=== PATIENT | male | born 1990 | race Caucasian/White ===

== ENCOUNTER 2018-10-08 13:19 | Emergency (ER) | payer OTHER ==
[~2018-10-08] VITALS: Ht 182.9 cm; Wt 74.8 kg
[~2018-10-08 13:19] MED LIST: CYMBALTA60 MG PO; MACROBID 100 M100 MG PO; ONDANSETRON ODT4 MG SL; PROMETHAZINE HC25 M1 PO
[2018-10-08] MEDS ORDERED: BACLOFEN10 MG PO (15:25)
[2018-10-08] MEDS ORDERED: KETOROLAC TROME10 MG PO (15:25)
== END 2018-10-08 15:34 | disposition home or self-care (01) ==
LOC: ED 13:19
DX: M99.01 Segmental and somatic dysfunction of cervical region (principal); F32.9 Major depressive disorder, single episode, unspecified; F17.200 Nicotine dependence, unspecified, uncomplicated; Z79.899 Other long term (current) drug therapy; V89.2XXA Person injured in unspecified motor-vehicle accident, traffic, initial encounter
CPT/HCPCS: 99283

== ENCOUNTER 2020-02-21 11:03 | Observation (INO) | payer OTHER ==
[~2020-02-21] VITALS: Ht 180.3 cm; Wt 90.7 kg
[~2020-02-21 11:03] MED LIST changes: +BACLOFEN10 MG PO; +KETOROLAC TROME10 MG PO
--- NOTE | 2020-02-21 16:49 | NUR ---
1640: PT ARRIVED VIA STRECHER. HE STATES HIS BREATHING FEELS "ALRIGHT" AND BETTER THAN IT HAS IN TWO WEEKS. VSS. PT ORIENTED TO HIS ROOM AND THE USE OF HIS CALL RESTREPO.
--- NOTE | 2020-02-21 16:53 | NUR ---
ASSESSMENT COMPLETED, HISTORY OBTAINED. SIGNIFICANT OTHER AT BEDSIDE. PATIENT DENIES PAIN AND OTHER NEEDS AT THIS TIME. CALL LIGHT IN REACH, BED RAILS UP X2.
--- NOTE | 2020-02-21 17:35 | NUR ---
MED REC COMPLETE
--- NOTE | 2020-02-21 18:13 | NUR ---
SPEECH SCREENED PATIENT; PT REPORTS BEING AT BASELINE. BASIC NEEDS/WANTS ABLE TO BE COMMUNICATED. FULL EVALUATION TO BE COMPLETED IF PT DEMONSTRATES DECLINE OR CHANGE IN STATUS; PT REFUSES EVALUATION AT THIS TIME D/T FUNCTIONAL COMMUNICATION ABILITIES INTACT.
--- NOTE | 2020-02-21 18:14 | NUR ---
INSTRUCTED ON USE OF INCENTIVE SPIROMETER. GOAL ON INCENTIVE SPIROMETER SET TO 1500, ENCOURAGED TO GET HIGHER IF ABLE. PATIENT DEMONSTRATES PROPER USE OF INCENTIVE SPIROMETER UP TO 2500 MULTIPLE TIMES. INFORMED TO TRY TO COMPLETE TREATMENT EVERY 1-2 HOURS A MINIMUM OF 10 TIMES. VERBALIZES UNDERSTANDING. SIGNIFICANT OTHER AT BEDSIDE ALSO EDUCATED ON IMPORTANCE OF PATIENT DEEP BREATHING.
--- NOTE | 2020-02-21 19:26 | NUR ---
SHIFT REPORT RECEIVED FROM ODESSA MIRELES. PT RESTING IN BED, WATCHING TV. S.O. AT BEDSIDE. ICE WATER PROVIDED. NO OTHER NEEDS AT THIS TIME. CALL LIGHT IN REACH.
--- NOTE | 2020-02-21 20:00 | NUR ---
SCHEDULED MED PROVIDED. IV CDI, WNL, FLUSHED WELL. NO NEEDS AT THIS TIME. CALL LIGHT IN REACH.
--- NOTE | 2020-02-21 20:08 | NUR ---
PATIENT RESTING IN BED, CALL LIGHT IN REACH. BED ELEVATED, PATIENT STATES HE PREFERRED IT TO BE ELEVATED. BED LOWERED FOR SAFETY PURPOSES. RN AT BEDSIDE.
--- NOTE | 2020-02-21 20:21 | NUR ---
DIALYSIS CHIEF EQUIPMENT TECHNICIAN ROUNDING NOTE. PT RESTING IN BED AWAKE WITH FRIEND AT BEDSIDE. FRIEND STATES THAT SHE PLANS TO STAY THE NIGHT, DISCUSSED COUCH AND LINENS AVAILBLE. UNDERSTANDING STATED. PT DENIES QUESTIONS OR CONCERNS AT THIS TIME. AGREES TO USE CALL LIGHT FOR NEEDS. WHITE BOARD UPDATED.
--- NOTE | 2020-02-21 21:02 | NUR ---
ASSESSMENT COMPLETED. RONCHI IN ALL LOBES. NO EDEMA NOTED. OCCASSIONAL DRY COUGH. IV WNL, CDI, FLUSHED WELL. NO OTHER NEEDS AT THIS TIME. CALL LIGHT IN REACH.
--- NOTE | 2020-02-21 22:30 | NUR ---
PT RESTING IN BED, WATCHING TV. S.O. IN ROOM. NO NEEDS AT THIS TIME. CALL LIGHT IN REACH.
--- NOTE | 2020-02-22 00:24 | NUR ---
PT RESTING IN BED, EYES CLOSED. RR EVEN, UNLABORED. CALL LIGHT IN REACH. S.O. IN ROOM.
--- NOTE | 2020-02-22 00:49 | NUR ---
PT COUGHING IN ROOM, SPITTING UP SMALL AMOUNT OF MUCOUS WITHOUT BLOOD. SPO2 98%. PT STATES HE IS SOB. RT CALL ED FOR ASSESSMENT AND BREATHING MEDICATION. CALL LIGHT IN REACH.
--- NOTE | 2020-02-22 02:14 | NUR ---
PATIENT RESTING IN BED, SIGNIFICANT OTHER IN ROOM. RN AT BEDSIDE.
--- NOTE | 2020-02-22 02:19 | NUR ---
SCHEDULED MED PROVIDED. PT RESTING IN BED, NO COUGHING RIGHT NOW. PT DENIES PAIN. IV WNL, CDI, FLUSHED WELL. RONCHI IN ALL LOBES. S.O. IN ROOM. ASSESSMENT COMPLETED. NO OTHER NEEDS AT THIS TIME. CALL LIGHT IN REACH.
--- NOTE | 2020-02-22 04:20 | NUR ---
PT RESTING IN BED, WATCHING TV. NO NEEDS AT THIS TIME. CALL LIGHT IN REACH.
--- NOTE | 2020-02-22 05:41 | NUR ---
PATIENT RESTING IN BED, AWAKES BRIEFLY FOR VITALS AND GOES BACK TO SLEEP. RN NOTIFIED OF NO NEW URINE OUTPUT AT THIS TIME. CALL LIGHT IN REACH.
--- NOTE | 2020-02-22 05:46 | NUR ---
PT RESTING IN BED, EYES CLOSED RR EVEN, UNLABORED. CALL LIGHT IN REACH.
--- NOTE | 2020-02-22 06:03 | NUR ---
PT SLEPT OFF AND ON THIS SHIFT. PT HAD SEVERAL EPISODES OF COUGHING WITH SMALL AMOUNTS OF YELLOW SPUTUM PRODUCED. PT TOLERATED MEDICATIONS WELL. PT DENIES PAIN. IV WNL, FLUSHED WELL. RONCHI IN ALL LOBES. SOB DURING COUGHING EPISODES, 1 TREATMENT RECEIVED FROM RT.
--- NOTE | 2020-02-22 07:52 | NUR ---
ORDERED HIS BREAKFAST AND ALSO HIS GIRLFRIENDS. SET HIM FOR A SHOWER. ALSO EMPTIED HIS URINAL. PATIENT IS TRYING TO SLEEP.
--- NOTE | 2020-02-22 08:35 | NUR ---
In room to hang IV antibiotic. Patient states antibiotic has been making him nauseous and states he is already nauseous this morning. Requests medication prior to administration of antibiotic.
--- NOTE | 2020-02-22 09:01 | NUR ---
Dr. Ortiz notified of patient complaint of nausea.
--- NOTE | 2020-02-22 09:24 | NUR ---
ASSESSMENT COMPLETED. TAKES MEDICATIONS VERBALIZES FEELING TIRED AT THIS TIME. ZOFRAN ADMINISTERED PRIOR TO INITIATING IV UNASYN AND PATIENT TAKING MUCINEX. ICE WATER PROVIDED SIGNIFICANT OTHER AT BEDSIDE. BOTH DENY OTHER NEEDS AT THIS TIME. CALL LIGHT IN REACH, BED RAILS UP X2.
--- NOTE | 2020-02-22 10:00 | NUR ---
PATIENT TOOK A SHOWER. INDEPENDENT. PATIENT WOULD LIKE TO SLEEP. WILL COME BACK LATER TO CHANGE BED LINENS.
[2020-02-22] MEDS ORDERED: PROAIR HFA8.5 GM INH (10:42)
[2020-02-22] MEDS ORDERED: AUGMENTIN 875-1 EACH PO (14:31)
[2020-02-22] MEDS ORDERED: NICOTINE PATCH1 EACH TD (14:32)
--- NOTE | 2020-02-22 14:39 | NUR ---
ASSESSMENT COMPLETED AT THIS TIME. NO CHANGES FROM THIS AM. CONTINUES ON ROOM AIR. NO SHORTNESS OF BREATH.
== END 2020-02-22 15:24 | disposition home or self-care (01) ==
LOC: ED 11:03 → MS 11:04
PROVIDERS: ADMIT Internal Medicine
DX: J85.0 Gangrene and necrosis of lung (principal); F17.210 Nicotine dependence, cigarettes, uncomplicated; Z71.6 Tobacco abuse counseling
CPT/HCPCS: 36415; 71260; 80053; 85025; 85651; 86038; 86140; 86431; 86703; 87070; 87205; 87327; 94640; 96365; 96366; 96375; 96376; 99285-25; 99406; G0378; J0295; J2405; Q9967

== ENCOUNTER 2020-06-23 14:49 | Inpatient (IN) | payer OTHER ==
[~2020-06-23] VITALS: Ht 180.3 cm; Wt 102.1 kg
--- OUTSIDE RECORDS SUMMARY | ~2020-06-23 | XMS | Encounter Summary ---
Demographics + + + | Address | [address] | | | [place] [address] | + + + | Home Phone | | + + + | Preferred Language | Unknown | + + + | Marital Status | Single | + + + | Congregational Affiliation | Unknown | + + + | Race | White | + + + | Ethnic Group | Not or | + + + Author + + + | Author | [facility] | | | and [place] | + + + | Organization | [facility] | | | and [place] | + + + | Address | Unknown | + + + | Phone | Unavailable | + + + Support + + +---------+ + | Name | Relationship | Address | Phone | + + +---------+ + | Marcos Morgan | ECON | Unknown | | + + +---------+ + Care Team Providers + +------+ + | Care Rabbit Dresser Name | Role | Phone | + +------+ + | Myrna Mejia MD | PCP | | + +------+ + Reason for Visit + + + | Reason | Comments | + + + | Follow-up | Virtual Visit | + + + Encounter Details +--------+ + + + + | Date | Type | Department | Care Team | Description | +--------+ + + + + | 03/31/ | Virtual | [facility] | Elodia Guerra MD | High risk medication | | 2019 | Office | HEMATOLOGY AND | [address] | use (Primary Dx); | | | Visit | ONCOLOGY [address] [place] | Mediastinal large | | | | [address] | [address] | B-cell lymphoma of | | | | [place] | | lymph nodes of | | | | [address] | | multiple regions | | | | [phone] | | (HCC) | +--------+ + + + + Social History + + + +--------+ + | Tobacco Use | Types | Packs/Day | Years | Date | | | | | Used | | + + + +--------+ + | Former Smoker | Cigarettes | 1 | 7 | Started: 02/24/2020 | + + + +--------+ + + +------+---+---+ | Smokeless Tobacco: | Chew | | | | Current User | | | | + +------+---+---+ + + | Comments: quit 02/22/2020 / chews 1 can tobacco/week | + + + + +---------+ + | Alcohol Use | Drinks/Week | oz/Week | Comments | + + +---------+ + | Not Currently | | | | + + +---------+ + + + + | Sex Assigned at | Date Recorded | | | | + + + | Not on file | | + + + documented as of this encounter Progress Notes Elodia Guerra MD - 03/31/2020 4:30 PM PDTFormatting of this note might be different from t he original. [facility] Hematology & Oncology Oncology Progress Note Patient Name: ASAD LONGO Date of : 1990 Age: 29 y.o. 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 Asad Longo is a pleasant 29 y.o. male with no significant past medical history who began experiencing cough, pleuritic chest pain, dyspnea on exertion and URI symptoms be ginning October 2019. He was initially treated with antibiotics by his PCP with minimal im provement of symptoms. CT scan of the chest on February 21, 2020 revealed a large cavitary lesi on with mediastinal and axillary lymphadenopathy . The patient also experienced an unintent ional 30 pound weight loss since September 2019. He was a smoker from 2012 approximately 1/2 to 1 pack/day through February 2020. The patient was referred to Dr. Tali Joseph of pulmonary medicine. She recommended a PET scan that was completed on March 16, 2020 revealing an FDG avid right upper lobe pulmon christoph mass measuring 6.0 x 5.7 cm with an SUV of 30.1. The right middle lobe appeared atelect atic secondary to compression of the bronchus from the large central mass. There was extens willis conglomerate lymphadenopathy noted throughout the mediastinum, bilateral hilar areas and bilateral axillary areas. For example, there was a superior left hilar lymph node measurin g 3.2 x 2.5 cm with an SUV of 26.4, conglomerate anterior mediastinal lymphadenopathy measur ing 3.3 x 5.1 cm with an SUV of 27.9, 2 FDG avid pericardial lymph nodes, a lateral pericard ial node and a subdiaphragmatic lymph node partially necrotic measuring 2.3 x 2.4 cm with an SUV of 23.4. There was conglomerate right supraclavicular lymph nodes, centrally necrotic measuring 2.3 x 3.1 cm with an SUV of 20.2, and a conglomerate left supraclavicular lymph no de measuring 1.9 x 2.2 cm with an SUV of 26.5. There was no adenopathy or visceral lesions within the abdomen and pelvis. COVID-19 testing on March 19, 2020 was negative. On March 20, 2020 the patient underwent excisional biopsy of a right deep cervical lymph nod e. Pathology revealed large atypical B lymphocytes was consistent with diffuse large B-cell lymphoma, positive for CD20, CD23, BCL 6, CD79a, and PAX 5. Ki-67 was 60%. The morphologi c and immunohistochemical findings were in favor of a primary mediastinal large B-cell lymph geovanna. Pathology was read by board-certified hematopathologists, Dr. Franko Davis and Dr. Gloria Lundberg. 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 Service was provided [id number] with the patient via interactive videoconferencing Coding will be based on Medical Decision Making. You have chosen to receive care through the use of telemedicine. Telemedicine enables healt h care providers at different locations to provide safe, effective and convenient care throu gh the use of technology. As with any health care service, there are risks associated with t he use of telemedicine, including equipment failure, poor image resolution and information s ecurity issues. Do you understand the risks and benefits of telemedicine as I have explained them to you? " Yes" Have your questions regarding telemedicine been answered? "Yes" Participant is currently at home Do you consent to the use of telemedicine in your medical care today? Yes. Last question, I need to confirm where are you physically located right now? Answer: Patient confirms they are located in a state where IElodia MD am licensed. The patient presents today utilizing telemedicine given the current coronavirus pandemic. Asad presents today utilizing telemedicine to discuss the results of his recent biopsy. A t today's visit, he feels well. He reports no new or unusual symptoms. He continues to hav e occasional shortness of breath and cough but improved from prior. He continues to report some fatigue. He has not lost any additional weight since his last visit. The patient has no other complaints today other than that listed in the review of systems. Medical History No Known Allergies Past Medical History: Diagnosis Date Chronic cough 2019 Chronic headaches 2 x's per month History of pneumonia Lymphoma involving lung (HCC) 2019 right lung mass Past Surgical History: Procedure Laterality Date LYMPH NODE BIOPSY Right 03/20/2020 Procedure: BIOPSY DEEP CERVICAL NODE; Surgeon: She Huang DO; Location: [facility] OR Family History Problem Relation Age of Onset Bone Cancer Other Lung cancer Paternal Grandfather Cancer Paternal Grandmother Social History Socioeconomic History Marital status: Single Spouse name: Not on file Number of children: Not on file Years of education: Not on file Highest education level: Not on file Occupational History Not on file Social Needs Financial resource strain: Not on file Food insecurity Worry: Not on file Inability: Not on file Transportation needs Medical: Not on file Non-medical: Not on file Tobacco Use Smoking status: Former Smoker Packs/day: 1.00 Years: 7.00 Pack years: 7.00 Types: Cigarettes Start date: 02/24/2020 Smokeless tobacco: Current User Types: Chew Tobacco comment: quit 02/22/2020 / chews 1 can tobacco/week Substance and Sexual Activity Alcohol use: Not Currently Drug use: Yes Frequency: 7.0 times per week Types: Marijuana Comment: edibles and smoking Sexual activity: Not on file Lifestyle Physical activity Days per week: Not on file Minutes per session: Not on file Stress: Not on file Relationships Social connections Talks on phone: Not on file Gets together: Not on file Attends gnosticism service: Not on file Active member of club or organization: Not on file Attends meetings of clubs or organizations: Not on file Relationship status: Not on file Intimate partner violence Fear of current or ex partner: Not on file Emotionally abused: Not on file Physically abused: Not on file Forced sexual activity: Not on file Other Topics Concern Not on file Social History Narrative Not on file Patient's medical history above reviewed and updated on 03/31/2020 Medications Current Outpatient Medications Medication Sig Dispense Refill albuterol (VENTOLIN HFA) 90 mcg/puff inhaler Inhale 2 puffs into the lungs every 6 hour s as needed for Wheezing. albuterol 2.5 mg/3 mL nebulizer solution benzonatate (TESSALON) 100 mg capsule Take 100 mg by mouth 3 times daily as needed for Cough. famotidine (PEPCID) 20 mg tablet Daily. HYDROcodone-acetaminophen (NORCO) 5-325 mg per tablet Take 1 tablet by mouth every 6 ho urs as needed for Pain. 30 tablet 0 naproxen (NAPROSYN) 500 mg tablet Take 500 mg by mouth 2 times daily (with breakfast & dinner). NICOTINE TD Place onto the skin. ondansetron (ZOFRAN ODT) 4 mg disintegrating tablet Take 1 tablet by mouth every 6 hour s as needed for Nausea. 20 tablet 0 ondansetron (ZOFRAN) 4 mg tablet 3 times daily. No current facility-administered medications for this visit. Facility-Administered Medications Ordered in Other Visits Medication Dose Route Frequency Provider Last Rate Last Dose albuterol 2.5 mg/3 mL nebulizer solution Medications reviewed and updated on 03/31/2020 Review of Systems Review of Systems Constitutional: Positive for fatigue. Negative for fever. HENT: Negative. Eyes: Negative for visual disturbance. Respiratory: Positive for cough and shortness of breath. Cardiovascular: Negative. Gastrointestinal: Negative. Endocrine: Negative for polydipsia and polyphagia. Genitourinary: Negative. Musculoskeletal: Negative. Skin: Negative. Neurological: Negative. Hematological: Positive for adenopathy (Bilateral cervical and axillary). Does not bruise/b leed easily. Psychiatric/Behavioral: Negative. Physical Exam There were no vitals taken for this visit. ECOG Performance Status: 0 Physical Exam Labs and Imaging No results found for this or any previous visit (from the past 24 hour(s)). Assessment Mr. Asad Longo is a pleasant 29 y.o. 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 PET scan on March 16, 2020 revealed a right upper lobe pulmonary mass measuring 6.0 x 5.7 cm with an SUV of 30.1, bilateral cerv ical, extensive conglomerate mediastinal, bilateral hilar, and bilateral axillary lymph lymp hadenopathy. There was also a subdiaphragmatic lymph node measuring 2.3 x 2.4 cm with an GAMING V of 23.4. I had a long discussion with Asad regarding the results of his pathology and once again hi s imaging studies that have been completed today I explained to him that his pathology is mo st consistent with a diffuse large B-cell lymphoma rather than Hodgkin lymphoma. The patient will need to undergo a bone marrow biopsy which can be arranged for prior to be ginning treatment. As the treatment for primary mediastinal B-cell lymphoma comprises inpat ient chemotherapy (R EPOCH), bone marrow biopsy can be done during his admission prior to his first cycle of chemotherapy. We discussed the logistics of, rational for, and possible complications it might arise from bone marrow biopsy done under anxiolysis. He agrees to pr oceed. He did admit to some anxiety over the procedure and is wondering whether this can be done with conscious sedation. If necessary, this will be arranged for with interventional radiology. The patient is still undecided regarding whether or not he wishes to consider fertility pre servation. He already has 2 children. He will call me with his decision regarding this. I explained to him that time is of the essence and that chemotherapy should be started RAN g iven the extent of his disease. He is already scheduled for Mediport to be placed tomorrow by interventional radiology. I discussed the rationale for, logistics of and common side effect profile of the R-EPOCH r egimen which include, but are not limited to, infusion related symptoms, tumor lysis syndrom e, skin reactions including Catracho-Gary syndrome, arrhythmias, myelosuppression, neutrope holly fever, increased risk of infections, mucositis, stomatitis, nausea and vomiting, anorexi a, diarrhea, bladder toxicity, hemorrhagic cystitis, renal toxicity, hepatotoxicity, alopeci a, cardiotoxicity, pulmonary toxicity, increased risk of secondary malignancies including AM L and MDS and bladder cancer, infertility, azoospermia, immunosuppression, SIADH, vesication , hyperpigmentation of nails, red-orange discoloration of the urine, allergic reactions, samantha ropathy, constipation, delay of gastric emptying, increase in serum glucose from prednisone, weight gain and increased appetite, among others. We discussed the side effect profile of filgrastim, pegfilgrastim and biosimilars which inc lude, but are not limited to myalgias, arthralgias, pain at injection site, transaminitis, f ever, allergic reactions, increased LDH, alkaline phosphatase, neutrophilia and splenic enla rgement and splenic rupture. The patient agreed to proceed forth. Plan At the end of today's discussion, the patient expressed understanding and willingness to pr oceed with the plan as outlined below: 1. He will get a Mediport placed tomorrow. 2. We will endeavor to begin him on chemotherapy RAN. Admission will be required for this . 3. Prescriptions for allopurinol, antiemetics, EMLA cream, prednisone and Bactrim DS were s ent to his pharmacy. Additional teaching will be provided by our general oncology nurse lior tolbert. 4. He will call me tomorrow with his decision regarding fertility preservation. 5. The patient was counseled on the signs and symptoms of an ominous hematologic/oncologic process, and he knows to call if these were to occur. 6. The patient was counseled on the signs and symptoms that may indicate progression/recurr ence of his cancer, and he knows to call if this were to occur. All the patient's questions were answered to his satisfaction. The patient is to call with any questions or concerns. Elodia Guerra MD [facility] Hematology & Oncology 03/31/2020 Portions of this chart may have been created with voice recognition software. Occasional wr mak-word or "sound-alike" substitutions may have occurred, even after review, due to the inh erent limitations of voice recognition software. Please read the chart carefully and recogni ze, using context, where these substitutions have occurred. Personal communication is reques akbar for any clarifications. documented in this encou nter Miscellaneous Notes Addendum Note - Elodia Guerra MD - 03/31/2020 4:30 PM PDT Addended by: ELODIA GUERRA on: 03/31/2020 06:03 PM Modules accepted: Orders documented in this enc ounter Plan of Treatment +--------+ + + + + | Date | Type | Specialty | Care Team | Description | +--------+ + + + + | 06/29/ | Appointment | Infusion Therapy | Elodia Guerra MD | | | 2019 | | | [address] | | | | | | [place] | | | | | | [phone] | | | | | | | | +--------+ + + + + | 06/29/ | Office | Oncology | Elodia Guerra MD | | | 2019 | Visit | | [address] | | | | | | [place] | | | | | | [address] | | | | | | | | | | | | Marilou Mcmullen, | | | | | | PUMP AND BLOWER OPERATOR [address] | | | | [address] | | | | | | [place] [address] | | | | | | [phone] | | | | | | | | +--------+ + + + + | 06/29/ | Appointment | Infusion Therapy | Elodia Guerra MD | | | 2019 | | | [address] | | | | | | [place] | | | | | | [address] | | | | | | | | +--------+ + + + + | 07/14/ | Office | Otolaryngology | She Huang | | | 2019 | Visit | | DO Sophia Canela | | | | | | [address] | | | | | | [place] [address] | | | | | | [phone] | | | | | | | | +--------+ + + + + | 07/20/ | Appointment | Infusion Therapy | Elodia Guerra MD | | | 2019 | | | [address] | | | | | | [place] | | | | | | [address] | | | | | | | | +--------+ + + + + | 07/20/ | Office | Oncology | Elodia Guerra MD | | | 2019 | Visit | | [address] | | | | | | [place] | | | | | | [address] | | | | | | | | +--------+ + + + + | 07/20/ | Appointment | Infusion Therapy | Elodia Guerra MD | | | 2019 | | | [address] | | | | | | [place] | | | | | | [address] | | | | | | | | +--------+ + + + + | 08/17/ | Appointment | Infusion Therapy | Elodia Guerra MD | | | 2019 | | | [address] | | | | | | [place] | | | | | | [address] | | | | | | | | +--------+ + + + + | 08/17/ | Office | Oncology | Elodia Guerra MD | | | 2020 | Visit | | [address] | | | | | | [place] | | | | | | [address] | | | | | | | | +--------+ + + + + documented as of this encounter Visit Diagnoses + + | Diagnosis | + + | High risk medication use - Primary Encounter for long-term (current) use of other | | medications | + + | 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
--- OUTSIDE RECORDS SUMMARY | ~2020-06-23 | XMS | Encounter Summary ---
Demographics + + + | Address | [address] | | | [place] [address] | + + + | Home Phone | | + + + | Preferred Language | Unknown | + + + | Marital Status | Single | + + + | Lutheran Affiliation | Unknown | + + + | Race | White | + + + | Ethnic Group | Not or | + + + Author + + + | Author | [facility] | | | and [place] | + + + | Organization | [facility] | | [...] Team Providers + +------+ + | Care Auction Assistant Name | Role | Phone | + +------+ + | Myrna Mejia MD | PCP | | + +------+ + Encounter Details +--------+ + + + + | Date | Type | Department | Care Team | Description | +--------+ + + + + | 04/03/ | Orders Only | [facility] | Wilton Jeff MD | Mediastinal large | | 2019 | | HEMATOLOGY AND | [address] | B-cell lymphoma of | | | | ONCOLOGY [address] | [place], [place] | lymph nodes of | | | | [address] | [address] | multiple regions | | | | [place], [place] | | (HCC) (Primary Dx) | | | | [address] | | | | | | [phone] | | | +--------+ + + + + Social [...] + + documented as of this encounter Plan of Treatment +--------+ + + + + | Date | Type | Specialty | Care Team | Description | +--------+ + + + + | 06/29/ | Appointment | Infusion Therapy | Wilton Jeff MD | | | 2019 | | | [address] | | | | | | [place] | | | | | | [address] | | | | | | | | +--------+ + + + + | 06/29/ | Office | Oncology | Wilton Jeff MD | | | 2019 | Visit | | [address] | | | | | | [place] | | | | | | [address] | | | | | | | | | | | | Marilou Mcmullen, | | | | | | PRINTING SCREEN ASSEMBLER [address] | | | | | | [address] | | | | | | [place] [address] | | | | | | [phone] | | | | | | | | +--------+ + + + + | 06/29/ | Appointment | Infusion Therapy | Wilton Jeff MD | | | 2019 | | | [address] | | | | | | [place] | | | | | | [address] | | | | | | | | +--------+ + + + + | 07/14/ | Office | Otolaryngology | She Huang | | | 2019 | Visit | | DO Sophia Canela | | | | | | [place] [address] | | | | | | [place] [address] | | | | | | [phone] | | | | | | | | +--------+ + + + + | 07/20/ | Appointment | Infusion Therapy | Wilton Jeff MD | | | 2019 | | | [address] | | | | | | [place] | | | | | | [address] | | | | | | | | +--------+ + + + + | 07/20/ | Office | Oncology | Wilton Jeff MD | | | 2019 | Visit | | [address] | | | | | | [place] | | | | | | [address] | | | | | | | | +--------+ + + + + | 07/20/ | Appointment | Infusion Therapy | Wilton Jeff MD | | | 2019 | | | [address] | | | | | | [place] | | | | | | [address] | | | | | | | | +--------+ + + + + | 08/17/ | Appointment | Infusion Therapy | Wilton Jeff MD | | | 2019 | | | [address] | | | | | | [place] | | | | | | [address] | | | | | | | | +--------+ + + + + | 08/17/ | Office | Oncology | Wilton Jeff MD | | | 2020 | Visit | | [address] | | | | | | [place] | | | | | | [address] | | | | | | | | +--------+ + + + + documented as of this encounter Visit Diagnoses + + | Diagnosis | + + | 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
--- OUTSIDE RECORDS SUMMARY | ~2020-06-23 | XMS | Encounter Summary ---
Demographics + + + | Address | [address] | | | [place] [address] | + + + | Home Phone | | + + + | Preferred Language | Unknown | + + + | Marital Status | Single | + + + | Anabaptism Affiliation | Unknown | + + + | Race | White | + + + | Ethnic Group | Not or | + + + Author + + + | Author | [facility] | | | and [place] | + + + | Organization | [facility] | | | and [...] Team Providers + +------+ + | Care Recruiting Intern Name | Role | Phone | + +------+ + PCP | Unavailable | + +------+ + Encounter Details +--------+ + + + + | Date | Type | Department | Care Team | Description | +--------+ + + + + | 03/04/ | Imaging | [facility] | Provider, | | | 2019 | Exam | [facility] | MD [address] | | | | | IM[address] | [address] | | | | | [address] | [place] [address] | | | | | [place] [address] | | | | | | [phone] | | | +--------+ + + + + Social History + +-------+ +--------+------+ | Tobacco Use | Types | Packs/Day | Years | Date | | | | | Used | | + +-------+ +--------+------+ | Never Assessed | | | | | + +-------+ +--------+------+ + + + | Sex Assigned at [...] [place] | | | | | | [address] | | | | | | | | +--------+ + + + + | 06/29/ | Office | Oncology | Wilton Jeff MD | | | 2019 | Visit | | [address] | | | | | | [place] | | | | | | [address] | | | | | | | | | | | | Marilou Mcmullen, | | | | | | [employer] [address] | | | | | [address] | | | | | | [place] [address] | | | | | | [phone] | | | | | | | | +--------+ + + + + | 06/29/ | Appointment | Infusion Therapy | Wilton Jeff MD | | | 2019 | | | [address] | | | | | | [place] | | | | | | [address] | | | | | | | | +--------+ + + + + | 07/14/ | Office | Otolaryngology | She Huang | | | 2019 | Visit | | DO Sophia Canela | | | | | | [place] [address] | | | | | | [place] [address] | | | | | | [phone] | | | | | | | | +--------+ + + + + | 07/20/ | Appointment | Infusion Therapy | Wilton Jeff MD | | | 2019 | | | [address] | | | | | | [place] | | | | | | [address] | | | | | | | | +--------+ + + + + | 07/20/ | Office | Oncology | Wilton Jeff MD | | | 2019 | Visit | | [address] | | | | | | [place] | | | | | | [address] | | | | | | | | +--------+ + + + + | 07/20/ | Appointment | Infusion Therapy | Wilton Jeff MD | | | 2019 | | | [address] | | | | | | [place] | | | | | | [address] | | | | | | | | +--------+ + + + + | 08/17/ | Appointment | Infusion Therapy | Wilton Jeff MD | | | 2019 | | | [address] | | | | | | [place] | | | | | | [address] | | | | | | | | +--------+ + + + + | 08/17/ | Office | Oncology | Wilton Jeff MD | | | 2019 | Visit | | [address] | | | | | | [place], [place] | | | | | | [address] | | | | | | | | +--------+ + + + + documented as of this encounter Procedures + +--------+ + + + | Procedure Name | Priori | Date/Time | Associated Diagnosis | Comments | | | ty | | | | + +--------+ + + + | XR CHEST 2 VIEWS | Routin | 02/20/2020 | | Results for this | | | e | 12:00 AM | | procedure are in the | | | | PDT | | results section. | + +--------+ + + + documented in this encounter Results XR Chest 2 Vws (02/20/2020 12:00 AM PDT) + + | Specimen | + + | | + + + + + | Narrative | Performed At | + + + | External films for comparison only | [facility] | | | | | No results will be in the chart. | | + + + + +---------+ + + | Performing | Address | City/State/Zipcode | Phone Number | | Organization | | | | + +---------+ + + | [facility] | | | | + +---------+ + + documented in this encounter Visit Diagnoses Not on filedocumented in this encounter"
--- OUTSIDE RECORDS SUMMARY | ~2020-06-23 | XMS | Encounter Summary ---
Demographics + + + | Address | [address] | | | [place] [address] | + + + | Home Phone | | + + + | Preferred Language | Unknown | + + + | Marital Status | Single | + + + | Christian Affiliation | Unknown | + + + | Race | White | + + + | Ethnic Group | Not or | + + + Author + + + | Author | [facility] | | | and [place] | + + + | Organization | [facility] | | | [...] Team Providers + +------+ + | Care Secretary Of Police Name | Role | Phone | + +------+ + | Myrna Mejia MD | PCP | | + +------+ + Encounter Details +--------+ + + + + | Date | Type | Department | Care Team | Description | +--------+ + + + + | 06/08/ | Orders Only | [facility] | Wilton Jeff MD | | | 2020 | | HEMATOLOGY AND | [address] | | | | | ONCOLOGY [address] | [place] | | | | | [address] | [address] | | | | | [place] | | | | | | [address] | | | | | | [phone] | | | +--------+ + + + [...] Tobacco: | Chew | | | | Former User | | | | + +------+---+---+ [...] + + documented as of this encounter Functional Status + + + + | Functional Status | Response | Date of Assessment | + + + + | Are you deaf or do you have serious | No | 05/24/2020 | | difficulty hearing? | | | + + + + | Are you blind or do you have serious | No | 05/24/2020 | | difficulty seeing, even when wearing | | | | glasses? | | | + + + + | Do you have serious difficulty walking or | No | 05/24/2020 | | climbing stairs? (5 years old or older) | | | + + + + | Do you have difficulty dressing or bathing? | No | 05/24/2020 | | (5 years old or older) | | | + + + + | Because of a physical, mental, or emotional | No | 05/24/2020 | | condition, do you have difficulty doing | | | | errands alone such as visiting a doctor's | | | | office or shopping? [15 years old or | | | | older)] | | | + + + + + + + + | Cognitive Status | Response | Date of Assessment | + + + + | Because of a physical, mental, or emotional | No | 05/24/2020 | | condition, do you have serious difficulty | | | | concentrating, remembering, or making | | | | decisions? (5 years old or older) | | | + + + + documented as of [...] [place] | | | | | | [address] | | | | | | | | +--------+ + + + + | 06/29/ | Office | Oncology | Wilton Jeff MD | | | 2019 | Visit | | [address] | | | | | | [place] | | | | | | [address] | | | | | | | | | | | | Marilou Mcmullen, | | | | | | ONLINE MARKETER [address] | | | | | | [address] | | | | | | [place] [address] | | | | | | [phone] | | | | | | | | +--------+ + + + + | 06/29/ | Appointment | Infusion Therapy | Wilton Jeff MD | | | 2019 | | | [address] | | | | | | [place] | | | | | | [address] | | | | | | | | +--------+ + + + + | 07/14/ | Office | Otolaryngology | She Huang | | | 2019 | Visit | | DO Sophia Canela | | | | | | [place] [address] | | | | | | [place] [address] | | | | | | [phone] | | | | | | | | +--------+ + + + + | 07/20/ | Appointment | Infusion Therapy | Wilton Jeff MD | | | 2019 | | | [address] | | | | | | [place] | | | | | | [address] | | | | | | | | +--------+ + + + + | 07/20/ | Office | Oncology | Wilton Jeff MD | | | 2019 | Visit | | [address] | | | | | | [place] | | | | | | [address] | | | | | | | | +--------+ + + + + | 07/20/ | Appointment | Infusion Therapy | Wilton Jeff MD | | | 2019 | | | [address] | | | | | | [place] | | | | | | [address] | | | | | | | | +--------+ + + + + | 08/17/ | Appointment | Infusion Therapy | Wilton Jeff MD | | | 2019 | | | [address] | | | | | | [place] | | | | | | [address] | | | | | | | | +--------+ + + + + | 08/17/ | Office | Oncology | Wilton Jeff MD | | | 2020 | Visit | | [address] | | | | | | [place] | | | | | | [address] | | | | | | | | +--------+ + + + + documented as of this encounter Visit Diagnoses Not on filedocumented in this encounter"
--- OUTSIDE RECORDS SUMMARY | ~2020-06-23 | XMS | Encounter Summary ---
Demographics + + + | Address | [address] | | | [place] [address] | + + + | Home Phone | | + + + | Preferred Language | Unknown | + + + | Marital Status | Single | + + + | Restorationist Affiliation | Unknown | + + + | Race | White | + + + | Ethnic Group | Not or | + + + Author + + + | Author | [facility] | | | and [place] | + + + | Organization | [facility] | | | [...] Team Providers + +------+ + | Care Gaming Host Name | Role | Phone | + +------+ + | Myrna Mejia MD | PCP | | + +------+ + Reason for Visit + + + | Reason | Comments | + + + | Chemotherapy | | + + + Treatment/Therapy Plan (Routine) + +--------+ + + + + | Status | Reason | Specialty | Diagnoses / | Referred By | Referred To | | | | | Procedures | Contact | Contact | + +--------+ + + + + | Authorized | | Infusion | Diagnoses | Jeff, | Hong Ho | | | | Therapy | Diffuse | Wilton, MD | Infusion | | | | | large B-cell | [address] | | | | | lymphoma of | [address] | | | | | lymph nodes | AVE | [place], | | | | | of multiple | [place], | [place] [address] | | | | | regions | [place] [address] | Phone: | | | | | (HCC) | Phone: | [phone] | | | | | Procedures | [phone] | Fax: | | | | | NM | Fax: | [phone] | | | | | VINCRISTINE | [phone] | | | | | | SULFATE 1 MG | | | | | | | INJ NM | | | | | | | DOXORUBICIN | | | | | | | HCL | | | | | | | INJECTION, | | | | | | | 10 MG NM | | | | | | | CYCLOPHOSPHA | | | | | | | MIDE 100 MG | | | | | | | INJ NM | | | | | | | ETOPOSIDE | | | | | | | INJECTION, | | | | | | | 10 MG NM | | | | | | | PALONOSETRON | | | | | | | HCL, 25 MCG | | | | | | | NM | | | | | | | INJECTION, | | | | | | | UDENYCA 0.5 | | | | | | | MG NM INJ | | | | | | | TRUXIMA 10 | | | | | | | MG [id number] - | | | | | | | NM INJ | | | | | | | TRUXIMA 10 | | | | | | | MG- | | | | | | | RITUXIMAB-ab | | | | | | | bs [id number] - | | | | | | | NM | | | | | | | VINCRISTINE | | | | | | | SULFATE 1 MG | | | | | | | INJ [id number] | | | | | | | - NM | | | | | | | DOXORUBICIN | | | | | | | HCL | | | | | | | INJECTION, | | | | | | | 10 MG- DOXO | | | | | | | [id number] - NM | | | | | | | | | | | | | | CYCLOPHOSPHA | | | | | | | MIDE 100 MG | | | | | | | INJ- CYTOXAN | | | | | | | [id number] - | | | | | | | NM ETOPOSIDE | | | | | | | INJECTION, | | | | | | | 10 MG [id number] | | | | | | | - NM | | | | | | | INJECTION, | | | | | | | UDENYCA 0.5 | | | | | | | MG [id number] - | | | | | | | NM | | | | | | | PALONOSETRON | | | | | | | HCL, 25 | | | | | | | MCG- ALOXI | | | + +--------+ + + + + Encounter Details +--------+ + + + + | Date | Type | Department | Care Team | Description | +--------+ + + + + | 05/18/ | Hospital | [facility] | Wilton Jeff MD | Diffuse large B-cell | | 2019 | Encounter | HEMATOLOGY AND | [address] | lymphoma of lymph | | | | ONCOLOGY INFUSIONS | [place], [place] | nodes of multiple | | | | [address] | [address] | regions (HCC) | | | | [address]VE [place], [place] | | (Primary Dx) | | | | [address] | Felipa Frazier | | | | | [phone] | [facility] | | +--------+ + + + + [...] do you have serious | No | 2020 | | difficulty hearing? | | | + + + + | Are you blind or do you have serious | No | 2020 | | difficulty seeing, even when wearing | | | | glasses? | | | + + + + | Do you have serious difficulty walking or | No | 2020 | | climbing stairs? (5 years old or older) | | | + + + + | Do you have difficulty dressing or bathing? | No | 2020 | | (5 years old or older) | | | + + + + | Because of a physical, mental, or emotional | No | 2020 | | condition, do you have difficulty [...] physical, mental, or emotional | No | 2020 | | condition, do you have serious difficulty | | | | concentrating, remembering, or making | | | | decisions? (5 years old or older) | | | + + + + documented as of this encounter Discharge Instructions Patient Instructions Felipa Frazier, [facility] - 05/18/2020 10:05 AM PDT Rituximab injection Brand Names: Rituxan, RUXIENCE What is this medicine? RITUXIMAB (ri TUX i mab) is a monoclonal antibody. It is used to treat certain types of can cer like non-Hodgkin lymphoma and chronic lymphocytic leukemia. It is also used to treat rhe umatoid arthritis, granulomatosis with polyangiitis (or Mansoor's granulomatosis), microscop ic polyangiitis, and pemphigus vulgaris. How should I use this medicine? This medicine is for infusion into a vein. It is administered in a hospital or clinic by a specially trained health eye care professional. A special MedGuide will be given to you by the pharmacist with each prescription and refill . Be sure to read this information carefully each time. Talk to your memorial mason regarding the use of this medicine in children. This medicine is not approved for use in children. What side effects may I notice from receiving this medicine? Side effects that you should report to your doctor or health eye care professional as soon as p ossible: allergic reactions like skin rash, itching or hives; swelling of the face, lips, or tong ue breathing problems chest pain changes in vision diarrhea headache with fever, neck stiffness, sensitivity to light, nausea, or confusion fast, irregular heartbeat loss of memory low blood counts - this medicine may decrease the number of white blood cells, red blood cells and platelets. You may be at increased risk for infections and bleeding. mouth sores problems with balance, talking, or walking redness, blistering, peeling or loosening of the skin, including inside the mouth signs of infection - fever or chills, cough, sore throat, pain or difficulty passing uri ne signs and symptoms of kidney injury like trouble passing urine or change in the amount o f urine signs and symptoms of liver injury like dark yellow or brown urine; general ill feeling or flu-like symptoms; light-colored stools; loss of appetite; nausea; right upper belly pain ; unusually weak or tired; yellowing of the eyes or skin signs and symptoms of low blood pressure like dizziness; feeling faint or lightheaded, f alls; unusually weak or tired stomach pain swelling of the ankles, feet, hands unusual bleeding or bruising vomiting Side effects that usually do not require medical attention (report to your doctor or health eye care professional if they continue or are bothersome): headache joint pain muscle cramps or muscle pain nausea tiredness What may interact with this medicine? cisplatin live virus vaccines What if I miss a dose? It is important not to miss a dose. Call your doctor or health eye care professional if you are unable to keep an appointment. Where should I keep my medicine? This drug is given in a hospital or clinic and will not be stored at home. What should I tell my health care provider before I take this medicine? They need to know if you have any of these conditions: heart disease infection (especially a virus infection such as hepatitis B, chickenpox, cold sores, or herpes) immune system problems irregular heartbeat kidney disease low blood counts, like low white cell, platelet, or red cell counts lung or breathing disease, like asthma recently received or scheduled to receive a vaccine an unusual or allergic reaction to rituximab, other medicines, foods, dyes, or preservat yumi or trying to get breast-feeding What should I watch for while using this medicine? Your condition will be monitored carefully while you are receiving this medicine. You may n eed blood work done while you are taking this medicine. This medicine can cause serious allergic reactions. To reduce your risk you may need to marzena e medicine before treatment with this medicine. Take your medicine as directed. In some patients, this medicine may cause a serious brain infection that may cause . I f you have any problems seeing, thinking, speaking, walking, or standing, tell your healthca re professional right away. If you cannot reach your healthcare professional, urgently seek other source of medical care. Call your doctor or health eye care professional for advice if you get a fever, chills or sore throat, or other symptoms of a cold or flu. Do not treat yourself. This drug decreases your body's ability to fight infections. Try to avoid being around people who are sick. Do not become while taking this medicine or for at least 12 months after stopping it. Women should inform their doctor if they wish to become or think they might be . There is a potential for serious side effects to an unborn child. Talk to your [facility] eye care professional or pharmacist for more information. Do not breast-feed an infant while taking this medicine or for at least 6 months after stopping it. NOTE:This sheet is a summary. It may not cover all possible information. If you have questi ons about this medicine, talk to your doctor, pharmacist, or health care provider. Copyright 2020 [employer] documented in this encounter Medications at Time of Discharge + + + +---------+ + + | Medication | Sig | Dispensed | Refills | Start | End Date | | | | | | Date | | + + + +---------+ + + | acetaminophen | Take 1,000 mg by | | 0 | | | | (TYLENOL) 500 mg | mouth every 6 hours | | | | | | tablet | as needed for Pain. | | | | | + + + +---------+ + + | acyclovir | Take 4 capsules by | 240 | 5 | 04/13/20 | | | (ZOVIRAX) 200 mg | mouth 2 times daily. | capsule | | 20 | | | capsuleIndications: | Indications: Herpes | | | | | | HERPES ZOSTER | Zoster Prevention | | | | | | PREVENTION IN | in Immunocompromised | | | | | | IMMUNOCOMPROMISED | | | | | | + + + +---------+ + + | aluminum & | Swish and spit 15 | 600 mL | 2 | 04/13/20 | | | magnesium | mLs every 4 hours as | | | 20 | | | hydroxide-simethicon | needed for Sore | | | | | | [id number] | Throat. | | | | | | docaine | | | | | | + + + +---------+ + + | benzonatate | Take 100 mg by mouth | | 0 | | | | (TESSALON) 100 mg | 3 times daily as | | | | | | capsule | needed for Cough. | | | | | + + + +---------+ + + | | Swish and spit 10 | 240 mL | 1 | 04/13/20 | | | diphenhydramine-hydr | mLs 4 times daily. | | | 20 | | | ocortisone-nystatin | | | | | | | (DUKES MOUTHWASH) | | | | | | | suspensionIndication | | | | | | | s: Large B-cell | | | | | | | lymphoma (HCC) | | | | | | + + + +---------+ + + | | Apply generously to | 30 g | 11 | 04/02/20 | | | lidocaine-prilocaine | port site and cover | | | 20 | | | (EMLA) | with tegaderm or | | | | | | creamIndications: | saran wrap 1 hour | | | | | | Mediastinal large | prior to chemo.. | | | | | | B-cell lymphoma of | | | | | | | lymph nodes of | | | | | | | multiple regions | | | | | | | (HCC) | | | | | | + + + +---------+ + + | NICOTINE TD | Place onto the skin. | | 0 | | | + + + +---------+ + + | ondansetron | Take 1 tablet by | 20 | 0 | 03/20/20 | | | (ZOFRAN ODT) 4 mg | mouth every 6 hours | tablet | | 20 | | | disintegrating | as needed for | | | | | | tablet | Nausea. | | | | | + + + +---------+ + + | allopurinol | Take 1 tablet by | 10 | 0 | 04/14/20 | | | (ZYLOPRIM) 300 mg | mouth Daily. | tablet | | 20 | 0 | | tablet | | | | | | + + + +---------+ + + | | Take 1 tablet by | 14 | 0 | 05/18/20 | | | amoxicillin-clavulan | mouth 2 times daily. | tablet | | 20 | 0 | | ate (AUGMENTIN) | | | | | | | 875-125 mg per | | | | | | | tablet | | | | | | + + + +---------+ + + | prochlorperazine | Take 1 tablet by | 30 | 11 | 04/02/20 | | | 10 mg | mouth every 6 hours | tablet | | 20 | 0 | | tabletIndications: | as needed | | | | | | Mediastinal large | (Nausea/Vomiting). | | | | | | B-cell lymphoma of | | | | | | | lymph nodes of | | | | | | | multiple regions | | | | | | | (HCC) | | | | | | + + + +---------+ + + documented as of this encounter Progress Notes Felipa Frazier RN - 05/18/2020 9:45 AM PDTINFUSION: C3, D0 of truxima. Pt seen by ankita menchaca today and cleared for tx. Scheduled for in-pt epoch this week. Pt confirms he had ud enyca injection on 05/06 in [place]. Rituximab started at 100mg/hr and titrated up by 100mg q30min. Pt tolerated well. PATIENT EDUCATION: Pt instructed in possible side effects and when to call for concerns. C/ o some intermittent constipation and nausea that are currently well controlled. Was given ab o rx by provider today d/t tooth infection that started as a mouth sore. CHEMOTHERAPY CHECK: Pt's orders/protocol verified, along with Ht and Wt and BSA rechecked, doses reverified, al l with second RN ( Linda ) before releasing to Pharmacy. Labs within parameters for treatme nt. VSS Distress Survey completed. All chemo Drug (s) checked for accurate color and clarity and no precipitate was noted. Pt tolerated tx well. Reinforced calling for any concerns or questions. [facility] with copy of labs and calendar for next appointment. NEXT APPOINTMENT: Pt advised to contact hospital scheduling to confirm his appt time and date as he states he thought it was in two days and was told by provider it is tomorrow. Pt states understanding and agreement with plan. Faxed orders for pt injection to Dr. Mejia's office as per note on snapshot of pt chart. Ca lled office and confirmed fax was received and in provider's box for signing. Advised pt to call [facility] directly if he does not receive a call for scheduling. Messaged measuring clerk t o remove pt appt here. Jun 08 9:30 AM: IVT LAB DRAW with [facility] LAB DRAW in [facility] INFUSION SUPPORT SERVICES 10:15 AM: Office Visit Extended Appointment starts at 10:30 AM with Wilton Jeff MD in [facility] HEMATOLOGY AND ONCOLOGY 11:00 AM: Onc Infusion with FREDERIC CHAIR 19 in [facility] HEMATOLOGY AND ONCOLOGY INFUSIONS documented in th is encounter Miscellaneous Notes Addendum Note - Felipa Frazier RN - 05/18/2020 3:21 PM PDT Encounter addended by: Joseph Frazier RN on: 05/18/2020 3:21 PM Actions taken: Specialty comments modified documented in this encounter Plan of Treatment +--------+ + + + + | Date | Type | Specialty | Care Team | Description | +--------+ + + + + | 06/29/ | Appointment | Infusion Therapy | Wilton Jeff MD | | 2019 | | | [address] | | | | | | [place] | | | | | | [address] | | | | | | | | +--------+ + + + + | 06/29/ | Office | Oncology | Wilton Jeff MD | | | 2019 | Visit | | [address] | | | | | | [place] | | | | | | [address] | | | | | | | | | | | | Marilou Mcmullen, | | | | | | CEMENTING MACHINE OPERATOR [address] | | | | | | [address] | | | | | | [place] [address] | | | | | | [phone] | | | | | | | | +--------+ + + + + | 06/29/ | Appointment | Infusion Therapy | Wilton Jeff MD | | | 2019 | | | [address] | | | | | | [place] | | | | | | [address] | | | | | | | | +--------+ + + + + | 07/14/ | Office | Otolaryngology | She Huagn | | | 2019 | Visit | | DO Sophia Canela | | | | | | [address] | | | | | | [place] [address] | | | | | | [phone] | | | | | | | | +--------+ + + + + | 07/20/ | Appointment | Infusion Therapy | Wilton Jeff MD | | | 2019 | | | [address] | | | | | | [place] | | | | | | [address] | | | | | | | | +--------+ + + + + | 07/20/ | Office | Oncology | Wilton Jeff MD | | | 2019 | Visit | | [address] | | | | | | [place] | | | | | | [address] | | | | | | | | +--------+ + + + + | 07/20/ | Appointment | Infusion Therapy | Wilton Jeff MD | | | 2019 | | | [address] | | | | | | [place] | | | | | | [address] | | | | | | | | +--------+ + + + + | 08/17/ | Appointment | Infusion Therapy | Wilton Jeff MD | | | 2019 | | | [address] | | | | | | [place] | | | | | | [address] | | | | | | | | +--------+ + + + + | 08/17/ | Office | Oncology | Wilton Jeff MD | | | 2019 | Visit | | [address] | | | | | | [place] | | | | | | [address] | | | | | | | | +--------+ + + + + documented as of this encounter Visit Diagnoses + + | Diagnosis | + + | 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 Administered Medications + +--------+ +--------+------+------+ | Medication Order | MAR | Action | Dose | Rate | Site | | | Action | Date | | | | + +--------+ +--------+------+------+ | acetaminophen (TYLENOL) tablet | Given | 05/18/20 | 650 mg | | | | 650 mg 650 mg, Oral, ONCE, Mon | | 20 10:15 | | | | | 05/18/20 at 1025, For 1 dose, Give | | AM PDT | | | | | 30 minutes prior to riTUXimab., | | | | | | + +--------+ +--------+------+------+ +---+---+ | | | +---+---+ + +---------+ +-------+-------+---+ | diphenhydrAMINE (BENADRYL) 50 | New Bag | 05/18/20 | 50 mg | 204 | | | mg in sodium chloride 0.9% 50 mL | | 20 10:28 | | mL/hr | | | IVPB 50 mg, Intravenous, | | AM PDT | | | | | Administer over 15 Minutes, ONCE, | | | | | | | 05/18/20 at 1025, For 1 dose | | | | | | + +---------+ +-------+-------+---+ +---+---+ | | | +---+---+ + +---------+ +-------+---+---+ | famotidine (PEPCID) 20-0.9 | New Bag | 05/18/20 | 20 mg | | | | MG/50ML-% IVPB 20 mg 20 mg, | | 20 10:15 | | | | | Intravenous, Administer over 30 | | AM PDT | | | | | Minutes, ONCE, 05/18/20 at | | | | | | | 1025, For 1 dose | | | | | | + +---------+ +-------+---+---+ +---+---+ | | | +---+---+ + +-------+ +-------+---+---+ | heparin 100 units/mL flush | Given | 05/18/20 | 500 | | | | injection 500 Units 500 Units (5 | | 20 2:31 | Units | | | | mL), Intracatheter, PRN, Line | | PM PDT | | | | | Care, Starting 05/18/20 at | | | | | | | 0955 | | | | | | + +-------+ +-------+---+---+ +---+---+ | | | +---+---+ + +---------+ +---------+-------+---+ | palonosetron (ALOXI) 0.25 mg, | New Bag | 05/18/20 | 0.25 mg | 240 | | | dexamethasone (DECADRON) 20 mg in | | 20 10:50 | | mL/hr | | | sodium chloride 0.9% 50 mL IVPB | | AM PDT | | | | | 0.25 mg, Intravenous, Administer | | | | | | | over 15 Minutes, ONCE, Mon | | | | | | | 05/18/20 at 1025, For 1 dose, | | | | | | | Administer 30 minutes prior to | | | | | | | chemotherapy., | | | | | | + +---------+ +---------+-------+---+ +---+---+ | | | +---+---+ + +---------+ +--------+ +---+ | riTUXimab-abbs (TRUXIMA) 800 mg | New Bag | 05/18/20 | 800 mg | 72 mL/hr | | | in sodium chloride 0.9% 580 mL | | 20 11:15 | | | | | infusion 800 mg (rounded from | | AM PDT | | | | | 783.75 mg = 375 mg/m2 | | | | | | | 2.09 m2 Treatment plan recorded | | | | | | | BSA), Intravenous, ONCE, Mon | | | | | | | 05/18/20 at 1025, For 1 dose, | | | | | | | Initial infusion: Start at 50 | | | | | | | mg/hr. If no reaction, increase | | | | | | | by 50 mg/hr increments every 30 | | | | | | | min, to a maximum of 400 mg/hour. | | | | | | | Standard subsequent infusions | | | | | | | (if tolerated initial): Start at | | | | | | | 100 mg/hr. If no reaction, | | | | | | | increase by 100 mg/hr increments | | | | | | | every 30 min, to a maximum of 400 | | | | | | | mg/hour. If reaction occurs, | | | | | | | stop infusion. If reaction | | | | | | | abates, restart infusion at 50% | | | | | | | of previous rate. Accelerated 90 | | | | | | | minute infusion rate: Starting | | | | | | | with 2nd dose, If no prior | | | | | | | infusion reaction, rituximab | | | | | | | infusion rate should be 20% of | | | | | | | the total dose infused over 30 | | | | | | | minutes and then the remaining | | | | | | | 80% of the total dose infused | | | | | | | over 60 minutes. [id number] Bag | | | | | | | conc: 1.38 mg/mL @ 50mg/hr | | | | | | | rate= 36 mL/hr @ 100mg/hr rate= | | | | | | | 72 mL/hr @ 400mg/hr rate= 290 | | | | | | | ml/hr, | | | | | | + +---------+ +--------+ +---+ +---+---+ | | | +---+---+ + +---------+ +---------+ +---+ | sodium chloride 0.9% (NS) bolus | New Bag | 05/18/20 | 250 mLs | 55 mL/hr | | | 250 mL 250 mL, Intravenous, | | 20 10:12 | | | | | PRN, Flush before and after IV | | AM PDT | | | | | medication(s) and as needed with | | | | | | | NS, Starting 05/18/20 at 0955 | | | | | | + +---------+ +---------+ +---+ +---+---+ | | | +---+---+ + +-------+ +--------+---+---+ | sodium chloride 0.9% flush 10 | Given | 05/18/20 | 10 mLs | | | | mL 10 mL, Intracatheter, PRN, | | 20 2:31 | | | | | Line Care, Starting 05/18/20 | | PM PDT | | | | | at 0955 | | | | | | + +-------+ +--------+---+---+ +---+---+ | | | +---+---+ documented in this encounter"
--- OUTSIDE RECORDS SUMMARY | ~2020-06-23 | XMS | Encounter Summary ---
Demographics + + + | Address | [address] | | | [place] [address] | + + + | Home Phone | | + + + | Preferred Language | Unknown | + + + | Marital Status | Single | + + + | Rastafarian Affiliation | Unknown | + + + | Race | White | + + + | Ethnic Group | Not or | + + + Author + + + | Author | [facility] | | | and [place] | + + + | Organization | [facility] | | | [...] Team Providers + +------+ + | Care Landscape Designer Name | Role | Phone | + +------+ + | Myrna Mejia MD | PCP | | + +------+ + Encounter Details +--------+ + + + + | Date | Type | Department | Care Team | Description | +--------+ + + + + | 04/03/ | Orders Only | [facility] | Wilton Jeff MD | Mediastinal large | | 2019 | | HEMATOLOGY AND | [address] | B-cell lymphoma of | | | | ONCOLOGY [address] | [place], [place] | lymph nodes of | | | | [address] | [address] | multiple regions | | | | [place], [place] | | (HCC) (Primary Dx) | | | | [address] | | | | | | [phone] | | | +--------+ + + + [...] [place] | | | | | | [address] | | | | | | | | +--------+ + + + + | 06/29/ | Office | Oncology | Wilton Jeff MD | | | 2019 | Visit | | [address] | | | | | | [place] | | | | | | [address] | | | | | | | | | | | | Marilou Mcmullen, | | | | | | JOURNEYMAN PIPE WELDER [address] | | | | | | [address] | | | | | | [place] [address] | | | | | | [phone] | | | | | | | | +--------+ + + + + | 06/29/ | Appointment | Infusion Therapy | Wilton Jeff MD | | | 2019 | | | [address] | | | | | | [place] | | | | | | [address] | | | | | | | | +--------+ + + + + | 07/14/ | Office | Otolaryngology | She Huang | | | 2019 | Visit | | DO Sophia Canela | | | | | | [place] [address] | | | | | | [place] [address] | | | | | | [phone] | | | | | | | | +--------+ + + + + | 07/20/ | Appointment | Infusion Therapy | Wilton Jeff MD | | | 2019 | | | [address] | | | | | | [place] | | | | | | [address] | | | | | | | | +--------+ + + + + | 07/20/ | Office | Oncology | Wilton Jeff MD | | | 2019 | Visit | | [address] | | | | | | [place] | | | | | | [address] | | | | | | | | +--------+ + + + + | 07/20/ | Appointment | Infusion Therapy | Wilton Jeff MD | | | 2019 | | | [address] | | | | | | [place] | | | | | | [address] | | | | | | | | +--------+ + + + + | 08/17/ | Appointment | Infusion Therapy | Wilton Jeff MD | | | 2019 | | | [address] | | | | | | [place] | | | | | | [address] | | | | | | | | +--------+ + + + + | 08/17/ | Office | Oncology | Wilton Jeff MD | | | 2020 | Visit | | [address] | | | | | | [place] | | | | | | [address] | | | | | | | | +--------+ + + + + documented as of this encounter Visit Diagnoses + + | Diagnosis | + + | 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
--- OUTSIDE RECORDS SUMMARY | ~2020-06-23 | XMS | Encounter Summary ---
Demographics + + + | Address | [address] | | | [place] [address] | + + + | Home Phone | | + + + | Preferred Language | Unknown | + + + | Marital Status | Single | + + + | Gnosticist Affiliation | Unknown | + + + | Race | White | + + + | Ethnic Group | Not or | + + + Author + + + | Author | [facility] | | | and [place] | + + + | Organization | [facility] | | | and [...] Team Providers + +------+ + | Care Trestle Mainternance Laborer Name | Role | Phone | + +------+ + | Myrna Mejia MD | PCP | | + +------+ + Reason for Visit + +--------+ + | Reason | Onset | Comments | | | Date | | + +--------+ + | Paperwork | 03/30/ | | | | 2020 | | + +--------+ + Encounter Details +--------+ + + + + | Date | Type | Department | Care Team | Description | +--------+ + + + + | 03/30/ | Telephone | [facility] | Judit Liu, | Paperwork | | 2019 | | HEMATOLOGY AND | Paperhanger Assistant | | | | | ONCOLOGY [address] | | | | | [address] | | | | | | [place] | | | | | | [address] | | | | | | [phone] | | | +--------+ + + + [...] + + documented as of this encounter Miscellaneous Notes Telephone Encounter - Judit Liu, Paperhanger Assistant - 03/30/2020 11:51 AM PDTSpoke wi th patient's mother regarding FMLA request. Explained to patient's mother that there is no t reatment plan place as of right now. Once treatment plan is in place and/or updated, our dep artment will be able to better facilitate getting paperwork filled out correctly. Patient's mother stated understanding and thanked me for my call. documented in this encounter Plan of Treatment [...] [place] | | | | | | [address] | | | | | | | | +--------+ + + + + | 06/29/ | Office | Oncology | Wilton Jeff MD | | | 2019 | Visit | | [address] | | | | | | [place] | | | | | | [address] | | | | | | | | | | | | Marilou Mcmullen, | | | | | | MOLD BURNER [address] | | | | [address] | | | | | | [place] [address] | | | | | | [phone] | | | | | | | | +--------+ + + + + | 06/29/ | Appointment | Infusion Therapy | Wilton Jeff MD | | | 2019 | | | [address] | | | | | | [place] | | | | | | [address] | | | | | | | | +--------+ + + + + | 07/14/ | Office | Otolaryngology | She Huang | | | 2019 | Visit | | DO Sophia Canela | | | | | | [address] | | | | | | [place] [address] | | | | | | [phone] | | | | | | | | +--------+ + + + + | 07/20/ | Appointment | Infusion Therapy | Wilton Jeff MD | | | 2019 | | | [address] | | | | | | [place] | | | | | | [address] | | | | | | | | +--------+ + + + + | 07/20/ | Office | Oncology | Wilton Jeff MD | | | 2019 | Visit | | [address] | | | | | | [place] | | | | | | [address] | | | | | | | | +--------+ + + + + | 07/20/ | Appointment | Infusion Therapy | Wilton Jeff MD | | | 2019 | | | [address] | | | | | | [place] | | | | | | [address] | | | | | | | | +--------+ + + + + | 08/17/ | Appointment | Infusion Therapy | Wilton Jeff MD | | | 2019 | | | [address] | | | | | | [place] | | | | | | [address] | | | | | | | | +--------+ + + + + | 08/17/ | Office | Oncology | Wilton Jeff MD | | | 2019 | Visit | | [address] | | | | | | [place] | | | | | | [address] | | | | | | | | +--------+ + + + + documented as of this encounter Visit Diagnoses Not on filedocumented in this encounter"
--- OUTSIDE RECORDS SUMMARY | ~2020-06-23 | XMS | Encounter Summary ---
Demographics + + + | Address | [address] | | | [place] [address] | + + + | Home Phone | | + + + | Preferred Language | Unknown | + + + | Marital Status | Single | + + + | Hoahaoism Affiliation | Unknown | + + + | Race | White | + + + | Ethnic Group | Not or | + + + Author + + + | Author | [facility] | | | and [place] | + + + | Organization | [facility] | | | [...] Team Providers + +------+ + | Care Wheel Presser Name | Role | Phone | + +------+ + | Myrna Mejia MD | PCP | | + +------+ + Reason for Referral Evaluate & Treat (Urgent) + +--------+ + + + + | Status | Reason | Specialty | Diagnoses / | Referred By | Referred To | | | | | Procedures | Contact | Contact | + +--------+ + + + + | Authorized | | Hematology | Diagnoses | Jake, | Tomer, | | | | and Oncology | | Tali Núñez MD | | | | / Oncology | Lymphadenopa | MD Naheed | [address] | | | | | [address] of [address] | [address] | | | | | and neck | [place] | [place] | | | | | region | [place] | [place] [address] | | | | | Onc/New/Head | [place], [place] | Phone: | | | | | -Neck | [address] | [phone] | | | | | | Phone: | Fax: | | | | | | [phone] | [phone] | | | | | | Fax: | | | | | | | [phone] | | + +--------+ + + + + Evaluate & Treat (Urgent) +--------+--------+ + + + + | Status | Reason | Specialty | Diagnoses / | Referred By | Referred To | | | | | Procedures | Contact | Contact | +--------+--------+ + + + + | Closed | | Otolaryngolog | Diagnoses | Jake, | Sal, | | | | y | | Tali | She Canela DO | | | | | Lymphadenopa | MD Naheed | [address] | | | | | thy of head | [address] | | | | | and neck | [address] | [place], | | | | | region | [place] | [place] [address] | | | | | | [place], [place] | Phone: | | | | | | [address] | [phone] | | | | | | Phone: | Fax: | | | | | | [phone] | [phone] | | | | | | Fax: | | | | | | | [phone] | | +--------+--------+ + + + + Reason for Visit +---------+--------+ + | Reason | Onset | Comments | | | Date | | +---------+--------+ + | Results | 03/16/ | | | | 2019 | | +---------+--------+ + Encounter Details +--------+ + + + + | Date | Type | Department | Care Team | Description | +--------+ + + + + | 07/13/ | Telephone | [facility] | Jake, | Results | | 2019 | | PULMONOLOGY [address] | Tali [address], | | | | | [address] | [address] | | | | | [place], [place] | [place], | | | | | [address] | [place] [address] | | | | | [phone] | [phone] | | | | | | | | +--------+ + + + + Social History + +-------+ +--------+ + | Tobacco Use | Types | Packs/Day | Years | Date | | | | | Used | | + +-------+ +--------+ + | Former Smoker | | | | Started: 02/24/2020 | + +-------+ +--------+ + + +---+---+---+ | Smokeless Tobacco: | | | | | Never Used | | | | + +---+---+---+ + + + | Sex Assigned at | Date Recorded | | | | + + + | Not on file | | + + + documented as of this encounter Miscellaneous Notes Telephone Encounter - Wilton Jeff MD - 03/16/2020 2:09 PM PDTWill get him in RAN.Electr onically signed by Wilton Jeff MD at 03/16/2020 2:10 PM PDTTelephone Encounter - Tali Joseph MD - 03/16/2020 1:17 PM PDTI have reviewed his PET CT. This is concerni ng for a lymphoma given extensive H/N and chest adenopathy. Best approach for diagnosis will be surgical biopsy of a LN. In his case, he had palpable adenopathy on his neck on my exami nation, and PET CT confirmed avid nodes in supraclavicular areas. I have discussed this case with Dr Jeff, and have left a message with Dr Huang for po ssible biopsy of one of the LNs in the neck. I have spoken to Asad and explained urgency of what needs to get done next. He has agreed to get an ENT referral and biopsy of his neck. I will also refer him to Oncology. I will also contact his PCP to keep him in the loop. Tali Joseph MD Pulmonary and Critical Care Medicine [facility]/[place] [address] , [place] [address] documente d in this encounter Plan of Treatment +--------+ [...] [place] | | | | | | [address] | | | | | | | | +--------+ + + + + | 06/29/ | Office | Oncology | Wilton Jeff MD | | | 2019 | Visit | | [address] | | | | | | [place] | | | | | | [address] | | | | | | | | | | | | Marilou Mcmullen, | | | | | | CONTRACT AGENT [address] | | | | | | [address] | | | | | | [place] [address] | | | | | | [phone] | | | | | | | | +--------+ + + + + | 06/29/ | Appointment | Infusion Therapy | Wilton Jeff MD | | | 2019 | | | [address] | | | | | | [place] | | | | | | [address] | | | | | | | | +--------+ + + + + | 07/14/ | Office | Otolaryngology | She Huang | | | 2019 | Visit | | DO Sophia Canela | | | | | | [place] [address] | | | | | | [place] [address] | | | | | | [phone] | | | | | | | | +--------+ + + + + | 07/20/ | Appointment | Infusion Therapy | Wilton Jeff MD | | | 2019 | | | [address] | | | | | | [place] | | | | | | [address] | | | | | | | | +--------+ + + + + | 07/20/ | Office | Oncology | Wilton Jeff MD | | | 2019 | Visit | | [address] | | | | | | [place] | | | | | | [address] | | | | | | | | +--------+ + + + + | 07/20/ | Appointment | Infusion Therapy | Wilton eJff MD | | | 2019 | | | [address] | | | | | | [place] | | | | | | [address] | | | | | | | | +--------+ + + + + | 08/17/ | Appointment | Infusion Therapy | Wilton Jeff MD | | | 2019 | | | [address] | | | | | | [place] | | | | | | [address] | | | | | | | | +--------+ + + + + | 08/17/ | Office | Oncology | Wilton Jeff MD | | | 2020 | Visit | | [address] | | | | | | [place] | | | | | | [address] | | | | | | | | +--------+ + + + + + + +--------+ + + | Name | Type | Priori | Associated Diagnoses | Order Schedule | | | | ty | | | + + +--------+ + + | Ambulatory Referral | Outpatient | Routin | Lymphadenopathy of | Ordered: 03/16/2020 | | to [facility] | Referral | e | head and neck | | | | | | region | | + + +--------+ + + | Ambulatory referral | Outpatient | STAT | Lymphadenopathy of | Ordered: 03/16/2020 | | to Hematology / | Referral | | head and neck | | | Oncology | | | region | | + + +--------+ + + documented as of this encounter Visit Diagnoses + + | Diagnosis | + + | Lymphadenopathy of head and neck region - Primary | + + documented in this encounter"
--- OUTSIDE RECORDS SUMMARY | ~2020-06-23 | XMS | Encounter Summary ---
Demographics + + + | Address | [address] | | | [place] [address] | + + + | Home Phone | | + + + | Preferred Language | Unknown | + + + | Marital Status | Single | + + + | Yarsanism Affiliation | Unknown | + + + | Race | White | + + + | Ethnic Group | Not or | + + + Author + + + | Author | [facility] | | | and [place] | + + + | Organization | [facility] | | [...] Team Providers + +------+ + | Care Marketing Analytics Specialist Name | Role | Phone | + +------+ + | Myrna Mejia MD | PCP | | + +------+ + Reason for Visit + +--------+ + | Reason | Onset | Comments | | | Date | | + +--------+ + | Oncology Appointment | 05/12/ | | | | 2020 | | + +--------+ + Encounter Details +--------+ + + + + | Date | Type | Department | Care Team | Description | +--------+ + + + + | 05/12/ | Telephone | [facility] | Wilton Jeff MD | Oncology Appointment | | 2019 | | HEMATOLOGY AND | [address] | | | | | ONCOLOGY [address] | [place] | | | | | [address] | [address] | | | | | [place] | | | | | | [address] | | | | | | [phone] | | | +--------+ + + + [...] this encounter Miscellaneous Notes Telephone Encounter - Zoë Silva - 05/12/2020 10:01 AM PDTI spoke to patient on the phone. He is aware that his appt cancel on May 14 and will have a follow up on May 18 when he is already scheduled for his treatment on May 18. documented in this encounter Plan of Treatment [...] [place] | | | | | | [address] | | | | | | | | +--------+ + + + + | 06/29/ | Office | Oncology | Wilton Jeff MD | | | 2019 | Visit | | [address] | | | | | | [place] | | | | | | [address] | | | | | | | | | | | | Marilou Mcmullen, | | | | | | HOG GRADER [address] | | | | | | [address] | | | | | | [place] [address] | | | | | | [phone] | | | | | | | | +--------+ + + + + | 06/29/ | Appointment | Infusion Therapy | Wilton eJff MD | | | 2019 | | | [address] | | | | | | [place] | | | | | | [address] | | | | | | | | +--------+ + + + + | 07/14/ | Office | Otolaryngology | She Huang | | | 2019 | Visit | | DO Sophia Canela | | | | | | [address] | | | | | | [place] [address] | | | | | | [phone] | | | | | | | | +--------+ + + + + | 07/20/ | Appointment | Infusion Therapy | Wilton Jeff MD | | | 2019 | | | [address] | | | | | | [place] | | | | | | [address] | | | | | | | | +--------+ + + + + | 07/20/ | Office | Oncology | Wilton Jeff MD | | | 2019 | Visit | | [address] | | | | | | [place] | | | | | | [address] | | | | | | | | +--------+ + + + + | 07/20/ | Appointment | Infusion Therapy | Wilton Jeff MD | | | 2019 | | | [address] | | | | | | [place] | | | | | | [address] | | | | | | | | +--------+ + + + + | 08/17/ | Appointment | Infusion Therapy | Wilton Jeff MD | | | 2019 | | | [address] | | | | | | [place] | | | | | | [address] | | | | | | | | +--------+ + + + + | 08/17/ | Office | Oncology | Wilton Jeff MD | | | 2019 | Visit | | [address] | | | | | | [place] | | | | | | [address] | | | | | | | | +--------+ + + + + documented as of this encounter Visit Diagnoses Not on filedocumented in this encounter"
--- OUTSIDE RECORDS SUMMARY | ~2020-06-23 | XMS | Encounter Summary ---
Demographics + + + | Address | [address] | | | [place] [address] | + + + | Home Phone | | + + + | Preferred Language | Unknown | + + + | Marital Status | Single | + + + | Baptist Affiliation | Unknown | + + + | Race | White | + + + | Ethnic Group | Not or | + + + Author + + + | Author | [facility] | | | and [place] | + + + | Organization | [facility] | | [...] Team Providers + +------+ + | Care Metal Stud Framer Name | Role | Phone | + +------+ + | Myrna Mejia MD | PCP | | + +------+ + Reason for Visit + + + | Reason | Comments | + + + | Follow-up | Visit Virtual | + + + Encounter Details +--------+---------+ + + + | Date | Type | Department | Care Team | Description | +--------+---------+ + + + | 04/27/ | Office | [facility] | Wilton Jeff MD | Diffuse large B-cell | | 2019 | Visit | HEMATOLOGY AND | [address] | lymphoma of lymph | | | | ONCOLOGY [address] | [place] | nodes of multiple | | | | [address] | [address] | regions (HCC) | | | | [facility] | | (Primary Dx) | | | | [address] | | | | | | [phone] | | | +--------+---------+ + + + Social History + + [...] + + documented as of this encounter Last Filed Vital Signs + + + + + | Vital Sign | Reading | Time Taken | Comments | + + + + + | Blood Pressure | 96/66 | 04/27/2020 9:19 AM | | | | | PDT | | + + + + + | Pulse | 84 | 04/27/2020 9:19 AM | | | | | PDT | | + + + + + | Temperature | 36.3 C (97.4 F) | 04/27/2020 9:19 AM | | | | | PDT | | + + + + + | Respiratory Rate | 18 | 04/27/2020 9:19 AM | | | | | PDT | | + + + + + | Oxygen Saturation | 98% | 04/27/2020 9:19 AM | | | | | PDT | | + + + + + | Inhaled Oxygen | - | - | | | Concentration | | | | + + + + + | Weight | 96.2 kg (212 lb) | 04/27/2020 9:19 AM | | | | | PDT | | + + + + + | Height | 180.3 cm (5' 10.98") | 04/27/2020 9:19 AM | | | | | PDT | | + + + + + | Body Mass Index | 29.58 | 04/27/2020 9:19 AM | | | | | PDT | | + + + + + documented in this encounter Progress Notes Wilton Jeff MD - 04/27/2020 9:15 AM PDTFormatting of this note might be different from t he original. [facility] Oncology Progress Note Patient Name: ASAD LONGO Date of : 1990 Age: 29 y.o. PCP: Myrna Mejia MD Cancer Diagnosis and Stage Cancer Staging Diffuse large B-cell lymphoma of lymph nodes of multiple regions (HCC) Staging form: Hodgkin And Non-Hodgkin Lymphoma, AJCC 8th Edition - Clinical stage from 03/31/2020: Stage III (Diffuse large B-cell lymphoma) - Signed by Wilton Jeff MD on 03/31/2020 History of Present Illness [...] Dr. Franko Davis and Dr. Gloria Lundberg. Bone marrow biopsy performed on April 02, 2020 showed no involvement with lymphoma. The patient was recommended 6 cycles of chemotherapy comprising DA-R-EPOCH. The patient received "day 0" of rituximab on April 06, 2020 at [facility]. He then received days 1-5 of EPOCH from April 09-2019. 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 Reason for Office Visit/Interval History Asad today for cycle 2 of chemotherapy. At today's visit, he feels well. He reports no n ew or unusual symptoms. He denies any chest pain, shortness of breath, cough, sputum produc tion, or hemoptysis. He denies any fevers, night sweats, or unintentional weight loss. The patient has no other complaints today [...] CERVICAL NODE; Surgeon: She Huang DO; Location: [facility] [place] Family History Problem Relation Age of [...] Types: Cigarettes Start date: 02/24/2020 Smokeless tobacco: Former User Types: Chew Tobacco comment: quit 02/22/2020 / chews 1 can tobacco/week Substance and Sexual Activity Alcohol use: Not Currently Drug use: Yes Frequency: 7.0 times per week Types: Marijuana Comment: edibles Sexual activity: Not on file Lifestyle Physical activity Days per week: Not on file Minutes per session: Not on file Stress: Not on file Relationships Social connections Talks on phone: Not on file Gets together: Not on file Attends faith service: Not on file Active member of [...] medical history above reviewed and updated on 04/27/2020 Medications Current Outpatient Medications Medication Sig Dispense Refill acyclovir (ZOVIRAX) 200 mg capsule Take 4 capsules by mouth 2 times daily. Indications: Herpes Zoster Prevention in Immunocompromised 240 capsule 5 allopurinol (ZYLOPRIM) 300 mg tablet Take 1 tablet by mouth Daily. 10 tablet 0 aluminum & magnesium sqohofqcb-dzobsgttkqy-fhepnyxwasCBVIZ-lidocaine Swish and spit 15 mLs every 4 hours as needed for Sore Throat. 600 mL 2 benzonatate (TESSALON) 100 mg capsule Take 100 mg by mouth 3 times daily as needed for Cough. hocwitcctrpdbvw-snfczecydmktve-jvzswhwi (DUKES MOUTHWASH) suspension Swish and spit 10 mLs 4 times daily. 240 mL 1 lidocaine-prilocaine (EMLA) cream Apply generously to port site and cover with tegaderm or saran wrap 1 hour prior to chemo.. 30 g [address] onto the skin. ondansetron (ZOFRAN ODT) 4 mg disintegrating tablet Take 1 tablet by mouth every 6 hour s as needed for Nausea. (Patient not taking: Reported on 04/27/2020.) 20 tablet 0 predniSONE (DELTASONE) 50 mg tablet Take 2 tablets (total 100 mg) daily on days 1, 2, 3 , 4, and 5 of each cycle of chemotherapy. (Patient not taking: Reported on 04/17/2020.) 30 ta blet 2 prochlorperazine 10 mg tablet Take 1 tablet by mouth every 6 hours as needed (Nausea/Vo miting). (Patient not taking: Reported on 04/17/2020.) 30 tablet 11 No current facility-administered medications for this visit. Facility-Administered Medications Ordered in Other Visits Medication Dose Route Frequency Provider Last Rate Last Dose sodium chloride 0.9% flush 10 mL 10 mL Intracatheter PRN Wilton Jeff MD 10 mL at 0845 Medications reviewed and updated on 04/27/2020 Review of Systems Review of Systems Constitutional: Negative for fatigue and fever. HENT: Negative. Eyes: Negative for visual disturbance. Respiratory: Negative for cough and shortness of breath. Cardiovascular: Negative. Gastrointestinal: Negative. Endocrine: Negative for polydipsia and polyphagia. Genitourinary: Negative. Musculoskeletal: Negative. Skin: Negative. Neurological: Negative. Hematological: Negative for adenopathy. Does not bruise/bleed easily. Psychiatric/Behavioral: Negative. Physical Exam BP 96/66 | Pulse 84 | Temp 36.3 C (97.4 F) (Tympanic) | Resp 18 | Ht 1.803 m (5' 10 .98") | Wt 96.2 kg (212 lb) | SpO2 98% | BMI 29.58 kg/m ECOG Performance Status: 0 Physical Exam Constitutional: Appearance: Normal appearance. HENT: Head: Normocephalic and atraumatic. Mouth/Throat: Pharynx: Oropharynx is clear. No oropharyngeal exudate or posterior oropharyngeal erythe ma. Eyes: General: No scleral icterus. Conjunctiva/sclera: Conjunctivae normal. Cardiovascular: Rate and Rhythm: Normal rate and regular rhythm. Heart sounds: No murmur. No friction rub. No gallop. Pulmonary: Effort: Pulmonary effort is normal. No respiratory distress. Breath sounds: No wheezing, rhonchi or rales. Chest: Chest wall: No tenderness. Abdominal: General: Abdomen is flat. Bowel sounds are normal. There is no distension. Palpations: Abdomen is soft. There is no mass. Tenderness: There is no abdominal tenderness. There is no guarding. Musculoskeletal: Normal range of motion. General: No swelling or deformity. Right lower leg: No edema. Left lower leg: No edema. Lymphadenopathy: Cervical: No cervical adenopathy. Skin: General: Skin is warm. Coloration: Skin is not jaundiced or pale. Findings: No bruising, erythema, lesion or rash. Neurological: General: No focal deficit present. Mental Status: He is alert and oriented to person, place, and time. Labs and Imaging Recent Results (from the past 24 hour(s)) Comprehensive Metabolic Panel Result Value Ref Range Na 140 135 - 145 mmol/L K 4.5 3.5 - 4.9 mmol/L Cl 105 98 - 107 mmol/L CO2 27 22 - 29 mmol/L Anion Gap 13 5 - 20 mmol/L Glucose 90 74 - 99 mg/dL BUN 21 (H) 6 - 20 mg/dL Creatinine 0.98 0.7 - 1.2 mg/dL BUN/Creatinine Ratio 21 Calcium 9.5 8.6 - 10.2 mg/dL Protein, Total 6.8 6.5 - 8.5 g/dL Albumin 4.3 3.3 - 5 g/dL Globulin 2.5 1.3 - 4.9 g/dL A/G Ratio 1.7 1.0 - 2.4 BILIRUBIN, TOTAL 0.2 0.2 - 1 mg/dL ALK PHOS 95 40 - 125 U/L AST 23 5 - 40 U/L ALT 56 (H) 5 - 41 U/L Estimated GFR >60 >60 mL/min/1.73m2 CBC with Differential Result Value Ref Range WBC 13.97 (H) 3.80 - 11.00 K/uL Red Blood Cells 3.71 (L) 4.20 - 5.70 M/uL Hemoglobin 10.7 (L) 13.2 - 17.0 g/dL Hematocrit 32.1 (L) 39.0 - 50.0 % MCV 86.5 80.0 - 100.0 fl MCH 28.8 27.0 - 34.0 pg MCHC 33.3 32.0 - 35.5 g/dL RDW-SD 49.9 37 - 53 fl Platelet Count 216 150 - 400 K/uL MPV 7.1 fl Diff Type MANUAL % nRBC 1 (H) 0 /100WBC % Segmented Neutrophils 56 % % Bands 20 % % Metamyelocytes 6 % % Lymphocytes 8 % % Monocytes 7 % Eosinophils % 3 % Neutrophils, Absolute 7.82 (H) 1.90 - 7.40 K/uL Absolute Band Neutrophils 2.79 (H) 0.00 - 0.20 K/uL Absolute Metamyelocytes 0.84 (H) 0.00 K/uL Absolute Lymphocytes 1.12 1.00 - 3.90 K/uL Absolute Monocytes 0.98 (H) 0.00 - 0.80 K/uL Eosinophils, Absolute 0.42 0.00 - 0.50 K/uL RBC Morphology RBC AND PLT MORPHOLOGY APPEAR NORMAL Assessment Mr. Asad Longo is a pleasant 29 y.o. 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 PET scan on March 16, 2020 revealed a right u pper lobe pulmonary mass measuring 6.0 x 5.7 cm with an SUV of 30.1, bilateral cervical, ext ensive conglomerate mediastinal, bilateral hilar, and bilateral axillary lymph lymphadenopat hy. There was also a subdiaphragmatic lymph node measuring 2.3 x 2.4 cm with an SUV of 23.4 . The patient was recommended 6 cycles of chemotherapy comprising DA-R-EPOCH. The patient received "day 0" of rituximab on April 06, 2020 at [facility]. He then received days 1-5 of EPOCH from April 09-2019. Plan At the end of today's discussion, the patient expressed understanding and willingness to pr oceed with the plan as outlined below: 1. Proceed with C2 rituximab today. 2. He will be admitted April 29, 2020 to begin C2 DA-EPOCH beginning April 30. 3. Continue all supportive measures. 4. The patient was counseled on the signs and symptoms of an ominous hematologic/oncologic process, and he knows to call if these were to occur. 5. The patient was counseled on the signs and symptoms that may indicate progression/recurr ence of his cancer, and he knows to call if this were to occur. All the patient's questions were answered to his satisfaction. The patient is to call with any questions or concerns. Wilton Jeff MD [facility] 04/27/2020 Portions of this chart may have been created with voice recognition software. Occasional wr mak-word or "sound-alike" substitutions may have occurred, even after review, due to the inh erent limitations of voice recognition software. Please read the chart carefully and recogni ze, using context, where these substitutions have occurred. Personal communication is reques akbar for any clarifications. documented in this encou nter Plan of Treatment +--------+ + + + + | Date | Type | Specialty | Care Team | Description | +--------+ + + + + | 06/29/ | Appointment | Infusion Therapy | Wilton Jeff MD | | | 2019 | | | [address] | | | | | | [place] | | | | | | [address] | | | | | | | | +--------+ + + + + | 06/29/ | Office | Oncology | Wilton Jeff MD | | | 2019 | Visit | | [address] | | | | | | [place] | | | | | | [address] | | | | | | | | | | | | Marilou Mcmullen, | | | | | | DYNAMICS AX DEVELOPER [address] | | | | | | [address] | | | | | | [place] [address] | | | | | | [phone] | | | | | | | | +--------+ + + + + | 06/29/ | Appointment | Infusion Therapy | Wilton Jeff MD | | | 2019 | | | [address] | | | | | | [place] | | | | | | [address] | | | | | | | | +--------+ + + + + | 07/14/ | Office | Otolaryngology | She Huang | | | 2019 | Visit | | DO Sophia Canela | | | | | | [address] | | | | | | [place] [address] | | | | | | [phone] | | | | | | | | +--------+ + + + + | 07/20/ | Appointment | Infusion Therapy | Wilton Jeff MD | | | 2019 | | | [address] | | | | | | [place] | | | | | | [address] | | | | | | | | +--------+ + + + + | 07/20/ | Office | Oncology | Wilton Jeff MD | | | 2019 | Visit | | [address] | | | | | | [place] | | | | | | [address] | | | | | | | | +--------+ + + + + | 07/20/ | Appointment | Infusion Therapy | Wilton Jeff MD | | | 2019 | | | [address] | | | | | | [place] | | | | | | [address] | | | | | | | | +--------+ + + + + | 08/17/ | Appointment | Infusion Therapy | Wilton Jeff MD | | | 2019 | | | [address] | | | | | | [place] | | | | | | [address] | | | | | | | | +--------+ + + + + | 08/17/ | Office | Oncology | Wilton Jeff MD | | | 2019 | Visit | | [address] | | | | | | [place] | | | | | | [address] | | | | | | | | +--------+ + + + + documented as of this encounter Visit Diagnoses + + | Diagnosis | + + | 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
--- OUTSIDE RECORDS SUMMARY | ~2020-06-23 | XMS | Encounter Summary ---
Demographics + + + | Address | [address] | | | [place] [address] | + + + | Home Phone | | + + + | Preferred Language | Unknown | + + + | Marital Status | Single | + + + | Christianity Affiliation | Unknown | + + + | Race | White | + + + | Ethnic Group | Not or | + + + Author + + + | Author | [facility] | | | and [place] | + + + | Organization | [facility] | | | [...] Team Providers + +------+ + | Care Real Estate Administrative Assistant Name | Role | Phone | + +------+ + | Myrna Mejia MD | PCP | | + +------+ + Reason for Visit +--------+--------+ + | Reason | Onset | Comments | | | Date | | +--------+--------+ + | Triage | 06/23/ | | | | 2020 | | +--------+--------+ + Encounter Details +--------+ + + + + | Date | Type | Department | Care Team | Description | +--------+ + + + + | 06/23/ | Telephone | [facility] | Lizbet Rios | Triage | | 2019 | | HEMATOLOGY AND | [facility] | | | | | ONCOLOGY INFUSIONS | | | | | | [address] | | | | | | [place] | | | | | | [address] | | | | | | [phone] | | | +--------+ + + + [...] do you have serious | No | 06/15/2020 | | difficulty hearing? | | | + + + + | Are you blind or do you have serious | No | 06/15/2020 | | difficulty seeing, even when wearing | | | | glasses? | | | + + + + | Do you have serious difficulty walking or | No | 06/15/2020 | | climbing stairs? (5 years old or older) | | | + + + + | Do you have difficulty dressing or bathing? | No | 06/15/2020 | | (5 years old or older) | | | + + + + | Because of a physical, mental, or emotional | No | 06/15/2020 | | condition, do you have difficulty [...] physical, mental, or emotional | No | 06/15/2020 | | condition, do you have serious difficulty | | | | concentrating, remembering, or making | | | | decisions? (5 years old or older) | | | + + + + documented as of this encounter Miscellaneous Notes Telephone Encounter - Bruce Leonardo [place] - 06/23/2020 4:30 PM PDTPatient' s girfriend called back to report that patient was feeling too ill to make it to [facility] ER. They are currently at [facility] in [facility]. BRUCE LEONARDO [place] elephone Encounter - Wilton Jeff MD - 06/23/2020 3:20 PM P DTIf they call back, please recommend [facility].Electronically signed by Wilton Jeff MD at 3:20 PM PDTTelephone Encounter - Lizbet Rios RN - 06/23/2020 3:12 PM PDTP atient was suggested [facility] for ED today, patient wanted to go to [facility]. Called patient a nd mother back to advise them MD would prefer they go to [facility]. No answer, left message.Elec tronically signed by Lizbet Rios RN at 06/23/2020 3:16 PM PDTTelephone Encounter - Wilton Jeff MD - 06/23/2020 3:03 PM PDTSashangieka: I messaged Barbara to send Asad to [facility] ER instead. Can you please go to the Triage side and let Barbara that I would prefer he go to [facility] er than [place] ER. Patient should also be tested for COVID19. elephone Encounter - Wilton Kohler MD - 06/23/2020 3:01 PM PDTPlease send him to [facility] ER. elephone Encounter - Lizbet Rios RN - 06/23/2020 2:27 PM PDTTELEPHONE TRIAGE: SBAR Situation: Routing to Provider, Tomer, requesting review and advice: Fever (101F),body aches and vomiting x 2 days. 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 Reports temps of 101F x last 48 hours with body aches, chills and vomiting. Self Care: Tylenol, Ibuprofen, Ondansetron per recommendations. Patient has been lying on ice packs. Recommendation: Advised patient/caregiver to: Advised patient to proceed to nearest ED which is in [place], [place]. Patient has card wi th current tx and MD listed Patient/caregiver informed will send information to provider and will contact them with pro vider response. Patient verbalized understanding and is agreeable with plan. documented in thi s encounter Plan of Treatment +--------+ + + + + | Date | Type | Specialty | Care Team | Description | +--------+ + + + + | 06/29/ | Appointment | Infusion Therapy | Wilton Jeff MD | | 2019 | | | [address] | | | | | | [place] | | | | | | [address] | | | | | | | | +--------+ + + + + | 06/29/ | Office | Oncology | Wilton Jeff MD | | | 2019 | Visit | | [address] | | | | | | [place] | | | | | | [address] | | | | | | | | | | | | Marilou Mcmullen, | | | | | | PACKAGING MACHINE OPERATOR [address] | | | | | [address] | | | | | | [place] [address] | | | | | | [phone] | | | | | | | | +--------+ + + + + | 06/29/ | Appointment | Infusion Therapy | Wilton Jeff MD | | | 2019 | | | [address] | | | | | | [place] | | | | | | [address] | | | | | | | | +--------+ + + + + | 11/10/ | Office | Otolaryngology | She Huang | | | 2019 | Visit | | DO Sophia Canela | | | | | | [address] | | | | | | [place] [address] | | | | | | [phone] | | | | | | | | +--------+ + + + + | 07/20/ | Appointment | Infusion Therapy | Wilton Jeff MD | | | 2019 | | | [address] | | | | | | [place] | | | | | | [address] | | | | | | | | +--------+ + + + + | 07/20/ | Office | Oncology | Wilton Jeff MD | | | 2019 | Visit | | [address] | | | | | | [place] | | | | | | [address] | | | | | | | | +--------+ + + + + | 11/16/ | Appointment | Infusion Therapy | Wilton Jeff MD | | | 2019 | | | [address] | | | | | | [place] | | | | | | [address] | | | | | | | | +--------+ + + + + | 08/17/ | Appointment | Infusion Therapy | Wilton Jeff MD | | | 2019 | | | [address] | | | | | | [place] | | | | | | [address] | | | | | | | | +--------+ + + + + | 08/17/ | Office | Oncology | Wilton Jeff MD | | | 2019 | Visit | | [address] | | | | | | [place] | | | | | | [address] | | | | | | | | +--------+ + + + + documented as of this encounter Visit Diagnoses Not on filedocumented in this encounter"
--- OUTSIDE RECORDS SUMMARY | ~2020-06-23 | XMS | Encounter Summary ---
Demographics + + + | Address | [address] | | | [place] [address] | + + + | Home Phone | | + + + | Preferred Language | Unknown | + + + | Marital Status | Single | + + + | Anglican Affiliation | Unknown | + + + [...] Team Providers + +------+ + | Care Sagger Preparer Name | Role | Phone | + +------+ + | Myrna Mejia MD | PCP | | + +------+ + Encounter Details +--------+ + + + + | Date | Type | Department | Care Team | Description | +--------+ + + + + | 04/02/ | Documentati | [facility] | Bruce Leonardo, | | | 2019 | on | HEMATOLOGY AND | Independent Living Advisor | | | | | ONCOLOGY [address] | | | | [address] | | | | | | [place] | | | | | | [address] | | | | | | [phone] | | | +--------+ + + + [...] + + | Comments: quit 02/22/2020 / chewdali 1 can tobacco/week | + + + [...] + documented as of this encounter Progress Bruce Romero, Independent Living Advisor - 04/02/2020 1:08 PM PDTConsent for Rituximab, Etoposi de, Prednisone, Vincristine, Cyclophosphamide, Doxorubicin and Pegfilgrastim, was signed by Dr. Jeff and witnessed by myself. Copy of consent was given to the patient at the time of today's visit 04/02/2020. Copy of consent was sent to medical records for scan. SASHENKA LEONARDO, Independent Living Advisor documented in this encounter Plan of Treatment [...] [place] | | | | | | [id number] | | | | | | | | +--------+ + + + + | 06/29/ | Office | Oncology | Wilton Jeff MD | | 2019 | Visit | | [address] | | | | | | [place] | | | | | | [address] | | | | | | | | | | | | Marilou Mcmullen, | | | | | | PERIODONTAL ASSISTANT [address] | | | | | | [address] | | | | | | [place] [address] | | | | | | [phone] | | | | | | | | +--------+ + + + + | 06/29/ | Appointment | Infusion Therapy | Wilton Jeff MD | | | 2019 | | | [address] | | | | | | [place] | | | | | | [address] | | | | | | | | +--------+ + + + + | 07/14/ | Office | Otolaryngology | She Huang | | | 2019 | Visit | | DO Sophia Canela | | | | | | [facility] [address] | | | | | | [place] [address] | | | | | | [phone] | | | | | | | | +--------+ + + + + | 07/20/ | Appointment | Infusion Therapy | Wilton Jeff MD | | | 2019 | | | [address] | | | | | | [place] | | | | | | [address] | | | | | | | | +--------+ + + + + | 07/20/ | Office | Oncology | Wilton Jeff MD | | | 2019 | Visit | | [address] | | | | | | [place] | | | | | | [address] | | | | | | | | +--------+ + + + + | 07/20/ | Appointment | Infusion Therapy | Wilton Jeff MD | | | 2019 | | | [address] | | | | | | [place] | | | | | | [address] | | | | | | | | +--------+ + + + + | 08/17/ | Appointment | Infusion Therapy | Wilton Jeff MD | | | 2019 | | | [address] | | | | | | [place] | | | | | | [address] | | | | | | | | +--------+ + + + + | 08/17/ | Office | Oncology | Wilton Jeff MD | | | 2020 | Visit | | [address] | | | | | | [place] | | | | | | [address] | | | | | | | | +--------+ + + + + documented as of this encounter Visit Diagnoses Not on filedocumented in this encounter"
--- OUTSIDE RECORDS SUMMARY | ~2020-06-23 | XMS | Encounter Summary ---
Demographics + + + | Address | [address] | | | [place] [address] | + + + | Home Phone | | + + + | Preferred Language | Unknown | + + + | Marital Status | Single | + + + | Voodoo Affiliation | Unknown | + + + | Race | White | + + + | Ethnic Group | Not or | + + + Author + + + | Author | [facility] | | | and [place] | + + + | Organization | [facility] | | | [...] Team Providers + +------+ + | Care Set Painter Name | Role | Phone | + +------+ + | Myrna Mejia MD | PCP | | + +------+ + Reason for Visit + +--------+ + | Reason | Onset | Comments | | | Date | | + +--------+ + | Follow-up | 06/04/ | | | | 2020 | | + +--------+ + Encounter Details +--------+ + + + + | Date | Type | Department | Care Team | Description | +--------+ + + + + | 06/04/ | Telephone | [facility] | She Huang | Follow-up | | 2019 | | NOSE AND THROAT [address] | J, DO [address] | | | | [address] | [address] | | | | | [place], [place] | [place] [address] | | | | | [address] | [phone] | | | | | [phone] | | | +--------+ + + + [...] this encounter Miscellaneous Notes Telephone Encounter - Beba Jackson - 06/04/2020 2:40 PM PDTLVM to reschedule f/u wit h Dr. Huang. Sal out. 2:4 1 PM PDTdocumented in this encounter Plan of Treatment +--------+ + + + + | Date | Type | Specialty | Care Team | Description | +--------+ + + + + | 06/29/ | Appointment | Infusion Therapy | Wilton Jeff MD | | 2019 | | | [address] | | | | | | [place] | | | | | | [address] | | | | | | | | +--------+ + + + + | 06/29/ | Office | Oncology | Wilton Jeff MD | | | 2019 | Visit | | [address] | | | | | | [place] | | | | | | [address] | | | | | | | | | | | | Marilou Mcmullen, | | | | | | MANAGER NUCLEAR [address] | | | | [address] | | | | | | [place] [address] | | | | | | [phone] | | | | | | | | +--------+ + + + + | 06/29/ | Appointment | Infusion Therapy | Wilton Jeff MD | | | 2019 | | | [address] | | | | | | [place] | | | | | | [address] | | | | | | | | +--------+ + + + + | 07/14/ | Office | Otolaryngology | She Huang | | | 2019 | Visit | | DO Sophia Canela | | | | | | [address] | | | | | | [place] [address] | | | | | | [phone] | | | | | | | | +--------+ + + + + | 07/20/ | Appointment | Infusion Therapy | Wilton Jeff MD | | | 2019 | | | [address] | | | | | | [place] | | | | | | [address] | | | | | | | | +--------+ + + + + | 07/20/ | Office | Oncology | Wilton Jeff MD | | | 2019 | Visit | | [address] | | | | | | [place] | | | | | | [address] | | | | | | | | +--------+ + + + + | 07/20/ | Appointment | Infusion Therapy | Wilton Jeff MD | | | 2019 | | | [address] | | | | | | [place] | | | | | | [address] | | | | | | | | +--------+ + + + + | 08/17/ | Appointment | Infusion Therapy | Wilton Jeff MD | | | 2019 | | | [address] | | | | | | [place] | | | | | | [address] | | | | | | | | +--------+ + + + + | 08/17/ | Office | Oncology | Wilton Jeff MD | | | 2019 | Visit | | [address] | | | | | | [place] | | | | | | [phone] | | | | | | | | +--------+ + + + + documented as of this encounter Visit Diagnoses Not on filedocumented in this encounter"
--- OUTSIDE RECORDS SUMMARY | ~2020-06-23 | XMS | Encounter Summary ---
Demographics + + + | Address | [address] | | | [place] [address] | + + + | Home Phone | | + + + | Preferred Language | Unknown | + + + | Marital Status | Single | + + + | Pentecostal Affiliation | Unknown | + + + | Race | White | + + + | Ethnic Group | Not or | + + + Author + + + | Author | [facility] | | | and [place] | + + + | Organization | [facility] | | [...] Team Providers + +------+ + | Care Groundskeeper Porter Name | Role | Phone | + +------+ + | Myrna Mejia MD | PCP | | + +------+ + Encounter Details +--------+ + + + + | Date | Type | Department | Care Team | Description | +--------+ + + + + | 03/20/ | Orders Only | [facility] | Wilton Jeff MD | Other classical | | 2020 | | HEMATOLOGY AND | [address] | Hodgkin lymphoma of | | | | ONCOLOGY [address] | [place], [place] | lymph nodes of | | | | [address] | [phone] | multiple regions | | | | [place] | | (HCC) | | | | [address] | | | | | | [phone] | | | +--------+ + + + [...] [place] | | | | | | [address] | | | | | | | | +--------+ + + + + | 06/29/ | Office | Oncology | Wilton Jeff MD | | | 2019 | Visit | | [address] | | | | | | [place] | | | | | | [address] | | | | | | | | | | | | Marilou Mcmullen, | | | | | | POWER SYSTEM ELECTRICAL ENGINEER [address] | | | | | | [address] | | | | | | [place] [address] | | | | | | [phone] | | | | | | | | +--------+ + + + + | 06/29/ | Appointment | Infusion Therapy | Wilton Jeff MD | | | 2019 | | | [address] | | | | | | [place] | | | | | | [address] | | | | | | | | +--------+ + + + + | 07/14/ | Office | Otolaryngology | She Huang | | | 2019 | Visit | | DO Sophia Canela | | | | | | [address] [address] | | | | | | [place] [address] | | | | | | [phone] | | | | | | | | +--------+ + + + + | 07/20/ | Appointment | Infusion Therapy | Wilton Jeff MD | | | 2019 | | | [address] | | | | | | [place] | | | | | | [address] | | | | | | | | +--------+ + + + + | 07/20/ | Office | Oncology | Wilton Jeff MD | | | 2019 | Visit | | [address] | | | | | | [place] | | | | | | [address] | | | | | | | | +--------+ + + + + | 07/20/ | Appointment | Infusion Therapy | Wilton Jeff MD | | | 2019 | | | [address] | | | | | | [place] | | | | | | [address] | | | | | | | | +--------+ + + + + | 08/17/ | Appointment | Infusion Therapy | Wilton Jeff MD | | | 2019 | | | [address] | | | | | | [place] | | | | | | [address] | | | | | | | | +--------+ + + + + | 08/17/ | Office | Oncology | Wilton Jeff MD | | | 2019 | Visit | | [address] | | | | | | [place] | | | | | | [address] | | | | | | | | +--------+ + + + + documented as of this encounter Results Sedimentation Rate (03/27/2020 9:15 AM PDT) + + + + + + | Component | Value | Ref Range | Performed | Pathologist | | | | | At | Signature | + + + + + + | ESR | 50 (H)Comment: Testing | 0 - 15 mm/Hr | REFERENCE | | | | performed at [facility];[address] | | LAB | | | | [address] | | [facility] | | | | [address];[place] [address] | | LABORATORY | | + + + + + + + + | Specimen | + + | Blood | + + + + + + + | Performing | Address | City/State/Zipcode | Phone Number | | Organization | | | | + + + + + | REFERENCE LAB | [address] [facility] | [place] | [phone] | | [facility] | [address] | [address] | | | LABORATORY | | | | + + + + + | REFERENCE LAB | [address] [facility] | [place] | | | [facility] | [address] | [address] | | | LABORATORY | | | | + + + + + Lactate Dehydrogenase (03/27/2020 9:15 AM PDT) + + + + + + | Component | Value | Ref Range | Performed | Pathologist | | | | | At | Signature | + + + + + + | LDH TOTAL | 200Comment: Testing | 135 - 225 U/L | REFERENCE | | | | Performed at [facility], [address] | | LAB | | | | [address] | | [facility] | | | | [address], [place] | | LABORATORY | | | | [address] | | | | + + + + + + + + | Specimen | + + | Blood | + + + + + + + | Performing | Address | City/State/Zipcode | Phone Number | | Organization | | | | + + + + + | REFERENCE LAB | [address] [place] [address] | [place], [place] | [phone] | | [facility] | [address] | [address] | | | LABORATORY | | | | + + + + + | REFERENCE LAB | [address] [place] [address] | [place], [place] | | | [facility] | Bl[address] | [address] | | | LABORATORY | | | | + + + + + Slide Review, Peripheral Smear (03/27/2020 9:15 AM PDT) + + + + + + | Component | Value | Ref Range | Performed | Pathologist | | | | | At | Signature | + + + + + + | SLIDE | SLIDE TO | | REFERENCE | | | REVIEWED | GAMBOAComment: Testing | | LAB | | | | Performed at [facility], [address] | | [facility] | | | | [address] | | LABORATORY | | | | [address], [place] | | | | | | [address] | | | | + + + + + + + + | Specimen | + + | Blood | + + + + + + + | Performing | Address | City/State/Zipcode | Phone Number | | Organization | | | | + + + + + | REFERENCE LAB | [address] [facility] | [place] | [phone] | | [facility] | [address] | [address] | | | LABORATORY | | | | + + + + + | REFERENCE LAB | [address] [facility] | [place] | | | [facility] | [address] | [address] | | | LABORATORY | | | | + + + + + Comprehensive Metabolic Panel (03/27/2020 9:15 AM PDT) + + + + + + | Component | Value | Ref Range | Performed | Pathologist | | | | | At | Signature | + + + + + + | Na | 133 (L) | 135 - 145 | REFERENCE | | | | | mmol/L | LAB | | | | | | [facility] | | | | | | LABORATORY | | + + + + + + | K | 4.1 | 3.5 - 4.9 | REFERENCE | | | | | mmol/L | LAB | | | | | | [facility] | | | | | | LABORATORY | | + + + + + + | Cl | 96 (L) | 98 - 107 mmol/L | REFERENCE | | | | | | LAB | | | | | | [facility] | | | | | | LABORATORY | | + + + + + + | CO2 | 29 | 22 - 29 mmol/L | REFERENCE | | | | | | LAB | | | | | | [facility] | | | | | | LABORATORY | | + + + + + + | Anion Gap | 12 | 5 - 20 mmol/L | REFERENCE | | | | | | LAB | | | | | | [facility] | | | | | | LABORATORY | | + + + + + + | Glucose | 102 (H) | 74 - 99 mg/dL | REFERENCE | | | | | | LAB | | | | | | [facility] | | | | | | LABORATORY | | + + + + + + | BUN | 13 | 6 - 20 mg/dL | REFERENCE | | | | | | LAB | | | | | | [facility] | | | | | | LABORATORY | | + + + + + + | Creatinine | 0.85 | 0.7 - 1.2 mg/dL | REFERENCE | | | | | | LAB | | | | | | [facility] | | | | | | LABORATORY | | + + + + + + | BUN/Creatin | 15 | | REFERENCE | | | ine Ratio | | | LAB | | | | | | [facility] | | | | | | LABORATORY | | + + + + + + | Calcium | 9.3 | 8.6 - 10.2 | REFERENCE | | | | | mg/dL | LAB | | | | | | [facility] | | | | | | LABORATORY | | + + + + + + | Protein, | 7.2 | 6.5 - 8.5 g/dL | REFERENCE | | | Total | | | LAB | | | | | | [facility] | | | | | | LABORATORY | | + + + + + + | Albumin | 4.0 | 3.3 - 5 g/dL | REFERENCE | | | | | | LAB | | | | | | [facility] | | | | | | LABORATORY | | + + + + + + | Globulin | 3.2 | 1.3 - 4.9 g/dL | REFERENCE | | | | | | LAB | | | | | | [facility] | | | | | | LABORATORY | | + + + + + + | A/G Ratio | 1.3 | 1.0 - 2.4 | REFERENCE | | | | | | LAB | | | | | | [facility] | | | | | | LABORATORY | | + + + + + + | BILIRUBIN, | 0.3 | 0.2 - 1 mg/dL | REFERENCE | | | TOTAL | | | LAB | | | | | | [facility] | | | | | | LABORATORY | | + + + + + + | ALK PHOS | 60 | 40 - 125 U/L | REFERENCE | | | | | | LAB | | | | | | [facility] | | | | | | LABORATORY | | + + + + + + | AST | 13 | 5 - 40 U/L | REFERENCE | | | | | | LAB | | | | | | [facility] | | | | | | LABORATORY | | + + + + + + | ALT | 14 | 5 - 41 U/L | REFERENCE | | | | | | LAB | | | | | | [facility] | | | | | | LABORATORY | | + + + + + + | Estimated | >60Comment: GFR <60: | >60 | REFERENCE | | | GFR | CHRONIC KIDNEY DISEASE, | mL/min/1.73m2 | LAB | | | | IF FOUND OVER A 3 MONTH | | [facility] | | | | PERIOD.GFR <15: KIDNEY | | LABORATORY | | | | FAILURE.FOR | | | | | | AMERICANS, MULTIPLY THE | | | | | | CALCULATED GFR BY | | | | | | 1.210.This eGFR is | | | | | | calculated using the | | | | | | MDRD IDMS traceable | | | | | | equation.Testing | | | | | | Performed at [facility], [address] | | | | | | [address] | | | | | | [address], [place] | | | | | | [address] | | | | + + + + + + + + | Specimen | + + | Blood | + + + + + + + | Performing | Address | City/State/Zipcode | Phone Number | | Organization | | | | + + + + + | REFERENCE LAB | [address] | [place] | [phone] | | [facility] | Bl[address] | [address] | | | LABORATORY | | | | + + + + + | REFERENCE LAB | [address] | [place] | | | [facility] | Bl[address] | [address] | | | LABORATORY | | | | + + + + + CBC with Differential (03/27/2020 9:15 AM PDT) + + + + + + | Component | Value | Ref Range | Performed | Pathologist | | | | | At | Signature | + + + + + + | WBC | 10.40 | 3.80 - 11.00 | REFERENCE | | | | | K/uL | LAB | | | | | | [facility] | | | | | | LABORATORY | | + + + + + + | Red Blood | 4.19 (L) | 4.20 - 5.70 | REFERENCE | | | Cells | | M/uL | LAB | | | | | | [facility] | | | | | | LABORATORY | | + + + + + + | Hemoglobin | 11.9 (L) | 13.2 - 17.0 | REFERENCE | | | | | g/dL | LAB | | | | | | [facility] | | | | | | LABORATORY | | + + + + + + | Hematocrit | 36.0 (L) | 39.0 - 50.0 % | REFERENCE | | | | | | LAB | | | | | | [facility] | | | | | | LABORATORY | | + + + + + + | MCV | 85.9 | 80.0 - 100.0 fl | REFERENCE | | | | | | LAB | | | | | | [facility] | | | | | | LABORATORY | | + + + + + + | MCH | 28.5 | 27.0 - 34.0 pg | REFERENCE | | | | | | LAB | | | | | | [facility] | | | | | | LABORATORY | | + + + + + + | MCHC | 33.2 | 32.0 - 35.5 | REFERENCE | | | | | g/dL | LAB | | | | | | [facility] | | | | | | LABORATORY | | + + + + + + | RDW-SD | 43.3 | 37 - 53 fl | REFERENCE | | | | | | LAB | | | | | | [facility] | | | | | | LABORATORY | | + + + + + + | Platelet | 488 (H) | 150 - 400 K/uL | REFERENCE | | | Count | | | LAB | | | | | | [facility] | | | | | | LABORATORY | | + + + + + + | MPV | 7.1 | fl | REFERENCE | | | | | | LAB | | | | | | [facility] | | | | | | LABORATORY | | + + + + + + | Diff Type | AUTOMATED | | REFERENCE | | | | | | LAB | | | | | | [facility] | | | | | | LABORATORY | | + + + + + + | % | 73.01 | % | REFERENCE | | | Neutrophils | | | LAB | | | | | | [facility] | | | | | | LABORATORY | | + + + + + + | % | 10.11 | % | REFERENCE | | | Lymphocytes | | | LAB | | | | | | [facility] | | | | | | LABORATORY | | + + + + + + | Monocyte % | 12.07 | % | REFERENCE | | | | | | LAB | | | | | | [facility] | | | | | | LABORATORY | | + + + + + + | Eosinophils | 3.49 | % | REFERENCE | | | % | | | LAB | | | | | | [facility] | | | | | | LABORATORY | | + + + + + + | Basophils % | 1.32 | % | REFERENCE | | | | | | LAB | | | | | | [facility] | | | | | | LABORATORY | | + + + + + + | Neutrophils | 7.59 (H) | 1.90 - 7.40 | REFERENCE | | | , Absolute | | K/uL | LAB | | | | | | [facility] | | | | | | LABORATORY | | + + + + + + | Absolute | 1.05 | 1.00 - 3.90 | REFERENCE | | | Lymphocytes | | K/uL | LAB | | | | | | [facility] | | | | | | LABORATORY | | + + + + + + | Absolute | 1.26 (H) | 0.00 - 0.80 | REFERENCE | | | Monocytes | | K/uL | LAB | | | | | | [facility] | | | | | | LABORATORY | | + + + + + + | Eosinophils | 0.36 | 0.00 - 0.50 | REFERENCE | | | , Absolute | | K/uL | LAB | | | | | | [facility] | | | | | | LABORATORY | | + + + + + + | Basophils, | 0.14 (H)Comment: Testing | 0.00 - 0.10 | REFERENCE | | | Absolute | Performed at [facility], [address] | LAB | | | | [address] | | [facility] | | | | [address] | | LABORATORY | | | | [address] | | | | + + + + + + + + | Specimen | + + | Blood | + + + + + + + | Performing | Address | City/State/Zipcode | Phone Number | | Organization | | | | + + + + + | REFERENCE LAB | [address] | [place] | [phone] | | [facility] | [address] | [address] | | | LABORATORY | | | | + + + + + | REFERENCE LAB | [address] [facility] | [place] | | | [facility] | [address] 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
--- OUTSIDE RECORDS SUMMARY | ~2020-06-23 | XMS | Encounter Summary ---
Demographics + + + | Address | [address] | | | [place] [address] | + + + | Home Phone [...] Author + + + | Author | [facility] | | | and [place] | + + + | Organization | [facility] | | [...] Team Providers + +------+ + | Care Budget Controller Name | Role | Phone | + +------+ + PCP | Unavailable | + +------+ + Encounter Details +--------+ + + + + | Date | Type | Department | Care Team | Description | +--------+ + + + + | 03/04/ | Imaging | [facility] | Provider, | | | 2019 | Exam | [facility] | MD [address] | | | | | IMAGING [address] | [address] | | | | | [address] | [place] [address] | | | | | [place] [address] | | | | | | [phone] | | | +--------+ + + + [...] [place] | | | | | | [address] | | | | | | | | +--------+ + + + + | 06/29/ | Office | Oncology | Wilton Jeff MD | | | 2019 | Visit | | [address] | | | | | | [place] | | | | | | [address] | | | | | | | | | | | | Marilou Mcmullen, | | | | | | CHILD PSYCHOMETRIST [address] | | | | | | [address] | | | | | | [place] [address] | | | | | | [phone] | | | | | | | | +--------+ + + + + | 06/29/ | Appointment | Infusion Therapy | Wilton Jeff MD | | | 2019 | | | [address] | | | | | | [place] | | | | | | [address] | | | | | | | | +--------+ + + + + | 07/14/ | Office | Otolaryngology | She Huang | | | 2019 | Visit | | DO Sophia Canela | | | | | | [place] [address] | | | | | | [place] [address] | | | | | | [phone] | | | | | | | | +--------+ + + + + | 07/20/ | Appointment | Infusion Therapy | Wilton Jeff MD | | | 2019 | | | [address] | | | | | | [place] | | | | | | [address] | | | | | | | | +--------+ + + + + | 07/20/ | Office | Oncology | Wilton Jeff MD | | | 2019 | Visit | | [address] | | | | | | [place] | | | | | | [address] | | | | | | | | +--------+ + + + + | 07/20/ | Appointment | Infusion Therapy | Wilton Jeff MD | | | 2019 | | | [address] | | | | | | [place] | | | | | | [address] | | | | | | | | +--------+ + + + + | 08/17/ | Appointment | Infusion Therapy | Wilton Jeff MD | | | 2019 | | | [address] | | | | | | [place] | | | | | | [address] | | | | | | | | +--------+ + + + + | 08/17/ | Office | Oncology | Wilton Jeff MD | | | 2019 | Visit | | [address] | | | | | | [place], [place] | | | | | | [address] | | | | | | | | +--------+ + + + + documented as of this encounter Procedures + +--------+ + + + | Procedure Name | Priori | Date/Time | Associated Diagnosis | Comments | | | ty | | | | + +--------+ + + + | CT CHEST W CONTRAST | Routin | 02/21/2020 | | Results for this | | | e | 12:00 AM | | procedure are in the | | | | PDT | | results section. | + +--------+ + + + documented in this encounter Results CT Chest w Contrast (02/21/2020 12:00 AM PDT) + + | Specimen [...]
--- OUTSIDE RECORDS SUMMARY | ~2020-06-23 | XMS | Encounter Summary ---
Demographics + + + | Address | [address] | | | [place] [address] | + + + | Home Phone | | + + + | Preferred Language | Unknown | + + + | Marital Status | Single | + + + | Evangelical Affiliation | Unknown | + + + | Race | White | + + + | Ethnic Group | Not or | + + + Author + + + | Author | [facility] | | | and [place] | + + + | Organization | [facility] | | | and [...] Team Providers + +------+ + | Care Easement Man Name | Role | Phone | + +------+ + | Myrna Mejia MD | PCP | | + +------+ + Reason for Visit Treatment/Therapy Plan (Routine) +--------+--------+ + + + + | Status | Reason | Specialty | Diagnoses / | Referred By | Referred To | | | | | Procedures | Contact | Contact | +--------+--------+ + + + + | Closed | | | Diagnoses | Jeff, | Hong Ho | | | | | Diffuse | MD Wilton | Infusion | | | | | large B-cell | [address] | Support | | | | | lymphoma of | [address] | Services | | | | | lymph nodes | [address] | [address] | | | | | of multiple | [place], | [address] | | | | | regions | [place] [address] | [address] [address] | | | | | (HCC) | Phone: | [place] | | | | | Procedures | [phone] | [address] | | | | | [place] ALTEPLASE | Fax: | Phone: | | | | | | [phone] | [phone] | | | | | RECOMBINANT, | | Fax: | | | | | 1 MG PORT | | [phone] | | | | | FLUSH | | | +--------+--------+ + + + + Encounter Details +--------+ + + + + | Date | Type | Department | Care Team | Description | +--------+ + + + + | 06/08/ | Hospital | [facility] | Wilton Jeff MD | Mediastinal large | | 2020 | Encounter | INFUSION SUPPORT | [address] | B-cell lymphoma of | | | | SERVICES [address] | [place], [place] | lymph nodes of | | | | [address] [place] | [phone] | multiple regions | | | | [address] [place], [place] | | (HCC) (Primary Dx); | | | | [address] | Monica Pulido Y, | Diffuse large B-cell | | | | [phone] | RN | lymphoma of lymph | | | | | | nodes of multiple | | | | | | regions (HCC) | +--------+ + + + + [...] + + documented as of this encounter Medications at Time of Discharge [...] capsules by | 240 | 5 | // | | | (ZOVIRAX) 200 mg | [...] Sore | | | | | | c-[id number]-et | Throat. | | | | | [...] documented as of this encounter Progress Notes Monica Pulido RN - 06/08/2020 9:30 AM PDTPort accessed; labs drawn; flushed and left accessed for tx today documented in this encounter Plan of Treatment +--------+ + + + + | Date | Type | Specialty | Care Team | Description | +--------+ + + + + | 06/29/ | Appointment | Infusion Therapy | Wilton Jeff MD | | 2019 | | | [address] | | | | | | [place] | | | | | | [address] | | | | | | | | +--------+ + + + + | 06/29/ | Office | Oncology | Wilton Jeff MD | | 2019 | Visit | | [address] | | | | | | [place] | | | | | | [address] | | | | | | | | | | | | Marilou Mcmullen, | | | | | | [place] [address] | | | | [address] | | | | | | [place] [address] | | | | | | [phone] | | | | | | | | +--------+ + + + + | 06/29/ | Appointment | Infusion Therapy | Wilton Jeff MD | | | 2019 | | | [address] | | | | | | [place] | | | | | | [address] | | | | | | | | +--------+ + + + + | 07/14/ | Office | Otolaryngology | She Huang | | 2019 | Visit | | DO Sophia Canela | | | | | | [address] | | | | | | [place] [address] | | | | | | [phone] | | | | | | | | +--------+ + + + + | 07/20/ | Appointment | Infusion Therapy | Wilton Jeff MD | | | 2019 | | | [address] | | | | | | [place] | | | | | | [address] | | | | | | | | +--------+ + + + + | 07/20/ | Office | Oncology | Wilton Jeff MD | | | 2019 | Visit | | [address] | | | | | | [place] | | | | | | [address] | | | | | | | | +--------+ + + + + | 07/20/ | Appointment | Infusion Therapy | Wilton Jeff MD | | | 2019 | | | [address] | | | | | | [place] | | | | | | [address] | | | | | | | | +--------+ + + + + | 08/17/ | Appointment | Infusion Therapy | Wilton Jeff MD | | | 2020 | | | [address] | | | | | | [place] | | | | | | [address] | | | | | | | | +--------+ + + + + | 08/17/ | Office | Oncology | Wilton Jeff MD | | | 2019 | Visit | | [address] | | | | | | [place] | | | | | | [address] | | | | | | | | +--------+ + + + + documented as of this encounter Procedures + +--------+ + + + | Procedure Name | Priori | Date/Time | Associated Diagnosis | Comments | | | ty | | | | + +--------+ + + + | CBC WITH | STAT | 06/08/2020 | Mediastinal large | Results for this | | DIFFERENTIAL | | 7:55 AM | 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 | | | | | multiple regions | | | | | | (HCC) | | + +--------+ + + + | COMPREHENSIVE | STAT | 06/08/2020 | Mediastinal large | Results for this | | METABOLIC PANEL | | 7:55 AM | 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 | | | | | multiple regions | | | | | | (HCC) | | + +--------+ + + + documented in this encounter Results Comprehensive Metabolic Panel (06/08/2020 7:55 AM PDT) + + + + + + | Component | Value | Ref Range | Performed | Pathologist | | | | | At | Signature | + + + + + + | Na | 138 | 135 - 145 | REFERENCE | | | | | mmol/L | LAB | | | | | | [facility] | | | | | | LABORAT[facility] | | + + + + + + | K | 4.0 | 3.5 - 4.9 | REFERENCE | | | | | mmol/L | LAB | | | | | | [facility] | | | | | | LABORATORY | | + + + + + + | Cl | 103 | 98 - 107 mmol/L | REFERENCE | | | | | | LAB | | | | | | [facility] | | | | | | LABORAT[facility] | | + + + + + + | CO2 | 25 | 22 - 29 mmol/L | REFERENCE | | | | | | LAB | | | | | | [facility] | | | | | | LAB[facility] | | + + + + + + | Anion Gap | 14 | 5 - 20 mmol/L | REFERENCE | | | | | | LAB | | | | | | [facility] | | | | | | [facility] | | + + + + + + | Glucose | 97 | 74 - 99 mg/dL | REFERENCE | | | | | | LAB | | | | | | [facility] | | | | | | LAB[facility]AT[facility] | | + + + + + + | BUN | 16 | 6 - 20 mg/dL | REFERENCE | | | | | | LAB | | | | | | [facility] | | | | | | LABORAT[facility] | | + + + + + + | Creatinine | 0.82 | 0.7 - 1.2 mg/dL | REFERENCE | | | | | | LAB | | | | | | [facility] | | | | | | LABORAT[facility] | | + + + + + + | BUN/Creatin | 20 | | REFERENCE | | | ine Ratio | | | LAB | | | | | | [facility] | | | | | | LABORATORY | | + + + + + + | Calcium | 9.5 | 8.6 - 10.2 | REFERENCE | | | | | mg/dL | LAB | | | | | | [facility] | | | | | | LABORAT[facility] | | + + + + + + | Protein, | 7.0 | 6.5 - 8.5 g/dL | REFERENCE | | | Total | | | LAB | | | | | | [facility] | | | | | | LABOR[facility] | | + + + + + + | Albumin | 4.6 | 3.3 - 5 g/dL | REFERENCE | | | | | | LAB | | | | | | [facility] | | | | | | [facility]OR[facility] | | + + + + + + | Globulin | 2.4 | 1.3 - 4.9 g/dL | REFERENCE | | | | | | LAB | | | | | | [facility] | | | | | | LAB[facility] | | + + + + + + | A/G Ratio | 1.9 | 1.0 - 2.4 | REFERENCE | [...] + + + | ALK PHOS | 90 | 40 - 125 U/L | REFERENCE | | | | | | LAB | | | | | | [facility] | | | | | | LABORAT[facility] | | + + + + + + | AST | 17 | 5 - 40 U/L | REFERENCE | | | | | | LAB | | | | | | [facility] | | | | | | [facility] | | + + + + + + | ALT | 21 | 5 - 41 U/L | REFERENCE [...] | | | | | [address], [place] | | | | | | [address] | | | | + + + + + + + + | Specimen | + + | Blood | + + + + + + + | Performing | Address | City/State/Zipcode | Phone Number | | Organization | | | | + + + + + | REFERENCE LAB | [address] | [place] | [phone] | | [facility] | [address] | [address] | | | LABORATORY | | | | + + + + + | REFERENCE LAB | [address] | [place] | | | [facility] | Blvd[address] | [address] | | | LABORATORY | | | | + + + + + CBC with Differential (06/08/2020 7:55 AM PDT) + + + + + + | Component | Value | Ref Range | Performed | Pathologist | | | | | At | Signature | + + + + + + | WBC | 17.72 (H) | 3.80 - 11.00 | REFERENCE | | | | | K/uL | LAB | | | | | | [facility] | | | | | | LABORAT[facility] | | + + + + + + | Red Blood | 3.68 (L) | 4.20 - 5.70 | REFERENCE | | | Cells | | M/uL | LAB | | | | | | [facility] | | | | | | LABORAT[facility] | | + + + + + + | Hemoglobin | 11.0 (L) | 13.2 - 17.0 | REFERENCE | | | | | g/dL | LAB | | | | | | [facility] | | | | | | LABOR[facility] | | + + + + + + | Hematocrit | 33.0 (L) | 39.0 - 50.0 % | REFERENCE | | | | | | LAB | | | | | | [facility] | | | | | | LABOR[facility] | | + + + + + + | MCV | 89.6 | 80.0 - 100.0 fl | REFERENCE | | | | | | LAB | | | | | | [facility] | | | | | | LABOR[facility] | | + + + + + + | MCH | 29.9 | 27.0 - 34.0 pg | REFERENCE | | | | | | LAB | | | | | | [facility] | | | | | | LABORAT[facility] | | + + + + + + | MCHC | 33.3 | 32.0 - 35.5 | REFERENCE | | | | | g/dL | LAB | | | | | | [facility] | | | | | | LABORAT[facility] | | + + + + + + | RDW-SD | 69.1 (H) | 37 - 53 fl | REFERENCE | | | | | | LAB | | | | | | [facility] | | | | | | LABORAT[facility] | | + + + + + + | Platelet | 308 | 150 - 400 K/uL | REFERENCE | | | Count | | | LAB | | | | | | [facility] | | | | | | LABORAT[facility] | | + + + + + + | MPV | 7.3 | fl | REFERENCE | | | | | | LAB | | | | | | [facility] | | | | | | LABORAT[facility] | | + + + + + + | Diff Type | MANUAL | | REFERENCE | | | | | | LAB | | | | | | [facility] | | | | | | LAB[facility] | | + + + + + + | % Segmented | 60 | % | REFERENCE | | | | | | LAB | | | Neutrophils | | | [facility] | | | | | | LABORAT[facility] | | + + + + + + | % Bands | 20 | % | REFERENCE | | | | | | LAB | | | | | | [facility] | | | | | | LAB[facility] | | + + + + + + | % | 5 | % | REFERENCE | | | Metamyelocy | | | LAB | | | tracy | | | [facility] | | | | | | LABORATORY | | + + + + + + | % | 7 | % | REFERENCE | | | Lymphocytes | | | LAB | | | | | | [facility] | | | | | | LAB[facility] | | + + + + + + | % Monocytes | 8 | % | REFERENCE | | | | | | LAB | | | | | | [facility] | | | | | | [facility] | | + + + + + + | Neutrophils | 10.63 (H) | 1.90 - 7.40 | REFERENCE | | | , Absolute | | K/uL | LAB | | | | | | [facility] | | | | | | LABORAT[facility] | | + + + + + + | Absolute | 3.54 (H) | 0.00 - 0.20 | REFERENCE | | | Band | | K/uL | LAB | | | Neutrophils | | | [facility] | | | | | | LABORATORY | | + + + + + + | Absolute | 0.89 (H) | 0.00 K/uL | REFERENCE | | | Metamyelocy | | | LAB | | | tracy | | | [facility] | | | | | | LABORATORY | | + + + + + + | Absolute | 1.24 | 1.00 - 3.90 | REFERENCE | | | Lymphocytes | | K/uL | LAB | | | | | | [facility] | | | | | | LABORATORY | | + + + + + + | Absolute | 1.42 (H) | 0.00 - 0.80 | REFERENCE | | | Monocytes | | K/uL | LAB | | | | | | [facility] | | | | | | LABORATORY | | + + + + + + | RBC | 3+Comment: | | REFERENCE | | | Morphology | ANISO1+TEARDROPNORMAL | | LAB | | | | PLT MORPHTesting | | [facility] | | | | Performed at L, [address] | | LABORATORY | | | | [address] | | | | | | [address], [place] | | | | | | [address] | | | | | | | | | | + + + + + + + + | Specimen | + + | Blood | + + + + + + + | Performing | Address | City/State/Zipcode | Phone Number | | Organization | | | | + + + + + | REFERENCE LAB | [address] [place], [place] [address] | [place] | [phone] | | [facility] | Bl[address] | [address] | | | LABORATORY | | | | + + + + + | REFERENCE LAB | [address] [place] [address] | [place], [place] | | | [facility] | Blvd[address] 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
--- OUTSIDE RECORDS SUMMARY | ~2020-06-23 | XMS | Encounter Summary ---
Demographics + + + | Address | [address] | | | [place] [address] | + + + | Home Phone [...] Author + + + | Author | [facility] | | | and [place] | + + + | Organization | [facility] | | | and [place] | + + + | Address | Unknown | + + + | Phone | Unavailable | + + + Support + + +---------+ + | Name | Relationship | Address | Phone | + + +---------+ + | Marcos Mrogan | ECON | Unknown | | + + +---------+ + Care Team Providers + +------+ + | Care Renewable Energy Technician Name | Role | Phone | + +------+ + | Myrna Mejia MD | PCP | | + +------+ + Reason for Visit Diagnostic/Screening (Routine) +--------+--------+ + + + + | Status | Reason | Specialty | Diagnoses / | Referred By | Referred To | | | | | Procedures | Contact | Contact | +--------+--------+ + + + + | Closed | | | Diagnoses | Tomer, | [facility] | | | | | Other | MD Wilton | Pulmonary | | | | | classical | [address] | Function Lab | | | | | Hodgkin | [address] | [address] | | | | | lymphoma of | [address] | [address] | | | | | lymph nodes | [place], | [facility] [place] | | | | | of multiple | [place] [address] | [address] | | | | | regions | Phone: | Phone: | | | | | ([facility]) | [phone] | [phone] | | | | | Procedures | Fax: | Fax: | | | | | PULM FULL | [phone] | [phone] | | | | | PFT | | | +--------+--------+ + + + + Encounter Details +--------+ + + + + | Date | Type | Department | Care Team | Description | +--------+ + + + + | 03/31/ | Hospital | [facility] | Wilton Jeff MD | 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 FUNCTION | [address] | Hodgkin lymphoma of | | | | LAB [address] | [place] | lymph nodes of | | | | [place], [place] | [address] | multiple regions | | | | [address] | | ([facility]) | | | | [phone] | | | +--------+ + + + [...] + + | Comments: quit 02/22/2020 / chucho 1 can tobacco/week | + + + [...] + + + +---------+ + + | albuterol | Inhale 2 puffs into | | 0 | | | | (VENTOLIN HFA) 90 | the lungs every 6 | | | | 0 | | mcg/puff inhaler | hours as needed for | | | | | | | Wheezing. | | | | | + + + +---------+ + + | albuterol 2.5 mg/3 | | | 0 | 03/04/20 | | | mL nebulizer | | | | 20 | 0 | | solution | | | | | | + + + +---------+ + + | famotidine | Daily. | | 0 | 03/04/20 | | | (PEPCID) 20 mg | | | | 20 | 0 | | tablet | | | | | | + + + +---------+ + + | | Take 1 tablet by | 30 | 0 | 03/27/20 | | | HYDROcodone-acetamin | mouth every 6 hours | tablet | | 20 | 0 | | ophen (NORCO) 5-325 | as needed for Pain. | | | | | | mg per | | | | | | | tabletIndications: | | | | | | | Other classical | | | | | | | Hodgkin lymphoma of | | | | | | | lymph nodes of | | | | | | | multiple regions | | | | | | | (HCC) | | | | | | + + + +---------+ + + | naproxen | Take 500 mg by mouth | | 0 | | | | (NAPROSYN) 500 mg | 2 times daily (with | | | | 0 | | tablet | breakfast & | | | | | | | dinner). | | | | | + + + +---------+ + + | ondansetron | 3 times daily. | | 0 | 03/04/20 | | | (ZOFRAN) 4 mg tablet | | | | 20 | 0 | + + + +---------+ + + [...] [place] | | | | | | [address] | | | | | | | | +--------+ + + + + | 06/29/ | Office | Oncology | Wilton Jeff MD | | | 2019 | Visit | | [address] | | | | | | [place] | | | | | | [address] | | | | | | | | | | | | Marilou Mcmullen, | | | | | | COMPANY MANAGER [address] | | | | | [address] | | | | | | [place] [address] | | | | | | [phone] | | | | | | | | +--------+ + + + + | 06/29/ | Appointment | Infusion Therapy | Wilton Jeff MD | | | 2019 | | | [address] | | | | | | [place] | | | | | | [address] | | | | | | | | +--------+ + + + + | 07/14/ | Office | Otolaryngology | She Huang | | | 2019 | Visit | | DO Sophia Canela | | | | | | [place] [address] | | | | | | [place] [address] | | | | | | [phone] | | | | | | | | +--------+ + + + + | 07/20/ | Appointment | Infusion Therapy | Wilton Jeff MD | | | 2019 | | | [address] | | | | | | [place] | | | | | | [address] | | | | | | | | +--------+ + + + + | 07/20/ | Office | Oncology | Wilton Jeff MD | | | 2019 | Visit | | [address] | | | | | | [place] | | | | | | [address] | | | | | | | | +--------+ + + + + | 07/20/ | Appointment | Infusion Therapy | Wilton Jeff MD | | | 2019 | | | [address] | | | | | | [place] | | | | | | [address] | | | | | | | | +--------+ + + + + | 08/17/ | Appointment | Infusion Therapy | Wilton Jeff MD | | | 2019 | | | [address] | | | | | | [place] | | | | | | [address] | | | | | | | | +--------+ + + + + | 08/17/ | Office | Oncology | Wilton Jeff MD | | | 2020 | Visit | | [address] | | | | | | [place] | | | | | | [address] | | | | | | | | +--------+ + + + + documented as of this encounter Procedures + +--------+ + + + | Procedure Name | Priori | Date/Time | Associated Diagnosis | Comments | | | ty | | | | + +--------+ + + + | PFT PULMONARY | STAT | 03/31/2020 | Other classical | | | FUNCTION TESTING | | 1:49 PM | Hodgkin lymphoma of | | | ORDERS | | PDT | lymph nodes of | | | | | | multiple [...] | | | + +--------+ +--------+------+------+ | albuterol 2.5 mg/3 mL nebulizer | Given | 03/31/20 | 2.5 mg | | | | solution 2.5 mg 2.5 mg, | | 20 2:16 | | | | | Nebulization, RT Once, Tue | | PM PDT | | | | | 03/31/20 at 1445, For 1 dose, Dose | | | | | | | for outpatient testing., | | | | | | + +--------+ +--------+------+------+ +---+---+ | | | +---+---+ documented in this encounter"
--- OUTSIDE RECORDS SUMMARY | ~2020-06-23 | XMS | Encounter Summary ---
Demographics + + + | Address | [address] | | | [place] [address] | + + + | Home Phone [...] Author + + + | Author | [facility] | | | and [place] | + + + | Organization | [facility] | | | [...] Team Providers + +------+ + | Care Flight Operation Coordinator Name | Role | Phone | + [...] + + | 06/23/ | Telephone | [facility] | Lizbet Rios | Triage | | 2019 | | HEMATOLOGY AND | [facility] | | | | | ONCOLOGY INFUSIONS | | | | | | [address] | | | | | | [place] | | | | | | [address] | | | | | | [phone] | | | +--------+ + + + [...] this encounter Miscellaneous Notes Telephone Encounter - Lizbet Rios RN - 06/23/2020 2:27 PM PDTTELEPHONE TRIAGE: S BAR Situation: Routing to Provider, Tomer, requesting review [...] proceed to nearest ED which is in [place], [place]. Patient has card wi th current [...] [place] | | | | | | [address] | | | | | | | | +--------+ + + + + | 06/29/ | Office | Oncology | Wilton Jeff MD | | | 2019 | Visit | | [address] | | | | | | [place] | | | | | | [address] | | | | | | | | | | | | Marilou Mcmullen, | | | | | | INFORMATION SYSTEMS ADMINISTRATOR [address] | | | | | [address] | | | | | | [place] [address] | | | | | | [phone] | | | | | | | | +--------+ + + + + | 06/29/ | Appointment | Infusion Therapy | Wilton Jeff MD | | | 2019 | | | [address] | | | | | | [place] | | | | | | [address] | | | | | | | | +--------+ + + + + | 07/14/ | Office | Otolaryngology | She Huang | | | 2019 | Visit | | DO Sophia Canela | | | | | | [address] [facility] | | | | | | [place] [address] | | | | | | [phone] | | | | | | | | +--------+ + + + + | 07/20/ | Appointment | Infusion Therapy | Wilton Jeff MD | | | 2019 | | | [address] | | | | | | [place] | | | | | | [address] | | | | | | | | +--------+ + + + + | 07/20/ | Office | Oncology | Wilton Jeff MD | | | 2019 | Visit | | [address] | | | | | | [place] | | | | | | [address] | | | | | | | | +--------+ + + + + | 07/20/ | Appointment | Infusion Therapy | Wilton Jeff MD | | | 2019 | | | [address] | | | | | | [place] | | | | | | [address] | | | | | | | | +--------+ + + + + | 08/17/ | Appointment | Infusion Therapy | Wilton Jeff MD | | | 2019 | | | [address] | | | | | | [place] | | | | | | [address] | | | | | | | | +--------+ + + + + | 08/17/ | Office | Oncology | Wilton Jeff MD | | | 2019 | Visit | | [address] | | | | | | [place] | | | | | | [address] | | | | | | | | +--------+ + + + + documented as of this encounter Visit Diagnoses Not on filedocumented in this encounter"
--- OUTSIDE RECORDS SUMMARY | ~2020-06-23 | XMS | Encounter Summary ---
Demographics + + + | Address | [address] | | | [place] [address] | + + + | Home Phone | | + + + | Preferred Language | Unknown | + + + | Marital Status | Single | + + + | Samaritan Affiliation | Unknown | + + + [...] Team Providers + +------+ + | Care Clinical Trial Data Manager Name | Role | Phone | + +------+ + | Myrna Mejia MD | PCP | | + +------+ + Reason for Visit +--------+ + | Reason | Comments | +--------+ + | LABS | | +--------+ + Encounter Details +--------+ + + + + | Date | Type | Department | Care Team | Description | +--------+ + + + + | 05/18/ | Hospital | [facility] | Wilton Jeff MD | Diffuse large B-cell | | 2019 | Encounter | INFUSION SUPPORT | [address] | lymphoma of lymph | | | | SERVICES [address] | [place] | nodes of multiple | | | | [address] [place] | [address] | regions (HCC) | | | | [address] [place] | | (Primary Dx) | | | | [address] | Paz Walton RN | | | | | [phone] | | | +--------+ + + + [...] Sore | | | | | | [id number] | Throat. | | | | | [...] documented as of this encounter Progress Notes Paz Walton RN - 05/18/2020 8:15 AM PDTMedi-port accessed, blood drawn, saline locked. P ort left accessed for treatment today. documented in this encou nter Plan of Treatment +--------+ + + + + | Date | Type | Specialty | Care Team | Description | +--------+ + + + + | 06/29/ | Appointment | Infusion Therapy | Wilton Jeff MD | | 2019 | | | [address] | | | | | | [place] | | | | | | [address] | | | | | | | | +--------+ + + + + | 06/29/ | Office | Oncology | Wilton Jeff MD | | | 2019 | Visit | | [address] | | | | | | [place] | | | | | | [address] | | | | | | | | | | | | Marilou Mcmullen, | | | | | | [address] [address] | | | [address] | | | | | | [place] [address] | | | | | | [phone] | | | | | | | | +--------+ + + + + | 06/29/ | Appointment | Infusion Therapy | Wilton Jeff MD | | | 2019 | | | [address] | | | | | | [place] | | | | | | [address] | | | | | | | | +--------+ + + + + | 07/14/ | Office | Otolaryngology | Seh Huang | | | 2019 | Visit | | J, DO [address] | | | | | | [place] [address] | | | | | | [phone] | | | | | | | | +--------+ + + + + | 07/20/ | Appointment | Infusion Therapy | Wilton Jeff MD | | | 2019 | | | [address] | | | | | | [place] | | | | | | [address] | | | | | | | | +--------+ + + + + | 07/20/ | Office | Oncology | Wilton Jeff MD | | | 2019 | Visit | | [address] | | | | | | [place] | | | | | | [address] | | | | | | | | +--------+ + + + + | 07/20/ | Appointment | Infusion Therapy | Wilton Jeff MD | | | 2019 | | | [address] | | | | | | [place] | | | | | | [address] | | | | | | | | +--------+ + + + + | 08/17/ | Appointment | Infusion Therapy | Wilton Jeff MD | | | 2019 | | | [address] | | | | | | [place] | | | | | | [address] | | | | | | | | +--------+ + + + + | 08/17/ | Office | Oncology | Wilton Jeff MD | | | 2019 | Visit | | [address] | | | | | | [place] | | | | | | [address] | | | | | | | | +--------+ + + + + documented as of this encounter Visit Diagnoses + + | Diagnosis | + + | 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
--- OUTSIDE RECORDS SUMMARY | ~2020-06-23 | XMS | Encounter Summary ---
Demographics + + + | Address | [address] | | | [place] [address] | + + + | Home Phone [...] Author + + + | Author | [facility] | | | and [place] | + + + | Organization | [facility] | | | [...] Team Providers + +------+ + | Care [employer] Name | Role | Phone | + +------+ + | Myrna Mejia MD | PCP | | + +------+ + Reason for Visit +--------+--------+ + | Reason | Onset | Comments | | | Date | | +--------+--------+ + | Triage | 04/03/ | | | | 2020 | | +--------+--------+ + Encounter Details +--------+ + + + + | Date | Type | Department | Care Team | Description | +--------+ + + + + | 04/03/ | Telephone | [facility] | HelioTina RN | Triage | | 2019 | | INFUSION SUPPORT | | | | | | SERVICES [address] | | | | | [address] | | | | | | [address] [place] | | | | | | [address] | | | | | | [phone] | | | +--------+ + + + [...] Telephone Encounter - Wilton Jeff MD - 04/03/2020 5:17 PM PDTIf symptoms worsen I agree that he must go to the ER. I am working on modifying the chemo order. Pls tell him to start allopurinol tomorrow and drink plenty of water. elephone Encounter - Tina Cadet RN - 03/06 4:51 PM PDTDx: B-Cell Lymphoma Tx: R-EPOCH (has not started yet) Patient called triage reporting: Chest pressure with reclining "Feels like my throat is tight" "Eden fine when I sat up straight" "I was laying flat on my friends couch and was really uncomfortable. My friend has a cat and I have never been around cats before". During the entire course of the phone call, I heard no audible signs of respiratory distres s. He was not SOB, did not cough, and his voice sounded normal and not distressed at all. I asked him if his throat felt swollen, if his eyes were itching or swollen, or if his feel ing of chest pressure and throat tightness was still present. He then stated that "I put ice on my neck about 15 minutes ago and am sitting up and I feel much better". He did also mention that their air conditioning went out which was why he wa s at his friends house. The air conditioning is now fixed and he is on his way home. I encouraged him to continue the ice packs, to possibly try taking OTC benadryl, and that a s long as things continued to improve and resolve he was ok to just relax in the cool at [facility]. I encouraged him that if his symptoms worsened at all, if he had any further difficulty martin athing, he was to go directly to the nearest ER for evaluation. He stated full understandin g and compliance with these recommendations. I then discussed with him to start taking the allopurinol tomorrow. And, to take the allop urinol, the bactrim and the prednisone with him to the hospital Monday evening when will be admitted to start chemo on . He will start bactrim and prednisone on his EPOCH regimen. I also instructed him to come Monday at 0730 for his lab draw prior to starting his Rituxan infusion. documented in this encounter Plan of Treatment [...] [place] | | | | | | [id number] | | | | | | | | +--------+ + + + + | 06/29/ | Office | Oncology | Wilton Jeff MD | | 2019 | Visit | | [address] | | | | | | [place] | | | | | | [id number] | | | | | | | | | | | | Marilou Mcmullen, | | | | | | [address] [address] | | | | | [address] | | | | | | [place] [address] | | | | | | [phone] | | | | | | | | +--------+ + + + + | 06/29/ | Appointment | Infusion Therapy | Wilton Jeff MD | | | 2019 | | | [address] | | | | | | [place] | | | | | | [address] | | | | | | | | +--------+ + + + + | 07/14/ | Office | Otolaryngology | She Huang | | | 2019 | Visit | | DO Sophia Canela | | | | | | [facility] [address] | | | | | | [place] [address] | | | | | | [phone] | | | | | | | | +--------+ + + + + | 07/20/ | Appointment | Infusion Therapy | Wilton Jeff MD | | | 2019 | | | [address] | | | | | | [place] | | | | | | [address] | | | | | | | | +--------+ + + + + | 07/20/ | Office | Oncology | Wilton Jeff MD | | | 2019 | Visit | | [address] | | | | | | [place] | | | | | | [address] | | | | | | | | +--------+ + + + + | 07/20/ | Appointment | Infusion Therapy | Wilton Jeff MD | | | 2019 | | | [address] | | | | | | [place] | | | | | | [address] | | | | | | | | +--------+ + + + + | 08/17/ | Appointment | Infusion Therapy | Wilton Jeff MD | | | 2019 | | | [address] | | | | | | [place] | | | | | | [address] | | | | | | | | +--------+ + + + + | 08/17/ | Office | Oncology | Wilton Jeff MD | | | 2020 | Visit | | [address] | | | | | | [place] | | | | | | [id number] | | | | | | | | +--------+ + + + + documented as of this encounter Visit Diagnoses Not on filedocumented in this encounter
--- OUTSIDE RECORDS SUMMARY | ~2020-06-23 | XMS | Encounter Summary ---
Demographics + + + | Address | [address] | | | [place] [address] | + + + | Home Phone [...] Author + + + | Author | [facility] | | | and [place] | + + + | Organization | [facility] | | | [...] Team Providers + +------+ + | Care Engineer [employer] Name | Role | Phone | + +------+ + | Myrna Mejia MD | PCP | | + +------+ + Reason for Referral Diagnostic/Screening (Emergency) + +--------+ + + + + | Status | Reason | Specialty | Diagnoses / | Referred By | Referred To | | | | | Procedures | Contact | Contact | + +--------+ + + + + | Authorized | | Radiology | Diagnoses | Tomer, | Elieserc Echo | | | | | Other | MD Elodia | [address] | | | | | classical | [address] | | | | | Hodgkin | [address] | [place], [place] | | | | | lymphoma of | AVE | [address] | | | | | lymph nodes | [place], | Phone: | | | | | of multiple | [place] [address] | [phone] | | | | | regions | Phone: | Fax: | | | | | (HCC) High | [phone] | [phone] | | | | | risk | Fax: | | | | | | medication | [phone] | | | | | | use | | | | | | | Procedures | | | | | | | ECHO | | | | | | | Complete | | | + +--------+ + + + + Evaluate & Treat (Routine) +--------+ + + + + + | Status | Reason | Specialty | Diagnoses / | Referred By | Referred To | | | | | Procedures | Contact | Contact | +--------+ + + + + + | Closed | Specialty | Interventiona | Diagnoses | Tomer, | Hong | | | Services | l Radiology / | Other | MD Elodia | Interventiona | | | Required | Radiology | classical | [address] | l Radiology | | | | | Hodgkin | [address] | [address] | | | | | lymphoma of | [address]VE | [address] | | | | | lymph nodes | [place], | [place], [place] | | | | | of multiple | [place] [address] | [address] | | | | | regions | Phone: | Phone: | | | | | ([facility]) | [phone] | [phone] | | | | | | Fax: | Fax: | | | | | | [phone] | [phone] | +--------+ + + + + + Diagnostic/Screening (Emergency) + +--------+ + + + + | Status | Reason | Specialty | Diagnoses / | Referred By | Referred To | | | | | Procedures | Contact | Contact | + +--------+ + + + + | Pending | | Radiology | Diagnoses | Guerra, | c Nuclear | | Review | | | Other | MD Elodia | Medicine | | | | | classical | [address] | [address] | | | | | Hodgkin | [address] | | | | | lymphoma of | AVE | [place], [place] | | | | | lymph nodes | [place], | [address] | | | | | of ju[place] | [place] [address] | Phone: | | | | | regions | Phone: | [phone] | | | | | ([facility]) | [phone] | Fax: | | | | | Procedures | Fax: | [phone] | | | | | NM Cardiac | [phone] | | | | | | MUGA Scan | | | + +--------+ + + + + Reason for Visit + + + | Reason | Comments | + + + | Consultation | Initial Oncology Consult | + + + Evaluate & Treat (Urgent) + +--------+ + + + + | Status | Reason | Specialty | Diagnoses / | Referred By | Referred To | | | | | Procedures | Contact | Contact | + +--------+ + + + + | Authorized | | Hematology | Diagnoses | Jake, | Guerra, | | | | and Oncology | | Tali | MD Elodia | | | | / Oncology | Lymphadenopa | MD Naheed | [address] | | | | | thy of head | [address] | | | | | and neck | [place] | [place], | | | | | region | [place] | [place] [address] | | | | | Onc/New/Head | [place], [place] | Phone: | | | | | -Neck | [address] | [phone] | | | | | | Phone: | Fax: | | | | | | [phone] | [phone] | | | | | | Fax: | | | | | | | [phone] | | + +--------+ + + + + Encounter Details +--------+---------+ + + + | Date | Type | Department | Care Team | Description | +--------+---------+ + + + | 03/27/ | Office | [facility] | Elodia Guerra MD | Other classical | | 2019 | Visit | HEMATOLOGY AND | [address] | Hodgkin lymphoma of | | | | ONCOLOGY [address] | [place] | lymph nodes of | | | | [address] | [address] | multiple regions | | | | [place] | | (HCC) (Primary Dx); | | | | [address] | | High risk medication | | | | [phone] | | use | +--------+---------+ + + + Social History [...] + + + | Blood Pressure | 138/78 | 03/27/2020 10:03 AM | | | | | PDT | | + + + + + | Pulse | 102 | 03/27/2020 10:03 AM | | | | | PDT | | + + + + + | Temperature | 36.4 C (97.6 F) | 03/27/2020 10:03 AM | | | | | PDT | | + + + + + | Respiratory Rate | 16 | 03/27/2020 10:03 AM | | | | | PDT | | + + + + + | Oxygen Saturation | 100% | 03/27/2020 10:03 AM | | | | | PDT | | + + + + + | Inhaled Oxygen | - | - | | | Concentration | | | | + + + + + | Weight | 83.5 kg (184 lb) | 03/27/2020 10:03 AM | | | | | PDT | | + + + + + | Height | 181 cm (5' 11.25") | 03/27/2020 10:03 AM | | | | | PDT | | + + + + + | Body Mass Index | 25.48 | 03/27/2020 10:03 AM | | | | | PDT | | + + + + + documented in this encounter H&P Notes Elodia Guerra MD - 03/27/2020 10:30 AM PDTFormatting of this note might be different from t he original. [facility] Hematology & Oncology Initial Oncology Consultation Patient Name: ASAD LONGO Date of : 1990 Age: 29 y.o. Referring Provider: Dr. Joseph PCP: Myrna Mejia MD Dear Dr. Joseph, On March 27, 2020, I had the privilege of seeing your patient, Mr. Asad Longo, in c onsultation. I am certain that you are fully apprised of his medical history, but I would li ke to review it here for the sake of our mutual medical records. Reason for Consultation/Cancer Diagnosis and Stage Cancer Staging No matching staging information was found for the patient. History of Present Illness Mr. Asad Longo is a pleasant 29 y.o. male with no significant past medical history who began experiencing cough, pleuritic chest pain, dyspnea on exertion and URI symptoms be ing October 2019. He was initially treated with [...] right deep cervical lymph nod e. Pathology is pending, but per my discussion with Dr. Davis pathology, it is either classi bernie Hodgkin lymphoma versus primary mediastinal B cell non-Hodgkin lymphoma. Asad presents today with his mother for medical oncology consultation. At today's visit, he feels well. He continues to report pleuritic chest pain, shortness of breath and occasio nal coughing. He has not had any fevers. He denies any headaches, blurring of vision, or d izziness. He has no other complaints today other than that listed in the review of systems. Oncology History Oncology History No history exists. Medical History No Known Allergies Past Medical History: Diagnosis Date Chronic cough 2019 Chronic headaches 2 x's per month History of pneumonia Lymphoma involving lung (HCC) 2020 right lung mass Past Surgical History: Procedure [...] medical history above reviewed and updated on 03/27/2020 Medications Current Outpatient Medications Medication Sig Dispense [...] No current facility-administered medications for this visit. Medications reviewed and updated on 03/27/2020 Review of Systems Review of Systems Constitutional: Positive for fatigue and unexpected weight change (30 pound weight loss sin ce September 2019). Negative for fever. HENT: Negative for hearing loss, nosebleeds, sinus pain, sore throat and trouble swallowing . Eyes: Negative for visual disturbance. Respiratory: Positive for cough and shortness of breath. Negative for chest tightness and w heezing. Cardiovascular: Negative. Gastrointestinal: Negative. Genitourinary: Negative. Musculoskeletal: Negative. Skin: Negative. Neurological: Negative. Hematological: Positive for adenopathy (Bilateral cervical and axillary lymphadenopathy). D oes not bruise/bleed easily. Psychiatric/Behavioral: Negative. Physical Exam BP 138/78 | Pulse 102 | Temp 36.4 C (97.6 F) (Tympanic) | Resp 16 | Ht 1.81 m (5' 1 1.25") | Wt 83.5 kg (184 lb) | SpO2 100% | BMI 25.48 kg/m ECOG Performance Status: 0 Physical Exam Constitutional: Appearance: Normal appearance. HENT: Head: Normocephalic and atraumatic. Mouth/Throat: Pharynx: Oropharynx is clear. No oropharyngeal exudate or posterior oropharyngeal erythe ma. Eyes: General: No scleral icterus. Conjunctiva/sclera: Conjunctivae normal. Cardiovascular: Rate and Rhythm: Normal rate and regular rhythm. Pulses: Normal pulses. Heart sounds: No murmur. No friction rub. No gallop. Pulmonary: Effort: Pulmonary effort is normal. No respiratory distress. Breath sounds: No stridor. No wheezing, rhonchi or rales. Chest: Chest wall: No tenderness. Abdominal: General: Abdomen is flat. Bowel sounds are normal. There is no distension. Palpations: Abdomen is soft. There is no mass. Tenderness: There is no abdominal tenderness. There is no guarding. Hernia: No hernia is present. Musculoskeletal: Normal range of motion. General: No swelling, deformity or signs of injury. Right lower leg: No edema. Left lower leg: No edema. Lymphadenopathy: Cervical: Cervical adenopathy (Bilateral cervical lymphadenopathy) present. Skin: General: Skin is warm. Coloration: Skin is not jaundiced or pale. Findings: No bruising, erythema, lesion or rash. Neurological: General: No focal deficit present. Mental Status: He is alert and oriented to person, place, and time. Labs and Imaging Recent Results (from the past 24 hour(s)) Sedimentation Rate Result Value Ref Range ESR 50 (H) 0 - 15 mm/Hr Lactate Dehydrogenase Result Value Ref Range LDH TOTAL 200 135 - 225 U/L Slide Review, Peripheral Smear Result Value Ref Range SLIDE REVIEWED SLIDE TO DR GUERRA Comprehensive Metabolic Panel Result Value Ref Range Na 133 (L) 135 - 145 mmol/L K 4.1 3.5 - 4.9 mmol/L Cl 96 (L) 98 - 107 mmol/L CO2 29 22 - 29 mmol/L Anion Gap 12 5 - 20 mmol/L Glucose 102 (H) 74 - 99 mg/dL BUN 13 6 - 20 mg/dL Creatinine 0.85 0.7 - 1.2 mg/dL BUN/Creatinine Ratio 15 Calcium 9.3 8.6 - 10.2 mg/dL Protein, Total 7.2 6.5 - 8.5 g/dL Albumin 4.0 3.3 - 5 g/dL Globulin 3.2 1.3 - 4.9 g/dL A/G Ratio 1.3 1.0 - 2.4 BILIRUBIN, TOTAL 0.3 0.2 - 1 mg/dL ALK PHOS 60 40 - 125 U/L AST 13 5 - 40 U/L ALT 14 5 - 41 U/L Estimated GFR >60 >60 mL/min/1.73m2 CBC with Differential Result Value Ref Range WBC 10.40 3.80 - 11.00 K/uL Red Blood Cells 4.19 (L) 4.20 - 5.70 M/uL Hemoglobin 11.9 (L) 13.2 - 17.0 g/dL Hematocrit 36.0 (L) 39.0 - 50.0 % MCV 85.9 80.0 - 100.0 fl MCH 28.5 27.0 - 34.0 pg MCHC 33.2 32.0 - 35.5 g/dL RDW-SD 43.3 37 - 53 fl Platelet Count 488 (H) 150 - 400 K/uL MPV 7.1 fl Diff Type AUTOMATED % Neutrophils 73.01 % % Lymphocytes 10.11 % Monocyte % 12.07 % Eosinophils % 3.49 % Basophils % 1.32 % Neutrophils, Absolute 7.59 (H) 1.90 - 7.40 K/uL Absolute Lymphocytes 1.05 1.00 - 3.90 K/uL Absolute Monocytes 1.26 (H) 0.00 - 0.80 K/uL Eosinophils, Absolute 0.36 0.00 - 0.50 K/uL Basophils, Absolute 0.14 (H) 0.00 - 0.10 K/uL . Assessment Mr. Asad Longo is a pleasant 29 y.o. male with bilateral cervical, bilateral supra clavicular mediastinal, bilateral hilar and bilateral axillary lymphadenopathy. A biopsy of a right supraclavicular lymph node is consistent with a lymphoma, most likely a classical H odgkin lymphoma focal primary mediastinal B cell non-Hodgkin's lymphoma is a possibility. A ccording to Dr. Franko Davis pathology, results should be available by Monday next week (Mar). I had a long discussion with Asad and his mother regarding his medical history today. We discussed the results of his imaging studies and pathology. I am most suspicious for a Hodg kin lymphoma given pain seen on PET scan, his age, male gender, and results of preliminary p athology. However, we must wait for the results of final pathology as a treatment of Hodgki n lymphoma is very different from the treatment of primary mediastinal B cell non-Hodgkin ly mphoma. I did tell the patient that regardless of pathology, both Hodgkin lymphoma and primary medi astinal B cell non-Hodgkin lymphoma are curable conditions. Lymphomas in general also have a better prognosis than solid malignancies. While awaiting final pathology, we will work on getting a Mediport, MUGA scan, and pulmonar y function tests which are all required prior to the treatment of Hodgkin lymphoma. The patient has 2 children and is unsure whether he would like more children in the future. I explained to him that chemotherapy can cause infertility, and if he is interested, I marshal l initiate a referral to reproductive medicine for semen cryopreservation. As we have final pathology results, we will contact the patient to discuss the most appropr iate therapeutic options. Plan At the end of today's discussion, the patient expressed understanding and willingness to pr oceed with the plan as outlined below: 1. Await results of pathology. 2. Mediport placement. 3. MUGA scan. 4. Full PFT. 5. Virtual visit in 1 week to discuss pathology results and further therapeutic options. 6. Refill for Percocet was issued. 7. Smoking cessation. 8. The patient was counseled not to go back to smoking. 9. The patient was counseled on the signs and symptoms of an ominous hematologic/oncologic process, and he knows to call if these were to occur. 10. The patient was counseled on the signs and symptoms that may indicate progression/recur rence of his cancer, and he knows to call if this were to occur. All the patient's questions were answered to his satisfaction. The patient is to call with any questions or concerns. I would like to thank Dr. Joseph for the courtesy of this referral. Elodia Guerra MD [facility] Hematology & Oncology 03/27/2020 Portions of this chart may have been [...] Addendum Note - Elodia Guerra MD - 03/27/2020 10:30 AM PDT Addended by: ELODIA GUERRA O on: 03/30/2020 09:02 AM Modules accepted: Orders documented in this enc [...] [place] | | | | | | [address] | | | | | | | | +--------+ + + + + | 06/29/ | Office | Oncology | Elodia Guerra MD | | | 2019 | Visit | | [address] | | | | | | [place] | | | | | | [address] | | | | | | | | | | | | Marilou Mcmullen, | | | | | | [employer] [address] | | | | | | [address] | | | | | | [place] [address] | | | | | | [phone] | | | | | | | | +--------+ + + + + | 06/29/ | Appointment | Infusion Therapy | Elodia Guerra MD | | | 2019 | | | [address] | | | | | | [place] | | | | | | [address] | | | | | | | | +--------+ + + + + | 07/14/ | Office | Otolaryngology | She Huang | | | 2019 | Visit | | DO Sophia Canela | | | | | | [address] | | | | | | [place] [address] | | | | | | [phone] | | | | | | | | +--------+ + + + + | 07/20/ | Appointment | Infusion Therapy | Elodia Guerra MD | | | 2019 | | | [address] | | | | | | [place] | | | | | | [address] | | | | | | | | +--------+ + + + + | 07/20/ | Office | Oncology | Elodia Guerra MD | | | 2019 | Visit | | [address] | | | | | | [place] | | | | | | [address] | | | | | | | | +--------+ + + + + | 07/20/ | Appointment | Infusion Therapy | Elodia Guerra MD | | | 2019 | | | [address] | | | | | | [place] | | | | | | [address] | | | | | | | | +--------+ + + + + | 08/17/ | Appointment | Infusion Therapy | Elodia Guerra MD | | | 2019 | | | [address] | | | | | | [place] | | | | | | [address] | | | | | | | | +--------+ + + + + | 08/17/ | Office | Oncology | Elodia Guerra MD | | | 2019 | Visit | | [address] | | | | | | [place] | | | | | | [address] | | | | | | | | +--------+ + + + + + + +--------+ + + | Name | Type | Priori | Associated Diagnoses | Order Schedule | | | | ty | | | + + +--------+ + + | ECHO Complete | Echocardiog | STAT | Other classical | Expected: | | | magdi | | Hodgkin lymphoma of | 03/30/2020, Expires: | | | | | lymph nodes of | 03/30/2021 | | | | | multiple regions | | | | | | (HCC) High risk | | | | | | medication use | | + + +--------+ + + + + +--------+ + + | Name | Type | Priori | Associated Diagnoses | Order Schedule | | | | ty | | | + + +--------+ + + | Ambulatory referral | Outpatient | Routin | Other classical | Ordered: 03/27/2020 | | to Interventional | Referral | e | Hodgkin lymphoma of | | | Radiology | | | lymph nodes of | | | | | | multiple regions | | | | | | (HCC) | | + + +--------+ + + documented as of this encounter Results NM Cardiac MUGA Scan (03/30/2020 11:30 AM PDT) + + | Specimen | + + | | + + + + + | Impressions | Performed At | + + + | 1. Left ventricular ejection fraction of 57% which is normal. 2. | [facility] | | Normal ventricular size. No segmental wall motion abnormalities. 3. | | | No prior study for comparison. Final Report Signed by: | | | Ananth Bauman, Rocky Sign Date/Time: 03/30/2020 12:06 PM | | + + + + + + | Narrative | Performed At | + + + | GATED POOL BLOOD STUDY CLINICAL INFORMATION: Chemo; assess | [facility] | | EF; Hodgkin lymphoma COMPARISON: None PROCEDURE: The patient | | | was injected intravenously with 18.7 mCi of technetium PYP labeled | | | red cells and a gated blood pool study performed. FINDINGS: The | | | study shows no dilation of the left ventricle. The left ventricular | | | ejection fraction is 57%. Normally expected in a resting state is a | | | left ventricular ejection fraction of 50-75%. There is no segmental | | | wall motion abnormality. | | + + + + + | Procedure Note | + + | Stan, [id number] - 03/30/2020 12:10 PM PDT | | GATED POOL BLOOD STUDY | | | | CLINICAL INFORMATION: | | Chemo; assess EF; Hodgkin lymphoma | | | | COMPARISON: | | None | | | | PROCEDURE: | | The patient was injected intravenously with 18.7 mCi of technetium PYP | | labeled red cells and a gated blood pool study performed. | | | | FINDINGS: | | The study shows no dilation of the left ventricle. The left ventricular | | ejection fraction is 57%. Normally expected in a resting state is a | | left ventricular ejection fraction of 50-75%. There is no segmental | | wall motion abnormality. | | | | IMPRESSION: | | 1. Left ventricular ejection fraction of 57% which is normal. | | 2. Normal ventricular size. No segmental wall motion abnormalities. | | 3. No prior study for comparison. | | | | | | | | Final Report Signed by: Ananth Bauman Isaac | | Sign Date/Time: 03/30/2020 12:06 PM | + + + +---------+ + + [...] (HCC) - Primary | + + | High risk medication use Encounter for long-term (current) use of other medications | + + documented in this encounter
--- OUTSIDE RECORDS SUMMARY | ~2020-06-23 | XMS | Encounter Summary ---
Demographics + + + | Address | [address] | | [place] [address] | + + + | Home Phone | | + + + | Preferred Language | Unknown | + + + | Marital Status | Single | + + + | Uatsdin Affiliation | Unknown | + + + | Race | White | + + + | Ethnic Group | Not or | + + + Author + + + | Author | [facility] | | | and [place] | + + + | Organization | [facility] | | | [...] Team Providers + +------+ + | Care Agriscience Technology Instructor Name | Role | Phone | + [...] | | | | | classical | [address] | Function Lab | | | | | Hodgkin | [address] | [address] | | | | | lymphoma of | [address] | [address] | | | | | lymph nodes | [place], | [facility] [place] [place] | | | | | of multiple | [place] [address] | [address] | | | | | regions | Phone: | Phone: | | | | | (FORMERLY [facility]) | [phone] | [phone] | | | | | Procedures | Fax: | Fax: | | | | | PULM FULL | [phone] | [phone] | | | | | PFT | | | +--------+--------+ + + + + Encounter Details +--------+ + + + + | Date | Type | Department | Care Team | Description | +--------+ + + + + | 03/31/ | Hospital [facility] | Wilton Jeff MD | 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 FUNCTION | [address] | Hodgkin lymphoma of | | | | LAB [address] | [place] | lymph nodes of | | | | [place], [place] | [address] | multiple regions | | | | [address] | | ([facility]) | | | | [phone] | | | +--------+ + + + [...] [place] | | | | | | [address] | | | | | | | | +--------+ + + + + | 06/29/ | Office | Oncology | Wilton Jeff MD | | | 2019 | Visit | | [address] | | | | | | [place] | | | | | | [address] | | | | | | | | | | | | Marilou Mcmullen, | | | | | | PIPELINE ENGINEER [address] | | | | | | [address] | | | | | | [place] [address] | | | | | | [phone] | | | | | | | | +--------+ + + + + | 06/29/ | Appointment | Infusion Therapy | Wilton Jeff MD | | | 2019 | | | [address] | | | | | | [place] | | | | | | [address] | | | | | | | | +--------+ + + + + | 07/14/ | Office | Otolaryngology | [facility] | | | 2019 | Visit | | DO Sophia Canela | | | | | | [place] [address] | | | | | | [place] [address] | | | | | | [phone] | | | | | | | | +--------+ + + + + | 07/20/ | Appointment | Infusion Therapy | Wilton Jeff MD | | | 2019 | | | [address] | | | | | | [place] | | | | | | [address] | | | | | | | | +--------+ + + + + | 07/20/ | Office | Oncology | Wilton Jeff MD | | | 2019 | Visit | | [address] | | | | | | [place] | | | | | | [address] | | | | | | | | +--------+ + + + + | 07/20/ | Appointment | Infusion Therapy | Wilton Jeff MD | | | 2019 | | | [address] | | | | | | [place] | | | | | | [address] | | | | | | | | +--------+ + + + + | 08/17/ | Appointment | Infusion Therapy | Wilton Jeff MD | | | 2019 | | | [address] | | | | | | [place] | | | | | | [address] | | | | | | | | +--------+ + + + + | 08/17/ | Office | Oncology | Wilton Jeff MD | | | 2020 | Visit | | [address] | | | | | | [place] | | | | | | [address] | | | | | | | [...]
--- OUTSIDE RECORDS SUMMARY | ~2020-06-23 | XMS | Encounter Summary ---
Demographics + + + | Address | [address] | | [place] [address] | + + + | Home Phone [...] Author + + + | Author | [facility] | | | and [place] | + + + | Organization | [facility] | [...] Team Providers + +------+ + | Care Gravity Manager Name | Role | Phone | [...] | of multiple | [place], | [place] [address] | | | | | regions | [place] [address] | Phone: | | | | | (HCC) | Phone: | [phone] | | | | | Procedures | [phone] | Fax: | | | | | [place] | Fax: | [phone] | | | | | VINCRISTINE | [phone] | | | | | | SULFATE 1 MG | | | | | | | INJ NC | | | | | | | DOXORUBICIN | | | | | | | HCL | | | | | | | INJECTION, | | | | | | | 10 MG NC | | | | | | | CYCLOPHOSPHA | | | | | | | MIDE 100 MG | | | | | | | INJ NC | | | | | | | ETOPOSIDE | | | | | | | INJECTION, | | | | | | | 10 MG NC | | | | | | | PALONOSETRON | | | | | | | HCL, 25 MCG | | | | | | | NC | | | | | | | INJECTION, | | | | | | | UDENYCA 0.5 | | | | | | | MG NC INJ | | | | | | | TRUXIMA 10 | | | | | | | MG [id number] - | | | | | | | NC INJ | | | | | | | TRUXIMA 10 | | | | | | | MG- | | | | | | | RITUXIMAB-ab | | | | | | | bs [id number] - | | | | | | | NC | | | | | | | VINCRISTINE | | | | | | | SULFATE 1 MG | | | | | | | INJ [id number] | | | | | | | - NC | | | | | | | DOXORUBICIN | | | | | | | HCL | | | | | | | INJECTION, | | | | | | | 10 MG- DOXO | | | | | | | [id number] - NC | | | | | | | | | | | | | | CYCLOPHOSPHA | | | | | | | MIDE 100 MG | | | | | | | INJ- CYTOXAN | | | | | | | [id number] - | | | | | | | NC ETOPOSIDE | | | | | | | INJECTION, | | | | | | | 10 MG [id number] | | | | | | | - NC | | | | | | | INJECTION, | | | | | | | UDENYCA 0.5 | | | | | | | MG [id number] - | | | | | | | NC | | | | | | | PALONOSETRON | | | | | | | HCL, 25 | | | | | | | MCG- ALOXI | | | + +--------+ + + + + Encounter Details +--------+ + + + + | Date | Type | Department | Care Team | Description | +--------+ + + + + | 04/06/ | Hospital | [facility] | Wilton Jeff MD | 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 | | | | ONCOLOGY INFUSIONS | [place], [place] | lymph nodes of | | | | [address] | [address] | multiple regions | | | | [address] [place], [place] | | (HCC) (Primary Dx) | | | | [address] | Gertrudis Arriola RN | | | | | [phone] | | | +--------+ + + + [...] + + + | Blood Pressure | - | - | | + + + + + | Pulse | - | - | | + + + + + | Temperature | - | - | | + + + + + | Respiratory Rate | - | - | | + + + + + | Oxygen Saturation | - | - | | + + + + + | Inhaled Oxygen | - | - | | | Concentration | | | | + + + + + | Weight | 85.1 kg (187 lb 9.8 | 04/06/2020 8:00 AM | | | | oz) | PDT | | + + + + + | Height | 181 cm (5' 11.26") | 04/06/2020 8:00 AM | | | | | PDT | | + + + + + | Body Mass Index | 25.98 | 04/06/2020 8:00 AM | | | | | PDT | | + + + + + documented in this encounter Discharge Instructions Patient Instructions Gertrudis Arriola RN - 04/06/2020 9:22 AM PDTFormatting of this note tabitha ht be different from the original. CHEMOTHERAPY EDUCATION Chemotherapy Drugs: JACK SPOOLER TENDER-16, Vincristine, Doxorubicin, cytoxan, prednisone and neulasta Chemotherapy is the use of drugs to treat cancer. Depending on your type of cancer, your d octor has chosen chemotherapy drugs to destroy or slow the growth of the cancer cells. Chem otherapy targets cells that rapidly grow and divide. Cancer cells divide more rapidly and u ncontrollably than healthy cells in our bodies. Nausea Medications: Ondansetron (Zofran) 8mg every 8 hours as needed and Prochlorperazine ( Compazine) 10mg every 6 hours as needed The goals of my chemotherapy treatment are Curative Chemotherapy treatment will be every 21 days for 6 cycles. Physician: Dr. Jeff Chemotherapy Enterprise Services Manager: Kaylee Ash Triage Nurse Hours: Monday-Monday 8 am-5 pm; After hours and weekend You have started on Chemotherapy. If you experience any of the following problems, call the office immediately: ? Fever greater than 100.4 degrees or any sign of infection, such as a sore throat, burning on urination, or cough containing yellow/green sputum. ? Nausea or vomiting not relieved by the anti-nausea medicine which has been prescribed. ? Any unexplained bleeding. ? Diarrhea more than 5 times per day. ? Constipation more than 3 days. ? Sores in the mouth that interfere with eating. ? Headache, changes is balance. ? Any unusual physical symptom that began after chemotherapy started ? Sensation changes in feet or hands. During weekdays, call and ask to speak directly to the Triage nurse. After hours, weekends or holidays, call and ask to speak to one of the on-call physicians. For non- urgent issues, you may leave a message on the answering service. For emergencies call 911 Because Chemotherapy destroys the most rapidly growing and dividing cells in our bodies, th ere are side effects that you need to be aware of and watch for to maintain your physical an d emotional wellbeing during treatment. 1. Altered Blood Counts: Your blood is made up of three basic types of cells; red cells, white cells and platelets. Your doctor will monitor your CBC (Complete Blood Count) during chemotherapy because chemotherapy can reduce the number of blood cells in your body. This r eduction increases your risk of infection, fatigue and bleeding and can disrupt your chemoth erapy dose and schedule. To Prevent Infections: (White Blood Cells) ? Avoid Crowds or people that are sick with colds, the flu etc. ? Wash your hands frequently, especially at meal times, after using the bathroom, or when t ouching your face. ? Watch for signs of infections such as fever, cough, burning with urination, pain, swellin g or redness and call right away at the first sign ? Check your temperature if you feel chilled, hot or not feeling well. Call for fever of 1 00.4 or greater ? Practice good personal hygiene daily ? Your Oncologist may prescribe a subcutaneous injection to stimulate the production of whi te blood cells to help your immune system recover in between treatment. This is called a Gr anulocyte-colony stimulating factor or (G-CSF) and it goes by many different brand names. ? The short acting G-CSF is generally given on a daily basis ? The long acting G-CSF is given once as a subcutaneous injection or an on-body injector ? The most common side effect is bone pain. Talk to your Oncologist regarding the best way to relieve persistent bone pain related to G-CSF To Prevent Bleeding: (Platelets) ? Use an electric razor when shaving ? Avoid cuts, scratches and bruising ? Wear gloves when gardening or during heavy manual labor ? Call if you experience nose bleeds that will not stop or multiple bruises To Prevent Fatigue: (Red Blood Cells) ? Keep active within the limits of your strength and fatigue tolerance. ? Continue doing the activities which interest you prioritize! Rest when you need it. ? Eat foods that are high in iron to build up your red blood cells fresh spinach, raisi ns, and prunes. Ask nurse for list. 2. Nausea and Vomiting: Chemotherapy may cause nausea (a sick stomach) or vomiting. You w ill receive intravenous nausea medication before each chemotherapy treatment. Oral nausea m edications (pills) should be taken at home to prevent nausea you may experience later. Take those on a frequent schedule for a day or two after your treatment. Call if you have nause a or vomiting for more than 24 hours that is not controlled by your prescribed nausea pills. 3. Oral Hygiene: Good mouth hygiene during chemotherapy is very important. Several chemot herapies can cause mouth irritation or sores. ? Stella your teeth after every meal and at bedtime with a soft toothbrush ? Avoid mouthwash with alcohol in it ? After meals, gargle with 1quart warm water, 1tsp salt and 1tsp baking soda rinses ? Inspect your mouth, tongue and gums daily for changes ? Call for any signs of mouth sores or white patches ? Check with your doctor before having any dental work done. 4. Maintaining Bowel Function: Chemotherapy can change your bowel functioning. You may ex perience constipation and/or diarrhea. ? Call for diarrhea more than 5 times per day. ? Call for constipation longer than 3 days. ? Avoid straining during bowel movements to prevent bleeding or skin breaks My Bowel Plan: For Diarrhea You may use Immodium AD per package directions. Drink fluids with electrolytes. Fol low the BRAT diet (Bananas, Rice, Applesauce, and [place]). You may use a Sitzbath, or D esitin rash cream for tender skin. Avoid dairy. For Constipation- If no Bowel movement after 2 days, you may take Senekot-S two tablets at bedtime, Y akima Fruit paste as Directed, Milk of Magnesia, Miralax, Maintain soft regular stool. 5. Hair and Skin Changes: Chemotherapy can cause varying degrees of alopecia (hair loss) a nd skin or nail changes. ? Wigs and scarves are available at the [facility] free of charge ? Avoid excess exposure to the sun. Many chemotherapy drugs may increase the burning effec ts of the sun or cause an ichy rash. ? Report any rashes or skin changes 6. Diet and Nutrition: Eating a healthy, balanced diet is important to your recovery and m aintaining your health during chemotherapy. Chemotherapy can alter your sense of taste and appetite. ? Avoid spicy, acidic or greasy foods, especially on the days of chemotherapy ? Eat high fiber foods such as leafy vegetables or whole grain breads, especially if experi encing constipation ? Get protein into your diet to help rebuild your body. Start a daily multivitamin with iro n. ? Drinking fluids is very important to maintaining good kidney function and preventing dehy dration and constipation. ? Drink at least 8-10 glasses of water daily ? Avoid alcohol 7. Sexuality and Cancer Treatments: Chemotherapy can change your sexual health and ability . Each person may experience these differently a. It is important to be on control during chemotherapy because chemotherapy can have harmful effects to the development of a fetus and to know whether this may cause you to be infertile. b. Lubricant may be needed due to dryness caused by the chemotherapy drugs. c. If you are experiencing changes or problems, talk with your doctor and nurses so they ca n help you through them. d. Use protection such as a condom for 48 hours after treatment because chemotherapy can be present in all bodily fluids during this time 8. Fertility for women: Chemotherapy can stop your ovaries from working. This causes infer tility, which can be temporary or permanent. It can also bring on menopause for women. a. Infertility means you can t get . b. Some chemotherapy drugs are more likely than others to cause infertility. Whether your i nfertility is temporary or permanent depends partly on your drugs and doses. You can ask you r Oncologist if the drugs you re taking are likely to make you infertile. 9. Fertility for men: Some chemotherapy drugs can affect a man s fertility. The infertili ty may be temporary or permanent. This depends on the drugs you have, the doses and your age . Permanent infertility is more likely if you have higher doses. Being infertile means you cannot have children. Not all chemotherapy drugs affect your ability to father a child. But some drugs can: a. Reduce the number of sperm you produce b. Affect the sperm's ability to fertilize an egg c. Talk to your doctor about your risk of infertility. They can tell you more about the pos sibility of storing sperm. 10. Taking Other Medications during Chemotherapy: While you are going through Chemotherapy , make sure your Oncologist is aware of all your normal, daily medications. Some over-the-c ounter and alternative/herbal treatments can interfere with the effectiveness of your chemot herapy treatments. Avoid Aspirin and Ibuprofen as they thin the blood 11. Pain: Call for pain in a new place or changes in your pain levels. Call for headaches not relieved by Tylenol or if it causes blurred vision. 12. WEB Sites for Cancer Patients: a. [place] [employer] www.cancer.org b. National Cancer [place] www.cancer.gov (ebooks available on website) c. Chem[employer] www.chemocare.com 13. Home Care Precautions: Chemotherapy is in body fluids for 48 hour. Do the following for 48 hours after chemotherap y: Flush toilet twice with lid down. If exposed wash well with soap and water several times . If possible, patients should use a separate toilet from others in the home. Caregivers we ar gloves if handling patient s body fluids. If disposable undergarments worn, place in s ealed plastic bag to dispose. Missed appointments: To obtain the best treatment outcomes for all patients, it is vital th at each patient arrive on time for provider and infusion appointments, especially when you a re not feeling well. If you are unable to make your appointment, please notify us as soon as possible and we will do our best to accommodate you. Pegfilgrastim injection Brand Names: Fulphila, Neulasta, UDENYCA, Ziextenzo What is this medicine? PEGFILGRASTIM (PEG fern gra stim) is a long-acting granulocyte colony-stimulating factor patrick t stimulates the growth of neutrophils, a type of white blood cell important in the body's f ight against infection. It is used to reduce the incidence of fever and infection in patient s with certain types of cancer who are receiving chemotherapy that affects the bone marrow, and to increase survival after being exposed to high doses of radiation. How should I use this medicine? This medicine is for injection under the skin. If you get this medicine at home, you will b e taught how to prepare and give the pre-filled syringe or how to use the On-body Injector. Refer to the patient Instructions for Use for detailed instructions. Use exactly as directed . Tell your healthcare provider immediately if you suspect that the On-body Injector may not have performed as intended or if you suspect the use of the On-body Injector resulted in a missed or partial dose. It is important that you put your used needles and syringes in a special sharps container. Do not put them in a trash can. If you do not have a sharps container, call your pharmacist or healthcare provider to get one. Talk to your post closer regarding the use of this medicine in children. While this drug m ay be prescribed for selected conditions, precautions do apply. What side effects may I notice from receiving this medicine? Side effects that you should report to your doctor or health women's health care nurse practitioner as soon as p ossible: allergic reactions like skin rash, itching or hives, swelling of the face, lips, or tong ue back pain dizziness fever pain, redness, or irritation at site where injected pinpoint red spots on the skin red or dark-brown urine shortness of breath or breathing problems stomach or side pain, or pain at the shoulder swelling tiredness trouble passing urine or change in the amount of urine Side effects that usually do not require medical attention (report to your doctor or health women's health care nurse practitioner if they continue or are bothersome): bone pain muscle pain What may interact with this medicine? Interactions have not been studied. Give your health care provider a list of all the medicines, herbs, non-prescription drugs, or dietary supplements you use. Also tell them if you smoke, drink alcohol, or use illegal d rugs. Some items may interact with your medicine. What if I miss a dose? It is important not to miss your dose. Call your doctor or health women's health care nurse practitioner if you miss your dose. If you miss a dose due to an On-body Injector failure or leakage, a new dose should be administered as soon as possible using a single prefilled syringe for manual use. Where should I keep my medicine? Keep out of the reach of children. If you are using this medicine at home, you will be instructed on how to store it. Throw aw ay any unused medicine after the expiration date on the label. What should I tell my health care provider before I take this medicine? They need to know if you have any of these conditions: kidney disease latex allergy ongoing radiation therapy sickle cell disease skin reactions to acrylic adhesives (On-Body Injector only) an unusual or allergic reaction to pegfilgrastim, filgrastim, other medicines, foods, dy es, or preservatives or trying to get breast-feeding What should I watch for while using this medicine? You may need blood work done while you are taking this medicine. If you are going to need a MRI, CT scan, or other procedure, tell your doctor that you are using this medicine (On-Body Injector only). NOTE:This sheet is a summary. It may not cover all possible information. If you have questi ons about this medicine, talk to your doctor, pharmacist, or health care provider. Copyright 2020 [employer] Prednisone tablets Brand Names: Deltasone, Predone, Sterapred, Sterapred DS What is this medicine? PREDNISONE (PRED ni sone) is a corticosteroid. It is commonly used to treat inflammation of the skin, joints, lungs, and other organs. Common conditions treated include asthma, allerg ies, and arthritis. It is also used for other conditions, such as blood disorders and diseas es of the adrenal glands. How should I use this medicine? Take this medicine by mouth with a glass of water. Follow the directions on the prescriptio n label. Take this medicine with food. If you are taking this medicine once a day, take it i n the morning. Do not take more medicine than you are told to take. Do not suddenly stop marzena ing your medicine because you may develop a severe reaction. Your doctor will tell you how m uch medicine to take. If your doctor wants you to stop the medicine, the dose may be slowly lowered over time to avoid any side effects. Talk to your post closer regarding the use of this medicine in children. Special care may be needed. What side effects may I notice from receiving this medicine? Side effects that you should report to your doctor or health women's health care nurse practitioner as soon as p ossible: allergic reactions like skin rash, itching or hives, swelling of the face, lips, or tong ue changes in emotions or moods changes in vision depressed mood eye pain fever or chills, cough, sore throat, pain or difficulty passing urine signs and symptoms of high blood sugar such as being more thirsty or hungry or having to urinate more than normal. You may also feel very tired or have blurry vision. swelling of ankles, feet Side effects that usually do not require medical attention (report to your doctor or health women's health care nurse practitioner if they continue or are bothersome): confusion, excitement, restlessness headache nausea, vomiting skin problems, acne, thin and shiny skin trouble sleeping weight gain What may interact with this medicine? Do not take this medicine with any of the following medications: metyrapone mifepristone This medicine may also interact with the following medications: aminoglutethimide amphotericin B aspirin and aspirin-like medicines barbiturates certain medicines for diabetes, like glipizide or glyburide cholestyramine cholinesterase inhibitors cyclosporine digoxin diuretics ephedrine female hormones, like estrogens and control pills isoniazid ketoconazole NSAIDS, medicines for pain and inflammation, like ibuprofen or naproxen phenytoin rifampin toxoids vaccines warfarin What if I miss a dose? If you miss a dose, take it as soon as you can. If it is almost time for your next dose, ta lk to your doctor or health women's health care nurse practitioner. You may need to miss a dose or take an extra dose. Do not take double or extra doses without advice. Where should I keep my medicine? Keep out of the reach of children. Store at room temperature between 15 and 30 degrees C (59 and 86 degrees F). Protect from l ight. Keep container tightly closed. Throw away any unused medicine after the expiration debra e. What should I tell my health care provider before I take this medicine? They need to know if you have any of these conditions: Felt's syndrome diabetes glaucoma heart disease high blood pressure infection (especially a virus infection such as chickenpox, cold sores, or herpes) kidney disease liver disease mental illness myasthenia gravis osteoporosis seizures stomach or intestine problems thyroid disease an unusual or allergic reaction to lactose, prednisone, other medicines, foods, dyes, or preservatives or trying to get breast-feeding What should I watch for while using this medicine? Visit your doctor or health women's health care nurse practitioner for regular checks on your progress. If you a re taking this medicine over a prolonged period, carry an identification card with your name and address, the type and dose of your medicine, and your doctor's name and address. This medicine may increase your risk of getting an infection. Tell your doctor or health ca re professional if you are around anyone with measles or chickenpox, or if you develop sores or blisters that do not heal properly. If you are going to have surgery, tell your doctor or health women's health care nurse practitioner that you hav e taken this medicine within the last twelve months. Ask your doctor or health women's health care nurse practitioner about your diet. You may need to lower the amou nt of salt you eat. This medicine may increase blood sugar. Ask your healthcare provider if changes in diet or medicines are needed if you have diabetes. NOTE:This sheet is a summary. It may not cover all possible information. If you have questi ons about this medicine, talk to your doctor, pharmacist, or health care provider. Copyright 2020 [employer] Cyclophosphamide injection Brand Names: Cytoxan, Neosar What is this medicine? CYCLOPHOSPHAMIDE (sye kloe MYLENE fa mide) is a chemotherapy drug. It slows the growth of can cer cells. This medicine is used to treat many types of cancer like lymphoma, myeloma, [facility], breast cancer, and ovarian cancer, to name a few. How should I use this medicine? This drug is usually given as an injection into a vein or muscle or by infusion into a vein . It is administered in a hospital or clinic by a specially trained health women's health care nurse practitioner . Talk to your post closer regarding the use of this medicine in children. Special care may be needed. What side effects may I notice from receiving this medicine? Side effects that you should report to your doctor or health women's health care nurse practitioner as soon as p ossible: allergic reactions like skin rash, itching or hives, swelling of the face, lips, or tong ue low blood counts - this medicine may decrease the number of white blood cells, red blood cells and platelets. You may be at increased risk for infections and bleeding. signs of infection - fever or chills, cough, sore throat, pain or difficulty passing uri ne signs of decreased platelets or bleeding - bruising, pinpoint red spots on the skin, alexa ck, tarry stools, blood in the urine signs of decreased red blood cells - unusually weak or tired, fainting spells, lighthead edness breathing problems dark urine dizziness palpitations swelling of the ankles, feet, hands trouble passing urine or change in the amount of urine weight gain yellowing of the eyes or skin Side effects that usually do not require medical attention (report to your doctor or health women's health care nurse practitioner if they continue or are bothersome): changes in nail or skin color hair loss missed menstrual periods mouth sores nausea, vomiting What may interact with this medicine? This medicine may interact with the following medications: amiodarone amphotericin B azathioprine certain antiviral medicines for HIV or AIDS such as protease inhibitors (e.g., indinavir , ritonavir) and zidovudine certain blood pressure medications such as benazepril, captopril, enalapril, fosinopril, lisinopril, moexipril, monopril, perindopril, quinapril, ramipril, trandolapril certain cancer medications such as anthracyclines (e.g., daunorubicin, doxorubicin), bus ulfan, cytarabine, paclitaxel, pentostatin, tamoxifen, trastuzumab certain diuretics such as chlorothiazide, chlorthalidone, hydrochlorothiazide, indapamid e, metolazone certain medicines that treat or prevent blood clots like warfarin certain muscle relaxants such as succinylcholine cyclosporine etanercept indomethacin medicines to increase blood counts like filgrastim, pegfilgrastim, sargramostim medicines used as general anesthesia metronidazole natalizumab What if I miss a dose? It is important not to miss your dose. Call your doctor or health women's health care nurse practitioner if you are unable to keep an appointment. Where should I keep my medicine? This drug is given in a hospital or clinic and will not be stored at home. What should I tell my health care provider before I take this medicine? They need to know if you have any of these conditions: blood disorders history of other chemotherapy infection kidney disease liver disease recent or ongoing radiation therapy tumors in the bone marrow an unusual or allergic reaction to cyclophosphamide, other chemotherapy, other medicines , foods, dyes, or preservatives or trying to get breast-feeding What should I watch for while using this medicine? Visit your doctor for checks on your progress. This drug may make you feel generally unwell . This is not uncommon, as chemotherapy can affect healthy cells as well as cancer cells. Re port any side effects. Continue your course of treatment even though you feel ill unless you r doctor tells you to stop. Drink water or other fluids as directed. Urinate often, even at night. In some cases, you may be given additional medicines to help with side effects. Follow all directions for their use. Call your doctor or health women's health care nurse practitioner for advice if you get a fever, chills or sore throat, or other symptoms of a cold or flu. Do not treat yourself. This drug decreases your body's ability to fight infections. Try to avoid being around people who are sick. This medicine may increase your risk to bruise or bleed. Call your doctor or health care pr ofessional if you notice any unusual bleeding. Be careful brushing and flossing your teeth or using a toothpick because you may get an inf ection or bleed more easily. If you have any dental work done, tell your dentist you are rec eiving this medicine. You may get drowsy or dizzy. Do not drive, use machinery, or do anything that needs mental alertness until you know how this medicine affects you. Do not become while taking this medicine or for 1 year after stopping it. Women ould inform their doctor if they wish to become or think they might be . Me n should not father a child while taking this medicine and for 4 months after stopping it. T here is a potential for serious side effects to an unborn child. Talk to your health care pr ofessional or pharmacist for more information. Do not breast-feed an infant while taking thi s medicine. This medicine may interfere with the ability to have a child. This medicine has caused ovar tyler failure in some women. This medicine has caused reduced sperm counts in some men. You ould talk with your doctor or health women's health care nurse practitioner if you are concerned about your ferti lity. If you are going to have surgery, tell your doctor or health women's health care nurse practitioner that you hav e taken this medicine. NOTE:This sheet is a summary. It may not cover all possible information. If you have questi ons about this medicine, talk to your doctor, pharmacist, or health care provider. Copyright 2020 [employer] Doxorubicin injection Brand Names: Adriamycin, Adriamycin PFS What is this medicine? DOXORUBICIN (dox oh JACINTA bi sin) is a chemotherapy drug. It is used to treat many kinds of c ancer like leukemia, lymphoma, neuroblastoma, sarcoma, and Wilms' tumor. It is also used to treat bladder cancer, breast cancer, lung cancer, ovarian cancer, stomach cancer, and thyroi d cancer. How should I use this medicine? This drug is given as an infusion into a vein. It is administered in a hospital or clinic b y a specially trained health women's health care nurse practitioner. If you have pain, swelling, burning or any u nusual feeling around the site of your injection, tell your health women's health care nurse practitioner right a way. Talk to your post closer regarding the use of this medicine in children. Special care may be needed. What side effects may I notice from receiving this medicine? Side effects that you should report to your doctor or health women's health care nurse practitioner as soon as p ossible: allergic reactions like skin rash, itching or hives, swelling of the face, lips, or tong ue breathing problems chest pain fast or irregular heartbeat low blood counts - this medicine may decrease the number of white blood cells, red blood cells and platelets. You may be at increased risk for infections and bleeding. pain, redness, or irritation at site where injected signs of infection - fever or chills, cough, sore throat, pain or difficulty passing uri ne signs of decreased platelets or bleeding - bruising, pinpoint red spots on the skin, alexa ck, tarry stools, blood in the urine swelling of the ankles, feet, hands tiredness weakness Side effects that usually do not require medical attention (report to your doctor or health women's health care nurse practitioner if they continue or are bothersome): diarrhea hair loss mouth sores nail discoloration or damage nausea red colored urine vomiting What may interact with this medicine? This medicine may interact with the following medications: 6-mercaptopurine paclitaxel phenytoin [place]'s Wort trastuzumab verapamil What if I miss a dose? It is important not to miss your dose. Call your doctor or health women's health care nurse practitioner if you are unable to keep an appointment. Where should I keep my medicine? This drug is given in a hospital or clinic and will not be stored at home. What should I tell my health care provider before I take this medicine? They need to know if you have any of these conditions: heart disease history of low blood counts caused by a medicine liver disease recent or ongoing radiation therapy an unusual or allergic reaction to doxorubicin, other chemotherapy agents, other medicin es, foods, dyes, or preservatives or trying to get breast-feeding What should I watch for while using this medicine? This drug may make you feel generally unwell. This is not uncommon, as chemotherapy can aff ect healthy cells as well as cancer cells. Report any side effects. Continue your course of treatment even though you feel ill unless your doctor tells you to stop. There is a maximum amount of this medicine you should receive throughout your life. The leena unt depends on the medical condition being treated and your overall health. Your doctor will watch how much of this medicine you receive in your lifetime. Tell your doctor if you have taken this medicine before. You may need blood work done while you are taking this medicine. Your urine may turn red for a few days after your dose. This is not blood. If your urine is dark or brown, call your doctor. In some cases, you may be given additional medicines to help with side effects. Follow all directions for their use. Call your doctor or health women's health care nurse practitioner for advice if you get a fever, chills or sore throat, or other symptoms of a cold or flu. Do not treat yourself. This drug decreases your body's ability to fight infections. Try to avoid being around people who are sick. This medicine may increase your risk to bruise or bleed. Call your doctor or health care pr ofessional if you notice any unusual bleeding. Talk to your doctor about your risk of cancer. You may be more at risk for certain types of cancers if you take this medicine. Do not become while taking this medicine or for 6 months after stopping it. Women should inform their doctor if they wish to become or think they might be . Men should not father a child while taking this medicine and for 6 months after stopping it. There is a potential for serious side effects to an unborn child. Talk to your health women's health care nurse practitioner or pharmacist for more information. Do not breast-feed an infant while taking t his medicine. This medicine has caused ovarian failure in some women and reduced sperm counts in some men This medicine may interfere with the ability to have a child. Talk with your doctor or [facility] women's health care nurse practitioner if you are concerned about your fertility. NOTE:This sheet is a summary. It may not cover all possible information. If you have questi ons about this medicine, talk to your doctor, pharmacist, or health care provider. Copyright 2020 [employer] Vincristine injection Brand Names: Oncovin, Vincasar PFS What is this medicine? VINCRISTINE (dat KRISTIN teen) is a chemotherapy drug. It slows the growth of cancer cells. Th is medicine is used to treat many types of cancer like Hodgkin's disease, leukemia, non-Hodg kin's lymphoma, neuroblastoma (brain cancer), rhabdomyosarcoma, and Wilms' tumor. How should I use this medicine? This drug is given as an infusion into a vein. It is administered in a hospital or clinic b y a specially trained health women's health care nurse practitioner. If you have pain, swelling, burning, or any unusual feeling around the site of your injection, tell your health women's health care nurse practitioner right away. Talk to your post closer regarding the use of this medicine in children. While this drug m ay be prescribed for selected conditions, precautions do apply. What side effects may I notice from receiving this medicine? Side effects that you should report to your doctor or health women's health care nurse practitioner as soon as p ossible: allergic reactions like skin rash, itching or hives, swelling of the face, lips, or tong ue breathing problems confusion or changes in emotions or moods constipation cough mouth sores muscle weakness nausea and vomiting pain, swelling, redness or irritation at the injection site pain, tingling, numbness in the hands or feet problems with balance, talking, walking seizures stomach pain trouble passing urine or change in the amount of urine Side effects that usually do not require medical attention (report to your doctor or health women's health care nurse practitioner if they continue or are bothersome): diarrhea hair loss jaw pain loss of appetite What may interact with this medicine? Do not take this medicine with any of the following medications: itraconazole mibefradil voriconazole This medicine may also interact with the following medications: cyclosporine erythromycin fluconazole ketoconazole medicines for HIV like delavirdine, efavirenz, nevirapine medicines for seizures like ethotoin, fosphenotoin, phenytoin medicines to increase blood counts like filgrastim, pegfilgrastim, sargramostim other chemotherapy drugs like cisplatin, L-asparaginase, methotrexate, mitomycin, paclit belkis pegaspargase vaccines zalcitabine, ddC Talk to your doctor or health women's health care nurse practitioner before taking any of these medicines: acetaminophen aspirin ibuprofen ketoprofen naproxen What if I miss a dose? It is important not to miss your dose. Call your doctor or health women's health care nurse practitioner if you are unable to keep an appointment. Where should I keep my medicine? This drug is given in a hospital or clinic and will not be stored at home. What should I tell my health care provider before I take this medicine? They need to know if you have any of these conditions: blood disorders gout infection (especially chickenpox, cold sores, or herpes) kidney disease liver disease lung disease nervous system disease like Pdywomw-Aesuz-Djdyw (CMT) recent or ongoing radiation therapy an unusual or allergic reaction to vincristine, other chemotherapy agents, other medicin es, foods, dyes, or preservatives or trying to get breast-feeding What should I watch for while using this medicine? Your condition will be monitored carefully while you are receiving this medicine. You will need important blood work done while you are taking this medicine. This drug may make you feel generally unwell. This is not uncommon, as chemotherapy can aff ect healthy cells as well as cancer cells. Report any side effects. Continue your course of treatment even though you feel ill unless your doctor tells you to stop. In some cases, you may be given additional medicines to help with side effects. Follow all directions for their use. Call your doctor or health women's health care nurse practitioner for advice if you get a fever, chills or sore throat, or other symptoms of a cold or flu. Do not treat yourself. Avoid taking products that contain aspirin, acetaminophen, ibuprofen, naproxen, or ketoprof en unless instructed by your doctor. These medicines may hide a fever. Do not become while taking this medicine. Women should inform their doctor if they wish to become or think they might be . There is a potential for serious s bhavana effects to an unborn child. Talk to your health women's health care nurse practitioner or pharmacist for more information. Do not breast-feed an infant while taking this medicine. Men may have a lower sperm count while taking this medicine. Talk to your doctor if you rosalinda n to father a child. NOTE:This sheet is a summary. It may not cover all possible information. If you have questi ons about this medicine, talk to your doctor, pharmacist, or health care provider. Copyright 2020 [employer] Etoposide, JACK SPOOLER TENDER-16 injection Brand Names: Etopophos, Toposar, VePesid What is this medicine? ETOPOSIDE, JACK SPOOLER TENDER-16 (e toe SRINATH side) is a chemotherapy drug. It is used to treat testicular ca ncer, lung cancer, and other cancers. How should I use this medicine? This medicine is for infusion into a vein. It is administered in a hospital or clinic by a specially trained health women's health care nurse practitioner. Talk to your post closer regarding the use of this medicine in children. Special care may be needed. What side effects may I notice from receiving this medicine? Side effects that you should report to your doctor or health women's health care nurse practitioner as soon as p ossible: allergic reactions like skin rash, itching or hives, swelling of the face, lips, or tong ue low blood counts - this medicine may decrease the number of white blood cells, red blood cells and platelets. You may be at increased risk for infections and bleeding. signs of infection - fever or chills, cough, sore throat, pain or difficulty passing uri ne signs of decreased platelets or bleeding - bruising, pinpoint red spots on the skin, alexa ck, tarry stools, blood in the urine signs of decreased red blood cells - unusually weak or tired, fainting spells, lighthead edness breathing problems changes in vision mouth or throat sores or ulcers pain, redness, swelling or irritation at the injection site pain, tingling, numbness in the hands or feet redness, blistering, peeling or loosening of the skin, including inside the mouth seizures vomiting Side effects that usually do not require medical attention (report to your doctor or health women's health care nurse practitioner if they continue or are bothersome): diarrhea hair loss loss of appetite nausea stomach pain What may interact with this medicine? aspirin certain medications for seizures like carbamazepine, phenobarbital, phenytoin, valproic acid cyclosporine levamisole warfarin What if I miss a dose? It is important not to miss your dose. Call your doctor or health women's health care nurse practitioner if you are unable to keep an appointment. Where should I keep my medicine? This drug is given in a hospital or clinic and will not be stored at home. What should I tell my health care provider before I take this medicine? They need to know if you have any of these conditions: infection kidney disease liver disease low blood counts, like low white cell, platelet, or red cell counts an unusual or allergic reaction to etoposide, other medicines, foods, dyes, or preservat yumi or trying to get breast-feeding What should I watch for while using this medicine? Visit your doctor for checks on your progress. This drug may make you feel generally unwell . This is not uncommon, as chemotherapy can affect healthy cells as well as cancer cells. Re port any side effects. Continue your course of treatment even though you feel ill unless you r doctor tells you to stop. In some cases, you may be given additional medicines to help with side effects. Follow all directions for their use. Call your doctor or health women's health care nurse practitioner for advice if you get a fever, chills or sore throat, or other symptoms of a cold or flu. Do not treat yourself. This drug decreases your body's ability to fight infections. Try to avoid being around people who are sick. This medicine may increase your risk to bruise or bleed. Call your doctor or health care pr ofessional if you notice any unusual bleeding. Talk to your doctor about your risk of cancer. You may be more at risk for certain types of cancers if you take this medicine. Do not become while taking this medicine or for at least 6 months after stopping i t. Women should inform their doctor if they wish to become or think they might be p regnant. Women of child-bearing potential will need to have a negative test before starting this medicine. There is a potential for serious side effects to an unborn child. T alk to your health women's health care nurse practitioner or pharmacist for more information. Do not breast-feed an infant while taking this medicine. Men must use a latex condom during sexual contact with a woman while taking this medicine a nd for at least 4 months after stopping it. A latex condom is needed even if you have had a vasectomy. Contact your doctor right away if your partner becomes . Do not donate sp erm while taking this medicine and for at least 4 months after you stop taking this medicine . Men should inform their doctors if they wish to father a child. This medicine may lower sp erm counts. NOTE:This sheet is a summary. It may not cover all possible information. If you have questi ons about this medicine, talk to your doctor, pharmacist, or health care provider. Copyright 2020 [employer] documented in this encounter Medications at Time [...] allopurinol | Take 1 tablet by | 14 | 0 | 04/02/20 | | | (ZYLOPRIM) 300 mg | mouth daily for a | tablet | | 20 | 0 | | tabletIndications: | total of 14 days. 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 | | | | | | ([facility]) | | | | | | + [...] | | | | | | | ([facility]) | | | | | | + [...] ondansetron | Take 1 tablet by | 30 | 11 | 04/02/20 | | | (ZOFRAN) 8 MG | mouth every 8 hours | tablet | | 20 | 0 | | tabletIndications: | as needed | | | | | | Mediastinal large | (Nausea/Vomiting). | | | | | | B-cell lymphoma of | | | | | | | lymph nodes of | | | | | | | multiple regions | | | | | | | ([facility]) | | | | | | + + + +---------+ + + | predniSONE | Take 6 tablets by | 60 | 11 | 04/03/20 | | | (DELTASONE) 20 mg | mouth 2 times daily | tablet | | 20 | 0 | | tabletIndications: | for 5 days starting | | | | | | Mediastinal large | the first day of | | | | | | B-cell lymphoma of | chemotherapy in the | | | | | | lymph nodes of | hospital.. | | | | | | multiple regions | | | | | | | (HCC) | | | | | | + + + +---------+ + + | predniSONE | Take 2 tablets | 30 | 2 | 04/02/20 | | | (DELTASONE) 50 mg | (total 100 mg) daily | tablet | | 20 | 0 | | tabletIndications: | on days 1, 2, 3, 4, | | | | | | Mediastinal large | and 5 of each cycle | | | | | | B-cell lymphoma of | of chemotherapy. | | | | | | lymph [...] | | Take 1 tablet by | 12 | 11 | 04/03/20 | | | sulfamethoxazole-tri | mouth Three times a | tablet | | 20 | 0 | | methoprim (BACTRIM | week. 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 Pt seen by Provider last week and consented fo r tx. Will go to [facility] for Cycle#1 day1-5 EPOCH. Scheduled here for day 6 Neulasta. Started Rituxan and 50mg/hr rate and titirated as tolerated. PATIENT EDUCATION: PRE-CHEMOTHERAPY EDUCATION: Patient is here today for education on their chemotherapy regimen of Rituxan and EPOCH that is scheduled to begin on today . Pt provided with disease specific information on their [place] gnosis of Lymphoma. Pt received printed materials on the following drugs: Rituxan, JACK SPOOLER TENDER-16, Vincristine, Doxorubi josselyn, Cytoxan, Prednisone and Neulasta. Discussed Prednisone to be taken starting on with chemotherapy of 60mg/m2 twice daily for 5 days. This is a change so reviewed with evaristo rubalcava. "Chemotherapy and You" and "Eating Hints" books along with other resource material provided to and reviewed with patient. Possible side effects and how/when to call for concerns including but not limited to infect ion, nausea, diarrhea and constipation reviewed with patient. Hypersensativity reaction als o reviewed with patient. Tour of infusion suite and chair space provided to pt. Personal items that are allowed to b e brought by patient/family, food items, recommended comfortable clothing, and available ent ertainment options reviewed with patient. Phone numbers for the cleaning and maintenance worker, chemotherapy patient scheduler, and after hours number provided to patient. Consent signed, verified, and copy provided to patient. Copies of most recent labs provided to and reviewed with patient. Treatment parameters for specific lab values explained to kori arroyo. Updated calendar given to patient. Appointment times for lab draw, MD, and infusion times e xplained to patient as well as cycle length and treatment days for each cycle. Patients Height and Weight verified for accuracy.Verified mediport placement and function. Verified CBC CMP and Hep B panel completed before treatment date. . CHEMOTHERAPY CHECK: Pt's orders/protocol verified, along with Ht and Wt and BSA rechecked, doses reverified, al l with second RN ( Saranya ) before releasing to Pharmacy. Labs within parameters for treat ment. VSS Distress Survey completed. All chemo Drug (s) checked for accurate color and clarity and no precipitate was noted. Pt tolerated tx well. Reinforced calling for any concerns or questions. Discharged to [facility] with copy of labs and calendar for next appointment. NEXT APPOINTMENT: [facility] Monday for chemo admission. documented in this enco unter Plan of Treatment +--------+ + + + + | Date | Type | Specialty | Care Team | Description | +--------+ + + + + | 06/29/ | Appointment | Infusion Therapy | Wilton Jeff MD | | | 2019 | | | [address] | | | | | | [place] | | | | | | [id number] | | | | | | | | +--------+ + + + + | 06/29/ | Office | Oncology | Wilton Jeff MD | | | 2019 | Visit | | [address] | | | | | | [place] | | | | | | [id number] | | | | | | | | | | | | Marilou Mcmullen, | | | | | | DIRECTOR OF OCCUPATIONAL HEALTH [address] | | | | | [address] | | | | | | [place] [id number] | | | | | | [phone] | | | | | | | | +--------+ + + + + | 06/29/ | Appointment | Infusion Therapy | Wilton Jeff MD | | | 2019 | | | [address] | | | | | | [place] | | | | | | [address] | | | | | | | | +--------+ + + + + | 07/14/ | Office | Otolaryngology | She Huang | | | 2019 | Visit | | DO Sophia Canela | | | | | | [place] [address] | | | | | | [place] [address] | | | | | | [phone] | | | | | | | | +--------+ + + + + | 07/20/ | Appointment | Infusion Therapy | Wilton Jeff MD | | | 2019 | | | [address] | | | | | | [place] | | | | | | [address] | | | | | | | | +--------+ + + + + | 07/20/ | Office | Oncology | Wilton Jeff MD | | | 2019 | Visit | | [address] | | | | | | [place] | | | | | | [address] | | | | | | | | +--------+ + + + + | 07/20/ | Appointment | Infusion Therapy | Wilton Jeff MD | | | 2019 | | | [address] | | | | | | [place] | | | | | | [address] | | | | | | | | +--------+ + + + + | 08/17/ | Appointment | Infusion Therapy | Wilton Jeff MD | | | 2019 | | | [address] | | | | | | [place] | | | | | | [address] | | | | | | | | +--------+ + + + + | 08/17/ | Office | Oncology | Wilton Jeff MD | | | 2019 | Visit | | [address] | | | | | | [place] | | | | | | [address] | | | | | | | [...] | acetaminophen (TYLENOL) tablet | Given | 04/06/20 | 650 mg | | | | 650 mg 650 mg, Oral, ONCE, Mon | | 20 9:02 | | | | | 04/06/20 at 0905, For 1 dose, Give | | AM PDT | | | | | 30 minutes prior to riTUXimab., | | | | | | + +--------+ +--------+------+------+ +---+---+ | | | +---+---+ + +---------+ +-------+-------+---+ | diphenhydrAMINE (BENADRYL) 50 | New Bag | 04/06/20 | 50 mg | 204 | | | mg in sodium chloride 0.9% 50 mL | | 20 9:28 | | mL/hr | | | IVPB 50 mg, Intravenous, | | AM PDT | | | | | Administer over 15 Minutes, ONCE, | | | | | | | 04/06/20 at 0905, For 1 dose | | | | | | + +---------+ +-------+-------+---+ +---+---+ | | | +---+---+ + +---------+ +-------+---+---+ | famotidine (PEPCID) 20-0.9 | New Bag | 04/06/20 | 20 mg | | | | MG/50ML-% IVPB 20 mg 20 mg, | | 20 9:16 | | | | | Intravenous, Administer over 30 | | AM PDT | | | | | Minutes, ONCE, 04/06/20 at | | | | | | | 0905, For 1 dose | | | | | | + +---------+ +-------+---+---+ +---+---+ | | | +---+---+ + +-------+ +-------+---+---+ | heparin 100 units/mL flush | Given | 04/06/20 | 500 | | | | injection 500 Units 500 Units (5 | | 20 3:15 | Units | | | | mL), Intracatheter, PRN, Line | | PM PDT | | | | | Care, Starting 04/06/20 at 0847 | | | | | | + +-------+ +-------+---+---+ +---+---+ | | | +---+---+ + +-------+ +--------+---+---+ | LORazepam (ATIVAN) 2 mg/mL | Given | 04/06/20 | 0.5 mg | | | | injection 0.5 mg 0.5 mg, | | 20 10:10 | | | | | Intravenous, EVERY 4 HOURS PRN, | | AM PDT | | | | | prn anxiety, Starting Mon04/06/20 | | | | | | | at 1005 | | | | | | + +-------+ +--------+---+---+ +---+---+ | | | +---+---+ + +---------+ +-------+-------+---+ | ondansetron 16 mg, | New Bag | 04/06/20 | 16 mg | 252 | | | dexamethasone (DECADRON) 20 mg in | | 20 9:02 | | mL/hr | | | sodium chloride 0.9% 50 mL IVPB | | AM PDT | | | | | 16 mg, Intravenous, Administer | | | | | | | over 15 Minutes, ONCE, 04/06/20 | | | | | | | at 0905, For 1 dose, Administer | | | | | | | 30 minutes prior to | | | | | | | chemotherapy., | | | | | | + +---------+ +-------+-------+---+ +---+---+ | | | +---+---+ + +---------+ +--------+ +---+ | riTUXimab-abbs (TRUXIMA) 800 mg | New Bag | 04/06/20 | 800 mg | 36 mL/hr | | | in sodium chloride 0.9% 580 mL | | 20 10:12 | | | | | infusion 800 mg (rounded from | | AM PDT | | | | | 772.5 mg = 375 mg/m2 | | | | | | | 2.06 m2 Treatment plan recorded | | | | | | | BSA), Intravenous, ONCE, Mon | | | | | | | 04/06/20 at 0905, For 1 dose, | | | | [...] | | | | over 60 minutes. [id number] Bag | | | | | | [...] +---+---+ | | | +---+---+ + +---------+ +---+ +---+ | sodium chloride 0.9% (NS) bolus | New Bag | 04/06/20 | | 30 mL/hr | | | 250 mL 250 mL, Intravenous, | | 20 8:56 | | | | | PRN, Flush before and after IV | | AM PDT | | | | | medication(s) and as needed with | | | | | | | NS, Starting 04/06/20 at 0847 | | | | | | + +---------+ +---+ +---+ +---+---+ | | | +---+---+ documented in this encounter
--- OUTSIDE RECORDS SUMMARY | ~2020-06-23 | XMS | Encounter Summary ---
Demographics + + + | Address | [address] | | | [place] [address] | + + + | Home Phone | | + + + | Preferred Language | Unknown | + + + | Marital Status | Single | + + + | Church Affiliation | Unknown | + + + [...] Team Providers + +------+ + | Care Debt Management Counselor Name | Role | Phone | + +------+ + | Myrna Mejia MD | PCP | | + +------+ + Reason for Visit +--------+--------+ + | Reason | Onset | Comments | | | Date | | +--------+--------+ + | Other | 05/19/ | Oncology Nurse Navigation | | | 2020 | | +--------+--------+ + Encounter Details +--------+ + + + + | Date | Type | Department | Care Team | Description | +--------+ + + + + | 05/19/ | Telephone | [facility] | Briana Taylor | Other (Oncology | | 2019 | | HEMATOLOGY AND | C, RN | Nurse Navigation) | | | | ONCOLOGY [address] | | | [address] | | | | | | [place] | | | | | | [address] | | | | | | [phone] | | | +--------+ + + + [...] this encounter Miscellaneous Notes Telephone Encounter - Briana Taylor RN - 05/19/2020 12:06 PM ELIONN called the martinez t by the request of KOLE Do to discuss obtaining dental care for the patient. O NN spoke with patient, and an email was sent to the patient patient with a list of dentists in his area that accept his insurance. ONN encouraged patient to call around and see which dentist would be able to get him in to evaluate his sore tooth. Patient verbalized understa nding, and will call ONN if further assistance is required. KHALIF Sr, RN, OCN General Oncology Nurse Navigator [facility] Hematology & Oncology documented in this encounter Plan of Treatment +--------+ + + + + | Date | Type | Specialty | Care Team | Description | +--------+ + + + + | 06/29/ | Appointment | Infusion Therapy | Wilton Jeff MD | | | 2019 | | | [address] | | | | | | [place] | | | | | | [address] | | | | | | | | +--------+ + + + + | 06/29/ | Office | Oncology | Wilton Jeff MD | | | 2019 | Visit | | [address] | | | | | | [place] | | | | | | [address] | | | | | | | | | | | | Marilou Mcmullen, | | | | | | DATA ENTRY CLERK [address] | | | | | | [place] [address] | | | | | | [phone] | | | | | | | | +--------+ + + + + | 06/29/ | Appointment | Infusion Therapy | Wilton Jeff MD | | | 2019 | | | [address] | | | | | | [place] | | | | | | [address] | | | | | | | | +--------+ + + + + | 07/14/ | Office | Otolaryngology | Sal She | | | 2019 | Visit | | DO Sophia Canela | | | | | | [address] | | | | | | [place] [address] | | | | | | [phone] | | | | | | | | +--------+ + + + + | 07/20/ | Appointment | Infusion Therapy | Wilton Jeff MD | | | 2019 | | | [address] | | | | | | [place] | | | | | | [address] | | | | | | | | +--------+ + + + + | 07/20/ | Office | Oncology | Wilton Jeff MD | | | 2019 | Visit | | [address] | | | | | | [place] | | | | | | [address] | | | | | | | | +--------+ + + + + | 07/20/ | Appointment | Infusion Therapy | Wilton Jeff MD | | | 2019 | | | [address] | | | | | | [place] | | | | | | [address] | | | | | | | | +--------+ + + + + | 08/17/ | Appointment | Infusion Therapy | Wilton Jeff MD | | | 2019 | | | [address] | | | | | | [place] | | | | | | [address] | | | | | | | | +--------+ + + + + | 08/17/ | Office | Oncology | Wilton Jeff MD | | | 2019 | Visit | | [address] | | | | | | [place] | | | | | | [address] | | | | | | | | +--------+ + + + + documented as of this encounter Visit Diagnoses Not on filedocumented in this encounter"
--- OUTSIDE RECORDS SUMMARY | ~2020-06-23 | XMS | Encounter Summary ---
Demographics + + + | Address | [address] | | | [place] [address] | + + + | Home Phone [...] Author + + + | Author | [facility] | | | and [place] | + + + | Organization | [facility] | | [...] Team Providers + +------+ + | Care Helper Driver Name | Role | Phone | + +------+ + | Myrna Mejia MD | PCP | | + +------+ + Encounter Details +--------+ + + + + | Date | Type | Department | Care Team | Description | +--------+ + + + + | 03/19/ | Preadmit | [facility] | She Huang | | | 2020 | Visit | CENTER PREADMIT | J, DO [address] | | | | | CLINIC [address] | | | | | BLVD [place], [place] | [place] [address] | | | | | [address] | [phone] | | | | | [phone] | | | +--------+ + + + [...] + + + | Blood Pressure | 134/77 | 03/19/2020 12:24 PM | | | | | PDT | | + + + + + | Pulse | 101 | 03/19/2020 12:24 PM | | | | | PDT | | + + + + + | Temperature | - | - | | + + + + + | Respiratory Rate | 20 | 03/19/2020 12:24 PM | | | | | PDT | | + + + + + | Oxygen Saturation | 99% | 03/19/2020 12:24 PM | | | | | PDT | | + + + + + | Inhaled Oxygen | - | - | | | Concentration | | | | + + + + + | Weight | 87 kg (191 lb 12.8 | 03/19/2020 12:24 PM | | | | oz) | PDT | | + + + + + | Height | 180.3 cm (5' 11") | 03/19/2020 12:24 PM | | | | | PDT | | + + + + + | Body Mass Index | 26.75 | 03/19/2020 12:24 PM | | | | | PDT | | + + + + + documented in this encounter Patient Instructions Instructions Charlotte Viera RN - 03/19/2020 Outpatient Medications Marked as Taking for the 03/19/20 encounter (Preadmit Visit) with [facility] ROOM 2 Medication Sig Instructions albuterol (VENTOLIN HFA) 90 mcg/puff inhaler Inhale 2 puffs into the lungs every 6 hour s as needed for Wheezing. TAKE day of procedure, if needed albuterol 2.5 mg/3 mL nebulizer solution TAKE day of procedure, if needed benzonatate (TESSALON) 100 mg capsule Take 100 mg by mouth 3 times daily as needed for Cough. TAKE day of procedure famotidine (PEPCID) 20 mg tablet Daily. TAKE day of procedure naproxen (NAPROSYN) 500 mg tablet Take 500 mg by mouth 2 times daily (with breakfast & dinner). HOLD prior to procedure. Take last dose 03/19/2020 ondansetron (ZOFRAN) 4 mg tablet 3 times daily. TAKE day of procedure documented in this encounter Miscellaneous Notes Preadmit Clinic Note - Charlotte Viera RN - 03/19/2020 12:00 PM PDTDenies chest pain with us ual daily activities, does get shortness of breath with usual daily activities d/t right angel g mass Mets of 1-1.5 pt very sedentary these days per pt report. covid screening scheduled. documented in this enco unter Plan of Treatment +--------+ + + + + | Date | Type | Specialty | Care Team | Description | +--------+ + + + + | 06/29/ | Appointment | Infusion Therapy | Wilton Jeff MD | | | 2019 | | | [address] | | | | | | [place] | | | | | | [address] | | | | | | | | +--------+ + + + + | 06/29/ | Office | Oncology | Wilton Jeff MD | | | 2019 | Visit | | [address] | | | | | | [place] | | | | | | [address] | | | | | | | | | | | | Marilou Mcmullen, | | | | | | [employer] [address] | | | | [address] | | | | | | [place] [address] | | | | | | [phone] | | | | | | | | +--------+ + + + + | 06/29/ | Appointment | Infusion Therapy | Wilton Jeff MD | | | 2019 | | | [address] | | | | | | [place] | | | | | | [address] | | | | | | | | +--------+ + + + + | 07/14/ | Office | Otolaryngology | Sal, She | | | 2019 | Visit | | DO Sophia Canela | | | | | | [address] | | | | | | [place] [address] | | | | | | [phone] | | | | | | | | +--------+ + + + + | 07/20/ | Appointment | Infusion Therapy | Wilton Jeff MD | | | 2019 | | | [address] | | | | | | [place] | | | | | | [address] | | | | | | | | +--------+ + + + + | 07/20/ | Office | Oncology | Wilton Jeff MD | | | 2019 | Visit | | [address] | | | | | | [place] | | | | | | [address] | | | | | | | | +--------+ + + + + | 07/20/ | Appointment | Infusion Therapy | Wilton Jeff MD | | | 2019 | | | [address] | | | | | | [place] | | | | | | [address] | | | | | | | | +--------+ + + + + | 08/17/ | Appointment | Infusion Therapy | Wilton Jeff MD | | | 2019 | | | [address] | | | | | | [place] | | | | | | [address] | | | | | | | | +--------+ + + + + | 08/17/ | Office | Oncology | Wilton Jeff MD | | | 2019 | Visit | | [address] | | | | | | [place] | | | | | | [address] | | | | | | | | +--------+ + + + + documented as of this encounter Visit Diagnoses Not on filedocumented in this encounter
--- OUTSIDE RECORDS SUMMARY | ~2020-06-23 | XMS | Encounter Summary ---
Demographics + + + | Address | [address] | | | [place] [address] | + + + | Home Phone | | + + + | Preferred Language | Unknown | + + + | Marital Status | Single | + + + | Amish Affiliation | Unknown | + + + [...] Team Providers + +------+ + | Care Network Operations Manager Name | Role | Phone | [...] | | region | [address] | [place] [address] | | | | | Onc/New/Head | [place], [place] | Phone: | | | | | -Neck | [address] | [phone] | | | | | | Phone: | Fax: | | | | | | [phone] | [phone] | | | | | | Fax: | | | | | | | [phone] | | + +--------+ + + + [...] | and neck | [address] | [place], | | | | | region | [place] [address] | [place] [address] | | | | | | [place], [place] | Phone: | | | | | | [address] | [phone] | | | | | | Phone: | Fax: | | | | | | [phone] | [phone] | | | | | | Fax: | | | | | | | [phone] | | +--------+--------+ + + + + [...] + + | 07/13/ | Telephone | [facility] | Jake, | Results | | 2019 | | PULMONOLOGY [address] | [address], | | | | | [address] | [address] | | | | | [place], [place] | [place], | | | | | [address] | [place] [address] | | | | | [phone] | [phone] | | | | | | | [...] Joseph MD Pulmonary and Critical Care Medicine [facility] [address] , [place] [address] documente d in this encounter Plan of [...] [place] | | | | | | [address] | | | | | | | | +--------+ + + + + | 06/29/ | Office | Oncology | Wilton Jeff MD | | | 2019 | Visit | | [address] | | | | | | [place] | | | | | | [address] | | | | | | | | | | | | Marilou Mcmullen, | | | | | | [employer] HAND[employer]ER [address] | | | | | [address] | | | | | | [place] [address] | | | | | | [phone] | | | | | | | | +--------+ + + + + | 06/29/ | Appointment | Infusion Therapy | Wilton Jeff MD | | | 2019 | | | [address] | | | | | | [place] | | | | | | [address] | | | | | | | | +--------+ + + + + | 07/14/ | Office | Otolaryngology | She Huang | | | 2019 | Visit | | DO Sophia Canela | | | | | | [place] [address] | | | | | | [place] [address] | | | | | | [phone] | | | | | | | | +--------+ + + + + | 07/20/ | Appointment | Infusion Therapy | Wilton Jeff MD | | | 2019 | | | [address] | | | | | | [place] | | | | | | [address] | | | | | | | | +--------+ + + + + | 07/20/ | Office | Oncology | Wilton Jeff MD | | | 2019 | Visit | | [address] | | | | | | [place] | | | | | | [address] | | | | | | | | +--------+ + + + + | 07/20/ | Appointment | Infusion Therapy | Wilton Jeff MD | | | 2019 | | | [address] | | | | | | [place] | | | | | | [address] | | | | | | | | +--------+ + + + + | 08/17/ | Appointment | Infusion Therapy | Wilton Jeff MD | | | 2019 | | | [address] | | | | | | [place] | | | | | | [address] | | | | | | | | +--------+ + + + + | 08/17/ | Office | Oncology | Wilton Jeff MD | | | 2020 | Visit | | [address] | | | | | | [place] | | | | | | [address] | | | | | | | [...]
--- OUTSIDE RECORDS SUMMARY | ~2020-06-23 | XMS | Encounter Summary ---
Demographics + + + | Address | [address] | | [place] [address] | + + + | Home Phone | | + + + | Preferred Language | Unknown | + + + | Marital Status | Single | + + + | Sikhism Affiliation | Unknown | + + + | Race | White | + + + | Ethnic Group | Not or | + + + Author + + + | Author | [facility] | | | and [place] | + + + | Organization | [facility] | [...] Team Providers + +------+ + | Care Professor Of Family Medicine Name | Role | Phone | + +------+ + | Myrna Mejia MD | PCP | | + +------+ + Reason for Visit Evaluate & Treat (Urgent) +--------+--------+ + + + + | Status | Reason | Specialty | Diagnoses / | Referred By | Referred To | | | | | Procedures | Contact | Contact | +--------+--------+ + + + + | Closed | | Otolaryngolog | Diagnoses | Jake, | Sal, | | | | mak | | Tali | She Canela DO | | | | | Lymphadenopa | MD Naheed | [address] | | | | | thy of head | [address] | | | | | and neck | [address] | [place], | | | | | region | [place] | [place] [address] | | | | | | [place], [place] | Phone: | | | | | | [address] | [phone] | | | | | | Phone: | Fax: | | | | | | [phone] | [phone] | | | | | | Fax: | | | | | | | [phone] | | +--------+--------+ + + + + Encounter Details +--------+---------+ + + + | Date | Type | Department | Care Team | Description | +--------+---------+ + + + | 03/17/ | Office | [facility] | She Huang | Cervical | | 2020 | Visit | NOSE AND THROAT [address] | J, DO [address] | lymphadenopathy | | | | [address] | [address] | (Primary Dx); | | | | [place], [place] | [place] [address] | Supraclavicular | | | | [address] | [phone] | adenopathy; Night | | | | [phone] | | sweats | +--------+---------+ + + + Social History + +-------+ [...] + + + + | Pulse | 104 | 03/17/2020 10:02 AM | | | | | PDT | | + + + + + | Temperature | - | - | | + + + + + | Respiratory Rate | - | - | | + + + + + | Oxygen Saturation | 98% | 03/17/2020 10:02 AM | | | | | PDT | | + + + + + | Inhaled Oxygen | - | - | | | Concentration | | | | + + + + + | Weight | 85.3 kg (188 lb) | 03/17/2020 10:02 AM | | | | | PDT | | + + + + + | Height | 180.3 cm (5' 11") | 03/17/2020 10:02 AM | | | | | PDT | | + + + + + | Body Mass Index | 26.22 | 03/17/2020 10:02 AM | | | | | PDT | | + + + + + documented in this encounter Patient Instructions Patient Instructions Josefa Palumbo, [employer] - 03/17/2020 9:45 AM PDTSurgery D ate: 03/20/20 Location: [facility] ([address] [place] [address]) FYI: Please follow ALL pre-op instructions. Read ALL handouts that are given to ensure you ar e following the required steps prior to surgery. Not following instructions can result in i mmediate cancellation of your surgery. PLEASE BRING YOUR SURGERY FOLDER AND CONSENT FORM TO SURGERY. There is restricted access to the hospital, meaning you will not be allowed to have some one with you (in the waiting room) during surgery. They will only be able to drop you off an d pick you up after. DO NOT EAT OR DRINK ANYTHING AFTER MIDNIGHT. Doing so will result in a delay in surgery or cancellation. Check with your surgeon or your primary care physician to see if there are any anticoagu lants you should stop prior to surgery. Prior to your surgery, you will receive a call to do a telephone Pre-Admission (Registra tion) appointment. This appointment is required. If you do not hear from anyone in regards to this appointment please call [phone]. A time for surgery is not given until the day before. The hospital will be contacting y mal to give you a time for arrival. Unfortunately, our office does not know this information so if you are concerned with your surgery time please call the hospital directly at . If you need to cancel or reschedule your surgery, pre-op, or post-op dates please contact y our surgeon's office at [phone], Option 4. FMLA/SHORT-TERM DISABILITY PAPERWORK: PLEASE DROP IT OFF OR FAX IT TO OUR OFFICE ([phone]) SOON POSSIBLE. MAKE SURE TO INCLUDE TIME OFF NEEDED AND/OR WHEN YOU PLAN TO RETUR N TO WORK. PLEASE ALLOW 7-10 BUSINESS DAYS FOR COMPLETION. If you would like an estimate for your surgery, please contact the [facility] [employer] Police Officer ors/Authorization Department at [phone]. What is Coronavirus? The Novel Coronavirus 2019 (COVID-19) is a new virus strain that is spread mainly from pers [id number] through respiratory droplets when an infected person coughs or sneezes. Symptom s may appear 2-14 days after exposure. Reported illnesses have ranged from mild symptoms to severe illness and for confirmed cases. Some people testing positive for COVID-19 have no symptoms at all (asymptomatic). The most common symptoms include: ? Cough ? Shortness of breath or difficulty breathing ? Fever ? Chills ? Muscle pain ? Sore throat ? New loss of taste or smell COVID-19 is most commonly spread from an infected person to others through: ? Between people who are in close contact with one another (within about 6 feet). ? Respiratory droplets produced by coughing and sneezing. These droplets can land in the mo uths or nose of people who are nearby or possibly be inhaled into the lungs. ? Touching a surface with the virus on it and then touching your mouth, nose, or eyes befor e washing your hands. How to protect yourself ? Avoid touching your eyes, nose and mouth with unwashed hands. ? Wash your hands often with soap and water for at least 20 seconds. This is especially imp ortant after blowing your nose, coughing, or sneezing; going to the bathroom; and before eat ing or preparing food. ? If soap and water are not available, use an alcohol-based hand land inspector with at least 60 % alcohol covering all surfaces of your hands and rubbing them together until they feel dry. ? Cover your cough or sneeze with a tissue, then throw the tissue in the trash. (Putting a tissue on a table contaminates the surface of the table with germs.) ? Routinely disinfect frequently touched objects and surfaces, using a cleaning spray or wi pe. ? Avoid travel to high-risk countries. Non-essential travel to or through any of the countr ies for which the CDC has issued a level 2 or 3 travel health notice is discouraged. https://www.cdc.gov/coronavirus/2019-ncov/travelers/index.html ? Stay at least 6 feet away from others when in public places, do not gather in groups, sta y out of crowded places, and avoid mass gatherings to slow the spread of the virus. ? Use of a simple cloth face covering to slow the spread of the virus in public settings wh ere it's hard to stay away from others, such as in grocery stores, pharmacies, and other are as where the virus might easily spread. Cloth masks do not protect the wearer but instead h old in droplets from sneezing or coughing to prevent spreading to other people and surfaces. Cloth face coverings fashioned from household items or made at home from common materials a t low cost can be used. It is not recommended to use surgical masks or N-95 respirators. A few definitions that you should be familiar with regarding COVID-19: Quarantine is used to keep someone who might have been exposed to COVID-19 away from others . Isolation is used to separate people infected with the virus (those who are sick from COVID -19 and those with no symptoms) from people who are not infected. Both quarantine and isolation are similar that they: ? involve separation of people to protect the public ? help limit further spread of COVID-19 ? can be done voluntarily or be required by health authorities What to do if you are sick? ? If you have a fever and cough, you may have COVID-19. Notify your medical provider. ? Stay home except to get medical care (see for Home Isolation) ? Monitor your symptoms When you should seek medical evaluation and advice? ? Call 911 if you have a medical emergency such as trouble breathing, persistent pain or pr essure in the chest, and/or bluish lips or face. If you have a medical emergency and need to call 911, notify the roll up guider operator that you have or think you might have, COVID-19. If possible, put on a facemask before medical help arrives. ? If you are 65 and older, or have underlying conditions such as , heart disease, diabetes, lung disease and weakened immune system, work with your doctor to develop a plan t o determine your health risks to COVID-19 and how to manage symptoms. If you do have symptom s, contact your doctor immediately. ? For worsening symptoms or difficulty breathing, please contact your primary care provider or consider a virtual visit. ? If you do not have a high-risk condition and your symptoms are mild, you do not need to b e evaluated in person and do not need to be tested for COVID-19. (Please see Home Quarantin e and Isolation Instructions below) ? We ask that you please avoid coming to the emergency department, unless you have a health emergency and/or you have been advised by a provider to do so. This helps prevent the risk of spreading this disease and further exposure in our community and allows us to dedicate cr itical and limited emergency resources to those who are very sick. Who should be tested? A common question right now is, Why can't I get tested? The answer: Not everyone need s to be tested. Given the short supply of testing supplies and protective equipment for our health care workers, the CDC recommends that people who are hospitalized, healthcare worker who have COVID-19 symptoms, residents in nursing facilities or detention communities or home health, or those who are high risk (older adults, chronic diseases, immunosuppressed) s hould be prioritized for testing. These recommendations may evolve to include more people ov er time, as this situation is evolving rapidly. It is not recommended to test individuals wh o do not have COVID-19 symptoms. What to do if you think you have been exposed to COVID-19? If you feel healthy but recently had close contact with a person known to have COVID-19, yo u need to self-quarantine. Follow the self-quarantine instructions listed below: ? Check your temperature twice a day ? Stay home for 14 days from the time of exposure and self-monitor for fever, cough, and sh ortness of breath. ? Contact your medical provider if your temperature is greater than 100.4 and you develop c ough or shortness of breath. ? If possible, stay away from people who are high-risk for getting very sick from COVID-19. Does this mean my family or other people I live with need to self-quarantine? Other members of the household are not required to self-quarantine, unless they have been t old by a medical professional to do so. If you develop symptoms and are suspected to have CO VID-19, members of the household will be classified as close contacts and will then need to be in self-quarantine. Please speak to your health care provider and/or health department fo r further instructions. What are the guidelines for home quarantine and home isolation? ? Restrict activities outside your home, except for seeking medical care. ? Do not go to work, another person's home, school or public areas. ? Do not use public transportation. ? Cover coughs and sneezes. ? Avoid close contact with household members. When this is not possible, stay at least 6 fe et from other people and wear a cloth face covering. During the COVD-19 pandemic, medical-gr sera masks are reserved for healthcare workers. ? Use separate sleeping and bathroom/bathing facilities, if feasible. ? Wash your hands often with soap and water for at least 20 seconds. This is especially imp ortant after blowing your nose, coughing, or sneezing; going to the bathroom; and before eat ing or preparing your food. ? Use hand land inspector if soap and water are not available. Use an alcohol-based hand sanitiz er with at least 60% alcohol, covering all surfaces of your hands and rubbing them together until they feel dry ? Cover your mouth and nose with a tissue when you cough or sneeze. Throw away used tissues in a lined trash can. Wash your hands afterwards. ? Clean and disinfect high-touch surfaces in your sick room and bathroom with a house hold disinfectant. High-touch surfaces include phones, remote controls, counters, doorknobs, tabletops, bathroom fixtures, toilets, keyboards, and bedside tables. Let someone else samuel n and disinfect surfaces in common areas, but not your bedroom and bathroom. ? Avoid sharing personal household items (dishes, drinking glasses, cups, eating utensils, towels, or bedding) with other people or pets in your home. After using these items, they sh ould be washed thoroughly with soap and water or in the chief wheelage clerk/washer. ? Call ahead before visiting your doctor. This will help the healthcare provider's office t shilpa steps to keep other people from getting infected or exposed. ? If you have been tested for COVID-19, stay home until your healthcare provider contacts y ou about your test results. When should I discontinue self-quarantine? If you have tested positive for COVID-19, you can leave home after these three things have happened: ? At least 3 days (72 hours) have passed since resolution of fever (temperature less than 1 00.0F or 37.8C) without the use of fever-reducing medications (e.g. Tylenol, Ibuprofen) AND ? At least 3 days of improvement in respiratory symptoms (e.g. cough, shortness of breath) AND ? At least 10 days have passed since symptoms first appeared If you have tested positive for COVID-19 and are retested, you can leave home after these t hree things have happened: ? Resolution of fever (temperature less than 100.0F or 37.8C) without the use of fever-redu cing medications (e.g. Tylenol, Ibuprofen) AND ? Improvement in respiratory symptoms (e.g. cough, shortness of breath) AND ? Negative test results of COVID-19 from at least two consecutive samples collected 24 hrs or more apart If you are waiting for COVID-19 test results or you are symptomatic but did not require tracy ting, you can leave home after the following things have happened: ? At least 3 days (72 hours) have passed since resolution of fever (temperature less than 1 00.0F or 37.8C) without the use of fever-reducing medications (e.g. Tylenol, Ibuprofen) and at least 3 days of improvement in respiratory symptoms (e.g., cough, shortness of breath), a nd at least 10 days have passed since symptoms first appeared. OR ? Two negative test results received and at least 24 hours have passed since resolution of fever (temperature less than 100.0F or 37.8C) without the use of fever-reducing medications (e.g. Tylenol, Ibuprofen). How is COVID-19 treated? Most people with COVID-19 will recover on their own. There is no specific antiviral treatm ent recommended for COVID-19 at this time. People with COVID-19 should receive supportive ca re to help relieve symptoms. For severe cases, treatment should include care to support danny l organ functions. Additional Information For up-to-date information about coronavirus and the community public health response, shelleyi t your local public health website. CDC: COVID-19: https://www.cdc.gov/coronavirus/2019-ncov/index.html [place] Coronavirus Advisory: https://www.[place].org/nittorpi-ozb-lqajbuwr/coron avirus-advisory Virtual Visits Available https://[email or web address].org/ documented in this encounter Progress Notes She Huang, - 03/17/2020 9:45 AM PDT Subjective: Asad Longo is a 29 y.o. male who presents for evaluation regarding cervical lymph adenopathy. He notes that the lymph nodes have been present for at least 1 month. He states that he has swollen lymph nodes on both sides of neck after having pneumonia. He has had ni ght sweats and unintentional weight loss. He notes that he is lost at least 30 pounds withi n the past 6 months. He denies fever. No family history of lymphoma. He is currently on Aug mentin without improvement of his lymphadenopathy. He had a PET scan done 03/16/2020 which r eveals extensive lymphadenopathy. No dysphagia or hoarseness. No biopsy has been performed . He is a former smoker. He has also been referred to Dr. Wilton Jeff from hematology/onco logy. Duration: 1 month Progression since onset: stable Associated symptoms: enlarged lymph nodes. Patient's medications, allergies, past medical, surgical, social and family histories were obtained and reviewed as appropriate. History: History reviewed. No pertinent past medical history. History reviewed. No pertinent surgical history. History reviewed. No pertinent family history. Social History Socioeconomic History Marital status: Single Spouse name: Not on file Number of children: Not on file Years of education: Not on file Highest education level: Not on file Tobacco Use Smoking status: Former Smoker Start date: 02/24/2020 Smokeless tobacco: Never Used Substance and Sexual Activity Drug use: Yes Types: Marijuana Allergies: No Known Allergies Review of Systems Constitutional: positive for fatigue, sweats and weight loss Respiratory: positive for pneumonia and sputum Cardiovascular: positive for chest pain and fatigue Gastrointestinal: negative Hematologic/lymphatic: positive for lymphadenopathy Musculoskeletal:negative Neurological: positive for headaches Behavioral/Psych: positive for sleep disturbance and tobacco use Endocrine: negative Allergic/Immunologic: negative Objective: Pulse 104 | Ht 1.803 m (5' 11") | Wt 85.3 kg (188 lb) | SpO2 98% | BMI 26.22 kg/m General: healthy, alert, appears stated age, voice is clear Head and Face: facial movement was normal and symmetrical, nontender External Ears: normal pinnae shape and position Ext. Aud. Canal: Right:patent Left: patent Tympanic Mem: Right: normal landmarks and mobility Left: normal landmarks and mobility Nose: Nares normal. Septum deviated to the left Mucosa normal. No drainage or sinus tende rness. Oral Cavity: lips, dentition and gingiva within normal for age Tonsils: normal size, normal appearance Post. Pharynx: normal mucosa Neck: supple with significant bilateral cervical/supraclavicular adenopathy, trachea midl ine Thyroid: Normal Heart: regular rate and rhythm Lungs: Normal respiratory effort Psych/Neuro: normal mood, no focal deficits, CN II-XII intact EXAM DESCRIPTION PET/CT REGISTRY SKULL TO MID THIGH CLINICAL INFORMATION: Large cavitary lung mass in a young man, with mediastinal adenopathy, concerning for malignancy. Pls note SUV, and also signs of mets. Initial PET Scan COMPARISON: None PROCEDURE: The patient was evaluated with a dedicated PET/CT scanner. Upon arrival, the patient's fasting fingerstick blood glucose level was 90 mg/dL. 14.9 mCi of 18-FDG was injected IV at 0928 hours, and 74 minutes post-injection CT attenuation-correction images and then subsequent PET images (attenuation-corrected and emission-only images) were obtained from base of skull to thigh. PET, noncontrast-attenuation CT, and fused PET/CT images were then reformatted and reviewed in the axial, sagittal, coronal and 3-D maximum intensity projection planes. FINDINGS: HEAD: Brain: The distribution of FDG activity in the visualized brain is physiologic. Paranasal Sinuses: An 8 mm soft tissue density is noted in the left maxillary sinus may represent a small polyp no increased activity is noted in this region. NECK: Neck: FDG avid supraclavicular lymph nodes are noted bilaterally this is a conglomerate of lymph nodes the largest on the right is centrally necrotic measures 2.3 x 3.1 cm (image 66, SUV 20.2). The largest on the left also appears to be slightly centrally necrotic measures 1.9 x 2.2 cm (image 64, SUV 26.5). Thyroid: Physiologic distribution of FDG activity in the thyroid gland. No abnormal focal or diffuse increased activity. CHEST: Lungs, Pleura and Airways: In the medial right upper lobe there is a large FDG avid mass along the hilum with areas of central necrosis this measures 6.0 x 5.7 cm (image 92, SUV 30.1). The right middle lobe is atelectatic likely secondary to compression of the bronchus from this large central mass.. Mediastinum: A small pericardial effusion is noted. The heart is normal in size great vessels are normal in caliber. Lymph Nodes: Extensive conglomerate lymphadenopathy is noted throughout the mediastinum bilateral hilar region and both axilla. Index nodes are as below: 1. Superior left hilar lymph node measuring 2.2 x 2.5 cm (image 93, SUV 26.4). 2. Conglomerate anterior mediastinal lymphadenopathy measuring 3 point 3 x 5.1 cm (image 101, SUV 27.9). 3. Two FDG avid pericardial nodes measuring 1.5 x 1.8 cm (image 135, SUV 16.4). 4. A lateral pericardial node adjacent to the anterior left 6th rib measures 0.5 x 0.7 cm (image 149, SUV 15.4) 5. A subdiaphragmatic lymph node which is partially necrotic measuring 2.3 x 2.4 cm (image 160, SUV 23.4). ABDOMEN: Liver and Biliary: No biliary abnormality. No abnormal metabolic activity in the liver. Pancreas, Spleen and Adrenals: No abnormal metabolic activity in the pancreas, spleen,or adrenal glands. Kidneys: No hydronephrosis or calculus. ABDOMEN AND PELVIS: Bowel: No small bowel or colonic dilatation. Physiologic metabolic activity present in bowel loops. Vessels: No aneurysm. Lymph Nodes: The subdiaphragmatic lymph node described in the chest section is the only lymph node below the diaphragm this pathologically enlarged. Peritoneum and Retroperitoneum: No intraperitoneal free air, ascites or peritoneal mass. No significant retroperitoneal abnormality. PELVIS: Genitourinary: No hydroureter. No ureteral or bladder calculus. Body Wall: No masses, hernias, or hemorrhage. Bones: No acute fracture or vertebral end plate destruction. No lytic or blastic lesion. Impression Summary of Target Lesions: 1. Large centrally necrotic necrotic mass in the medial aspect of the right lung along the hilum measuring 6.0 x 5.7 cm (SUV 30.1). 2. Conglomerate of right supraclavicular lymph nodes which are centrally necrotic measure 2.3 x 3.1 cm (SUV 20.2). 3. Conglomerate of left supraclavicular lymph nodes measuring 1.9 x 2.2 cm these are also centrally necrotic (SUV 26.5). 4. Left hilar lymphadenopathy measuring 2.2 x 2.5 cm (SUV 26.4). 5. Conglomerate of anterior mediastinal lymphadenopathy measuring 3.3 x 5.1 cm (SUV 27.9). 6. Subdiaphragmatic lymph node which is partially necrotic measuring 2.3 x 2.4 cm (SUV 23.4). Other PET/CT Findings: 1. Atelectasis of the right middle lobe likely secondary to the large hilar mass in the right lung. 2. Small polyp in the right maxillary sinus. Comments: Extensive lymphadenopathy. The large right hilar mass may represent additional lymphadenopathy. The larger lymph nodes as well as the right central lung mass show areas of central necrosis. Given patient's age and findings this likely represents lymphoma. Final Report Signed by: Ananth Gilliam Richard Sign Date/Time: 03/16/2020 12:17 PM Assessment: 1. Cervical lymphadenopathy Case Request - OR/ENDO/ASC/OB: BIOPSY CERVICAL NODE 2. Supraclavicular adenopathy Case Request - OR/ENDO/ASC/OB: BIOPSY CERVICAL NODE 3. Night sweats Plan: 1. I have reviewed the physical examination findings including PET scan findings with the p atient. We have had an extensive discussion regarding the cervical lymphadenopathy. This l ikely represents an underlying lymphoma. I have discussed with the patient that it is of th e utmost importance to obtain a cervical lymph node for diagnosis. Thus, I have recommended excisional biopsy of right deep cervical lymph node/supraclavicular lymph node. We have di scussed the risk, benefits, alternatives, and complications associated with the procedure. He understands risks include, but not limited to, bleeding, infection, injury to the surroun ding neural or vascular structures, or unforeseen complications. He understands these risks and elected to proceed with the procedure. The expected postoperative course was discussed in detail. We discussed that we will be sending this lymph node for lymphoma protocol. He will follow-up postoperatively. 2. The risks and benefits of my recommendations, as well as other treatment options were di scussed with the patient today. 3. Return for follow-up post operatively . I, Josefa Dickey am personally taking down the note in the presence of Dr. Huang . I, Dr. She Huang D.O., personally performed the services described in this documenta tion, as scribed by Josefa Dickey CMA in my presence, and it is accurate and complete. Portions of this chart note have been created with a voice recognition system. The possibil ity of "sound alike" muff winder errors, additions or deletions may occur. If there is any question to the content of the document or with respect to clarity of the message being con veyed, please contact me directly for clarification. documented in thi s encounter Plan of [...] [place] | | | | | | [address] | | | | | | | | +--------+ + + + + | 06/29/ | Office | Oncology | Wilton Jeff MD | | | 2019 | Visit | | [address] | | | | | | [place] | | | | | | [address] | | | | | | | | | | | | Marilou Mcmullen, | | | | | | SHEET ROCK TAPER HELPER [address] | | | | | | [address] | | | | | | [place] [address] | | | | | | [phone] | | | | | | | | +--------+ + + + + | 06/29/ | Appointment | Infusion Therapy | Wilton Jeff MD | | | 2019 | | | [address] | | | | | | [place] | | | | | | [address] | | | | | | | | +--------+ + + + + | 07/14/ | Office | Otolaryngology | She Huang | | | 2019 | Visit | | DO Sophia Canela | | | | | | [address] | | | | | | [place] [address] | | | | | | [phone] | | | | | | | | +--------+ + + + + | 07/20/ | Appointment | Infusion Therapy | Wilton Jeff MD | | | 2019 | | | [address] | | | | | | [place] | | | | | | [address] | | | | | | | | +--------+ + + + + | 07/20/ | Office | Oncology | Wilton Jeff MD | | | 2019 | Visit | | [address] | | | | | | [place] | | | | | | [address] | | | | | | | | +--------+ + + + + | 07/20/ | Appointment | Infusion Therapy | Wilton Jeff MD | | | 2019 | | | [address] | | | | | | [place] | | | | | | [address] | | | | | | | | +--------+ + + + + | 08/17/ | Appointment | Infusion Therapy | Wilton Jeff MD | | | 2019 | | | [address] | | | | | | [place] | | | | | | [address] | | | | | | | | +--------+ + + + + | 08/17/ | Office | Oncology | Wilton Jeff MD | | | 2019 | Visit | | [address] | | | | | | [place] | | | | | | [address] | | | | | | | | +--------+ + + + + documented as of this encounter Visit Diagnoses + + | Diagnosis | + + | Cervical lymphadenopathy - Primary Enlargement of lymph nodes | + + | Supraclavicular adenopathy Enlargement of lymph nodes | + + | Night sweats Generalized hyperhidrosis | + + documented in this encounter
--- OUTSIDE RECORDS SUMMARY | ~2020-06-23 | XMS | Encounter Summary ---
Demographics + + + | Address | [address] | | | [place] [address] | + + + | Home Phone | | + + + | Preferred Language | Unknown | + + + | Marital Status | Single | + + + | Orthodoxy Affiliation | Unknown | + + + | Race | White | + + + | Ethnic Group | Not or | + + + Author + + + | Author | [facility] | | | and [place] | + + + | Organization | [facility] | | | and [...] Team Providers + +------+ + | Care Pull Worker Name | Role | Phone | + +------+ + | Myrna Mejia MD | PCP | | + +------+ + Reason for Referral Diagnostic/Screening (Routine) +--------+--------+ + + + + | Status | Reason | Specialty | Diagnoses / | Referred By | Referred To | | | | | Procedures | Contact | Contact | +--------+--------+ + + + + | Closed | | Radiology | Diagnoses | Farhad | Jeannie Ir | | | | | Other | ED Kay | [address] | | | | | classical | [address] | | | | | Hodgkin | [address] | [place], [place] | | | | | lymphoma of | [place] | [address] | | | | | lymph nodes | [place], [place] | Phone: | | | | | of multiple | [address] | [phone] | | | | | regions | Phone: | Fax: | | | | | (HCC) | [phone] | [phone] | | | | | Procedures | Fax: | | | | | | IR Placement | [phone] | | | | | | Port | | | +--------+--------+ + + + + Reason for Visit + +--------+ + | Reason | Onset | Comments | | | Date | | + +--------+ + | Referral | 03/30/ | | | | 2019 | | + +--------+ + Encounter Details +--------+ + + + + | Date | Type | Department | Care Team | Description | +--------+ + + + + | 03/30/ | Telephone | [facility] | Eliza Llamas, | Referral | | 2019 | | INTERVENTIONAL | [address] | | | | | RADIOLOGY [address] | [address] [address], | | | | | [address] | [place] [address] | | | | | [place], [place] | [phone] | | | | | [address] | | | | | | [phone] | | | +--------+ + + + [...] this encounter Miscellaneous Notes Telephone Encounter - Duane Clemons RN - 03/30/2020 3:47 PM PDTRN spoke to pt and pt scheduled for procedure on 04/01/2020 @ 1000. elephone Encounter - Duane Clemons RN - 03/30/2020 2:30 PM PD TRN spoke to pt and pt checking with ride and will call clinic back to schedule procedure. 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 Patient BMI: 25.48kg/m2 Blood thinners: none Diabetic medications: none Any Red Flags?: Electronically signed by Judy Reed Radiological Equipment Specialist at 0 10:09 AM PDTdocumented in this encounter Plan of Treatment [...] [place] | | | | | | [address] | | | | | | | | +--------+ + + + + | 06/29/ | Office | Oncology | Wilton Jeff MD | | | 2019 | Visit | | [address] | | | | | | [place] | | | | | | [address] | | | | | | | | | | | | Mairlou Mcmullen, | | | | | | LEPIDOPTERIST [address] | | | | | | [address] | | | | | | [place] [address] | | | | | | [phone] | | | | | | | | +--------+ + + + + | 06/29/ | Appointment | Infusion Therapy | Wilton Jeff MD | | | 2019 | | | [address] | | | | | | [place] | | | | | | [address] | | | | | | | | +--------+ + + + + | 07/14/ | Office | Otolaryngology | She Huang | | | 2019 | Visit | | DO [address] Canela | | | | | | [address] | | | | | | [place] [address] | | | | | | [phone] | | | | | | | | +--------+ + + + + | 07/20/ | Appointment | Infusion Therapy | Wilton Jeff MD | | | 2019 | | | [address] | | | | | | [place] | | | | | | [address] | | | | | | | | +--------+ + + + + | 07/20/ | Office | Oncology | Wilton Jeff MD | | | 2019 | Visit | | [address] | | | | | | [place] | | | | | | [address] | | | | | | | | +--------+ + + + + | 07/20/ | Appointment | Infusion Therapy | Wilton Jeff MD | | | 2019 | | | [address] | | | | | | [place] | | | | | | [address] | | | | | | | | +--------+ + + + + | 08/17/ | Appointment | Infusion Therapy | Wilton Jeff MD | | | 2019 | | | [address] | | | | | | [place] | | | | | | [address] | | | | | | | | +--------+ + + + + | 08/17/ | Office | Oncology | Wilton Jeff MD | | | 2019 | Visit | | [address] | | | | | | [place] | | | | | | [address] | | | | | | | | +--------+ + + + + documented as of this encounter Results IR Placement Port (04/01/2020 10:59 AM PDT) + + | Specimen | + + | | + + + + + | Impressions | Performed At | + + + | Uncomplicated ultrasound-guided right IJ chest port placement, tip | [facility] | | in SVC/RA junction ready for use. Final Report Signed by: | | | Ananth Gilliam, Wood Sign Date/Time: 04/01/2020 4:22 PM | | + + + + + + | Narrative | Performed At | + + + | | [facility] | | ULTRASOUND-GUIDED RIGHT IJ CHEST PORT PLACEMENT CLINICAL | | | INFORMATION:Patient with lymphoma who requires long-term IV access for | | | chemotherapy. COMPARISON:None. PROCEDURE:The risks, benefits and | | | alternatives were discussed with the patient;consent was obtained and | | | placed in the patient's chart. The risksincluded but were not limited | | | to bleeding, pneumothorax, infection,termite treater vein occlusion, | | | allergic reaction and . The patient was then brought to the | | | procedure room and placed in thesupine position where the right side | | | of the neck and chest weresterilely prepped and draped in the usual | | | fashion. Maximum sterilebarrier techniques taken. After local | | | anesthetic was administered, asmall incision was made with an 11 | | | blade. Using ultrasound guidance, amicropuncture needle was then | | | utilized to access the right internaljugular vein. Using standard | | | Seldinger technique, a 5 Frenchmicropuncture sheath was position over | | | the wire into the SVC/RAjunction under fluoroscopic guidance. A | | | tunneled tract was anesthetizedwith lidocaine, as was a port pocket. A | | | 15 blade was used to make ahorizontal incision and the pocket was | | | created with blunt dissection.The tunnel tract was then created with | | | blunt dissection and thecatheter was pulled through the tunnel. A | | | 0.035 wire was then advancedinto the IVC and a peel-away sheath was | | | positioned over the wire intothe SVC/RA junction under fluoroscopic | | | guidance. The wire and dilatorwere removed. The catheter was delivered | | | into the SVC/RA junction. Thepeel-away sheath was removed. The | | | catheter was cut to length andattached to the port. The port was then | | | placed into the pocket andflushed. The port pocket was then closed | | | using 3-0 deep interrupted and4-0 running subcuticular absorbable | | | suture. The port was accessed andflushed and per ordering physician | | | request. A single spot film wasobtained over the chest. Conscious | | | sedation was administered. The nurse administered 4 mgVersed and 100 | | | mcg fentanyl during the examination and monitored bloodpressure, | | | heart rate, and pulse oximeter. Physician intraservice timeof 30 | | | minutes. Fluoro Time: 0.8 minutes.Radiation dose: 6 mGy FINDINGS:The | | | ultrasound demonstrated a widely patent and compressible rightinternal | | | jugular vein. A permanent sonographic image was obtained andstored. | | | Intra procedural fluoroscopic imaging showed the tip of thecatheter | | | and the course of the catheter in good position. | | | | | |Conscious sedation was administered. The nurse administered 4 mg | | |Versed and 100 mcg fentanyl during the examination and monitored blood | | |pressure, heart rate, and pulse oximeter. Physician intraservice time | | |of 30 minutes. | | | | | |Fluoro Time: 0.8 minutes. | | |Radiation dose: 6 mGy | | | | | |FINDINGS: | | |The ultrasound demonstrated a widely patent and compressible right | | |internal jugular vein. A permanent sonographic image was obtained and | | |stored. Intra procedural fluoroscopic imaging showed the tip of the | | |catheter and the course of the catheter in good position. | | | | | + + + + + | Procedure Note | + + | Stan, [id number] - 04/01/2020 4:26 PM PDT | | ULTRASOUND-GUIDED RIGHT IJ CHEST PORT PLACEMENT | | | | CLINICAL INFORMATION: | | Patient with lymphoma who requires long-term IV access for chemotherapy. | | | | COMPARISON: | | None. | | | | PROCEDURE: | | The risks, benefits and alternatives were discussed with the patient; | | consent was obtained and placed in the patient's chart. The risks | | included but were not limited to bleeding, pneumothorax, infection, | | skilled nursing vein occlusion, allergic reaction and . | | | | The patient was then brought to the procedure room and placed in the | | supine position where the right side of the neck and chest were | | sterilely prepped and draped in the usual fashion. Maximum sterile | | barrier techniques taken. After local anesthetic was administered, a | | small incision was made with an 11 blade. Using ultrasound guidance, a | | micropuncture needle was then utilized to access the right internal | | jugular vein. Using standard Seldinger technique, a 5 Fijian | | micropuncture sheath was position over the wire into the SVC/RA | | junction under fluoroscopic guidance. A tunneled tract was anesthetized | | with lidocaine, as was a port pocket. A 15 blade was used to make a | | horizontal incision and the pocket was created with blunt dissection. | | The tunnel tract was then created with blunt dissection and the | | catheter was pulled through the tunnel. A 0.035 wire was then advanced | | into the IVC and a peel-away sheath was positioned over the wire into | | the SVC/RA junction under fluoroscopic guidance. The wire and dilator | | were removed. The catheter was delivered into the SVC/RA junction. The | | peel-away sheath was removed. The catheter was cut to length and | | attached to the port. The port was then placed into the pocket and | | flushed. The port pocket was then closed using 3-0 deep interrupted and | | 4-0 running subcuticular absorbable suture. The port was accessed and | | flushed and per ordering physician request. A single spot film was | | obtained over the chest. | | | | Conscious sedation was administered. The nurse administered 4 mg | | Versed and 100 mcg fentanyl during the examination and monitored blood | | pressure, heart rate, and pulse oximeter. Physician intraservice time | | of 30 minutes. | | | | Fluoro Time: 0.8 minutes. | | Radiation dose: 6 mGy | | | | FINDINGS: | | The ultrasound demonstrated a widely patent and compressible right | | internal jugular vein. A permanent sonographic image was obtained and | | stored. Intra procedural fluoroscopic imaging showed the tip of the | | catheter and the course of the catheter in good position. | | | | IMPRESSION: | | Uncomplicated ultrasound-guided right IJ chest port placement, tip in | | SVC/RA junction ready for use. | | | | | | | | Final Report Signed by: Ananth Gilliam Richard | | Sign Date/Time: 04/01/2020 4:22 PM | + + + +---------+ + + | Performing | Address | City/State/[place] | Phone Number | | Organization | [...]
--- OUTSIDE RECORDS SUMMARY | ~2020-06-23 | XMS | Encounter Summary ---
Demographics + + + | Address | [address] | | | [place] [address] | + + + | Home Phone | | + + + | Preferred Language | Unknown | + + + | Marital Status | Single | + + + | Mu-Ism Affiliation | Unknown | + + + | Race | White | + + + | Ethnic Group | Not or | + + + Author + + + | Author | [facility] | | | and [place] | + + + | Organization | [facility] | | [...] Team Providers + +------+ + | Care Hemodialysis Charge Nurse Name | Role | Phone | + +------+ + | Myrna Mejia MD | PCP | | + +------+ + Reason for Visit + + + | Reason | Comments | + + + | Follow-up | | + + + Encounter Details +--------+---------+ + + + | Date | Type | Department | Care Team | Description | +--------+---------+ + + + | 04/17/ | Office | [facility] | Wilton Jeff MD | Diffuse large B-cell | | 2019 | Visit | HEMATOLOGY AND | [address] | lymphoma of lymph | | | | ONCOLOGY [address] | [place] | nodes of multiple | | | | [address] | [address] | regions (HCC) | | | | [place] | | (Primary Dx) | | | | [address] | | | | | | [phone] | | | +--------+---------+ + + + [...] + + + | Blood Pressure | 122/76 | 04/17/2020 10:05 AM | | | | | PDT | | + + + + + | Pulse | 94 | 04/17/2020 10:05 AM | | | | | PDT | | + + + + + | Temperature | 36.4 C (97.5 F) | 04/17/2020 10:05 AM | | | | | PDT | | + + + + + | Respiratory Rate | 18 | 04/17/2020 10:05 AM | | | | | PDT | | + + + + + | Oxygen Saturation | 100% | 04/17/2020 10:05 AM | | | | | PDT | | + + + + + | Inhaled Oxygen | - | - | | | Concentration | | | | + + + + + | Weight | 87.1 kg (192 lb 1.3 | 04/17/2020 10:05 AM | | | | oz) | PDT | | + + + + + | Height | 180.3 cm (5' 10.98") | 04/17/2020 10:05 AM | | | | | PDT | | + + + + + | Body Mass Index | 26.8 | 04/17/2020 10:05 AM | | | | | PDT | | + + + + + documented in this encounter Progress Notes Wilton Jeff MD - 04/17/2020 10:00 AM PDTFormatting of this note might be different from t he original. [facility] Hematology & Oncology Oncology Progress Note Patient [...] dyspnea on exertion and URI symptoms be nning October 2019. He was initially treated with [...] of rituximab on April 06, 2020 at [facility]. He then received days 1-5 of EPOCH [...] DA-R-EPOCH. Reason for Office Visit/Interval History Asad tolerated his first cycle of chemotherapy well. He reports that been after receiving just the rituximab on day 0, he already felt an improvement in his breathing, cough, and ly mphadenopathy. His hospitalization in [facility] was uneventful. He feels well today and repor ts no new or unusual symptoms in fact reports feeling significantly better compared to prior to receiving chemotherapy. The patient has no other complaints today other than that liste d in the review of systems. 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 Indications: Herpes Zoster Prevention in Immunocompromised 240 capsule 5 allopurinol (ZYLOPRIM) 300 mg tablet Take 1 tablet by mouth Daily. 10 tablet 0 aluminum & magnesium lermpwtie-fvnaxytdayb-kldbvaottzXTSQW-lidocaine Swish and spit 15 mLs every 4 hours as needed for Sore Throat. 600 mL 2 benzonatate (TESSALON) 100 mg capsule Take 100 mg by mouth 3 times daily as needed for Cough. vlghrxfhaqrcggd-czzvhihttmaqpw-uvvvucld (DUKES MOUTHWASH) suspension Swish and spit 10 [...] as needed for Nausea. 20 tablet 0 predniSONE (DELTASONE) 50 mg [...] this visit. Medications reviewed and updated on 04/17/2020 Review of Systems Review of Systems Constitutional: Negative for fatigue and fever. HENT: Negative. Eyes: Negative for visual disturbance. Respiratory: Negative for cough and shortness of breath. Cardiovascular: Negative. Gastrointestinal: Negative. Endocrine: Negative for polydipsia and polyphagia. Genitourinary: Negative. Musculoskeletal: Negative. Skin: Negative. Neurological: Negative. Hematological: Negative for adenopathy. Does not bruise/bleed easily. Psychiatric/Behavioral: Negative. Physical Exam BP 122/76 | Pulse 94 | Temp 36.4 C (97.5 F) (Tympanic) | Resp 18 | Ht 1.803 m (5' 1 0.98") | Wt 87.1 kg (192 lb 1.3 oz) | SpO2 100% | BMI 26.80 kg/m ECOG Performance Status: 0 Physical Exam [...] Metabolic Panel Result Value Ref Range Na 138 135 - 145 mmol/L K 3.9 3.5 - 4.9 mmol/L Cl 98 98 - 107 mmol/L CO2 31 (H) 22 - 29 mmol/L Anion Gap 13 5 - 20 mmol/L Glucose 84 74 - 99 mg/dL BUN 20 6 - 20 mg/dL Creatinine 0.81 0.7 - 1.2 mg/dL BUN/Creatinine Ratio 25 Calcium 9.2 8.6 - 10.2 mg/dL Protein, Total 6.6 6.5 - 8.5 g/dL Albumin 4.1 3.3 - 5 g/dL Globulin 2.5 1.3 - 4.9 g/dL A/G Ratio 1.6 1.0 - 2.4 BILIRUBIN, TOTAL 0.2 0.2 - 1 mg/dL ALK PHOS 111 40 - 125 U/L AST 36 5 - 40 U/L ALT 62 (H) 5 - 41 U/L Estimated GFR >60 >60 mL/min/1.73m2 CBC with Differential Result Value Ref Range WBC 20.89 (H) 3.80 - 11.00 K/uL Red Blood Cells 4.01 (L) 4.20 - 5.70 M/uL Hemoglobin 11.3 (L) 13.2 - 17.0 g/dL Hematocrit 34.4 (L) 39.0 - 50.0 % MCV 85.9 80.0 - 100.0 fl MCH 28.3 27.0 - 34.0 pg MCHC 32.9 32.0 - 35.5 g/dL RDW-SD 44.6 37 - 53 fl Platelet Count 400 150 - 400 K/uL MPV 7.0 fl Diff Type MANUAL % Segmented Neutrophils 85 % % Bands 13 % % Lymphocytes 1 % % Monocytes 1 % Neutrophils, Absolute 17.75 (H) 1.90 - 7.40 K/uL Absolute Band Neutrophils 2.72 (H) 0.00 - 0.20 K/uL Absolute Lymphocytes 0.21 (L) 1.00 - 3.90 K/uL Absolute Monocytes 0.21 0.00 - 0.80 K/uL RBC Morphology RBC AND PLT MORPHOLOGY [...] of rituximab on April 06, 2020 at [facility]. He then received days 1-5 of EPOCH from April 09-2019. Plan At the end of today's discussion, the patient expressed understanding and willingness to pr oceed with the plan as outlined below: 1. Follow-up in April 27, 2020 to receive day 0 of rituximab. 2. He will be subsequently admitted on April 29 to receive days 1 through 5 of EPOCH with the dose escalation as recommended per protocol. 3. Follow-up on May 14, 2020 to be cleared for the next cycle of chemotherapy which b egins in May 18, 2020. 4. The patient was counseled on the [...] any questions or concerns. Wilton Jeff MD [facility] Hematology & Oncology 04/17/2020 Portions of this chart may have been [...] [place] | | | | | | [address] | | | | | | | | +--------+ + + + + | 06/29/ | Office | Oncology | Wilton Jeff MD | | | 2019 | Visit | | [address] | | | | | | [place] | | | | | | [address] | | | | | | | | | | | | Marilou Mcmullen, | | | | | | LADLE LINER [address] | | | | [address] | | | | | | [place] [address] | | | | | | [phone] | | | | | | | | +--------+ + + + + | 06/29/ | Appointment | Infusion Therapy | Wilton Jeff MD | | | 2019 | | | [address] | | | | | | [place] | | | | | | [address] | | | | | | | | +--------+ + + + + | 07/14/ | Office | Otolaryngology | She Huang | | | 2019 | Visit | | DO [address] | | | | | | [address] | | | | | | [place] [address] | | | | | | [phone] | | | | | | | | +--------+ + + + + | 07/20/ | Appointment | Infusion Therapy | Wilton Jeff MD | | | 2019 | | | [address] | | | | | | [place] | | | | | | [address] | | | | | | | | +--------+ + + + + | 07/20/ | Office | Oncology | Wilton Jeff MD | | | 2019 | Visit | | [address] | | | | | | [place] | | | | | | [address] | | | | | | | | +--------+ + + + + | 07/20/ | Appointment | Infusion Therapy | Wilton Jeff MD | | | 2019 | | | [address] | | | | | | [place] | | | | | | [address] | | | | | | | | +--------+ + + + + | 08/17/ | Appointment | Infusion Therapy | Wilton Jeff MD | | | 2019 | | | [address] | | | | | | [place] | | | | | | [address] | | | | | | | | +--------+ + + + + | 08/17/ | Office | Oncology | Wilton Jeff MD | | | 2019 | Visit | | [address] | | | | | | [place] | | | | | | [address] | | | | | | | | +--------+ + + + + documented as of this encounter Visit Diagnoses + + | Diagnosis | + + | 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
--- OUTSIDE RECORDS SUMMARY | ~2020-06-23 | XMS | Encounter Summary ---
Demographics + + + | Address | [address] | | | [place] [address] | + + + | Home Phone | | + + + | Preferred Language | Unknown | + + + | Marital Status | Single | + + + | Moravian Affiliation | Unknown | + + + | Race | White | + + + | Ethnic Group | Not or | + + + Author + + + | Author | [facility] | | | and [place] | + + + | Organization | [facility] | | | [...] Team Providers + +------+ + | Care Supervisor Inspection Name | Role | Phone | + +------+ + | Myrna Mejia MD | PCP | | + +------+ + Reason for Visit + +--------+ + | Reason | Onset | Comments | | | Date | | + +--------+ + | Appointment | 06/12/ | | | | 2020 | | + +--------+ + Encounter Details +--------+ + + + + | Date | Type | Department | Care Team | Description | +--------+ + + + + | 06/12/ | Telephone | [facility] | Fabio Hallman RN | Appointment | | 2019 | | INFUSION SUPPORT | | | | | | SERVICES [address] | | | | | | [address] | | | | | | [address] [place] | | | | | | [address] | | | | | | [phone] | | | +--------+ + + + [...] this encounter Miscellaneous Notes Telephone Encounter - Fabio Hallman RN - 06/12/2020 10:25 AM Negar Gonzalez and request. Pt schedule for Udangellaa changed to 06/17/20 from 06/16/20. Phoned 's Same day Surgery unit. Confirmed they do have the orders from ' s office. And no not need new orders to change date of injections. They will contact patient with appt time. documented in this enco unter Plan of [...] [place] | | | | | | [address] | | | | | | | | +--------+ + + + + | 06/29/ | Office | Oncology | Wilton Jeff MD | | | 2019 | Visit | | [address] | | | | | | [place] | | | | | | [address] | | | | | | | | | | | | Marilou Mcmullen, | | | | | | [address] | | | | | | [address] | | | | | | [place] [address] | | | | | | [phone] | | | | | | | | +--------+ + + + + | 06/29/ | Appointment | Infusion Therapy | Wilton Jeff MD | | | 2019 | | | [address] | | | | | | [place] | | | | | | [address] | | | | | | | | +--------+ + + + + | 07/14/ | Office | Otolaryngology | She Huang | | | 2019 | Visit | | DO Sophia Canela | | | | | | [address] | | | | | | [place] [address] | | | | | | [phone] | | | | | | | | +--------+ + + + + | 07/20/ | Appointment | Infusion Therapy | Wilton Jeff MD | | | 2019 | | | [address] | | | | | | [place] | | | | | | [address] | | | | | | | | +--------+ + + + + | 07/20/ | Office | Oncology | Wilton Jeff MD | | | 2019 | Visit | | [address] | | | | | | [place] | | | | | | [address] | | | | | | | | +--------+ + + + + | 07/20/ | Appointment | Infusion Therapy | Wilton Jeff MD | | | 2019 | | | [address] | | | | | | [place] | | | | | | [address] | | | | | | | | +--------+ + + + + | 08/17/ | Appointment | Infusion Therapy | Wilton Jeff MD | | | 2019 | | | [address] | | | | | | [place] | | | | | | [address] | | | | | | | | +--------+ + + + + | 08/17/ | Office | Oncology | Wilton Jeff MD | | | 2019 | Visit | | [address] | | | | | | [place] | | | | | | [address] | | | | | | | | +--------+ + + + + documented as of this encounter Visit Diagnoses Not on filedocumented in this encounter"
--- OUTSIDE RECORDS SUMMARY | ~2020-06-23 | XMS | Encounter Summary ---
Demographics + + + | Address | [address] | | | [place] [address] | + + + | Home Phone [...] Author + + + | Author | [facility] | | | and [place] | + + + | Organization | [facility] | | [...] Team Providers + +------+ + | Care Manager Trade Name | Role | Phone | + +------+ + | Myrna Mejia MD | PCP | | + +------+ + Reason for Visit +--------+--------+ + | Reason | Onset | Comments | | | Date | | +--------+--------+ + | Triage | 04/27/ | | | | 2019 | | +--------+--------+ + Encounter Details +--------+ + + + + | Date | Type | Department | Care Team | Description | +--------+ + + + + | 04/27/ | Telephone | [facility] | Tina Cadet RN | Triage | | 2019 | | INFUSION SUPPORT | | | | | | SERVICES [address] | | | | | | [address] | | | | | | [address] [place] | | | | | | [address] | | | | | | [phone] | | | +--------+ + + + [...] Telephone Encounter - Wilton Jeff MD - 04/27/2020 11:55 AM PDTPerfectElectronically hayden d by Wilton Jeff MD at 04/27/2020 11:55 AM PDTTelephone Encounter - Tina Cadet RN - 10:25 AM PDTOutLook Email sent to [facility] Oncology Direct Admit Notification: ONC DA Patient: Asad Longo : 1990 Dx: B-Cell Lymphoma Provider Contact: Dr. Jeff Admit Date: EVENING 04/29/20 Chemo Date: 04/30/20 Regimen: C2 EPOCH Patient receiving C2 Rituxan today IN CLINIC Notes: Patient is scheduled IN CLINIC for Udenyca injection on Monday05/05/20 at 3pm. elephone Encounter - Tina Cadet RN - 04/27/2020 10:24 AM PDT----- Message from Wilton Jeff MD sent at 2019 9:25 AM PDT ----- Admit Monday night, 04/29, for C2 EPOCH to start , 04/30. documented in this enc ounter Plan of [...] [place] | | | | | | [address] | | | | | | | | +--------+ + + + + | 06/29/ | Office | Oncology | Wilton Jeff MD | | | 2019 | Visit | | [address] | | | | | | [place] | | | | | | [address] | | | | | | | | | | | | Marilou Mcmullen, | | | | | | DRUM SAW OPERATOR [address] | | | | | [address] | | | | | | [place] [address] | | | | | | [phone] | | | | | | | | +--------+ + + + + | 06/29/ | Appointment | Infusion Therapy | Wilton Jeff MD | | | 2019 | | | [address] | | | | | | [place] | | | | | | [address] | | | | | | | | +--------+ + + + + | 07/14/ | Office | Otolaryngology | She Huang | | | 2019 | Visit | | DO Sophia Canela | | | | | | [address] | | | | | | [place] [address] | | | | | | [phone] | | | | | | | | +--------+ + + + + | 07/20/ | Appointment | Infusion Therapy | Wilton Jeff MD | | | 2019 | | | [address] | | | | | | [place] | | | | | | [address] | | | | | | | | +--------+ + + + + | 07/20/ | Office | Oncology | Wilton Jeff MD | | | 2019 | Visit | | [address] | | | | | | [place] | | | | | | [address] | | | | | | | | +--------+ + + + + | 07/20/ | Appointment | Infusion Therapy | Wilton Jeff MD | | | 2019 | | | [address] | | | | | | [place] | | | | | | [address] | | | | | | | | +--------+ + + + + | 08/17/ | Appointment | Infusion Therapy | Wilton Jeff MD | | | 2019 | | | [address] | | | | | | [place] | | | | | | [address] | | | | | | | | +--------+ + + + + | 08/17/ | Office | Oncology | Wilton Jeff MD | | | 2019 | Visit | | [address] | | | | | | [place] | | | | | | [address] | | | | | | | | +--------+ + + + + documented as of this encounter Visit Diagnoses Not on filedocumented in this encounter"
--- OUTSIDE RECORDS SUMMARY | ~2020-06-23 | XMS | Encounter Summary ---
Demographics + + + | Address | [address] | | | [place] [address] | + + + | Home Phone | | + + + | Preferred Language | Unknown | + + + | Marital Status | Single | + + + | Yarsani Affiliation | Unknown | + + + | Race | White | + + + | Ethnic Group | Not or | + + + Author + + + | Author | [facility] | | | and [place] | + + + | Organization | [facility] | | | [...] Team Providers + +------+ + | Care Operational Risk Consultant Name | Role | Phone | + [...] Description | +--------+---------+ + + + | 06/08/ | Office | [facility] | Wilton Jeff MD | Diffuse large B-cell | | 2019 | Visit | HEMATOLOGY AND | [address] | lymphoma of lymph | | | | ONCOLOGY [address] | [place] | nodes of multiple | | | | [address] | [address] | regions (HCC) | | | | [place] | | (Primary Dx) | | | | [address] | | | | | | [phone] | | | +--------+---------+ + + + [...] + + + | Blood Pressure | 102/74 | 06/08/2020 10:22 AM | | | | | PDT | | + + + + + | Pulse | 80 | 06/08/2020 10:22 AM | | | | | PDT | | + + + + + | Temperature | 36.1 C (97 F) | 06/08/2020 10:22 AM | | | | | PDT | | + + + + + | Respiratory Rate | 18 | 06/08/2020 10:22 AM | | | | | PDT | | + + + + + | Oxygen Saturation | 100% | 06/08/2020 10:22 AM | | | | | PDT | | + + + + + | Inhaled Oxygen | - | - | | | Concentration | | | | + + + + + | Weight | 101.2 kg (223 lb) | 06/08/2020 10:22 AM | | | | | PDT | | + + + + + | Height | 180.3 cm (5' 11") | 06/08/2020 10:22 AM | | | | | PDT | | + + + + + | Body Mass Index | 31.1 | 06/08/2020 10:22 AM | | | | | PDT | | + + + + + documented in this encounter Functional Status + + + [...] documented as of this encounter Progress Notes Wilton Jeff MD - 06/08/2020 10:30 AM PDTFormatting of this note might be different from t he original. [facility] Oncology Progress Note Patient Name: ASAD LONGO Date of : 1990 Age: 30 y.o. PCP: Myrna Mejia MD Cancer Diagnosis and Stage Cancer Staging Diffuse large B-cell lymphoma of lymph nodes of multiple regions (HCC) Staging form: Hodgkin And Non-Hodgkin Lymphoma, AJCC 8th Edition - Clinical stage from 03/31/2020: Stage III (Diffuse large B-cell lymphoma) - Signed by Wilton Jeff MD on 03/31/2020 History of Present Illness Mr. Asad Longo is a pleasant 30 y.o. male with no significant past medical [...] of rituximab on April 06, 2020 at [facility]. He then received days 1-5 of [...] Office Visit/Interval History Asad today for cycle 4 of chemotherapy. He has been feeling well since his last visit wit h no new complaints reported. He denies any fevers, night sweats, or unintentional weight l oss. He denies any pulmonary symptoms such as chest pain, shortness of breath, cough, sputu m production, or hemoptysis. The patient denies chest pain, palpitations, cough, shortness o f breath, extreme fatigue, exercise intolerance, PND, orthopnea, unexpected weight gain or l ower extremity edema. The patient has no other complaints today other than that listed in e review of systems. 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 Family History Problem Relation Age of [...] file Gets together: Not on file Attends voodoo service: Not on file Active member of [...] medical history above reviewed and updated on 06/08/2020 Medications Current Outpatient Medications Medication Sig Dispense Refill acetaminophen (TYLENOL) 500 mg tablet Take 1,000 mg by mouth every 6 hours as needed fo r Pain. acyclovir (ZOVIRAX) 200 mg capsule Take 4 capsules by mouth 2 times daily. Indications: Herpes Zoster Prevention in Immunocompromised 240 capsule 5 aluminum & magnesium ustxrihjs-atjmeejylqq-zokgvdjraiVICYI-lidocaine Swish and spit 15 mLs every 4 hours as needed for Sore Throat. 600 mL 2 benzonatate (TESSALON) 100 mg capsule Take 100 mg by mouth 3 times daily as needed for Cough. kfxdghalttxnlmc-tbocykcuqpufhq-edjgnzwy (DUKES MOUTHWASH) suspension Swish and spit 10 mLs 4 times daily. (Patient not taking: Reported on 05/19/2020.) 240 mL 1 lidocaine-prilocaine (EMLA) cream Apply generously to port site and cover with tegaderm or saran wrap 1 hour prior to chemo.. (Patient not taking: Reported on 06/08/2020.) 30 g [address] onto the skin. ondansetron (ZOFRAN ODT) 4 mg disintegrating tablet Take 1 tablet by mouth every 6 hour s as needed for Nausea. 20 tablet 0 No current facility-administered medications for this visit. Facility-Administered Medications Ordered in Other Visits Medication Dose Route Frequency Provider Last Rate Last Dose heparin 100 units/mL flush injection 500 Units 5 mL Intracatheter PRN Wilton Jeff MD sodium chloride 0.9% flush 10 mL 10 mL Intracatheter PRN Wilton Jeff MD 20 mL at 0826 Medications reviewed and updated on 06/08/2020 Review of Systems Review of Systems Constitutional: Negative for fatigue and fever. HENT: Negative. Eyes: Negative for visual disturbance. Respiratory: Negative for cough and shortness of breath. Cardiovascular: Negative. Gastrointestinal: Negative. Endocrine: Negative for polydipsia and polyphagia. Genitourinary: Negative. Musculoskeletal: Negative. Skin: Negative. Neurological: Negative. Hematological: Negative for adenopathy. Does not bruise/bleed easily. Psychiatric/Behavioral: Negative. Physical Exam BP 102/74 | Pulse 80 | Temp 36.1 C (97 F) (Tympanic) | Resp 18 | Ht 1.803 m (5' 11" ) | Wt 101.2 kg (223 lb) | SpO2 100% | BMI 31.10 kg/m ECOG Performance Status: 0 Physical Exam [...] Recent Results (from the past 24 hour(s)) CBC with Differential Result Value Ref Range WBC 17.72 (H) 3.80 - 11.00 K/uL Red Blood Cells 3.68 (L) 4.20 - 5.70 M/uL Hemoglobin 11.0 (L) 13.2 - 17.0 g/dL Hematocrit 33.0 (L) 39.0 - 50.0 % MCV 89.6 80.0 - 100.0 fl MCH 29.9 27.0 - 34.0 pg MCHC 33.3 32.0 - 35.5 g/dL RDW-SD 69.1 (H) 37 - 53 fl Platelet Count 308 150 - 400 K/uL MPV 7.3 fl Diff Type MANUAL % Segmented Neutrophils 60 % % Bands 20 % % Metamyelocytes 5 % % Lymphocytes 7 % % Monocytes 8 % Neutrophils, Absolute 10.63 (H) 1.90 - 7.40 K/uL Absolute Band Neutrophils 3.54 (H) 0.00 - 0.20 K/uL Absolute Metamyelocytes 0.89 (H) 0.00 K/uL Absolute Lymphocytes 1.24 1.00 - 3.90 K/uL Absolute Monocytes 1.42 (H) 0.00 - 0.80 K/uL RBC Morphology 3+ Comprehensive Metabolic Panel Result Value Ref Range Na 138 135 - 145 mmol/L K 4.0 3.5 - 4.9 mmol/L Cl 103 98 - 107 mmol/L CO2 25 22 - 29 mmol/L Anion Gap 14 5 - 20 mmol/L Glucose 97 74 - 99 mg/dL BUN 16 6 - 20 mg/dL Creatinine 0.82 0.7 - 1.2 mg/dL BUN/Creatinine Ratio 20 Calcium 9.5 8.6 - 10.2 mg/dL Protein, Total 7.0 6.5 - 8.5 g/dL Albumin 4.6 3.3 - 5 g/dL Globulin 2.4 1.3 - 4.9 g/dL A/G Ratio 1.9 1.0 - 2.4 BILIRUBIN, TOTAL 0.3 0.2 - 1 mg/dL ALK PHOS 90 40 - 125 U/L AST 17 5 - 40 U/L ALT 21 5 - 41 U/L Estimated GFR >60 >60 mL/min/1.73m2 Assessment Mr. Asad Longo is a pleasant 30 y.o. male with a Stage III mediastinal [...] of rituximab on April 06, 2020 at [facility]. He then received days 1-5 of EPOCH from April 09-2019. Plan At the end of today's discussion, the patient expressed understanding and willingness to pr oceed with the plan as outlined below: 1. Proceed with C4 rituximab today. 2. He will be admitted June 10, 2020 to begin C4 DA-EPOCH beginning June 11. 3. Continue all supportive measures. 4. CAT scan after completing all 6 cycles of chemotherapy 5. The patient was counseled on the [...] Jeff MD [facility] 06/08/2020 Portions of this chart may have been [...] [place] | | | | | | [address] | | | | | | | | +--------+ + + + + | 06/29/ | Office | Oncology | Wilton Jeff MD | | | 2019 | Visit | | [address] | | | | | | [place] | | | | | | [address] | | | | | | | | | | | | Marilou Mcmullen, | | | | | | GOLD MARKER [address] | | | | | [address] | | | | | | [place] [address] | | | | | | [phone] | | | | | | | | +--------+ + + + + | 06/29/ | Appointment | Infusion Therapy | Wilton Jeff MD | | | 2019 | | | [address] | | | | | | [place] | | | | | | [address] | | | | | | | | +--------+ + + + + | 07/14/ | Office | Otolaryngology | She Huang | | | 2019 | Visit | | DO Sophia Canela | | | | | | [address] | | | | | | [place] [address] | | | | | | [phone] | | | | | | | | +--------+ + + + + | 07/20/ | Appointment | Infusion Therapy | Wilton Jeff MD | | | 2019 | | | [address] | | | | | | [place] | | | | | | [address] | | | | | | | | +--------+ + + + + | 07/20/ | Office | Oncology | Wilton Jeff MD | | | 2019 | Visit | | [address] | | | | | | [place] | | | | | | [address] | | | | | | | | +--------+ + + + + | 07/20/ | Appointment | Infusion Therapy | Wilton Jeff MD | | | 2019 | | | [address] | | | | | | [place] | | | | | | [address] | | | | | | | | +--------+ + + + + | 08/17/ | Appointment | Infusion Therapy | Wilton Jeff MD | | | 2019 | | | [address] | | | | | | [place] | | | | | | [address] | | | | | | | | +--------+ + + + + | 08/17/ | Office | Oncology | Wilton Jeff MD | | | 2019 | Visit | | [address] | | | | | | [place] | | | | | | [address] | | | | | | | | +--------+ + + + + documented as of this encounter Visit Diagnoses + + | Diagnosis | + + | 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
--- OUTSIDE RECORDS SUMMARY | ~2020-06-23 | XMS | Encounter Summary ---
Demographics + + + | Address | [address] | | | [place] [address] | + + + | Home Phone [...] + + + | Author | [facility] | | | and [place] | + + + | Organization | [facility] | | [...] Team Providers + +------+ + | Care Philosophy Instructor Name | Role | Phone | + +------+ + | Myrna Mejia MD | PCP | | + +------+ + Reason for Visit +--------+--------+ + | Reason | Onset | Comments | | | Date | | +--------+--------+ + | Other | 05/21/ | Coordination of Care | | | 2020 | | +--------+--------+ + Encounter Details +--------+ + + + + | Date | Type | Department | Care Team | Description | +--------+ + + + + | 05/21/ | Telephone | [facility] | Tina Cadet RN | Other (Coordination | | 2019 | | INFUSION SUPPORT | | of Care) | | | | SERVICES [address] | | | | | [address] | | | | | | [address] [place] | | | | | | [address] | | | | | | [phone] | | | +--------+ + + + [...] do you have serious | No | 05/19/2020 | | difficulty hearing? | | | + + + + | Are you blind or do you have serious | No | 05/19/2020 | | difficulty seeing, even when wearing | | | | glasses? | | | + + + + | Do you have serious difficulty walking or | No | 05/19/2020 | | climbing stairs? (5 years old or older) | | | + + + + | Do you have difficulty dressing or bathing? | No | 05/19/2020 | | (5 years old or older) | | | + + + + | Because of a physical, mental, or emotional | No | 05/19/2020 | | condition, do you have difficulty [...] physical, mental, or emotional | No | 05/19/2020 | | condition, do you have serious difficulty | | | | concentrating, remembering, or making | | | | decisions? (5 years old or older) | | | + + + + documented as of this encounter Miscellaneous Notes Telephone Encounter - Brenna Davis RN - 05/25/2020 3:38 PM PDTLeft a detailed voice me ssage informing patient of injection appointment at [facility] on 05/26. elephone Encounter - Tina Cadet RN - 05/21/2020 4:51 PM PDTReceived call back from Iman at [facility]'s Day Surgery Unit. She confirmed that they received the Udenyca orders. Asad's appt day/time: 05/26/20 at 2pm Lisa: Can you get this information to the patient? elephone Encounter - Tina Cadet RN - 05/21/2020 4:[address] Mejia's office, [place], [place]. Spoke with Hilaria, who confirms that she faxe d the orders for Udenyca 6mg SC injection to [facility]. I also called [facility] Day Surgery unit to confirm receipt of the Udenyca orders and to obtain confirmation that he is scheduled for 05/26/20 in the afternoon, and to obtain an ISAAC OINTMENT TIME. No answer, left a VM message for "Romy" asking her to call back to triage to confirm that this patient is scheduled and to give us a time for the injection. We will inform Lisa o f the time so the patient can hopefully have this information before discharge. I did ask h er to call back today if possible, however, if she calls back tomorrow, I will forward this information to the triage pool for follow up. Dr. Mejia's office ([facility]) [facility] (ask to be connected to Day Surgery unit). documented in this encounter Plan of Treatment [...] [place] | | | | | | [address] | | | | | | | | +--------+ + + + + | 06/29/ | Office | Oncology | Wilton Jeff MD | | 2019 | Visit | | [address] | | | | | | [place] | | | | | | [address] | | | | | | | | | | | | Marilou Mcmullen, | | | | | | [address] | | | | | | [address] | | | | | | [place] [address] | | | | | | [phone] | | | | | | | | +--------+ + + + + | 06/29/ | Appointment | Infusion Therapy | Wilton Jeff MD | | | 2019 | | | [address] | | | | | | [place] | | | | | | [address] | | | | | | | | +--------+ + + + + | 07/14/ | Office | Otolaryngology | She Huang | | 2019 | Visit | | DO Sopiha Canela | | | | | | [address] | | | | | | [place] [address] | | | | | | [phone] | | | | | | | | +--------+ + + + + | 07/20/ | Appointment | Infusion Therapy | Wilton Jeff MD | | | 2019 | | | [address] | | | | | | [place] | | | | | | [address] | | | | | | | | +--------+ + + + + | 07/20/ | Office | Oncology | Wilton Jeff MD | | | 2019 | Visit | | [address] | | | | | | [place] | | | | | | [address] | | | | | | | | +--------+ + + + + | 07/20/ | Appointment | Infusion Therapy | Wilton Jeff MD | | | 2019 | | | [address] | | | | | | [place] | | | | | | [address] | | | | | | | | +--------+ + + + + | 08/17/ | Appointment | Infusion Therapy | Wilton Jeff MD | | | 2019 | | | [address] | | | | | | [place] | | | | | | [address] | | | | | | | | +--------+ + + + + | 08/17/ | Office | Oncology | Wilton Jeff MD | | | 2019 | Visit | | [address] | | | | | | [place] | | | | | | [address] | | | | | | | | +--------+ + + + + documented as of this encounter Visit Diagnoses Not on filedocumented in this encounter
--- OUTSIDE RECORDS SUMMARY | ~2020-06-23 | XMS | Encounter Summary ---
Demographics + + + | Address | [address] | | | [place] [address] | + + + | Home Phone | | + + + | Preferred Language | Unknown | + + + | Marital Status | Single | + + + | Zoroastrian Affiliation | Unknown | + + + | Race | White | + + + | Ethnic Group | Not or | + + + Author + + + | Author | [facility] | | | and [place] | + + + | Organization | [facility] | | [...] Team Providers + +------+ + | Care Marine Meteorologist Name | Role | Phone | + +------+ + | Myrna Mejia MD | PCP | | + +------+ + Reason for Visit +--------+--------+ + | Reason | Onset | Comments | | | Date | | +--------+--------+ + | Pre-Op | 03/31/ | | | | 2020 | | +--------+--------+ + Encounter Details +--------+ + + + + | Date | Type | Department | Care Team | Description | +--------+ + + + + | 03/31/ | Telephone | [facility] | [facility] | Pre-Op | | 2019 | | CENTER CV INTRA OP | MD [address] | | | | | [address] | [address] | | | | | [place], [place] | [place] [address] | | | | | [address] | [phone] | | | | | [phone] | | | +--------+ + + + [...] this encounter Miscellaneous Notes Telephone Encounter - Ammon Mcdermott - 03/31/2020 2:32 PM PDTSpoke with patient regarding pr e op instructions. Asked all COVID-19 scheduling questions. All answers were no. documented in this encounter Plan of Treatment [...] [place] | | | | | | [id number] | | | | | | | | +--------+ + + + + | 06/29/ | Office | Oncology | Wilton Jeff MD | | 2019 | Visit | | [address] | | | | | | [place] | | | | | | [address] | | | | | | | | | | | | Marilou Mcmullen, | | | | | | [address] | | | | | [address] | | | | | | [place] [address] | | | | | | [phone] | | | | | | | | +--------+ + + + + | 06/29/ | Appointment | Infusion Therapy | Wilton Jeff MD | | | 2019 | | | [address] | | | | | | [place] | | | | | | [address] | | | | | | | | +--------+ + + + + | 07/14/ | Office | Otolaryngology | She Huang | | | 2019 | Visit | | DO Sophia Canela | | | | | | [address] | | | | | | [place] [address] | | | | | | [phone] | | | | | | | | +--------+ + + + + | 07/20/ | Appointment | Infusion Therapy | Wilton Jeff MD | | | 2019 | | | [address] | | | | | | [place] | | | | | | [address] | | | | | | | | +--------+ + + + + | 07/20/ | Office | Oncology | Wilton Jeff MD | | | 2019 | Visit | | [address] | | | | | | [place] | | | | | | [address] | | | | | | | | +--------+ + + + + | 07/20/ | Appointment | Infusion Therapy | Wilton Jeff MD | | | 2019 | | | [address] | | | | | | [place] | | | | | | [address] | | | | | | | | +--------+ + + + + | 08/17/ | Appointment | Infusion Therapy | Wilton Jeff MD | | | 2019 | | | [address] | | | | | | [place] | | | | | | [address] | | | | | | | [...]
--- OUTSIDE RECORDS SUMMARY | ~2020-06-23 | XMS | Encounter Summary ---
Demographics + + + | Address | [address] | | | [place] [address] | + + + | Home Phone [...] Author + + + | Author | [facility] | | | and [place] | + + + | Organization | [facility] | | | [...] Team Providers + +------+ + | Care Narcotics And Vice Detective Name | Role | Phone | + +------+ + | Myrna Mejia MD | PCP | | + +------+ + Encounter Details +--------+ + + + + | Date | Type | Department | Care Team | Description | +--------+ + + + + | 04/15/ | Orders Only | [facility] | Wilton Jeff MD | | | 2020 | | HEMATOLOGY AND | [address] | | | | | ONCOLOGY [address] | [place] | | | | | [address] | [address] | | | | | [place] | | | | | | [address] | | | | | | [phone] | | | +--------+ + + + [...] [place] | | | | | | [address] | | | | | | | | +--------+ + + + + | 06/29/ | Office | Oncology | Wilton Jeff MD | | | 2019 | Visit | | [address] | | | | | | [place] | | | | | | [address] | | | | | | | | | | | | Marilou Mcmullen, | | | | | | COPYING MACHINE REPAIRER [address] | | | | | | [address] | | | | | | [place] [address] | | | | | | [phone] | | | | | | | | +--------+ + + + + | 06/29/ | Appointment | Infusion Therapy | Wilton Jeff MD | | | 2019 | | | [address] | | | | | | [place] | | | | | | [address] | | | | | | | | +--------+ + + + + | 07/14/ | Office | Otolaryngology | She Huang | | | 2019 | Visit | | DO Sophia Canela | | | | | | [place] [address] | | | | | | [place] [address] | | | | | | [phone] | | | | | | | | +--------+ + + + + | 07/20/ | Appointment | Infusion Therapy | Wilton Jeff MD | | | 2019 | | | [address] | | | | | | [place] | | | | | | [address] | | | | | | | | +--------+ + + + + | 07/20/ | Office | Oncology | Wilton Jeff MD | | | 2019 | Visit | | [address] | | | | | | [place] | | | | | | [address] | | | | | | | | +--------+ + + + + | 07/20/ | Appointment | Infusion Therapy | Wilton Jeff MD | | | 2019 | | | [address] | | | | | | [place] | | | | | | [address] | | | | | | | | +--------+ + + + + | 08/17/ | Appointment | Infusion Therapy | Wilton Jeff MD | | | 2019 | | | [address] | | | | | | [place] | | | | | | [address] | | | | | | | | +--------+ + + + + | 08/17/ | Office | Oncology | Wilton Jeff MD | | | 2020 | Visit | | [address] | | | | | | [place] | | | | | | [address] | | | | | | | | +--------+ + + + + documented as of this encounter Visit Diagnoses Not on filedocumented in this encounter"
--- OUTSIDE RECORDS SUMMARY | ~2020-06-23 | XMS | Encounter Summary ---
Demographics + + + | Address | [address] | | | [place] [address] | + + + | Home Phone [...] Author + + + | Author | [facility] | | | and [place] | + + + | Organization | [facility] | | | and [...] Team Providers + +------+ + | Care Animal Control Licensing Worker Name | Role | Phone | + +------+ + | Myrna Mejia MD | PCP | | + +------+ + Reason for Referral Diagnostic/Screening (Emergency) +--------+--------+ + + + + | Status | Reason | Specialty | Diagnoses / | Referred By | Referred To | | | | | Procedures | Contact | Contact | +--------+--------+ + + + + | Closed | | Radiology | Diagnoses | Jake, | c O[address] Ct | | | | | Cavitating | Tali | [address] | | | | | mass in | MD Naheed | [address] | | | | | right upper | [address] | | | | | lung lobe | [address] | [place], [place] | | | | | Procedures | [address] | [address] | | | | | PET CT Skull | [place], [place] | Phone: | | | | | Base To Mid | [address] | [phone] | | | | | Thigh | Phone: | Fax: | | | | | | [phone] | [phone] | | | | | | Fax: | | | | | | | [phone] | | +--------+--------+ + + + + Reason for Visit Diagnostic/Screening (Emergency) +--------+--------+ + + + + | Status | Reason | Specialty | Diagnoses / | Referred By | Referred To | | | | | Procedures | Contact | Contact | +--------+--------+ + + + + | Closed | | Radiology | Diagnoses | Jake, | [facility] | | | | | Cavitating | Tali | [address] | | | | | mass in | MD Naheed | [address] | | | | | right upper | [address] | [address] | | | | | lung lobe | [address] | [place], [place] | | | | | Procedures | [address] | [address] | | | | | PET CT Skull | [place], [place] | Phone: | | | | | Base To Mid | [address] | [phone] | | | | | Thigh | Phone: | Fax: | | | | | | [phone] | [phone] | | | | | | Fax: | | | | | | | [phone] | | +--------+--------+ + + + + Encounter Details +--------+ + + + + | Date | Type | Department | Care Team | Description | +--------+ + + + + | 03/16/ | Hospital | [facility] | Jake, | Cavitating mass in | | 2020 | Encounter | [facility] | Tali Farfan, | right upper lung | | | | MEDICINE [address] | [address] | lobe | | | | [address] | [address] [facility], | | | | | [place], [place] | [place] [address] | | | | | [address] | [phone] | | | | | [phone] | | | +--------+ + + + [...] + + +---------+ + + | | | | 0 | 03/04/20 | | | amoxicillin-clavulan | | | | 20 | 0 | | ate (AUGMENTIN) | | | | | | | 875-125 mg per | | | | | | | tablet | | | | | | + + + +---------+ + + | EQ NICOTINE 14 | APPLY 1 PATCH | | 0 | 02/22/20 | | | MG/24HR | TOPICALLY ONCE DAILY | | | 20 | 0 | [...] [place] | | | | | | [address] | | | | | | | | +--------+ + + + + | 06/29/ | Office | Oncology | Wilton Jeff MD | | | 2019 | Visit | | [address] | | | | | | [place] | | | | | | [address] | | | | | | | | | | | | Marilou Mcmullen, | | | | | | [address] | | | | | | [address] | | | | | | [place] [address] | | | | | | [phone] | | | | | | | | +--------+ + + + + | 06/29/ | Appointment | Infusion Therapy | Wilton Jeff MD | | | 2019 | | | [address] | | | | | | [place] | | | | | | [address] | | | | | | | | +--------+ + + + + | 07/14/ | Office | Otolaryngology | She Huang | | | 2019 | Visit | | DO Sophia Canela | | | | | | [address] | | | | | | [place] [address] | | | | | | [phone] | | | | | | | | +--------+ + + + + | 07/20/ | Appointment | Infusion Therapy | Wilton Jeff MD | | | 2019 | | | [address] | | | | | | [place] | | | | | | [address] | | | | | | | | +--------+ + + + + | 07/20/ | Office | Oncology | Wilton Jeff MD | | | 2019 | Visit | | [address] | | | | | | [place] | | | | | | [address] | | | | | | | | +--------+ + + + + | 07/20/ | Appointment | Infusion Therapy | Wilton Jeff MD | | | 2019 | | | [address] | | | | | | [place] | | | | | | [address] | | | | | | | | +--------+ + + + + | 08/17/ | Appointment | Infusion Therapy | Wilton Jeff MD | | | 2020 | | | [address] | | | | | | [place] | | | | | | [address] | | | | | | | | +--------+ + + + + | 08/17/ | Office | Oncology | Wilton Jeff MD | | | 2019 | Visit | | [address] | | | | | | [place] | | | | | | [address] | | | | | | | | +--------+ + + + + documented as of this encounter Procedures + +--------+ + + + | Procedure Name | Priori | Date/Time | Associated Diagnosis | Comments | | | ty | | | | + +--------+ + + + | PET CT SKULL BASE TO | STAT | 03/16/2020 | Cavitating mass in | Results for this | | MID THIGH | | 11:29 AM | right upper lung | procedure are in the | | | | PDT | lobe | results section. | + +--------+ + + + documented in this encounter Results PET CT Skull Base To Mid Thigh (03/16/2020 11:29 AM PDT) + + | Specimen | + + | | + + + + + | Impressions | Performed At | + + + | Summary of Target Lesions: 1. Large centrally necrotic necrotic | [facility] | | mass in the medial aspect of the right lung along the hilum measuring | | | 6.0 x 5.7 cm (SUV 30.1). 2. Conglomerate of right supraclavicular | | | lymph nodes which are centrally necrotic measure 2.3 x 3.1 cm (SUV | | | 20.2). 3. Conglomerate of left supraclavicular lymph nodes measuring | | | 1.9 x 2.2 cm these are also centrally necrotic (SUV 26.5). 4. Left | | | hilar lymphadenopathy measuring 2.2 x 2.5 cm (SUV 26.4). 5. | | | Conglomerate of anterior mediastinal lymphadenopathy measuring 3.3 x | | | 5.1 cm (SUV 27.9). 6. Subdiaphragmatic lymph node which is partially | | | necrotic measuring 2.3 x 2.4 cm (SUV 23.4). Other PET/CT | | | Findings: 1. Atelectasis of the right middle lobe likely secondary to | | | the large hilar mass in the right lung. 2. Small polyp in the right | | | maxillary sinus. Comments: Extensive lymphadenopathy. The | | | large right hilar mass may represent additional lymphadenopathy. | | | The larger lymph nodes as well as the right central lung mass show | | | areas of central necrosis. Given patient's age and findings this | | | likely represents lymphoma. Final Report Signed by: | | | Ananth Gilliam, [place] Sign Date/Time: 03/16/2020 12:17 PM | | + + + + + + | Narrative | Performed At | + + + | EXAM DESCRIPTION PET/CT REGISTRY SKULL TO MID THIGH CLINICAL | [facility] | | INFORMATION: Large cavitary lung mass in a young man, with | | | mediastinal adenopathy, concerning for malignancy. Pls note SUV, and | | | also signs of mets. Initial PET Scan COMPARISON: None | | | PROCEDURE: The patient was evaluated with a dedicated PET/CT | | | scanner. Upon arrival, the patient's fasting fingerstick blood | | | glucose level was 90 mg/dL. 14.9 mCi of 18-FDG was injected IV at | | | 0928 hours, and 74 minutes post-injection CT attenuation-correction | | | images and then subsequent PET images (attenuation-corrected and | | | emission-only images) were obtained from base of skull to thigh. PET, | | | noncontrast-attenuation CT, and fused PET/CT images were then | | | reformatted and reviewed in the axial, sagittal, coronal and 3-D | | | maximum intensity projection planes. FINDINGS: HEAD: Brain: The | | | distribution of FDG activity in the visualized brain is physiologic. | | | Paranasal Sinuses: An 8 mm soft tissue density is noted in the left | | | maxillary sinus may represent a small polyp no increased activity is | | | noted in this region. NECK: Neck: FDG avid supraclavicular lymph | | | nodes are noted bilaterally this is a conglomerate of lymph nodes the | | | largest on the right is centrally necrotic measures 2.3 x 3.1 cm | | | (image 66, SUV 20.2). The largest on the left also appears to be | | | slightly centrally necrotic measures 1.9 x 2.2 cm (image 64, SUV | | | 26.5). Thyroid: Physiologic distribution of FDG activity in the | | | thyroid gland. No abnormal focal or diffuse increased activity. | | | CHEST: Lungs, Pleura and Airways: In the medial right upper lobe | | | there is a large FDG avid mass along the hilum with areas of central | | | necrosis this measures 6.0 x 5.7 cm (image 92, SUV 30.1). The right | | | middle lobe is atelectatic likely secondary to compression of the | | | bronchus from this large central mass.. Mediastinum: A small | | | pericardial effusion is noted. The heart is normal in size great | | | vessels are normal in caliber. Lymph Nodes: Extensive conglomerate | | | lymphadenopathy is noted throughout the mediastinum bilateral hilar | | | region and both axilla. Index nodes are as below: 1. Superior left | | | hilar lymph node measuring 2.2 x 2.5 cm (image 93, SUV 26.4). 2. | | | Conglomerate anterior mediastinal lymphadenopathy measuring 3 point 3 | | | x 5.1 cm (image 101, SUV 27.9). 3. Two FDG avid pericardial nodes | | | measuring 1.5 x 1.8 cm (image 135, SUV 16.4). 4. A lateral | | | pericardial node adjacent to the anterior left 6th rib measures 0.5 x | | | 0.7 cm (image 149, SUV 15.4) 5. A subdiaphragmatic lymph node which | | | is partially necrotic measuring 2.3 x 2.4 cm (image 160, SUV 23.4). | | | ABDOMEN: Liver and Biliary: No biliary abnormality. No abnormal | | | metabolic activity in the liver. Pancreas, Spleen and Adrenals: No | | | abnormal metabolic activity in the pancreas, spleen,or adrenal | | | glands. Kidneys: No hydronephrosis or calculus. ABDOMEN AND | | | PELVIS: Bowel: No small bowel or colonic dilatation. Physiologic | | | metabolic activity present in bowel loops. Vessels: No aneurysm. | | | Lymph Nodes: The subdiaphragmatic lymph node described in the chest | | | section is the only lymph node below the diaphragm this pathologically | | | enlarged. Peritoneum and Retroperitoneum: No intraperitoneal free | | | air, ascites or peritoneal mass. No significant retroperitoneal | | | abnormality. PELVIS: Genitourinary: No hydroureter. No ureteral | | | or bladder calculus. Body Wall: No masses, hernias, or hemorrhage. | | | Bones: No acute fracture or vertebral end plate destruction. No lytic | | | or blastic lesion. | | + + + + + | Procedure Note | + + | Stan, [id number] - 03/16/2020 12:20 PM PDT EXAM DESCRIPTION | | PET/CT REGISTRY SKULL TO MID THIGH | | | | CLINICAL INFORMATION: | | Large cavitary lung mass in a young man, with mediastinal adenopathy, | | concerning for malignancy. Pls note SUV, and also signs of mets. | | Initial PET Scan | | | | | | | | | | COMPARISON: | | None | | | | PROCEDURE: | | The patient was evaluated with a dedicated PET/CT scanner. Upon | | arrival, the patient's fasting fingerstick blood glucose level was 90 | | mg/dL. 14.9 mCi of 18-FDG was injected IV at 0928 hours, and 74 | | minutes post-injection CT attenuation-correction images and then | | subsequent PET images (attenuation-corrected and emission-only images) | | were obtained from base of skull to thigh. PET, noncontrast-attenuation | | CT, and fused PET/CT images were then reformatted and reviewed in the | | axial, sagittal, coronal and 3-D maximum intensity projection planes. | | | | FINDINGS: | | HEAD: | | Brain: The distribution of FDG activity in the visualized brain is | | physiologic. | | Paranasal Sinuses: An 8 mm soft tissue density is noted in the left | | maxillary sinus may represent a small polyp no increased activity is | | noted in this region. | | | | NECK: | | Neck: FDG avid supraclavicular lymph nodes are noted bilaterally this | | is a conglomerate of lymph nodes the largest on the right is centrally | | necrotic measures 2.3 x 3.1 cm (image 66, SUV 20.2). The largest on | | the left also appears to be slightly centrally necrotic measures 1.9 x | | 2.2 cm (image 64, SUV 26.5). | | Thyroid: Physiologic distribution of FDG activity in the thyroid gland. | | No abnormal focal or diffuse increased activity. | | | | CHEST: | | Lungs, Pleura and Airways: In the medial right upper lobe there is a | | large FDG avid mass along the hilum with areas of central necrosis this | | measures 6.0 x 5.7 cm (image 92, SUV 30.1). The right middle lobe is | | atelectatic likely secondary to compression of the bronchus from this | | large central mass.. | | Mediastinum: A small pericardial effusion is noted. The heart is | | normal in size great vessels are normal in caliber. | | Lymph Nodes: Extensive conglomerate lymphadenopathy is noted throughout | | the mediastinum bilateral hilar region and both axilla. Index nodes | | are as below: | | 1. Superior left hilar lymph node measuring 2.2 x 2.5 cm (image 93, SUV | | 26.4). | | 2. Conglomerate anterior mediastinal lymphadenopathy measuring 3 point | | 3 x 5.1 cm (image 101, SUV 27.9). | | 3. Two FDG avid pericardial nodes measuring 1.5 x 1.8 cm (image 135, | | SUV 16.4). | | 4. A lateral pericardial node adjacent to the anterior left 6th rib | | measures 0.5 x 0.7 cm (image 149, SUV 15.4) | | 5. A subdiaphragmatic lymph node which is partially necrotic measuring | | 2.3 x 2.4 cm (image 160, SUV 23.4). | | | | | | ABDOMEN: | | Liver and Biliary: No biliary abnormality. No abnormal metabolic | | activity in the liver. | | Pancreas, Spleen and Adrenals: No abnormal metabolic activity in the | | pancreas, spleen,or adrenal glands. | | Kidneys: No hydronephrosis or calculus. | | | | ABDOMEN AND PELVIS: | | Bowel: No small bowel or colonic dilatation. Physiologic metabolic | | activity present in bowel loops. | | Vessels: No aneurysm. | | Lymph Nodes: The subdiaphragmatic lymph node described in the chest | | section is the only lymph node below the diaphragm this pathologically | | enlarged. | | Peritoneum and Retroperitoneum: No intraperitoneal free air, ascites or | | peritoneal mass. No significant retroperitoneal abnormality. | | | | PELVIS: | | Genitourinary: No hydroureter. No ureteral or bladder calculus. | | Body Wall: No masses, hernias, or hemorrhage. | | Bones: No acute fracture or vertebral end plate destruction. No lytic | | or blastic lesion. | | | | IMPRESSION: | | Summary of Target Lesions: | | 1. Large centrally necrotic necrotic mass in the medial aspect of the | | right lung along the hilum measuring 6.0 x 5.7 cm (SUV 30.1). | | 2. Conglomerate of right supraclavicular lymph nodes which are | | centrally necrotic measure 2.3 x 3.1 cm (SUV 20.2). | | 3. Conglomerate of left supraclavicular lymph nodes measuring 1.9 x 2.2 | | cm these are also centrally necrotic (SUV 26.5). | | 4. Left hilar lymphadenopathy measuring 2.2 x 2.5 cm (SUV 26.4). | | 5. Conglomerate of anterior mediastinal lymphadenopathy measuring 3.3 x | | 5.1 cm (SUV 27.9). | | 6. Subdiaphragmatic lymph node which is partially necrotic measuring | | 2.3 x 2.4 cm (SUV 23.4). | | | | | | Other PET/CT Findings: | | 1. Atelectasis of the right middle lobe likely secondary to the large | | hilar mass in the right lung. | | 2. Small polyp in the right maxillary sinus. | | | | | | Comments: | | Extensive lymphadenopathy. The large right hilar mass may represent | | additional lymphadenopathy. The larger lymph nodes as well as the | | right central lung mass show areas of central necrosis. Given | | patient's age and findings this likely represents lymphoma. | | | | | | | | | | Final Report Signed by: Ananth Gilliam, [place] | | Sign Date/Time: 03/16/2020 12:17 PM | + + + +---------+ + + | Performing | Address | City/State/Zipcode | Phone Number | | Organization | | | | + +---------+ + + | [facility] | | | | + +---------+ + + documented in this encounter Visit Diagnoses + + | Diagnosis | + + | Cavitating mass in right upper lung lobe Other diseases of lung, not elsewhere | | classified | + + documented in this encounter Administered Medications + +--------+ + +------+------+ | Medication Order | MAR | Action | Dose | Rate | Site | | | Action | Date | | | | + +--------+ + +------+------+ | fluorine-18 FDG injection 14 | Given | 03/16/20 | 14 | | | | millicurie 14 millicurie, | | 20 12:00 | millicur | | | | Intravenous, ONCE, 03/16/20 at | | PM PDT | ies | | | | 1200, For 1 dose | | | | | | + +--------+ + +------+------+ +---+---+ | | | +---+---+ documented in this encounter"
--- OUTSIDE RECORDS SUMMARY | ~2020-06-23 | XMS | Encounter Summary ---
Demographics + + + | Address | [address] | | | [place] [address] | + + + | Home Phone | | + + + | Preferred Language | Unknown | + + + | Marital Status | Single | + + + | Judaism Affiliation | Unknown | + + + | Race | White | + + + | Ethnic Group | Not or | + + + Author + + + | Author | [facility] | | | and [place] | + + + | Organization | [facility] | | [...] Team Providers + +------+ + | Care Warehouse Team Member Name | Role | Phone | + +------+ + | Myrna Mejia MD | PCP | | + +------+ + Reason for Visit +--------+--------+ + | Reason | Onset | Comments | | | Date | | +--------+--------+ + | Other | 05/05/ | Tegan | | | 2020 | | +--------+--------+ + Encounter Details +--------+ + + + + | Date | Type | Department | Care Team | Description | +--------+ + + + + | 05/05/ | Telephone | [facility] | Wilton Jeff MD | Other (Tegan ) | | 2019 | | HEMATOLOGY AND | [address] | | | | | ONCOLOGY [address] [place] | [address] | [address] | | | | | [place] | | | | | | [address] | | | | | | [phone] | | | +--------+ + + + [...] Miscellaneous Notes Telephone Encounter - Bruce Leonardo Medical Assistant - 05/05/2020 10:56 AM PDTI spoke to Ernestine, receptionist telephone operator for Dr. Mejia @ [facility] who confirmed that they did receive Ude nyca orders yesterday, and that they were faxed off for scheduling this morning. Ernestine then said patient would have to speak to [facility] Day Surgery Department to schedule Udenyca injections. I called patient and gave him contact information of Day Surgery as provided by Ernestine of [facility] and instructed him to call them to set up injections. Patient verbal ized agreement and said he would call me if he experiences any issues or confusion schedulin g Udenyca injections. Zina NATION elephone Encounter - Bruce Leonardo Medical Assistant - 10:56 AM PDT----- Message from KOLE Do sent at 05/05/2020 10:09 AM PDT -- --- Regarding: RE: Udenyca injection Hi Palbal, I apologize, I used Neulasta interchangeably with Udenyca. He can get Udenyca as ordered. Just wanted to make sure it is scheduled for tomorrow malick melendez instead of today given chemo finished late. Thanks! Mayte ----- Message ----- From: Zina Nation Sent: 05/05/2020 8:57 AM PDT To: KOLE Do Subject: RE: Udenyca injection Mayte, Do you want patient to get Neulasta or Udenyca? Brenna sent off Udenyca orders, so if you ar e wanting this switched to Neulasta, you would have to update orders so that I can start thi s process over again. Thank you, BRUCE LEONARDO, Dovetailer ----- Message ----- From: Brenna Davis RN Sent: 2020 5:05 PM PDT To: KOLE Do, # Subject: RE: Udenyca injection I spoke with I[place]ona. She mentioned that the Udenyca should be scheduled by the medical assjerry mckeon when patient is not getting treatment in clinic. It looks like it was previously sent to ? ----- Message ----- From: KOLE Do Sent: 2020 4:21 PM PDT To: Brenna Davis RN, # Subject: RE: Udenyca injection If it does not work out for this Neulasta, that is ok, we can start it with the next cycle. His injection will have to be rescheduled to Mon as his cytoxan is still running. Infusion schedulers, I am attaching you to please change appointment. Thanks! ----- Message ----- From: Brenna Davis RN Sent: 2020 4:07 PM PDT To: KOLE Do Subject: RE: Udenyca injection Dr Mejia's office received the fax, it is sitting on Dr Mejia's desk waiting to be signed. He will work on signing it when he is done seeing patient's today. Not sure when it will be faxed to [facility] and our phone's turn off at 5 pm. ----- Message ----- From: KOLE Do Sent: 2020 3:44 PM PDT To: Brenna Davis RN Subject: RE: Udenyca injection Thanks! Will they set up the appt. With the hospital? ----- Message ----- From: Brenna Davis RN Sent: 2020 3:22 PM PDT To: KOLE Do Subject: RE: Udenyca injection Ok I faxed the order to Dr Mejia's office ----- Message ----- From: KOLE Do Sent: 2020 2:45 PM PDT To: Brenna Davis RN Subject: RE: Udenyca injection Hi Brenna, I had to phone a friend on this one :) If we can get his PCP to sign the order that would be great. Thanks! Mayte ----- Message ----- From: Brenna Davis RN Sent: 2020 1:26 PM PDT To: KOLE Do Subject: Udenyca injection Hi Mayte, I spoke with same day surgery at [facility] in [place]. They said they had to have a provider who has hospital privileges there sign the GCSF injec tion order. They do have Neulasta, not sure they have Udenyca- which is ordered. I don't think any of our providers have hospital privileges there. I am concerned with having patient's PCP sign the order, not sure if there will be logistic al problems and possible insurance problems. What are your thoughts? thanks ----- Message ----- From: Zoë Morrissey Sent: 2020 10:21 AM PDT To: Brenna Davis RN, # Ladies, Did you guys send this> ----- Message ----- From: KOLE Do Sent: 2020 9:08 AM PDT To: Brittany Oswald, Dovetailer, # Hi Preet, I am not certain who to send this request to so please forward to appropriate person. Patient is scheduled in clinic tomorrow for Neulasta. Is there any way we can change this to [place] where he lives so he doesn't have to drive? Thank you! Mayte docum ented in this encounter Plan of Treatment +--------+ [...] [place] | | | | | | [address] | | | | | | | | +--------+ + + + + | 06/29/ | Office | Oncology | Wilton Jeff MD | | | 2019 | Visit | | [address] | | | | | | [place] | | | | | | [address] | | | | | | | | | | | | Marilou Mcmullen, | | | | | | NUCLEAR TECHNOLOGIST [address] | | | | | | [address] | | | | | | [place] [address] | | | | | | [phone] | | | | | | | | +--------+ + + + + | 06/29/ | Appointment | Infusion Therapy | Wilton Jeff MD | | | 2019 | | | [address] | | | | | | [place] | | | | | | [address] | | | | | | | | +--------+ + + + + | 07/14/ | Office | Otolaryngology | She Huang | | | 2019 | Visit | | DO Sophia Canela | | | | | | [place] [address] | | | | | | [place] [address] | | | | | | [phone] | | | | | | | | +--------+ + + + + | 07/20/ | Appointment | Infusion Therapy | Wilton Jeff MD | | | 2019 | | | [address] | | | | | | [place] | | | | | | [address] | | | | | | | | +--------+ + + + + | 07/20/ | Office | Oncology | Wilton Jeff MD | | | 2019 | Visit | | [address] | | | | | | [place] | | | | | | [address] | | | | | | | | +--------+ + + + + | 07/20/ | Appointment | Infusion Therapy | Wilton Jeff MD | | | 2019 | | | [address] | | | | | | [place] | | | | | | [address] | | | | | | | | +--------+ + + + + | 08/17/ | Appointment | Infusion Therapy | Wilton Jeff MD | | | 2019 | | | [address] | | | | | | [place] | | | | | | [address] | | | | | | | | +--------+ + + + + | 08/17/ | Office | Oncology | Wilton Jeff MD | | | 2020 | Visit | | [address] | | | | | | [place] | | | | | | [address] | | | | | | | | +--------+ + + + + documented as of this encounter Visit Diagnoses Not on filedocumented in this encounter"
--- OUTSIDE RECORDS SUMMARY | ~2020-06-23 | XMS | Encounter Summary ---
Demographics + + + | Address | [address] | | | [place] [address] | + + + | Home Phone | | + + + | Preferred Language | Unknown | + + + | Marital Status | Single | + + + | Mormon Affiliation | Unknown | + + + [...] Team Providers + +------+ + | Care Assistant Manager Bilingual Name | Role | Phone | + +------+ + | Myrna Mejia MD | PCP | | + +------+ + Reason for Visit + + + | Reason | Comments | + + + | Screening For | | | Communicable Disease | | + + + Encounter Details +--------+ + + + + | Date | Type | Department | Care Team | Description | +--------+ + + + + | 03/19/ | Clinical | [facility] | | Exposure to | | 2019 | Support | SARAI KARON QUINTER[facility] | | SARS-associated | | | | [address] [place] | | coronavirus (Primary | | | | [address] [place] | | Dx) | | | | [address] | | | | | | [phone] | | | +--------+ + + + [...] + + + + | Pulse | 103 | 03/19/2020 3:17 PM | | | | | PDT | | + + + + + | Temperature | 36 C (96.8 F) | 03/19/2020 3:17 PM | | | | | PDT | | + + + + + | Respiratory Rate | - | - | | + + + + + | Oxygen Saturation | 100% | 03/19/2020 3:17 PM | | | | | PDT | | + + + + + | Inhaled Oxygen | - | - | | | Concentration | | | | + + + + + | Weight | - | - | | + + + + + | Height | - | - | | + + + + + | Body Mass Index | - | - | | + + + + + documented in this encounter Progress Notes Shahriar Sy Medical Assistant - 03/19/2020 3:15 PM PDTPatient presents to the clini c today for a COVID-19 clearance test for surgery. Patient collected their own specimen whil e being observed and instructed by clinic staff member with both verbal and written instruct ions. Patient was also given a ID NOW Test Fact Sheet. Patient was given results via telepho ne. Results given in person are given with a result specific discharge sheet. Negative Patients: Advised to self-quarantine until surgery. Postive Patients: Advised to contact their Surgeon's office for further instructions.Electr onically signed by Zina Clemons at 03/19/2020 3:22 PM PDTdocumented in this encounter Plan of [...] [place] | | | | | | [id number] | | | | | | | | +--------+ + + + + | 06/29/ | Office | Oncology | Wilton Jeff MD | | | 2019 | Visit | | [address] | | | | | | [place] | | | | | | [address] | | | | | | | | | | | | Marilou Mcmullen, | | | | | | PRODUCTION SUPPORT CONSULTANT [address] | | | | | | [place] [address] | | | | | | [phone] | | | | | | | | +--------+ + + + + | 06/29/ | Appointment | Infusion Therapy | Wilton Jeff MD | | | 2019 | | | [address] | | | | | | [place] | | | | | | [address] | | | | | | | | +--------+ + + + + | 07/14/ | Office | Otolaryngology | She Huang | | | 2019 | Visit | | DO Sophia Canela | | | | | | [address] | | | | | | [place] [address] | | | | | | [phone] | | | | | | | | +--------+ + + + + | 07/20/ | Appointment | Infusion Therapy | Wilton Jeff MD | | | 2019 | | | [address] | | | | | | [place] | | | | | | [address] | | | | | | | | +--------+ + + + + | 07/20/ | Office | Oncology | Wilton Jeff MD | | | 2019 | Visit | | [address] | | | | | | [place] | | | | | | [address] | | | | | | | | +--------+ + + + + | 07/20/ | Appointment | Infusion Therapy | Wilton Jeff MD | | | 2019 | | | [address] | | | | | | [place] | | | | | | [address] | | | | | | | | +--------+ + + + + | 08/17/ | Appointment | Infusion Therapy | Wilton Jeff MD | | | 2020 | | | [address] | | | | | | [place] | | | | | | [address] | | | | | | | | +--------+ + + + + | 08/17/ | Office | Oncology | Wilton Jeff MD | | | 2019 | Visit | | [address] | | | | | | [place] | | | | | | [address] | | | | | | | | +--------+ + + + + documented as of this encounter Procedures + +--------+ + + + | Procedure Name | Priori | Date/Time | Associated Diagnosis | Comments | | | ty | | | | + +--------+ + + + | POC CORONAVIRUS | Routin | 03/19/2020 | Exposure to | Results for this | | (COVID-19) NAAT | e | 3:16 PM | SARS-associated | procedure are in the | | | | PDT | coronavirus | results section. | + +--------+ + + + documented in this encounter Results POC Coronavirus (COVID-19) NAAT (03/19/2020 3:16 PM PDT) + + + + + + | Component | Value | Ref Range | Performed | Pathologist | | | | | At | Signature | + + + + + + | POC SOURCE | [facility]ares | | | | + + + + + + | SARS | Negative | Negative | | | | coronavirus | | | | | | 2 RNA | | | | | | (POC) | | | | | + + + + + + | Internal QC | Acceptable | Acceptable | | | + + + + + + + + | Specimen | + + | Tissue | + + + + + | Narrative | Performed At | + + + | SARS-CoV-2, RNA (COVID-19) EUA Negative results, using the | | | [employer] ID NOW Platform, should be treated as presumptive and, if | | | inconsistent with clinical signs and symptoms or necessary for patient | | | management, should be tested with an alternative molecular assay. | | | Please contact the laboratory for assistance as needed. Negative | | | results do not preclude COVID-19 infection and should not be used as | | | the sole basis for patient management decisions. Negative results | | | should be considered in the context of a patient's recent exposures, | | | history, presence of clinical signs and symptoms consistent with | | | COVID-19. This assay has been cleared for use under an FDA | | | Emergency Use Authorization. This test is used for clinical purposes. | | | It should not be regarded as investigational or for research. This | | | laboratory is certified under the Clinical Laboratory Improvement | | | Amendments (CLIA) as qualified to perform high complexity testing. | | | This test has been validated in accordance with the FDA's Guidance | | | Document "Policy for Diagnostics Testing in Laboratories Certified to | | | Perform High Complexity Testing under CLIA prior to Emergency Use | | | Authorization for Coronavirus Disease-2019 during the Public Health | | | Emergency" issued on November 02, 2019. FDA independent review of | | | this validation is pending. This test is only authorized for the | | | duration of time the declaration that circumstances exist justifying | | | the authorization of the emergency use of in vitro diagnostic tests | | | for detection of SARS-CoV-2 virus and/or diagnosis of COVID-19 | | | infection under section 564(b)(1) of the Act, 21 U.S.C. | | | 360bbb-3(b)(1), unless the authorization is terminated or revoked | | | sooner. | | + + + documented in this encounter Visit Diagnoses + + | Diagnosis | + + | Exposure to SARS-associated coronavirus - Primary | + + documented in this encounter Additional Health Concerns + + + + + | Infection | Onset Date | Last Indicated | Resolved Time | + + + + + | Rule out COVID-19 | 03/19/2020 | 03/19/2020 | 03/19/2020 3:22 PM | | | | | PDT | + + + + + documented as of this encounter
--- OUTSIDE RECORDS SUMMARY | ~2020-06-23 | XMS | Encounter Summary ---
Demographics + + + | Address | [address] | | | [place] [address] | + + + | Home Phone | | + + + | Preferred Language | Unknown | + + + | Marital Status | Single | + + + | Restorationism Affiliation | Unknown | + + + [...] Team Providers + +------+ + | Care Quality Assurance Representative Name | Role | Phone | + +------+ + | Myrna Mejia MD | PCP | | + +------+ + Reason for Visit + +--------+ + | Reason | Onset | Comments | | | Date | | + +--------+ + | Medication Question | 04/14/ | dukes mouth wash | | | 2020 | | + +--------+ + Encounter Details +--------+ + + + + | Date | Type | Department | Care Team | Description | +--------+ + + + + | 04/14/ | Telephone | [facility] | Olivia Pérez | Medication Question | | 2019 | | [address] | [facility] | ([facility]) | | | | [place] | | | | | | [address] | | | | | | [phone] | | | +--------+ + + + [...] this encounter Miscellaneous Notes Telephone Encounter - Olivia Pérez RN - 04/14/2020 10:50 AM PDTCalled and left Jaret n a message to let him know the only area pharmacy that is able to fill the dukes mouth wash is [facility]. Asked if he would like me to fax this RX to them or if he had a different phar giovany in [place] that does compounding mouth washes. Waiting call back.Electronically hayden d by Olivia Pérez RN at 04/14/2020 10:52 AM PDTdocumented in this encounter Plan of [...] [place] | | | | | | [address] | | | | | | | | +--------+ + + + + | 06/29/ | Office | Oncology | Wilton Jeff MD | | | 2019 | Visit | | [address] | | | | | | [place] | | | | | | [address] | | | | | | | | | | | | Marilou Mcmullen, | | | | | | KOLE [address] | | | | | | [address] | | | | | | [place] [address] | | | | | | [phone] | | | | | | | | +--------+ + + + + | 06/29/ | Appointment | Infusion Therapy | Wilton Jeff MD | | | 2019 | | | [address] | | | | | | [place] | | | | | | [address] | | | | | | | | +--------+ + + + + | 07/14/ | Office | Otolaryngology | She Huang | | | 2019 | Visit | | DO Sophia Canela | | | | | | [address] | | | | | | [place] [address] | | | | | | [phone] | | | | | | | | +--------+ + + + + | 07/20/ | Appointment | Infusion Therapy | Wilton Jeff MD | | | 2019 | | | [address] | | | | | | [place] | | | | | | [address] | | | | | | | | +--------+ + + + + | 07/20/ | Office | Oncology | Wilton Jeff MD | | | 2019 | Visit | | [address] | | | | | | [place] | | | | | | [address] | | | | | | | | +--------+ + + + + | 07/20/ | Appointment | Infusion Therapy | Wilton Jeff MD | | | 2019 | | | [address] | | | | | | [place] | | | | | | [address] | | | | | | | | +--------+ + + + + | 08/17/ | Appointment | Infusion Therapy | Wilton Jeff MD | | | 2019 | | | [address] | | | | | | [place] | | | | | | [address] | | | | | | | | +--------+ + + + + | 08/17/ | Office | Oncology | Wilton Jeff MD | | | 2019 | Visit | | [address] | | | | | | [place] | | | | | | [address] | | | | | | | | +--------+ + + + + documented as of this encounter Visit Diagnoses Not on filedocumented in this encounter"
--- OUTSIDE RECORDS SUMMARY | ~2020-06-23 | XMS | Encounter Summary ---
Demographics + + + | Address | [address] | | | [place] [address] | + + + | Home Phone | | + + + | Preferred Language | Unknown | + + + | Marital Status | Single | + + + | Restoration Affiliation | Unknown | + + + | Race | White | + + + | Ethnic Group | Not or | + + + Author + + + | Author | [facility] | | | and [place] | + + + | Organization | [facility] | | [...] Team Providers + +------+ + | Care Clerk Of Court Name | Role | Phone | + +------+ + | Myrna Mejia MD | PCP | | + +------+ + Encounter Details +--------+ + + + + | Date | Type | Department | Care Team | Description | +--------+ + + + + | 04/06/ | Orders Only | [facility] | Karen Schaefer, | 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 | | | | ONCOLOGY INFUSIONS | | lymph nodes of | | | | [address] | | multiple regions | | | | [place] | | (HCC) (Primary Dx) | | | | [address] | | | | | | [phone] | | | +--------+ + + + [...] [place] | | | | | | [address] | | | | | | | | +--------+ + + + + | 06/29/ | Office | Oncology | Wilton Jeff MD | | | 2019 | Visit | | [address] | | | | | | [place] | | | | | | [address] | | | | | | | | | | | | Marilou Mcmullen, | | | | | | 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 [address] | | | | | | [address] | | | | | | [place] [address] | | | | | | [phone] | | | | | | | | +--------+ + + + + | 06/29/ | Appointment | Infusion Therapy | Wilton Jeff MD | | | 2019 | | | [address] | | | | | | [place] | | | | | | [address] | | | | | | | | +--------+ + + + + | 07/14/ | Office | Otolaryngology | She Huang | | | 2019 | Visit | | DO Sophia Canela | | | | | | [address] | | | | | | [place] [address] | | | | | | [phone] | | | | | | | | +--------+ + + + + | 07/20/ | Appointment | Infusion Therapy | Wilton Jeff MD | | | 2019 | | | [address] | | | | | | [place] | | | | | | [address] | | | | | | | | +--------+ + + + + | 07/20/ | Office | Oncology | Wilton Jeff MD | | | 2019 | Visit | | [address] | | | | | | [place] | | | | | | [address] | | | | | | | | +--------+ + + + + | 07/20/ | Appointment | Infusion Therapy | Wilton Jeff MD | | | 2019 | | | [address] | | | | | | [place] | | | | | | [address] | | | | | | | | +--------+ + + + + | 08/17/ | Appointment | Infusion Therapy | Wilton Jeff MD | | | 2019 | | | [address] | | | | | | [place] | | | | | | [address] | | | | | | | | +--------+ + + + + | 08/17/ | Office | Oncology | Wilton Jeff MD | | | 2019 | Visit | | [address] | | | | | | [place] | | | | | | [address] | | | | | | | | +--------+ + + + + + +------+--------+ + + | Name | Type | Priori | Associated Diagnoses | Order Schedule | | | | ty | | | + +------+--------+ + + | CBC with | Lab | STAT | Mediastinal large | 30 Occurrences | | Differential | | | B-cell lymphoma of | starting 04/06/2020 | | | | | lymph nodes of | until 04/06/2021, 4 | | | | | multiple regions | completed | | | | | (HCC) | | + +------+--------+ + + | Comprehensive | Lab | STAT | Mediastinal large | 30 Occurrences | | Metabolic Panel | | | B-cell lymphoma of | starting 04/06/2020 | | | | | lymph nodes of | until 04/06/2021, 4 | | | | | multiple regions | completed | | | | | (HCC) | | + +------+--------+ + + documented as of this encounter Results Comprehensive Metabolic Panel (06/08/2020 [...] | | | | | Performed at [facility], [address] | | | | | [address] | | | | | | [address], [place] | | | | | | [address] | | | | + + + + + + + + | Specimen | + + | Blood | + + + + + + + | Performing | Address | City/State/Zipcode | Phone Number | | Organization | | | | + + + + + | REFERENCE LAB | [address] [place] [address] | [place], [place] | [phone] | | [facility] | [address] | [address] | | | LABORATORY | | | | + + + + + | REFERENCE LAB | [address] [place] [address] | [place], [place] | | | [facility] | [address] | [address] | | | LABORATORY | | | [...] [facility] | | | | Performed at [facility], [address] | | LABORATORY | | | | [address] | | | | | | [place] | | | | | | [address] | | | | | | | [...] [address] | [place] | [phone] | | [facility] | Bl[address] | [address] | | | LABORATORY | | | | + + + + + | REFERENCE LAB | [address] | [place] | | | [facility] | Blvd[address] | [address] | | | LABORATORY | | | | + + + + + Comprehensive Metabolic Panel (05/18/2020 8:43 AM PDT) + + + + + + | Component | Value | Ref Range | Performed | Pathologist | | | | | At | Signature | + + + + + + | Na | 136 | 135 - 145 | REFERENCE | | | | | mmol/L | LAB | | | | | | [facility] | | | | | | LABORATORY | | + + + + + + | K | 4.3 | 3.5 - 4.9 | REFERENCE | | | | | mmol/L | LAB | | | | | | [facility] | | | | | | LABORATORY | | + + + + + + | Cl | 104 | 98 - 107 mmol/L | REFERENCE | | | | | | LAB | | | | | | [facility] | | | | | | LABORATORY | | + + + + + + | CO2 | 26 | 22 - 29 mmol/L | REFERENCE | | | | | | LAB | | | | | | [facility] | | | | | | LABORATORY | | + + + + + + | Anion Gap | 10 | 5 - 20 mmol/L | REFERENCE | | | | | | LAB | | | | | | [facility] | | | | | | LABORATORY | | + + + + + + | Glucose | 93 | 74 - 99 mg/dL | REFERENCE [...] + + + + | Creatinine | 0.84 | 0.7 - 1.2 mg/dL | REFERENCE | | | | | | LAB | | | | | | [facility] | | | | | | LABORATORY | | + + + + + + | BUN/Creatin | 19 | | REFERENCE | | | ine Ratio | | | LAB | | | | | | [facility] | | | | | | LABORATORY | | + + + + + + | Calcium | 9.4 | 8.6 - 10.2 | REFERENCE | | | | | mg/dL | LAB | | | | | | [facility] | | | | | | LABORATORY | | + + + + + + | Protein, | 6.6 | 6.5 - 8.5 g/dL | REFERENCE | | | Total | | | LAB | | | | | | [facility] | | | | | | LABORATORY | | + + + + + + | Albumin | 4.4 | 3.3 - 5 g/dL | REFERENCE | | | | | | LAB | | | | | | [facility] | | | | | | LABORATORY | | + + + + + + | Globulin | 2.2 | 1.3 - 4.9 g/dL | REFERENCE | | | | | | LAB | | | | | | [facility] | | | | | | LABORATORY | | + + + + + + | A/G Ratio | 2.0 | 1.0 - 2.4 | REFERENCE | [...] + + + | ALK PHOS | 87 | 40 - 125 U/L | REFERENCE | | | | | | LAB | | | | | | [facility] | | | | | | LABORATORY | | + + + + + + | AST | 16 | 5 - 40 U/L | REFERENCE | | | | | | LAB | | | | | | [facility] | | | | | | LABORATORY | | + + + + + + | ALT | 17 | 5 - 41 U/L | REFERENCE [...] | | | | | | [address], [place] | | | | | | [address] | | | | + + + + + + + + | Specimen | + + | Blood | + + + + + + + | Performing | Address | City/State/Zipcode | Phone Number | | Organization | | | | + + + + + | REFERENCE LAB | [address] | [place] | [phone] | | [facility] | [address] | [address] | | | LABORATORY | | | | + + + + + | REFERENCE LAB | [address] | [place] | | | [facility] | Blvd[address] | [address] | | | LABORATORY | | | | + + + + + CBC with Differential (05/18/2020 8:43 AM PDT) + + + + + + | Component | Value | Ref Range | Performed | Pathologist | | | | | At | Signature | + + + + + + | WBC | 17.24 (H)Comment: | 3.80 - 11.00 | REFERENCE | | | | Testing performed at | K/uL | LAB | | | | [facility];[address] | | [facility] | | | | Blvd;[place] [address] | | LABORATORY | | + + + + + + | Red Blood | 3.86 (L)Comment: Testing | 4.20 - 5.70 | REFERENCE | | | Cells | performed at [facility];[address] | M/uL | LAB | | | | [address] | | [facility] | | | | Blvd;[place] [address] | | LABORATORY | | + + + + + + | Hemoglobin | 11.2 (L)Comment: Testing | 13.2 - 17.0 | REFERENCE | | | | performed at [facility];[address] | g/dL | LAB | | | | [address] | | [facility] | | | | Blvd;[place] [address] | | LABORATORY | | + + + + + + | Hematocrit | 35.0 (L)Comment: Testing | 39.0 - 50.0 % | REFERENCE | | | | performed at [facility];[address] | | LAB | | | | [address] | | [facility] | | | | Blvd;[place] [address] | | LABORATORY | | + + + + + + | MCV | 90.7Comment: Testing | 80.0 - 100.0 fl | REFERENCE | | | | performed at [facility];[address] | | LAB | | | | [address] | | [facility] | | | | Blvd;[place] [address] | | LABORATORY | | + + + + + + | MCH | 29.0Comment: Testing | 27.0 - 34.0 pg | REFERENCE | | | | performed at [facility];[address] | | LAB | | | | [address] | | [facility] | | | | Blvd;[place] [address] | | LABORATORY | | + + + + + + | MCHC | 32.0Comment: Testing | 32.0 - 35.5 | REFERENCE | | | | performed at [facility];[address] | g/dL | LAB | | | | [address] | | [facility] | | | | Blvd;[place] [address] | | LABORATORY | | + + + + + + | RDW-SD | 61.4 (H)Comment: Testing | 37 - 53 fl | REFERENCE | | | | performed at [facility];[address] | | LAB | | | | [address] | | [facility] | | | | Blvd;[place] [address] | | LABORATORY | | + + + + + + | Platelet | 224Comment: Testing | 150 - 400 K/uL | REFERENCE | | | Count | performed at [facility];[address] | | LAB | | | | [address] | | [facility] | | | | Blvd;[place] [address] | | LABORATORY | | + + + + + + | MPV | 9.9Comment: NO NORMAL | fl | REFERENCE | | | | RANGE ESTABLISHEDTesting | | LAB | | | | performed at [facility];[address] | | [facility] | | | | [address] | | LABORATORY | | | | Blvd;[place] [address] | | | | | | | | | | + + + + + + | Diff Type | MANUAL | | REFERENCE | | | | | | LAB | | | | | | [facility] | | | | | | LABORATORY | | + + + + + + | % Segmented | 69 | % | REFERENCE | | | | | | LAB | | | Neutrophils | | | [facility] | | | | | | LABORATORY | | + + + + + + | % Bands | 12 | % | REFERENCE | | | | | | LAB | | | | | | [facility] | | | | | | LABORATORY | | + + + + + + | % | 6 | % | REFERENCE | | | [...] + + + | % Monocytes | 3 | % | REFERENCE | | | | | | LAB | | | | | | [facility] | | | | | | LABORATORY | | + + + + + + | Eosinophils | 3 | % | REFERENCE | | | % | | | LAB | | | | | | [facility] | | | | | | LABORATORY | | + + + + + + | Neutrophils | 11.89 (H) | 1.90 - 7.40 | REFERENCE | | | , Absolute | | K/uL | LAB | | | | | | [facility] | | | | | | LABORATORY | | + + + + + + | Absolute | 2.07 (H) | 0.00 - 0.20 | REFERENCE | | | Band | | K/uL | LAB | | | Neutrophils | | | [facility] | | | | | | LABORATORY | | + + + + + + | Absolute | 1.03 (H) | 0.00 K/uL | REFERENCE | | | Metamyelocy | | | LAB | | | tracy | | | [facility] | | | | | | LABORATORY | | + + + + + + | Absolute | 1.21 | 1.00 - 3.90 | REFERENCE | | | Lymphocytes | | K/uL | LAB | | | | | | [facility] | | | | | | LABORATORY | | + + + + + + | Absolute | 0.52 | 0.00 - 0.80 | REFERENCE | | | Monocytes | | K/uL | LAB | | | | | | [facility] | | | | | | LABORATORY | | + + + + + + | Eosinophils | 0.52 (H) | 0.00 - 0.50 | REFERENCE | | | , Absolute | | K/uL | LAB | | | | | | [facility] | | | | | | LABORATORY | | + + + + + + | RBC | RBC AND PLT MORPHOLOGY | | REFERENCE | | | Morphology | APPEAR NORMALComment: | | LAB | | | | Testing Performed at | | [facility] | | | | [facility], [address] [facility] | | LABORATORY | | | | [address], | | | | | | [place] [address] | | | | + + + + + + + + | Specimen | + + | Blood | + + + + + + + | Performing | Address | City/State/Zipcode | Phone Number | | Organization | | | | + + + + + | REFERENCE LAB | [address] [place] [address] | [place] | [phone] | | [facility] | Bl[address] | [address] | | | LABORATORY | | | | + + + + + | REFERENCE LAB | [address] [place] [address] | [place] | | | [facility] | Blvd[address] | [address] | | | LABORATORY | | | | + + + + + Comprehensive Metabolic Panel (04/27/2020 8:32 AM PDT) + + + + + + | Component | Value | Ref Range | Performed | Pathologist | | | | | At | Signature | + + + + + + | Na | 140 | 135 - 145 | REFERENCE | | | | | mmol/L | LAB | | | | | | [facility] | | | | | | LABORATORY | | + + + + + + | K | 4.5 | 3.5 - 4.9 | REFERENCE | | | | | mmol/L | LAB | | | | | | [facility] | | | | | | LABORATORY | | + + + + + + | Cl | 105 | 98 - 107 mmol/L | REFERENCE | | | | | | LAB | | | | | | [facility] | | | | | | LABORATORY | | + + + + + + | CO2 | 27 | 22 - 29 mmol/L | REFERENCE | | | | | | LAB | | | | | | [facility] | | | | | | LABORATORY | | + + + + + + | Anion Gap | 13 | 5 - 20 mmol/L | REFERENCE | | | | | | LAB | | | | | | [facility] | | | | | | LABORATORY | | + + + + + + | Glucose | 90 | 74 - 99 mg/dL | REFERENCE | | | | | | LAB | | | | | | [facility] | | | | | | LABORATORY | | + + + + + + | BUN | 21 (H) | 6 - 20 mg/dL | REFERENCE | | | | | | LAB | | | | | | [facility] | | | | | | LABORATORY | | + + + + + + | Creatinine | 0.98 | 0.7 - 1.2 mg/dL | REFERENCE | | | | | | LAB | | | | | | [facility] | | | | | | LABORATORY | | + + + + + + | BUN/Creatin | 21 | | REFERENCE | | | ine [...] + + + + | Protein, | 6.8 | 6.5 - 8.5 g/dL | REFERENCE | | | Total | | | LAB | | | | | | [facility] | | | | | | LABORATORY | | + + + + + + | Albumin | 4.3 | 3.3 - 5 g/dL | REFERENCE | | | | | | LAB | | | | | | [facility] | | | | | | LABORATORY | | + + + + + + | Globulin | 2.5 | 1.3 - 4.9 g/dL | REFERENCE | | | | | | LAB | | | | | | [facility] | | | | | | LABORATORY | | + + + + + + | A/G Ratio | 1.7 | 1.0 - 2.4 | REFERENCE | | | | | | LAB | | | | | | [facility] | | | | | | LABORATORY | | + + + + + + | BILIRUBIN, | 0.2 | 0.2 - 1 mg/dL | REFERENCE | | | TOTAL | | | LAB | | | | | | [facility] | | | | | | LABORATORY | | + + + + + + | ALK PHOS | 95 | 40 - 125 U/L | REFERENCE | | | | | | LAB | | | | | | [facility] | | | | | | LABORATORY | | + + + + + + | AST | 23 | 5 - 40 U/L | REFERENCE | | | | | | LAB | | | | | | [facility] | | | | | | LABORATORY | | + + + + + + | ALT | 56 (H) | 5 - 41 U/L | REFERENCE [...] | | | | | | MDRD IDIA traceable | | | | | | equation.Testing | | | | | | Performed at [facility], [address] | | | | | | [address] | | | | | | [address], [place] | | | | | | [address] | | | | + + + + + + + + | Specimen | + + | Blood | + + + + + + + | Performing | Address | City/State/Zipcode | Phone Number | | Organization | | | | + + + + + | REFERENCE LAB | [address] [place] [address] | [place], [place] | [phone] | | [facility] | Bl[address] | [address] | | | LABORATORY | | | | + + + + + | REFERENCE LAB | [address] [facility] | [place], [place] | | | [facility] | [address] | [address] | | | LABORATORY | | | | + + + + + CBC with Differential (04/27/2020 8:32 AM PDT) + + + + + + | Component | Value | Ref Range | Performed | Pathologist | | | | | At | Signature | + + + + + + | WBC | 13.97 (H) | 3.80 - 11.00 | REFERENCE | | | | | K/uL | LAB | | | | | | [facility] | | | | | | LABORATORY | | + + + + + + | Red Blood | 3.71 (L) | 4.20 - 5.70 | REFERENCE | | | Cells | | M/uL | LAB | | | | | | [facility] | | | | | | LABORATORY | | + + + + + + | Hemoglobin | 10.7 (L) | 13.2 - 17.0 | REFERENCE | | | | | g/dL | LAB | | | | | | [facility] | | | | | | LABORATORY | | + + + + + + | Hematocrit | 32.1 (L) | 39.0 - 50.0 % | REFERENCE | | | | | | LAB | | | | | | [facility] | | | | | | LABORATORY | | + + + + + + | MCV | 86.5 | 80.0 - 100.0 fl | REFERENCE | | | | | | LAB | | | | | | [facility] | | | | | | LABORATORY | | + + + + + + | MCH | 28.8 | 27.0 - 34.0 pg | REFERENCE [...] + + + + | RDW-SD | 49.9 | 37 - 53 fl | REFERENCE | | | | | | LAB | | | | | | [facility] | | | | | | LABORATORY | | + + + + + + | Platelet | 216 | 150 - 400 K/uL | REFERENCE [...] + + + + + | % nRBC | 1 (H) | 0 /100WBC | REFERENCE | | | | | | LAB | | | | | | [facility] | | | | | | LABORATORY | | + + + + + + | % Segmented | 56 | % | REFERENCE | | | [...] + + + + | % | 6 | % | REFERENCE | | | Metamyelocy | | | LAB | | | tracy | | | [facility] | | | | | | LABORATORY | | + + + + + + | % | 8 | % | REFERENCE | | | Lymphocytes | | | LAB | | | | | | [facility] | | | | | | LABORATORY | | + + + + + + | % Monocytes | 7 | % | REFERENCE | | | | | | LAB | | | | | | [facility] | | | | | | LABORATORY | | + + + + + + | Eosinophils | 3 | % | REFERENCE | | | % | | | LAB | | | | | | [facility] | | | | | | LABORATORY | | + + + + + + | Neutrophils | 7.82 (H) | 1.90 - 7.40 | REFERENCE | | | , Absolute | | K/uL | LAB | | | | | | [facility] | | | | | | LABORATORY | | + + + + + + | Absolute | 2.79 (H) | 0.00 - 0.20 | REFERENCE | | | Band | | K/uL | LAB | | | Neutrophils | | | [facility] | | | | | | LABORATORY | | + + + + + + | Absolute | 0.84 (H) | 0.00 K/uL | REFERENCE | | | Metamyelocy | | | LAB | | | tracy | | | [facility] | | | | | | LABORATORY | | + + + + + + | Absolute | 1.12 | 1.00 - 3.90 | REFERENCE | | | Lymphocytes | | K/uL | LAB | | | | | | [facility] | | | | | | LABORATORY | | + + + + + + | Absolute | 0.98 (H) | 0.00 - 0.80 | REFERENCE | | | Monocytes | | K/uL | LAB | | | | | | [facility] | | | | | | LABORATORY | | + + + + + + | Eosinophils | 0.42 | 0.00 - 0.50 | REFERENCE | | | , Absolute | | K/uL | LAB | | | | | | [facility] | | | | | | LABORATORY | | + + + + + + | RBC | RBC AND PLT MORPHOLOGY | | REFERENCE | | | Morphology | APPEAR NORMALComment: | | LAB | | | | Testing Performed at | | [facility] | | | | [facility], [address] | | LABORATORY | | | | Ave, [address], | | | | | | [place] [address] | | | | + + + + + + + + | Specimen | + + | Blood | + + + + + + + | Performing | Address | City/State/Zipcode | Phone Number | | Organization | | | | + + + + + | REFERENCE LAB | [address] [place] [address] | [place], [place] | [phone] | | [facility] | [address] | [address] | | | LABORATORY | | | | + + + + + | REFERENCE LAB | [address] [place] [address] | [place], [place] | | | [facility] | [address] | [address] | | | LABORATORY | | | | + + + + + Comprehensive Metabolic Panel (04/17/2020 8:53 AM PDT) + + + + + [...] + + + + | K | 3.9 | 3.5 - 4.9 | REFERENCE | | | | | mmol/L | LAB | | | | | | [facility] | | | | | | LABORATORY | | + + + + + + | Cl | 98 | 98 - 107 mmol/L | REFERENCE | | | | | | LAB | | | | | | [facility] | | | | | | LABORATORY | | + + + + + + | CO2 | 31 (H) | 22 - 29 mmol/L | REFERENCE | | | | | | LAB | | | | | | [facility] | | | | | | LABORATORY | | + + + + + + | Anion Gap | 13 | 5 - 20 mmol/L | REFERENCE | | | | | | LAB | | | | | | [facility] | | | | | | LABORATORY | | + + + + + + | Glucose | 84 | 74 - 99 mg/dL | REFERENCE | | | | | | LAB | | | | | | [facility] | | | | | | LABORATORY | | + + + + + + | BUN | 20 | 6 - 20 mg/dL | REFERENCE | | | | | | LAB | | | | | | [facility] | | | | | | LABORATORY | | + + + + + + | Creatinine | 0.81 | 0.7 - 1.2 mg/dL | REFERENCE | | | | | | LAB | | | | | | [facility] | | | | | | LABORATORY | | + + + + + + | BUN/Creatin | 25 | | REFERENCE | | | ine Ratio | | | LAB | | | | | | [facility] | | | | | | LABORATORY | | + + + + + + | Calcium | 9.2 | 8.6 - 10.2 | REFERENCE | | | | | mg/dL | LAB | | | | | | [facility] | | | | | | LABORATORY | | + + + + + + | Protein, | 6.6 | 6.5 - 8.5 g/dL | REFERENCE | | | Total | | | LAB | | | | | | [facility] | | | | | | LABORATORY | | + + + + + + | Albumin | 4.1 | 3.3 - 5 g/dL | REFERENCE | | | | | | LAB | | | | | | [facility] | | | | | | LABORATORY | | + + + + + + | Globulin | 2.5 | 1.3 - 4.9 g/dL | REFERENCE | | | | | | LAB | | | | | | [facility] | | | | | | LABORATORY | | + + + + + + | A/G Ratio | 1.6 | 1.0 - 2.4 | REFERENCE | | | | | | LAB | | | | | | [facility] | | | | | | LABORATORY | | + + + + + + | BILIRUBIN, | 0.2 | 0.2 - 1 mg/dL | REFERENCE | | | TOTAL | | | LAB | | | | | | [facility] | | | | | | LABORATORY | | + + + + + + | ALK PHOS | 111 | 40 - 125 U/L | REFERENCE | | | | | | LAB | | | | | | [facility] | | | | | | LABORATORY | | + + + + + + | AST | 36 | 5 - 40 U/L | REFERENCE | | | | | | LAB | | | | | | [facility] | | | | | | LABORATORY | | + + + + + + | ALT | 62 (H) | 5 - 41 U/L | REFERENCE [...] | | | | | | [address] | | | | | | [address], [place] | | | | | | [address] | | | | + + + + + + + + | Specimen | + + | Blood | + + + + + + + | Performing | Address | City/State/Zipcode | Phone Number | | Organization | | | | + + + + + | REFERENCE LAB | [address] [facility] | [place] | [phone] | | [facility] | [address] | [address] | | | LABORATORY | | | | + + + + + | REFERENCE LAB | [address] | [place] | | | [facility] | [address] | [address] | | | LABORATORY | | | | + + + + + CBC with Differential (04/17/2020 8:53 AM PDT) + + + + + + | Component | Value | Ref Range | Performed | Pathologist | | | | | At | Signature | + + + + + + | WBC | 20.89 (H) | 3.80 - 11.00 | REFERENCE | | | | | K/uL | LAB | | | | | | [facility] | | | | | | LABORATORY | | + + + + + + | Red Blood | 4.01 (L) | 4.20 - 5.70 | REFERENCE | | | Cells | | M/uL | LAB | | | | | | [facility] | | | | | | LABORATORY | | + + + + + + | Hemoglobin | 11.3 (L) | 13.2 - 17.0 | REFERENCE | | | | | g/dL | LAB | | | | | | [facility] | | | | | | LABORATORY | | + + + + + + | Hematocrit | 34.4 (L) | 39.0 - 50.0 % | [...] + + + + | MCH | 28.3 | 27.0 - 34.0 pg | REFERENCE | | | | | | LAB | | | | | | [facility] | | | | | | LABORATORY | | + + + + + + | MCHC | 32.9 | 32.0 - 35.5 | REFERENCE | | | | | g/dL | LAB | | | | | | [facility] | | | | | | LABORATORY | | + + + + + + | RDW-SD | 44.6 | 37 - 53 fl | REFERENCE | | | | | | LAB | | | | | | [facility] | | | | | | LABORATORY | | + + + + + + | Platelet | 400 | 150 - 400 K/uL | REFERENCE | | | Count | | | LAB | | | | | | [facility] | | | | | | LABORATORY | | + + + + + + | MPV | 7.0 | fl | REFERENCE | | | [...] + + + | % Segmented | 85 | % | REFERENCE | | | | | | LAB | | | Neutrophils | | | [facility] | | | | | | LABORATORY | | + + + + + + | % Bands | 13 | % | REFERENCE | | | | | | LAB | | | | | | [facility] | | | | | | LABORATORY | | + + + + + + | % | 1 | % | REFERENCE | | | Lymphocytes | | | LAB | | | | | | [facility] | | | | | | LABORATORY | | + + + + + + | % Monocytes | 1 | % | REFERENCE | | | | | | LAB | | | | | | [facility] | | | | | | LABORATORY | | + + + + + + | Neutrophils | 17.75 (H) | 1.90 - 7.40 | REFERENCE | | | , Absolute | | K/uL | LAB | | | | | | [facility] | | | | | | LABORATORY | | + + + + + + | Absolute | 2.72 (H) | 0.00 - 0.20 | REFERENCE | | | Band | | K/uL | LAB | | | Neutrophils | | | [facility] | | | | | | LABORATORY | | + + + + + + | Absolute | 0.21 (L) | 1.00 - 3.90 | REFERENCE | | | Lymphocytes | | K/uL | LAB | | | | | | [facility] | | | | | | LABORATORY | | + + + + + + | Absolute | 0.21 | 0.00 - 0.80 | REFERENCE | | | Monocytes | | K/uL | LAB | | | | | | [facility] | | | | | | LABORATORY | | + + + + + + | RBC | RBC AND PLT MORPHOLOGY | | REFERENCE | | | Morphology | APPEAR NORMALComment: | | LAB | | | | Testing Performed at | | [facility] | | | | L, [address] | | LABORATORY | | | | [address], | | | | | | [place] [address] | | | | + + + + + + + + | Specimen | + + | Blood | + + + + + + + | Performing | Address | City/State/Zipcode | Phone Number | | Organization | | | | + + + + + | REFERENCE LAB | [address] [facility] | [place], [place] | [phone] | | [facility] | [address] | [address] | | | LABORATORY | | | | + + + + + | REFERENCE LAB | [address] [facility] | [place], [place] | | | [facility] | [address] 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
--- OUTSIDE RECORDS SUMMARY | ~2020-06-23 | XMS | Encounter Summary ---
Demographics + + + | Address | [address] | | [place] [address] | + + + | Home Phone | | + + + | Preferred Language | Unknown | + + + | Marital Status | Single | + + + | Latter-Day Affiliation | Unknown | + + + | Race | White | + + + | Ethnic Group | Not or | + + + Author + + + | Author | [facility] | | | and [place] | + + + | Organization | [facility] | | | and [...] Team Providers + +------+ + | Care Pool Player Name | Role | Phone | + +------+ + | Myrna Mejia MD | PCP | | + +------+ + Reason for Visit Auth/Cert +--------+--------+ + + + + | Status | Reason | Specialty | Diagnoses / | Referred By | Referred To | | | | | Procedures | Contact | Contact | +--------+--------+ + + + + | | | | Diagnoses | | | | | | | Mediastinal | | | | | | | B cell | | | | | | | lymphoma | | | +--------+--------+ + + + + Encounter Details +--------+ + + + + | Date | Type | Department | Care Team | Description | +--------+ + + + + | 04/08/ | Hospital | [facility] | Addie Whiteside MD | Large B-cell | | 2020 - | Encounter | [facility] | [address] | lymphoma (HCC) | | | | CARE FLOOR [address] | [address] [place], [place] | (Primary Dx); | | 04/13/ | | [address] | [phone] | Admission for | | 2019 | | [place], [place] | | antineoplastic | | | | [address] | Deni John | chemotherapy; | | | | [phone] | MD [place] [address] | Mediastinal large | | | | | [address] [place], [place] | B-cell lymphoma of | | | | | [address] | lymph nodes of | | | | | | multiple regions | | | | | | (HCC); Other | | | | | | classical Hodgkin | | | | | | lymphoma of lymph | | | [...] + + + | Blood Pressure | 107/61 | 04/13/2020 11:57 AM | | | | | PDT | | + + + + + | Pulse | 76 | 04/13/2020 11:57 AM | | | | | PDT | | + + + + + | Temperature | 35.7 C (96.2 F) | 04/13/2020 11:57 AM | | | | | PDT | | + + + + + | Respiratory Rate | 21 | 04/13/2020 11:57 AM | | | | | PDT | | + + + + + | Oxygen Saturation | 98% | 04/13/2020 11:57 AM | | | | | PDT | | + + + + + | Inhaled Oxygen | - | - | | | Concentration | | | | + + + + + | Weight | 85 kg (187 lb 6.3 | 04/13/2020 7:56 AM | | | | oz) | PDT | | + + + + + | Height | 180.3 cm (5' 11") | 04/08/2020 8:00 PM | | | | | PDT | | + + + + + | Body Mass Index | 26.14 | 04/08/2020 8:00 PM | | | | | PDT | | + + + + + documented in this encounter Discharge Summaries Deni John MD - 04/13/2020 9:35 AM PDTFormatting of this note might be differe nt from the original. Service: Hospitalist Discharge Summary Date of Admission: 04/08/2020 Date of Discharge: 04/13/2020, 5 PM Discharge Provider: Deni John MD Treatment Team: Wilton Jeff MD Discharge Diagnoses: Principal Problem: Large B-cell lymphoma Resolved Problems: Admission for antineoplastic chemotherapy SIRS (systemic inflammatory response syndrome) Procedures: * No surgery found * Significant Diagnostic Studies: CBC, CMP BRIEF HISTORY OF PRESENTATION AND HOSPITAL COURSE: Asad Longo is a 29 y.o. 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 He follows with Dr. Shelley no from Oncology services and was admitted for first cycle of chemotherapy. He was started R ituxan April 06, 2020 as out patient, his initial labs like CBC and CMP were stable. Oncolo gy services on board and he was started Doxorubicin, Etoposide, Vincristine and Prednisone c ombination. He tolerated the combination chemotherapy, had mild nausea, minimal cough with s ome blood tinged sputum off and on which was treated conservatively. He developed mild mouth sores which were treated with Magic mouth wash and [place] mouth wash which provided symptoma tic relief. Subsequent labs showed mild elevation of WBCs up to 17 [address] was secondary to [address] eroid use but without any signs of sepsis or infection. This also improved injury resolved without interventions. He was cleared by Oncology services for discharge after completion o f first cycle of chemotherapy, they recommended to continue oral Acyclovir antiviral medicat ion for prophylaxis and Allopurinol for tumor lysis syndrome. He was feeling better did not have GI symptoms at this time, he is now discharged to home in a stable condition with magali mmendations to follow-up with Dr. Jeff in few days for his repeat labs and routine evaluat ion. No Known Allergies DISCHARGE EXAM Vital Signs: BP 107/61 | Pulse 76 | Temp 35.7 C (96.2 F) (Axillary) | Resp 21 | Ht 1.803 m (5' 1 1") | Wt 85 kg (187 lb 6.3 oz) | SpO2 98% | BMI 26.14 kg/m Physical Examination: General: Patient was seen awake alert, well developed and not in acute distress. HEENT: Atraumatic, normocephalic, no lacerations. Eyes: PERRLA, EOM intact bilaterally. No Icterus. Mouth: Moist tongue and mucous membranes. + Few mouth sores at the base of tongue. Neck: No JVD, NO Thyromegaly. Cardiovascular: RRR, S1, S2, no murmurs, no thrills. Respiratory: Clear to auscultation bilaterally, no rhonchi, no wheezes. Abdomen: Soft, Nontender to palpation, BS present in all quadrants, No organomegaly. Genitourinary: Not examined at this time. Extremities: No pedal edema, no gross deformity. No difficulty in walking. Skin: No rashes, lacerations, no erythema or jaundice. Lymph: No lymphadenopathy was noted. Neurological: No focal neurologic deficits, No CN deficits. Psychiatric: No psychosis, no hallucinations, no delusions. Reactive affect, Judgment is st able. DATA Recent Results (from the past 24 hour(s)) CBC with Differential Result Value Ref Range WBC 7.97 3.80 - 11.00 K/uL Red Blood Cells 3.85 (L) 4.20 - 5.70 M/uL Hemoglobin 11.0 (L) 13.2 - 17.0 g/dL Hematocrit 33.5 (L) 39.0 - 50.0 % MCV 87.0 80.0 - 100.0 fl MCH 28.6 27.0 - 34.0 pg MCHC 32.8 32.0 - 35.5 g/dL RDW-SD 42.0 37 - 53 fl Platelet Count 478 (H) 150 - 400 K/uL MPV 9.0 fl Diff Type AUTOMATED % nRBC 0.0 0 /100WBC % Neutrophils 80.80 % IMMATURE GRANULOCYTE 0.60 % % Lymphocytes 14.20 % Monocyte % 4.30 % Eosinophils % 0.10 % Basophils % 0.00 % Neutrophils, Absolute 6.44 1.90 - 7.40 K/uL IMMATURE GRANS AB 0.05 0.00 - 0.07 K/uL Absolute Lymphocytes 1.13 1.00 - 3.90 K/uL Absolute Monocytes 0.34 0.00 - 0.80 K/uL Eosinophils, Absolute 0.01 0.00 - 0.50 K/uL Basophils, Absolute 0.00 0.00 - 0.10 K/uL Comprehensive Metabolic Panel Result Value Ref Range Na 137 135 - 145 mmol/L K 3.5 3.5 - 4.9 mmol/L Cl 103 99 - 109 mmol/L CO2 29 23 - 32 mmol/L Anion Gap 9 5 - 20 mmol/L Glucose 87 65 - 99 mg/dL BUN 16 8 - 25 mg/dL Creatinine 0.70 0.70 - 1.30 mg/dL BUN/Creatinine Ratio 23 Calcium 9.0 8.5 - 10.5 mg/dL Protein, Total 5.6 (L) 6.3 - 8.2 g/dL Albumin 3.7 3.6 - 5.0 g/dL Globulin 1.9 1.3 - 4.9 g/dL A/G Ratio 1.9 1.0 - 2.4 BILIRUBIN, TOTAL 0.7 0.1 - 1.5 mg/dL ALK PHOS 64 35 - 115 U/L AST 23 10 - 45 U/L ALT 59 10 - 65 U/L Estimated GFR >60 >60 mL/min/1.73m2 PLAN Follow up with your primary care physician in one week for a routine evaluation. Follow up with Dr. Jeff from Oncology services in two to three weeks or as scheduled for routine evaluation. General Diet as tolerated. Take current list of medications including the newer ones as prescribed. Avoid use of alcohol and abstain from smoking. Disposition: Home Condition: Stable Code Status: Full Code No discharge procedures on file. Follow up: Myrna Heath MD [address] [facility] [place] [id number] Schedule an appointment as soon as possible for a visit in 2 weeks [facility] [address] [facility] [address] On 04/14/2020 White cell growth factor at 3:00. Wilton Jeff MD [address] [facility] [address] On 04/17/2020 Labs at 9:00. See Dr. Jeff at 9:45. Wilton Jeff MD [address] [place] [address] On 04/27/2020 Labs at 8:15. See Dr. Jeff at 9:00. Discharge Medications New Medications Details acyclovir 200 mg capsule Take 4 capsules by mouth 2 times daily. Indications: Herpes Zoster Prevention in Immunocom promised aka: ZOVIRAX aluminum & magnesium ozntkfueo-zghppupxqud-fkqjimitlpNAYPR-lidocaine Swish and spit 15 mLs every 4 hours as needed for Sore Throat. lyqufsqzoeiqigi-tbnnptkifyxwdw-ppvqvnnv suspension Swish and spit 10 mLs 4 times daily. aka: ANIL MOUTHWASH Changed Medications Details allopurinol 300 mg tablet Take 1 tablet by mouth Daily. What changed: how much to take how to take this when to take this additional instructions aka: ZYLOPRIM Start: April 14, 2020 predniSONE 50 mg tablet Take 2 tablets (total 100 mg) daily on days 1, 2, 3, 4, and 5 of each cycle of chemotherap y. What changed: Another medication with the same name was removed. Continue taking this medic ation, and follow the directions you see here. aka: DELTASONE Unchanged Medications Details benzonatate 100 mg capsule Take 100 mg by mouth 3 times daily as needed for Cough. aka: TESSALON lidocaine-prilocaine cream Apply generously to port site and cover with tegaderm or saran wrap 1 hour prior to chemo. . aka: EMLA NICOTINE TD Place onto the skin. ondansetron 4 mg disintegrating tablet Take 1 tablet by mouth every 6 hours as needed for Nausea. aka: ZOFRAN ODT prochlorperazine 10 mg tablet Take 1 tablet by mouth every 6 hours as needed (Nausea/Vomiting). sulfamethoxazole-trimethoprim 800-160 mg per tablet Take 1 tablet by mouth Three times a week. 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 Portions of this report have been prepared using Connect[employer] voice recognition software. The rep ort was reviewed for accuracy, however, sound-alike word errors, additions and/or deletions may occur. Please use the clinical context for clarification. If there is any question about this report, please contact me. Deni John MD 04/13/2020 docume nted in this encounter Discharge Instructions Instructions Sari Duran RN - . You may take ondansetron (Zofran) alternat ing with prochlorperzine (compazine) if you experience nausea. Zofran may cause headache or constipation. Compazine may make you sleepy. 2. Continue allopurinol until your appointment with Dr. Jeff. Drink plenty of fluids! 3. You must contact the clinic, call the provider concrete products machine operator and/or seek immediate medical ca re for fever greater than 100.4 degrees and/or signs of infection or uncontrolled symptoms. 4. White cell growth factor injection on Monday at 3:00 in the clinic. 5. Continue acyclovir twice daily to prevent viral infection. No need to take bactrim. 6. Follow up appointment in the clinic with labs scheduled to see how you have tolerated yo ur treatment. Please keep this appointment. What is Coronavirus? The Novel Coronavirus 2019 (COVID-19) is a new virus strain that is spread mainly from pers xw-fq-phqhps through respiratory droplets when an infected person [...] are not available, use an alcohol-based hand barrel raiser helper with at least 60 % alcohol covering [...] and need to call 911, notify the dissolver operator that you have or think you [...] COVID-19 symptoms, residents in nursing facilities or usp communities or home health, or those who [...] or preparing your food. ? Use hand barrel raiser helper if soap and water are not available. Use an alcohol-based hand saniti er with at least 60% alcohol, covering [...] with soap and water or in the spray rig operator/washer. ? Call ahead before visiting your doctor. [...] coronavirus and the community public health response, visi t your local public health website. CDC: COVID-19: https://www.cdc.gov/coronavirus/2019-ncov/index.html [place] Coronavirus Advisory: https://www.[facility].org/aicytmqf-ynm-gukljvsq/coron avirus-advisory Virtual Visits Available https://virtual.[place].org/ 7. If you have non-urgent questions about your care, treatment or symptoms and desire to sp eak with an oncology nurse, our Triage Nurse at [facility]cology can be r eached during normal business hours at [phone]. documented in this encounter Medications at Time [...] Sore | | | | | | j-ivlhklbpzeIQIOW-za | Throat. | | | | | [...] documented as of this encounter Progress Notes Rachna Nolan RN - 04/13/2020 1:45 PM PDTCare Management Final Discharge Plan Readmission Risk: Medium Discharge Plan Planned Disposition: home with family Planned Destination: PCP: Myrna Mejia MD Patient/Family Notified: yes Transportation will be provided by: family Transportation Date/Time: 04/13/20 Ride Contact: Name: Phone: Community Support Services Current Outpt/Agency/Support Groups: infusion therapy, outpatient (specify) Community Agency Name: [facility] Home Health Disciplines: [place] of Choice: Other Resources: Equipment Durable Medical Equipment Provider: Home Equipment at Discharge: Equipment Used at Home: none Pharmacy Pharmacy/Medication needs: ([facility]) Notes: RX for mouth wash to be filled by RX pharmacy and delivered to bedside prior to d/c today. Electronically signed: Rachna Nolan RN 04/13/2020 1:46 PM PDT RenataLisaKOLE - 04/13/2020 10:18 AM PDTFormatting of this note might be different from the [facility] Service: Hematology and Oncology Progress Note Hospital Day: LOS: 5 days Patient Summary: Mr. Asad Longo is a 29 year old male with no significant past medical history othe r than tobacco use (1/2-1 pack/day [id number]) who began experiencing cough, pleuritic chest pain, dyspnea on exertion and URI symptoms beginning October 2019. He was initially treat ed with antibiotics by his PCP with minimal improvement of symptoms. CT scan of the chest onFebruary revealed a large cavitary lesion with mediastinal and axillary lymphadeno nelson .The patient also experienced an unintentional 30 pound weight loss since September 2019. The patient was referred to Dr. Tali Joseph of pulmonary medicine. She recommended a PET scan that was completed on March 16, 2020 revealing an FDG avid right upper lobe pulmo nary mass measuring 6.0 x 5.7 cm with an SUV of 30.1. The right middle lobe appeared atele ctatic secondary to compression of the bronchus from the large central mass. There was ext ensive conglomerate lymphadenopathy noted throughout the mediastinum, bilateral hilar areas and bilateral axillary areas. For example, there was a superior left hilar lymph node priyanka uring 3.2 x 2.5 cm with an SUV of 26.4, conglomerate anterior mediastinal lymphadenopathy me asuring 3.3 x 5.1 cm with an SUV of 27.9, 2 FDG avid pericardial lymph nodes, a lateral omi cardial node and a subdiaphragmatic lymph node partially necrotic measuring 2.3 x 2.4 cm wit h an SUV of 23.4. There was conglomerate right supraclavicular lymph nodes, centrally necr otic measuring 2.3 x 3.1 cm with an SUV of 20.2, and a conglomerate left supraclavicular lym ph node measuring 1.9 x 2.2 cm with an SUV of 26.5. There was no adenopathy or visceral le sions within the abdomen and pelvis. On March 20, 2020 the patient underwent excisional biopsy of a right deep cervical lymph nod e. Pathology revealed large atypical B lymphocytes was consistent with diffuse large B-cell lymphoma, positive for CD20, CD23, BCL 6, CD79a, and PAX 5. Ki-67 was 60%. The morphologi c and immunohistochemical findings were in favor of a primary mediastinal large B-cell lymph geovanna. There was no evidence of MYC or MYC/IgH rearrangement (ie no double or triple hit lymp jorge alberto). The patient was referred to oncology and saw Dr. Jeff in consultation March 27, 2020 who r ecommended initiation of chemotherapy. Mediport was placed by Dr. Gilliam April 01, 2020. Bone marrow biopsy April 02, 2020 revealed a mild hypocellular marrow for age at 30 40% wi th progressive trilineage hematopoiesis but no evidence of marrow involvement by lymphoma. On April 06, 2020, the patient initiated treatment with rituximab 375 mg/m IV (given as d ay 0 of DA-R-EPOCH). He is now admitted to initiate the chemotherapy portion of DA-R-EPOCH a s follows: Rituximab 375 mg/m IV day -3 cycle 1; Etoposide 50 mg/m IV continuous infusio n days 1 4; Vincristine 0.4 mg/m IV continuous infusion days 1 4; Doxorubicin 10 mg/m IV continuous infusion days 1 4; Cyclophosphamide 750 mg/m IV day 5; Prednisone 60mg/m 2 (120mg per Dr. Jeff) PO days 1-5 on a 21 day cycle. SUBJECTIVE Events Overnight: The patient is doing well today. He had mild nausea responsive to antiem etics. No vomiting. His cough has improved. He is delighted that his supraclavicular lymp h nodes have disappeared. He had a normal bowel movement today. He has had mild mouth tend erness improved with miracle mouthwash. He is looking forward to discharge today. OBJECTIVE Scheduled Medications acyclovir 800 mg Oral BID allopurinol 300 mg Oral Daily mxdcjamapuOVOOI-xwqbgo-sxeeixofr mouthwash (ADS admixture) 15 mL Swish & Swallow 4x Da jacqueline cyclophosphamide (CYTOXAN) infusion 750 mg/m2 (Treatment Plan Recorded) Intravenous On ce DOXOrubicin with etoposide and vinCRIStine infusion 10 mg/m2/day (Treatment Plan Recor ded) Intravenous Q24H enoxaparin 40 mg Subcutaneous Q24H famotidine 20 mg Oral BID nicotine 1 patch Transdermal Daily palonosetron with dexamethasone IVPB 0.25 mg Intravenous Once predniSONE 120 mg Oral Daily sodium chloride 0.9% 500 mL Intravenous Once sodium chloride 0.9% 500 mL Intravenous Once Continuous Infusions sodium chloride 0.9% 120 mL/hr at 04/12/202047 PRN Medications acetaminophen, albuterol, albuterol, aygpbqbsilTCQDH-pbcpzo-nuuidtowq mouthwash (ADS admixt ure), benzonatate, ymgythmbkk-meheulzrucxvy-xfyefnjf, dextromethorphan-guaifenesin, diphenhy drAMINE, docusate sodium, EPINEPHrine, famotidine, heparin, HYDROcodone-acetaminophen, methy lPREDNISolone sodium succinate, metoclopramide, ondansetron, ondansetron, polyethylene glyco l, sodium chloride 0.9%, sodium chloride 0.9%, sodium chloride 0.9%, sodium chloride 0.9% Physical Exam Vital Signs: BP 104/56 | Pulse 66 | Temp 36.7 C (98 F) (Oral) | Resp 20 | Ht 1.803 m (5' 11") | Wt 85 kg (187 lb 6.3 oz) | SpO2 98% | BMI 26.14 kg/m General: Alert and oriented. In no acute distress. Affect appropriate. Skin: Warm, dry and intact without rashes or ulcers. HEENT: Conjunctivae are clear. Sclera anicteric. Oral mucosa is moist. Early aphthous ulce rs along the lower gumline. Lungs: Respiratory effort relaxed. No rales, rhonchi or wheezes. Heart: Regular rate and rhythm. No murmur, gallop or rubs Abdomen: Soft, nondistended, nontender. No masses are appreciated. No hepatosplenomegaly. A ctive bowel tones in all 4 quadrants. Extremities: No peripheral edema. Musculo: Bones and joints are unremarkable. Psychiatric: No signs of depression or anxiety. Maintains good eye contact, asks appropriat e questions, remains fully engaged. Lab Data Recent Labs Lab 04/13/20 0321 04/12/20 0436 04/11/20 0359 04/10/20 03404/09/20 0317 WBC 7.97 9.93 17.68* 14.32* 8.97 RBC 3.85* 4.05* 4.12* 3.91* 3.74* HGB 11.0* 11.3* 11.5* 11.3* 10.6* HCT 33.5* 35.2* 36.2* 34.4* 33.2* MCV 87.0 86.9 87.9 88.0 88.8 MCH 28.6 27.9 27.9 28.9 28.3 MCHC 32.8 32.1 31.8* 32.8 31.9* PLT 478* 519* 611* 522* 481* MPV 9.0 9.5 9.0 9.0 9.2 Recent Labs Lab 04/13/20 0321 04/12/20 0436 04/11/20 0359 04/10/20 03404/09/207 NA 137 137 139 139 138 K 3.5 3.9 4.1 4.3 4.1 CL 103 104 106 104 102 CO2 29 27 28 27 30 ANIONGAP 9 10 9 12 10 BUN 16 17 17 17 23 ALKPHOS 64 61 63 70 63 ALT 59 64 67* 23 16 AST 23 23 53* 21 14 EGFR >60 >60 >60 >60 >60 PHOS -- -- -- -- 4.7 MG -- -- -- -- 1.9 Medical Imaging Recent Results (from the past 360 hour(s)) IR Placement Port Narrative ULTRASOUND-GUIDED RIGHT IJ CHEST PORT PLACEMENT CLINICAL INFORMATION: Patient with lymphoma who requires long-term IV access for chemotherapy. COMPARISON: None. PROCEDURE: The risks, benefits and alternatives were discussed with the patient; consent was obtained and placed in the patient's chart. The risks included but were not limited to bleeding, pneumothorax, infection, jail vein occlusion, allergic reaction and . The patient was then brought to the procedure room and placed in the supine position where the right side of the neck and chest were sterilely prepped and draped in the usual fashion. Maximum sterile barrier techniques taken. After local anesthetic was administered, a small incision was made with an 11 blade. Using ultrasound guidance, a micropuncture needle was then utilized to access the right internal jugular vein. Using standard Seldinger technique, a 5 [place] micropuncture sheath was position over the wire into the SVC/RA junction under fluoroscopic guidance. A tunneled tract was anesthetized with lidocaine, as was a port pocket. A 15 blade was used to make a horizontal incision and the pocket was created with blunt dissection. The tunnel tract was then created with blunt dissection and the catheter was pulled through the tunnel. A 0.035 wire was then advanced into the IVC and a peel-away sheath was positioned over the wire into the SVC/RA junction under fluoroscopic guidance. The wire and dilator were removed. The catheter was delivered into the SVC/RA junction. The peel-away sheath was removed. The catheter was cut to length and attached to the port. The port was then placed into the pocket and flushed. The port pocket was then closed using 3-0 deep interrupted and 4-0 running subcuticular absorbable suture. The port was accessed and flushed and per ordering physician request. A single spot film was obtained over the chest. Conscious sedation was administered. The nurse administered 4 mg Versed and 100 mcg fentanyl during the examination and monitored blood pressure, heart rate, and pulse oximeter. Physician intraservice time of 30 minutes. Fluoro Time: 0.8 minutes. Radiation dose: 6 mGy FINDINGS: The ultrasound demonstrated a widely patent and compressible right internal jugular vein. A permanent sonographic image was obtained and stored. Intra procedural fluoroscopic imaging showed the tip of the catheter and the course of the catheter in good position. Impression Uncomplicated ultrasound-guided right IJ chest port placement, tip in SVC/RA junction ready for use. 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 He is admitted to initiate treatment with DA-R-EPOCH. Mediport has been placed. Echocardi ogram was performed March 30, 2020 revealing an ejection fraction of 57%. He received Rituxim ab in the outpatient setting 3 days ago and the cytotoxic portion of treatment beginning 2019. Encounter for chemotherapy The patient initiated treatment April 09 with dose adjusted R-EPOCH as follows: Rituximab 375 mg/m IV day 0 (Given April 06 cycle 1) Etoposide 50 mg/m IV continuous infusion days 1 4 Vincristine 0.4 mg/m IV continuous infusion days 1 4 Doxorubicin 10 mg/m IV continuous infusion days 1 4 Cyclophosphamide 750 mg/m IV day 5 Prednisone 60mg/m2 (120mg per Dr. Jeff) PO days 1-5 On a 21 day cycle The patient will receive GCSF following treatment. Today is cycle 1 day 5. He will complete cyclophosphamide this afternoon. Tumor lysis syndrome prophylaxis Given volume of disease, the patient will be at risk for tumor lysis syndrome. He is curre ntly on allopurinol will continue this. He will continue hydration. He has daily labs orde red. No laboratory evidence of tumor lysis. Anemia Hemoglobin 11.0 with hematocrit 33.5. No intervention required. Should the patient requir e blood transfusion to keep hemoglobin greater than 8.0, he does not require irradiated bloo d products. Infectious prophylaxis Acyclovir 800mg PO BID for viral prophylaxis No need for routine bactrim DS 1 for PJP prophylaxis Early aphthous ulcers May continue miracle mouthwash. I have ordered this to be continued upon discharge. The patient will complete chemotherapy this afternoon/evening and then may be discharged. Christy carrillo will require white cell growth factor in the clinic, which is scheduled, as well as blood work and follow up appointment. He should have weekly lab draws to monitor his ubaldo for nex t cycle dosing. Code Status: Full Code KOLE Goetz 04/13/2020 10:18 AM PDT [facility] Hematology & Oncology Portions of this chart may have been created with voice recognition software. Occasional wr mak-word or "sound-alike" substitutions may have occurred, even after review, due to the inh erent limitations of voice recognition software. Please read the chart carefully and recogni ze, using context, where these substitutions have occurred. Personal communication is reques akbar for any clarifications. Anna Shah RN - 04/12/2020 6:07 PM PDTEnd of shift chart review complete. No changes in acute ass essment. Vital signs stable. Pt medicated X2 for nausea. Alejandra Awad MD - 04/12/2020 9:35 AM PDTFormatting of thi s note might be different from the original. [facility] Service: Hematology and Oncology Progress Note Hospital Day: LOS: 4 days Treatment Team: Wilton Jeff MD SUBJECTIVE: No acute issue overnight. Afebrile. Complains mouth sore. The cough continues to improve. D enied any chest pain, worsening SOB, abdominal pain, n/v. Constipated. OBJECTIVE: Scheduled Medications acyclovir 800 mg Oral BID allopurinol 300 mg Oral Daily ujhzjlzkrsVDEMW-ffrdpx-dkfiekosj mouthwash (ADS admixture) 15 mL Swish & Swallow 4x Da jacqueline DOXOrubicin with etoposide and vinCRIStine infusion 10 mg/m2/day (Treatment Plan Recor ded) Intravenous Q24H DOXOrubicin with etoposide and vinCRIStine infusion 10 mg/m2/day (Treatment Plan Recor ded) Intravenous Q24H famotidine 20 mg Oral BID nicotine 1 patch Transdermal Daily predniSONE 120 mg Oral Daily Continuous Infusions sodium chloride 0.9% 120 mL/hr at 04/11/202042 PRN Medications acetaminophen, 650 mg, Q4H PRN albuterol, 2 puff, Once PRN albuterol, 2 puff, Q6H PRN benzonatate, 100 mg, TID PRN rgmkcztimv-ymlbahsvgygtf-cfrkxzbb, 1-2 tablet, Q4H PRN diphenhydrAMINE, 25 mg, Q15 Min PRN docusate sodium, 100 mg, BID PRN EPINEPHrine, 0.3 mg, Q5 Min PRN famotidine, 20 mg, Once PRN heparin, 5 mL, PRN HYDROcodone-acetaminophen, 1 tablet, Q6H PRN methylPREDNISolone sodium succinate, 125 mg, Once PRN metoclopramide, 10 mg, Q6H PRN ondansetron, 4 mg, Q6H PRN ondansetron, 4 mg, Q6H PRN polyethylene glycol, 17 g, Daily PRN sodium chloride 0.9%, 250 mL, PRN sodium chloride 0.9%, 500 mL, PRN sodium chloride 0.9%, 10 mL, PRN DATA Recent Labs Lab 04/12/20 0436 04/11/20 0359 04/10/20 0341 04/09/20 0317 04/06/20 0754 WBC 9.93 17.68* 14.32* 8.97 10.76 RBC 4.05* 4.12* 3.91* 3.74* 3.72* HGB 11.3* 11.5* 11.3* 10.6* 10.5* HCT 35.2* 36.2* 34.4* 33.2* 31.6* MCV 86.9 87.9 88.0 88.8 85.1 MCH 27.9 27.9 28.9 28.3 28.3 MCHC 32.1 31.8* 32.8 31.9* 33.2 PLT 519* 611* 522* 481* 540* MPV 9.5 9.0 9.0 9.2 7.2 Recent Labs Lab 04/12/20 0436 04/11/20 0359 04/10/20 03404/09/20 0317 04/06/20 0754 NA 137 139 139 138 133* K 3.9 4.1 4.3 4.1 3.7 CL 104 106 104 102 96* CO2 27 28 27 30 29 ANIONGAP 10 9 12 10 12 BUN 17 17 17 23 15 ALKPHOS 61 63 70 63 60 ALT 64 67* 23 16 15 AST 23 53* 21 14 15 EGFR >60 >60 >60 >60 >60 PHOS -- -- -- 4.7 3.5 MG -- -- -- 1.9 -- IMAGING No results found for this or any previous visit (from the past 72 hour(s)). EXAM: Patient Vitals for the past 24 hrs: BP Temp Temp src Pulse Resp SpO2 Weight 04/12/20 0735 112/66 36.6 C (97.9 F) Oral 65 16 100 % 85.5 kg (188 lb 7.9 oz) 04/12/20 0405 104/60 37.6 C (99.7 F) Oral 67 14 97 % 04/11/20 2333 99/51 36.4 C (97.5 F) Oral 66 16 97 % 04/11/20 1934 95/52 36.7 C (98 F) Oral 79 15 98 % 04/11/20 1537 108/51 36.6 C (97.9 F) Oral 76 16 96 % 04/11/20 1130 113/55 36.6 C (97.9 F) Oral 63 16 96 % Intake/Output Summary (Last 24 hours) at 04/12/2020 0935 Last data filed at 04/12/2020 0800 Gross per 24 hour Intake 4395 ml Output 4350 ml Net 45 ml General: Alert and oriented. No acute distress. HEENT: PERRLA.Sclera anicteric. +mouth sore without evidence of thrush. Neck: Supple. Lungs: Clear to auscultation B. Heart: Regular rate and rhythm. S1/S2. Abdomen: Soft, nondistended, nontender. No masses are appreciated. No hepatosplenomegaly.+B S. Lymphatics: There is no cervical, supraclavicular, axillary, or inguinal adenopathy. Neuro: Grossly intact. Extremities: No edema. PROBLEM LIST Principal Problem: Large B-cell lymphoma Active Problems: Admission for antineoplastic chemotherapy SIRS (systemic inflammatory response syndrome) ASSESSMENT & PLAN 29 yo gentleman with 1. Large B cell lymphoma, stage III, bulky mediastinum NILSA diagnosed in 03/2020. He is on C1 chemo with R-EPOCH, D3. He is tolerating the chemo well so far. His lab is good. Will yo nue. There is no sign of tumor lysis syndrome. Continue iv hydration and allopurinol. Continue p rophylactic acyclovir. 2. Continue other supportive care. Recommend DVT prophylaxis. 3. Mouth sore from chemo. Will start him on [place] magic mouth wash. Code Status: Full Code Alejandra Castle MD 04/12/20209:35 AM PDT Deni Jones MD - 04/12/2020 8:17 AM PDT Service: Hospitalist Daily Progress Note Asad Longo 29 y.o. 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 [facility] for first cycle of chemotherapy. He was started Rituxan [place] 2019 as out patient, his initial labs like CBC and CMP were stable. Oncology servic es on board and he was started Doxorubicin, Etoposide, Vincristine and Prednisone combinatio n. He tolerated the combination chemotherapy, had mild nausea, minimal cough with some bloo d tinged sputum and also reported mouth sores which were treated conservatively. Subsequent labs showed mild elevation of WBCs up to 17 which was secondary to steroid use without any signs of sepsis or infection. Events Overnight: Patient seen and examined. Overnight events noted. Patient was seen awake and alert. He rep orted feeling okay, had mild mouth sores and some dry cough without sputum. Eating well, den ied headaches, no nausea wihtout vomiting, abdominal pain or diarrhea at this time. Remaine d afebrile. Scheduled Medications acetaminophen, 650 mg, Oral, Q4H PRN acyclovir, 800 mg, Oral, BID albuterol, 2 puff, Inhalation, Once PRN albuterol, 2 puff, Inhalation, Q6H PRN allopurinol, 300 mg, Oral, Daily benzonatate, 100 mg, Oral, TID PRN rynzeeeolc-biqombrylkhzt-rqciawnc, 1-2 tablet, Oral, Q4H PRN diphenhydrAMINE, 25 mg, Intravenous, Q15 Min PRN docusate sodium, 100 mg, Oral, BID PRN DOXOrubicin with etoposide and vinCRIStine infusion, 10 mg/m2/day (Treatment Plan Recorded) , Intravenous, Q24H DOXOrubicin with etoposide and vinCRIStine infusion, 10 mg/m2/day (Treatment Plan Recorded) , Intravenous, Q24H EPINEPHrine, 0.3 mg, Intramuscular, Q5 Min PRN famotidine, 20 mg, Intravenous, Once PRN famotidine, 20 mg, Oral, BID heparin, 5 mL, Intracatheter, PRN HYDROcodone-acetaminophen, 1 tablet, Oral, Q6H PRN methylPREDNISolone sodium succinate, 125 mg, Intravenous, Once PRN metoclopramide, 10 mg, Intravenous, Q6H PRN nicotine, 1 patch, Transdermal, Daily ondansetron, 4 mg, Oral, Q6H PRN ondansetron, 4 mg, Intravenous, Q6H PRN polyethylene glycol, 17 g, Oral, Daily PRN predniSONE, 120 mg, Oral, Daily sodium chloride 0.9%, 250 mL, Intravenous, PRN sodium chloride 0.9%, 500 mL, Intravenous, PRN sodium chloride 0.9%, , Intravenous, Continuous sodium chloride 0.9%, 10 mL, Intracatheter, PRN Continuous Infusions . PRN Medications Current Facilty-Administered PRN Medications Ordered in [facility] Medication Dose Route Frequency Provider Last Rate Last Dose acetaminophen (TYLENOL) tablet 650 mg 650 mg Oral Q4H PRN Addie Whiteside MD 650 mg at 0 04/10/20 0806 albuterol 90 mcg/puff inhaler 2 puff 2 puff Inhalation Once PRN KOLE Becker albuterol 90 mcg/puff inhaler 2 puff 2 puff Inhalation Q6H PRN Addie Whiteside MD benzonatate (TESSALON) capsule 100 mg 100 mg Oral TID PRN Addie Whiteside MD 100 mg at 0 04/08/20 2030 sgfnmayhuk-qrvzqpeeviuma-jghflnro 50-325-40 mg per tablet 1-2 tablet 1-2 tablet Oral Q 4H PRN KOLE Becker 1 tablet at 04/10/202028 diphenhydrAMINE (BENADRYL) injection 25 mg 25 mg Intravenous Q15 Min PRN KOLE Baig docusate sodium (COLACE) capsule 100 mg 100 mg Oral BID PRN Addie Whiteside MD 100 mg at 04/11/20 0843 EPINEPHrine 1 mg/mL injection 0.3 mg 0.3 mg Intramuscular Q5 Min PRN KOLE Novoa famotidine (PEPCID) injection 20 mg 20 mg Intravenous Once PRN Vazquez Becker heparin 100 units/mL flush injection 500 Units 5 mL Intracatheter PRN KOLE Monterroso HYDROcodone-acetaminophen (NORCO) 5-325 mg per tablet 1 tablet 1 tablet Oral Q6H PRN Fausto Whiteside MD methylPREDNISolone sodium succinate (solu-MEDROL) 62.5 mg/mL injection 125 mg 125 mg I ntravenous Once PRN KOLE Becker metoclopramide (REGLAN) 5 mg/mL injection 10 mg 10 mg Intravenous Q6H PRN Carlos A Brennan MD 10 mg at 04/11/20 1757 ondansetron (ZOFRAN ODT) disintegrating tablet 4 mg 4 mg Oral Q6H PRN Addie Whiteside MD 4 mg at 04/10/20 1708 ondansetron (ZOFRAN) injection 4 mg 4 mg Intravenous Q6H PRN Addie Whiteside MD polyethylene glycol (MIRALAX) powder 17 g 17 g Oral Daily PRN Alejandra Castle MD 17 g at 04/11/20 1001 sodium chloride 0.9% (NS) bolus 250 mL 250 mL Intravenous PRN Lisa Esparza, [place] DOG [employer]IAL sodium chloride 0.9% (NS) infusion 500 mL 500 mL Intravenous PRN Lisa Esparza, TELEPHONE INFORMATION CLERK sodium chloride 0.9% flush 10 mL 10 mL Intracatheter PRN Lisa Esparza, TELEPHONE INFORMATION CLERK Allergy: No Known Allergies OBJECTIVE Vital Signs: Vitals: 04/12/20 0735 BP: 112/66 Pulse: 65 Resp: 16 Temp: 36.6 C (97.9 F) Intake/Output Summary (Last 24 hours) at 04/12/2020 0817 Last data filed at 04/12/2020 0800 Gross per 24 hour Intake 4395 ml Output 4350 ml Net 45 ml Examination: Constitutional: Patient is alert and oriented x 3. Appears well developed and not in acute distress. HEENT: Head: Normocephalic and Atraumatic. Nose: Nose normal. Mouth/Throat: Oropharynx is clear and moist. Eyes: No conjunctiva injection. EOM Intact. PERRLA. No scleral icterus. Neck: Neck supple. No JVD present. No tracheal deviation present. No thyromegaly Cardiovascular: Regular rate and rhythm, no murmur heard and no friction rub. Pulmonary/Chest: Mostly clear to auscultation, no wheezes, rales and crackles. Abdominal: Soft, BS present, no distension, no ascites. No rebound tenderness and no guardi ng. Musculoskeletal: Moves all limbs, No difficulty in walking and no joint tenderness. No ped al edema. Neurological: No Focal neurologic deficits, No CN deficits. Skin: Skin is warm and dry. No ecchymoses, or abrasions. Psychiatric: No Confusion, No agitation, Reactive affect and Judgement is stable. LABS: Recent Results (from the past 24 hour(s)) CBC with Differential Result Value Ref Range WBC 9.93 3.80 - 11.00 K/uL Red Blood Cells 4.05 (L) 4.20 - 5.70 M/uL Hemoglobin 11.3 (L) 13.2 - 17.0 g/dL Hematocrit 35.2 (L) 39.0 - 50.0 % MCV 86.9 80.0 - 100.0 fl MCH 27.9 27.0 - 34.0 pg MCHC 32.1 32.0 - 35.5 g/dL RDW-SD 42.5 37 - 53 fl Platelet Count 519 (H) 150 - 400 K/uL MPV 9.5 fl Diff Type AUTOMATED % nRBC 0.0 0 /100WBC % Neutrophils 84.00 % IMMATURE GRANULOCYTE 1.10 % % Lymphocytes 9.40 % Monocyte % 5.30 % Eosinophils % 0.10 % Basophils % 0.10 % Neutrophils, Absolute 8.34 (H) 1.90 - 7.40 K/uL IMMATURE GRANS AB 0.11 (H) 0.00 - 0.07 K/uL Absolute Lymphocytes 0.93 (L) 1.00 - 3.90 K/uL Absolute Monocytes 0.53 0.00 - 0.80 K/uL Eosinophils, Absolute 0.01 0.00 - 0.50 K/uL Basophils, Absolute 0.01 0.00 - 0.10 K/uL Comprehensive Metabolic Panel Result Value Ref Range Na 137 135 - 145 mmol/L K 3.9 3.5 - 4.9 mmol/L Cl 104 99 - 109 mmol/L CO2 27 23 - 32 mmol/L Anion Gap 10 5 - 20 mmol/L Glucose 85 65 - 99 mg/dL BUN 17 8 - 25 mg/dL Creatinine 0.70 0.70 - 1.30 mg/dL BUN/Creatinine Ratio 24 Calcium 8.4 (L) 8.5 - 10.5 mg/dL Protein, Total 6.0 (L) 6.3 - 8.2 g/dL Albumin 2.4 (L) 3.6 - 5.0 g/dL Globulin 3.6 1.3 - 4.9 g/dL A/G Ratio 0.7 (L) 1.0 - 2.4 BILIRUBIN, TOTAL 0.2 0.1 - 1.5 mg/dL ALK PHOS 61 35 - 115 U/L AST 23 10 - 45 U/L ALT 64 10 - 65 U/L Estimated GFR >60 >60 mL/min/1.73m2 PROBLEM LIST Principal Problem: Large B-cell lymphoma Active Problems: Admission for antineoplastic chemotherapy SIRS (systemic inflammatory response syndrome) ASSESSMENT & PLAN Large B Birgit Lymphoma: This was diagnosed in March 2020 and underwent excisional biopsy of a right deep cervical lymph node. Pathology revealed large atypical B lymphocytes was consis tent with diffuse large B-cell lymphoma, positive for CD20, CD23, BCL 6, CD79a, and PAX 5. Ki-67 was 60% and morphologic and immunohistochemical findings were in favor of a primary me diastinal large B-cell lymphoma. He was started Rituxan April 06, 2020 as out patient, and he now receiving anti neoplastic chemotherapy Cycle 1, day1-5 of Doxorubicin, Etoposide and Vincristine and Dexamethasone combination as per Oncology services. Mild leukocytosis up to 17 was noted which has now improved and resolved. Will continue to monitor CBC and CMP, cont inue Acyclovir, Allopurinol and Famotidine as scheduled and add Magic mouth wash for oral so res and monitor closely. Systemic Inflammatory Response Syndrome: This was based on findings of leukocytosis and tod vated heart rate without signs of infection or sepsis. WBC counts went up to 17 due to stero id use, now stable improved. Will continue to monitor CBC daily and no indication for antibi otics at this time. DVT prophylaxis with SCD's and Lovenox. Discharge plans likely tomorrow if remains stable and after completion of Chemotherapy. Deni John MD 04/12/2020 Skylar Shah RN - 04/11/2020 6:58 PM PDTEnd of shift chart review complete. No changes in acute asses sment. Vital signs stable. Pt medicated X2 for nausea. Alejandra Awad MD - 04/11/2020 8:[address] [facility] Service: Hematology and Oncology Progress Note Hospital Day: LOS: 3 days Treatment Team: Wilton Jeff MD SUBJECTIVE: No acute issue overnight. Afebrile. Continues to have cough with intermittent blood tinged sputum, but it is improving since started chemo. Denied any chest pain, worsening SOB, abdom inal pain, n/v. Constipated. OBJECTIVE: Scheduled Medications acyclovir 800 mg Oral BID allopurinol 300 mg Oral Daily DOXOrubicin with etoposide and vinCRIStine infusion 10 mg/m2/day (Treatment Plan Recor ded) Intravenous Q24H DOXOrubicin with etoposide and vinCRIStine infusion 10 mg/m2/day (Treatment Plan Recor ded) Intravenous Q24H famotidine 20 mg Oral BID nicotine 1 patch Transdermal Daily predniSONE 120 mg Oral Daily Continuous Infusions sodium chloride 0.9% 120 mL/hr at 04/11/20 0409 PRN Medications acetaminophen, 650 mg, Q4H PRN albuterol, 2 puff, Once PRN albuterol, 2 puff, Q6H PRN benzonatate, 100 mg, TID PRN uwolhphyiy-xaxruzunfyauw-swakafvv, 1-2 tablet, Q4H PRN diphenhydrAMINE, 25 mg, Q15 Min PRN docusate sodium, 100 mg, BID PRN EPINEPHrine, 0.3 mg, Q5 Min PRN famotidine, 20 mg, Once PRN heparin, 5 mL, PRN HYDROcodone-acetaminophen, 1 tablet, Q6H PRN methylPREDNISolone sodium succinate, 125 mg, Once PRN metoclopramide, 10 mg, Q6H PRN ondansetron, 4 mg, Q6H PRN ondansetron, 4 mg, Q6H PRN sodium chloride 0.9%, 250 mL, PRN sodium chloride 0.9%, 500 mL, PRN sodium chloride 0.9%, 10 mL, PRN DATA Recent Labs Lab 04/11/20 0359 04/10/20 0341 04/09/20 0317 04/06/20 0754 WBC 17.68* 14.32* 8.97 10.76 RBC 4.12* 3.91* 3.74* 3.72* HGB 11.5* 11.3* 10.6* 10.5* HCT 36.2* 34.4* 33.2* 31.6* MCV 87.9 88.0 88.8 85.1 MCH 27.9 28.9 28.3 28.3 MCHC 31.8* 32.8 31.9* 33.2 PLT 611* 522* 481* 540* MPV 9.0 9.0 9.2 7.2 Recent Labs Lab 04/11/20 0359 04/10/20 0341 04/09/20 0317 04/06/20 0754 NA 139 139 138 133* K 4.1 4.3 4.1 3.7 CL 106 104 102 96* CO2 28 27 30 29 ANIONGAP 9 12 10 12 BUN 17 17 23 15 ALKPHOS 63 70 63 60 ALT 67* 23 16 15 AST 53* 21 14 15 EGFR >60 >60 >60 >60 PHOS -- -- 4.7 3.5 MG -- -- 1.9 -- IMAGING No results found for this or any previous visit (from the past 72 hour(s)). EXAM: Patient Vitals for the past 24 hrs: BP Temp Temp src Pulse Resp SpO2 Weight 04/11/20 0724 103/51 36.6 C (97.8 F) Oral 58 16 97 % 86.5 kg (190 lb 11.2 oz) 04/11/20 0346 103/64 36.3 C (97.3 F) Oral 68 17 97 % 04/10/20 2322 115/57 36.5 C (97.7 F) Oral 89 19 100 % 04/10/20 1938 99/57 36.4 C (97.6 F) Oral 56 17 97 % 04/10/20 1539 107/59 36.5 C (97.7 F) Oral 74 16 97 % 04/10/20 1126 100/56 36.6 C (97.8 F) Oral 79 16 96 % Intake/Output Summary (Last 24 hours) at 04/11/2020 0855 Last data filed at 04/11/2020 0800 Gross per 24 hour Intake 3122 ml Output 5000 ml Net -1878 ml General: Alert and oriented. No acute distress. HEENT: PERRLA.Sclera anicteric. Oral mucosa is moist and pink without lesions or evidence o f thrush. Neck: Supple. Lungs: Clear to auscultation B. Heart: Regular rate and rhythm. S1/S2. Abdomen: Soft, nondistended, nontender. No masses are appreciated. No hepatosplenomegaly.+B S. Lymphatics: There is no cervical, supraclavicular, axillary, or inguinal adenopathy. Neuro: Grossly intact. Extremities: No edema. PROBLEM LIST Principal Problem: Large B-cell lymphoma Active Problems: Admission for antineoplastic chemotherapy SIRS (systemic inflammatory response syndrome) ASSESSMENT & PLAN 29 yo gentleman with 1. Large B cell lymphoma, stage III, bulky mediastinum NILSA diagnosed in 03/2020. He is on C1 chemo with R-EPOCH, D2. He is tolerating the chemo well so far. His lab is good. Will yo nue. There is no sign of tumor lysis syndrome. Continue iv hydration and allopurinol. Continue p rophylactic acyclovir. 2. Continue other supportive care. Recommend DVT prophylaxis. Code Status: Full Code Alejandra Castle MD 04/11/20208:55 AM PDT ashmi, Deni Villatoro MD - 04/11/2020 7:55 AM PDT Service: Hospitalist Daily Progress Note Asad Longo 29 y.o. 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 He follows with Dr. Jeff from ncology services and was admitted for first cycle of chemotherapy. He was started Rituxan [place] 2019 as out patient, his initial labs like CBC and CMP were stable. Oncology servic es on board and he was started Doxorubicin, Etoposide, Vincristine and Prednisone combinatio n. Events Overnight: Patient seen and examined. Overnight events noted. Patient was seen awake and alert. He rep orted feeling okay, denied any shortness of breath but reported mild cough symptoms with kimberly e blood tinged sputum off and on. No headaches, has mild nausea wihtout vomiting, no abdomin al pain, diarrhea but has mild constipation. Appetite is fair. Remained afebrile. Scheduled Medications acetaminophen, 650 mg, Oral, Q4H PRN acyclovir, 800 mg, Oral, BID albuterol, 2 puff, Inhalation, Once PRN albuterol, 2 puff, Inhalation, Q6H PRN allopurinol, 300 mg, Oral, Daily benzonatate, 100 mg, Oral, TID PRN jyudhxbiqj-usphsyavggtlm-gnfhqmdj, 1-2 tablet, Oral, Q4H PRN diphenhydrAMINE, 25 mg, Intravenous, Q15 Min PRN docusate sodium, 100 mg, Oral, BID PRN DOXOrubicin with etoposide and vinCRIStine infusion, 10 mg/m2/day (Treatment Plan Recorded) , Intravenous, Q24H DOXOrubicin with etoposide and vinCRIStine infusion, 10 mg/m2/day (Treatment Plan Recorded) , Intravenous, Q24H EPINEPHrine, 0.3 mg, Intramuscular, Q5 Min PRN famotidine, 20 mg, Intravenous, Once PRN famotidine, 20 mg, Oral, BID heparin, 5 mL, Intracatheter, PRN HYDROcodone-acetaminophen, 1 tablet, Oral, Q6H PRN methylPREDNISolone sodium succinate, 125 mg, Intravenous, Once PRN metoclopramide, 10 mg, Intravenous, Q6H PRN nicotine, 1 patch, Transdermal, Daily ondansetron, 4 mg, Oral, Q6H PRN ondansetron, 4 mg, Intravenous, Q6H PRN predniSONE, 120 mg, Oral, Daily sodium chloride 0.9%, 250 mL, Intravenous, PRN sodium chloride 0.9%, 500 mL, Intravenous, PRN sodium chloride 0.9%, , Intravenous, Continuous sodium chloride 0.9%, 10 mL, Intracatheter, PRN Continuous Infusions . PRN Medications Current Facilty-Administered PRN Medications Ordered in [facility] Medication Dose Route Frequency Provider Last Rate Last Dose acetaminophen (TYLENOL) tablet 650 mg 650 mg Oral Q4H PRN Addie Whiteside MD 650 mg at 0 04/10/20 0806 albuterol 90 mcg/puff inhaler 2 puff 2 puff Inhalation Once PRN WILTON BeckerP albuterol 90 mcg/puff inhaler 2 puff 2 puff Inhalation Q6H PRN Addie Whiteside MD benzonatate (TESSALON) capsule 100 mg 100 mg Oral TID PRN Addie Whiteside MD 100 mg at 0 04/08/202029 iexmbcjswg-vqzojkgfuocbo-cwsxrgth 50-325-40 mg per tablet 1-2 tablet 1-2 tablet Oral Q 4H PRN WILTON BeckerP 1 tablet at 04/10/202028 diphenhydrAMINE (BENADRYL) injection 25 mg 25 mg Intravenous Q15 Min PRN KOLE Baig docusate sodium (COLACE) capsule 100 mg 100 mg Oral BID PRN Addie Whiteside MD 100 mg at 04/10/201709 EPINEPHrine 1 mg/mL injection 0.3 mg 0.3 mg Intramuscular Q5 Min PRN Lisa wyatt, TELEPHONE INFORMATION CLERK famotidine (PEPCID) injection 20 mg 20 mg Intravenous Once PRN Vazquez Becker UX ARCHITECT heparin 100 units/mL flush injection 500 Units 5 mL Intracatheter PRN Lisa carpenter, TELEPHONE INFORMATION CLERK HYDROcodone-acetaminophen (NORCO) 5-325 mg per tablet 1 tablet 1 tablet Oral Q6H PRN Fausto Whiteside MD methylPREDNISolone sodium succinate (solu-MEDROL) 62.5 mg/mL injection 125 mg 125 mg I ntravenous Once PRN KOLE Becker metoclopramide (REGLAN) 5 mg/mL injection 10 mg 10 mg Intravenous Q6H PRN Carlos A Brennan MD 10 mg at 04/10/202028 ondansetron (ZOFRAN ODT) disintegrating tablet 4 mg 4 mg Oral Q6H PRN Addie Whiteside MD 4 mg at 04/10/201707 ondansetron (ZOFRAN) injection 4 mg 4 mg Intravenous Q6H PRN Addie Whiteside MD sodium chloride 0.9% (NS) bolus 250 mL 250 mL Intravenous PRN Lisa J Isaias, [place] DOG [employer]IAL sodium chloride 0.9% (NS) infusion 500 mL 500 mL Intravenous PRN Lisa Rola Isaias, TELEPHONE INFORMATION CLERK sodium chloride 0.9% flush 10 mL 10 mL Intracatheter PRN Lisa J Isaias, TELEPHONE INFORMATION CLERK Allergy: No Known Allergies OBJECTIVE Vital Signs: Vitals: 04/11/20 0724 BP: 103/51 Pulse: 58 Resp: 16 Temp: 36.6 C (97.8 F) Intake/Output Summary (Last 24 hours) at 04/11/2020 0755 Last data filed at 04/11/2020 0557 Gross per 24 hour Intake 3122 ml Output 4150 ml Net -1028 ml Examination: Constitutional: Patient is alert and oriented x 3. Appears well developed and not in acute distress. HEENT: Head: Normocephalic and Atraumatic. Nose: Nose normal. Mouth/Throat: Oropharynx is clear and moist. Eyes: No conjunctiva injection. EOM Intact. PERRLA. No scleral icterus. Neck: Neck supple. No JVD present. No tracheal deviation present. No thyromegaly Cardiovascular: Regular rate and rhythm, no murmur heard and no friction rub. Pulmonary/Chest: Mostly clear to auscultation, no wheezes, rales and crackles. Abdominal: Soft, BS present, no distension, no ascites. No rebound tenderness and no guardi ng. Musculoskeletal: Moves all limbs, No difficulty in walking and no joint tenderness. No ped al edema. Neurological: No Focal neurologic deficits, No CN deficits. Skin: Skin is warm and dry. No ecchymoses, or abrasions. Psychiatric: No Confusion, No agitation, Reactive affect and Judgement is stable. LABS: Recent Results (from the past 24 hour(s)) CBC with Differential Result Value Ref Range WBC 17.68 (H) 3.80 - 11.00 K/uL Red Blood Cells 4.12 (L) 4.20 - 5.70 M/uL Hemoglobin 11.5 (L) 13.2 - 17.0 g/dL Hematocrit 36.2 (L) 39.0 - 50.0 % MCV 87.9 80.0 - 100.0 fl MCH 27.9 27.0 - 34.0 pg MCHC 31.8 (L) 32.0 - 35.5 g/dL RDW-SD 42.8 37 - 53 fl Platelet Count 611 (H) 150 - 400 K/uL MPV 9.0 fl Diff Type AUTOMATED % nRBC 0.0 0 /100WBC % Neutrophils 87.30 % IMMATURE GRANULOCYTE 1.70 % % Lymphocytes 6.00 % Monocyte % 4.90 % Eosinophils % 0.00 % Basophils % 0.10 % Neutrophils, Absolute 15.45 (H) 1.90 - 7.40 K/uL IMMATURE GRANS AB 0.30 (H) 0.00 - 0.07 K/uL Absolute Lymphocytes 1.06 1.00 - 3.90 K/uL Absolute Monocytes 0.86 (H) 0.00 - 0.80 K/uL Eosinophils, Absolute 0.00 0.00 - 0.50 K/uL Basophils, Absolute 0.01 0.00 - 0.10 K/uL Comprehensive Metabolic Panel Result Value Ref Range Na 139 135 - 145 mmol/L K 4.1 3.5 - 4.9 mmol/L Cl 106 99 - 109 mmol/L CO2 28 23 - 32 mmol/L Anion Gap 9 5 - 20 mmol/L Glucose 94 65 - 99 mg/dL BUN 17 8 - 25 mg/dL Creatinine 0.77 0.70 - 1.30 mg/dL BUN/Creatinine Ratio 22 Calcium 8.9 8.5 - 10.5 mg/dL Protein, Total 5.6 (L) 6.3 - 8.2 g/dL Albumin 3.7 3.6 - 5.0 g/dL Globulin 1.9 1.3 - 4.9 g/dL A/G Ratio 1.9 1.0 - 2.4 BILIRUBIN, TOTAL 0.2 0.1 - 1.5 mg/dL ALK PHOS 63 35 - 115 U/L AST 53 (H) 10 - 45 U/L ALT 67 (H) 10 - 65 U/L Estimated GFR >60 >60 mL/min/1.73m2 Uric Acid Result Value Ref Range Uric Acid 2.3 (L) 3.2 - 8.6 mg/dL PROBLEM LIST Principal Problem: Large B-cell lymphoma Active Problems: Admission for antineoplastic chemotherapy SIRS (systemic inflammatory response syndrome) ASSESSMENT & PLAN Large B Birgit Lymphoma: This was diagnosed in March 2020 and underwent excisional biopsy of a right deep cervical lymph node. Pathology revealed large atypical B lymphocytes was consis tent with diffuse large B-cell lymphoma, positive for CD20, CD23, BCL 6, CD79a, and PAX 5. Ki-67 was 60% and morphologic and immunohistochemical findings were in favor of a primary me diastinal large B-cell lymphoma. He was started Rituxan April 06, 2020 as out patient, and he now receiving anti neoplastic chemotherapy Cycle 1, day1-5 of Doxorubicin, Etoposide and Vincristine and Dexamethasone combination as per Oncology services. He has mild leukocytosis up to 17 due to steroid use and no signs of infection at this time. Will monitor CBC and CM P, continue Acyclovir for viral prophylaxis, Famotidine for GI protection while on steroids and follow Oncology recommendations. Systemic Inflammatory Response Syndrome: This was based on findings of leukocytosis and tod vated heart rate without signs of infection or sepsis.WBC counts are high at 17 this AM due to steroid use, will monitor CBC daily and no indication for antibiotics at this time. DVT prophylaxis with SCD's and Lovenox. Discharge plans in 2 to 3 days or after completion of Chemotherapy and cleared by Oncology services. Deni John MD 04/11/2020 Rachna Suazo RN - 04/10/2020 3:33 PM PDTCare Management Follow-Up Readmission Risk: Medium Current Discharge Plan Anticipated Discharge Disposition: home with family Expected DC Date: 04/13/2020 Barriers to Discharge: none Steps Taken Toward Discharge: Next Steps: Community Support Services Current Outpt/Agency/Support Groups: infusion therapy, outpatient (specify) Community Agency Name: [facility] Other Resources: Discharge Transportation Transportation Needs: car Notes: CM attended daily medical team rounding. Pt tolerating chemo well, d/c planned for . Electronically signed: Rachna Nolan RN 04/10/2020 3:33 PM PDT Deni Jones MD - 04/10/2020 7:45 AM PDT Service: Hospitalist Daily Progress Note Asad Longo 29 y.o. 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 He follows with Dr. Jeff from ncology services and was admitted for first cycle of chemotherapy. He was started Rituxan [place] 2019 as out patient, his initial labs like CBC and CMP were stable. Oncology servic es on board and he was started Doxorubicin, Etoposide, Vincristine and Prednisone combinatio n. Events Overnight: Patient seen and examined. Overnight events noted. Patient was seen awake and alert. He rep orted feeling fair this AM. Slept fair last night, he otherwise denied headaches, nausea, vo miting, chest pain, shortness of breath but reported mild cough symptoms. Also denied abdomi nal pain, diarrhea or constipation. Appetite is fair. Remained afebrile. Scheduled Medications acetaminophen, 650 mg, Oral, Q4H PRN acyclovir, 800 mg, Oral, BID albuterol, 2 puff, Inhalation, Once PRN albuterol, 2 puff, Inhalation, Q6H PRN allopurinol, 300 mg, Oral, Daily benzonatate, 100 mg, Oral, TID PRN diphenhydrAMINE, 25 mg, Intravenous, Q15 Min PRN docusate sodium, 100 mg, Oral, BID PRN DOXOrubicin with etoposide and vinCRIStine infusion, 10 mg/m2/day (Treatment Plan Recorded) , Intravenous, Q24H DOXOrubicin with etoposide and vinCRIStine infusion, 10 mg/m2/day (Treatment Plan Recorded) , Intravenous, Q24H EPINEPHrine, 0.3 mg, Intramuscular, Q5 Min PRN famotidine, 20 mg, Intravenous, Once PRN famotidine, 20 mg, Oral, BID heparin, 5 mL, Intracatheter, PRN HYDROcodone-acetaminophen, 1 tablet, Oral, Q6H PRN methylPREDNISolone sodium succinate, 125 mg, Intravenous, Once PRN nicotine, 1 patch, Transdermal, Daily ondansetron, 4 mg, Oral, Q6H PRN ondansetron, 4 mg, Intravenous, Q6H PRN predniSONE, 120 mg, Oral, Daily sodium chloride 0.9%, 250 mL, Intravenous, PRN sodium chloride 0.9%, 500 mL, Intravenous, PRN sodium chloride 0.9%, , Intravenous, Continuous sodium chloride 0.9%, 10 mL, Intracatheter, PRN Continuous Infusions . PRN Medications Current Facilty-Administered PRN Medications Ordered in Epic Medication Dose Route Frequency Provider Last Rate Last Dose acetaminophen (TYLENOL) tablet 650 mg 650 mg Oral Q4H PRN Addie Whiteside MD 650 mg at 0 04/09/20 1400 albuterol 90 mcg/puff inhaler 2 puff 2 puff Inhalation Once PRN Lisa Esparza, TELEPHONE INFORMATION CLERK albuterol 90 mcg/puff inhaler 2 puff 2 puff Inhalation Q6H PRN Addie Whiteside MD benzonatate (TESSALON) capsule 100 mg 100 mg Oral TID PRN Addie Whiteside MD 100 mg at 0 04/08/20 2030 diphenhydrAMINE (BENADRYL) injection 25 mg 25 mg Intravenous Q15 Min PRN KOLE Baig docusate sodium (COLACE) capsule 100 mg 100 mg Oral BID PRN Addie Whiteside MD EPINEPHrine 1 mg/mL injection 0.3 mg 0.3 mg Intramuscular Q5 Min PRN Lisa Yarbrough ppKOLE farley famotidine (PEPCID) injection 20 mg 20 mg Intravenous Once PRN Vazquez Becker UX ARCHITECT heparin 100 units/mL flush injection 500 Units 5 mL Intracatheter PRN Lisa Miranda ippo, TELEPHONE INFORMATION CLERK HYDROcodone-acetaminophen (NORCO) 5-325 mg per tablet 1 tablet 1 tablet Oral Q6H PRN Fausto Whiteside MD methylPREDNISolone sodium succinate (solu-MEDROL) 62.5 mg/mL injection 125 mg 125 mg I ntravenous Once PRN KOLE Becker ondansetron (ZOFRAN ODT) disintegrating tablet 4 mg 4 mg Oral Q6H PRN Addie Whiteside MD ondansetron (ZOFRAN) injection 4 mg 4 mg Intravenous Q6H PRN Addie Whiteside MD sodium chloride 0.9% (NS) bolus 250 mL 250 mL Intravenous PRN Lisa J Isaias, [place] DOG [employer] sodium chloride 0.9% (NS) infusion 500 mL 500 mL Intravenous PRN Lisa Rola Isaias, TELEPHONE INFORMATION CLERK sodium chloride 0.9% flush 10 mL 10 mL Intracatheter PRN Lisa J Isaias, TELEPHONE INFORMATION CLERK Allergy: No Known Allergies OBJECTIVE Vital Signs: Vitals: 04/10/20 0731 BP: 111/60 Pulse: 80 Resp: 20 Temp: 36.6 C (97.9 F) Intake/Output Summary (Last 24 hours) at 04/10/2020 0795 Last data filed at 04/10/2020 0548 Gross per 24 hour Intake 5105 ml Output 3975 ml Net 1130 ml Examination: Constitutional: Patient is alert and oriented x 3. Appears well developed and not in acute distress. HEENT: Head: Normocephalic and Atraumatic. Nose: Nose normal. Mouth/Throat: Oropharynx is clear and moist. Eyes: No conjunctiva injection. EOM Intact. PERRLA. No scleral icterus. Neck: Neck supple. No JVD present. No tracheal deviation present. No thyromegaly Cardiovascular: Regular rate and rhythm, no murmur heard and no friction rub. Pulmonary/Chest: Clear to auscultation, no wheezes, rales and crackles. Abdominal: Soft, BS present, no distension, no ascites. No rebound tenderness and no guardi ng. Musculoskeletal: Moves all limbs, No difficulty in walking and no joint tenderness. No ped al edema. Neurological: No Focal neurologic deficits, No CN deficits. Skin: Skin is warm and dry. No ecchymoses, or abrasions. Psychiatric: No Confusion, No agitation, Reactive affect and Judgement is stable. LABS: Recent Results (from the past 24 hour(s)) CBC with Differential Result Value Ref Range WBC 14.32 (H) 3.80 - 11.00 K/uL Red Blood Cells 3.91 (L) 4.20 - 5.70 M/uL Hemoglobin 11.3 (L) 13.2 - 17.0 g/dL Hematocrit 34.4 (L) 39.0 - 50.0 % MCV 88.0 80.0 - 100.0 fl MCH 28.9 27.0 - 34.0 pg MCHC 32.8 32.0 - 35.5 g/dL RDW-SD 42.7 37 - 53 fl Platelet Count 522 (H) 150 - 400 K/uL MPV 9.0 fl Diff Type AUTOMATED % nRBC 0.0 0 /100WBC % Neutrophils 90.70 % IMMATURE GRANULOCYTE 1.50 % % Lymphocytes 5.70 % Monocyte % 2.00 % Eosinophils % 0.00 % Basophils % 0.10 % Neutrophils, Absolute 12.99 (H) 1.90 - 7.40 K/uL IMMATURE GRANS AB 0.21 (H) 0.00 - 0.07 K/uL Absolute Lymphocytes 0.81 (L) 1.00 - 3.90 K/uL Absolute Monocytes 0.29 0.00 - 0.80 K/uL Eosinophils, Absolute 0.00 0.00 - 0.50 K/uL Basophils, Absolute 0.02 0.00 - 0.10 K/uL Comprehensive Metabolic Panel Result Value Ref Range Na 139 135 - 145 mmol/L K 4.3 3.5 - 4.9 mmol/L Cl 104 99 - 109 mmol/L CO2 27 23 - 32 mmol/L Anion Gap 12 5 - 20 mmol/L Glucose 115 (H) 65 - 99 mg/dL BUN 17 8 - 25 mg/dL Creatinine 0.74 0.70 - 1.30 mg/dL BUN/Creatinine Ratio 23 Calcium 9.4 8.5 - 10.5 mg/dL Protein, Total 6.1 (L) 6.3 - 8.2 g/dL Albumin 4.0 3.6 - 5.0 g/dL Globulin 2.1 1.3 - 4.9 g/dL A/G Ratio 1.9 1.0 - 2.4 BILIRUBIN, TOTAL 0.2 0.1 - 1.5 mg/dL ALK PHOS 70 35 - 115 U/L AST 21 10 - 45 U/L ALT 23 10 - 65 U/L Estimated GFR >60 >60 mL/min/1.73m2 Uric Acid Result Value Ref Range Uric Acid 2.0 (L) 3.2 - 8.6 mg/dL PROBLEM LIST Principal Problem: Large B-cell lymphoma Active Problems: Admission for antineoplastic chemotherapy SIRS (systemic inflammatory response syndrome) ASSESSMENT & PLAN Large B Birgit Lymphoma: This was diagnosed in March 2020 and underwent excisional biopsy of a right deep cervical lymph node. Pathology revealed large atypical B lymphocytes was consis tent with diffuse large B-cell lymphoma, positive for CD20, CD23, BCL 6, CD79a, and PAX 5. Ki-67 was 60% and morphologic and immunohistochemical findings were in favor of a primary me diastinal large B-cell lymphoma. He was started Rituxan April 06, 2020 as out patient, and he now receiving anti neoplastic chemotherapy Cycle 1, day1-5 of Doxorubicin, Etoposide and Vincristine and Dexamethasone combination per Oncology services. Will follow CBC, CMP, yo nue Acyclovir for viral prophylaxis, Famotidine for GI protection while on steroids and foll ow Oncology recommendations. Systemic Inflammatory Response Syndrome: This is based on findings of leukocytosis and elev ated heart rate but without signs of infection or sepsis. The mild leukocytosis is likely du e to steroid use, will follow CBC and no indication for antibiotics at this time. DVT prophylaxis with SCD's and Lovenox. Discharge plans in four days or after completion of Chemotherapy and cleared by Oncology se rvices. Deni John MD 04/10/2020 Wilton Stuart M D - 04/10/2020 7:[address] [facility] Service: Hematology and Oncology Progress Note Hospital Day: LOS: 2 days Patient Summary: Mr. Asad Longo is a 29 year old male with no significant past medical history othe r than tobacco use (1/2-1 pack/day [id number]) who began experiencing cough, pleuritic chest pain, dyspnea on exertion and URI symptoms beginning October 2019. He was initially treat ed with antibiotics by his PCP with minimal improvement of symptoms. CT scan of the chest onFebruary revealed a large cavitary lesion with mediastinal and axillary lymphadeno nelson .The patient also experienced an unintentional 30 pound weight loss since September 2019. The patient was referred to Dr. Tali Joseph of pulmonary medicine. She recommended a PET scan that was completed on March 16, 2020 revealing an FDG avid right upper lobe pulmo nary mass measuring 6.0 x 5.7 cm with an SUV of 30.1. The right middle lobe appeared atele ctatic secondary to compression of the bronchus from the large central mass. There was ext ensive conglomerate lymphadenopathy noted throughout the mediastinum, bilateral hilar areas and bilateral axillary areas. For example, there was a superior left hilar lymph node priyanka uring 3.2 x 2.5 cm with an SUV of 26.4, conglomerate anterior mediastinal lymphadenopathy me asuring 3.3 x 5.1 cm with an SUV of 27.9, 2 FDG avid pericardial lymph nodes, a lateral omi cardial node and a subdiaphragmatic lymph node partially necrotic measuring 2.3 x 2.4 cm wit h an SUV of 23.4. There was conglomerate right supraclavicular lymph nodes, centrally necr otic measuring 2.3 x 3.1 cm with an SUV of 20.2, and a conglomerate left supraclavicular lym ph node measuring 1.9 x 2.2 cm with an SUV of 26.5. There was no adenopathy or visceral le sions within the abdomen and pelvis. On March 20, 2020 the patient underwent excisional biopsy of a right deep cervical lymph nod e. Pathology revealed large atypical B lymphocytes was consistent with diffuse large B-cell lymphoma, positive for CD20, CD23, BCL 6, CD79a, and PAX 5. Ki-67 was 60%. The morphologi c and immunohistochemical findings were in favor of a primary mediastinal large B-cell lymph geovanna. There was no evidence of MYC or MYC/IgH rearrangement (ie no double or triple hit lymp jorge alberto). The patient was referred to oncology and saw Dr. Jeff in consultation March 27, 2020 who r ecommended initiation of chemotherapy. Mediport was placed by Dr. Gilliam April 01, 2020. Bone marrow biopsy April 02, 2020 revealed a mild hypocellular marrow for age at 30 40% wi th progressive trilineage hematopoiesis but no evidence of marrow involvement by lymphoma. On April 06, 2020, the patient initiated treatment with rituximab 375 mg/m IV (given as d ay 0 of DA-R-EPOCH). He is now admitted to initiate the chemotherapy portion of DA-R-EPOCH a s follows: Rituximab 375 mg/m IV day -3 cycle 1; Etoposide 50 mg/m IV continuous infusio n days 1 4; Vincristine 0.4 mg/m IV continuous infusion days 1 4; Doxorubicin 10 mg/m IV continuous infusion days 1 4; Cyclophosphamide 750 mg/m IV day 5; Prednisone 60mg/m 2 (120mg per Dr. Jeff) PO days 1-5 on a 21 day cycle. SUBJECTIVE Events Overnight: Asad is doing well. He has been tolerating chemotherapy well without an y unusual side effects. He describes his hospitalization as "boring" in a good way. He den ies any nausea or vomiting. He denies any pain. The patient has no other complaints today other than that listed in the review of systems. OBJECTIVE Scheduled Medications acyclovir 800 mg Oral BID allopurinol 300 mg Oral Daily DOXOrubicin with etoposide and vinCRIStine infusion 10 mg/m2/day (Treatment Plan Recor ded) Intravenous Q24H DOXOrubicin with etoposide and vinCRIStine infusion 10 mg/m2/day (Treatment Plan Recor ded) Intravenous Q24H famotidine 20 mg Oral BID nicotine 1 patch Transdermal Daily predniSONE 120 mg Oral Daily Continuous Infusions sodium chloride 0.9% 120 mL/hr at 04/10/20 0457 PRN Medications acetaminophen, albuterol, albuterol, benzonatate, diphenhydrAMINE, docusate sodium, EPINEPH rine, famotidine, heparin, HYDROcodone-acetaminophen, methylPREDNISolone sodium succinate, o ndansetron, ondansetron, sodium chloride 0.9%, sodium chloride 0.9%, sodium chloride 0.9% Physical Exam Vital Signs: BP 114/58 | Pulse 93 | Temp 36.7 C (98.1 F) (Oral) | Resp 20 | Ht 1.80 3 m (5' 11") | Wt 86.4 kg (190 lb 7.6 oz) | SpO2 97% | BMI 26.57 kg/m General: Alert and oriented. In no acute distress. Affect appropriate. Skin: Warm, dry and intact without rashes or ulcers. HEENT: There is complete resolution of his cervical lymphadenopathy. Conjunctivae are samuel r. Sclera anicteric. Oral mucosa is moist and pink without lesions or evidence of thrush. Lungs: Respiratory effort relaxed. No rales, rhonchi or wheezes. Heart: Regular rate and rhythm. No murmur, gallop or rubs Abdomen: Soft, nondistended, nontender. No masses are appreciated. No hepatosplenomegaly. A ctive bowel tones in all 4 quadrants. Extremities: No peripheral edema. Musculo: Bones and joints are unremarkable. Psychiatric: No signs of depression or anxiety. Maintains good eye contact, asks appropriat e questions, remains fully engaged. Lab Data Recent Labs Lab 04/10/20 0341 04/09/20 0317 04/06/20 0754 WBC 14.32* 8.97 10.76 RBC 3.91* 3.74* 3.72* HGB 11.3* 10.6* 10.5* HCT 34.4* 33.2* 31.6* MCV 88.0 88.8 85.1 MCH 28.9 28.3 28.3 MCHC 32.8 31.9* 33.2 PLT 522* 481* 540* MPV 9.0 9.2 7.2 Recent Labs Lab 04/10/20 0341 04/09/20 0317 04/06/20 0754 NA 139 138 133* K 4.3 4.1 3.7 CL 104 102 96* CO2 27 30 29 ANIONGAP 12 10 12 BUN 17 23 15 ALKPHOS 70 63 60 ALT 23 16 15 AST 21 14 15 EGFR >60 >60 >60 PHOS -- 4.7 3.5 MG -- 1.9 -- Medical Imaging Recent Results (from the past 360 hour(s)) IR Placement Port Narrative ULTRASOUND-GUIDED RIGHT IJ CHEST PORT PLACEMENT CLINICAL INFORMATION: Patient with lymphoma who requires long-term IV access for chemotherapy. COMPARISON: None. PROCEDURE: The risks, benefits and alternatives were discussed with the patient; consent was obtained and placed in the patient's chart. The risks included but were not limited to bleeding, pneumothorax, infection, equipment operator intermodal yard vein occlusion, allergic reaction and . The patient was then brought to the procedure room and placed in the supine position where the right side of the neck and chest were sterilely prepped and draped in the usual fashion. Maximum sterile barrier techniques taken. After local anesthetic was administered, a small incision was made with an 11 blade. Using ultrasound guidance, a micropuncture needle was then utilized to access the right internal jugular vein. Using standard Seldinger technique, a 5 [place] micropuncture sheath was position over the wire into the SVC/RA junction under fluoroscopic guidance. A tunneled tract was anesthetized with lidocaine, as was a port pocket. A 15 blade was used to make a horizontal incision and the pocket was created with blunt dissection. The tunnel tract was then created with blunt dissection and the catheter was pulled through the tunnel. A 0.035 wire was then advanced into the IVC and a peel-away sheath was positioned over the wire into the SVC/RA junction under fluoroscopic guidance. The wire and dilator were removed. The catheter was delivered into the SVC/RA junction. The peel-away sheath was removed. The catheter was cut to length and attached to the port. The port was then placed into the pocket and flushed. The port pocket was then closed using 3-0 deep interrupted and 4-0 running subcuticular absorbable suture. The port was accessed and flushed and per ordering physician request. A single spot film was obtained over the chest. Conscious sedation was administered. The nurse administered 4 mg Versed and 100 mcg fentanyl during the examination and monitored blood pressure, heart rate, and pulse oximeter. Physician intraservice time of 30 minutes. Fluoro Time: 0.8 minutes. Radiation dose: 6 mGy FINDINGS: The ultrasound demonstrated a widely patent and compressible right internal jugular vein. A permanent sonographic image was obtained and stored. Intra procedural fluoroscopic imaging showed the tip of the catheter and the course of the catheter in good position. Impression Uncomplicated ultrasound-guided right IJ chest port placement, tip in SVC/RA junction ready for use. 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 He is admitted to initiate treatment with DA-R-EPOCH. Mediport has been placed. Echocardi ogram was performed March 30, 2020 revealing an ejection fraction of 57%. He received rituxim ab in the outpatient setting 3 days ago and will receiving the cytotoxic portion of treatmen t starting yesterday (04/09/2020). Encounter for chemotherapy The patient will begin treatment today, April 09 with dose adjusted R-EPOCH as follows: Rituximab 375 mg/m IV day 0 (Given April 06 cycle 1) Etoposide 50 mg/m IV continuous infusion days 1 4 Vincristine 0.4 mg/m IV continuous infusion days 1 4 Doxorubicin 10 mg/m IV continuous infusion days 1 4 Cyclophosphamide 750 mg/m IV day 5 Prednisone 60 mg/m2 ([address] Jeff) PO days 1-5 On a 21 day cycle The patient will receive GCSF following treatment. Today is cycle 1 day 2. He is tolerating chemotherapy well without any unusual side effects. Tumor lysis syndrome prophylaxis Given volume of disease, the patient will be at risk for tumor lysis syndrome. He is currently on allopurinol will continue this. He will continue hydration. He has daily labs ordered. Labs show no evidence of tumor lysis. Anemia Hemoglobin 11.3. Should the patient require blood transfusion to keep hemoglobin greater than 8.0, he does n ot require irradiated blood products. Infectious prophylaxis Acyclovir 800mg PO BID for viral prophylaxis Code Status: Full Code Wilton Jeff MD 04/10/2020 7:25 AM PDT [facility] Hematology & Oncology Portions of this chart may have been created with voice recognition software. Occasional wr mak-word or "sound-alike" substitutions may have occurred, even after review, due to the inh erent limitations of voice recognition software. Please read the chart carefully and recogni ze, using context, where these substitutions have occurred. Personal communication is reques akbar for any clarifications. Lisa Yanez A RNP - 04/09/2020 8:[address] PDT [facility] Service: Hematology and Oncology Progress Note Hospital Day: LOS: 1 day Patient Summary: Mr. Asad Longo is a 29 year old male with no significant past medical history othe r than tobacco use (1/2-1 pack/day [id number]) who began experiencing cough, pleuritic chest pain, dyspnea on exertion and URI symptoms beginning October 2019. He was initially treat ed with antibiotics by his PCP with minimal improvement of symptoms. CT scan of the chest onFebruary revealed a large cavitary lesion with mediastinal and axillary lymphadeno nelson .The patient also experienced an unintentional 30 pound weight loss since September 2019. The patient was referred to Dr. Tali Joseph of pulmonary medicine. She recommended a PET scan that was completed on March 16, 2020 revealing an FDG avid right upper lobe pulmo nary mass measuring 6.0 x 5.7 cm with an SUV of 30.1. The right middle lobe appeared atele ctatic secondary to compression of the bronchus from the large central mass. There was ext ensive conglomerate lymphadenopathy noted throughout the mediastinum, bilateral hilar areas and bilateral axillary areas. For example, there was a superior left hilar lymph node priyanka uring 3.2 x 2.5 cm with an SUV of 26.4, conglomerate anterior mediastinal lymphadenopathy me asuring 3.3 x 5.1 cm with an SUV of 27.9, 2 FDG avid pericardial lymph nodes, a lateral omi cardial node and a subdiaphragmatic lymph node partially necrotic measuring 2.3 x 2.4 cm wit h an SUV of 23.4. There was conglomerate right supraclavicular lymph nodes, centrally necr otic measuring 2.3 x 3.1 cm with an SUV of 20.2, and a conglomerate left supraclavicular lym ph node measuring 1.9 x 2.2 cm with an SUV of 26.5. There was no adenopathy or visceral le sions within the abdomen and pelvis. On March 20, 2020 the patient underwent excisional biopsy of a right deep cervical lymph nod e. Pathology revealed large atypical B lymphocytes was consistent with diffuse large B-cell lymphoma, positive for CD20, CD23, BCL 6, CD79a, and PAX 5. Ki-67 was 60%. The morphologi c and immunohistochemical findings were in favor of a primary mediastinal large B-cell lymph geovanna. There was no evidence of MYC or MYC/IgH rearrangement (ie no double or triple hit lymp jorge alberto). The patient was referred to oncology and saw Dr. Jeff in consultation March 27, 2020 who r ecommended initiation of chemotherapy. Mediport was placed by Dr. Gilliam April 01, 2020. Bone marrow biopsy April 02, 2020 revealed a mild hypocellular marrow for age at 30 40% wi th progressive trilineage hematopoiesis but no evidence of marrow involvement by lymphoma. On April 06, 2020, the patient initiated treatment with rituximab 375 mg/m IV (given as d ay 0 of DA-R-EPOCH). He is now admitted to initiate the chemotherapy portion of DA-R-EPOCH a s follows: Rituximab 375 mg/m IV day -3 cycle 1; Etoposide 50 mg/m IV continuous infusio n days 1 4; Vincristine 0.4 mg/m IV continuous infusion days 1 4; Doxorubicin 10 mg/m IV continuous infusion days 1 4; Cyclophosphamide 750 mg/m IV day 5; Prednisone 60mg/m 2 (120mg per Dr. Jeff) PO days 1-5 on a 21 day cycle. SUBJECTIVE Events Overnight: The patient states he is doing well today. He reports a significant decr ease in his cough following his rituximab infusion. He denies shortness of breath or chest pain. No constipation or diarrhea. OBJECTIVE Scheduled Medications allopurinol 300 mg Oral Daily enoxaparin 40 mg Subcutaneous Q24H famotidine 20 mg Oral Daily nicotine 1 patch Transdermal Daily Continuous Infusions sodium chloride 0.9% 120 mL/hr at 04/09/20 0420 PRN Medications acetaminophen, albuterol, benzonatate, docusate sodium, HYDROcodone-acetaminophen, ondanset marin, ondansetron Physical Exam Vital Signs: BP 119/64 | Pulse 62 | Temp 36.9 C (98.5 F) (Oral) | Resp 20 | Ht 1.80 3 m (5' 11") | Wt 86.4 kg (190 lb 7.6 oz) | SpO2 95% | BMI 26.57 kg/m General: Alert and oriented. In no acute distress. Affect appropriate. Skin: Warm, dry and intact without rashes or ulcers. HEENT: Conjunctivae are clear. Sclera anicteric. Oral mucosa is moist and pink without lesi ons or evidence of thrush. Lungs: Respiratory effort relaxed. No rales, rhonchi or wheezes. Heart: Regular rate and rhythm. No murmur, gallop or rubs Abdomen: Soft, nondistended, nontender. No masses are appreciated. No hepatosplenomegaly. A ctive bowel tones in all 4 quadrants. Extremities: No peripheral edema. Musculo: Bones and joints are unremarkable. Psychiatric: No signs of depression or anxiety. Maintains good eye contact, asks appropriat e questions, remains fully engaged. Lab Data Recent Labs Lab 04/09/20 0317 04/06/20 0754 04/02/20 1141 WBC 8.97 10.76 13.41* RBC 3.74* 3.72* 4.08* HGB 10.6* 10.5* 11.7* HCT 33.2* 31.6* 34.7* MCV 88.8 85.1 85.0 MCH 28.3 28.3 28.7 MCHC 31.9* 33.2 33.7 PLT 481* 540* 542* MPV 9.2 7.2 7.2 Recent Labs Lab 04/09/20 0317 04/06/20 0754 NA 138 133* K 4.1 3.7 CL 102 96* CO2 30 29 ANIONGAP 10 12 BUN 23 15 ALKPHOS 63 60 ALT 16 15 AST 14 15 EGFR >60 >60 PHOS 4.7 3.5 MG 1.9 -- Medical Imaging Recent Results (from the past 360 hour(s)) IR Placement Port Narrative ULTRASOUND-GUIDED RIGHT IJ CHEST PORT PLACEMENT CLINICAL INFORMATION: Patient with lymphoma who requires long-term IV access for chemotherapy. COMPARISON: None. PROCEDURE: The risks, benefits and alternatives were discussed with the patient; consent was obtained and placed in the patient's chart. The risks included but were not limited to bleeding, pneumothorax, infection, equipment operator intermodal yard vein occlusion, allergic reaction and . The patient was then brought to the procedure room and placed in the supine position where the right side of the neck and chest were sterilely prepped and draped in the usual fashion. Maximum sterile barrier techniques taken. After local anesthetic was administered, a small incision was made with an 11 blade. Using ultrasound guidance, a micropuncture needle was then utilized to access the right internal jugular vein. Using standard Seldinger technique, a 5 [place] micropuncture sheath was position over the wire into the SVC/RA junction under fluoroscopic guidance. A tunneled tract was anesthetized with lidocaine, as was a port pocket. A 15 blade was used to make a horizontal incision and the pocket was created with blunt dissection. The tunnel tract was then created with blunt dissection and the catheter was pulled through the tunnel. A 0.035 wire was then advanced into the IVC and a peel-away sheath was positioned over the wire into the SVC/RA junction under fluoroscopic guidance. The wire and dilator were removed. The catheter was delivered into the SVC/RA junction. The peel-away sheath was removed. The catheter was cut to length and attached to the port. The port was then placed into the pocket and flushed. The port pocket was then closed using 3-0 deep interrupted and 4-0 running subcuticular absorbable suture. The port was accessed and flushed and per ordering physician request. A single spot film was obtained over the chest. Conscious sedation was administered. The nurse administered 4 mg Versed and 100 mcg fentanyl during the examination and monitored blood pressure, heart rate, and pulse oximeter. Physician intraservice time of 30 minutes. Fluoro Time: 0.8 minutes. Radiation dose: 6 mGy FINDINGS: The ultrasound demonstrated a widely patent and compressible right internal jugular vein. A permanent sonographic image was obtained and stored. Intra procedural fluoroscopic imaging showed the tip of the catheter and the course of the catheter in good position. Impression Uncomplicated ultrasound-guided right IJ chest port placement, tip in SVC/RA junction ready for use. 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 He is admitted to initiate treatment with DA-R-EPOCH. Mediport has been placed. Echocardi ogram was performed March 30, 2020 revealing an ejection fraction of 57%. He received Rituxim ab in the outpatient setting 3 days ago and will receiving the cytotoxic portion of treatmen t beginning today. Encounter for chemotherapy The patient will begin treatment today, April 09 with dose adjusted R-EPOCH as follows: Rituximab 375 mg/m IV day 0 (Given April 06 cycle 1) Etoposide 50 mg/m IV continuous infusion days 1 4 Vincristine 0.4 mg/m IV continuous infusion days 1 4 Doxorubicin 10 mg/m IV continuous infusion days 1 4 Cyclophosphamide 750 mg/m IV day 5 Prednisone 60mg/m2 (120mg per Dr. Jeff) PO days 1-5 On a 21 day cycle The patient will receive GCSF following treatment. Today is cycle 1 day 1. Possible side effects were reviewed in detail in the clinic by Dr. Jeff and the detailed consent form is signed and placed on the chart. The patient has no questions about his treat ment regimen today and is eager to proceed. Tumor lysis syndrome prophylaxis Given volume of disease, the patient will be at risk for tumor lysis syndrome. He is curre ntly on allopurinol will continue this. He will continue hydration. He has daily labs orde red. Currently uric acid is low at 3.0 and there is no evidence of tumor lysis. Anemia Hemoglobin 10.6 with hematocrit 33.2. No intervention required. Should the patient requir e blood transfusion to keep hemoglobin greater than 8.0, he does not require irradiated bloo d products. Infectious prophylaxis Acyclovir 800mg PO BID for viral prophylaxis No need for routine bactrim DS 1 for PJP prophylaxis Code Status: Full Code KOLE Goetz 04/09/2020 8:19 AM PDT [facility] Portions of this chart may have been created with voice recognition software. Occasional wr mak-word or "sound-alike" substitutions may have occurred, even after review, due to the inh erent limitations of voice recognition software. Please read the chart carefully and recogni ze, using context, where these substitutions have occurred. Personal communication is reques akbar for any clarifications. Deni Jones MD - 04/09/2020 7:26 AM PDTFormatting of this note might be different from the or iginal. Service: Hospitalist Daily Progress Note Asad Longo 29 y.o. : 1990 SEX: male PCP: Myrna Mejia MD Hospital Day: LOS: 1 SUBJECTIVE Patient Summary: Patient is a 29 year old malewith past medical history of recent diagnosis of Diffuse Lar ge B-Cell Lymphoma diagnosed in March 2020,positive for CD20, CD23,BCL 6, CD79a, and PAX 5 in favor of a primary mediastinal large B-cell lymphoma. He follows with Dr. Jeff from ncology services and was admitted for first cycle of chemotherapy. He was started Rituxan [place] 2019 as out patient, his initial labs like CBC and CMP were stable. Oncology servi josie on board and plan to start Doxorubicin, Etoposide and Vincristine combination today. Events Overnight: Patient seen and examined. Overnight events noted. Patient was seen awake and alert. Patien t slept fair last night. Denied any headaches, nausea, vomiting, chest pain, shortness of br eath but has mild cough symptoms. Feeling less energetic and mildly fatigued. Also denied a bdominal pain, diarrhea or constipation. Appetite is fair. Remained afebrile. Scheduled Medications acetaminophen, 650 mg, Oral, Q4H PRN albuterol, 2 puff, Inhalation, Q6H PRN allopurinol, 300 mg, Oral, Daily benzonatate, 100 mg, Oral, TID PRN docusate sodium, 100 mg, Oral, BID PRN enoxaparin, 40 mg, Subcutaneous, Q24H famotidine, 20 mg, Oral, Daily HYDROcodone-acetaminophen, 1 tablet, Oral, Q6H PRN nicotine, 1 patch, Transdermal, Daily ondansetron, 4 mg, Oral, Q6H PRN ondansetron, 4 mg, Intravenous, Q6H PRN sodium chloride 0.9%, , Intravenous, Continuous Continuous Infusions . PRN Medications Current Facilty-Administered PRN Medications Ordered in Epic Medication Dose Route Frequency Provider Last Rate Last Dose acetaminophen (TYLENOL) tablet 650 mg 650 mg Oral Q4H PRN Addie Whietside MD albuterol 90 mcg/puff inhaler 2 puff 2 puff Inhalation Q6H PRN Addie Whiteside MD benzonatate (TESSALON) capsule 100 mg 100 mg Oral TID PRN Addie Whiteside MD 100 mg at 0 04/08/202029 docusate sodium (COLACE) capsule 100 mg 100 mg Oral BID PRN Addie Whiteside MD HYDROcodone-acetaminophen (NORCO) 5-325 mg per tablet 1 tablet 1 tablet Oral Q6H PRN Fausto Whiteside MD ondansetron (ZOFRAN ODT) disintegrating tablet 4 mg 4 mg Oral Q6H PRN Addie Whiteside MD ondansetron (ZOFRAN) injection 4 mg 4 mg Intravenous Q6H PRN Addie Whiteside MD Allergy: No Known Allergies OBJECTIVE Vital Signs: Vitals: 04/09/20 0309 BP: 112/58 Pulse: 90 Resp: 16 Temp: 37.2 C (98.9 F) Intake/Output Summary (Last 24 hours) at 04/09/2020 0727 Last data filed at 04/09/2020 0422 Gross per 24 hour Intake 1359 ml Output 2125 ml Net -766 ml Examination: Constitutional: Patient is alert and oriented x 3. Appears well developed and not in acute distress. HEENT: Head: Normocephalic and Atraumatic. Nose: Nose normal. Mouth/Throat: Oropharynx is clear and moist. Eyes: No conjunctiva injection. EOM Intact. PERRLA. No scleral icterus. Neck: Neck supple. No JVD present. No tracheal deviation present. No thyromegaly Cardiovascular: Regular rate and rhythm, no murmur heard and no friction rub. Pulmonary/Chest: Clear to auscultation, no wheezes, rales and crackles. Abdominal: Soft, BS present, no distension, no ascites. No rebound tenderness and no guardi ng. Musculoskeletal: Moves all limbs, No difficulty in walking and no joint tenderness. No ped al edema. Neurological: No Focal neurologic deficits, No CN deficits. Skin: Skin is warm and dry. No ecchymoses, or abrasions. Psychiatric: No Confusion, No agitation, Reactive affect and Judgement is stable. LABS: Recent Results (from the past 24 hour(s)) Comprehensive Metabolic Panel Result Value Ref Range Na 138 135 - 145 mmol/L K 4.1 3.5 - 4.9 mmol/L Cl 102 99 - 109 mmol/L CO2 30 23 - 32 mmol/L Anion Gap 10 5 - 20 mmol/L Glucose 84 65 - 99 mg/dL BUN 23 8 - 25 mg/dL Creatinine 0.81 0.70 - 1.30 mg/dL BUN/Creatinine Ratio 28 Calcium 8.8 8.5 - 10.5 mg/dL Protein, Total 5.4 (L) 6.3 - 8.2 g/dL Albumin 3.5 (L) 3.6 - 5.0 g/dL Globulin 1.9 1.3 - 4.9 g/dL A/G Ratio 1.8 1.0 - 2.4 BILIRUBIN, TOTAL 0.2 0.1 - 1.5 mg/dL ALK PHOS 63 35 - 115 U/L AST 14 10 - 45 U/L ALT 16 10 - 65 U/L Estimated GFR >60 >60 mL/min/1.73m2 CBC with Differential Result Value Ref Range WBC 8.97 3.80 - 11.00 K/uL Red Blood Cells 3.74 (L) 4.20 - 5.70 M/uL Hemoglobin 10.6 (L) 13.2 - 17.0 g/dL Hematocrit 33.2 (L) 39.0 - 50.0 % MCV 88.8 80.0 - 100.0 fl MCH 28.3 27.0 - 34.0 pg MCHC 31.9 (L) 32.0 - 35.5 g/dL RDW-SD 44.5 37 - 53 fl Platelet Count 481 (H) 150 - 400 K/uL MPV 9.2 fl Diff Type AUTOMATED % nRBC 0.0 0 /100WBC % Neutrophils 70.40 % IMMATURE GRANULOCYTE 3.60 % % Lymphocytes 12.00 % Monocyte % 11.40 % Eosinophils % 2.00 % Basophils % 0.60 % Neutrophils, Absolute 6.32 1.90 - 7.40 K/uL IMMATURE GRANS AB 0.32 (H) 0.00 - 0.07 K/uL Absolute Lymphocytes 1.08 1.00 - 3.90 K/uL Absolute Monocytes 1.02 (H) 0.00 - 0.80 K/uL Eosinophils, Absolute 0.18 0.00 - 0.50 K/uL Basophils, Absolute 0.05 0.00 - 0.10 K/uL Magnesium Result Value Ref Range Magnesium 1.9 1.7 - 2.4 mg/dL Phosphorus Result Value Ref Range Phosphorus 4.7 2.3 - 4.8 mg/dL Uric Acid Result Value Ref Range Uric Acid 3.0 (L) 3.2 - 8.6 mg/dL PROBLEM LIST Principal Problem: Large B-cell lymphoma Active Problems: Admission for antineoplastic chemotherapy ASSESSMENT & PLAN Large B Birgit Lymphoma: This was diagnosed in March 2020, he underwent excisional biopsy of a right deep cervical lymph node. Pathology revealed large atypical B lymphocytes was consis tent with diffuse large B-cell lymphoma, positive for CD20, CD23, BCL 6, CD79a, and PAX 5. Ki-67 was 60% and morphologic and immunohistochemical findings were in favor of a primary me diastinal large B-cell lymphoma. He was started Rituxan April 06, 2020 as out patient, and he is now admitted for anti neoplastic chemotherapy. His labs upon admission like CBC and CM P are stable and he is currently scheduled for Cycle 1, day1-5 of Doxorubicin, Etoposide and Vincristine and Dexamethasone combination to start today. Appreciate oncology services hel p and follow their recommendations. DVT prophylaxis with SCD's and Lovenox. Discharge plans in five days or after completion of Chemotherapy and cleared by Oncology se rvices. Deni John MD 04/09/2020 documented in t his encounter H&P Notes Addie Whiteside MD - 04/08/2020 5:51 PM PDTFormatting of this note might be different from th e original. [facility] Service: Hospitalist History and Physical Date of Admission: April 08, 2020 Requesting Physician: Oncologist Dr. Jeff Reason for Admission: First cycle chemotherapy CHIEF COMPLAINT: Oncology team Dr. Jeff requested for direct admission for first cycle of chemotherapy for diffuse large B-cell lymphoma patient recently diagnosed in March 2020 HISTORY OF PRESENT ILLNESS Mr. Asad Longo 29 y.o. male with current smoker tobacco chew other than that no s ignificant past medical history recent diagnosed March 2020 with diffuse large B-cell lymphom a, positive for CD20, CD23, BCL 6, CD79a, and PAX 5. Ki-67 was 60%. ; in favor of a primar y mediastinal large B-cell lymphoma. Requested by oncology team for admit for chemo Cycle# 1 1-5 EPOCH. Scheduled for day 6 Neulasta. He was started Rituxan on 06 april 2020 He denies any recent cough congestion GI symptoms or skin rash REVIEW OF SYSTEMS 12 point ROS reviewed and negative other than above Past Medical History: Diagnosis Date Chronic cough 2019 Chronic headaches 2 x's per month History of pneumonia Lymphoma involving lung (HCC) 2019 right lung mass Past Surgical History: Procedure Laterality Date LYMPH NODE BIOPSY Right 03/20/2020 Procedure: BIOPSY DEEP CERVICAL NODE; Surgeon: She Huang DO; Location: [facility] No Known Allergies No medications prior to admission. Family History Problem Relation Age of Onset Bone Cancer Other Lung cancer Paternal Grandfather Cancer Paternal Grandmother Social History Tobacco Use Smoking Status Former Smoker Packs/day: 1.00 Years: 7.00 Pack years: 7.00 Types: Cigarettes Start date: 02/24/2020 Smokeless Tobacco Current User Types: Chew Tobacco Comment quit 02/22/2020 / chews 1 can tobacco/week Social History Substance and Sexual Activity Alcohol Use Not Currently Social History Substance and Sexual Activity Drug Use Yes Frequency: 7.0 times per week Types: Marijuana Comment: edibles and smoking PHYSICAL EXAM Vital Signs: There were no vitals taken for this visit. General Appearance: No apparent distress. Conversive and appropriate to place and person. HEENT: Normocephalic, atraumatic, pupils EOMI, PERRLA. Nose: no septal deviation or dischar ge. Ears: normal size, location, and contour. Throat: no exudates, dry. NECK: is supple, full ROM, nontender. LUNGS: clear to auscultation bilaterally with no wheezing, No rales or rhonchi audible. HEART: S1S2, Regular rate and rhythm without murmurs, gallops or rubs. ABDOMEN: Bowel sound is normoactive, abdomen is soft, non-tender non-distended ,no mass pal pable. EXTREMITIES:No lower extermity edema, No clubbing or cyanosis bilaterally NEURO: Cranial Nerves 2-12 appears intact, Gait not examined, Muscle strength appears equal bilaterally, Sensation grossly intact. PSYCH: Alert, awake and Oriented x3. SKIN: No bruises, rashes, lesions, or ulcers of significant extent. DATA CBC: Lab Results Component Value Date WBC 10.76 04/06/2020 RBC 3.72 (L) 04/06/2020 HGB 10.5 (L) 04/06/2020 HCT 31.6 (L) 04/06/2020 MCV 85.1 04/06/2020 MCH 28.3 04/06/2020 MCHC 33.2 04/06/2020 PLT 540 (H) 04/06/2020 MPV 7.2 04/06/2020 DIFFTYPE AUTOMATED 04/06/2020 CMP: Lab Results Component Value Date NA 133 (L) 04/06/2020 K 3.7 04/06/2020 CL 96 (L) 04/06/2020 CO2 29 04/06/2020 ANIONGAP 12 04/06/2020 BUN 15 04/06/2020 AGRATIO 1.3 04/06/2020 AST 15 04/06/2020 ALT 15 04/06/2020 EGFR >60 04/06/2020 BMP: Lab Results Component Value Date NA 133 (L) 04/06/2020 K 3.7 04/06/2020 CL 96 (L) 04/06/2020 CO2 29 04/06/2020 ANIONGAP 12 04/06/2020 BUN 15 04/06/2020 EGFR >60 04/06/2020 Hepatic Function Panel: Lab Results Component Value Date AST 15 04/06/2020 ALT 15 04/06/2020 Magnesium: No results found for: MG Phosphorus: Lab Results Component Value Date PHOS 3.5 04/06/2020 PT/INR: Lab Results Component Value Date INR 1.0 04/01/2020 PTT: No results found for: APTT[APTT HgbA1c: No components found for: HGBA1C Active Problems: diffuse large B-cell lymphoma, positive for CD20, CD23, BCL 6, CD79a, and PAX 5. Ki-67 w as 60%. 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 Current smoker ASSESSMENT AND PLAN: diffuse large B-cell lymphoma, positive for CD20, CD23, BCL 6, CD79a, and PAX 5. Ki-67 was 60%. 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 admit for chemo for Cycle#1 1-5 EPOCH. Scheduled for day 6 Neulasta. Started Rituxan on 06 april 2020 as out patient on 06 April at the clinic IVFnS at 100 cc/h A.m. lab CBC,CMP uric mag and phos Continue allopurinol for tumor lysis syndrome prevention DVT pro Hospital records reviewed. Labs and radiologic studies and reports reviewed. Discussed find ings with patient and patient family and also explaining what will be the care plan Old records reviewed on EMR. Dictation software, ConnectFu, used which may contain error for similar sounding words even af ter review. Personal communication requested for any clarification. Disposition: inpatient Code Status: fULL CODE Primary Care Physician: MD Addie Frank MD 04/08/2020 documented in thi s encounter Miscellaneous Notes Plan of Stef - Sari Duran RN - 04/13/2020 4:43 PM PDTPatient received all discharge instructions all questions were answered patients port was heparin locked and de-accessed. P atient will be transported home by private vehicle Sari Duran RN lan of Stef - Holger Zamora RN - 08/10/20 20 11:15 AM PDT Problem: Anemia (Chemotherapy Effects) Goal: Anemia Symptom Improvement Outcome: Ongoing, progressing Intervention: Monitor and Manage Anemia Flowsheets (Taken 04/13/2020 1108) Oral Nutrition Promotion: rest periods promoted Fatigue Management: frequent rest breaks encouraged Note: Monitoring labs, Pt has had no symptoms of anemia at this time. Minor bleeding in muc ous secretions, resolved this morning with continued use of Magic Mouth Wash for oral sores. Problem: Nausea and Vomiting (Chemotherapy Effects) Goal: Fluid and Electrolyte Balance Outcome: Ongoing, progressing Intervention: Prevent and Manage Nausea and Vomiting Flowsheets (Taken 04/13/2020 1108) Environmental Support: calm environment promoted Note: Pt nausea treated with medication (Famotidine and Regalin). Appetite maintained this shift. Problem: Neutropenia (Chemotherapy Effects) Goal: Absence of Infection Outcome: Ongoing, progressing Intervention: Prevent Infection and Maximize Resistance Note: Precautions utilized, Pt remains infection free. Problem: Oral Mucositis (Chemotherapy Effects) Goal: Improved Oral Mucous Membrane Integrity Outcome: Ongoing, progressing Intervention: Promote Oral Comfort and Health Flowsheets (Taken 04/13/2020 1108) Oral Mucous Membrane Protection: nonirritating oral fluids promoted other (see comments) Note: Use of magic mouth wash to treat sores, improved pain and no further bleeding today. lan of [facility] - Judy Alcantara RN - 04/12/2020 9:31 PM PDTFormatting of this note might be different from the o riginal. Problem: Anemia (Chemotherapy Effects) Goal: Anemia Symptom Improvement Outcome: Ongoing, progressing Problem: Nausea and Vomiting (Chemotherapy Effects) Goal: Fluid and Electrolyte Balance Outcome: Ongoing, progressing Problem: Neutropenia (Chemotherapy Effects) Goal: Absence of Infection Outcome: Ongoing, progressing Problem: Oral Mucositis (Chemotherapy Effects) Goal: Improved Oral Mucous Membrane Integrity Outcome: Ongoing, progressing Problem: Thrombocytopenia Bleeding Risk (Chemotherapy Effects) Goal: Absence of Bleeding Outcome: Ongoing, progressing Potential side effects of chemotherapy and s/sx of each reviewed with patient. Fatigue koki gement strategies, infection prevention, and bleeding prevention reviewed with patient who v erbalizes understanding. He will report any new s/sx to nursing staff. He denies nausea at t his time but is aware that antiemetics are available. He does have some sores in mouth this evening for which he is medicated with "magic mouthwash" which provides good pain relief. Wi ll continue to monitor sores. Pt tolerating 24 hour chemotherapy infusion well this evening. Vital signs stable, no acute changes. Pt complains of headache for which he is medicated with PRN PO Escig with good effect. 24 hour chart check and end of shift review complete. Judy Alcantara RN lan of Care - Skylar Singer RN - 04/12/2020 1:18 PM PDT Problem: Adult Inpatient Plan of Care Goal: Plan of Care Review Outcome: Ongoing, progressing Problem: Anemia (Chemotherapy Effects) Goal: Anemia Symptom Improvement Outcome: Ongoing, progressing Problem: Neurotoxicity (Chemotherapy Effects) Goal: Neurotoxicity Symptom Control Outcome: Ongoing, progressing Problem: Thrombocytopenia Bleeding Risk (Chemotherapy Effects) Goal: Absence of Bleeding Outcome: Ongoing, progressing Pt educated on safety measures and fall precautions. Pathways are clear and clutter free. Bed is in low and locked. Hourly rounding in progress. No signs of active bleeding or neuro toxicity noted. lan o Stef - Judy Alcantara RN - 04/11/2020 9:11 PM PDTFormatting of this note might be diff erent from the original. Problem: Anemia (Chemotherapy Effects) Goal: Anemia Symptom Improvement Outcome: Ongoing, progressing Problem: Nausea and Vomiting (Chemotherapy Effects) Goal: Fluid and Electrolyte Balance Outcome: Ongoing, progressing Problem: Neutropenia (Chemotherapy Effects) Goal: Absence of Infection Outcome: Ongoing, progressing Problem: Oral Mucositis (Chemotherapy Effects) Goal: Improved Oral Mucous Membrane Integrity Outcome: Ongoing, progressing Problem: Thrombocytopenia Bleeding Risk (Chemotherapy Effects) Goal: Absence of Bleeding Outcome: Ongoing, progressing Potential side effects of chemotherapy and s/sx of each reviewed with patient. Fatigue koki gement strategies, infection prevention, and bleeding prevention reviewed with patient who v erbalizes understanding. He will report any new s/sx to nursing staff. He denies nausea at t his time but is aware that antiemetics are available. Pt tolerates 24 hour chemotherapy well. Vital signs stable throughout the evening. Pt denie s any further headaches. 24 hour chart check and end of shift review complete. Judy Alcantara RN lan of Care - Skylar Singer RN - 04/11/2020 10:44 AM PDT Problem: Adult Inpatient Plan of Care Goal: Plan of Care Review Outcome: Ongoing, progressing Problem: Neutropenia (Chemotherapy Effects) Goal: Absence of Infection Outcome: Ongoing, progressing Problem: Thrombocytopenia Bleeding Risk (Chemotherapy Effects) Goal: Absence of Bleeding Outcome: Ongoing, progressing Pt educated on safety measures and fall precautions. Pathways are clear and clutter free. Bed is in low and locked. Hourly rounding in progress. Only sign of bleeding is the occasio nal blood tinged sputum that pt coughs up in am after waking up. lan of Care - Judy Alcantara RN - 04/11/2020 6:31 AM PDT Problem: Anemia (Chemotherapy Effects) Goal: Anemia Symptom Improvement Outcome: Ongoing, progressing Problem: Nausea and Vomiting (Chemotherapy Effects) Goal: Fluid and Electrolyte Balance Outcome: Ongoing, progressing Problem: Neutropenia (Chemotherapy Effects) Goal: Absence of Infection Outcome: Ongoing, progressing Problem: Thrombocytopenia Bleeding Risk (Chemotherapy Effects) Goal: Absence of Bleeding Outcome: Ongoing, progressing Potential side effects of chemotherapy reviewed with patient. Bleeding precautions and infe ction prevention strategies reviewed. Pt verbalizes understanding and will report new s/sx t o nursing staff. Pt continues to experience some nausea, second line agent ordered for added relief. Pt continued to co headache throughout evening, but experienced some relief with PRN Escig. Vital signs remain stable. Pt tolerates 24 hr chemo infusion well. 24 hour chart check and end of shift review complete. Judy Alcantara RN lan of Care - Karen Kim RN - 04/10/2020 4:14 PM PDTEnd of shift note: Patient has complained of headach e throughout the day. Medicated once with tylenol and once with ESGIC (see MAR). No other ch anges at this time. Shift review completed. Karen Kim RN Problem: Adult Inpatient Plan of Care Goal: Plan of Care Review Outcome: Ongoing, progressing Plan of care reviewed with patient including chemotherapy schedule and anticipated dischar ge date. Patient denies questions at this time. Problem: Nausea and Vomiting (Chemotherapy Effects) Goal: Fluid and Electrolyte Balance Outcome: Ongoing, progressing Patient reported some nausea and was mediated with zofran prn twice. lan of Stef Walters, Xochitl Mohan RN - 04/09/2020 7:51 PM PDTPt continues to tolerate chemotherapy with no issues . Problem: Adult Inpatient Plan of Care Goal: Plan of Care Review Outcome: Ongoing, progressing Flowsheets (Taken 04/09/20201950) Plan of Care Reviewed With: patient End of shift review complete. 24hr review complete. Xochitl Walters RN lan of Karen De La Cruz RN - 04/09/2020 4:34 PM PDTEnd of shift Note: Medicated once with tylenol for headache. Chemotherapy currently infusing. Shift review completed. Karen Kim RN Problem: Adult Inpatient Plan of Care Goal: Patient-Specific Goal Outcome: Ongoing, progressing Plan of care and chemotherapy education reviewed with patient. Patient denies questions at this time but patient encouraged to ask questions as they arise. Problem: Nausea and Vomiting (Chemotherapy Effects) Goal: Fluid and Electrolyte Balance Outcome: Ongoing, progressing Patient educated on the importance of staying on top of any nausea with prn medications. Reji rubalcava verbalized his understanding of options for nausea and to request medications as neede d. lan of Karen Oshea RN - 04/09/2020 10:57 AM PDT CHEMOTHERAPY EDUCATION Chemotherapy Drugs: Rituximab, Etoposide, Vincristine, Doxorubicin, Cyclophosphamide, Predn isone Chemotherapy is the use of drugs to treat cancer. Depending on your type of cancer, your d octor has chosen chemotherapy drugs to destroy or slow the growth of the cancer cells. Chem otherapy targets cells that rapidly grow and divide. Cancer cells divide more rapidly and u ncontrollably than healthy cells in our bodies. Nausea Medications: Kellenfran The goals of my chemotherapy treatment are curative. Chemotherapy treatment will be every 21 for 6 cycles. Physician: Dr. Jeff Triage Nurse Hours: Monday-Monday 8 am-5 pm; [...] Sensation changes in feet or hands. During week, call and ask to speak directly to the Triage nurse. After hours, weekends or holidays, call and ask to speak to one of the on-call physicians. For non- urgent issues, you may leave a message on the answering service. For emergencies call [phone] Because Chemotherapy destroys the most rapidly growing [...] can cause mouth irritation or sores. ? [place] your teeth after every meal and at [...] the BRAT diet (Bananas, Rice, Applesauce, and [place]). You may use a Sitzbath, or D [...] [facility] and scar[facility] are [facility] of [facility] ? Avoid excess exposure [...] 12. WEB Sites for Cancer Patients: a. [place] [employer] www.cancer.org b. National [employer] www.cancer.gov (ebooks available on website) c. [employer] [...] will do our best to accommodate you. lan of Stef Nolan, Rachna Lambert RN - 04/09/2020 10:48 AM PDTCare Management Initial Assessment Readmission Risk: Medium Status Prior to Admission or Illness Arrival From: admitted as an inpatient Lives With: child(margarita), dependent, significant other Living Arrangements: house Caregiver For: no one Patient s Caregiver: other (see comments)(pt is independent) Functional Status: Caregiving Concerns: no Home Accessibility: no concerns Transportation Available: car, family or friend will provide Able to return to prior living: yes Care Management Concerns Last discharge date: Readmission Within Last 30 Days: no previous admission in last 30 days Is Readmission Diagnosis Related to or Same As: Previous Discharging Facility: Previous Discharge Destination From: PCP: Myrna Mejia MD Contact Information Family Contact Information: Name: Marcos morgan(S.O) Pager: Fax: DC Needs Assessment Current Outpt/Agency/Support Groups: infusion therapy, outpatient (specify) Community Agency Name: [facility] Anticipated Changes Related to Illness: none Concerns to be Addressed: adjustment to diagnosis/illness concerns Services Anticipated at Discharge: education services Equipment Used at Home: none Equipment Needed after Discharge: Durable Medical Equipment Provider: Pharmacy/Medication Needs: ([facility] in [facility]) Transportation Needs: car Initial Plan Anticipated Discharge Disposition: home Expected DC Date: yes Steps Taken Toward Discharge: Next Steps: Notes: Met with patient at bedside to discuss discharge plan and needs. Introduced myself a nd explained my role in discharge planning. Pt will new diagnosis of B Cell lymphoma admitte d for first cycle of chemotherapy. Pt lives with his S.O and 2 kids in [place], [place]. Pt is currently not working. Electronically signed: Rachna Nolan RN 04/09/2020 10:48 AM PDT lan of Lauren Fang RD - 04/09/2020 10:18 AM PDTFormatting of this note might be different f rom the original. 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 Diet Experience Self-Selected Diet: Pt reports good appetite, states he usually eats 2-3 meals per day (kimberly etimes skips breakfast), does not follow any diets or avoid any foods. Pt reports a few weeks of decreased appetite and intake (~75% of usual intake) back in /November 2019 - but states appetite is back to normal now. Fluid/Beverage Intake Oral Fluids Amount: Ad fiordaliza Food Intake Type of Food/Meals: General Diet Amount of Food: Pt reports eating 'good' breakfast this AM. Nutritionally Relevant Medications NS@120mL/hr Nutrition-Focused Physical Findings Digestive System (Mouth to Rectum): BM on 04/08 Anthropometrics Admit Weight: 88.1 kg, 113% IBW and BMI of 27.1. Oldest weight on record from 03/20/2020 recorded as 86 kg indicates stable weight over the l ast month. Pt reports weight of 99 kg (218 lbs) from late September 2019 which would indicate significan t loss of 10.9 kg (11%) within 6.5 months. Biochemical Data, Medical Test, and Procedures Recent Labs 04/09/20 0317 NA 138 K 4.1 GLU 84 BUN 23 CREA 0.81 PHOS 4.7 MG 1.9 Food and Nutrition Knowledge Briefly discussed potential side effects of chemotherapy treatment including poor appetitiv e, changes in taste or smell, chewing or swallowing difficulties, nausea and vomiting, diarr hea or constipation. Estimated Energy Needs 5769-7035 kcal/day (25-30 kcal/kg per 88.1 kg admit wt) Estimated Protein Needs 106-132 g/day (1.2-1.5 g/kg per 88.1 kg admit wt) Nutrition Diagnosis Unintended weight loss related to catabolic illness (large B cell lymphoma) as evidenced by 11% weight loss in 6.5 months Recommendations General Diet Encourage intake of nutrient-dense, protein-rich food choices with goal to consume >70% of meals and snacks Oral nutrition supplements available PRN if intake inadequate Monitor diet tolerance, adequacy of intake, weight trend, labs, hydration status, and stool ing patterns. Nutritional Risk and Follow-Up Level of Risk: Moderate Required Follow Up: 5 days(M; 04/14) Lauren Barker MS-MPH, RDN 04/09/2020 10:18 AM PDT lan of Care - Romeo, Xochitl Mohan RN - 04/08/2020 10:10 PM PDT Problem: Adult Inpatient Plan of Care Goal: Plan of Care Review Outcome: Ongoing, progressing Xochitl Walters RN P DTdocumented in this encounter Plan of Treatment +--------+ + + + + | Date | Type | Specialty | Care Team | Description | +--------+ + + + + | 06/29/ | Appointment | Infusion Therapy | Wilton Jeff MD | | | 2019 | | | [address] | | | | | | [place] | | | | | | [address] | | | | | | | | +--------+ + + + + | 06/29/ | Office | Oncology | Wilton Jeff MD | | 2019 | Visit | | [address] | | | | | | [place] | | | | | | [address] | | | | | | | | | | | | Marilou Mcmullen, | | | | | | [address] | [address] | | | | | | [place] [address] | | | | | | [phone] | | | | | | | | +--------+ + + + + | 06/29/ | Appointment | Infusion Therapy | Wilton Jeff MD | | | 2019 | | | [address] | | | | | | [place] | | | | | | [address] | | | | | | | | +--------+ + + + + | 07/14/ | Office | Otolaryngology | She Huang | | | 2019 | Visit | | DO Sophia Canela | | | | | | [address] | | | | | | [place] [address] | | | | | | [phone] | | | | | | | | +--------+ + + + + | 07/20/ | Appointment | Infusion Therapy | Wilton Jeff MD | | | 2019 | | | [address] | | | | | | [place] | | | | | | [address] | | | | | | | | +--------+ + + + + | 07/20/ | Office | Oncology | Wilton Jeff MD | | | 2019 | Visit | | [address] | | | | | | [place] | | | | | | [address] | | | | | | | | +--------+ + + + + | 07/20/ | Appointment | Infusion Therapy | Wilton Jeff MD | | | 2019 | | | [address] | | | | | | [place] | | | | | | [address] | | | | | | | | +--------+ + + + + | 08/17/ | Appointment | Infusion Therapy | Wilton Jeff MD | | | 2019 | | | [address] | | | | | | [place] | | | | | | [address] | | | | | | | | +--------+ + + + + | 08/17/ | Office | Oncology | Wilton Jeff MD | | | 2019 | Visit | | [address] | | | | | | [place] | | | | | | [address] | | | | | | | | +--------+ + + + + documented as of this encounter Procedures + +--------+ + + + | Procedure Name | Priori | Date/Time | Associated Diagnosis | Comments | | | ty | | | | + +--------+ + + + | CBC WITH | Routin | 04/13/2020 | | Results for this | | DIFFERENTIAL | e | 3:21 AM | | procedure are in the | | | | PDT | | results section. | + +--------+ + + + | COMPREHENSIVE | Routin | 04/13/2020 | | Results for this | | METABOLIC PANEL | e | 3:21 AM | | procedure are in the | | | | PDT | | results section. | + +--------+ + + + | CBC WITH | Routin | 04/12/2020 | | Results for this | | DIFFERENTIAL | e | 4:36 AM | | procedure are in the | | | | PDT | | results section. | + +--------+ + + + | COMPREHENSIVE | Routin | 04/12/2020 | | Results for this | | METABOLIC PANEL | e | 4:36 AM | | procedure are in the | | | | PDT | | results section. | + +--------+ + + + | CBC WITH | Routin | 04/11/2020 | | Results for this | | DIFFERENTIAL | e | 3:59 AM | | procedure are in the | | | | PDT | | results section. | + +--------+ + + + | URIC ACID | Routin | 04/11/2020 | | Results for this | | | e | 3:59 AM | | procedure are in the | | | | PDT | | results section. | + +--------+ + + + | COMPREHENSIVE | Routin | 04/11/2020 | | Results for this | | METABOLIC PANEL | e | 3:59 AM | | procedure are in the | | | | PDT | | results section. | + +--------+ + + + | CBC WITH | Routin | 04/10/2020 | | Results for this | | DIFFERENTIAL | e | 3:41 AM | | procedure are in the | | | | PDT | | results section. | + +--------+ + + + | URIC ACID | Routin | 04/10/2020 | | Results for this | | | e | 3:41 AM | | procedure are in the | | | | PDT | | results section. | + +--------+ + + + | COMPREHENSIVE | Routin | 04/10/2020 | | Results for this | | METABOLIC PANEL | e | 3:41 AM | | procedure are in the | | | | PDT | | results section. | + +--------+ + + + | CBC WITH | Routin | 04/09/2020 | | Results for this | | DIFFERENTIAL | e | 3:17 AM | | procedure are in the | | | | PDT | | results section. | + +--------+ + + + | URIC ACID | Routin | 04/09/2020 | | Results for this | | | e | 3:17 AM | | procedure are in the | | | | PDT | | results section. | + +--------+ + + + | PHOSPHORUS | Routin | 04/09/2020 | | Results for this | | | e | 3:17 AM | | procedure are in the | | | | PDT | | results section. | + +--------+ + + + | MAGNESIUM | Routin | 04/09/2020 | | Results for this | | | e | 3:17 AM | | procedure are in the | | | | PDT | | results section. | + +--------+ + + + | COMPREHENSIVE | Routin | 04/09/2020 | | Results for this | | METABOLIC PANEL | e | 3:17 AM | | procedure are in the | | | | PDT | | results section. | + +--------+ + + + documented in this encounter Results Comprehensive Metabolic Panel (04/13/2020 3:21 AM PDT) + + + + + + | Component | Value | Ref Range | Performed | Pathologist | | | | | At | Signature | + + + + + + | Na | 137 | 135 - 145 | [facility] | | | | | mmol/L | LABORATORY | | + + + + + + | K | 3.5 | 3.5 - 4.9 | [facility] | | | | | mmol/L | LABORATORY | | + + + + + + | Cl | 103 | 99 - 109 mmol/L | [facility] | | | | | | LABORATORY | | + + + + + + | CO2 | 29 | 23 - 32 mmol/L | [facility] | | | | | | LABORATORY | | + + + + + + | Anion Gap | 9 | 5 - 20 mmol/L | [facility] | | | | | | LABORATORY | | + + + + + + | Glucose | 87 | 65 - 99 mg/dL | [facility] | | | | | | LABORATORY | | + + + + + + | BUN | 16 | 8 - 25 mg/dL | [facility] | | | | | | LABORATORY | | + + + + + + | Creatinine | 0.70 | 0.70 - 1.30 | [facility] | | | | | mg/dL | LABORATORY | | + + + + + + | BUN/Creatin | 23 | | [facility] | | | ine Ratio | | | LABORATORY | | + + + + + + | Calcium | 9.0 | 8.5 - 10.5 | [facility] | | | | | mg/dL | LABORATORY | | + + + + + + | Protein, | 5.6 (L) | 6.3 - 8.2 g/dL | [facility] | | | Total | | | LABORATORY | | + + + + + + | Albumin | 3.7 | 3.6 - 5.0 g/dL | [facility] | | | | | | LABORATORY | | + + + + + + | Globulin | 1.9 | 1.3 - 4.9 g/dL | [facility] | | | | | | LABORATORY | | + + + + + + | A/G Ratio | 1.9 | 1.0 - 2.4 | [facility] | | | | | | LABORATORY | | + + + + + + | BILIRUBIN, | 0.7 | 0.1 - 1.5 mg/dL | [facility] | | | TOTAL | | | LABORATORY | | + + + + + + | ALK PHOS | 64 | 35 - 115 U/L | [facility] | | | | | | LABORATORY | | + + + + + + | AST | 23 | 10 - 45 U/L | [facility] | | | | | | LABORATORY | | + + + + + + | ALT | 59 | 10 - 65 U/L | [facility] | | | | | | LABORATORY | | + + + + + + | Estimated | >60Comment: GFR <60: | >60 | [facility] | | | GFR | CHRONIC KIDNEY DISEASE, | mL/min/1.73m2 | LABORATORY | | | | IF FOUND OVER A 3 MONTH | | | | | | PERIOD.GFR <15: KIDNEY | | | | | | FAILURE.FOR | | | | | | AMERICANS, MULTIPLY THE | | | | | | CALCULATED GFR BY | | | | | | 1.210.This eGFR is | | | | | | calculated using the | | | | | | MDRD IDMS traceable | | | | | | equation.Testing | | | | | | performed at [facility];[address] | | | | | | [facility];[place], [place] | | | | | | [address] | | | | + + + + + + + + | Specimen | + + | Blood | + + + + + + + | Performing | Address | City/State/Zipcode | Phone Number | | Organization | | | | + + + + + | [facility] | [address] | [place] [address] | [phone] | + + + + + CBC with Differential (04/13/2020 3:21 AM PDT) + + + + + + | Component | Value | Ref Range | Performed | Pathologist | | | | | At | Signature | + + + + + + | WBC | 7.97 | 3.80 - 11.00 | [facility] | | | | | K/uL | LABORATORY | | + + + + + + | Red Blood | 3.85 (L) | 4.20 - 5.70 | [facility] | | | Cells | | M/uL | LABORATORY | | + + + + + + | Hemoglobin | 11.0 (L) | 13.2 - 17.0 | [facility] | | | | | g/dL | LABORATORY | | + + + + + + | Hematocrit | 33.5 (L) | 39.0 - 50.0 % | [facility] | | | | | | LABORATORY | | + + + + + + | MCV | 87.0 | 80.0 - 100.0 fl | [facility] | | | | | | LABORATORY | | + + + + + + | MCH | 28.6 | 27.0 - 34.0 pg | [facility] | | | | | | LABORATORY | | + + + + + + | MCHC | 32.8 | 32.0 - 35.5 | [facility] | | | | | g/dL | LABORATORY | | + + + + + + | RDW-SD | 42.0 | 37 - 53 fl | [facility] | | | | | | LABORATORY | | + + + + + + | Platelet | 478 (H) | 150 - 400 K/uL | [facility] | | | Count | | | LABORATORY | | + + + + + + | MPV | 9.0Comment: NO NORMAL | fl | [facility] | | | | RANGE ESTABLISHED | | LABORATORY | | + + + + + + | Diff Type | AUTOMATED | | [facility] | | | | | | LABORATORY | | + + + + + + | % nRBC | 0.0 | 0 /100WBC | [facility] | | | | | | LABORATORY | | + + + + + + | % | 80.80 | % | [facility] | | | Neutrophils | | | LABORATORY | | + + + + + + | IMMATURE | 0.60 | % | [facility] | | | GRANULOCYTE | | | LABORATORY | | + + + + + + | % | 14.20 | % | [facility] | | | Lymphocytes | | | LABORATORY | | + + + + + + | Monocyte % | 4.30 | % | [facility] | | | | | | LABORATORY | | + + + + + + | Eosinophils | 0.10 | % | [facility] | | | % | | | LABORATORY | | + + + + + + | Basophils % | 0.00 | % | [facility] | | | | | | LABORATORY | | + + + + + + | Neutrophils | 6.44 | 1.90 - 7.40 | [facility] | | | , Absolute | | K/uL | LABORATORY | | + + + + + + | IMMATURE | 0.05Comment: NOTE NEW | 0.00 - 0.07 | [facility] | | | GRANS AB | REFERENCE RANGE | K/uL | LABORATORY | | + + + + + + | Absolute | 1.13 | 1.00 - 3.90 | [facility] | | | Lymphocytes | | K/uL | LABORATORY | | + + + + + + | Absolute | 0.34 | 0.00 - 0.80 | [facility] | | | Monocytes | | K/uL | LABORATORY | | + + + + + + | Eosinophils | 0.01 | 0.00 - 0.50 | [facility] | | | , Absolute | | K/uL | LABORATORY | | + + + + + + | Basophils, | 0.00Comment: Testing | 0.00 - 0.10 | [facility] | | | Absolute | performed at [facility];[address] | K/uL | LABORATORY | | | | [address];[place] | | | | | | [address] | | | | + + + + + + + + | Specimen | + + | Blood | + + + + + + + | Performing | Address | City/State/Zipcode | Phone Number | | Organization | | | | + + + + + | [facility] | [address] | [place] [address] | [phone] | + + + + + CBC with Differential (04/12/2020 4:36 AM PDT) + + + + + + | Component | Value | Ref Range | Performed | Pathologist | | | | | At | Signature | + + + + + + | WBC | 9.93 | 3.80 - 11.00 | [facility] | | | | | K/uL | LABORATORY | | + + + + + + | Red Blood | 4.05 (L) | 4.20 - 5.70 | [facility] | | | Cells | | M/uL | LABORATORY | | + + + + + + | Hemoglobin | 11.3 (L) | 13.2 - 17.0 | [facility] | | | | | g/dL | LABORATORY | | + + + + + + | Hematocrit | 35.2 (L) | 39.0 - 50.0 % | [facility] | | | | | | LABORATORY | | + + + + + + | MCV | 86.9 | 80.0 - 100.0 fl | [facility] | | | | | | LABORATORY | | + + + + + + | MCH | 27.9 | 27.0 - 34.0 pg | [facility] | | | | | | LABORATORY | | + + + + + + | MCHC | 32.1 | 32.0 - 35.5 | [facility] | | | | | g/dL | LABORATORY | | + + + + + + | RDW-SD | 42.5 | 37 - 53 fl | [facility] | | | | | | LABORATORY | | + + + + + + | Platelet | 519 (H) | 150 - 400 K/uL | [facility] | | | Count | | | LABORATORY | | + + + + + + | MPV | 9.5Comment: NO NORMAL | fl | [facility] | | | | RANGE ESTABLISHED | | LABORATORY | | + + + + + + | Diff Type | AUTOMATED | | [facility] | | | | | | LABORATORY | | + + + + + + | % nRBC | 0.0 | 0 /100WBC | [facility] | | | | | | LABORATORY | | + + + + + + | % | 84.00 | % | [facility] | | | Neutrophils | | | LABORATORY | | + + + + + + | IMMATURE | 1.10 | % | [facility] | | | GRANULOCYTE | | | LABORATORY | | + + + + + + | % | 9.40 | % | [facility] | | | Lymphocytes | | | LABORATORY | | + + + + + + | Monocyte % | 5.30 | % | [facility] | | | | | | LABORATORY | | + + + + + + | Eosinophils | 0.10 | % | [facility] | | | % | | | LABORATORY | | + + + + + + | Basophils % | 0.10 | % | [facility] | | | | | | LABORATORY | | + + + + + + | Neutrophils | 8.34 (H) | 1.90 - 7.40 | [facility] | | | , Absolute | | K/uL | LABORATORY | | + + + + + + | IMMATURE | 0.11 (H)Comment: NOTE | 0.00 - 0.07 | [facility] | | | GRANS AB | NEW REFERENCE RANGE | K/uL | LABORATORY | | + + + + + + | Absolute | 0.93 (L) | 1.00 - 3.90 | [facility] | | | Lymphocytes | | K/uL | LABORATORY | | + + + + + + | Absolute | 0.53 | 0.00 - 0.80 | [facility] | | | Monocytes | | K/uL | LABORATORY | | + + + + + + | Eosinophils | 0.01 | 0.00 - 0.50 | [facility] | | | , Absolute | | K/uL | LABORATORY | | + + + + + + | Basophils, | 0.01Comment: Testing | 0.00 - 0.10 | [facility] | | | Absolute | performed at [facility], [address] | K/uL | LABORATORY | | | | [address], | | | | | | [place] [address] | | | | + + + + + + + + | Specimen | + + | Blood | + + + + + + + | Performing | Address | City/State/Zipcode | Phone Number | | Organization | | | | + + + + + | [facility] | [address] | [place] [address] | [phone] | + + + + + Comprehensive Metabolic Panel (04/12/2020 4:36 AM PDT) + + + + + + | Component | Value | Ref Range | Performed | Pathologist | | | | | At | Signature | + + + + + + | Na | 137 | 135 - 145 | [facility] | | | | | mmol/L | LABORATORY | | + + + + + + | K | 3.9 | 3.5 - 4.9 | [facility] | | | | | mmol/L | LABORATORY | | + + + + + + | Cl | 104 | 99 - 109 mmol/L | [facility] | | | | | | LABORATORY | | + + + + + + | CO2 | 27 | 23 - 32 mmol/L | [facility] | | | | | | LABORATORY | | + + + + + + | Anion Gap | 10 | 5 - 20 mmol/L | [facility] | | | | | | LABORATORY | | + + + + + + | Glucose | 85 | 65 - 99 mg/dL | [facility] | | | | | | LABORATORY | | + + + + + + | BUN | 17 | 8 - 25 mg/dL | [facility] | | | | | | LABORATORY | | + + + + + + | Creatinine | 0.70 | 0.70 - 1.30 | [facility] | | | | | mg/dL | LABORATORY | | + + + + + + | BUN/Creatin | 24 | | [facility] | | | ine Ratio | | | LABORATORY | | + + + + + + | Calcium | 8.4 (L) | 8.5 - 10.5 | [facility] | | | | | mg/dL | LABORATORY | | + + + + + + | Protein, | 6.0 (L) | 6.3 - 8.2 g/dL | [facility] | | | Total | | | LABORATORY | | + + + + + + | Albumin | 2.4 (L) | 3.6 - 5.0 g/dL | [facility] | | | | | | LABORATORY | | + + + + + + | Globulin | 3.6 | 1.3 - 4.9 g/dL | [facility] | | | | | | LABORATORY | | + + + + + + | A/G Ratio | 0.7 (L) | 1.0 - 2.4 | [facility] | | | | | | LABORATORY | | + + + + + + | BILIRUBIN, | 0.2 | 0.1 - 1.5 mg/dL | [facility] | | | TOTAL | | | LABORATORY | | + + + + + + | ALK PHOS | 61 | 35 - 115 U/L | [facility] | | | | | | LABORATORY | | + + + + + + | AST | 23 | 10 - 45 U/L | [facility] | | | | | | LABORATORY | | + + + + + + | ALT | 64 | 10 - 65 U/L | [facility] | | | | | | LABORATORY | | + + + + + + | Estimated | >60Comment: GFR <60: | >60 | [facility] | | | GFR | CHRONIC KIDNEY DISEASE, | mL/min/1.73m2 | LABORATORY | | | | IF FOUND OVER A 3 MONTH | | | | | | PERIOD.GFR <15: KIDNEY | | | | | | FAILURE.FOR | | | | | | AMERICANS, MULTIPLY THE | | | | | | CALCULATED GFR BY | | | | | | 1.210.This eGFR is | | | | | | calculated using the | | | | | | MDRD IDMS traceable | | | | | | equation.Testing | | | | | | performed at [facility], [address] | | | | | [facility], | | | | | | [place] [address] | | | | + + + + + + + + | Specimen | + + | Blood | + + + + + + + | Performing | Address | City/State/Zipcode | Phone Number | | Organization | | | | + + + + + | [facility] | [address] | [place] [address] | [phone] | + + + + + Uric Acid (04/11/2020 3:59 AM PDT) + + + + + + | Component | Value | Ref Range | Performed | Pathologist | | | | | At | Signature | + + + + + + | Uric Acid | 2.3 (L)Comment: Testing | 3.2 - 8.6 mg/dL | [facility] | | | | performed at [facility];[address] | | LABORATORY | | | | [address];[place] | | | | | | [address] | | | | + + + + + + + + | Specimen | + + | Blood | + + + + + + + | Performing | Address | City/State/Zipcode | Phone Number | | Organization | | | | + + + + + | [facility] | [address] | [place] [address] | [phone] | + + + + + CBC with Differential (04/11/2020 3:59 AM PDT) + + + + + + | Component | Value | Ref Range | Performed | Pathologist | | | | | At | Signature | + + + + + + | WBC | 17.68 (H) | 3.80 - 11.00 | [facility] | | | | | K/uL | LABORATORY | | + + + + + + | Red Blood | 4.12 (L) | 4.20 - 5.70 | [facility] | | | Cells | | M/uL | LABORATORY | | + + + + + + | Hemoglobin | 11.5 (L) | 13.2 - 17.0 | [facility] | | | | | g/dL | LABORATORY | | + + + + + + | Hematocrit | 36.2 (L) | 39.0 - 50.0 % | [facility] | | | | | | LABORATORY | | + + + + + + | MCV | 87.9 | 80.0 - 100.0 fl | [facility] | | | | | | LABORATORY | | + + + + + + | MCH | 27.9 | 27.0 - 34.0 pg | [facility] | | | | | | LABORATORY | | + + + + + + | MCHC | 31.8 (L) | 32.0 - 35.5 | [facility] | | | | | g/dL | LABORATORY | | + + + + + + | RDW-SD | 42.8 | 37 - 53 fl | [facility] | | | | | | LABORATORY | | + + + + + + | Platelet | 611 (H) | 150 - 400 K/uL | [facility] | | | Count | | | LABORATORY | | + + + + + + | MPV | 9.0Comment: NO NORMAL | fl | [facility] | | | | RANGE ESTABLISHED | | LABORATORY | | + + + + + + | Diff Type | AUTOMATED | | [facility] | | | | | | LABORATORY | | + + + + + + | % nRBC | 0.0 | 0 /100WBC | [facility] | | | | | | LABORATORY | | + + + + + + | % | 87.30 | % | [facility] | | | Neutrophils | | | LABORATORY | | + + + + + + | IMMATURE | 1.70 | % | [facility] | | | GRANULOCYTE | | | LABORATORY | | + + + + + + | % | 6.00 | % | [facility] | | | Lymphocytes | | | LABORATORY | | + + + + + + | Monocyte % | 4.90 | % | [facility] | | | | | | LABORATORY | | + + + + + + | Eosinophils | 0.00 | % | [facility] | | | % | | | LABORATORY | | + + + + + + | Basophils % | 0.10 | % | [facility] | | | | | | LABORATORY | | + + + + + + | Neutrophils | 15.45 (H) | 1.90 - 7.40 | [facility] | | | , Absolute | | K/uL | LABORATORY | | + + + + + + | IMMATURE | 0.30 (H)Comment: NOTE | 0.00 - 0.07 | [facility] | | | GRANS AB | NEW REFERENCE RANGE | K/uL | LABORATORY | | + + + + + + | Absolute | 1.06 | 1.00 - 3.90 | [facility] | | | Lymphocytes | | K/uL | LABORATORY | | + + + + + + | Absolute | 0.86 (H) | 0.00 - 0.80 | [facility] | | | Monocytes | | K/uL | LABORATORY | | + + + + + + | Eosinophils | 0.00 | 0.00 - 0.50 | [facility] | | | , Absolute | | K/uL | LABORATORY | | + + + + + + | Basophils, | 0.01Comment: Testing | 0.00 - 0.10 | [facility] | | | Absolute | performed at [facility];[address] | K/uL | LABORATORY | | | | [address];[place], [place] | | | | | | [address] | | | | + + + + + + + + | Specimen | + + | Blood | + + + + + + + | Performing | Address | City/State/Zipcode | Phone Number | | Organization | | | | + + + + + | [facility] | [address] | [place] [address] | [phone] | + + + + + Comprehensive Metabolic Panel (04/11/2020 3:59 AM PDT) + + + + + + | Component | Value | Ref Range | Performed | Pathologist | | | | | At | Signature | + + + + + + | Na | 139 | 135 - 145 | [facility] | | | | | mmol/L | LABORATORY | | + + + + + + | K | 4.1 | 3.5 - 4.9 | [facility] | | | | | mmol/L | LABORATORY | | + + + + + + | Cl | 106 | 99 - 109 mmol/L | [facility] | | | | | | LABORATORY | | + + + + + + | CO2 | 28 | 23 - 32 mmol/L | [facility] | | | | | | LABORATORY | | + + + + + + | Anion Gap | 9 | 5 - 20 mmol/L | [facility] | | | | | | LABORATORY | | + + + + + + | Glucose | 94 | 65 - 99 mg/dL | [facility] | | | | | | LABORATORY | | + + + + + + | BUN | 17 | 8 - 25 mg/dL | [facility] | | | | | | LABORATORY | | + + + + + + | Creatinine | 0.77 | 0.70 - 1.30 | [facility] | | | | | mg/dL | LABORATORY | | + + + + + + | BUN/Creatin | 22 | | [facility] | | | ine Ratio | | | LABORATORY | | + + + + + + | Calcium | 8.9 | 8.5 - 10.5 | [facility] | | | | | mg/dL | LABORATORY | | + + + + + + | Protein, | 5.6 (L) | 6.3 - 8.2 g/dL | [facility] | | | Total | | | LABORATORY | | + + + + + + | Albumin | 3.7 | 3.6 - 5.0 g/dL | [facility] | | | | | | LABORATORY | | + + + + + + | Globulin | 1.9 | 1.3 - 4.9 g/dL | [facility] | | | | | | LABORATORY | | + + + + + + | A/G Ratio | 1.9 | 1.0 - 2.4 | [facility] | | | | | | LABORATORY | | + + + + + + | BILIRUBIN, | 0.2 | 0.1 - 1.5 mg/dL | [facility] | | | TOTAL | | | LABORATORY | | + + + + + + | ALK PHOS | 63 | 35 - 115 U/L | [facility] | | | | | | LABORATORY | | + + + + + + | AST | 53 (H) | 10 - 45 U/L | [facility] | | | | | | LABORATORY | | + + + + + + | ALT | 67 (H) | 10 - 65 U/L | [facility] | | | | | | LABORATORY | | + + + + + + | Estimated | >60Comment: GFR <60: | >60 | [facility] | | | GFR | CHRONIC KIDNEY DISEASE, | mL/min/1.73m2 | LABORATORY | | | | IF FOUND OVER A 3 MONTH | | | | | | PERIOD.GFR <15: KIDNEY | | | | | | FAILURE.FOR | | | | | | AMERICANS, MULTIPLY THE | | | | | | CALCULATED GFR BY | | | | | | 1.210.This eGFR is | | | | | | calculated using the | | | | | | MDRD IDMS traceable | | | | | | equation.Testing | | | | | | performed at [facility];[address] | | | | | | [facility];[place], [place] | | | | | | [address] | | | | + + + + + + + + | Specimen | + + | Blood | + + + + + + + | Performing | Address | City/State/Zipcode | Phone Number | | Organization | | | | + + + + + | [facility] | [address] | [place] [address] | [phone] | + + + + + Uric Acid (04/10/2020 3:41 AM PDT) + + + + + + | Component | Value | Ref Range | Performed | Pathologist | | | | | At | Signature | + + + + + + | Uric Acid | 2.0 (L)Comment: Testing | 3.2 - 8.6 mg/dL | [facility] | | | | performed at [facility];[address] | | LABORATORY | | | | [address];[place] | | | | | | [address] | | | | + + + + + + + + | Specimen | + + | | + + + + + + + | Performing | Address | City/State/Zipcode | Phone Number | | Organization | | | | + + + + + | [facility] | [address] [facility] | [place] [address] | [phone] | + + + + + CBC with Differential (04/10/2020 3:41 AM PDT) + + + + + + | Component | Value | Ref Range | Performed | Pathologist | | | | | At | Signature | + + + + + + | WBC | 14.32 (H) | 3.80 - 11.00 | [facility] | | | | | K/uL | LABORATORY | | + + + + + + | Red Blood | 3.91 (L) | 4.20 - 5.70 | [facility] | | | Cells | | M/uL | LABORATORY | | + + + + + + | Hemoglobin | 11.3 (L) | 13.2 - 17.0 | [facility] | | | | | g/dL | LABORATORY | | + + + + + + | Hematocrit | 34.4 (L) | 39.0 - 50.0 % | [facility] | | | | | | LABORATORY | | + + + + + + | MCV | 88.0 | 80.0 - 100.0 fl | [facility] | | | | | | LABORATORY | | + + + + + + | MCH | 28.9 | 27.0 - 34.0 pg | [facility] | | | | | | LABORATORY | | + + + + + + | MCHC | 32.8 | 32.0 - 35.5 | [facility] | | | | | g/dL | LABORATORY | | + + + + + + | RDW-SD | 42.7 | 37 - 53 fl | [facility] | | | | | | LABORATORY | | + + + + + + | Platelet | 522 (H) | 150 - 400 K/uL | [facility] | | | Count | | | LABORATORY | | + + + + + + | MPV | 9.0Comment: NO NORMAL | fl | [facility] | | | | RANGE ESTABLISHED | | LABORATORY | | + + + + + + | Diff Type | AUTOMATED | | [facility] | | | | | | LABORATORY | | + + + + + + | % nRBC | 0.0 | 0 /100WBC | [facility] | | | | | | LABORATORY | | + + + + + + | % | 90.70 | % | [facility] | | | Neutrophils | | | LABORATORY | | + + + + + + | IMMATURE | 1.50 | % | [facility] | | | GRANULOCYTE | | | LABORATORY | | + + + + + + | % | 5.70 | % | [facility] | | | Lymphocytes | | | LABORATORY | | + + + + + + | Monocyte % | 2.00 | % | [facility] | | | | | | LABORATORY | | + + + + + + | Eosinophils | 0.00 | % | [facility] | | | % | | | LABORATORY | | + + + + + + | Basophils % | 0.10 | % | [facility] | | | | | | LABORATORY | | + + + + + + | Neutrophils | 12.99 (H) | 1.90 - 7.40 | [facility] | | | , Absolute | | K/uL | LABORATORY | | + + + + + + | IMMATURE | 0.21 (H)Comment: NOTE | 0.00 - 0.07 | [facility] | | | GRANS AB | NEW REFERENCE RANGE | K/uL | LABORATORY | | + + + + + + | Absolute | 0.81 (L) | 1.00 - 3.90 | [facility] | | | Lymphocytes | | K/uL | LABORATORY | | + + + + + + | Absolute | 0.29 | 0.00 - 0.80 | [facility] | | | Monocytes | | K/uL | LABORATORY | | + + + + + + | Eosinophils | 0.00 | 0.00 - 0.50 | [facility] | | | , Absolute | | K/uL | LABORATORY | | + + + + + + | Basophils, | 0.02Comment: Testing | 0.00 - 0.10 | [facility] | | | Absolute | performed at [facility];[address] | K/uL | LABORATORY | | | | [address];[place], [place] | | | | | | [address] | | | | + + + + + + + + | Specimen | + + | Blood | + + + + + + + | Performing | Address | City/State/Zipcode | Phone Number | | Organization | | | | + + + + + | [facility] | [address] | [place] [address] | [phone] | + + + + + Comprehensive Metabolic Panel (04/10/2020 3:41 AM PDT) + + + + + + | Component | Value | Ref Range | Performed | Pathologist | | | | | At | Signature | + + + + + + | Na | 139 | 135 - 145 | [facility] | | | | | mmol/L | LABORATORY | | + + + + + + | K | 4.3 | 3.5 - 4.9 | [facility] | | | | | mmol/L | LABORATORY | | + + + + + + | Cl | 104 | 99 - 109 mmol/L | [facility] | | | | | | LABORATORY | | + + + + + + | CO2 | 27 | 23 - 32 mmol/L | [facility] | | | | | | LABORATORY | | + + + + + + | Anion Gap | 12 | 5 - 20 mmol/L | [facility] | | | | | | LABORATORY | | + + + + + + | Glucose | 115 (H) | 65 - 99 mg/dL | [facility] | | | | | | LABORATORY | | + + + + + + | BUN | 17 | 8 - 25 mg/dL | [facility] | | | | | | LABORATORY | | + + + + + + | Creatinine | 0.74 | 0.70 - 1.30 | [facility] | | | | | mg/dL | LABORATORY | | + + + + + + | BUN/Creatin | 23 | | [facility] | | | ine Ratio | | | LABORATORY | | + + + + + + | Calcium | 9.4 | 8.5 - 10.5 | [facility] | | | | | mg/dL | LABORATORY | | + + + + + + | Protein, | 6.1 (L) | 6.3 - 8.2 g/dL | [facility] | | | Total | | | LABORATORY | | + + + + + + | Albumin | 4.0 | 3.6 - 5.0 g/dL | [facility] | | | | | | LABORATORY | | + + + + + + | Globulin | 2.1 | 1.3 - 4.9 g/dL | [facility] | | | | | | LABORATORY | | + + + + + + | A/G Ratio | 1.9 | 1.0 - 2.4 | [facility] | | | | | | LABORATORY | | + + + + + + | BILIRUBIN, | 0.2 | 0.1 - 1.5 mg/dL | [facility] | | | TOTAL | | | LABORATORY | | + + + + + + | ALK PHOS | 70 | 35 - 115 U/L | [facility] | | | | | | LABORATORY | | + + + + + + | AST | 21 | 10 - 45 U/L | [facility] | | | | | | LABORATORY | | + + + + + + | ALT | 23 | 10 - 65 U/L | [facility] | | | | | | LABORATORY | | + + + + + + | Estimated | >60Comment: GFR <60: | >60 | [facility] | | | GFR | CHRONIC KIDNEY DISEASE, | mL/min/1.73m2 | LABORATORY | | | | IF FOUND OVER A 3 MONTH | | | | | | PERIOD.GFR <15: KIDNEY | | | | | | FAILURE.FOR | | | | | | AMERICANS, MULTIPLY THE | | | | | | CALCULATED GFR BY | | | | | | 1.210.This eGFR is | | | | | | calculated using the | | | | | | MDRD IDMS traceable | | | | | | equation.Testing | | | | | | performed at [facility];[address] | | | | | | [facility];[place], [place] | | | | | | [address] | | | | + + + + + + + + | Specimen | + + | Blood | + + + + + + + | Performing | Address | City/State/Zipcode | Phone Number | | Organization | | | | + + + + + | [facility] | [address] | [place] [address] | [phone] | + + + + + Uric Acid (04/09/2020 3:17 AM PDT) + + + + + + | Component | Value | Ref Range | Performed | Pathologist | | | | | At | Signature | + + + + + + | Uric Acid | 3.0 (L)Comment: Testing | 3.2 - 8.6 mg/dL | [facility] | | | | performed at [facility];[address] | | LABORATORY | | | | [address];[place] | | | | | | [address] | | | | + + + + + + + + | Specimen | + + | Blood | + + + + + + + | Performing | Address | City/State/Zipcode | Phone Number | | Organization | | | | + + + + + | [facility] | [address] | [place] [address] | [phone] | + + + + + Phosphorus (04/09/2020 3:17 AM PDT) + + + + + + | Component | Value | Ref Range | Performed | Pathologist | | | | | At | Signature | + + + + + + | Phosphorus | 4.7Comment: Testing | 2.3 - 4.8 mg/dL | [facility] | | | | performed at [facility];[address] | | LABORATORY | | | | [address];[place] | | | | | | [address] | | | | + + + + + + + + | Specimen | + + | Blood | + + + + + + + | Performing | Address | City/State/Zipcode | Phone Number | | Organization | | | | + + + + + | [facility] | [address] | [place] [address] | [phone] | + + + + + Magnesium (04/09/2020 3:17 AM PDT) + + + + + + | Component | Value | Ref Range | Performed | Pathologist | | | | | At | Signature | + + + + + + | Magnesium | 1.9Comment: Testing | 1.7 - 2.4 mg/dL | [facility] | | | | performed at [facility];[address] | | LABORATORY | | | | [address];[place] | | | | | | [address] | | | | + + + + + + + + | Specimen | + + | Blood | + + + + + + + | Performing | Address | City/State/Zipcode | Phone Number | | Organization | | | | + + + + + | [facility] | [address] | [place] [address] | [phone] | + + + + + CBC with Differential (04/09/2020 3:17 AM PDT) + + + + + + | Component | Value | Ref Range | Performed | Pathologist | | | | | At | Signature | + + + + + + | WBC | 8.97 | 3.80 - 11.00 | [facility] | | | | | K/uL | LABORATORY | | + + + + + + | Red Blood | 3.74 (L) | 4.20 - 5.70 | [facility] | | | Cells | | M/uL | LABORATORY | | + + + + + + | Hemoglobin | 10.6 (L) | 13.2 - 17.0 | [facility] | | | | | g/dL | LABORATORY | | + + + + + + | Hematocrit | 33.2 (L) | 39.0 - 50.0 % | [facility] | | | | | | LABORATORY | | + + + + + + | MCV | 88.8 | 80.0 - 100.0 fl | [facility] | | | | | | LABORATORY | | + + + + + + | MCH | 28.3 | 27.0 - 34.0 pg | [facility] | | | | | | LABORATORY | | + + + + + + | MCHC | 31.9 (L) | 32.0 - 35.5 | [facility] | | | | | g/dL | LABORATORY | | + + + + + + | RDW-SD | 44.5 | 37 - 53 fl | [facility] | | | | | | LABORATORY | | + + + + + + | Platelet | 481 (H) | 150 - 400 K/uL | [facility] | | | Count | | | LABORATORY | | + + + + + + | MPV | 9.2Comment: NO NORMAL | fl | [facility] | | | | RANGE ESTABLISHED | | LABORATORY | | + + + + + + | Diff Type | AUTOMATED | | [facility] | | | | | | LABORATORY | | + + + + + + | % nRBC | 0.0 | 0 /100WBC | [facility] | | | | | | LABORATORY | | + + + + + + | % | 70.40 | % | [facility] | | | Neutrophils | | | LABORATORY | | + + + + + + | IMMATURE | 3.60 | % | [facility] | | | GRANULOCYTE | | | LABORATORY | | + + + + + + | % | 12.00 | % | [facility] | | | Lymphocytes | | | LABORATORY | | + + + + + + | Monocyte % | 11.40 | % | [facility] | | | | | | LABORATORY | | + + + + + + | Eosinophils | 2.00 | % | [facility] | | | % | | | LABORATORY | | + + + + + + | Basophils % | 0.60 | % | [facility] | | | | | | LABORATORY | | + + + + + + | Neutrophils | 6.32 | 1.90 - 7.40 | [facility] | | | , Absolute | | K/uL | LABORATORY | | + + + + + + | IMMATURE | 0.32 (H)Comment: NOTE | 0.00 - 0.07 | [facility] | | | GRANS AB | NEW REFERENCE RANGE | K/uL | LABORATORY | | + + + + + + | Absolute | 1.08 | 1.00 - 3.90 | [facility] | | | Lymphocytes | | K/uL | LABORATORY | | + + + + + + | Absolute | 1.02 (H) | 0.00 - 0.80 | [facility] | | | Monocytes | | K/uL | LABORATORY | | + + + + + + | Eosinophils | 0.18 | 0.00 - 0.50 | [facility] | | | , Absolute | | K/uL | LABORATORY | | + + + + + + | Basophils, | 0.05Comment: Testing | 0.00 - 0.10 | [facility] | | | Absolute | performed at [facility];[address] | K/uL | LABORATORY | | | | [address];[place] | | | | | | [address] | | | | + + + + + + + + | Specimen | + + | Blood | + + + + + + + | Performing | Address | City/State/Zipcode | Phone Number | | Organization | | | | + + + + + | [facility] | [address] | [place] [address] | [phone] | + + + + + Comprehensive Metabolic Panel (04/09/2020 3:17 AM PDT) + + + + + + | Component | Value | Ref Range | Performed | Pathologist | | | | | At | Signature | + + + + + + | Na | 138 | 135 - 145 | [facility] | | | | | mmol/L | LABORATORY | | + + + + + + | K | 4.1 | 3.5 - 4.9 | [facility] | | | | | mmol/L | LABORATORY | | + + + + + + | Cl | 102 | 99 - 109 mmol/L | [facility] | | | | | | LABORATORY | | + + + + + + | CO2 | 30 | 23 - 32 mmol/L | [facility] | | | | | | LABORATORY | | + + + + + + | Anion Gap | 10 | 5 - 20 mmol/L | [facility] | | | | | | LABORATORY | | + + + + + + | Glucose | 84 | 65 - 99 mg/dL | [facility] | | | | | | LABORATORY | | + + + + + + | BUN | 23 | 8 - 25 mg/dL | [facility] | | | | | | LABORATORY | | + + + + + + | Creatinine | 0.81 | 0.70 - 1.30 | [facility] | | | | | mg/dL | LABORATORY | | + + + + + + | BUN/Creatin | 28 | | [facility] | | | ine Ratio | | | LABORATORY | | + + + + + + | Calcium | 8.8 | 8.5 - 10.5 | [facility] | | | | | mg/dL | LABORATORY | | + + + + + + | Protein, | 5.4 (L) | 6.3 - 8.2 g/dL | [facility] | | | Total | | | LABORATORY | | + + + + + + | Albumin | 3.5 (L) | 3.6 - 5.0 g/dL | [facility] | | | | | | LABORATORY | | + + + + + + | Globulin | 1.9 | 1.3 - 4.9 g/dL | [facility] | | | | | | LABORATORY | | + + + + + + | A/G Ratio | 1.8 | 1.0 - 2.4 | [facility] | | | | | | LABORATORY | | + + + + + + | BILIRUBIN, | 0.2 | 0.1 - 1.5 mg/dL | [facility] | | | TOTAL | | | LABORATORY | | + + + + + + | ALK PHOS | 63 | 35 - 115 U/L | [facility] | | | | | | LABORATORY | | + + + + + + | AST | 14 | 10 - 45 U/L | [facility] | | | | | | LABORATORY | | + + + + + + | ALT | 16 | 10 - 65 U/L | [facility] | | | | | | LABORATORY | | + + + + + + | Estimated | >60Comment: GFR <60: | >60 | [facility] | | | GFR | CHRONIC KIDNEY DISEASE, | mL/min/1.73m2 | LABORATORY | | | | IF FOUND OVER A 3 MONTH | | | | | | PERIOD.GFR <15: KIDNEY | | | | | | FAILURE.FOR | | | | | | AMERICANS, MULTIPLY THE | | | | | | CALCULATED GFR BY | | | | | | 1.210.This eGFR is | | | | | | calculated using the | | | | | | MDRD IDMS traceable | | | | | | equation.Testing | | | | | | performed at [facility];[address] | | | | | | [facility];[place], [place] | | | | | | [address] | | | | + + + + + + + + | Specimen | + + | Blood | + + + + + + + | Performing | Address | City/State/Zipcode | Phone Number | | Organization | | | | + + + + + | [facility] | [address] | [place] [address] | [phone] | + + + + + documented in this encounter Visit Diagnoses + + | Diagnosis | + + | Large B-cell lymphoma (HCC) Other malignant lymphomas, unspecified site, extranodal | | and solid organ sites | + + | Admission for antineoplastic chemotherapy Encounter for antineoplastic chemotherapy | + + | 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) | + + | 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) | + + | SIRS (systemic inflammatory response syndrome) (HCC) Systemic inflammatory response | | syndrome, unspecified | + + documented in this encounter Administered Medications + +--------+ +--------+------+------+ | Medication Order | MAR | Action | Dose | Rate | Site | | | Action | Date | | | | + +--------+ +--------+------+------+ | acetaminophen (TYLENOL) tablet | Given | 04/10/20 | 650 mg | | | | 650 mg 650 mg, Oral, EVERY 4 | | 20 8:06 | | | | | HOURS PRN, Pain, or fever >= 38.6 | | AM PDT | | | | | C (101.5 F), Starting 04/08/20 | | | | | | | at 1911 | | | | | | + +--------+ +--------+------+------+ +-------+ +--------+---+---+ | Given | 04/09/20 | 650 mg | | | | | 20 2:00 | | | | | | PM PDT | | | | +-------+ +--------+---+---+ +---+---+ | | | +---+---+ + +-------+ +--------+---+---+ | acyclovir (ZOVIRAX) capsule 800 | Given | 04/13/20 | 800 mg | | | | mg 800 mg, Oral, 2 TIMES DAILY, | | 20 8:54 | | | | | First dose on Mon04/09/20 at | | AM PDT | | | | | 1415, Indications: HERPES ZOSTER | | | | | | | PREVENTION IN IMMUNOCOMPROMISED | | | | | | + +-------+ +--------+---+---+ +-------+ +--------+---+---+ | Given | 04/12/20 | 800 mg | | | | | 20 8:37 | | | | | | PM PDT | | | | +-------+ +--------+---+---+ | Given | 04/12/20 | 800 mg | | | | | 20 8:09 | | | | | | AM PDT | | | | +-------+ +--------+---+---+ + +---+ | | | + +---+ | albuterol 90 mcg/puff inhaler 2 | | | puff 2 puff, Inhalation, ONCE | | | PRN, Bronchospasm or hypoxemia, | | | Starting [facility] 04/09/20 at 0857, | | | [employer] [place] repeat x 1., | | + +---+ | | | + +---+ + +-------+ +--------+---+---+ | allopurinol (ZYLOPRIM) tablet | Given | 04/13/20 | 300 mg | | | | 300 mg 300 mg, Oral, DAILY, | | 20 8:53 | | | | | First dose on [facility] 04/09/20 at 0900 | | AM PDT | | | | + +-------+ +--------+---+---+ +-------+ +--------+---+---+ | Given | 04/12/20 | 300 mg | | | | | 20 8:09 | | | | | | AM PDT | | | | +-------+ +--------+---+---+ | Given | 04/11/20 | 300 mg | | | | | 20 8:24 | | | | | | AM PDT | | | | +-------+ +--------+---+---+ +---+---+ | | | +---+---+ + +-------+ +--------+---+---+ | aluminum & magnesium | Given | 04/13/20 | 15 mLs | | | | hydroxide-simethicone (MAALOX | | 20 1:21 | | | | | PLUS REGULAR STRENGTH) 200-200-20 | | PM PDT | | | | | mg/5 mL 5 mL, diphenhydrAMINE | | | | | | | (BENADRYL) 12.5 mg/5 mL 5 mL, | | | | | | | lidocaine (XYLOCAINE) 2% 5 mL | | | | | | | oral suspension 15 mL, Swish & | | | | | | | Swallow, 4 TIMES DAILY, First | | | | | | | dose on 04/12/20 at 0945 | | | | | | + +-------+ +--------+---+---+ +-------+ +--------+---+---+ | Given | 04/13/20 | 15 mLs | | | | | 20 8:54 | | | | | | AM PDT | | | | +-------+ +--------+---+---+ | Given | 04/12/20 | 15 mLs | | | | | 20 8:37 | | | | | | PM PDT | | | | +-------+ +--------+---+---+ + +---+ | | | + +---+ | aluminum & magnesium | | | hydroxide-simethicone (MAALOX | | | PLUS REGULAR STRENGTH) 200-200-20 | | | mg/5 mL 5 mL, diphenhydrAMINE | | | (BENADRYL) 12.5 mg/5 mL 5 mL, | | | lidocaine (XYLOCAINE) 2% 5 mL | | | oral suspension 15 mL, Swish & | | | Spit, EVERY 4 HOURS PRN, Sore | | | Throat, Starting 04/12/20 at | | | 1011 | | + +---+ | | | + +---+ + +-------+ +--------+---+---+ | benzonatate (TESSALON) capsule | Given | 04/08/20 | 100 mg | | | | 100 mg 100 mg, Oral, 3 TIMES | | 20 8:30 | | | | | DAILY PRN, Cough, Starting Wed | | PM PDT | | | | | 04/08/20 at 1911, Swallow capsule | | | | | | | whole. Do not chew or crush., | | | | | | + +-------+ +--------+---+---+ +---+---+ | | | +---+---+ + +-------+ +---------+---+---+ | | Given | 04/12/20 | 2 | | | | [id number]-[id number]-wlbdlehi | | 20 8:36 | tablets | | | | 50-325-40 mg per tablet 1-2 | | PM PDT | | | | | tablet 1-2 tablet, Oral, EVERY 4 | | | | | | | HOURS PRN, Headaches, Starting | | | | | | | 04/10/20 at 1009, Maximum 6 | | | | | | | tablets per day., | | | | | | + +-------+ +---------+---+---+ +-------+ + +---+---+ | Given | 04/10/20 | 1 tablet | | | | | 20 8:29 | | | | | | PM PDT | | | | +-------+ + +---+---+ | Given | 04/10/20 | 1 tablet | | | | | 20 5:08 | | | | | | PM PDT | | | | +-------+ + +---+---+ +---+---+ | | | +---+---+ + +---------+ + +-------+---+ | cyclophosphamide (CYTOXAN) | New Bag | 04/13/20 | 1,500 mg | 650 | | | 1,500 mg in sodium chloride 0.9% | | 20 3:38 | | mL/hr | | | 250 mL infusion 1,500 mg | | PM PDT | | | | | (rounded from 1,545 mg = 750 | | | | | | | mg/m2 | | | | | | | 2.06 m2 Treatment plan recorded | | | | | | | BSA), Intravenous, Administer | | | | | | | over 30 Minutes, ONCE, Mon | | | | | | | 04/13/20 at 1400, For 1 dose, | | | | | | | Chemotherapy: Use appropriate | | | | | | | handling precautions. If patient | | | | | | | experiences facial discomfort, | | | | | | | stop infusion and wait until | | | | | | | symptoms subside. Extend infusion | | | | | | | time(s) to greater than or equal | | | | | | | to 1 hour., | | | | | | + +---------+ + +-------+---+ + +---+ | | | + +---+ | dextromethorphan-guaifenesin | | | (MUCINEX DM) 30-600 mg per ER | | | tablet 1 tablet 1 tablet, Oral, | | | 2 TIMES DAILY PRN, Cough, | | | Starting [place] 04/12/20 at 0944, Do | | | not cut or crush., | | + +---+ | | | + +---+ | diphenhydrAMINE (BENADRYL) | | | injection 25 mg 25 mg, | | | Intravenous, EVERY 15 MIN PRN, | | | infusion reaction, may repeat x1, | | | Starting [facility] 04/09/20 at 0857, For | | | 2 doses | | + +---+ | | | + +---+ | | | | tlfagulmwaivgpg-okrnwupoucpmsk-dp | | | statin (DUKES MOUTHWASH) | | | suspension 10 mL 10 mL, Swish & | | | Spit, 4 TIMES DAILY, First dose | | | on 04/13/20 at 1300 | | + +---+ | | | + +---+ + +-------+ +--------+---+---+ | docusate sodium (COLACE) | Given | 04/13/20 | 100 mg | | | | capsule 100 mg 100 mg, Oral, 2 | | 20 12:27 | | | | | TIMES DAILY PRN, Constipation, | | AM PDT | | | | | Starting 04/08/20 at 1911, 1st | | | | | | | line agent for constipation | | | | | | | relief., | | | | | | + +-------+ +--------+---+---+ +-------+ +--------+---+---+ | Given | 04/11/20 | 100 mg | | | | | 20 8:43 | | | | | | AM PDT | | | | +-------+ +--------+---+---+ | Given | 04/10/20 | 100 mg | | | | | 20 5:10 | | | | | | PM PDT | | | | +-------+ +--------+---+---+ +---+---+ | | | +---+---+ + + + +---+-------+---+ | DOXOrubicin (ADRIAMYCIN) 21 mg, | Rate/Dos | 04/10/20 | | 21.5 | | | etoposide (VEPESID) 104 mg, | e | 20 7:10 | | mL/hr | | | vinCRIStine (ONCOVIN) 0.82 mg in | Verify-D | AM PDT | | | | | sodium chloride 0.9% 500 mL | ual Sign | | | | | | infusion 21 mg (rounded from | | | | | | | 20.6 mg = 10 mg/m2/day | | | | | | | 2.06 m2 Treatment plan recorded | | | | | | | BSA), Intravenous, Administer | | | | | | | over 24 Hours, EVERY 24 HOURS | | | | | | | INTERVAL, First dose on [facility] | | | | | | | 04/09/20 at 1400, For 1 dose, | | | | | | | Chemotherapy: Use appropriate | | | | | | | handling precautions. Vesicant. | | | | | | | Use non-DEHP tubing for | | | | | | | administration. Protect from | | | | | | | light. Administered via CADD | | | | | | | pump. Start Day 1. Refill on Days | | | | | | | 2, 3, and 4. Disconnect on Day | | | | | | | 5., | | | | | | + + + +---+-------+---+ + + +-------+-------+---+ | Rate/Dose Verify-Dual Sign | 04/09/20 | | 21.5 | | | | 20 7:18 | | mL/hr | | | | PM PDT | | | | + + +-------+-------+---+ | New Bag | 04/09/20 | 21 mg | 21.5 | | | | 20 2:32 | | mL/hr | | | | PM PDT | | | | + + +-------+-------+---+ +---+---+ | | | +---+---+ + + + +---+ +---+ | DOXOrubicin (ADRIAMYCIN) 21 mg, | Rate/Dos | 04/11/20 | | 24 mL/hr | | | etoposide (VEPESID) 104 mg, | e | 20 7:14 | | | | | vinCRIStine (ONCOVIN) 0.82 mg in | Verify-D | AM PDT | | | | | sodium chloride 0.9% 500 mL | ual Sign | | | | | | infusion 21 mg (rounded from | | | | | | | 20.6 mg = 10 mg/m2/day | | | | | | | 2.06 m2 Treatment plan recorded | | | | | | | BSA), Intravenous, Administer | | | | | | | over 24 Hours, EVERY 24 HOURS | | | | | | | INTERVAL, First dose on Mon | | | | | | | 04/10/20 at 1430, For 1 dose, | | | | | | | Chemotherapy: Use appropriate | | | | | | | handling precautions. Vesicant. | | | | | | | Use non-DEHP tubing for | | | | | | | administration. Protect from | | | | | | | light. Administered via CADD | | | | | | | pump. Start Day 1. Refill on Days | | | | | | | 2, 3, and 4. Disconnect on Day | | | | | | | 5., | | | | | | + + + +---+ +---+ + + +-------+-------+---+ | Rate/Dose Verify-Dual Sign | 04/10/20 | | 21.5 | | | | 20 7:19 | | mL/hr | | | | PM PDT | | | | + + +-------+-------+---+ | New Bag | 04/10/20 | 21 mg | 21.5 | | | | 20 2:53 | | mL/hr | | | | PM PDT | | | | + + +-------+-------+---+ +---+---+ | | | +---+---+ + + + +---+-------+---+ | DOXOrubicin (ADRIAMYCIN) 21 mg, | Rate/Dos | 04/12/20 | | 22.7 | | | etoposide (VEPESID) 104 mg, | e | 20 7:08 | | mL/hr | | | vinCRIStine (ONCOVIN) 0.82 mg in | Verify-D | AM PDT | | | | | sodium chloride 0.9% 500 mL | ual Sign | | | | | | infusion 21 mg (rounded from | | | | | | | 20.6 mg = 10 mg/m2/day | | | | | | | 2.06 m2 Treatment plan recorded | | | | | | | BSA), Intravenous, Administer | | | | | | | over 24 Hours, EVERY 24 HOURS | | | | | | | INTERVAL, First dose on Sat | | | | | | | 04/11/20 at 1500, For 1 dose, | | | | | | | Chemotherapy: Use appropriate | | | | | | | handling precautions. Vesicant. | | | | | | | Use non-DEHP tubing for | | | | | | | administration. Protect from | | | | | | | light. Administered via CADD | | | | | | | pump. Start Day 1. Refill on Days | | | | | | | 2, 3, and 4. Disconnect on Day | | | | | | | 5., | | | | | | + + + +---+-------+---+ + + +-------+-------+---+ | Rate/Dose Verify-Dual Sign | 04/11/20 | | 22.7 | | | | 20 7:11 | | mL/hr | | | | PM PDT | | | | + + +-------+-------+---+ | New Bag | 04/11/20 | 21 mg | 21.5 | | | | 20 3:24 | | mL/hr | | | | PM PDT | | | | + + +-------+-------+---+ +---+---+ | | | +---+---+ + + + +---+-------+---+ | DOXOrubicin (ADRIAMYCIN) 21 mg, | Rate/Dos | 04/13/20 | | 22.7 | | | etoposide (VEPESID) 104 mg, | e | 20 7:21 | | mL/hr | | | vinCRIStine (ONCOVIN) 0.82 mg in | Verify-D | AM PDT | | | | | sodium chloride 0.9% 500 mL | ual Sign | | | | | | infusion 21 mg (rounded from | | | | | | | 20.6 mg = 10 mg/m2/day | | | | | | | 2.06 m2 Treatment plan recorded | | | | | | | BSA), Intravenous, Administer | | | | | | | over 24 Hours, EVERY 24 HOURS | | | | | | | INTERVAL, First dose on Sun | | | | | | | 04/12/20 at 1530, For 1 dose, | | | | | | | Chemotherapy: Use appropriate | | | | | | | handling precautions. Vesicant. | | | | | | | Use non-DEHP tubing for | | | | | | | administration. Protect from | | | | | | | light. Administered via CADD | | | | | | | pump. Start Day 1. Refill on Days | | | | | | | 2, 3, and 4. Disconnect on Day | | | | | | | 5., | | | | | | + + + +---+-------+---+ + + +---------+-------+---+ | Rate/Dose Verify-Dual Sign | 04/12/20 | | 22.7 | | | | 20 7:09 | | mL/hr | | | | PM PDT | | | | + + +---------+-------+---+ | New Bag | 04/12/20 | 22.7 mg | 21.5 | | | | 20 3:19 | | mL/hr | | | | PM PDT | | | | + + +---------+-------+---+ +---+---+ | | | +---+---+ + +-------+ +-------+---+ + | enoxaparin (LOVENOX) 40 mg/0.4 | Given | 04/08/20 | 40 mg | | Abdomen- | | mL injection 40 mg 40 mg, | | 20 8:30 | | | LLQ | | Subcutaneous, EVERY 24 HOURS, | | PM PDT | | | | | First dose on Mon04/08/20 at 2000 | | | | | | + +-------+ +-------+---+ + +---+---+ | | | +---+---+ + +-------+ +-------+---+ + | enoxaparin (LOVENOX) 40 mg/0.4 | Given | 04/13/20 | 40 mg | | Abdomen- | | mL injection 40 mg 40 mg, | | 20 8:53 | | | RLQ | | Subcutaneous, EVERY 24 HOURS, | | AM PDT | | | | | First dose on 04/12/20 at 1015 | | | | | | + +-------+ +-------+---+ + +-------+ +-------+---+ + | Given | 04/12/20 | 40 mg | | Abdomen- | | | 20 10:16 | | | LLQ | | | AM PDT | | | | +-------+ +-------+---+ + + +---+ | | | + +---+ | EPINEPHrine 1 mg/mL injection | | | 0.3 mg 0.3 mg, Intramuscular, | | | EVERY 5 MIN PRN, Anaphylaxis, | | | Starting [facility] 04/09/20 at 0857, For | | | 3 doses, Administer in the | | | anterior lateral thigh using 1 - | | | 1.5 inch needle for airway | | | obstruction symptoms and/or | | | hypotension., | | + +---+ | | | + +---+ | famotidine (PEPCID) injection | | | 20 mg 20 mg, Intravenous, ONCE | | | PRN, Moderate reaction or | | | anaphylaxis., Starting [facility] 04/09/20 | | | at 0857, Dilute 2 mL of | | | famotidine with 8 mL of normal | | | saline to a final concentration | | | of 2 mg/mL. Administer ordered | | | dose over a period of at least 2 | | | minutes., | | + +---+ | | | + +---+ + +-------+ +-------+---+---+ | famotidine (PEPCID) tablet 20 | Given | 04/09/20 | 20 mg | | | | mg 20 mg, Oral, DAILY, First | | 20 7:49 | | | | | dose on Mon04/08/20 at 1930 | | AM PDT | | | | + +-------+ +-------+---+---+ +-------+ +-------+---+---+ | Given | 04/08/20 | 20 mg | | | | | 20 8:30 | | | | | | PM PDT | | | | +-------+ +-------+---+---+ +---+---+ | | | +---+---+ + +-------+ +-------+---+---+ | famotidine (PEPCID) tablet 20 | Given | 04/13/20 | 20 mg | | | | mg 20 mg, Oral, 2 TIMES DAILY, | | 20 8:54 | | | | | First dose (after last | | AM PDT | | | | | modification) on [facility] 04/09/20 at | | | | | | | 2100 | | | | | | + +-------+ +-------+---+---+ +-------+ +-------+---+---+ | Given | 04/12/20 | 20 mg | | | | | 20 8:37 | | | | | | PM PDT | | | | +-------+ +-------+---+---+ | Given | 04/12/20 | 20 mg | | | | | 20 8:09 | | | | | | AM PDT | | | | +-------+ +-------+---+---+ +---+---+ | | | +---+---+ + +---------+ +--------+-------+---+ | fosaprepitant (EMEND) 150 mg in | New Bag | 04/09/20 | 150 mg | 500 | | | sodium chloride 0.9% 250 mL IVPB | | 20 1:43 | | mL/hr | | | 150 mg, Intravenous, Administer | | PM PDT | | | | | over 30 Minutes, ONCE, [facility] | | | | | | | 04/09/20 at 1330, For 1 dose, Do | | | | | | | not shake bag., | | | | | | + +---------+ +--------+-------+---+ + +---+ | | | + +---+ | heparin 100 units/mL flush | | | injection 500 Units 500 Units (5 | | | mL), Intracatheter, PRN, Line | | | Care, Starting [facility] 04/09/20 at 0857 | | + +---+ | | | + +---+ + +-------+ +-------+---+---+ | heparin 100 units/mL flush | Given | 04/13/20 | 500 | | | | injection 500 Units 500 Units (5 | | 20 4:41 | Units | | | | mL), Intracatheter, PRN, Line | | PM PDT | | | | | Care, Starting 04/13/20 at | | | | | | | 1518 | | | | | | + +-------+ +-------+---+---+ + +---+ | | | + +---+ | methylPREDNISolone sodium | | | succinate (solu-MEDROL) 62.5 | | | mg/mL injection 125 mg 125 mg, | | | Intravenous, ONCE PRN, Infusion | | | reaction, Starting [facility] 04/09/20 at | | | 0857, For 1 dose, Mix with 2 mL | | | provided diluent to make 62.5 | | | mg/mL., | | + +---+ | | | + +---+ + +-------+ +-------+---+---+ | metoclopramide (REGLAN) 5 mg/mL | Given | 04/13/20 | 10 mg | | | | injection 10 mg 10 mg, | | 20 7:28 | | | | | Intravenous, EVERY 6 HOURS PRN, | | AM PDT | | | | | Nausea, Vomiting, Starting Fri | | | | | | | 04/10/20 at 1956, Protect from | | | | | | | light., | | | | | | + +-------+ +-------+---+---+ +-------+ +-------+---+---+ | Given | 04/12/20 | 10 mg | | | | | 20 2:01 | | | | | | PM PDT | | | | +-------+ +-------+---+---+ | Given | 04/11/20 | 10 mg | | | | | 20 5:57 | | | | | | PM PDT | | | | +-------+ +-------+---+---+ +---+---+ | | | +---+---+ + +-------+ +------+---+---+ | ondansetron (ZOFRAN ODT) | Given | 04/13/20 | 4 mg | | | | disintegrating tablet 4 mg 4 mg, | | 20 11:53 | | | | | Oral, EVERY 6 HOURS PRN, Nausea, | | AM PDT | | | | | Vomiting, Starting 04/08/20 at | | | | | | | 1911, First line agent, | | | | | | + +-------+ +------+---+---+ +-------+ +------+---+---+ | Given | 04/10/20 | 4 mg | | | | | 20 5:08 | | | | | | PM PDT | | | | +-------+ +------+---+---+ | Given | 04/10/20 | 4 mg | | | | | 20 11:29 | | | | | | AM PDT | | | | +-------+ +------+---+---+ +---+---+ | | | +---+---+ + +-------+ +------+---+---+ | ondansetron (ZOFRAN) injection | Given | 04/12/20 | 4 mg | | | | 4 mg 4 mg, Intravenous, EVERY 6 | | 20 5:56 | | | | | HOURS PRN, Nausea, Vomiting, | | PM PDT | | | | | Starting 04/08/20 at 1911, | | | | | | | First line agent, | | | | | | + +-------+ +------+---+---+ +---+---+ | | | +---+---+ + +---------+ +---------+--------+---+ | palonosetron (ALOXI) 0.25 mg, | New Bag | 04/09/20 | 0.25 mg | 424.8 | | | dexamethasone (DECADRON) 12 mg in | | 20 1:17 | | mL/hr | | | sodium chloride 0.9% 100 mL IVPB | | PM PDT | | | | | 0.25 mg, Intravenous, | | | | | | | Administer over 15 Minutes, ONCE, | | | | | | | [facility] 04/09/20 at 1330, For 1 dose, | | | | | | | Administer 30 minutes prior to | | | | | | | chemotherapy., | | | | | | + +---------+ +---------+--------+---+ +---+---+ | | | +---+---+ + +---------+ +---------+--------+---+ | palonosetron (ALOXI) 0.25 mg, | New Bag | 04/13/20 | 0.25 mg | 424.8 | | | dexamethasone (DECADRON) 12 mg in | | 20 3:27 | | mL/hr | | | sodium chloride 0.9% 100 mL IVPB | | PM PDT | | | | | 0.25 mg, Intravenous, | | | | | | | Administer over 15 Minutes, ONCE, | | | | | | | [facility] 04/13/20 at 1300, For 1 dose, | | | | | | | Administer 30 minutes prior to | | | | | | | chemotherapy., | | | | | | + +---------+ +---------+--------+---+ +---+---+ | | | +---+---+ + +-------+ +------+---+---+ | polyethylene glycol (MIRALAX) | Given | 04/11/20 | 17 g | | | | powder 17 g 17 g, Oral, DAILY | | 20 10:01 | | | | | PRN, Constipation, Starting Sat | | AM PDT | | | | | 04/11/20 at 0911, Mix with 8 oz. | | | | | | | water., | | | | | | + +-------+ +------+---+---+ +---+---+ | | | +---+---+ + +-------+ +--------+---+---+ | predniSONE (DELTASONE) tablet | Given | 04/13/20 | 120 mg | | | | 120 mg 120 mg, Oral, DAILY, | | 20 11:49 | | | | | First dose on [facility] 04/09/20 at 1200, | | AM PDT | | | | | For 5 doses, Do not administer | | | | | | | predniSONE dose if patient took | | | | | | | dose at home., | | | | | | + +-------+ +--------+---+---+ +-------+ +--------+---+---+ | Given | 04/12/20 | 120 mg | | | | | 20 12:04 | | | | | | PM PDT | | | | +-------+ +--------+---+---+ | Given | 04/11/20 | 120 mg | | | | | 20 11:42 | | | | | | AM PDT | | | | +-------+ +--------+---+---+ + +---+ | | | + +---+ | prochlorperazine tablet 10 mg | | | 10 mg, Oral, EVERY 6 HOURS PRN, | | | Nausea, Vomiting, Starting Mon | | | 04/13/20 at 1256 | | + +---+ | | | + +---+ | sodium chloride 0.9% (NS) bolus | | | 250 mL 250 mL, Intravenous, | | | PRN, Flush before and after IV | | | medication(s) and as needed with | | | NS, Starting [facility] 04/09/20 at 0857 | | + +---+ | | | + +---+ | sodium chloride 0.9% (NS) bolus | | | 250 mL 250 mL, Intravenous, | | | PRN, Flush before and after IV | | | medication(s) and as needed with | | | NS, Starting [facility] 04/13/20 at 0459 | | + +---+ | | | + +---+ + +---------+ +---------+-------+---+ | sodium chloride 0.9% (NS) bolus | New Bag | 04/13/20 | 500 mLs | 500 | | | 500 mL 500 mL, Intravenous, | | 20 2:23 | | mL/hr | | | Administer over 1 Hours, ONCE, | | PM PDT | | | | | 04/13/20 at 1300, For 1 dose, | | | | | | | Administer 500 mL NS before | | | | | | | cyclophosphamide administration., | | | | | | | | | | | | | + +---------+ +---------+-------+---+ +---+---+ | | | +---+---+ + +---------+ +---------+-------+---+ | sodium chloride 0.9% (NS) bolus | New Bag | 04/13/20 | 500 mLs | 500 | | | 500 mL 500 mL, Intravenous, | | 20 3:35 | | mL/hr | | | Administer over 1 Hours, ONCE, | | PM PDT | | | | | 04/13/20 at 1430, For 1 dose, | | | | | | | Administer 500 mL NS after | | | | | | | cyclophosphamide administration., | | | | | | | | | | | | | + +---------+ +---------+-------+---+ +---+---+ | | | +---+---+ + +---------+ +---------+-------+---+ | sodium chloride 0.9% (NS) | New Bag | 04/13/20 | 500 mLs | 500 | | | infusion 500 mL at 500 mL/hr, | | 20 3:27 | | mL/hr | | | Intravenous, PRN, Moderate | | PM PDT | | | | | reacton or anaphylaxis., Starting | | | | | | | [facility] 04/09/20 at 0857, Run wide | | | | | | | open to gravity., | | | | | | + +---------+ +---------+-------+---+ +---+---+ | | | +---+---+ + +---------+ +---+-------+---+ | sodium chloride 0.9% (NS) | New Bag | 04/13/20 | | 120 | | | infusion at 120 mL/hr, | | 20 1:14 | | mL/hr | | | Intravenous, CONTINUOUS, Starting | | PM PDT | | | | | 04/08/20 at 1930 | | | | | | + +---------+ +---+-------+---+ +---------+ +---+-------+---+ | New Bag | 04/12/20 | | 120 | | | | 20 8:48 | | mL/hr | | | | PM PDT | | | | +---------+ +---+-------+---+ | New Bag | 04/12/20 | | 120 | | | | 20 1:05 | | mL/hr | | | | PM PDT | | | | +---------+ +---+-------+---+ + +---+ | | | + +---+ | sodium chloride 0.9% flush 10 | | | mL 10 mL, Intracatheter, PRN, | | | Line Care, Starting [facility] 04/09/20 at | | | 0857 | | + +---+ | | | + +---+ documented in this encounter
--- OUTSIDE RECORDS SUMMARY | ~2020-06-23 | XMS | Encounter Summary ---
Demographics + + + | Address | [address] | | | [place] [address] | + + + | Home Phone | | + + + | Preferred Language | Unknown | + + + | Marital Status | Single | + + + | Jain Affiliation | Unknown | + + + | Race | White | + + + | Ethnic Group | Not or | + + + Author + + + | Author | [facility] | | | and [place] | + + + | Organization | [facility] | | | and [...] Team Providers + +------+ + | Care Procurement Director Name | Role | Phone | + [...] + + | 05/19/ | Telephone | [facility] | Briana Taylor | Other (Oncology | | 2019 | | HEMATOLOGY AND | C, RN | Nurse Navigation) | | | | ONCOLOGY [address] | | | | | [address] | | | | | | [place] | | | | | | [address] | | | | | | [phone] | | | +--------+ + + + [...] Sr, RN, OCN General Oncology Nurse Navigator [facility] documented in this encounter [...] [place] | | | | | | [address] | | | | | | | | +--------+ + + + + | 06/29/ | Office | Oncology | Wilton Jeff MD | | | 2019 | Visit | | [address] | | | | | | [place] | | | | | | [address] | | | | | | | | | | | | Marilou Mcmullen, | | | | | | [employer] [address] | [address] | | | | | | [place] [address] | | | | | | [phone] | | | | | | | | +--------+ + + + + | 06/29/ | Appointment | Infusion Therapy | Wilton Jeff MD | | | 2019 | | | [address] | | | | | | [place] | | | | | | [address] | | | | | | | | +--------+ + + + + | 07/14/ | Office | Otolaryngology | Sal She | | | 2019 | Visit | | DO Sophia Canela | | | | | | [address] | | | | | | [place] [address] | | | | | | [phone] | | | | | | | | +--------+ + + + + | 07/20/ | Appointment | Infusion Therapy | Wilton Jeff MD | | | 2019 | | | [address] | | | | | | [place] | | | | | | [address] | | | | | | | | +--------+ + + + + | 07/20/ | Office | Oncology | Wilton Jeff MD | | | 2019 | Visit | | [address] | | | | | | [place] | | | | | | [address] | | | | | | | | +--------+ + + + + | 07/20/ | Appointment | Infusion Therapy | Wilton Jeff MD | | | 2019 | | | [address] | | | | | | [place] | | | | | | [address] | | | | | | | | +--------+ + + + + | 08/17/ | Appointment | Infusion Therapy | Wilton Jeff MD | | | 2019 | | | [address] | | | | | | [place] | | | | | | [address] | | | | | | | | +--------+ + + + + | 08/17/ | Office | Oncology | Wilton Jeff MD | | | 2019 | Visit | | [address] | | | | | | [place] | | | | | | [address] | | | | | | | | +--------+ + + + + documented as of this encounter Visit Diagnoses Not on filedocumented in this encounter"
--- OUTSIDE RECORDS SUMMARY | ~2020-06-23 | XMS | Encounter Summary ---
Demographics + + + | Address | [address] | | | [place] [address] | + + + | Home Phone | | + + + | Preferred Language | Unknown | + + + | Marital Status | Single | + + + | Episcopalian Affiliation | Unknown | + + + | Race | White | + + + | Ethnic Group | Not or | + + + Author + + + | Author | [facility] | | | and [place] | + + + | Organization | [facility] | | | [...] Team Providers + +------+ + | Care Sausage Stringer Name | Role | Phone | + [...] | | | | | | | Cervical | | | | | | | lymphadenopa | | | | | | | thy | | | | | | | Supraclavicu | | | | | | | lar | | | | | | | adenopathy | | | | | | | Procedures | | | | | | | AL | | | | | | | BX/REMV,LYMP | | | | | | | H NODE,DEEP | | | | | | | CERV BIOPSY | | | | | | | CERVICAL | | | | | | | NODE | | | +--------+--------+ + + + + Encounter Details +--------+ + + + + | Date | Type | Department | Care Team | Description | +--------+ + + + + | 03/20/ | Anesthesia | [facility] | Carmela Knight CRNA | | | 2020 | Event [facility] | [address] | | | | | OPER[address] | [place] [address] | | | | | [address] | [phone] | | | | | [place], [place] | | | | | | [address] | | | | | | [phone] | | | +--------+ + + + + Anesthesia Record + + + + + | Procedure Name | Responsible | Anesthesia Start | Anesthesia Stop Time | | | Anesthesiologist | Time | | + + + + + | BIOPSY DEEP CERVICAL | Carmela Knight CRNA | 03/20/20 1228 | 03/20/20 1347 | | NODE (Right Neck) | | | | + + + + + +----+---+ + + | Da | T | Event | Comment | | te | i | | | | | m | | | | | e | | | +----+---+ + + | 07 | 1 | An Checkout | Pre-use anesthesia machine/equipment checkout. | | /1 | 2 | | | | 7/ | 1 | | | | 20 | 5 | | | | 20 | | | | +----+---+ + + | | 1 | | | | | 2 | | | | | 2 | | | | | 5 | | | +----+---+ + + | | 1 | An Start | Reassessment prior to anesthesia induction/procedure. | | | 2 | | | | | 2 | | | | | 8 | | | +----+---+ + + | | 1 | Preoxygenat | | | | 2 | ed | | | | 3 | | | | | 0 | | | +----+---+ + + | | 1 | An | | | | 2 | Induction | | | | 3 | | | | | 1 | | | +----+---+ + + | | 1 | An | | | | 2 | Intubation | | | | 3 | | | | | 2 | | | +----+---+ + + | | 1 | Anesthesia | | | | 2 | Ready | | | | 3 | | | | | 4 | | | +----+---+ + + | | 1 | [place] | | | | 2 | 43-degrees | | | | 3 | | | | | 9 | | | +----+---+ + + | | 1 | Pre-Procedu | | | | 2 | ral Timeout | | | | 4 | Completed | | | | 4 | | | +----+---+ + + | | 1 | First | | | | 2 | Inc/Proc St | | | | 4 | | | | | 7 | | | +----+---+ + + | | 1 | Extubation/ | | | | 3 | Airway LDA | | | | 4 | Removal | | | | 5 | | | +----+---+ + + | | 1 | an stop | | | | 3 | data | | | | 4 | | | | | 5 | | | +----+---+ + + | | 1 | An Stop | Patient handed off to recovery nurse. | | | 4 | | | | | 7 | | | +----+---+ + + +------+ | Meds | +------+ + +---------+ | Name | Total | + +---------+ | midazolam 2 mg/mL | 2 mg | + +---------+ | fentaNYL | 100 mcg | + +---------+ | lidocaine 2% | 100 mg | + +---------+ | propofol | 200 mg | + +---------+ | rocuronium | 10 mg | + +---------+ | succinylcholine | 120 mg | + +---------+ | dexamethasone | 4 mg | + +---------+ | ondansetron | 4 mg | + +---------+ | esmolol | 50 mg | + +---------+ | balanced electrolytes in water | 800 mL | | (PLASMALYTE-148/NORMOSOL-R) | | | infusion | | + +---------+ + + | Name | + + | N2O Flow Rate (L/Min) | + + | O2 Flow Rate (L/Min) | + + | Insp O2 | + + | Exp N2O | + + | Exp SEV | + + | Air Flow Rate (L/Min) | + + + + | No blood administrations on file. | + + +--------+ + + + | Type | Details | Placement | Removal | +--------+ + + + | Periph | 03/20/20; 1220; Left; Hand; | 03/20/20 1220 by | 03/20/20 1519 by | | rehan | [id number]-wbfeic catheter system; | Cherelle Cook | Nuria Barton RN | | IV | 20 gauge; no longer indicated, | [facility] | | | | catheter/device intact; short | | | | | term use; 03/20/20; 1519 | | | +--------+ + + + | Airway | Placement Date: 03/20/20; | 03/20/20 1232 by | 03/20/20 1345 by | | | Placement Time: 1232 (created via | Carmela Knight CRNA | Carmela Knight CRNA | | | procedure documentation); Mask | | | | | Ventilation: N/A; Airway Grade: | | | | | 1; Successful Technique: Mac; | | | | | Laryngoscope Blade Size: 4; | | | | | Attempts: 1; Airway Type: | | | | | endotracheal; Size: 7.5; Airway | | | | | Tube Secured At: 21; Trauma: | | | | | none; Other Equipment: stylette; | | | | | Placement Check: exhaled CO2 | | | | | detection device, bilateral chest | | | | | rise, breath sounds equal | | | | | bilaterally; Removal Date: | | | | | 03/20/20; Removal Time: 1345 | | | +--------+ + + + | Wound | 03/20/20; 1336; Incision; Right; | 03/20/20 1336 by | 04/08/202208 by | | | neck; Healed; 04/08/20; 2208 | Kat Wren RN | Xochitl Mohan | | | | | [place], | | | | | [facility] | +--------+ + + + documented in this encounter Social History + + + +--------+ + [...] + + documented as of this encounter OR Notes Anesthesia Postprocedure Evaluation - Carmela Knight CRNA - 03/20/2020 1:52 PM PDT ANESTHESIA POSTANESTHESIA EVALUATION Asad Longo 29 y.o. male 1990 [id number] Procedure(s) BIOPSY DEEP CERVICAL NODE (Right Neck) Cooperates? Yes Mental Status Performs simple tasks. Respiratory Satisfactory - Airway patent (self maintained). Cardiovascular Satisfactory - Blood pressure and heart rate acceptable Temperature Satisfactory Pain Satisfactory N/V Control Satisfactory Hydration Satisfactory - No signs of dehydration Adverse Events ADVERSE EVENTS: No adverse events Vitals Value Taken Time Temp 36.5 C (97.7 F) 03/20/20 1351 Pulse 87 03/20/20 1351 Resp 14 03/20/20 1351 BP 106/57 03/20/20 1351 Arterial Line BP Arterial Line BP 2 SpO2 98 % 03/20/20 1351 Electronically signed by Carmela Knight CRNA 03/20/2020 1:52 PM PDT [facility] nesthesia Procedure Notes - Carmela Knight CRNA - 03/20/2020 12:42 PM PDTAssociate d Order(s): AirwayAnesthesia Airway Placement 03/20/2020 12:32 PM Preprocedure check: patient identified, oxygen, airway equipment checked, airway assessed, patient reassessment prior to induction and suction Rapid Sequence Induction: no Mask ventilation: N/A External maneuver: ramp position Successful technique: Mac Laryngoscope blade size: 4 Airway grade: 1 (Full view of glottis) Other equipment: stylette Attempts: 1 Airway type: endotracheal Size: 7.5 Cuffed: cuffed Route, reference point: right side of mouth Tube depth: 21 cm LDA Airway tube secured with: pink tape. Trauma: none Tube placement verification: bilateral chest rise, equal bilateral breath sounds and carbon dioxide detection Performing provider: Carmela Knight CRNA Authorizing provider: Carmela Knight CRNA Please see intraoperative grid for any additional medication documentation. nesthesia Preprocedure Evaluation - Carmela Knight CRNA - 03/19/2020 10:16 AM PDTFormatting of this note might be di fferent from the original. ANESTHESIA PREANESTHESIA EVALUATION Asad Longo 29 y.o. male 1990 [id number] Procedure(s): BIOPSY CERVICAL NODE (Right Neck) Medical,anesthesia, drug, allergy histories reviewed, NPO status verified. ECG reviewed. Labs reviewed. (-) perioperative beta-micaela/statin not given/taken, reason : not applicable/Not taking Beta-Micaela. Review of Systems / Med History Anesthesia History No anesthesia complications except where noted below.(-) previous surgery or anesthesia. Family Anesthesia History Family Anesthesia Negative except where noted below. Cardiovascular Negative except where noted below. Exercise tolerance >4 METS (-) dyspnea on minimal exertion (-) dysrhythmias: (-) coronary artery disease. . Pulmonary Negative except where noted below. (-) shortness of breath, Chronic Obstructive Pulmonary Disease.(-) sleep apnea. Gastrointestinal/Hepatic Negative except where noted below. Renal Negative except where noted below. Endocrine Negative except where noted below. Hematology/Other Negative except where noted below. Cancer Negative except where noted below. (+) lung cancer. Obstetrics Negative except where noted below. Pediatric History Negative except where noted below. Neuromuscular (+) history of headaches, chronic pain. (-) back pain. Psychology (+) substance abuse. Additional Comments: Cervical lymphadenopathy Supraclavicular adenopathy Physical Exam Airway MP II, TM >3 FB, Mouth opening >2 FB. Neck: full ROM, extends >30 degrees. Jaw protrus ion normal. Facial hair present: Yes Dental (+) age appropriate dentition. CV cardiovascular normal Rhythm regular. Rate normal. Pulm Clear to auscultation bilaterally. Neuro grossly normal. Anesthesia Plan ASA: 3 Type: General. NPO> 8 hrs, Mets>4, denies chest pain, SOB with activities, Labs reviewed & amp; WNL except as o/w noted. Induction: Intravenous. Potential problems: None anticipated. Monitors: Standard ASA monitors. Consent statement: Anesthetic plan, alternatives, risks and benefits discussed with patient. backache, blindne ss, , discussed risks to teeth, disability, drug reaction, heart problems, ICU placemen t, infection, muscle aches, nausea, pain, perioperative CV events, post-op intubation, respi ratory events, sore throat, stroke, voice injury, delirium Blood transfusion concerns: None. Consenting person understands and agrees to proceed. Discussed plan with MADELEINE. Electronically Signed by: Carmela Knight CRNA ESig date/time: 03/19/2020 10:16 AM PDT documented in this enco unter Miscellaneous Notes Anesthesia Post-op Handoff - Carmela Knight CRNA - 03/20/2020 1:52 PM PDT ANESTHESIA HANDOFF NOTE Asad Bernard Longo 29 y.o. male 1990 [id number] BIOPSY DEEP CERVICAL NODE (Right Neck) HANDOFF NOTE Handoff Protocol Used: post-procedure handoff checklist completed The following were completed during the transfer of care: 1. Identification of patient 2. Identification of responsible practitioner (primary service) 3. Discussion of pertinent medical history 4. Discussion of the surgical/procedure course (procedure, reason for surgery, procedure pe rformed) 5. Intraoperative anesthetic management and issues/concerns 6. Expectations/plans for the early post-procedure period 7. Opportunity for questions and acknowledgement of understanding of report from receiving team Patient Location: Phase I Condition: alert and awake Airway/O2: face mask with O2 Multimodal analgesia: multimodal analgesia used between 6 hours prior to anesthesia start t o PACU discharge The significant anesthesia concerns and VS in Epic were reviewed with the receiving team. Carmela Knight CRNA 03/20/2020 1:52 PM PDT [facility] documented in this encounter Plan of Treatment [...] [place] | | | | | | [address] | | | | | | | | +--------+ + + + + | 06/29/ | Office | Oncology | Wilton Jeff MD | | | 2019 | Visit | | [address] | | | | | | [place] | | | | | | [address] | | | | | | | | | | | | Marilou Mcmullen, | | | | | | ROUGH AND TRUING MACHINE OPERATOR [address] | | | | | | [place] [address] | | | | | | [phone] | | | | | | | | +--------+ + + + + | 06/29/ | Appointment | Infusion Therapy | Wilton Jeff MD | | | 2019 | | | [address] | | | | | | [place] | | | | | | [address] | | | | | | | | +--------+ + + + + | 07/14/ | Office | Otolaryngology | She Huang | | | 2019 | Visit | | DO Sophia Canela | | | | | | [address] | | | | | | [place] [address] | | | | | | [phone] | | | | | | | | +--------+ + + + + | 07/20/ | Appointment | Infusion Therapy | Wilton Jeff MD | | | 2019 | | | [address] | | | | | | [place] | | | | | | [address] | | | | | | | | +--------+ + + + + | 07/20/ | Office | Oncology | Wilton Jeff MD | | | 2019 | Visit | | [address] | | | | | | [place] | | | | | | [address] | | | | | | | | +--------+ + + + + | 07/20/ | Appointment | Infusion Therapy | Wilton Jeff MD | | | 2019 | | | [address] | | | | | | [place] | | | | | | [address] | | | | | | | | +--------+ + + + + | 08/17/ | Appointment | Infusion Therapy | Wilton Jeff MD | | | 2019 | | | [address] | | | | | | [place] | | | | | | [address] | | | | | | | | +--------+ + + + + | 08/17/ | Office | Oncology | Wilton Jeff MD | | | 2019 | Visit | | [address] | | | | | | [place] | | | | | | [address] | | | | | | | | +--------+ + + + + documented as of this encounter Procedures + +--------+ + + + | Procedure Name | Priori | Date/Time | Associated Diagnosis | Comments | | | ty | | | | + +--------+ + + + | ANE AIRWAY NOTE | Routin | 03/20/2020 | | Results for this | | | e | 12:42 PM | | procedure are in the | | | | PDT | | results section. | + +--------+ + + + documented in this encounter Results Airway (03/20/2020 12:42 PM PDT) + + + | Narrative | Performed At | + + + | Carmela Knight CRNA 03/20/2020 12:42 PM Anesthesia Airway | | | Placement 03/20/2020 12:32 PM Preprocedure check: patient | | | identified, oxygen, airway equipment checked, airway assessed, | | | patient reassessment prior to induction and suction Rapid Sequence | | | Induction: no Mask ventilation: N/A External maneuver: ramp | | | position Successful technique: Mac Laryngoscope blade size: 4 | | | Airway grade: 1 (Full view of glottis) Other equipment: stylette | | | Attempts: 1 Airway type: endotracheal Size: 7.5 Cuffed: cuffed | | | Route, reference point: right side of mouth Tube depth: 21 cm LDA | | | Airway tube secured with: pink tape. Trauma: none Tube placement | | | verification: bilateral chest rise, equal bilateral breath sounds | | | and carbon dioxide detection Performing provider: Carmela Knight CRNA | | | Authorizing provider: Carmela Knight CRNA Please see | | | intraoperative grid for any additional medication documentation. | | + + + documented in this encounter Visit Diagnoses Not on filedocumented in this encounter Administered Medications + +---------+ +------+------+------+ | Medication Order | MAR | Action | Dose | Rate | Site | | | Action | Date | | | | + +---------+ +------+------+------+ | balanced electrolytes in water | New Bag | 03/20/20 | | | | | (PLASMALYTE-148/NORMOSOL-R) | | 20 12:28 | | | | | infusion at 30 mL/hr, | | PM PDT | | | | | Intravenous, CONTINUOUS, Starting | | | | | | | Mon03/20/20 at 1215, Pre-op | | | | | | + +---------+ +------+------+------+ +---------+ +---+ +---+ | New Bag | 03/20/20 | | 30 mL/hr | | | | 20 12:20 | | | | | | PM PDT | | | | +---------+ +---+ +---+ +---+---+ | | | +---+---+ + +-------+ +------+---+---+ | dexamethasone (DECADRON) 4 | Given | 03/20/20 | 4 mg | | | | mg/mL injection Intravenous, | | 20 12:40 | | | | | PRN, Starting Mon03/20/20 at | | PM PDT | | | | | 1240, Anesthesia Intra-op | | | | | | + +-------+ +------+---+---+ +---+---+ | | | +---+---+ + +-------+ +-------+---+---+ | esmolol (BREVIBLOC) 10 mg/mL | Given | 03/20/20 | 50 mg | | | | injection Intravenous, PRN, | | 20 12:31 | | | | | Starting 03/20/20 at 1231, | | PM PDT | | | | | Anesthesia Intra-op | | | | | | + +-------+ +-------+---+---+ +---+---+ | | | +---+---+ + +-------+ +--------+---+---+ | fentaNYL (PF) injection | Given | 03/20/20 | 25 mcg | | | | Intravenous, PRN, Starting Fri | | 20 12:59 | | | | | 03/20/20 at 1240, Anesthesia | | PM PDT | | | | | Intra-op | | | | | | + +-------+ +--------+---+---+ +-------+ +--------+---+---+ | Given | 03/20/20 | 25 mcg | | | | | 20 12:50 | | | | | | PM PDT | | | | +-------+ +--------+---+---+ | Given | 03/20/20 | 50 mcg | | | | | 20 12:40 | | | | | | PM PDT | | | | +-------+ +--------+---+---+ +---+---+ | | | +---+---+ + +-------+ +--------+---+---+ | lidocaine (PF) 2% injection | Given | 03/20/20 | 100 mg | | | | Intravenous, PRN, Starting Fri | | 20 12:31 | | | | | 03/20/20 at 1231, Anesthesia | | PM PDT | | | | | Intra-op | | | | | | + +-------+ +--------+---+---+ +---+---+ | | | +---+---+ + +-------+ +------+---+---+ | midazolam (VERSED) 1 mg/mL | Given | 03/20/20 | 2 mg | | | | injection Intravenous, PRN, | | 20 12:26 | | | | | Starting 03/20/20 at 1226, | | PM PDT | | | | | Anesthesia Intra-op | | | | | | + +-------+ +------+---+---+ +---+---+ | | | +---+---+ + +-------+ +------+---+---+ | ondansetron (ZOFRAN) injection | Given | 03/20/20 | 4 mg | | | | Intravenous, PRN, Starting Fri | | 20 12:40 | | | | | 03/20/20 at 1240, Anesthesia | | PM PDT | | | | | Intra-op | | | | | | + +-------+ +------+---+---+ +---+---+ | | | +---+---+ + +-------+ +--------+---+---+ | propofol (DIPRIVAN) injection | Given | 03/20/20 | 200 mg | | | | Intravenous, PRN, Starting Fri | | 20 12:31 | | | | | 03/20/20 at 1231, Anesthesia | | PM PDT | | | | | Intra-op | | | | | | + +-------+ +--------+---+---+ +---+---+ | | | +---+---+ + +-------+ +-------+---+---+ | rocuronium (ZEMURON) injection | Given | 03/20/20 | 10 mg | | | | Intravenous, PRN, Starting Fri | | 20 12:31 | | | | | 03/20/20 at 1231, Anesthesia | | PM PDT | | | | | Intra-op | | | | | | + +-------+ +-------+---+---+ +---+---+ | | | +---+---+ + +-------+ +--------+---+---+ | succinylcholine (ANECTINE) | Given | 03/20/20 | 120 mg | | | | injection Intravenous, PRN, | | 20 12:31 | | | | | Starting 03/20/20 at 1231, | | PM PDT | | | | | Anesthesia Intra-op | | | | | | + +-------+ +--------+---+---+ +---+---+ | | | +---+---+ documented in this encounter"
--- OUTSIDE RECORDS SUMMARY | ~2020-06-23 | XMS | Encounter Summary ---
Demographics + + + | Address | [address] | | | [place] [address] | + + + | Home Phone | | + + + | Preferred Language | Unknown | + + + | Marital Status | Single | + + + | Pentecostalism Affiliation | Unknown | + + + | Race | White | + + + | Ethnic Group | Not or | + + + Author + + + | Author | [facility] | | | and [place] | + + + | Organization | [facility] | | | and [...] Team Providers + +------+ + | Care Picker Packer Name | Role | Phone | + +------+ + | Myrna Mejia MD | PCP | | + +------+ + Reason for Visit + +--------+ + | Reason | Onset | Comments | | | Date | | + +--------+ + | Medication Question | 05/07/ | | | | 2020 | | + +--------+ + Encounter Details +--------+ + + + + | Date | Type | Department | Care Team | Description | +--------+ + + + + | 05/07/ | Telephone | [facility] | Witlon Jeff MD | Medication Question | | 2020 | | HEMATOLOGY AND | [address] | | | | | ONCOLOGY [address] | [place] | | | | | [address] | [address] | | | | | [place] | | | | | | [address] | | | | | | [phone] | | | +--------+ + + + [...] Encounter - Bruce Leonardo Medical Assistant - 05/07/2020 3:44 PM PDTI inform ed patient that he is not to continue on Allopurinol as per Dr. Jeff. Patient verbalized u nderstanding and compliance. Zina NATION elephone Encounter - Bruce Leonardo Medical Assistant - 2:12 PM PDTPatient left a message requesting refill on Allopurinol, as he is hilda smith out of this medication. He said he was instructed upon discharge to resume taking Allopurinol, but also said he was instructed by you to stop taking it. Please advise, thank you. Zina NATION documented in this encounter Plan of Treatment [...] [place] | | | | | | [address] | | | | | | | | +--------+ + + + + | 06/29/ | Office | Oncology | Wilton Jeff MD | | | 2019 | Visit | | [address] | | | | | | [place] | | | | | | [address] | | | | | | | | | | | | Marilou Mcmullen, | | | | | | SOLE SKIVER [address] | | | | | | [address] | | | | | | [place] [address] | | | | | | [phone] | | | | | | | | +--------+ + + + + | 06/29/ | Appointment | Infusion Therapy | Wilton Jeff MD | | | 2019 | | | [address] | | | | | | [place] | | | | | | [address] | | | | | | | | +--------+ + + + + | 07/14/ | Office | Otolaryngology | She Huang | | | 2019 | Visit | | DO Sophia Canela | | | | | | [address] | | | | | | [place] [address] | | | | | | [phone] | | | | | | | | +--------+ + + + + | 07/20/ | Appointment | Infusion Therapy | Wilton Jeff MD | | | 2019 | | | [address] | | | | | | [place] | | | | | | [address] | | | | | | | | +--------+ + + + + | 07/20/ | Office | Oncology | Wilton Jeff MD | | | 2019 | Visit | | [address] | | | | | | [place] | | | | | | [address] | | | | | | | | +--------+ + + + + | 07/20/ | Appointment | Infusion Therapy | Wilton Jeff MD | | | 2019 | | | [address] | | | | | | [place] | | | | | | [address] | | | | | | | | +--------+ + + + + | 08/17/ | Appointment | Infusion Therapy | Wilton Jeff MD | | | 2019 | | | [address] | | | | | | [place] | | | | | | [address] | | | | | | | | +--------+ + + + + | 08/17/ | Office | Oncology | Wilton Jeff MD | | | 2019 | Visit | | [address] | | | | | | [place] | | | | | | [address] | | | | | | | | +--------+ + + + + documented as of this encounter Visit Diagnoses Not on filedocumented in this encounter"
--- OUTSIDE RECORDS SUMMARY | ~2020-06-23 | XMS | Encounter Summary ---
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[address] [address] | [address] | | | | | lymph nodes | [place], [place] | Phone: | | | | | of multiple | [address] | [phone] | | | | | regions | Phone: | Fax: | | | | | (HCC) | [phone] | [phone] | | | | | Procedures | Fax: | | | | | | IR Placement | [phone] | | | | | | Port [...] + + | 03/30/ | Telephone | [facility] | Eliza Llamas, | Referral | | 2019 | | INTERVENTIONAL | [address] | | | | | RADIOLOGY [address] | [place], | | | | | [address] [address] | [place] [address] | | | | | [place], [place] | [phone] | | | | | [address] | | | | | | [phone] | | | +--------+ + + + [...] 2:30 PM PDTTelephone Encounter - Judy Reed, Patient Assistant - 03/30/2020 10:06 AM PDTINTERVENTIONAL RADIOLOGY RE [...] Red Flags?: Electronically signed by Judy Reed Patient Assistant at 0 10:09 AM PDTdocumented in this [...] [place] | | | | | | [address] | | | | | | | | +--------+ + + + + | 06/29/ | Office | Oncology | Wilton Jeff MD | | | 2019 | Visit | | [address] | | | | | | [place] | | | | | | [address] | | | | | | | | | | | | Marilou Mcmullen, | | | | | | OUTREACH TEAM MEMBER [address] | | | | [address] | | | | | | [place] [address] | | | | | | [phone] | | | | | | | | +--------+ + + + + | 06/29/ | Appointment | Infusion Therapy | Wilton Jeff MD | | | 2019 | | | [address] | | | | | | [place] | | | | | | [address] | | | | | | | | +--------+ + + + + | 07/14/ | Office | Otolaryngology | She Huang | | | 2019 | Visit | | DO Sophia Canela | | | | | | [address] | | | | | | [place] [address] | | | | | | [phone] | | | | | | | | +--------+ + + + + | 07/20/ | Appointment | Infusion Therapy | Wilton Jeff MD | | | 2019 | | | [address] | | | | | | [place] | | | | | | [address] | | | | | | | | +--------+ + + + + | 07/20/ | Office | Oncology | Wilton Jeff MD | | | 2019 | Visit | | [address] | | | | | | [place] | | | | | | [address] | | | | | | | | +--------+ + + + + | 07/20/ | Appointment | Infusion Therapy | Wilton Jeff MD | | | 2019 | | | [address] | | | | | | [place] | | | | | | [address] | | | | | | | | +--------+ + + + + | 08/17/ | Appointment | Infusion Therapy | Wilton Jeff MD | | | 2019 | | | [address] | | | | | | [place] | | | | | | [address] | | | | | | | | +--------+ + + + + | 08/17/ | Office | Oncology | Wilton Jeff MD | | | 2019 | Visit | | [address] | | | | | | [place] | | | | | | [address] | | | | | | | [...] limited | | | to bleeding, pneumothorax, infection,oysterman vein occlusion, | | | allergic reaction [...] Procedure Note | + + | Stan, [id number] - 04/01/2020 4:26 PM PDT | | [...] limited to bleeding, pneumothorax, infection, | | usp vein occlusion, allergic reaction and . | [...] vein. Using standard Seldinger technique, a 5 Prydeinig | | micropuncture sheath was position over [...] + + | Performing | Address | City/State[facility] | Phone Number | | Organization | [...]
--- OUTSIDE RECORDS SUMMARY | ~2020-06-23 | XMS | Encounter Summary ---
Demographics + + + | Address | [address] | | | [place] [address] | + + + | Home Phone | | + + + | Preferred Language | Unknown | + + + | Marital Status | Single | + + + | Jehovah'S Witness Affiliation | Unknown | + + + | Race | White | + + + | Ethnic Group | Not or | + + + Author + + + | Author | [facility] | | | and [place] | + + + | Organization | [facility] | | [...] Team Providers + +------+ + | Care Soda Dry House Operator Name | Role | Phone | + +------+ + | Myrna Mejia MD | PCP | | + +------+ + Encounter Details +--------+ + + + + | Date | Type | Department | Care Team | Description | +--------+ + + + + | 04/06/ | Orders Only | [facility] | Kesha Mcdaniel RP | | | 2020 | | HEMATOLOGY AND | | | | | | ONCOLOGY PHARMACY | | | | | | [address] | | | | | | [place] | | | | | | [address] | | | | | | [phone] | | | +--------+ + + + [...] [place] | | | | | | [address] | | | | | | | | +--------+ + + + + | 06/29/ | Office | Oncology | Wilton Jeff MD | | | 2019 | Visit | | [address] | | | | | | [place] | | | | | | [address] | | | | | | | | | | | | Marilou Mcmullen, | | | | | | HARNESS RIGGER [address] | | | | | | [address] | | | | | | [place] [address] | | | | | | [phone] | | | | | | | | +--------+ + + + + | 06/29/ | Appointment | Infusion Therapy | Wilton Jeff MD | | | 2019 | | | [address] | | | | | | [place] | | | | | | [address] | | | | | | | | +--------+ + + + + | 07/14/ | Office | Otolaryngology | She Huang | | | 2019 | Visit | | DO Sophia Canela | | | | | | [place] [address] | | | | | | [place] [address] | | | | | | [phone] | | | | | | | | +--------+ + + + + | 07/20/ | Appointment | Infusion Therapy | Wilton Jeff MD | | | 2019 | | | [address] | | | | | | [place] | | | | | | [address] | | | | | | | | +--------+ + + + + | 07/20/ | Office | Oncology | Wilton Jeff MD | | | 2019 | Visit | | [address] | | | | | | [place] | | | | | | [address] | | | | | | | | +--------+ + + + + | 07/20/ | Appointment | Infusion Therapy | Wilton Jeff MD | | | 2019 | | | [address] | | | | | | [place] | | | | | | [address] | | | | | | | | +--------+ + + + + | 08/17/ | Appointment | Infusion Therapy | Wilton Jeff MD | | | 2019 | | | [address] | | | | | | [place] | | | | | | [address] | | | | | | | | +--------+ + + + + | 08/17/ | Office | Oncology | Wilton Jeff MD | | | 2019 | Visit | | [address] | | | | | | [place], [place] | | | | | | [address] | | | | | | | | +--------+ + + + + documented as of this encounter Visit Diagnoses Not on filedocumented in this encounter"
--- OUTSIDE RECORDS SUMMARY | ~2020-06-23 | XMS | Encounter Summary ---
Demographics + + + | Address | [address] | | | [place] [address] | + + + | Home Phone | | + + + | Preferred Language | Unknown | + + + | Marital Status | Single | + + + | Congregation Affiliation | Unknown | + + + [...] Team Providers + +------+ + | Care Planning Manager Name | Role | Phone | + +------+ + | Myrna Mejia MD | PCP | | + +------+ + Encounter Details +--------+ + + + + | Date | Type | Department | Care Team | Description | +--------+ + + + + | 04/03/ | Orders Only | [facility] | Wilton Jeff MD | Mediastinal large | | 2019 | | HEMATOLOGY AND | [address] | B-cell lymphoma of | | | | ONCOLOGY [address] | [place], [place] | lymph nodes of | | | | [address] | [address] | multiple regions | | | | [place], [place] | | (HCC) (Primary Dx) | | | | [address] | | | | | | [phone] | | | +--------+ + + + [...] [place] | | | | | | [address] | | | | | | | | +--------+ + + + + | 06/29/ | Office | Oncology | Wilton Jeff MD | | | 2019 | Visit | | [address] | | | | | | [place] | | | | | | [address] | | | | | | | | | | | | Marilou Mcmullen, | | | | | | FIREWALL ADMINISTRATOR [address] | | | | | | [address] | | | | | | [place] [address] | | | | | | [phone] | | | | | | | | +--------+ + + + + | 06/29/ | Appointment | Infusion Therapy | Wilton Jeff MD | | | 2019 | | | [address] | | | | | | [place] | | | | | | [address] | | | | | | | | +--------+ + + + + | 07/14/ | Office | Otolaryngology | She Huang | | | 2019 | Visit | | DO Sophia Canela | | | | | | [place] [address] | | | | | | [place] [address] | | | | | | [phone] | | | | | | | | +--------+ + + + + | 07/20/ | Appointment | Infusion Therapy | Wilton Jeff MD | | | 2019 | | | [address] | | | | | | [place] | | | | | | [address] | | | | | | | | +--------+ + + + + | 07/20/ | Office | Oncology | Wilton Jeff MD | | | 2019 | Visit | | [address] | | | | | | [place] | | | | | | [address] | | | | | | | | +--------+ + + + + | 07/20/ | Appointment | Infusion Therapy | Wilton Jeff MD | | | 2019 | | | [address] | | | | | | [place] | | | | | | [address] | | | | | | | | +--------+ + + + + | 08/17/ | Appointment | Infusion Therapy | Wilton Jeff MD | | | 2019 | | | [address] | | | | | | [place] | | | | | | [address] | | | | | | | | +--------+ + + + + | 08/17/ | Office | Oncology | Wilton Jeff MD | | | 2020 | Visit | | [address] | | | | | | [place] | | | | | | [address] | | | | | | | | +--------+ + + + + documented as of this encounter Visit Diagnoses + + | Diagnosis | + + | 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
--- OUTSIDE RECORDS SUMMARY | ~2020-06-23 | XMS | Encounter Summary ---
Demographics + + + | Address | [address] | | | [place] [address] | + + + | Home Phone | | + + + | Preferred Language | Unknown | + + + | Marital Status | Single | + + + | Buddhist Affiliation | Unknown | + + + | Race | White | + + + | Ethnic Group | Not or | + + + Author + + + | Author | [facility] | | | and [place] | + + + | Organization | [facility] | | | and [...] Team Providers + +------+ + | Care Change Release Manager Name | Role | Phone | [...] | | region | [address] | [place] [address] | | | | | | [place], [place] | Phone: | | | | | | [address] | [phone] | | | | | | Phone: | Fax: | | | | | | [phone] | [phone] | | | | | | Fax: | | | | | | | [phone] | | +--------+--------+ + + + + Encounter Details +--------+---------+ + + + | Date | Type | Department | Care Team | Description | +--------+---------+ + + + | 03/17/ | Office | [facility] | She Huang | Cervical | | 2020 | Visit | NOSE AND THROAT [address] | J, DO [address] | lymphadenopathy | | | | [address] | [address] | (Primary Dx); | | | | [place], [place] | [place] [address] | Supraclavicular | | | | [address] | [phone] | adenopathy; Night | | | | [phone] | | sweats | +--------+---------+ + + [...] encounter Patient Instructions Patient Instructions Josefa Palumbo, Recycler - 03/17/2020 9:45 AM PDTSurgery D ate: 03/20/20 Location: [facility] ([address] [place] [address]) FYI: Please follow ALL pre-op instructions. Read [...] in regards to this appointment please call [phone]. A time for surgery is not given [...] please contact y our surgeon's office at [phone], Option 4. FMLA/SHORT-TERM DISABILITY PAPERWORK: PLEASE DROP IT OFF OR FAX IT TO OUR OFFICE ([phone]) SOON POSSIBLE. MAKE SURE TO INCLUDE TIME OFF NEEDED AND/OR WHEN YOU PLAN TO RETUR N TO WORK. PLEASE ALLOW 7-10 BUSINESS DAYS FOR COMPLETION. If you would like an estimate for your surgery, please contact the [facility] Financial Missile Facilities Repairer ors/Authorization Department at [phone]. What is Coronavirus? The Novel Coronavirus 2019 (COVID-19) is a new virus strain that is spread mainly from pers tx-ed-ctpukm through respiratory droplets when an infected person [...] are not available, use an alcohol-based hand hide buffer with at least 60 % alcohol covering [...] and need to call 911, notify the glove operator that you have or think you [...] COVID-19 symptoms, residents in nursing facilities or fci communities or home health, or those who [...] or preparing your food. ? Use hand hide buffer if soap and water are not available. [...] with soap and water or in the interline clerk/washer. ? Call ahead before visiting your [...] local public health website. CDC: COVID-19: https://www.cdc.gov/coronavirus/2019-ncov/index.html [place] Coronavirus Advisory: https://www.[facility].org/ulzkctzn-kxb-qcicwuvg/coron avirus-advisory Virtual Visits Available https://virtual.[facility].org/ documented in this encounter Progress Notes She [...] system. The possibil ity of "sound alike" drill operator pneumatic errors, additions or deletions may occur. If [...] [place] | | | | | | [address] | | | | | | | | +--------+ + + + + | 06/29/ | Office | Oncology | Wilton Jeff MD | | | 2019 | Visit | | [address] | | | | | | [place] | | | | | | [address] | | | | | | | | | | | | Marilou Mcmullen, | | | | | | GIS SOFTWARE DEVELOPER [address] | | | | | | [address] | | | | | | [place] [address] | | | | | | [phone] | | | | | | | | +--------+ + + + + | 06/29/ | Appointment | Infusion Therapy | Wilton Jeff MD | | | 2019 | | | [address] | | | | | | [place] | | | | | | [address] | | | | | | | | +--------+ + + + + | 07/14/ | Office | Otolaryngology | She Huang | | | 2019 | Visit | | DO Sophia Canela | | | | | | [address] | | | | | | [place] [address] | | | | | | [phone] | | | | | | | | +--------+ + + + + | 07/20/ | Appointment | Infusion Therapy | Wilton Jeff MD | | | 2019 | | | [address] | | | | | | [place] | | | | | | [address] | | | | | | | | +--------+ + + + + | 07/20/ | Office | Oncology | Wilton Jeff MD | | | 2019 | Visit | | [address] | | | | | | [place] | | | | | | [address] | | | | | | | | +--------+ + + + + | 07/20/ | Appointment | Infusion Therapy | Wilton Jeff MD | | | 2019 | | | [address] | | | | | | [place] | | | | | | [address] | | | | | | | | +--------+ + + + + | 08/17/ | Appointment | Infusion Therapy | Wilton Jeff MD | | | 2019 | | | [address] | | | | | | [place] | | | | | | [address] | | | | | | | | +--------+ + + + + | 08/17/ | Office | Oncology | Wilton Jeff MD | | | 2019 | Visit | | [address] | | | | | | [place] | | | | | | [address] | | | | | | | [...]
--- OUTSIDE RECORDS SUMMARY | ~2020-06-23 | XMS | Encounter Summary ---
Demographics + + + | Address | [address] | | | [place] [address] | + + + | Home Phone | | + + + | Preferred Language | Unknown | + + + | Marital Status | Single | + + + | Hindu Affiliation | Unknown | + + + | Race | White | + + + | Ethnic Group | Not or | + + + Author + + + | Author | [facility] | | | and [place] | + + + | Organization | [facility] | | | [...] Team Providers + +------+ + | Care Neon Sign Maker Name | Role | Phone | + [...] + + | 05/07/ | Telephone | [facility] | Wilton Jeff MD | Medication Question | | 2020 | | HEMATOLOGY AND | [address] | | | | | ONCOLOGY [address] | [place] | | | | | [address] | [address] | | | | | [place] | | | | | | [address] | | | | | | [phone] | | | +--------+ + + + [...] [place] | | | | | | [address] | | | | | | | | +--------+ + + + + | 06/29/ | Office | Oncology | Wilton Jeff MD | | | 2019 | Visit | | [address] | | | | | | [place] | | | | | | [address] | | | | | | | | | | | | Marilou Mcmullen, | | | | | | INFORMATION OPERATOR [address] | | | | | | [address] | | | | | | [place] [address] | | | | | | [phone] | | | | | | | | +--------+ + + + + | 06/29/ | Appointment | Infusion Therapy | Wilton Jeff MD | | | 2019 | | | [address] | | | | | | [place] | | | | | | [address] | | | | | | | | +--------+ + + + + | 07/14/ | Office | Otolaryngology | She Huang | | | 2019 | Visit | | DO Sophia Canela | | | | | | [place] | | | | | | [place] [address] | | | | | | [phone] | | | | | | | | +--------+ + + + + | 07/20/ | Appointment | Infusion Therapy | Wilton Jeff MD | | | 2019 | | | [address] | | | | | | [place] | | | | | | [address] | | | | | | | | +--------+ + + + + | 07/20/ | Office | Oncology | Wilton Jeff MD | | | 2019 | Visit | | [address] | | | | | | [place] | | | | | | [address] | | | | | | | | +--------+ + + + + | 07/20/ | Appointment | Infusion Therapy | Wilton Jeff MD | | | 2019 | | | [address] | | | | | | [place] | | | | | | [address] | | | | | | | | +--------+ + + + + | 08/17/ | Appointment | Infusion Therapy | Wilton Jeff MD | | | 2019 | | | [address] | | | | | | [place] | | | | | | [address] | | | | | | | | +--------+ + + + + | 08/17/ | Office | Oncology | Wilton Jeff MD | | | 2019 | Visit | | [address] | | | | | | [place] | | | | | | [address] | | | | | | | | +--------+ + + + + documented as of this encounter Visit Diagnoses Not on filedocumented in this encounter"
--- OUTSIDE RECORDS SUMMARY | ~2020-06-23 | XMS | Encounter Summary ---
Demographics + + + | Address | [address] | | | [place] [address] | + + + | Home Phone | | + + + | Preferred Language | Unknown | + + + | Marital Status | Single | + + + | Jewish Affiliation | Unknown | + + + | Race | White | + + + | Ethnic Group | Not or | + + + Author + + + | Author | [facility] | | | and [place] | + + + | Organization | [facility] | | | and [...] Team Providers + +------+ + | Care Water Quality Assistant Name | Role | Phone | + +------+ + PCP | Unavailable | + +------+ + Encounter Details +--------+ + + + + | Date | Type | Department | Care Team | Description | +--------+ + + + + | 03/04/ | Imaging | [facility] | Provider, | | | 2019 | Exam | [facility] | MD [address] | | | | | IMAGING [address] | [address] | | | | | [address] | [place] [address] | | | | | [place] [address] | | | | | | [phone] | | | +--------+ + + + [...] [place] | | | | | | [address] | | | | | | | | +--------+ + + + + | 06/29/ | Office | Oncology | Wilton Jeff MD | | | 2019 | Visit | | [address] | | | | | | [place] | | | | | | [address] | | | | | | | | | | | | Marilou Mcmullen, | | | | | | WIRE GALVANIZER [address] | | | | | | [address] | | | | | | [place] [address] | | | | | | [phone] | | | | | | | | +--------+ + + + + | 06/29/ | Appointment | Infusion Therapy | Wilton Jeff MD | | | 2019 | | | [address] | | | | | | [place] | | | | | | [address] | | | | | | | | +--------+ + + + + | 07/14/ | Office | Otolaryngology | She Huang | | | 2019 | Visit | | DO Sophia Canela | | | | | | [place] [address] | | | | | | [place] [address] | | | | | | [phone] | | | | | | | | +--------+ + + + + | 07/20/ | Appointment | Infusion Therapy | Wilton Jeff MD | | | 2019 | | | [address] | | | | | | [place] | | | | | | [address] | | | | | | | | +--------+ + + + + | 07/20/ | Office | Oncology | Wilton Jeff MD | | | 2019 | Visit | | [address] | | | | | | [place] | | | | | | [address] | | | | | | | | +--------+ + + + + | 07/20/ | Appointment | Infusion Therapy | Wilton Jeff MD | | | 2019 | | | [address] | | | | | | [place] | | | | | | [address] | | | | | | | | +--------+ + + + + | 08/17/ | Appointment | Infusion Therapy | Wilton Jeff MD | | | 2019 | | | [address] | | | | | | [place] | | | | | | [address] | | | | | | | | +--------+ + + + + | 08/17/ | Office | Oncology | Wilton Jeff MD | | | 2019 | Visit | | [address] | | | | | | [place], [place] | | | | | | [address] | | | | | | | [...]
--- OUTSIDE RECORDS SUMMARY | ~2020-06-23 | XMS | Encounter Summary ---
Demographics + + + | Address | [address] | | | [place] [address] | + + + | Home Phone [...] Team Providers + +------+ + | Care Nurse Practitioner Physician Assistant Name | Role | Phone | + +------+ + | Myrna Mejia MD | PCP | | + +------+ + Encounter Details +--------+ + + + + | Date | Type | Department | Care Team | Description | +--------+ + + + + | 04/03/ | Documentati | [facility] | Bandar Vega | | | 2020 | on | HEMATOLOGY AND | R, RPH | | | | | ONCOLOGY PHARMACY | | | | | | [address] | | | | | | [place] | | | | | | [address] | | | | | | [phone] | | | +--------+ + + + [...] documented as of this encounter Progress Notes Bandar Vega, [facility] - 04/03/2020 3:20 PM PDT [facility] Hematology and Oncology Clinical Pharmacy New Patient Review - -R Patient: Asad Longo 29 y.o. male 1990 Oncology Provider: Allergies: Patient has no known allergies. 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 Treatment Plan: Recurring Treatments Type Current Treatment Planned For Outpatient DA-EPOCH + riTUXimab ONCOLOGY TREATMENT Day 1, Cycle 1 Mon04/06/2020 Pharmacologic Category Chemotherapy Regimen, Lymphoma, non-Hodgkin Regimen Use Lymphoma, non-Hodgkin EPOCH (Dose-Adjusted)-R (NHL); R-EPOCH Dose Adjusted (NHL); Bagvebp-Sxweazkqh-Ohzjibpeyr-Vi ovcllyscy-Qdijogzkxhyqnlhj-Sfqkxukuhjf (Dose-Adjusted) (NHL); Rituximab-EPOCH Dose Adjusted (NHL) Regimen Rituximab: IV: 375 mg/m2 day 1 [total dose/cycle = 375 mg/m2] Etoposide: IV: 50 mg/m2/day continuous infusion days 1 to 4 [total dose/cycle = 200 mg/m2] Vincristine: IV: 0.4 mg/m2/day continuous infusion days 1 to 4 [total dose/cycle = 1.6 mg/m2] Doxorubicin: IV: 10 mg/m2/day continuous infusion days 1 to 4 [total dose/cycle = 40 mg/m2] Cyclophosphamide: IV: 750 mg/m2 day 5 [total dose/cycle = 750 mg/m2] Prednisone: Oral: 60 mg/m2/day (given once daily or in 2 divided doses) days 1 to 5 (some c enters may use 60 mg/m2 twice daily days 1 to 5) [total dose/cycle = 300 mg/m2 or 600 mg/m2] Filgrastim: SubQ: 5 mcg/kg/day beginning day 6; continue until ANC recovery Repeat cycle every 21 days (for at least 2 cycles beyond best response; minimum of 6 cycles and maximum of 8 cycles) with etoposide, doxorubicin, and cyclophosphamide dose adjustments (based on CBC 2 times/week) according to the following schedule: Lucien ANC ?500/mm3: 20% increase (above previous cycle) for etoposide, doxorubicin, and cyc lophosphamide Lucien ANC <500/mm3 (on 1 or 2 measurements): Same doses as previous cycle Lucien ANC <500/mm3 (on ?3 measurements): 20% decrease below previous cycle for etoposide, d oxorubicin, and cyclophosphamide (dosing adjustments below starting dose levels only apply t o cyclophosphamide) Home Medications: Prior to Admission medications Medication Sig Start Date End Date Taking? Authorizing Provider albuterol (VENTOLIN HFA) 90 mcg/puff inhaler Inhale 2 puffs into the lungs every 6 hours as needed for Wheezing. Historical ProviderMD albuterol 2.5 mg/3 mL nebulizer solution 03/04/20 Historical Provider, allopurinol (ZYLOPRIM) 300 mg tablet Take 1 tablet by mouth daily for a total of 14 days. Begin taking this 2 days before the first cycle of chemotherapy.. 04/02/20 Wilton Jeff MD benzonatate (TESSALON) 100 mg capsule Take 100 mg by mouth 3 times daily as needed for Coug h. Historical Provider, famotidine (PEPCID) 20 mg tablet Daily. 03/04/20 Historical Provider, HYDROcodone-acetaminophen (NORCO) 5-325 mg per tablet Take 1 tablet by mouth every 6 hours as needed for Pain. 03/27/20 Wilton Jeff MD lidocaine-prilocaine (EMLA) cream Apply generously to port site and cover with tegaderm or saran wrap 1 hour prior to chemo.. 04/02/20 Wilton Jeff MD naproxen (NAPROSYN) 500 mg tablet Take 500 mg by mouth 2 times daily (with breakfast & dinn er). Historical Provider, NICOTINE TD Place onto the skin. Historical Provider, ondansetron (ZOFRAN ODT) 4 mg disintegrating tablet Take 1 tablet by mouth every 6 hours as needed for Nausea. 03/20/20 She Huang, ondansetron (ZOFRAN) 4 mg tablet 3 times daily. 03/04/20 Historical ProviderMD ondansetron (ZOFRAN) 8 MG tablet Take 1 tablet by mouth every 8 hours as needed (Nausea/Vom iting). 04/02/20 Wilton Jeff MD predniSONE (DELTASONE) 50 mg tablet Take 2 tablets (total 100 mg) daily on days 1, 2, 3, 4, and 5 of each cycle of chemotherapy. 04/02/20 Wilton Jeff MD prochlorperazine 10 mg tablet Take 1 tablet by mouth every 6 hours as needed (Nausea/Vomiti ng). 04/02/20 Wilton Jeff MD sulfamethoxazole-trimethoprim (BACTRIM DS) 800-160 mg per tablet Take 1 tablet by mouth Thr ee times a week. 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 Range 03/27/2020 09:15 Creatinine Latest Ref Range: 0.7 - 1.2 mg/dL 0.85 Potassium: Lab Results Component Value Date/Time K 4.1 03/27/2020 09:15 AM Calcium: Lab Results Component Value Date/Time CALCIUM 9.3 03/27/2020 09:15 AM LFT: Lab Results Component Value Date ALT 14 03/27/2020 AST 13 03/27/2020 ALKPHOS 60 03/27/2020 BILI 0.3 03/27/2020 Platelets: Lab Results Component Value Date/Time PLT 542 (H) 04/02/2020 11:41 AM ANC: Lab Results Component Value Date/Time NEUTROSABS 11.20 (H) 04/02/2020 11:41 AM Hepatitis B: Results for ASAD LONGO ( ) as of 04/03/2020 15:20 Ref. Range 04/02/2020 11:41 Hepatitis A Ab Total Latest Ref Range: Negative Negative Hepatitis B Surface Antibody Qual Unknown Non Reactive HCV Ab Latest Ref Range: 0.0 - 0.9 s/co ratio <0.1 Hepatitis B Surface Ag Latest Ref Range: Negative Negative HEPATITIS B CORE AB TOTAL Latest Ref Range: Negative Negative Pharmacist Assessment: Drug Interactions of Concern: None Duplicate/Contraindications/Other: None Emetogenicity risk: High Support Medications Ordered Appropriate: Yes, per provider note: "Prescriptions for allopur inol, antiemetics, EMLA cream, prednisone and Bactrim DS were sent to his pharmacy." Treatment plan (medications/dosage/frequency) in agreement with provider note or confirmed with provider: Yes, per provider note: "As the treatment for primary mediastinal B-cell lymp jorge alberto comprises inpatient chemotherapy (R EPOCH)," Has a chemo consent been signed: Yes, per MA note: "Consent for Rituximab, Etoposide, Predn isone, Vincristine, Cyclophosphamide, Doxorubicin and Pegfilgrastim, was signed by Dr. Jomar shay and witnessed by myself." Recommended Actions: None Work-up Performed By BANDAR VEGA RPH April 03, 2020 3:20 PM PDT documented in thi s encounter Plan of [...] [place] | | | | | | [id number] | | | | | | | | +--------+ + + + + | 06/29/ | Office | Oncology | Wilton Jeff MD | | 2019 | Visit | | [address] | | | | | | [place] | | | | | | [address] | | | | | | | | | | | | Marilou Mcmullen, | | | | | | COORDINATOR OF HEALTH SERVICES [address] | | | | | [address] | | | | | | [place] [address] | | | | | | [phone] | | | | | | | | +--------+ + + + + | 06/29/ | Appointment | Infusion Therapy | Wilton Jeff MD | | | 2019 | | | [address] | | | | | | [place] | | | | | | [address] | | | | | | | | +--------+ + + + + | 07/14/ | Office | Otolaryngology | She Huang | | | 2019 | Visit | | DO Sophia Canela | | | | | | [address] | | | | | | [place] [address] | | | | | | [phone] | | | | | | | | +--------+ + + + + | 07/20/ | Appointment | Infusion Therapy | Wilton Jeff MD | | | 2019 | | | [address] | | | | | | [place] | | | | | | [address] | | | | | | | | +--------+ + + + + | 07/20/ | Office | Oncology | Wilton Jeff MD | | | 2019 | Visit | | [address] | | | | | | [place] | | | | | | [address] | | | | | | | | +--------+ + + + + | 07/20/ | Appointment | Infusion Therapy | Wilton Jeff MD | | | 2019 | | | [address] | | | | | | [place] | | | | | | [address] | | | | | | | | +--------+ + + + + | 08/17/ | Appointment | Infusion Therapy | Wliton Jeff MD | | | 2019 | | | [address] | | | | | | [place] | | | | | | [address] | | | | | | | | +--------+ + + + + | 08/17/ | Office | Oncology | Wilton Jeff MD | | | 2020 | Visit | | [address] | | | | | | [place] | | | | | | [address] | | | | | | | | +--------+ + + + + documented as of this encounter Visit Diagnoses Not on filedocumented in this encounter
--- OUTSIDE RECORDS SUMMARY | ~2020-06-23 | XMS | Encounter Summary ---
Demographics + + + | Address | [address] | | | [place] [address] | + + + | Home Phone [...] Author + + + | Author | [facility] | | | and [place] | + + + | Organization | [facility] | | | [...] Team Providers + +------+ + | Care Channel Program Manager Name | Role | Phone | [...] + + | 06/12/ | Telephone | [facility] | Fabio Hallman RN | Appointment | | 2019 | | INFUSION SUPPORT | | | | | | SERVICES [address] | | | | | | [address] | | | | | | [address] [place] | | | | | | [address] | | | | | | [phone] | | | +--------+ + + + [...] [place] | | | | | | [address] | | | | | | | | +--------+ + + + + | 06/29/ | Office | Oncology | Wilton Jeff MD | | | 2019 | Visit | | [address] | | | | | | [place] | | | | | | [address] | | | | | | | | | | | | Marilou Mcmullen, | | | | | | [address] | | | | | | [address] | | | | | | [place] [address] | | | | | | [phone] | | | | | | | | +--------+ + + + + | 06/29/ | Appointment | Infusion Therapy | Wilton Jeff MD | | | 2019 | | | [address] | | | | | | [place] | | | | | | [address] | | | | | | | | +--------+ + + + + | 07/14/ | Office | Otolaryngology | She Huang | | | 2019 | Visit | | DO Sophia Canela | | | | | | [address] | | | | | | [place] [address] | | | | | | [phone] | | | | | | | | +--------+ + + + + | 07/20/ | Appointment | Infusion Therapy | Wilton Jeff MD | | | 2019 | | | [address] | | | | | | [place] | | | | | | [address] | | | | | | | | +--------+ + + + + | 07/20/ | Office | Oncology | Wilton Jeff MD | | | 2019 | Visit | | [address] | | | | | | [place] | | | | | | [address] | | | | | | | | +--------+ + + + + | 07/20/ | Appointment | Infusion Therapy | Wilton Jeff MD | | | 2019 | | | [address] | | | | | | [place] | | | | | | [address] | | | | | | | | +--------+ + + + + | 08/17/ | Appointment | Infusion Therapy | Wilton Jeff MD | | | 2019 | | | [address] | | | | | | [place] | | | | | | [address] | | | | | | | | +--------+ + + + + | 08/17/ | Office | Oncology | Wilton Jeff MD | | | 2019 | Visit | | [address] | | | | | | [place] | | | | | | [address] | | | | | | | | +--------+ + + + + documented as of this encounter Visit Diagnoses Not on filedocumented in this encounter"
--- OUTSIDE RECORDS SUMMARY | ~2020-06-23 | XMS | Encounter Summary ---
Demographics + + + | Address | [address] | | | [place] [address] | + + + | Home Phone [...] + + + | Author | [facility] | | | and [place] | + + + | Organization | [facility] | | | and [...] Team Providers + +------+ + | Care Beef Farmer Name | Role | Phone | + +------+ + | Myrna Mejia MD | PCP | | + +------+ + Encounter Details +--------+ + + + + | Date | Type | Department | Care Team | Description | +--------+ + + + + | 03/17/ | Prep for | [facility] | She Huang | | | 2020 | Procedure | NOSE AND THROAT [address] | J, DO [address] | | | | | [address] | [address] | | | | | [place] | [place] [address] | | | | | [address] | [phone] | | | | | [phone] | | | +--------+ + + + [...] [place] | | | | | | [address] | | | | | | | | +--------+ + + + + | 06/29/ | Office | Oncology | Wilton Jeff MD | | | 2019 | Visit | | [address] | | | | | | [place] | | | | | | [address] | | | | | | | | | | | | Marilou Mcmullen, | | | | | | [address] | | | | | | [address] | | | | | | [place] [address] | | | | | | [phone] | | | | | | | | +--------+ + + + + | 06/29/ | Appointment | Infusion Therapy | Wilton Jeff MD | | | 2019 | | | [address] | | | | | | [place] | | | | | | [address] | | | | | | | | +--------+ + + + + | 07/14/ | Office | Otolaryngology | She Huang | | 2019 | Visit | | DO Sophia Canela | | | | | | [address] | | | | | | [place] [address] | | | | | | [phone] | | | | | | | | +--------+ + + + + | 07/20/ | Appointment | Infusion Therapy | Wilton Jeff MD | | | 2019 | | | [address] | | | | | | [place] | | | | | | [address] | | | | | | | | +--------+ + + + + | 07/20/ | Office | Oncology | Wilton Jeff MD | | | 2019 | Visit | | [address] | | | | | | [place] | | | | | | [address] | | | | | | | | +--------+ + + + + | 07/20/ | Appointment | Infusion Therapy | Wilton Jeff MD | | | 2019 | | | [address] | | | | | | [place] | | | | | | [address] | | | | | | | | +--------+ + + + + | 08/17/ | Appointment | Infusion Therapy | Wilton Jeff MD | | | 2019 | | | [address] | | | | | | [place] | | | | | | [id number] | | | | | | | | +--------+ + + + + | 08/17/ | Office | Oncology | Wilton Jeff MD | | | 2019 | Visit | | [address] | | | | | | [place] | | | | | | [phone] | | | | | | | | +--------+ + + + + documented as of this encounter Visit Diagnoses Not on filedocumented in this encounter"
--- OUTSIDE RECORDS SUMMARY | ~2020-06-23 | XMS | Encounter Summary ---
Demographics + + + | Address | [address] | | | [place] [address] | + + + | Home Phone [...] Team Providers + +------+ + | Care Moisture Tester Name | Role | Phone | + [...] + + | 04/27/ | Telephone | [facility] | Tina Cdaet RN | Triage | | 2019 | | INFUSION SUPPORT | | | | | | SERVICES [address] | | | | | | [address] | | | | | | [address] [place] | | | | | | [address] | | | | | | [phone] | | | +--------+ + + + [...] - 10:25 AM PDTOutLook Email sent to [facility] Direct Admit Notification: ONC DA Patient: [...] [place] | | | | | | [address] | | | | | | | | +--------+ + + + + | 06/29/ | Office | Oncology | Wilton Jeff MD | | | 2019 | Visit | | [address] | | | | | | [place] | | | | | | [address] | | | | | | | | | | | | Marilou Mcmullen, | | | | | | SAW BOSS [address] | | | | | [address] | | | | | | [place] [address] | | | | | | [phone] | | | | | | | | +--------+ + + + + | 06/29/ | Appointment | Infusion Therapy | Wilton Jeff MD | | | 2019 | | | [address] | | | | | | [place] | | | | | | [address] | | | | | | | | +--------+ + + + + | 07/14/ | Office | Otolaryngology | She Huang | | | 2019 | Visit | | DO Sophia Canela | | | | | | [address] | | | | | | [place] [address] | | | | | | [phone] | | | | | | | | +--------+ + + + + | 07/20/ | Appointment | Infusion Therapy | Wilton Jeff MD | | | 2019 | | | [address] | | | | | | [place] | | | | | | [address] | | | | | | | | +--------+ + + + + | 07/20/ | Office | Oncology | Wilton Jeff MD | | | 2019 | Visit | | [address] | | | | | | [place] | | | | | | [address] | | | | | | | | +--------+ + + + + | 07/20/ | Appointment | Infusion Therapy | Wilton Jeff MD | | | 2019 | | | [address] | | | | | | [place] | | | | | | [address] | | | | | | | | +--------+ + + + + | 08/17/ | Appointment | Infusion Therapy | Wilton Jeff MD | | | 2019 | | | [address] | | | | | | [place] | | | | | | [address] | | | | | | | | +--------+ + + + + | 08/17/ | Office | Oncology | Wilton Jeff MD | | | 2019 | Visit | | [address] | | | | | | [place] | | | | | | [address] | | | | | | | | +--------+ + + + + documented as of this encounter Visit Diagnoses Not on filedocumented in this encounter"
--- OUTSIDE RECORDS SUMMARY | ~2020-06-23 | XMS | Encounter Summary ---
Demographics + + + | Address | [address] | | | [place] [address] | + + + | Home Phone [...] Author + + + | Author | [facility] | | | and [place] | + + + | Organization | [facility] | | | [...] Team Providers + +------+ + | Care Tax Staff Accountant Name | Role | Phone | + +------+ + | Myrna Mejia MD | PCP | | + +------+ + Encounter Details +--------+ + + + + | Date | Type | Department | Care Team | Description | +--------+ + + + + | 04/02/ | Hospital | [facility] | Wilton Jeff MD | Diffuse large B-cell | | 2019 | Encounter | HEMATOLOGY AND | [address] | lymphoma, | | | | ONCOLOGY INFUSIONS | [place], [place] | unspecified body | | | | [address] | [id number] | region (HCC) | | | | [address]VE [place], [place] | | (Primary Dx); | | | | [address] | AshokMonica Y, | Mediastinal large | | | | [phone] | Marilou Velázquez, | B-cell lymphoma of | | | | | DINING SERVICES DIRECTOR [address] | lymph nodes of | | | | | [address] | multiple regions | | | | | [place] [address] | (HCC); High risk | | | | | [phone] | medication use; | | | | | | Cervical | | | | | | lymphadenopathy | +--------+ + + + + Social [...] + + + | Blood Pressure | 127/85 | 04/02/2020 11:52 AM | | | | | PDT | | + + + + + | Pulse | 100 | 04/02/2020 12:03 PM | | | | | PDT | | + + + + + | Temperature | 36.6 C (97.8 F) | 04/02/2020 11:01 AM | | | | | PDT | | + + + + + | Respiratory Rate | - | - | | + + + + + | Oxygen Saturation | 97% | 04/02/2020 11:52 AM | | | | | PDT | | + + + + + | Inhaled Oxygen | - | - | | | Concentration | | | | + + + + + | Weight | 84.4 kg (186 lb 1.6 | 04/02/2020 11:01 AM | | | | oz) | PDT | | + + + + + | Height | - | - | | + + + + + | Body Mass Index | 25.96 | 04/01/2020 9:13 AM | | | | | PDT | | + + + + + documented in this encounter Discharge Instructions Patient Instructions Monica Pulido RN - 04/02/2020 11:12 AM PDT Bone Marrow Biopsy and Aspiration Discharge Instructions Following your Bone Marrow- - Do not make any legal decisions for 24 hours. - Do not operate a vehicle for 24 hours - Do not shower for 24 hours - No strenuous activity for 24 hours - Leave the pressure bandage on for 24 hours. - You may remove the tape after you shower. Pain- - Some tenderness around the site is normal and can last for 12-48 hours. - Apply ice to the site as needed for 20 minutes on 20 minutes off. Call your doctor if any of the following occurs - Severe Pain - New onset of pain 24 hour after the procedure. - Redness, swelling, increase pain, excessive bleeding, or discharge from the biopsy site. - Signs of infection including fever (of 100.5 F or higher) and chills. During business hours please call ; For after hours, weekends, and holidays please call Outcome- The pathologist will give your doctor information about the bone marrow, which will help yo ur doctor make a diagnosis. You will typically have a follow up appointment with your doctor 7-10 days after the procedure to discuss the results. documented in this encounter Medications at Time [...] chemotherapy.. | | | | | | (HCC) [...] | | | | | | | ([facility]) | | | | | | + [...] encounter Progress Notes Monica Pulido RN - 04/02/2020 10:55 AM PDTBone marrow biopsy done . Pt got 3 mg versed , he was very anxious and emotional throughout the procedure . Compressive bandage applied . Pt was given tylenol before he left . His mom is the jinrikisha driver . Discharge instructions given . Pt will be starting rituxan epoch next week once the pre auth is done . Pt has done his h epatitis panel today , waiting for result so he can be pre authorized for his tx . All rx fa xed to his retail pharmacy for ondansetran , prochlorperazine , emla cream , bactrim (pt nee ds to start same day of his rituxan ) alluprinol , pt needs to start 2 days prior his chemo infsion (rituxan) and prednisone d1 of his epoch . Pt left the clinic stable with explanatio n how to take his meds. documented in this encounter Procedure Notes Mairlou Mcmullen, DINING SERVICES DIRECTOR - 04/02/2020 10:55 AM PDTPrior to the procedure, I explained the risks involved with bone marrow biopsy. I explained the risk for bleeding and that we will monito r any blood loss throughout the procedure and hold pressure at the biopsy site afterward to facilitate clotting. I explained the risk for infection and that we will be using a sterile technique and cleansing with Chloraprep prior to the biopsy. I finally explained the risk fo r pain and explained I will be using local anesthesia to control the pain. There are also ri sks associated with anxiolysis including respiratory depression. I explained that we will mo nitor his vital signs throughout the procedure. The patient had no other questions or concer ns and consented to the biopsy. A time out was performed prior to the procedure to confirm c orrect patient, correct procedure, and allergies. An oral, heart, and lung exam were complet ed prior to the procedure and were unremarkable. The patient was highly anxious prior to the procedure. One mg of versed was given prior to beginning. He was tearful. Two additional mg of versed were given. He remained tearful and s cared. The patient was placed in the left lateral decubitus position. The right posterior-superior iliac crest was identified and draped in the usual sterile fashion after prepping with Chlo raprep. Seven mLs of 2% lidocaine was injected into the area for anesthesia and a small inc ision was made with a #11 scalpel. The [place] needle was introduced percutaneously into t he marrow space, the trochar was removed, and 10mL of free-flowing marrow aspirate was obtai colleen and sent to the laboratory for analysis. The patient was crying out and yelling during t he procedure. The trochar was replaced and the needle withdrawn. The bone was reentered in a slightly different location with the [employer] needle. The patie nt exhibited severe pain and was yelling out. When the needle was seated, the obturator wa s removed and the needle advanced an additional 1 cm then withdrawn. A core biopsy was obta ined and trabecular bone was noted on at least 1/3 of the specimen. A second core was attemp akbar to assure an adequate specimen was retrieved. The patient was shaking in pain and tearfu l, yelling. The second core was not obtained. Minimal bleeding was noted. The area was samuel nsed with alcohol and a sterile dressing with compression bandage was applied by the RN. This was a challenging procedure due to the patient's pain response and severe, debilitatin g anxiety. He was consolable after the procedure had concluded. Further bone marrow biopsies should be done under full sedation for this reason. Marilou Mcmullen, MSN, DINING SERVICES DIRECTOR, AOCNP [facility] Hematology and Oncology documented in this e ncounter Miscellaneous Notes Addendum Note - Monica Pulido RN - 04/03/2020 10:09 AM PDT Encounter addended by: Jessica Pulido RN on: 04/03/2020 10:09 AM Actions taken: Flowsheet accepted Electronically signed by Monica Pulido RN at 2019 10:09 AM PDTdocumented in this encounter Plan [...] [place] | | | | | | [address] | | | | | | | | +--------+ + + + + | 06/29/ | Office | Oncology | Wilton Jeff MD | | | 2019 | Visit | | [address] | | | | | | [place] | | | | | | [address] | | | | | | | | | | | | Marilou Mcmullen, | | | | | | DINING SERVICES DIRECTOR [address] | | | | | | [address] | | | | | | [place] [address] | | | | | | [phone] | | | | | | | | +--------+ + + + + | 06/29/ | Appointment | Infusion Therapy | Wilton Jeff MD | | | 2019 | | | [address] | | | | | | [place] | | | | | | [address] | | | | | | | | +--------+ + + + + | 07/14/ | Office | Otolaryngology | She Huang | | | 2019 | Visit | | DO Sophia Canela | | | | | | [address] | | | | | | [place] [address] | | | | | | [phone] | | | | | | | | +--------+ + + + + | 07/20/ | Appointment | Infusion Therapy | Wilton Jeff MD | | | 2019 | | | [address] | | | | | | [place] | | | | | | [address] | | | | | | | | +--------+ + + + + | 07/20/ | Office | Oncology | Wilton Jeff MD | | | 2019 | Visit | | [address] | | | | | | [place] | | | | | | [address] | | | | | | | | +--------+ + + + + | 07/20/ | Appointment | Infusion Therapy | Wilton Jeff MD | | | 2019 | | | [address] | | | | | | [place] | | | | | | [address] | | | | | | | | +--------+ + + + + | 08/17/ | Appointment | Infusion Therapy | Wilton Jeff MD | | | 2019 | | | [address] | | | | | | [place] | | | | | | [address] | | | | | | | | +--------+ + + + + | 08/17/ | Office | Oncology | Wilton Jeff MD | | | 2019 | Visit | | [address] | | | | | | [place] | | | | | | [address] | | | | | | | | +--------+ + + + + documented as of this encounter Visit Diagnoses + + | Diagnosis | + + | Diffuse large B-cell lymphoma, unspecified body region (HCC) - Primary | + + | 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) | + + | High risk medication use Encounter for long-term (current) use of other medications | + + | Cervical lymphadenopathy Enlargement of lymph nodes | + + documented in this encounter Administered Medications + +--------+ +--------+------+------+ | Medication Order | MAR | Action | Dose | Rate | Site | | | Action | Date | | | | + +--------+ +--------+------+------+ | acetaminophen (TYLENOL) tablet | Given | 04/02/20 | 650 mg | | | | 650 mg 650 mg, Oral, EVERY 4 | | 20 1:01 | | | | | HOURS PRN, Pain, Starting Fadia | | PM PDT | | | | | 04/02/20 at 1225 | | | | | | + +--------+ +--------+------+------+ +---+---+ | | | +---+---+ + +-------+ +------+---+---+ | midazolam (VERSED) 1 mg/mL | Given | 04/02/20 | 1 mg | | | | injection 0.5-1 mg 0.5-1 mg, | | 20 11:49 | | | | | Intravenous, EVERY 5 MIN PRN, | | AM PDT | | | | | Sedation, per provider direction | | | | | | | up to a maximum of 3 mg total., | | | | | | | Starting [facility] 04/02/20 at 1106 | | | | | | + +-------+ +------+---+---+ +-------+ +------+---+---+ | Given | 04/02/20 | 1 mg | | | | | 20 11:46 | | | | | | AM PDT | | | | +-------+ +------+---+---+ | Given | 04/02/20 | 1 mg | | | | | 20 11:40 | | | | | | AM PDT | | | | +-------+ +------+---+---+ +---+---+ | | | +---+---+ documented in this encounter"
--- OUTSIDE RECORDS SUMMARY | ~2020-06-23 | XMS | Encounter Summary ---
Demographics + + + | Address | [address] | | | [place] [address] | + + + | Home Phone [...] Author + + + | Author | [facility] | | | and [place] | + + + | Organization | [facility] | | | and [...] Team Providers + +------+ + | Care Web Press Jogger Name | Role | Phone | + [...] + + | 04/27/ | Office | [facility] | Wilton Jeff MD | Diffuse large B-cell | | 2019 | Visit | HEMATOLOGY AND | [address] | lymphoma of lymph | | | | ONCOLOGY [address] | [place] | nodes of multiple | | | | [address] | [address] | regions (HCC) | | | | [facility] | | (Primary Dx) | | | | [address] | | | | | | [phone] | | | +--------+---------+ + + + [...] might be different from t he original. [facility] Hematology & Oncology Oncology Progress Note [...] of rituximab on April 06, 2020 at [facility]. He then received days 1-5 of EPOCH [...] CERVICAL NODE; Surgeon: She Huang DO; Location: [facility] Family History Problem Relation Age of [...] file Gets together: Not on file Attends hinduism service: Not on file Active member of [...] Daily. 10 tablet 0 aluminum & magnesium skggqbdno-fntgdrscikp-rdlyqxzfujWZPQT-lidocaine Swish and spit 15 mLs every 4 hours as needed for Sore Throat. 600 mL 2 benzonatate (TESSALON) 100 mg capsule Take 100 mg by mouth 3 times daily as needed for Cough. jpdrnlegekiupue-evjjuiyyptnddx-wqolbazz (DUKES MOUTHWASH) suspension Swish and spit 10 [...] of rituximab on April 06, 2020 at [facility]. He then received days 1-5 of EPOCH [...] any questions or concerns. Wilton Jeff MD [facility] Hematology & Oncology 04/27/2020 Portions of [...] [place] | | | | | | [address] | | | | | | | | +--------+ + + + + | 06/29/ | Office | Oncology | Wilton Jeff MD | | | 2019 | Visit | | [address] | | | | | | [place] | | | | | | [address] | | | | | | | | | | | | Marilou Mcmullen, | | | | | | HOME SECURITY PROFESSIONAL [address] | | | | | [address] | | | | | | [place] [address] | | | | | | [phone] | | | | | | | | +--------+ + + + + | 06/29/ | Appointment | Infusion Therapy | Wilton Jeff MD | | | 2019 | | | [address] | | | | | | [place] | | | | | | [address] | | | | | | | | +--------+ + + + + | 07/14/ | Office | Otolaryngology | She Huang | | | 2019 | Visit | | DO Sophia Canela | | | | | | [address] | | | | | | [place] [address] | | | | | | [phone] | | | | | | | | +--------+ + + + + | 07/20/ | Appointment | Infusion Therapy | Wilton Jeff MD | | | 2019 | | | [address] | | | | | | [place] | | | | | | [address] | | | | | | | | +--------+ + + + + | 07/20/ | Office | Oncology | Wilton Jeff MD | | | 2019 | Visit | | [address] | | | | | | [place] | | | | | | [address] | | | | | | | | +--------+ + + + + | 07/20/ | Appointment | Infusion Therapy | Wilton Jeff MD | | | 2019 | | | [address] | | | | | | [place] | | | | | | [address] | | | | | | | | +--------+ + + + + | 08/17/ | Appointment | Infusion Therapy | Wilton Jeff MD | | | 2019 | | | [address] | | | | | | [place] | | | | | | [address] | | | | | | | | +--------+ + + + + | 08/17/ | Office | Oncology | Wilton Jeff MD | | | 2019 | Visit | | [address] | | | | | | [place] | | | | | | [address] | | | | | | | | +--------+ + + + + documented as of this encounter Visit Diagnoses + + | Diagnosis | + + | 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
--- OUTSIDE RECORDS SUMMARY | ~2020-06-23 | XMS | Encounter Summary ---
Demographics + + + | Address | [address] | | [place] [address] | + + + | Home Phone | | + + + | Preferred Language | Unknown | + + + | Marital Status | Single | + + + | Zoroastrianism Affiliation | Unknown | + + + [...] Team Providers + +------+ + | [employer] Name | Role | Phone | + [...] | +--------+ + + + + | 04/29/ | Hospital | [facility] | Addie Whiteside MD | Diffuse large B-cell | | 2020 - | Encounter | [facility] | [address] | lymphoma of lymph | | | | CARE FLOOR [address] | [address] [place], [place] | nodes of multiple | | 05/04/ | | [address] | [id number] | regions (HCC) | | 2019 | | [place], [place] | | (Primary Dx); | | | | [address] | Jeremie Finch MD | Admission for | | | | [phone] | [address] | chemotherapy; Large | | | | | [place] [address] | B-cell lymphoma | | | | | [phone] | (HCC); Cervical | | | | | | lymphadenopathy; | | | | | Alan Davis MD | Supraclavicular | | | | | [address] | adenopathy | | | | | [place] [address] | | | | | | [phone] | | | | | | | [...] + + + | Blood Pressure | 123/82 | 2020 3:54 PM | | | | | PDT | | + + + + + | Pulse | 85 | 2020 3:54 PM | | | | | PDT | | + + + + + | Temperature | 36.9 C (98.5 F) | 2020 3:54 PM | | | | | PDT | | + + + + + | Respiratory Rate | 16 | 2020 3:54 PM | | | | | PDT | | + + + + + | Oxygen Saturation | 97% | 2020 3:54 PM | | | | | PDT | | + + + + + | Inhaled Oxygen | - | - | | | Concentration | | | | + + + + + | Weight | 94.7 kg (208 lb 11.2 | 2020 8:00 AM | | | | oz) | PDT | | + + + + + | Height | 180.3 cm (5' 11") | 04/29/2020 8:36 PM | | | | | PDT | | + + + + + | Body Mass Index | 29.11 | 04/29/2020 8:36 PM | | | | | PDT [...] + documented as of this encounter Discharge Summaries Alan Davis - 2020 8:21 AM PDT Service: Hospitalist Physician Discharge Summary Pt: Asad Longo AGE/SEX: 30 y.o. male ROOM: [address] [place] [address] PCP: Myrna Meija MD : 1990 Admit date: 04/29/2020 Discharge date and time: 2020 12:14 PM PDT Admitting Physician: Addie Whiteside MD Discharge Physician: Alan Davis MD Consults: Nill Primary Discharge Diagnoses: Principal Problem: Diffuse large B-cell lymphoma of lymph nodes of multiple regions Active Problems: Tobacco abuse Resolved Problems: * No resolved hospital problems. * Secondary Discharge Diagnoses: NIll Discharged Condition: stable Significant Diagnostic Studies/Procedures: Recent Results (from the past 360 hour(s)) XR Chest 2 Vws Impression Redemonstrated right perihilar opacity consistent with mass better seen on prior PET. No superimposed parenchymal abnormality. Final Report Signed by: Ananth Vickesr Wendy Sign Date/Time: 2020 4:50 PM HPI and Hospital Course: 29 y.o.malewithcurrent smoker tobacco chew other than thatno significant past medic al history recent diagnosed March 2020 withdiffuse large B-cell lymphoma,positive for CD2 0, CD23,BCL 6, CD79a, and PAX 5. Ki-67 was 60%. ; in favor of a primary mediastinal la rge B-cell lymphoma.Requested by oncology teamforadmit for chemo Cycle#2nd 1-5 EPOCH.Scheduled for day 6 Neulasta.He was started Rituxan on April 0 He denies any recent cough congestion GI symptoms or skin rash oncology he is no longer nee ded allopurinol at that time He was admitted [place] [facility] [place] 08 April to 13 April for the first cycle of chemo. He is being admitted for 2nd cycle of chemo for diffuse cell large B cell lymphoma. Comple akbar his medications. Discussed with the who was at bedside. On the day of discharge n ot having any nausea or vomiting. No dizziness or lightheadedness. No abdominal pain or ch est pain. Issues Requiring Follow Up after Discharge: Follow-up hematology oncology Discharge Vitals: Vitals: 05/04/20 0336 05/04/20 0800 05/04/20 1126 05/04/20 1554 BP: 100/56 121/59 121/62 123/82 Pulse: 61 85 76 85 Resp: 15 16 16 16 Temp: 36.4 C (97.6 F) 36.6 C (97.9 F) 36.9 C (98.5 F) 36.9 C (98.5 F) TempSrc: Oral Oral Oral Oral SpO2: 97% 99% 96% 97% Weight: 94.7 kg (208 lb 11.2 oz) Height: Discharge Exam: Constitutional: Alert and oriented to person, place, and time. Cardiovascular: Normal rate, s1,s2 Pulmonary/Chest: Effort normal and breath sounds normal. No stridor. No respiratory distres s. no wheezes. no rales. exhibits no tenderness. Abdominal: Soft. NT Musculoskeletal: Normal range of motion.exhibits no tenderness. exhibits no edema. Neurological: Alert and oriented to person, place, and time. Skin: Skin is warm and dry. No rash noted. No erythema. No pallor. Psychiatric: Has a normal mood and affect. Behavior is normal. Judgment normal. Not suicida l LABS: Recent Labs Lab 05/04/2051705/03/205 05/02/20 0231 WBC 6.28 9.95 20.35* HGB 11.6* 10.8* 11.2* HCT 35.0* 34.3* 34.9* PLT 362 313 374 MONOPCT 4.80 9.10 -- Recent Labs Lab 05/04/2051705/03/20 0405 05/02/20 0231 04/30/20 0330 NA 137 141 137 < > 140 K 3.7 3.9 3.8 < > 4.1 CL 104 107 105 < > 106 CO2 28 29 26 < > 27 BUN 19 20 17 < > 23 CALCIUM 8.5 9.0 9.0 < > 8.8 ALKPHOS -- -- -- -- 77 ALT 38 -- -- -- 49 AST 17 -- -- -- 19 < > = values in this interval not displayed. Recent Labs Lab 04/30/20 0330 MG 1.9 Disposition: Hiome Patient Instructions: Discharge Medications Unchanged Medications Details acyclovir 200 mg capsule Take 4 capsules by mouth 2 times daily. Indications: Herpes Zoster Prevention in Immunocom promised aka: ZOVIRAX allopurinol 300 mg tablet Take 1 tablet by mouth Daily. aka: ZYLOPRIM aluminum & magnesium swkwnaxnk-lrxwsehwaxj-fvglavqknvDQJFN-lidocaine Swish and spit 15 mLs every 4 hours as needed for Sore Throat. benzonatate 100 mg capsule Take 100 mg by mouth 3 times daily as needed for Cough. aka: TESSALON lnwnlkkpufnipmg-zdyntkpzmarbza-rormeumn suspension Swish and spit 10 mLs 4 times daily. aka: ANIL MOUTHWASH lidocaine-prilocaine cream Apply generously to port site and cover with tegaderm or saran wrap 1 hour prior to chemo. . aka: EMLA NICOTINE TD Place onto the skin. ondansetron 4 mg disintegrating tablet Take 1 tablet by mouth every 6 hours as needed for Nausea. aka: ZOFRAN ODT prochlorperazine 10 mg tablet Take 1 tablet by mouth every 6 hours as needed (Nausea/Vomiting). Discontinued Medications predniSONE 50 mg tablet aka: DELTASONE Activity: activity as tolerated Diet: regular diet Wound Care: as directed Discharge medications reconciliation was completed by myself. I carefully reviewed all the medications with the patient. All the dosages was confirmed with the patient to the best o f patient's knowledge. I resumed most of his home medication after talking to the patient. I informed the patien t that, If you are not taking any of those medicines or if you think that dose is not righ t please talk to the primary care doctor for adjustment of doses and medications. Please marzena e all the medication to your PCP and show him what medication you are taking so that he can adjust your medications if needed. Follow-Up: [facility] [address] [facility] [phone] On 05/06/2020 White blood cell injection at 9am Myrna Heath MD [address] [facility] [place] [id number] Discharge took more than 35 minutes, to include final examination, discussion of admission, and preparation of prescriptions, instructions for ongoing care, follow up and dictation of summary. Signed: Alan Davis MD 12:14 PM PDT Portions of this chart may have been copied from previous notes for continuity of care purp ose Portions of this chart may have been created with [employer] voice recognition software. Occasi onal wrong-word or sound-alike substitutions may have occurred due to the inherent bahena itations of voice recognition software. Please read the chart carefully and recognize, using context, where these substitutions have occurred. documented in this encounte r Discharge Instructions Instructions Mayte Gunderson ARNP - 2020Oncology Instructions 1. Continue acyclovir 800mg by mouth twice daily. You received the morning dose prior to d ischarge today. 2. Continue to drink plenty of fluids. 3. You may take ondansetron (Zofran) alternating with prochlorperzine (compazine) if you ex perience nausea. Zofran may cause headache or constipation. Compazine may make you sleepy. 4. You are scheduled for your white blood cell injection in the clinic tomorrow at 3pm. 5. You must contact the clinic, call the provider [employer] combination [employer] and/or seek immediate medical car e for fever greater than 100.4 degrees and/or signs of infection or uncontrolled symptoms. 6. If you have non-urgent questions about your care, treatment or symptoms and desire to s peak with an oncology nurse, our Triage Nurse at [facility] can be reached during normal business hours at [phone]. 7. Recommend taking Claritin 10 mg by mouth twice daily starting tomorrow and for 3 days a fter white blood cell injection. documented in this encounter Medications at Time [...] Sore | | | | | | k-mwkqbevdugUCKHP-dp | Throat. | | | | | [...] documented as of this encounter Progress Notes Mayte Gunderson ARNP - 2020 9:00 AM PDTFormatting of this note might be different fr om the original. [facility] Service: Hematology and Oncology Progress Note Hospital Day: LOS: 5 days Patient Summary: Mr.Dylan Bernard Villarreal a 29 year oldmalewith no significant past medical history other than tobacco use (1/2-1 pack/day [id number]) who began experiencing cough, pleuritic ch est pain, dyspnea on exertion and URI symptoms beginning October 2019. He was initially t reated with antibiotics by his PCP with minimal improvement of symptoms. CT scan of the ch est onFebruary revealed a large cavitary lesion with mediastinal and axillary lympha denopathy .The patient also experienced an unintentional 30 pound weight loss since 2019. The patient was referred to Dr. [...] of a right deep cervical lymph nod e.Pathology revealed large atypical B lymphocytes was consistent withdiffuse large B-c ell lymphoma,positive for CD20, CD23,BCL 6, CD79a, and PAX 5. Ki-67 was 60%. The mor phologic and immunohistochemical findings were in favor of a primary mediastinal large B-marco l lymphoma. There was no evidence of MYC or MYC/IgH rearrangement (ie no double or triple hit lymphoma). The patient was referred to oncology and [...] IV (given as d ay 0 of DA-R-EPOCH) and received the chemotherapy portion of DA-R-EPOCH between April 09-2019 as follows: Rituximab 375 mg/m IV day -3 cycle 1; Etoposide 50 mg/m IV continuous infusion days 1 4; Vincristine 0.4 mg/m IV continuous infusion days 1 4; Doxorubicin 10 mg/m IV continuous infusion days 1 4; Cyclophosphamide 750 mg/m IV day 5; Prednison e 60mg/m2 (120mg per Dr. Jeff) PO days 1-5 on a 21 day cycle. He is currently admitted to receive cycle 2 of DA-R-EPOCH with dose adjustment by 20% for e toposide, doxorubicin and cyclophosphamide. SUBJECTIVE Events Overnight: Asad reports ongoing intermittent nausea. Denies vomiting or abdominal pain. No chest pain, shortness of breath or cough. Reports his appetite is good. OBJECTIVE Scheduled Medications acyclovir 800 mg Oral BID DOXOrubicin with etoposide and vinCRIStine infusion 12 mg/m2/day (Treatment Plan Recor ded) Intravenous Q24H pantoprazole 40 mg Oral QAM AC predniSONE 120 mg Oral Daily Continuous Infusions sodium chloride 0.9% 100 mL/hr at 05/04/20 0314 PRN Medications acetaminophen, uoxdqzyngwOAJGC-addrhq-wvtzxcgak mouthwash (ADS admixture), benzonatate, doc usate sodium, LORazepam, ondansetron, ondansetron, prochlorperazine, senna Physical Exam Vital Signs: BP 100/56 | Pulse 61 | Temp 36.4 C (97.6 F) (Oral) | Resp 15 | Ht 1.80 3 m (5' 11") | Wt 93.2 kg (205 lb 7.5 oz) | SpO2 97% | BMI 28.66 kg/m General: Alert and oriented. In no acute distress. Affect appropriate. Skin: Warm, dry and intact without rashes or ulcers. HEENT: Conjunctivae are clear. Sclera anicteric. Oral mucosa is moist and pink without lesi ons or evidence of thrush. No folliculitis or lesions along scalp. Lungs: Respiratory effort relaxed. No rales, rhonchi [...] fully engaged. Lab Data Recent Labs Lab 05/03/20 0405 05/02/20 0231 05/01/20 0505 04/30/20 0330 04/27/20 0832 WBC 9.95 20.35* 22.16* 12.57* 13.97* RBC 3.78* 3.91* 3.84* 3.58* 3.71* HGB 10.8* 11.2* 10.7* 10.2* 10.7* HCT 34.3* 34.9* 33.7* 32.3* 32.1* MCV 90.7 89.3 87.8 90.2 86.5 MCH 28.6 28.6 27.9 28.5 28.8 MCHC 31.5* 32.1 31.8* 31.6* 33.3 PLT 313 374 309 250 216 MPV 9.4 9.3 10.0 9.5 7.1 Recent Labs Lab 05/03/20 0405 05/02/20 0231 05/01/20 0505 04/30/20 0330 04/27/20 0832 NA 141 137 139 140 140 K 3.9 3.8 4.1 4.1 4.5 CL 107 105 108 106 105 CO2 29 26 26 27 27 ANIONGAP 9 10 9 11 13 BUN 20 17 17 23 21* ALKPHOS -- -- -- 77 95 ALT -- -- -- 49 56* AST -- -- -- 19 23 EGFR >60 >60 >60 >60 >60 PHOS -- -- -- 5.4* -- MG -- -- -- 1.9 -- Medical Imaging No results found for this or any previous visit (from the past 360 hour(s)). 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 He initiated DA-R-EPOCH April 09-2019 and is now admitted for cycle 2 with escalation o f dosages per protocol. He received Rituximab in the outpatient setting April 27 and the cytotoxic portion of madhu tment beginning yesterday. The patient did not experience ANC less than 500 or platelets le ss than 25,000 on his weekly counts following cycle 1. In fact, he maintained normal counts throughout cycle 1 of chemotherapy. Therefore, etoposide, doxorubicin, and cyclophosphamid e will each be increased by 20% for cycle 2. Encounter for chemotherapy The patient initiated treatment April 30 with dose adjusted R-EPOCH as follows: Rituximab 375 mg/m IV day 0 (Given April 27 on day -2 cycle 2) Etoposide 60 mg/m IV continuous infusion days 1 4 Vincristine 0.4 mg/m IV continuous infusion days 1 4 Doxorubicin 12 mg/m IV continuous infusion days 1 4 Cyclophosphamide 900 mg/m IV day 5 Prednisone 60mg/m2 (120mg per Dr. Jeff) PO days 1-5 On a 21 day cycle The patient will receive GCSF following treatment. Today is cycle 2 day 5. Cyclophosphamide today. Patient may discharge home after complet ion. Anemia Hemoglobin 11.6 with hematocrit 35.0. No intervention required. Should the patient requir e blood transfusion to keep hemoglobin greater than 8.0, he does not require irradiated bloo d products. Infectious prophylaxis Acyclovir 800mg PO BID for viral prophylaxis No need for routine bactrim DS for PJP prophylaxis Nausea PRN antiemetics. The patient may be discharged following chemotherapy completion today. He is scheduled for Neulasta in the oncology clinic tomorrow. Code Status: Full Code KOLE Do 2020 4:40 AM [facility] Portions of this chart may have been created with voice recognition software. Occasional wr mak-word or "sound-alike" substitutions may have occurred, even after review, due to the inh erent limitations of voice recognition software. Please read the chart carefully and recogni ze, using context, where these substitutions have occurred. Personal communication is reques akbar for any clarifications. Oralia South MD - 05/03/2020 12:[address] [facility] Service: Hematology and Oncology Progress Note Hospital Day: LOS: 4 days Patient Summary: Mr.Dylan Bernard Villarreal a 29 year oldmalewith no significant past medical history other than tobacco use (1/2-1 pack/day [phone]) who began experiencing cough, pleuritic ch est pain, dyspnea on exertion and URI symptoms beginning October 2019. He was initially t reated with antibiotics by his PCP with minimal improvement of symptoms. CT scan of the ch est onFebruary revealed a large cavitary lesion with mediastinal and axillary lympha denopathy .The patient also experienced an unintentional 30 pound weight loss since 2019. The patient was referred to Dr. [...] of a right deep cervical lymph nod e.Pathology revealed large atypical B lymphocytes was consistent withdiffuse large B-c ell lymphoma,positive for CD20, CD23,BCL 6, CD79a, and PAX 5. Ki-67 was 60%. The mor phologic and immunohistochemical findings were in favor of a primary mediastinal large B-marco l lymphoma. There was no evidence of MYC or MYC/IgH rearrangement (ie no double or triple hit lymphoma). The patient was referred to oncology and [...] IV (given as d ay 0 of DA-R-EPOCH) and received the chemotherapy portion of DA-R-EPOCH between April 09-2019 as follows: Rituximab 375 mg/m IV day -3 cycle 1; Etoposide 50 mg/m IV continuous infusion days 1 4; Vincristine 0.4 mg/m IV continuous infusion days 1 4; Doxorubicin 10 mg/m IV continuous infusion days 1 4; Cyclophosphamide 750 mg/m IV day 5; Prednison e 60mg/m2 (120mg per Dr. eJff) PO days 1-5 on a 21 day cycle. He is currently admitted to receive cycle 2 of DA-R-EPOCH with dose adjustment by 20% for e toposide, doxorubicin and cyclophosphamide. SUBJECTIVE Events Overnight: Since yesterday, the patient says that overall he feels well. He still has some clear liquid discharge from his nose. Other than that, his cough is better. This morning, he had mild nausea, but did not report any vomiting. After receiving antiemetic, i t improved. The patient's appetite has been appropriate. He does not report any new diffic ulty swallowing food or sore throat. He does not report any new shortness of breath or ches t pain. He does not report any new headache, dizziness, numbness, or seizure. His appetit e overall is appropriate. He has not lost any intentional weight. Overall, the patient has not reported any specific new symptoms at this time. OBJECTIVE Scheduled Medications acyclovir 800 mg Oral BID DOXOrubicin with etoposide and vinCRIStine infusion 12 mg/m2/day (Treatment Plan Recor ded) Intravenous Q24H fosaprepitant (EMEND) IVPB 150 mg 150 mg Intravenous Once palonosetron with dexamethasone IVPB 0.25 mg Intravenous Once pantoprazole 40 mg Oral QAM AC predniSONE 120 mg Oral Daily Continuous Infusions sodium chloride 0.9% 100 mL/hr at 05/03/20 0405 PRN Medications acetaminophen, xsendjyqrlPMGRD-kqpjcg-mfjkbnyfz mouthwash (ADS admixture), benzonatate, doc usate sodium, LORazepam, ondansetron, ondansetron, prochlorperazine, senna Physical Exam Vital Signs: BP 117/61 | Pulse 66 | Temp 36.6 C (97.9 F) (Oral) | Resp 16 | Ht 1.80 3 m (5' 11") | Wt 93.2 kg (205 lb 7.5 oz) | SpO2 97% | BMI 28.66 kg/m General: Alert and oriented. In no acute distress. Affect appropriate. Skin: Warm, dry and intact without rashes or ulcers. HEENT: Conjunctivae are clear. Sclera anicteric. Oral mucosa is moist and pink without lesi ons or evidence of thrush. No folliculitis or lesions along scalp. Lungs: Respiratory effort relaxed. No rales, rhonchi [...] fully engaged. Lab Data Recent Labs Lab 05/03/2040405/02/2023005/01/20 0505 04/30/20 0330 04/27/20 0832 WBC 9.95 20.35* 22.16* 12.57* 13.97* RBC 3.78* 3.91* 3.84* 3.58* 3.71* HGB 10.8* 11.2* 10.7* 10.2* 10.7* HCT 34.3* 34.9* 33.7* 32.3* 32.1* MCV 90.7 89.3 87.8 90.2 86.5 MCH 28.6 28.6 27.9 28.5 28.8 MCHC 31.5* 32.1 31.8* 31.6* 33.3 PLT 313 374 309 250 216 MPV 9.4 9.3 10.0 9.5 7.1 Recent Labs Lab 05/03/2040405/02/2023005/01/20 0505 04/30/20 0330 04/27/20 0832 NA 141 137 139 140 140 K 3.9 3.8 4.1 4.1 4.5 CL 107 105 108 106 105 CO2 29 26 26 27 27 ANIONGAP 9 10 9 11 13 BUN 20 17 17 23 21* ALKPHOS -- -- -- 77 95 ALT -- -- -- 49 56* AST -- -- -- 19 23 EGFR >60 >60 >60 >60 >60 PHOS -- -- -- 5.4* -- MG -- -- -- 1.9 -- Medical Imaging No results found for this or any previous visit (from the past 360 hour(s)). 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 He initiated DA-R-EPOCH April 09-2019 and is now admitted for cycle 2 with escalation o f dosages per protocol. He received Rituximab in the outpatient setting April 27 and the cytotoxic portion of madhu tment beginning yesterday. The patient did not experience ANC less than 500 or platelets le ss than 25,000 on his weekly counts following cycle 1. In fact, he maintained normal counts throughout cycle 1 of chemotherapy. Therefore, etoposide, doxorubicin, and cyclophosphamid e will each be increased by 20% for cycle 2. Encounter for chemotherapy The patient initiated treatment April 30 with dose adjusted R-EPOCH as follows: Rituximab 375 mg/m IV day 0 (Given April 27 on day -2 cycle 2) Etoposide 60 mg/m IV continuous infusion days 1 4 Vincristine 0.4 mg/m IV continuous infusion days 1 4 Doxorubicin 12 mg/m IV continuous infusion days 1 4 Cyclophosphamide 900 mg/m IV day 5 Prednisone 60mg/m2 (120mg per Dr. Jeff) PO days 1-5 On a 21 day cycle The patient will receive GCSF following treatment. The patient is not tolerating the treatment well. Today is day #3 of cycle #2. Overall, t he patient does not report any specific new side effects other than mild nausea. We will co ntinue with supportive care. Leukocytosis. The patient's leukocytosis has improved. His total white cell count today is 9950, which i s within normal range. Anemia. The patient continues to have mild anemia. His hemoglobin is 10.8 g/dL. It is ov erall stable. This is most likely secondary to his chemotherapy. At this time, we will mon itor it closely. It is above 10 g/dL. The patient's platelet count is within normal range. Infectious prophylaxis Acyclovir 800mg PO BID for viral prophylaxis No need for routine bactrim DS for PJP prophylaxis Nausea The patient still off and on continues to feel nauseous. We will continue with antiemetics . He did not have any vomiting. Code Status: Full Code Oralia Fenton MD 05/03/2020 12:23 PM PDT [facility] Portions of this chart may have been created with voice recognition software. Occasional wr mak-word or "sound-alike" substitutions may have occurred, even after review, due to the inh erent limitations of voice recognition software. Please read the chart carefully and recogni ze, using context, where these substitutions have occurred. Personal communication is reques akbar for any clarifications. lan Davis U - 2019 9:13 AM PDT Service: Hospitalist Progress Note Pt: Asad oLngo AGE/SEX: 29 y.o. male ROOM: [facility]- : 1990 PCP: Myrna Mejia MD ADMIT DATE: 04/29/2020 TODAY'S DATE: 05/03/2020 Hospital Day/Hospital Course: LOS: [address] Finch 29 y.o.malewithcurrent smoker tobacco chew other than thatno significant past med ical history recent diagnosed March 2020 withdiffuse large B-cell lymphoma,positive for C D20, CD23,BCL 6, CD79a, and PAX 5. Ki-67 was 60%. ; in favor of a primary mediastinal large B-cell lymphoma.Requested by oncology teamforadmit for chemo Cycle#2nd 1-5 EPOCH.Scheduled for day 6 Neulasta.He was started Rituxan on 06 april 2 020 He denies any recent cough congestion GI symptoms or skin rash oncology he is no longer nee ded allopurinol at that time He was admitted [place] [facility] [place] 08 April to 13 April for the first cycle of chemo. He is being admitted for 2nd cycle of chemo for diffuse cell large B cell lymphoma. SUBJECTIVE: Patient seen and examine. He is sitting comfortably. Not in any kind of distress. Talkin g to me appropriately. Declined to have any chest pain, nausea or vomiting, dizziness or li ghtheadedness Scheduled Medications: acyclovir 800 mg Oral BID DOXOrubicin with etoposide and vinCRIStine infusion 12 mg/m2/day (Treatment Plan Recor ded) Intravenous Q24H DOXOrubicin with etoposide and vinCRIStine infusion 12 mg/m2/day (Treatment Plan Recor ded) Intravenous Q24H fosaprepitant (EMEND) IVPB 150 mg 150 mg Intravenous Once palonosetron with dexamethasone IVPB 0.25 mg Intravenous Once pantoprazole 40 mg Oral QAM AC predniSONE 120 mg Oral Daily Continuous Infusions sodium chloride 0.9% 100 mL/hr at 05/03/20 0405 PRN Medications acetaminophen, iojaphggxfZRDAZ-swenoe-piqfkoswe mouthwash (ADS admixture), benzonatate, doc usate sodium, LORazepam, ondansetron, ondansetron, prochlorperazine, senna Allergy: No Known Allergies OBJECTIVE: Vitals: Patient Vitals for the past 24 hrs: BP Temp Temp src Pulse Resp SpO2 Weight 05/03/20 0730 117/61 36.6 C (97.9 F) Oral 66 16 97 % 93.2 kg (205 lb 7.5 oz) 05/03/20 0349 98/51 36.4 C (97.5 F) Oral 58 16 98 % 05/02/20 2340 101/55 36.4 C (97.6 F) Oral 71 15 96 % 05/02/20 1929 119/60 36.6 C (97.9 F) Oral 65 17 99 % 05/02/20 1527 122/60 36.7 C (98.1 F) Oral 84 16 98 % 05/02/20 1155 121/77 36.7 C (98 F) Oral 69 16 100 % I&O Detailed Table: Intake/Output Summary (Last 24 hours) at 05/03/2020 0913 Last data filed at 05/03/2020 0609 Gross per 24 hour Intake 6908 ml Output 3500 ml Net 3408 ml Patient Vitals for the past 96 hrs: Weight 05/03/20 0730 93.2 kg (205 lb 7.5 oz) 05/02/20 0732 93.5 kg (206 lb 2.1 oz) 05/01/20 0817 94.3 kg (207 lb 14.3 oz) 04/30/20 0746 94.5 kg (208 lb 5.4 oz) 04/29/20 203 96.5 kg (212 lb 11.9 oz) Hemodynamics Last 24hrs: Physical Examination: Constitutional: Wake and alert and talking to me HEENT: Neck supple, no JVD, non icteric sclera. Cardiovascular: Normal rate,s1,s2 Pulmonary/Chest: Clear bilateral Abdominal: Soft. NT Extremeties/Musculoskeletal: Normal range of motion.exhibits no tenderness. exhibits no ed michelle. Neurological: Alert and oriented to person, place, and time. Skin: Skin is warm and dry. No rash noted. No erythema. No pallor. Psychiatric: Has a normal mood and affect. Behavior is normal. Judgment normal. Not suicida l LABS: Recent Labs Lab 05/03/20 0405 05/02/20 0231 05/01/20 0505 WBC 9.95 20.35* 22.16* HGB 10.8* 11.2* 10.7* HCT 34.3* 34.9* 33.7* PLT 313 374 309 MONOPCT 9.10 -- -- Recent Labs Lab 05/03/20 0405 05/02/20 0231 05/01/20 0505 04/30/20 0330 04/27/20 0832 NA 141 137 139 140 140 K 3.9 3.8 4.1 4.1 4.5 CL 107 105 108 106 105 CO2 29 26 26 27 27 BUN 20 17 17 23 21* CALCIUM 9.0 9.0 8.7 8.8 9.5 ALKPHOS -- -- -- 77 95 ALT -- -- -- 49 56* AST -- -- -- 19 23 Phosphorus: Lab Results Component Value Date PHOS 5.4 (H) 04/30/2020 Recent Labs Lab 04/30/20 0330 MG 1.9 Diagnostic Imaging: Impressions only: No results found for this or any previous visit (from the past 360 hour(s)). 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 * ASSESSMENT & PLAN 29 years old gentleman with history of diffuse large B-cell lymphoma admitted for second cy christine of chemotherapy. Principal Problem: Diffuse large B-cell lymphoma of lymph nodes of multiple regions He is not having any symptoms. He will be finishing his chemotherapy tomorrow at 5 PM. A dmitted for chemo second cycle. Continue chemo with current treatment cycle. Follow-up wit h labs. Continue IV fluids. On high-dose prednisone. Continue with PPI. CBC and chemistr y reviewed. Active Problems: Tobacco abuse Counseled regarding smoking. Resolved Problems: * No resolved hospital problems. * Disposition: DC plan after chemotherapy probably on Monday Communication thread: marcos morgan Relation: Significant other Patient said he does not want me to call any body yet. Alan Davis MD, FACP 05/03/2020 9:13 AM PDT Portions of this chart may have been copied from previous notes for continuity of care purp ose Portions of this chart may have been created with [employer] voice recognition software. Occasi onal wrong-word or sound-alike substitutions may have occurred due to the inherent bahena itations of voice recognition software. Please read the chart carefully and recognize, using context, where these substitutions have occurred. Oralia South MD - 2019 11:[address] [facility] Service: Hematology and Oncology Progress Note Hospital Day: LOS: 3 days Patient Summary: Mr.Dylan Bernard Villarreal a 29 year oldmalewith no significant past medical history other than tobacco use (1/2-1 pack/day [id number]) who began experiencing cough, pleuritic ch est pain, dyspnea on exertion and URI symptoms beginning October 2019. He was initially t reated with antibiotics by his PCP with minimal improvement of symptoms. CT scan of the ch est onFebruary revealed a large cavitary lesion with mediastinal and axillary lympha denopathy .The patient also experienced an unintentional 30 pound weight loss since 2019. The patient was referred to Dr. [...] of a right deep cervical lymph nod e.Pathology revealed large atypical B lymphocytes was consistent withdiffuse large B-c ell lymphoma,positive for CD20, CD23,BCL 6, CD79a, and PAX 5. Ki-67 was 60%. The mor phologic and immunohistochemical findings were in favor of a primary mediastinal large B-marco l lymphoma. There was no evidence of MYC or MYC/IgH rearrangement (ie no double or triple hit lymphoma). The patient was referred to oncology and [...] IV (given as d ay 0 of DA-R-EPOCH) and received the chemotherapy portion of DA-R-EPOCH between April 09-2019 as follows: Rituximab 375 mg/m IV day -3 cycle 1; Etoposide 50 mg/m IV continuous infusion days 1 4; Vincristine 0.4 mg/m IV continuous infusion days 1 4; Doxorubicin 10 mg/m IV continuous infusion days 1 4; Cyclophosphamide 750 mg/m IV day 5; Prednison e 60mg/m2 (120mg per Dr. Jeff) PO days 1-5 on a 21 day cycle. He is currently admitted to receive cycle 2 of DA-R-EPOCH with dose adjustment by 20% for e toposide, doxorubicin and cyclophosphamide. SUBJECTIVE Events Overnight: DHe admits since in last 24 hours he has not noted any major change. On and off, he has mild congestion, which resulted in occasional cough. Other than that, he d enies any new blood with cough. He denies any new blood in his phlegm. He does not report any new difficulty swallowing food. He denies any new headache, dizziness, numbness or seiz ure. His appetite has not changed. On and off, he has nausea, but no major nausea in last 24 hours. Overall, it is well controlled. OBJECTIVE Scheduled Medications acyclovir 800 mg Oral BID DOXOrubicin with etoposide and vinCRIStine infusion 12 mg/m2/day (Treatment Plan Recor ded) Intravenous Q24H pantoprazole 40 mg Oral QAM AC predniSONE 120 mg Oral Daily Continuous Infusions sodium chloride 0.9% 1,000 mL (05/02/20 0759) PRN Medications acetaminophen, sditwfigvaQZMCN-fpwznb-dztmziebp mouthwash (ADS admixture), benzonatate, doc usate sodium, LORazepam, ondansetron, ondansetron, prochlorperazine, senna Physical Exam Vital Signs: BP 114/56 | Pulse 81 | Temp 36.9 C (98.5 F) (Oral) | Resp 16 | Ht 1.80 3 m (5' 11") | Wt 93.5 kg (206 lb 2.1 oz) | SpO2 97% | BMI 28.75 kg/m General: Alert and oriented. In no acute distress. Affect appropriate. Skin: Warm, dry and intact without rashes or ulcers. HEENT: Conjunctivae are clear. Sclera anicteric. Oral mucosa is moist and pink without lesi ons or evidence of thrush. No folliculitis or lesions along scalp. Lungs: Respiratory effort relaxed. No rales, rhonchi [...] fully engaged. Lab Data Recent Labs Lab 05/02/20 0231 05/01/20 0505 04/30/20 0330 04/27/20 0832 WBC 20.35* 22.16* 12.57* 13.97* RBC 3.91* 3.84* 3.58* 3.71* HGB 11.2* 10.7* 10.2* 10.7* HCT 34.9* 33.7* 32.3* 32.1* MCV 89.3 87.8 90.2 86.5 MCH 28.6 27.9 28.5 28.8 MCHC 32.1 31.8* 31.6* 33.3 PLT 374 309 250 216 MPV 9.3 10.0 9.5 7.1 Recent Labs Lab 05/02/20 02305/01/20 0505 04/30/20 0330 04/27/20 0832 NA 137 139 140 140 K 3.8 4.1 4.1 4.5 CL 105 108 106 105 CO2 26 26 27 27 ANIONGAP 10 9 11 13 BUN 17 17 23 21* ALKPHOS -- -- 77 95 ALT -- -- 49 56* AST -- -- 19 23 EGFR >60 >60 >60 >60 PHOS -- -- 5.4* -- MG -- -- 1.9 -- Medical Imaging No results found for this or any previous visit (from the past 360 hour(s)). 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 He initiated DA-R-EPOCH April 09-2019 and is now admitted for cycle 2 with escalation o f dosages per protocol. He received Rituximab in the outpatient setting April 27 and the cytotoxic portion of madhu tment beginning yesterday. The patient did not experience ANC less than 500 or platelets le ss than 25,000 on his weekly counts following cycle 1. In fact, he maintained normal counts throughout cycle 1 of chemotherapy. Therefore, etoposide, doxorubicin, and cyclophosphamid e will each be increased by 20% for cycle 2. Encounter for chemotherapy The patient initiated treatment April 30 with dose adjusted R-EPOCH as follows: Rituximab 375 mg/m IV day 0 (Given April 27 on day -2 cycle 2) Etoposide 60 mg/m IV continuous infusion days 1 4 Vincristine 0.4 mg/m IV continuous infusion days 1 4 Doxorubicin 12 mg/m IV continuous infusion days 1 4 Cyclophosphamide 900 mg/m IV day 5 Prednisone 60mg/m2 (120mg per Dr. Jeff) PO days 1-5 On a 21 day cycle The patient will receive GCSF following treatment. Today is cycle 2 day 3. Continuous chemotherapy today. The patient overall is tolerating the treatment well, other than occasional cough related t o nasal congestion. He does not report any major new symptoms. Blood counts The patient's blood work performed shows that he has neutrophilia. His total white cell co unt is 20,350. It is most likely reactive. The patient's hemoglobin is 11.2, hematocrit is 34.9. It is within appropriate range. Thi s is most likely secondary to his chemotherapy. At this time, overall, the patient is asym ptomatic. We will monitor. The patient's platelet count is within normal range. The patient's kidney function, liver enzymes are also within appropriate range. Infectious prophylaxis Acyclovir 800mg PO BID for viral prophylaxis No need for routine bactrim DS for PJP prophylaxis Nausea Continue on antiemetics as per protocol. Code Status: Full Code Oralia Fenton MD 05/02/2020 11:06 AM [facility] Hematology & Oncology Portions of this chart may have been created with voice recognition software. Occasional wr mak-word or "sound-alike" substitutions may have occurred, even after review, due to the inh erent limitations of voice recognition software. Please read the chart carefully and recogni ze, using context, where these substitutions have occurred. Personal communication is reques akbar for any clarifications. Alan Mcarthur - 2019 8:56 AM PDT Service: Hospitalist Progress Note Pt: Asad Longo AGE/SEX: 29 y.o. male ROOM: [facility]66[facility]-01 : 1990 PCP: Myrna Mejia MD ADMIT DATE: 04/29/2020 TODAY'S DATE: 05/02/2020 Hospital Day/Hospital Course: LOS: [address] Finch 29 y.o.malewithcurrent smoker tobacco chew other than thatno significant past med ical history recent diagnosed March 2020 withdiffuse large B-cell lymphoma,positive for C D20, CD23,BCL 6, CD79a, and PAX 5. Ki-67 was 60%. ; in favor of a primary mediastinal large B-cell lymphoma.Requested by oncology teamforadmit for chemo Cycle#2nd 1-5 EPOCH.Scheduled for day 6 Neulasta.He was started Rituxan on april 05 020 He denies any recent cough congestion GI symptoms or skin rash oncology he is no longer nee ded allopurinol at that time He was [place] [facility] 13 April for the first cycle of chemo. He is being admitted for 2nd cycle of chemo for diffuse cell large B cell lymphoma. SUBJECTIVE: Patient seen and examine. He sitting comfortably. Not in any kind of distress. No chest pain, SOB, HARTMAN. No cough on recumbency. Had no orthopnea or PND. No Abdominal pain, N/V or fe robert. Still feeling tired and fatigued. No dizziness or lightheadedness. Scheduled Medications: acyclovir 800 mg Oral BID DOXOrubicin with etoposide and vinCRIStine infusion 12 mg/m2/day (Treatment Plan Recor ded) Intravenous Q24H pantoprazole 40 mg Oral QAM AC predniSONE 120 mg Oral Daily Continuous Infusions sodium chloride 0.9% 1,000 mL (05/02/20 8439) PRN Medications acetaminophen, idvcdofpbqTPLMH-lvhaer-jhzlxtftw mouthwash (ADS admixture), benzonatate, doc usate sodium, LORazepam, ondansetron, ondansetron, prochlorperazine, senna Allergy: No Known Allergies OBJECTIVE: Vitals: Patient Vitals for the past 24 hrs: BP Temp Temp src Pulse Resp SpO2 Weight 05/02/20 0732 114/56 36.9 C (98.5 F) Oral 81 16 97 % 93.5 kg (206 lb 2.1 oz) 05/02/20 0210 133/79 36.6 C (97.9 F) Oral 84 17 96 % 05/01/20 1933 105/54 36.9 C (98.5 F) Oral 79 15 98 % 05/01/20 1500 103/51 37 C (98.6 F) Oral 73 16 97 % 05/01/20 1204 118/66 36.9 C (98.5 F) Oral 67 16 99 % I&O Detailed Table: Intake/Output Summary (Last 24 hours) at 05/02/2020 0856 Last data filed at 05/02/2020 0742 Gross per 24 hour Intake 955 ml Output 2500 ml Net -1545 ml Patient Vitals for the past 96 hrs: Weight 05/02/20 0732 93.5 kg (206 lb 2.1 oz) 05/01/20 0817 94.3 kg (207 lb 14.3 oz) 04/30/20 0746 94.5 kg (208 lb 5.4 oz) 04/29/20 2036 96.5 kg (212 lb 11.9 oz) Hemodynamics Last 24hrs: Physical Examination: Constitutional: Alert and oriented to person, place, and time. HEENT: Neck supple, no JVD, non icteric sclera. Cardiovascular: Normal rate,s1,s2 Pulmonary/Chest: Effort normal and breath sounds normal. No stridor. No respiratory distres s. no wheezes. no rales. exhibits no tenderness. Abdominal: Soft. . exhibits no distension and no mass. There is no tenderness. There is no rebound and no guarding. Extremeties/Musculoskeletal: Normal range of motion.exhibits no tenderness. exhibits no ed michelle. Neurological: Alert and oriented to person, place, and time. Skin: Skin is warm and dry. No rash noted. No erythema. No pallor. Psychiatric: Has a normal mood and affect. Behavior is normal. Judgment normal. Not suicida l LABS: Recent Labs Lab 05/02/20 0231 05/01/20 0505 04/30/20 0330 WBC 20.35* 22.16* 12.57* HGB 11.2* 10.7* 10.2* HCT 34.9* 33.7* 32.3* PLT 374 309 250 Recent Labs Lab 05/02/20 0231 05/01/20 0505 04/30/20 0330 04/27/20 0832 NA 137 139 140 140 K 3.8 4.1 4.1 4.5 CL 105 108 106 105 CO2 26 26 27 27 BUN 17 17 23 21* CALCIUM 9.0 8.7 8.8 9.5 ALKPHOS -- -- 77 95 ALT -- -- 49 56* AST -- -- 19 23 Phosphorus: Lab Results Component Value Date PHOS 5.4 (H) 04/30/2020 Recent Labs Lab 04/30/20 0330 MG 1.9 Diagnostic Imaging: Impressions only: No results found for this or any previous visit (from the past 360 hour(s)). 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 * ASSESSMENT & PLAN 29 years old gentleman with history of diffuse large B-cell lymphoma admitted for second cy christine of chemotherapy. Principal Problem: Diffuse large B-cell lymphoma of lymph nodes of multiple regions Admitted for chemo second cycle. Continue chemo with current treatment cycle. Follow-up with labs. Continue IV fluids. On high-dose prednisone. Continue with PPI. Active Problems: Tobacco abuse Counseled regarding smoking. Resolved Problems: * No resolved hospital problems. * Disposition: DC plan after chemotherapy probably on Monday Communication thread: marcos morgan Relation: Significant other Patient said he does not want me to call any body yet. Alan Davis MD, FACP 05/02/2020 8:56 AM PDT Portions of this chart may have been copied from previous notes for continuity of care purp ose Portions of this chart may have been created with [employer] voice recognition software. Occasi onal wrong-word or sound-alike substitutions may have occurred due to the inherent bahena itations of voice recognition software. Please read the chart carefully and recognize, using context, where these substitutions have occurred. Jeremie Goldsmith MD - 05/01/20 20 1:[address] [facility] Adult Hospitalist Progress Note Hospital Day: 2 Asad Longo Patient Summary: Mr.Dylan Bernard Longo29 y.o.malewithcurrent smoker tobacco chew other than patrick tno significant past medical history recent diagnosed March 2020 withdiffuse large B-cell lymphoma,positive for CD20, CD23,BCL 6, CD79a, and PAX 5. Ki-67 was 60%. 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 He is being admitted for 2nd cycle of chemo for diffuse cell large B cell lymphoma. . SUBJECTIVE Feels great. Has no concerns, side effects No fevers, chills OBJECTIVE Vital Signs: BP 118/66 | Pulse 67 | Temp 36.9 C (98.5 F) (Oral) | Resp 16 | Ht 1.803 m (5' 11") | Wt 94.3 kg (207 lb 14.3 oz) | SpO2 99% | BMI 29.00 kg/m Physical Exam Physical Exam: Constitutional: Alert and oriented to person, place, and time. Sitting in chair Appears wel l-developed and well-nourished. HEENT: Neck supple, no JVD, non icteric sclera. Cardiovascular NORMAL rate, regular rhythm, normal heart sounds with S1 and S2, Exam re veals no gallop and no friction rub. No murmur heard. No S3, No S4 MEDIPORT Pulmonary/Chest: Effort normal and breath sounds normal. No stridor. No respiratory distres s. no wheezes. no rales. exhibits no tenderness. Abdominal: Soft. Bowel sounds are normal. exhibits no distension and no palpable mass. Ther e is no tenderness. There is no rebound and no guarding. Extremeties/Musculoskeletal: Normal range of motion.exhibits no tenderness. exhibits no ed michelle. Neurological: Alert and oriented to person, place, and time. Skin: Skin is warm and dry. Psychiatric: Has a normal mood and affect. MEDS Scheduled Meds: acyclovir 800 mg Oral BID DOXOrubicin with etoposide and vinCRIStine infusion 12 mg/m2/day Intravenous Q24H pantoprazole 40 mg Oral QAM AC predniSONE 120 mg Oral Daily Continuous Infusions: sodium chloride 0.9% 1,000 mL (05/01/20 1154) PRN Meds:.acetaminophen, cptuhscpgeZEVEL-bqrwhv-robfcrxrp mouthwash (ADS admixture), benzon atate, docusate sodium, LORazepam, ondansetron, ondansetron, prochlorperazine, senna DATA No results for input(s): INR in the last 168 hours. Recent Labs Lab 05/01/20 0505 04/30/20 0330 04/27/20 0832 WBC 22.16* 12.57* 13.97* HGB 10.7* 10.2* 10.7* HCT 33.7* 32.3* 32.1* PLT 309 250 216 NA 139 140 140 K 4.1 4.1 4.5 CL 108 106 105 CO2 26 27 27 BUN 17 23 21* EGFR >60 >60 >60 CALCIUM 8.7 8.8 9.5 ANIONGAP 9 11 13 PHOS -- 5.4* -- MG -- 1.9 -- AST -- 19 23 ALT -- 49 56* No results for input(s): TROPONINT, CKMB in the last 168 hours. Invalid input(s): CKTOTAL, TROPONINI, CKMBINDEX, PCOTNI No results for input(s): CLARITYU, LEUKOCYTESUR, UROBILINOGEN, PHUR, BLOODU, KETONES, BILIR UBINUR, GLUCOSEU, RBCU, BACTERIA, COMU in the last 168 hours. Invalid input(s): UCOL, SPECGRAV, NITRITE, UPRO No results found. PROBLEM LIST Principal Problem: Diffuse large B-cell lymphoma of lymph nodes of multiple regions Active Problems: Tobacco abuse IMPRESSION/PLAN: Diffuse large B-cell lymphoma,positive for CD20, CD23,BCL 6, CD79a, and PAX 5. Ki-67 was 60%. 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 admit for chemo 2nd cycle Per hem/onc recommendations. Monitor labs daily On maintenance iv fluids. On high dose prednisone also added PPI for prophylaxis. protonix 40 added chronic smoker Quit smoking now. counseled on cessation DVT pro Lovenox 40 Stopped. He is ambulatory Jeremie Finch MD 1:16 PM PDT 05/01/2020 oshonnaMayte sadler, BIOPSYCHOLOGIST - 0 05/01/2020 5:[address] [facility] Service: Hematology and Oncology Progress Note Hospital Day: LOS: 2 days Patient Summary: Mr.Dylan Bernard Villarreal a 29 year oldmalewith no significant past medical history other than tobacco use (1/2-1 pack/day [id number]) who began experiencing cough, pleuritic ch est pain, dyspnea on exertion and URI symptoms beginning October 2019. He was initially t reated with antibiotics by his PCP with minimal improvement of symptoms. CT scan of the ch est onFebruary revealed a large cavitary lesion with mediastinal and axillary lympha denopathy .The patient also experienced an unintentional 30 pound weight loss since 2019. The patient was referred to Dr. [...] of a right deep cervical lymph nod e.Pathology revealed large atypical B lymphocytes was consistent withdiffuse large B-c ell lymphoma,positive for CD20, CD23,BCL 6, CD79a, and PAX 5. Ki-67 was 60%. The mor phologic and immunohistochemical findings were in favor of a primary mediastinal large B-marco l lymphoma. There was no evidence of MYC or MYC/IgH rearrangement (ie no double or triple hit lymphoma). The patient was referred to oncology and [...] IV (given as d ay 0 of DA-R-EPOCH) and received the chemotherapy portion of DA-R-EPOCH between April 09-2019 as follows: Rituximab 375 mg/m IV day -3 cycle 1; Etoposide 50 mg/m IV continuous infusion days 1 4; Vincristine 0.4 mg/m IV continuous infusion days 1 4; Doxorubicin 10 mg/m IV continuous infusion days 1 4; Cyclophosphamide 750 mg/m IV day 5; Prednison e 60mg/m2 (120mg per Dr. Jeff) PO days 1-5 on a 21 day cycle. He is currently admitted to receive cycle 2 of DA-R-EPOCH with dose adjustment by 20% for e toposide, doxorubicin and cyclophosphamide. SUBJECTIVE Events Overnight: Asad reports intermittent nausea. Denies emesis or abdominal pain. Abelino wel movement this morning. Denies fever, chills, headache or dizziness. No shortness of br eath, cough or chest pain. Reports his appetite is good. OBJECTIVE Scheduled Medications acyclovir 800 mg Oral BID DOXOrubicin with etoposide and vinCRIStine infusion 12 mg/m2/day (Treatment Plan Recor ded) Intravenous Q24H pantoprazole 40 mg Oral QAM AC predniSONE 120 mg Oral Daily Continuous Infusions sodium chloride 0.9% 100 mL/hr at 05/01/20 0441 PRN Medications acetaminophen, fpcohinisyHSALV-gojoph-dxyhkbtil mouthwash (ADS admixture), benzonatate, doc usate sodium, ondansetron, ondansetron, senna Physical Exam Vital Signs: BP 110/56 | Pulse 70 | Temp 36.4 C (97.5 F) (Oral) | Resp 16 | Ht 1.80 3 m (5' 11") | Wt 94.5 kg (208 lb 5.4 oz) | SpO2 96% | BMI 29.06 kg/m General: Alert and oriented. In no acute distress. Affect appropriate. Skin: Warm, dry and intact without rashes or ulcers. HEENT: Conjunctivae are clear. Sclera anicteric. Oral mucosa is moist and pink without lesi ons or evidence of thrush. No folliculitis or lesions along scalp. Lungs: Respiratory effort relaxed. No rales, rhonchi [...] fully engaged. Lab Data Recent Labs Lab 04/30/20 0330 04/27/20 0832 WBC 12.57* 13.97* RBC 3.58* 3.71* HGB 10.2* 10.7* HCT 32.3* 32.1* MCV 90.2 86.5 MCH 28.5 28.8 MCHC 31.6* 33.3 PLT 250 216 MPV 9.5 7.1 Recent Labs Lab 04/30/20 0330 04/27/20 0832 NA 140 140 K 4.1 4.5 CL 106 105 CO2 27 27 ANIONGAP 11 13 BUN 23 21* ALKPHOS 77 95 ALT 49 56* AST 19 23 EGFR >60 >60 PHOS 5.4* -- MG 1.9 -- Medical Imaging No results found for this or any previous visit (from the past 360 hour(s)). 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 He initiated DA-R-EPOCH April 09-2019 and is now admitted for cycle 2 with escalation o f dosages per protocol. He received Rituximab in the outpatient setting April 27 and the cytotoxic portion of madhu tment beginning yesterday. The patient did not experience ANC less than 500 or platelets le ss than 25,000 on his weekly counts following cycle 1. In fact, he maintained normal counts throughout cycle 1 of chemotherapy. Therefore, etoposide, doxorubicin, and cyclophosphamid e will each be increased by 20% for cycle 2. Encounter for chemotherapy The patient initiated treatment April 30 with dose adjusted R-EPOCH as follows: Rituximab 375 mg/m IV day 0 (Given April 27 on day -2 cycle 2) Etoposide 60 mg/m IV continuous infusion days 1 4 Vincristine 0.4 mg/m IV continuous infusion days 1 4 Doxorubicin 12 mg/m IV continuous infusion days 1 4 Cyclophosphamide 900 mg/m IV day 5 Prednisone 60mg/m2 (120mg per Dr. Jeff) PO days 1-5 On a 21 day cycle The patient will receive GCSF following treatment. Today is cycle 2 day 2. Continuous chemotherapy today. Anemia Hemoglobin with hematocrit 32.3. No intervention required. Should the patient require bl ood transfusion to keep hemoglobin greater than 8.0, he does not require irradiated blood pr oducts. Infectious prophylaxis Acyclovir 800mg PO BID for viral prophylaxis No need for routine bactrim DS for PJP prophylaxis Nausea PRN antiemetics. Dr. Fenton is covering oncology services this weekend. Code Status: Full Code KOLE Do 05/01/2020 5:21 AM [facility] Hematology & Oncology Portions of this chart may have been created with voice recognition software. Occasional wr mak-word or "sound-alike" substitutions may have occurred, even after review, due to the inh erent limitations of voice recognition software. Please read the chart carefully and recogni ze, using context, where these substitutions have occurred. Personal communication is reques akbar for any clarifications. Jeremie Goldsmith MD - 0 04/30/2020 10:[address] [facility] Adult Hospitalist Progress Note Hospital Day: 1 Asad Longo Patient Summary: Mr.Dylan Bernard Longo29 y.o.malewithcurrent smoker tobacco chew other than patrick tno significant past medical history recent diagnosed March 2020 withdiffuse large B-cell lymphoma,positive for CD20, CD23,BCL 6, CD79a, and PAX 5. Ki-67 was 60%. 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 He is being admitted for 2nd cycle of chemo for diffuse cell large B cell lymphoma. . SUBJECTIVE Feels fine. Denies any sob, no n/v/d No fevers, chills OBJECTIVE Vital Signs: BP 128/90 | Pulse 83 | Temp 36.2 C (97.2 F) (Temporal) | Resp 20 | Ht 1.803 m (5' 1 1") | Wt 94.5 kg (208 lb 5.4 oz) | SpO2 98% | BMI 29.06 kg/m Physical Exam Physical Exam: Constitutional: Alert and oriented to person, place, and time. Appears well-developed and w ell-nourished. HEENT: Neck supple, no JVD, non icteric sclera. Cardiovascular: TACHY rate, regular rhythm, normal heart sounds with S1 and S2, Exam re veals no gallop and no friction rub. No murmur heard. No S3, No S4 Pulmonary/Chest: Effort normal and breath sounds normal. No stridor. No respiratory distres s. no wheezes. no rales. exhibits no tenderness. Abdominal: Soft. Bowel sounds are normal. exhibits no distension and no palpable mass. Ther e is no tenderness. There is no rebound and no guarding. Extremeties/Musculoskeletal: Normal range of motion.exhibits no tenderness. exhibits no ed michelle. Neurological: Alert and oriented to person, place, and time. Skin: Skin is warm and dry. Psychiatric: Has a normal mood and affect. MEDS Scheduled Meds: acyclovir 800 mg Oral BID DOXOrubicin with etoposide and vinCRIStine infusion 12 mg/m2/day (Treatment Plan Recor ded) Intravenous Q24H enoxaparin 40 mg Subcutaneous Q24H fosaprepitant (EMEND) IVPB 150 mg 150 mg Intravenous Once nicotine 1 patch Transdermal Daily palonosetron with dexamethasone IVPB 0.25 mg Intravenous Once [START ON 05/01/2020] pantoprazole 40 mg Oral QAM AC predniSONE 120 mg Oral Daily Continuous Infusions: sodium chloride 0.9% 100 mL/hr at 04/30/20 0823 PRN Meds:.acetaminophen, rexalvpwrhSAKRH-xkipiz-fjqljsbtz mouthwash (ADS admixture), benzon atate, docusate sodium, ondansetron, ondansetron, senna DATA No results for input(s): INR in the last 168 hours. Recent Labs Lab 04/30/20 0330 04/27/20 0832 WBC 12.57* 13.97* HGB 10.2* 10.7* HCT 32.3* 32.1* PLT 250 216 NA 140 140 K 4.1 4.5 CL 106 105 CO2 27 27 BUN 23 21* EGFR >60 >60 CALCIUM 8.8 9.5 ANIONGAP 11 13 PHOS 5.4* -- MG 1.9 -- AST 19 23 ALT 49 56* No results for input(s): TROPONINT, CKMB in the last 168 hours. Invalid input(s): CKTOTAL, TROPONINI, CKMBINDEX, PCOTNI No results for input(s): CLARITYU, LEUKOCYTESUR, UROBILINOGEN, PHUR, BLOODU, KETONES, BILIR UBINUR, GLUCOSEU, RBCU, BACTERIA, COMU in the last 168 hours. Invalid input(s): UCOL, SPECGRAV, NITRITE, UPRO No results found. PROBLEM LIST Principal Problem: Diffuse large B-cell lymphoma of lymph nodes of multiple regions Active Problems: Tobacco abuse IMPRESSION/PLAN: Diffuse large B-cell lymphoma,positive for CD20, CD23,BCL 6, CD79a, and PAX 5. Ki-67 was 60%. 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 admit for chemo 2nd cycle Per hem/onc recommendations. Monitor labs daily On maintenance iv fluids On high dose prednisone also Would add PPI for prophylaxis. protonix 40 added chronic smoker Nicotine patch. counseled on cessation DVT pro Lovenox 40 Jeremie Finch MD 10:49 AM PDT 04/30/2020 isa Esparza A RNP - 04/30/2020 8:[address] [facility] Service: Hematology and Oncology Progress Note Hospital Day: LOS: 1 day Patient Summary: Mr.Dylan Bernard Villarreal a 29 year oldmalewith no significant past medical history other than tobacco use (1/2-1 pack/day [id number]) who began experiencing cough, pleuritic ch est pain, dyspnea on exertion and URI symptoms beginning October 2019. He was initially t reated with antibiotics by his PCP with minimal improvement of symptoms. CT scan of the ch est onFebruary revealed a large cavitary lesion with mediastinal and axillary lympha denopathy .The patient also experienced an unintentional 30 pound weight loss since 2019. The patient was referred to Dr. [...] of a right deep cervical lymph nod e.Pathology revealed large atypical B lymphocytes was consistent withdiffuse large B-c ell lymphoma,positive for CD20, CD23,BCL 6, CD79a, and PAX 5. Ki-67 was 60%. The mor phologic and immunohistochemical findings were in favor of a primary mediastinal large B-marco l lymphoma. There was no evidence of MYC or MYC/IgH rearrangement (ie no double or triple hit lymphoma). The patient was referred to oncology and [...] IV (given as d ay 0 of DA-R-EPOCH) and received the chemotherapy portion of DA-R-EPOCH between April 09-2019 as follows: Rituximab 375 mg/m IV day -3 cycle 1; Etoposide 50 mg/m IV continuous infusion days 1 4; Vincristine 0.4 mg/m IV continuous infusion days 1 4; Doxorubicin 10 mg/m IV continuous infusion days 1 4; Cyclophosphamide 750 mg/m IV day 5; Prednison e 60mg/m2 (120mg per Dr. Jeff) PO days 1-5 on a 21 day cycle. He is currently admitted to receive cycle 2 of DA-R-EPOCH with dose adjustment by 20% for e toposide, doxorubicin and cyclophosphamide. SUBJECTIVE Events Overnight: Asad is well. He states he had minimal complications between cycle 1 a nd cycle 2. He did have some minor mouth tenderness that resolved with miracle mouthwash. He also reports his scalp is tender and his hair is falling out. His cough has resolved. H is appetite is good. OBJECTIVE Scheduled Medications acyclovir 800 mg Oral BID enoxaparin 40 mg Subcutaneous Q24H nicotine 1 patch Transdermal Daily Continuous Infusions sodium chloride 0.9% 100 mL/hr at 04/29/206 PRN Medications acetaminophen, benzonatate, docusate sodium, ondansetron, ondansetron, senna Physical Exam Vital Signs: BP 128/90 | Pulse 83 | Temp 36.2 C (97.2 F) (Temporal) | Resp 20 | Ht 1.803 m (5' 11") | Wt 94.5 kg (208 lb 5.4 oz) | SpO2 98% | BMI 29.06 kg/m General: Alert and oriented. In no acute distress. Affect appropriate. Skin: Warm, dry and intact without rashes or ulcers. HEENT: Conjunctivae are clear. Sclera anicteric. Oral mucosa is moist and pink without lesi ons or evidence of thrush. No folliculitis or lesions along scalp. Lungs: Respiratory effort relaxed. No rales, rhonchi [...] fully engaged. Lab Data Recent Labs Lab 04/30/20 0330 04/27/20 0832 WBC 12.57* 13.97* RBC 3.58* 3.71* HGB 10.2* 10.7* HCT 32.3* 32.1* MCV 90.2 86.5 MCH 28.5 28.8 MCHC 31.6* 33.3 PLT 250 216 MPV 9.5 7.1 Recent Labs Lab 04/30/20 0330 04/27/20 0832 NA 140 140 K 4.1 4.5 CL 106 105 CO2 27 27 ANIONGAP 11 13 BUN 23 21* ALKPHOS 77 95 ALT 49 56* AST 19 23 EGFR >60 >60 PHOS 5.4* -- MG 1.9 -- Medical Imaging No results found for this or any previous visit (from the past 360 hour(s)). 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 He initiated DA-R-EPOCH April 09-2019 and is now admitted for cycle 2 with escalation o f dosages per protocol. He received Rituximab in the outpatient setting April 27 and the cytotoxic portion of kindra atment beginning today. The patient did not experience ANC less than 500 or platelets less than 25,000 on his weekly counts following cycle 1. In fact, he maintained normal counts th roughout cycle 1 of chemotherapy. Therefore, etoposide, doxorubicin, and cyclophosphamide w ill each be increased by 20% for cycle 2. Encounter for chemotherapy The patient initiated treatment April 30 with dose adjusted R-EPOCH as follows: Rituximab 375 mg/m IV day 0 (Given April 27 on day -2 cycle 2) Etoposide 60 mg/m IV continuous infusion days 1 4 Vincristine 0.4 mg/m IV continuous infusion days 1 4 Doxorubicin 12 mg/m IV continuous infusion days 1 4 Cyclophosphamide 900 mg/m IV day 5 Prednisone 60mg/m2 (120mg per Dr. Jeff) PO days 1-5 On a 21 day cycle The patient will receive GCSF following treatment. Today is cycle 2 day 1. Anemia Hemoglobin 10.2 with hematocrit 32.3. No intervention required. Should the patient requir e blood transfusion to keep hemoglobin greater than 8.0, he does not require irradiated bloo d products. Infectious prophylaxis Acyclovir 800mg PO BID for viral prophylaxis No need for routine bactrim DS 1 for PJP prophylaxis Code Status: Full Code KOLE Goetz 04/30/2020 8:06 AM [facility] Hematology & Oncology Portions of this chart may have been created with voice recognition software. Occasional wr mak-word or "sound-alike" substitutions may have occurred, even after review, due to the inh erent limitations of voice recognition software. Please read the chart carefully and recogni ze, using context, where these substitutions have occurred. Personal communication is reques akbar for any clarifications. Kaitlin Wilson RN - 04/30/2020 6:15 AM PDTNo acute changes sine admission assessment. Vital signs stable . Denies pain/discomfort. IVF infusing. End of shift review and chart check complete Kaitlin Solo RN -- Problem: Anemia (Chemotherapy Effects) Goal: Anemia Symptom Improvement Outcome: Ongoing, progressing Intervention: Monitor and Manage Anemia Flowsheets (Taken 04/29/20202149) Oral Nutrition Promotion: rest periods promoted Fatigue Management: frequent rest breaks encouraged paced activity encouraged Note: Hemoglobin and hematocrit stable at 10.2 and 32.3. No blood transfusion indicated. Mo nitored for signs of bleeding. Problem: Nausea and Vomiting (Chemotherapy Effects) Goal: Fluid and Electrolyte Balance Outcome: Ongoing, progressing Intervention: Prevent and Manage Nausea and Vomiting Flowsheets (Taken 04/29/20202149) Environmental Support: calm environment promoted personal routine supported rest periods encouraged Note: No nausea or emesis reported this shift. Patient has PRN PO/IV Zofran 4 mg Q6H. Recei ving IV hydration of NS @ 100 mL/hour. Problem: Neutropenia (Chemotherapy Effects) Goal: Absence of Infection Outcome: Ongoing, progressing Intervention: Prevent Infection and Maximize Resistance Note: ANC is 7.41. Patient is not neutropenic. Monitoring for signs of infection. Continuin g with proper hand hygiene and PPE. documented in this enc ounter H&P Notes Addie Whiteside MD - 04/29/2020 6:49 PM PDTFormatting of this note might be different from [facility] Service: Hospitalist History and Physical Date of Admission: April 29, 2020 Requesting Physician: Oncologist Dr. Jeff Reason for Admission: 2nd cycle chemotherapy CHIEF COMPLAINT: Oncology team Dr. Jeff requested for direct admission for 2nd cycle of chemotherapy for diffuse large B-cell [...] oncology team for admit for chemo Cycle# 2nd 1-5 EPOCH. Scheduled for day 6 Neulasta. He was started Rituxan on april 23 He denies any recent cough congestion GI symptoms or skin rash oncology he is no longer nee ded allopurinol at that time He was [place] [facility] [place] for the first cycle of chemo REVIEW OF SYSTEMS 12 point ROS reviewed and negative other than above Past Medical History: Diagnosis Date Chronic cough 2019 Chronic headaches 2 x's per month History of pneumonia Lymphoma involving lung (HCC) 2019 right lung mass Past Surgical History: Procedure Laterality Date LYMPH NODE BIOPSY Right 03/20/2020 Procedure: BIOPSY DEEP CERVICAL NODE; Surgeon: She Huang DO; [place] [facility] [place] No Known Allergies No medications prior to admission. Family History Problem Relation Age of Onset Bone Cancer Other Lung cancer Paternal Grandfather Cancer Paternal Grandmother Social History Tobacco Use Smoking Status Former Smoker Packs/day: 1.00 Years: 7.00 Pack years: 7.00 Types: Cigarettes Start date: 02/24/2020 Smokeless Tobacco Former User Types: Chew Tobacco Comment quit 02/22/2020 / chews 1 can tobacco/week Social History Substance and Sexual Activity Alcohol Use Not Currently Social History Substance and Sexual Activity Drug Use Yes Frequency: 7.0 times per week Types: Marijuana Comment: edibles PHYSICAL EXAM Vital Signs: There were no [...] CBC: Lab Results Component Value Date WBC 13.97 (H) 04/27/2020 RBC 3.71 (L) 04/27/2020 HGB 10.7 (L) 04/27/2020 HCT 32.1 (L) 04/27/2020 MCV 86.5 04/27/2020 MCH 28.8 04/27/2020 MCHC 33.3 04/27/2020 PLT 216 04/27/2020 MPV 7.1 04/27/2020 DIFFTYPE MANUAL 04/27/2020 CMP: Lab Results Component Value Date NA 140 04/27/2020 K 4.5 04/27/2020 CL 105 04/27/2020 CO2 27 04/27/2020 ANIONGAP 13 04/27/2020 BUN 21 (H) 04/27/2020 AGRATIO 1.7 04/27/2020 AST 23 04/27/2020 ALT 56 (H) 04/27/2020 EGFR >60 04/27/2020 BMP: Lab Results Component Value Date NA 140 04/27/2020 K 4.5 04/27/2020 CL 105 04/27/2020 CO2 27 04/27/2020 ANIONGAP 13 04/27/2020 BUN 21 (H) 04/27/2020 EGFR >60 04/27/2020 Hepatic Function Panel: Lab Results Component Value Date AST 23 04/27/2020 ALT 56 (H) 04/27/2020 Magnesium: Lab Results Component Value Date MG 1.9 04/09/2020 Phosphorus: Lab Results Component Value Date PHOS 4.7 04/09/2020 PT/INR: Lab Results Component Value Date INR 1.0 04/01/2020 PTT: No results found for: APTT[APTT HgbA1c: No components found for: HGBA1C Active Problems: Diffuse large B-cell lymphoma, positive for CD20, CD23, BCL 6, CD79a, and PAX 5. Ki-67 wa s 60%. 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 smoker ASSESSMENT AND PLAN: Diffuse large B-cell lymphoma, positive for CD20, CD23, BCL 6, CD79a, and PAX 5. Ki-67 was 60%. 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 admit for chemo second cycle for Cycle#2nd 1-5 EPOCH. Scheduled for day 6 Neulasta. Started Rituxan on 06 april 2020 as out patient on 06 April at the clinic IVF NS at 100 cc/h A.m. lab CBC,CMP mag and phos He no longer need of allopurinol at that time by oncology chronic smoker nicotine Patch for now DVT pro Hospital records reviewed. Labs and radiologic studies and reports reviewed. Discussed find ings with patient and patient family and also explaining what will be the care plan Old records reviewed on EMR. Dictation software, [employer], used which may contain error for similar sounding words even af ter review. Personal communication requested for any clarification. Disposition: inpatient Code Status: FULL CODE Primary Care Physician: MD Addie Frank MD 04/29/2020 documented in th is encounter Miscellaneous Notes Plan of Care - Konstantin Ram RN - 2020 5:56 PM PDT Problem: Adult Inpatient Plan of Care Goal: Readiness for Transition of Care Outcome: Met Intervention: Mutually Develop Transition Plan Note: Patient discharged to home via private vehicle. Discharge instructions, scripts and F /U appts reviewed with patient with no issues noted. Patient tolerated chemo. Port de-accessed post heparin flush. lan of Care - Konstantin Ram RN - 2020 3:44 PM PDT Problem: Adult Inpatient Plan of Care Goal: Plan of Care Review Outcome: Met Goal: Patient-Specific Goal Outcome: Met Goal: Absence of Hospital-Acquired Illness or Injury Outcome: Met Goal: Optimal Comfort and Wellbeing Outcome: Met Goal: Readiness for Transition of Care Outcome: Met Intervention: Mutually Develop Transition Plan Note: Patient discharged to home via private vehicle. Discharge instructions, scripts and F /U appts reviewed with patient with no issues noted. Goal: Rounds/Family Conference Outcome: Met lan of Care - Luly Ramachandran RN - 2020 1:44 PM PDTPt to discharge to home today upon completion of chemo. No anticipated discharge needs.Electronically signed by Luly Langley RN at 1:45 PM PDTPlan of Care - Cherelle Baron RN - 2020 6:55 AM PDTEnd of shift note: Patient having occasional nausea- medicated PRN. No other changes to note from initial asse ssment. Continuous chemo infusing with out any s/s of adverse reaction. 24 hour chart check complete. End of shift audit complete. Problem: Adult Inpatient Plan of Care Goal: Optimal Comfort and Wellbeing Outcome: Ongoing, progressing Goal: Readiness for Transition of Care Outcome: Ongoing, progressing Problem: Thrombocytopenia Bleeding Risk (Chemotherapy Effects) Goal: Absence of Bleeding Outcome: Ongoing, progressing Pain Goal: Patient s pain/discomfort is manageable Assess and monitor patient s pain using appropriate pain scale. Collaborate with interdis ciplinary team and initiate plan and interventions as ordered. Re-assess patient s pain le jorge luis approximately 1-2 hours after pain management intervention. Premedicate as needed. Outcome: Progressing Patient states pain is under control on current regimen. Will continue to monitor and provi de medication as well as comfort measures as needed. Safety Goal: Patient will be injury free during hospitalization Assess and monitor vitals signs, neurological status including level of consciousness and o rientation. Assess patient s risk for falls and implement fall prevention plan of care and interventions per hospital policy. Ensure arm band on, uncluttered walking paths in room, adequate room lighting, call light a nd overbed table within reach, bed in low position, wheels locked, side rails up per policy, and non-skid footwear provided. Outcome: Progressing Patient will remain free from falls during hospital visit. Bed in lowest position. Room analia e from clutter. Call light within reach. Fall Prevention Goal: No Falls during Hospital Stay Outcome: Progressing Maintain bed in low, locked position at all times. [place] patient and family to hospital surroundings. Provide non-skid slippers. Call light within reach. Hourly rounding performed per standard. Discharge Goal: Patient's discharge needs are met. Outcome: Progressing Working with ancillary staff and Preschool Adviser to identify discharge barriers and meet patie nt's discharge needs lan of Care - Nai Seals RN - 05/03/2020 5:57 PM PDT Problem: Adult Inpatient Plan of Care Goal: Plan of Care Review Outcome: Ongoing, progressing Problem: Anemia (Chemotherapy Effects) Goal: Anemia Symptom Improvement Outcome: Ongoing, progressing End of shift note: Patient currently on Day 4, Cycle 2 of treatment. Labs review. Patient w as seen and cleared by Dr. Fenton, Oncology for treatment today. Orders and plan 2RN verified with [facility]. Patient encouraged to call with any questions or concerns. Patient tolerat ed treatment well, and all questions were answered. No reaction, no unaddressed acute change s from documention. Medicated patient x2 for nausea. End of shift review complete. Electroni shraddha signed by Nai Pina RN at 05/03/2020 5:58 PM PDTPlan of Care - Patricia Baron RN - 05/03/2020 6:11 AM PDTEnd of shift note: Continuous chemo infusing with no s/s of adverse reaction. No nausea reported. No changes f rom initial assessment. 24 hour chart check complete. End of shift audit complete. Problem: Adult Inpatient Plan of Care Goal: Optimal Comfort and Wellbeing Outcome: Ongoing, progressing Problem: Nausea and Vomiting (Chemotherapy Effects) Goal: Fluid and Electrolyte Balance Outcome: Ongoing, progressing Problem: Oral Mucositis (Chemotherapy Effects) Goal: Improved Oral Mucous Membrane Integrity 05/02/2020 1947 by Cherelle Baron RN Outcome: Ongoing, progressing 05/02/2020 0611 by Cherelle Baron RN Outcome: Ongoing, progressing Pain Goal: Patient s pain/discomfort is manageable Assess and monitor patient s pain using appropriate pain scale. Collaborate with interdis ciplinary team and initiate plan and interventions as ordered. Re-assess patient s pain le jorge luis approximately 1-2 hours after pain management intervention. Premedicate as needed. Outcome: Progressing Patient states pain is under control on current regimen. Will continue to monitor and provi de medication as well as comfort measures as needed. Safety Goal: Patient will be injury free during hospitalization Assess and monitor vitals signs, neurological status including level of consciousness and o rientation. Assess patient s risk for falls and implement fall prevention plan of care and interventions per hospital policy. Ensure arm band on, uncluttered walking paths in room, adequate room lighting, call light a nd overbed table within reach, bed in low position, wheels locked, side rails up per policy, and non-skid footwear provided. Outcome: Progressing Patient will remain free from falls during hospital visit. Bed in lowest position. Room analia e from clutter. Call light within reach. Fall Prevention Goal: No Falls during Hospital Stay Outcome: Progressing Maintain bed in low, locked position at all times. [place] patient and family to hospital surroundings. Provide non-skid slippers. Call light within reach. Hourly rounding performed per standard. Discharge Goal: Patient's discharge needs are met. Outcome: Progressing Working with ancillary staff and Preschool Adviser to identify discharge barriers and meet ronni florentino's discharge needs lan of Nai Zamora RN - 05/02/2020 6:01 PM PDT Problem: Urinary Bleeding Risk or Actual (Chemotherapy Effects) Goal: Absence of Hematuria Outcome: Ongoing, progressing Intervention: Prevent or Manage Hemorrhagic Cystitis Flowsheets (Taken 05/02/2020 0944) Hyperhydration Management: encouraged to void fluids provided Note: Monitored patient throughout shift for any bleeding. Patient aware and is able to mon itor as well, patient is able to self report. Problem: Neutropenia (Chemotherapy Effects) Goal: Absence of Infection Outcome: Ongoing, progressing Intervention: Prevent Infection and Maximize Resistance Note: Lab work monitored daily. End of shift note: Patient currently on Day 3, Cycle 2 of treatment. Labs reviewed. Leah fajardo was seen and cleared by Dr. Jossy MD, Oncology for treatment today. Orders and plan 2 RN verified with Sari Valente RN. Patient encouraged to call with any questions or concerns. Patient tolerated treatment well, and all questions were answered. No reaction, nor unaddressed acu te changes from documentation. VSS, End of shift review complete. lan of Nai Bullock RN - 0 7:23 AM PDTChemo handoff at bedside running 28ml/hr with CHI Villarreal. Electronically sig colleen by Nai Pina RN at 05/02/2020 7:23 AM PDTPlan of Cherelle Cabrera RN - 05/02/2020 6:11 AM PDTEnd of shift note: Patient had nausea and Ativan given x1. Filter on chemo line started to leak (there was no actual chemo spill) and KENTRELL Briscoe was contacted and chemo was taken to pharmacy by her an d packaging fixed. Chemo has been running since bag brought back up to floor from pharmacy ( see eMAR). No other changes to note. 24 hour chart check complete. End of shift audit complete. Problem: Adult Inpatient Plan of Care Goal: Optimal Comfort and Wellbeing Outcome: Ongoing, progressing Problem: Oral Mucositis (Chemotherapy Effects) Goal: Improved Oral Mucous Membrane Integrity Outcome: Ongoing, progressing Pain Goal: Patient s pain/discomfort is manageable Assess and monitor patient s pain using appropriate pain scale. Collaborate with interdis ciplinary team and initiate plan and interventions as ordered. Re-assess patient s pain le jorge luis approximately 1-2 hours after pain management intervention. Premedicate as needed. Outcome: Progressing Patient states pain is under control on current regimen. Will continue to monitor and provi de medication as well as comfort measures as needed. Safety Goal: Patient will be injury free during hospitalization Assess and monitor vitals signs, neurological status including level of consciousness and o rientation. Assess patient s risk for falls and implement fall prevention plan of care and interventions per hospital policy. Ensure arm band on, uncluttered walking paths in room, adequate room lighting, call light a nd overbed table within reach, bed in low position, wheels locked, side rails up per policy, and non-skid footwear provided. Outcome: Progressing Patient will remain free from falls during hospital visit. Bed in lowest position. Room analia e from clutter. Call light within reach. Fall Prevention Goal: No Falls during Hospital Stay Outcome: Progressing Maintain bed in low, locked position at all times. [place] patient and family to hospital surroundings. Provide non-skid slippers. Call light within reach. Hourly rounding performed per standard. Discharge Goal: Patient's discharge needs are met. Outcome: Progressing Working with ancillary staff and Preschool Adviser to identify discharge barriers and meet patie nt's discharge needs lan of Care - Nai Seals RN - 05/01/2020 6:09 PM PDT Problem: Anemia (Chemotherapy Effects) Goal: Anemia Symptom Improvement Outcome: Ongoing, progressing Intervention: Monitor and Manage Anemia Flowsheets (Taken 05/01/2020 0927) Oral Nutrition Promotion: rest periods promoted Fatigue Management: frequent rest breaks encouraged activity schedule adjusted Problem: Oral Mucositis (Chemotherapy Effects) Goal: Improved Oral Mucous Membrane Integrity Outcome: Ongoing, progressing Intervention: Promote Oral Comfort and Health Flowsheets (Taken 04/30/2020 1011 by Sari Duran RN) Oral Mucous Membrane Protection: lip/mouth moisturizer applied nonirritating oral fluids promoted End of shift note: Patient currently on Day 2 Cycle 2 of treatment. Labs reviewed. Patient was seen and cleared by Mayte SHARIF, Oncology for treatment today. Orders and plan 2 RN verified with Jermaine Lambert RN. [place] encouraged to call with any questions or concerns. Chery ent tolerated treatment well, and all questions were answered. No reaction, nor unaddressed acute changes from documentation. VSS, patient given PRN medications x3 for nausea. End of s hift review complete. P DTPlan of Care - Cherelle Baron RN - 05/01/2020 5:54 AM PDTEnd of shift note: Continuous chemo continues to infuse. No changes to initial assessment. 24 hour chart check complete. End of shift audit complete. Problem: Adult Inpatient Plan of Care Goal: Patient-Specific Goal Outcome: Ongoing, progressing Goal: Absence of Hospital-Acquired Illness or Injury Outcome: Ongoing, progressing Goal: Optimal Comfort and Wellbeing Outcome: Ongoing, progressing Problem: Anemia (Chemotherapy Effects) Goal: Anemia Symptom Improvement Outcome: Ongoing, progressing Pain Goal: Patient s pain/discomfort is manageable Assess and monitor patient s pain using appropriate pain scale. Collaborate with interdis ciplinary team and initiate plan and interventions as ordered. Re-assess patient s pain le jorge luis approximately 1-2 hours after pain management intervention. Premedicate as needed. Outcome: Progressing Patient states pain is under control on current regimen. Will continue to monitor and provi de medication as well as comfort measures as needed. Safety Goal: Patient will be injury free during hospitalization Assess and monitor vitals signs, neurological status including level of consciousness and o rientation. Assess patient s risk for falls and implement fall prevention plan of care and interventions per hospital policy. Ensure arm band on, uncluttered walking paths in room, adequate room lighting, call light a nd overbed table within reach, bed in low position, wheels locked, side rails up per policy, and non-skid footwear provided. Outcome: Progressing Patient will remain free from falls during hospital visit. Bed in lowest position. Room analia e from clutter. Call light within reach. Fall Prevention Goal: No Falls during Hospital Stay Outcome: Progressing Maintain bed in low, locked position at all times. [place] patient and family to hospital surroundings. Provide non-skid slippers. Call light within reach. Hourly rounding performed per standard. Discharge Goal: Patient's discharge needs are met. Outcome: Progressing Working with ancillary staff and Preschool Adviser to identify discharge barriers and meet patie nt's discharge needs lan of [facility] - Sari Dumas RN - 04/30/2020 6:40 PM PDTPatient tolerated chemo well today. NO changes t o am assessment. Vital signs stable. End of shift review complete Sari Duran RN Electr onically signed by Sari Duran RN at 04/30/2020 6:40 PM PDTPlan of [facility] - Isi Dee RD - 04/30/2020 10:56 AM PDTFormatting of this note might be different from the origin al. NUTRITION NOTE Summary Pt triggered for chemo admit (2nd cycle). Pt admitted for diffuse large B-cell lymphoma of lymph nodes of multiple regions. 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 Pt does not dri nk any protein drinks/shakes at home. Fluid/Beverage Intake Oral Fluids Amount: Fluids ad fiordaliza. Food Intake Amount of Food: Pt reports he had 100% of breakfast this morning. Type of Food/Meals: General diet Nutritionally Relevant Medications NS running at 100 ml/hr. Nutrition-Focused Physical Findings Digestive System (Mouth to Rectum): Pt declined chewing/swallowing issues and mouth sores. Per RN pt reported mouth sores after previous chemo. Anthropometrics Admit wt: 94.5 kg. Pt's BMI is 29.1 and pt is 121% of IBW. Pt reports he has gained 20# sin ce previous admit and is now at 210#. Per medical records on 04/08/20 pt weighed 88.1 kg which would be a 6.4 kg wt gain over the past 3 weeks. Biochemical Data, Medical Test, and Procedures Recent Labs 04/30/20 0330 NA 140 K 4.1 GLU 82 BUN 23 CREA 0.90 PHOS 5.4* MG 1.9 Recommendations General diet. Encourage po intake with protein rich foods. Supplements prn. Monitor and follow as indicated. Nutritional Risk Required Follow Up: (LM; 05/06) Poonam Dee RD 04/30/2020 10:56 AM PDT lan of Stef - Sari Vences RN - 04/30/2020 10:11 AM PDT Problem: Oral Mucositis (Chemotherapy Effects) Goal: Improved Oral Mucous Membrane Integrity Outcome: Ongoing, progressing Intervention: Promote Oral Comfort and Health 04/30/2020 1011 by Sari Duran RN Flowsheets (Taken 04/30/2020 1011) Oral Mucous Membrane Protection: lip/mouth moisturizer applied nonirritating oral fluids promoted Note: Patient denies mouth sores at this time. Will continue to monitor during this cycle Problem: Adult Inpatient Plan of Care Goal: Plan of Care Review Outcome: Ongoing, progressing Flowsheets (Taken 04/30/2020 1006) Plan of Care Reviewed With: patient Note: Patients plan of care discussed with him. All questions answered. lan of Stef - Carlee Mensah RN - 04/30/2020 9:40 AM PDTCare Management Initial Assessment Readmission Risk: Medium Status Prior to Admission or Illness Arrival From: home or self-care Lives With: child(margarita), dependent, significant other Living Arrangements: house Caregiver For: no one Functional Status: Independent Home Accessibility: no concerns Transportation Available: family or friend will provide Able to return to prior living: yes Care Management Concerns Last discharge date: 04/13/20 Readmission Within Last 30 Days: planned readmission [place] [facility] [place]: Myrna Mejia MD Contact Information Family Contact Information: Name: Marcos Morgan (s.o) [place] Needs Assessment Current Outpt/Agency/Support Groups: infusion therapy, outpatient (specify) Community Agency Name: [facility] Anticipated Changes Related to Illness: none Concerns to be Addressed: denies needs/concerns at this time Services Anticipated at Discharge: infusion therapy, outpatient Equipment Used at Home: none Equipment Needed after Discharge: none Pharmacy/Medication Needs: ([facility] in [place]) Transportation Needs: family or friend will provide Initial Plan Anticipated Discharge Disposition: home with assist Expected DC Date: 05/04/20 Steps Taken Toward Discharge: Initial discharge planning assessment. Next Steps: CM to follow for discharge planning needs. Notes: Pt is from home with significant other and kids, independent. Pt does not use DME/O2 /CPAP. Pt admitted for 2nd cycle of chemo for B-cell lymphoma. Electronically signed: Carlee Chester RN 04/30/2020 9:40 AM PDT documented in this encounter Plan of Treatment [...] [place] | | | | | | [id number] | | | | | | | | +--------+ + + + + | 06/29/ | Office | Oncology | Wilton Jeff MD | | | 2019 | Visit | | [address] | | | | | | [place] | | | | | | [address] | | | | | | | | | | | | Marilou Mcmullen, | | | | | | [address] | | | [address] | | | | | | [place] [address] | | | | | | [phone] | | | | | | | | +--------+ + + + + | 06/29/ | Appointment | Infusion Therapy | Wilton Jeff MD | | | 2019 | | | [address] | | | | | | [place] | | | | | | [address] | | | | | | | | +--------+ + + + + | 07/14/ | Office | Otolaryngology | She Huang | | | 2019 | Visit | | DO Sophia Canela | | | | | | [address] | | | | | | [place] [address] | | | | | | [phone] | | | | | | | | +--------+ + + + + | 07/20/ | Appointment | Infusion Therapy | Wilton Jeff MD | | | 2019 | | | [address] | | | | | | [place] | | | | | | [address] | | | | | | | | +--------+ + + + + | 07/20/ | Office | Oncology | Wilton Jeff MD | | | 2019 | Visit | | [address] | | | | | | [place] | | | | | | [address] | | | | | | | | +--------+ + + + + | 07/20/ | Appointment | Infusion Therapy | Wilton Jeff MD | | | 2019 | | | [address] | | | | | | [place] | | | | | | [address] | | | | | | | | +--------+ + + + + | 08/17/ | Appointment | Infusion Therapy | Wilton Jeff MD | | | 2019 | | | [address] | | | | | | [place] | | | | | | [address] | | | | | | | | +--------+ + + + + | 08/17/ | Office | Oncology | Wilton Jeff MD | | | 2019 | Visit | | [address] | | | | | | [place] | | | | | | [address] | | | | | | | | +--------+ + + + + documented as of this encounter Procedures + +--------+ + + + | Procedure Name | Priori | Date/Time | Associated Diagnosis | Comments | | | ty | | | | + +--------+ + + + | XR CHEST 2 VIEWS | STAT | 2020 | Diffuse large | Results for this | | | | 4:45 PM | 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 | | | | | multiple regions | | | | | | (HCC) | | + +--------+ + + + | ALT | Add-On | 2020 | | Results for this | | | | 5:18 AM | | procedure are in the | | | | PDT | | results section. | + +--------+ + + + | CBC WITH | Routin | 2020 | | Results for this | | DIFFERENTIAL | e | 5:18 AM | | procedure are in the | | | | PDT | | results section. | + +--------+ + + + | AST | Add-On | 2020 | | Results for this | | | | 5:18 AM | | procedure are in the | | | | PDT | | results section. | + +--------+ + + + | BILIRUBIN, TOTAL | Add-On | 2020 | | Results for this | | | | 5:18 AM | | procedure are in the | | | | PDT | | results section. | + +--------+ + + + | BASIC METABOLIC | Routin | 2020 | | Results for this | | PANEL | e | 5:18 AM | | procedure are in the | | | | PDT | | results section. | + +--------+ + + + | CBC WITH | Routin | 05/03/2020 | | Results for this | | DIFFERENTIAL | e | 4:05 AM | | procedure are in the | | | | PDT | | results section. | + +--------+ + + + | BASIC METABOLIC | Routin | 05/03/2020 | | Results for this | | PANEL | e | 4:05 AM | | procedure are in the | | | | PDT | | results section. | + +--------+ + + + | CBC WITH | Routin | 05/02/2020 | | Results for this | | DIFFERENTIAL | e | 2:31 AM | | procedure are in the | | | | PDT | | results section. | + +--------+ + + + | BASIC METABOLIC | Routin | 05/02/2020 | | Results for this | | PANEL | e | 2:31 AM | | procedure are in the | | | | PDT | | results section. | + +--------+ + + + | CBC WITH | Routin | 05/01/2020 | | Results for this | | DIFFERENTIAL | e | 5:05 AM | | procedure are in the | | | | PDT | | results section. | + +--------+ + + + | BASIC METABOLIC | Routin | 05/01/2020 | | Results for this | | PANEL | e | 5:05 AM | | procedure are in the | | | | PDT | | results section. | + +--------+ + + + | CBC WITH | Routin | 04/30/2020 | | Results for this | | DIFFERENTIAL | e | 3:30 AM | | procedure are in the | | | | PDT | | results section. | + +--------+ + + + | PHOSPHORUS | Routin | 04/30/2020 | | Results for this | | | e | 3:30 AM | | procedure are in the | | | | PDT | | results section. | + +--------+ + + + | MAGNESIUM | Routin | 04/30/2020 | | Results for this | | | e | 3:30 AM | | procedure are in the | | | | PDT | | results section. | + +--------+ + + + | COMPREHENSIVE | Routin | 04/30/2020 | | Results for this | | METABOLIC PANEL | e | 3:30 AM | | procedure are in the | | | | PDT | | results section. | + +--------+ + + + documented in this encounter Results XR Chest 2 Vws (2020 4:45 PM PDT) + + | Specimen | + + | | + + + + + | Impressions | Performed At | + + + | Redemonstrated right perihilar opacity consistent with mass better | [facility] | | seen on prior PET. No superimposed parenchymal abnormality. | | | Final Report Signed by: Ananth Vickers Wendy Sign Date/Time: | | | 2020 4:50 PM | | + + + + + + | Narrative | Performed At | + + + | CHEST TWO VIEWS CLINICAL INFORMATION: Cough COMPARISON: | [facility] | | IR PLACEMENT PORT > 5 YEARS (04/01/2020); PET CT SKULL BASE TO MID | | | THIGH (03/16/2020); FINDINGS: Right chest wall port catheter tip | | | overlies the SVC. Stable cardiomediastinal contours. | | | Redemonstrated right perihilar opacity consistent with mass better | | | seen on prior PET. No superimposed consolidations, pleural | | | effusions, or pneumothorax. No acute osseous change. | | + + + + + | Procedure Note | + + | Stan, [id number] - 2020 4:54 PM PDT | | CHEST TWO VIEWS | | | | CLINICAL INFORMATION: | | Cough | | | | COMPARISON: | | IR PLACEMENT PORT > 5 YEARS (04/01/2020); PET CT SKULL BASE TO MID THIGH | | (03/16/2020); | | | | FINDINGS: | | Right chest wall port catheter tip overlies the SVC. Stable | | cardiomediastinal contours. Redemonstrated right perihilar opacity | | consistent with mass better seen on prior PET. No superimposed | | consolidations, pleural effusions, or pneumothorax. No acute osseous | | change. | | | | IMPRESSION: | | Redemonstrated right perihilar opacity consistent with mass better seen | | on prior PET. No superimposed parenchymal abnormality. | | | | | | | | Final Report Signed by: Ananth Vickers Wendy | | Sign Date/Time: 2020 4:50 PM | + + + +---------+ + + | Performing | Address | City/State/Zipcode | Phone Number | | Organization | | | | + +---------+ + + | [facility] | | | | + +---------+ + + AST (2020 5:18 AM PDT) + + + + + + | Component | Value | Ref Range | Performed | Pathologist | | | | | At | Signature | + + + + + + | AST | 17Comment: Testing | 10 - 45 U/L | [facility] | | | | performed at [facility] | | [facility] | | | | [place] | | | | | | [address] | | | | + + + + + + + + | Specimen | + + | Blood | + + + + + + + | Performing | Address | City/State/Zipcode | Phone Number | | Organization | | | | + + + + + | [facility] | [address] | [place] [address] | [phone] | + + + + + ALT (2020 5:18 AM PDT) + + + + + + | Component | Value | Ref Range | Performed | Pathologist | | | | | At | Signature | + + + + + + | ALT | 38Comment: Testing | 10 - 65 U/L | [facility] | | | | performed at [facility] | | LABORATORY | | | | [place] | | | | | | [address] | | | | + + + + + + + + | Specimen | + + | Blood | + + + + + + + | Performing | Address | City/State/Zipcode | Phone Number | | Organization | | | | + + + + + | [facility] | [address] | [place] [address] | [phone] | + + + + + Bilirubin, total (2020 5:18 AM PDT) + + + + + + | Component | Value | Ref Range | Performed | Pathologist | | | | | At | Signature | + + + + + + | BILIRUBIN, | 0.7Comment: Testing | 0.1 - 1.5 mg/dL | [facility] | | | TOTAL | performed at [facility] | | LABORATORY | | | | [place] | | | | | | [address] | | | | + + + + + + + + | Specimen | + + | Blood | + + + + + + + | Performing | Address | City/State/Zipcode | Phone Number | | Organization | | | | + + + + + | [facility] | [address] | [place] [address] | [phone] | + + + + + Basic Metabolic Panel (2020 5:18 AM PDT) + + + + + + | Component | Value | Ref Range | Performed | Pathologist | | | | | At | Signature | + + + + + + | Na | 137 | 135 - 145 | [facility] | | | | | mmol/L | LABORATORY | | + + + + + + | K | 3.7 | 3.5 - 4.9 | [facility] | [...] + + + + | Glucose | 98 | 65 - 99 mg/dL | [facility] | | | | | | LABORATORY | | + + + + + + | BUN | 19 | 8 - 25 mg/dL | [facility] | | | | | | LABORATORY | | + + + + + + | Creatinine | 0.70 | 0.70 - 1.30 | [facility] | | | | | mg/dL | LABORATORY | | + + + + + + | BUN/Creatin | 27 | | [facility] | | | ine Ratio | | | LABORATORY | | + + + + + + | Calcium | 8.5 | 8.5 - 10.5 | [facility] | | | | | mg/dL | [...] | | | | | | MDRD IDTN traceable | | | | | | equation.Testing | | | | | | performed at [facility], [address] | | | | | | [facility], | | | | | | [place] [address] | | | | + + + + + + + + | Specimen | + + | Blood | + + + + + + + | Performing | Address | City/State/Zipcode | Phone Number | | Organization | | | | + + + + + | [facility] | [address] | [place] [address] | [phone] | + + + + + CBC with Differential (2020 5:18 AM PDT) + + + + + + | Component | Value | Ref Range | Performed | Pathologist | | | | | At | Signature | + + + + + + | WBC | 6.28 | 3.80 - 11.00 | [facility] | | | | | K/uL | LABORATORY | | + + + + + + | Red Blood | 4.07 (L) | 4.20 - 5.70 | [facility] | | | Cells | | M/uL | LABORATORY | | + + + + + + | Hemoglobin | 11.6 (L) | 13.2 - 17.0 | [facility] | | | | | g/dL | LABORATORY | | + + + + + + | Hematocrit | 35.0 (L) | 39.0 - 50.0 % | [facility] | | | | | | LABORATORY | | + + + + + + | MCV | 86.0 | 80.0 - 100.0 fl | [facility] | | | | | | LABORATORY | | + + + + + + | MCH | 28.5 | 27.0 - 34.0 pg | [facility] | | | | | | LABORATORY | | + + + + + + | MCHC | 33.1 | 32.0 - 35.5 | [facility] | | | | | g/dL | LABORATORY | | + + + + + + | RDW-SD | 51.4 | 37 - 53 fl | [facility] | | | | | | LABORATORY | | + + + + + + | Platelet | 362 | 150 - 400 K/uL | [facility] | | | Count | | | LABORATORY | | + + + + + + | MPV | 9.4Comment: NO NORMAL | fl | [facility] | [...] + + + + | % | 87.70 | % | [facility] | | | Neutrophils | | | LABORATORY | | + + + + + + | IMMATURE | 1.00 | % | [facility] | | | GRANULOCYTE | | | LABORATORY | | + + + + + + | % | 6.50 | % | [facility] | | | Lymphocytes | | | LABORATORY | | + + + + + + | Monocyte % | 4.80 | % | [facility] | | | [...] + + + + | Neutrophils | 5.51 | 1.90 - 7.40 | [facility] | | | , Absolute | | K/uL | LABORATORY | | + + + + + + | IMMATURE | 0.06Comment: NOTE NEW | 0.00 - 0.07 | [facility] | | | GRANS AB | REFERENCE RANGE | K/uL | LABORATORY | | + + + + + + | Absolute | 0.41 (L) | 1.00 - 3.90 | [facility] | | | Lymphocytes | | K/uL | LABORATORY | | + + + + + + | Absolute | 0.30 | 0.00 - 0.80 | [facility] | | | Monocytes | | K/uL | LABORATORY | | + + + + + + | Eosinophils | 0.00 | 0.00 - 0.50 | [facility] | | | , Absolute | | K/uL | LABORATORY | | + + + + + + | Basophils, | 0.00Comment: Testing | 0.00 - 0.10 | [facility] | | | Absolute | performed at [facility], [address] | K/uL | LABORATORY | | | | [facility], | | | | | | [place] [address] | | | | + + + + + + + + | Specimen | + + | Blood | + + + + + + + | Performing | Address | City/State/Zipcode | Phone Number | | Organization | | | | + + + + + | [facility] | [address] | [place] [address] | [phone] | + + + + + Basic Metabolic Panel (05/03/2020 4:05 AM PDT) + + + + + + | Component | Value | Ref Range | Performed | Pathologist | | | | | At | Signature | + + + + + + | Na | 141 | 135 - 145 | [facility] | | | | | mmol/L | LABORATORY | | + + + + + + | K | 3.9 | 3.5 - 4.9 | [facility] | | | | | mmol/L | LABORATORY | | + + + + + + | Cl | 107 | 99 - 109 mmol/L | [facility] [...] + + + + | Glucose | 78 | 65 - 99 mg/dL | [facility] | | | | | | LABORATORY | | + + + + + + | BUN | 20 | 8 - 25 mg/dL | [facility] | | | | | | LABORATORY | | + + + + + + | Creatinine | 0.83 | 0.70 - 1.30 | [facility] | [...] | | | | | performed at [facility] | | | | | | [facility];[place], [place] | | | | | | [address] | | | | + + + + + + + + | Specimen | + + | Blood | + + + + + + + | Performing | Address | City/State/Zipcode | Phone Number | | Organization | | | | + + + + + | [facility] | [address] [facility] | [place] [address] | [phone] | + + + + + CBC with Differential (05/03/2020 4:05 AM PDT) + + + + + + | Component | Value | Ref Range | Performed | Pathologist | | | | | At | Signature | + + + + + + | WBC | 9.95 | 3.80 - 11.00 | [facility] | | | | | K/uL | LABORATORY | | + + + + + + | Red Blood | 3.78 (L) | 4.20 - 5.70 | [facility] | | | Cells | | M/uL | LABORATORY | | + + + + + + | Hemoglobin | 10.8 (L) | 13.2 - 17.0 | [facility] | | | | | g/dL | LABORATORY | | + + + + + + | Hematocrit | 34.3 (L) | 39.0 - 50.0 % | [facility] | | | | | | LABORATORY | | + + + + + + | MCV | 90.7 | 80.0 - 100.0 fl | [facility] | | | | | | LABORATORY | | + + + + + + | MCH | 28.6 | 27.0 - 34.0 pg | [facility] | | | | | | LABORATORY | | + + + + + + | MCHC | 31.5 (L) | 32.0 - 35.5 | [facility] | | | | | g/dL | LABORATORY | | + + + + + + | RDW-SD | 55.7 (H) | 37 - 53 fl | [facility] | | | | | | LABORATORY | | + + + + + + | Platelet | 313 | 150 - 400 K/uL | [facility] | | | Count | | | LABORATORY | | + + + + + + | MPV | 9.4Comment: NO NORMAL | fl | [facility] | [...] + + + + | % | 77.80 | % | [facility] | | | Neutrophils | | | LABORATORY | | + + + + + + | IMMATURE | 1.90 | % | [facility] | | | GRANULOCYTE | | | LABORATORY | | + + + + + + | % | 11.00 | % | [facility] | | | Lymphocytes | | | LABORATORY | | + + + + + + | Monocyte % | 9.10 | % | [facility] | | | [...] + + + + | Neutrophils | 7.74 (H) | 1.90 - 7.40 | [facility] | | | , Absolute | | K/uL | LABORATORY | | + + + + + + | IMMATURE | 0.19 (H)Comment: NOTE | 0.00 - 0.07 | [facility] | | | GRANS AB | NEW REFERENCE RANGE | K/uL | LABORATORY | | + + + + + + | Absolute | 1.09 | 1.00 - 3.90 | [facility] | | | Lymphocytes | | K/uL | LABORATORY | | + + + + + + | Absolute | 0.91 (H) | 0.00 - 0.80 | [facility] [...] | | | Absolute | performed at [facility] | K/uL | LABORATORY | | | | [address] [place] | | | | | | [address] | | | | + + + + + + + + | Specimen | + + | Blood | + + + + + + + | Performing | Address | City/State/Zipcode | Phone Number | | Organization | | | | + + + + + | [facility] | [address] | [place] [address] | [phone] | + + + + + Basic Metabolic Panel (05/02/2020 2:31 AM PDT) + + + + + + | Component | Value | Ref Range | Performed | Pathologist | | | | | At | Signature | + + + + + + | Na | 137 | 135 - 145 | [facility] | | | | | mmol/L | LABORATORY | | + + + + + + | K | 3.8 | 3.5 - 4.9 | [facility] | | | | | mmol/L | LABORATORY | | + + + + + + | Cl | 105 | 99 - 109 mmol/L | [facility] | | | | | | LABORATORY | | + + + + + + | CO2 | 26 | 23 - 32 mmol/L | [facility] | | | | | | LABORATORY | | + + + + + + | Anion Gap | 10 | 5 - 20 mmol/L | [facility] | | | | | | LABORATORY | | + + + + + + | Glucose | 125 (H) | 65 - 99 mg/dL | [...] | 9.0 | 8.5 - 10.5 | [facility] | | | | | mg/dL | LABORATORY | | + + + + + + | Estimated | >60Comment: GFR <60: | >60 | [facility] | | | GFR | CHRONIC KIDNEY [...] | | | | | | MDRD IDTN traceable | | | | | | equation.Testing | | | | | | performed at [facility] | | | | | | [facility];[place], [place] | | | | | | [address] | | | | + + + + + + + + | Specimen | + + | Blood | + + + + + + + | Performing | Address | City/State/Zipcode | Phone Number | | Organization | | | | + + + + + | [facility] | [address] | [place] [address] | [phone] | + + + + + CBC with Differential (05/02/2020 2:31 AM PDT) + + + + + + | Component | Value | Ref Range | Performed | Pathologist | | | | | At | Signature | + + + + + + | WBC | 20.35 (H) | 3.80 - 11.00 | [facility] | | | | | K/uL | LABORATORY | | + + + + + + | Red Blood | 3.91 (L) | 4.20 - 5.70 | [facility] | | | Cells | | M/uL | LABORATORY | | + + + + + + | Hemoglobin | 11.2 (L) | 13.2 - 17.0 | [facility] | | | | | g/dL | LABORATORY | | + + + + + + | Hematocrit | 34.9 (L) | 39.0 - 50.0 % | [facility] | | | | | | LABORATORY | | + + + + + + | MCV | 89.3 | 80.0 - 100.0 fl | [facility] [...] + + + + | RDW-SD | 51.8 | 37 - 53 fl | [facility] | | | | | | LABORATORY | | + + + + + + | Platelet | 374 | 150 - 400 K/uL | [facility] | | | Count | | | LABORATORY | | + + + + + + | MPV | 9.3Comment: NO NORMAL | fl | [facility] | | | | RANGE ESTABLISHED | | LABORATORY | | + + + + + + | Diff Type | MANUAL | | [facility] | | | | | | LABORATORY | | + + + + + + | % Segmented | 91 | % | [facility] | | | | | | LABORATORY | | | Neutrophils | | | | | + + + + + + | % Bands | 1 | % | [facility] | | | | | | LABORATORY | | + + + + + + | % | 3 | % | [facility] | | | Lymphocytes | | | LABORATORY | | + + + + + + | % Monocytes | 5 | % | [facility] | | | | | | LABORATORY | | + + + + + + | Neutrophils | 18.52 (H) | 1.90 - 7.40 | [facility] | | | , Absolute | | K/uL | LABORATORY | | + + + + + + | Absolute | 0.20 | 0.00 - 0.20 | [facility] | | | Band | | K/uL | LABORATORY | | | Neutrophils | | | | | + + + + + + | Absolute | 0.61 (L) | 1.00 - 3.90 | [facility] | | | Lymphocytes | | K/uL | LABORATORY | | + + + + + + | Absolute | 1.02 (H) | 0.00 - 0.80 | [facility] | | | Monocytes | | K/uL | LABORATORY | | + + + + + + | Platelet | ADEQUATE | | [facility] | | | Estimate | | | LABORATORY | | + + + + + + | RBC | RBC AND PLT MORPHOLOGY | | [facility] | | | Morphology | APPEAR NORMALComment: | | LABORATORY | | | | Testing performed at | | | | | | [facility] [place] [address] | | | | | | Bl;[place] [address] | | | | + + + + + + + + | Specimen | + + | Blood | + + + + + + + | Performing | Address | City/State/Zipcode | Phone Number | | Organization | | | | + + + + + | [facility] | [address] | [place] [address] | [phone] | + + + + + Basic Metabolic Panel (05/01/2020 5:05 AM PDT) + + + + + [...] + + + + | Cl | 108 | 99 - 109 mmol/L | [facility] | | | | | | LABORATORY | | + + + + + + | CO2 | 26 | 23 - 32 mmol/L | [facility] | | | | | | LABORATORY | | + + + + + + | Anion Gap | 9 | 5 - 20 mmol/L | [facility] | | | | | | LABORATORY | | + + + + + + | Glucose | 111 (H) | 65 - 99 mg/dL | [facility] | | | | | | LABORATORY | | + + + + + + | BUN | 17 | 8 - 25 mg/dL | [facility] | | | | | | LABORATORY | | + + + + + + | Creatinine | 0.80 | 0.70 - 1.30 | [facility] | | | | | mg/dL | LABORATORY | | + + + + + + | BUN/Creatin | 21 | | [facility] | | | ine Ratio | | | LABORATORY | | + + + + + + | Calcium | 8.7 | 8.5 - 10.5 | [facility] | | | | | mg/dL | LABORATORY | | + + + + + + | Estimated | >60Comment: GFR <60: | >60 | [facility] | | | GFR | CHRONIC KIDNEY [...] | | | | | | MDRD [facility] traceable | | | | | | equation.Testing | | | | | | performed at [facility], [address] | | | | | | [facility], | | | | | | [place] [address] | | | | + + + + + + + + | Specimen | + + | Blood | + + + + + + + | Performing | Address | City/State/Zipcode | Phone Number | | Organization | | | | + + + + + | [facility] | [address] | [place] [address] | [phone] | + + + + + CBC with Differential (05/01/2020 5:05 AM PDT) + + + + + + | Component | Value | Ref Range | Performed | Pathologist | | | | | At | Signature | + + + + + + | WBC | 22.16 (H) | 3.80 - 11.00 | [facility] | | | | | K/uL | LABORATORY | | + + + + + + | Red Blood | 3.84 (L) | 4.20 - 5.70 | [facility] | | | Cells | | M/uL | LABORATORY | | + + + + + + | Hemoglobin | 10.7 (L) | 13.2 - 17.0 | [facility] | | | | | g/dL | LABORATORY | | + + + + + + | Hematocrit | 33.7 (L) | 39.0 - 50.0 % | [facility] | | | | | | LABORATORY | | + + + + + + | MCV | 87.8 | 80.0 - 100.0 fl | [facility] [...] + + + + | RDW-SD | 51.8 | 37 - 53 fl | [facility] | | | | | | LABORATORY | | + + + + + + | Platelet | 309 | 150 - 400 K/uL | [facility] | | | Count | | | LABORATORY | | + + + + + + | MPV | 10.0Comment: NO NORMAL | fl | [facility] | | | | RANGE ESTABLISHED | | LABORATORY | | + + + + + + | Diff Type | MANUAL | | [facility] | | | | | | LABORATORY | | + + + + + + | % Segmented | 89 | % | [facility] | | | | | | LABORATORY | | | Neutrophils | | | | | + + + + + + | % Bands | 4 | % | [facility] | | | | | | LABORATORY | | + + + + + + | % | 1 | % | [facility] | | | Metamyelocy | | | LABORATORY | | | tracy | | | | | + + + + + + | % | 4 | % | [facility] | | | Lymphocytes | | | LABORATORY | | + + + + + + | % Monocytes | 2 | % | [facility] | | | | | | LABORATORY | | + + + + + + | Neutrophils | 19.72 (H) | 1.90 - 7.40 | [facility] | | | , Absolute | | K/uL | LABORATORY | | + + + + + + | Absolute | 0.89 (H) | 0.00 - 0.20 | [facility] | | | Band | | K/uL | LABORATORY | | | Neutrophils | | | | | + + + + + + | Absolute | 0.22 (H) | 0.00 K/uL | [facility] | | | Metamyelocy | | | LABORATORY | | | tracy | | | | | + + + + + + | Absolute | 0.89 (L) | 1.00 - 3.90 | [facility] | | | Lymphocytes | | K/uL | LABORATORY | | + + + + + + | Absolute | 0.44 | 0.00 - 0.80 | [facility] | | | Monocytes | | K/uL | LABORATORY | | + + + + + + | RBC | RBC AND PLT MORPHOLOGY | | [facility] | | | Morphology | APPEAR NORMALComment: | | LABORATORY | | | | Testing performed at | | | | | | [facility], [address] [facility] | | | | | | [place] | | | | | | [address] | | | | + + + + + + + + | Specimen | + + | Blood | + + + + + + + | Performing | Address | City/State/Zipcode | Phone Number | | Organization | | | | + + + + + | [facility] | [address] | [place] [address] | [phone] | + + + + + Phosphorus (04/30/2020 3:30 AM PDT) + + + + + + | Component | Value | Ref Range | Performed | Pathologist | | | | | At | Signature | + + + + + + | Phosphorus | 5.4 (H)Comment: Testing | 2.3 - 4.8 mg/dL | [facility] | | | | performed at [facility];[address] | | LABORATORY | | | | [address];[place], [place] | | | | | | [address] | | | | + + + + + + + + | Specimen | + + | Blood | + + + + + + + | Performing | Address | City/State/Zipcode | Phone Number | | Organization | | | | + + + + + | [facility] | [address] | [place] [address] | [phone] | + + + + + Magnesium (04/30/2020 3:30 AM PDT) + + + + + + | Component | Value | Ref Range | Performed | Pathologist | | | | | At | Signature | + + + + + + | Magnesium | 1.9Comment: Testing | 1.7 - 2.4 mg/dL | [facility] | | | | performed at [facility] | | LABORATORY | | | | [facility];[place], [place] | | | | | | [address] | | | | + + + + + + + + | Specimen | + + | Blood | + + + + + + + | Performing | Address | City/State/Zipcode | Phone Number | | Organization | | | | + + + + + | [facility] | [address] | [place] [address] | [phone] | + + + + + Comprehensive Metabolic Panel (04/30/2020 3:30 AM PDT) + + + + + + | Component | Value | Ref Range | Performed | Pathologist | | | | | At | Signature | + + + + + + | Na | 140 | 135 - 145 | [facility] | [...] + + + | Anion Gap | 11 | 5 - 20 mmol/L | [facility] | | | | | | LABORATORY | | + + + + + + | Glucose | 82 | 65 - 99 mg/dL | [facility] | | | | | | LABORATORY | | + + + + + + | BUN | 23 | 8 - 25 mg/dL | [facility] | | | | | | LABORATORY | | + + + + + + | Creatinine | 0.90 | 0.70 - 1.30 | [facility] | | | | | mg/dL | LABORATORY | | + + + + + + | BUN/Creatin | 26 | | [facility] | | | ine [...] + + | BILIRUBIN, | 0.3 | 0.1 - 1.5 mg/dL | [facility] | | | TOTAL | | | LABORATORY | | + + + + + + | ALK PHOS | 77 | 35 - 115 U/L | [facility] | | | | | | LABORATORY | | + + + + + + | AST | 19 | 10 - 45 U/L | [facility] | | | | | | LABORATORY | | + + + + + + | ALT | 49 | 10 - 65 U/L | [facility] [...] | | | | | | MDRD [facility] traceable | | | | | | equation.Testing | | | | | | performed at [facility] | | | | | | [facility];[place], [place] | | | | | | [address] | | | | + + + + + + + + | Specimen | + + | Blood | + + + + + + + | Performing | Address | City/State/Zipcode | Phone Number | | Organization | | | | + + + + + | [facility] | [address] [facility] | [place] [address] | [phone] | + + + + + CBC with Differential (04/30/2020 3:30 AM PDT) + + + + + + | Component | Value | Ref Range | Performed | Pathologist | | | | | At | Signature | + + + + + + | WBC | 12.57 (H) | 3.80 - 11.00 | [facility] | | | | | K/uL | LABORATORY | | + + + + + + | Red Blood | 3.58 (L) | 4.20 - 5.70 | [facility] | | | Cells | | M/uL | LABORATORY | | + + + + + + | Hemoglobin | 10.2 (L) | 13.2 - 17.0 | [facility] | | | | | g/dL | LABORATORY | | + + + + + + | Hematocrit | 32.3 (L) | 39.0 - 50.0 % | [facility] | | | | | | LABORATORY | | + + + + + + | MCV | 90.2 | 80.0 - 100.0 fl | [facility] | | | | | | LABORATORY | | + + + + + + | MCH | 28.5 | 27.0 - 34.0 pg | [facility] | | | | | | LABORATORY | | + + + + + + | MCHC | 31.6 (L) | 32.0 - 35.5 | [facility] | | | | | g/dL | LABORATORY | | + + + + + + | RDW-SD | 52.8 | 37 - 53 fl | [facility] | | | | | | LABORATORY | | + + + + + + | Platelet | 250 | 150 - 400 K/uL | [facility] | | | Count | | | LABORATORY | | + + + + + + | MPV | 9.5Comment: NO NORMAL | fl | [facility] | | | | RANGE ESTABLISHED | | LABORATORY | | + + + + + + | Diff Type | MANUAL | | [facility] | | | | | | LABORATORY | | + + + + + + | % Segmented | 59 | % | [facility] | | | | | | LABORATORY | | | Neutrophils | | | | | + + + + + + | % Bands | 6 | % | [facility] | | | | | | LABORATORY | | + + + + + + | % | 26 | % | [facility] | | | Lymphocytes | | | LABORATORY | | + + + + + + | % Monocytes | 8 | % | [facility] | | | | | | LABORATORY | | + + + + + + | Eosinophils | 1 | % | [facility] | | | % | | | LABORATORY | | + + + + + + | Neutrophils | 7.41 (H) | 1.90 - 7.40 | [facility] | | | , Absolute | | K/uL | LABORATORY | | + + + + + + | Absolute | 0.75 (H) | 0.00 - 0.20 | [facility] | | | Band | | K/uL | LABORATORY | | | Neutrophils | | | | | + + + + + + | Absolute | 3.27 | 1.00 - 3.90 | [facility] | | | Lymphocytes | | K/uL | LABORATORY | | + + + + + + | Absolute | 1.01 (H) | 0.00 - 0.80 | [facility] | | | Monocytes | | K/uL | LABORATORY | | + + + + + + | Eosinophils | 0.13 | 0.00 - 0.50 | [facility] | | | , Absolute | | K/uL | LABORATORY | | + + + + + + | Platelet | ADEQUATE | | [facility] | | | Estimate | | | LABORATORY | | + + + + + + | RBC | RBC AND PLT MORPHOLOGY | | [facility] | | | Morphology | APPEAR NORMALComment: | | LABORATORY | | | | Testing performed at | | | | | | [facility];[address] [place] [address] | | | | | | Blvd;[place] [address] | | | | + + + + + + + + | Specimen | + + | Blood | + + + + + + + | Performing | Address | City/State/Zipcode | Phone Number | | Organization | | | | + + + + + | [facility] | [address] | [place] [address] | [phone] | + + + + + documented in this encounter Visit Diagnoses + + | Diagnosis | + + | Diffuse large B-cell lymphoma of lymph nodes of multiple regions (HCC) - Primary | + + | Admission for chemotherapy | + + | Large B-cell lymphoma (HCC) Other malignant lymphomas, unspecified site, extranodal | | and solid organ sites | + + | Cervical lymphadenopathy Enlargement of lymph nodes | + + | Supraclavicular adenopathy Enlargement of lymph nodes | + + | Tobacco abuse Tobacco use disorder | + + documented in this encounter Administered Medications + +--------+ +--------+------+------+ | Medication Order | MAR | Action | Dose | Rate | Site | | | Action | Date | | | | + +--------+ +--------+------+------+ | acyclovir (ZOVIRAX) capsule 800 | Given | 05/04/20 | 800 mg | | | | mg 800 mg, Oral, 2 TIMES DAILY, | | 20 8:38 | | | | | First dose on Mon04/29/20 at | | AM PDT | | | | | 2100, Indications: HERPES ZOSTER | | | | | | | PREVENTION IN IMMUNOCOMPROMISED | | | | | | + +--------+ +--------+------+------+ +-------+ +--------+---+---+ | Given | 05/03/20 | 800 mg | | | | | 20 8:08 | | | | | | PM PDT | | | | +-------+ +--------+---+---+ | Given | 05/03/20 | 800 mg | | | | | 20 8:09 | | | | | | AM PDT | | | | +-------+ +--------+---+---+ + +---+ | | | + +---+ | albuterol 90 mcg/puff inhaler 2 | | | puff 2 puff, Inhalation, ONCE | | | PRN, Bronchospasm or hypoxemia, | | | Starting 05/04/20 at 0944, | | | Shake well. May repeat x 1., | | + +---+ [...] PRN, Sore | | | Throat, Starting [facility] 04/30/20 at | | | 1047 | | + +---+ | | | + +---+ + +---------+ + +-------+---+ | cyclophosphamide (CYTOXAN) | New Bag | 05/04/20 | 2,000 mg | 700 | | | 2,000 mg in sodium chloride 0.9% | | 20 3:57 | | mL/hr | | | 250 mL infusion 2,000 mg | | PM PDT | | | | | (rounded from 1,881 mg = 900 | | | | | | | mg/m2 | | | | | | | 2.09 m2 Treatment plan recorded | | | | | | | BSA), Intravenous, Administer | | | | | | | over 30 Minutes, ONCE, Mon | | | | | | | 05/04/20 at 1530, For 1 dose, | | [...] may repeat x1, | | | Starting 05/04/20 at 0944, | | | For 2 doses | | + +---+ | | | + +---+ + + + +---+ +---+ | DOXOrubicin (ADRIAMYCIN) 25 mg, | Rate/Dos | 05/01/20 | | 50 mL/hr | | | etoposide (VEPESID) 126 mg, | e | 20 12:56 | | | | | vinCRIStine (ONCOVIN) 0.84 mg in | Change-D | PM PDT | | | | | sodium chloride 0.9% 500 mL | ual Sign | | | | | | infusion 25 mg (rounded from | | | | | | | 25.08 mg = 12 mg/m2/day | | | | | | | 2.09 m2 Treatment plan recorded | | | | | | | BSA), Intravenous, Administer | | | | | | | over 24 Hours, EVERY 24 HOURS | | | | | | | INTERVAL, First dose on Fadia | | | | | | | 04/30/20 at 1400, For 1 dose, | | | | | | | Chemotherapy: Use appropriate | | | | | | | handling precautions. Vesicant. | | | | | | | Use non-DEHP tubing for | | | | | | | administration. Protect from | | | | | | | light. Start Day 1. Refill on | | | | | | | Days 2, 3, and 4. Disconnect on | | | | | | | Day 5., | | | | | | + + + +---+ +---+ + + +---+-------+---+ | Rate/Dose Verify-Dual Sign | 05/01/20 | | 22.9 | | | | 20 12:15 | | mL/hr | | | | PM PDT | | | | + + +---+-------+---+ | Restarted | 05/01/20 | | 22.9 | | | | 20 12:14 | | mL/hr | | | | PM PDT | | | | + + +---+-------+---+ +---+---+ | | | +---+---+ + + + +---+-------+---+ | DOXOrubicin (ADRIAMYCIN) 25 mg, | Restarte | 05/03/20 | | 21.7 | | | etoposide (VEPESID) 126 mg, | d | 20 11:12 | | mL/hr | | | vinCRIStine (ONCOVIN) 0.84 mg in | | AM PDT | | | | | sodium chloride 0.9% 500 mL | | | | | | | infusion 25 mg (rounded from | | | | | | | 25.08 mg = 12 mg/m2/day | | | | | | | 2.09 m2 Treatment plan recorded | | | | | | | BSA), Intravenous, Administer | | | | | | | over 24 Hours, EVERY 24 HOURS | | | | | | | INTERVAL, First dose on Sat | | | | | | | 05/02/20 at 1500, For 1 dose, | | [...] | + + + +---+-------+---+ + + +---+ +---+ | Rate/Dose Verify-Dual Sign | 05/03/20 | | 25 mL/hr | | | | 20 7:04 | | | | | | AM PDT | | | | + + +---+ +---+ | Rate/Dose Verify-Dual Sign | 05/02/20 | | 25 mL/hr | | | | 20 7:08 | | | | | | PM PDT | | | | + + +---+ +---+ +---+---+ | | | +---+---+ + + + +---+ +---+ | DOXOrubicin (ADRIAMYCIN) 25 mg, | Rate/Dos | 05/04/20 | | 25 mL/hr | | | etoposide (VEPESID) 126 mg, | e | 20 7:43 | | | | | vinCRIStine (ONCOVIN) 0.84 mg in | Verify-D | AM PDT | | | | | sodium chloride 0.9% 500 mL | ual Sign | | | | | | infusion 25 mg (rounded from | | | | | | | 25.08 mg = 12 mg/m2/day | | | | | | | 2.09 m2 Treatment plan recorded | | | | | | | BSA), Intravenous, Administer | | | | | | | over 24 Hours, EVERY 24 HOURS | | | | | | | INTERVAL, First dose on Sun | | | | | | | 05/03/20 at 1500, For 1 dose, | | [...] + + + +---+ +---+ + + +-------+ +---+ | Rate/Dose Verify-Dual Sign | 05/03/20 | | 25 mL/hr | | | | 20 7:15 | | | | | | PM PDT | | | | + + +-------+ +---+ | New Bag | 05/03/20 | 25 mg | 21.7 | | | | 20 3:24 | | mL/hr | | | | PM PDT | | | | + + +-------+ +---+ +---+---+ | | | +---+---+ + + + +---+ +---+ | DOXOrubicin (ADRIAMYCIN) 25 mg, | Restarte | 05/02/20 | | 28 mL/hr | | | etoposide (VEPESID) 126 mg, | d | 20 1:53 | | | | | vinCRIStine (ONCOVIN) 0.84 mg in | | AM PDT | | | | | sodium chloride 0.9% 500 mL | | | | | | | infusion 25 mg (rounded from | | | | | | | 25.08 mg = 12 mg/m2/day | | | | | | | 2.09 m2), Intravenous, | | | | | | | Administer over 24 Hours, EVERY | | | | | | | 24 HOURS INTERVAL, First dose | | | | | | | (after last modification) on Mon | | | | | | | 05/01/20 at 1500, For 1 dose, | | [...] + + + +---+ +---+ + + +-------+ +---+ | Rate/Dose Verify-Dual Sign | 05/01/20 | | 24 mL/hr | | | | 20 7:18 | | | | | | PM PDT | | | | + + +-------+ +---+ | New Bag | 05/01/20 | 25 mg | 24 mL/hr | | | | 20 3:12 | | | | | | PM PDT | | | | + + +-------+ +---+ + +---+ | | | + +---+ | EPINEPHrine 1 mg/mL injection | | | 0.3 mg 0.3 mg, Intramuscular, | | | EVERY 5 MIN PRN, Anaphylaxis, | | | Starting 05/04/20 at 0944, For | | | 3 doses, Administer [...] reaction or | | | anaphylaxis., Starting Mon | | | 05/04/20 at 0944, Dilute 2 mL of | | | famotidine with 8 mL of normal | | | saline to a final concentration | | | of 2 mg/mL. Administer ordered | | | dose over a period of at least 2 | | | minutes., | | + +---+ | | | + +---+ + +---------+ +--------+-------+---+ | fosaprepitant (EMEND) 150 mg in | New Bag | 04/30/20 | 150 mg | 750 | | | sodium chloride 0.9% 250 mL IVPB | | 20 2:33 | | mL/hr | | | 150 mg, Intravenous, Administer | | PM PDT | | | | | over 20 Minutes, ONCE, Fadia | | | | | | | 04/30/20 at 1330, For 1 dose, Do | | | | | | | not shake bag., | | | | | | + +---------+ +--------+-------+---+ +---+---+ | | | +---+---+ + +---------+ +--------+-------+---+ | fosaprepitant (EMEND) 150 mg in | New Bag | 05/03/20 | 150 mg | 750 | | | sodium chloride 0.9% 250 mL IVPB | | 20 3:14 | | mL/hr | | | 150 mg, Intravenous, Administer | | PM PDT | | | | | over 20 Minutes, ONCE, Sun | | | | | | | 05/03/20 at 1430, For 1 dose, Do | | | | | | | not shake bag., | | | | | | + +---------+ +--------+-------+---+ +---+---+ | | | +---+---+ + +-------+ +-------+---+---+ | heparin 100 units/mL flush | Given | 05/04/20 | 500 | | | | injection 500 Units 500 Units (5 | | 20 5:43 | Units | | | | mL), Intracatheter, PRN, Line | | PM PDT | | | | | Care, Starting Mon05/04/20 at | | | | | | | 0944 | | | | | | + +-------+ +-------+---+---+ + +---+ | | | + +---+ | heparin 100 units/mL flush | | | injection 500 Units 500 Units (5 | | | mL), Intracatheter, PRN, Line | | | Care, Starting Mon05/04/20 at | | | 0944 | | + +---+ | | | + +---+ + +-------+ +--------+---+---+ | LORazepam (ATIVAN) 2 mg/mL | Given | 05/02/20 | 0.5 mg | | | | injection 0.5 mg 0.5 mg, | | 20 2:24 | | | | | Intravenous, EVERY 6 HOURS PRN, | | AM PDT | | | | | nausea, Starting 05/01/20 at | | | | | | | 1205, If zofran and compazine | | | | | | | ineffective., | | | | | | + +-------+ +--------+---+---+ +-------+ +--------+---+---+ | Given | 05/01/20 | 0.5 mg | | | | | 20 6:01 | | | | | | PM PDT | | | | +-------+ +--------+---+---+ + +---+ | | | + +---+ | methylPREDNISolone sodium | | | succinate (solu-MEDROL) 62.5 | | | mg/mL injection 125 mg 125 mg, | | | Intravenous, ONCE PRN, Infusion | | | reaction, Starting 05/04/20 at | | | 0944, For 1 dose, Mix with 2 mL | | | provided diluent to make 62.5 | | | mg/mL., | | + +---+ | | | + +---+ + +-------+ +------+---+---+ | ondansetron (ZOFRAN ODT) | Given | 05/03/20 | 4 mg | | | | disintegrating tablet 4 mg 4 mg, | | 20 12:29 | | | | | Oral, EVERY 6 HOURS PRN, Nausea, | | PM PDT | | | | | Vomiting, Starting Mon04/29/20 | | | | | | | at 2030, First line agent, | | | | | | + +-------+ +------+---+---+ +-------+ +------+---+---+ | Given | 05/01/20 | 4 mg | | | | | 20 9:55 | | | | | | AM PDT | | | | +-------+ +------+---+---+ +---+---+ | | | +---+---+ + +-------+ +------+---+---+ | ondansetron (ZOFRAN) injection | Given | 05/04/20 | 4 mg | | | | 4 mg 4 mg, Intravenous, EVERY 6 | | 20 3:23 | | | | | HOURS PRN, Nausea, Vomiting, | | AM PDT | | | | | Starting 04/29/20 at 2030, | | | | | | | First line agent, | | | | | | + +-------+ +------+---+---+ +---+---+ | | | +---+---+ + +---------+ +------+-------+---+ | ondansetron 8 mg, dexamethasone | New Bag | 05/01/20 | 8 mg | 220 | | | (DECADRON) 10 mg in sodium | | 20 2:47 | | mL/hr | | | chloride 0.9% 50 mL IVPB 8 mg, | | PM PDT | | | | | Intravenous, Administer over 15 | | | | | | | Minutes, ONCE, 05/01/20 at | | | | | | | 1445, For 1 dose | | | | | | + +---------+ +------+-------+---+ +---+---+ | | | +---+---+ + +---------+ +---------+--------+---+ | palonosetron (ALOXI) 0.25 mg, | New Bag | 04/30/20 | 0.25 mg | 424.8 | | | dexamethasone (DECADRON) 12 mg in | | 20 1:50 | | mL/hr | | | sodium chloride 0.9% 100 mL IVPB | | PM PDT | | | | | 0.25 mg, Intravenous, | | | | | | | Administer over 15 Minutes, ONCE, | | | | | | | [facility] 04/30/20 at 1330, For 1 dose, | | | | | | | Administer 30 minutes prior to | | | | | | | chemotherapy., | | | | | | + +---------+ +---------+--------+---+ +---+---+ | | | +---+---+ + +---------+ +---------+--------+---+ | palonosetron (ALOXI) 0.25 mg, | New Bag | 05/03/20 | 0.25 mg | 223.2 | | | dexamethasone (DECADRON) 8 mg in | | 20 3:11 | | mL/hr | | | sodium chloride 0.9% 50 mL IVPB | | PM PDT | | | | | 0.25 mg, Intravenous, Administer | | | | | | | over 15 Minutes, ONCE, Sun | | | | | | | 05/03/20 at 1430, For 1 dose | | | | | | + +---------+ +---------+--------+---+ +---+---+ | | | +---+---+ + +-------+ +-------+---+---+ | pantoprazole (PROTONIX) DR | Given | 05/04/20 | 40 mg | | | | tablet 40 mg 40 mg, Oral, DAILY | | 20 5:18 | | | | | BEFORE BREAKFAST, First dose on | | AM PDT | | | | | 05/01/20 at 0730, For 5 doses, | | | | | | | Do not cut or crush., | | | | | | | Indication: Gastric | | | | | | | hypersecretion | | | | | | + +-------+ +-------+---+---+ +-------+ +-------+---+---+ | Given | 05/03/20 | 40 mg | | | | | 20 8:09 | | | | | | AM PDT | | | | +-------+ +-------+---+---+ | Given | 05/02/20 | 40 mg | | | | | 20 7:58 | | | | | | AM PDT | | | | +-------+ +-------+---+---+ +---+---+ | | | +---+---+ + +-------+ +--------+---+---+ | predniSONE (DELTASONE) tablet | Given | 05/04/20 | 120 mg | | | | 120 mg 120 mg, Oral, DAILY, | | 20 8:38 | | | | | First dose on Fadia 04/30/20 at | | AM PDT | | | | | 1030, For 5 doses | | | | | | + +-------+ +--------+---+---+ +-------+ +--------+---+---+ | Given | 05/03/20 | 120 mg | | | | | 20 8:09 | | | | | | AM PDT | | | | +-------+ +--------+---+---+ | Given | 05/02/20 | 120 mg | | | | | 20 8:01 | | | | | | AM PDT | | | | +-------+ +--------+---+---+ +---+---+ | | | +---+---+ + +-------+ +-------+---+---+ | prochlorperazine (COMPAZINE) | Given | 05/04/20 | 10 mg | | | | injection 10 mg 10 mg, | | 20 11:24 | | | | | Intravenous, EVERY 6 HOURS PRN, | | AM PDT | | | | | Nausea, Vomiting, If zofran | | | | | | | ineffective, Starting 05/01/20 | | | | | | | at 1205 | | | | | | + +-------+ +-------+---+---+ +-------+ +-------+---+---+ | Given | 05/04/20 | 10 mg | | | | | 20 5:18 | | | | | | AM PDT | | | | +-------+ +-------+---+---+ | Given | 05/03/20 | 10 mg | | | | | 20 3:18 | | | | | | PM PDT | | | | +-------+ +-------+---+---+ + +---+ | | | + +---+ | sodium chloride 0.9% (NS) bolus | | | 250 mL 250 mL, Intravenous, | | | PRN, Flush before and after IV | | | medication(s) and as needed with | | | NS, Starting 05/04/20 at 0944 | | + +---+ | | | + +---+ + +---------+ +---------+-------+---+ | sodium chloride 0.9% (NS) bolus | New Bag | 05/04/20 | 500 mLs | 500 | | | 500 mL 500 mL, Intravenous, | | 20 2:54 | | mL/hr | | | Administer over 1 Hours, ONCE, | | PM PDT | | | | | 05/04/20 at 1430, For 1 dose, | | | | | | | Administer 500 mL NS before | | | | | | | cyclophosphamide administration., | | | | | | | | | | | | | + +---------+ +---------+-------+---+ +---+---+ | | | +---+---+ + +---------+ +---------+-------+---+ | sodium chloride 0.9% (NS) bolus | New Bag | 05/04/20 | 500 mLs | 500 | | | 500 mL 500 mL, Intravenous, | | 20 4:02 | | mL/hr | | | Administer over 1 Hours, ONCE, | | PM PDT | | | | | 05/04/20 at 1600, For 1 dose, | | | | | | | Administer 500 mL NS after | | | | | | | cyclophosphamide administration., | | | | | | | | | | | | | + +---------+ +---------+-------+---+ + +---+ | | | + +---+ | sodium chloride 0.9% (NS) | | | infusion 500 mL at 500 mL/hr, | | | Intravenous, PRN, Moderate | | | reacton or anaphylaxis., Starting | | | 05/04/20 at 0944, Run wide | | | open to gravity., | | + +---+ | | | + +---+ + +---------+ +---+-------+---+ | sodium chloride 0.9% (NS) | New Bag | 05/04/20 | | 100 | | | infusion at 100 mL/hr, | | 20 3:14 | | mL/hr | | | Intravenous, CONTINUOUS, Starting | | AM PDT | | | | | 04/29/20 at 2100 | | | | | | + +---------+ +---+-------+---+ +---------+ +---+-------+---+ | New Bag | 05/03/20 | | 100 | | | | 20 3:35 | | mL/hr | | | | PM PDT | | | | +---------+ +---+-------+---+ | New Bag | 05/03/20 | | 100 | | | | 20 4:05 | | mL/hr | | | | AM PDT | | | | +---------+ +---+-------+---+ + +---+ | | | + +---+ | sodium chloride 0.9% flush 10 | | | mL 10 mL, Intracatheter, PRN, | | | Line Care, Starting 05/04/20 | | | at 0944 | | + +---+ | | | + +---+ | sodium chloride 0.9% flush 10 | | | mL 10 mL, Intracatheter, PRN, | | | Line Care, Starting 05/04/20 | | | at 0944 | | + +---+ | | | + +---+ documented in this encounter
--- OUTSIDE RECORDS SUMMARY | ~2020-06-23 | XMS | Encounter Summary ---
Demographics + + + | Address | [address] | | | [place] [address] | + + + | Home Phone | | + + + | Preferred Language | Unknown | + + + | Marital Status | Single | + + + | Mosque Affiliation | Unknown | + + + | Race | White | + + + | Ethnic Group | Not or | + + + Author + + + | Author | [facility] | | | and [place] | + + + | Organization | [facility] | | [...] Team Providers + +------+ + | Care Children'S Choir Director Name | Role | Phone | [...] | of multiple | [place], | [place] [address] | | | | | regions | [place] [address] | Phone: | | | | | (HCC) | Phone: | [phone] | | | | | Procedures | [phone] | Fax: | | | | | OR | Fax: | [phone] | | | | | VINCRISTINE | [phone] | | | | | | SULFATE 1 MG | | | | | | | INJ OR | | | | | | | DOXORUBICIN | | | | | | | HCL | | | | | | | INJECTION, | | | | | | | 10 MG OR | | | | | | | CYCLOPHOSPHA | | | | | | | MIDE 100 MG | | | | | | | INJ OR | | | | | | | ETOPOSIDE | | | | | | | INJECTION, | | | | | | | 10 MG OR | | | | | | | PALONOSETRON | | | | | | | HCL, 25 MCG | | | | | | | OR | | | | | | | INJECTION, | | | | | | | UDENYCA 0.5 | | | | | | | MG OR INJ | | | | | | | TRUXIMA 10 | | | | | | | MG Q5115 - | | | | | | | OR INJ | | | | | | | TRUXIMA 10 | | | | | | | MG- | | | | | | | RITUXIMAB-ab | | | | | | | bs [id number] - | | | | | | | OR | | | | | | | VINCRISTINE | | | | | | | SULFATE 1 MG | | | | | | | INJ J9000 | | | | | | | - OR | | | | | | | DOXORUBICIN | | | | | | | HCL | | | | | | | INJECTION, | | | | | | | 10 MG- DOXO | | | | | | | [id number] - OR | | | | | | | | | | | | | | CYCLOPHOSPHA | | | | | | | MIDE 100 MG | | | | | | | INJ- CYTOXAN | | | | | | | [id number] - | | | | | | | OR ETOPOSIDE | | | | | | | INJECTION, | | | | | | | 10 MG Q5111 | | | | | | | - OR | | | | | | | INJECTION, | | | | | | | UDENYCA 0.5 | | | | | | | MG [id number] - | | | | | | | OR | | | | | | | [...] + + | 06/08/ | Hospital | [facility] | Wilton Jeff MD | 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 | | | | | [...] | | | | | | | ([place] MOUTHWASH) | | | | | | [...] documented as of this encounter Progress Notes Lizbet Rios RN - 06/08/2020 11:00 AM PDTPatient here for D0C4 Truxima. Labs revie wed and pt cleared for treatment. Pt orders/protocol verified. Height, Weight, and BSA check ed. Doses verified with second RN (Monica) prior to releasing orders to pharmacy. Drug (s) checked for accurate color, clarity and presence of precipitate. Patient was given calend ar and all questions answered. Triage, Tina, scheduling admission for 06/10/20 for inpatient chemotherapy. Distress screening tool complete. Pt denies any concerns at this time. documented in thi s encounter Plan of [...] [place] | | | | | | [address] | | | | | | | | +--------+ + + + + | 06/29/ | Office | Oncology | Wilton Jeff MD | | | 2019 | Visit | | [address] | | | | | | [place] | | | | | | [address] | | | | | | | | | | | | Marilou Mcmullen, | | | | | | VP CARE MANAGEMENT [address] | | | | | [address] | | | | | | [place] [address] | | | | | | [phone] | | | | | | | | +--------+ + + + + | 06/29/ | Appointment | Infusion Therapy | Wilton Jeff MD | | | 2019 | | | [address] | | | | | | [place] | | | | | | [address] | | | | | | | | +--------+ + + + + | 07/14/ | Office | Otolaryngology | She Huang | | | 2019 | Visit | | DO Sophia Canela | | | | | | [address] | | | | | | [place] [address] | | | | | | [phone] | | | | | | | | +--------+ + + + + | 07/20/ | Appointment | Infusion Therapy | Wilton Jeff MD | | | 2019 | | | [address] | | | | | | [place] | | | | | | [address] | | | | | | | | +--------+ + + + + | 07/20/ | Office | Oncology | Wilton Jeff MD | | | 2019 | Visit | | [address] | | | | | | [place] | | | | | | [address] | | | | | | | | +--------+ + + + + | 11/16/ | Appointment | Infusion Therapy | Wilton Jeff MD | | | 2019 | | | [address] | | | | | | [place] | | | | | | [address] | | | | | | | | +--------+ + + + + | 08/17/ | Appointment | Infusion Therapy | Wilton Jeff MD | | | 2019 | | | [address] | | | | | | [place] | | | | | | [address] | | | | | | | | +--------+ + + + + | 08/17/ | Office | Oncology | Wilton Jeff MD | | | 2019 | Visit | | [address] | | | | | | [place] | | | | | | [address] | | | | | | | [...] | acetaminophen (TYLENOL) tablet | Given | 06/08/20 | 650 mg | | | | 650 mg 650 mg, Oral, ONCE, Mon | | 20 11:09 | | | | | 10/5/20 at 1115, For 1 dose, Give | | AM PDT | | | | | 30 minutes prior to riTUXimab., | | | | | | + +--------+ +--------+------+------+ +---+---+ | | | +---+---+ + +---------+ +-------+-------+---+ | diphenhydrAMINE (BENADRYL) 50 | New Bag | 06/08/20 | 50 mg | 204 | | | mg in sodium chloride 0.9% 50 mL | | 20 11:29 | | mL/hr | | | IVPB 50 mg, Intravenous, | | AM PDT | | | | | Administer over 15 Minutes, ONCE, | | | | | | | 06/08/20 at 1115, For 1 dose | | | | | | + +---------+ +-------+-------+---+ +---+---+ | | | +---+---+ + +---------+ +-------+---+---+ | famotidine (PEPCID) 20-0.9 | New Bag | 06/08/20 | 20 mg | | | | MG/50ML-% IVPB 20 mg 20 mg, | | 20 11:10 | | | | | Intravenous, Administer over 30 | | AM PDT | | | | | Minutes, ONCE, 06/08/20 at | | | | | | | 1115, For 1 dose | | | | | | + +---------+ +-------+---+---+ +---+---+ | | | +---+---+ + +-------+ +-------+---+---+ | heparin 100 units/mL flush | Given | 06/08/20 | 500 | | | | injection 500 Units 500 Units (5 | | 20 1:50 | Units | | | | mL), Intracatheter, PRN, Line | | PM PDT | | | | | Care, Starting 06/08/20 at | | | | | | | 1058 | | | | | | + +-------+ +-------+---+---+ +---+---+ | | | +---+---+ + +---------+ +--------+-------+---+ | riTUXimab-abbs (TRUXIMA) 800 mg | New Bag | 06/08/20 | 800 mg | 232 | | | in sodium chloride 0.9% 580 mL | | 20 12:06 | | mL/hr | | | infusion 800 mg (rounded from | | PM PDT | | | | | 843.75 mg = 375 mg/m2 | | | | | | | 2.25 m2 Treatment plan recorded | | | | | | | BSA), Intravenous, ONCE, Mon | | | | | | | 06/08/20 at 1115, For 1 dose, | | | | [...] | | | | over 60 minutes. [id number] Bag | | | | | | [...] 0.9% (NS) bolus | New Bag | 06/08/20 | 250 mLs | 30 mL/hr | | | 250 mL 250 mL, Intravenous, | | 20 11:07 | | | | | PRN, Flush before and after IV | | AM PDT | | | | | medication(s) and as needed with | | | | | | | NS, Starting 06/08/20 at 1058 | | | | | | + +---------+ +---------+ +---+ +---+---+ | | | +---+---+ + +-------+ +--------+---+---+ | sodium chloride 0.9% flush 10 | Given | 06/08/20 | 10 mLs | | | | mL 10 mL, Intracatheter, PRN, | | 20 1:50 | | | | | Line Care, Starting 06/08/20 | | PM PDT | | | | | at 1058 | | | | | | + +-------+ +--------+---+---+ +---+---+ | | | +---+---+ documented in this encounter"
--- OUTSIDE RECORDS SUMMARY | ~2020-06-23 | XMS | Encounter Summary ---
Demographics + + + | Address | [address] | | | [place] [address] | + + + | Home Phone [...] Author + + + | Author | [facility] | | | and [place] | + + + | Organization | [facility] | [...] Team Providers + +------+ + | Care Government Relations Analyst Name | Role | Phone | + [...] | of multiple | [place], | [place] [address] | | | | | regions | [place] [address] | Phone: | | | | | (HCC) | Phone: | [phone] | | | | | Procedures | [phone] | Fax: | | | | | [place] | Fax: | [phone] | | | | | VINCRISTINE | [phone] | | | | | | SULFATE 1 MG | | | | | | | INJ CO | | | | | | | DOXORUBICIN | | | | | | | HCL | | | | | | | INJECTION, | | | | | | | 10 MG CO | | | | | | | CYCLOPHOSPHA | | | | | | | MIDE 100 MG | | | | | | | INJ CO | | | | | | | ETOPOSIDE | | | | | | | INJECTION, | | | | | | | 10 MG CO | | | | | | | PALONOSETRON | | | | | | | HCL, 25 MCG | | | | | | | CO | | | | | | | INJECTION, | | | | | | | UDENYCA 0.5 | | | | | | | MG CO INJ | | | | | | | TRUXIMA 10 | | | | | | | MG Q5115 - | | | | | | | CO INJ | | | | | | | TRUXIMA 10 | | | | | | | MG- | | | | | | | RITUXIMAB-ab | | | | | | | bs [id number] - | | | | | | | CO | | | | | | | VINCRISTINE | | | | | | | SULFATE 1 MG | | | | | | | INJ J9000 | | | | | | | - CO | | | | | | | DOXORUBICIN | | | | | | | HCL | | | | | | | INJECTION, | | | | | | | 10 MG- DOXO | | | | | | | J9070 - CO | | | | | | | | | | | | | | CYCLOPHOSPHA | | | | | | | MIDE 100 MG | | | | | | | INJ- CYTOXAN | | | | | | | [id number] - | | | | | | | CO ETOPOSIDE | | | | | | | INJECTION, | | | | | | | 10 MG Q5111 | | | | | | | - CO | | | | | | | INJECTION, | | | | | | | UDENYCA 0.5 | | | | | | | MG J2469 - | | | | | | | CO | | | | | | | [...] + + | 04/06/ | Hospital | [facility] | Wilton Jeff MD | 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 CHEMOTHERAPY EDUCATION Chemotherapy Drugs: JUKE BOX MECHANIC-16, Vincristine, Doxorubicin, cytoxan, prednisone and neulasta Chemotherapy [...] for 6 cycles. Physician: Dr. Jeff Chemotherapy French Pastry Cook: Kaylee Ash Triage Nurse Hours: Monday-Monday 8 [...] can cause mouth irritation or sores. ? [place] your teeth after every meal and at [...] the BRAT diet (Bananas, Rice, Applesauce, and Elliott). You may use a Sitzbath, or D [...] Wigs and scarves are available at the [facility] free of charge ? Avoid [...] 12. WEB Sites for Cancer Patients: a. [employer] www.cancer.org b. National Cancer [place] www.cancer.gov (ebooks available on website) c. Chemocare [...] provider to get one. Talk to your consumer lender regarding the use of this medicine in children. While this drug m ay be prescribed for selected conditions, precautions do apply. What side effects may I notice from receiving this medicine? Side effects that you should report to your doctor or health home visit field care manager as soon as p ossible: allergic reactions [...] attention (report to your doctor or health home visit field care manager if they continue or are bothersome): bone [...] your dose. Call your doctor or health home visit field care manager if you miss your dose. If you [...] pharmacist, or health care provider. Copyright 2020 [employer] Prednisone tablets Brand Names: Deltasone, Predone, Sterapred, [...] avoid any side effects. Talk to your consumer lender regarding the use of this medicine in children. Special care may be needed. What side effects may I notice from receiving this medicine? Side effects that you should report to your doctor or health home visit field care manager as soon as p ossible: allergic reactions [...] attention (report to your doctor or health home visit field care manager if they continue or are bothersome): confusion, [...] ta lk to your doctor or health home visit field care manager. You may need to miss a dose [...] if you have any of these conditions: Richfield's syndrome diabetes glaucoma heart disease high blood [...] this medicine? Visit your doctor or health home visit field care manager for regular checks on your progress. If [...] have surgery, tell your doctor or health home visit field care manager that you hav e taken this medicine within the last twelve months. Ask your doctor or health home visit field care manager about your diet. You may need to [...] pharmacist, or health care provider. Copyright 2020 [employer] Cyclophosphamide injection Brand Names: Cytoxan, Neosar What [...] or clinic by a specially trained health home visit field care manager . Talk to your consumer lender regarding the use of this medicine in children. Special care may be needed. What side effects may I notice from receiving this medicine? Side effects that you should report to your doctor or health home visit field care manager as soon as p ossible: allergic reactions [...] attention (report to your doctor or health home visit field care manager if they continue or are bothersome): changes [...] your dose. Call your doctor or health home visit field care manager if you are unable to keep an [...] their use. Call your doctor or health home visit field care manager for advice if you get a fever, [...] ould talk with your doctor or health home visit field care manager if you are concerned about your ferti lity. If you are going to have surgery, tell your doctor or health home visit field care manager that you hav e taken this medicine. NOTE:This sheet is a summary. It may not cover all possible information. If you have questi ons about this medicine, talk to your doctor, pharmacist, or health care provider. Copyright 2020 [employer] Doxorubicin injection Brand Names: Adriamycin, Adriamycin PFS [...] clinic b y a specially trained health home visit field care manager. If you have pain, swelling, burning or any u nusual feeling around the site of your injection, tell your health home visit field care manager right a way. Talk to your consumer lender regarding the use of this medicine in children. Special care may be needed. What side effects may I notice from receiving this medicine? Side effects that you should report to your doctor or health home visit field care manager as soon as p ossible: allergic reactions [...] attention (report to your doctor or health home visit field care manager if they continue or are bothersome): diarrhea hair loss mouth sores nail discoloration or damage nausea red colored urine vomiting What may interact with this medicine? This medicine may interact with the following medications: 6-mercaptopurine paclitaxel phenytoin St. Ann's Wort trastuzumab verapamil What if I miss a dose? It is important not to miss your dose. Call your doctor or health home visit field care manager if you are unable to keep an [...] their use. Call your doctor or health home visit field care manager for advice if you get a fever, [...] an unborn child. Talk to your health home visit field care manager or pharmacist for more information. Do not breast-feed an infant while taking t his medicine. This medicine has caused ovarian failure in some women and reduced sperm counts in some men This medicine may interfere with the ability to have a child. Talk with your doctor or [facility] visit field care manager if you are concerned about your fertility. NOTE:This sheet is a summary. It may not cover all possible information. If you have questi ons about this medicine, talk to your doctor, pharmacist, or health care provider. Copyright 2020 [employer] Vincristine injection Brand Names: Oncovin, Vincasar PFS [...] clinic b y a specially trained health home visit field care manager. If you have pain, swelling, burning, or any unusual feeling around the site of your injection, tell your health home visit field care manager right away. Talk to your consumer lender regarding the use of this medicine in children. While this drug m ay be prescribed for selected conditions, precautions do apply. What side effects may I notice from receiving this medicine? Side effects that you should report to your doctor or health home visit field care manager as soon as p ossible: allergic reactions [...] attention (report to your doctor or health home visit field care manager if they continue or are bothersome): diarrhea [...] ddC Talk to your doctor or health home visit field care manager before taking any of these medicines: acetaminophen aspirin ibuprofen ketoprofen naproxen What if I miss a dose? It is important not to miss your dose. Call your doctor or health home visit field care manager if you are unable to keep an [...] disease lung disease nervous system disease like Ohnrzuh-Zdepr-Gvwtm (CMT) recent or ongoing radiation therapy an [...] their use. Call your doctor or health home visit field care manager for advice if you get a fever, [...] an unborn child. Talk to your health home visit field care manager or pharmacist for more information. Do not [...] pharmacist, or health care provider. Copyright 2020 [employer] Etoposide, JUKE BOX MECHANIC-16 injection Brand Names: Etopophos, Toposar, VePesid What is this medicine? ETOPOSIDE, JUKE BOX MECHANIC-16 (e toe SRINATH side) is a chemotherapy drug. It is used to treat testicular ca ncer, lung cancer, and other cancers. How should I use this medicine? This medicine is for infusion into a vein. It is administered in a hospital or clinic by a specially trained health home visit field care manager. Talk to your consumer lender regarding the use of this medicine in children. Special care may be needed. What side effects may I notice from receiving this medicine? Side effects that you should report to your doctor or health home visit field care manager as soon as p ossible: allergic reactions [...] attention (report to your doctor or health home visit field care manager if they continue or are bothersome): diarrhea hair loss loss of appetite nausea stomach pain What may interact with this medicine? aspirin certain medications for seizures like carbamazepine, phenobarbital, phenytoin, valproic acid cyclosporine levamisole warfarin What if I miss a dose? It is important not to miss your dose. Call your doctor or health home visit field care manager if you are unable to keep an [...] their use. Call your doctor or health home visit field care manager for advice if you get a fever, [...] unborn child. T alk to your health home visit field care manager or pharmacist for more information. Do not [...] pharmacist, or health care provider. Copyright 2020 [employer] documented in this encounter Medications at Time [...] chemotherapy.. | | | | | | ([facility]) | | | | | | [...] | | | | | ([facility]) | | | | | | [...] | | | | | ([facility]) | | | | | | [...] consented fo r tx. Will go to [facility] for Cycle#1 day1-5 EPOCH. Scheduled here for [...] printed materials on the following drugs: Rituxan, JUKE BOX MECHANIC-16, Vincristine, Doxorubi josselyn, Cytoxan, Prednisone and Neulasta. [...] reviewed with patient. Phone numbers for the pharmaceutical scientist, chemotherapy puddler helper, and after hours number provided to patient. [...] for any concerns or questions. Discharged to [facility] with copy of labs and calendar for next appointment. NEXT APPOINTMENT: [facility] Monday for chemo admission. documented in this [...] [place] | | | | | | [address] | | | | | | | | +--------+ + + + + | 06/29/ | Office | Oncology | Wilton Jeff MD | | | 2019 | Visit | | [address] | | | | | | [place] | | | | | | [address] | | | | | | | | | | | | Marilou Mcmullen, | | | | | | TECHNICAL SUPPORT INTERN [address] | | | | [address] | | | | | | [place] [address] | | | | | | [phone] | | | | | | | | +--------+ + + + + | 06/29/ | Appointment | Infusion Therapy | Wilton Jeff MD | | | 2019 | | | [address] | | | | | | [place] | | | | | | [address] | | | | | | | | +--------+ + + + + | 07/14/ | Office | Otolaryngology | She Huang | | | 2019 | Visit | | DO Sophia Canela | | | | | | [address] [place] [address] | | | | | | [place] [address] | | | | | | [phone] | | | | | | | | +--------+ + + + + | 07/20/ | Appointment | Infusion Therapy | Wilton Jeff MD | | | 2019 | | | [address] | | | | | | [place] | | | | | | [address] | | | | | | | | +--------+ + + + + | 07/20/ | Office | Oncology | Wilton Jeff MD | | | 2019 | Visit | | [address] | | | | | | [place] | | | | | | [address] | | | | | | | | +--------+ + + + + | 07/20/ | Appointment | Infusion Therapy | Wilton Jeff MD | | | 2019 | | | [address] | | | | | | [place] | | | | | | [address] | | | | | | | | +--------+ + + + + | 08/17/ | Appointment | Infusion Therapy | Wilton Jeff MD | | | 2019 | | | [address] | | | | | | [place] | | | | | | [address] | | | | | | | | +--------+ + + + + | 08/17/ | Office | Oncology | Wilton Jeff MD | | | 2019 | Visit | | [address] | | | | | | [place] | | | | | | [address] | | | | | | | [...] | | | | over 60 minutes. [id number] Bag | | | | | | [...]
--- OUTSIDE RECORDS SUMMARY | ~2020-06-23 | XMS | Encounter Summary ---
Demographics + + + | Address | [address] | | [place] [address] | + + + | Home Phone [...] Team Providers + +------+ + | Care Lead Application Architect Name | Role | Phone | + [...] | | | | regions | [place] [address] | [address] | | | | | (HCC) | Phone: | [place] | | | | | Procedures | [phone] | [address] | | | | | [place] ALTEPLASE | Fax: | Phone: | | | | | | [phone] | [phone] | | | | | RECOMBINANT, | | Fax: | | | | | 1 MG PORT | | [phone] | | | | | FLUSH | | | +--------+--------+ + + + + Encounter Details +--------+ + + + + | Date | Type | Department | Care Team | Description | +--------+ + + + + | 04/27/ | Hospital | 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 | | | | | [...] documented as of this encounter Progress Notes Marilou Frost RN - 04/27/2020 8:15 AM PDTPort accessed for lab draw. 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 Saline locked, left accessed for treatment. documented in th is encounter Plan of Treatment +--------+ + + + + | Date | Type | Specialty | Care Team | Description | +--------+ + + + + | 06/29/ | Appointment | Infusion Therapy | Wilton Jeff MD | | | 2019 | | | [address] | | | | | | [place] | | | | | | [phone] | | | | | | | | +--------+ + + + + | 06/29/ | Office | Oncology | Wilton Jeff MD | | 2019 | Visit | | [address] | | | | | | [place] | | | | | | [address] | | | | | | | | | | | | Marilou Mcmullen, | | | | | | [employer] CONSULTANT [address] | | | | | [address] | | | | | | [place] [address] | | | | | | [phone] | | | | | | | | +--------+ + + + + | 06/29/ | Appointment | Infusion Therapy | Wilton Jeff MD | | | 2019 | | | [address] | | | | | | [place] | | | | | | [address] | | | | | | | | +--------+ + + + + | 07/14/ | Office | Otolaryngology | She Huang | | | 2019 | Visit | | DO Sophia Canela | | | | | | [place] [address] | | | | | | [place] [address] | | | | | | [phone] | | | | | | | | +--------+ + + + + | 07/20/ | Appointment | Infusion Therapy | Wilton Jeff MD | | | 2019 | | | [address] | | | | | | [place] | | | | | | [address] | | | | | | | | +--------+ + + + + | 07/20/ | Office | Oncology | Wilton Jeff MD | | | 2019 | Visit | | [address] | | | | | | [place] | | | | | | [address] | | | | | | | | +--------+ + + + + | 07/20/ | Appointment | Infusion Therapy | Wilton Jeff MD | | | 2019 | | | [address] | | | | | | [place] | | | | | | [address] | | | | | | | | +--------+ + + + + | 08/17/ | Appointment | Infusion Therapy | Wilton Jeff MD | | | 2019 | | | [address] | | | | | | [place] | | | | | | [address] | | | | | | | [...] + | CBC WITH | STAT | 04/27/2020 | 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 | | | | | multiple regions | | | | | | (HCC) | | + +--------+ + + + | COMPREHENSIVE | STAT | 04/27/2020 | Mediastinal large | Results for this | | METABOLIC PANEL | | 8:32 AM | 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 | | | | | multiple regions | | | | | | (HCC) | | + +--------+ + + + documented in this encounter Results CBC with Differential (04/27/2020 8:32 AM PDT) [...] | | Testing Performed at | | [facility] | | | | [facility], [address] | | LABORATORY | | | | [place], | | | | | | [place] [address] | | | | + + + + + + + + | Specimen | + + | Blood | + + + + + + + | Performing | Address | City/State/Zipcode | Phone Number | | Organization | | | | + + + + + | REFERENCE LAB | [address] | [place] | [phone] | | [facility] | [address] | [address] | | | LABORATORY | | | | + + + + + | REFERENCE LAB | [address] | [place], [place] | | | [facility] | [address] | [address] | | | LABORATORY | | | [...] [place] | | | | | | [address] | | | | + + + + + + + + | Specimen | + + | Blood | + + + + + + + | Performing | Address | City/State/Zipcode | Phone Number | | Organization | | | | + + + + + | REFERENCE LAB | [address] [place] [address] | [place], [place] | [phone] | | [facility] | [address] | [address] | | | LABORATORY | | | | + + + + + | REFERENCE LAB | [address] | [place], [place] | | | [facility] | [address] | [address] | | | LABORATORY | | | [...] chloride 0.9% flush 10 | Given | 04/27/20 | 10 mLs | | | | mL 10 mL, Intracatheter, PRN, | | 20 8:45 | | | | | Line Care, Starting 04/27/20 | | AM PDT | | | | | at 0845 | | | | | | + +--------+ +--------+------+------+ +---+---+ | | | +---+---+ documented in this encounter"
--- OUTSIDE RECORDS SUMMARY | ~2020-06-23 | XMS | Encounter Summary ---
Demographics + + + | Address | [address] | | | [place] [address] | + + + | Home Phone | | + + + | Preferred Language | Unknown | + + + | Marital Status | Single | + + + | Hinduism Affiliation | Unknown | + + + | Race | White | + + + | Ethnic Group | Not or | + + + Author + + + | Author | [facility] | | | and [place] | + + + | Organization | [facility] | | | [...] Team Providers + +------+ + | Care Retail Parts Professional Name | Role | Phone | + +------+ + | Myrna Mejia MD | PCP | | + +------+ + Encounter Details +--------+ + + + + | Date | Type | Department | Care Team | Description | +--------+ + + + + | 04/06/ | Orders Only | [facility] | Kesha Mcdaniel RP | | | 2020 | | HEMATOLOGY AND | | | | | | [facility] PHARM[facility]Y | | | | | | [address] | | | | | | [place] | | | | | | [address] | | | | | | [phone] | | | +--------+ + + + [...] [place] | | | | | | [address] | | | | | | | | +--------+ + + + + | 06/29/ | Office | Oncology | Wilton Jeff MD | | | 2019 | Visit | | [address] | | | | | | [place] | | | | | | [address] | | | | | | | | | | | | Marilou Mcmullen, | | | | | | [employer]ANT [address] | | | | | | [address] | | | | | | [place] [address] | | | | | | [phone] | | | | | | | | +--------+ + + + + | 06/29/ | Appointment | Infusion Therapy | Wilton Jeff MD | | | 2019 | | | [address] | | | | | | [place] | | | | | | [address] | | | | | | | | +--------+ + + + + | 07/14/ | Office | Otolaryngology | She Huang | | | 2019 | Visit | | DO Sophia Canela | | | | | | [place] [address] | | | | | | [place] [address] | | | | | | [phone] | | | | | | | | +--------+ + + + + | 07/20/ | Appointment | Infusion Therapy | Wilton Jeff MD | | | 2019 | | | [address] | | | | | | [place] | | | | | | [address] | | | | | | | | +--------+ + + + + | 07/20/ | Office | Oncology | Wilton Jeff MD | | | 2019 | Visit | | [address] | | | | | | [place] | | | | | | [address] | | | | | | | | +--------+ + + + + | 07/20/ | Appointment | Infusion Therapy | Wilton Jeff MD | | | 2019 | | | [address] | | | | | | [place] | | | | | | [address] | | | | | | | | +--------+ + + + + | 08/17/ | Appointment | Infusion Therapy | Wilton Jeff MD | | | 2019 | | | [address] | | | | | | [place] | | | | | | [address] | | | | | | | | +--------+ + + + + | 08/17/ | Office | Oncology | Wilton Jeff MD | | | 2019 | Visit | | [address] | | | | | | [place], [place] | | | | | | [address] | | | | | | | | +--------+ + + + + documented as of this encounter Visit Diagnoses Not on filedocumented in this encounter"
--- OUTSIDE RECORDS SUMMARY | ~2020-06-23 | XMS | Encounter Summary ---
Demographics + + + | Address | [address] | | | [place] [address] | + + + | Home Phone [...] + + + | Author | [facility] | | | and [place] | + + + | Organization | [facility] | | | [...] Team Providers + +------+ + | Care Director Medical Writing Name | Role | Phone | + [...] | | Hodgkin | [address] | [place], [place] | | | | | lymphoma of | [address] [address] | [address] | | | | | lymph nodes | [place], [place] | Phone: | | | | | of multiple | [address] | [phone] | | | | | regions | Phone: | Fax: | | | | | (FORM[facility]LY [facility]) | [phone] | [phone] | | | | | Procedures | Fax: | | | | | | IR Placement | [phone] | | | | | | Port | | | +--------+--------+ + + + + Reason for Visit Diagnostic/Screening (Routine) +--------+--------+ + + + + | Status | Reason | Specialty | Diagnoses / | Referred By | Referred To | | | | | Procedures | Contact | Contact | +--------+--------+ + + + + | Closed | | Radiology | Diagnoses | Farhad, | [facility] | | | | | Other | ED Kay | Intra Op [address] | | | | | classical | [address] | | | | | Hodgkin | [address] | [place], [place] | | | | | lymphoma of | [place] | [address] | | | | | lymph nodes | [place], [place] | Phone: | | | | | of multiple | [address] | [phone] | | | | | regions | Phone: | Fax: | | | | | (FORM[facility]LY [facility]) | | [phone] | | | | | Procedures | Fax: | | | | | | IR Placement | [phone] | | | | | | Port | | | +--------+--------+ + + + + Encounter Details +--------+ + + + + | Date | Type | Department | Care Team | Description | +--------+ + + + + | 04/01/ | Hospital | [facility] | Gary Alvarez, | 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 | CENTER IR INTRA OP | [address] | Hodgkin lymphoma of | | | | [address] | [place], | lymph nodes of | | | | [place] | [place] [address] | multiple regions | | | | [address] | [phone] | ([facility]) | | | | [phone] | | | | | | | Wood Gilliam | | | | | | MD Torsten [address] | | | | | | [address] | | | | | | [place] [address] | | | | | | | | | | | | (Fax) | | +--------+ + + + + [...] + + + | Blood Pressure | 115/65 | 04/01/2020 11:35 AM | | | | | PDT | | + + + + + | Pulse | 97 | 04/01/2020 11:35 AM | | | | | PDT | | + + + + + | Temperature | 36.8 C (98.2 F) | 04/01/2020 11:10 AM | | | | | PDT | | + + + + + | Respiratory Rate | 27 | 04/01/2020 11:35 AM | | | | | PDT | | + + + + + | Oxygen Saturation | 97% | 04/01/2020 11:35 AM | | | | | PDT | | + + + + + | Inhaled Oxygen | - | - | | | Concentration | | | | + + + + + | Weight | 84.7 kg (186 lb 11.7 | 04/01/2020 9:13 AM | | | | oz) | PDT | | + + + + + | Height | 180.3 cm (5' 11") | 04/01/2020 9:13 AM | | | | | PDT | | + + + + + | Body Mass Index | 26.04 | 04/01/2020 9:13 AM | | | | | PDT | | + + + + + documented in this encounter Discharge Instructions Instructions Lori Milner RN - 04/01/2020MEDIPORT DISCHARGE INSTRUCTIONS 1. Rest for the remainder of the day. 2. For the next 24 hours you should NOT: a. Drive a car or operate machinery or power tools. b. Drink any alcoholic beverages, including wine. c. Smoke unattended. d. Make any important decisions. e. Cook or bake unsupervised. 3. If Dermabond skin adhesive was placed: a. Keep area clean and dry. b. Do not scratch, rub, or pick at the skin glue c. Do not shower or bathe for 24 hours. After 24 hours, you may let water run over area, d o not scrub area. d. Do not expose area to direct sunlight. e. Do not apply petroleum based products (i.e. Neosporin, Vaseline, etc.). These products will cause the skin glue to break down and come off before the wound is healed. 4. If you develop local redness, swelling or fever about 101 degrees Fahrenheit, call: Incision Care Remember: Follow-up visits allow your healthcare provider to make sure your incision is hea ling well. Keep your appointments. Keep in mind that there are many types of bandages, tapes, and supplies. Make sure to follo w the specific instructions given by your healthcare team. Ask for phone numbers to call if you need help. Healthcare provider phone number: Home care Tips for home care include the following: Always wash with soap and dry your hands before touching your incision. Keep your incision clean and dry. Don't put creams or ointments on the incision unless d irected by your healthcare team. Don't do things that could cause dirt or sweat to get on your incision. Don t pick at scabs. They help protect the wound. Keep your incision dry, and out of water. Take a sponge bath to prevent getting your incision wet. Ask your provider when can you take a shower or bath. Ask your provider about the best way to keep your incision dry when bathing or showering . Pat stitches dry if they get wet. Don t rub. Leave the bandage (dressing) in place until you are told to remove it or change it. Marcos ge it only as directed, using clean hands. After the first 12 hours, change your dressing every 24 hours, or as directed by your althcare provider. Change your dressing if it gets wet or soiled. Care for types of closures Follow these guidelines: Stitches or damian. Once you no longer need to keep these dry, clean the wound daily. F irst remove the bandage using clean hands. Then wash the area gently with soap and clean, ru nning water. Finally, put on a new bandage. Skin glue. Don t put liquid, ointment, or cream on your wound while the glue is in rosalinda ce.Don't do activities that cause heavy sweating. Protect the wound from sunlight. Don't s cratch, rub, or pick at the glue. Don't put tape directly over the glue.The glue should pe el off within 5 to 10 days. Surgical tape. Keep the area dry. If it gets wet, blot the area dry with a clean towel. Surgical tape usually falls off within 7 to 10 days. If it has not fallen off after 10 days, contact your healthcare provider before taking it off yourself. If you are told to remove t he tape,put mineral oil or petroleum jelly on a cotton ball. Gently rub the tape until it' s removed. Changing your dressing Leave the dressing (bandage) in place until you are told to remove it or change it. Follow the instructions below unless told otherwise by your healthcare provider: Always wash your hands before changing your dressing. After the first48 hours, the incision wound usually will have closed. If it has, uncov er the incision and leave it open to the air.If the incision has not closed, keep it cover ed. Cover your incision only if your clothing is rubbing it or causingirritation, or if it 's still draining. Change your dressing if it gets wet or soiled. Follow-up care Follow up with your healthcare provider to ask how long stitches or damian should be left in place. Be sure to return for stitch or staple removal as directed. If dissolving stitches were used in an area such as your mouth, these will not need to be removed. They should fal l out or dissolve on their own. If tape closures were used, remove them yourself when your provider recommends if they have not fallen off on their own. Ifskin glue was used, the glue will wear off by itself. When to call your healthcare provider Call your healthcare provider if you have any of the below: Pain, redness, swelling, or bleeding that gets worse Smelly fluid from the incision, or changes in color of the drainage from the incision Fever of 100.4F ( 38C) or higher, or as advised Shaking or chills Vomiting or nausea that doesn't go away Numbness, coldness, or tingling around the incision Changes in skin color around the incision Opening of the wound Stitches that pull apart [place] that fall out Surgical tape that falls off before 7 days Robyn last reviewed this educational content on 05/05/201919995509-7831 The [employer]. [address] [place] [address]. All righ ts reserved. This information is not intended as a substitute for professional medical care. Always follow your healthcare professional's instructions. Recovery After Procedural Sedation (Adult) You have been given medicine by vein to make you sleep during your surgery. This may have i ncluded both a pain medicine and sleeping medicine. Most of the effects have worn off. But y ou may still have some drowsiness for the next 6 to 8 hours. Home care Follow these guidelines when you get home: For the next 8 hours, you should be watched by a responsible adult. This person should m shilpa sure your condition is not getting worse. Don't drink any alcoholfor the next [address], operate dangerous machinery, or make important business or personal decisio nsduring the next 24 hours. Note: Your healthcare provider may tell you not to take any medicine by mouth for pain or s leep in the next 4 hours. These medicines may react with the medicines you were given in the hospital. This could cause a much stronger response than usual. Follow-up care Follow up with your healthcare provider if you are not alert and back to your usual level o f activity within 12 hours. When to seek medical advice Call your healthcare provider right away if any of these occur: Drowsiness gets worse Weakness or dizziness gets worse Repeated vomiting You can't be awakened Fever New rash Robyn last reviewed this educational content on 06/21/201619995796-2746 [employer]. [address] [place] [address], [place] [address]. All righ ts reserved. This information is not intended as a substitute for professional medical care. Always follow your healthcare professional's instructions. What is Coronavirus? The Novel Coronavirus 2019 (COVID-19) is a new virus strain that is spread mainly from pers us-rc-izncrp through respiratory droplets when an infected person [...] are not available, use an alcohol-based hand abrasives sales representative with at least 60 % alcohol covering [...] and need to call 911, notify the gear coding machine operator that you have or think you [...] COVID-19 symptoms, residents in nursing facilities or prison communities or home health, or those who are high risk (older adults, chronic diseases, immunosuppressed) s daltonuld be prioritized for testing. These recommendations may [...] or preparing your food. ? Use hand abrasives sales representative if soap and water are not available. [...] with soap and water or in the car dumper operator helper/washer. ? Call ahead before visiting your doctor. [...] local public health website. CDC: COVID-19: https://www.cdc.gov/coronavirus/2019-ncov/index.html documented in this encounter Medications at Time [...] tablet by | 20 | 0 | // | | | (ZOFRAN ODT) 4 mg [...] documented as of this encounter Progress Notes Lori Milner RN - 04/01/2020 10:00 AM PDTDischarge instructions, including signs and symptoms of surgical site infection, discussed with patient and family. Patient and family state understanding and have no further questions. No prescriptions given. Vital signs sta ble. Discharged per order. Lori Milner RN 04/01/2020 12:00 PM PDT documented in this encounter H&P Notes Wood Gilliam MD - 04/01/2020 10:00 AM PDTFormatting of this note might be di fferent from the original. The current H&P was reviewed. The patient was reexamined. Re-evaluation of the patient conf irms the necessity for the scheduled procedure. No change has occurred in the patient's cond ition since the H&P was performed less than 30 days ago. Recent Results (from the past 24 hour(s)) Protime INR Result Value Ref Range INR 1.0 CBC with Differential Result Value Ref Range WBC 13.37 (H) 3.80 - 11.00 K/uL Red Blood Cells 4.22 4.20 - 5.70 M/uL Hemoglobin 11.8 (L) 13.2 - 17.0 g/dL Hematocrit 36.6 (L) 39.0 - 50.0 % MCV 86.7 80.0 - 100.0 fl MCH 28.0 27.0 - 34.0 pg MCHC 32.2 32.0 - 35.5 g/dL RDW-SD 43.1 37 - 53 fl Platelet Count 543 (H) 150 - 400 K/uL MPV 9.3 fl Diff Type AUTOMATED % nRBC 0.0 0 /100WBC % Neutrophils 81.90 % IMMATURE GRANULOCYTE 0.60 % % Lymphocytes 7.00 % Monocyte % 9.10 % Eosinophils % 1.00 % Basophils % 0.40 % Neutrophils, Absolute 10.95 (H) 1.90 - 7.40 K/uL IMMATURE GRANS AB 0.08 (H) 0.00 - 0.07 K/uL Absolute Lymphocytes 0.93 (L) 1.00 - 3.90 K/uL Absolute Monocytes 1.22 (H) 0.00 - 0.80 K/uL Eosinophils, Absolute 0.13 0.00 - 0.50 K/uL Basophils, Absolute 0.06 0.00 - 0.10 K/uL Lab Results Component Value Date INR 1.0 04/01/2020 Lab Results Component Value Date PLT 543 (H) 04/01/2020 Vitals: 04/01/20 0913 BP: 119/69 Pulse: 111 Resp: 24 Temp: 37.4 C (99.4 F) Plan for Sedation: IV Conscious Sedation with Fentanyl and Versed. Moderate Sedation Presedation Assessment completed. The patient was reassessed immediately prior to sedation with no significant clinical urban es in the exam, including heart and lungs, since the completion of H&P ASA Classification: ASA 1 - Normal health patient Mallampati Classification: Mallampati Class 1 (can visualize the entire tonsil) Consent: Risks, alternatives, and benefits of the procedure were discussed with the patient. Questio ns were answered. Signed and verbal consent were given as witnessed by staff. Assessment and Plan: NHL here for port placement. Natalio Stuart MD - 03/31/2020 4:30 PM PDT . [facility] Oncology Progress Note [...] Signed by Wilton Jeff MD on 03/31/2020 Reason for Office Visit/Interval History This exam was initially conducted via a secure 256-bit AES encrypted bidirectional video se ssion. Service was provided [id number] with the patient via interactive videoconferencing Coding will be based on Medical Decision Making. You have chosen to receive care through the use of telemedicine. Telemedicine enables [facility] care providers at different locations to provide [...] they are located in a state where I, Wilton Jeff MD am licensed. The patient presents today [...] CERVICAL NODE; Surgeon: She Huang DO; Location: [facility] OR Family History Problem Relation Age [...] file Gets together: Not on file Attends orthodoxy service: Not on file Active member of [...] any questions or concerns. Wilton Jeff MD [facility] Oncology 03/31/2020 Portions of this [...] documented in this encou nter Miscellaneous Notes Sedation Documentation - Nai Doshi, Technologist - 04/01/2020 10:33 AM PDTLidocaine injected, access obtained via micro puncture and US, wire inserted, pocket created, port in serted, peelaway inserted, port hooked up, flushed, site sutured and covered with octylElect ronically signed by Nai Doshi Technologist at 04/01/2020 10:34 AM PDTdocumented in t his encounter Plan of Treatment +--------+ + + + + | Date | Type | Specialty | Care Team | Description | +--------+ + + + + | 06/29/ | Appointment | Infusion Therapy | Wilton Jeff MD | | | 2019 | | | [address] | | | | | | [place] | | | | | | [address] | | | | | | | | +--------+ + + + + | 06/29/ | Office | Oncology | Wilton Jeff MD | | | 2019 | Visit | | [address] | | | | | | [place] | | | | | | [address] | | | | | | | | | | | | Marilou Mcmullen, | | | | | | CARDIOLOGY TECH [address] | | | [address] | | | | | | [place] [address] | | | | | | [phone] | | | | | | | | +--------+ + + + + | 06/29/ | Appointment | Infusion Therapy | Wilton Jeff MD | | | 2019 | | | [address] | | | | | | [place] | | | | | | [address] | | | | | | | | +--------+ + + + + | 07/14/ | Office | Otolaryngology | She Huang | | | 2019 | Visit | | DO Sophia Canela | | | | | | [address] | | | | | | [place] [address] | | | | | | [phone] | | | | | | | | +--------+ + + + + | 07/20/ | Appointment | Infusion Therapy | Wilton Jeff MD | | | 2019 | | | [address] | | | | | | [place] | | | | | | [address] | | | | | | | | +--------+ + + + + | 07/20/ | Office | Oncology | Wilton Jeff MD | | | 2019 | Visit | | [address] | | | | | | [place] | | | | | | [address] | | | | | | | | +--------+ + + + + | 07/20/ | Appointment | Infusion Therapy | Wilton Jeff MD | | | 2019 | | | [address] | | | | | | [place] | | | | | | [address] | | | | | | | | +--------+ + + + + | 08/17/ | Appointment | Infusion Therapy | Wilton Jeff MD | | | 2019 | | | [address] | | | | | | [place] | | | | | | [address] | | | | | | | | +--------+ + + + + | 08/17/ | Office | Oncology | Wilton Jeff MD | | | 2019 | Visit | | [address] | | | | | | [place] | | | | | | [address] | | | | | | | | +--------+ + + + + documented as of this encounter Procedures + +--------+ + + + | Procedure Name | Priori | Date/Time | Associated Diagnosis | Comments | | | ty | | | | + +--------+ + + + | IR PLACEMENT PORT > | Routin | 04/01/2020 | Other classical | Results for this | | 5 YEARS | e | 10:59 AM | Hodgkin lymphoma of | procedure are in the | | | | PDT | lymph nodes of | results section. | | | | | multiple regions | | | | | | (HCC) | | + +--------+ + + + | PROTIME INR | STAT | 04/01/2020 | | Results for this | | | | 9:07 AM | | procedure are in the | | | | PDT | | results section. | + +--------+ + + + | CBC WITH | STAT | 04/01/2020 | | Results for this | | DIFFERENTIAL | | 9:07 AM | | procedure are in the | | | | PDT | | results section. | + +--------+ + + + documented in this encounter Results IR Placement Port (04/01/2020 [...] limited | | | to bleeding, pneumothorax, infection,custodial vein occlusion, | | | allergic reaction [...] | Procedure Note | + + | [facility], [id number] - 04/01/2020 4:26 PM PDT | | [...] limited to bleeding, pneumothorax, infection, | | terminal operations manager vein occlusion, allergic reaction and . | [...] vein. Using standard Seldinger technique, a 5 Maori | | micropuncture sheath was position over [...] | | | + +---------+ + + CBC with Differential (04/01/2020 9:07 AM PDT) + + + + + + | Component | Value | Ref Range | Performed | Pathologist | | | | | At | Signature | + + + + + + | WBC | 13.37 (H) | 3.80 - 11.00 | [facility] | | | | | K/uL | LABORATORY | | + + + + + + | Red Blood | 4.22 | 4.20 - 5.70 | [facility] | | | Cells | | M/uL | LABORATORY | | + + + + + + | Hemoglobin | 11.8 (L) | 13.2 - 17.0 | [facility] | | | | | g/dL | LABORATORY | | + + + + + + | Hematocrit | 36.6 (L) | 39.0 - 50.0 % | [facility] | | | | | | LABORATORY | | + + + + + + | MCV | 86.7 | 80.0 - 100.0 fl | [facility] | | | | | | LABORATORY | | + + + + + + | MCH | 28.0 | 27.0 - 34.0 pg | [facility] | | | | | | LABORATORY | | + + + + + + | MCHC | 32.2 | 32.0 - 35.5 | [facility] | | | | | g/dL | LABORATORY | | + + + + + + | RDW-SD | 43.1 | 37 - 53 fl | [facility] | | | | | | LABORATORY | | + + + + + + | Platelet | 543 (H) | 150 - 400 K/uL | [...] + + + + | % | 81.90 | % | [facility] | | | Neutrophils | | | LABORATORY | | + + + + + + | IMMATURE | 0.60 | % | [facility] | | | GRANULOCYTE | | | LABORATORY | | + + + + + + | % | 7.00 | % | [facility] | | | Lymphocytes | | | LABORATORY | | + + + + + + | Monocyte % | 9.10 | % | [facility] | | | | | | LABORATORY | | + + + + + + | Eosinophils | 1.00 | % | [facility] | | | % | | | LABORATORY | | + + + + + + | Basophils % | 0.40 | % | [facility] | | | | | | LABORATORY | | + + + + + + | Neutrophils | 10.95 (H) | 1.90 - 7.40 | [facility] | | | , Absolute | | K/uL | LABORATORY | | + + + + + + | IMMATURE | 0.08 (H)Comment: NOTE | 0.00 - 0.07 | [facility] | | | GRANS AB | NEW REFERENCE RANGE | K/uL | LABORATORY | | + + + + + + | Absolute | 0.93 (L) | 1.00 - 3.90 | [facility] | | | Lymphocytes | | K/uL | LABORATORY | | + + + + + + | Absolute | 1.22 (H) | 0.00 - 0.80 | [facility] | | | Monocytes | | K/uL | LABORATORY | | + + + + + + | Eosinophils | 0.13 | 0.00 - 0.50 | [facility] | | | , Absolute | | K/uL | LABORATORY | | + + + + + + | Basophils, | 0.06Comment: Testing | 0.00 - 0.10 | [facility] | | | Absolute | performed at [facility];[address] | K/uL | LABORATORY | | | | [address];[place], [place] | | | | | | [address] | | | | + + + + + + + + | Specimen | + + | Blood | + + + + + + + | Performing | Address | City/State/Zipcode | Phone Number | | Organization | | | | + + + + + | [facility] | [address] | [place] [address] | [phone] | + + + + + Protime INR (04/01/2020 9:07 AM PDT) + + + + + + | Component | Value | Ref Range | Performed | Pathologist | | | | | At | Signature | + + + + + + | INR | 1.0Comment: REFERENCE | | [facility] | | | | RANGE:0.9 - 1.2 | | LABORATORY | | | | NON-ANTICOAGULATED2.0 | | | | | | - 3.0 ALL OTHER | | | | | | THERAPEUTIC | | | | | | INDICATIONS2.5 - 3.5 | | | | | | MECHANICAL HEART VALVES, | | | | | | RECURRENT OR SYSTEMIC | | | | | | EMBOLISMTesting | | | | | | performed at [facility] | | | | | | [facility];[place], [place] | | | | | | [address] | | | | + + + + + + + + | Specimen | + + | Blood | + + + + + + + | Performing | Address | City/State/Zipcode | Phone Number | | Organization | | | | + + + + + | 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) | + + documented in this encounter Administered Medications + +---------+ +------+------+------+ | Medication Order | MAR | Action | Dose | Rate | Site | | | Action | Date | | | | + +---------+ +------+------+------+ | ceFAZolin in dextrose (ANCEF, | New Bag | 04/01/20 | 2 g | | | | KEFZOL) IVPB Administer over 30 | | 20 10:21 | | | | | Minutes, CONTINUOUS PRN, Starting | | AM PDT | | | | | 04/01/20 at 1021 | | | | | | + +---------+ +------+------+------+ +---+---+ | | | +---+---+ + +-------+ +--------+---+---+ | fentaNYL (PF) injection | Given | 04/01/20 | 50 mcg | | | | Intravenous, PRN, Starting Wed | | 20 10:26 | | | | | 04/01/20 at 1024 | | AM PDT | | | | + +-------+ +--------+---+---+ +-------+ +--------+---+---+ | Given | 04/01/20 | 50 mcg | | | | | 20 10:24 | | | | | | AM PDT | | | | +-------+ +--------+---+---+ +---+---+ | | | +---+---+ + +-------+ +-------+---+---+ | heparin 100 units/mL flush | Given | 04/01/20 | 5 mLs | | | | injection PRN, Starting Wed | | 20 10:41 | | | | | 04/01/20 at 1041 | | AM PDT | | | | + +-------+ +-------+---+---+ +---+---+ | | | +---+---+ + +-------+ +--------+---+---+ | lidocaine 1% injection PRN, | Given | 04/01/20 | 10 mLs | | | | Starting 04/01/20 at 1025 | | 20 10:25 | | | | | | | AM PDT | | | | + +-------+ +--------+---+---+ +---+---+ | | | +---+---+ + +-------+ +--------+---+---+ | lidocaine 1%-EPINEPHrine | Given | 04/01/20 | 10 mLs | | | | 1:100,000 injection PRN, | | 20 10:30 | | | | | Starting 04/01/20 at 1030 | | AM PDT | | | | + +-------+ +--------+---+---+ +---+---+ | | | +---+---+ + +-------+ +------+---+---+ | midazolam (VERSED) 1 mg/mL | Given | 04/01/20 | 2 mg | | | | injection Intravenous, PRN, | | 20 10:32 | | | | | Starting 04/01/20 at 1024 | | AM PDT | | | | + +-------+ +------+---+---+ +-------+ +------+---+---+ | Given | 04/01/20 | 1 mg | | | | | 20 10:26 | | | | | | AM PDT | | | | +-------+ +------+---+---+ | Given | 04/01/20 | 1 mg | | | | | 20 10:24 | | | | | | AM PDT | | | | +-------+ +------+---+---+ +---+---+ | | | +---+---+ + +-------+ +---+---+---+ | povidone-iodine 5 % external | Given | 04/01/20 | | | | | solution Topical, PRN, Other, | | 20 9:19 | | | | | pre-op, Starting 04/01/20 at | | AM PDT | | | | | 0906, For 1 dose, Pre-op | | | | | | + +-------+ +---+---+---+ +---+---+ | | | +---+---+ + +---------+ +---+-------+---+ | sodium chloride 0.9% (NS) | New Bag | 04/01/20 | | 100 | | | infusion at 100 mL/hr, | | 20 9:19 | | mL/hr | | | Intravenous, CONTINUOUS, Starting | | AM PDT | | | | | 04/01/20 at 0930, Pre-op | | | | | | + +---------+ +---+-------+---+ +---+---+ | | | +---+---+ documented in this encounter
--- OUTSIDE RECORDS SUMMARY | ~2020-06-23 | XMS | Encounter Summary ---
Demographics + + + | Address | [address] | | [place] [address] | + + + | Home Phone [...] + | Author | [facility] | | | and [place] | + + + | Organization | [facility] | | | [...] Providers + +------+ + | Care Manager Purchasing Name | Role | Phone | + [...] + + | 05/05/ | Telephone | [facility] | Wilton Jeff MD | Other (Tegan ) | | 2019 | | HEMATOLOGY AND | [address] | | | | | ONCOLOGY [address] [place] | | | [address] | [address] | | | | | [place] | | | | | | [address] | | | | | | [phone] | | | +--------+ + + + [...] 05/05/2020 10:56 AM PDTI spoke to Ernestine, medical receptionist assistant for Dr. Mejia @ [facility] who confirmed that they did receive Ude nyca orders yesterday, and that they were faxed off for scheduling this morning. Ernestine then said patient would have to speak to [facility] Day Surgery Department to schedule Udenyca injections. I called patient and gave him contact information of Day Surgery as provided by Ernestine of [facility] and instructed him to call them to [...] process over again. Thank you, BRUCE LEONARDO, Diffusion Furnace Operator ----- Message ----- From: Brenna Davis RN [...] I spoke with same day surgery at [facility] in [place]. They said they had to have a [...] 2020 9:08 AM PDT To: Brittany Oswald, Diffusion Furnace Operator, # Hi Preet, I am not certain who to send this request to so please forward to appropriate person. Patient is scheduled in clinic tomorrow for Neulasta. Is there any way we can change this to [place] where he lives so he doesn't have [...] [place] | | | | | | [address] | | | | | | | | +--------+ + + + + | 06/29/ | Office | Oncology | Wilton Jeff MD | | | 2019 | Visit | | [address] | | | | | | [place] | | | | | | [address] | | | | | | | | | | | | Marilou Mcmullen, | | | | | | LAPPING MACHINE TENDER [address] | | | | | | [address] | | | | | | [place] [address] | | | | | | [phone] | | | | | | | | +--------+ + + + + | 06/29/ | Appointment | Infusion Therapy | Wilton Jeff MD | | | 2019 | | | [address] | | | | | | [place] | | | | | | [address] | | | | | | | | +--------+ + + + + | 07/14/ | Office | Otolaryngology | She Huang | | | 2019 | Visit | | DO Sophia Canela | | | | | | [place] [address] | | | | | | [place] [address] | | | | | | [phone] | | | | | | | | +--------+ + + + + | 07/20/ | Appointment | Infusion Therapy | Wilton Jeff MD | | | 2019 | | | [address] | | | | | | [place] | | | | | | [address] | | | | | | | | +--------+ + + + + | 07/20/ | Office | Oncology | Wilton Jeff MD | | | 2019 | Visit | | [address] | | | | | | [place] | | | | | | [address] | | | | | | | | +--------+ + + + + | 07/20/ | Appointment | Infusion Therapy | Wilton Jeff MD | | | 2019 | | | [address] | | | | | | [place] | | | | | | [address] | | | | | | | | +--------+ + + + + | 08/17/ | Appointment | Infusion Therapy | Wilton Jeff MD | | | 2019 | | | [address] | | | | | | [place] | | | | | | [address] | | | | | | | | +--------+ + + + + | 08/17/ | Office | Oncology | Wilton Jeff MD | | | 2020 | Visit | | [address] | | | | | | [place] | | | | | | [address] | | | | | | | | +--------+ + + + + documented as of this encounter Visit Diagnoses Not on filedocumented in this encounter"
--- OUTSIDE RECORDS SUMMARY | ~2020-06-23 | XMS | Encounter Summary ---
Demographics + + + | Address | [address] | | [place] [address] | + + + | Home Phone | | + + + | Preferred Language | Unknown | + + + | Marital Status | Single | + + + | Quaker Affiliation | Unknown | + + + | Race | White | + + + | Ethnic Group | Not or | + + + Author + + + | Author | [facility] | | | and [place] | + + + | Organization | [facility] | | | and [place] | + [...] Providers + +------+ + | Care Neon Tube Bender Name | Role | Phone | + [...] | | | | | | B CELL | | | | | | | [place] | | | +--------+--------+ + + + + Encounter Details +--------+ + + + + | Date | Type | Department | Care Team | Description | +--------+ + + + + | 06/10/ | Hospital | [facility] | Addie Whiteside MD | Admission for | | 2020 - | Encounter | [facility] | [address] | antineoplastic | | | | CARE FLOOR [address] | [address] [place], [place] | chemotherapy | | 06/15/ | | [address] | [phone] | (Primary Dx); | | 2019 | | [place], [place] | | Diffuse large B-cell | | | | [phone] | Bob Galvez | lymphoma of lymph | | | | [phone] | MD Paul [address] | nodes of multiple | | | | | [address] [place], [place] | regions (HCC); | | | | | [address] | Cervical | | | | | | lymphadenopathy; | | | | | | Supraclavicular | | | | | | adenopathy; Tobacco | | | | | | abuse; Dental caries | +--------+ + + + + Social [...] + + + | Blood Pressure | 136/71 | 06/15/2020 3:08 PM | | | | | PDT | | + + + + + | Pulse | 101 | 06/15/2020 3:08 PM | | | | | PDT | | + + + + + | Temperature | 36.3 C (97.3 F) | 06/15/2020 3:08 PM | | | | | PDT | | + + + + + | Respiratory Rate | 16 | 06/15/2020 3:08 PM | | | | | PDT | | + + + + + | Oxygen Saturation | 96% | 06/15/2020 3:08 PM | | | | | PDT | | + + + + + | Inhaled Oxygen | - | - | | | Concentration | | | | + + + + + | Weight | 98.6 kg (217 lb 6 | 06/14/2020 8:06 AM | | | | oz) | PDT | | + + + + + | Height | 180.3 cm (5' 11") | 06/10/2020 7:34 PM | | | | | PDT | | + + + + + | Body Mass Index | 30.32 | 06/10/2020 7:34 PM | | | | | PDT [...] documented as of this encounter Discharge Summaries Bob Galvez MD - 06/15/2020 10:02 AM PDT Patient: Asad Longo : 1990 Date of Admission: 06/10/2020 Date of Discharge: 06/15/2020 Treatment Team: Wilton Jeff MD Discharging Provider: Bob Galvez MD Discharge Diagnoses: Principal Problem: Admission for antineoplastic chemotherapy Active Problems: Diffuse large B-cell lymphoma of lymph nodes of multiple regions Resolved Problems: * No resolved hospital problems. * Procedures Performed: Chief Complaint: No chief complaint on file. Hospital Course: Mr.Dylan Bernard Longo29 y.o.male recent diagnosed March 2020 withdiffuse large B-cell lymphoma,positive for CD20, CD23,BCL 6, CD79a, and PAX 5. Ki-67 was 60% in favo r of a primary mediastinal large B-cell lymphoma. He got his first cycle of chemo from 08 April to then he got his second cycle 29 April to 04 May He got his third cycle of chemo from 19 May to ember He was admitted to receive 4th chemo Cycle 1-5 EPOCH. Patient has symptomatic control of nausea and will have Pepcid and Zofran for nausea. Outstanding Issues: Discharge Exam and Data: Vital Signs: BP 118/59 | Pulse 112 | Temp 36.7 C (98.1 F) (Oral) | Resp 17 | Ht 1.803 m (5' 11") | Wt 98.6 kg (217 lb 6 oz) | SpO2 96% | BMI 30.32 kg/m Physical Exam Constitutional: Alert and awake, no acute distress HEENT: Neck supple, no JVD, non icteric sclera. Cardiovascular: Normal rate normal heart sounds with S1 and S2, Pulmonary/Chest: Effort normal and breath sounds normal. No stridor. No respiratory distres s. no wheezes. no rales. Abdominal: Soft. Bowel sounds are normal. There is no tenderness. There is no rebound and n o guarding. Extremeties/Musculoskeletal: Normal range of motion.exhibits no tenderness. Recent Labs Recent Labs Lab 10/12/20 0410 WBC 4.77 HGB 10.0* HCT 29.2* PLT 358 Recent Labs Lab 06/15/20 0410 NA 138 K 3.6 CL 105 CO2 27 BUN 18 CALCIUM 8.9 No results for input(s): INR in the last 168 hours. Recent Radiology Results No results found. Discharge Information: Follow up: Current active diet order is: Diet Diet general; Effective Now Myrna Heath MD [address] [facility] [place] [id number] In 2 weeks Discharge Medications New Medications Details famotidine 20 mg tablet Take 1 tablet by mouth 2 times daily. aka: PEPCID Unchanged Medications Details acetaminophen 500 mg tablet Take 1,000 mg by mouth every 6 hours as needed for Pain. aka: TYLENOL acyclovir 200 mg capsule Take 4 capsules by mouth 2 times daily. Indications: Herpes Zoster Prevention in Immunocom promised aka: ZOVIRAX aluminum & magnesium agajbmbzs-agkgqcyhmnx-pzoaexmbynKSLBF-lidocaine Swish and spit 15 mLs every 4 hours as needed for Sore Throat. benzonatate 100 mg capsule Take 100 mg by mouth 3 times daily as needed for Cough. aka: TESSALON zgtefnwjjnqrgwe-cjtlghzaoafzqn-bisjyghu suspension Swish and spit 10 mLs 4 times daily. aka: ANIL MOUTHWASH lidocaine-prilocaine cream Apply generously to port site and cover with tegaderm or saran wrap 1 hour prior to chemo. . aka: EMLA NICOTINE TD Place onto the skin. ondansetron 4 mg disintegrating tablet Take 1 tablet by mouth every 6 hours as needed for Nausea. aka: ZOFRAN ODT . Disposition: home Condition: Stable Code Status: Full Code Discharge took 30 minutes, to include final examination, discussion of admission, and prepa ration of prescriptions, instructions for on-going care, follow-up and documentation of disc harge summary. Bob Galvez MD 10:02 AM PDT 06/15/2020 documented in thi s encounter Discharge Instructions Instructions Lisa Nickerson ARNP - . White cell shot at [facility] on June 17. Please schedule. 2. Blood work in 1 week around June 22 at [facility]. 3. Please keep track of your numbness and tingling (when it starts, when it stops). Discuss at next appointment. 4.You may take ondansetron (Zofran) alternating with prochlorperzine (compazine) if you exp erience nausea. Zofran may cause headache or constipation. Compazine may make you sleepy. 5. Please make sure you drink plenty of fluids. 6. You must contact the clinic, call the provider enterprise application analyst and/or seek immediate medical ca re for fever greater than 100.4 degrees and/or signs of infection or uncontrolled symptoms. 7. If you have non-urgent questions about your care, treatment or symptoms and desire to sp eak with an oncology nurse, our Triage Nurse at [facility] Hematology & Oncology can be r eached during normal business hours at [phone]. documented in this encounter Medications at Time [...] Sore | | | | | | z-ksxiqmlphjXQDFE-jb | Throat. | | | | | [...] + +---------+ + + | famotidine | Take 1 tablet by | 60 | 3 | 06/15/20 | | | (PEPCID) 20 mg | mouth 2 times daily. | tablet | | 20 | | | tablet | | | [...] documented as of this encounter Progress Notes Lisa Nickerson ARNP - 06/15/2020 9:36 AM PDTFormatting of this note might be diffe rent from the original. [facility] Service: Hematology and Oncology Progress Note Hospital Day: LOS: 5 days Patient Summary: Mr.Dylan Bernard Villarreal a 30 year oldmalewith no significant past medical history other than tobacco use (1/2-1 pack/day [id number]) who began experiencing cough, pleuritic ch est pain, dyspnea on exertion and URI symptoms beginning October 2019. He was initially t reated with antibiotics by his PCP with minimal improvement of symptoms. CT scan of the est onFebruary revealed a large cavitary lesion [...] IV (given as d ay 0 of DA-R-EPOCH)and receivedthe chemotherapy portion of DA-R-EPOCH between April 09 -2019as follows: Rituximab 375 mg/m IV day -3 cycle 1; Etoposide 50 mg/m IV contin uous infusion days 1 4; Vincristine 0.4 mg/m IV continuous infusion days 1 4; Doxorubi josselyn 10 mg/m IV continuous infusion days 1 4; Cyclophosphamide 750 mg/m IV day 5; Predn isone 60mg/m2 (120mgper Dr. Jeff) PO days 1-5 on a 21 day cycle. He received cycle 2 between April 30 2020 with 20% dose adjustment and etop oside, doxorubicin and cyclophosphamide. He completed cycle 3 between May 20 and 2019 with a 20% dose increase in etoposide, doxorubicin, and cyclophosphamide per p rotocol. He received cycle 4, "day 0" of rituximab on June 08, 2020. He is currently admitted to receive qrdzn7jw DA-R-EPOCH with dose adjustment by 20% for etoposide, doxorubicin and c yclophosphamide. SUBJECTIVE Events Overnight: The patient feels better this morning compared to the weekend. He is con tinued with nausea but less vomiting. He was able to eat breakfast this morning. He does r eport that he had a severe migraine between cycles but no headache currently. He does repor t "worsening vision" with blurred vision but no diplopia. No stiff neck. He reports he had left-sided hand paresthesias that lasted 4 days after the last cycle. OBJECTIVE Scheduled Medications acyclovir 800 mg Oral BID cyclophosphamide (CYTOXAN) infusion 1,296 mg/m2 (Treatment Plan Recorded) Intravenous Once DOXOrubicin with etoposide and vinCRIStine infusion 17.28 mg/m2/day (Treatment Plan Re corded) Intravenous Q24H enoxaparin 40 mg Subcutaneous Q24H famotidine 20 mg Oral BID palonosetron with dexamethasone IVPB 0.25 mg Intravenous Once predniSONE 120 mg Oral Daily sodium chloride 0.9% 500 mL Intravenous Once sodium chloride 0.9% 500 mL Intravenous Once sucralfate 1 g Oral 4x Daily AC and HS Continuous Infusions sodium chloride 0.9% 100 mL/hr at 06/14/20 195 PRN Medications acetaminophen, albuterol, kykbcmjbfgLIZRW-tailph-idroksbhr mouthwash (ADS admixture), benzo natate, diphenhydrAMINE, docusate sodium, EPINEPHrine, famotidine, heparin, LORazepam, methy lPREDNISolone sodium succinate, ondansetron, ondansetron, promethazine, rizatriptan, senna, sodium chloride 0.9%, sodium chloride 0.9%, sodium chloride 0.9% Physical Exam Vital Signs: BP 118/59 | Pulse 112 | Temp 36.7 C (98.1 F) (Oral) | Resp 17 | Ht 1.8 03 m (5' 11") | Wt 98.6 kg (217 lb 6 oz) | SpO2 96% | BMI 30.32 kg/m General: Alert and oriented. In no acute distress. Affect appropriate. Skin: Warm, dry and intact without rashes or ulcers. HEENT: Conjunctivae are clear. Sclera anicteric. Oral mucosa is moist and pink without les ions or evidence of thrush. Neck: Supple, without thyroid enlargement or jugular vein distention. Pulmonary: I do not appreciate any wheezes, rales, or rhonchi. Respiratory effort relaxed. Cardiovascular: Regular rate and rhythm. I do not appreciate any murmurs, gallops, or rubs . Gastrointestinal: Abdomen is soft, nondistended, nontender. No masses are appreciated. No hepatosplenomegaly. Active bowel tones in all 4 quadrants. Lymphatics: There is no cervical, supraclavicular, axillary, or inguinal adenopathy. Musculoskeletal: No peripheral edema. Joints are without edema, erythema, warmth, or defor mity. Psychiatric: No signs of depression or anxiety. Maintains good eye contact, asks appropria te questions, remains fully engaged. Lab Data Recent Labs Lab 06/15/20 0410 06/14/20 0342 06/13/20 0300 06/12/20 0359 06/11/20 0356 WBC 4.77 8.37 11.59* 15.47* 10.04 RBC 3.30* 3.28* 3.37* 3.56* 3.30* HGB 10.0* 10.0* 10.1* 10.6* 9.8* HCT 29.2* 29.4* 30.4* 32.8* 30.3* MCV 88.5 89.6 90.2 92.1 91.8 MCH 30.3 30.5 30.0 29.8 29.7 MCHC 34.2 34.0 33.2 32.3 32.3 PLT 358 350 374 385 311 MPV 9.4 9.3 9.5 9.5 9.7 Recent Labs Lab 06/15/20 0410 06/14/20 0342 06/13/20 0300 06/12/20 0359 06/11/20 0356 NA 138 137 138 138 141 K 3.6 3.7 3.9 3.9 4.0 CL 105 104 108 105 110* CO2 27 26 26 25 26 ANIONGAP 10 11 8 12 9 BUN 18 17 17 14 14 ALKPHOS 62 62 72 -- 72 ALT 26 13 23 -- 18 AST 9* 12 9* -- 19 EGFR >60 >60 >60 >60 >60 PHOS -- -- -- -- 4.6 MG -- -- -- -- 1.9 Medical Imaging No results found for this or any previous visit (from the past 360 hour(s)). 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 He jdipsgrlyBV-W-BVULN April 09-2019 and is now admitted for cycle 4 with escalation of dosages per protocol. He received Rituximab in the outpatient settingOctober 5 and the cytotoxic portion of t reatment beginningtoday with 20% increase in etoposide, doxorubicin and cyclophosphamide. Encounter for chemotherapy The patientinitiated treatmentOctober 2019 with dose adjusted R-EPOCH as follows: Rituximab 375 mg/m IV day 0 (Given June 08) Mxysxkjpq49.4mg/m IV continuous infusion days 1 4 Vincristine 0.4 mg/m IV continuous infusion days 1 4 Doxorubicin 17.28mg/m IV continuous infusion days 1 4 Hwzyyrvkrmwbgvhx3681 mg/m IV day 5 Prednisone 60mg/m2 (120mgper Dr. Jeff) PO days 1-5 On a 21 day cycle The patient will receive GCSF following treatment. Will schedule GCSF at [facility] for O ct 14 (will finish chemo evening Jun 15) Today is uswyv0hdk1.He will complete chemotherapy this evening. White cell growt h factor has been scheduled at [facility] for June 17. Anemia Dqwnxvxedp13. No intervention required. Infectious prophylaxis Acyclovir 800mg PO BID for viral prophylaxis Nausea On Zofran and Phenergan. Patient may also receive lorazepam as needed. GERD On famotidine and carafate. Headache/migraine with blurred vision The fact that the symptoms resolved are a bit reassuring. However given his change in visi on, I will obtain an MRI of the brain with and without contrast prior to discharge. Paresthesias Intermittent left hand tingling. Again, MRI of the brain. Vincristine may also result in paresthesias but it is unusual for it to affect only one side. I have encouraged the jessikaen scotty to keep a log and to notify us at the next clinic appointment if he has recurrence the par esthesias and how long they last. MRI of the brain today with and without contrast. He then may be discharged. He is remind ed to get lab work on June 22 to evaluate his ubaldo for adjustment in his next cycle of chemotherapy. He will also require white cell growth factor which is been scheduled at [facility]. ADDENDUM: 1330. The patient called me back into the room upset stating that "three other do ctors told me not to worry about the headaches and at the drop of a hat, you are making me g et an MRI." I explained to him that given his persistent symptoms and the fact that he voic ed concern about it, I think it castle to investigate with a one time scan. Asad is quite fru strated and requests me to cancel the order and his girlfriend at the bedside concurs. The o rder has been cancelled. I did tell him that should he have recurrent symptoms and/or urban e his mind, he should let us know and it can be completed as an outpatient. Code Status: Full Code KOLE Goetz 06/15/2020 9:36 AM [facility] Hematology & Oncology Portions of this chart may have been created with voice recognition software. Occasional wr mak-word or "sound-alike" substitutions may have occurred, even after review, due to the inh erent limitations of voice recognition software. Please read the chart carefully and recogni ze, using context, where these substitutions have occurred. Personal communication is reques akbar for any clarifications. Bob Lizarraga MD - 06/14/2020 1:36 PM PDTFormatting of this note might be different from the [facility] Service: Hospitalist Progress Note Pt: Asad Longo AGE/SEX: 30 y.o. male ROOM: 6624/6624-01 : 1990 PCP: Myrna Mejia MD ADMIT DATE: 06/10/2020 TODAY'S DATE: 06/14/2020 Hospital Day/Hospital Course: LOS: 4 days SUBJECTIVE: Patient seen and examine. Nausea improved with Ativan, he denies pain, no constipation. Scheduled Medications: acyclovir 800 mg Oral BID dexamethasone (DECADRON) IVPB 10 mg Intravenous Once DOXOrubicin with etoposide and vinCRIStine infusion 17.28 mg/m2/day (Treatment Plan Re corded) Intravenous Q24H DOXOrubicin with etoposide and vinCRIStine infusion 17.28 mg/m2/day (Treatment Plan Re corded) Intravenous Q24H enoxaparin 40 mg Subcutaneous Q24H famotidine 20 mg Oral BID predniSONE 120 mg Oral Daily sucralfate 1 g Oral 4x Daily AC and HS Continuous Infusions sodium chloride 0.9% 100 mL/hr at 06/14/20 0844 PRN Medications acetaminophen, albuterol, pyjnhyfgadIBWTU-cnumok-ocrhnmvxn mouthwash (ADS admixture), benzo natate, diphenhydrAMINE, docusate sodium, EPINEPHrine, famotidine, heparin, LORazepam, methy lPREDNISolone sodium succinate, ondansetron, ondansetron, promethazine, rizatriptan, senna, sodium chloride 0.9%, sodium chloride 0.9%, sodium chloride 0.9% Allergy: No Known Allergies OBJECTIVE: Vitals: Temp: [36.5 C (97.7 F)-36.9 C (98.4 F)] 36.8 C (98.2 F) Pulse: [83-99] 95 Resp: [14-16] 15 BP: (111-138)/(57-80) 133/71 I&O Detailed Table: Intake/Output Summary (Last 24 hours) at 06/14/2020 1336 Last data filed at 06/14/2020 1108 Gross per 24 hour Intake 2248 ml Output 3025 ml Net -777 ml Patient Vitals for the past 96 hrs: Weight 06/14/20 0806 98.6 kg (217 lb 6 oz) 06/13/20 0708 98.5 kg (217 lb 2.5 oz) 06/10/20 1934 103.2 kg (227 lb 8.2 oz) Physical Examination: Constitutional: Alert and oriented to person, place, and time. HEENT: Neck supple, no JVD, non icteric sclera. Cardiovascular: Normal rate, regular rhythm, normal heart sounds with S1 and S2, and intact distal pulses. Exam reveals no gallop and no friction rub. No murmur heard. Pulmonary/Chest: Effort normal and breath sounds normal. No stridor. No respiratory distres s. no wheezes. no rales. exhibits no tenderness. Abdominal: Soft. Bowel sounds are normal. exhibits no distension and no mass. There is no t enderness. There is no rebound and no guarding. Extremeties/Musculoskeletal: Normal range of motion.exhibits no tenderness. exhibits no ed michelle. Normal equal peripheral pulses. Neurological: Alert and oriented to person, place, and time. No cranial nerve deficit. E xhibits normal muscle tone. No gross motor deficits. Skin: Skin is warm. No pallor. Patient has normal capillary refill, no mottling. Psychiatric: Has a normal mood and affect. Behavior is normal. Judgment normal. LABS: Recent Labs 06/14/2034106/13/20299 WBC 8.37 11.59* HGB 10.0* 10.1* HCT 29.4* 30.4* PLT 350 374 MCV 89.6 90.2 Recent Labs Lab 06/14/2034106/13/20 03006/12/20 0359 06/11/20 0356 NA 137 138 138 141 K 3.7 3.9 3.9 4.0 CL 104 108 105 110* CO2 26 26 25 26 ANIONGAP 11 8 12 9 BUN 17 17 14 14 CREA 0.71 0.80 0.71 0.76 CALCIUM 9.0 8.8 9.6 8.9 ALBUMIN 4.1 3.3* -- 4.2 ALKPHOS 62 72 -- 72 ALT 13 23 -- 18 AST 12 9* -- 19 MG -- -- -- 1.9 PHOS -- -- -- 4.6 Recent Labs 06/14/20 0342 06/13/20 0300 06/12/20 0359 GLU 108* 114* 118* No results for input(s): TROPONIN, BNP in the last 72 hours. No results for input(s): PROTIME, INR, PTT in the last 168 hours. No results for input(s): IRON, TIBC, PCTSAT, FERRITIN, TSH, [id number], FOLATE in the last 168 hours. No results for input(s): LACTATE, PROCALCITONI, CRP, ESR in the last 168 hours. No results for input(s): AMYLASE, LIPASE in the last 168 hours. No results for input(s): TRIG, CHOL, HDL, LDL in the last 168 hours. No results for input(s): AMMONIA in the last 168 hours. No results found. <NWCOMORBIDITIES> PROBLEM LIST Principal Problem: Admission for antineoplastic chemotherapy Active Problems: Diffuse large B-cell lymphoma of lymph nodes of multiple regions ASSESSMENT & PLAN 1. 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 admit for chemo 4th Cycle-1-5 EPOCH. Started Rituxan on Jun as out patient IVF NS at 100 cc/h, monitor daily labs On Acycolvir for prophylaxis 2. Nausea, uncontrolled, better with Ativan. Continue Pepcid as it seems to improve symptoms. 3. DVT prophylaxis Lovenox Bob Galvez MD 06/14/2020 1:36 PM PDT Wilton Stuart MD - 06/14/2020 9:49 AM PDT [facility] Service: Hematology and Oncology Progress Note Hospital Day: LOS: 4 days Patient Summary: Mr.Dylan Bernard Villarreal a 30 year oldmalewith no significant past medical history other than tobacco use (1/2-1 pack/day [id number]) who began experiencing cough, pleuritic ch est [...] IV (given as d ay 0 of DA-R-EPOCH)and receivedthe chemotherapy portion of DA-R-EPOCH between April 09 -2019as follows: Rituximab 375 mg/m IV day -3 cycle 1; Etoposide 50 mg/m IV contin uous infusion days 1 4; Vincristine 0.4 mg/m IV continuous infusion days 1 4; Doxorubi josselyn 10 mg/m IV continuous infusion days 1 4; Cyclophosphamide 750 mg/m IV day 5; Predn isone 60mg/m2 (120mgper Dr. Jeff) PO days 1-5 on a 21 day cycle. He received cycle 2 between April 30 2020 with 20% dose adjustment and etop oside, doxorubicin and cyclophosphamide. He completed cycle 3 between May 20 and 2019 with a 20% dose increase in etoposide, doxorubicin, and cyclophosphamide per p rotocol. He received cycle 4, "day 0" of rituximab on June 08, 2020. He is currently admitted to receive ncgpm5rv DA-R-EPOCH with dose adjustment by 20% for etoposide, doxorubicin and c yclophosphamide. SUBJECTIVE Events Overnight: The patient developed tachycardia and restlessness after receiving prochl orperazine yesterday. He received 1 dose of Ativan which resolved his symptoms. The patien t states that he feels better today than yesterday. He reports no new or unusual symptoms o therwise. He is eager to go home tomorrow. OBJECTIVE Scheduled Medications acyclovir 800 mg Oral BID dexamethasone (DECADRON) IVPB 10 mg Intravenous Once DOXOrubicin with etoposide and vinCRIStine infusion 17.28 mg/m2/day (Treatment Plan Re corded) Intravenous Q24H DOXOrubicin with etoposide and vinCRIStine infusion 17.28 mg/m2/day (Treatment Plan Re corded) Intravenous Q24H enoxaparin 40 mg Subcutaneous Q24H famotidine 20 mg Intravenous Q12H predniSONE 120 mg Oral Daily sucralfate 1 g Oral 4x Daily AC and HS Continuous Infusions sodium chloride 0.9% 100 mL/hr at 06/14/20 0844 PRN Medications acetaminophen, albuterol, veadflnuuoHCGYG-spddyo-ucrhskgnr mouthwash (ADS admixture), benzo natate, diphenhydrAMINE, docusate sodium, EPINEPHrine, famotidine, heparin, LORazepam, methy lPREDNISolone sodium succinate, ondansetron, ondansetron, promethazine, rizatriptan, senna, sodium chloride 0.9%, sodium chloride 0.9%, sodium chloride 0.9% Physical Exam Vital Signs: BP 138/80 | Pulse 99 | Temp 36.8 C (98.3 F) (Oral) | Resp 16 | Ht 1.80 3 m (5' 11") | Wt 98.6 kg (217 lb 6 oz) | SpO2 98% | BMI 30.32 kg/m General: Alert a nd oriented. In no acute distress. Affect appropriate. Skin: Warm, dry and intact without rashes or ulcers. HEENT: Conjunctivae are clear. Sclera anicteric. Oral mucosa is moist and pink without les ions or evidence of thrush. Neck: Supple, without thyroid enlargement or jugular vein distention. Pulmonary: I do not appreciate any wheezes, rales, or rhonchi. Respiratory effort relaxed. Cardiovascular: Regular rate and rhythm. I do not appreciate any murmurs, gallops, or rubs . Gastrointestinal: Abdomen is soft, nondistended, nontender. No masses are appreciated. No hepatosplenomegaly. Active bowel tones in all 4 quadrants. Lymphatics: There is no cervical, supraclavicular, axillary, or inguinal adenopathy. Musculoskeletal: No peripheral edema. Joints are without edema, erythema, warmth, or defor mity. Peripheral pulses intact. No cyanosis or varicosities. Psychiatric: No signs of depression or anxiety. Maintains good eye contact, asks appropria te questions, remains fully engaged. Lab Data Recent Labs Lab 06/14/20 0342 [id number]/11/2035506/08/20 0755 WBC 8.37 11.59* 15.47* 10.04 17.72* RBC 3.28* 3.37* 3.56* 3.30* 3.68* HGB 10.0* 10.1* 10.6* 9.8* 11.0* HCT 29.4* 30.4* 32.8* 30.3* 33.0* MCV 89.6 90.2 92.1 91.8 89.6 MCH 30.5 30.0 29.8 29.7 29.9 MCHC 34.0 33.2 32.3 32.3 33.3 PLT 350 374 385 311 308 MPV 9.3 9.5 9.5 9.7 7.3 Recent Labs Lab 06/14/2034106/13/2029906/12/2035806/11/2035506/08/20 0755 NA 137 138 138 141 138 K 3.7 3.9 3.9 4.0 4.0 CL 104 108 105 110* 103 CO2 26 26 25 26 25 ANIONGAP 11 8 12 9 14 BUN 17 17 14 14 16 ALKPHOS 62 72 -- 72 90 ALT 13 23 -- 18 21 AST 12 9* -- 19 17 EGFR >60 >60 >60 >60 >60 PHOS -- -- -- 4.6 -- MG -- -- -- 1.9 -- Medical Imaging No results found for this or any previous visit (from the past 360 hour(s)). 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 He ondlcxzpvUA-G-XXVUC April 09-2019 and is now admitted for cycle 4 with escalation of dosages per protocol. He received Rituximab in the outpatient settingOctober 5 and the cytotoxic portion of t reatment beginningtoday with 20% increase in etoposide, doxorubicin and cyclophosphamide. Encounter for chemotherapy The patientinitiated treatmentOctober 2019 with dose adjusted R-EPOCH as follows: Rituximab 375 mg/m IV day 0 (Given June 08) Hhdxjysuz86.4mg/m IV continuous infusion days 1 4 Vincristine 0.4 mg/m IV continuous infusion days 1 4 Doxorubicin 17.28mg/m IV continuous infusion days 1 4 Injnqcvgqilwtnog2473 mg/m IV day 5 Prednisone 60mg/m2 (120mgper Dr. Jeff) PO days 1-5 On a 21 day cycle The patient will receive GCSF following treatment. Will schedule GCSF at [facility] for O ct 14 (will finish chemo evening Jun 15) Today is ogmdn9iaw4. Anemia Jrhjfjkems60. No intervention required. Infectious prophylaxis Acyclovir 800mg PO BID for viral prophylaxis Nausea On Zofran and Phenergan. Patient may also receive lorazepam as needed. GERD On famotidine and carafate. Code Status: Full Code Wilton Jeff MD 06/14/2020 9:49 AM PDT [facility] Hematology & Oncology Portions of this chart may have been created with voice recognition software. Occasional wr mak-word or "sound-alike" substitutions may have occurred, even after review, due to the inh erent limitations of voice recognition software. Please read the chart carefully and recogni ze, using context, where these substitutions have occurred. Personal communication is reques akbar for any clarifications. Bob Lizarraga MD - 06/13/2020 1:39 PM PDT [facility] Service: Hospitalist Progress Note Pt: Asad Longo AGE/SEX: 30 y.o. male ROOM: 6624/6624-01 : 1990 PCP: Myrna Mejia MD ADMIT DATE: 06/10/2020 TODAY'S DATE: 06/13/2020 Hospital Day/Hospital Course: LOS: 3 days SUBJECTIVE: Patient seen and examine. Nausea is slightly better, but has poor oral intake, advised to h ave Phenrgan prior to meals. Scheduled Medications: acyclovir 800 mg Oral BID dexamethasone (DECADRON) IVPB 10 mg Intravenous Once DOXOrubicin with etoposide and vinCRIStine infusion 17.28 mg/m2/day (Treatment Plan Re corded) Intravenous Q24H enoxaparin 40 mg Subcutaneous Q24H famotidine 20 mg Intravenous Q12H predniSONE 120 mg Oral Daily sucralfate 1 g Oral 4x Daily AC and HS Continuous Infusions sodium chloride 0.9% 100 mL/hr at 06/12/20 1301 PRN Medications acetaminophen, albuterol, cnyahdkxqhIYIXT-jycuzj-lyoczopsw mouthwash (ADS admixture), benzo natate, diphenhydrAMINE, docusate sodium, EPINEPHrine, famotidine, heparin, LORazepam, methy lPREDNISolone sodium succinate, ondansetron, ondansetron, prochlorperazine, rizatriptan, sen na, sodium chloride 0.9%, sodium chloride 0.9%, sodium chloride 0.9% Allergy: No Known Allergies OBJECTIVE: Vitals: Temp: [36.8 C (98.2 F)-37.1 C (98.7 F)] 36.8 C (98.2 F) Pulse: [94-114] 114 Resp: [16-17] 16 BP: (115-134)/(62-79) 119/62 I&O Detailed Table: Intake/Output Summary (Last 24 hours) at 06/13/2020 1339 Last data filed at 06/13/2020 0817 Gross per 24 hour Intake 3316 ml Output 1400 ml Net 1916 ml Patient Vitals for the past 96 hrs: Weight 06/13/20 0708 98.5 kg (217 lb 2.5 oz) 06/10/20 1934 103.2 kg (227 lb 8.2 oz) Physical Examination: Constitutional: Alert and oriented to person, place, and time. HEENT: Neck supple, no JVD, non icteric sclera. Cardiovascular: Normal rate, regular rhythm, normal heart sounds with S1 and S2, and intact distal pulses. Exam reveals no gallop and no friction rub. No murmur heard. Pulmonary/Chest: Effort normal and breath sounds normal. No stridor. No respiratory distres s. no wheezes. no rales. exhibits no tenderness. Abdominal: Soft. Bowel sounds are normal. exhibits no distension and no mass. There is no t enderness. There is no rebound and no guarding. Extremeties/Musculoskeletal: Normal range of motion.exhibits no tenderness. exhibits no ed michelle. Normal equal peripheral pulses. Neurological: Alert and oriented to person, place, and time. No cranial nerve deficit. E xhibits normal muscle tone. No gross motor deficits. Skin: Skin is warm. No pallor. Patient has normal capillary refill, no mottling. Psychiatric: Has a normal mood and affect. Behavior is normal. Judgment normal. LABS: Recent Labs 06/13/2029906/12/20358 WBC 11.59* 15.47* HGB 10.1* 10.6* HCT 30.4* 32.8* PLT 374 385 MCV 90.2 92.1 Recent Labs Lab 06/13/2029906/12/2035806/11/2035506/08/20 0755 NA 138 138 141 138 K 3.9 3.9 4.0 4.0 CL 108 105 110* 103 CO2 26 25 26 25 ANIONGAP 8 12 9 14 BUN 17 14 14 16 CREA 0.80 0.71 0.76 0.82 CALCIUM 8.8 9.6 8.9 9.5 ALBUMIN 3.3* -- 4.2 4.6 ALKPHOS 72 -- 72 90 ALT 23 -- 18 21 AST 9* -- 19 17 MG -- -- 1.9 -- PHOS -- -- 4.6 -- Recent Labs 06/13/2029906/12/2035806/11/20355 GLU 114* 118* 90 No results for input(s): TROPONIN, BNP in the last 72 hours. No results for input(s): PROTIME, INR, PTT in the last 168 hours. No results for input(s): IRON, TIBC, PCTSAT, FERRITIN, TSH, [id number], FOLATE in the last 168 hours. No results for input(s): LACTATE, PROCALCITONI, CRP, ESR in the last 168 hours. No results for input(s): AMYLASE, LIPASE in the last 168 hours. No results for input(s): TRIG, CHOL, HDL, LDL in the last 168 hours. No results for input(s): AMMONIA in the last 168 hours. No results found. <NWCOMORBIDITIES> PROBLEM LIST Principal Problem: Admission for antineoplastic chemotherapy Active Problems: Diffuse large B-cell lymphoma of lymph nodes of multiple regions ASSESSMENT & PLAN 1. 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 admit for chemo 4th Cycle-1-5 EPOCH. Started Rituxan on Jun as out patient IVF NS at 100 cc/h, monitor daily labs On Acycolvir for prophylaxis 2. Nausea, uncontrolled, added Phenergan IV PRN. Advised to take prior to Meals. 3. DVT prophylaxis Lovenox Bob Galvez MD 06/13/2020 1:39 PM PDT ilton Jeff MD - 06/13/2020 9:33 AM PDT [facility] Service: Hematology and Oncology Progress Note Hospital Day: LOS: 3 days Patient Summary: Mr.Dylan Bernard Villarreal a 30 year oldmalewith no significant past medical history other than tobacco use (1/2-1 pack/day [id number]) who began experiencing cough, pleuritic ch est [...] IV (given as d ay 0 of DA-R-EPOCH)and receivedthe chemotherapy portion of DA-R-EPOCH between April 09 -2019as follows: Rituximab 375 mg/m IV day -3 cycle 1; Etoposide 50 mg/m IV contin uous infusion days 1 4; Vincristine 0.4 mg/m IV continuous infusion days 1 4; Doxorubi josselyn 10 mg/m IV continuous infusion days 1 4; Cyclophosphamide 750 mg/m IV day 5; Predn isone 60mg/m2 (120mgper Dr. Jeff) PO days 1-5 on a 21 day cycle. He received cycle 2 between April 30 2020 with 20% dose adjustment and etop oside, doxorubicin and cyclophosphamide. He completed cycle 3 between May 20 and 2019 with a 20% dose increase in etoposide, doxorubicin, and cyclophosphamide per p rotocol. He received cycle 4, "day 0" of rituximab on June 08, 2020. He is currently admitted to receive iozib0eh DA-R-EPOCH with dose adjustment by 20% for etoposide, doxorubicin and c yclophosphamide. SUBJECTIVE Events Overnight: Asad experienced worsened nausea and vomiting yesterday. This morning, he feels better. He reports no new or unusual symptoms and denies any pain. He has no oth er complaints today other than that listed in the review of systems. OBJECTIVE Scheduled Medications acyclovir 800 mg Oral BID dexamethasone (DECADRON) IVPB 10 mg Intravenous Once DOXOrubicin with etoposide and vinCRIStine infusion 17.28 mg/m2/day (Treatment Plan Re corded) Intravenous Q24H enoxaparin 40 mg Subcutaneous Q24H famotidine 20 mg Intravenous Q12H predniSONE 120 mg Oral Daily sucralfate 1 g Oral 4x Daily AC and HS Continuous Infusions sodium chloride 0.9% 100 mL/hr at 06/12/20 1301 PRN Medications acetaminophen, albuterol, ebrkvyrjurJJSYF-vzvrrt-xqsxdruky mouthwash (ADS admixture), benzo natate, diphenhydrAMINE, docusate sodium, EPINEPHrine, famotidine, heparin, LORazepam, methy lPREDNISolone sodium succinate, ondansetron, ondansetron, prochlorperazine, rizatriptan, sen na, sodium chloride 0.9%, sodium chloride 0.9%, sodium chloride 0.9% Physical Exam Vital Signs: BP 134/79 | Pulse 106 | Temp 36.9 C (98.5 F) (Oral) | Resp 17 | Ht 1.8 03 m (5' 11") | Wt 98.5 kg (217 lb 2.5 oz) | SpO2 96% | BMI 30.29 kg/m General: Aler t and oriented. In no acute distress. Affect appropriate. Skin: Warm, dry and intact without rashes or ulcers. HEENT: Conjunctivae are clear. Sclera anicteric. Oral mucosa is moist and pink without les ions or evidence of thrush. Neck: Supple, without thyroid enlargement or jugular vein distention. Pulmonary: I do not appreciate any wheezes, rales, or rhonchi. Respiratory effort relaxed. Cardiovascular: Regular rate and rhythm. I do not appreciate any murmurs, gallops, or rubs . Gastrointestinal: Abdomen is soft, nondistended, nontender. No masses are appreciated. No hepatosplenomegaly. Active bowel tones in all 4 quadrants. Lymphatics: There is no cervical, supraclavicular, axillary, or inguinal adenopathy. Musculoskeletal: No peripheral edema. Joints are without edema, erythema, warmth, or defor mity. Peripheral pulses intact. No cyanosis or varicosities. Psychiatric: No signs of depression or anxiety. Maintains good eye contact, asks appropria te questions, remains fully engaged. Lab Data Recent Labs Lab 06/13/2029906/12/2035806/11/2035506/08/205 WBC 11.59* 15.47* 10.04 17.72* RBC 3.37* 3.56* 3.30* 3.68* HGB 10.1* 10.6* 9.8* 11.0* HCT 30.4* 32.8* 30.3* 33.0* MCV 90.2 92.1 91.8 89.6 MCH 30.0 29.8 29.7 29.9 MCHC 33.2 32.3 32.3 33.3 PLT 374 385 311 308 MPV 9.5 9.5 9.7 7.3 Recent Labs Lab 06/13/2029906/12/2035806/11/2035506/08/20 0755 NA 138 138 141 138 K 3.9 3.9 4.0 4.0 CL 108 105 110* 103 CO2 26 25 26 25 ANIONGAP 8 12 9 14 BUN 17 14 14 16 ALKPHOS 72 -- 72 90 ALT 23 -- 18 21 AST 9* -- 19 17 EGFR >60 >60 >60 >60 PHOS -- -- 4.6 -- MG -- -- 1.9 -- Medical Imaging No results found for this or any previous visit (from the past 360 hour(s)). 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 He zjyqtamesPQ-N-QAOBS April 09-2019 and is now admitted for cycle 4 with escalation of dosages per protocol. He received Rituximab in the outpatient settingOctober 5 and the cytotoxic portion of t reatment beginningtoday with 20% increase in etoposide, doxorubicin and cyclophosphamide. Encounter for chemotherapy The patientinitiated treatmentOctober 2019 with dose adjusted R-EPOCH as follows: Rituximab 375 mg/m IV day 0 (Given June 08) Fczhbmxzz23.4mg/m IV continuous infusion days 1 4 Vincristine 0.4 mg/m IV continuous infusion days 1 4 Doxorubicin 17.28mg/m IV continuous infusion days 1 4 Ruqkhqqwpwslgvdj7262 mg/m IV day 5 Prednisone 60mg/m2 (120mgper Dr. Jeff) PO days 1-5 On a 21 day cycle The patient will receive GCSF following treatment. Will schedule GCSF at [facility] for O ct 14 (will finish chemo evening Jun 15) Today is [id number]. Anemia Erbbdbilax72.1 with hematocrit 32.8. No intervention required. Infectious prophylaxis Acyclovir 800mg PO BID for viral prophylaxis Nausea On Zofran and Compazine. Patient may also receive lorazepam as needed. GERD On famotidine and carafate. Code Status: Full Code Wilton Jeff MD 06/13/2020 9:51 AM [facility] Hematology & Oncology Portions of this chart may have been created with voice recognition software. Occasional wr mak-word or "sound-alike" substitutions may have occurred, even after review, due to the inh erent limitations of voice recognition software. Please read the chart carefully and recogni ze, using context, where these substitutions have occurred. Personal communication is reques akbar for any clarifications. Bob Lizarraga MD - 06/12/2020 1:28 PM PDT [facility] Service: Hospitalist Progress Note Pt: Asad Longo AGE/SEX: 30 y.o. male ROOM: 6624/6624-01 : 1990 PCP: Myrna Mejia MD ADMIT DATE: 06/10/2020 TODAY'S DATE: 06/12/2020 Hospital Day/Hospital Course: LOS: 2 days SUBJECTIVE: Patient seen and examine. Continue to have nausea not controlled with Zofran, agreed to try Phenergan. Scheduled Medications: acyclovir 800 mg Oral BID dexamethasone (DECADRON) IVPB 10 mg Intravenous Once DOXOrubicin with etoposide and vinCRIStine infusion 17.28 mg/m2/day (Treatment Plan Re corded) Intravenous Q24H enoxaparin 40 mg Subcutaneous Q24H predniSONE 120 mg Oral Daily Continuous Infusions sodium chloride 0.9% 100 mL/hr at 06/12/20 1301 PRN Medications acetaminophen, albuterol, qbbpahbbzpOWPHP-bngrix-doycfmngr mouthwash (ADS admixture), benzo natate, diphenhydrAMINE, docusate sodium, EPINEPHrine, famotidine, heparin, LORazepam, methy lPREDNISolone sodium succinate, ondansetron, ondansetron, promethazine, rizatriptan, senna, sodium chloride 0.9%, sodium chloride 0.9%, sodium chloride 0.9% Allergy: No Known Allergies OBJECTIVE: Vitals: Temp: [36.5 C (97.7 F)-36.9 C (98.5 F)] 36.7 C (98.1 F) Pulse: [101-122] 107 Resp: [16-18] 16 BP: (113-139)/(61-86) 139/86 I&O Detailed Table: Intake/Output Summary (Last 24 hours) at 06/12/2020 1328 Last data filed at 06/12/2020 1000 Gross per 24 hour Intake 4490 ml Output 2750 ml Net 1740 ml Patient Vitals for the past 96 hrs: Weight 06/10/20 1934 103.2 kg (227 lb 8.2 oz) Physical Examination: Constitutional: Alert and oriented to person, place, and time. HEENT: Neck supple, no JVD, non icteric sclera. Cardiovascular: Normal rate, regular rhythm, normal heart sounds with S1 and S2, and intact distal pulses. Exam reveals no gallop and no friction rub. No murmur heard. Pulmonary/Chest: Effort normal and breath sounds normal. No stridor. No respiratory distres s. no wheezes. no rales. exhibits no tenderness. Abdominal: Soft. Bowel sounds are normal. exhibits no distension and no mass. There is no t enderness. There is no rebound and no guarding. Extremeties/Musculoskeletal: Normal range of motion.exhibits no tenderness. exhibits no ed michelle. Normal equal peripheral pulses. Neurological: Alert and oriented to person, place, and time. No cranial nerve deficit. E xhibits normal muscle tone. No gross motor deficits. Skin: Skin is warm. No pallor. Patient has normal capillary refill, no mottling. Psychiatric: Has a normal mood and affect. Behavior is normal. Judgment normal. LABS: Recent Labs 06/12/2035806/11/20355 WBC 15.47* 10.04 HGB 10.6* 9.8* HCT 32.8* 30.3* PLT 385 311 MCV 92.1 91.8 Recent Labs Lab 06/12/2035806/11/2035506/08/20 0755 NA 138 141 138 K 3.9 4.0 4.0 CL 105 110* 103 CO2 25 26 25 ANIONGAP 12 9 14 BUN 14 14 16 CREA 0.71 0.76 0.82 CALCIUM 9.6 8.9 9.5 ALBUMIN -- 4.2 4.6 ALKPHOS -- 72 90 ALT -- 18 21 AST -- 19 17 MG -- 1.9 -- PHOS -- 4.6 -- Recent Labs 06/12/2035806/11/20355 GLU 118* 90 No results for input(s): TROPONIN, BNP in the last 72 hours. No results for input(s): PROTIME, INR, PTT in the last 168 hours. No results for input(s): IRON, TIBC, PCTSAT, FERRITIN, TSH, JSBUWTIH92, FOLATE in the last 168 hours. No results for input(s): LACTATE, PROCALCITONI, CRP, ESR in the last 168 hours. No results for input(s): AMYLASE, LIPASE in the last 168 hours. No results for input(s): TRIG, CHOL, HDL, LDL in the last 168 hours. No results for input(s): AMMONIA in the last 168 hours. No results found. <NWCOMORBIDITIES> PROBLEM LIST Principal Problem: Admission for antineoplastic chemotherapy Active Problems: Diffuse large B-cell lymphoma of lymph nodes of multiple regions ASSESSMENT & PLAN 1. 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 admit for chemo 4th Cycle-1-5 EPOCH. Started Rituxan on Jun as out patient IVF NS at 100 cc/h, monitor daily labs On Acycolvir for prophylaxis 2. Nausea, uncontrolled, added Phenergan IV PRN. 3. DVT prophylaxis Lovenox Bob Galvez MD 06/12/2020 1:28 PM PDT lmira Nickerson ARNP - 06/12/2020 8:30 AM PDTFormatting of this note might be different from the orig [facility] Service: Hematology and Oncology Progress Note Hospital Day: LOS: 2 days Patient Summary: Mr.Dylan Bernard Villarreal a 30 year oldmalewith no significant past medical history other than tobacco use (1/2-1 pack/day [id number]) who began experiencing cough, pleuritic ch est [...] IV (given as d ay 0 of DA-R-EPOCH)and receivedthe chemotherapy portion of DA-R-EPOCH between April 09 -2019as follows: Rituximab 375 mg/m IV day -3 cycle 1; Etoposide 50 mg/m IV contin uous infusion days 1 4; Vincristine 0.4 mg/m IV continuous infusion days 1 4; Doxorubi josselyn 10 mg/m IV continuous infusion days 1 4; Cyclophosphamide 750 mg/m IV day 5; Predn isone 60mg/m2 (120mgper Dr. Jeff) PO days 1-5 on a 21 day cycle. He received cycle 2 between April 30 2020 with 20% dose adjustment and etop oside, doxorubicin and cyclophosphamide. He completed cycle 3 between May 20 and 2019 with a 20% dose increase in etoposide, doxorubicin, and cyclophosphamide per p rotocol. He received cycle 4, "day 0" of rituximab on June 08, 2020. He is currently admitted to receive grfwj1lz DA-R-EPOCH with dose adjustment by 20% for etoposide, doxorubicin and c yclophosphamide. SUBJECTIVE Events Overnight: Asad denies headache today. He does report he has had increased nausea and has been unable to eat or drink. No constipation or diarrhea. OBJECTIVE Scheduled Medications acyclovir 800 mg Oral BID dexamethasone (DECADRON) IVPB 10 mg Intravenous Once DOXOrubicin with etoposide and vinCRIStine infusion 17.28 mg/m2/day (Treatment Plan Re corded) Intravenous Q24H enoxaparin 40 mg Subcutaneous Q24H predniSONE 120 mg Oral Daily Continuous Infusions sodium chloride 0.9% 100 mL/hr at 06/11/20 1321 PRN Medications acetaminophen, albuterol, veznuqbxveEOVFG-htbguh-bgbhgpgda mouthwash (ADS admixture), benzo natate, diphenhydrAMINE, docusate sodium, EPINEPHrine, famotidine, heparin, LORazepam, methy lPREDNISolone sodium succinate, ondansetron, ondansetron, rizatriptan, senna, sodium chlorid e 0.9%, sodium chloride 0.9%, sodium chloride 0.9% Physical Exam Vital Signs: BP 113/61 | Pulse 113 | Temp 36.8 C (98.2 F) (Oral) | Resp 16 | Ht 1.8 03 m (5' 11") | Wt 103.2 kg (227 lb 8.2 oz) | SpO2 96% | BMI 31.73 kg/m General: Alert and oriented. In no [...] fully engaged. Lab Data Recent Labs Lab 06/12/20 0359 06/11/20 0356 06/08/20 0755 WBC 15.47* 10.04 17.72* RBC 3.56* 3.30* 3.68* HGB 10.6* 9.8* 11.0* HCT 32.8* 30.3* 33.0* MCV 92.1 91.8 89.6 MCH 29.8 29.7 29.9 MCHC 32.3 32.3 33.3 PLT 385 311 308 MPV 9.5 9.7 7.3 Recent Labs Lab 06/12/20 0359 06/11/20 0356 06/08/20 0755 NA 138 141 138 K 3.9 4.0 4.0 CL 105 110* 103 CO2 25 26 25 ANIONGAP 12 9 14 BUN 14 14 16 ALKPHOS -- 72 90 ALT -- 18 21 AST -- 19 17 EGFR >60 >60 >60 PHOS -- 4.6 -- MG -- 1.9 -- Medical Imaging No results found for this or any previous visit (from the past 360 hour(s)). 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 He lrjaqpdywJO-B-YFYHD April 09-2019 and is now admitted for cycle 4 with escalation of dosages per protocol. He received Rituximab in the outpatient settingOctober 5 and the cytotoxic portion of t reatment beginningtoday with 20% increase in etoposide, doxorubicin and cyclophosphamide. Encounter for chemotherapy The patientinitiated treatmentOctober 2019 with dose adjusted R-EPOCH as follows: Rituximab 375 mg/m IV day 0 (Given June 08) Wgxuwbzbr37.4mg/m IV continuous infusion days 1 4 Vincristine 0.4 mg/m IV continuous infusion days 1 4 Doxorubicin 17.28mg/m IV continuous infusion days 1 4 Ilypvkjpatmnggcf5635 mg/m IV day 5 Prednisone 60mg/m2 (120mgper Dr. Jeff) PO days 1-5 On a 21 day cycle The patient will receive GCSF following treatment. Will schedule GCSF at [facility] for O ct 14 (will finish chemo evening Jun 15) Today is eprrv6ffm3. Anemia Ihrlvgayzs21.6 with hematocrit 32.8. No intervention required. Should the patient req uire blood transfusion to keep hemoglobin greater than 8.0, he does not require irradiated b lood products. Infectious prophylaxis Acyclovir 800mg PO BID for viral prophylaxis No need for routine bactrim DS 1 for PJP prophylaxis Nausea Worsened this afternoon. He typically responds well to Lorazepam. I have adjusted his dos e. He may also have Compazine and Zofran. He has had difficulty getting down oral prednisone. Until vomiting is under control, I will give additional dose of IV dexamethasone (18mg is equivalent to 120mg prednisone). GERD Will add famotidine and carafate. Dr. Jeff of an oncological services this weekend. FOLLOW UP 15:00 she has been miserable with vomiting. He apparently had brown emesis thoug h this was not witnessed. Nursing will continue to observe for this. I have added famotidi ne and Carafate and will give IV dexamethasone today equivalent to 120mg prednisone since th e patient was not able to take his oral prednisone Code Status: Full Code Lisa Nickerson, MSN, [employer], [employer]CRAFT DETAIL DRAFTSPERSON-C, AOCNP Oncology Nurse Practitioner 06/12/2020 8:30 AM PDT [facility] Hematology & Oncology Portions of this chart may have been created with voice recognition software. Occasional wr mak-word or "sound-alike" substitutions may have occurred, even after review, due to the inh erent limitations of voice recognition software. Please read the chart carefully and recogni ze, using context, where these substitutions have occurred. Personal communication is reques akbar for any clarifications. Bob Lizarraga MD - 06/11/2020 12:52 PM PDTFormatting of this note might be different from the orig [facility]. [facility] Service: Hospitalist Progress Note Pt: Asad Longo AGE/SEX: 30 y.o. male ROOM: 6624/6624-01 : 1990 PCP: Myrna Mejia MD ADMIT DATE: 06/10/2020 TODAY'S DATE: 06/11/2020 Hospital Day/Hospital Course: LOS: 1 day SUBJECTIVE: Patient seen and examine. Complaint of nausea, he will have PRN Zofran, denies shortness of breath, no chest pain. Scheduled Medications: acyclovir 800 mg Oral BID DOXOrubicin with etoposide and vinCRIStine infusion 17.28 mg/m2/day (Treatment Plan Re corded) Intravenous Q24H enoxaparin 40 mg Subcutaneous Q24H fosaprepitant 150 mg IV Push Once palonosetron with dexamethasone IVPB 0.25 mg Intravenous Once predniSONE 120 mg Oral Daily Continuous Infusions sodium chloride 0.9% 1,000 mL (06/11/20 0347) PRN Medications acetaminophen, albuterol, xtragcwillDTPJT-oxeiqu-tjtzkjajk mouthwash (ADS admixture), benzo natate, diphenhydrAMINE, docusate sodium, EPINEPHrine, famotidine, heparin, methylPREDNISolo ne sodium succinate, ondansetron, ondansetron, rizatriptan, senna, sodium chloride 0.9%, sod ium chloride 0.9%, sodium chloride 0.9% Allergy: No Known Allergies OBJECTIVE: Vitals: Temp: [36.5 C (97.7 F)-36.7 C (98.1 F)] 36.7 C (98.1 F) Pulse: [77-111] 77 Resp: [16-18] 18 BP: (121-135)/(73-86) 135/73 I&O Detailed Table: Intake/Output Summary (Last 24 hours) at 06/11/2020 1252 Last data filed at 06/11/2020 0800 Gross per 24 hour Intake 1269.81 ml Output 900 ml Net 369.81 ml Patient Vitals for the past 96 hrs: Weight 06/10/20 1934 103.2 kg (227 lb 8.2 oz) Physical Examination: Constitutional: Alert and oriented to person, place, and time. HEENT: Neck supple, no JVD, non icteric sclera. Cardiovascular: Normal rate, regular rhythm, normal heart sounds with S1 and S2, and intact distal pulses. Exam reveals no gallop and no friction rub. No murmur heard. Pulmonary/Chest: Effort normal and breath sounds normal. No stridor. No respiratory distres s. no wheezes. no rales. exhibits no tenderness. Abdominal: Soft. Bowel sounds are normal. exhibits no distension and no mass. There is no t enderness. There is no rebound and no guarding. Extremeties/Musculoskeletal: Normal range of motion.exhibits no tenderness. exhibits no ed michelle. Normal equal peripheral pulses. Neurological: Alert and oriented to person, place, and time. No cranial nerve deficit. E xhibits normal muscle tone. No gross motor deficits. Skin: Skin is warm. No pallor. Patient has normal capillary refill, no mottling. Psychiatric: Has a normal mood and affect. Behavior is normal. Judgment normal. LABS: Recent Labs 06/11/20 035 WBC 10.04 HGB 9.8* HCT 30.3* PLT 311 MCV 91.8 Recent Labs Lab 06/11/206 06/08/20 0755 NA 141 138 K 4.0 4.0 CL 110* 103 CO2 26 25 ANIONGAP 9 14 BUN 14 16 CREA 0.76 0.82 CALCIUM 8.9 9.5 ALBUMIN 4.2 4.6 ALKPHOS 72 90 ALT 18 21 AST 19 17 MG 1.9 -- PHOS 4.6 -- Recent Labs 06/11/20 0356 GLU 90 No results for input(s): TROPONIN, BNP in the last 72 hours. No results for input(s): PROTIME, INR, PTT in the last 168 hours. No results for input(s): IRON, TIBC, PCTSAT, FERRITIN, TSH, [id number], FOLATE in the last 168 hours. No results for input(s): LACTATE, PROCALCITONI, CRP, ESR in the last 168 hours. No results for input(s): AMYLASE, LIPASE in the last 168 hours. No results for input(s): TRIG, CHOL, HDL, LDL in the last 168 hours. No results for input(s): AMMONIA in the last 168 hours. No results found. <NWCOMORBIDITIES> PROBLEM LIST Principal Problem: Admission for antineoplastic chemotherapy Active Problems: Diffuse large B-cell lymphoma of lymph nodes of multiple regions ASSESSMENT & PLAN 1. 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 admit for chemo 4th Cycle-1-5 EPOCH. Started Rituxan on Jun as out patient IVF NS at 100 cc/h, monitor daily labs On Acycolvir for prophylaxis Continue symptomatic treatment with IV Zofran PRN DVT prophylaxis Lovenox Bob Galvez MD 06/11/2020 12:52 PM PDT eanie Vang R D - 06/11/2020 10:52 AM PDT NUTRITION NOTE Summary Assessment triggered for direct chemo admit - pt known to clinical nutrition services from previous admits. Pt with B-cell lymphoma, no other PMHx except tobacco abuse and pt reports recently quit. Pt reports good appetite in general, feeling nauseous today for unknown magalie son since chemo wasn't started yet. Pt was taking whey protein shakes once daily until last week or so. Pt aware of weight gain. Pt appreciates offer of [employer] menu for variety - pt starting 4th cycle chemo this admit. Fluid/Beverage Intake Oral Fluids Amount: ad fiordaliza Food Intake Type of Food/Meals: Current active diet order is: Diet Diet general; Effective Now Amount of Food: no meals recorded today Nourishments: not currently indicated, but pt would like to trial Boost Plus to see if it's tolerable. Nutrition-Focused Physical Findings Overall Appearance: Class I obesity, pt appears fit and well nourished - no s/sxs malnutrit ion on exam Body Language: receptive, friendly Extremities, Muscles and Bones: no edema documented or observed Digestive System (Mouth to Rectum): no chew/swallow deficits; last BM [employer]ERR[employer]EVERMAN Nerves and Cognition: A&O x 4 Skin: intact Anthropometrics Last wt measured 95.6kg on 05/19/2020 Current Weight: 103.2 kg (227 lb 8.2 oz) Admit Weight: 103.2 kg (227 lb 8.2 oz) Biochemical Data, Medical Test, and Procedures Recent Labs 06/11/20 0356 NA 141 K 4.0 GLU 90 BUN 14 CREA 0.76 PHOS 4.6 MG 1.9 Estimated Energy Needs Energy Calorie Requirements: 2130-2556kcal(25-30kcal/kg AjBW 85.2kg) Estimated Protein Needs Range Gm Protein (gm): 100-125g(1.2-1.5g/kg AjBW) Recommendations Continue current diet - adding OK for [employer]. Menus provided. Scheduled chocolate Abelino ost Plus daily mid-am snack - allowed to order additional PRN. Following with team. Nutritional Risk Required Follow Up: (LM 06/17/2020) Jeanie Vang RD 06/11/2020 10:52 AM PDT Wilton Stuart MD - 04/2020 7:33 AM PDT [facility] Service: Hematology/Oncology Inpatient Progress Note Date of Admission: 06/10/2020 CANCER DIAGNOSIS AND STAGE Cancer Staging Diffuse large B-cell lymphoma of lymph nodes of multiple regions (HCC) Staging form: Hodgkin And Non-Hodgkin Lymphoma, AJCC 8th Edition - Clinical stage from 03/31/2020: Stage III (Diffuse large B-cell lymphoma) - Signed by Wilton Jeff MD on 03/31/2020 HISTORY OF PRESENT ILLNESS The patient is 30 y.o. male with no significant past medical history other than tobacco use (1/2-1 pack/day 9540-1070) who began experiencing cough, pleuritic chest pain, dyspnea on e xertion and URI symptoms beginning October 2019. He was initially treated with antibiotic s by his PCP with minimal improvement of symptoms. CT scan of the chest onFebruary revealed a large cavitary lesion with mediastinal and axillary lymphadenopathy .The pat ient also experienced an unintentional 30 pound weight [...] IV (given as d ay 0 of DA-R-EPOCH)and receivedthe chemotherapy portion of DA-R-EPOCH between April 09 -2019as follows: Rituximab 375 mg/m IV day -3 cycle 1; Etoposide 50 mg/m IV contin uous infusion days 1 4; Vincristine 0.4 mg/m IV continuous infusion days 1 4; Doxorubi josselyn 10 mg/m IV continuous infusion days 1 4; Cyclophosphamide 750 mg/m IV day 5; Predn isone 60mg/m2 (120mgper Dr. Jeff) PO days 1-5 on a 21 day cycle. He received cycle 2 between April 30 - 2020 with 20% dose increase etoposide, d oxorubicin, and cyclophosphamide per protocol. He received cycle 3 between May 20 and May 24, 2020 with a 20% dose increase in etoposide, doxorubicin, and cyclophosphamide per protocol. He received cycle 4, "day 0" of rituximab on June 08, 2020. He is currently admitted to receive ppyyv2ni DA-R-EPOCH with dose adjustment by 20% for etoposide, doxorubicin and c yclophosphamide. INTERVAL HISTORY Asad feels well today. He states that when he receives chemotherapy and shortly thereafte r for a few days he develops early satiety and a feeling of bloatedness. He has also notice d some intermittent headaches which come and go especially when he is receiving chemotherapy . He denies any new or unusual symptoms otherwise such as fevers, night sweats, or unintent ional weight loss. He denies any new or unusual pains. He has no other complaints today ot her than that listed in the review of systems. REVIEW OF SYSTEMS Review of Systems Constitutional: Positive for appetite change (Loss of appetite when receiving chemotherapy) and fatigue. HENT: Negative. Eyes: Negative for visual disturbance. Respiratory: Negative. Cardiovascular: Negative. Gastrointestinal: Negative. Endocrine: Negative for polydipsia, polyphagia and polyuria. Genitourinary: Negative. Musculoskeletal: Negative. Skin: Negative. Neurological: Positive for headaches. Hematological: Negative. Psychiatric/Behavioral: Negative. Past Medical History: Diagnosis Date Chronic cough 2019 Chronic headaches 2 x's per month History of pneumonia Lymphoma involving lung (HCC) 2019 right lung mass Past Surgical History: Procedure Laterality Date LYMPH NODE BIOPSY Right 03/20/2020 Procedure: BIOPSY DEEP CERVICAL NODE; Surgeon: She Huang DO; Location: [facility] OR No Known Allergies No current facility-administered medications on file prior to encounter. Current Outpatient Medications on File Prior to Encounter Medication Sig Dispense Refill acetaminophen (TYLENOL) 500 mg tablet Take 1,000 mg by mouth every 6 hours as needed fo r Pain. acyclovir (ZOVIRAX) 200 mg capsule Take 4 capsules by mouth 2 times daily. Indications: Herpes Zoster Prevention in Immunocompromised 240 capsule 5 aluminum & magnesium escjdtlhq-hifnqmijhyi-thdwhxrxapMVXBD-lidocaine Swish and spit 15 mLs every 4 hours as needed for Sore Throat. 600 mL 2 benzonatate (TESSALON) 100 mg capsule Take 100 mg by mouth 3 times daily as needed for Cough. lryacpkjbjctmoa-morrslbbmqypow-bvynmmpo (DUKES MOUTHWASH) suspension Swish and spit 10 [...] as needed for Nausea. 20 tablet 0 family history includes Bone Cancer in an other family member; Cancer in his paternal grand mother; Lung cancer in his paternal grandfather. Social History Tobacco Use Smoking status: Former Smoker Packs/day: 1.00 Years: 7.00 Pack years: 7.00 Types: Cigarettes Start date: 02/24/2020 Smokeless tobacco: Former User Types: Chew Tobacco comment: quit 02/22/2020 / chews 1 can tobacco/week Substance Use Topics Alcohol use: Not Currently Drug use: Yes Frequency: 7.0 times per week Types: Marijuana Comment: edibles PHYSICAL EXAM BP 121/77 | Pulse 89 | Temp 36.5 C (97.7 F) (Oral) | Resp 18 | Ht 1.803 m (5' 11") | Wt 103.2 kg (227 lb 8.2 oz) | SpO2 97% | BMI 31.73 kg/m ECOG Performance Status: 0 Physical Exam [...] No stridor. No wheezing, rhonchi or rales. Abdominal: General: Abdomen is flat. Bowel sounds are normal. Palpations: Abdomen is soft. There is no mass. Musculoskeletal: General: No swelling or deformity. Right lower leg: No edema. Left lower leg: No edema. Lymphadenopathy: Cervical: No cervical adenopathy. Skin: General: Skin is warm and dry. Coloration: Skin is not jaundiced. Findings: No bruising, erythema or rash. Neurological: General: No focal deficit present. Mental Status: He is alert and oriented to person, place, and time. Psychiatric: Mood and Affect: Mood normal. Behavior: Behavior normal. DATA Labs Recent Labs 06/11/20 0356 WBC 10.04 RBC 3.30* HGB 9.8* HCT 30.3* MCV 91.8 MCH 29.7 MCHC 32.3 PLT 311 MPV 9.7 LYMABS 0.81* MONOABS 1.45* BASABS 0.09 EOABS 0.03 RBCMORPH 2+ Recent Labs 06/11/20 0356 NA 141 K 4.0 CL 110* CO2 26 ANIONGAP 9 BUN 14 CALCIUM 8.9 AGRATIO 2.6* TP 5.8* ALKPHOS 72 ALT 18 AST 19 EGFR >60 PHOS 4.6 MG 1.9 Imaging No results found for this or any previous visit (from the past 72 hour(s)). PROBLEM LIST Patient Active Problem List Diagnosis Cervical lymphadenopathy Supraclavicular adenopathy Diffuse large B-cell lymphoma of lymph nodes of multiple regions Admission for antineoplastic chemotherapy Tobacco abuse Dental caries ASSESSMENT & PLAN Mediastinal large B-cell lymphoma This is a 30 year old male recently diagnosed with at least Stage III mediastinal diffuse l arge B-cell lymphoma after presenting with a large RUL pulmonary mass with multiple enlarged cervical, mediastinal, hilar and axillary lymph nodes. He [id number]-[id number] April 09-2019 and is now admitted for cycle 4 with escalation of dosages per protocol. He received rituximab in the outpatient setting on June 08 andthe cytotoxic portion of treatment beginningtoday with 20% increase in etoposide, doxorubicin and cyclophosphamide. Encounter for antineoplastic chemotherapy The patient will initiate treatment todaywith dose adjusted R-EPOCH as follows: Rituximab 375 mg/m IV day 0 (given June 08) Oyceatcmb52.4mg/m IV continuous infusion days 1 4 Vincristine 0.4 mg/m IV continuous infusion days 1 4 Doxorubicin 17.28mg/m IV continuous infusion days 1 4 Nxuhrwojatngcfvt2794 mg/m IV day 5 Prednisone 60 mg/m2 ([address] Jeff) PO days 1-5 On a 21 day cycle The patient will receive GCSF following treatment. Today is [id number]. Anemia Hemoglobin9.8. No intervention required. Infectious prophylaxis Acyclovir 800mg PO BID for viral prophylaxis Greater than 35 minutes were spent examining the patient, review of medical records, ivan castaneda, coordination of care, and CPOE. More than 50% of that time was spent in direct contact with the patient. Portions of this chart may have been created with voice recognition software. Occasional wr mak-word or "sound-alike" substitutions may have occurred, even after review, due to the inh erent limitations of voice recognition software. Please read the chart carefully and recogni ze, using context, where these substitutions have occurred. Personal communication is reques akbar for any clarifications. Code Status: Full Code Primary Care Physician: MD Wilton Frank MD 06/11/2020 10:26 AM PDT documented in this encou nter H&P Notes Addie Whiteside MD - 06/10/2020 5:58 PM PDTFormatting of this note might be different from th e original. [facility] Service: Hospitalist History and Physical Date of Admission: Jun 10 2020 Requesting Physician: Oncologist Reason for Admission: 4th cycle chemotherapy for diffuse large B-cell lymphoma CHIEF COMPLAINT: Oncology team requested for direct admission for 4th cycle of chemothe rapy for diffuse large B-cell lymphoma - diagnosed in March 2020 HISTORY OF PRESENT ILLNESS Mr. Asad Longo 29 y.o. male recent diagnosed March 2020 with diffuse large B-cell lymphoma, positive for CD20, CD23, BCL 6, CD79a, and PAX 5. Ki-67 was 60%. 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 He got his first cycle of chemo from 08 April to then he got his second cycle 29 April to 04 May He got his third cycle of chemo from 19 May to September This admission was requested by oncology team for admit for chemo Cycle#4th 1-5 EPOCH. He denies any recent cough congestion or skin rash He stated to last cycle of chemo after he feels somewhat cloudy and full but that sensation right now is okay he also complained a few episodes of headache he described as it lasted f or a few hours and advised as well as light both no dizziness no vision change no sore throa t no sinus issue complain He stated he stopped smoking about 3 months now REVIEW OF SYSTEMS 12 point ROS reviewed and negative other than above Past Medical History: Diagnosis Date Chronic cough 2019 Chronic headaches 2 x's per month History of pneumonia Lymphoma involving lung (HCC) 2019 right lung mass Past Surgical History: Procedure Laterality Date LYMPH NODE BIOPSY Right 03/20/2020 Procedure: BIOPSY DEEP CERVICAL NODE; Surgeon: She Huang DO; Location: [facility] OR No Known Allergies No medications [...] location, and contour. Throat: no exudates, dry. No temporal tendern ess NECK: is supple, full ROM, nontender. No rigidity LUNGS: clear to auscultation bilaterally with no [...] CBC: Lab Results Component Value Date WBC 17.72 (H) 06/08/2020 RBC 3.68 (L) 06/08/2020 HGB 11.0 (L) 06/08/2020 HCT 33.0 (L) 06/08/2020 MCV 89.6 06/08/2020 MCH 29.9 06/08/2020 MCHC 33.3 06/08/2020 PLT 308 06/08/2020 MPV 7.3 06/08/2020 DIFFTYPE MANUAL 06/08/2020 CMP: Lab Results Component Value Date NA 138 06/08/2020 K 4.0 06/08/2020 CL 103 06/08/2020 CO2 25 06/08/2020 ANIONGAP 14 06/08/2020 BUN 16 06/08/2020 AGRATIO 1.9 06/08/2020 AST 17 06/08/2020 ALT 21 06/08/2020 EGFR >60 06/08/2020 BMP: Lab Results Component Value Date NA 138 06/08/2020 K 4.0 06/08/2020 CL 103 06/08/2020 CO2 25 06/08/2020 ANIONGAP 14 06/08/2020 BUN 16 06/08/2020 EGFR >60 06/08/2020 Hepatic Function Panel: Lab Results Component Value Date AST 17 06/08/2020 ALT 21 06/08/2020 Magnesium: Lab Results Component Value Date MG 1.9 05/21/2020 Phosphorus: Lab Results Component Value Date PHOS 5.0 (H) 05/20/2020 PT/INR: Lab Results Component Value Date INR 1.0 04/01/2020 PTT: No results found for: APTT[APTT HgbA1c: No components found for: HGBA1C Active Problems: Diffuse large B-cell lymphoma, positive for CD20, CD23, BCL 6, CD79a, and PAX 5. Ki-67 w as 60%. ; in favor of a primary mediastinal large B-cell lymphoma ASSESSMENT AND PLAN: Diffuse large B-cell lymphoma, positive for CD20, CD23, BCL 6, CD79a, and PAX 5. Ki-67 was 60%. 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 admit for chemo 4th Cycle- 1-5 EPOCH. Started Rituxan on Jun as out patient IVF NS at 100 cc/h A.m. lab CBC,CMP mag and phos Continue his prophylactic antiviral as well as symptomatic medication History of episode of headache not at present time by description highly suspected migraine triggers is unsure no signs of infection of ear or throat or sinus or dentition at this reece e Will use Maxalt as needed is symptomatic if occurs DVT pro Hospital records reviewed. Labs and radiologic studies and reports reviewed. Discussed find ings with patient and patient family and also explaining what will be the care plan Old records reviewed on EMR. Dictation software, [employer], used which may contain error for similar sounding words even af ter review. Personal communication requested for any clarification. Disposition: inpatient Code Status: FULL CODE Primary Care Physician: MD Addie Frank MD 06/10/2020 documented in this encou nter Miscellaneous Notes Plan of Care - Konstantin Ram RN - 06/15/2020 7:05 PM PDT Problem: Adult Inpatient Plan of Care Goal: Readiness for Transition of Care Outcome: Met Note: Patient discharged to home via private vehicle. Discharge instructions, scripts and F /U appts reviewed with patient with no issues noted. lan of Stef - Konstantin Campbell RN - 06/15/2020 4:45 PM PDT Problem: Adult Inpatient Plan of Care Goal: Optimal Comfort and Wellbeing Outcome: Met Problem: Adult Inpatient Plan of Care Goal: Plan of Care Review Outcome: Met Goal: Patient-Specific Goal Outcome: Met Goal: Absence of Hospital-Acquired Illness or Injury Outcome: Met Goal: Optimal Comfort and Wellbeing Outcome: Met Goal: Readiness for Transition of Care Outcome: Met Note: Patient discharged to home via private vehicle. Discharge instructions, scripts and F /U appts reviewed with patient with no issues noted. Goal: Rounds/Family Conference Outcome: Met lan of Care - Margarette Blank RN - 06/15/2020 6:39 AM PDTProblem: Adult Inpatient Plan of Care Goal: Plan of Care Review Outcome: Ongoing, progressing Problem: Nausea and Vomiting (Chemotherapy Effects) Goal: Fluid and Electrolyte Balance Outcome: Ongoing, progressing End of shift note: Patient medicated for nausea x2. He was able to sleep for the majority of the night. Chart review and 24 hour chart check complete. lan of Care - Sari Barraza RN - 06/14/2020 6:32 PM PDTPatient had nausea throughout the day. Patient med icated with Ativan. Patient tolerating chemo. Vital sign stable End of shift review complete Sari Duran RN Plan of Care - Sari Duran RN - 06/14/2020 9:58 AM PDT Problem: Adult Inpatient Plan of Care Goal: Plan of Care Review Outcome: Ongoing, progressing Flowsheets (Taken 06/14/2020 0957) Plan of Care Reviewed With: patient Note: Plan f care discussed with the patient. Continue chemo. Monitor nausea and vomiting Problem: Nausea and Vomiting (Chemotherapy Effects) Goal: Fluid and Electrolyte Balance Outcome: Ongoing, progressing Intervention: Prevent and Manage Nausea and Vomiting Flowsheets (Taken 06/14/2020 0957) Environmental Support: calm environment promoted Note: Patient medicated with ativan as needed for nausea patient able to tolerate breakfast lan of Stef - Margarette Rios RN - 06/14/2020 6:38 AM PDTProblem: Adult Inpatient Plan of Care Goal: Plan of Care Review Outcome: Ongoing, progressing Problem: Nausea and Vomiting (Chemotherapy Effects) Goal: Fluid and Electrolyte Balance Outcome: Ongoing, progressing End of shift note: Patient had continued nausea overnight. Medicated with ativan x1. He was able to tolerate h is PO medications and slept for the majority of the night. Chart review and 24 hour chart check complete. lan of Sari Chiang Gri, RN - 06/13/2020 6:35 PM PDTPatient struggled with nausea today he was medicat ed with ativan x 3 and Compazine x 1. When patient received the compazine he felt like he wa s crawling out of his skin and jumping patients HR was 120. B/p stable. notified and an a dditional dose of ativan was given. Patient now resting in bed comfortably. Chemo bag was ch anged over at 1630. Patency and blood return was noted from the port. End of shift review co mplete Sari Duran RN lan of Stef - Sari Duran RN - 06/13/2020 10:31 AM PDT Problem: Adult Inpatient Plan of Care Goal: Plan of Care Review Outcome: Ongoing, progressing Patient plan of care was discussed with him plans are to continue chemo today and manage N/ V Problem: Nausea and Vomiting (Chemotherapy Effects) Goal: Fluid and Electrolyte Balance Outcome: Ongoing, progressing Patient n/v improved today he is able to tolerate breakfast. lan of Margarette Macdonald RN - 06/13/2020 6:54 AM PDTProblem: Adult Inpatient Plan of Care Goal: Plan of Care Review Outcome: Ongoing, progressing Problem: Nausea and Vomiting (Chemotherapy Effects) Goal: Fluid and Electrolyte Balance Outcome: Ongoing, not progressing End of shift note: Patient continued to have persistent nausea overnight. Medicated with antiemetics x1. The f ilter on the patients chemo line was noted to be leaking again this shift. Chemo was stopped immediately and taken to pharmacy to be respiked. Resumed at 0650. Chart review and 24 hour chart check complete. lan of Stef - Tea Jensen RN - 06/12/2020 6:55 PM PDTProblem: Adult Inpatient Plan of Care Goal: Plan of Care Review Outcome: Ongoing, progressing Note: C4D2 POC reviewed with patient Problem: Nausea and Vomiting (Chemotherapy Effects) Goal: Fluid and Electrolyte Balance Outcome: Ongoing, progressing Intervention: Prevent and Manage Nausea and Vomiting Environmental Support: calm environment promoted Note: Medicated for nausea. Experiencing a lot of nausea this shift. Ativan given x2 and phenergan x1 with little relie f. End of shift chart review complete 20 8:42 PM PDTPlan of Margarette Macdonald RN - 06/12/2020 6:15 AM PDTProblem: Adult Inpatient Plan of Care Goal: Plan of Care Review Outcome: Ongoing, progressing Problem: Nausea and Vomiting (Chemotherapy Effects) Goal: Fluid and Electrolyte Balance Outcome: Ongoing, progressing End of shift note: Patient medicated with ativan x3 for persistent nausea overnight. No acute changes to init ial assessment. Chart review and 24 hour chart check complete. lan of Care - Tea Jensen RN - 06/11/2020 6:59 PM PDT Problem: Adult Inpatient Plan of Care Goal: Plan of Care Review Outcome: Ongoing, progressing Note: C4D1 POC reviewed with patient Problem: Nausea and Vomiting (Chemotherapy Effects) Goal: Fluid and Electrolyte Balance Outcome: Ongoing, progressing Intervention: Prevent and Manage Nausea and Vomiting Flowsheets (Taken 06/11/20201950) Environmental Support: calm environment promoted Note: Medicated for nausea. Zofran doesn't help much- patient reports that ativan better for nausea End of shift chart review complete lan of [facility] - Pio Kelly RN - 06/11/2020 8:41 AM PDTCare Management Initial Assessment Readmission Risk: Medium Status Prior to Admission or Illness Arrival From: admitted as an inpatient Lives With: significant other Living Arrangements: house Caregiver For: no one Patient s Caregiver: (self) Caregiving Concerns: none Home Accessibility: no concerns Transportation Available: family or friend will provide Able to return to prior living: yes Care Management Concerns Readmission Within Last 30 Days: planned readmission PCP: Myrna Mejia MD Contact Information Family Contact Information: Name: Marcos Morgan [place] Needs Assessment Current Outpt/Agency/Support Groups: other (see comments) Community Agency Name: [facility] Anticipated Changes Related to Illness: none Concerns to be Addressed: denies needs/concerns at this time Services Anticipated at Discharge: infusion therapy, outpatient Equipment Used at Home: none Equipment Needed after Discharge: none Transportation Needs: none Initial Plan Anticipated Discharge Disposition: home Steps Taken Toward Discharge: Initial CM assessment Next Steps: CM following for DC needs Notes:Patient lives with his girlfriend and children [place]. He goes to [facility]. Independent at baseline. Electronically signed: Pio Rebollar RN 06/11/2020 8:41 AM PDT lan of Care - Etta Urias RN - 06/10/2020 10:12 PM PDT Problem: Adult Inpatient Plan of Care Goal: Optimal Comfort and Wellbeing Outcome: Ongoing, progressing Note: Patient A&Ox4 and able to make his needs known. Patient has call light and bedside ta ble within reach. He is independent in the room. Patient denies pain and discomfort. He is c ontinued to be assessed. Patient reported waking up nauseas this morning and vomiting a couple of times. PRN zofran was administered. No other events. End of shift review complete. documented in this encounter Plan of Treatment [...] [place] | | | | | | [id number] | | | | | | | | +--------+ + + + + | 06/29/ | Office | Oncology | Wilton Jeff MD | | | 2019 | Visit | | [address] | | | | | | [place] | | | | | | [address] | | | | | | | | | | | | Marilou Mcmullen, | | | | | | [employer] [address] | | | | | | [place] [address] | | | | | | [phone] | | | | | | | | +--------+ + + + + | 06/29/ | Appointment | Infusion Therapy | Wilton Jeff MD | | | 2019 | | | [address] | | | | | | [place] | | | | | | [address] | | | | | | | | +--------+ + + + + | 07/14/ | Office | Otolaryngology | She Huang | | | 2019 | Visit | | DO Sophia Canela | | | | | | [address] | | | | | | [place] [address] | | | | | | [phone] | | | | | | | | +--------+ + + + + | 07/20/ | Appointment | Infusion Therapy | Wilton Jeff MD | | | 2019 | | | [address] | | | | | | [place] | | | | | | [address] | | | | | | | | +--------+ + + + + | 07/20/ | Office | Oncology | Wilton Jeff MD | | | 2019 | Visit | | [address] | | | | | | [place] | | | | | | [address] | | | | | | | | +--------+ + + + + | 07/20/ | Appointment | Infusion Therapy | Wilton Jeff MD | | | 2019 | | | [address] | | | | | | [place] | | | | | | [address] | | | | | | | | +--------+ + + + + | 08/17/ | Appointment | Infusion Therapy | Wliton Jeff MD | | | 2020 | | | [address] | | | | | | [place] | | | | | | [address] | | | | | | | | +--------+ + + + + | 08/17/ | Office | Oncology | Wilton Jeff MD | | | 2019 | Visit | | [address] | | | | | | [place] | | | | | | [address] | | | | | | | | +--------+ + + + + + +------+--------+ + + | Name | Type | Priori | Associated Diagnoses | Order Schedule | | | | ty | | | + +------+--------+ + + | CBC with | Lab | STAT | Diffuse large | Expected: | | Differential | | | B-cell lymphoma of | 07/20/2020, Expires: | | | | | lymph nodes of | 06/15/2021 | | | | | multiple regions | | | | | | (HCC) | | + +------+--------+ + + documented as of this encounter Procedures + +--------+ + + + | Procedure Name | Priori | Date/Time | Associated Diagnosis | Comments | | | ty | | | | + +--------+ + + + | CBC WITH | Routin | 06/15/2020 | | Results for this | | DIFFERENTIAL | e | 4:10 AM | | procedure are in the | | | | PDT | | results section. | + +--------+ + + + | COMPREHENSIVE | Routin | 06/15/2020 | | Results for this | | METABOLIC PANEL | e | 4:10 AM | | procedure are in the | | | | PDT | | results section. | + +--------+ + + + | CBC WITH | Routin | 06/14/2020 | | Results for this | | DIFFERENTIAL | e | 3:42 AM | | procedure are in the | | | | PDT | | results section. | + +--------+ + + + | COMPREHENSIVE | Routin | 06/14/2020 | | Results for this | | METABOLIC PANEL | e | 3:42 AM | | procedure are in the | | | | PDT | | results section. | + +--------+ + + + | CBC WITH | Routin | 06/13/2020 | | Results for this | | DIFFERENTIAL | e | 3:00 AM | | procedure are in the | | | | PDT | | results section. | + +--------+ + + + | COMPREHENSIVE | Routin | 06/13/2020 | | Results for this | | METABOLIC PANEL | e | 3:00 AM | | procedure are in the | | | | PDT | | results section. | + +--------+ + + + | CBC NO DIFFERENTIAL | Routin | 06/12/2020 | | Results for this | | | e | 3:59 AM | | procedure are in the | | | | PDT | | results section. | + +--------+ + + + | BASIC METABOLIC | Routin | 06/12/2020 | | Results for this | | PANEL | e | 3:59 AM | | procedure are in the | | | | PDT | | results section. | + +--------+ + + + | CBC WITH | Routin | 06/11/2020 | | Results for this | | DIFFERENTIAL | e | 3:56 AM | | procedure are in the | | | | PDT | | results section. | + +--------+ + + + | PHOSPHORUS | Routin | 06/11/2020 | | Results for this | | | e | 3:56 AM | | procedure are in the | | | | PDT | | results section. | + +--------+ + + + | MAGNESIUM | Routin | 06/11/2020 | | Results for this | | | e | 3:56 AM | | procedure are in the | | | | PDT | | results section. | + +--------+ + + + | COMPREHENSIVE | Routin | 06/11/2020 | | Results for this | | METABOLIC PANEL | e | 3:56 AM | | procedure are in the | | | | PDT | | results section. | + +--------+ + + + documented in this encounter Results Comprehensive Metabolic Panel (06/15/2020 4:10 AM PDT) + + + + + + | Component | Value | Ref Range | Performed | Pathologist | | | | | At | Signature | + + + + + + | Na | 138 | 135 - 145 | [facility] | | | | | mmol/L | LABORATORY | | + + + + + + | K | 3.6 | 3.5 - 4.9 | [facility] | [...] + + + + | Glucose | 96 | 65 - 99 mg/dL | [facility] | | | | | | LABORATORY | | + + + + + + | BUN | 18 | 8 - 25 mg/dL | [facility] [...] + + + + | Protein, | 5.8 (L) | 6.3 - 8.2 g/dL | [facility] | | | Total | | | LABORATORY | | + + + + + + | Albumin | 3.2 (L) | 3.6 - 5.0 g/dL | [facility] | | | | | | LABORATORY | | + + + + + + | Globulin | 2.6 | 1.3 - 4.9 g/dL | [facility] | | | | | | LABORATORY | | + + + + + + | A/G Ratio | 1.2 | 1.0 - 2.4 | [facility] | | | | | | LABORATORY | | + + + + + + | BILIRUBIN, | 0.7 | 0.1 - 1.5 mg/dL | [facility] | | | TOTAL | | | LABORATORY | | + + + + + + | ALK PHOS | 62 | 35 - 115 U/L | [facility] | | | | | | LABORATORY | | + + + + + + | AST | 9 (L) | 10 - 45 U/L | [facility] | | | | | | LABORATORY | | + + + + + + | ALT | 26 | 10 - 65 U/L | [facility] [...] | | | | | performed at [facility], [address] | | | | | | [facility], | | | | | | [place] [address] | | | | + + + + + + + + | Specimen | + + | Blood | + + + + + + + | Performing | Address | City/State/Zipcode | Phone Number | | Organization | | | | + + + + + | [facility] | [address] | [place] [address] | [phone] | + + + + + CBC with Differential (06/15/2020 4:10 AM PDT) + + + + + + | Component | Value | Ref Range | Performed | Pathologist | | | | | At | Signature | + + + + + + | WBC | 4.77 | 3.80 - 11.00 | [facility] | | | | | K/uL | LABORATORY | | + + + + + + | Red Blood | 3.30 (L) | 4.20 - 5.70 | [facility] | | | Cells | | M/uL | LABORATORY | | + + + + + + | Hemoglobin | 10.0 (L) | 13.2 - 17.0 | [facility] | | | | | g/dL | LABORATORY | | + + + + + + | Hematocrit | 29.2 (L) | 39.0 - 50.0 % | [facility] | | | | | | LABORATORY | | + + + + + + | MCV | 88.5 | 80.0 - 100.0 fl | [facility] | | | | | | LABORATORY | | + + + + + + | MCH | 30.3 | 27.0 - 34.0 pg | [facility] | | | | | | LABORATORY | | + + + + + + | MCHC | 34.2 | 32.0 - 35.5 | [facility] | | | | | g/dL | LABORATORY | | + + + + + + | RDW-SD | 60.5 (H) | 37 - 53 fl | [facility] | | | | | | LABORATORY | | + + + + + + | Platelet | 358 | 150 - 400 K/uL | [facility] [...] + + + + | % | 83.60 | % | [facility] | | | Neutrophils | | | LABORATORY | | + + + + + + | IMMATURE | 1.30 | % | [facility] | | | GRANULOCYTE | | | LABORATORY | | + + + + + + | % | 8.20 | % | [facility] | | | Lymphocytes | | | LABORATORY | | + + + + + + | Monocyte % | 6.90 | % | [facility] | | | [...] + + + + | Neutrophils | 3.99 | 1.90 - 7.40 | [facility] | | | , Absolute | | K/uL | LABORATORY | | + + + + + + | IMMATURE | 0.06Comment: NOTE NEW | 0.00 - 0.07 | [facility] | | | GRANS AB | REFERENCE RANGE | K/uL | LABORATORY | | + + + + + + | Absolute | 0.39 (L) | 1.00 - 3.90 | [facility] | | | Lymphocytes | | K/uL | LABORATORY | | + + + + + + | Absolute | 0.33 | 0.00 - 0.80 | [facility] | [...] | | | Absolute | performed at [facility], [address] | K/uL | LABORATORY | | | | [facility], | | | | | | [place] [address] | | | | + + + + + + + + | Specimen | + + | Blood | + + + + + + + | Performing | Address | City/State/Zipcode | Phone Number | | Organization | | | | + + + + + | [facility] | [address] | [place] [address] | [phone] | + + + + + Comprehensive Metabolic Panel (06/14/2020 3:42 AM PDT) + + + + + [...] + + + + | Glucose | 108 (H) | 65 - 99 mg/dL | [facility] | | | | | | LABORATORY | | + + + + + + | BUN | 17 | 8 - 25 mg/dL | [facility] | | | | | | LABORATORY | | + + + + + + | Creatinine | 0.71 | 0.70 - 1.30 | [facility] | [...] + + + + | Protein, | 5.7 (L) | 6.3 - 8.2 g/dL | [facility] | | | Total | | | LABORATORY | | + + + + + + | Albumin | 4.1 | 3.6 - 5.0 g/dL | [facility] | | | | | | LABORATORY | | + + + + + + | Globulin | 1.6 | 1.3 - 4.9 g/dL | [facility] | | | | | | LABORATORY | | + + + + + + | A/G Ratio | 2.6 (H) | 1.0 - 2.4 | [facility] | | | | | | LABORATORY | | + + + + + + | BILIRUBIN, | 0.6 | 0.1 - 1.5 mg/dL | [facility] | | | TOTAL | | | LABORATORY | | + + + + + + | ALK PHOS | 62 | 35 - 115 U/L | [facility] | | | | | | LABORATORY | | + + + + + + | AST | 12 | 10 - 45 U/L | [facility] | | | | | | LABORATORY | | + + + + + + | ALT | 13 | 10 - 65 U/L | [facility] | | | | | | LABORATORY | | + + + + + + | Estimated | >60Comment: GFR <60: | >60 | [facility] | | | GFR | CHRONIC [...] | | | | | | MDRD IDCA traceable | | | | | | equation.Testing | | | | | | performed at [facility] | | | | | | [facility];[place], [place] | | | | | | [address] | | | | + + + + + + + + | Specimen | + + | Blood | + + + + + + + | Performing | Address | City/State/Zipcode | Phone Number | | Organization | | | | + + + + + | [facility] | [address] | [place] [address] | [phone] | + + + + + CBC with Differential (06/14/2020 3:42 AM PDT) + + + + + + | Component | Value | Ref Range | Performed | Pathologist | | | | | At | Signature | + + + + + + | WBC | 8.37 | 3.80 - 11.00 | [facility] | | | | | K/uL | LABORATORY | | + + + + + + | Red Blood | 3.28 (L) | 4.20 - 5.70 | [facility] | | | Cells | | M/uL | LABORATORY | | + + + + + + | Hemoglobin | 10.0 (L) | 13.2 - 17.0 | [facility] | | | | | g/dL | LABORATORY | | + + + + + + | Hematocrit | 29.4 (L) | 39.0 - 50.0 % | [facility] | | | | | | LABORATORY | | + + + + + + | MCV | 89.6 | 80.0 - 100.0 fl | [facility] | | | | | | LABORATORY | | + + + + + + | MCH | 30.5 | 27.0 - 34.0 pg | [facility] | | | | | | LABORATORY | | + + + + + + | MCHC | 34.0 | 32.0 - 35.5 | [facility] | | | | | g/dL | LABORATORY | | + + + + + + | RDW-SD | 62.7 (H) | 37 - 53 fl | [facility] | | | | | | LABORATORY | | + + + + + + | Platelet | 350 | 150 - 400 K/uL | [facility] [...] + + + + | % | 85.10 | % | [facility] | | | Neutrophils | | | LABORATORY | | + + + + + + | IMMATURE | 1.30 | % | [facility] | | | GRANULOCYTE | | | LABORATORY | | + + + + + + | % | 4.80 | % | [facility] | | | Lymphocytes | | | LABORATORY | | + + + + + + | Monocyte % | 8.80 | % | [facility] | | | [...] + + + + | Neutrophils | 7.12 | 1.90 - 7.40 | [facility] | | | , Absolute | | K/uL | LABORATORY | | + + + + + + | IMMATURE | 0.11 (H)Comment: NOTE | 0.00 - 0.07 | [facility] | | | GRANS AB | NEW REFERENCE RANGE | K/uL | LABORATORY | | + + + + + + | Absolute | 0.40 (L) | 1.00 - 3.90 | [facility] | | | Lymphocytes | | K/uL | LABORATORY | | + + + + + + | Absolute | 0.74 | 0.00 - 0.80 | [facility] | [...] | | | Absolute | performed at [facility];[address] | [address] | LABORATORY | | | [address];[place], [place] | | | | | | [address] | | | | + + + + + + + + | Specimen | + + | Blood | + + + + + + + | Performing | Address | City/State/Zipcode | Phone Number | | Organization | | | | + + + + + | [facility] | [address] [facility] [place] [address] | [phone] | + + + + + Comprehensive Metabolic Panel (06/13/2020 3:00 AM PDT) + + + + + [...] + + + | Anion Gap | 8 | 5 - 20 mmol/L | [facility] | | | | | | LABORATORY | | + + + + + + | Glucose | 114 (H) | 65 - 99 mg/dL | [...] + + + + | Protein, | 6.5 | 6.3 - 8.2 g/dL | [facility] | | | Total | | | LABORATORY | | + + + + + + | Albumin | 3.3 (L) | 3.6 - 5.0 g/dL | [facility] | | | | | | LABORATORY | | + + + + + + | Globulin | 3.2 | 1.3 - 4.9 g/dL | [facility] | | | | | | LABORATORY | | + + + + + + | A/G Ratio | 1.0 | 1.0 - 2.4 | [facility] | | | | | | LABORATORY | | + + + + + + | BILIRUBIN, | 0.4 | 0.1 - 1.5 mg/dL | [facility] | | | TOTAL | | | LABORATORY | | + + + + + + | ALK PHOS | 72 | 35 - 115 U/L | [facility] | | | | | | LABORATORY | | + + + + + + | AST | 9 (L) | 10 - 45 U/L | [facility] | | | | | | LABORATORY | | + + + + + + | ALT | 23 | 10 - 65 U/L | [facility] | | | | | | LABORATORY | | + + + + + + | Estimated | >60Comment: GFR <60: | >60 | [facility] | | | GFR | CHRONIC [...] | | | | | | MDRD IDCA traceable | | | | | | equation.Testing | | | | | | performed at [facility], [address] | | | | | | [facility], | | | | | | [place] [address] | | | | + + + + + + + + | Specimen | + + | Blood | + + + + + + + | Performing | Address | City/State/Zipcode | Phone Number | | Organization | | | | + + + + + | [facility] | [address] | [place] [address] | [phone] | + + + + + CBC with Differential (06/13/2020 3:00 AM PDT) + + + + + + | Component | Value | Ref Range | Performed | Pathologist | | | | | At | Signature | + + + + + + | WBC | 11.59 (H) | 3.80 - 11.00 | [facility] | | | | | K/uL | LABORATORY | | + + + + + + | Red Blood | 3.37 (L) | 4.20 - 5.70 | [facility] | | | Cells | | M/uL | LABORATORY | | + + + + + + | Hemoglobin | 10.1 (L) | 13.2 - 17.0 | [facility] | | | | | g/dL | LABORATORY | | + + + + + + | Hematocrit | 30.4 (L) | 39.0 - 50.0 % | [facility] | | | | | | LABORATORY | | + + + + + + | MCV | 90.2 | 80.0 - 100.0 fl | [facility] | | | | | | LABORATORY | | + + + + + + | MCH | 30.0 | 27.0 - 34.0 pg | [facility] | | | | | | LABORATORY | | + + + + + + | MCHC | 33.2 | 32.0 - 35.5 | [facility] | | | | | g/dL | LABORATORY | | + + + + + + | RDW-SD | 64.9 (H) | 37 - 53 fl | [...] + + + + | % | 93.80 | % | [facility] | | | Neutrophils | | | LABORATORY | | + + + + + + | IMMATURE | 0.90 | % | [facility] | | | GRANULOCYTE | | | LABORATORY | | + + + + + + | % | 3.40 | % | [facility] | | | Lymphocytes | | | LABORATORY | | + + + + + + | Monocyte % | 1.80 | % | [facility] | | | [...] + + + + | Neutrophils | 10.88 (H) | 1.90 - 7.40 | [facility] | | | , Absolute | | K/uL | LABORATORY | | + + + + + + | IMMATURE | 0.10 (H)Comment: NOTE | 0.00 - 0.07 | [facility] | | | GRANS AB | NEW REFERENCE RANGE | K/uL | LABORATORY | | + + + + + + | Absolute | 0.39 (L) | 1.00 - 3.90 | [facility] | | | Lymphocytes | | K/uL | LABORATORY | | + + + + + + | Absolute | 0.21 | 0.00 - 0.80 | [facility] | [...] | | | Absolute | performed at [facility], [address] | K/uL | LABORATORY | | | | [address], | | | | | | [place] [address] | | | | + + + + + + + + | Specimen | + + | Blood | + + + + + + + | Performing | Address | City/State/Zipcode | Phone Number | | Organization | | | | + + + + + | [facility] | [address] | [place] [address] | [phone] | + + + + + CBC no Differential (06/12/2020 3:59 AM PDT) + + + + + + | Component | Value | Ref Range | Performed | Pathologist | | | | | At | Signature | + + + + + + | WBC | 15.47 (H) | 3.80 - 11.00 | [facility] | | | | | K/uL | LABORATORY | | + + + + + + | Red Blood | 3.56 (L) | 4.20 - 5.70 | [facility] | | | Cells | | M/uL | LABORATORY | | + + + + + + | Hemoglobin | 10.6 (L) | 13.2 - 17.0 | [facility] | | | | | g/dL | LABORATORY | | + + + + + + | Hematocrit | 32.8 (L) | 39.0 - 50.0 % | [facility] | | | | | | LABORATORY | | + + + + + + | MCV | 92.1 | 80.0 - 100.0 fl | [facility] | | | | | | LABORATORY | | + + + + + + | MCH | 29.8 | 27.0 - 34.0 pg | [facility] | | | | | | LABORATORY | | + + + + + + | MCHC | 32.3 | 32.0 - 35.5 | [facility] | | | | | g/dL | LABORATORY | | + + + + + + | RDW-SD | 65.8 (H) | 37 - 53 fl | [facility] | | | | | | LABORATORY | | + + + + + + | Platelet | 385 | 150 - 400 K/uL | [facility] | | | Count | | | LABORATORY | | + + + + + + | MPV | 9.5Comment: NO NORMAL | fl | [facility] | | | | RANGE ESTABLISHEDTesting | | LABORATORY | | | | performed at [facility];[address] | | | | | [address];[place] | | | | | | [address] | | | | + + + + + + + + | Specimen | + + | Blood | + + + + + + + | Performing | Address | City/State/Zipcode | Phone Number | | Organization | | | | + + + + + | [facility] | [address] | [place] [address] | [phone] | + + + + + Basic Metabolic Panel (06/12/2020 3:59 AM PDT) + + + + [...] + + | CO2 | 25 | 23 - 32 mmol/L | [facility] | | | | | | LABORATORY | | + + + + + + | Anion Gap | 12 | 5 - 20 mmol/L | [facility] | | | | | | LABORATORY | | + + + + + + | Glucose | 118 (H) | 65 - 99 mg/dL | [facility] | | | | | | LABORATORY | | + + + + + + | BUN | 14 | 8 - 25 mg/dL | [facility] | | | | | | LABORATORY | | + + + + + + | Creatinine | 0.71 | 0.70 - 1.30 | [facility] | | | | | mg/dL | LABORATORY | | + + + + + + | BUN/Creatin | 20 | | [facility] | | | ine Ratio | | | LABORATORY | | + + + + + + | Calcium | 9.6 | 8.5 - 10.5 | [facility] | [...] | | | | | performed at [facility];[address] | | | | | | [facility];[place], [place] | | | | | | [address] | | | | + + + + + + + + | Specimen | + + | Blood | + + + + + + + | Performing | Address | City/State/Zipcode | Phone Number | | Organization | | | | + + + + + | [facility] | [address] | [place] [address] | [phone] | + + + + + Phosphorus (06/11/2020 3:56 AM PDT) + + + + + + | Component | Value | Ref Range | Performed | Pathologist | | | | | At | Signature | + + + + + + | Phosphorus | 4.6Comment: Testing | 2.3 - 4.8 mg/dL | [facility] | | | | performed at [facility];[address] | | LABORATORY | | | | [address];[place] | | | | | | [address] | | | | + + + + + + + + | Specimen | + + | Blood | + + + + + + + | Performing | Address | City/State/Zipcode | Phone Number | | Organization | | | | + + + + + | [facility] | [address] | [place] [address] | [phone] | + + + + + Magnesium (06/11/2020 3:56 AM PDT) + + + + + + | Component | Value | Ref Range | Performed | Pathologist | | | | | At | Signature | + + + + + + | Magnesium | 1.9Comment: Testing | 1.7 - 2.4 mg/dL | [facility] | | | | performed at [facility];[address] | | LABORATORY | | | | [address];[place], [place] | | | | | | [address] | | | | + + + + + + + + | Specimen | + + | Blood | + + + + + + + | Performing | Address | City/State/Zipcode | Phone Number | | Organization | | | | + + + + + | [facility] | [address] | [place] [address] | [phone] | + + + + + Comprehensive Metabolic Panel (06/11/2020 3:56 AM PDT) + + + + + [...] | 4.0 | 3.5 - 4.9 | [facility] | | | | | mmol/L | LABORATORY | | + + + + + + | Cl | 110 (H) | 99 - 109 mmol/L | [facility] [...] + + | Glucose | 90 | 65 - 99 mg/dL | [facility] | | | | | | LABORATORY | | + + + + + + | BUN | 14 | 8 - 25 mg/dL | [facility] | | | | | | LABORATORY | | + + + + + + | Creatinine | 0.76 | 0.70 - 1.30 | [facility] | | | | | mg/dL | LABORATORY | | + + + + + + | BUN/Creatin | 18 | | [facility] | | | ine Ratio | | | LABORATORY | | + + + + + + | Calcium | 8.9 | 8.5 - 10.5 | [facility] | | | | | mg/dL | LABORATORY | | + + + + + + | Protein, | 5.8 (L) | 6.3 - 8.2 g/dL | [facility] | | | Total | | | LABORATORY | | + + + + + + | Albumin | 4.2 | 3.6 - 5.0 g/dL | [facility] | | | | | | LABORATORY | | + + + + + + | Globulin | 1.6 | 1.3 - 4.9 g/dL | [facility] | | | | | | LABORATORY | | + + + + + + | A/G Ratio | 2.6 (H) | 1.0 - 2.4 | [facility] | | | | | | LABORATORY | | + + + + + + | BILIRUBIN, | 0.3 | 0.1 - 1.5 mg/dL | [facility] | | | TOTAL | | | LABORATORY | | + + + + + + | ALK PHOS | 72 | 35 - 115 U/L | [facility] | | | | | | LABORATORY | | + + + + + + | AST | 19 | 10 - 45 U/L | [facility] | | | | | | LABORATORY | | + + + + + + | ALT | 18 | 10 - 65 U/L | [facility] [...] | | | | | | MDRD [facility] traceable | | | | | | equation.Testing | | | | | | performed at [facility];[address] | | | | | [address] [facility], [place] | | | | | | [address] | | | | + + + + + + + + | Specimen | + + | Blood | + + + + + + + | Performing | Address | City/State/Zipcode | Phone Number | | Organization | | | | + + + + + | [facility] | [address] [facility] | [place] [address] | [phone] | + + + + + CBC with Differential (06/11/2020 3:56 AM PDT) + + + + + + | Component | Value | Ref Range | Performed | Pathologist | | | | | At | Signature | + + + + + + | WBC | 10.04 | 3.80 - 11.00 | [facility] | | | | | K/uL | LABORATORY | | + + + + + + | Red Blood | 3.30 (L) | 4.20 - 5.70 | [facility] | | | Cells | | M/uL | LABORATORY | | + + + + + + | Hemoglobin | 9.8 (L) | 13.2 - 17.0 | [facility] | | | | | g/dL | LABORATORY | | + + + + + + | Hematocrit | 30.3 (L) | 39.0 - 50.0 % | [facility] | | | | | | LABORATORY | | + + + + + + | MCV | 91.8 | 80.0 - 100.0 fl | [facility] | | | | | | LABORATORY | | + + + + + + | MCH | 29.7 | 27.0 - 34.0 pg | [facility] | | | | | | LABORATORY | | + + + + + + | MCHC | 32.3 | 32.0 - 35.5 | [facility] | | | | | g/dL | LABORATORY | | + + + + + + | RDW-SD | 68.6 (H) | 37 - 53 fl | [facility] | | | | | | LABORATORY | | + + + + + + | Platelet | 311 | 150 - 400 K/uL | [facility] | | | Count | | | LABORATORY | | + + + + + + | MPV | 9.7Comment: NO NORMAL | fl | [facility] | | | | RANGE ESTABLISHED | | LABORATORY | | + + + + + + | Diff Type | AUTOMATED | | [facility] | | | | | | LABORATORY | | + + + + + + | % nRBC | 0.3 (H) | 0 /100WBC | [facility] | | | | | | LABORATORY | | + + + + + + | % | 74.40 | % | [facility] | | | Neutrophils | | | LABORATORY | | + + + + + + | % | 8.10 | % | [facility] | | | Lymphocytes | | | LABORATORY | | + + + + + + | Monocyte % | 14.40 | % | [facility] | | | | | | LABORATORY | | + + + + + + | Eosinophils | 0.30 | % | [facility] | | | % | | | LABORATORY | | + + + + + + | Basophils % | 0.90 | % | [facility] | | | | | | LABORATORY | | + + + + + + | IMMATURE | 1.90 | % | [facility] | | | GRANULOCYTE | | | LABORATORY | | + + + + + + | Neutrophils | 7.47 (H) | 1.90 - 7.40 | [facility] | | | , Absolute | | K/uL | LABORATORY | | + + + + + + | Absolute | 0.81 (L) | 1.00 - 3.90 | [facility] | | | Lymphocytes | | K/uL | LABORATORY | | + + + + + + | Absolute | 1.45 (H) | 0.00 - 0.80 | [facility] | | | Monocytes | | K/uL | LABORATORY | | + + + + + + | Eosinophils | 0.03 | 0.00 - 0.50 | [facility] | | | , Absolute | | K/uL | LABORATORY | | + + + + + + | Basophils, | 0.09 | 0.00 - 0.10 | [facility] | | | Absolute | | K/uL | LABORATORY | | + + + + + + | IMMATURE | 0.19 (H) | 0.00 - 0.07 | [facility] | | | GRANS AB | | K/uL | LABORATORY | | + + + + + + | RBC | 2+Comment: ANISONORMAL | | [facility] | | | Morphology | PLT MORPHTesting | | LABORATORY | | | | performed at [facility];[address];[place] | | | | | | [id number] | | | | | | | | | | + + + + + + + + | Specimen | + + | Blood | + + + + + + + | Performing | Address | City/State/Zipcode | Phone Number | | Organization | | | | + + + + + | [facility] | [address] | [place] [address] | [phone] | + + + + + documented in this encounter Visit Diagnoses + + | Diagnosis | + + | Admission for antineoplastic chemotherapy - Primary Encounter for antineoplastic | | chemotherapy | + + | Diffuse large B-cell lymphoma of lymph nodes of multiple regions (HCC) | + + | Cervical lymphadenopathy Enlargement of lymph nodes | + + | Supraclavicular adenopathy Enlargement of lymph nodes | + + | Tobacco abuse Tobacco use disorder | + + | Dental caries Unspecified dental caries | + + documented in this encounter Administered Medications + +--------+ +--------+------+------+ | Medication Order | MAR | Action | Dose | Rate | Site | | | Action | Date | | | | + +--------+ +--------+------+------+ | acyclovir (ZOVIRAX) capsule 800 | Given | 06/15/20 | 800 mg | | | | mg 800 mg, Oral, 2 TIMES DAILY, | | 20 8:23 | | | | | First dose on Mon06/10/20 at | | AM PDT | | | | | 2100, Indications: HERPES ZOSTER | | | | | | | PREVENTION IN IMMUNOCOMPROMISED | | | | | | + +--------+ +--------+------+------+ +-------+ +--------+---+---+ | Given | 06/14/20 | 800 mg | | | | | 20 7:50 | | | | | | PM PDT | | | | +-------+ +--------+---+---+ | Given | 06/14/20 | 800 mg | | | | | 20 8:41 | | | | | | AM PDT | | | | +-------+ +--------+---+---+ + +---+ | | | + +---+ | albuterol 90 mcg/puff inhaler 2 | | | puff 2 puff, Inhalation, ONCE | | | PRN, Bronchospasm or hypoxemia, | | | Starting [facility] 06/11/20 at 0924, | | | Shake well. May repeat x 1., | | + +---+ | | | + +---+ + +---------+ + +-------+---+ | cyclophosphamide (CYTOXAN) | New Bag | 06/15/20 | 3,000 mg | 800 | | | 3,000 mg in sodium chloride 0.9% | | 20 4:57 | | mL/hr | | | 250 mL infusion 3,000 mg | | PM PDT | | | | | (rounded from 2,916 mg = 1,296 | | | | | | | mg/m2 | | | | | | | 2.25 m2 Treatment plan recorded | | | | | | | BSA), Intravenous, Administer | | | | | | | over 30 Minutes, ONCE, Mon | | | | | | | 06/15/20 at 1700, For 1 dose, | | | | [...] | | | + +---------+ + +-------+---+ +---+---+ | | | +---+---+ + +---------+ +-------+-------+---+ | dexamethasone (DECADRON) 10 mg | New Bag | 06/12/20 | 10 mg | 204 | | | in sodium chloride 0.9% 50 mL | | 20 4:43 | | mL/hr | | | IVPB 10 mg, Intravenous, | | PM PDT | | | | | Administer over 15 Minutes, ONCE, | | | | | | | 06/12/20 at 1500, For 1 dose | | | | | | + +---------+ +-------+-------+---+ +---+---+ | | | +---+---+ + +---------+ +-------+-------+---+ | dexamethasone (DECADRON) 10 mg | New Bag | 06/13/20 | 10 mg | 204 | | | in sodium chloride 0.9% 50 mL | | 20 4:27 | | mL/hr | | | IVPB 10 mg, Intravenous, | | PM PDT | | | | | Administer over 15 Minutes, ONCE, | | | | | | | 06/13/20 at 1600, For 1 dose | | | | | | + +---------+ +-------+-------+---+ +---+---+ | | | +---+---+ + +---------+ +-------+-------+---+ | dexamethasone (DECADRON) 10 mg | New Bag | 06/14/20 | 10 mg | 204 | | | in sodium chloride 0.9% 50 mL | | 20 3:38 | | mL/hr | | | IVPB 10 mg, Intravenous, | | PM PDT | | | | | Administer over 15 Minutes, ONCE, | | | | | | | 06/14/20 at 1600, For 1 dose | | | | | | + +---------+ +-------+-------+---+ +---+---+ | | | +---+---+ + +-------+ +------+---+---+ | dexamethasone (DECADRON) 4 | Given | 06/12/20 | 8 mg | | | | mg/mL injection 8 mg 8 mg, | | 20 4:18 | | | | | Intravenous, ONCE, 06/12/20 at | | PM PDT | | | | | 1530, For 1 dose | | | | | | + +-------+ +------+---+---+ + +---+ | | | + +---+ | diphenhydrAMINE (BENADRYL) | | | injection 25 mg 25 mg, | | | Intravenous, EVERY 15 MIN PRN, | | | infusion reaction, may repeat x1, | | | Starting [facility] 06/11/20 at 0924, | | | For 2 doses | | + +---+ | | | + +---+ + + + +---+-------+---+ | DOXOrubicin (ADRIAMYCIN) 39 mg, | Rate/Dos | 06/12/20 | | 31.3 | | | etoposide (VEPESID) 194 mg, | e | 20 7:26 | | mL/hr | | | vinCRIStine (ONCOVIN) 0.9 mg in | Verify-D | AM PDT | | | | | sodium chloride 0.9% 500 mL | ual Sign | | | | | | infusion 39 mg (rounded from | | | | | | | 38.88 mg = 17.28 mg/m2/day | | | | | | | 2.25 m2 Treatment plan recorded | | | | | | | BSA), Intravenous, Administer | | | | | | | over 24 Hours, EVERY 24 HOURS | | | | | | | INTERVAL, First dose on Fadia | | | | | | | 06/11/20 at 1330, For 1 dose, | | [...] | + + + +---+-------+---+ + + +---+-------+---+ | Rate/Dose Verify-Dual Sign | 06/12/20 | | 31.3 | | | | 20 3:56 | | mL/hr | | | | AM PDT | | | | + + +---+-------+---+ | Restarted | 06/12/20 | | 31.3 | | | | 20 3:49 | | mL/hr | | | | AM PDT | | | | + + +---+-------+---+ +---+---+ | | | +---+---+ + + + +---+-------+---+ | DOXOrubicin (ADRIAMYCIN) 39 mg, | Rate/Dos | 06/13/20 | | 22.5 | | | etoposide (VEPESID) 194 mg, | e | 20 7:39 | | mL/hr | | | vinCRIStine (ONCOVIN) 0.9 mg in | Verify-D | AM PDT | | | | | sodium chloride 0.9% 500 mL | ual Sign | | | | | | infusion 39 mg (rounded from | | | | | | | 38.88 mg = 17.28 mg/m2/day | | | | | | | 2.25 m2 Treatment plan recorded | | | | | | | BSA), Intravenous, Administer | | | | | | | over 24 Hours, EVERY 24 HOURS | | | | | | | INTERVAL, First dose on Fri | | | | | | | 06/12/20 at 1530, For 1 dose, | | [...] +---+ +---+ | Rate/Dose Verify-Dual Sign | 06/13/20 | | 27 mL/hr | | | | 20 6:50 | | | | | | AM PDT | | | | + + +---+ +---+ | Rate/Dose Verify-Dual Sign | 06/12/20 | | 31 mL/hr | | | | 20 7:25 | | | | | | PM PDT | | | | + + +---+ +---+ +---+---+ | | | +---+---+ + + + +---+ +---+ | DOXOrubicin (ADRIAMYCIN) 39 mg, | Rate/Dos | 06/14/20 | | 27 mL/hr | | | etoposide (VEPESID) 194 mg, | e | 20 7:11 | | | | | vinCRIStine (ONCOVIN) 0.9 mg in | Verify-D | AM PDT | | | | | sodium chloride 0.9% 500 mL | ual Sign | | | | | | infusion 39 mg (rounded from | | | | | | | 38.88 mg = 17.28 mg/m2/day | | | | | | | 2.25 m2 Treatment plan recorded | | | | | | | BSA), Intravenous, Administer | | | | | | | over 24 Hours, EVERY 24 HOURS | | | | | | | INTERVAL, First dose on Sat | | | | | | | 06/13/20 at 1630, For 1 dose, | | | | [...] +-------+ +---+ | Rate/Dose Verify-Dual Sign | 06/13/20 | | 27 mL/hr | | | | 20 7:15 | | | | | | PM PDT | | | | + + +-------+ +---+ | New Bag | 06/13/20 | 39 mg | 27 mL/hr | | | | 20 4:28 | | | | | | PM PDT | | | | + + +-------+ +---+ +---+---+ | | | +---+---+ + + + +---+ +---+ | DOXOrubicin (ADRIAMYCIN) 39 mg, | Rate/Dos | 06/14/20 | | 23 mL/hr | | | etoposide (VEPESID) 194 mg, | e | 20 7:05 | | | | | vinCRIStine (ONCOVIN) 0.9 mg in | Verify-D | PM PDT | | | | | sodium chloride 0.9% 500 mL | ual Sign | | | | | | infusion 39 mg (rounded from | | | | | | | 38.88 mg = 17.28 mg/m2/day | | | | | | | 2.25 m2 Treatment plan recorded | | | | | | | BSA), Intravenous, Administer | | | | | | | over 24 Hours, EVERY 24 HOURS | | | | | | | INTERVAL, First dose on Sun | | | | | | | 06/14/20 at 1630, For 1 dose, | | | | [...] | | + + + +---+ +---+ +---------+ +-------+-------+---+ | New Bag | 06/14/20 | 39 mg | 22.1 | | | | 20 3:33 | | mL/hr | | | | PM PDT | | | | +---------+ +-------+-------+---+ + +---+ | | | + +---+ | EPINEPHrine 1 mg/mL injection | | | 0.3 mg 0.3 mg, Intramuscular, | | | EVERY 5 MIN PRN, Anaphylaxis, | | | Starting Fadia 06/11/20 at 0924, For | | | 3 doses, Administer in the | | | anterior lateral thigh using 1 - | | | 1.5 inch needle for airway | | | obstruction symptoms and/or | | | hypotension., | | + +---+ | | | + +---+ + +-------+ +-------+---+---+ | famotidine (PEPCID) injection | Given | 06/12/20 | 20 mg | | | | 20 mg 20 mg, Intravenous, ONCE | | 20 3:13 | | | | | PRN, Moderate reaction or | | PM PDT | | | | | anaphylaxis., Starting Fadia | | | | | | | 06/11/20 at 0924, Dilute 2 mL of | | | | | | | famotidine with 8 mL of normal | | | | | | | saline to a final concentration | | | | | | | of 2 mg/mL. Administer ordered | | | | | | | dose over a period of at least 2 | | | | | | | minutes., | | | | | | + +-------+ +-------+---+---+ +---+---+ | | | +---+---+ + +-------+ +-------+---+---+ | famotidine (PEPCID) injection | Given | 06/14/20 | 20 mg | | | | 20 mg 20 mg, Intravenous, EVERY | | 20 8:41 | | | | | 12 HOURS, First dose on Fri | | AM PDT | | | | | 06/12/20 at 2100, Dilute 2 mL of | | | | | | | famotidine with 8 mL of normal | | | | | | | saline to a final concentration | | | | | | | of 2 mg/mL. Administer ordered | | | | | | | dose over a period of at least 2 | | | | | | | minutes., | | | | | | + +-------+ +-------+---+---+ +-------+ +-------+---+---+ | Given | 06/13/20 | 20 mg | | | | | 20 9:05 | | | | | | PM PDT | | | | +-------+ +-------+---+---+ | Given | 06/13/20 | 20 mg | | | | | 20 8:18 | | | | | | AM PDT | | | | +-------+ +-------+---+---+ +---+---+ | | | +---+---+ + +-------+ +-------+---+---+ | famotidine (PEPCID) tablet 20 | Given | 06/15/20 | 20 mg | | | | mg 20 mg, Oral, 2 TIMES DAILY, | | 20 8:23 | | | | | First dose on 06/14/20 at | | AM PDT | | | | | 1215 | | | | | | + +-------+ +-------+---+---+ +-------+ +-------+---+---+ | Given | 06/14/20 | 20 mg | | | | | 20 7:49 | | | | | | PM PDT | | | | +-------+ +-------+---+---+ +---+---+ | | | +---+---+ + +---------+ +--------+-------+---+ | fosaprepitant (EMEND) 150 mg in | New Bag | 06/11/20 | 150 mg | 750 | | | sodium chloride 0.9% 250 mL IVPB | | 20 2:06 | | mL/hr | | | 150 mg, Intravenous, Administer | | PM PDT | | | | | over 20 Minutes, ONCE, Fadia | | | | | | | 06/11/20 at 1345, For 1 dose, Do | | | | | | | not shake bag., | | | | | | + +---------+ +--------+-------+---+ +---+---+ | | | +---+---+ + +-------+ +-------+---+---+ | heparin 100 units/mL flush | Given | 06/15/20 | 500 | | | | injection 500 Units 500 Units (5 | | 20 6:55 | Units | | | | mL), Intracatheter, PRN, Line | | PM PDT | | | | | Care, Starting Fadia 06/11/20 at | | | | | | | 0924 | | | | | | + +-------+ +-------+---+---+ +---+---+ | | | +---+---+ + +-------+ +--------+---+---+ | LORazepam (ATIVAN) 2 mg/mL | Given | 06/12/20 | 0.5 mg | | | | injection 0.5 mg 0.5 mg, | | 20 2:41 | | | | | Intravenous, EVERY 2 HOURS PRN, | | PM PDT | | | | | nausea, Starting Fadia 06/11/20 at | | | | | | | 1523 | | | | | | + +-------+ +--------+---+---+ +-------+ +--------+---+---+ | Given | 06/12/20 | 0.5 mg | | | | | 20 8:14 | | | | | | AM PDT | | | | +-------+ +--------+---+---+ | Given | 06/12/20 | 0.5 mg | | | | | 20 4:04 | | | | | | AM PDT | | | | +-------+ +--------+---+---+ +---+---+ | | | +---+---+ + +-------+ +------+---+---+ | LORazepam (ATIVAN) 2 mg/mL | Given | 06/15/20 | 1 mg | | | | injection 1 mg 1 mg, | | 20 6:51 | | | | | Intravenous, EVERY 4 HOURS PRN, | | PM PDT | | | | | nausea, Starting 06/12/20 at | | | | | | | 1730 | | | | | | + +-------+ +------+---+---+ +-------+ +------+---+---+ | Given | 06/15/20 | 1 mg | | | | | 20 6:07 | | | | | | AM PDT | | | | +-------+ +------+---+---+ | Given | 06/14/20 | 1 mg | | | | | 20 4:40 | | | | | | PM PDT | | | | +-------+ +------+---+---+ +---+---+ | | | +---+---+ + +-------+ +------+---+---+ | LORazepam (ATIVAN) injection 1 | Given | 06/13/20 | 1 mg | | | | mg 1 mg, Intravenous, ONCE, Sat | | 20 3:08 | | | | | 06/13/20 at 1530, For 1 dose | | PM PDT | | | | + +-------+ +------+---+---+ + +---+ | | | + +---+ | methylPREDNISolone sodium | | | succinate (solu-MEDROL) 62.5 | | | mg/mL injection 125 mg 125 mg, | | | Intravenous, ONCE PRN, Infusion | | | reaction, Starting Fadia 06/11/20 at | | | 0924, For 1 dose, Mix with 2 mL | | | provided diluent to make 62.5 | | | mg/mL., | | + +---+ | | | + +---+ + +-------+ +------+---+---+ | ondansetron (ZOFRAN) injection | Given | 06/14/20 | 4 mg | | | | 4 mg 4 mg, Intravenous, EVERY 6 | | 20 7:53 | | | | | HOURS PRN, Nausea, Vomiting, | | PM PDT | | | | | Starting 06/10/20 at 1937, | | | | | | | First line agent, | | | | | | + +-------+ +------+---+---+ +-------+ +------+---+---+ | Given | 06/11/20 | 4 mg | | | | | 20 5:41 | | | | | | AM PDT | | | | +-------+ +------+---+---+ +---+---+ | | | +---+---+ + +---------+ +---------+--------+---+ | palonosetron (ALOXI) 0.25 mg, | New Bag | 06/11/20 | 0.25 mg | 424.8 | | | dexamethasone (DECADRON) 12 mg in | | 20 2:30 | | mL/hr | | | sodium chloride 0.9% 100 mL IVPB | | PM PDT | | | | | 0.25 mg, Intravenous, | | | | | | | Administer over 15 Minutes, ONCE, | | | | | | | Fadia 06/11/20 at 1300, For 1 dose, | | | | | | | Administer 30 minutes prior to | | | | | | | chemotherapy., | | | | | | + +---------+ +---------+--------+---+ +---+---+ | | | +---+---+ + +---------+ +---------+--------+---+ | palonosetron (ALOXI) 0.25 mg, | New Bag | 06/15/20 | 0.25 mg | 424.8 | | | dexamethasone (DECADRON) 12 mg in | | 20 4:05 | | mL/hr | | | sodium chloride 0.9% 100 mL IVPB | | PM PDT | | | | | 0.25 mg, Intravenous, | | | | | | | Administer over 15 Minutes, ONCE, | | | | | | | 06/15/20 at 1600, For 1 | | | | | | | dose, Administer 30 minutes prior | | | | | | | to chemotherapy., | | | | | | + +---------+ +---------+--------+---+ +---+---+ | | | +---+---+ + +-------+ +--------+---+---+ | predniSONE (DELTASONE) tablet | Given | 06/15/20 | 120 mg | | | | 120 mg 120 mg, Oral, DAILY, | | 20 8:23 | | | | | First dose on [facility] 06/11/20 at | | AM PDT | | | | | 1200, For 5 days | | | | | | + +-------+ +--------+---+---+ +-------+ +--------+---+---+ | Given | 06/14/20 | 120 mg | | | | | 20 8:41 | | | | | | AM PDT | | | | +-------+ +--------+---+---+ | Given | 06/13/20 | 120 mg | | | | | 20 8:18 | | | | | | AM PDT | | | | +-------+ +--------+---+---+ +---+---+ | | | +---+---+ + +-------+ +-------+---+---+ | prochlorperazine (COMPAZINE) | Given | 06/13/20 | 10 mg | | | | injection 10 mg 10 mg, | | 20 2:27 | | | | | Intravenous, EVERY 4 HOURS PRN, | | PM PDT | | | | | Nausea, Vomiting, Starting Sat | | | | | | | 06/13/20 at 0949 | | | | | | + +-------+ +-------+---+---+ +---+---+ | | | +---+---+ + +-------+ +---------+---+---+ | promethazine (PHENERGAN) (IV | Given | 06/12/20 | 12.5 mg | | | | ONLY) injection 12.5 mg 12.5 mg, | | 20 3:12 | | | | | Intravenous, EVERY 6 HOURS PRN, | | PM PDT | | | | | Nausea, Vomiting, Starting Fri | | | | | | | 06/12/20 at 1202, Vesicant. When | | | | | | | ordered IV push: Dilute to | | | | | | | 10-20mL with NS. Give over 2-3 | | | | | | | minutes into large vein. Do not | | | | | | | give in hand/wrist or foot/ankle | | | | | | | vein. Max dose 12.5mg if giving | | | | | | | peripherally.Infuse in LARGE | | | | | | | Vein Only, | | | | | | + +-------+ +---------+---+---+ +---+---+ | | | +---+---+ + +-------+ +---------+---+---+ | promethazine (PHENERGAN) (IV | Given | 06/14/20 | 12.5 mg | | | | ONLY) injection 12.5 mg 12.5 mg, | | 20 5:53 | | | | | Intravenous, EVERY 4 HOURS PRN, | | PM PDT | | | | | Nausea, Vomiting, Starting Sat | | | | | | | 06/13/20 at 1501, Vesicant. When | | | | | | | ordered IV push: Dilute to | | | | | | | 10-20mL with NS. Give over 2-3 | | | | | | | minutes into large vein. Do not | | | | | | | give in hand/wrist or foot/ankle | | | | | | | vein. Max dose 12.5mg if giving | | | | | | | peripherally.Infuse in LARGE | | | | | | | Vein Only, | | | | | | + +-------+ +---------+---+---+ + +---+ | | | + +---+ | rizatriptan (MAXALT-MOLD STAMPER AND REPAIRER) | | | disintegrating tablet 10 mg 10 | | | mg, Oral, DAILY PRN, MAY REPEAT X | | | 1, Migraine, Starting Wed | | | 06/10/20 at 1948, May repeat | | | initial dose after 2 hours. Do | | | not exceed 30 mg in 24 hours., | | + +---+ | | | + +---+ | sodium chloride 0.9% (NS) bolus | | | 250 mL 250 mL, Intravenous, | | | PRN, Flush before and after IV | | | medication(s) and as needed with | | | NS, Starting [facility] 06/11/20 at 0924 | | + +---+ | | | + +---+ + +---------+ +---------+-------+---+ | sodium chloride 0.9% (NS) bolus | New Bag | 06/15/20 | 500 mLs | 500 | | | 500 mL 500 mL, Intravenous, | | 20 4:05 | | mL/hr | | | Administer over 1 Hours, ONCE, | | PM PDT | | | | | 06/15/20 at 1600, For 1 dose, | | | | | | | Administer 500 mL NS before | | | | | | | cyclophosphamide administration., | | | | | | | | | | | | | + +---------+ +---------+-------+---+ +---+---+ | | | +---+---+ + +---------+ +---------+-------+---+ | sodium chloride 0.9% (NS) bolus | New Bag | 06/15/20 | 500 mLs | 500 | | | 500 mL 500 mL, Intravenous, | | 20 5:40 | | mL/hr | | | Administer over 1 Hours, ONCE, | | PM PDT | | | | | 06/15/20 at 1730, For 1 dose, | | | | [...] reacton or anaphylaxis., Starting | | | Fadia 06/11/20 at 0924, Run wide | | | open to gravity., | | + +---+ | | | + +---+ + +---------+ +---+-------+---+ | sodium chloride 0.9% (NS) | New Bag | 06/14/20 | | 100 | | | infusion at 100 mL/hr, | | 20 7:51 | | mL/hr | | | Intravenous, CONTINUOUS, Starting | | PM PDT | | | | | 06/10/20 at 2000 | | | | | | + +---------+ +---+-------+---+ +---------+ +---+-------+---+ | New Bag | 06/14/20 | | 100 | | | | 20 5:53 | | mL/hr | | | | PM PDT | | | | +---------+ +---+-------+---+ | New Bag | 06/14/20 | | 100 | | | | 20 8:44 | | mL/hr | | | | AM PDT | | | | +---------+ +---+-------+---+ + +---+ | | | + +---+ | sodium chloride 0.9% flush 10 | | | mL 10 mL, Intracatheter, PRN, | | | Line Care, Starting Fadia 06/11/20 | | | at 0924 | | + +---+ | | | + +---+ + +-------+ +-----+---+---+ | sucralfate (CARAFATE) 1 g/10 mL | Given | 06/13/20 | 1 g | | | | suspension 1 g 1 g, Oral, 4 | | 20 11:22 | | | | | TIMES DAILY BEFORE MEALS & | | AM PDT | | | | | NIGHTLY, First dose on Fri | | | | | | | 06/12/20 at 1630, [place], | | | | | | + +-------+ +-----+---+---+ +-------+ +-----+---+---+ | Given | 06/13/20 | 1 g | | | | | 20 8:18 | | | | | | AM PDT | | | | +-------+ +-----+---+---+ | Given | 06/12/20 | 1 g | | | | | 20 4:18 | | | | | | PM PDT | | | | +-------+ +-----+---+---+ +---+---+ | | | +---+---+ documented in this encounter
--- OUTSIDE RECORDS SUMMARY | ~2020-06-23 | XMS | Encounter Summary ---
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 His mom is the sanitation truck driver . Discharge instructions given . Pt [...] meds. documented in this encounter Procedure Notes Marilou Mcmullen, WIND TURBINE TECHNICIAN - 04/02/2020 10:55 AM PDTPrior to the [...] in a slightly different location with the [employer] needle. The patie nt exhibited severe pain [...] sedation for this reason. Marilou Mcmullen, MSN, WIND TURBINE TECHNICIAN, AOCNP [facility] documented in this e ncounter Miscellaneous Notes Addendum Note - Monica Pluido RN - 04/03/2020 10:09 AM PDT Encounter addended by: Jessica Pulido RN on: 04/03/2020 10:09 AM Actions taken: Flowsheet accepted Electronically signed by Moncia Pulido RN at 2019 10:09 AM PDTdocumented [...] [place] | | | | | | [address] | | | | | | | | +--------+ + + + + | 06/29/ | Office | Oncology | Wilton Jeff MD | | | 2019 | Visit | | [address] | | | | | | [place] | | | | | | [address] | | | | | | | | | | | | Marilou Mcmullen, | | | | | | W[employer] TURBINE TECHNICIAN [address] | | | | | [address] | | | | | | [place] [address] | | | | | | [phone] | | | | | | | | +--------+ + + + + | 06/29/ | Appointment | Infusion Therapy | Wilton Jeff MD | | | 2019 | | | [address] | | | | | | [place] | | | | | | [address] | | | | | | | | +--------+ + + + + | 07/14/ | Office | Otolaryngology | She Huang | | | 2019 | Visit | | DO Sophia Canela | | | | | | [address] | | | | | | [place] [address] | | | | | | [phone] | | | | | | | | +--------+ + + + + | 07/20/ | Appointment | Infusion Therapy | Wilton Jeff MD | | | 2019 | | | [address] | | | | | | [place] | | | | | | [address] | | | | | | | | +--------+ + + + + | 07/20/ | Office | Oncology | Wilton Jeff MD | | | 2019 | Visit | | [address] | | | | | | [place] | | | | | | [address] | | | | | | | | +--------+ + + + + | 07/20/ | Appointment | Infusion Therapy | Wilton Jeff MD | | | 2019 | | | [address] | | | | | | [place] | | | | | | [address] | | | | | | | | +--------+ + + + + | 08/17/ | Appointment | Infusion Therapy | Wilton Jeff MD | | | 2019 | | | [address] | | | | | | [place] | | | | | | [address] | | | | | | | | +--------+ + + + + | 08/17/ | Office | Oncology | Wilton Jeff MD | | | 2019 | Visit | | [address] | | | | | | [place] | | | | | | [address] | | | | | | | [...] | | | | | | Starting [facility] 04/02/20 at 1106 | | | | [...]
--- OUTSIDE RECORDS SUMMARY | ~2020-06-23 | XMS | Encounter Summary ---
Demographics + + + | Address | [address] | | | [place] [address] | + + + | Home Phone [...] Author + + + | Author | [facility] | | | and [place] | + + + | Organization | [facility] | | [...] Team Providers + +------+ + | Care Features Reporter Name | Role | Phone | + [...] | of multiple | [place], | [place] [address] | | | | | regions | [place] [address] | Phone: | | | | | (HCC) | Phone: | [phone] | | | | | Procedures | [phone] | Fax: | | | | | [place] | Fax: | [phone] | | | | | VINCRISTINE | [phone] | | | | | | SULFATE 1 MG | | | | | | | INJ [place] | | | | | | | DOXORUBICIN | | | | | | | HCL | | | | | | | INJECTION, | | | | | | | 10 MG [place] | | | | | | | CYCLOPHOSPHA | | | | | | | MIDE 100 MG | | | | | | | INJ [place] | | | | | | | ETOPOSIDE | | | | | | | INJECTION, | | | | | | | 10 MG [place] | | | | | | | PALONOSETRON | | | | | | | HCL, 25 MCG | | | | | | | [place] | | | | | | | INJECTION, | | | | | | | UDENYCA 0.5 | | | | | | | MG [place] INJ | | | | | | | TRUXIMA 10 | | | | | | | MG Q5115 - | | | | | | | [place] INJ | | | | | | | TRUXIMA 10 | | | | | | | MG- | | | | | | | RITUXIMAB-ab | | | | | | | bs [id number] - | | | | | | | [place] | | | | | | | VINCRISTINE | | | | | | | SULFATE 1 MG | | | | | | | INJ J9000 | | | | | | | - [place] | | | | | | | DOXORUBICIN | | | | | | | HCL | | | | | | | INJECTION, | | | | | | | 10 MG- DOXO | | | | | | | [id number] - [place] | | | | | | | | | | | | | | CYCLOPHOSPHA | | | | | | | MIDE 100 MG | | | | | | | INJ- CYTOXAN | | | | | | | [id number] - | | | | | | | [place] ETOPOSIDE | | | | | | | INJECTION, | | | | | | | 10 MG Q5111 | | | | | | | - [place] | | | | | | | INJECTION, | | | | | | | UDENYCA 0.5 | | | | | | | MG J2469 - | | | | | | | [place] | | | | | | | [...] + + | 06/08/ | Hospital | [facility] | Wilton Jeff MD | 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 | | | | | [...] [place] | | | | | | [address] | | | | | | | | +--------+ + + + + | 06/29/ | Office | Oncology | Wilton Jeff MD | | | 2019 | Visit | | [address] | | | | | | [place] | | | | | | [address] | | | | | | | | | | | | Marilou Mcmullen, | | | | | | MATERIALS HANDLING EQUIPMENT OPERATOR [address] | | | | | | [address] | | | | | | [place] [address] | | | | | | [phone] | | | | | | | | +--------+ + + + + | 06/29/ | Appointment | Infusion Therapy | Wilton Jeff MD | | | 2019 | | | [address] | | | | | | [place] | | | | | | [address] | | | | | | | | +--------+ + + + + | 07/14/ | Office | Otolaryngology | She Huang | | | 2019 | Visit | | DO Sophia Canela | | | | | | [address] | | | | | | [place] [address] | | | | | | [phone] | | | | | | | | +--------+ + + + + | 07/20/ | Appointment | Infusion Therapy | Wilton Jeff MD | | | 2019 | | | [address] | | | | | | [place] | | | | | | [address] | | | | | | | | +--------+ + + + + | 07/20/ | Office | Oncology | Wilton Jeff MD | | | 2019 | Visit | | [address] | | | | | | [place] | | | | | | [address] | | | | | | | | +--------+ + + + + | 11/16/ | Appointment | Infusion Therapy | Wilton Jeff MD | | | 2019 | | | [address] | | | | | | [place] | | | | | | [address] | | | | | | | | +--------+ + + + + | 08/17/ | Appointment | Infusion Therapy | Wilton Jeff MD | | | 2019 | | | [address] | | | | | | [place] | | | | | | [address] | | | | | | | | +--------+ + + + + | 08/17/ | Office | Oncology | Wilton Jeff MD | | | 2019 | Visit | | [address] | | | | | | [place] | | | | | | [address] | | | | | | | [...] | | | | over 60 minutes. CW=[id number] Bag | | | | | | [...]
--- OUTSIDE RECORDS SUMMARY | ~2020-06-23 | XMS | Encounter Summary ---
Demographics + + + | Address | [address] | | | [place] [address] | + + + | Home Phone [...] Team Providers + +------+ + | Care Brewery Representative Name | Role | Phone | + +------+ + | Myrna Mejia MD | PCP | | + +------+ + Encounter Details +--------+ + + + + | Date | Type | Department | Care Team | Description | +--------+ + + + + | 04/03/ | Documentati | [facility] | Bandar Vega | | | 2020 | on | HEMATOLOGY AND | [facility] | | | | | [facility]Y PHARMACY | | | | | | [address] | | | | | | [place] | | | | | | [address] | | | | | | [phone] | | | +--------+ + + + [...] of this encounter Progress Notes Bandar Vega, [facility] - 04/03/2020 3:[address] [facility] Hematology and Oncology Clinical Pharmacy New Patient [...] EPOCH (Dose-Adjusted)-R (NHL); R-EPOCH Dose Adjusted (NHL); Zthnazo-Dytnizuer-Aoscqmmknx-Vi wlsfhzile-Bjhoxpjkzsnugvnu-Aehrctewtsa (Dose-Adjusted) (NHL); Rituximab-EPOCH Dose Adjusted (NHL) Regimen [...] [place] | | | | | | [id number] | | | | | | | | +--------+ + + + + | 06/29/ | Office | Oncology | Wilton Jeff MD | | 2019 | Visit | | [address] | | | | | | [place] | | | | | | [address] | | | | | | | | | | | | Marilou Mcmullen, | | | | | | SITE FOREMAN [address] | | | | | [address] | | | | | | [place] [address] | | | | | | [phone] | | | | | | | | +--------+ + + + + | 06/29/ | Appointment | Infusion Therapy | Wilton Jeff MD | | | 2019 | | | [address] | | | | | | [place] | | | | | | [address] | | | | | | | | +--------+ + + + + | 07/14/ | Office | Otolaryngology | She Huang | | | 2019 | Visit | | DO Sophia Canela | | | | | | [address] | | | | | | [place] [address] | | | | | | [phone] | | | | | | | | +--------+ + + + + | 07/20/ | Appointment | Infusion Therapy | Wilton Jeff MD | | | 2019 | | | [address] | | | | | | [place] | | | | | | [address] | | | | | | | | +--------+ + + + + | 07/20/ | Office | Oncology | Wilton Jeff MD | | | 2019 | Visit | | [address] | | | | | | [place] | | | | | | [address] | | | | | | | | +--------+ + + + + | 07/20/ | Appointment | Infusion Therapy | Wilton Jeff MD | | | 2019 | | | [address] | | | | | | [place] | | | | | | [address] | | | | | | | | +--------+ + + + + | 08/17/ | Appointment | Infusion Therapy | Wilton Jeff MD | | | 2019 | | | [address] | | | | | | [place] | | | | | | [address] | | | | | | | | +--------+ + + + + | 08/17/ | Office | Oncology | Wilton Jeff MD | | | 2020 | Visit | | [address] | | | | | | [place] | | | | | | [address] | | | | | | | | +--------+ + + + + documented as of this encounter Visit Diagnoses Not on filedocumented in this encounter
--- OUTSIDE RECORDS SUMMARY | ~2020-06-23 | XMS | Encounter Summary ---
Demographics + + + | Address | [address] | | | [place] [address] | + + + | Home Phone | | + + + | Preferred Language | Unknown | + + + | Marital Status | Single | + + + | Scientologist Affiliation | Unknown | + + + [...] Providers + +------+ + | Care Supervisor Dried Yeast Name | Role | Phone | + [...] + + | 06/08/ | Office | [facility] | Wilton Jeff MD | Diffuse large B-cell | | 2019 | Visit | HEMATOLOGY AND | [address] | lymphoma of lymph | | | | ONCOLOGY [address] | [place] | nodes of multiple | | | | [address] | [address] | regions (HCC) | | | | [place] | | (Primary Dx) | | | | [address] | | | | | | [phone] | | | +--------+---------+ + + + [...] might be different from t he original. [facility] Hematology & Oncology Oncology Progress Note [...] of rituximab on April 06, 2020 at [facility]. He then received days 1-5 of [...] NODE; Surgeon: She Huang DO; Location: [facility] Family History Problem Relation Age of [...] file Gets together: Not on file Attends jehovah's witness service: Not on file Active member of [...] Immunocompromised 240 capsule 5 aluminum & magnesium rqorwrpcp-owqngzqtmdm-jelywxhdsfQDWFG-lidocaine Swish and spit 15 mLs every 4 hours as needed for Sore Throat. 600 mL 2 benzonatate (TESSALON) 100 mg capsule Take 100 mg by mouth 3 times daily as needed for Cough. uqrynlwhzrlunlq-tlcdsjbufenmxh-ziuyxjxl (DUKES MOUTHWASH) suspension Swish and spit 10 [...] of rituximab on April 06, 2020 at [facility]. He then received days 1-5 of [...] any questions or concerns. Wilton Jeff MD [facility] Hematology & Oncology 06/08/2020 Portions of [...] [place] | | | | | | [address] | | | | | | | | +--------+ + + + + | 06/29/ | Office | Oncology | Wilton Jeff MD | | | 2019 | Visit | | [address] | | | | | | [place] | | | | | | [address] | | | | | | | | | | | | Marilou Mcmullen, | | | | | | LARGE SHEETFED PRESS OPERATOR [address] | | | | | | [address] | | | | | | [place] [address] | | | | | | [phone] | | | | | | | | +--------+ + + + + | 06/29/ | Appointment | Infusion Therapy | Wilton Jeff MD | | | 2019 | | | [address] | | | | | | [place] | | | | | | [address] | | | | | | | | +--------+ + + + + | 07/14/ | Office | Otolaryngology | She Huang | | | 2019 | Visit | | DO Sophia Canela | | | | | | [address] | | | | | | [place] [address] | | | | | | [phone] | | | | | | | | +--------+ + + + + | 07/20/ | Appointment | Infusion Therapy | Wilton Jeff MD | | | 2019 | | | [address] | | | | | | [place] | | | | | | [address] | | | | | | | | +--------+ + + + + | 07/20/ | Office | Oncology | Wilton Jeff MD | | | 2019 | Visit | | [address] | | | | | | [place] | | | | | | [address] | | | | | | | | +--------+ + + + + | 07/20/ | Appointment | Infusion Therapy | Wilton Jeff MD | | | 2019 | | | [address] | | | | | | [place] | | | | | | [address] | | | | | | | | +--------+ + + + + | 08/17/ | Appointment | Infusion Therapy | Wilton Jeff MD | | | 2019 | | | [address] | | | | | | [place] | | | | | | [address] | | | | | | | | +--------+ + + + + | 08/17/ | Office | Oncology | Wilton Jeff MD | | | 2019 | Visit | | [address] | | | | | | [place] | | | | | | [address] | | | | | | | | +--------+ + + + + documented as of this encounter Visit Diagnoses + + | Diagnosis | + + | 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
--- OUTSIDE RECORDS SUMMARY | ~2020-06-23 | XMS | Encounter Summary ---
Demographics + + + | Address | [address] | | | [place] [address] | + + + | Home Phone | | + + + | Preferred Language | Unknown | + + + | Marital Status | Single | + + + | Mandaeism Affiliation | Unknown | + + + | Race | White | + + + | Ethnic Group | Not or | + + + Author + + + | Author | [facility] | | | and [place] | + + + | Organization | [facility] | | [...] Team Providers + +------+ + | Care Medical Supervisor Name | Role | Phone | + +------+ + | Myrna Mejia MD | PCP | | + +------+ + Reason for Visit + + + | Reason | Comments | + + + | Injections | | + + + Treatment/Therapy Plan [...] | | | Therapy | Diffuse | MD Wilton | Infusion | | | | | large B-cell | [address] | | | | | lymphoma of | [address] | | | | | lymph nodes | AVE | [place], | | | | | of multiple | [place], | [place] [address] | | | | | regions | [place] [address] | Phone: | | | | | (HCC) | Phone: | [phone] | | | | | Procedures | [phone] | Fax: | | | | | [place] | Fax: | [phone] | | | | | VINCRISTINE | [phone] | | | | | | SULFATE 1 MG | | | | | | | INJ [place] | | | | | | | DOXORUBICIN | | | | | | | HCL | | | | | | | INJECTION, | | | | | | | 10 MG [place] | | | | | | | CYCLOPHOSPHA | | | | | | | MIDE 100 MG | | | | | | | INJ [place] | | | | | | | ETOPOSIDE | | | | | | | INJECTION, | | | | | | | 10 MG ND | | | | | | | PALONOSETRON | | | | | | | HCL, 25 MCG | | | | | | | [place] | | | | | | | INJECTION, | | | | | | | UDENYCA 0.5 | | | | | | | MG [place] INJ | | | | | | | TRUXIMA 10 | | | | | | | MG Q5115 - | | | | | | | [place] INJ | | | | | | | TRUXIMA 10 | | | | | | | MG- | | | | | | | RITUXIMAB-ab | | | | | | | bs [id number] - | | | | | | | ND | | | | | | | VINCRISTINE | | | | | | | SULFATE 1 MG | | | | | | | INJ J9000 | | | | | | | - [place] | | | | | | | DOXORUBICIN | | | | | | | HCL | | | | | | | INJECTION, | | | | | | | 10 MG- DOXO | | | | | | | J9070 - [place] | | | | | | | | | | | | | | CYCLOPHOSPHA | | | | | | | MIDE 100 MG | | | | | | | INJ- CYTOXAN | | | | | | | J9181 - | | | | | | | [place] ETOPOSIDE | | | | | | | INJECTION, | | | | | | | 10 MG Q5111 | | | | | | | - [place] | | | | | | | INJECTION, | | | | | | | UDENYCA 0.5 | | | | | | | MG J2469 - | | | | | | | [place] | | | | | | | PALONOSETRON | | | | | | | HCL, 25 | | | | | | | MCG- ALOXI | | | + +--------+ + + + + Encounter Details +--------+ + + + + | Date | Type | Department | Care Team | Description | +--------+ + + + + | 04/14/ | Hospital | [facility] | Wilton Jeff MD | Large B-cell | | 2019 | Encounter | HEMATOLOGY AND | [address] | lymphoma (HCC) | | | | ONCOLOGY INFUSIONS | [place], [place] | (Primary Dx) | | | | [address] | [address] | | | | | AVE [place], [place] | | | | | | [address] | Kaela Britton, | | | | | [phone] | Applied Psychology Professor | | +--------+ + + + + [...] + + + | Blood Pressure | 115/66 | 04/14/2020 2:00 PM | | | | | PDT | | + + + + + | Pulse | 83 | 04/14/2020 2:00 PM | | | | | PDT | | + + + + + | Temperature | 36.8 C (98.2 F) | 04/14/2020 2:00 PM | | | | | PDT | | + + + + + | Respiratory Rate | - | - | | + + + + + | Oxygen Saturation | 97% | 04/14/2020 2:00 PM | | | | | PDT [...] in this encounter Discharge Instructions Patient Instructions Kaela Britton, Applied Psychology Professor - 04/14/2020 2:42 PM PDT Pegfilgrastim injection Brand Names: Yolanda, Neulasta, UDINOCENCIAANSLEYA, Ziextiannazo What is this medicine? PEGFILGRASTIM (PEG fern [...] provider to get one. Talk to your manager bilingual regarding the use of this medicine in children. While this drug m ay be prescribed for selected conditions, precautions do apply. What side effects may I notice from receiving this medicine? Side effects that you should report to your doctor or health plant care worker as soon as p ossible: allergic reactions [...] attention (report to your doctor or health plant care worker if they continue or are bothersome): bone [...] your dose. Call your doctor or health plant care worker if you miss your dose. If you [...] pharmacist, or health care provider. Copyright 2020 Elsevier Neutropenia White blood cells (WBCs) help protect the body from infection. Neutrophils are a type of wh ite blood cell. Their main job is to help the body fight bacterial and fungal infections. Ne utropenia occurs when there are fewer neutrophils in the blood than normal. It can range fro m mild to severe. This depends on the number of neutrophils in the blood. Severe neutropenia puts a person at higher risk for having more infections. Bacterial and fungal infections ar e most common. Your healthcare provider can tell you more about your condition and whether i t needs to be treated. What causes neutropenia? There are2 main types of neutropenia: congenital and acquired. Each type has many causes: Congenital neutropenia. These are the types that are present at . They are caused b y certain rare genetic conditions, such as Kostmann syndrome. Most often the neutropenia is mild and normal for certain ethnic groups. Acquired neutropenia. This type is not present at . Causes include: ? Certain medicines, such as antibiotics and chemotherapy medicines ? Certain autoimmune conditions ? Certain viral, bacterial, or parasitic infections ? Too little folate or vitamin B-12 in the diet ? Underlying bone marrow problem, such as leukemia or myelodysplastic syndrome (MDS) ? Other causes How is neutropenia diagnosed? Your healthcare provider may check for neutropenia if you have frequent infections. Your pr ovider may also check for neutropenia if you re having certain treatments, such as chemoth erapy, which is known to cause a lower neutrophil count. Tests will be done to confirm the p roblem. These may include: A complete blood cell count (CBC). This test measures the amounts of the different types of cells in your blood. This includes the WBCs. The WBC count can be broken down further to find the number of neutrophils and immature neutrophils (bands) in your blood. This is call ed an absolute neutrophil count (ANC). A blood smear. This test checks for the different types of blood cells in your blood and how they appear. A sample of your blood is spread on a glass slide and viewed under a micro scope. A stain is used so the blood cells can be seen. A bone marrow aspiration and biopsy. This test checks for problems with how your bone ma rrow makes blood cells. A needle is used to remove a sample of the bone marrow in your hipbo ne. The sample is then sent to a lab to be tested for problems. How is neutropenia treated? If there is a clear cause of neutropenia, it is addressed. For instance, if a medicine i s the cause, it may be stopped or changed. For mild cases, often no treatment is needed. For moderate to severe cases, treatment is likely needed. This may include: ? G-CSF (granulocyte-colony stimulating factor). This is a special type of protein. It help s promote the growth and activity of neutrophils. G-CSF is given by injection. ? Bone marrow transplant.This treatment replaces diseased bone marrow cells with healthy cells from a matched donor. This treatment is done only in specific severe cases. What is the long-term outcome of neutropenia? The outcome of neutropenia varies for each person. For some people, neutropenia may resolve after a few weeks or months. For other people, it may be long-lasting. In these cases, ongo ing care and treatment is needed. Your healthcare provider will talk to you more about what to expect from your condition. When to call your healthcare provider Call your healthcare provider right away if you have any of the following: Fever of 100.4F (38C) or higher. Call 911 or 24-hour urgent care. This is especially important if you have severe neutropenia, which puts you at higher risk for a life-threaten ing infection. Cold sweat or chills Chest pain or trouble breathing Sore throat Extreme tiredness or fatigue Nausea and vomiting Redness, warmth, or drainage from any open cuts or wounds Pain or burning with urination; frequent urination Pain, burning, or bleeding in the rectum Severe constipation or diarrhea Bloody stool or urine How can I prevent infections? With neutropenia, you need to take extra care to protect yourself from infection: Wash your hands often, especially before eating and after using the bathroom. Use clean, running water and soap. Scrub for 20 seconds, or for as long as it takes to sing the "Happy Birthday" song from beginning to end, twice. Or use a hand gel that contains at least 60% a lcohol. Stay away from crowds and close contact with others who may be ill. Cook meat and eggs all the way through to kill any germs. Carefully wash raw fruits and vegetables. Clean items you use often with disinfectant wipes. This includes phones and computer lopez boards. Don't touch your eyes, nose, and mouth, especially if your hands are not clean. Practice good oral hygiene. Use a soft toothbrush. Also, brush and floss your teeth gent ly. Always wipe from front to back after a bowel movement. Bathe every day and use an unscented lotion to prevent cracked skin. Keep cuts and scrapes clean and covered until they heal. Don't share items such as drinks, eating utensils, towels, toothbrushes, razors, clothin g, and sports equipment. Store and handle foods safely to prevent food-borne illness. Protect yourself against pet waste (urine and stool) by using vinyl gloves when cleaning . Always use gloves when gardening. Ask your healthcare provider if you need to take antibiotics before and after having any dental or medical procedures. Ask your healthcare provider if you need to wear a special mask near construction sites or farm areas. Welcome [employer] venkatesh reviewed this educational content on 12/04/201919998778-0557 [employer]. [address] [place] [address], [place] [address]. All righ ts reserved. This information is not intended as a substitute for professional medical care. Always follow your healthcare professional's instructions. documented in this encounter Medications at Time [...] Sore | | | | | | q-fsyrljzmjmWKKDY-bs | Throat. | | | | | [...] | | | | ([facility]) | | | | | | + + + +---------+ + + documented as of this encounter Progress Notes Kaela Britton Applied Psychology Professor - 04/14/2020 3:00 PM PDTUdenyca 6mg given for chemo soo urmila neutropenia.Patient tolerated the injection well. Patient given printed and verbal info rmation on all new medication given. Patient stated understanding of all information and all their questions were answered.No reaction noted; no redness, heat or swelling at injection site. Patient stated they felt fine. documented in this encounter Plan of Treatment [...] [place] | | | | | | [address] | | | | | | | | +--------+ + + + + | 06/29/ | Office | Oncology | Wilton Jeff MD | | | 2019 | Visit | | [address] | | | | | | [place] | | | | | | [address] | | | | | | | | | | | | Marilou Mcmullen, | | | | | | [place] [address] | | | | | [address] | | | | | | [place] [address] | | | | | | [phone] | | | | | | | | +--------+ + + + + | 06/29/ | Appointment | Infusion Therapy | Wilton Jeff MD | | | 2019 | | | [address] | | | | | | [place] | | | | | | [address] | | | | | | | | +--------+ + + + + | 07/14/ | Office | Otolaryngology | She Huang | | | 2019 | Visit | | DO Sophia Canela | | | | | | [address] | | | | | | [place] [address] | | | | | | [phone] | | | | | | | | +--------+ + + + + | 07/20/ | Appointment | Infusion Therapy | Wilton Jeff MD | | | 2019 | | | [address] | | | | | | [place] | | | | | | [address] | | | | | | | | +--------+ + + + + | 07/20/ | Office | Oncology | Wilton Jeff MD | | | 2019 | Visit | | [address] | | | | | | [place] | | | | | | [address] | | | | | | | | +--------+ + + + + | 07/20/ | Appointment | Infusion Therapy | Wilton Jeff MD | | | 2019 | | | [address] | | | | | | [place] | | | | | | [address] | | | | | | | | +--------+ + + + + | 08/17/ | Appointment | Infusion Therapy | Wilton Jeff MD | | | 2019 | | | [address] | | | | | | [place] | | | | | | [address] | | | | | | | | +--------+ + + + + | 08/17/ | Office | Oncology | Wilton Jeff MD | | | 2019 | Visit | | [address] | | | | | | [place] | | | | | | [address] | | | | | | | | +--------+ + + + + documented as of this encounter Visit Diagnoses + + | Diagnosis | + + | Large B-cell lymphoma (HCC) - Primary Other malignant lymphomas, unspecified site, | | extranodal and solid organ sites | + + documented in this encounter Administered Medications + +--------+ +------+------+ + | Medication Order | MAR | Action | Dose | Rate | Site | | | Action | Date | | | | + +--------+ +------+------+ + | pegfilgrastim-cbqv (UDENYCA) | Given | 04/14/20 | 6 mg | | Abdomen- | | injection 6 mg 6 mg, | | 20 2:54 | | | RLQ | | Subcutaneous, ONCE, 8/11/20 | | PM PDT | | | | | at 1500, For 1 dose, Keep in | | | | | | | refrigerator. Do not shake. | | | | | | | Administer pegfilgrastim once | | | | | | | between 24 hours to 72 hours | | | | | | | after last chemotherapy., | | | | | | + +--------+ +------+------+ + +---+---+ | | | +---+---+ documented in this encounter
--- OUTSIDE RECORDS SUMMARY | ~2020-06-23 | XMS | Encounter Summary ---
Demographics + + + | Address | [address] | | | [place] [address] | + + + | Home Phone | | + + + | Preferred Language | Unknown | + + + | Marital Status | Single | + + + | Alevism Affiliation | Unknown | + + + [...] Providers + +------+ + | Care Clinical Nutritionist Name | Role | Phone | + +------+ + | Myrna Mejia MD | PCP | | + +------+ + Encounter Details +--------+ + + + + | Date | Type | Department | Care Team | Description | +--------+ + + + + | 04/02/ | Orders Only | [facility] | Wilton Jeff MD | | | 2020 | | HEMATOLOGY AND | [address] | | | | | ONCOLOGY [address] | [place] | | | | | [address] | [address] | | | | | [place] | | | | | | [address] | | | | | | [phone] | | | +--------+ + + + [...] [place] | | | | | | [address] | | | | | | | | +--------+ + + + + | 06/29/ | Office | Oncology | Wilton Jeff MD | | | 2019 | Visit | | [address] | | | | | | [place] | | | | | | [address] | | | | | | | | | | | | Marilou Mcmullen, | | | | | | TILE PICKER [address] | | | | | | [address] | | | | | | [place] [address] | | | | | | [phone] | | | | | | | | +--------+ + + + + | 06/29/ | Appointment | Infusion Therapy | Wilton Jeff MD | | | 2019 | | | [address] | | | | | | [place] | | | | | | [address] | | | | | | | | +--------+ + + + + | 07/14/ | Office | Otolaryngology | She Huang | | | 2019 | Visit | | DO Sophia Canela | | | | | | [place] [address] | | | | | | [place] [address] | | | | | | [phone] | | | | | | | | +--------+ + + + + | 07/20/ | Appointment | Infusion Therapy | Wilton Jeff MD | | | 2019 | | | [address] | | | | | | [place] | | | | | | [address] | | | | | | | | +--------+ + + + + | 07/20/ | Office | Oncology | Wilton Jeff MD | | | 2019 | Visit | | [address] | | | | | | [place] | | | | | | [address] | | | | | | | | +--------+ + + + + | 07/20/ | Appointment | Infusion Therapy | Wilton Jeff MD | | | 2019 | | | [address] | | | | | | [place] | | | | | | [address] | | | | | | | | +--------+ + + + + | 08/17/ | Appointment | Infusion Therapy | Wilton Jeff MD | | | 2019 | | | [address] | | | | | | [place] | | | | | | [address] | | | | | | | | +--------+ + + + + | 08/17/ | Office | Oncology | Wilton Jeff MD | | | 2019 | Visit | | [address] | | | | | | [place] | | | | | | [address] | | | | | | | | +--------+ + + + + documented as of this encounter Procedures + +--------+ + + + | Procedure Name | Priori | Date/Time | Associated Diagnosis | Comments | | | ty | | | | + +--------+ + + + | HEPATITIS PANEL | Routin | 04/02/2020 | | Results for this | | | e | 11:41 AM | | procedure are in the | | | | PDT | | results section. | + +--------+ + + + documented in this encounter Results Hepatitis Panel (04/02/2020 11:41 AM PDT) + + + + + + | Component | Value | Ref Range | Performed | Pathologist | | | | | At | Signature | + + + + + + | Hepatitis A | Negative | Negative | REFERENCE | | | Ab Total | | | LAB | | | | | | [facility] | | | | | | [facility] | | + + + + + + | Hepatitis B | Negative | Negative | REFERENCE | | | Surface Ag | | | LAB | | | | | | [facility] | | | | | | [facility] | | + + + + + + | Hepatitis B | Negative | Negative | REFERENCE | | | Core Ab | | | LAB | | | Total | | | [facility] | | | | | | [facility] | | + + + + + + | Hepatitis B | Non ReactiveComment: | | REFERENCE | | | Surface | Non | | LAB | | | Antibody | Reactive: Inconsistent | | [facility] | | | Qual | with immunity, | | LABORATORY | | | | | | | | | | less than 10 | | | | | | mIU/mL | | | | | | Reactive: | | | | | | Consistent with | | | | | | immunity, | | | | | | | | | | | | greater than 9.9 mIU/mL | | | | | | | | | | + + + + + + | HCV Ab | <0.1Comment: | 0.0 - 0.9 s/co | REFERENCE | | | | | ratio | LAB | | | | Negative: | | [facility] | | | | < 0.8 | | LABORATORY | | | | | | | | | | Indeterminate: 0.8 | | | | | | - 0.9 | | | | | | | | | | | | Positive: > | | | | | | 0.9The CDC recommends | | | | | | that a positive HCV | | | | | | antibody resultbe | | | | | | followed up with a HCV | | | | | | Nucleic Acid | | | | | | Amplificationtest | | | | | | ([id number]).Testing | | | | | | performed at [facility], | | | | | | [address], [address], | | | | | | [facility] [address] | | | | + + + + + + + + | Specimen | + + | | + + + + + + + | Performing | Address | City/State/Zipcode | Phone Number | | Organization | | | | + + + + + | REFERENCE LAB | [address] [place] [address] | [place], [place] | [phone] | | [facility] | Blvd[address] | [address] | | | LABORATORY | | | | + + + + + | REFERENCE LAB | [address] [facility] | [place], [place] | | | [facility] | Blvd. | [address] | | | LABORATORY | | | | + + + + + documented in this encounter Visit Diagnoses Not on filedocumented in this encounter"
--- OUTSIDE RECORDS SUMMARY | ~2020-06-23 | XMS | Encounter Summary ---
Demographics + + + | Address | [address] | | | [place] [address] | + + + | Home Phone | | + + + | Preferred Language | Unknown | + + + | Marital Status | Single | + + + | Mormonism Affiliation | Unknown | + + + | Race | White | + + + | Ethnic Group | Not or | + + + Author + + + | Author | [facility] | | | and [place] | + + + | Organization | [facility] | | | [...] Team Providers + +------+ + | Care Rabbet Operator Name | Role | Phone | [...] | of multiple | [place], | [place] [address] | | | | | regions | [place] [address] | Phone: | | | | | (HCC) | Phone: | [phone] | | | | | Procedures | [phone] | Fax: | | | | | [place] | Fax: | [phone] | | | | | VINCRISTINE | [phone] | | | | | | SULFATE [...] + + | 05/18/ | Hospital | [facility] | Wilton Jeff MD | 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 A special MedGuide will be given to you by the pharmacist with each prescription and refill . Be sure to read this information carefully each time. Talk to your networking engineer regarding the use of this medicine in children. This medicine is not approved for use in children. What side effects may I notice from receiving this medicine? Side effects that you should report to your doctor or health care taker as soon as p ossible: allergic reactions [...] attention (report to your doctor or health care taker if they continue or are bothersome): headache joint pain muscle cramps or muscle pain nausea tiredness What may interact with this medicine? cisplatin live virus vaccines What if I miss a dose? It is important not to miss a dose. Call your doctor or health care taker if you are unable to keep an [...] medical care. Call your doctor or health care taker for advice if you get a fever, [...] to an unborn child. Talk to your [facility] care taker or pharmacist for more information. Do not breast-feed an infant while taking this medicine or for at least 6 months after stopping it. NOTE:This sheet is a summary. It may not cover all possible information. If you have questi ons about this medicine, talk to your doctor, pharmacist, or health care provider. Copyright 2020 [employer] documented in this encounter Medications at Time [...] Sore | | | | | | [id number] | Throat. | | | | | [...] had ud enyca injection on 05/06 in [place]. Rituximab started at 100mg/hr and titrated up [...] for any concerns or questions. Discharged to [facility] with copy of labs and calendar [...] not receive a call for scheduling. Messaged operations scheduler t o remove pt appt here. Jun 08 9:30 AM: IVT LAB DRAW with [facility] LAB DRAW in [facility] INFUSION SUPPORT SERVICES 10:15 AM: Office Visit Extended Appointment starts at 10:30 AM with Wilton Jeff MD in [facility] HEMATOLOGY AND ONCOLOGY 11:00 AM: Onc Infusion with FREDERIC CHAIR 19 in [facility] HEMATOLOGY AND ONCOLOGY INFUSIONS documented in [...] [place] | | | | | | [address] | | | | | | | | +--------+ + + + + | 06/29/ | Office | Oncology | Wilton Jeff MD | | | 2019 | Visit | | [address] | | | | | | [place] | | | | | | [address] | | | | | | | | | | | | Marilou Mcmullen, | | | | | | INSULATION BOARD BACK TENDER [address] | | | | | | [address] | | | | | | [place] [address] | | | | | | [phone] | | | | | | | | +--------+ + + + + | 06/29/ | Appointment | Infusion Therapy | Wilton Jeff MD | | | 2019 | | | [address] | | | | | | [place] | | | | | | [address] | | | | | | | | +--------+ + + + + | 07/14/ | Office | Otolaryngology | She Huang | | | 2019 | Visit | | DO Sophia Canela | | | | | | [address] | | | | | | [place] [address] | | | | | | [phone] | | | | | | | | +--------+ + + + + | 07/20/ | Appointment | Infusion Therapy | Wilton Jeff MD | | | 2019 | | | [address] | | | | | | [place] | | | | | | [address] | | | | | | | | +--------+ + + + + | 07/20/ | Office | Oncology | Wilton Jeff MD | | | 2019 | Visit | | [address] | | | | | | [place] | | | | | | [address] | | | | | | | | +--------+ + + + + | 07/20/ | Appointment | Infusion Therapy | Wilton Jeff MD | | | 2019 | | | [address] | | | | | | [place] | | | | | | [address] | | | | | | | | +--------+ + + + + | 08/17/ | Appointment | Infusion Therapy | Wilton Jeff MD | | | 2019 | | | [address] | | | | | | [place] | | | | | | [address] | | | | | | | | +--------+ + + + + | 08/17/ | Office | Oncology | Wilton Jeff MD | | | 2019 | Visit | | [address] | | | | | | [place] | | | | | | [address] | | | | | | | [...] | | | | over 60 minutes. [id number] Bag | | | | | | [...]
--- OUTSIDE RECORDS SUMMARY | ~2020-06-23 | XMS | Encounter Summary ---
Demographics + + + | Address | [address] | | | [place] [address] | + + + | Home Phone [...] Author + + + | Author | [facility] | | | and [place] | + + + | Organization | [facility] | | | [...] Team Providers + +------+ + | Care Foreign Trade Teacher Name | Role | Phone | + +------+ + | Myrna Mejia MD | PCP | | + +------+ + Encounter Details +--------+ + + + + | Date | Type | Department | Care Team | Description | +--------+ + + + + | 04/03/ | Orders Only | [facility] | Wilton Jeff MD | | | 2020 | | HEMATOLOGY AND | [address] | | | | | ONCOLOGY [address] | [place] | | | | | [address] | [address] | | | | | [place] | | | | | | [address] | | | | | | [phone] | | | +--------+ + + + [...] [place] | | | | | | [address] | | | | | | | | +--------+ + + + + | 06/29/ | Office | Oncology | Wilton Jeff MD | | | 2019 | Visit | | [address] | | | | | | [place] | | | | | | [address] | | | | | | | | | | | | Marilou Mcmullen, | | | | | | BOWLING BALL GRADER [address] | | | | | | [address] | | | | | | [place] [address] | | | | | | [phone] | | | | | | | | +--------+ + + + + | 06/29/ | Appointment | Infusion Therapy | Wilton Jeff MD | | | 2019 | | | [address] | | | | | | [place] | | | | | | [address] | | | | | | | | +--------+ + + + + | 07/14/ | Office | Otolaryngology | She Huang | | | 2019 | Visit | | DO Sophia Canela | | | | | | [place] [address] | | | | | | [place] [address] | | | | | | [phone] | | | | | | | | +--------+ + + + + | 07/20/ | Appointment | Infusion Therapy | Wilton Jeff MD | | | 2019 | | | [address] | | | | | | [place] | | | | | | [address] | | | | | | | | +--------+ + + + + | 07/20/ | Office | Oncology | Wilton Jeff MD | | | 2019 | Visit | | [address] | | | | | | [place] | | | | | | [address] | | | | | | | | +--------+ + + + + | 07/20/ | Appointment | Infusion Therapy | Wilton Jeff MD | | | 2019 | | | [address] | | | | | | [place] | | | | | | [address] | | | | | | | | +--------+ + + + + | 08/17/ | Appointment | Infusion Therapy | Wilton Jeff MD | | | 2019 | | | [address] | | | | | | [place] | | | | | | [address] | | | | | | | | +--------+ + + + + | 08/17/ | Office | Oncology | Wilton Jeff MD | | | 2020 | Visit | | [address] | | | | | | [place] | | | | | | [address] | | | | | | | | +--------+ + + + + documented as of this encounter Visit Diagnoses Not on filedocumented in this encounter"
--- OUTSIDE RECORDS SUMMARY | ~2020-06-23 | XMS | Encounter Summary ---
Demographics + + + | Address | [address] | | | [place] [address] | + + + | Home Phone | | + + + | Preferred Language | Unknown | + + + | Marital Status | Single | + + + | Baptism Affiliation | Unknown | + + + [...] Team Providers + +------+ + | Care Odd Bundle Worker Name | Role | Phone | + +------+ + | Myrna Mejia MD | PCP | | + +------+ + Reason for Visit +--------+--------+ + | Reason | Onset | Comments | | | Date | | +--------+--------+ + | Other | 04/06/ | Request for admission to inpatient for chemotherapy | | | 2020 | | +--------+--------+ + Encounter Details +--------+ + + + + | Date | Type | Department | Care Team | Description | +--------+ + + + + | 04/06/ | Telephone | [facility] | Tina Cadet RN | Other (Request for | | 2019 | | INFUSION SUPPORT | | admission to | | | | SERVICES [address] | | inpatient for | | | | [address] | | chemotherapy) | | | | [address] [place] | | | | | | [address] | | | | | | [phone] | | | +--------+ + + + [...] this encounter Miscellaneous Notes Telephone Encounter - Elodia Guerra MD - 04/06/2020 3:34 PM PDTDiane, Triage: Did Aixa confirm that we can admit him Monday night after receiving Rituxan Monday? For some reason I though that 72 hours needed to elapse before they can be admitted ? ELODIA GUERRA MD, FACP 04/06/2020 3:36 PM PDT elephone Encounter - Tina Georges RN - 04/06/2020 1:36 PM PDTOutLook Email sent to [facility] Direct Ad [facility] Notification: ONC DA Patient: Asad Longo : 1990 Dx: Mediastinal large B-Cell Lymphoma Provider Contact: Dr. Guerra Admit Date: EVENING 04/08/20 Chemo Date: 04/09/2020 Regimen: [id number] + Rituxan Q 21 days Notes: Rituxan given on Day 0 in clinic at [facility]. D1-5 given inpatient. D6 Udenyca given in clinic at [facility]. 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 documented in this encounter Plan of Treatment [...] [place] | | | | | | [address] | | | | | | | | +--------+ + + + + | 06/29/ | Office | Oncology | Elodia Guerra MD | | | 2019 | Visit | | [address] | | | | | | [place] | | | | | | [address] | | | | | | | | | | | | Marilou Mcmullen, | | | | | | SENIOR ERP CONSULTANT [address] | | | | | | [address] | | | | | | [place] [address] | | | | | | [phone] | | | | | | | | +--------+ + + + + | 06/29/ | Appointment | Infusion Therapy | Elodia Guerra MD | | | 2019 | | | [address] | | | | | | [place] | | | | | | [address] | | | | | | | | +--------+ + + + + | 07/14/ | Office | Otolaryngology | She Huang | | | 2019 | Visit | | DO Sophia Canela | | | | | | [place] [address] | | | | | | [place] [address] | | | | | | [phone] | | | | | | | | +--------+ + + + + | 07/20/ | Appointment | Infusion Therapy | Elodia Guerra MD | | | 2019 | | | [address] | | | | | | [place] | | | | | | [address] | | | | | | | | +--------+ + + + + | 07/20/ | Office | Oncology | Elodia Guerra MD | | | 2019 | Visit | | [address] | | | | | | [place] | | | | | | [address] | | | | | | | | +--------+ + + + + | 07/20/ | Appointment | Infusion Therapy | Elodia Guerra MD | | | 2019 | | | [address] | | | | | | [place] | | | | | | [address] | | | | | | | | +--------+ + + + + | 08/17/ | Appointment | Infusion Therapy | Elodia Guerra MD | | | 2019 | | | [address] | | | | | | [place] | | | | | | [address] | | | | | | | | +--------+ + + + + | 08/17/ | Office | Oncology | Elodia Guerra MD | | | 2020 | Visit | | [address] | | | | | | [place] | | | | | | [address] | | | | | | | | +--------+ + + + + documented as of this encounter Visit Diagnoses Not on filedocumented in this encounter"
--- OUTSIDE RECORDS SUMMARY | ~2020-06-23 | XMS | Encounter Summary ---
Demographics + + + | Address | [address] | | | [place] [address] | + + + | Home Phone [...] + + + | Author | [facility] | | | and [place] | + + + | Organization | [facility] | | [...] Providers + +------+ + | Care Clinical Outcomes Manager Name | Role | Phone | [...] | | | Hodgkin | [address] | [place], [place] | | | | | lymphoma of | AVE | [address] | | | | | lymph nodes | [place], | Phone: | | | | | of multiple | [place] [address] | [phone] | | | | | regions | Phone: | Fax: | | | | | (HCC) High | [phone] | [phone] | | | | | risk | Fax: | | | | | | medication | [phone] | | | | | | use [...] | | lymph nodes | [address], | [place], [place] | | | | | of multiple | [place] [address] | [address] | | | | | regions | Phone: | Phone: | | | | | ([facility]) | [phone] | [phone] | | | | | | Fax: | Fax: | | | | | | [phone] | [phone] | +--------+ + + + + + [...] | | lymphoma of | AVE | [place], [place] | | | | | lymph nodes | [address], | [address] | | | | | of ju[place] | [place] [address] | Phone: | | | | | regions | Phone: | [phone] | | | | | ([facility]) | [phone] | Fax: | | | | | Procedures | Fax: | [phone] | | | | | [place] Cardiac | [phone] | | | | | | MUGA [...] | region | [address] | [place] [address] | | | | | Onc/New/Head | [place], [place] | Phone: | | | | | -Neck | [address] | [phone] | | | | | | Phone: | Fax: | | | | | | [phone] | [phone] | | | | | | Fax: | | | | | | | [phone] | | + +--------+ + + + + Encounter Details +--------+---------+ + + + | Date | Type | Department | Care Team | Description | +--------+---------+ + + + | 03/27/ | Office | [facility] | Elodia Guerra MD | Other classical | | 2019 | Visit | HEMATOLOGY AND | [address] | Hodgkin lymphoma of | | | | ONCOLOGY [address] | [place] | lymph nodes of | | | | [address] | [address] | multiple regions | | | | [place] | | (HCC) (Primary Dx); | | | | [address] | | High risk medication | | | | [phone] | | use | +--------+---------+ + + [...] might be different from t he original. [facility] Hematology & Oncology Initial Oncology Consultation [...] CERVICAL NODE; Surgeon: She Huang DO; Location: [facility] OR Family History Problem Relation Age of [...] file Gets together: Not on file Attends scientology service: Not on file Active member of [...] courtesy of this referral. Elodia Guerra MD [facility] Hematology & Oncology 03/27/2020 Portions of [...] [place] | | | | | | [address] | | | | | | | | +--------+ + + + + | 06/29/ | Office | Oncology | Elodia Guerra MD | | | 2019 | Visit | | [address] | | | | | | [place] | | | | | | [address] | | | | | | | | | | | | Marilou Mcmullen, | | | | | | GEOLOGY PROFESSOR [address] | | | | | | [address] | | | | | | [place] [address] | | | | | | [phone] | | | | | | | | +--------+ + + + + | 06/29/ | Appointment | Infusion Therapy | Elodia Guerra MD | | | 2019 | | | [address] | | | | | | [place] | | | | | | [address] | | | | | | | | +--------+ + + + + | 07/14/ | Office | Otolaryngology | She Huang | | | 2019 | Visit | | DO Sophia Canela | | | | | | [address] | | | | | | [place] [address] | | | | | | [phone] | | | | | | | | +--------+ + + + + | 07/20/ | Appointment | Infusion Therapy | Elodia Guerra MD | | | 2019 | | | [address] | | | | | | [place] | | | | | | [address] | | | | | | | | +--------+ + + + + | 07/20/ | Office | Oncology | Elodia Guerra MD | | | 2019 | Visit | | [address] | | | | | | [place] | | | | | | [address] | | | | | | | | +--------+ + + + + | 07/20/ | Appointment | Infusion Therapy | Elodia Guerra MD | | | 2019 | | | [address] | | | | | | [place] | | | | | | [address] | | | | | | | | +--------+ + + + + | 08/17/ | Appointment | Infusion Therapy | Elodia Guerra MD | | | 2019 | | | [address] | | | | | | [place] | | | | | | [address] | | | | | | | | +--------+ + + + + | 08/17/ | Office | Oncology | Elodia Guerra MD | | | 2019 | Visit | | [address] | | | | | | [place] | | | | | | [address] | | | | | | | [...] Procedure Note | + + | Stan, [id number] - 03/30/2020 12:10 PM PDT | | [...]
--- OUTSIDE RECORDS SUMMARY | ~2020-06-23 | XMS | Encounter Summary ---
Demographics + + + | Address | [address] | | | [place] [address] | + + + | Home Phone [...] Team Providers + +------+ + | Care Litigation Specialist Name | Role | Phone | [...] | | Dx) | | | | [address] | | | | | | [phone] | | | +--------+ + + + [...] [place] | | | | | | [address] | | | | | | | | +--------+ + + + + | 06/29/ | Office | Oncology | Wilton Jeff MD | | | 2019 | Visit | | [address] | | | | | | [place] | | | | | | [address] | | | | | | | | | | | | Marilou Mcmullen, | | | | | | DRYCLEANER [address] | | | | | | [address] | | | | | | [place] [address] | | | | | | [phone] | | | | | | | | +--------+ + + + + | 06/29/ | Appointment | Infusion Therapy | iWlton Jeff MD | | | 2019 | | | [address] | | | | | | [place] | | | | | | [address] | | | | | | | | +--------+ + + + + | 07/14/ | Office | Otolaryngology | She Huang | | | 2019 | Visit | | DO Sohpia Canela | | | | | | [address] | | | | | | [place] [address] | | | | | | [phone] | | | | | | | | +--------+ + + + + | 07/20/ | Appointment | Infusion Therapy | Wilton Jeff MD | | | 2019 | | | [address] | | | | | | [place] | | | | | | [address] | | | | | | | | +--------+ + + + + | 07/20/ | Office | Oncology | Wilton Jfef MD | | | 2019 | Visit | | [address] | | | | | | [place] | | | | | | [address] | | | | | | | | +--------+ + + + + | 07/20/ | Appointment | Infusion Therapy | Wilton Jeff MD | | | 2019 | | | [address] | | | | | | [place] | | | | | | [address] | | | | | | | | +--------+ + + + + | 08/17/ | Appointment | Infusion Therapy | Wilton Jeff MD | | | 2020 | | | [address] | | | | | | [place] | | | | | | [address] | | | | | | | | +--------+ + + + + | 08/17/ | Office | Oncology | Wilton Jeff MD | | | 2019 | Visit | | [address] | | | | | | [place] | | | | | | [address] | | | | | | | [...] Negative results, using the | | | Constant Therapy ID NOW Platform, should be treated as [...]
--- OUTSIDE RECORDS SUMMARY | ~2020-06-23 | XMS | Encounter Summary ---
Demographics + + + | Address | [address] | | | [place] [address] | + + + | Home Phone [...] Team Providers + +------+ + | Care Eight Section Blower Name | Role | Phone | + [...] | of multiple | [place], | [place] [address] | | | | | regions | [place] [address] | Phone: | | | | | (HCC) | Phone: | [phone] | | | | | Procedures | [phone] | Fax: | | | | | CT | Fax: | [phone] | | | | | VINCRISTINE | [phone] | | | | | | SULFATE 1 MG | | | | | | | INJ CT | | | | | | | DOXORUBICIN | | | | | | | HCL | | | | | | | INJECTION, | | | | | | | [address] | | | | | | | CYCLOPHOSPHA | | | | | | | MIDE 100 MG | | | | | | | INJ CT | | | | | | | ETOPOSIDE | | | | | | | INJECTION, | | | | | | | [address] | | | | | | | PALONOSETRON | | | | | | | HCL, 25 MCG | | | | | | | CT | | | | | | | INJECTION, | | | | | | | UDENYCA 0.5 | | | | | | | MG CT INJ | | | | | | | TRUXIMA 10 | | | | | | | MG Q5115 - | | | | | | | CT INJ | | | | | | | TRUXIMA 10 | | | | | | | MG- | | | | | | | RITUXIMAB-ab | | | | | | | bs [id number] - | | | | | | | CT | | | | | | | VINCRISTINE | | | | | | | SULFATE 1 MG | | | | | | | INJ J9000 | | | | | | | - CT | | | | | | | DOXORUBICIN | | | | | | | HCL | | | | | | | INJECTION, | | | | | | | 10 MG- DOXO | | | | | | | [id number] - CT | | | | | | | | | | | | | | CYCLOPHOSPHA | | | | | | | MIDE 100 MG | | | | | | | INJ- CYTOXAN | | | | | | | [id number] - | | | | | | | CT ETOPOSIDE | | | | | | | INJECTION, | | | | | | | 10 MG Q5111 | | | | | | | - CT | | | | | | | INJECTION, | | | | | | | UDENYCA 0.5 | | | | | | | MG [id number] - | | | | | | | CT | | | | | | | [...] + + | 04/27/ | Hospital | [facility] | Wilton Jeff MD | 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 A special MedGuide will be given to you by the pharmacist with each prescription and refill . Be sure to read this information carefully each time. Talk to your production staff worker regarding the use of this medicine in children. This medicine is not approved for use in children. What side effects may I notice from receiving this medicine? Side effects that you should report to your doctor or health acute care nurse as soon as p ossible: allergic reactions [...] attention (report to your doctor or health acute care nurse if they continue or are bothersome): headache joint pain muscle cramps or muscle pain nausea tiredness What may interact with this medicine? cisplatin live virus vaccines What if I miss a dose? It is important not to miss a dose. Call your doctor or health acute care nurse if you are unable to keep an [...] medical care. Call your doctor or health acute care nurse for advice if you get a fever, [...] to an unborn child. Talk to your [facility] acute care nurse or pharmacist for more information. Do not breast-feed an infant while taking this medicine or for at least 6 months after stopping it. NOTE:This sheet is a summary. It may not cover all possible information. If you have questi ons about this medicine, talk to your doctor, pharmacist, or health care provider. Copyright 2020 [facility] documented in this encounter Medications at Time [...] Sore | | | | | | y-esqobjlzrtAJUET-yt | Throat. | | | | | [...] encounter Progress Notes Felipa Frazier RN - 04/27/2020 9:45 AM PDTINFUSION:C2, D1 of rituximab. Pt seen by provider today and cleared for tx. Pt reports he tolerated last infusion well w/out issue. P t confirms he has appt for his hospital infusions already setup. Rituximab started at 100mg/ hr rate and titrated up per protocol as pt tolerated. PATIENT EDUCATION: Pt instructed in possible side effects and when to call for concerns. C/ o some mild constipation that is well-controlled w/ miralax. C/o some transient intermittent peripheral numbness/tingling and swelling that is not present today. CHEMOTHERAPY CHECK: Pt's orders/protocol verified, along with Ht and Wt and BSA rechecked, doses reverified, al l with second RN ( Venessa ) before releasing to Pharmacy. Labs within parameters for treatm ent. VSS Distress Survey completed. All chemo Drug (s) checked for accurate color and clarity and no precipitate was noted. Pt tolerated tx well. Reinforced calling for any concerns or questions. Discharged to [facility] with copy of labs and calendar for next appointment. NEXT APPOINTMENT: May 05, 2020 3:00 PM: INJECTION with KCHO INJECTION in [facility] HEMATOLOGY AND ONCOLOGY INFUSIONS documented in th is encounter Plan of [...] [place] | | | | | | [address] | | | | | | | | +--------+ + + + + | 06/29/ | Office | Oncology | Wilton Jeff MD | | | 2019 | Visit | | [address] | | | | | | [place] | | | | | | [address] | | | | | | | | | | | | Marilou Mcmullen, | | | | | | [address] | | | | | | [address] | | | | | | [place] [address] | | | | | | [phone] | | | | | | | | +--------+ + + + + | 06/29/ | Appointment | Infusion Therapy | Wilton Jeff MD | | | 2019 | | | [address] | | | | | | [place] | | | | | | [address] | | | | | | | | +--------+ + + + + | 07/14/ | Office | Otolaryngology | She Huang | | | 2019 | Visit | | DO Sophia Canela | | | | | | [place] [address] | | | | | | [place] [address] | | | | | | [phone] | | | | | | | | +--------+ + + + + | 07/20/ | Appointment | Infusion Therapy | Wilton Jeff MD | | | 2019 | | | [address] | | | | | | [place] | | | | | | [address] | | | | | | | | +--------+ + + + + | 07/20/ | Office | Oncology | Wilton Jeff MD | | | 2019 | Visit | | [address] | | | | | | [place] | | | | | | [address] | | | | | | | | +--------+ + + + + | 07/20/ | Appointment | Infusion Therapy | Wilton Jeff MD | | | 2019 | | | [address] | | | | | | [place] | | | | | | [address] | | | | | | | | +--------+ + + + + | 08/17/ | Appointment | Infusion Therapy | Wilton Jeff MD | | | 2019 | | | [address] | | | | | | [place] | | | | | | [address] | | | | | | | | +--------+ + + + + | 08/17/ | Office | Oncology | Wilton Jeff MD | | | 2019 | Visit | | [address] | | | | | | [place] | | | | | | [address] | | | | | | | [...] | acetaminophen (TYLENOL) tablet | Given | 04/27/20 | 650 mg | | | | 650 mg 650 mg, Oral, ONCE, Mon | | 20 10:41 | | | | | 04/27/20 at 1040, For 1 dose, Give | | AM PDT | | | | | 30 minutes prior to riTUXimab., | | | | | | + +--------+ +--------+------+------+ +---+---+ | | | +---+---+ + +---------+ +-------+-------+---+ | dexamethasone (DECADRON) 20 mg | New Bag | 04/27/20 | 20 mg | 220 | | | in sodium chloride 0.9% 50 mL | | 20 11:00 | | mL/hr | | | IVPB 20 mg, Intravenous, | | AM PDT | | | | | Administer over 15 Minutes, ONCE, | | | | | | | 04/27/20 at 1040, For 1 dose, | | | | | | | Administer 30 minutes prior to | | | | | | | chemotherapy, | | | | | | + +---------+ +-------+-------+---+ +---+---+ | | | +---+---+ + +---------+ +-------+-------+---+ | diphenhydrAMINE (BENADRYL) 50 | New Bag | 04/27/20 | 50 mg | 204 | | | mg in sodium chloride 0.9% 50 mL | | 20 10:41 | | mL/hr | | | IVPB 50 mg, Intravenous, | | AM PDT | | | | | Administer over 15 Minutes, ONCE, | | | | | | | Mon04/27/20 at 1040, For 1 dose | | | | | | + +---------+ +-------+-------+---+ +---+---+ | | | +---+---+ + +---------+ +-------+---+---+ | famotidine (PEPCID) 20-0.9 | New Bag | 04/27/20 | 20 mg | | | | MG/50ML-% IVPB 20 mg 20 mg, | | 20 11:19 | | | | | Intravenous, Administer over 30 | | AM PDT | | | | | Minutes, ONCE, Mon04/27/20 at | | | | | | | 1040, For 1 dose | | | | | | + +---------+ +-------+---+---+ +---+---+ | | | +---+---+ + +-------+ +-------+---+---+ | heparin 100 units/mL flush | Given | 04/27/20 | 500 | | | | injection 500 Units 500 Units (5 | | 20 2:56 | Units | | | | mL), Intracatheter, PRN, Line | | PM PDT | | | | | Care, Starting 04/27/20 at | | | | | | | 1019 | | | | | | + +-------+ +-------+---+---+ +---+---+ | | | +---+---+ + +---------+ +--------+-------+---+ | riTUXimab-abbs (TRUXIMA) 800 mg | New Bag | 04/27/20 | 800 mg | 100 | | | in sodium chloride 0.9% 580 mL | | 20 11:43 | | mL/hr | | | infusion 800 mg (rounded from | | AM PDT | | | | | 783.75 mg = 375 mg/m2 | | | | | | | 2.09 m2 Treatment plan recorded | | | | | | | BSA), Intravenous, ONCE, Mon | | | | | | | 04/27/20 at 1040, For 1 dose, | | | | [...] | | | | over 60 minutes. FY=132tV Bag | | | | | | | conc: 1.38 mg/mL @ 50mg/hr | | | | | | | rate= 36 mL/hr @ 100mg/hr rate= | | | | | | | 72 mL/hr @ 400mg/hr rate= 290 | | | | | | | ml/hr Or ZQ=909 mL Bag Conc=1.38 | | | | | | | mg/mL (calc to nearest 100th) 30 | | | | | | | minute infusion (20% dose) = | | | | | | | 160mg/30 min c5=215cn/hr (232 | | | | | | | mL/hr) 60 minute infusion (80% | | | | | | | dose) = 640mg/hr (464 ml/hr), | | | | | | + +---------+ +--------+-------+---+ +---+---+ | | | +---+---+ + +---------+ +---------+ +---+ | sodium chloride 0.9% (NS) bolus | New Bag | 04/27/20 | 250 mLs | 55 mL/hr | | | 250 mL 250 mL, Intravenous, | | 20 10:41 | | | | | PRN, Flush before and after IV | | AM PDT | | | | | medication(s) and as needed with | | | | | | | NS, Starting 04/27/20 at 1019 | | | | | | + +---------+ +---------+ +---+ +---+---+ | | | +---+---+ documented in this encounter"
--- OUTSIDE RECORDS SUMMARY | ~2020-06-23 | XMS | Encounter Summary ---
Demographics + + + | Address | [address] | | | [place] [address] | + + + | Home Phone | | + + + | Preferred Language | Unknown | + + + | Marital Status | Single | + + + | Taoism Affiliation | Unknown | + + + [...] Team Providers + +------+ + | Care Cafe Helper Name | Role | Phone | + +------+ + | Myrna Mejia MD | PCP | | + +------+ + Reason for Visit + +--------+ + | Reason | Onset | Comments | | | Date | | + +--------+ + | Imaging | 05/18/ | | | | 2020 | | + +--------+ + | Oncology Appointment | 05/18/ | approved for fast rate rituxan per marilou | | | 2019 | | + +--------+ + Encounter Details +--------+ + + + + | Date | Type | Department | Care Team | Description | +--------+ + + + + | 05/18/ | Telephone | [facility] | Felipa Frazier | Imaging; Oncology | | 2019 | | HEMATOLOGY AND | [facility] | Appointment | | | | ONCOLOGY INFUSIONS | | (approved for fast | | | | [address] | | rate rituxan per | | | | [place] | | [place]) | | | | [address] | | | | | | [phone] | | | +--------+ + + + [...] this encounter Miscellaneous Notes Telephone Encounter - Felipa Frazier RN - 05/18/2020 4:17 PM PDTPhoned pt, no luis rMaribell Left message relaying the opinion and recommendations of KOLE Simmons below. Advis ed pt that he may call back if he has further questions. elephone Encounter - Marilou Mcmullen ARNP - 05/18/20 20 3:43 PM PDTNo need for PET at this time. We know he is improving because his SYMPTOMS ar e better. Doing the PET now won't help us in any way. Marilou Mcmullen, MSN, ROTOGRAVURE PRESS OPERATOR, AOCNP [facility] Hematology and Oncology elephone Encounter - Felipa Frazier RN - 05/18/2020 3:17 PM PDTPhoned pt and advised per the opinion an d recommendations of KOLE Simmons below. Pt states he would like to have a PET/CT sca n now to know where he is at but expresses concern that insurance won't cover it if it's not marked as necessary. Advised pt I would route to provider for review and the MA team will n otify him of her response. States understanding and denies further questions at this time. elephone Encoun ter - Felipa Frazier RN - 05/18/2020 3:12 PM PDT----- Message from OSMANY Simmons AUDITOR [employer]ICAL CLAIMS sent at 05/18/2020 2:55 PM PDT ----- We can. Also, would you please let him know that we will plan for the PET/CT after cycle six, not c ycle three. I don't think it will change his plan to do one after cycle three, because we wi ll still do six total cycles of chemo. Thx Marilou Mcmullen MSN, ROTOGRAVURE PRESS OPERATOR, AOCNP [facility] Hematology and Oncology ----- Message ----- From: Felipa Frazier RN Sent: 05/18/2020 2:42 PM PDT To: KOLE Simmons Pt did well w/ rituximab today starting at the 100mg/hr rate and titrating up every 30 darryl tracy. Are we ok to try fast-rate next time (cycle 4)? He was interested if you think it's ok to do. Kesha Hoang documented in th is encounter Plan of [...] [place] | | | | | | [address] | | | | | | | | +--------+ + + + + | 06/29/ | Office | Oncology | Wilton Jeff MD | | | 2019 | Visit | | [address] | | | | | | [place] | | | | | | [address] | | | | | | | | | | | | Marilou Mcmullen, | | | | | | ROTOGRAVURE PRESS OPERATOR [address] | | | [address] | | | | | | [place] [address] | | | | | | [phone] | | | | | | | | +--------+ + + + + | 06/29/ | Appointment | Infusion Therapy | Wilton Jeff MD | | | 2019 | | | [address] | | | | | | [place] | | | | | | [address] | | | | | | | | +--------+ + + + + | 07/14/ | Office | Otolaryngology | She Huang | | | 2019 | Visit | | DO Sophia Canela | | | | | | [place] [address] | | | | | | [place] [address] | | | | | | [phone] | | | | | | | | +--------+ + + + + | 07/20/ | Appointment | Infusion Therapy | Wilton Jeff MD | | | 2019 | | | [address] | | | | | | [place] | | | | | | [address] | | | | | | | | +--------+ + + + + | 07/20/ | Office | Oncology | Wilton Jeff MD | | | 2019 | Visit | | [address] | | | | | | [place] | | | | | | [address] | | | | | | | | +--------+ + + + + | 07/20/ | Appointment | Infusion Therapy | Wilton Jeff MD | | | 2019 | | | [address] | | | | | | [place] | | | | | | [address] | | | | | | | | +--------+ + + + + | 08/17/ | Appointment | Infusion Therapy | Wilton Jeff MD | | | 2019 | | | [address] | | | | | | [place] | | | | | | [address] | | | | | | | | +--------+ + + + + | 08/17/ | Office | Oncology | Wilton Jeff MD | | | 2020 | Visit | | [address] | | | | | | [place] | | | | | | [address] | | | | | | | | +--------+ + + + + documented as of this encounter Visit Diagnoses Not on filedocumented in this encounter"
--- OUTSIDE RECORDS SUMMARY | ~2020-06-23 | XMS | Encounter Summary ---
Demographics + + + | Address | [address] | | | [place] [address] | + + + | Home Phone | | + + + | Preferred Language | Unknown | + + + | Marital Status | Single | + + + | Faith Affiliation | Unknown | + + + | Race | White | + + + | Ethnic Group | Not or | + + + Author + + + | Author | [facility] | | | and [place] | + + + | Organization | [facility] | | [...] Team Providers + +------+ + | Care Crossing Tender Name | Role | Phone | + [...] + + | 06/04/ | Telephone | [facility] | She Huang | Follow-up | | 2019 | | NOSE AND THROAT [address] | J, DO [address] | | | [address] | [address] | | | | | [place], [place] | [place] [address] | | | | | [address] | [phone] | | | | | [phone] | | | +--------+ + + + [...] PDTLVM to reschedule f/u wit h Dr. Hunag. Sal out. 2:4 1 PM PDTdocumented in [...] [place] | | | | | | [address] | | | | | | | | +--------+ + + + + | 06/29/ | Office | Oncology | Wilton Jeff MD | | | 2019 | Visit | | [address] | | | | | | [place] | | | | | | [address] | | | | | | | | | | | | Marilou Mcmullen, | | | | | | KILN PACKER [address] | | [address] | | | | | | [place] [address] | | | | | | [phone] | | | | | | | | +--------+ + + + + | 06/29/ | Appointment | Infusion Therapy | Wilton Jeff MD | | | 2019 | | | [address] | | | | | | [place] | | | | | | [address] | | | | | | | | +--------+ + + + + | 07/14/ | Office | Otolaryngology | She Huang | | | 2019 | Visit | | DO Sophia Canela | | | | | | [address] | | | | | | [place] [address] | | | | | | [phone] | | | | | | | | +--------+ + + + + | 07/20/ | Appointment | Infusion Therapy | Wilton Jeff MD | | | 2019 | | | [address] | | | | | | [place] | | | | | | [address] | | | | | | | | +--------+ + + + + | 07/20/ | Office | Oncology | Wilton Jeff MD | | | 2019 | Visit | | [address] | | | | | | [place] | | | | | | [address] | | | | | | | | +--------+ + + + + | 07/20/ | Appointment | Infusion Therapy | Wilton Jeff MD | | | 2019 | | | [address] | | | | | | [place] | | | | | | [address] | | | | | | | | +--------+ + + + + | 08/17/ | Appointment | Infusion Therapy | Wilton Jeff MD | | | 2019 | | | [address] | | | | | | [place] | | | | | | [address] | | | | | | | | +--------+ + + + + | 08/17/ | Office | Oncology | Wilton Jeff MD | | | 2019 | Visit | | [address] | | | | | | [place] | | | | | | [phone] | | | | | | | | +--------+ + + + + documented as of this encounter Visit Diagnoses Not on filedocumented in this encounter"
--- OUTSIDE RECORDS SUMMARY | ~2020-06-23 | XMS | Encounter Summary ---
Demographics + + + | Address | [address] | | | [place] [address] | + + + | Home Phone [...] + + + | Author | [facility] | | | and [place] | + + + | Organization | 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 [facility] Hematology & Oncology Oncology Progress Note [...] bidirectional video se ssion. Service was provided [id number] with the patient via interactive videoconferencing Coding [...] file Gets together: Not on file Attends uatsdin service: Not on file Active member of [...] any questions or concerns. Elodia Guerra MD [facility] Hematology & Oncology 03/31/2020 Portions of [...] [place] | | | | | | [id number] | | | | | | | | +--------+ + + + + | 06/29/ | Office | Oncology | Elodia Guerra MD | | | 2019 | Visit | | [address] | | | | | | [place] | | | | | | [address] | | | | | | | | | | | | Marilou Mcmullen, | | | | | | TRAFFIC MANAGER [address] | [address] | | | | | | [place] [address] | | | | | | [phone] | | | | | | | | +--------+ + + + + | 06/29/ | Appointment | Infusion Therapy | Elodia Guerra MD | | | 2019 | | | [address] | | | | | | [place] | | | | | | [address] | | | | | | | | +--------+ + + + + | 07/14/ | Office | Otolaryngology | She Huang | | | 2019 | Visit | | DO Sophia Canela | | | | | | [address] | | | | | | [place] [address] | | | | | | [phone] | | | | | | | | +--------+ + + + + | 07/20/ | Appointment | Infusion Therapy | Elodia Guerra MD | | | 2019 | | | [address] | | | | | | [place] | | | | | | [address] | | | | | | | | +--------+ + + + + | 07/20/ | Office | Oncology | Elodia Guerra MD | | | 2019 | Visit | | [address] | | | | | | [place] | | | | | | [address] | | | | | | | | +--------+ + + + + | 07/20/ | Appointment | Infusion Therapy | Elodia Guerra MD | | | 2019 | | | [address] | | | | | | [place] | | | | | | [address] | | | | | | | | +--------+ + + + + | 08/17/ | Appointment | Infusion Therapy | Elodia Guerra MD | | | 2019 | | | [address] | | | | | | [place] | | | | | | [address] | | | | | | | | +--------+ + + + + | 08/17/ | Office | Oncology | Elodia Guerra MD | | | 2020 | Visit | | [address] | | | | | | [place] | | | | | | [address] | | | | | | | [...]
--- OUTSIDE RECORDS SUMMARY | ~2020-06-23 | XMS | Encounter Summary ---
Demographics + + + | Address | [address] | | [place] [address] | + + + | Home Phone | | + + + | Preferred Language | Unknown | + + + | Marital Status | Single | + + + | Jainism Affiliation | Unknown | + + + | Race | White | + + + | Ethnic Group | Not or | + + + Author + + + | Author | [facility] | | | and [place] | + + + | Organization | [facility] | | | [...] Team Providers + +------+ + | Care Cherry Pitter Name | Role | Phone | + +------+ + | Myrna Mejia MD | PCP | | + +------+ + Encounter Details +--------+ + + + + | Date | Type | Department | Care Team | Description | +--------+ + + + + | 04/17/ | Orders Only | [facility] | Zehra Jimenez | Mediastinal large | | 2020 | | [address] | [address] | B-cell lymphoma of | | | | [place] | | lymph nodes of | | | | [address] | | multiple regions | | | | [phone] | | (HCC) | +--------+ + + [...] [place] | | | | | | [address] | | | | | | | | +--------+ + + + + | 06/29/ | Office | Oncology | Wilton Jeff MD | | | 2019 | Visit | | [address] | | | | | | [place] | | | | | | [address] | | | | | | | | | | | | Marilou Mcmullen, | | | | | | [employer] [address] | | | | | [address] | | | | | | [place] [address] | | | | | | [phone] | | | | | | | | +--------+ + + + + | 06/29/ | Appointment | Infusion Therapy | Wilton Jeff MD | | | 2019 | | | [address] | | | | | | [place] | | | | | | [address] | | | | | | | | +--------+ + + + + | 07/14/ | Office | Otolaryngology | She Huang | | | 2019 | Visit | | DO Sophia Canela | | | | | | [facility] [address] | | | | | | [place] [address] | | | | | | [phone] | | | | | | | | +--------+ + + + + | 07/20/ | Appointment | Infusion Therapy | Wilton Jeff MD | | | 2019 | | | [address] | | | | | | [place] | | | | | | [address] | | | | | | | | +--------+ + + + + | 07/20/ | Office | Oncology | Wilton Jeff MD | | | 2019 | Visit | | [address] | | | | | | [place] | | | | | | [address] | | | | | | | | +--------+ + + + + | 07/20/ | Appointment | Infusion Therapy | Wilton Jeff MD | | | 2019 | | | [address] | | | | | | [place] | | | | | | [address] | | | | | | | | +--------+ + + + + | 08/17/ | Appointment | Infusion Therapy | Wilton Jeff MD | | | 2019 | | | [address] | | | | | | [place] | | | | | | [address] | | | | | | | | +--------+ + + + + | 08/17/ | Office | Oncology | Wilton Jeff MD | | | 2019 | Visit | | [address] | | | | | | [address] | | | | | | [address] | | | | | | | | +--------+ + + + + documented as of this encounter Procedures + +--------+ + + + | Procedure Name | Priori | Date/Time | Associated Diagnosis | Comments | | | ty | | | | + +--------+ + + + | CBC WITH | STAT | 04/17/2020 | 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 | | | | | multiple regions | | | | | | (HCC) | | + +--------+ + + + | COMPREHENSIVE | STAT | 04/17/2020 | Mediastinal large | Results for this | | METABOLIC PANEL | | 8:53 AM | 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 | | | | | multiple regions | | | | | | (HCC) | | + +--------+ + + + documented in this encounter Results CBC with Differential (04/17/2020 8:53 AM PDT) [...] | | Testing Performed at | | [facility] | | | | [facility], [address] [facility] | | LABORATORY | | | | [place], | | | | | | [place] [address] | | | | + + + + + + + + | Specimen | + + | Blood | + + + + + + + | Performing | Address | City/State/Zipcode | Phone Number | | Organization | | | | + + + + + | REFERENCE LAB | [address] [facility] [address] [facility] | [place], [place] | [phone] | | [facility] | [address] | [address] | | | LABORATORY | | | | + + + + + | REFERENCE LAB | [address] [place] [address] | [place], [place] | | | [facility] | [address] | [address] | | | LABORATORY | | | [...] | | | | | | MDRD IDNV traceable | | | | | | equation.Testing | | | | | | Performed at [facility], [address] | | | | | | [address] | | | | | | [address], [place] | | | | | | [address] | | | | + + + + + + + + | Specimen | + + | Blood | + + + + + + + | Performing | Address | City/State/Zipcode | Phone Number | | Organization | | | | + + + + + | REFERENCE LAB | [address] [place] [address] | [place], [place] | [phone] | | [facility] | [address] | [address] | | | LABORATORY | | | | + + + + + | REFERENCE LAB | [address] [place] [address] | [place], [place] | | | [facility] | [address] 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
--- OUTSIDE RECORDS SUMMARY | ~2020-06-23 | XMS | Encounter Summary ---
Demographics + + + | Address | [address] | | [place] [address] | + + + | Home Phone [...] Author + + + | Author | [facility] | | | and [place] | + + + | Organization | [facility] [...] Team Providers + +------+ + | Care Horologist Name | Role | Phone | + [...] | | | | | | | Lymphoma | | | +--------+--------+ + + + + Encounter Details +--------+ + + + + | Date | Type | Department | Care Team | Description | +--------+ + + + + | 05/19/ | Hospital | [facility] | Addie Whiteside MD | Admission for | | 2019 - | Encounter | [facility] | [address] | antineoplastic | | | | CARE FLOOR [address] | [address] [place], [place] | chemotherapy | | 05/24/ | | [address] | [id number] | (Primary Dx); Dental | | 2019 | | [place], [place] | | caries; Diffuse | | | | [phone] | Cherelle Mathews MD | large B-cell | | | | [phone] | [address] | lymphoma of lymph | | | | | [place] [address] | nodes of multiple | | | | | [phone] | regions (HCC); | | | | | | Cervical [...] + + + | Blood Pressure | 130/66 | 05/24/2020 3:09 PM | | | | | PDT | | + + + + + | Pulse | 84 | 05/24/2020 3:09 PM | | | | | PDT | | + + + + + | Temperature | 36.8 C (98.3 F) | 05/24/2020 3:09 PM | | | | | PDT | | + + + + + | Respiratory Rate | 16 | 05/24/2020 3:09 PM | | | | | PDT | | + + + + + | Oxygen Saturation | 95% | 05/24/2020 3:09 PM | | | | | PDT | | + + + + + | Inhaled Oxygen | - | - | | | Concentration | | | | + + + + + | Weight | 95.6 kg (210 lb 12.2 | 05/24/2020 8:21 AM | | | | oz) | PDT | | + + + + + | Height | 180.3 cm (5' 11") | 05/19/2020 8:03 PM | | | | | PDT | | + + + + + | Body Mass Index | 29.4 | 05/19/2020 8:03 PM | | | | | PDT [...] documented as of this encounter Discharge Summaries Cherelle Mathews MD - 05/24/2020 1:12 PM PDT [facility] Service: Hospitalist Physician Discharge Summary Patient ID: Asad Longo 1990 30 y.o. Admit date: 05/19/2020 Discharge date: 05/24/2020 Admitting Physician: Addie Whiteside MD Discharge Physician: Cherelle Mathews MD Consultants: Treatment Team: KOLE Simmons Primary Discharge Diagnoses: Principal Problem: Diffuse large B-cell lymphoma of lymph nodes of multiple regions Active Problems: Admission for antineoplastic chemotherapy Tobacco abuse Dental caries HPI and Hospital Course: Mr. Longo is a 29 yr old man active smoker and recently diagnosed with diffuse large B cell lymphoma in 03/2020 presenting with nonremitting cough, weight loss and a large cavitary les ion with mediastinal and axillary LAD on CT chest. Patient started chemotherapy on 04/06/2020 with rituximab and DA-R-EPOCH. He was admitted this time for his cycle 3 of chemotherapy. Patient did well except for nausea that did not respond to IV anti-emetic medications but e ventually was resolved with ativan. His labs were monitored and remained stable. He was treated for periodontal infection in his left lower molar with augmentin and will co mplete 03/17 days today. He will set up an appointment with his dentist for this. He will be discharged today after completion of his chemotx with follow up appointment set up with oncology. He is scheduled to get GCSF and labs drawn at [facility] On 05/09/20. Past Medical History: Past Medical History: Diagnosis Date Chronic cough 2019 Chronic headaches 2 x's per month History of pneumonia Lymphoma involving lung (HCC) 2019 right lung mass Past Surgical History: Procedure Laterality Date LYMPH NODE BIOPSY Right 03/20/2020 Procedure: BIOPSY DEEP CERVICAL NODE; Surgeon: She Huang DO; Location: [facility] Discharged Condition: Stable for discharge as stated above. Significant Diagnostic Studies: @RISIMPRESS@ Discharge Vitals: Vitals: 05/23/20 2007 05/24/20 0457 05/24/20 0814 05/24/20 0821 BP: 114/66 119/63 145/76 Pulse: 73 74 116 Resp: 16 16 16 Temp: 36.6 C (97.9 F) 36.6 C (97.8 F) 36.7 C (98 F) TempSrc: Oral Oral Oral SpO2: 96% 98% 98% Weight: 95.6 kg (210 lb 12.2 oz) Height: Discharge Exam: Physical Exam Constitutional: He is oriented to person, place, and time and well-developed, well-nourishe d, and in no distress. HENT: Head: Normocephalic and atraumatic. + cavity and small gingival ulcer 2nd left lower molar Eyes: Pupils are equal, round, and reactive to light. Neck: Normal range of motion. No JVD present. Cardiovascular: Normal rate. No murmur heard. Pulmonary/Chest: Effort normal. He has no wheezes. He has no rales. Abdominal: Soft. Bowel sounds are normal. There is no abdominal tenderness. Musculoskeletal: General: No edema. Lymphadenopathy: He has no cervical adenopathy. Neurological: He is alert and oriented to person, place, and time. No cranial nerve deficit . Skin: Skin is warm. LABS: Recent Labs Lab 05/24/20 0528 05/23/20 0402 05/22/20 0444 WBC 6.64 13.71* 20.47* RBC 3.64* 3.59* 3.66* HGB 10.8* 10.6* 10.8* HCT 31.3* 32.1* 32.2* MCV 86.0 89.4 88.0 MCH 29.7 29.5 29.5 MCHC 34.5 33.0 33.5 PLT 335 344 332 MPV 9.3 9.4 9.5 DIFFTYPE AUTOMATED AUTOMATED AUTOMATED Recent Labs Lab 05/24/20 0528 05/23/20 0402 05/22/20 0444 NA 136 139 137 K 3.6 4.0 3.8 CL 103 105 106 CO2 27 27 26 BUN 18 21 17 CALCIUM 8.5 8.7 9.0 ALKPHOS 66 65 75 ALT 23 15 26 AST 10 10 10 No results for input(s): TROPONINT in the last 168 hours. Invalid input(s): CKTOTAL, TROPONINI, CKMBINDEX Recent Labs Lab 05/20/20 0411 PHOS 5.0* Recent Labs Lab 05/21/20 0408 05/20/20 0411 MG 1.9 1.9 Invalid input(s): ABG Disposition: Home or Self Care Follow up: [facility] [address] [facility] [place] [id number] On 05/26/2020 White cell growth factor at 2:00. Wilton Jeff MD [address] [address] On 06/08/2020 Labs at 9:30. See Dr. Jeff at 10:15. Discharge Medications Unchanged Medications Details acetaminophen 500 mg tablet Take 1,000 mg by mouth every 6 hours as needed for Pain. aka: TYLENOL acyclovir 200 mg capsule Take 4 capsules by mouth 2 times daily. Indications: Herpes Zoster Prevention in Immunocom promised aka: ZOVIRAX aluminum & magnesium lhefpxhri-brrhcijgjxd-yjcododfjfADJXZ-lidocaine Swish and spit 15 mLs every 4 hours as needed for Sore Throat. amoxicillin-clavulanate 875-125 mg per tablet Take 1 tablet by mouth 2 times daily for 7 days. aka: AUGMENTIN benzonatate 100 mg capsule Take 100 mg by mouth 3 times daily as needed for Cough. aka: TESSALON zuqbrrrlvijksnr-vwcvweywurqvfb-uolgtjln suspension Swish and spit 10 mLs 4 times daily. aka: DUKES MOUTHWASH lidocaine-prilocaine cream Apply generously to port site and cover with tegaderm or saran wrap 1 hour prior to chemo. . aka: EMLA NICOTINE TD Place onto the skin. ondansetron 4 mg disintegrating tablet Take 1 tablet by mouth every 6 hours as needed for Nausea. aka: ZOFRAN ODT Discontinued Medications allopurinol 300 mg tablet aka: ZYLOPRIM prochlorperazine 10 mg tablet Cherelle Mathews MD 05/24/2020 1:21 PM PDT Discharge took , to include final examination, discussion of admission, and preparation of prescriptions, instructions for ongoing care, follow up and dictation of summary. documented in this enco unter Discharge Instructions Instructions Lisa Nickerson, SENIOR PRINCIPAL PROCESS ENGINEER - . You may take ondansetron (Zofran) alternating with prochlorperzine (compazine) if you experience nausea. Zofran may cause head ache or constipation. Compazine may make you sleepy. 2. Please make sure you drink plenty of fluids. 3. You must contact the clinic, call the provider pancake professional and/or seek immediate medical ca re for fever greater than 100.4 degrees and/or signs of infection or uncontrolled symptoms. 4. Follow up appointment in the clinic with labs scheduled to see how you have tolerated yo ur treatment. Please keep this appointment. 5. If you have non-urgent questions about your care, treatment or symptoms and desire to sp eak with an oncology nurse, our Triage Nurse at [facility] can be r eached during normal business hours at [phone]. 6. White cell growth factor at [facility] on May 26 at 2:00. 7. Lab work on May 29, 2020. Patient has a copy of order. documented in this encounter Medications at Time [...] Sore | | | | | | k-zsbqctqlckPQYAC-uy | Throat. | | | | | [...] tablet by | 14 | 0 | 05/24/20 | | | amoxicillin-clavulan | mouth 2 times daily | tablet | | 20 | 0 | | ate (AUGMENTIN) | for 7 days. | | | | | | 875-125 mg per | | | | | | | tablet | | | | | | + + + +---------+ + + documented as of this encounter Progress Timothy Gupta MD - 05/24/2020 9:37 AM PDTFormatting of this note might be differen t from the original. [facility] Service: Hematology and Oncology Progress Note Hospital Day: LOS: 5 days Patient Summary: Mr.Dylan Bernard Villarreal a 30 year oldmalewith no significant past medical history other than tobacco use (1/2-1 pack/day [id number]) who began experiencing cough, pleuritic ch est [...] mg/m IV day 5; Prednison e 60mg/m2 (120mgper Dr. Jeff) PO days 1-5 on a 21 day cycle. He received cycle 2 between April 30 2020 with 20% dose adjustment and etopo side, doxorubicin and cyclophosphamide. He is currently admitted to receive cycle 3of DA-R-EPOCH with dose adjustment by 20% for etoposide, doxorubicin and cyclophosphamide. SUBJECTIVE Events Overnight: Asad denies any new symptoms. He reports improved in nausea. He is able to tolerate breakfast and coffee well. He has gained weight since starting treatment. He is aware of getting a GCSF injection on 05/26 and labs drawn at [facility] on 05/29/2020. OBJECTIVE Scheduled Medications acyclovir 800 mg Oral BID amoxicillin-clavulanate 1 tablet Oral BID cyclophosphamide (CYTOXAN) infusion 1,080 mg/m2 (Treatment Plan Recorded) Intravenous Once hkqevcfjlyxdlua-olestnliqcqxld-jvyliclo 10 mL Swish & Spit 4x Daily enoxaparin 40 mg Subcutaneous Q24H metoclopramide 5 mg Intravenous Q6H ondansetron with dexamethasone IVPB 16 mg Intravenous Once palonosetron with dexamethasone IVPB 0.25 mg Intravenous Once sodium chloride 0.9% 500 mL Intravenous Once sodium chloride 0.9% 500 mL Intravenous Once Continuous Infusions sodium chloride 0.9% 100 mL/hr at 05/24/20 0020 PRN Medications acetaminophen, albuterol, benzonatate, diphenhydrAMINE, docusate sodium, EPINEPHrine, famot idine, heparin, LORazepam, methylPREDNISolone sodium succinate, ondansetron, ondansetron, se nna, sodium chloride 0.9%, sodium chloride 0.9%, sodium chloride 0.9% Physical Exam Vital Signs: BP 145/76 | Pulse 116 | Temp 36.7 C (98 F) (Oral) | Resp 16 | Ht 1.803 m (5' 11") | Wt 95.6 kg (210 lb 12.2 oz) | SpO2 98% | BMI 29.40 kg/m Intake/Output Summary (Last 24 hours) at 05/24/2020 0937 Last data filed at 05/24/2020 0455 Gross per 24 hour Intake 6118 ml Output 1600 ml Net 4518 ml General: Alert and oriented. In no acute distress. Affect appropriate. Skin: Warm, dry and intact without rashes or ulcers. HEENT: Conjunctivae are clear. Sclera anicteric. Oral mucosa is moist. Obvious dental suki es along left lower molar with mild gum erosion but no obvious drainage or erythema. Lungs: Respiratory effort relaxed. No rales, rhonchi [...] fully engaged. Lab Data Recent Labs Lab 05/24/20 0528 05/23/20 0402 05/22/20 0444 05/21/20 0408 05/20/20 0411 WBC 6.64 13.71* 20.47* 21.98* 14.77* RBC 3.64* 3.59* 3.66* 3.76* 3.54* HGB 10.8* 10.6* 10.8* 11.0* 10.3* HCT 31.3* 32.1* 32.2* 33.6* 32.8* MCV 86.0 89.4 88.0 89.4 92.7 MCH 29.7 29.5 29.5 29.3 29.1 MCHC 34.5 33.0 33.5 32.7 31.4* PLT 335 344 332 315 258 MPV 9.3 9.4 9.5 9.2 9.4 Recent Labs Lab 05/24/20 0528 05/23/20 0402 05/22/20 0444 05/21/20 0408 05/20/20 0411 NA 136 139 137 140 142 K 3.6 4.0 3.8 4.1 4.0 CL 103 105 106 106 105 CO2 27 27 26 27 28 ANIONGAP 10 11 9 11 13 BUN 18 21 17 15 23 ALKPHOS 66 65 75 82 78 ALT 23 15 26 19 19 AST 10 10 10 13 16 EGFR >60 >60 >60 >60 >60 PHOS -- -- -- -- 5.0* MG -- -- -- 1.9 1.9 Medical Imaging No results found for this or any previous visit (from the past 360 hour(s)). PROBLEM LIST Principal Problem: Diffuse large B-cell lymphoma of lymph nodes of multiple regions Active Problems: Admission for antineoplastic chemotherapy Tobacco abuse Dental [...] He received Rituximab in the outpatient setting May 18 and the cytotoxic portion of treatment beginning today with 20% increase in etoposide, doxorubicin and cyclophosphamide. Encounter for chemotherapy The patientinitiated with dose adjusted R-EPOCH as follows: Rituximab 375 mg/m IV day 0 (Given May 18) Etoposide 72 mg/m IV continuous infusion days 1 4 Vincristine 0.4 mg/m IV continuous infusion days 1 4 Doxorubicin 14.4 mg/m IV continuous infusion days 1 4 Cyclophosphamide 1080 mg/m IV day 5 Prednisone 60mg/m2 (120mgper Dr. Jeff) PO days 1-5 On a 21 day cycle The patient will receive GCSF following treatment. Today is cycle 3 day5.He complete chemotherapy this evening and will be discharged. Appointment is made for white cell growth factor at [facility] on Monday, 05/26. He will also need blood work at his [facility]. He will have it drawn in [place] (peripherally ) on 05/29. Anemia Hemoglobin 10.8. Platelet 335. No intervention required. Infectious prophylaxis Acyclovir 800mg PO BID for viral prophylaxis No need for routine bactrim DS 1 for PJP prophylaxis Dental infection On Augmentin twice daily. Will follow up with dentist as outpatient. Code Status: Full Code Timothy Mohamud MD Hematology Oncology 05/24/2020 9:37 AM PDT [facility] Portions of this chart may have been created with voice recognition software. Occasional wr mak-word or "sound-alike" substitutions may have occurred, even after review, due to the inh erent limitations of voice recognition software. Please read the chart carefully and recogni ze, using context, where these substitutions have occurred. Personal communication is reques akbar for any clarifications. Pura Cannon MD - 05/23/2020 3:43 PM PDTFormatting of this note might be different from the origin al. [facility] Service: Hematology and Oncology Progress Note Hospital Day: LOS: 4 days Patient Summary: Mr.Dylan Bernard Villarreal a 30 year oldmalewith no significant past medical history other than tobacco use (1/2-1 pack/day [id number]) who began experiencing cough, pleuritic ch est [...] mg/m IV day 5; Prednison e 60mg/m2 (120mgper Dr. Jeff) PO days 1-5 on a 21 day cycle. He received cycle 2 between April 30 2020 with 20% dose adjustment and etopo side, doxorubicin and cyclophosphamide. He is currently admitted to receive cycle 3of DA-R-EPOCH with dose adjustment by 20% for etoposide, doxorubicin and cyclophosphamide. SUBJECTIVE Events Overnight: Asad denies any new symptoms. He was able to eat well. Denies any new sy mptoms. OBJECTIVE Scheduled Medications acyclovir 800 mg Oral BID amoxicillin-clavulanate 1 tablet Oral BID rqkckmrlbxuighl-epxbyzezymjaxn-xdwhlhjo 10 mL Swish & Spit 4x Daily DOXOrubicin with etoposide and vinCRIStine infusion 14.4 mg/m2/day (Treatment Plan Rec orded) Intravenous Q24H enoxaparin 40 mg Subcutaneous Q24H metoclopramide 5 mg Intravenous Q6H predniSONE 120 mg Oral Daily with breakfast Continuous Infusions sodium chloride 0.9% 100 mL/hr at 05/23/20 1450 PRN Medications acetaminophen, albuterol, benzonatate, diphenhydrAMINE, docusate sodium, EPINEPHrine, famot idine, heparin, LORazepam, methylPREDNISolone sodium succinate, ondansetron, ondansetron, se nna, sodium chloride 0.9%, sodium chloride 0.9%, sodium chloride 0.9% Physical Exam Vital Signs: BP 150/84 | Pulse 108 | Temp 36.7 C (98 F) (Oral) | Resp 16 | Ht 1.803 m (5' 11") | Wt 96.6 kg (212 lb 15.4 oz) | SpO2 98% | BMI 29.70 kg/m Intake/Output Summary (Last 24 hours) at 05/23/2020 1641 Last data filed at 05/23/2020 0901 Gross per 24 hour Intake 1170 ml Output 1950 ml Net -780 ml General: Alert and oriented. In no acute distress. Affect appropriate. Skin: Warm, dry and intact without rashes or ulcers. HEENT: Conjunctivae are clear. Sclera anicteric. Oral mucosa is moist. Obvious dental suki es along left lower molar with mild gum erosion but no obvious drainage or erythema. Lungs: Respiratory effort relaxed. No rales, rhonchi [...] fully engaged. Lab Data Recent Labs Lab 05/23/202 05/22/204 05/21/208 05/20/20 0411 05/18/20 0843 WBC 13.71* 20.47* 21.98* 14.77* 17.24* RBC 3.59* 3.66* 3.76* 3.54* 3.86* HGB 10.6* 10.8* 11.0* 10.3* 11.2* HCT 32.1* 32.2* 33.6* 32.8* 35.0* MCV 89.4 88.0 89.4 92.7 90.7 MCH 29.5 29.5 29.3 29.1 29.0 MCHC 33.0 33.5 32.7 31.4* 32.0 PLT 344 332 315 258 224 MPV 9.4 9.5 9.2 9.4 9.9 Recent Labs Lab 05/23/20 0402 05/22/204 05/21/20 0408 05/20/20 0411 05/18/20 0843 NA 139 137 140 142 136 K 4.0 3.8 4.1 4.0 4.3 CL 105 106 106 105 104 CO2 27 26 27 28 26 ANIONGAP 11 9 11 13 10 BUN 21 17 15 23 16 ALKPHOS 65 75 82 78 87 ALT 15 26 19 19 17 AST 10 10 13 16 16 EGFR >60 >60 >60 >60 >60 PHOS -- -- -- 5.0* -- MG -- -- 1.9 1.9 -- Medical Imaging No results found for this or any previous visit (from the past 360 hour(s)). PROBLEM LIST Principal Problem: Diffuse large B-cell lymphoma of lymph nodes of multiple regions Active Problems: Admission for antineoplastic chemotherapy Tobacco abuse Dental [...] He received Rituximab in the outpatient setting May 18 and the cytotoxic portion of treatment beginning today with 20% increase in etoposide, doxorubicin and cyclophosphamide. Encounter for chemotherapy The patientinitiated treatmentS with dose adjusted R-EPOCH as follows: Rituximab 375 mg/m IV day 0 (Given May 18) Etoposide 72 mg/m IV continuous infusion days 1 4 Vincristine 0.4 mg/m IV continuous infusion days 1 4 Doxorubicin 14.4 mg/m IV continuous infusion days 1 4 Cyclophosphamide 1080 mg/m IV day 5 Prednisone 60mg/m2 (120mgper Dr. Jeff) PO days 1-5 On a 21 day cycle The patient will receive GCSF following treatment. Today is cycle 3 day4. Anemia Hemoglobin 10.6. Platelet 344. No intervention required. Should the patient require blo od transfusion to keep hemoglobin greater than 8.0, he does not require irradiated blood pro ducts. Infectious prophylaxis Acyclovir 800mg PO BID for viral prophylaxis No need for routine bactrim DS 1 for PJP prophylaxis Dental infection On Augmentin twice daily. Will follow up with dentist as outpatient. Patient will complete chemotherapy Monday evening and may be discharged at that time. Appo intment is made for white cell growth factor at [facility] on May 26. He will also need blood work at his [facility]. He will have it drawn in [place] (peripher ally). Code Status: Full Code Timothy Mohamud MD Hematology Oncology 05/23/2020 3:43 PM PDT [facility] Portions of this chart may have been created with voice recognition software. Occasional wr mak-word or "sound-alike" substitutions may have occurred, even after review, due to the inh erent limitations of voice recognition software. Please read the chart carefully and recogni ze, using context, where these substitutions have occurred. Personal communication is reques akbar for any clarifications. Cherelle Babcock M D - 05/23/2020 12:16 PM PDT [facility] Service: Hospitalist Progress Note Hospital Day: LOS: 4 days SUBJECTIVE Patient Summary: Mr. 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 He complained of left lower molar tooth pain and was started on augmentin on 05/17/20. Events Overnight: Patient today, has no complaint. Scheduled Medications acyclovir 800 mg Oral BID amoxicillin-clavulanate 1 tablet Oral BID lcxsgduhvperupf-gfzgqlcqiqcmcz-yqinjunx 10 mL Swish & Spit 4x Daily DOXOrubicin with etoposide and vinCRIStine infusion 14.4 mg/m2/day (Treatment Plan Rec orded) Intravenous Q24H enoxaparin 40 mg Subcutaneous Q24H metoclopramide 5 mg Intravenous Q6H ondansetron with dexamethasone IVPB 8 mg Intravenous Once predniSONE 120 mg Oral Daily with breakfast Continuous Infusions sodium chloride 0.9% 100 mL/hr at 05/22/20 2101 PRN Medications acetaminophen, albuterol, benzonatate, diphenhydrAMINE, docusate sodium, EPINEPHrine, famot idine, heparin, LORazepam, methylPREDNISolone sodium succinate, ondansetron, ondansetron, se nna, sodium chloride 0.9%, sodium chloride 0.9%, sodium chloride 0.9% OBJECTIVE Vital Signs: BP (!) 142/93 | Pulse 93 | Temp 36.8 C (98.3 F) (Oral) | Resp 16 | Ht 1.803 m (5' 1 1") | Wt 96.6 kg (212 lb 15.4 oz) | SpO2 98% | BMI 29.70 kg/m Patient Vitals for the past 24 hrs: BP Temp Temp src Pulse Resp SpO2 Weight 05/23/20 1155 (!) 142/93 36.8 C (98.3 F) Oral 93 16 98 % 05/23/20 0843 138/82 36.8 C (98.2 F) Oral 117 16 99 % 96.6 kg (212 lb 15.4 oz) 05/23/20 0448 119/74 36.8 C (98.3 F) Oral 72 16 97 % 05/23/20 0001 122/62 36.7 C (98 F) Oral 91 16 05/22/20 2051 121/70 36.6 C (97.9 F) Oral 73 16 97 % 05/22/20 1504 141/76 36.8 C (98.2 F) Oral 98 16 97 % 05/22/20 1223 (!) 136/96 36.4 C (97.6 F) Oral 92 20 97 % Intake/Output Summary (Last 24 hours) at 05/23/2020 1216 Last data filed at 05/23/2020 0901 Gross per 24 hour Intake 1170 ml Output 1950 ml Net -780 ml Physical Exam Constitutional: He is oriented to person, place, and time and well-developed, well-nourishe d, and in no distress. HENT: Head: Normocephalic and atraumatic. Eyes: Pupils are equal, round, and reactive to light. Neck: Normal range of motion. No JVD present. Cardiovascular: Normal rate and regular rhythm. No murmur heard. Pulmonary/Chest: Effort normal. He has no wheezes. He has no rales. Abdominal: Soft. Bowel sounds are normal. Musculoskeletal: General: No edema. Lymphadenopathy: He has no cervical adenopathy. Neurological: He is alert and oriented to person, place, and time. No cranial nerve deficit . Skin: Skin is warm. Psychiatric: Affect normal. DATA Recent Results (from the past 24 hour(s)) CBC with Differential Result Value Ref Range WBC 13.71 (H) 3.80 - 11.00 K/uL Red Blood Cells 3.59 (L) 4.20 - 5.70 M/uL Hemoglobin 10.6 (L) 13.2 - 17.0 g/dL Hematocrit 32.1 (L) 39.0 - 50.0 % MCV 89.4 80.0 - 100.0 fl MCH 29.5 27.0 - 34.0 pg MCHC 33.0 32.0 - 35.5 g/dL RDW-SD 58.7 (H) 37 - 53 fl Platelet Count 344 150 - 400 K/uL MPV 9.4 fl Diff Type AUTOMATED % nRBC 0.0 0 /100WBC % Neutrophils 82.70 % IMMATURE GRANULOCYTE 1.90 % % Lymphocytes 5.30 % Monocyte % 10.00 % Eosinophils % 0.00 % Basophils % 0.10 % Neutrophils, Absolute 11.34 (H) 1.90 - 7.40 K/uL IMMATURE GRANS AB 0.26 (H) 0.00 - 0.07 K/uL Absolute Lymphocytes 0.73 (L) 1.00 - 3.90 K/uL Absolute Monocytes 1.37 (H) 0.00 - 0.80 K/uL Eosinophils, Absolute 0.00 0.00 - 0.50 K/uL Basophils, Absolute 0.01 0.00 - 0.10 K/uL Comprehensive Metabolic Panel Result Value Ref Range Na 139 135 - 145 mmol/L K 4.0 3.5 - 4.9 mmol/L Cl 105 99 - 109 mmol/L CO2 27 23 - 32 mmol/L Anion Gap 11 5 - 20 mmol/L Glucose 93 65 - 99 mg/dL BUN 21 8 - 25 mg/dL Creatinine 0.80 0.70 - 1.30 mg/dL BUN/Creatinine Ratio 26 Calcium 8.7 8.5 - 10.5 mg/dL Protein, Total 5.6 (L) 6.3 - 8.2 g/dL Albumin 4.0 3.6 - 5.0 g/dL Globulin 1.6 1.3 - 4.9 g/dL A/G Ratio 2.5 (H) 1.0 - 2.4 BILIRUBIN, TOTAL 0.5 0.1 - 1.5 mg/dL ALK PHOS 65 35 - 115 U/L AST 10 10 - 45 U/L ALT 15 10 - 65 U/L Estimated GFR >60 >60 mL/min/1.73m2 IMAGES No results found for this or any previous visit (from the past 360 hour(s)). PROBLEM LIST Principal Problem: Diffuse large B-cell lymphoma of lymph nodes of multiple regions Active Problems: Admission for antineoplastic chemotherapy Tobacco abuse Dental caries ASSESSMENT & PLAN Diffuse large B cell lymphoma Defer to oncology for chemotx orders On acyclovir for prophylaxis Prn zofran, reglan, ativan for nausea Consider periodontal infection On augmentin since 05/17/20 D5-6, to complete 14 days as discussed with oncology Follow up with dentist as outpatient Tobacco use On nicotine patch DVT prophylaxis encouraged ambulation, no chemical prophylaxis due to anticipated fall in p latelet Disposition: For discharge after completion of chemotx per nephrology Code Status: Full Code Cherelle Mathews MD 05/23/2020 12:16 PM PDT Cherelle Babcock MD - 9:59 AM PDT [facility] Service: Hospitalist Progress Note Hospital Day: LOS: 3 days SUBJECTIVE Patient Summary: Mr. 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 He complained of left lower molar tooth pain and was started on augmentin on 05/17/20. Events Overnight: Patient today states that he feels a little better today, nausea has improved. Scheduled Medications acyclovir 800 mg Oral BID amoxicillin-clavulanate 1 tablet Oral BID majvxjzieqgelri-kgvfawbheguzhy-omtsvcjm 10 mL Swish & Spit 4x Daily DOXOrubicin with etoposide and vinCRIStine infusion 14.4 mg/m2/day (Treatment Plan Rec orded) Intravenous Q24H enoxaparin 40 mg Subcutaneous Q24H metoclopramide 5 mg Intravenous Q6H ondansetron with dexamethasone IVPB 8 mg Intravenous Once predniSONE 120 mg Oral Daily with breakfast Continuous Infusions sodium chloride 0.9% 100 mL/hr at 05/22/20 0013 PRN Medications acetaminophen, albuterol, benzonatate, diphenhydrAMINE, docusate sodium, EPINEPHrine, famot idine, heparin, LORazepam, methylPREDNISolone sodium succinate, ondansetron, ondansetron, se nna, sodium chloride 0.9%, sodium chloride 0.9%, sodium chloride 0.9% OBJECTIVE Vital Signs: BP (!) 141/91 | Pulse 104 | Temp 36.7 C (98.1 F) (Oral) | Resp 20 | Ht 1.803 m (5' 11") | Wt 97.2 kg (214 lb 4.6 oz) | SpO2 97% | BMI 29.89 kg/m Patient Vitals for the past 24 hrs: BP Temp Temp src Pulse Resp SpO2 05/22/20 0820 (!) 141/91 36.7 C (98.1 F) Oral 104 20 97 % 05/22/20 0241 103/57 36.7 C (98.1 F) Oral 68 20 98 % 05/21/20 2226 129/73 36.7 C (98 F) Oral 82 20 96 % 05/21/20 1947 116/61 36.9 C (98.4 F) Oral 81 20 98 % 05/21/20 1518 124/67 36.7 C (98.1 F) Oral 91 21 96 % 05/21/20 1150 105/57 36.8 C (98.2 F) Oral 105 20 95 % Intake/Output Summary (Last 24 hours) at 05/22/2020 0959 Last data filed at 05/22/2020 0242 Gross per 24 hour Intake 2324 ml Output 2500 ml Net -176 ml Physical Exam Constitutional: He is oriented to person, place, and time and well-developed, well-nourishe d, and in no distress. HENT: Head: Normocephalic and atraumatic. Eyes: Pupils are equal, round, and reactive to light. Neck: Normal range of motion. No JVD present. Cardiovascular: Normal rate and regular rhythm. No murmur heard. Pulmonary/Chest: Effort normal. He has no wheezes. He has no rales. Abdominal: Soft. Bowel sounds are normal. Musculoskeletal: General: No edema. Lymphadenopathy: He has no cervical adenopathy. Neurological: He is alert and oriented to person, place, and time. No cranial nerve deficit . Skin: Skin is warm. Psychiatric: Affect normal. DATA Recent Results (from the past 24 hour(s)) CBC with Differential Result Value Ref Range WBC 20.47 (H) 3.80 - 11.00 K/uL Red Blood Cells 3.66 (L) 4.20 - 5.70 M/uL Hemoglobin 10.8 (L) 13.2 - 17.0 g/dL Hematocrit 32.2 (L) 39.0 - 50.0 % MCV 88.0 80.0 - 100.0 fl MCH 29.5 27.0 - 34.0 pg MCHC 33.5 32.0 - 35.5 g/dL RDW-SD 57.8 (H) 37 - 53 fl Platelet Count 332 150 - 400 K/uL MPV 9.5 fl Diff Type AUTOMATED % nRBC 0.0 0 /100WBC % Neutrophils 88.90 % IMMATURE GRANULOCYTE 2.30 % % Lymphocytes 3.60 % Monocyte % 5.10 % Eosinophils % 0.00 % Basophils % 0.10 % Neutrophils, Absolute 18.20 (H) 1.90 - 7.40 K/uL IMMATURE GRANS AB 0.47 (H) 0.00 - 0.07 K/uL Absolute Lymphocytes 0.73 (L) 1.00 - 3.90 K/uL Absolute Monocytes 1.04 (H) 0.00 - 0.80 K/uL Eosinophils, Absolute 0.00 0.00 - 0.50 K/uL Basophils, Absolute 0.03 0.00 - 0.10 K/uL Comprehensive Metabolic Panel Result Value Ref Range Na 137 135 - 145 mmol/L K 3.8 3.5 - 4.9 mmol/L Cl 106 99 - 109 mmol/L CO2 26 23 - 32 mmol/L Anion Gap 9 5 - 20 mmol/L Glucose 110 (H) 65 - 99 mg/dL BUN 17 8 - 25 mg/dL Creatinine 0.80 0.70 - 1.30 mg/dL BUN/Creatinine Ratio 21 Calcium 9.0 8.5 - 10.5 mg/dL Protein, Total 6.4 6.3 - 8.2 g/dL Albumin 3.2 (L) 3.6 - 5.0 g/dL Globulin 3.2 1.3 - 4.9 g/dL A/G Ratio 1.0 1.0 - 2.4 BILIRUBIN, TOTAL 0.6 0.1 - 1.5 mg/dL ALK PHOS 75 35 - 115 U/L AST 10 10 - 45 U/L ALT 26 10 - 65 U/L Estimated GFR >60 >60 mL/min/1.73m2 IMAGES No results found for this or any previous visit (from the past 360 hour(s)). PROBLEM LIST Principal Problem: Diffuse large B-cell lymphoma of lymph nodes of multiple regions Active Problems: Admission for antineoplastic chemotherapy Tobacco abuse Dental caries ASSESSMENT & PLAN Diffuse large B cell lymphoma Defer to oncology for chemotx orders On acyclovir for prophylaxis Prn zofran and phenergan for nausea reglan if w/out relief from either antiemetic above Consider periodontal infection On augmentin since 05/17/20 D5 Follow up with dentist as outpatient Tobacco use On nicotine patch DVT prophylaxis encouraged ambulation, no chemical prophylaxis due to anticipated fall in p latelet Disposition: For discharge after completion of chemotx Code Status: Full Code Cherelle Mathews MD 05/22/2020 9:59 AM PDT aLisa allen ARNP - 05/22/2020 9:49 AM PDT [facility] Service: Hematology and Oncology Progress Note Hospital Day: LOS: 3 days Patient Summary: Mr.Dylan Bernard Villarreal a 30 year oldmalewith no significant past medical history other than tobacco use (1/2-1 pack/day [id number]) who began experiencing cough, pleuritic ch est [...] mg/m IV day 5; Prednison e 60mg/m2 (120mgper Dr. Jeff) PO days 1-5 on a 21 day cycle. He received cycle 2 between April 30 2020 with 20% dose adjustment and etopo side, doxorubicin and cyclophosphamide. He is currently admitted to receive cycle 3of DA-R-EPOCH with dose adjustment by 20% for etoposide, doxorubicin and cyclophosphamide. SUBJECTIVE Events Overnight: Asad had more difficulty with nausea yesterday and did have 1 emesis of bilious fluid this morning. He reports lorazepam seems to help but wears off. He was able to eat breakfast this morning and ate a bagel, ham and eggs. He had a normal bowel movement this morning. No abdominal pain. No fever. No neck pain. No vertigo, headache or change s in vision. OBJECTIVE Scheduled Medications acyclovir 800 mg Oral BID amoxicillin-clavulanate 1 tablet Oral BID efhvagtacbnikcs-vukvxumdjsgxll-irevnecz 10 mL Swish & Spit 4x Daily DOXOrubicin with etoposide and vinCRIStine infusion 14.4 mg/m2/day (Treatment Plan Rec orded) Intravenous Q24H enoxaparin 40 mg Subcutaneous Q24H ondansetron with dexamethasone IVPB 8 mg Intravenous Once predniSONE 120 mg Oral Daily with breakfast Continuous Infusions sodium chloride 0.9% 100 mL/hr at 05/22/20 0013 PRN Medications acetaminophen, albuterol, benzonatate, diphenhydrAMINE, docusate sodium, EPINEPHrine, famot idine, heparin, LORazepam, methylPREDNISolone sodium succinate, metoclopramide, ondansetron, ondansetron, prochlorperazine, senna, sodium chloride 0.9%, sodium chloride 0.9%, sodium ch loride 0.9% Physical Exam Vital Signs: BP (!) 141/91 | Pulse 104 | Temp 36.7 C (98.1 F) (Oral) | Resp 20 | Ht 1.803 m (5' 11") | Wt 97.2 kg (214 lb 4.6 oz) | SpO2 97% | BMI 29.89 kg/m General: Alert and oriented. In no acute distress. Affect appropriate. Skin: Warm, dry and intact without rashes or ulcers. HEENT: Conjunctivae are clear. Sclera anicteric. Oral mucosa is moist. Obvious dental suki es along left lower molar with mild gum erosion but no obvious drainage or erythema. Lungs: Respiratory effort relaxed. No rales, rhonchi [...] fully engaged. Lab Data Recent Labs Lab 05/22/20 0444 05/21/20 0408 05/20/20 0411 05/18/20 0843 WBC 20.47* 21.98* 14.77* 17.24* RBC 3.66* 3.76* 3.54* 3.86* HGB 10.8* 11.0* 10.3* 11.2* HCT 32.2* 33.6* 32.8* 35.0* MCV 88.0 89.4 92.7 90.7 MCH 29.5 29.3 29.1 29.0 MCHC 33.5 32.7 31.4* 32.0 PLT 332 315 258 224 MPV 9.5 9.2 9.4 9.9 Recent Labs Lab 05/22/20 0444 05/21/20 0408 05/20/20 0411 05/18/20 0843 NA 137 140 142 136 K 3.8 4.1 4.0 4.3 CL 106 106 105 104 CO2 26 27 28 26 ANIONGAP 9 11 13 10 BUN 17 15 23 16 ALKPHOS 75 82 78 87 ALT 26 19 19 17 AST 10 13 16 16 EGFR >60 >60 >60 >60 PHOS -- -- 5.0* -- MG -- 1.9 1.9 -- Medical Imaging No results found for this or any previous visit (from the past 360 hour(s)). PROBLEM LIST Principal Problem: Diffuse large B-cell lymphoma of lymph nodes of multiple regions Active Problems: Admission for antineoplastic chemotherapy Tobacco abuse Dental [...] He received Rituximab in the outpatient setting May 18 and the cytotoxic portion of treatment beginning today with 20% increase in etoposide, doxorubicin and cyclophosphamide. Encounter for chemotherapy The patientinitiated treatmentSept with dose adjusted R-EPOCH as follows: Rituximab 375 mg/m IV day 0 (Given May 18) Etoposide 72 mg/m IV continuous infusion days 1 4 Vincristine 0.4 mg/m IV continuous infusion days 1 4 Doxorubicin 14.4 mg/m IV continuous infusion days 1 4 Cyclophosphamide 1080 mg/m IV day 5 Prednisone 60mg/m2 (120mgper Dr. Jeff) PO days 1-5 On a 21 day cycle The patient will receive GCSF following treatment. Today is cycle 3 day3. Anemia Hemoglobin 10.8with hematocrit 32.2. No intervention required. Should the patient req uire blood transfusion to keep hemoglobin greater than 8.0, he does not require irradiated b lood products. Infectious prophylaxis Acyclovir 800mg PO BID for viral prophylaxis No need for routine bactrim DS 1 for PJP prophylaxis Dental infection On Augmentin twice daily. Will follow up with dentist as outpatient. Nausea Unusual for nausea to develop several hours into the infusion. May be multifactorial inclu ding his antibiotic for his dental infection. I have adjusted antiemetics with lower dose L orazepam more frequently and placed him on routine Reglan while discontinuing other phenothi azines to avoid interaction. Patient will complete chemotherapy Monday evening and may be discharged at that time. Appo intment is made for white cell growth factor at [facility] on Monday, May 26. He will also need blood work at his ubaldo, May 19. I have provided a lab order fo r him. He will have it drawn in [place] (peripherally) and I have requested they fax it to [facility] and have provided the fax number. I also alerted the Dr. Jeff's MA to watch for the results for the appointment on June 08. Code Status: Full Code Lisa Nickerson, MSN, SENIOR PRINCIPAL PROCESS ENGINEER, HOSPITAL SCIENTIST-C, AOCNP Oncology Nurse Practitioner 05/22/2020 9:49 AM PDT [facility] Hematology & Oncology Portions of this chart may have been created with voice recognition software. Occasional wr mak-word or "sound-alike" substitutions may have occurred, even after review, due to the inh erent limitations of voice recognition software. Please read the chart carefully and recogni ze, using context, where these substitutions have occurred. Personal communication is reques akbar for any clarifications. Cherelle Babcock MD - 05/21/2020 10:18 AM PDT [facility] Service: Hospitalist Progress Note Hospital Day: LOS: 2 days SUBJECTIVE Patient Summary: Mr. 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 He complained of left lower molar tooth pain and was started on augmentin on 05/17/20. Events Overnight: Patient today complains of having nausea, not relieved with either zofran of phenergan. Reg konstantin partly relieved his symptom. Scheduled Medications acyclovir 800 mg Oral BID amoxicillin-clavulanate 1 tablet Oral BID gmstqbqfmqfyazd-kijokbgeevlcvx-zuhfftua 10 mL Swish & Spit 4x Daily DOXOrubicin with etoposide and vinCRIStine infusion 14.4 mg/m2/day (Treatment Plan Rec orded) Intravenous Q24H DOXOrubicin with etoposide and vinCRIStine infusion 14.4 mg/m2/day (Treatment Plan Rec orded) Intravenous Q24H enoxaparin 40 mg Subcutaneous Q24H nicotine 1 patch Transdermal Nightly ondansetron with dexamethasone IVPB 16 mg Intravenous Once predniSONE 120 mg Oral Daily with breakfast Continuous Infusions sodium chloride 0.9% 100 mL/hr at 05/21/20 0358 PRN Medications acetaminophen, albuterol, benzonatate, diphenhydrAMINE, docusate sodium, EPINEPHrine, famot idine, heparin, LORazepam, methylPREDNISolone sodium succinate, ondansetron, ondansetron, pr ochlorperazine, senna, sodium chloride 0.9%, sodium chloride 0.9%, sodium chloride 0.9% OBJECTIVE Vital Signs: BP 140/87 | Pulse 111 | Temp 36.6 C (97.8 F) (Oral) | Resp 20 | Ht 1.803 m (5' 11") | Wt 97.2 kg (214 lb 4.6 oz) | SpO2 97% | BMI 29.89 kg/m Patient Vitals for the past 24 hrs: BP Temp Temp src Pulse Resp SpO2 Weight 05/21/20 0743 140/87 36.6 C (97.8 F) Oral 111 20 97 % 97.2 kg (214 lb 4.6 oz) 05/21/20 0411 136/79 36.8 C (98.2 F) Oral 69 18 95 % 05/21/20 0005 109/56 36.4 C (97.6 F) Oral 90 20 96 % 05/20/20 2035 109/58 36.8 C (98.2 F) Oral 81 20 93 % 05/20/20 1537 111/58 36.8 C (98.2 F) Oral 91 21 98 % 05/20/20 1138 136/71 36.7 C (98.1 F) Oral 97 21 98 % Intake/Output Summary (Last 24 hours) at 05/21/2020 1018 Last data filed at 05/21/2020 0855 Gross per 24 hour Intake 3414.91 ml Output 2890 ml Net 524.91 ml Physical Exam Constitutional: He is oriented to person, place, and time and well-developed, well-nourishe d, and in no distress. HENT: Head: Normocephalic and atraumatic. Eyes: Pupils are equal, round, and reactive to light. Neck: Normal range of motion. No JVD present. Cardiovascular: Normal rate and regular rhythm. No murmur heard. Pulmonary/Chest: Effort normal. He has no wheezes. He has no rales. Abdominal: Soft. Bowel sounds are normal. Musculoskeletal: General: No edema. Lymphadenopathy: He has no cervical adenopathy. Neurological: He is alert and oriented to person, place, and time. No cranial nerve deficit . Skin: Skin is warm. Psychiatric: Affect normal. DATA Recent Results (from the past 24 hour(s)) Magnesium Result Value Ref Range Magnesium 1.9 1.7 - 2.4 mg/dL CBC with Differential Result Value Ref Range WBC 21.98 (H) 3.80 - 11.00 K/uL Red Blood Cells 3.76 (L) 4.20 - 5.70 M/uL Hemoglobin 11.0 (L) 13.2 - 17.0 g/dL Hematocrit 33.6 (L) 39.0 - 50.0 % MCV 89.4 80.0 - 100.0 fl MCH 29.3 27.0 - 34.0 pg MCHC 32.7 32.0 - 35.5 g/dL RDW-SD 58.6 (H) 37 - 53 fl Platelet Count 315 150 - 400 K/uL MPV 9.2 fl Diff Type MANUAL % Segmented Neutrophils 85 % % Bands 3 % % Metamyelocytes 1 % % Lymphocytes 7 % % Monocytes 4 % Neutrophils, Absolute 18.68 (H) 1.90 - 7.40 K/uL Absolute Band Neutrophils 0.66 (H) 0.00 - 0.20 K/uL Absolute Metamyelocytes 0.22 (H) 0.00 K/uL Absolute Lymphocytes 1.54 1.00 - 3.90 K/uL Absolute Monocytes 0.88 (H) 0.00 - 0.80 K/uL Platelet Estimate ADEQUATE RBC Morphology RBC AND PLT MORPHOLOGY APPEAR NORMAL Comprehensive Metabolic Panel Result Value Ref Range Na 140 135 - 145 mmol/L K 4.1 3.5 - 4.9 mmol/L Cl 106 99 - 109 mmol/L CO2 27 23 - 32 mmol/L Anion Gap 11 5 - 20 mmol/L Glucose 116 (H) 65 - 99 mg/dL BUN 15 8 - 25 mg/dL Creatinine 0.74 0.70 - 1.30 mg/dL BUN/Creatinine Ratio 20 Calcium 9.2 8.5 - 10.5 mg/dL Protein, Total 6.0 (L) 6.3 - 8.2 g/dL Albumin 4.4 3.6 - 5.0 g/dL Globulin 1.6 1.3 - 4.9 g/dL A/G Ratio 2.8 (H) 1.0 - 2.4 BILIRUBIN, TOTAL 0.4 0.1 - 1.5 mg/dL ALK PHOS 82 35 - 115 U/L AST 13 10 - 45 U/L ALT 19 10 - 65 U/L Estimated GFR >60 >60 mL/min/1.73m2 IMAGES No results found for this or any previous visit (from the past 360 hour(s)). PROBLEM LIST Principal Problem: Diffuse large B-cell lymphoma of lymph nodes of multiple regions Active Problems: Admission for antineoplastic chemotherapy Tobacco abuse Dental caries ASSESSMENT & PLAN Diffuse large B cell lymphoma Defer to oncology for chemotx orders On acyclovir for prophylaxis Prn zofran and phenergan for nausea reglan if w/out relief from either antiemetic above Consider periodontal infection On augmentin since 05/17/20 Follow up with dentist as outpatient Tobacco use On nicotine patch DVT prophylaxis encouraged ambulation, no chemical prophylaxis due to anticipated fall in p latelet Disposition: For discharge after completion of chemotx Code Status: Full Code Cherelle Mathews MD 05/21/2020 10:18 AM PDT isa Nickerson ARNP - 05/21/2020 8:00 AM PDT [facility] Service: Hematology and Oncology Progress Note Hospital Day: LOS: 2 days Patient Summary: Mr.Dylan Bernard Villarreal a 30 year oldmalewith no significant past medical history other than tobacco use (1/2-1 pack/day [id number]) who began experiencing cough, pleuritic ch est [...] mg/m IV day 5; Prednison e 60mg/m2 (120mgper Dr. Jeff) PO days 1-5 on a 21 day cycle. He received cycle 2 between April 30 2020 with 20% dose adjustment and etopo side, doxorubicin and cyclophosphamide. He is currently admitted to receive cycle 3of DA-R-EPOCH with dose adjustment by 20% for etoposide, doxorubicin and cyclophosphamide. SUBJECTIVE Events Overnight: Asad has had increased nausea since yesterday. No vomiting. He did rec eive a dose of metoclopramide with mild improvement. Denies constipation or diarrhea. Had a normal bowel movement yesterday. He reports his left lower molar is less tender. He has been afebrile. OBJECTIVE Scheduled Medications acyclovir 800 mg Oral BID amoxicillin-clavulanate 1 tablet Oral BID qcnrocmdcjbampn-aopsrjbrhyhkkc-zcepgxem 10 mL Swish & Spit 4x Daily DOXOrubicin with etoposide and vinCRIStine infusion 14.4 mg/m2/day (Treatment Plan Rec orded) Intravenous Q24H DOXOrubicin with etoposide and vinCRIStine infusion 14.4 mg/m2/day (Treatment Plan Rec orded) Intravenous Q24H enoxaparin 40 mg Subcutaneous Q24H nicotine 1 patch Transdermal Nightly ondansetron with dexamethasone IVPB 16 mg Intravenous Once predniSONE 120 mg Oral Daily with breakfast Continuous Infusions sodium chloride 0.9% 100 mL/hr at 05/21/20 0358 PRN Medications acetaminophen, albuterol, benzonatate, diphenhydrAMINE, docusate sodium, EPINEPHrine, famot idine, heparin, methylPREDNISolone sodium succinate, ondansetron, ondansetron, prochlorperaz ine, senna, sodium chloride 0.9%, sodium chloride 0.9%, sodium chloride 0.9% Physical Exam Vital Signs: BP 140/87 | Pulse 111 | Temp 36.6 C (97.8 F) (Oral) | Resp 20 | Ht 1.8 03 m (5' 11") | Wt 97.2 kg (214 lb 4.6 oz) | SpO2 97% | BMI 29.89 kg/m General: Alert and oriented. In no acute distress. Affect appropriate. Skin: Warm, dry and intact without rashes or ulcers. HEENT: Conjunctivae are clear. Sclera anicteric. Oral mucosa is moist. Obvious dental suki es along left lower molar with mild gum erosion but no obvious drainage or erythema. Lungs: Respiratory effort relaxed. No rales, rhonchi [...] fully engaged. Lab Data Recent Labs Lab 05/21/2040705/20/201 05/18/20 0843 WBC 21.98* 14.77* 17.24* RBC 3.76* 3.54* 3.86* HGB 11.0* 10.3* 11.2* HCT 33.6* 32.8* 35.0* MCV 89.4 92.7 90.7 MCH 29.3 29.1 29.0 MCHC 32.7 31.4* 32.0 PLT 315 258 224 MPV 9.2 9.4 9.9 Recent Labs Lab 05/21/208 05/20/20 0411 05/18/20 0843 NA 140 142 136 K 4.1 4.0 4.3 CL 106 105 104 CO2 27 28 26 ANIONGAP 11 13 10 BUN 15 23 16 ALKPHOS 82 78 87 ALT 19 19 17 AST 13 16 16 EGFR >60 >60 >60 PHOS -- 5.0* -- MG 1.9 1.9 -- Medical Imaging No results found for this or any previous visit (from the past 360 hour(s)). PROBLEM LIST Principal Problem: Diffuse large B-cell lymphoma of lymph nodes of multiple regions Active Problems: Admission for antineoplastic chemotherapy Tobacco abuse Dental [...] He received Rituximab in the outpatient setting May 18 and the cytotoxic portion of treatment beginning today with 20% increase in etoposide, doxorubicin and cyclophosphamide. Encounter for chemotherapy The patientinitiated treatmentS with dose adjusted R-EPOCH as follows: Rituximab 375 mg/m IV day 0 (Given May 18) Etoposide 72 mg/m IV continuous infusion days 1 4 Vincristine 0.4 mg/m IV continuous infusion days 1 4 Doxorubicin 14.4 mg/m IV continuous infusion days 1 4 Cyclophosphamide 1080 mg/m IV day 5 Prednisone 60mg/m2 (120mgper Dr. Jeff) PO days 1-5 On a 21 day cycle The patient will receive GCSF following treatment. Today is cycle 3 day2. Anemia Hemoglobin 10.2with hematocrit 32.3. No intervention required. Should the patient req uire blood transfusion to keep hemoglobin greater than 8.0, he does not require irradiated b lood products. Infectious prophylaxis Acyclovir 800mg PO BID for viral prophylaxis No need for routine bactrim DS 1 for PJP prophylaxis Dental infection On Augmentin twice daily. Will follow up with dentist as outpatient. Nausea Unusual for nausea to develop several hours into the infusion. May be multifactorial inclu ding his antibiotic for his dental infection. Will give a dose of lorazepam. Code Status: Full Code BETSY Gupta, SENIOR PRINCIPAL PROCESS ENGINEER, HOSPITAL SCIENTIST-C, AOCNP Oncology Nurse Practitioner 05/21/2020 8:[address] [facility] Hematology & Oncology Portions of this chart [...] for any clarifications. Anna Shah RN - 05/20/2020 5:31 PM PDTEnd of shift chart review complete. No changes in acute ass essment. Vital signs stable. Pt appears to be tolerating chemotherapy well. Electronically s igned by Skylar Figueredo RN at 05/20/2020 5:[address] - 05/20/2020 10: 27 AM PDT NUTRITION NOTE Summary Reason For Assessment: other (see comments)(chemo admit.) Pt admitted for Diffuse large B cell lymphoma, chemotherapy cycle 3 day 1. Spoke with pt vi a telephone to obtain nutritional information. Diet Experience Self-Selected Diet: Pt reports good appetite, eating well prior to admit. Pt eats 3 meals a day with snacks on at times, follows a high protein diet, drinks a whey protein shake daily over the past 1 1/2 weeks. Fluid/Beverage Intake Oral Fluids Amount: Ad fiordaliza. Food Intake Type of Food/Meals: Current active diet order is: Diet Diet general; Effective Now Amount of Food: Pt reports he has a good appetite, had not ordered breakfast at time of dis cussion but plans to soon. Nourishments: Pt says he would like to be able to order Ensure Enlive prn. Nutritionally Relevant Medications Decadron, NS at 100 ml/hr. Nutrition-Focused Physical Findings Extremities, Muscles and Bones: no edema noted. Digestive System (Mouth to Rectum): Pt denies issues with chewing/swallowing. Anthropometrics Pt denies wt loss. Current Weight: 97.9 kg (215 lb 13.3 oz) BMI30.1 - class I obesity. Admit Weight: 98.9 kg (218 lb 0.6 oz) Biochemical Data, Medical Test, and Procedures Recent Labs 05/20/20 0411 NA 142 K 4.0 GLU 85 BUN 23 CREA 0.87 PHOS 5.0* MG 1.9 Recommendations Continue general diet as ordered. Encourage high protein, nutrient dense meals/snacks. Pt c an order Ensure Enlive prn. RD staff to follow per protocol. Nutritional Risk Required Follow Up: (05/26 LM) Archie Liriano RD,CD 05/20/2020 10:27 AM PDT Cherelle Abraham MD - 05/20/2020 8:03 AM PDT [facility] Service: Hospitalist Progress Note Hospital Day: LOS: 1 day SUBJECTIVE Patient Summary: Mr. 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 He complained of left lower molar tooth pain and was started on augmentin on 05/17/20. Events Overnight: Patient has no complaint today, reports doing well. Scheduled Medications acyclovir 800 mg Oral BID amoxicillin-clavulanate 1 tablet Oral BID mpluefbhqxlfsfu-kskxiacomdujhq-nxfjwrkk 10 mL Swish & Spit 4x Daily DOXOrubicin with etoposide and vinCRIStine infusion 10 mg/m2/day (Treatment Plan Recor ded) Intravenous Q24H enoxaparin 40 mg Subcutaneous Q24H nicotine 1 patch Transdermal Nightly ondansetron with dexamethasone IVPB 16 mg Intravenous Once palonosetron with dexamethasone IVPB 0.25 mg Intravenous Once Continuous Infusions sodium chloride 0.9% 100 mL/hr at 05/20/20 0736 PRN Medications acetaminophen, albuterol, benzonatate, diphenhydrAMINE, docusate sodium, EPINEPHrine, famot idine, heparin, methylPREDNISolone sodium succinate, ondansetron, ondansetron, prochlorperaz ine, senna, sodium chloride 0.9%, sodium chloride 0.9%, sodium chloride 0.9% OBJECTIVE Vital Signs: BP 118/67 | Pulse 98 | Temp 36.4 C (97.6 F) (Oral) | Resp 20 | Ht 1.803 m (5' 11") | Wt 98.9 kg (218 lb 0.6 oz) | SpO2 97% | BMI 30.41 kg/m Patient Vitals for the past 24 hrs: BP Temp Temp src Pulse Resp SpO2 Height Weight 05/20/20 0444 118/67 36.4 C (97.6 F) Oral 98 20 97 % 05/20/20 0027 115/62 36.6 C (97.8 F) Oral 80 20 98 % 05/19/202002 1.803 m (5' 11") 98.9 kg (218 lb 0.6 oz) 05/19/20 195 122/61 36.6 C (97.9 F) Oral 94 20 97 % Intake/Output Summary (Last 24 hours) at 05/20/2020 0803 Last data filed at 05/20/2020 0446 Gross per 24 hour Intake 650.81 ml Output Net 650.81 ml Physical Exam Constitutional: He is oriented to person, place, and time and well-developed, well-nourishe d, and in no distress. HENT: Head: Normocephalic and atraumatic. Eyes: Pupils are equal, round, and reactive to light. Neck: Normal range of motion. No JVD present. Cardiovascular: Normal rate and regular rhythm. No murmur heard. Pulmonary/Chest: Effort normal. He has no wheezes. He has no rales. Abdominal: Soft. Bowel sounds are normal. Musculoskeletal: General: No edema. Lymphadenopathy: He has no cervical adenopathy. Neurological: He is alert and oriented to person, place, and time. No cranial nerve deficit . Skin: Skin is warm. Psychiatric: Affect normal. DATA Recent Results (from the past 24 hour(s)) CBC with Differential Result Value Ref Range WBC 14.77 (H) 3.80 - 11.00 K/uL Red Blood Cells 3.54 (L) 4.20 - 5.70 M/uL Hemoglobin 10.3 (L) 13.2 - 17.0 g/dL Hematocrit 32.8 (L) 39.0 - 50.0 % MCV 92.7 80.0 - 100.0 fl MCH 29.1 27.0 - 34.0 pg MCHC 31.4 (L) 32.0 - 35.5 g/dL RDW-SD 64.9 (H) 37 - 53 fl Platelet Count 258 150 - 400 K/uL MPV 9.4 fl Diff Type MANUAL % Segmented Neutrophils 70 % % Bands 7 % % Metamyelocytes 2 % % Lymphocytes 8 % % Monocytes 10 % Eosinophils % 3 % Neutrophils, Absolute 10.34 (H) 1.90 - 7.40 K/uL Absolute Band Neutrophils 1.03 (H) 0.00 - 0.20 K/uL Absolute Metamyelocytes 0.30 (H) 0.00 K/uL Absolute Lymphocytes 1.18 1.00 - 3.90 K/uL Absolute Monocytes 1.48 (H) 0.00 - 0.80 K/uL Eosinophils, Absolute 0.44 0.00 - 0.50 K/uL RBC Morphology 1+ Comprehensive Metabolic Panel Result Value Ref Range Na 142 135 - 145 mmol/L K 4.0 3.5 - 4.9 mmol/L Cl 105 99 - 109 mmol/L CO2 28 23 - 32 mmol/L Anion Gap 13 5 - 20 mmol/L Glucose 85 65 - 99 mg/dL BUN 23 8 - 25 mg/dL Creatinine 0.87 0.70 - 1.30 mg/dL BUN/Creatinine Ratio 26 Calcium 8.8 8.5 - 10.5 mg/dL Protein, Total 5.8 (L) 6.3 - 8.2 g/dL Albumin 4.1 3.6 - 5.0 g/dL Globulin 1.7 1.3 - 4.9 g/dL A/G Ratio 2.4 1.0 - 2.4 BILIRUBIN, TOTAL 0.3 0.1 - 1.5 mg/dL ALK PHOS 78 35 - 115 U/L AST 16 10 - 45 U/L ALT 19 10 - 65 U/L Estimated GFR >60 >60 mL/min/1.73m2 Magnesium Result Value Ref Range Magnesium 1.9 1.7 - 2.4 mg/dL Phosphorus Result Value Ref Range Phosphorus 5.0 (H) 2.3 - 4.8 mg/dL IMAGES No results found for this or any previous visit (from the past 360 hour(s)). PROBLEM LIST Principal Problem: Diffuse large B-cell lymphoma of lymph nodes of multiple regions Active Problems: Admission for antineoplastic chemotherapy Tobacco abuse Dental caries ASSESSMENT & PLAN Diffuse large B cell lymphoma Defer to oncology for chemotx orders On acyclovir for prophylaxis Consider periodontal infection On augmentin since 05/17/20 Follow up with dentist as outpatient Tobacco use On nicotine patch DVT prophylaxis Disposition: For discharge after completion of chemotx Code Status: Full Code Cherelle Mathews MD 05/20/2020 8:03 AM PDT documented in this enco unter H&P Notes Addie Whiteside MD - 05/19/2020 6:21 PM PDTFormatting of this note might be different from th e original. [facility] Service: Hospitalist History and Physical Date of Admission: May 19 2020 Requesting Physician: Oncologist Reason for Admission: 3rd cycle chemotherapy CHIEF COMPLAINT: Oncology team requested for direct admission for 3rd cycle of chemothe rapy for diffuse large B-cell lymphoma patient recently [...] a primar y mediastinal large B-cell lymphoma. Timeline admission- He was admitted at [facility] from 08 April to 13 April for the first cycle of chemo admitted from 29 April to 04 May for second cycle of chemo as well This time for third cycle he received C3 Rituximab On May as out patient at clinic Requested by oncology team for admit for chemo Cycle#3rd 1-5 EPOCH. He denies any recent cough congestion GI symptoms or skin rash he was recently complaint of tooth pain left lower molar some erosion no erythema or disch arge no abscess pattern he was empirically put on Augmentin Since May as well By onc ology team and see dentist as outpatient as well care plan deny any ear pain headache fever cough congestion no sore throat REVIEW OF SYSTEMS 12 point ROS reviewed and negative other than above Past Medical History: Diagnosis Date Chronic cough 2019 Chronic headaches 2 x's per month History of pneumonia Lymphoma involving lung (HCC) 2019 right lung mass Past Surgical History: Procedure Laterality Date LYMPH NODE BIOPSY Right 03/20/2020 Procedure: BIOPSY DEEP CERVICAL NODE; Surgeon: She Huang DO; Location: [facility] No Known Allergies No [...] location, and contour. Throat: no exudates, dry. left lower molar kimberly e erosion no erythema or discharge no abscess gumline seems to be not really inflamed no flu ctuation on palpation no preauricular pain no headache no neck pain or rigidity NECK: is supple, full ROM, nontender. LUNGS: [...] CBC: Lab Results Component Value Date WBC 17.24 (H) 05/18/2020 RBC 3.86 (L) 05/18/2020 HGB 11.2 (L) 05/18/2020 HCT 35.0 (L) 05/18/2020 MCV 90.7 05/18/2020 MCH 29.0 05/18/2020 MCHC 32.0 05/18/2020 PLT 224 05/18/2020 MPV 9.9 05/18/2020 DIFFTYPE MANUAL 05/18/2020 CMP: Lab Results Component Value Date NA 136 05/18/2020 K 4.3 05/18/2020 CL 104 05/18/2020 CO2 26 05/18/2020 ANIONGAP 10 05/18/2020 BUN 16 05/18/2020 AGRATIO 2.0 05/18/2020 AST 16 05/18/2020 ALT 17 05/18/2020 EGFR >60 05/18/2020 BMP: Lab Results Component Value Date NA 136 05/18/2020 K 4.3 05/18/2020 CL 104 05/18/2020 CO2 26 05/18/2020 ANIONGAP 10 05/18/2020 BUN 16 05/18/2020 EGFR >60 05/18/2020 Hepatic Function Panel: Lab Results Component Value Date AST 16 05/18/2020 ALT 17 05/18/2020 Magnesium: Lab Results Component Value Date MG 1.9 04/30/2020 Phosphorus: Lab Results Component Value Date PHOS 5.4 (H) 04/30/2020 PT/INR: Lab Results Component Value Date INR 1.0 04/01/2020 PTT: No results found for: APTT[APTT HgbA1c: No components found for: HGBA1C Active Problems: Diffuse large B-cell lymphoma,-admitted for antineoplastic therapy chemo ASSESSMENT AND PLAN: Diffuse large B-cell lymphoma, positive for CD20, CD23, BCL 6, CD79a, and PAX 5. Ki-67 was 60%. 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 admit for chemo 3rd cycle for Cycle#3 1-5 EPOCH. was started Rituxan on 06 april 2020 as out patient IVF NS at 100 cc/h A.m. lab CBC,CMP mag and phos Resume all his home prophylactic medication per oncology team tooth pain left lower molar some erosion no erythema or discharge no abscess pattern he wa s empirically put on Augmentin Since May as well Continue for now no preauricular pa in no headache no neck pain or rigidity care plan is to follow-up with dentist as outpatient chronic smoker nicotine Patch for now DVT pro Hospital records reviewed. Labs and radiologic studies and reports reviewed. Discussed find ings with patient and patient family and also explaining what will be the care plan Old records reviewed on EMR. Dictation software, [employer], used which may contain error for similar sounding words even af ter review. Personal communication requested for any clarification. Disposition: inpatient Code Status: FULL CODE Primary Care Physician: MD Addie Frank MD 05/19/2020 documented in th is encounter Consult Notes Mayte Gunderson ARNP - 05/20/2020 7:58 AM PDTAssociated Order(s): PROVIDER TO PROVIDER CON SULT [facility] Service: Hematology and Oncology Progress Note Hospital Day: LOS: 1 day Patient Summary: Mr.Dylan Bernard Villarreal a 30 year oldmalewith no significant past medical history other than tobacco use (1/2-1 pack/day [id number]) who began experiencing cough, pleuritic ch est [...] mg/m IV day 5; Prednison e 60mg/m2 (120mgper Dr. Jeff) PO days 1-5 on a 21 day cycle. He received cycle 2 between April 30 2020 with 20% dose adjustment and etopo side, doxorubicin and cyclophosphamide. He is currently admitted to receive cycle 3 of DA-R-EPOCH with dose adjustment by 20% for e toposide, doxorubicin and cyclophosphamide. SUBJECTIVE Asad reports ongoing fatigue following his last cycle. He reports a tooth ache to 1 of hi s teeth in his left lower jaw with associated left neck swelling and pain. [facility] and started on Augmentin with improvement in symptoms. He will denies tooth pain at this time and states the swelling has resolved. He reports he will follow-up with a dentist following discharge. He notes he does not have any difficulty eating. Vicente es fever. Denies shortness of breath or chest pain. Denies nausea or vomiting. No abdomin al pain, constipation or diarrhea. States his appetite is good. OBJECTIVE Scheduled Medications acyclovir 800 mg Oral BID amoxicillin-clavulanate 1 tablet Oral BID gxtrjokurukujnw-nokacqrtienldk-dfqnhynd 10 mL Swish & Spit 4x Daily DOXOrubicin with etoposide and vinCRIStine infusion 10 mg/m2/day (Treatment Plan Recor ded) Intravenous Q24H enoxaparin 40 mg Subcutaneous Q24H nicotine 1 patch Transdermal Nightly ondansetron with dexamethasone IVPB 16 mg Intravenous Once palonosetron with dexamethasone IVPB 0.25 mg Intravenous Once Continuous Infusions sodium chloride 0.9% 100 mL/hr at 05/20/20 0736 PRN Medications acetaminophen, albuterol, benzonatate, diphenhydrAMINE, docusate sodium, EPINEPHrine, famot idine, heparin, methylPREDNISolone sodium succinate, ondansetron, ondansetron, prochlorperaz ine, senna, sodium chloride 0.9%, sodium chloride 0.9%, sodium chloride 0.9% Physical Exam Vital Signs: BP 118/67 | Pulse 98 | Temp 36.4 C (97.6 F) (Oral) | Resp 20 | Ht 1.80 3 m (5' 11") | Wt 98.9 kg (218 lb 0.6 oz) | SpO2 97% | BMI 30.41 kg/m General: Alert and oriented. In no acute distress. Affect appropriate. Skin: Warm, dry and intact without rashes or ulcers. Mediport right chest wall unremarkabl e. HEENT: Conjunctivae are clear. Sclera anicteric. Oral mucosa is moist and pink. Saldivar left lower molar noted. Mild gum erosion noted alongside the edge of the tooth. No exposed bone . No edema, erythema or drainage noted. Neck: Supple. Lungs: Respiratory effort relaxed. No rales, rhonchi or wheezes. Heart: Regular rate and rhythm. No murmur, gallop or rubs Abdomen: Soft, nondistended, nontender. No masses are appreciated. No hepatosplenomegaly. A ctive bowel tones in all 4 quadrants. Lymphatics: There is no cervical, submental or preauricular lymphadenopathy. No tenderness to palpation. Extremities: No peripheral edema. Musculo: Bones and joints are unremarkable. Psychiatric: No signs of depression or anxiety. Maintains good eye contact, asks appropriat e questions, remains fully engaged. Lab Data Recent Labs Lab 05/20/2041005/18/20 0843 WBC 14.77* 17.24* RBC 3.54* 3.86* HGB 10.3* 11.2* HCT 32.8* 35.0* MCV 92.7 90.7 MCH 29.1 29.0 MCHC 31.4* 32.0 PLT 258 224 MPV 9.4 9.9 Recent Labs Lab 05/20/2041005/18/20 0843 NA 142 136 K 4.0 4.3 CL 105 104 CO2 28 26 ANIONGAP 13 10 BUN 23 16 ALKPHOS 78 87 ALT 19 17 AST 16 16 EGFR >60 >60 PHOS 5.0* -- MG 1.9 -- Medical Imaging No results found for this or any previous visit (from the past 360 hour(s)). 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 He initiated DA-R-EPOCH April 09-2019 and received cycle 2 April 30 with dose escal ations per protocol. He is now admitted for cycle 3 with escalation of dosages per protocol . He received Rituximab in the outpatient setting May 18 and the cytotoxic portion of t reatment beginning today. The patient did not have weekly labs drawn following cycle 2 of chemotherapy. However, today's labs are appropriate for 20% increase in etoposide, doxorubi josselyn and cyclophosphamide. Encounter for chemotherapy The patientwill initiate treatmentAugust May 20 with dose adjusted R-EPOCH as fol lows: Rituximab 375 mg/m IV day 0 (Given May 18) Etoposide 72 mg/m IV continuous infusion days 1 4 Vincristine 0.4 mg/m IV continuous infusion days 1 4 Doxorubicin 14.4 mg/m IV continuous infusion days 1 4 Cyclophosphamide 1080 mg/m IV day 5 Prednisone 60mg/m2 (120mgper Dr. Jeff) PO days 1-5 On a 21 day cycle The patient will receive GCSF following treatment (to be given in [place]). Today is cycle 3 day1. Chemotherapy today. Anemia Hemoglobin 10.3with hematocrit . No intervention required. Should the patient require blood transfusion to keep hemoglobin greater than 8.0, he does not require irradiated blood products. Infectious prophylaxis Acyclovir 800mg PO BID for viral prophylaxis No need for routine bactrim DS 1 for PJP prophylaxis Left lower molar continue Augmentin twice daily. Patient to follow-up with dentist following discharge. Code Status: Full Code KOLE Do, HOSPITAL SCIENTIST- Oncology Nurse Practitioner 05/20/2020 7:[address] [facility] Hematology & Oncology Portions of this chart may have been created with voice recognition software. Occasional wr mak-word or "sound-alike" substitutions may have occurred, even after review, due to the inh erent limitations of voice recognition software. Please read the chart carefully and recogni ze, using context, where these substitutions have occurred. Personal communication is reques akbar for any clarifications. documented in this e ncounter Miscellaneous Notes Plan of Stef - Konstantin Ram RN - 05/24/2020 6:36 PM PDT Problem: Adult Inpatient Plan of Care Goal: Readiness for Transition of Care Outcome: Ongoing, progressing Intervention: Mutually Develop Transition Plan Note: Patient discharged to home via private vehicle. Discharge instructions, scripts and F /U appts reviewed with patient with no issues noted. lan of Stef - Konstantin Bonilla RN - 05/24/2020 1:10 PM PDT Problem: Adult Inpatient Plan of Care Goal: Plan of Care Review Outcome: Met Goal: Patient-Specific Goal Outcome: Met Goal: Absence of Hospital-Acquired Illness or Injury Outcome: Met Goal: Optimal Comfort and Wellbeing Outcome: Met Goal: Readiness for Transition of Care 05/24/2020 1310 by Konstantin Ram RN Outcome: Met 05/24/2020 1309 by Konstantin Ram RN Outcome: Ongoing, progressing Intervention: Mutually Develop Transition Plan Note: Patient discharged to home via private vehicle. Discharge instructions, scripts and F /U appts reviewed with patient with no issues noted. Goal: Rounds/Family Conference Outcome: Met lan of Chang Orozco RN - 05/24/2020 5:53 AM PDTPts nausea seems to be doing better this sift. Pts c hemo had to be stopped for a couple hours due to needing to be sent down to pharmacy for new tubing. VSS, no complaints of pain. Chart check complete. Chang Donis RN lan of Chang Hall RN - 05/24/2020 3:52 AM PDT Problem: Adult Inpatient Plan of Care Goal: Optimal Comfort and Wellbeing Outcome: Ongoing, progressing Pt being medicated with scheduled and PRN medications to control his nausea. lan of Konstantin Multani RN - 05/23/2020 5:57 PM PDT Problem: Nausea and Vomiting (Chemotherapy Effects) Goal: Fluid and Electrolyte Balance Outcome: Ongoing, progressing Intervention: Prevent and Manage Nausea and Vomiting Flowsheets (Taken 05/23/2020 1408) Environmental Support: calm environment promoted comfort object encouraged Note: Patient's nausea being best controlled with prn Ativan this shift. Patient has needed 3 doses so far this shift. End of shift audit completed. No acute changed noted. Patient tolerating IV chemo and to d ischarge tomorrow once it completes. Electronically signed by Konstantin Ram RN at 020 5:57 PM PDTPlan of Judy Alexis RN - 05/22/2020 11:01 PM PDTFormatting of t his note might be different from the original. Problem: Anemia (Chemotherapy Effects) Goal: Anemia Symptom Improvement Outcome: Ongoing, progressing Problem: Nausea and Vomiting (Chemotherapy Effects) Goal: Fluid and Electrolyte Balance Outcome: Ongoing, progressing Problem: Neurotoxicity (Chemotherapy Effects) Goal: Neurotoxicity Symptom Control Outcome: Ongoing, progressing Problem: Neutropenia (Chemotherapy Effects) [...] new s/sx to nursing staff. He denies states that his nausea is somewhat improved this evening with addition of scheduled Reglan. Pt tolerated chemotherapy infusion well, but at approximately 0200 chemo was again noted to be leaking from filter on chemo tubing. Bag sent to pharmacy, reprimed, and restarted. 24 hour chart check and end of shift review complete. Judy Alcantara RN lan of Sari Hill RN - 05/22/2020 6:05 PM PDTPatient still had intermittent nausea and throughout the day Ativan worked best to control it. Patient tolerating chemo today. Vital sign stable end of shift review complete Sari Duran RN lan of Luly Goff RN - 05/22/2020 3:07 PM PDTP t is anticipated to discharge to home with family when chemo is completed. Likely Monday no CM needs. lan of Sari Tello RN - 05/22/2020 10:56 AM PDT Problem: Nausea and Vomiting (Chemotherapy Effects) Goal: Fluid and Electrolyte Balance Outcome: Ongoing, progressing Intervention: Prevent and Manage Nausea and Vomiting Flowsheets (Taken 05/22/2020 1052) Environmental Support: calm environment promoted Note: Patients nausea improved after receiving ativan. lan of Judy Morrell RN - 05/21/2020 8:55 PM PDT Problem: Nausea and Vomiting (Chemotherapy Effects) Goal: Fluid and Electrolyte Balance Outcome: Ongoing, progressing Problem: Oral Mucositis (Chemotherapy Effects) Goal: Improved Oral Mucous Membrane Integrity Outcome: Ongoing, progressing Pt continues to have nausea throughout the evening, he struggles to eat dinner or take PO m edication dt nausea. PRN Ativan is somewhat effective in controlling nausea. Pt reports some improvement in mouth sores, medicated with scheduled dukes's. Vital signs stable throughout the evening. Pt tolerated chemo well other than persistent na usea. Chemo was delayed for approximately 1 hour dt leakage from the line, chemo re-primed b y pharmacy. 24 hour chart check and end of shift review complete. Judy Alcantara RN lan of Sari Hill RN - 05/21/2020 5:47 PM PDTPatient had increased nausea this morning. Patient m edicated with Reglan and Ativan and His nausea improved Patient was able to tolerate his venus ls today. Chemo infusing. Blood return noted. Vital sign stable end of shift review complete Sari Duran RN konstantin of Sari Tello RN - 05/21/2020 10:58 AM PDT Problem: Fall Injury Risk Goal: Absence of Fall and Fall-Related Injury Outcome: Ongoing, progressing Problem: Nausea and Vomiting (Chemotherapy Effects) Goal: Fluid and Electrolyte Balance Outcome: Ongoing, not progressing Intervention: Prevent and Manage Nausea and Vomiting Flowsheets (Taken 05/21/2020 1057) Environmental Support: calm environment promoted Note: Patient is having increased N/V. Patient medicated. Patient is tolerating breakfast a fter ativan was given. lan of Xochitl Umana RN - 05/21/2020 1:05 AM PDTPt has tingling to right hand but states it has improved throughout night when reassessed. PRN zofran given once for naus ea. Chemotherapy infusing and being tolerated. Problem: Adult Inpatient Plan of Care Goal: Plan of Care Review Outcome: Ongoing, progressing Flowsheets (Taken 05/21/2020 0105) Plan of Care Reviewed With: patient End of shift review complete. 24hr review complete. Xochitl Walters RN P DTPlan of Stef - Skylar Figueredo RN - 05/20/2020 11:50 AM PDT Problem: Adult Inpatient Plan of Care Goal: Plan of Care Review Outcome: Ongoing, progressing Problem: Fall Injury Risk Goal: Absence of Fall and Fall-Related Injury Outcome: Ongoing, progressing Problem: Nausea and Vomiting (Chemotherapy Effects) Goal: Fluid and Electrolyte Balance Outcome: Ongoing, progressing Problem: Neutropenia (Chemotherapy Effects) Goal: Absence of Infection Outcome: Ongoing, progressing Pt educated on safety measures and fall precautions. Pathways are clear and clutter free. Bed is in low and locked. Hourly rounding in progress. Pt denies any nausea at this time. N o signs of infection noted. lan of Paz Teixeira MSW - 05/20/2020 9:26 AM PDTCare Management Init ial Assessment Readmission Risk: Medium Status Prior to Admission or Illness Arrival From: admitted as an inpatient, home or self-care Lives With: child(margarita), dependent, significant other Living Arrangements: house Caregiver For: child(margarita) Caregiving Concerns: None - pt is independent Home Accessibility: no concerns, stairs to enter home Transportation Available: car, family or friend will provide Able to return to prior living: yes Care Management Concerns Last discharge date: 05/04/20 Readmission Within Last 30 Days: planned readmission Previous [facility]charg[facility] PCP: Myrna Mejia MD Contact Information Family Contact Information: Name: Marcos Morgan (Significant other) DC Needs Assessment Current Outpt/Agency/Support Groups: other (see comments) Community Agency Name: [facility] Anticipated Changes Related to Illness: none Concerns to be Addressed: no discharge needs identified Services Anticipated at Discharge: none, infusion therapy, outpatient Equipment Used at Home: none Equipment Needed after Discharge: none Pharmacy/Medication Needs: other (see comments)([facility] in [place]) Transportation Needs: family or friend will provide Initial Plan Anticipated Discharge Disposition: home Expected DC Date: yes Steps Taken Toward Discharge: Initial assessment completed. Next Steps: CM to follow for discharge planning. Notes: Pt resides with his significant other and children. At baseline, pt is independent - no car egiver, DME, home health, oxygen, or CPAP. Pt goes to [facility]. Pt will retu rn home with family at discharge. Electronically signed: TAMIKO FROST 05/20/2020 9:27 AM PDT lan of Stef - Cherelle Chi RN - 05/20/2020 6:32 AM PDTPatient direct admit for chemotherapy. Cycl e 3, day 1. Slept peacefully all night. No changes to assessment. 24 hour chart check complete. lan of Care - Cherelle Chi RN - 05/20/2020 4:14 AM PDT Problem: Adult Inpatient Plan of Care Goal: Optimal Comfort and Wellbeing Outcome: Ongoing, progressing Intervention: Provide Person-Centered Care Flowsheets (Taken 05/20/2020 0415) Trust Relationship/Rapport: care explained choices provided emotional support provided empathic listening provided thoughts/feelings acknowledged reassurance provided questions encouraged questions answered Problem: Fall Injury Risk Goal: Absence of Fall and Fall-Related Injury Outcome: Ongoing, progressing Intervention: Promote Injury-Free Environment Note: Patient independent in room. Gait is steady and balanced. Uses call light appropriate ly. Non skid socks on, lights adjusted, room free of clutter. documented in th is encounter Plan of [...] [place] | | | | | | [id number] | | | | | | | | +--------+ + + + + | 06/29/ | Office | Oncology | Wilton Jeff MD | | | 2019 | Visit | | [address] | | | | | | [place] | | | | | | [address] | | | | | | | | | | | | Marilou Mcmullen, | | | | | | SENIOR PRINCIPAL PROCESS ENGINEER [address] | [address] | | | | | | [place] [address] | | | | | | [phone] | | | | | | | | +--------+ + + + + | 06/29/ | Appointment | Infusion Therapy | Wilton Jeff MD | | | 2019 | | | [address] | | | | | | [place] | | | | | | [address] | | | | | | | | +--------+ + + + + | 07/14/ | Office | Otolaryngology | She Huang | | | 2019 | Visit | | DO Sophia Canela | | | | | | [address] | | | | | | [place] [address] | | | | | | [phone] | | | | | | | | +--------+ + + + + | 07/20/ | Appointment | Infusion Therapy | Wilton Jeff MD | | | 2019 | | | [address] | | | | | | [place] | | | | | | [address] | | | | | | | | +--------+ + + + + | 07/20/ | Office | Oncology | Wilton Jeff MD | | | 2019 | Visit | | [address] | | | | | | [place] | | | | | | [address] | | | | | | | | +--------+ + + + + | 07/20/ | Appointment | Infusion Therapy | Wilton Jeff MD | | | 2019 | | | [address] | | | | | | [place] | | | | | | [address] | | | | | | | | +--------+ + + + + | 08/17/ | Appointment | Infusion Therapy | Wilton Jeff MD | | | 2019 | | | [address] | | | | | | [place] | | | | | | [address] | | | | | | | | +--------+ + + + + | 08/17/ | Office | Oncology | Wilton Jeff MD | | | 2019 | Visit | | [address] | | | | | | [place] | | | | | | [address] | | | | | | | | +--------+ + + + + + +------+--------+ + + | Name | Type | Priori | Associated Diagnoses | Order Schedule | | | | ty | | | + +------+--------+ + + | CBC with | Lab | STAT | Diffuse large | Expected: | | Differential | | | B-cell lymphoma of | 05/29/2020, Expires: | | | | | lymph nodes of | 05/22/2021 | | | | | multiple regions | | | | | | (HCC) | | + +------+--------+ + + documented as of this encounter Procedures + +--------+ + + + | Procedure Name | Priori | Date/Time | Associated Diagnosis | Comments | | | ty | | | | + +--------+ + + + | CBC WITH | Routin | 05/24/2020 | Diffuse large | Results for this | | DIFFERENTIAL | e | 5:28 AM | 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 | | | | | multiple regions | | | | | | (HCC) | | + +--------+ + + + | CBC WITH | Routin | 05/23/2020 | Diffuse large | Results for this | | DIFFERENTIAL | e | 4:02 AM | 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 | | | | | multiple regions | | | | | | (HCC) | | + +--------+ + + + | COMPREHENSIVE | Routin | 05/23/2020 | Diffuse large | Results for this | | METABOLIC PANEL | e | 4:02 AM | 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 | | | | | multiple regions | | | | | | (HCC) | | + +--------+ + + + | CBC WITH | Routin | 05/22/2020 | Diffuse large | Results for this | | DIFFERENTIAL | e | 4:44 AM | 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 | | | | | multiple regions | | | | | | (HCC) | | + +--------+ + + + | COMPREHENSIVE | Routin | 05/22/2020 | Diffuse large | Results for this | | METABOLIC PANEL | e | 4:44 AM | 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 | | | | | multiple regions | | | | | | (HCC) | | + +--------+ + + + | CBC WITH | Routin | 05/21/2020 | Diffuse large | Results for this | | DIFFERENTIAL | e | 4:08 AM | 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 | | | | | multiple regions | | | | | | (HCC) | | + +--------+ + + + | MAGNESIUM | Routin | 05/21/2020 | | Results for this | | | e | 4:08 AM | | procedure are in the | | | | PDT | | results section. | + +--------+ + + + | COMPREHENSIVE | Routin | 05/21/2020 | Diffuse large | Results for this | | METABOLIC PANEL | e | 4:08 AM | 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 | | | | | multiple regions | | | | | | (HCC) | | + +--------+ + + + | CBC WITH | Routin | 05/20/2020 | | Results for this | | DIFFERENTIAL | e | 4:11 AM | | procedure are in the | | | | PDT | | results section. | + +--------+ + + + | PHOSPHORUS | Routin | 05/20/2020 | | Results for this | | | e | 4:11 AM | | procedure are in the | | | | PDT | | results section. | + +--------+ + + + | MAGNESIUM | Routin | 05/20/2020 | | Results for this | | | e | 4:11 AM | | procedure are in the | | | | PDT | | results section. | + +--------+ + + + | COMPREHENSIVE | Routin | 05/20/2020 | | Results for this | | METABOLIC PANEL | e | 4:11 AM | | procedure are in the | | | | PDT | | results section. | + +--------+ + + + documented in this encounter Results Comprehensive Metabolic Panel (05/24/2020 5:28 AM PDT) + + + + + + | Component | Value | Ref Range | Performed | Pathologist | | | | | At | Signature | + + + + + + | Na | 136 | 135 - 145 | [facility] | [...] + + + + | Glucose | 91 | 65 - 99 mg/dL | [facility] [...] | 8.5 | 8.5 - 10.5 | [facility] | | | | | mg/dL | LABORATORY | | + + + + + + | Protein, | 6.0 (L) | 6.3 - 8.2 g/dL | [facility] | | | Total | | | LABORATORY | | + + + + + + | Albumin | 3.1 (L) | 3.6 - 5.0 g/dL | [facility] | | | | | | LABORATORY | | + + + + + + | Globulin | 2.9 | 1.3 - 4.9 g/dL | [facility] | | | | | | LABORATORY | | + + + + + + | A/G Ratio | 1.1 | 1.0 - 2.4 | [facility] | | | | | | LABORATORY | | + + + + + + | BILIRUBIN, | 0.7 | 0.1 - 1.5 mg/dL | [facility] | | | TOTAL | | | LABORATORY | | + + + + + + | ALK PHOS | 66 | 35 - 115 U/L | [facility] | | | | | | LABORATORY | | + + + + + + | AST | 10 | 10 - 45 U/L | [facility] [...] | | | | | performed at [facility], [address] | | | | | [facility], | | | | | | [place] [address] | | | | + + + + + + + + | Specimen | + + | Blood | + + + + + + + | Performing | Address | City/State/Zipcode | Phone Number | | Organization | | | | + + + + + | [facility] | [address] | [place] [address] | [phone] | + + + + + CBC with Differential (05/24/2020 5:28 AM PDT) + + + + + + | Component | Value | Ref Range | Performed | Pathologist | | | | | At | Signature | + + + + + + | WBC | 6.64 | 3.80 - 11.00 | [facility] | | | | | K/uL | LABORATORY | | + + + + + + | Red Blood | 3.64 (L) | 4.20 - 5.70 | [facility] | | | Cells | | M/uL | LABORATORY | | + + + + + + | Hemoglobin | 10.8 (L) | 13.2 - 17.0 | [facility] | | | | | g/dL | LABORATORY | | + + + + + + | Hematocrit | 31.3 (L) | 39.0 - 50.0 % | [...] + + + + | MCHC | 34.5 | 32.0 - 35.5 | [facility] | | | | | g/dL | LABORATORY | | + + + + + + | RDW-SD | 54.9 (H) | 37 - 53 fl | [facility] | | | | | | LABORATORY | | + + + + + + | Platelet | 335 | 150 - 400 K/uL | [facility] [...] + + + + | % | 79.30 | % | [facility] | | | Neutrophils | | | LABORATORY | | + + + + + + | IMMATURE | 1.20 | % | [facility] | | | GRANULOCYTE | | | LABORATORY | | + + + + + + | % | 13.00 | % | [facility] | | | Lymphocytes | | | LABORATORY | | + + + + + + | Monocyte % | 6.50 | % | [facility] [...] + + + + | Neutrophils | 5.27 | 1.90 - 7.40 | [facility] | | | , Absolute | | K/uL | LABORATORY | | + + + + + + | IMMATURE | 0.08 (H)Comment: NOTE | 0.00 - 0.07 | [facility] | | | GRANS AB | NEW REFERENCE RANGE | K/uL | LABORATORY | | + + + + + + | Absolute | 0.86 (L) | 1.00 - 3.90 | [facility] | | | Lymphocytes | | K/uL | LABORATORY | | + + + + + + | Absolute | 0.43 | 0.00 - 0.80 | [facility] | | | Monocytes | | K/uL | LABORATORY | | + + + + + + | Eosinophils | 0.00 | 0.00 - 0.50 | [facility] | | | , Absolute | | K/uL | LABORATORY | | + + + + + + | Basophils, | 0.00Comment: Testing | 0.00 - 0.10 | [facility] | | | Absolute | performed at [facility], [address] | K/uL | LABORATORY | | | | [address], | | | | | | [place] [address] | | | | + + + + + + + + | Specimen | + + | Blood | + + + + + + + | Performing | Address | City/State/Zipcode | Phone Number | | Organization | | | | + + + + + | [facility] | [address] | [place] [address] | [phone] | + + + + + Comprehensive Metabolic Panel (05/23/2020 4:02 AM PDT) + + + + + [...] + + | Glucose | 93 | 65 - 99 mg/dL | [facility] | | | | | | LABORATORY | | + + + + + + | BUN | 21 | 8 - 25 mg/dL | [facility] [...] + + + | A/G Ratio | 2.5 (H) | 1.0 - 2.4 | [facility] | | | | | | LABORATORY | | + + + + + + | BILIRUBIN, | 0.5 | 0.1 - 1.5 mg/dL | [facility] | | | TOTAL | | | LABORATORY | | + + + + + + | ALK PHOS | 65 | 35 - 115 U/L | [facility] | | | | | | LABORATORY | | + + + + + + | AST | 10 | 10 - 45 U/L | [facility] | | | | | | LABORATORY | | + + + + + + | ALT | 15 | 10 - 65 U/L | [facility] [...] | | | | | performed at [facility] | | | | | | [facility];[place], [place] | | | | | | [address] | | | | + + + + + + + + | Specimen | + + | Blood | + + + + + + + | Performing | Address | City/State/Zipcode | Phone Number | | Organization | | | | + + + + + | [facility] | [address] | [place] [address] | [phone] | + + + + + CBC with Differential (05/23/2020 4:02 AM PDT) + + + + + + | Component | Value | Ref Range | Performed | Pathologist | | | | | At | Signature | + + + + + + | WBC | 13.71 (H) | 3.80 - 11.00 | [facility] | | | | | K/uL | LABORATORY | | + + + + + + | Red Blood | 3.59 (L) | 4.20 - 5.70 | [facility] [...] + + + + | MCV | 89.4 | 80.0 - 100.0 fl | [facility] | | | | | | LABORATORY | | + + + + + + | MCH | 29.5 | 27.0 - 34.0 pg | [facility] | | | | | | LABORATORY | | + + + + + + | MCHC | 33.0 | 32.0 - 35.5 | [facility] | | | | | g/dL | LABORATORY | | + + + + + + | RDW-SD | 58.7 (H) | 37 - 53 fl | [facility] | | | | | | LABORATORY | | + + + + + + | Platelet | 344 | 150 - 400 K/uL | [facility] [...] + + + + | % | 82.70 | % | [facility] | | | Neutrophils | | | LABORATORY | | + + + + + + | IMMATURE | 1.90 | % | [facility] | | | GRANULOCYTE | | | LABORATORY | | + + + + + + | % | 5.30 | % | [facility] | | | Lymphocytes | | | LABORATORY | | + + + + + + | Monocyte % | 10.00 | % | [facility] | | | [...] + + + + | Neutrophils | 11.34 (H) | 1.90 - 7.40 | [facility] | | | , Absolute | | K/uL | LABORATORY | | + + + + + + | IMMATURE | 0.26 (H)Comment: NOTE | 0.00 - 0.07 | [facility] | | | GRANS AB | NEW REFERENCE RANGE | K/uL | LABORATORY | | + + + + + + | Absolute | 0.73 (L) | 1.00 - 3.90 | [facility] | | | Lymphocytes | | K/uL | LABORATORY | | + + + + + + | Absolute | 1.37 (H) | 0.00 - 0.80 | [facility] [...] | | | Absolute | performed at [facility];[address] | [address] | LABORATORY | | | | [address];[place], [place] | | | | | | [address] | | | | + + + + + + + + | Specimen | + + | Blood | + + + + + + + | Performing | Address | City/State/Zipcode | Phone Number | | Organization | | | | + + + + + | [facility] | [address] | [place] [address] | [phone] | + + + + + Comprehensive Metabolic Panel (05/22/2020 4:44 AM PDT) + + + + + [...] + + + + | Glucose | 110 (H) | 65 - 99 mg/dL | [...] + + + + | Protein, | 6.4 | 6.3 - 8.2 g/dL | [facility] [...] + + + | ALK PHOS | 75 | 35 - 115 U/L | [facility] | | | | | | LABORATORY | | + + + + + + | AST | 10 | 10 - 45 U/L | [facility] | | | | | | LABORATORY | | + + + + + + | ALT | 26 | 10 - 65 U/L | [facility] | | | | | | LABORATORY | | + + + + + + | Estimated | >60Comment: GFR <60: | >60 | [facility] | | | GFR | CHRONIC [...] | | | | | performed at [facility], [address] | | | | | | [facility], | | | | | | [place] [address] | | | | + + + + + + + + | Specimen | + + | Blood | + + + + + + + | Performing | Address | City/State/Zipcode | Phone Number | | Organization | | | | + + + + + | [facility] | [address] | [place] [address] | [phone] | + + + + + CBC with Differential (05/22/2020 4:44 AM PDT) + + + + + + | Component | Value | Ref Range | Performed | Pathologist | | | | | At | Signature | + + + + + + | WBC | 20.47 (H) | 3.80 - 11.00 | [facility] | | | | | K/uL | LABORATORY | | + + + + + + | Red Blood | 3.66 (L) | 4.20 - 5.70 | [facility] | | | Cells | | M/uL | LABORATORY | | + + + + + + | Hemoglobin | 10.8 (L) | 13.2 - 17.0 | [facility] | | | | | g/dL | LABORATORY | | + + + + + + | Hematocrit | 32.2 (L) | 39.0 - 50.0 % | [facility] | | | | | | LABORATORY | | + + + + + + | MCV | 88.0 | 80.0 - 100.0 fl | [facility] | | | | | | LABORATORY | | + + + + + + | MCH | 29.5 | 27.0 - 34.0 pg | [facility] | | | | | | LABORATORY | | + + + + + + | MCHC | 33.5 | 32.0 - 35.5 | [facility] | | | | | g/dL | LABORATORY | | + + + + + + | RDW-SD | 57.8 (H) | 37 - 53 fl | [facility] | | | | | | LABORATORY | | + + + + + + | Platelet | 332 | 150 - 400 K/uL | [facility] [...] + + + + | % | 88.90 | % | [facility] | | | Neutrophils | | | LABORATORY | | + + + + + + | IMMATURE | 2.30 | % | [facility] | | | GRANULOCYTE | | | LABORATORY | | + + + + + + | % | 3.60 | % | [facility] | | | Lymphocytes | | | LABORATORY | | + + + + + + | Monocyte % | 5.10 | % | [facility] | | | [...] + + + + | Neutrophils | 18.20 (H) | 1.90 - 7.40 | [facility] | | | , Absolute | | K/uL | LABORATORY | | + + + + + + | IMMATURE | 0.47 (H)Comment: NOTE | 0.00 - 0.07 | [facility] | | | GRANS AB | NEW REFERENCE RANGE | K/uL | LABORATORY | | + + + + + + | Absolute | 0.73 (L) | 1.00 - 3.90 | [facility] | | | Lymphocytes | | K/uL | LABORATORY | | + + + + + + | Absolute | 1.04 (H) | 0.00 - 0.80 | [facility] | | | Monocytes | | K/uL | LABORATORY | | + + + + + + | Eosinophils | 0.00 | 0.00 - 0.50 | [facility] | | | , Absolute | | K/uL | LABORATORY | | + + + + + + | Basophils, | 0.03Comment: Testing | 0.00 - 0.10 | [facility] | | | Absolute | performed at [facility], [address] | K/u[address] | LABORATORY | | | | [address], | | | | | | [place] [address] | | | | + + + + + + + + | Specimen | + + | Blood | + + + + + + + | Performing | Address | City/State/Zipcode | Phone Number | | Organization | | | | + + + + + | [facility] | [address] | [place] [address] | [phone] | + + + + + Comprehensive Metabolic Panel (05/21/2020 4:08 AM PDT) + + + + + [...] + + + + | Glucose | 116 (H) | 65 - 99 mg/dL | [facility] | | | | | | LABORATORY | | + + + + + + | BUN | 15 | 8 - 25 mg/dL | [facility] [...] + + | Calcium | 9.2 | 8.5 - 10.5 | [facility] | | | | | mg/dL | LABORATORY | | + + + + + + | Protein, | 6.0 (L) | 6.3 - 8.2 g/dL | [facility] | | | Total | | | LABORATORY | | + + + + + + | Albumin | 4.4 | 3.6 - 5.0 g/dL | [facility] | | | | | | LABORATORY | | + + + + + + | Globulin | 1.6 | 1.3 - 4.9 g/dL | [facility] | | | | | | LABORATORY | | + + + + + + | A/G Ratio | 2.8 (H) | 1.0 - 2.4 | [facility] | | | | | | LABORATORY | | + + + + + + | BILIRUBIN, | 0.4 | 0.1 - 1.5 mg/dL | [facility] | | | TOTAL | | | LABORATORY | | + + + + + + | ALK PHOS | 82 | 35 - 115 U/L | [facility] | | | | | | LABORATORY | | + + + + + + | AST | 13 | 10 - 45 U/L | [facility] | | | | | | LABORATORY | | + + + + + + | ALT | 19 | 10 - 65 U/L | [facility] [...] | | | | | performed at [facility];[address] | | | | | | [facility];[place], [place] | | | | | | [address] | | | | + + + + + + + + | Specimen | + + | Blood | + + + + + + + | Performing | Address | City/State/Zipcode | Phone Number | | Organization | | | | + + + + + | [facility] | [address] | [place] [address] | [phone] | + + + + + CBC with Differential (05/21/2020 4:08 AM PDT) + + + + + + | Component | Value | Ref Range | Performed | Pathologist | | | | | At | Signature | + + + + + + | WBC | 21.98 (H) | 3.80 - 11.00 | [facility] | | | | | K/uL | LABORATORY | | + + + + + + | Red Blood | 3.76 (L) | 4.20 - 5.70 | [facility] | | | Cells | | M/uL | LABORATORY | | + + + + + + | Hemoglobin | 11.0 (L) | 13.2 - 17.0 | [facility] | | | | | g/dL | LABORATORY | | + + + + + + | Hematocrit | 33.6 (L) | 39.0 - 50.0 % | [facility] | | | | | | LABORATORY | | + + + + + + | MCV | 89.4 | 80.0 - 100.0 fl | [facility] | | | | | | LABORATORY | | + + + + + + | MCH | 29.3 | 27.0 - 34.0 pg | [facility] | | | | | | LABORATORY | | + + + + + + | MCHC | 32.7 | 32.0 - 35.5 | [facility] | | | | | g/dL | LABORATORY | | + + + + + + | RDW-SD | 58.6 (H) | 37 - 53 fl | [facility] | | | | | | LABORATORY | | + + + + + + | Platelet | 315 | 150 - 400 K/uL | [facility] [...] % Segmented | 85 | % | [facility] | | | | | | LABORATORY | | | Neutrophils | | | | | + + + + + + | % Bands | 3 | % | [facility] | | | | | | LABORATORY | | + + + + + + | % | 1 | % | [facility] | | | Metamyelocy | | | LABORATORY | | | tracy | | | | | + + + + + + | % | 7 | % | [facility] | | | Lymphocytes | | | LABORATORY | | + + + + + + | % Monocytes | 4 | % | [facility] | | | | | | LABORATORY | | + + + + + + | Neutrophils | 18.68 (H) | 1.90 - 7.40 | [facility] | | | , Absolute | | K/uL | LABORATORY | | + + + + + + | Absolute | 0.66 (H) | 0.00 - 0.20 | [facility] [...] + + + + | Absolute | 1.54 | 1.00 - 3.90 | [facility] | | | Lymphocytes | | K/uL | LABORATORY | | + + + + + + | Absolute | 0.88 (H) | 0.00 - 0.80 | [facility] [...] at | | | | | | [facility];[address];[place] [address] | | | | + + + + + + + + | Specimen | + + | Blood | + + + + + + + | Performing | Address | City/State/Zipcode | Phone Number | | Organization | | | | + + + + + | [facility] | [address] | [place] [address] | [phone] | + + + + + Magnesium (05/21/2020 4:08 AM PDT) + + + + + + | Component | Value | Ref Range | Performed | Pathologist | | | | | At | Signature | + + + + + + | Magnesium | 1.9Comment: Testing | 1.7 - 2.4 mg/dL | [facility] | | | | performed at [facility];[address] | | LABORATORY | | | | [facility];[place], [place] | | | | | | [address] | | | | + + + + + + + + | Specimen | + + | Blood | + + + + + + + | Performing | Address | City/State/Zipcode | Phone Number | | Organization | | | | + + + + + | [facility] | [address] | [place] [address] | [phone] | + + + + + Phosphorus (05/20/2020 4:11 AM PDT) + + + + + + | Component | Value | Ref Range | Performed | Pathologist | | | | | At | Signature | + + + + + + | Phosphorus | 5.0 (H)Comment: Testing | 2.3 - 4.8 mg/dL | [facility] | | | | performed at [facility];[address] | | LABORATORY | | | | [address];[place], [place] | | | | | | [address] | | | | + + + + + + + + | Specimen | + + | Blood | + + + + + + + | Performing | Address | City/State/Zipcode | Phone Number | | Organization | | | | + + + + + | [facility] | [address] [facility] [address] | [place] [address] | [phone] | + + + + + Magnesium (05/20/2020 4:11 AM PDT) + + + + + + | Component | Value | Ref Range | Performed | Pathologist | | | | | At | Signature | + + + + + + | Magnesium | 1.9Comment: Testing | 1.7 - 2.4 mg/dL | [facility] | | | | performed at [facility];[address] | | LABORATORY | | | | [address];[place], [place] | | | | | | [address] | | | | + + + + + + + + | Specimen | + + | Blood | + + + + + + + | Performing | Address | City/State/Zipcode | Phone Number | | Organization | | | | + + + + + | [facility] | [address] | [place] [address] | [phone] | + + + + + Comprehensive Metabolic Panel (05/20/2020 4:11 AM PDT) + + + + + + | Component | Value | Ref Range | Performed | Pathologist | | | | | At | Signature | + + + + + + | Na | 142 | 135 - 145 | [facility] | [...] 13 | 5 - 20 mmol/L | [facility] [...] + + + + | Creatinine | 0.87 | 0.70 - 1.30 | [facility] | [...] + + + + | Globulin | 1.7 | 1.3 - 4.9 g/dL | [facility] | | | | | | LABORATORY | | + + + + + + | A/G Ratio | 2.4 | 1.0 - 2.4 | [facility] | | | | | | LABORATORY | | + + + + + + | BILIRUBIN, | 0.3 | 0.1 - 1.5 mg/dL | [facility] | | | TOTAL | | | LABORATORY | | + + + + + + | ALK PHOS | 78 | 35 - 115 U/L | [facility] | | | | | | LABORATORY | | + + + + + + | AST | 16 | 10 - 45 U/L | [facility] | | | | | | LABORATORY | | + + + + + + | ALT | 19 | 10 - 65 U/L | [facility] [...] | | | | | performed at [facility];[address] | | | | | | [address] [facility];[place], [place] | | | | | | [address] | | | | + + + + + + + + | Specimen | + + | Blood | + + + + + + + | Performing | Address | City/State/Zipcode | Phone Number | | Organization | | | | + + + + + | [facility] | [address] | [place] [address] | [phone] | + + + + + CBC with Differential (05/20/2020 4:11 AM PDT) + + + + + + | Component | Value | Ref Range | Performed | Pathologist | | | | | At | Signature | + + + + + + | WBC | 14.77 (H) | 3.80 - 11.00 | [facility] | | | | | K/uL | LABORATORY | | + + + + + + | Red Blood | 3.54 (L) | 4.20 - 5.70 | [facility] | | | Cells | | M/uL | LABORATORY | | + + + + + + | Hemoglobin | 10.3 (L) | 13.2 - 17.0 | [facility] | | | | | g/dL | LABORATORY | | + + + + + + | Hematocrit | 32.8 (L) | 39.0 - 50.0 % | [facility] | | | | | | LABORATORY | | + + + + + + | MCV | 92.7 | 80.0 - 100.0 fl | [facility] | | | | | | LABORATORY | | + + + + + + | MCH | 29.1 | 27.0 - 34.0 pg | [facility] | | | | | | LABORATORY | | + + + + + + | MCHC | 31.4 (L) | 32.0 - 35.5 | [facility] | | | | | g/dL | LABORATORY | | + + + + + + | RDW-SD | 64.9 (H) | 37 - 53 fl | [facility] | | | | | | LABORATORY | | + + + + + + | Platelet | 258 | 150 - 400 K/uL | [facility] [...] + + + | % Segmented | 70 | % | [facility] | | | | | | LABORATORY | | | Neutrophils | | | | | + + + + + + | % Bands | 7 | % | [facility] | | | | | | LABORATORY | | + + + + + + | % | 2 | % | [facility] | | | Metamyelocy | | | LABORATORY | | | tracy | | | | | + + + + + + | % | 8 | % | [facility] | | | Lymphocytes | | | LABORATORY | | + + + + + + | % Monocytes | 10 | % | [facility] | | | | | | LABORATORY | | + + + + + + | Eosinophils | 3 | % | [facility] | | | % | | | LABORATORY | | + + + + + + | Neutrophils | 10.34 (H) | 1.90 - 7.40 | [facility] | | | , Absolute | | K/uL | LABORATORY | | + + + + + + | Absolute | 1.03 (H) | 0.00 - 0.20 | [facility] | | | Band | | K/uL | LABORATORY | | | Neutrophils | | | | | + + + + + + | Absolute | 0.30 (H) | 0.00 K/uL | [facility] | | | Metamyelocy | | | LABORATORY | | | tracy | | | | | + + + + + + | Absolute | 1.18 | 1.00 - 3.90 | [facility] | | | Lymphocytes | | K/uL | LABORATORY | | + + + + + + | Absolute | 1.48 (H) | 0.00 - 0.80 | [facility] | | | Monocytes | | K/uL | LABORATORY | | + + + + + + | Eosinophils | 0.44 | 0.00 - 0.50 | [facility] | | | , Absolute | | K/uL | LABORATORY | | + + + + + + | RBC | 1+Comment: ANISONORMAL | | [facility] | | | Morphology | PLT MORPHTesting | | LABORATORY | | | | performed at [facility];[id number] | | | | | | [address];[place] | | | | | | [id number] | | | | | | | | | | + + + + + + + + | Specimen | + + | Blood | + + + + + + + | Performing | Address | City/State/Zipcode | Phone Number | | Organization | | | | + + + + + | [facility] | [address] | [place] [address] | [phone] | + + + + + documented in this encounter Visit Diagnoses + + | Diagnosis | + + | Diffuse large B-cell lymphoma of lymph nodes of multiple regions (HCC) - Primary | + + | Admission for antineoplastic chemotherapy Encounter for antineoplastic chemotherapy | + + | Dental caries Unspecified dental caries | + + | Cervical lymphadenopathy Enlargement [...] acyclovir (ZOVIRAX) capsule 800 | Given | 05/24/20 | 800 mg | | | | mg 800 mg, Oral, 2 TIMES DAILY, | | 20 8:00 | | | | | First dose on Mon05/19/20 at | | AM PDT | | | | | 2100, Indications: HERPES ZOSTER | | | | | | | PREVENTION IN IMMUNOCOMPROMISED | | | | | | + +--------+ +--------+------+------+ +-------+ +--------+---+---+ | Given | 05/23/20 | 800 mg | | | | | 20 8:32 | | | | | | PM PDT | | | | +-------+ +--------+---+---+ | Given | 05/23/20 | 800 mg | | | | | 20 8:39 | | | | | | AM PDT | | | | +-------+ +--------+---+---+ + +---+ | | | + +---+ | albuterol 90 mcg/puff inhaler 2 | | | puff 2 puff, Inhalation, ONCE | | | PRN, Bronchospasm or hypoxemia, | | | Starting 05/24/20 at 0631, | | | Carter well. May repeat x 1., | | + +---+ | | | + +---+ + +-------+ + +---+---+ | amoxicillin-clavulanate | Given | 05/24/20 | 1 tablet | | | | (AUGMENTIN) 875-125 mg per tablet | | 20 8:00 | | | | | 1 tablet 1 tablet, Oral, 2 | | AM PDT | | | | | TIMES DAILY, First dose on Mon | | | | | | | 05/19/20 at 2100, Indications: | | | | | | | Dental Disease | | | | | | + +-------+ + +---+---+ +-------+ + +---+---+ | Given | 05/23/20 | 1 tablet | | | | | 20 8:32 | | | | | | PM PDT | | | | +-------+ + +---+---+ | Given | 05/23/20 | 1 tablet | | | | | 20 8:38 | | | | | | AM PDT | | | | +-------+ + +---+---+ +---+---+ | | | +---+---+ + +---------+ + +-------+---+ | cyclophosphamide (CYTOXAN) | New Bag | 05/24/20 | 2,500 mg | 750 | | | 2,500 mg in sodium chloride 0.9% | | 20 5:07 | | mL/hr | | | 250 mL infusion 2,500 mg | | PM PDT | | | | | (rounded from 2,408.4 mg = 1,080 | | | | | | | mg/m2 | | | | | | | 2.23 m2 Treatment plan recorded | | | | | | | BSA), Intravenous, Administer | | | | | | | over 30 Minutes, ONCE, Sun | | | | | | | 05/24/20 at 1745, For 1 dose, | | | | [...] may repeat x1, | | | Starting 05/24/20 at 0631, | | | For 2 doses | | + +---+ | | | + +---+ + +-------+ +--------+---+---+ | | Given | 05/22/20 | 10 mLs | | | | [id number]-tskpizwnupaixh-kt | | 20 8:37 | | | | | statin (DUKES MOUTHWASH) | | AM PDT | | | | | suspension 10 mL 10 mL, Swish & | | | | | | | Spit, 4 TIMES DAILY, First dose | | | | | | | on Mon05/19/20 at 2100 | | | | | | + +-------+ +--------+---+---+ +-------+ +--------+---+---+ | Given | 05/21/20 | 10 mLs | | | | | 20 8:11 | | | | | | PM PDT | | | | +-------+ +--------+---+---+ | Given | 05/21/20 | 10 mLs | | | | | 20 8:43 | | | | | | AM PDT | | | | +-------+ +--------+---+---+ +---+---+ | | | +---+---+ + + + +---+ +---+ | DOXOrubicin (ADRIAMYCIN) 32 mg, | Rate/Dos | 05/21/20 | | 26 mL/hr | | | etoposide (VEPESID) 160 mg, | e | 20 7:16 | | | | | vinCRIStine (ONCOVIN) 0.89 mg in | Verify-D | AM PDT | | | | | sodium chloride 0.9% 500 mL | ual Sign | | | | | | infusion 32 mg (rounded from | | | | | | | 32.112 mg = 14.4 mg/m2/day | | | | | | | 2.23 m2 Treatment plan recorded | | | | | | | BSA), Intravenous, Administer | | | | | | | over 24 Hours, EVERY 24 HOURS | | | | | | | INTERVAL, First dose (after last | | | | | | | modification) on Mon05/20/20 at | | | | | | | 1300, For 1 dose, Chemotherapy: | | | | | | | Use appropriate handling | | | | | | | precautions. Vesicant. Use | | | | | | | non-DEHP tubing for | | | | | | | administration. Protect from | | | | | | | light., | | | | | | + + + +---+ +---+ + + +-------+-------+---+ | Rate/Dose Verify-Dual Sign | 05/20/20 | | 22.5 | | | | 20 7:05 | | mL/hr | | | | PM PDT | | | | + + +-------+-------+---+ | New Bag | 05/20/20 | 32 mg | 21.9 | | | | 20 1:19 | | mL/hr | | | | PM PDT | | | | + + +-------+-------+---+ +---+---+ | | | +---+---+ + + + +---+ +---+ | DOXOrubicin (ADRIAMYCIN) 32 mg, | Rate/Dos | 05/22/20 | | 25 mL/hr | | | etoposide (VEPESID) 160 mg, | e | 20 7:09 | | | | | vinCRIStine (ONCOVIN) 0.89 mg in | Verify-D | AM PDT | | | | | sodium chloride 0.9% 500 mL | ual Sign | | | | | | infusion 32 mg (rounded from | | | | | | | 32.112 mg = 14.4 mg/m2/day | | | | | | | 2.23 m2 Treatment plan recorded | | | | | | | BSA), Intravenous, Administer | | | | | | | over 24 Hours, EVERY 24 HOURS | | | | | | | INTERVAL, First dose on Fadia | | | | | | | 05/21/20 at 1330, For 1 dose, | | [...] + + + +---+ +---+ + + +---+ +---+ | Restarted | 05/22/20 | | 25 mL/hr | | | | 20 4:45 | | | | | | AM PDT | | | | + + +---+ +---+ | Rate/Dose Verify-Dual Sign | 05/21/20 | | 23.8 | | | | 20 7:31 | | mL/hr | | | | PM PDT | | | | + + +---+ +---+ +---+---+ | | | +---+---+ + + + +---+ +---+ | DOXOrubicin (ADRIAMYCIN) 32 mg, | Rate/Dos | 05/23/20 | | 25 mL/hr | | | etoposide (VEPESID) 160 mg, | e | 20 7:22 | | | | | vinCRIStine (ONCOVIN) 0.89 mg in | Verify-D | AM PDT | | | | | sodium chloride 0.9% 500 mL | ual Sign | | | | | | infusion 32 mg (rounded from | | | | | | | 32.112 mg = 14.4 mg/m2/day | | | | | | | 2.23 m2 Treatment plan recorded | | | | | | | BSA), Intravenous, Administer | | | | | | | over 24 Hours, EVERY 24 HOURS | | | | | | | INTERVAL, First dose on Mon | | | | | | | 05/22/20 at 1400, For 1 dose, | | [...] + + + +---+ +---+ + + +---+ +---+ | Restarted | 05/23/20 | | 28.7 | | | | 20 3:51 | | mL/hr | | | | AM PDT | | | | + + +---+ +---+ | Rate/Dose Verify-Dual Sign | 05/22/20 | | 25 mL/hr | | | | 20 7:02 | | | | | | PM PDT | | | | + + +---+ +---+ +---+---+ | | | +---+---+ + + + +---+-------+---+ | DOXOrubicin (ADRIAMYCIN) 32 mg, | Restarte | 05/24/20 | | 25.6 | | | etoposide (VEPESID) 160 mg, | d | 20 2:35 | | mL/hr | | | vinCRIStine (ONCOVIN) 0.89 mg in | | AM PDT | | | | | sodium chloride 0.9% 500 mL | | | | | | | infusion 32 mg (rounded from | | | | | | | 32.112 mg = 14.4 mg/m2/day | | | | | | | 2.23 m2 Treatment plan recorded | | | | | | | BSA), Intravenous, Administer | | | | | | | over 24 Hours, EVERY 24 HOURS | | | | | | | INTERVAL, First dose on Sat | | | | | | | 05/23/20 at 1430, For 1 dose, | | [...] | | | + + + +---+-------+---+ +---------+ +-------+-------+---+ | New Bag | 05/23/20 | 32 mg | 21.9 | | | | 20 2:50 | | mL/hr | | | | PM PDT | | | | +---------+ +-------+-------+---+ +---+---+ | | | +---+---+ + +-------+ +-------+---+ + | enoxaparin (LOVENOX) 40 mg/0.4 | Given | 05/21/20 | 40 mg | | Abdomen- | | mL injection 40 mg 40 mg, | | 20 8:10 | | | RLQ | | Subcutaneous, EVERY 24 HOURS | | PM PDT | | | | | INTERVAL, First dose on Mon | | | | | | | 05/19/20 at 2030 | | | | | | + +-------+ +-------+---+ + + +---+ | | | + +---+ | EPINEPHrine 1 mg/mL injection | | | 0.3 mg 0.3 mg, Intramuscular, | | | EVERY 5 MIN PRN, Anaphylaxis, | | | Starting 05/24/20 at 0631, For | | | 3 doses, Administer [...] reaction or | | | anaphylaxis., Starting Sun | | | 05/24/20 at 0631, Dilute 2 mL of | | | [...] 150 mg in | New Bag | 05/20/20 | 150 mg | 750 | | | sodium chloride 0.9% 250 mL IVPB | | 20 12:36 | | mL/hr | | | 150 mg, Intravenous, Administer | | PM PDT | | | | | over 20 Minutes, ONCE, Wed | | | | | | | 05/20/20 at 1200, For 1 dose, Do | | | | | | | not shake bag., | | | | | | + +---------+ +--------+-------+---+ +---+---+ | | | +---+---+ + +-------+ +-------+---+---+ | heparin 100 units/mL flush | Given | 05/24/20 | 500 | | | | injection 500 Units 500 Units (5 | | 20 6:23 | Units | | | | mL), Intracatheter, PRN, Line | | PM PDT | | | | | Care, Starting 05/24/20 at | | | | | | | 0631 | | | | | | + +-------+ +-------+---+---+ +---+---+ | | | +---+---+ + +-------+ +--------+---+---+ | LORazepam (ATIVAN) 2 mg/mL | Given | 05/24/20 | 0.5 mg | | | | injection 0.5 mg 0.5 mg, | | 20 6:03 | | | | | Intravenous, EVERY 2 HOURS PRN, | | PM PDT | | | | | nausea, Starting 05/22/20 at | | | | | | | 1000 | | | | | | + +-------+ +--------+---+---+ +-------+ +--------+---+---+ | Given | 05/24/20 | 0.5 mg | | | | | 20 6:54 | | | | | | AM PDT | | | | +-------+ +--------+---+---+ | Given | 05/24/20 | 0.5 mg | | | | | 20 1:38 | | | | | | AM PDT | | | | +-------+ +--------+---+---+ +---+---+ | | | +---+---+ + +-------+ +------+---+---+ | LORazepam (ATIVAN) 2 mg/mL | Given | 05/22/20 | 1 mg | | | | injection 1 mg 1 mg, | | 20 7:34 | | | | | Intravenous, EVERY 4 HOURS PRN, | | AM PDT | | | | | nausea, Starting [facility] 05/21/20 at | | | | | | | 0923 | | | | | | + +-------+ +------+---+---+ +-------+ +------+---+---+ | Given | 05/21/20 | 1 mg | | | | | 20 7:01 | | | | | | PM PDT | | | | +-------+ +------+---+---+ | Given | 05/21/20 | 1 mg | | | | | 20 9:54 | | | | | | AM PDT | | | | +-------+ +------+---+---+ + +---+ | | | + +---+ | methylPREDNISolone sodium | | | succinate (solu-MEDROL) 62.5 | | | mg/mL injection 125 mg 125 mg, | | | Intravenous, ONCE PRN, Infusion | | | reaction, Starting 05/24/20 at | | | 0631, For 1 dose, Mix with 2 mL | | | provided diluent to make 62.5 | | | mg/mL., | | + +---+ | | | + +---+ + +-------+ +-------+---+---+ | metoclopramide (REGLAN) 5 mg/mL | Given | 05/21/20 | 10 mg | | | | injection 10 mg 10 mg, | | 20 7:30 | | | | | Intravenous, ONCE, Fadia 05/21/20 at | | AM PDT | | | | | 0730, For 1 dose, Protect from | | | | | | | light., | | | | | | + +-------+ +-------+---+---+ +---+---+ | | | +---+---+ + +-------+ +-------+---+---+ | metoclopramide (REGLAN) 5 mg/mL | Given | 05/22/20 | 10 mg | | | | injection 10 mg 10 mg, | | 20 12:13 | | | | | Intravenous, EVERY 6 HOURS PRN, | | AM PDT | | | | | Nausea, Vomiting, Starting Fadia | | | | | | | 05/21/20 at 1020, Protect from | | | | | | | light., | | | | | | + +-------+ +-------+---+---+ +---+---+ | | | +---+---+ + +-------+ +------+---+---+ | metoclopramide (REGLAN) 5 mg/mL | Given | 05/24/20 | 5 mg | | | | injection 5 mg 5 mg, | | 20 6:03 | | | | | Intravenous, EVERY 6 HOURS, First | | PM PDT | | | | | dose on Mon05/22/20 at 1200, | | | | | | | Protect from light., | | | | | | + +-------+ +------+---+---+ +-------+ +------+---+---+ | Given | 05/24/20 | 5 mg | | | | | 20 12:04 | | | | | | PM PDT | | | | +-------+ +------+---+---+ | Given | 05/24/20 | 5 mg | | | | | 20 6:54 | | | | | | AM PDT | | | | +-------+ +------+---+---+ +---+---+ | | | +---+---+ + +-------+ +------+---+---+ | ondansetron (ZOFRAN ODT) | Given | 05/21/20 | 4 mg | | | | disintegrating tablet 4 mg 4 mg, | | 20 4:52 | | | | | Oral, EVERY 6 HOURS PRN, Nausea, | | AM PDT | | | | | Vomiting, Starting 05/19/20 | | | | | | | at 1914, First line agent, | | | | | | + +-------+ +------+---+---+ +---+---+ | | | +---+---+ + +---------+ +-------+-------+---+ | ondansetron 16 mg, | New Bag | 05/21/20 | 16 mg | 240 | | | dexamethasone (DECADRON) 20 mg in | | 20 1:18 | | mL/hr | | | sodium chloride 0.9% 50 mL IVPB | | PM PDT | | | | | 16 mg, Intravenous, Administer | | | | | | | over 15 Minutes, ONCE, [facility] | | | | | | | 05/21/20 at 1300, For 1 dose, | | | | | | | Administer 30 minutes prior to | | | | | | | chemotherapy., | | | | | | + +---------+ +-------+-------+---+ +---+---+ | | | +---+---+ + +---------+ +------+-------+---+ | ondansetron 8 mg, dexamethasone | New Bag | 05/22/20 | 8 mg | 220 | | | (DECADRON) 10 mg in sodium | | 20 2:41 | | mL/hr | | | chloride 0.9% 50 mL IVPB 8 mg, | | PM PDT | | | | | Intravenous, Administer over 15 | | | | | | | Minutes, ONCE, 05/22/20 at | | | | | | | 1330, For 1 dose, Administer 30 | | | | | | | minutes prior to chemotherapy., | | | | | | + +---------+ +------+-------+---+ +---+---+ | | | +---+---+ + +---------+ +------+-------+---+ | ondansetron 8 mg, dexamethasone | New Bag | 05/23/20 | 8 mg | 220 | | | (DECADRON) 10 mg in sodium | | 20 1:56 | | mL/hr | | | chloride 0.9% 50 mL IVPB 8 mg, | | PM PDT | | | | | Intravenous, Administer over 15 | | | | | | | Minutes, ONCE, 05/23/20 at | | | | | | | 1400, For 1 dose, Administer 30 | | | | | | | minutes prior to chemotherapy., | | | | | | + +---------+ +------+-------+---+ +---+---+ | | | +---+---+ + +---------+ +---------+--------+---+ | palonosetron (ALOXI) 0.25 mg, | New Bag | 05/20/20 | 0.25 mg | 424.8 | | | dexamethasone (DECADRON) 12 mg in | | 20 1:07 | | mL/hr | | | sodium chloride 0.9% 100 mL IVPB | | PM PDT | | | | | 0.25 mg, Intravenous, | | | | | | | Administer over 15 Minutes, ONCE, | | | | | | | 05/20/20 at 1230, For 1 dose, | | | | | | | Administer 30 minutes prior to | | | | | | | chemotherapy., | | | | | | + +---------+ +---------+--------+---+ +---+---+ | | | +---+---+ + +---------+ +---------+--------+---+ | palonosetron (ALOXI) 0.25 mg, | New Bag | 05/24/20 | 0.25 mg | 424.8 | | | dexamethasone (DECADRON) 12 mg in | | 20 4:39 | | mL/hr | | | sodium chloride 0.9% 100 mL IVPB | | PM PDT | | | | | 0.25 mg, Intravenous, | | | | | | | Administer over 15 Minutes, ONCE, | | | | | | | 05/24/20 at 1715, For 1 dose, | | | | | | | Administer 30 minutes prior to | | | | | | | chemotherapy., | | | | | | + +---------+ +---------+--------+---+ +---+---+ | | | +---+---+ + +-------+ +--------+---+---+ | predniSONE (DELTASONE) tablet | Given | 05/24/20 | 120 mg | | | | 120 mg 120 mg, Oral, DAILY WITH | | 20 8:00 | | | | | BREAKFAST, First dose on Mon | | AM PDT | | | | | 05/20/20 at 1000, For 5 days | | | | | | + +-------+ +--------+---+---+ +-------+ +--------+---+---+ | Given | 05/23/20 | 120 mg | | | | | 20 8:38 | | | | | | AM PDT | | | | +-------+ +--------+---+---+ | Given | 05/22/20 | 120 mg | | | | | 20 8:37 | | | | | | AM PDT | | | | +-------+ +--------+---+---+ +---+---+ | | | +---+---+ + +-------+ +-------+---+---+ | prochlorperazine tablet 10 mg | Given | 05/21/20 | 10 mg | | | | 10 mg, Oral, EVERY 6 HOURS PRN, | | 20 6:08 | | | | | Nausea/Vomiting, Starting Tue | | PM PDT | | | | | 05/19/20 at 1914 | | | | | | + +-------+ +-------+---+---+ + +---+ | | | + +---+ | sodium chloride 0.9% (NS) bolus | | | 250 mL 250 mL, Intravenous, | | | PRN, Flush before and after IV | | | medication(s) and as needed with | | | NS, Starting 05/24/20 at 0631 | | + +---+ | | | + +---+ + +---------+ +---------+-------+---+ | sodium chloride 0.9% (NS) bolus | New Bag | 05/24/20 | 500 mLs | 500 | | | 500 mL 500 mL, Intravenous, | | 20 5:08 | | mL/hr | | | Administer over 1 Hours, ONCE, | | PM PDT | | | | | 05/24/20 at 1815, For 1 dose, | | | | | | | Administer 500 mL NS after | | | | | | | cyclophosphamide administration., | | | | | | | | | | | | | + +---------+ +---------+-------+---+ +---+---+ | | | +---+---+ + +---------+ +---------+-------+---+ | sodium chloride 0.9% (NS) bolus | New Bag | 05/24/20 | 500 mLs | 500 | | | 500 mL 500 mL, Intravenous, | | 20 3:38 | | mL/hr | | | Administer over 1 Hours, ONCE, | | PM PDT | | | | | 05/24/20 at 1645, For 1 dose, | | | | [...] reacton or anaphylaxis., Starting | | | 05/24/20 at 0631, Run wide | | | open to gravity., | | + +---+ | | | + +---+ + +---------+ +---+-------+---+ | sodium chloride 0.9% (NS) | New Bag | 05/24/20 | | 100 | | | infusion at 100 mL/hr, | | 20 11:08 | | mL/hr | | | Intravenous, CONTINUOUS, Starting | | AM PDT | | | | | 05/19/20 at 1930 | | | | | | + +---------+ +---+-------+---+ +---------+ +---+-------+---+ | New Bag | 05/24/20 | | 100 | | | | 20 12:20 | | mL/hr | | | | AM PDT | | | | +---------+ +---+-------+---+ | New Bag | 05/23/20 | | 100 | | | | 20 2:50 | | mL/hr | | | | PM PDT | | | | +---------+ +---+-------+---+ + +---+ | | | + +---+ | sodium chloride 0.9% flush 10 | | | mL 10 mL, Intracatheter, PRN, | | | Line Care, Starting 05/24/20 | | | at 0631 | | + +---+ | | | + +---+ documented in this encounter
--- OUTSIDE RECORDS SUMMARY | ~2020-06-23 | XMS | Encounter Summary ---
Demographics + + + | Address | [address] | | [place] [address] | + + + | Home Phone | | + + + | Preferred Language | Unknown | + + + | Marital Status | Single | + + + | Scientology Affiliation | Unknown | + + + [...] Team Providers + +------+ + | Care Porcelain Mixer Name | Role | Phone | + [...] + + | 05/18/ | Hospital | [facility] | Wilton Jfef MD | Diffuse large B-cell | | 2019 | Encounter | INFUSION SUPPORT | [address] | lymphoma of lymph | | | | SERVICES [address] [place] | nodes of multiple | | | | [address] [place] | [address] | regions (HCC) | | | | [address] [place] | | (Primary Dx) | | | | [address] | Paz Walton RN | | | | | [phone] | | | +--------+ + + + [...] Sore | | | | | | b-[id number]-bp | Throat. | | | | | [...] MD | | 2019 | | | [address] | | | | | | [place] | | | | | | [address] | | | | | | | | +--------+ + + + + | 06/29/ | Office | Oncology | Wilton Jeff MD | | | 2019 | Visit | | [address] | | | | | | [place] | | | | | | [address] | | | | | | | | | | | | Marilou Mcmullen, | | | | | | [address] | | | | | [address] | | | | | | [place] [address] | | | | | | [phone] | | | | | | | | +--------+ + + + + | 06/29/ | Appointment | Infusion Therapy | Wilton Jeff MD | | | 2019 | | | [address] | | | | | | [place] | | | | | | [address] | | | | | | | | +--------+ + + + + | 07/14/ | Office | Otolaryngology | She Huang | | | 2019 | Visit | | J, DO [address] | | | | | | [place] [address] | | | | | | [phone] | | | | | | | | +--------+ + + + + | 07/20/ | Appointment | Infusion Therapy | Wilton Jeff MD | | | 2019 | | | [address] | | | | | | [place] | | | | | | [address] | | | | | | | | +--------+ + + + + | 07/20/ | Office | Oncology | Wilton Jeff MD | | | 2019 | Visit | | [address] | | | | | | [place] | | | | | | [address] | | | | | | | | +--------+ + + + + | 07/20/ | Appointment | Infusion Therapy | Wilton Jeff MD | | | 2019 | | | [address] | | | | | | [place] | | | | | | [address] | | | | | | | | +--------+ + + + + | 08/17/ | Appointment | Infusion Therapy | Wilton Jeff MD | | | 2019 | | | [address] | | | | | | [place] | | | | | | [address] | | | | | | | | +--------+ + + + + | 08/17/ | Office | Oncology | Wilton Jeff MD | | | 2019 | Visit | | [address] | | | | | | [place] | | | | | | [address] | | | | | | | | +--------+ + + + + documented as of this encounter Visit Diagnoses + + | Diagnosis | + + | 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
--- OUTSIDE RECORDS SUMMARY | ~2020-06-23 | XMS | Encounter Summary ---
Demographics + + + | Address | [address] | | | [place] [address] | + + + | Home Phone | | + + + | Preferred Language | Unknown | + + + | Marital Status | Single | + + + | Orthodox Affiliation | Unknown | + + + [...] Team Providers + +------+ + | Care Printing Manager Name | Role | Phone | [...] + + | 04/08/ | Hospital | 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 [...] file. Follow up: Myrna Heath MD [address] [facility] [place] [id number] Schedule an appointment as soon as possible for a visit in 2 weeks [facility] [address] [facility] [address] On 04/14/2020 White cell growth factor at 3:00. Wilton Jeff MD [address] [facility] [address] On 04/17/2020 Labs at 9:00. See Dr. Jeff at 9:45. Wilton Jeff MD [address] [place] [address] On 04/27/2020 Labs at 8:15. See Dr. Jeff at 9:00. Discharge Medications New Medications Details acyclovir 200 mg capsule Take 4 capsules by mouth 2 times daily. Indications: Herpes Zoster Prevention in Immunocom promised aka: ZOVIRAX aluminum & magnesium vkweivnsb-ghknpclxomz-kqaexfggoxYMOHI-lidocaine Swish and spit 15 mLs every 4 hours as needed for Sore Throat. xxumpmrcyayvceo-haeqhjecfmzydt-thnptvzb suspension Swish and spit 10 mLs 4 [...] of this report have been prepared using Invoiceable voice recognition software. The rep ort was [...] must contact the clinic, call the provider leather production worker and/or seek immediate medical ca re for [...] strain that is spread mainly from pers dc-ak-duewgx through respiratory droplets when an infected person [...] are not available, use an alcohol-based hand jewel lathe operator with at least 60 % alcohol covering [...] and need to call 911, notify the automatic corn grinder operator that you have or think you [...] COVID-19 symptoms, residents in nursing facilities or long-term communities or home health, or those who [...] or preparing your food. ? Use hand jewel lathe operator if soap and water are not available. [...] with soap and water or in the dye maker/washer. ? Call ahead before visiting your doctor. [...] local public health website. CDC: COVID-19: https://www.cdc.gov/coronavirus/2019-ncov/index.html [place] Coronavirus Advisory: https://www.[facility].org/pgtjohbq-ckr-muxwjfkl/coron avirus-advisory Virtual Visits Available https://virtual.[place].org/ 7. If you have non-urgent questions about your care, treatment or symptoms and desire to sp eak with an oncology nurse, our Triage Nurse at [facility] Hematology & Oncology can be r eached during normal business hours at [phone]. documented in this encounter Medications at Time [...] Sore | | | | | | b-rbxaggzvjbTQFNP-zd | Throat. | | | | | [...] infusion therapy, outpatient (specify) Community Agency Name: [facility] Home Health Disciplines: [place] of Choice: Other Resources: Equipment Durable Medical Equipment Provider: Home Equipment at Discharge: Equipment Used at Home: none Pharmacy Pharmacy/Medication needs: ([facility] in [facility]) Notes: RX for mouth wash to be filled by RX pharmacy and delivered to bedside prior to d/c today. Electronically signed: Rachna Nolan RN 04/13/2020 1:46 PM PDT RenataLisaKOLE - 04/13/2020 10:18 AM PDTFormatting of this note might be different from the [facility] Service: Hematology and Oncology Progress Note Hospital Day: LOS: 5 days Patient Summary: Mr. Asad Longo is a 29 year old male with no significant past medical history othe r than tobacco use (1/2-1 pack/day 7382-1794) who began experiencing cough, pleuritic chest pain, [...] was referred to oncology and saw Dr. eJff in consultation March 27, 2020 who r [...] Oral BID allopurinol 300 mg Oral Daily rnetdxepvqKPWMP-hvgqik-xvoramqbq mouthwash (ADS admixture) 15 mL Swish & [...] at 04/12/202047 PRN Medications acetaminophen, albuterol, albuterol, frhjuzmfmhHQKZF-dduhbs-dtfaabxlf mouthwash (ADS admixt ure), benzonatate, uaseacncaz-newbexogbhjws-eoaeqfph, dextromethorphan-guaifenesin, diphenhy drAMINE, docusate sodium, EPINEPHrine, famotidine, [...] were not limited to bleeding, pneumothorax, infection, group home vein occlusion, allergic reaction and . The [...] vein. Using standard Seldinger technique, a 5 Panamanian micropuncture sheath was position over the wire [...] Code KOLE Goetz 04/13/2020 10:18 AM PDT [facility] Hematology & Oncology Portions of this [...] note might be different from the original. [facility] Service: Hematology and Oncology Progress Note Hospital Day: LOS: 4 days Treatment Team: Wilton Jeff MD SUBJECTIVE: No acute issue overnight. Afebrile. Complains mouth sore. The cough continues to improve. D enied any chest pain, worsening SOB, abdominal pain, n/v. Constipated. OBJECTIVE: Scheduled Medications acyclovir 800 mg Oral BID allopurinol 300 mg Oral Daily celntfchtzWYMGT-zgdrex-aaxomhkim mouthwash (ADS admixture) 15 mL Swish & [...] Q6H PRN benzonatate, 100 mg, TID PRN jljrncelmd-jdnsuchujkysg-olvkjbbh, 1-2 tablet, Q4H PRN diphenhydrAMINE, 25 mg, [...] sore from chemo. Will start him on Tarrant magic mouth wash. Code Status: Full Code [...] lymphoma. [facility] for [facility] [...] Daily benzonatate, 100 mg, Oral, TID PRN joehotxfiy-nezdlbxnqkswy-grggibth, 1-2 tablet, Oral, Q4H PRN diphenhydrAMINE, 25 [...] Medications Current Facilty-Administered PRN Medications Ordered in [facility] Medication Dose Route Frequency Provider Last Rate [...] MD 100 mg at 0 04/08/20 2030 plqeeczkiu-ysytnwqdrcxih-psjpecpd 50-325-40 mg per tablet 1-2 tablet 1-2 [...] 250 mL Intravenous PRN Lisa Esparza, AR ENGINE ROOM OPERATOR sodium chloride 0.9% (NS) infusion 500 mL 500 mL Intravenous PRN Lisa Esparza, TEAM PSYCHOLOGIST sodium chloride 0.9% flush 10 mL 10 mL Intracatheter PRN Lisa Esparza, TEAM PSYCHOLOGIST Allergy: No Known Allergies OBJECTIVE Vital Signs: [...] Awad MD - 04/11/2020 8:55 AM PDT [facility]: Hematology and Oncology Progress Note Hospital [...] Q6H PRN benzonatate, 100 mg, TID PRN bwipoyqgtu-jaetvjhwtjoxo-ikvnjdnh, 1-2 tablet, Q4H PRN diphenhydrAMINE, 25 mg, [...] Daily benzonatate, 100 mg, Oral, TID PRN vyuysxgysz-mhkzneddwvcnv-swcucpah, 1-2 tablet, Oral, Q4H PRN diphenhydrAMINE, 25 [...] Medications Current Facilty-Administered PRN Medications Ordered in [facility] Medication Dose Route Frequency Provider Last Rate [...] Whiteside MD 100 mg at 0 04/08/202029 pwjrhxwklk-vgbxttkwoyczi-ffzpojoq 50-325-40 mg per tablet 1-2 tablet 1-2 tablet Oral Q 4H PRN WILTON BeckerP 1 tablet at 04/10/202028 diphenhydrAMINE (BENADRYL) injection 25 mg 25 mg Intravenous Q15 Min PRN KOLE Baig docusate sodium (COLACE) capsule 100 mg 100 mg Oral BID PRN Addie Whiteside MD 100 mg at 04/10/201709 EPINEPHrine 1 mg/mL injection 0.3 mg 0.3 mg Intramuscular Q5 Min PRN Lisa wyatt, TEAM PSYCHOLOGIST famotidine (PEPCID) injection 20 mg 20 mg Intravenous Once PRN Vazquez Becker ELECTRICAL TECH/PROJECT MANAGER heparin 100 units/mL flush injection 500 Units 5 mL Intracatheter PRN Lisa carpenter, TEAM PSYCHOLOGIST HYDROcodone-acetaminophen (NORCO) 5-325 mg per tablet 1 [...] mL Intravenous PRN Lisa J Isaias, AR ENGINE ROOM OPERATOR sodium chloride 0.9% (NS) infusion 500 mL 500 mL Intravenous PRN Lisa Rola Isaias, TEAM PSYCHOLOGIST sodium chloride 0.9% flush 10 mL 10 mL Intracatheter PRN Lisa J Isaias, TEAM PSYCHOLOGIST Allergy: No Known Allergies OBJECTIVE Vital Signs: [...] infusion therapy, outpatient (specify) Community Agency Name: [facility] Other Resources: Discharge Transportation Transportation Needs: [...] 2 puff Inhalation Once PRN Lisa Esparza, TEAM PSYCHOLOGIST albuterol 90 mcg/puff inhaler 2 puff 2 [...] 20 mg Intravenous Once PRN Vazquez Becker ELECTRICAL TECH/PROJECT MANAGER heparin 100 units/mL flush injection 500 Units 5 mL Intracatheter PRN Lisa Miranda ippo, TEAM PSYCHOLOGIST HYDROcodone-acetaminophen (NORCO) 5-325 mg per tablet 1 [...] mL Intravenous PRN Lisa J Isaias, AR ENGINE ROOM OPERATOR sodium chloride 0.9% (NS) infusion 500 mL 500 mL Intravenous PRN Lisa Rola Isaias, TEAM PSYCHOLOGIST sodium chloride 0.9% flush 10 mL 10 mL Intracatheter PRN Lisa J Isaias, TEAM PSYCHOLOGIST Allergy: No Known Allergies OBJECTIVE Vital Signs: Vitals: 04/10/20 0731 BP: 111/60 Pulse: 80 Resp: 20 Temp: 36.6 C (97.9 F) Intake/Output Summary (Last 24 hours) at 04/10/2020 0719 Last data filed at 04/10/2020 0548 Gross [...] M D - 04/10/2020 7:14 AM PDT [facility]: Hematology and Oncology Progress Note Hospital Day: LOS: 2 days Patient Summary: Mr. Asad Longo is a 29 year old male with no significant past medical history othe r than tobacco use (1/2-1 pack/day 5932-6049) who began experiencing cough, pleuritic chest pain, [...] were not limited to bleeding, pneumothorax, infection, petroleum terminal plant operator vein occlusion, allergic reaction and . The [...] vein. Using standard Seldinger technique, a 5 Panamanian micropuncture sheath was position over the wire [...] Wilton Jeff MD 04/10/2020 7:25 AM PDT [facility] Hematology & Oncology Portions of this [...] A RNP - 04/09/2020 8:19 AM PDT [facility]: Hematology and Oncology Progress Note Hospital Day: LOS: 1 day Patient Summary: Mr. Asad Longo is a 29 year old male with no significant past medical history othe r than tobacco use (1/2-1 pack/day 6540-6972) who began experiencing cough, pleuritic chest pain, [...] were not limited to bleeding, pneumothorax, infection, petroleum terminal plant operator vein occlusion, allergic reaction and . The [...] vein. Using standard Seldinger technique, a 5 Panamanian micropuncture sheath was position over the wire [...] Code KOLE Goetz 04/09/2020 8:19 AM PDT [facility] Hematology & Oncology Portions of this [...] mg Oral Q4H PRN Addie Whiteside MD albuterol 90 mcg/puff inhaler 2 puff [...] might be different from th e original. [facility]: Hospitalist History and Physical Date of [...] CERVICAL NODE; Surgeon: She Huang DO; [place] [facility] [place] No Known Allergies No [...] Old records reviewed on EMR. Dictation software, Invoiceable, used which may contain error for similar [...] and no further bleeding today. lan of [facility] - Judy Alcantara RN - 04/12/2020 9:31 [...] on the answering service. For emergencies call 467 Because Chemotherapy destroys the most rapidly growing [...] can cause mouth irritation or sores. ? [place] your teeth after every meal and at [...] the BRAT diet (Bananas, Rice, Applesauce, and [place]). You may use a Sitzbath, or D [...] Wigs and scarves are available at the [facility] free of charge ? Avoid excess [...] 12. WEB Sites for Cancer Patients: a. [place] [employer] www.cancer.org b. National Cancer [place] www.cancer.gov (ebooks available on website) c. Chemocare [...] Medical Equipment Provider: Pharmacy/Medication Needs: ([facility] in [facility]) Transportation Needs: car Initial Plan Anticipated Discharge [...] with his S.O and 2 kids in [place], [place]. Pt is currently not working. Electronically [...] diarr hea or constipation. Estimated Energy Needs 5720-4995 kcal/day (25-30 kcal/kg per 88.1 kg admit [...] | | | | | | [place] [address] | | | | | | [phone] | | | | | | | | +--------+ + + + + | 06/29/ | Appointment | Infusion Therapy | Wilton Jeff MD | | | 2019 | | | [address] | | | | | | [place] | | | | | | [address] | | | | | | | | +--------+ + + + + | 07/14/ | Office | Otolaryngology | She Huang | | | 2019 | Visit | | DO Sophia Canela | | | | | | [address] | | | | | | [place] [address] | | | | | | [phone] | | | | | | | | +--------+ + + + + | 07/20/ | Appointment | Infusion Therapy | Wilton Jeff MD | | | 2019 | | | [address] | | | | | | [place] | | | | | | [address] | | | | | | | | +--------+ + + + + | 07/20/ | Office | Oncology | Wilton Jeff MD | | | 2019 | Visit | | [address] | | | | | | [place] | | | | | | [address] | | | | | | | | +--------+ + + + + | 07/20/ | Appointment | Infusion Therapy | Wilton Jeff MD | | | 2019 | | | [address] | | | | | | [place] | | | | | | [address] | | | | | | | | +--------+ + + + + | 08/17/ | Appointment | Infusion Therapy | Wilton Jeff MD | | | 2019 | | | [address] | | | | | | [place] | | | | | | [address] | | | | | | | | +--------+ + + + + | 08/17/ | Office | Oncology | Wilton Jeff MD | | | 2019 | Visit | | [address] | | | | | | [place] | | | | | | [address] | | | | | | | [...] | | | | | performed at [facility];[address] | | | | | | [facility];[place], [place] | | | | | | [address] | | | | + + + + + + + + | Specimen | + + | Blood | + + + + + + + | Performing | Address | City/State/Zipcode | Phone Number | | Organization | | | | + + + + + | [facility] | [address] | [place] [address] | [phone] | + + + + + CBC [...] | | | Absolute | performed at [facility];[address] | K[address]uL | LABORATORY | | | | [address];[place] | | | | | | [address] | | | | + + + + + + + + | Specimen | + + | Blood | + + + + + + + | Performing | Address | City/State/Zipcode | Phone Number | | Organization | | | | + + + + + | [facility] | [address] | [place] [address] | [phone] | + + + + + CBC [...] [place], | | | | | | [place] [address] | | | | + + + + + + + + | Specimen | + + | Blood | + + + + + + + | Performing | Address | City/State/Zipcode | Phone Number | | Organization | | | | + + + + + | [facility] | [address] | [place] [address] | [phone] | + + + + + Comprehensive [...] | | | | | performed at [facility], [address] | | | | | | [facility], | | | | | | [place] [address] | | | | + + + + + + + + | Specimen | + + | Blood | + + + + + + + | Performing | Address | City/State/Zipcode | Phone Number | | Organization | | | | + + + + + | [facility] | [address] | [place] [address] | [phone] | + + + + + Uric Acid (04/11/2020 3:59 AM PDT) + + + + + + | Component | Value | Ref Range | Performed | Pathologist | | | | | At | Signature | + + + + + + | Uric Acid | 2.3 (L)Comment: Testing | 3.2 - 8.6 mg/dL | [facility] | | | | performed at [facility];[address] | | LABORATORY | | | | [address] | | | | | | [address] | | | | + + + + + + + + | Specimen | + + | Blood | + + + + + + + | Performing | Address | City/State/Zipcode | Phone Number | | Organization | | | | + + + + + | [facility] | [address] | [place] [address] | [phone] | + + + + + CBC [...] | | | Absolute | performed at [facility];[address] | K/uL | LABORATORY | | | | [address];[place], [place] | | | | | | [address] | | | | + + + + + + + + | Specimen | + + | Blood | + + + + + + + | Performing | Address | City/State/Zipcode | Phone Number | | Organization | | | | + + + + + | [facility] | [address] | [place] [address] | [phone] | + + + + + Comprehensive [...] (H) | 10 - 65 U/L | [facility] | | | | | | LABORATORY | | + + + + + + | Estimated | >60Comment: GFR <60: | >60 | [facility] | | | GFR | CHRONIC KIDNEY [...] | | | | | performed at [facility];[address] | | | | | | [facility];[place], [place] | | | | | | [address] | | | | + + + + + + + + | Specimen | + + | Blood | + + + + + + + | Performing | Address | City/State/Zipcode | Phone Number | | Organization | | | | + + + + + | [facility] | [address] | [place] [address] | [phone] | + + + + + Uric Acid (04/10/2020 3:41 AM PDT) + + + + + + | Component | Value | Ref Range | Performed | Pathologist | | | | | At | Signature | + + + + + + | Uric Acid | 2.0 (L)Comment: Testing | 3.2 - 8.6 mg/dL | [facility] | | | | performed at [facility];[address] | | LABORATORY | | | | [address];[place] | | | | | | [address] | | | | + + + + + + + + | Specimen | + + | | + + + + + + + | Performing | Address | City/State/Zipcode | Phone Number | | Organization | | | | + + + + + | [facility] | [address] [facility] | [place] [address] | [phone] | + + + + + CBC [...] | | | Absolute | performed at [facility];[address] | K/uL | LABORATORY | | | | [address];[place], [place] | | | | | | [address] | | | | + + + + + + + + | Specimen | + + | Blood | + + + + + + + | Performing | Address | City/State/Zipcode | Phone Number | | Organization | | | | + + + + + | [facility] | [address] | [place] [address] | [phone] | + + + + + Comprehensive [...] | >60Comment: GFR <60: | >60 | [facility] | | | GFR | CHRONIC KIDNEY [...] | | | | | performed at [facility];[address] | | | | | | [facility];[place], [place] | | | | | | [address] | | | | + + + + + + + + | Specimen | + + | Blood | + + + + + + + | Performing | Address | City/State/Zipcode | Phone Number | | Organization | | | | + + + + + | [facility] | [address] [facility] | [place] [address] | [phone] | + + + + + Uric Acid (04/09/2020 3:17 AM PDT) + + + + + + | Component | Value | Ref Range | Performed | Pathologist | | | | | At | Signature | + + + + + + | Uric Acid | 3.0 (L)Comment: Testing | 3.2 - 8.6 mg/dL | [facility] | | | | performed at [facility];[address] | | LABORATORY | | | | [address];[place] | | | | | | [address] | | | | + + + + + + + + | Specimen | + + | Blood | + + + + + + + | Performing | Address | City/State/Zipcode | Phone Number | | Organization | | | | + + + + + | [facility] | [address] | [place] [address] | [phone] | + + + + + Phosphorus (04/09/2020 3:17 AM PDT) + + + + + + | Component | Value | Ref Range | Performed | Pathologist | | | | | At | Signature | + + + + + + | Phosphorus | 4.7Comment: Testing | 2.3 - 4.8 mg/dL | [facility] | | | | performed at [facility];[address] | | LABORATORY | | | | [address];[place] | | | | | | [address] | | | | + + + + + + + + | Specimen | + + | Blood | + + + + + + + | Performing | Address | City/State/Zipcode | Phone Number | | Organization | | | | + + + + + | [facility] | [address] | [place] [address] | [phone] | + + + + + Magnesium (04/09/2020 3:17 AM PDT) + + + + + + | Component | Value | Ref Range | Performed | Pathologist | | | | | At | Signature | + + + + + + | Magnesium | 1.9Comment: Testing | 1.7 - 2.4 mg/dL | [facility] | | | | performed at [facility];[address] | | LABORATORY | | | | [address];[place] | | | | | | [address] | | | | + + + + + + + + | Specimen | + + | Blood | + + + + + + + | Performing | Address | City/State/Zipcode | Phone Number | | Organization | | | | + + + + + | [facility] | [address] | [place] [address] | [phone] | + + + + + CBC [...] 0.05Comment: Testing | 0.00 - 0.10 | [facility] | | | Absolute | performed at [facility];[address] | K[address]uL | LABORATORY | | | | [address] [place] | | | | | | [address] | | | | + + + + + + + + | Specimen | + + | Blood | + + + + + + + | Performing | Address | City/State/Zipcode | Phone Number | | Organization | | | | + + + + + | [facility] | [address] | [place] [address] | [phone] | + + + + + Comprehensive [...] | >60Comment: GFR <60: | >60 | [facility] | | | GFR | CHRONIC KIDNEY [...] | | | | | performed at [facility];[address] | | | | | | [facility];[place], [place] | | | | | | [address] | | | | + + + + + + + + | Specimen | + + | Blood | + + + + + + + | Performing | Address | City/State/Zipcode | Phone Number | | Organization | | | | + + + + + | [facility] | [address] | [place] [address] | [phone] | + + + + + documented [...] Bronchospasm or hypoxemia, | | | Starting [facility] 04/09/20 at 0857, | | | Carter junior. Blanca repeat x 1., | | + +---+ | | | + +---+ + +-------+ +--------+---+---+ | allopurinol (ZYLOPRIM) tablet | Given | 04/13/20 | 300 mg | | | | 300 mg 300 mg, Oral, DAILY, | | 20 8:53 | | | | | First dose on [facility] 04/09/20 at 0900 | | AM PDT [...] 04/12/20 | 2 | | | | paohcllwut-ahqbsepgflykq-wxiqrijk | | 20 8:36 | tablets | [...] DAILY PRN, Cough, | | | Starting [place] 04/12/20 at 0944, Do | | | not cut or crush., | | + +---+ | | | + +---+ | diphenhydrAMINE (BENADRYL) | | | injection 25 mg 25 mg, | | | Intravenous, EVERY 15 MIN PRN, | | | infusion reaction, may repeat x1, | | | Starting [facility] 04/09/20 at 0857, For | | | 2 doses | | + +---+ | | | + +---+ | | | | vlrdfhgjbsnufcl-uwhxdpdqzprzes-ml | | | statin (DUKES MOUTHWASH) | [...] MIN PRN, Anaphylaxis, | | | Starting [facility] 04/09/20 at 0857, For | | | [...] | | | | | modification) on [facility] 04/09/20 at | | | | | [...] PRN, Line | | | Care, Starting [facility] 04/09/20 at 0857 | | + +---+ [...] PRN, Infusion | | | reaction, Starting [facility] 04/09/20 at | | | 0857, For [...] | | | | [facility] 04/09/20 at 1330, For 1 dose, | [...] | | | | | | | [facility] 04/13/20 at 1300, For 1 dose, | [...] | | | | First dose on [facility] 04/09/20 at 1200, | | AM PDT [...] needed with | | | NS, Starting [facility] 04/09/20 at 0857 | | + +---+ | | | + +---+ | sodium chloride 0.9% (NS) bolus | | | 250 mL 250 mL, Intravenous, | | | PRN, Flush before and after IV | | | medication(s) and as needed with | | | NS, Starting [facility] 04/13/20 at 0459 | | + +---+ [...] | | | | [facility] 04/09/20 at 0857, Run wide | | [...] PRN, | | | Line Care, Starting [facility] 04/09/20 at | | | 0857 | | + +---+ | | | + +---+ documented in this encounter
--- OUTSIDE RECORDS SUMMARY | ~2020-06-23 | XMS | Encounter Summary ---
Demographics + + + | Address | [address] | | | [place] [address] | + + + | Home Phone [...] Team Providers + +------+ + | Care Laborer/Key Man Name | Role | Phone | [...] | | [address] | Joseph Pet Counselor | B-cell lymphoma of | | | | [place] | | lymph nodes of | | | | [address] | | multiple regions | | | | [phone] | | (HCC) | +--------+ + + [...] [place] | | | | | | [address] | | | | | | | | +--------+ + + + + | 06/29/ | Office | Oncology | Wilton Jfef MD | | | 2019 | Visit | | [address] | | | | | | [place] | | | | | | [address] | | | | | | | | | | | | Marilou Mcmullen, | | | | | | MANAGER ELECTRICAL [address] | | | | | | [address] | | | | | | [place] [address] | | | | | | [phone] | | | | | | | | +--------+ + + + + | 06/29/ | Appointment | Infusion Therapy | Wilton Jeff MD | | | 2019 | | | [address] | | | | | | [place] | | | | | | [address] | | | | | | | | +--------+ + + + + | 07/14/ | Office | Otolaryngology | She Huang | | | 2019 | Visit | | DO Sophia Cnaela | | | | | | [facility] [address] | | | | | | [place] [address] | | | | | | [phone] | | | | | | | | +--------+ + + + + | 07/20/ | Appointment | Infusion Therapy | Wilton Jeff MD | | | 2019 | | | [address] | | | | | | [place] | | | | | | [address] | | | | | | | | +--------+ + + + + | 07/20/ | Office | Oncology | Wilton Jeff MD | | | 2019 | Visit | | [address] | | | | | | [place] | | | | | | [address] | | | | | | | | +--------+ + + + + | 07/20/ | Appointment | Infusion Therapy | Wilton Jeff MD | | | 2019 | | | [address] | | | | | | [place] | | | | | | [address] | | | | | | | | +--------+ + + + + | 08/17/ | Appointment | Infusion Therapy | Wilton Jeff MD | | | 2019 | | | [address] | | | | | | [place] | | | | | | [address] | | | | | | | | +--------+ + + + + | 08/17/ | Office | Oncology | Wilton Jeff MD | | | 2019 | Visit | | [address] | | | | | | [place] | | | | | | [address] | | | | | | | [...] | | Testing Performed at | | [facility] | | | | [facility], [address] [facility] | | LABORATORY | | | | [address], | | | | | | [place] [address] | | | | + + + + + + + + | Specimen | + + | Blood | + + + + + + + | Performing | Address | City/State/Zipcode | Phone Number | | Organization | | | | + + + + + | REFERENCE LAB | [address] [facility] | [place], [place] | [phone] | | [facility] | Bl[address] | [address] | | | LABORATORY | | | | + + + + + | REFERENCE LAB | [address] [place] [address] | [place], [place] | | | [facility] | Blvd. | [address] | | | LABORATORY | | | [...] | | | | | | MDRD IDDE traceable | | | | | | equation.Testing | | | | | | Performed at [facility], [address] | | | | | | [address] | | | | | | [address], [place] | | | | | | [address] | | | | + + + + + + + + | Specimen | + + | Blood | + + + + + + + | Performing | Address | City/State/Zipcode | Phone Number | | Organization | | | | + + + + + | REFERENCE LAB | [address] [place] [address] | [place], [place] | [phone] | | [facility] | Bl[address] | [address] | | | LABORATORY | | | | + + + + + | REFERENCE LAB | [address] [place] [address] | [place], [place] | | | [facility] | Blvd[address] 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
--- OUTSIDE RECORDS SUMMARY | ~2020-06-23 | XMS | Encounter Summary ---
Demographics + + + | Address | [address] | | | [place] [address] | + + + | Home Phone | | + + + | Preferred Language | Unknown | + + + | Marital Status | Single | + + + | Adventist Affiliation | Unknown | + + + | Race | White | + + + | Ethnic Group | Not or | + + + Author + + + | Author | [facility] | | | and [place] | + + + | Organization | [facility] | | [...] Team Providers + +------+ + | Care Recruiter Account Manager Name | Role | Phone | + +------+ + | Myrna Mejia MD | PCP | | + +------+ + Encounter Details +--------+ + + + + | Date | Type | Department | Care Team | Description | +--------+ + + + + | 05/18/ | Orders Only | [facility] | Paz Walton RN | Mediastinal large | | 2020 | | HEMATOLOGY AND | | B-cell lymphoma of | | | | ONCOLOGY INFUSIONS | | lymph nodes of | | | | [address] | | multiple regions | | | | [place] | | ([facility]) | | | | [address] | | | | | | [phone] | | | +--------+ + + + [...] 2019 | | | [address] | | | | | | [place] | | | | | | [address] | | | | | | | | +--------+ + + + + | 06/29/ | Office | Oncology | Wilton Jeff MD | | | 2019 | Visit | | [address] | | | | | | [place] | | | | | | [address] | | | | | | | | | | | | Marilou Mcmullen, | | | | | | AIRCRAFT ARMORER [address] | | | | | | [address] | | | | | | [place] [address] | | | | | | [phone] | | | | | | | | +--------+ + + + + | 06/29/ | Appointment | Infusion Therapy | Wilton Jeff MD | | | 2019 | | | [address] | | | | | | [place] | | | | | | [address] | | | | | | | | +--------+ + + + + | 07/14/ | Office | Otolaryngology | She Huang | | | 2019 | Visit | | DO Sophia Canela | | | | | | [facility] [address] | | | | | | [place] [address] | | | | | | [phone] | | | | | | | | +--------+ + + + + | 07/20/ | Appointment | Infusion Therapy | Wilton Jeff MD | | | 2019 | | | [address] | | | | | | [place] | | | | | | [address] | | | | | | | | +--------+ + + + + | 07/20/ | Office | Oncology | Wilton Jeff MD | | | 2019 | Visit | | [address] | | | | | | [place] | | | | | | [address] | | | | | | | | +--------+ + + + + | 07/20/ | Appointment | Infusion Therapy | Wilton Jeff MD | | | 2019 | | | [address] | | | | | | [place] | | | | | | [address] | | | | | | | | +--------+ + + + + | 08/17/ | Appointment | Infusion Therapy | Wilton Jeff MD | | | 2019 | | | [address] | | | | | | [place] | | | | | | [address] | | | | | | | | +--------+ + + + + | 08/17/ | Office | Oncology | Wilton Jeff MD | | | 2019 | Visit | | [address] | | | | | | [place] | | | | | | [address] | | | | | | | | +--------+ + + + + documented as of this encounter Procedures + +--------+ + + + | Procedure Name | Priori | Date/Time | Associated Diagnosis | Comments | | | ty | | | | + +--------+ + + + | CBC WITH | STAT | 05/18/2020 | Mediastinal large | Results for this | | DIFFERENTIAL | | 8:43 AM | 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 | | | | | multiple regions | | | | | | (HCC) | | + +--------+ + + + | COMPREHENSIVE | STAT | 05/18/2020 | Mediastinal large | Results for this | | METABOLIC PANEL | | 8:43 AM | 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 | | | | | multiple regions | | | | | | (HCC) | | + +--------+ + + + documented in this encounter Results CBC with Differential (05/18/2020 8:43 AM PDT) [...] LAB | | | | [facility];[address] [facility] | | [facility] | | | | Blvd;[place] [address] | | LABORATORY | | + + + + + + | Red Blood | 3.86 (L)Comment: Testing | 4.20 - 5.70 | REFERENCE | | | Cells | performed at [facility];[address] | M/uL | LAB | | | | [place] | | [facility] | | | | [address]vd;[place] [address] | | LABORATORY | | + + + + + + | Hemoglobin | 11.2 (L)Comment: Testing | 13.2 - 17.0 | REFERENCE | | | | performed at [facility];[address] | g/dL | LAB | | | | [place] | | [facility] | | | | Blvd;[place] [address] | | LABORATORY | | + + + + + + | Hematocrit | 35.0 (L)Comment: Testing | 39.0 - 50.0 % | REFERENCE | | | | performed at [facility];[address] | | LAB | | | | [place] | | [facility] | | | | [address]vd;[place] [address] | | LABORATORY | | + + + + + + | MCV | 90.7Comment: Testing | 80.0 - 100.0 fl | REFERENCE | | | | performed at [facility];[address] | | LAB | | | | [place] | | [facility] | | | | Blvd;[place] [address] | | LABORATORY | | + + + + + + | MCH | 29.0Comment: Testing | 27.0 - 34.0 pg | REFERENCE | | | | performed at [facility];[address] | | LAB | | | | [place] | | [facility] | | | | Blvd;[place] [address] | | LABORATORY | | + + + + + + | MCHC | 32.0Comment: Testing | 32.0 - 35.5 | REFERENCE | | | | performed at [facility];[address] | g/dL | LAB | | | | [place] | | [facility] | | | | Blvd;[place] [address] | | LABORATORY | | + + + + + + | RDW-SD | 61.4 (H)Comment: Testing | 37 - 53 fl | REFERENCE | | | | performed at [facility];[address] | | LAB | | | | [place] | | [facility] | | | | Blvd;[place] [address] | | LABORATORY | | + + + + + + | Platelet | 224Comment: Testing | 150 - 400 K/uL | REFERENCE | | | Count | performed at [facility];[address] | | LAB | | | | [place] | | [facility] | | | | Blvd;[place] [address] | | LABORATORY | | + + + + + + | MPV | 9.9Comment: NO NORMAL | fl | REFERENCE | | | | RANGE ESTABLISHEDTesting | | LAB | | | | performed at [facility];[address] | | [facility] | | | | [place] | | LABORATORY | | | | Blvd;[place] [address] | | | | | | | [...] | | Testing Performed at | | [facility] | | | | [facility], [address] [facility] | | LABORATORY | | | | [address], | | | | | | [place] [address] | | | | + + + + + + + + | Specimen | + + | Blood | + + + + + + + | Performing | Address | City/State/Zipcode | Phone Number | | Organization | | | | + + + + + | REFERENCE LAB | [address] | [place], [place] | [phone] | | [facility] | Bl[address] | [address] | | | LABORATORY | | | | + + + + + | REFERENCE LAB | [address] [facility] | [place], [place] | | | [facility] | Blvd. | [address] | | | LABORATORY | | | [...] [place] | | | | | | [address] | | | | + + + + + + + + | Specimen | + + | Blood | + + + + + + + | Performing | Address | City/State/Zipcode | Phone Number | | Organization | | | | + + + + + | REFERENCE LAB | [address] [facility] | [place] | [phone] | | [facility] | Bl[address] | [address] | | | LABORATORY | | | | + + + + + | REFERENCE LAB | [address] | [place], [place] | | | [facility] | Blvd[address] 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
--- OUTSIDE RECORDS SUMMARY | ~2020-06-23 | XMS | Encounter Summary ---
Demographics + + + | Address | [address] | | | [place] [address] | + + + | Home Phone [...] + + + | Author | [facility] | | | and [place] | + + + | Organization | [facility] | | | and [...] Team Providers + +------+ + | Care Juice Scaleman Name | Role | Phone | + +------+ + | Myrna Mejia MD | PCP | | + +------+ + Encounter Details +--------+ + + + + | Date | Type | Department | Care Team | Description | +--------+ + + + + | 04/03/ | Orders Only | [facility] | Wilton Jeff MD | Mediastinal large | | 2019 | | HEMATOLOGY AND | [address] | B-cell lymphoma of | | | | ONCOLOGY [address] | [place], [place] | lymph nodes of | | | | [address] | [address] | multiple regions | | | | [place], [place] | | (HCC) (Primary Dx) | | | | [address] | | | | | | [phone] | | | +--------+ + + + [...] [place] | | | | | | [address] | | | | | | | | +--------+ + + + + | 06/29/ | Office | Oncology | Wilton Jeff MD | | | 2019 | Visit | | [address] | | | | | | [place] | | | | | | [address] | | | | | | | | | | | | Marilou Mcmullen, | | | | | | BREAKER ENGINEER [address] | | | | | | [address] | | | | | | [place] [address] | | | | | | [phone] | | | | | | | | +--------+ + + + + | 06/29/ | Appointment | Infusion Therapy | Wilton Jeff MD | | | 2019 | | | [address] | | | | | | [place] | | | | | | [address] | | | | | | | | +--------+ + + + + | 07/14/ | Office | Otolaryngology | She Huang | | | 2019 | Visit | | DO Sophia Canela | | | | | | [place] [address] | | | | | | [place] [address] | | | | | | [phone] | | | | | | | | +--------+ + + + + | 07/20/ | Appointment | Infusion Therapy | Wilton Jeff MD | | | 2019 | | | [address] | | | | | | [place] | | | | | | [address] | | | | | | | | +--------+ + + + + | 07/20/ | Office | Oncology | Wilton Jeff MD | | | 2019 | Visit | | [address] | | | | | | [place] | | | | | | [address] | | | | | | | | +--------+ + + + + | 07/20/ | Appointment | Infusion Therapy | Wilton Jeff MD | | | 2019 | | | [address] | | | | | | [place] | | | | | | [address] | | | | | | | | +--------+ + + + + | 08/17/ | Appointment | Infusion Therapy | Wilton Jeff MD | | | 2019 | | | [address] | | | | | | [place] | | | | | | [address] | | | | | | | | +--------+ + + + + | 08/17/ | Office | Oncology | Wilton Jeff MD | | | 2020 | Visit | | [address] | | | | | | [place] | | | | | | [address] | | | | | | | | +--------+ + + + + documented as of this encounter Results CBC with Differential (04/06/2020 7:54 AM PDT) + + + + + + | Component | Value | Ref Range | Performed | Pathologist | | | | | At | Signature | + + + + + + | WBC | 10.76 | 3.80 - 11.00 | REFERENCE | | | | | K/uL | LAB | | | | | | [facility] | | | | | | LABORATORY | | + + + + + + | Red Blood | 3.72 (L) | 4.20 - 5.70 | REFERENCE | | | Cells | | M/uL | LAB | | | | | | [facility] | | | | | | LABORATORY | | + + + + + + | Hemoglobin | 10.5 (L) | 13.2 - 17.0 | REFERENCE | | | | | g/dL | LAB | | | | | | [facility] | | | | | | LABORATORY | | + + + + + + | Hematocrit | 31.6 (L) | 39.0 - 50.0 % | REFERENCE | | | | | | LAB | | | | | | [facility] | | | | | | LABORATORY | | + + + + + + | MCV | 85.1 | 80.0 - 100.0 fl | REFERENCE [...] + + + + | RDW-SD | 42.9 | 37 - 53 fl | REFERENCE | | | | | | LAB | | | | | | [facility] | | | | | | LABORATORY | | + + + + + + | Platelet | 540 (H) | 150 - 400 K/uL | REFERENCE | | | Count | | | LAB | | | | | | [facility] | | | | | | LABORATORY | | + + + + + + | MPV | 7.2 | fl | REFERENCE | | | [...] + + + + | % | 80.02 | % | REFERENCE | | | Neutrophils | | | LAB | | | | | | [facility] | | | | | | LABORATORY | | + + + + + + | % | 7.93 | % | REFERENCE | | | Lymphocytes | | | LAB | | | | | | [facility] | | | | | | LABORATORY | | + + + + + + | Monocyte % | 9.62 | % | REFERENCE | | | | | | LAB | | | | | | [facility] | | | | | | LABORATORY | | + + + + + + | Eosinophils | 1.51 | % | REFERENCE | | | % | | | LAB | | | | | | [facility] | | | | | | LABORATORY | | + + + + + + | Basophils % | 0.92 | % | REFERENCE | | | | | | LAB | | | | | | [facility] | | | | | | LABORATORY | | + + + + + + | Neutrophils | 8.61 (H) | 1.90 - 7.40 | REFERENCE | | | , Absolute | | K/uL | LAB | | | | | | [facility] | | | | | | LABORATORY | | + + + + + + | Absolute | 0.85 (L) | 1.00 - 3.90 | REFERENCE | | | Lymphocytes | | K/uL | LAB | | | | | | [facility] | | | | | | LABORATORY | | + + + + + + | Absolute | 1.04 (H) | 0.00 - 0.80 | REFERENCE | | | Monocytes | | K/uL | LAB | | | | | | [facility] | | | | | | LABORATORY | | + + + + + + | Eosinophils | 0.16 | 0.00 - 0.50 | REFERENCE | | | , Absolute | | K/uL | LAB | | | | | | [facility] | | | | | | LABORATORY | | + + + + + + | Basophils, | 0.10Comment: Testing | 0.00 - 0.10 | REFERENCE | | | Absolute | Performed at [facility], [address] | K/uL | LAB | | | | [address] | | [facility] | | | | [address], [place] | | LABORATORY | | | | [address] | | | | + + + + + + + + | Specimen | + + | Blood | + + + + + + + | Performing | Address | City/State/Zipcode | Phone Number | | Organization | | | | + + + + + | REFERENCE LAB | [address] [facility] | [place] | [phone] | | [facility] | Bl[address] | [address] | | | LABORATORY | | | | + + + + + | REFERENCE LAB | [address] | [place], [place] | | | [facility] | Blvd[address] | [address] | | | LABORATORY | | | | + + + + + Comprehensive Metabolic Panel (04/06/2020 7:54 AM PDT) + + + + + [...] | 3.7 | 3.5 - 4.9 | REFERENCE | [...] + + | BUN | 15 | 6 - 20 mg/dL | REFERENCE | | | | | | LAB | | | | | | [facility] | | | | | | LABORATORY | | + + + + + + | Creatinine | 0.87 | 0.7 - 1.2 mg/dL | REFERENCE | | | | | | LAB | | | | | | [facility] | | | | | | LABORATORY | | + + + + + + | BUN/Creatin | 17 | | REFERENCE | | | ine [...] + + | Albumin | 3.7 | 3.3 - 5 g/dL | REFERENCE | | | | | | LAB | | | | | | [facility] | | | | | | LABORATORY | | + + + + + + | Globulin | 2.9 | 1.3 - 4.9 g/dL | REFERENCE [...] + + + + | AST | 15 | 5 - 40 U/L | REFERENCE | | | | | | LAB | | | | | | [facility] | | | | | | LABORATORY | | + + + + + + | ALT | 15 | 5 - 41 U/L | REFERENCE [...] | | | | | Performed at [facility], [address] | | | | | | [address] | | | | | | [address], [place] | | | | | | [address] | | | | + + + + + + + + | Specimen | + + | Blood | + + + + + + + | Performing | Address | City/State/Zipcode | Phone Number | | Organization | | | | + + + + + | REFERENCE LAB | [address] [facility] | [place], [place] | [phone] | | [facility] | [address] | [address] | | | LABORATORY | | | | + + + + + | REFERENCE LAB | [address] [place] [address] | [place], [place] | | | [facility] | [address]vd[address] | [address] | | | LABORATORY | | | | + + + + + Phosphorus (04/06/2020 7:54 AM PDT) + + + + + + | Component | Value | Ref Range | Performed | Pathologist | | | | | At | Signature | + + + + + + | Phosphorus | 3.5Comment: Testing | 2.5 - 4.5 mg/dL | REFERENCE | | | | Performed at [facility], [address] | | LAB | | | | [address] | | [facility] | | | | [address], [place], [place] | | LABORATORY | | | | [address] | | | | + + + + + + + + | Specimen | + + | Blood | + + + + + + + | Performing | Address | City/State/Zipcode | Phone Number | | Organization | | | | + + + + + | REFERENCE LAB | [address] [place] [address] | [place], [place] | [phone] | | [facility] | [address] | [address] | | | LABORATORY | | | | + + + + + | REFERENCE LAB | [address] [place] [address] | [place], [place] | | | [facility] | Blvd[address] | [address] | | | LABORATORY | | | | + + + + + Uric Acid (04/06/2020 7:54 AM PDT) + + + + + + | Component | Value | Ref Range | Performed | Pathologist | | | | | At | Signature | + + + + + + | Uric Acid | 2.1 (L)Comment: Testing | 3.2 - 8.6 mg/dL | REFERENCE | | | | performed at [facility];[address] | | LAB | | | | [place] | | [facility] | | | | Blvd;[place] [address] | | LABORATORY | | + + + + + + + + | Specimen | + + | Blood | + + + + + + + | Performing | Address | City/State/Zipcode | Phone Number | | Organization | | | | + + + + + | REFERENCE LAB | [address] [facility] [address] [facility] | [place] | [phone] | | [facility] | [address] | [address] | | | LABORATORY | | | | + + + + + | REFERENCE LAB | [address] [facility] | [place], [place] | | | [facility] | Blvd[address] 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
--- OUTSIDE RECORDS SUMMARY | ~2020-06-23 | XMS | Encounter Summary ---
Demographics + + + | Address | [address] | | [place] [address] | + + + | Home Phone [...] Author + + + | Author | [facility] | | | and [place] | + + + | Organization | [facility] | | | [...] Providers + +------+ + | Care Director Of [facility] Name | Role | Phone | + [...] | | | | | | | MD | | | | | | | [...] + + + + | 03/20/ | Hospital | [facility] | She Huang | Cervical | | 2019 | Encounter | [facility] | J, DO [address] | lymphadenopathy; | | | | OPERATING RO[address] | Supraclavicular | | | | [address] | [place] [address] | adenopathy; Cervical | | | | [place], [place] | [phone] | lymphadenopathy; | | | | [address] | | Supraclavicular | | | | [phone] | | adenopathy | +--------+ + + + + Social [...] + + + | Blood Pressure | 146/76 | 03/20/2020 12:07 PM | | | | | PDT | | + + + + + | Pulse | 101 | 03/20/2020 12:07 PM | | | | | PDT | | + + + + + | Temperature | 36.7 C (98 F) | 03/20/2020 12:07 PM | | | | | PDT | | + + + + + | Respiratory Rate | 16 | 03/20/2020 12:07 PM | | | | | PDT | | + + + + + | Oxygen Saturation | 98% | 03/20/2020 12:07 PM | | | | | PDT | | + + + + + | Inhaled Oxygen | - | - | | | Concentration | | | | + + + + + | Weight | 86 kg (189 lb 9.5 | 03/20/2020 12:07 PM | | | | oz) | PDT | | + + + + + | Height | 180.3 cm (5' 11") | 03/20/2020 12:07 PM | | | | | PDT | | + + + + + | Body Mass Index | 26.44 | 03/20/2020 12:07 PM | | | | | PDT | | + + + + + documented in this encounter Discharge Summaries She Huang DO - 03/20/2020 1:[address] [facility] Service: Otolaryngology Brief Post-op Discharge Note DISCHARGE DIAGNOSES: Active Problems: *Cervical lymphadenopathy, supraclavicular lymphadenopathy* Resolved Problems: * No resolved hospital problems. * Procedures: Procedure(s): Excision right deep cervical lymph node This patient was transferred to the recovery area post-operatively and has experienced no d ifficulties at the time of my assessment. The patient is anticipated to continue to meet di scharge criteria per protocol as assessed by nursing and may be discharged at that time with designated caregiver. Disposition: home Condition: Stable Code Status: Prior No discharge procedures on file. Follow up: Dr. Huang in 1 weeks Discharge Medications New Medications Details HYDROcodone-acetaminophen 5-325 mg per tablet Take 1 tablet by mouth every 6 hours as needed for Pain. aka: NORCO ondansetron 4 mg disintegrating tablet Take 1 tablet by mouth every 6 hours as needed for Nausea. aka: ZOFRAN ODT Unchanged Medications Details albuterol 2.5 mg/3 mL nebulizer solution VENTOLIN HFA 90 mcg/puff inhaler Generic drug: albuterol Inhale 2 puffs into the lungs every 6 hours as needed for Wheezing. benzonatate 100 mg capsule Take 100 mg by mouth 3 times daily as needed for Cough. aka: TESSALON famotidine 20 mg tablet Daily. aka: PEPCID NAPROSYN 500 mg tablet Generic drug: naproxen Take 500 mg by mouth 2 times daily (with breakfast & dinner). ondansetron 4 mg tablet 3 times daily. aka: HAN Primary Care Physician: MD She Frank DO 03/20/2020 documented in thi s encounter Discharge Instructions Instructions Wu Capellan RN - 03/20/2020MD She Tobar DO [facility] [address] [place] [address] 3[address] [place] [address] INSTRUCTION SHEET: NECK OR FACIAL SURGERY INSTRUCTIONS FOR AFTER SURGERY: Your doctor may prescribe pain medication for after the surgery. Otherwise you may use ove m-geo-rdgdyov pain medication such as Tylenol, but avoid aspirin and ibuprofen until instruc akbar by your doctor. Patients often notice pain over the surgical site. You will likely fee l numbness over the surgical site that should improve after a few weeks. You will need to sleep with your head elevated above the level of you heart. This can be a ccomplished by sleeping on several pillows or in a reclining chair. This helps to reduce sw elling and pain to the neck. You may shower or bathe and wash your hair afterwards. You should place a layer of antibio tic ointment (such as Neosporin) over the incision before and afterwards. Try not to have w ater directly on the wound. If it gets wet, lightly dab it dry. Do not wash or vigorously rub the surgical site for about two weeks. You also might have a drain coming out of the neck to prevent blood or fluids from building up in the area where surgery was done. This usually is removed in a day or longer after th e surgery. You may need to record the amount in the drain container each day until is remov ed. DIET: Start with liquids and soft foods and advance to a normal diet as tolerated. FOLLOW UP: You will need to make an appointment for about a week after surgery for removal of the sutu res. WHEN TO CALL THE DOCTOR: 1. If you have pronounced redness, swelling, or drainage. 2. Temperature over 101 degrees. 3. Problems breathing 4. Pain that is not controlled with prescription pain medications. After Your Surgery You ve just had surgery. During surgery, you received medication called anesthesia to lauren p you comfortable and pain-free. After surgery, you may experience some pain or nausea. This is common. Going Home Have an adult family member or friend drive you home. For the first 24 hours after your bridgett tomas: ? Do not drive or use heavy equipment. ? Do not make important decisions or sign legal documents. ? Avoid alcohol. ? Have someone stay with you, if needed. He or she can watch for problems and help keep you safe. Be sure to keep all follow-up appointments with your doctor. And rest after your procedure for as long as your doctor tells you to. Coping with Pain If you have pain after surgery, pain medication will help you feel better. Take your medica tion as directed, before pain becomes severe. Consider other ways to control pain, such as with heat, ice, and relaxation. To get the best relief possible, remember these points: ? Pain medications can upset your stomach. Taking them with a little food may help. ? Most pain relievers taken by mouth need at least 20 to 30 minutes to take effect. ? Taking medication on a schedule can help you remember to take it. Try to time your medica tion so that you can take it before beginning an activity, such as dressing, walking, or sit ting down for dinner. ? Don t drink alcohol while taking pain medication. ? Don t drive or operate machinery while taking pain medications as they can slow your re flexes. If your health care provider tells you to take acetaminophen or ibuprofen to help relieve y our pain, ask him or her how much you are supposed to take each day. Constipation ? Constipation is a common side effect of pain medications and anesthetics. Contact your do ctor before taking any medications like laxatives or stool softeners to help relieve constip ation, unless they have been prescribed for you. ? Drinking lots of non-alcoholic fluids and eating foods like fruits and vegetables that ar e high in fiber can also help. Managing Nausea Some people have an upset stomach after surgery. This is often due to anesthesia, pain, miguel n medications, or the stress of surgery. If you were on a special diet before surgery, ask your doctor if you should follow it during recovery. These tips may help: ? Don t push yourself to eat. Your body will tell you when to eat and how much. ? Start off with clear liquids and soup. They are easier to digest. Slowly move to solid f oods. Don t eat fatty, rich, or spicy foods at first. ? Don t force yourself to have three large meals a day. Instead, eat smaller amounts more often. Blood Clot Prevention Deep vein thrombosis (DVT) is a clot that forms in your deep veins usually in the leg o r thigh. A pulmonary embolism (PE) occurs when a clot in the bloodstream travels through th e heart and into the lungs. If the clot becomes stuck in a blood vessel in the lungs, blood flow can be blocked which causes life-threatening heart and lung problems. The following are prevention tips: ? Elevate your legs whenever they feel swollen or heavy ? Maintain a healthy weight ? Quit smoking ? Avoid sitting, standing, or lying down for long periods without moving your legs and feet . o When traveling by car, make frequent stops to get out and move around. o On long airplane, train, or bus rides, get up and move around when possible. o If you can t get up, wiggle your toes and tighten your calves to keep your blood moving . If you have any of these symptoms of DVT or PE, call your doctor: ? Swelling, pain, or both, often in one limb ? Redness or warmth, often in one limb ? Sudden, continuous pain deep in your muscle ? Worsening ache when you are active or when you stand still for a long time ? Rapid, pounding, or unusual heartbeat ? Sweating more than usual. ? Chest pain, trouble breathing, coughing up blood, skin turning blue, or fainting Call 911. What is Coronavirus? The Novel Coronavirus 2019 (COVID-19) is a new virus strain that is spread mainly from pers cy-at-wkuviw through respiratory droplets when an infected person [...] are not available, use an alcohol-based hand flow coordinator with at least 60 % alcohol covering [...] and need to call 911, notify the grout pump operator that you have or think you [...] COVID-19 symptoms, residents in nursing facilities or long term communities or home health, or those who [...] or preparing your food. ? Use hand flow coordinator if soap and water are not available. [...] with soap and water or in the human resources benefits coordinator/washer. ? Call ahead before visiting your doctor. [...] you are symptomatic but did not require consuelo ting, you can leave home after the [...] coronavirus and the community public health response, gerry fajardo your local public health website. CDC: COVID-19: https://www.cdc.gov/coronavirus/2019-ncov/index.html Acetaminophen; Hydrocodone tablets or capsules Brand Names: Anexsia, Lorcet, Lorcet HD, Lorcet Plus, Lortab, [place], Verdrocet, Vicodin, Vi codin ES, Vicodin HP, Xodol What is this medicine? ACETAMINOPHEN; HYDROCODONE (a set a CHAMP fide fen; fran droe KOE done) is a pain reliever. It is used to treat moderate to severe pain. How should I use this medicine? Take this medicine by mouth with a glass of water. Follow the directions on the prescriptio n label. You can take it with or without food. If it upsets your stomach, take it with food. Do not take your medicine more often than directed. A special MedGuide will be given to you by the pharmacist with each prescription and refill . Be sure to read this information carefully each time. Talk to your winterizer regarding the use of this medicine in children. Special care may be needed. What side effects may I notice from receiving this medicine? Side effects that you should report to your doctor or health healthcare applications analyst as soon as p ossible: allergic reactions like skin rash, itching or hives, swelling of the face, lips, or tong ue breathing problems confusion redness, blistering, peeling or loosening of the skin, including inside the mouth signs and symptoms of low blood pressure like dizziness; feeling faint or lightheaded, f alls; unusually weak or tired trouble passing urine or change in the amount of urine yellowing of the eyes or skin Side effects that usually do not require medical attention (report to your doctor or health healthcare applications analyst if they continue or are bothersome): constipation dry mouth nausea, vomiting tiredness What may interact with this medicine? This medicine may interact with the following medications: alcohol antiviral medicines for HIV or AIDS atropine antihistamines for allergy, cough and cold certain antibiotics like erythromycin, clarithromycin certain medicines for anxiety or sleep certain medicines for bladder problems like oxybutynin, tolterodine certain medicines for depression like amitriptyline, fluoxetine, sertraline certain medicines for fungal infections like ketoconazole and itraconazole certain medicines for Parkinson's disease like benztropine, trihexyphenidyl certain medicines for seizures like carbamazepine, phenobarbital, phenytoin, primidone certain medicines for stomach problems like dicyclomine, hyoscyamine certain medicines for travel sickness like scopolamine general anesthetics like halothane, isoflurane, methoxyflurane, propofol ipratropium local anesthetics like lidocaine, pramoxine, tetracaine MAOIs like Carbex, Eldepryl, Marplan, Nardil, and Parnate medicines that relax muscles for surgery other medicines with acetaminophen other narcotic medicines for pain or cough phenothiazines like chlorpromazine, mesoridazine, prochlorperazine, thioridazine rifampin What if I miss a dose? If you miss a dose, take it as soon as you can. If it is almost time for your next dose, ta ke only that dose. Do not take double or extra doses. Where should I keep my medicine? Keep out of the reach of children. This medicine can be abused. Keep your medicine in a saf e place to protect it from theft. Do not share this medicine with anyone. Selling or giving away this medicine is dangerous and against the law. Store at room temperature between 15 and 30 degrees C (59 and 86 degrees F). This medicine may cause harm and if it is taken by other adults, children, or pets. R eturn medicine that has not been used to an official disposal site. Contact the [facility] at [phone] or your [facility] government to find a site. If you cannot return the medicine, flush it down the toilet. Do not use the medicine after the expiration date. What should I tell my health care provider before I take this medicine? They need to know if you have any of these conditions: brain tumor Crohn's disease, inflammatory bowel disease, or ulcerative colitis drug abuse or addiction head injury heart or circulation problems if you often drink alcohol kidney disease or problems going to the bathroom liver disease lung disease, asthma, or breathing problems an unusual or allergic reaction to acetaminophen, hydrocodone, other opioid analgesics, other medicines, foods, dyes, or preservatives or trying to get breast-feeding What should I watch for while using this medicine? Tell your doctor or health healthcare applications analyst if your pain does not go away, if it gets wors e, or if you have new or a different type of pain. You may develop tolerance to the medicine . Tolerance means that you will need a higher dose of the medicine for pain relief. Toleranc e is normal and is expected if you take the medicine for a long time. Do not suddenly stop taking your medicine because you may develop a severe reaction. Your b daron becomes used to the medicine. This does NOT mean you are addicted. Addiction is a behavi or related to getting and using a drug for a non-medical reason. If you have pain, you have a medical reason to take pain medicine. Your doctor will tell you how much medicine to take. If your doctor wants you to stop the medicine, the dose will be slowly lowered over time to avoid any side effects. There are different types of narcotic medicines (opiates). If you take more than one type a t the same time or if you are taking another medicine that also causes drowsiness, you may h ave more side effects. Give your health care provider a list of all medicines you use. Your doctor will tell you how much medicine to take. Do not take more medicine than directed. Charles l emergency for help if you have problems breathing or unusual sleepiness. Do not take other medicines that contain acetaminophen with this medicine. Always read bry siegel carefully. If you have questions, ask your doctor or pharmacist. If you take too much acetaminophen get medical help right away. Too much acetaminophen can be very dangerous and cause liver damage. Even if you do not have symptoms, it is important to get help right away. You may get drowsy or dizzy. Do not drive, use machinery, or do anything that needs mental alertness until you know how this medicine affects you. Do not stand or sit up quickly, raul cially if you are an older patient. This reduces the risk of dizzy or fainting spells. Alcoh ol may interfere with the effect of this medicine. Avoid alcoholic drinks. The medicine will cause constipation. Try to have a bowel movement at least every 2 to 3 da ys. If you do not have a bowel movement for 3 days, call your doctor or health care professi onal. Your mouth may get dry. Chewing sugarless gum or sucking hard candy, and drinking plenty of water may help. Contact your doctor if the problem does not go away or is severe. NOTE:This sheet is a summary. It may not cover all possible information. If you have questi ons about this medicine, talk to your doctor, pharmacist, or health care provider. Copyright 2020 [employer] documented in this encounter Medications at Time [...] | | Take 1 tablet by | 25 | 0 | 03/20/20 | | | HYDROcodone-acetamin | mouth every 6 hours | tablet | | 20 | 0 | | ophen (NORCO) 5-325 | as needed for Pain. | | | | | | mg per tablet | | | | | | [...] documented as of this encounter Progress Notes Nuria Barton RN - 03/20/2020 3:27 PM PDTdischarge instruction given to pt and mom eleanor r the phone. Both state understanding. Pt met discharge criteria. Discharged home via wheelc hair. Nuria Barton RN 3:28 PM PDT documented in this e ncounter H&P Notes She Huang, DO - 03/20/2020 12:[address] [facility] Service: Otolaryngology Pre-Operative History & Physical DIAGNOSIS: Cervical lymphadenopathy, supraclavicular lymphadenopathy INDICATION: As above PROCEDURE: Excisional biopsy right deep cervical lymph node CHIEF COMPLAINT: Enlarged cervical lymph nodes History Obtained From: History obtained from the patient. HISTORY OF PRESENT ILLNESS The patient is 29 y.o. male who presents for evaluation regarding cervical lymphadenopathy. He notes that the lymph nodes have been present for at least 1 month. He states that he aaron s swollen lymph nodes on both sides of neck after having pneumonia. He has had night sweats and unintentional weight loss. He notes that he is lost at least 30 pounds within the past 6 months. He denies fever. No family history of lymphoma. He is currently on Augmentin with out improvement of his lymphadenopathy. He had a PET scan done 03/16/2020 which reveals exte nsive lymphadenopathy. No dysphagia or hoarseness. No biopsy has been performed. He is a former smoker. He has also been referred to Dr. Wilton Jeff from hematology/oncology. Duration: 1 month Progression since onset: stable Associated symptoms: enlarged lymph nodes. 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 No pertinent surgical history. History [...] week Types: Marijuana Comment: edibles and smoking Allergies: No Known Allergies Social History Socioeconomic History Marital status: Single [...] file Gets together: Not on file Attends oriental orthodox service: Not on file Active member of [...] file Social History Narrative Not on file PHYSICAL EXAM Vital Signs: Vitals: 03/20/20 1207 BP: 146/76 Pulse: 101 Resp: 16 Temp: 36.7 C (98 F) ; Physical Exam General: healthy, alert, appears stated age, voice [...] Gilliam Richard Sign Date/Time: 03/16/2020 12:17 PM DATA Recent Results (from the past 24 hour(s)) POC Coronavirus (COVID-19) NAAT Result Value Ref Range POC SOURCE Nares SARS coronavirus 2 RNA (POC) Negative Negative Internal QC Acceptable Acceptable PROBLEM LIST Patient Active Problem List Diagnosis Cervical lymphadenopathy Supraclavicular adenopathy ASSESSMENT & PLAN 1. Patient is a 29 y.o. male with above specified procedure planned. 2. Procedure options, risks, benefits and alternatives reviewed with the patient who expre ss(es) understanding. Any and all questions were answered to their satisfaction. Primary Care Physician: MD She Frank DO 03/20/2020 documented in thi s encounter Miscellaneous Notes Op Note - She Huang DO - 03/20/2020 1:53 PM PDT [facility] Service: Otolaryngology (ENT) Operative Note Pre-operative Diagnosis: Cervical lymphadenopathy, supraclavicular lymphadenopathy Post-operative Diagnosis: Same, concerning for Hodgkin's lymphoma Procedure(s): Excisional biopsy right deep cervical lymph node Surgeon: She Huang DO [facility] Director(s): None Anesthesia: General endotracheal anesthesia Estimated Blood Loss: less than 50 Other: Specimens: 1.: Right deep cervical lymph node level 3. #2 right deep cervical lym ph node level 3 Indications: See pre-operative history and physical Findings: Matted lymph nodes throughout the right jugulodigastric chain. Frozen section re vealed possible Hodgkin's lymphoma. Specimen sent for lymphoma protocol. Complications: None Description of Procedure: The patient was identified in the preoperative holding area on . Informed consent was signed. The right neck was marked. The patient was brought ba to operative suite #[address] [facility]. They were placed in the supine p osition. Gen. anesthesia was induced by IV and the patient was endotracheally intubated. A shoulder roll was placed to induce neck extension. An incisional [facility]. This measured approximately 4.5 cm in length and was placed in a natural skin cre ase along the relaxed skin tension lines. Timeout performed. Then, 1% lidocaine with epine phrine of concentration 1:100,000 was infiltrated in the subcutaneous plane of the previousl y marked site. Patient was prepped and draped in the usual sterile fashion. After the medi cation took effect, a #15 blade was utilized to make a skin incision through skin down throu subcutaneous tissues. This was done until the platysma was identified. The platysma was then divided with Bovie electrocautery. Attention was then turned to evaluation of the ly mph nodes. Dissection was carried between the sternocleidomastoid muscle down to the internal affairs investigator al jugular vein on the right. Immediately posterior to the right internal jugular vein, the re were several matted lymph nodes which appeared to be adherent to the surrounding structur es. Using a combination of blunt dissection and bipolar electrocautery several lymph nodes were dissected and delivered free from the incisional site. The lymph node was sent to path ology for evaluation. The incisional site was then copiously irrigated with sterile water. Closure was then undertaken. The deep subcutaneous tissues and platysma were reapproximate d with 3-0 and 4-0 Vicryl suture in an interrupted fashion. The skin edges were reapproxima akbar with 5-0 Monocryl suture in a running subcuticular stitch. Steri-Strips and Mastisol we re placed for complete closure of the wound. The [facility] was then [facility] care returned to the anesthesia team. The patient was successfully ext ubated in the operating room and transferred to postanesthesia care unit in stable condition having tolerated the procedure well. Condition: stable She Huang DO 03/20/2020 1:54 PM PDT documented in thi s encounter [...] [place] | | | | | | [address] | | | | | | | | +--------+ + + + + | 06/29/ | Office | Oncology | Wilton Jeff MD | | 2019 | Visit | | [address] | | | | | | [place] | | | | | | [address] | | | | | | | | | | | | [place], | | | | | | [address] | | | | | [address] | | | | | | [place] [address] | | | | | | [phone] | | | | | | | | +--------+ + + + + | 06/29/ | Appointment | Infusion Therapy | Wilton Jeff MD | | | 2019 | | | [address] | | | | | | [place] | | | | | | [address] | | | | | | | | +--------+ + + + + | 07/14/ | Office | Otolaryngology | She Huang | | | 2019 | Visit | | DO Sophia Canela | | | | | | [address] | | | | | | [place] [address] | | | | | | [phone] | | | | | | | | +--------+ + + + + | 07/20/ | Appointment | Infusion Therapy | Wilton Jeff MD | | | 2019 | | | [address] | | | | | | [place] | | | | | | [address] | | | | | | | | +--------+ + + + + | 07/20/ | Office | Oncology | Wilton Jeff MD | | | 2019 | Visit | | [address] | | | | | | [place] | | | | | | [address] | | | | | | | | +--------+ + + + + | 07/20/ | Appointment | Infusion Therapy | Wilton Jeff MD | | | 2019 | | | [address] | | | | | | [place] | | | | | | [address] | | | | | | | | +--------+ + + + + | 08/17/ | Appointment | Infusion Therapy | Wilton Jeff MD | | | 2019 | | | [address] | | | | | | [place] | | | | | | [address] | | | | | | | | +--------+ + + + + | 08/17/ | Office | Oncology | Wilton Jeff MD | | | 2019 | Visit | | [address] | | | | | | [place] | | | | | | [address] | | | | | | | | +--------+ + + + + documented as of this encounter Procedures + +--------+ + + + | Procedure Name | Priori | Date/Time | Associated Diagnosis | Comments | | | ty | | | | + +--------+ + + + | SURGICAL PATHOLOGY | Routin | 03/20/2020 | Cervical | Results for this | | EXAM | e | 1:07 PM | lymphadenopathy | procedure are in the | | | | PDT | Supraclavicular | results section. | | | | | adenopathy | | + +--------+ + + + | BIOPSY CERVICAL NODE | | 03/20/2020 | Cervical | | | | | 12:13 PM | lymphadenopathy | | | | | PDT | Supraclavicular | | | | | | adenopathy | | + +--------+ + + + documented in this encounter Results Surgical Pathology Exam (03/20/2020 1:07 PM PDT) + + | Specimen | + + | Tissue - Lymph node | | sample (specimen) | + + | Soft tissue sample | | (specimen) - Lymph | | node sample | | (specimen) | + + + + + | Narrative | Performed At | + + + | THIS IS | [facility] | | AN ADDENDUM REPORT SPECIMEN(S): A RT DEEP CERVICAL LYMPH NODE | [facility] | | LEVEL 3SPECIMEN(S): B RT DEEP CERVICAL LYMPH NODE LEVEL 3SPECIMEN(S): | | | C B T CELL FLOW ONLY SPECIMEN SOURCE:A. RT DEEP CERVICAL LYMPH NODE | | | LEVEL 3B. RT DEEP CERVICAL LYMPH NODE LEVEL 3C. B T CELL FLOW ONLY | | | CLINICAL HISTORY:R59.0 (localized enlarged lymph nodes) FROZEN SECTION | | | DIAGNOSIS:A. Right deep cervical lymph node level three:- Normal | | | nodes, deferred to specimen B. (Dr. Howard, 03/20/20, 1:30, p.m.) | | | Frozen section diagnoses called to Dr. Huang at 1:30, p.m.JS | | | (under the direct supervision of a pathologist) FINAL PATHOLOGIC | | | DIAGNOSIS:A. Right deep cervical lymph node level 3, biopsies:- | | | Portion of lymphoid tissue and surrounding fat with paracortical | | | expansion of T cells and histiocytes.- Negative for definite | | | features of lymphoma. B. Right deep cervical lymph node level 3, | | | excision:- Diffuse large B cell lymphoma. See comment. COMMENT:(B) | | | In summary the lymph node architecture is effaced by neoplastic | | | infiltrate of large atypical B lymphocytes showing a diffuse pattern | | | accompanied by background of delicate fibrosis and areas ofnecrosis. | | | Some of these neoplastic cells have pleomorphic nuclei with | | | occasional cells have multilobated nuclei. Many of the cells have | | | abundant pale cytoplasm. By immunophenotype the | | | neoplasticlymphocytes are of B phenotype expressing CD20 and other B | | | cell markers, including CD79a, BCL6, and PAX5. The lymphoma also shows | | | expression of CD23 and CD30 (35%). Scattered large cells | | | showpositivity for CD15. Overall the morphology and immunophenotype | | | are consistent with diffuse large B-cell lymphoma. 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 | | | However, clinical correlation is strongly advised for this | | | classification. FISH study to rule out double-hit lymphoma is | | | pending and the results will be reported in an addendum. Preliminary | | | findings are discussed with Dr. Jeff on 03/27/2020. This case is | | | dictated and reviewed by Franko Davis M.D., Board Certified | | | Hematopathologist. Also, as part of advanced quality engineer this case is | | | reviewed by a second member of our staff, Gloria Lundberg M.D., Board | | | Certified Hematopathologist. AMB:NA:TP:emh:vlg:C1NRA small population | | | of atypical B-cells without detectable surface or cytoplasmic light | | | chain expression is observed (3% of lymphocytes). The significance | | | of this finding requires morphologiccorrelation. Consider repeat | | | flow cytometry analysis with a new sample if morphologic findings are | | | unclear. FLOW CYTOMETRY ANALYSIS:FLOW DIFFERENTIAL (% Total | | | CD45 vs. SSC gating): Lymphoid 62%; Debris 36%. Cell Count: 4.8 x | | | 10*2/uL. Total Viability: 85% POPULATION ANALYSIS: LYMPHOID CELLS: The | | | lymphocyte gate comprises 62% of total events and includes 93% | | | T-cells with a CD4:CD8 ratio of 0.6:1 and normal peralta T-cell antigen | | | expression. 4% of lymphocytes are B-cells. Anatypical B-cell | | | population is detected (3% of lymphocytes, 2% of total events) | | | demonstrating increased SSC and expressing CD45 MOD, CD19 MOD, CD20 | | | BR, CD38 DIM (variable) and FMC7 MOD while negativefor CD5, CD10 and | | | CD23 with indeterminate light chain expression. The remainders are | | | NK-cells.PLASMA CELLS: A significant plasma cell population is not | | | detected in the neg-dimCD45/CD38 screening gate. ANTIBODIES | | | USED:KAPPA, LAMBDA, CD20, CD10, CD19, CD23, CD38, FMC7, CD16, CD56, | | | CD8, CD5, CD2, CD4, CD7, CD3, CD45, ckappa, clambda, 7AAD: TOTAL | | | ANTIBODIES USED: 20. TCS FLOW CYTOMETRY:Flow cytometry analysis, right | | | cervical lymph node:- Atypical B-cell population detected.- See | | | Comment. MICROSCOPIC EXAMINATION:A. Immunohistochemical stains are | | | performed on block (A1) (with appropriately reactive control) and show | | | the following results: CD20: Highlights few lymphoid follicles with | | | normal distribution at the periphery of the lymph node.CD3: | | | Highlights many T lymphocytes within interfollicular areas. B. | | | Sections demonstrate multiple portions of lymph nodes with extensive | | | areas of necrosis. The lymph node architecture is effaced by | | | atypical neoplastic infiltrate. There are scattered largeatypical | | | cells with irregular nuclear contour and prominent nucleoli seen. | | | Some of these cells resemble Hodgkin's cell variants. In the | | | background are many smaller lymphocytes; some are atypicalwith | | | irregular nuclear contour. Immunohistochemical stains are performed | | | on block (B1) (with appropriately reactive control) and show the | | | following results: CD20: Strongly positive in most of the lymphoid | | | tissue, including large atypical lymphocytes. CD79a: Diffusely | | | positive in neoplastic lymphocytes.PAX5: Positive in neoplastic B | | | lymphocytesBCL6: Positive in subset of B cells, including large | | | cells.CD23: Positive In many clusters of large cells.CD30: | | | Positive in many cells, including atypical large lymphocytes (35% of | | | cells).CD15: Positive in scattered large cells.BCL-2: Positive in | | | subset of large neoplastic lymphocytes, and many T cell sin the | | | background.MUM-1: Positive in subset of large cells ( 20%).CD3: | | | Shows numerous scattered T lymphocytes in the background, negative | | | in large atypical cells.CD43: Shows numerous scattered T lymphocytes | | | in the background, negative in large atypical cells.CD10: | | | Negative.CD21: Negative.ABRAM: Negative in large cells.Oct-2: | | | Negative in large atypical cells.PD-1: Positive in scattered T | | | cells.CD4: Positive in T cells in the background.Cyclin D1: | | | Negative. C-Myc: Negative Ki-67: Positive in 60% of cells, | | | including large atypical cells In situ hybridization is also | | | performed on block (B1) (with appropriately reactive control) and | | | shows the following features:Ugo-MJ: Negative.Ugo-KAPPA: | | | Negative.Ugo-LAMBDA: Negative. NA:vlg GROSS DESCRIPTION:Two | | | specimens are received in two containers, labeled "DS." A. The | | | specimen, labeled "DS, right deep cervical lymph node level three," is | | | received fresh for frozen section diagnosis and consists of two | | | fragments that measure up to 1.3 cm in diameter. Pieceof each is | | | frozen. After frozen section evaluation remaining of the Ki-67: | | | Positive in 60% of cells, including large atypical cells tissue is | | | entirely submitted in single cassette (A1). Theremaining of the | | | tissue within the container is entirely submitted in single cassette | | | (A2). B. The specimen, labeled "DS, right deep cervical lymph node | | | level three," is received in formalin and consists of pink-del real, | | | previously sectioned tissue fragment that measures 1.0 x 0.9 x 0.9 | | | cmaggregate. The specimen is evaluated by touch prep by Dr. Howard. | | | Specimen is a suspicious polyp, lymphoma workup to be done. Part | | | of the specimen is in RPMI then sent and ran for lymphoma triage per | | | Dr. Howard. Specimen is entirely submitted in cassette (B1). | | | ADDITIONAL NOTES:This test was developed and its performance | | | characteristics determined by [facility]. It has not been | | | cleared or approved by the US Food and Drug Administration. The FDA | | | does not require thistest to go through premarket FDA review. This | | | test is used for clinical purposes. It should not be regarded as | | | investigational or for research. This laboratory is certified under | | | the ClinicalLaboratory Improvement Amendments (CLIA) as qualified to | | | perform high complexity clinical laboratory | | | testing.Immunohistochemical and/or in situ hybridization studies were | | | performed on this case with the appropriate positive controls that | | | react as expected. This test was developed and its | | | performancecharacteristics determined by [facility]. It has | | | not been cleared or approved by the U.S. Food and Drug Administration. | | | The FDA has determined that such clearance or approval is not | | | necessary. This test is used for clinical purposes. It should not | | | be regarded as investigational or for research. [facility] | | | is certified under the Clinical Laboratory ImprovementAmendments of | | | 1988 (CLIA) as qualified to perform high complexity clinical | | | laboratory testing. PERFORMING LABORATORY:The technical component of | | | the flow cytometry was performed by [facility], [address] | | [place] [address] (Corporate Counselor: Arnie | | | Alba Petersen; CLIA#: [id number]).Professional interpretation of the | | | flow cytometry was performed by [facility], [address] | | | [facility], [facility] [address] [place] [address] | | | (Corporate Counselor: Johnie Navas M.D.; CLIA#: [id number]). | | | IMAGES: [id number]: [id number]: [id number] FINAL DIAGNOSIS | | | PERFORMED BY: Gloria Lundberg MD, Pathologist Mar 23 2020 6:07PMFrozen | | | [facility] diagnosis [facility] | | [address] [address] (Medical | | | Director: Lupillo Christian M.D.; CLIA#: [id number]).The technical | | | component was performed by [facility], [address] [place] [address], | | | [place] [address] (Corporate Counselor: Chiara Howard MD; CLIA# | | | [id number]). Professional interpretation was performed by [facility] | | | [address], | | | [place] [address] (Corporate Counselor: Lupillo Christian M.D.; CLIA#: | | | [id number]). REASON FOR ADDENDUM:To add results of additional | | | testing. Right deep cervical lymph node, High-Grade/Large B-Cell | | | Lymphoma FISH: Results: Not Detected Interpretation:MYC (8q24) | | | rearrangement: Not detected.MYC/IgH rearrangement t(8;14): Not | | | detected. ATYPICAL (see below).BCL2 (18q21) rearrangement: Not | | | detected.BCL6 (3q27) rearrangement: Not detected. No evidence of MYC | | | or MYC/IgH rearrangement is detected. In the setting of diffuse large | | | B-cell lymphoma, this result likely excludes a high grade B-cell | | | lymphoma with MYC and BCL2 and/or ITF4ufguwlvqwessmp (i.e. "double | | | hit" or "triple hit" lymphoma). Interphase FISH was performed with the | | | dual color MYC break-apart probe set and MYC/IgH/CEP 8 tri-color dual | | | fusion probe set. No evidence of a MYC or MYC/IgH rearrangement is | | | detected, although the MYC/IgH probe set did detect increased IgH | | | signals (2R>2G2A, 24% of analyzed nuclei, positive cutoff >16.2%), | | | indicatory of a IgH gain, gain of 14q or chromosome 14, or IgH | | | rearrangement with a geneother than Bcl2, Bcl6, or MYC. Interphase | | | FISH was also performed with dual color, break-apart Bcl2 and Bcl6 | | | probe sets to detect Bcl2 and Bcl6 gene rearrangements, respectively. | | | No evidence of Bcl2or Bcl6 gene rearrangement is detected. Probe Set | | | Detail:MYC/IgH/CEN8 t(8;14): nuc ugo(CEP8x2,MYCx2,IGHx2>2)[] BCL2 | | | (18q21): nuc ugo(BCL2x2)[50] BCL6 (3q27): nuc ugo(BCL6x2)[50] MYC | | | (8q24): nuc ugo(MYCx2)[50] Nuclei Scored: 50 Probe set: MYC/IgH/CEN8 | | | t(8;14), BCL2 (18q21), BCL6 (3q27), MYC (8q24)Scoring method: | | | ManualCPT Code: 98937# of Units: 4 [facility]. | | | Ananth Aviles, Pathologist All controls were within expected ranges. | | | The Technical Component Processing and Analysis of this test was | | | completed at [facility], [address] [place] [address], [place] / | | | [phone] / [phone] / CLIA #[id number] / Corporate Counselor(s):Mya | | | Ananth Kim The Professional Component of this test was completed | | | at [facility], [address] [place] [address] [place], [place] | | | [address] / / .(Accession / Case | | | No: [id number] / [id number]). [facility] FISH test uses | | | either FDA cleared and/or analyte specific reagent (ASR) probes. This | | | test was developed and its performancecharacteristics determined by | | | [facility] in [place], [place]. It has not been cleared | | | or approved by the U.S. Food and Drug Administration (FDA). The FDA | | | has determined that suchclearance or approval is not necessary. This | | | test is used for clinical purposes and should not be regarded as | | | investigational or for research. This laboratory is regulated under | | | CLIA '88 as qualified to perform high complexity testing. Interphase | | | FISH does not include examination of the entire chromosomal | | | complement. Clinically significant anomalies detectable by routine | | | banded cytogeneticanalysis may still be present. Consider reflex | | | banded cytogenetic analysis. Images that may be included within this | | | report are associate sales representative of the patient but not all testing in its | | | entirety andshould not be used to render a result. The CPT codes | | | provided with our test descriptions are based on AMA guidelines and | | | are for informational purposes only. Correct CPT coding is the | | | soleresponsibility of the billing constitution party. Please direct any questions | | | regarding coding to the payer being billed. Diagnostician: Franko | | | Ryan MARTINES, FACPPathologistDiagnostician: Chiara Ruiz Backer | | | MDPathologistElectronically Signed 04/07/2020 | | | | | |All controls were within expected ranges. | | | | | |The Technical Component Processing and Analysis of this test was completed at [facility], [address] [place] [address] / [id number] / [phone] / CLIA #[id number] / Corporate Counselor(s): | | |Mya Kim M.D. The Professional Component of this test was completed at [facility], [address] [facility] [address] / / . | | |(Accession / Case No: [id number] / [id number]). [facility] FISH test uses ei ther FDA cleared and/or analyte specific reagent (ASR) probes. This test was developed and i ts performance | | |characteristics determined by [facility] in [place], [place]. It has not been cleared or approved by the U.S. Food and Drug Administration (FDA). The FDA has determined t hat such | | |clearance or approval is not necessary. This test is used for clinical purposes and should not be regarded as investigational or for research. This laboratory is regulated under CLIA '88 as qualified | | | | | |to perform high complexity testing. Interphase FISH does not include examination of the ent espinoza chromosomal complement. Clinically significant anomalies detectable by routine banded cy togenetic | | |analysis may still be present. Consider reflex banded cytogenetic analysis. Images that may be included within this report are associate sales representative of the patient but not all testing in its entirety and | | |should not be used to render a result. The CPT codes provided with our test descriptions ar e based on AMA guidelines and are for informational purposes only. Correct CPT coding is the sole | | |responsibility of the billing constitution party. Please direct any questions regarding coding to the pa darius being billed. | | | | | |Diagnostician: Franko Davis MD, FACP | | |Pathologist | | |Diagnostician: Chiara Howard MD | | |Pathologist | | |Electronically Signed 04/07/2020 | | | | | | | | + + + + +---------+ + + | Performing | Address | City/State/Zipcode | Phone Number | | Organization | | | | + +---------+ + + | [facility] | | | | | [facility] | | | | + +---------+ + + documented in this encounter Visit Diagnoses + + | Diagnosis | + + | Cervical lymphadenopathy Enlargement of lymph nodes | + + | Supraclavicular adenopathy Enlargement of lymph nodes | + + documented in this encounter Admitting Diagnoses + + | Diagnosis | + + | Cervical lymphadenopathy Enlargement of lymph nodes | + + | Supraclavicular adenopathy Enlargement of lymph nodes | + + documented in this encounter Administered Medications + +--------+---------+------+------+------+ | Medication Order | MAR | Action | Dose | Rate | Site | | | Action | Date | | | | + +--------+---------+------+------+------+ + +---+ | acetaminophen (TYLENOL) 160 | | | mg/5 mL liquid 500 mg 500 mg, | | | Oral, ONCE PRN, Pain, Starting | | | Mon03/20/20 at 1336, For 1 dose, | | | One time if none given within 4 | | | hours., Recovery/Phase I | | + +---+ | | | + +---+ | acetaminophen (TYLENOL) | | | suppository 650 mg 650 mg, | | | Rectal, ONCE PRN, Pain, Starting | | | Mon03/20/20 at 1336, For 1 dose, | | | One time if unable to take oral | | | and none given within 4 hours., | | | Recovery/Phase I | | + +---+ | | | + +---+ | acetaminophen (TYLENOL) tablet | | | 500 mg 500 mg, Oral, ONCE PRN, | | | Pain, Starting Mon03/20/20 at | | | 1336, For 1 dose, One time if | | | none given within 4 hours., | | | Recovery/Phase I | | + +---+ | | | + +---+ | albuterol 2.5 mg/3 mL nebulizer | | | solution 2.5 mg 2.5 mg, | | | Nebulization, ONCE PRN, Wheezing, | | | Starting Mon03/20/20 at 1336, | | | For 1 dose, Notify anesthesia if | | | patient is wheezing and does not | | | have a history of asthma or COPD | | | or current smoking., | | | Recovery/Phase I | | + +---+ | | | + +---+ + +---------+ +---+---+---+ | balanced electrolytes in water | New Bag | 03/20/20 | | | | | (PLASMALYTE-148/NORMOSOL-R) | | 20 12:28 | | | | | infusion at 30 mL/hr, | | PM PDT | | | | | Intravenous, CONTINUOUS, Starting | | | | | | | Mon03/20/20 at 1215, Pre-op | | | | | | + +---------+ +---+---+---+ +---------+ +---+ +---+ | New Bag | 03/20/20 | | 30 mL/hr | | | | 20 12:20 | | | | | | PM PDT | | | | +---------+ +---+ +---+ + +---+ | | | + +---+ | dextrose 50% injection 12.5-25 | | | g 12.5-25 g, Intravenous, EVERY | | | 15 MIN PRN, Low Blood Sugar, For | | | hypoglycemia. Give 12.5g (25ml) | | | IV if blood glucose 50-69 | | | mg/dL. Give 25g (50ml) IV if | | | blood glucose < 50, Starting Fri | | | 03/20/20 at 1336, Give over 2 min. | | | Repeat in 15 min if blood | | | glucose remains < 70 mg/dL. | | | Repeat blood glucose in 30 min | | | once blood glucose > 70., | | | Recovery/Phase I | | + +---+ | | | + +---+ + +-------+ +--------+---+---+ | fentaNYL (PF) injection 25-50 | Given | 03/20/20 | 25 mcg | | | | mcg 25-50 mcg, Intravenous, | | 20 2:27 | | | | | EVERY 5 MIN PRN, Pain, Initial | | PM PDT | | | | | postop medication for URGENT PAIN | | | | | | | OR ESCALATING PAIN, Starting Fri | | | | | | | 03/20/20 at 1336, For 4 doses, | | | | | | | First dose must be lowest dose. | | | | | | | Use Pasero Sedation Scale. | | | | | | | [Opioid tolerant = One week or | | | | | | | longer, gehmme-bub-mvyin use of | | | | | | | at least the following DAILY | | | | | | | dose: 60mg oral morphine, 60mg | | | | | | | oral hydrocodone, 30mg oral | | | | | | | oxycodone, 8mg oral | | | | | | | hydromorphone, fentanyl patch | | | | | | | 25mcg/hr, or equivalent dose of | | | | | | | another opioid], Recovery/Phase I | | | | | | + +-------+ +--------+---+---+ + +---+ | | | + +---+ | hydrALAZINE (APRESOLINE) | | | injection 5 mg 5 mg, | | | Intravenous, EVERY 20 MINUTES | | | PRN, For SBP > 180, DBP > 100, | | | Starting 03/20/20 at 1336, | | | Hold if HR > 100. Maximum total | | | dose 40 mg. Use labetalol first | | | if available., Recovery/Phase I | | + +---+ | | | + +---+ + +-------+ +--------+---+---+ | HYDROmorphone (DILAUDID) | Given | 03/20/20 | 0.4 mg | | | | injection 0.2-0.6 mg 0.2-0.6 mg, | | 20 2:42 | | | | | Intravenous, EVERY 5 MIN PRN, | | PM PDT | | | | | Pain, Starting Mon03/20/20 at | | | | | | | 1336, First dose must be lowest | | | | | | | dose, can increase subsequent | | | | | | | doses by 0.2mg within dosing | | | | | | | range. If patient meets opioid | | | | | | | tolerant definition, can start | | | | | | | with 0.4mg dose. [Maximum total | | | | | | | PACU dose 2 mg] Use Pasero | | | | | | | Sedation Scale. [Opioid tolerant | | | | | | | = One week or longer, | | | | | | | thexoc-xsx-omark use of at least | | | | | | | the following DAILY dose: 60mg | | | | | | | oral morphine, 60mg oral | | | | | | | hydrocodone, 30mg oral oxycodone, | | | | | | | 8mg oral hydromorphone, fentanyl | | | | | | | patch 25mcg/hr, or equivalent | | | | | | | dose of another opioid], | | | | | | | Recovery/Phase I | | | | | | + +-------+ +--------+---+---+ +-------+ +--------+---+---+ | Given | 03/20/20 | 0.4 mg | | | | | 20 2:37 | | | | | | PM PDT | | | | +-------+ +--------+---+---+ | Given | 03/20/20 | 0.2 mg | | | | | 20 2:32 | | | | | | PM PDT | | | | +-------+ +--------+---+---+ +---+---+ | | | +---+---+ + +-------+ +-------+---+---+ | ketorolac (TORADOL) injection | Given | 03/20/20 | 30 mg | | | | 30 mg 30 mg, Intravenous, ONCE | | 20 2:22 | | | | | PRN, Pain, Starting Mon03/20/20 | | PM PDT | | | | | at 1336, For 1 dose, If no NSAIDs | | | | | | | within past 6 hours (note: this | | | | | | | counts as the "first" postop dose | | | | | | | if ketorolac ordered on postop | | | | | | | orders), Recovery/Phase I | | | | | | + +-------+ +-------+---+---+ + +---+ | | | + +---+ | labetalol (TRANDATE) 5 mg/mL | | | injection 5 mg 5 mg, | | | Intravenous, EVERY 5 MIN PRN, For | | | SBP > 180, DBP > 100, Starting | | | 03/20/20 at 1336, Hold if HR < | | | 60. Maximum total dose 300mg. | | | Notify anesthesia if patient | | | requires more than 50mg., | | | Recovery/Phase I | | + +---+ | | | + +---+ | meperidine (DEMEROL) injection | | | 12.5 mg 12.5 mg, Intravenous, | | | PRN, Shivering, Starting Fri | | | 03/20/20 at 1336, For 2 doses, May | | | Repeat once in 5 min., | | | Recovery/Phase I | | + +---+ | | | + +---+ + +-------+ +------+---+---+ | ondansetron (ZOFRAN) injection | Given | 03/20/20 | 4 mg | | | | 4 mg 4 mg, Intravenous, ONCE | | 20 2:16 | | | | | PRN, Nausea, Vomiting, Starting | | PM PDT | | | | | 03/20/20 at 1337, For 1 dose, | | | | | | | Recovery/Phase I | | | | | | + +-------+ +------+---+---+ +---+---+ | | | +---+---+ + +-------+ +------+---+---+ | oxyCODONE (ROXICODONE) tablet 5 | Given | 03/20/20 | 5 mg | | | | mg 5 mg, Oral, ONCE PRN, Pain, | | 20 3:17 | | | | | Starting Mon03/20/20 at 1336, For | | PM PDT | | | | | 1 dose, If able to take oral | | | | | | | medication., Recovery/Phase I | | | | | | + +-------+ +------+---+---+ + +---+ | | | + +---+ | prochlorperazine (COMPAZINE) | | | injection 10 mg 10 mg, | | | Intravenous, EVERY 6 HOURS PRN, | | | Nausea, Vomiting, Starting Fri | | | 03/20/20 at 1336, Use Ondansetron | | | first if both are ordered., | | | Recovery/Phase I | | + +---+ | | | + +---+ documented in this encounter
--- OUTSIDE RECORDS SUMMARY | ~2020-06-23 | XMS | Encounter Summary ---
Demographics + + + | Address | [address] | | | [place] [address] | + + + | Home Phone [...] Author + + + | Author | [facility] | | | and [place] | + + + | Organization | [facility] | | | [...] Providers + +------+ + | Care Network Control Operator Name | Role | Phone | [...] | | | | regions | [place] [address] | [place] [address] | | | | | (HCC) | Phone: | [place] | | | | | Procedures | [phone] | [address] | | | | | [place] [employer] | Fax: | Phone: | | | | | | [phone] | [phone] | | | | | RECOMBINANT, | | Fax: | | | | | 1 MG PORT | | [phone] | | | | | FLUSH | | | +--------+--------+ + + + + Encounter Details +--------+ + + + + | Date | Type | Department | Care Team | Description | +--------+ + + + + | 04/27/ | Hospital | [facility] | Wilton Jeff MD | Mediastinal large | | 2020 | Encounter | INFUSION SUPPORT | [address] | B-cell lymphoma of | | | | SERVICES [address] | [place], [place] | lymph nodes of | | | | [address] [place] | [address] | multiple regions | | | | [address] [place] | | (HCC) (Primary Dx); | | | | [address] | Marilou Frost | Diffuse large B-cell | | | | [phone] | A, RN | lymphoma of lymph [...] Sore | | | | | | [id number] | Throat. | | | | | [...] 8:15 AM PDTPort accessed for lab draw. lawn care technician nique maintained throughout procedure. Saline locked, [...] [place] | | | | | | [id number] | | | | | | | | +--------+ + + + + | 06/29/ | Office | Oncology | Wilton Jeff MD | | 2019 | Visit | | [address] | | | | | | [place] | | | | | | [address] | | | | | | | | | | | | Marilou Mcmullen, | | | | | | PLATE AND WELD INSPECTOR [address] | | | | | | [address] | | | | | | [place] [address] | | | | | | [phone] | | | | | | | | +--------+ + + + + | 06/29/ | Appointment | Infusion Therapy | Wilton Jeff MD | | | 2019 | | | [address] | | | | | | [place] | | | | | | [address] | | | | | | | | +--------+ + + + + | 07/14/ | Office | Otolaryngology | She Huang | | | 2019 | Visit | | DO Sophia Canela | | | | | | [place] [address] | | | | | | [place] [address] | | | | | | [phone] | | | | | | | | +--------+ + + + + | 07/20/ | Appointment | Infusion Therapy | Wilton Jeff MD | | | 2019 | | | [address] | | | | | | [place] | | | | | | [address] | | | | | | | | +--------+ + + + + | 07/20/ | Office | Oncology | Wilton Jeff MD | | | 2019 | Visit | | [address] | | | | | | [place] | | | | | | [address] | | | | | | | [...] [place] | | | | | | [address] | | | | | | | | +--------+ + + + + | 08/17/ | Office | Oncology | Wilton Jeff MD | | | 2019 | Visit | | [address] | | | | | | [place] | | | | | | [address] | | | | | | | [...] | | Testing Performed at | | [employer] | | | | [facility], [address] [facility] | | LABORATORY | | | | [place], [address], | | | | | | [place] [address] | | | | + + + + + + + + | Specimen | + + | Blood | + + + + + + + | Performing | Address | City/State/Zipcode | Phone Number | | Organization | | | | + + + + + | REFERENCE LAB | [address] | [place] | [phone] | | [facility] | [address] | [address] | | | LABORATORY | | | | + + + + + | REFERENCE LAB | [address] | [place], [place] | | | [facility] | [address] | [address] | | | LABORATORY | | | [...] [place] | | | | | | [address] | | | | + + + + + + + + | Specimen | + + | Blood | + + + + + + + | Performing | Address | City/State/Zipcode | Phone Number | | Organization | | | | + + + + + | REFERENCE LAB | [address] [place] [address] | [place], [place] | [phone] | | [facility] | [address] | [address] | | | LABORATORY | | | | + + + + + | REFERENCE LAB | [address] | [place], [place] | | | [facility] | [address] | [address] | | | LABORATORY | | | [...]
--- OUTSIDE RECORDS SUMMARY | ~2020-06-23 | XMS | Encounter Summary ---
Demographics + + + | Address | [address] | | | [place] [address] | + + + | Home Phone | | + + + | Preferred Language | Unknown | + + + | Marital Status | Single | + + + | Rastafari Affiliation | Unknown | + + + | Race | White | + + + | Ethnic Group | Not or | + + + Author + + + | Author | [facility] | | | and [place] | + + + | Organization | [facility] | | [...] Team Providers + +------+ + | Care Return To Factory Clerk Name | Role | Phone | + [...] + + | 04/06/ | Telephone | [facility] | Tina Caedt RN | Other (Request for | | 2019 | | INFUSION SUPPORT | | admission to | | | | SERVICES [address] | | inpatient for | | | | [address] [place] | | chemotherapy) | | | | [address] [place] | | | | | | [address] | | | | | | [phone] | | | +--------+ + + + [...] 04/06/2020 1:36 PM PDTOutLook Email sent to [employer] [facility] Direct [facility] Notification: ONC DA Patient: Asad Longo : 1990 Dx: Mediastinal large B-Cell Lymphoma Provider Contact: Dr. Guerra Admit Date: EVENING 04/08/20 Chemo Date: 04/09/2020 Regimen: [id number]-EPOCH + Rituxan Q 21 days Notes: Rituxan given on Day 0 in clinic at [facility]. D1-5 given inpatient. D6 Udenyca given in clinic at [facility]. Cc: Zoë Almeida infusion credit negotiator: For future scheduling reference. documented in this [...] [place] | | | | | | [address] | | | | | | | | +--------+ + + + + | 06/29/ | Office | Oncology | Elodia Guerra MD | | | 2019 | Visit | | [address] | | | | | | [place] | | | | | | [address] | | | | | | | | | | | | Marilou Mcmullen, | | | | | | RIVET HEATER GAS [address] | | | | | | [address] | | | | | | [place] [address] | | | | | | [phone] | | | | | | | | +--------+ + + + + | 06/29/ | Appointment | Infusion Therapy | Elodia Guerra MD | | | 2019 | | | [address] | | | | | | [place] | | | | | | [address] | | | | | | | | +--------+ + + + + | 07/14/ | Office | Otolaryngology | She Huang | | | 2019 | Visit | | DO Sophia Canela | | | | | | [place] [address] | | | | | | [place] [address] | | | | | | [phone] | | | | | | | | +--------+ + + + + | 07/20/ | Appointment | Infusion Therapy | Elodia Guerra MD | | | 2019 | | | [address] | | | | | | [place] | | | | | | [address] | | | | | | | | +--------+ + + + + | 07/20/ | Office | Oncology | Elodia Guerra MD | | | 2019 | Visit | | [address] | | | | | | [place] | | | | | | [address] | | | | | | | | +--------+ + + + + | 07/20/ | Appointment | Infusion Therapy | Elodia Guerra MD | | | 2019 | | | [address] | | | | | | [place] | | | | | | [address] | | | | | | | | +--------+ + + + + | 08/17/ | Appointment | Infusion Therapy | Elodia Guerra MD | | | 2019 | | | [address] | | | | | | [place] | | | | | | [address] | | | | | | | | +--------+ + + + + | 08/17/ | Office | Oncology | Elodia Guerra MD | | | 2020 | Visit | | [address] | | | | | | [place] | | | | | | [address] | | | | | | | | +--------+ + + + + documented as of this encounter Visit Diagnoses Not on filedocumented in this encounter"
--- OUTSIDE RECORDS SUMMARY | ~2020-06-23 | XMS | Encounter Summary ---
Demographics + + + | Address | [address] | | | [place] [address] | + + + | Home Phone | | + + + | Preferred Language | Unknown | + + + | Marital Status | Single | + + + | Tenriism Affiliation | Unknown | + + + [...] Team Providers + +------+ + | Care Content Specialist Name | Role | Phone | + +------+ + | Myrna Mejia MD | PCP | | + +------+ + Encounter Details +--------+ + + + + | Date | Type | Department | Care Team | Description | +--------+ + + + + | 04/03/ | Orders Only | [facility] | Wilton Jeff MD | Mediastinal large | | 2019 | | HEMATOLOGY AND | [address] | B-cell lymphoma of | | | | ONCOLOGY [address] | [place], [place] | lymph nodes of | | | | [address] | [address] | multiple regions | | | | [place], [place] | | (HCC) (Primary Dx) | | | | [address] | | | | | | [phone] | | | +--------+ + + + [...] [place] | | | | | | [address] | | | | | | | | +--------+ + + + + | 06/29/ | Office | Oncology | Wilton Jeff MD | | | 2019 | Visit | | [address] | | | | | | [place] | | | | | | [address] | | | | | | | | | | | | Marilou Mcmullen, | | | | | | TWO WAY RADIO INSTALLER [address] | | | | | | [address] | | | | | | [place] [address] | | | | | | [phone] | | | | | | | | +--------+ + + + + | 06/29/ | Appointment | Infusion Therapy | Wilton Jeff MD | | | 2019 | | | [address] | | | | | | [place] | | | | | | [address] | | | | | | | | +--------+ + + + + | 07/14/ | Office | Otolaryngology | She Huang | | | 2019 | Visit | | DO Sophia Canela | | | | | | [place] [address] | | | | | | [place] [address] | | | | | | [phone] | | | | | | | | +--------+ + + + + | 07/20/ | Appointment | Infusion Therapy | Wilton Jeff MD | | | 2019 | | | [address] | | | | | | [place] | | | | | | [address] | | | | | | | | +--------+ + + + + | 07/20/ | Office | Oncology | Wilton Jeff MD | | | 2019 | Visit | | [address] | | | | | | [place] | | | | | | [address] | | | | | | | | +--------+ + + + + | 07/20/ | Appointment | Infusion Therapy | Wilton Jeff MD | | | 2019 | | | [address] | | | | | | [place] | | | | | | [address] | | | | | | | | +--------+ + + + + | 08/17/ | Appointment | Infusion Therapy | Wilton Jeff MD | | | 2019 | | | [address] | | | | | | [place] | | | | | | [address] | | | | | | | | +--------+ + + + + | 08/17/ | Office | Oncology | Wilton Jeff MD | | | 2020 | Visit | | [address] | | | | | | [place] | | | | | | [address] | | | | | | | | +--------+ + + + + documented as of this encounter Visit Diagnoses + + | Diagnosis | + + | 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
--- OUTSIDE RECORDS SUMMARY | ~2020-06-23 | XMS | Encounter Summary ---
Demographics + + + | Address | [address] | | | [place] [address] | + + + | Home Phone [...] | Author | [facility] | | | and [place] | + + + | Organization | [facility] | | | and [...] Team Providers + +------+ + | Care Offline Cutter Name | Role | Phone | + +------+ + | Myrna Mejia MD | PCP | | + +------+ + Encounter Details +--------+ + + + + | Date | Type | Department | Care Team | Description | +--------+ + + + + | 04/06/ | Orders Only | [facility] | Kesha Mcdaniel RP | | | 2020 | | HEMATOLOGY AND | | | | | | ONCOLOGY PHARMACY | | | | | | [address] | | | | | | [place] | | | | | | [address] | | | | | | [phone] | | | +--------+ + + + [...] [place] | | | | | | [address] | | | | | | | | +--------+ + + + + | 06/29/ | Office | Oncology | Wilton Jeff MD | | | 2019 | Visit | | [address] | | | | | | [place] | | | | | | [address] | | | | | | | | | | | | Marilou Mcmullen, | | | | | | MACHINE LEAD BURNER [address] | | | | | | [address] | | | | | | [place] [address] | | | | | | [phone] | | | | | | | | +--------+ + + + + | 06/29/ | Appointment | Infusion Therapy | Wilton Jeff MD | | | 2019 | | | [address] | | | | | | [place] | | | | | | [address] | | | | | | | | +--------+ + + + + | 07/14/ | Office | Otolaryngology | She Huang | | | 2019 | Visit | | DO Sophia Canela | | | | | | [place] [address] | | | | | | [place] [address] | | | | | | [phone] | | | | | | | | +--------+ + + + + | 07/20/ | Appointment | Infusion Therapy | Wilton Jeff MD | | | 2019 | | | [address] | | | | | | [place] | | | | | | [address] | | | | | | | | +--------+ + + + + | 07/20/ | Office | Oncology | Wilton Jeff MD | | | 2019 | Visit | | [address] | | | | | | [place] | | | | | | [address] | | | | | | | | +--------+ + + + + | 07/20/ | Appointment | Infusion Therapy | Wilton Jeff MD | | | 2019 | | | [address] | | | | | | [place] | | | | | | [address] | | | | | | | | +--------+ + + + + | 08/17/ | Appointment | Infusion Therapy | Wilton Jeff MD | | | 2019 | | | [address] | | | | | | [place] | | | | | | [address] | | | | | | | | +--------+ + + + + | 08/17/ | Office | Oncology | Wilton Jeff MD | | | 2019 | Visit | | [address] | | | | | | [place], [place] | | | | | | [address] | | | | | | | | +--------+ + + + + documented as of this encounter Visit Diagnoses Not on filedocumented in this encounter"
--- OUTSIDE RECORDS SUMMARY | ~2020-06-23 | XMS | Encounter Summary ---
Demographics + + + | Address | [address] | | | [place] [address] | + + + | Home Phone [...] Team Providers + +------+ + | Care Fisher Swordfish Name | Role | Phone | + +------+ + | Myrna Mejia MD | PCP | | + +------+ + Encounter Details +--------+ + + + + | Date | Type | Department | Care Team | Description | +--------+ + + + + | 04/02/ | Documentati | [facility] | Bruce Leonardo, | | | 2019 | on | HEMATOLOGY AND | Aerobics Teacher | | | | | ONCOLOGY [address] | | | | | | [address] | | | | | | [place] | | | | | | [address] | | | | | | [phone] | | | +--------+ + + + [...] as of this encounter Progress Bruce Romero, Aerobics Teacher - 04/02/2020 1:08 PM PDTConsent for Rituximab, Etoposi de, Prednisone, Vincristine, Cyclophosphamide, Doxorubicin and Pegfilgrastim, was signed by Dr. Jeff and witnessed by myself. Copy of consent was given to the patient at the time of today's visit 04/02/2020. Copy of consent was sent to medical records for scan. SASHENKA LEONARDO, Aerobics Teacher documented in this encounter Plan of Treatment [...] [place] | | | | | | [id number] | | | | | | | | +--------+ + + + + | 06/29/ | Office | Oncology | Wilton Jeff MD | | 2019 | Visit | | [address] | | | | | | [place] | | | | | | [address] | | | | | | | | | | | | Marilou Mcmullen, | | | | | | DIRECTOR PROCESS ENGINEERING [address] | | | | | | [address] | | | | | | [place] [address] | | | | | | [phone] | | | | | | | | +--------+ + + + + | 06/29/ | Appointment | Infusion Therapy | Wilton Jeff MD | | | 2019 | | | [address] | | | | | | [place] | | | | | | [address] | | | | | | | | +--------+ + + + + | 07/14/ | Office | Otolaryngology | She Huang | | | 2019 | Visit | | DO Sophia Canela | | | | | | [facility] [address] | | | | | | [place] [address] | | | | | | [phone] | | | | | | | | +--------+ + + + + | 07/20/ | Appointment | Infusion Therapy | Wilton Jeff MD | | | 2019 | | | [address] | | | | | | [place] | | | | | | [address] | | | | | | | | +--------+ + + + + | 07/20/ | Office | Oncology | Wilton Jeff MD | | | 2019 | Visit | | [address] | | | | | | [place] | | | | | | [address] | | | | | | | | +--------+ + + + + | 07/20/ | Appointment | Infusion Therapy | Wilton Jeff MD | | | 2019 | | | [address] | | | | | | [place] | | | | | | [address] | | | | | | | | +--------+ + + + + | 08/17/ | Appointment | Infusion Therapy | Wilton Jeff MD | | | 2019 | | | [address] | | | | | | [place] | | | | | | [address] | | | | | | | | +--------+ + + + + | 08/17/ | Office | Oncology | Wilton Jeff MD | | | 2020 | Visit | | [address] | | | | | | [place] | | | | | | [address] | | | | | | | | +--------+ + + + + documented as of this encounter Visit Diagnoses Not on filedocumented in this encounter"
--- OUTSIDE RECORDS SUMMARY | ~2020-06-23 | XMS | Encounter Summary ---
Demographics + + + | Address | [address] | | | [place] [address] | + + + | Home Phone [...] Author + + + | Author | [facility] | | | and [place] | + + + | Organization | [facility] | | | [...] Team Providers + +------+ + | Care Business Resiliency Manager Name | Role | Phone | [...] | | | | | | | [place] | | | | | | | [...] + + | 03/20/ | Hospital | [facility] | She Huang | Cervical | | 2019 | Encounter | [facility] | J, DO [address] | lymphadenopathy; | | | | OPERATING RO[address] | Supraclavicular | | | | [address] | [place] [address] | adenopathy; Cervical | | | | [place], [place] | [phone] | lymphadenopathy; | | | | [address] | | Supraclavicular | | | | [phone] | | adenopathy | +--------+ + + [...] Huang DO - 03/20/2020 1:55 PM PDT [facility]: Otolaryngology Brief Post-op Discharge Note DISCHARGE [...] Capellan RN - 03/20/2020MD She Tobar DO [facility] ENT [address] [place] [address] 3rd [place] [address] INSTRUCTION SHEET: NECK OR FACIAL SURGERY INSTRUCTIONS FOR AFTER SURGERY: Your doctor may prescribe pain medication for after the surgery. Otherwise you may use ove t-exb-ssfbqzd pain medication such as Tylenol, but avoid [...] strain that is spread mainly from pers gt-co-fpcwuo through respiratory droplets when an infected person [...] are not available, use an alcohol-based hand cow puncher with at least 60 % alcohol covering [...] need to call 911, notify the automatic lehr operator that you have or think you [...] COVID-19 symptoms, residents in nursing facilities or fpc communities or home health, or those who [...] or preparing your food. ? Use hand cow puncher if soap and water are not available. [...] with soap and water or in the tin assorter/washer. ? Call ahead before visiting your doctor. [...] Anexsia, Lorcet, Lorcet HD, Lorcet Plus, Lortab, [place], Verdrocet, Vicodin, Vi codin ES, Vicodin HP, [...] information carefully each time. Talk to your cadmium liquor maker regarding the use of this medicine in children. Special care may be needed. What side effects may I notice from receiving this medicine? Side effects that you should report to your doctor or health career development counselor as soon as p ossible: allergic reactions [...] attention (report to your doctor or health career development counselor if they continue or are bothersome): constipation [...] official disposal site. Contact the [facility] at [phone] or your [facility] government to find a site. If [...] this medicine? Tell your doctor or health career development counselor if your pain does not go away, [...] pharmacist, or health care provider. Copyright 2020 [facility] [employer] documented in this encounter Medications at Time [...] Huang, DO - 03/20/2020 12:10 PM PDT [facility]: Otolaryngology Pre-Operative History & Physical DIAGNOSIS: [...] file Gets together: Not on file Attends anabaptist service: Not on file Active member of [...] Huang DO - 03/20/2020 1:53 PM PDT [facility] Service: Otolaryngology (ENT) Operative Note Pre-operative Diagnosis: Cervical lymphadenopathy, supraclavicular lymphadenopathy Post-operative Diagnosis: Same, concerning for Hodgkin's lymphoma Procedure(s): Excisional biopsy right deep cervical lymph node Surgeon: She Huang DO Bark Peeler(s): None Anesthesia: General endotracheal anesthesia Estimated Blood [...] brought ba to operative suite #3 at [facility]. They were placed in the supine p osition. Gen. anesthesia was induced by IV and the patient was endotracheally intubated. A shoulder roll was placed to induce neck extension. An incisional [facility]. This measured approximately 4.5 cm [...] between the sternocleidomastoid muscle down to the chemistry intern al jugular vein on the right. Immediately [...] patient was then [facility] and care returned to [...] [place] | | | | | | [address] | | | | | | | | +--------+ + + + + | 06/29/ | Office | Oncology | Wilton Jeff MD | | 2019 | Visit | | [address] | | | | | | [place] | | | | | | [address] | | | | | | | | | | | | Marilou Mcmullen, | | | | | | [address] | | | | | [address] | | | | | | [place] [address] | | | | | | [phone] | | | | | | | | +--------+ + + + + | 06/29/ | Appointment | Infusion Therapy | Wilton Jeff MD | | | 2019 | | | [address] | | | | | | [place] | | | | | | [address] | | | | | | | | +--------+ + + + + | 07/14/ | Office | Otolaryngology | She Huang | | | 2019 | Visit | | DO Sophia Canela | | | | | | [address] | | | | | | [place] [address] | | | | | | [phone] | | | | | | | | +--------+ + + + + | 07/20/ | Appointment | Infusion Therapy | Wilton Jeff MD | | | 2019 | | | [address] | | | | | | [place] | | | | | | [address] | | | | | | | | +--------+ + + + + | 07/20/ | Office | Oncology | Wilton Jeff MD | | | 2019 | Visit | | [address] | | | | | | [place] | | | | | | [address] | | | | | | | | +--------+ + + + + | 07/20/ | Appointment | Infusion Therapy | Wilton Jeff MD | | | 2019 | | | [address] | | | | | | [place] | | | | | | [address] | | | | | | | | +--------+ + + + + | 08/17/ | Appointment | Infusion Therapy | Wilton Jeff MD | | | 2019 | | | [address] | | | | | | [place] | | | | | | [address] | | | | | | | | +--------+ + + + + | 08/17/ | Office | Oncology | Wilton Jeff MD | | | 2019 | Visit | | [address] | | | | | | [place] | | | | | | [address] | | | | | | | [...] | | Hematopathologist. Also, as part of quality control microbiology supervisor this case is | | | reviewed [...] performance | | | characteristics determined by [facility]. It has not been | | | [...] its | | | performancecharacteristics determined by [facility]. It has | | | not been cleared or approved by the U.S. Food and Drug Administration. | | | The FDA has determined that such clearance or approval is not | | | necessary. This test is used for clinical purposes. It should not | | | be regarded as investigational or for research. [facility] | | | is certified under the Clinical Laboratory ImprovementAmendments of | | | 1988 (CLIA) as qualified to perform high complexity clinical | | | laboratory testing. PERFORMING LABORATORY:The technical component of | | | the flow cytometry was performed by [facility], [address] | | | [place] [address] (Vamper: Arnie | | | Alba Petersen; CLIA#: [id number]).Professional interpretation of the | | | flow cytometry was performed by [facility], [place] | | | [facility], [facility] [address] [place] [address] | | | (Vamper: Johnie Navas M.D.; CLIA#: [id number]). | | | IMAGES: A: [id number]: [id number] FINAL DIAGNOSIS | | | PERFORMED BY: Gloria Lundberg MD, Pathologist Mar 23 2020 6:07PMFrozen | | | section diagnosis was performed by [facility] | | | [address] [address] (Medical | | | Director: Lupillo Christian M.D.; CLIA#: [id number]).The technical | | | component was performed by [facility], [address] [place] [address], | | | [place] [address] (Vamper: Chiara Howard MD; CLIA# | | | [id number]). Professional interpretation was performed by [facility] | | | [address], | | | [place] [address] (Vamper: Lupillo Christian M.D.; CLIA#: | | | [id number]). REASON FOR ADDENDUM:To add results of additional [...] | lymphoma with MYC and BCL2 and/or DWA4fptgnxbgkytgmp (i.e. "double | | | hit" or [...] (8q24)Scoring method: | | | ManualCPT Code: 47705# of Units: 4 [facility]. | | | Ananth Aviles, Pathologist All controls were within expected ranges. | | | The Technical Component Processing and Analysis of this test was | | | completed at [facility] [place], [address] [place] [address], [place] / | | | [address] / [phone] / CLIA #[id number] / Vamper(s):Mya | | | Ananth Kim The Professional Component of this test was completed | | | at [facility], [address] [place] [address] [place], [place] | | | [address] / / .(Accession / Case | | | No: [id number] / [id number]). [facility] FISH test uses | | | either FDA cleared and/or analyte specific reagent (ASR) probes. This | | | test was developed and its performancecharacteristics determined by | | | [facility] in [place], [place]. It has not been cleared | [...] within this | | | report are administrative representative of the patient but not all testing in its | | | entirety andshould not be used to render a result. The CPT codes | | | provided with our test descriptions are based on AMA guidelines and | | | are for informational purposes only. Correct CPT coding is the | | | soleresponsibility of the billing republican. Please direct any questions | | | regarding coding to the payer being billed. Diagnostician: Franko | | | Ryan MARTINES, FACPPathologistDiagnostician: Chiara Ruiz Backer | | | MDPathologistElectronically Signed 04/07/2020 | | | | | |All controls were within expected ranges. | | | | | |The Technical Component Processing and Analysis of this test was completed at [facility], [address] [place] [address] / [id number] / [phone] / CLIA #[id number] / Vamper(s): | | |Mya Kim M.D. The Professional Component of this test was completed at [facility], [address] [facility] [place] [address] / / . | | |(Accession / Case No: [id number] / [id number]). [facility] FISH test uses ei ther FDA cleared and/or analyte specific reagent (ASR) probes. This test was developed and i ts performance | | |characteristics determined by [facility] in [place], [place]. It has not been cleared or [...] may be included within this report are administrative representative of the patient but not all testing in its entirety and | | |should not be used to render a result. The CPT codes provided with our test descriptions ar e based on AMA guidelines and are for informational purposes only. Correct CPT coding is the sole | | |responsibility of the billing republican. Please direct any questions regarding coding to [...] | | | | | | longer, mvkaab-pad-lhrno use of | | | | | [...] | | | | | | | nmfygs-bcl-jbxjl use of at least | | | [...]
--- OUTSIDE RECORDS SUMMARY | ~2020-06-23 | XMS | Encounter Summary ---
Demographics + + + | Address | [address] | | | [place] [address] | + + + | Home Phone | | + + + | Preferred Language | Unknown | + + + | Marital Status | Single | + + + | Nondenominational Affiliation | Unknown | + + + [...] Team Providers + +------+ + | Care Line Crewman Name | Role | Phone | + +------+ + | Myrna Mejia MD | PCP | | + +------+ + Reason for Visit + +--------+ + | Reason | Onset | Comments | | | Date | | + +--------+ + | Follow-up(Procedure) | 04/02/ | | | | 2020 | | + +--------+ + Encounter Details +--------+ + + + + | Date | Type | Department | Care Team | Description | +--------+ + + + + | 04/02/ | Telephone | [facility] | Wood Gilliam | Follow-up(Procedure) | | 2019 | | INTERVENTIONAL | MD [address] | | | | | RADIOLOGY [address] | [address] | | | | | [address] | [place] [address] | | | | | [place], [place] | [phone] | | | | | [address] | | | | | | [phone] | | | +--------+ + + + [...] this encounter Miscellaneous Notes Telephone Encounter - Judy Reed Certification Technician - 04/02/2020 9:42 AM PDTCalle león pt to see how he was doing after his procedure. Pt states he is doing fine. Pt has no ques tions or concerns. I let him know if he does, he is more than welcome to contact our office. Pt stated understanding.Electronically signed by Zina Wild at 0 04/02/2020 9:44 AM PDTdocumented in this encounter Plan of [...] [place] | | | | | | [address] | | | | | | | | +--------+ + + + + | 06/29/ | Office | Oncology | Wilton Jeff MD | | | 2019 | Visit | | [address] | | | | | | [place] | | | | | | [address] | | | | | | | | | | | | Marilou Mcmullen, | | | | | | [address] | | | | [address] | | | | | | [place] [address] | | | | | | [phone] | | | | | | | | +--------+ + + + + | 06/29/ | Appointment | Infusion Therapy | Wilton Jeff MD | | | 2019 | | | [address] | | | | | | [place] | | | | | | [address] | | | | | | | | +--------+ + + + + | 07/14/ | Office | Otolaryngology | She Huang | | | 2019 | Visit | | DO Sophia Canela | | | | | | [address] | | | | | | [place] [address] | | | | | | [phone] | | | | | | | | +--------+ + + + + | 07/20/ | Appointment | Infusion Therapy | Wilton Jeff MD | | | 2019 | | | [address] | | | | | | [place] | | | | | | [address] | | | | | | | | +--------+ + + + + | 07/20/ | Office | Oncology | Wilton Jeff MD | | | 2019 | Visit | | [address] | | | | | | [place] | | | | | | [address] | | | | | | | | +--------+ + + + + | 07/20/ | Appointment | Infusion Therapy | Wilton Jeff MD | | | 2019 | | | [address] | | | | | | [place] | | | | | | [address] | | | | | | | | +--------+ + + + + | 08/17/ | Appointment | Infusion Therapy | Wilton Jeff MD | | | 2019 | | | [address] | | | | | | [place] | | | | | | [address] | | | | | | | | +--------+ + + + + | 08/17/ | Office | Oncology | Wilton Jeff MD | | | 2019 | Visit | | [address] | | | | | | [place] | | | | | | [address] | | | | | | | | +--------+ + + + + documented as of this encounter Visit Diagnoses Not on filedocumented in this encounter"
--- OUTSIDE RECORDS SUMMARY | ~2020-06-23 | XMS | Encounter Summary ---
Demographics + + + | Address | [address] | | | [place] [address] | + + + | Home Phone | | + + + | Preferred Language | Unknown | + + + | Marital Status | Single | + + + | Sabianist Affiliation | Unknown | + + + | Race | White | + + + | Ethnic Group | Not or | + + + Author + + + | Author | [facility] | | | and [place] | + + + | Organization | [facility] | | | [...] Team Providers + +------+ + | Care Kettle Cook Name | Role | Phone | + [...] + + | 05/12/ | Telephone | [facility] | Wilton Jeff MD | Oncology Appointment | | 2019 | | HEMATOLOGY AND | [address] | | | | | ONCOLOGY [address] | [place] | [address] | [address] | | | | | [place] | | | | | | [address] | | | | | | [phone] | | | +--------+ + + + [...] [place] | | | | | | [address] | | | | | | | | +--------+ + + + + | 06/29/ | Office | Oncology | Wilton Jeff MD | | | 2019 | Visit | | [address] | | | | | | [place] | | | | | | [address] | | | | | | | | | | | | Marilou Mcmullen, | | | | | | HI TEACHER [address] | | | | | | [address] | | | | | | [place] [address] | | | | | | [phone] | | | | | | | | +--------+ + + + + | 06/29/ | Appointment | Infusion Therapy | Wilton Jeff MD | | | 2019 | | | [address] | | | | | | [place] | | | | | | [address] | | | | | | | | +--------+ + + + + | 07/14/ | Office | Otolaryngology | She Huang | | | 2019 | Visit | | DO Sophia Canela | | | | | | [address] | | | | | | [place] [address] | | | | | | [phone] | | | | | | | | +--------+ + + + + | 07/20/ | Appointment | Infusion Therapy | Wilton Jeff MD | | | 2019 | | | [address] | | | | | | [place] | | | | | | [address] | | | | | | | | +--------+ + + + + | 07/20/ | Office | Oncology | Wilton Jeff MD | | | 2019 | Visit | | [address] | | | | | | [place] | | | | | | [address] | | | | | | | | +--------+ + + + + | 07/20/ | Appointment | Infusion Therapy | Wilton Jeff MD | | | 2019 | | | [address] | | | | | | [place] | | | | | | [address] | | | | | | | | +--------+ + + + + | 08/17/ | Appointment | Infusion Therapy | Wilton Jeff MD | | | 2019 | | | [address] | | | | | | [place] | | | | | | [address] | | | | | | | | +--------+ + + + + | 08/17/ | Office | Oncology | Wilton Jeff MD | | | 2019 | Visit | | [address] | | | | | | [place] | | | | | | [address] | | | | | | | | +--------+ + + + + documented as of this encounter Visit Diagnoses Not on filedocumented in this encounter"
--- OUTSIDE RECORDS SUMMARY | ~2020-06-23 | XMS | Encounter Summary ---
Demographics + + + | Address | [address] | | | [place] [address] | + + + | Home Phone [...] Author + + + | Author | [facility] | | | and [place] | + + + | Organization | [facility] | | [...] Providers + +------+ + | Care Manager Book Name | Role | Phone | + +------+ + | Myrna Mejia MD | PCP | | + +------+ + Encounter Details +--------+ + + + + | Date | Type | Department | Care Team | Description | +--------+ + + + + | 03/27/ | Orders Only | [facility] | Deborah Guajardo, | Other classical | | 2019 | | [address] | Inspector Of Weights And Measures | Hodgkin lymphoma of | | | | [place] | | lymph nodes of | | | | [address] | | multiple regions | | | | [phone] | | (HCC) | +--------+ + + [...] [place] | | | | | | [address] | | | | | | | | +--------+ + + + + | 06/29/ | Office | Oncology | Wilton Jeff MD | | | 2019 | Visit | | [address] | | | | | | [place] | | | | | | [address] | | | | | | | | | | | | Marilou Mcmullen, | | | | | | ACCIDENT EXAMINER [address] | | | | | | [address] | | | | | | [place] [address] | | | | | | [phone] | | | | | | | | +--------+ + + + + | 06/29/ | Appointment | Infusion Therapy | Wilton Jeff MD | | | 2019 | | | [address] | | | | | | [place] | | | | | | [address] | | | | | | | | +--------+ + + + + | 07/14/ | Office | Otolaryngology | She Huang | | | 2019 | Visit | | DO Sophia Canela | | | | | | [facility] [address] | | | | | | [place] [address] | | | | | | [phone] | | | | | | | | +--------+ + + + + | 07/20/ | Appointment | Infusion Therapy | Wilton Jeff MD | | | 2019 | | | [address] | | | | | | [place] | | | | | | [address] | | | | | | | | +--------+ + + + + | 07/20/ | Office | Oncology | Wilton Jeff MD | | | 2019 | Visit | | [address] | | | | | | [place] | | | | | | [address] | | | | | | | | +--------+ + + + + | 07/20/ | Appointment | Infusion Therapy | Wilton Jeff MD | | | 2019 | | | [address] | | | | | | [place] | | | | | | [address] | | | | | | | | +--------+ + + + + | 08/17/ | Appointment | Infusion Therapy | Wilton Jeff MD | | | 2019 | | | [address] | | | | | | [place] | | | | | | [address] | | | | | | | | +--------+ + + + + | 08/17/ | Office | Oncology | Wilton Jeff MD | | | 2019 | Visit | | [address] | | | | | | [place], [place] | | | | | | [address] | | | | | | | | +--------+ + + + + documented as of this encounter Procedures + +--------+ + + + | Procedure Name | Priori | Date/Time | Associated Diagnosis | Comments | | | ty | | | | + +--------+ + + + | SLIDE REVIEW, | Routin | 03/27/2020 | Other classical | Results for this | | PERIPHERAL SMEAR | e | 9:15 AM | Hodgkin lymphoma of | procedure are in the | | | | PDT | lymph nodes of | results section. | | | | | multiple regions | | | | | | (HCC) | | + +--------+ + + + | SEDIMENTATION RATE | Routin | 03/27/2020 | Other classical | Results for this | | | e | 9:15 AM | Hodgkin lymphoma of | procedure are in the | | | | PDT | lymph nodes of | results section. | | | | | multiple regions | | | | | | (HCC) | | + +--------+ + + + | CBC WITH | Routin | 03/27/2020 | Other classical | Results for this | | DIFFERENTIAL | e | 9:15 AM | Hodgkin lymphoma of | procedure are in the | | | | PDT | lymph nodes of | results section. | | | | | multiple regions | | | | | | (HCC) | | + +--------+ + + + | LACTATE | Routin | 03/27/2020 | Other classical | Results for this | | DEHYDROGENASE | e | 9:15 AM | Hodgkin lymphoma of | procedure are in the | | | | PDT | lymph nodes of | results section. | | | | | multiple regions | | | | | | (HCC) | | + +--------+ + + + | COMPREHENSIVE | Routin | 03/27/2020 | Other classical | Results for this | | METABOLIC PANEL | e | 9:15 AM | Hodgkin lymphoma of | procedure are in the | | | | PDT | lymph nodes of | results section. | | | | | multiple regions | | | | | | (HCC) | | + +--------+ + + + documented in this encounter Results CBC with Differential (03/27/2020 9:15 AM PDT) [...] | | | Absolute | Performed at [facility], [address] LAB | | | | [address] | | [facility] | | | | [address], [place] | | LABORATORY | | | | [address] | | | | + + + + + + + + | Specimen | + + | Blood | + + + + + + + | Performing | Address | City/State/Zipcode | Phone Number | | Organization | | | | + + + + + | REFERENCE LAB | [address] [facility] | [place] | [phone] | | [facility] [address] | [address] | | | LABORATORY | | | | + + + + + | REFERENCE LAB | [address] [facility] | [place] | | | [facility] | [address] | [address] | | | LABORATORY | | | [...] [place] | | | | | | [address] | | | | + + + + + + + + | Specimen | + + | Blood | + + + + + + + | Performing | Address | City/State/Zipcode | Phone Number | | Organization | | | | + + + + + | REFERENCE LAB | [address] [place] [address] | [place], [place] | [phone] | | [facility] | [address] | [address] | | | LABORATORY | | | | + + + + + | REFERENCE LAB | [address] [place] [address] | [place], [place] | | | [facility] | [address] | [address] | | | LABORATORY | | | | + + + + + Slide Review, Peripheral Smear (03/27/2020 9:15 AM PDT) + + + + + + | Component | Value | Ref Range | Performed | Pathologist | | | | | At | Signature | + + + + + + | SLIDE | SLIDE TO DR | | REFERENCE | | | REVIEWED | GAMBOAComment: Testing | | LAB | | | | Performed at [facility], [address] | | [facility] | | | | [address] | | LABORATORY | | | | [address], [place] | | | | | | [address] | | | | + + + + + + + + | Specimen | + + | Blood | + + + + + + + | Performing | Address | City/State/Zipcode | Phone Number | | Organization | | | | + + + + + | REFERENCE LAB | [address] | [place] | [phone] | | [facility] | [address] | [address] | | | LABORATORY | | | | + + + + + | REFERENCE LAB | [address] | [place] | | | [facility] | [address] | [address] | | | LABORATORY | | | [...] [facility] | | | | [address], [place] | | LABORATORY | | | | [address] | | | | + + + + + + + + | Specimen | + + | Blood | + + + + + + + | Performing | Address | City/State/Zipcode | Phone Number | | Organization | | | | + + + + + | REFERENCE LAB | [address] [facility] | [place] | [phone] | | [facility] | [address] | [address] | | | LABORATORY | | | | + + + + + | REFERENCE LAB | [address] [facility] | [place] | | | [facility] | [address] | [address] | | | LABORATORY | | | | + + + + + Sedimentation Rate (03/27/2020 9:15 AM PDT) + + + + + + | Component | Value | Ref Range | Performed | Pathologist | | | | | At | Signature | + + + + + + | ESR | 50 (H)Comment: Testing | 0 - 15 mm/Hr | REFERENCE | | | | performed at [facility];[address] | | LAB | | | | [place] | | [facility] | | | | [address];[place] [address] | | LABORATORY | | + + + + + + + + | Specimen | + + | Blood | + + + + + + + | Performing | Address | City/State/Zipcode | Phone Number | | Organization | | | | + + + + + | REFERENCE LAB | [address] [place] [address] | [place], [place] | [phone] | | [facility] | [address] | [address] | | | LABORATORY | | | | + + + + + | REFERENCE LAB | [address] [place] [address] | [place] | | | [facility] | [address] 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
--- OUTSIDE RECORDS SUMMARY | ~2020-06-23 | XMS | Encounter Summary ---
Demographics + + + | Address | [address] | | [place] [address] | + + + | Home Phone [...] Author + + + | Author | Merged With [facility] | | | and [place] | + + + | Organization | Merged With [facility] | | | [...] Team Providers + +------+ + | Care Software Release Manager Name | Role | Phone [...] + + | 06/23/ | Telephone | [facility] | Lizbet Rios | Triage | | 2019 | | HEMATOLOGY AND | [facility] | | | | | [facility]COLOGY [facility]FUSIONS | | | | | | [address] | | | | | | [place] | | | | | | [address] | | | | | | [phone] | | | +--------+ + + + [...] Telephone Encounter - Wilton Jeff MD - 06/23/2020 3:39 PM PDTThank you.Electronically si gned by Wilton Jeff MD at 06/23/2020 3:39 PM PDTTelephone Encounter - Lizbet Rois RN - 06/23/2020 3:25 PM PDTSpoke with patient's mother, states she just dropped him off in [facility] ED. Asked if she would please transport patient to [facility], mother stated "he doesn 't want to go that far". Thanked her for returning by phone call. documented in this encounter Plan of [...] [place] | | | | | | [id number] | | | | | | | | +--------+ + + + + | 06/29/ | Office | Oncology | Wilton Jeff MD | | | 2019 | Visit | | [address] | | | | | | [place] | | | | | | [id number] | | | | | | | | | | | | Marilou Mcmullen, | | | | | | [address] | | | | | [address] | | | | | | [place] [address] | | | | | | [phone] | | | | | | | | +--------+ + + + + | 06/29/ | Appointment | Infusion Therapy | Wilton Jeff MD | | | 2019 | | | [address] | | | | | | [place] | | | | | | [address] | | | | | | | | +--------+ + + + + | 07/14/ | Office | Otolaryngology | She Huang | | | 2019 | Visit | | DO Sophia Canela | | | | | | [address] | | | | | | [place] [address] | | | | | | [phone] | | | | | | | | +--------+ + + + + | 07/20/ | Appointment | Infusion Therapy | Wilton Jeff MD | | | 2019 | | | [address] | | | | | | [place] | | | | | | [address] | | | | | | | | +--------+ + + + + | 07/20/ | Office | Oncology | Wilton Jeff MD | | | 2019 | Visit | | [address] | | | | | | [place] | | | | | | [address] | | | | | | | | +--------+ + + + + | 07/20/ | Appointment | Infusion Therapy | Wilton Jeff MD | | | 2019 | | | [address] | | | | | | [place] | | | | | | [address] | | | | | | | | +--------+ + + + + | 08/17/ | Appointment | Infusion Therapy | Wilton Jeff MD | | | 2019 | | | [address] | | | | | | [place] | | | | | | [address] | | | | | | | | +--------+ + + + + | 08/17/ | Office | Oncology | Wilton Jeff MD | | | 2019 | Visit | | [address] | | | | | | [place] | | | | | | [address] | | | | | | | | +--------+ + + + + documented as of this encounter Visit Diagnoses Not on filedocumented in this encounter
--- OUTSIDE RECORDS SUMMARY | ~2020-06-23 | XMS | Encounter Summary ---
Demographics + + + | Address | [address] | | | [place] [address] | + + + | Home Phone [...] Author + + + | Author | [facility] | | | and [place] | + + + | Organization | [facility] | | | [...] Team Providers + +------+ + | Care Workforce Development Vice President Name | Role | Phone | + +------+ + | Myrna Mejia MD | PCP | | + +------+ + Encounter Details +--------+ + + + + | Date | Type | Department | Care Team | Description | +--------+ + + + + | 04/02/ | Orders Only | [facility] | Marilou Mcmullen, | | | 2020 | | HEMATOLOGY AND | PACKING MACHINE OPERATOR [address] | | | | | ONCOLOGY [address] | | | | | [address] | [place] [address] | | | | | [place], [place] | [phone] | | | | | [address] | | | | | | [phone] | | | +--------+ + + + [...] [place] | | | | | | [address] | | | | | | | | +--------+ + + + + | 06/29/ | Office | Oncology | Wilton Jeff MD | | | 2019 | Visit | | [address] | | | | | | [place] | | | | | | [address] | | | | | | | | | | | | Marilou Mcmullen, | | | | | | PACKING MACHINE OPERATOR [address] | | | | | | [address] | | | | | | [place] [address] | | | | | | [phone] | | | | | | | | +--------+ + + + + | 06/29/ | Appointment | Infusion Therapy | Wilton Jeff MD | | | 2019 | | | [address] | | | | | | [place] | | | | | | [address] | | | | | | | | +--------+ + + + + | 07/14/ | Office | Otolaryngology | She Huang | | | 2019 | Visit | | DO Sophia Canela | | | | | | [facility] [address] | | | | | | [place] [address] | | | | | | [phone] | | | | | | | | +--------+ + + + + | 07/20/ | Appointment | Infusion Therapy | Wilton Jeff MD | | | 2019 | | | [address] | | | | | | [place] | | | | | | [address] | | | | | | | | +--------+ + + + + | 07/20/ | Office | Oncology | Wilton Jeff MD | | | 2019 | Visit | | [address] | | | | | | [place] | | | | | | [address] | | | | | | | | +--------+ + + + + | 07/20/ | Appointment | Infusion Therapy | Wilton Jeff MD | | | 2019 | | | [address] | | | | | | [place] | | | | | | [address] | | | | | | | | +--------+ + + + + | 08/17/ | Appointment | Infusion Therapy | Wilton Jeff MD | | | 2019 | | | [address] | | | | | | [place] | | | | | | [address] | | | | | | | | +--------+ + + + + | 08/17/ | Office | Oncology | Wilton Jeff MD | | | 2019 | Visit | | [address] | | | | | | [place] | | | | | | [address] | | | | | | | | +--------+ + + + + documented as of this encounter Procedures + +--------+ + + + | Procedure Name | Priori | Date/Time | Associated Diagnosis | Comments | | | ty | | | | + +--------+ + + + | COMPASS EVALUATION, | Routin | 04/02/2020 | | Results for this | | BONE MARROW | e | 12:49 PM | | procedure are in the | | | | PDT | | results section. | + +--------+ + + + documented in this encounter Results COMPASS EVALUATION, BONE MARROW (04/02/2020 12:49 PM PDT) + + + + + + | Component | Value | Ref Range | Performed | Pathologist | | | | | At | Signature | + + + + + + | Cytogenetic | See BelowComment: Report | | REFERENCE | | | Result | Number: | | LAB | | | | [id number] | | [facility] | | | | See | | LABORATORY | | | | Notes46,XY[20] | | | | | | Interpretation | | | | | | See NotesNORMAL MALE | | | | | | KARYOTYPE Cytogenetic | | | | | | analysis shows a | | | | | | normalmale karyotype in | | | | | | all cells analyzed. | | | | | | Comments See | | | | | | NotesStandard | | | | | | cytogenetic analysis may | | | | | | not detect | | | | | | subtlesubmicroscopic | | | | | | rearrangements and may | | | | | | not include | | | | | | metaphasesfrom abnormal | | | | | | cell populations with | | | | | | low mitotic rates | | | | | | orpresent in low levels. | | | | | | Metaphases Counted | | | | | | 20Metaphases | | | | | | Analyzed | | | | | | 20Metaphases Karyotyped | | | | | | 2Culture Type | | | | | | 48EB, | | | | | | 72IL2/[id number] | | | | | | Technique | | | | | | GTGBand Resolution | | | | | | 400ELECTRONIC | | | | | | SIGNATURE See | | | | | | NotesElectronically | | | | | | signed by: | | | | | | Date Chauncey | | | | | | Kwabena 04-09-2020 | | | | | | LEGAL DISCLAIMER | | | | | | See | | | | | | Notes*Professional | | | | | | interpretation service | | | | | | generally billeddirectly | | | | | | to carriers by | | | | | | [facility]. Two | | | | | | cultures wereperformed; | | | | | | stimulated and | | | | | | non-stimulated. The | | | | | | TechnicalComponent | | | | | | Processing of this test | | | | | | was completed | | | | | | at[facility] | | | | | | [place], [address], | | | | | | [place], [place] / | | | | | | [address]/ [phone] / | | | | | | CLIA #[id number] / | | | | | | Medical | | | | | | Director(s):Mya | | | | | | Ananth Kim The | | | | | | Technical Component | | | | | | Analysis ofthis test was | | | | | | completed at | | | | | | [facility] [place], | | | | | | [address], | | | | | | [place], [place] / [address] / | | | | | | [phone] / | | | | | | CLIA#[id number] / | | | | | | Clothes Drier Repairer(s): | | | | | | Isiah Baig M.D. | | | | | | TheProfessional | | | | | | Component of this test | | | | | | was completed | | | | | | at[facility] [place], [address] | | | | | | [address], | | | | | | [place] / [address] | | | | | | /[phone] / CLIA# | | | | | | [id number] / Medical | | | | | | Director(s): Pierre, | | | | | | Ph.D.. The performance | | | | | | characteristics of this | | | | | | testhave been determined | | | | | | by the performing | | | | | | laboratory. This testhas | | | | | | not been approved by | | | | | | the FDA. The FDA has | | | | | | determined suchclearance | | | | | | or approval is not | | | | | | necessary. This | | | | | | laboratory isCLIA | | | | | | certified to perform | | | | | | high complexity clinical | | | | | | testing.Images that may | | | | | | be included within this | | | | | | report | | | | | | arerepresentative of the | | | | | | patient but not all | | | | | | testing in itsentirety | | | | | | and should not be used | | | | | | to render a result. The | | | | | | CPTcodes provided with | | | | | | our test descriptions | | | | | | are based on | | | | | | AMAguidelines and are | | | | | | for informational | | | | | | purposes only. | | | | | | CorrectCPT coding is the | | | | | | sole responsibility of | | | | | | the billing libertarian.Please | | | | | | direct any questions | | | | | | regarding coding to the | | | | | | payerbeing billed. | | | | + + + + + + | [facility] | See BelowComment: Report | | REFERENCE | | | | Number: | | LAB | | | | [id number] | | [facility] | | | | History See | | LABORATORY | | | | NotesThe patient is a | | | | | | 29-year-old male with | | | | | | clinical diagnosis | | | | | | orconsideration of | | | | | | mediastinal large B-cell | | | | | | lymphoma, | | | | | | cavitarylesion, weight | | | | | | loss, and | | | | | | lymphadenopathy. Outside | | | | | | cervicallymph node | | | | | | biopsy showed atypical B | | | | | | lymphocytes | | | | | | consistentwith diffuse | | | | | | large B-cell lymphoma, | | | | | | positive for CD20, | | | | | | CD23,BCL6, CD79a, and | | | | | | PAX6; Ki-67 60% (Mar | | | | | | 2019). AccompanyingCBC | | | | | | report, received from | | | | | | the ordering facility | | | | | | and dated 2019, | | | | | | indicates WBC 13.41 | | | | | | k/uL, RBC 4.08 M/uL, Hgb | | | | | | 11.7g/dL, Hct 34.7%, | | | | | | MCV 85.0 fL, MCH 28.7 | | | | | | pg, MCHC 33.7 g/dL,RDW | | | | | | 42.4 fL, Plts 542 k/uL, | | | | | | with a differential | | | | | | count ofneutrophils: | | | | | | 83.52%, lymphocytes: | | | | | | 5.69%, monocytes: | | | | | | 8.12%,eosinophils: | | | | | | 1.96%, basophils: 0.71%. | | | | | | Final Diagnosis | | | | | | See NotesNo evidence | | | | | | of lymphoma identified. | | | | | | Comprehensive Assessment | | | | | | See NotesThe | | | | | | provided clinical | | | | | | diagnosis or | | | | | | consideration | | | | | | ofmediastinal large | | | | | | B-cell lymphoma is | | | | | | noted. Outside | | | | | | cervicallymph node | | | | | | biopsy showed atypical B | | | | | | lymphocytes | | | | | | consistentwith diffuse | | | | | | large B-cell lymphoma. | | | | | | The accompanying CBC | | | | | | datashow leukocytosis, | | | | | | anemia and | | | | | | thrombocytosis. | | | | | | Morphologic | | | | | | andimmunohistochemical | | | | | | studies of the bone | | | | | | marrow exhibit | | | | | | mildlydecreased | | | | | | cellularity and | | | | | | progressive | | | | | | trilineagehematopoiesis. | | | | | | There are no | | | | | | significantly | | | | | | increasedlymphocytes nor | | | | | | atypical lymphocytic | | | | | | aggregates. | | | | | | Flowcytometry reveals no | | | | | | significant | | | | | | immunophenotypicabnormal | | | | | | ities. Cytogenetic | | | | | | analysis shows a normal | | | | | | malekaryotype in all | | | | | | cells analyzed. Thus, | | | | | | there is no evidenceof | | | | | | lymphoma identified in | | | | | | the specimens examined. | | | | | | Correlationwith other | | | | | | clinical data and the | | | | | | cytogenetic studies | | | | | | isrecommended. | | | | | | Morphology See | | | | | | NotesBONE MARROW, SITE | | | | | | NOT SPECIFIED, CORE | | | | | | BIOPSY, TOUCHIMPRINTS, | | | | | | AND ASPIRATE SMEARS: | | | | | | -Mildly hypocellular | | | | | | bonemarrow for age | | | | | | (R30-40%) with | | | | | | progressive | | | | | | trilineagehematopoiesis. | | | | | | -No evidence of marrow | | | | | | involvement bylymphoma. | | | | | | Flow Cytometry | | | | | | See NotesNo | | | | | | diagnostic | | | | | | immunophenotypic | | | | | | abnormalities detected. | | | | | | Cytogenetics | | | | | | See Notes46,XY[20] | | | | | | NORMAL MALE KARYOTYPE | | | | | | Cytogenetic analysis | | | | | | shows anormal male | | | | | | karyotype in all cells | | | | | | analyzed. ELECTRONIC | | | | | | SIGNATURE See | | | | | | NotesElectronically | | | | | | signed by: | | | | | | Date Jerilyn Roberson | | | | | | 04-09-2020 | | | | | | LEGAL DISCLAIMER | | | | | | See NotesThe | | | | | | Professional Component | | | | | | of this test was | | | | | | [facility] | | [facility] | | [place], [facility] | | | | | | [facility], | | | | | | [place] /[address] / | | | | | | [phone] / CLIA | | | | | | #[id number] / | | | | | | MedicalDirector(s): | | | | | | Isiah Baig M.D. For | | | | | | detailed information | | | | | | onany of the tests | | | | | | performed please refer | | | | | | to the individualtest | | | | | | reports under the same | | | | | | master accession number. | | | | + + + + + + | Flow | See BelowComment: Report | | REFERENCE | | | Cytometry | Number: | | LAB | | | | [id number] | | [facility] | | | | See NotesNo | | LABORATORY | | | | diagnostic | | | | | | immunophenotypic | | | | | | abnormalities detected. | | | | | | Comments See | | | | | | NotesNo immunophenotypic | | | | | | evidence of a | | | | | | lymphoproliferativedisor | | | | | | ulisses, acute leukemia, | | | | | | increase in blasts, or | | | | | | plasma cellneoplasm is | | | | | | identified. | | | | | | Myeloproliferative | | | | | | neoplasms | | | | | | andmyelodysplastic | | | | | | syndromes may not show | | | | | | antigenicabnormalities | | | | | | on myeloid cells and | | | | | | cannot be ruled out | | | | | | byflow cytometry. Please | | | | | | correlate the result | | | | | | withmorphological | | | | | | findings, other | | | | | | pertinent laboratory | | | | | | data andclinical | | | | | | information. Lymphocytes | | | | | | 3.9%T-cells | | | | | | (81% of lymphoid cells) | | | | | | show a CD4/CD8 ratio of | | | | | | about0.7 without overt | | | | | | phenotypic abnormality. | | | | | | NK-cells (10% | | | | | | oflymphoid cells) are | | | | | | unremarkable. Mature | | | | | | B-cells (7% oflymphoid | | | | | | cells) are polyclonal | | | | | | (kappa:lambda 1.8). | | | | | | Monocytes | | | | | | 4.2%Monocytes show | | | | | | phenotypic evidence of | | | | | | maturation | | | | | | withoutdysmaturation. | | | | | | Granulocytes | | | | | | 88.0%Granulocytes show | | | | | | phenotypic evidence of | | | | | | maturation | | | | | | withoutdysmaturation. | | | | | | CD45 Dim | | | | | | 3.2%CD34+ events (1.0% | | | | | | of total cells) are not | | | | | | increased.Precursor | | | | | | B-cells are | | | | | | unremarkable. CD45 Neg | | | | | | 0.7%Erythroids | | | | | | and cell debris, | | | | | | unremarkable. Plasma | | | | | | Cells | | | | | | 0.1%Plasma cells are not | | | | | | increased and show | | | | | | unremarkable | | | | | | surfacemarker | | | | | | expression. Markers | | | | | | Performed See | | | | | | NotesCD2, CD3, CD4, CD5, | | | | | | CD7, CD8, CD10, CD11c, | | | | | | CD13, CD14, CD16,CD19, | | | | | | CD20, CD23, CD33, CD34, | | | | | | CD38, CD45, CD56, CD64, | | | | | | CD117,HLA-DR, Robinette, | | | | | | Lambda ELECTRONIC | | | | | | SIGNATURE See | | | | | | NotesElectronically | | | | | | signed by: | | | | | | Date Jerilyn Roberson | | | | | | 04-04-2020 | | | | | | LEGAL DISCLAIMER | | | | | | See NotesThe | | | | | | Technical Component | | | | | | Processing and Analysis | | | | | | of this testwas | | | | | | completed at [facility] | | | | | | [place], | | | | | | [place] | | | | | | / [address] / [phone] | | | | | | / CLIA #[id number] / | | | | | | MedicalDirector(s): | | | | | | Mya Kim M.D. | | | | | | The Professional | | | | | | Componentof this test | | | | | | was completed at | | | | | | [facility] [place], | | | | | | [address] [place] [address], | | | | | | [place], [place] / [address] / | | | | | | [phone] / | | | | | | CLIA#[id number] / | | | | | | Clothes Drier Repairer(s): | | | | | | Isiah Baig M.D. | | | | | | Thistest was developed | | | | | | and its performance | | | | | | characteristicsdetermine | | | | | | d by the performing | | | | | | laboratory. It has not | | | | | | beencleared or approved | | | | | | by the U.S. Food and | | | | | | Drug Administration.The | | | | | | FDA has determined that | | | | | | such clearance or | | | | | | approval is | | | | | | notnecessary. This test | | | | | | is used for clinical | | | | | | purposes. It shouldnot | | | | | | be regarded as | | | | | | investigational or for | | | | | | research. Thislaboratory | | | | | | is certified under the | | | | | | Clinical | | | | | | LaboratoryImprovement | | | | | | Amendments of 1988 | | | | | | (CLIA) as qualified to | | | | | | performhigh complexity | | | | | | clinical testing. Images | | | | | | that may be | | | | | | includedwithin this | | | | | | report are | | | | | | floor representative of the | | | | | | patient but notall | | | | | | testing in its entirety | | | | | | and should not be used | | | | | | to rendera result. The | | | | | | CPT codes provided with | | | | | | our test descriptionsare | | | | | | based on AMA guidelines | | | | | | and are for | | | | | | informationalpurposes | | | | | | only. Correct CPT coding | | | | | | is the sole | | | | | | responsibilityof the | | | | | | billing libertarian. Please | | | | | | direct any questions | | | | | | regardingcoding to the | | | | | | payer being billed. | | | | + + + + + + | Pathology | See BelowComment: Report | | REFERENCE | | | Comment 1 | Number: | | LAB | | | | [id number] | | [facility] | | | | See NotesBONE | | LABORATORY | | | | MARROW, SITE NOT | | | | | | SPECIFIED, CORE BIOPSY, | | | | | | TOUCHIMPRINTS, AND | | | | | | ASPIRATE SMEARS: -Mildly | | | | | | hypocellular bonemarrow | | | | | | for age (R30-40%) with | | | | | | progressive | | | | | | trilineagehematopoiesis. | | | | | | -No evidence of marrow | | | | | | involvement bylymphoma. | | | | | | Comments See | | | | | | NotesThis study is part | | | | | | of a comprehensive | | | | | | assessment of | | | | | | ahematopathology | | | | | | specimen that integrates | | | | | | morphology and | | | | | | otherconcurrent testing. | | | | | | Please see the final | | | | | | comprehensiveCompass | | | | | | report and other | | | | | | individual reports under | | | | | | the samemaster | | | | | | accession number for | | | | | | final diagnosis and | | | | | | details. Theprovided | | | | | | clinical diagnosis or | | | | | | consideration of | | | | | | mediastinallarge B-cell | | | | | | lymphoma is noted. | | | | | | Outside cervical lymph | | | | | | nodebiopsy showed | | | | | | atypical B lymphocytes | | | | | | consistent with | | | | | | diffuselarge B-cell | | | | | | lymphoma. The | | | | | | accompanying CBC data | | | | | | showleukocytosis, anemia | | | | | | and thrombocytosis. | | | | | | Morphologic | | | | | | andimmunohistochemical | | | | | | studies of the bone | | | | | | marrow exhibit | | | | | | mildlydecreased | | | | | | cellularity and | | | | | | progressive | | | | | | trilineagehematopoiesis. | | | | | | There are no | | | | | | significantly | | | | | | increasedlymphocytes nor | | | | | | atypical lymphocytic | | | | | | aggregates. | | | | | | Theconcurrent flow | | | | | | cytometry reveals no | | | | | | significantimmunophenoty | | | | | | pic abnormalities. Thus, | | | | | | there is no evidence | | | | | | oflymphoma identified in | | | | | | the specimens examined. | | | | | | Correlationwith other | | | | | | clinical data and the | | | | | | pending cytogenetic | | | | | | studiesis recommended. | | | | | | Thank you for sending | | | | | | this case | | | | | | forconsultation. If | | | | | | you have any questions | | | | | | about this report,please | | | | | | call me at [phone] | | | | | | [phone]. 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 Outside | | | | | | cervicallymph node | | | | | | biopsy showed atypical B | | | | | | lymphocytes | | | | | | consistentwith diffuse | | | | | | large B-cell lymphoma, | | | | | | positive for CD20, | | | | | | CD23,BCL6, CD79a, and | | | | | | PAX6; Ki-67 60% (17 EDY | | | | | | 2019). AccompanyingCBC | | | | | | report, received from | | | | | | the ordering facility | | | | | | and dated 30JUL 2019, | | | | | | indicates WBC 13.41 | | | | | | k/uL, RBC 4.08 M/uL, Hgb | | | | | | 11.7g/dL, Hct 34.7%, | | | | | | MCV 85.0 fL, MCH 28.7 | | | | | | pg, MCHC 33.7 g/dL,RDW | | | | | | 42.4 fL, Plts 542 k/uL, | | | | | | with a differential | | | | | | count ofneutrophils: | | | | | | 83.52%, lymphocytes: | | | | | | 5.69%, monocytes: | | | | | | 8.12%,eosinophils: | | | | | | 1.96%, basophils: 0.71%. | | | | | | Gross Description | | | | | | See NotesCase | | | | | | [id number] is received | | | | | | in one part in 10% | | | | | | neutralbuffered formalin | | | | | | containers, labeled | | | | | | with the patient | | | | | | | | | | | | s nameand date of | | | | | | . Additionally, | | | | | | received are 1 aspirate | | | | | | EDTAtubes and 1 Heparin | | | | | | tubes, 2 touch preps, | | | | | | and 8 bone | | | | | | marrowaspirate smears | | | | | | each labeled with the | | | | | | patient name and dateof | | | | | | . Part A, | | | | | | sublabeled bone marrow | | | | | | core, consists of atan | | | | | | white bone marrow core | | | | | | biopsy, measuring 1.4 cm | | | | | | in lengthand 0.2 cm in | | | | | | diameter, which is | | | | | | wrapped, decalcified | | | | | | andentirely submitted in | | | | | | cassette A1. Specimens | | | | | | are routinelyprocessed | | | | | | by [facility] | | | | | | [facility] An[facility] | | | | | | Pathologydepartment to | | | | | | produce HTE, IHC and | | | | | | special stained slides. | | | | | | Microscopic Description | | | | | | See NotesBONE | | | | | | MARROW: CELLULARITY: The | | | | | | core biopsy shows | | | | | | mildlydecreased | | | | | | cellularity (average | | | | | | approximately 30-40%). | | | | | | DIFFERENTIAL COUNT: | | | | | | Number counted: 200 | | | | | | cells Neutrophils | | | | | | andprecursors: 54% | | | | | | (50-70) Erythroid | | | | | | precursors: 19% (20-25) | | | | | | Promyelocytes: 3% (0-8) | | | | | | Blasts: 1% (0-3) | | | | | | Lymphocytes: 7%(3-15, | | | | | | 30-60 child) Monocytes: | | | | | | 5% (0-6) Eosinophils: 8% | | | | | | (1-5)Basophils: 0% | | | | | | (0-2) Plasma cells: 3% | | | | | | (0-4) M:E Ratio:Normal | | | | | | at R3.7:1. BLASTS: Not | | | | | | significantly | | | | | | increased.MYELOPOIESIS: | | | | | | [employer] maturation is | | | | | | observed. | | | | | | ERYTHROPOIESIS: [employer] | | | | | | maturation is observed. | | | | | | Overtdyserythropoiesis | | | | | | is not identified. | | | | | | MEGAKARYOCYTES:Numbers | | | | | | appear normal, | | | | | | morphologically | | | | | | unremarkable.LYMPHOCYTES | | | | | | : Scattered interstitial | | | | | | lymphocytes are | | | | | | observedand show small | | | | | | and mature morphology. | | | | | | No atypical | | | | | | aggregatesare detected. | | | | | | PLASMA CELLS: Plasma | | | | | | cells are not increased. | | | | | | OTHER: OTHER: No | | | | | | atypical | | | | | | nonhematopoietic cells | | | | | | orgranulomas are | | | | | | identified. Bony | | | | | | trabeculae are thin. IHC | | | | | | and Special Stains | | | | | | See TtcfxPM83 | | | | | | (core): Not increased. | | | | | | CD3 (core): | | | | | | Positive | | | | | | ininterstitial small | | | | | | T-cells. CD20 and | | | | | | PAX-5 (core): | | | | | | Positivein scattered | | | | | | small B-cells. BCL-1 | | | | | | (core): Negative | | | | | | inB-cells. Reticulin | | | | | | (core): No significantly | | | | | | increasedreticulin | | | | | | fibrosis. Iron (core, | | | | | | aspirate): Stores | | | | | | adequate,no ring | | | | | | sideroblasts identified. | | | | | | All controls were | | | | | | reviewedand showed | | | | | | appropriate positive and | | | | | | | | | | | | negativeimmunoreactivity | | | | | | . ELECTRONIC SIGNATURE | | | | | | See | | | | | | NotesElectronically | | | | | | signed by: | | | | | | Date Jerilyn Roberson | | | | | | 04-06-2020 | | | | | | LEGAL DISCLAIMER | | | | | | See NotesThe | | | | | | Technical Component | | | | | | Processing and Analysis | | | | | | of this testwas | | | | | | completed at [facility] | | | | | | [place], [address] | | | | | | [place] | | | | | | / [address] / [phone] | | | | | | / CLIA #[id number] / | | | | | | MedicalDirector(s): | | | | | | Mya Kim M.D. | | | | | | The Professional | | | | | | Componentof this test | | | | | | was completed at | | | | | | [facility] [place], | | | | | | [address] [place] [address], | | | | | | [place] / [id number] / | | | | | | [phone] / | | | | | | CLIA#[id number] / | | | | | | Clothes Drier Repairer(s): | | | | | | Isiah Baig M.D. | | | | | | Theperformance | | | | | | characteristics of the | | | | | | IHC/MURRAY assays have | | | | | | beenvalidated on | | | | | | formalin-fixed paraffin | | | | | | embedded tissues | | | | | | only.The performance | | | | | | characteristics of this | | | | | | test have beendetermined | | | | | | by the performing | | | | | | laboratory. The test has | | | | | | notbeen cleared or | | | | | | approved by the [place] | | | | | | Food and | | | | | | DrugAdministration | | | | | | ("FDA"), as the FDA has | | | | | | determined suchclearance | | | | | | or approval is not | | | | | | necessary. This test is | | | | | | used forclinical | | | | | | purposes. It should not | | | | | | be regarded | | | | | | asinvestigational or for | | | | | | research. This | | | | | | laboratory is | | | | | | certifiedunder the | | | | | | Clinical Laboratory | | | | | | Improvement Amendments | | | | | | of 1987("CLIA") as | | | | | | qualified to perform | | | | | | high complexity | | | | | | clinicallaboratory | | | | | | testing. For the | | | | | | classification of IHC | | | | | | antibodies,please | | | | | | contact the Client | | | | | | Services team. Images | | | | | | that may beincluded | | | | | | within this report are | | | | | | floor representative of the | | | | | | patientbut not all | | | | | | testing in its entirety | | | | | | and should not be used | | | | | | torender a | | | | | | result.Testing Performed | | | | | | at [facility] | | | | | | Laboratory | | | | | | | | | | | | [address] | | | | | | [address]. [place] [address] | | | | + + + + + + + + | Specimen | + + | | + + + + + + + | Performing | Address | City/State/Zipcode | Phone Number | | Organization | | | | + + + + + | REFERENCE LAB | [address] | [place] | [phone] | | [facility] | [address] | [address] | | | LABORATORY | | | | + + + + + | REFERENCE LAB | [address] [facility] | [place] | | | [facility] | Bl[address] | [address] | | | LABORATORY | | | | + + + + + documented in this encounter Visit Diagnoses Not on filedocumented in this encounter
--- OUTSIDE RECORDS SUMMARY | ~2020-06-23 | XMS | Encounter Summary ---
Demographics + + + | Address | [address] | | [place] [address] | + + + | Home Phone | | + + + | Preferred Language | Unknown | + + + | Marital Status | Single | + + + | Sabianism Affiliation | Unknown | + + + [...] Providers + +------+ + | Care Engineer Exhauster Name | Role | Phone | + [...] + + | 04/29/ | Hospital | [facility] | Addie Whiteside MD | Diffuse large B-cell | | 2020 - | Encounter | [facility] | [address] [place] | lymphoma of lymph | | | | CARE FLOOR [address] | [address] [place], [place] | nodes of multiple | | 05/04/ | | [address] | [address] | regions (HCC) | | 2019 | | [place], [place] | | (Primary Dx); | | | | [address] | Jeremie Finch MD | Admission for | | | | [phone] | [address] | chemotherapy; Large | | | | | [place] [address] | B-cell lymphoma | | | | | [phone] | (HCC); Cervical | | | | | | lymphadenopathy; | | | | | Alan Davis MD | Supraclavicular | | | | | [address] | adenopathy | | | | | [place] [address] | | | | | | [phone] | | | | | | | [...] Asad Longo AGE/SEX: 30 y.o. male ROOM: [address] [place] [address] PCP: Myrna Mejia MD : 1990 Admit date: 04/29/2020 Discharge [...] parenchymal abnormality. Final Report Signed by: Ananth Vickers Wendy Sign Date/Time: 2020 4:50 PM HPI [...] at that time He was admitted at [facility] from 08 April to 13 April for [...] mouth Daily. aka: ZYLOPRIM aluminum & magnesium vknxiegfg-jedmwhfzsvl-gvtilqkgzqJANRS-lidocaine Swish and spit 15 mLs every 4 hours as needed for Sore Throat. benzonatate 100 mg capsule Take 100 mg by mouth 3 times daily as needed for Cough. aka: TESSALON roxfjlaaikdysuy-ihnklgkrzihrcv-wzpeukqa suspension Swish and spit 10 mLs 4 [...] can adjust your medications if needed. Follow-Up: [facility] [address] [facility] [phone] On 05/06/2020 White blood cell injection at 9am Myrna Heath MD [address] [facility] [place] [id number] Discharge took more than 35 minutes, to include final examination, discussion of admission, and preparation of prescriptions, instructions for ongoing care, follow up and dictation of summary. Signed: Alan Davis MD 12:14 PM PDT Portions of this chart may have been copied from previous notes for continuity of care purp ose Portions of this chart may have been created with GoToTags voice recognition software. Occasi onal wrong-word or [...] must contact the clinic, call the provider field contractor and/or seek immediate medical car e for fever greater than 100.4 degrees and/or signs of infection or uncontrolled symptoms. 6. If you have non-urgent questions about your care, treatment or symptoms and desire to s peak with an oncology nurse, our Triage Nurse at [facility] can be reached during normal business hours at [phone]. 7. Recommend taking Claritin 10 mg by [...] Sore | | | | | | r-oewiydkgyhQQFLQ-cj | Throat. | | | | | [...] might be different fr om the original. Merged With [facility] Service: Hematology and Oncology Progress Note Hospital Day: LOS: 5 days Patient Summary: Mr.Dylan Bernard Villarreal a 29 year oldmalewith no significant past medical history other than tobacco use (1/2-1 pack/day 2675-9834) who began experiencing cough, pleuritic ch est [...] mL/hr at 05/04/20 0314 PRN Medications acetaminophen, gsasifnnnwHTZZF-ckeqrf-pnfqqskqr mouthwash (ADS admixture), benzonatate, doc usate sodium, [...] Full Code KOLE Do 2020 4:40 AM [facility]emat[facility] & Oncology Portions of this [...] South MD - 05/03/2020 12:23 PM PDT Merged With [facility] Service: Hematology and Oncology Progress Note Hospital Day: LOS: 4 days Patient Summary: Mr.Dylan Bernard Villarreal a 29 year oldmalewith no significant past medical history other than tobacco use (1/2-1 pack/day 6452-4720) who began experiencing cough, pleuritic ch est [...] mL/hr at 05/03/20 0405 PRN Medications acetaminophen, xdrwxyzrbuTXMHT-hghjac-utdmgqzrk mouthwash (ADS admixture), benzonatate, doc usate sodium, [...] Fenton MD 05/03/2020 12:23 PM PDT [facility] Portions of this [...] Asad Longo AGE/SEX: 29 y.o. male ROOM: [facility]- : 1990 PCP: Myrna Mejia MD ADMIT [...] at that time He was admitted at [facility] from 08 April to 13 April for [...] mL/hr at 05/03/20 0405 PRN Medications acetaminophen, ezrxfukazzTDYTA-ffbmbs-cpznqefwa mouthwash (ADS admixture), benzonatate, doc usate sodium, [...] this chart may have been created with GoToTags voice recognition software. Occasi onal wrong-word or sound-alike substitutions may have occurred due to the inherent bahena itations of voice recognition software. Please read the chart carefully and recognize, using context, where these substitutions have occurred. Oralia South MD - 2019 11:06 AM PDT Merged With [facility] Service: Hematology and Oncology Progress Note Hospital Day: LOS: 3 days Patient Summary: Mr.Dylan Bernard iVllarreal a 29 year oldmalewith no significant past medical history other than tobacco use (1/2-1 pack/day 4651-3888) who began experiencing cough, pleuritic ch est [...] 1,000 mL (05/02/20 0759) PRN Medications acetaminophen, rokileubqpVCPMR-xaexyh-yatppovhr mouthwash (ADS admixture), benzonatate, doc usate sodium, [...] Code Oralia Fenton MD 05/02/2020 11:06 AM [facility] Hematology & Oncology Portions of this [...] Asad Longo AGE/SEX: 29 y.o. male ROOM: [facility]-01 : 1990 PCP: Myrna Mejia MD ADMIT [...] at that time He was admitted at [facility] from 08 April to 13 April for [...] Infusions sodium chloride 0.9% 1,000 mL (05/02/20 9239) PRN Medications acetaminophen, fcfcdilfdxAGGWR-xceonq-xlmpnpwbq mouthwash (ADS admixture), benzonatate, doc usate sodium, [...] this chart may have been created with GoToTags voice recognition software. Occasi onal wrong-word or sound-alike substitutions may have occurred due to the inherent bahena itations of voice recognition software. Please read the chart carefully and recognize, using context, where these substitutions have occurred. Jeremie Goldsmith MD - 05/01/20 20 1:16 PM PDT Merged With [facility] Adult Hospitalist Progress Note Hospital Day: 2 [...] at that time He was admitted at [facility] from 08 April to 13 April for [...] 0.9% 1,000 mL (05/01/20 1154) PRN Meds:.acetaminophen, toqqwpxbefEBADV-cxzjak-wfnwkkdgz mouthwash (ADS admixture), benzon atate, docusate sodium, [...] MD 1:16 PM PDT 05/01/2020 oshonnaMayte sadler, LOADING RACK SUPERVISOR - 0 05/01/2020 5:21 AM PDT Merged With [facility] Service: Hematology and Oncology Progress Note Hospital Day: LOS: 2 days Patient Summary: Mr.Dylan Bernard Villarreal a 29 year oldmalewith no significant past medical history other than tobacco use (1/2-1 pack/day 0746-3179) who began experiencing cough, pleuritic ch est [...] mL/hr at 05/01/20 0441 PRN Medications acetaminophen, ihgkiyaejgCBUSQ-iskxei-rrknpvymy mouthwash (ADS admixture), benzonatate, doc usate sodium, [...] Full Code KOLE Do 05/01/2020 5:21 AM [facility] Hematology & Oncology Portions of this [...] MD - 0 04/30/2020 10:39 AM PDT Merged With [facility] Adult Hospitalist Progress Note Hospital Day: 1 [...] at that time He was admitted at [facility] from 08 April to 13 April for [...] 100 mL/hr at 04/30/20 0823 PRN Meds:.acetaminophen, uoaxpwywhtTHKKM-jxwbgn-egutzdnhi mouthwash (ADS admixture), benzon atate, docusate sodium, [...] A RNP - 04/30/2020 8:06 AM PDT Merged With [facility] Service: Hematology and Oncology Progress Note Hospital Day: LOS: 1 day Patient Summary: Mr.Dylan Bernard Villarreal a 29 year oldmalewith no significant past medical history other than tobacco use (1/2-1 pack/day 1904-0638) who began experiencing cough, pleuritic ch est [...] Full Code KOLE Goetz 04/30/2020 8:06 AM [facility] Hematology & Oncology Portions of this [...] note might be different from [facility]. Merged With [facility] Service: Hospitalist History and Physical Date [...] at that time He was admitted at [facility] from 08 April to 13 April for [...] CERVICAL NODE; Surgeon: She Huang DO; Location: [facility] [place] [facility] [place] No Known Allergies No [...] Old records reviewed on EMR. Dictation software, GoToTags, used which may contain error for similar [...] in low, locked position at all times. [place] patient and family to hospital surroundings. Provide non-skid slippers. Call light within reach. Hourly rounding performed per standard. Discharge Goal: Patient's discharge needs are met. Outcome: Progressing Working with ancillary staff and Engineering Faculty Member to identify discharge barriers and meet patie [...] as ordered. Re-assess patient s pain le jogre luis approximately 1-2 hours after pain management [...] in low, locked position at all times. [place] patient and family to hospital surroundings. Provide non-skid slippers. Call light within reach. Hourly rounding performed per standard. Discharge Goal: Patient's discharge needs are met. Outcome: Progressing Working with ancillary staff and Engineering Faculty Member to identify discharge barriers and meet ronni [...] PDTChemo handoff at bedside running 28ml/hr with [facility] Villarreal. Electronically sig colleen by Nai Pina [...] in low, locked position at all times. [place] patient and family to hospital surroundings. Provide non-skid slippers. Call light within reach. Hourly rounding performed per standard. Discharge Goal: Patient's discharge needs are met. Outcome: Progressing Working with ancillary staff and Engineering Faculty Member to identify discharge barriers and meet patie [...] in low, locked position at all times. [place] patient and family to hospital surroundings. Provide non-skid slippers. Call light within reach. Hourly rounding performed per standard. Discharge Goal: Patient's discharge needs are met. Outcome: Progressing Working with ancillary staff and Engineering Faculty Member to identify discharge barriers and meet patie nt's discharge needs [facility] [place] - Sari Dumas RN - 04/30/2020 6:40 PM PDTPatient tolerated chemo well today. NO changes t o am assessment. Vital signs stable. End of shift review complete Sari Duran RN Electr onically signed by Sari Duran RN at 04/30/2020 6:40 PM PDTPlan of [facility] [place] - Isi Dee RD - 04/30/2020 10:56 AM PDTFormatting of this note might be different from the origin al. NUTRITION NOTE Summary Pt triggered for chemo admit (2nd cycle). Pt admitted for diffuse large B-cell lymphoma of lymph nodes of multiple regions. 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, appetite was better after last chemo treatment, [...] 30 Days: planned readmission Previous Discharging Facility: [facility] PCP: Myrna Mejia MD Contact Information Family Contact Information: Name: Marcos Morgan (s.o) [place] Needs Assessment Current Outpt/Agency/Support Groups: infusion therapy, outpatient (specify) Community Agency Name: [facility] Anticipated Changes Related to Illness: none Concerns to be Addressed: denies needs/concerns at this time Services Anticipated at Discharge: infusion therapy, outpatient Equipment Used at Home: none Equipment Needed after Discharge: none Pharmacy/Medication Needs: ([facility] in [place]) Transportation Needs: family or friend will provide [...] [place] | | | | | | [id number] | | | | | | | | +--------+ + + + + | 06/29/ | Office | Oncology | Wilton Jeff MD | | | 2019 | Visit | | [address] | | | | | | [place] | | | | | | [address] | | | | | | | | | | | | Marilou Mcmullen, | | | | | | [address] | | | [address] | | | | | | [place] [address] | | | | | | [phone] | | | | | | | | +--------+ + + + + | 06/29/ | Appointment | Infusion Therapy | Wilton Jeff MD | | | 2019 | | | [address] | | | | | | [place] | | | | | | [address] | | | | | | | | +--------+ + + + + | 07/14/ | Office | Otolaryngology | She Huang | | | 2019 | Visit | | DO Sophia Canela | | | | | | [address] | | | | | | [place] [address] | | | | | | [phone] | | | | | | | | +--------+ + + + + | 07/20/ | Appointment | Infusion Therapy | Wilton Jeff MD | | | 2019 | | | [address] | | | | | | [place] | | | | | | [address] | | | | | | | | +--------+ + + + + | 07/20/ | Office | Oncology | Wilton Jeff MD | | | 2019 | Visit | | [address] | | | | | | [place] | | | | | | [address] | | | | | | | | +--------+ + + + + | 07/20/ | Appointment | Infusion Therapy | Wilton Jeff MD | | | 2019 | | | [address] | | | | | | [place] | | | | | | [address] | | | | | | | | +--------+ + + + + | 08/17/ | Appointment | Infusion Therapy | Wilton Jeff MD | | | 2019 | | | [address] | | | | | | [place] | | | | | | [address] | | | | | | | | +--------+ + + + + | 08/17/ | Office | Oncology | Wilton Jeff MD | | | 2019 | Visit | | [address] | | | | | | [place] | | | | | | [address] | | | | | | | [...] Procedure Note | + + | Stan, [id number] - 2020 4:54 PM PDT | | [...] [facility] | | | | performed at [facility];[address] | | LABORATORY | | | | [place] | | | | | | [address] | | | | + + + + + + + + | Specimen | + + | Blood | + + + + + + + | Performing | Address | City/State/Zipcode | Phone Number | | Organization | | | | + + + + + | [facility] | [address] | [place] [address] | [phone] | + + + + + ALT (2020 5:18 AM PDT) + + + + + + | Component | Value | Ref Range | Performed | Pathologist | | | | | At | Signature | + + + + + + | ALT | 38Comment: Testing | 10 - 65 U/L | [facility] | | | | performed at [facility];[address] | | LABORATORY | | | | [place] | | | | | | [address] | | | | + + + + + + + + | Specimen | + + | Blood | + + + + + + + | Performing | Address | City/State/Zipcode | Phone Number | | Organization | | | | + + + + + | [facility] | [address] | [place] [address] | [phone] | + + + + + Bilirubin, total (2020 5:18 AM PDT) + + + + + + | Component | Value | Ref Range | Performed | Pathologist | | | | | At | Signature | + + + + + + | BILIRUBIN, | 0.7Comment: Testing | 0.1 - 1.5 mg/dL | [facility] | | | TOTAL | performed at [facility];[address] | | LABORATORY | | | | [place] | | | | | | [address] | | | | + + + + + + + + | Specimen | + + | Blood | + + + + + + + | Performing | Address | City/State/Zipcode | Phone Number | | Organization | | | | + + + + + | [facility] | [address] | [place] [address] | [phone] | + + + + + Basic [...] | | | | | | MDRD IDAR traceable | | | | | | equation.Testing | | | | | | performed at [facility], [address] | | | | | | [facility], | | | | | | [place] [address] | | | | + + + + + + + + | Specimen | + + | Blood | + + + + + + + | Performing | Address | City/State/Zipcode | Phone Number | | Organization | | | | + + + + + | [facility] | [address] | [place] [address] | [phone] | + + + + + CBC [...] 0.00Comment: Testing | 0.00 - 0.10 | [facility] | | | Absolute | performed at [facility], [address] | K/uL | LABORATORY | | | | [facility], | | | | | | [place] [address] | | | | + + + + + + + + | Specimen | + + | Blood | + + + + + + + | Performing | Address | City/State/Zipcode | Phone Number | | Organization | | | | + + + + + | [facility] | [address] | [place] [address] | [phone] | + + + + + Basic [...] | | | | | performed at [facility];[address] | | | | | | [facility];[place], [place] | | | | | | [address] | | | | + + + + + + + + | Specimen | + + | Blood | + + + + + + + | Performing | Address | City/State/Zipcode | Phone Number | | Organization | | | | + + + + + | [facility] | [address] [facility] | [place] [address] | [phone] | + + + + + CBC [...] | | | Absolute | performed at [facility];[address] | K/uL | LABORATORY | | | | [place] | | | | | | [address] | | | | + + + + + + + + | Specimen | + + | Blood | + + + + + + + | Performing | Address | City/State/Zipcode | Phone Number | | Organization | | | | + + + + + | [facility] | [address] | [place] [address] | [phone] | + + + + + Basic [...] | 9.0 | 8.5 - 10.5 | [facility] | | | | | mg/dL | LABORATORY | | + + + + + + | Estimated | >60Comment: GFR <60: | >60 | [facility] | | | GFR | [...] | | | | | | MDRD IDAR traceable | | | | | | equation.Testing | | | | | | performed at [facility];[address] | | | | | | [facility];[place], [place] | | | | | | [address] | | | | + + + + + + + + | Specimen | + + | Blood | + + + + + + + | Performing | Address | City/State/Zipcode | Phone Number | | Organization | | | | + + + + + | [facility] | [address] | [place] [address] | [phone] | + + + + + CBC [...] at | | | | | | [facility];[address] [place] [address] | | | | | | Bl;[place] [address] | | | | + + + + + + + + | Specimen | + + | Blood | + + + + + + + | Performing | Address | City/State/Zipcode | Phone Number | | Organization | | | | + + + + + | [facility] | [address] | [place] [address] | [phone] | + + + + + Basic [...] | >60Comment: GFR <60: | >60 | [facility] | | | GFR | [...] | | | | | | MDRD [facility] traceable | | | | | | equation.Testing | | | | | | performed at [facility], [address] | | | | | | [facility], | | | | | | [place] [address] | | | | + + + + + + + + | Specimen | + + | Blood | + + + + + + + | Performing | Address | City/State/Zipcode | Phone Number | | Organization | | | | + + + + + | [facility] | [address] | [place] [address] | [phone] | + + + + + CBC [...] at | | | | | | [facility], [address] [facility] | | | | | | [place] | | | | | | [address] | | | | + + + + + + + + | Specimen | + + | Blood | + + + + + + + | Performing | Address | City/State/Zipcode | Phone Number | | Organization | | | | + + + + + | [facility] | [address] | [place] [address] | [phone] | + + + + + Phosphorus (04/30/2020 3:30 AM PDT) + + + + + + | Component | Value | Ref Range | Performed | Pathologist | | | | | At | Signature | + + + + + + | Phosphorus | 5.4 (H)Comment: Testing | 2.3 - 4.8 mg/dL | [facility] | | | | performed at [facility];[address] | | LABORATORY | | | | [address] [place], [place] | | | | | | [address] | | | | + + + + + + + + | Specimen | + + | Blood | + + + + + + + | Performing | Address | City/State/Zipcode | Phone Number | | Organization | | | | + + + + + | [facility] | [address] | [place] [address] | [phone] | + + + + + Magnesium (04/30/2020 3:30 AM PDT) + + + + + + | Component | Value | Ref Range | Performed | Pathologist | | | | | At | Signature | + + + + + + | Magnesium | 1.9Comment: Testing | 1.7 - 2.4 mg/dL | [facility] | | | | performed at [facility] | | LABORATORY | | | | [facility];[place], [place] | | | | | | [address] | | | | + + + + + + + + | Specimen | + + | Blood | + + + + + + + | Performing | Address | City/State/Zipcode | Phone Number | | Organization | | | | + + + + + | [facility] | [address] | [place] [address] | [phone] | + + + + + Comprehensive [...] | | | | | | MDRD [facility] traceable | | | | | | equation.Testing | | | | | | performed at [facility];[address] | | | | | | [facility];[place], [place] | | | | | | [address] | | | | + + + + + + + + | Specimen | + + | Blood | + + + + + + + | Performing | Address | City/State/Zipcode | Phone Number | | Organization | | | | + + + + + | [facility] | [address] | [place] [address] | [phone] | + + + + + CBC [...] at | | | | | | [facility];[address] [place] [address] | | | | | | Blvd;[place] [address] | | | | + + + + + + + + | Specimen | + + | Blood | + + + + + + + | Performing | Address | City/State/Zipcode | Phone Number | | Organization | | | | + + + + + | [facility] | [address] | [place] [address] | [phone] | + + + + + documented [...] PRN, Sore | | | Throat, Starting [facility] 04/30/20 at | | | 1047 | [...] | | | | | | | [facility] 04/30/20 at 1330, For 1 dose, | [...]
--- OUTSIDE RECORDS SUMMARY | ~2020-06-23 | XMS | Encounter Summary ---
Demographics + + + | Address | [address] | | | [place] [address] | + + + | Home Phone [...] Author + + + | Author | [facility] | | | and [place] | + + + | Organization | [facility] | | | [...] Team Providers + +------+ + | Care Naval Marine Engineer Name | Role | Phone | + +------+ + | Myrna Mejia MD | PCP | | + +------+ + Reason for Visit +--------+--------+ + | Reason | Onset | Comments | | | Date | | +--------+--------+ + | Other | 06/08/ | Request for admission to inpatient for chemotherapy | | | 2019 | | +--------+--------+ + Encounter Details +--------+ + + + + | Date | Type | Department | Care Team | Description | +--------+ + + + + | 06/08/ | Telephone | [facility] | Tina Cadet RN | Other (Request for | | 2019 | | INFUSION SUPPORT | | admission to | | | | SERVICES [address] | | inpatient for | | | | [address] | | chemotherapy) | | | | [address] [place] | | | | | | [address] | | | | | | [phone] | | | +--------+ + + + [...] this encounter Miscellaneous Notes Telephone Encounter - Tina Cadet RN - 06/08/2020 3:06 PM PDTFaxed orders for D6 Udeny ca to Dr. Mejia office at [phone], requested [address] Dr[address] Mejia sign orders and then have t hem faxed to [facility] same day surgery for administration on 06/16/20. Fax confirmation re ceived. Called Dr. Mejia's office and confirmed receipt of fax. elephone Encounter - Tina Cadet RN - 0 11:14 AM PDTOutLook Email sent to [facility] Oncology Direct Admit Notification: ONC DA Patient: Asad Longo : 1990 Dx: B-Cell Lymphoma Provider Contact: Dr. Guerra Admit Date: EVENING 06/10/20 Chemo Date: 06/11/20 Regimen: R-EPOCH [id number]. NOTE: Patient receiving Rituxan IN CLI PRIYA today 06/08/20. Notes: Patient will be scheduled for D6 Udenyca injection IN CLINIC at [facility] on . elephone Encounter - Tina Cadet RN - 06/08/2020 11:13 AM PDT----- Message from Elodia Guerra MD sent at 2019 10:50 AM PDT ----- Lisa Triage: Schedule for admission evening of June 10 to begin EPOCH June 11. Jazmine: Please get results of blood work done at [facility] in [place] from the last week of May as this will determine the dose of chemotherapy for this admission. Thank you. ELODIA GUERRA MD, FACP 06/08/2020 10:53 AM PDT documented in this enc ounter Plan of Treatment +--------+ + + + + | Date | Type | Specialty | Care Team | Description | +--------+ + + + + | 06/29/ | Appointment | Infusion Therapy | Elodia Guerra MD | | 2019 | | | [address] | | | | | | [place] | | | | | | [id number] | | | | | | | | +--------+ + + + + | 06/29/ | Office | Oncology | Elodia Guerra MD | | | 2019 | Visit | | [address] | | | | | | [place] | | | | | | [address] | | | | | | | | | | | | Marilou Mcmullen, | | | | | | AUTOMATION TEST DEVELOPER [address] | | | | | [address] | | | | | | [place] [address] | | | | | | [phone] | | | | | | | | +--------+ + + + + | 06/29/ | Appointment | Infusion Therapy | Elodia Guerra MD | | | 2019 | | | [address] | | | | | | [place] | | | | | | [address] | | | | | | | | +--------+ + + + + | 07/14/ | Office | Otolaryngology | She Huang | | | 2019 | Visit | | DO Sophia Canela | | | | | | [address] | | | | | | [place] [address] | | | | | | [phone] | | | | | | | | +--------+ + + + + | 07/20/ | Appointment | Infusion Therapy | Elodia Guerra MD | | | 2019 | | | [address] | | | | | | [place] | | | | | | [address] | | | | | | | | +--------+ + + + + | 07/20/ | Office | Oncology | Elodia Guerra MD | | | 2019 | Visit | | [address] | | | | | | [place] | | | | | | [address] | | | | | | | | +--------+ + + + + | 07/20/ | Appointment | Infusion Therapy | Elodia Guerra MD | | | 2019 | | | [address] | | | | | | [place] | | | | | | [address] | | | | | | | | +--------+ + + + + | 08/17/ | Appointment | Infusion Therapy | Elodia Guerra MD | | | 2019 | | | [address] | | | | | | [place] | | | | | | [address] | | | | | | | | +--------+ + + + + | 08/17/ | Office | Oncology | Elodia Guerra MD | | | 2019 | Visit | | [address] | | | | | | [place] | | | | | | [address] | | | | | | | | +--------+ + + + + documented as of this encounter Visit Diagnoses Not on filedocumented in this encounter"
--- OUTSIDE RECORDS SUMMARY | ~2020-06-23 | XMS | Encounter Summary ---
Demographics + + + | Address | [address] | | | [place] [address] | + + + | Home Phone [...] Team Providers + +------+ + | Care Forensic Specialist Name | Role | Phone | + +------+ + | Myrna Mejia MD | PCP | | + +------+ + Encounter Details +--------+ + + + + | Date | Type | Department | Care Team | Description | +--------+ + + + + | 04/06/ | Orders Only | [facility] | Wilton Jeff MD | | | 2020 | | HEMATOLOGY AND | [address] | | | | | ONCOLOGY [address] | [place] | | | | | [address] | [address] | | | | | [place] | | | | | | [address] | | | | | | [phone] | | | +--------+ + + + [...] [place] | | | | | | [address] | | | | | | | | +--------+ + + + + | 06/29/ | Office | Oncology | Wilton Jeff MD | | | 2019 | Visit | | [address] | | | | | | [place] | | | | | | [address] | | | | | | | | | | | | Marilou Mcmullen, | | | | | | SENIOR FINANCIAL ANALYST [address] | | | | | | [address] | | | | | | [place] [address] | | | | | | [phone] | | | | | | | | +--------+ + + + + | 06/29/ | Appointment | Infusion Therapy | Wilton Jeff MD | | | 2019 | | | [address] | | | | | | [place] | | | | | | [address] | | | | | | | | +--------+ + + + + | 07/14/ | Office | Otolaryngology | She Huang | | | 2019 | Visit | | DO Sophia Canela | | | | | | [place] [address] | | | | | | [place] [address] | | | | | | [phone] | | | | | | | | +--------+ + + + + | 07/20/ | Appointment | Infusion Therapy | Wilton Jeff MD | | | 2019 | | | [address] | | | | | | [place] | | | | | | [address] | | | | | | | | +--------+ + + + + | 07/20/ | Office | Oncology | Wilton Jeff MD | | | 2019 | Visit | | [address] | | | | | | [place] | | | | | | [address] | | | | | | | | +--------+ + + + + | 07/20/ | Appointment | Infusion Therapy | Wilton Jeff MD | | | 2019 | | | [address] | | | | | | [place] | | | | | | [address] | | | | | | | | +--------+ + + + + | 08/17/ | Appointment | Infusion Therapy | Wilton Jeff MD | | | 2019 | | | [address] | | | | | | [place] | | | | | | [address] | | | | | | | | +--------+ + + + + | 08/17/ | Office | Oncology | Wilton Jeff MD | | | 2020 | Visit | | [address] | | | | | | [place] | | | | | | [address] | | | | | | | | +--------+ + + + + documented as of this encounter Visit Diagnoses Not on filedocumented in this encounter"
--- OUTSIDE RECORDS SUMMARY | ~2020-06-23 | XMS | Encounter Summary ---
Demographics + + + | Address | [address] | | | [place] [address] | + + + | Home Phone [...] + | Author | [facility] | | | and [place] | + + + | Organization | [facility] | | [...] Team Providers + +------+ + | Care Ball Assembler Name | Role | Phone | + +------+ + | Myrna Mejia MD | PCP | | + +------+ + Reason for Visit +---------+ + | Reason | Comments | +---------+ + | Post Op | | +---------+ + Evaluate & Treat (Urgent) +--------+--------+ + [...] | and neck | [address] | [place], | | | | | region | [place] [address] | [place] [address] | | | | | | [place], [place] | Phone: | | | | | | [address] | [phone] | | | | | | Phone: | Fax: | | | | | | [phone] | [phone] | | | | | | Fax: | | | | | | | [phone] | | +--------+--------+ + + + + Encounter Details +--------+---------+ + + + | Date | Type | Department | Care Team | Description | +--------+---------+ + + + | 03/26/ | Office | [facility] | She Huang | Cervical | | 2020 | Visit | [address] THROAT [address] | J, DO [address] | lymphadenopathy | | | | [address] | [address] | (Primary Dx); | | | | [place], [place] | [place] [address] | Supraclavicular | | | | [address] | [phone] | adenopathy; Night | | | | [phone] | | sweats | +--------+---------+ + + [...] + + | Pulse | 104 | 03/26/2020 1:47 PM | | | | | PDT | | + + + + + | Temperature | - | - | | + + + + + | Respiratory Rate | - | - | | + + + + + | Oxygen Saturation | 97% | 03/26/2020 1:47 PM | | | | | PDT | | + + + + + | Inhaled Oxygen | - | - | | | Concentration | | | | + + + + + | Weight | 85.7 kg (189 lb) | 03/26/2020 1:47 PM | | | | | PDT | | + + + + + | Height | - | - | | + + + + + | Body Mass Index | 26.36 | 03/20/2020 12:07 PM | | | | | PDT | | + + + + + documented in this encounter Patient Instructions Patient Instructions Josefa Palumbo Fleet Manager - 03/26/2020 1:45 PM PDTWhat is C oronavirus? The Novel Coronavirus 2019 (COVID-19) is a new virus strain that is spread mainly from pers ka-mg-opxcax through respiratory droplets when an infected person [...] are not available, use an alcohol-based hand hand ii tube bender with at least 60 % alcohol covering [...] and need to call 911, notify the pile operator that you have or think you [...] COVID-19 symptoms, residents in nursing facilities or assisted communities or home health, or those who [...] or preparing your food. ? Use hand hand ii tube bender if soap and water are not available. [...] with soap and water or in the word processor operator/washer. ? Call ahead before visiting your [...] local public health website. CDC: COVID-19: https://www.cdc.gov/coronavirus/2019-ncov/index.html [place] Coronavirus Advisory: https://www.[facility].org/vtjmzkwv-hpv-yyzflulw/coron avirus-advisory Virtual Visits Available https://virtual.[facility].org/ documented in this encounter Progress Notes She Huang DO - 03/26/2020 1:45 PM PDT Subjective: Asad Longo presents to the clinic 1 weeks following excision biopsy right cervica l lymph node. . Eating a regular diet without difficulty. The patient is not having any pain . Pathology remains pending. Pertinent items are noted in HPI. Objective: Pulse 104 | Wt 85.7 kg (189 lb) | SpO2 97% | BMI 26.36 kg/m General: alert, appears stated age and cooperative HEENT: Head: Normocephalic, no lesions, without obvious abnormality. Eye: Normal external eye, conjunctiva, lids cornea, ANIYAH. Ears: Normal TM's bilaterally. Normal auditory canals and external ears. Non-tender. Nose: Normal external nose, mucus membranes and septum. Pharynx: Dental Hygiene adequate. Normal buccal mucosa. Normal pharynx. Neck / Thyroid: Incisional site of the right neck is clean, dry, and intact. Assessment: Doing well postoperatively. Plan: 1.I have reviewed the physical examination findings with patient. Pathology is pending. We will call him with the results when they are in. Suture site healing well. He will follow up with Dr. Jeff tomorrow. I discussed avoiding sun exposure 2. Pt is to increase activities as tolerated. 3. Follow up: 3 months IJosefa am personally taking down the note in the presence of Dr. Huang . I, Dr. She Huang DTiffnaie, personally performed the services described in this documenta tion, as scribed by Josefa Dickey CMA in my presence, and it is accurate and complete. Portions of this chart note have been created with a voice recognition system. The possibil ity of "sound alike" medical stenographer errors, additions or deletions may occur. If [...] [place] | | | | | | [address] | | | | | | | | +--------+ + + + + | 06/29/ | Office | Oncology | Wilton Jeff MD | | | 2019 | Visit | | [address] | | | | | | [place] | | | | | | [address] | | | | | | | | | | | | Marilou Mcmullen, | | | | | | TWIST MAKER [address] | | | | | | [address] | | | | | | [place] [address] | | | | | | [phone] | | | | | | | | +--------+ + + + + | 06/29/ | Appointment | Infusion Therapy | Wilton Jeff MD | | | 2019 | | | [address] | | | | | | [place] | | | | | | [address] | | | | | | | | +--------+ + + + + | 07/14/ | Office | Otolaryngology | She Huang | | | 2019 | Visit | | DO Sophia Canela | | | | | | [place] [address] | | | | | | [place] [address] | | | | | | [phone] | | | | | | | | +--------+ + + + + | 07/20/ | Appointment | Infusion Therapy | Wilton Jeff MD | | | 2019 | | | [address] | | | | | | [place] | | | | | | [address] | | | | | | | | +--------+ + + + + | 07/20/ | Office | Oncology | Wilton Jeff MD | | | 2019 | Visit | | [address] | | | | | | [place] | | | | | | [address] | | | | | | | | +--------+ + + + + | 07/20/ | Appointment | Infusion Therapy | Wilton Jeff MD | | | 2019 | | | [address] | | | | | | [place] | | | | | | [address] | | | | | | | | +--------+ + + + + | 08/17/ | Appointment | Infusion Therapy | Wilton Jeff MD | | | 2019 | | | [address] | | | | | | [place] | | | | | | [address] | | | | | | | | +--------+ + + + + | 08/17/ | Office | Oncology | Wilton Jeff MD | | | 2020 | Visit | | [address] | | | | | | [place] | | | | | | [address] | | | | | | | [...]
--- OUTSIDE RECORDS SUMMARY | ~2020-06-23 | XMS | Encounter Summary ---
Demographics + + + | Address | [address] | | | [place] [address] | + + + | Home Phone [...] + + + | Author | [facility] | | | and [place] | + + + | Organization | [facility] | | | [...] Team Providers + +------+ + | Care Life Specialist Name | Role | Phone | + +------+ + | Myrna Mejia MD | PCP | | + +------+ + Encounter Details +--------+ + + + + | Date | Type | Department | Care Team | Description | +--------+ + + + + | 03/17/ | Prep for | [facility] | She Huang | | | 2020 | Procedure | [address] | J, DO [address] | | | | | [address] | [address] | | | | | [place] | [place] [address] | | | | | [address] | [phone] | | | | | [phone] | | | +--------+ + + + [...] [place] | | | | | | [address] | | | | | | | | +--------+ + + + + | 06/29/ | Office | Oncology | Wilton Jeff MD | | | 2019 | Visit | | [address] | | | | | | [place] | | | | | | [address] | | | | | | | | | | | | Marilou Mcmullen, | | | | | | KOLE [address] | | | | | | [address] | | | | | | [place] [address] | | | | | | [phone] | | | | | | | | +--------+ + + + + | 06/29/ | Appointment | Infusion Therapy | Wilton Jeff MD | | | 2019 | | | [address] | | | | | | [place] | | | | | | [address] | | | | | | | | +--------+ + + + + | 07/14/ | Office | Otolaryngology | She Huang | | 2019 | Visit | | DO Sophia Canela | | | | | | [address] | | | | | | [place] [address] | | | | | | [phone] | | | | | | | | +--------+ + + + + | 07/20/ | Appointment | Infusion Therapy | Wilton Jeff MD | | | 2019 | | | [address] | | | | | | [place] | | | | | | [address] | | | | | | | | +--------+ + + + + | 07/20/ | Office | Oncology | Wilton Jeff MD | | | 2019 | Visit | | [address] | | | | | | [place] | | | | | | [address] | | | | | | | | +--------+ + + + + | 07/20/ | Appointment | Infusion Therapy | Wilton Jeff MD | | | 2019 | | | [address] | | | | | | [place] | | | | | | [address] | | | | | | | | +--------+ + + + + | 08/17/ | Appointment | Infusion Therapy | Wilton Jeff MD | | | 2019 | | | [address] | | | | | | [place] | | | | | | [phone] | | | | | | | | +--------+ + + + + | 08/17/ | Office | Oncology | Wilton Jeff MD | | | 2019 | Visit | | [address] | | | | | | [place] | | | | | | [phone] | | | | | | | | +--------+ + + + + documented as of this encounter Visit Diagnoses Not on filedocumented in this encounter"
--- OUTSIDE RECORDS SUMMARY | ~2020-06-23 | XMS | Encounter Summary ---
Demographics + + + | Address | [address] | | | [place] [address] | + + + | Home Phone [...] Team Providers + +------+ + | Care Embossing Press Operator Molded Goods Name | Role | Phone | + +------+ + | Myrna Mejia MD | PCP | | + +------+ + Encounter Details +--------+ + + + + | Date | Type | Department | Care Team | Description | +--------+ + + + + | 04/03/ | Orders Only | [facility] | Wilton Jeff MD | Mediastinal large | | 2019 | | HEMATOLOGY AND | [address] | B-cell lymphoma of | | | | ONCOLOGY [address] | [place], [place] | lymph nodes of | | | | [address] | [address] | multiple regions | | | | [place], [place] | | (HCC) (Primary Dx) | | | | [address] | | | | | | [phone] | | | +--------+ + + + [...] [place] | | | | | | [address] | | | | | | | | +--------+ + + + + | 06/29/ | Office | Oncology | Wilton Jeff MD | | | 2019 | Visit | | [address] | | | | | | [place] | | | | | | [address] | | | | | | | | | | | | Marilou Mcmullen, | | | | | | HEAVY EQUIPMENT RENTAL MANAGER [address] | | | | | | [address] | | | | | | [place] [address] | | | | | | [phone] | | | | | | | | +--------+ + + + + | 06/29/ | Appointment | Infusion Therapy | Wilton Jeff MD | | | 2019 | | | [address] | | | | | | [place] | | | | | | [address] | | | | | | | | +--------+ + + + + | 07/14/ | Office | Otolaryngology | She Huang | | | 2019 | Visit | | DO Sophia Canela | | | | | | [place] [address] | | | | | | [place] [address] | | | | | | [phone] | | | | | | | | +--------+ + + + + | 07/20/ | Appointment | Infusion Therapy | Wilton Jeff MD | | | 2019 | | | [address] | | | | | | [place] | | | | | | [address] | | | | | | | | +--------+ + + + + | 07/20/ | Office | Oncology | Wilton Jeff MD | | | 2019 | Visit | | [address] | | | | | | [place] | | | | | | [address] | | | | | | | | +--------+ + + + + | 07/20/ | Appointment | Infusion Therapy | Wilton Jeff MD | | | 2019 | | | [address] | | | | | | [place] | | | | | | [address] | | | | | | | | +--------+ + + + + | 08/17/ | Appointment | Infusion Therapy | Wilton Jeff MD | | | 2019 | | | [address] | | | | | | [place] | | | | | | [address] | | | | | | | | +--------+ + + + + | 08/17/ | Office | Oncology | Wilton Jeff MD | | | 2020 | Visit | | [address] | | | | | | [place] | | | | | | [address] | | | | | | | [...] | | LABORATORY | | | | [address] | | | | + + + + + + + + | Specimen | + + | Blood | + + + + + + + | Performing | Address | City/State/Zipcode | Phone Number | | Organization | | | | + + + + + | REFERENCE LAB | [address] | [place] | [phone] | | [facility] | [address] | [address] | | | LABORATORY | | | | + + + + + | REFERENCE LAB | [address] | [place], [place] | | | [facility] | Blvd[address] | [address] | | | LABORATORY | | | [...] | | | | | Performed at [facility], [address] | | | | | [place] | | | | | | [address], [place] | | | | | | [address] | | | | + + + + + + + + | Specimen | + + | Blood | + + + + + + + | Performing | Address | City/State/Zipcode | Phone Number | | Organization | | | | + + + + + | REFERENCE LAB | [address] | [place], [place] | [phone] | | [facility] | [address] | [address] | | | LABORATORY | | | | + + + + + | REFERENCE LAB | [address] [place] [address] | [place], [place] | | | [facility] | [address] | [address] | | | LABORATORY | | | [...] | [facility] | | | | [address], [place], [place] | | LABORATORY | | | | [address] | | | | + + + + + + + + | Specimen | + + | Blood | + + + + + + + | Performing | Address | City/State/Zipcode | Phone Number | | Organization | | | | + + + + + | REFERENCE LAB | [address] [place] [address] | [place], [place] | [phone] | | [facility] | Bl[address] | [address] | | | LABORATORY | | | | + + + + + | REFERENCE LAB | [address] [place] [address] | [place], [place] | | | [facility] | Bl[address] | [address] | | | LABORATORY | | | [...] REFERENCE | | | | performed at [facility];[address] | | LAB | | | | [place] | | [facility] | | | | [address];[place] [address] | | LABORATORY | | + + + + + + + + | Specimen | + + | Blood | + + + + + + + | Performing | Address | City/State/Zipcode | Phone Number | | Organization | | | | + + + + + | REFERENCE LAB | [address] | [place] | [phone] | | [facility] | [address] | [address] | | | LABORATORY | | | | + + + + + | REFERENCE LAB | [address] | [place], [place] | | | [facility] | [address] 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
--- OUTSIDE RECORDS SUMMARY | ~2020-06-23 | XMS | Encounter Summary ---
Demographics + + + | Address | [address] | | | [place] [address] | + + + | Home Phone [...] Author + + + | Author | [facility] | | | and [place] | + + + | Organization | [facility] | | | [...] Team Providers + +------+ + | Care Civil Engineering Intern Name | Role | Phone | [...] | of multiple | [place], | [place] [address] | | | | | regions | [place] [address] | Phone: | | | | | (HCC) | Phone: | [phone] | | | | | Procedures | [phone] | Fax: | | | | | ME | Fax: | [phone] | | | | | VINCRISTINE | [phone] | | | | | | SULFATE 1 MG | | | | | | | INJ ME | | | | | | | DOXORUBICIN | | | | | | | HCL | | | | | | | INJECTION, | | | | | | | 10 MG ME | | | | | | | CYCLOPHOSPHA | | | | | | | MIDE 100 MG | | | | | | | INJ ME | | | | | | | ETOPOSIDE | | | | | | | INJECTION, | | | | | | | 10 MG ME | | | | | | | PALONOSETRON | | | | | | | HCL, 25 MCG | | | | | | | ME | | | | | | | INJECTION, | | | | | | | UDENYCA 0.5 | | | | | | | MG ME INJ | | | | | | | TRUXIMA 10 | | | | | | | MG [id number] - | | | | | | | ME INJ | | | | | | | TRUXIMA 10 | | | | | | | MG- | | | | | | | RITUXIMAB-ab | | | | | | | bs [id number] - | | | | | | | ME | | | | | | | VINCRISTINE | | | | | | | SULFATE 1 MG | | | | | | | INJ [id number] | | | | | | | - ME | | | | | | | DOXORUBICIN | | | | | | | HCL | | | | | | | INJECTION, | | | | | | | 10 MG- DOXO | | | | | | | [id number] - ME | | | | | | | | | | | | | | CYCLOPHOSPHA | | | | | | | MIDE 100 MG | | | | | | | INJ- CYTOXAN | | | | | | | [id number] - | | | | | | | ME ETOPOSIDE | | | | | | | INJECTION, | | | | | | | 10 MG [id number] | | | | | | | - ME | | | | | | | INJECTION, | | | | | | | UDENYCA 0.5 | | | | | | | MG [id number] - | | | | | | | ME | | | | | | | [...] + + | 04/14/ | Hospital | [facility] | Wilton Jeff MD | 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 Talk to your tire and lube technician regarding the use of this medicine in children. While this drug m ay be prescribed for selected conditions, precautions do apply. What side effects may I notice from receiving this medicine? Side effects that you should report to your doctor or health resident care supervisor as soon as p ossible: allergic reactions [...] attention (report to your doctor or health resident care supervisor if they continue or are bothersome): bone [...] your dose. Call your doctor or health resident care supervisor if you miss your dose. If you [...] mask near construction sites or farm areas. [employer] ven[employer]atesh reviewed this educational content on 12/04/201919991545-3825 The [employer]. [address] [place] [address], [place] [address]. All righ ts reserved. This information is [...] Sore | | | | | | f-rxcbsqpnbjYORBA-vs | Throat. | | | | | [...] | | | | | ([facility]) | | | | | | + + + +---------+ + + documented as of this encounter Progress Notes Kaela Britton Hog Scraper - 04/14/2020 3:00 PM PDTUdenyca 6mg given [...] [place] | | | | | | [address] | | | | | | | | +--------+ + + + + | 06/29/ | Office | Oncology | Wilton Jeff MD | | | 2019 | Visit | | [address] | | | | | | [place] | | | | | | [address] | | | | | | | | | | | | Marilou Mcmullen, | | | | | | [address] | | | | | | [address] | | | | | | [place] [address] | | | | | | [phone] | | | | | | | | +--------+ + + + + | 06/29/ | Appointment | Infusion Therapy | Wilton Jeff MD | | | 2019 | | | [address] | | | | | | [place] | | | | | | [address] | | | | | | | | +--------+ + + + + | 07/14/ | Office | Otolaryngology | She Huang | | | 2019 | Visit | | DO Sophia Canela | | | | | | [address] | | | | | | [place] [address] | | | | | | [phone] | | | | | | | | +--------+ + + + + | 07/20/ | Appointment | Infusion Therapy | Wilton Jeff MD | | | 2019 | | | [address] | | | | | | [place] | | | | | | [address] | | | | | | | | +--------+ + + + + | 07/20/ | Office | Oncology | Wilton Jeff MD | | | 2019 | Visit | | [address] | | | | | | [place] | | | | | | [address] | | | | | | | | +--------+ + + + + | 07/20/ | Appointment | Infusion Therapy | Wilton Jeff MD | | | 2019 | | | [address] | | | | | | [place] | | | | | | [address] | | | | | | | | +--------+ + + + + | 08/17/ | Appointment | Infusion Therapy | Wilton Jeff MD | | | 2019 | | | [address] | | | | | | [place] | | | | | | [address] | | | | | | | | +--------+ + + + + | 08/17/ | Office | Oncology | Wilton Jeff MD | | | 2019 | Visit | | [address] | | | | | | [place] | | | | | | [address] | | | | | | | [...]
--- OUTSIDE RECORDS SUMMARY | ~2020-06-23 | XMS | Encounter Summary ---
Demographics + + + | Address | [address] | | | [place] [address] | + + + | Home Phone [...] Author + + + | Author | [facility] | | | and [place] | + + + | Organization | [facility] | | | [...] Team Providers + +------+ + | Care Engineering Team Supervisor Name | Role | Phone | [...] + + | 04/02/ | Telephone | [facility] | Wood Gilliam | Follow-up(Procedure) | | 2019 | | INTERVENTIONAL | MD [address] | | | | | [address]Y [address] | [address] | | | | | [address] | [place] [address] | | | | | [place], [place] | [phone] | | | | | [address] | | | | | | [phone] | | | +--------+ + + + [...] Miscellaneous Notes Telephone Encounter - Judy Reed Teacher Education Director - 04/02/2020 9:42 AM PDTCal[address] león pt [...] [place] | | | | | | [address] | | | | | | | | +--------+ + + + + | 06/29/ | Office | Oncology | Wilton Jeff MD | | | 2019 | Visit | | [address] | | | | | | [place] | | | | | | [address] | | | | | | | | | | | | Marilou Mcmullen, | | | | | | [address] | | | | | | [address] | | | | | | [place] [address] | | | | | | [phone] | | | | | | | | +--------+ + + + + | 06/29/ | Appointment | Infusion Therapy | Wilton Jeff MD | | | 2019 | | | [address] | | | | | | [place] | | | | | | [address] | | | | | | | | +--------+ + + + + | 07/14/ | Office | Otolaryngology | She Huang | | | 2019 | Visit | | DO Sophia Canela | | | | | | [address] | | | | | | [place] [address] | | | | | | [phone] | | | | | | | | +--------+ + + + + | 07/20/ | Appointment | Infusion Therapy | Wilton Jeff MD | | | 2019 | | | [address] | | | | | | [place] | | | | | | [address] | | | | | | | | +--------+ + + + + | 07/20/ | Office | Oncology | Wilton Jeff MD | | | 2019 | Visit | | [address] | | | | | | [place] | | | | | | [address] | | | | | | | | +--------+ + + + + | 07/20/ | Appointment | Infusion Therapy | Wilton Jeff MD | | | 2019 | | | [address] | | | | | | [place] | | | | | | [address] | | | | | | | | +--------+ + + + + | 08/17/ | Appointment | Infusion Therapy | Wilton Jeff MD | | | 2019 | | | [address] | | | | | | [place] | | | | | | [address] | | | | | | | | +--------+ + + + + | 08/17/ | Office | Oncology | Wilton Jeff MD | | | 2019 | Visit | | [address] | | | | | | [place] | | | | | | [address] | | | | | | | | +--------+ + + + + documented as of this encounter Visit Diagnoses Not on filedocumented in this encounter"
--- OUTSIDE RECORDS SUMMARY | ~2020-06-23 | XMS | Encounter Summary ---
Demographics + + + | Address | [address] | | | [place] [address] | + + + | Home Phone [...] Team Providers + +------+ + | Care Temper Mill Roller Name | Role | Phone | + [...] [address] | [facility] | ([facility]) | | | | [place] | | | | | | [address] | | | | | | [phone] | | | +--------+ + + + [...] had a different phar giovany in [facility] that does compounding mouth washes. Waiting call [...] [place] | | | | | | [address] | | | | | | | | +--------+ + + + + | 06/29/ | Office | Oncology | Wilton Jeff MD | | | 2019 | Visit | | [address] | | | | | | [place] | | | | | | [address] | | | | | | | | | | | | Marilou Mcmullen, | | | | | | [address] | | | | | | [address] | | | | | | [place] [address] | | | | | | [phone] | | | | | | | | +--------+ + + + + | 06/29/ | Appointment | Infusion Therapy | Wilton Jeff MD | | | 2019 | | | [address] | | | | | | [place] | | | | | | [address] | | | | | | | | +--------+ + + + + | 07/14/ | Office | Otolaryngology | She Huang | | | 2019 | Visit | | DO Sophia Canela | | | | | | [address] | | | | | | [place] [address] | | | | | | [phone] | | | | | | | | +--------+ + + + + | 07/20/ | Appointment | Infusion Therapy | Wilton Jeff MD | | | 2019 | | | [address] | | | | | | [place] | | | | | | [address] | | | | | | | | +--------+ + + + + | 07/20/ | Office | Oncology | Wilton Jeff MD | | | 2019 | Visit | | [address] | | | | | | [place] | | | | | | [address] | | | | | | | | +--------+ + + + + | 07/20/ | Appointment | Infusion Therapy | Wilton Jeff MD | | | 2019 | | | [address] | | | | | | [place] | | | | | | [address] | | | | | | | | +--------+ + + + + | 08/17/ | Appointment | Infusion Therapy | Wilton Jeff MD | | | 2019 | | | [address] | | | | | | [place] | | | | | | [address] | | | | | | | | +--------+ + + + + | 08/17/ | Office | Oncology | Wilton Jeff MD | | | 2019 | Visit | | [address] | | | | | | [place] | | | | | | [address] | | | | | | | | +--------+ + + + + documented as of this encounter Visit Diagnoses Not on filedocumented in this encounter"
--- OUTSIDE RECORDS SUMMARY | ~2020-06-23 | XMS | Encounter Summary ---
Demographics + + + | Address | [address] | | | [place] [address] | + + + | Home Phone [...] Providers + +------+ + | Care Manager Mutual Fund Name | Role | Phone | + +------+ + | Myrna Mejia MD | PCP | | + +------+ + Encounter Details +--------+ + + + + | Date | Type | Department | Care Team | Description | +--------+ + + + + | 04/06/ | Orders Only | [facility] | Wilton Jeff MD | | | 2020 | | HEMATOLOGY AND | [address] | | | | | ONCOLOGY [address] | [place] | | | | [address] | [address] | | | | | [place] | | | | | | [address] | | | | | | [phone] | | | +--------+ + + + [...] [place] | | | | | | [address] | | | | | | | | +--------+ + + + + | 06/29/ | Office | Oncology | Wilton Jeff MD | | | 2019 | Visit | | [address] | | | | | | [place] | | | | | | [address] | | | | | | | | | | | | Marilou Mcmullen, | | | | | | [employer] [address] | | | | | | [address] | | | | | | [place] [address] | | | | | | [phone] | | | | | | | | +--------+ + + + + | 06/29/ | Appointment | Infusion Therapy | Wilton Jeff MD | | | 2019 | | | [address] | | | | | | [place] | | | | | | [address] | | | | | | | | +--------+ + + + + | 07/14/ | Office | Otolaryngology | She Huang | | | 2019 | Visit | | DO Sophia Canela | | | | | | [place] [address] | | | | | | [place] [address] | | | | | | [phone] | | | | | | | | +--------+ + + + + | 07/20/ | Appointment | Infusion Therapy | Wilton Jeff MD | | | 2019 | | | [address] | | | | | | [place] | | | | | | [address] | | | | | | | | +--------+ + + + + | 07/20/ | Office | Oncology | Wilton Jeff MD | | | 2019 | Visit | | [address] | | | | | | [place] | | | | | | [address] | | | | | | | | +--------+ + + + + | 07/20/ | Appointment | Infusion Therapy | Wilton Jeff MD | | | 2019 | | | [address] | | | | | | [place] | | | | | | [address] | | | | | | | | +--------+ + + + + | 08/17/ | Appointment | Infusion Therapy | Wilton Jeff MD | | | 2019 | | | [address] | | | | | | [place] | | | | | | [address] | | | | | | | | +--------+ + + + + | 08/17/ | Office | Oncology | Wilton Jeff MD | | | 2020 | Visit | | [address] | | | | | | [place] | | | | | | [address] | | | | | | | | +--------+ + + + + documented as of this encounter Visit Diagnoses Not on filedocumented in this encounter"
--- OUTSIDE RECORDS SUMMARY | ~2020-06-23 | XMS | Encounter Summary ---
Demographics + + + | Address | [address] | | | [place] [address] | + + + | Home Phone [...] Team Providers + +------+ + | Care Roller Operator Name | Role | Phone | [...] | | | | | | | [place] | | | | | | | [...] Description | +--------+---------+ + + + | 03/20/ | Surgery | [facility] | She Huang | BIOPSY DEEP CERVICAL | | 2019 | | [facility] | J, DO [address]DE | | | | OPERATING ROOM [address] | | | | | [address] | [place] [address] | | | | | [place], [place] | [phone] | | | | | [address] | | | | | | [phone] | | | +--------+---------+ + + + [...] + + + | Blood Pressure | 111/63 | 03/20/2020 2:10 PM | | | | | PDT | | + + + + + | Pulse | 90 | 03/20/2020 2:10 PM | | | | | PDT | | + + + + + | Temperature | 36.5 C (97.7 F) | 03/20/2020 1:51 PM | | | | | PDT | | + + + + + | Respiratory Rate | 19 | 03/20/2020 2:10 PM | | | | | PDT | | + + + + + | Oxygen Saturation | 98% | 03/20/2020 2:10 PM | | | | | PDT [...] Huang DO - 03/20/2020 1:55 PM PDT [facility] Service: Otolaryngology Brief Post-op Discharge Note [...] 6 hours as needed for Nausea. aka: NETTIEFRZACH ODT Unchanged Medications Details albuterol 2.5 mg/3 [...] Capellan RN - 03/20/2020MD She Tobar DO [facility] ENT [address] [place] [address] 3rd [place] [address] INSTRUCTION SHEET: NECK OR FACIAL SURGERY INSTRUCTIONS FOR AFTER SURGERY: Your doctor may prescribe pain medication for after the surgery. Otherwise you may use ove o-tjc-cxgrrth pain medication such as Tylenol, but avoid [...] strain that is spread mainly from pers uv-wx-emfqkb through respiratory droplets when an infected person [...] are not available, use an alcohol-based hand virtualization engineer with at least 60 % alcohol covering [...] need to call 911, notify the automatic drilling machine operator that you have or think [...] COVID-19 symptoms, residents in nursing facilities or mcc communities or home health, or those who [...] face covering. During the COVD-19 pandemic, medical-gr sear masks are reserved for healthcare workers. ? Use separate sleeping and bathroom/bathing facilities, if feasible. ? Wash your hands often with soap and water for at least 20 seconds. This is especially imp ortant after blowing your nose, coughing, or sneezing; going to the bathroom; and before eat ing or preparing your food. ? Use hand virtualization engineer if soap and water are not available. [...] with soap and water or in the target man/washer. ? Call ahead before visiting your doctor. [...] Anexsia, Lorcet, Lorcet HD, Lorcet Plus, Lortab, [place], Verdrocet, Vicodin, Vi codin ES, Vicodin HP, [...] information carefully each time. Talk to your service electrician regarding the use of this medicine in children. Special care may be needed. What side effects may I notice from receiving this medicine? Side effects that you should report to your doctor or health managed care liaison as soon as p ossible: allergic reactions [...] attention (report to your doctor or health managed care liaison if they continue or are bothersome): constipation [...] to an official disposal site. Contact the [facility] at [phone] or your [facility] government to find a site. If [...] this medicine? Tell your doctor or health managed care liaison if your pain does not go away, [...] cover all possible information. If you have pedroi georgette about this medicine, talk to your doctor, pharmacist, or health care provider. Copyright 2020 [employer] documented in this encounter Medications at Time [...] Huang, DO - 03/20/2020 12:10 PM PDT [facility] Service: Otolaryngology Pre-Operative History & Physical [...] file Gets together: Not on file Attends mormon service: Not on file Active member of [...] Huang DO - 03/20/2020 1:53 PM PDT [facility] Service: Otolaryngology (ENT) Operative Note Pre-operative Diagnosis: Cervical lymphadenopathy, supraclavicular lymphadenopathy Post-operative Diagnosis: Same, concerning for Hodgkin's lymphoma Procedure(s): Excisional biopsy right deep cervical lymph node Surgeon: She Huang DO Injection Wax Molder(s): None Anesthesia: General endotracheal anesthesia Estimated Blood [...] was marked. The patient was brought ba ck to operative suite [facility] at [facility]. They were placed in the supine p osition. Gen. anesthesia was induced by IV and the patient was endotracheally intubated. A shoulder roll was placed to induce neck extension. An incisional site was marked in the peacehealtht neck. This measured approximately 4.5 cm in [...] a skin incision through skin down throu gh subcutaneous tissues. This was done until the platysma was identified. The platysma was then divided with Bovie electrocautery. Attention was then turned to evaluation of the ly mph nodes. Dissection was carried between the sternocleidomastoid muscle down to the director international al jugular vein on the right. Immediately [...] patient was then allowed to awaken from neral anesthesia and care returned to the anesthesia [...] [place] | | | | | | [id number] | | | | | | | | +--------+ + + + + | 06/29/ | Office | Oncology | Wilton Jeff MD | | 2019 | Visit | | [address] | | | | | | [place] | | | | | | [address] | | | | | | | | | | | | Marilou Mcmullen, | | | | | | AWNING MAKER [address] | | | | | [address] | | | | | | [place] [address] | | | | | | [phone] | | | | | | | | +--------+ + + + + | 06/29/ | Appointment | Infusion Therapy | Wilton Jeff MD | | | 2019 | | | [address] | | | | | | [place] | | | | | | [address] | | | | | | | | +--------+ + + + + | 07/14/ | Office | Otolaryngology | She Huang | | | 2019 | Visit | | DO Sophia Canela | | | | | | [facility] | | | | | | [place] [address] | | | | | | [phone] | | | | | | | | +--------+ + + + + | 07/20/ | Appointment | Infusion Therapy | Wilton Jeff MD | | 2019 | | | [address] | | | | | | [place] | | | | | | [address] | | | | | | | | +--------+ + + + + | 07/20/ | Office | Oncology | Wilton Jeff MD | | | 2019 | Visit | | [address] | | | | | | [place] | | | | | | [address] | | | | | | | | +--------+ + + + + | 07/20/ | Appointment | Infusion Therapy | Wilton Jeff MD | | | 2019 | | | [address] | | | | | | [place] | | | | | | [address] | | | | | | | | +--------+ + + + + | 08/17/ | Appointment | Infusion Therapy | Wilton Jeff MD | | | 2019 | | | [address] | | | | | | [place] | | | | | | [address] | | | | | | | | +--------+ + + + + | 08/17/ | Office | Oncology | Wilton Jeff MD | | | 2019 | Visit | | [address] | | | | | | [place] | | | | | | [address] | | | | | | | [...] | | Hematopathologist. Also, as part of clinical quality assurance specialist this case is | | | reviewed [...] performance | | | characteristics determined by [facility]. It has not been | | | [...] its | | | performancecharacteristics determined by [facility]. It has | | | not been cleared or approved by the U.S. Food and Drug Administration. | | | The FDA has determined that such clearance or approval is not | | | necessary. This test is used for clinical purposes. It should not | | | be regarded as investigational or for research. [facility] | | | is certified under the Clinical Laboratory ImprovementAmendments of | | | 1988 (CLIA) as qualified to perform high complexity clinical | | | laboratory testing. PERFORMING LABORATORY:The technical component of | | | the flow cytometry was performed by [facility], [address] | | | [place] [address] (Brilliandeer Looper: Arnie | | | Alba Petersen; CLIA#: [id number]).Professional interpretation of the | | | flow cytometry was performed by [facility], [place] | | | [facility], [address] [place] [address] | | | (Brilliandeer Looper: Johnie Navas M.D.; CLIA#: [id number]). | | | IMAGES: A: [id number]: [id number] FINAL DIAGNOSIS | | | PERFORMED BY: Gloria Lundberg MD, Pathologist Mar 23 2020 6:07PMFrozen | | | section diagnosis was performed [facility] | | | [address] [address] (Medical | | | Director: Lupillo Christian M.D.; CLIA#: [id number]).The technical | | | component was performed by [facility], [address] [place] [address] | | | [place] [address] (Brilliandeer Looper: Chiara Howard MD; CLIA# | | | [id number]). Professional interpretation was performed by [facility] | | | [address], | | | [place] [address] (Brilliandeer Looper: Lupillo Christian M.D.; CLIA#: | | | [id number]). REASON FOR ADDENDUM:To add results of additional [...] | lymphoma with MYC and BCL2 and/or XDA7qnkunncsniptei (i.e. "double | | | hit" or [...] Set | | | Detail:MYC/IgH/CEN8 t(8;14): nuc ugo(CEP8x2,MYCx2,IGHx2>2)[12/50] BCL2 | | | (18q21): nuc ugo(BCL2x2)[50] BCL6 (3q27): nuc ugo(BCL6x2)[50] MYC | | | (8q24): nuc ugo(MYCx2)[50] Nuclei Scored: 50 Probe set: MYC/IgH/CEN8 | | | t(8;14), BCL2 (18q21), BCL6 (3q27), MYC (8q24)Scoring method: | | | ManualCPT Code: 10795# of Units: 4 [facility]. | | | Ananth Aviles, Pathologist All controls were within expected ranges. | | | The Technical Component Processing and Analysis of this test was | | | completed at [facility] [place], [address] [place] [address] / | | | [address] / [phone] / [place] #[id number] / Brilliandeer Looper(s):Mya | | | Ananth Kim The Professional Component of this test was completed | | | at [facility], [address] [place] [address] | | | [address] / / .(Accession / Case | | | No: [id number] / [id number]). [facility] FISH test uses | | | either FDA cleared and/or analyte specific reagent (ASR) probes. This | | | test was developed and its performancecharacteristics determined by | | | [facility] in [place], [place]. It has not been cleared | [...] within this | | | report are insurance follow up representative of the patient but not all testing in its | | | entirety andshould not be used to render a result. The CPT codes | | | provided with our test descriptions are based on AMA guidelines and | | | are for informational purposes only. Correct CPT coding is the | | | soleresponsibility of the billing green party. Please direct any questions | | | regarding coding to the payer being billed. Diagnostician: Franko | | | Ryan MARTINES, FACPPathologistDiagnostician: Chiara Ruiz Backer | | | MDPathologistElectronically Signed 04/07/2020 | | | | | |All controls were within expected ranges. | | | | | |The Technical Component Processing and Analysis of this test was completed at [facility], [address] [place] [address] / [id number] / [phone] / CLIA #[id number] / Brilliandeer Looper(s): | | |Mya Kim M.D. The Professional Component of this test was completed at [facility], [address] [facility] [address] [place] [address] / / . | | |(Accession / Case No: [id number] / [id number]). [facility] FISH test uses ei ther FDA cleared and/or analyte specific reagent (ASR) probes. This test was developed and i ts performance | | |characteristics determined by [facility] in [place], [place]. It has not been cleared or [...] may be included within this report are insurance follow up representative of the patient but not all testing in its entirety and | | |should not be used to render a result. The CPT codes provided with our test descriptions ar e based on AMA guidelines and are for informational purposes only. Correct CPT coding is the sole | | |responsibility of the billing green party. Please direct any questions regarding coding to the evaristo mccoy being billed. | | | | | [...] | | | | | | longer, wpjjps-ola-wzoti use of | | | | | [...] | | | | | | | hwstzv-onn-ljwgr use of at least | | | [...] DBP > 100, Starting | | | Mon03/20/20 at 1336, Hold if HR < | | | 60. Maximum total dose 300mg. | | | Notify anesthesia if patient | | | requires more than 50mg., | | | Recovery/Phase I | | + +---+ | | | + +---+ + +-------+ +-------+---+ + | lidocaine 1%-EPINEPHrine | Given | 03/20/20 | 3 mLs | | Surgical | | 1:100,000 injection PRN, | | 20 12:40 | | | Site | | Starting Mon03/20/20 at 1240, | | PM PDT | | | [...] 3:17 | | | | | Starting 03/20/20 at 1336, For | | PM PDT [...]
--- OUTSIDE RECORDS SUMMARY | ~2020-06-23 | XMS | Encounter Summary ---
Demographics + + + | Address | [address] | | | [place] [address] | + + + | Home Phone [...] + + + | Author | [facility] | | | and [place] | + + + | Organization | [facility] | | | [...] Providers + +------+ + | Care Manager Paper Name | Role | Phone | + +------+ + | Myrna Mejia MD | PCP | | + +------+ + Encounter Details +--------+ + + + + | Date | Type | Department | Care Team | Description | +--------+ + + + + | 03/20/ | Orders Only | [facility] | Wilton Jeff MD | Other classical | | 2020 | | HEMATOLOGY AND | [address] | Hodgkin lymphoma of | | | | ONCOLOGY [address] | [place], [place] | lymph nodes of | | | | [address] | [phone] | multiple regions | | | | [place] | | (HCC) | | | | [address] | | | | | | [phone] | | | +--------+ + + + [...] [place] | | | | | | [address] | | | | | | | | +--------+ + + + + | 06/29/ | Office | Oncology | Wilton Jeff MD | | | 2019 | Visit | | [address] | | | | | | [place] | | | | | | [address] | | | | | | | | | | | | Marilou Mcmullen, | | | | | | DISTANCE EDUCATION COORDINATOR [address] | | | | | [address] | | | | | | [place] [address] | | | | | | [phone] | | | | | | | | +--------+ + + + + | 06/29/ | Appointment | Infusion Therapy | Wilton Jeff MD | | | 2019 | | | [address] | | | | | | [place] | | | | | | [address] | | | | | | | | +--------+ + + + + | 07/14/ | Office | Otolaryngology | She Huang | | | 2019 | Visit | | DO Sophia Canela | | | | | | [place] [address] | | | | | | [place] [address] | | | | | | [phone] | | | | | | | | +--------+ + + + + | 07/20/ | Appointment | Infusion Therapy | Wilton eJff MD | | | 2019 | | | [address] | | | | | | [place] | | | | | | [address] | | | | | | | | +--------+ + + + + | 07/20/ | Office | Oncology | Wilton Jeff MD | | | 2019 | Visit | | [address] | | | | | | [place] | | | | | | [address] | | | | | | | | +--------+ + + + + | 07/20/ | Appointment | Infusion Therapy | Wilton Jeff MD | | | 2019 | | | [address] | | | | | | [place] | | | | | | [address] | | | | | | | [...] [place] | | | | | | [address] | | | | | | | [...] [facility] | | | | Blvd;[place] [address] | | LABORATORY | | + + + + + + + + | Specimen | + + | Blood | + + + + + + + | Performing | Address | City/State/Zipcode | Phone Number | | Organization | | | | + + + + + | REFERENCE LAB | [address] [facility] | [place] | [phone] | | [facility] | [address] | [address] | | | LABORATORY | | | | + + + + + | REFERENCE LAB | [address] [facility] | [place] | | | [facility] | Bl[address] | [address] | | | LABORATORY | | | [...] | | LABORATORY | | | | [address] | | | | + + + + + + + + | Specimen | + + | Blood | + + + + + + + | Performing | Address | City/State/Zipcode | Phone Number | | Organization | | | | + + + + + | REFERENCE LAB | [address] [place] [address] | [place], [place] | [phone] | | [facility] | Bl[address] | [address] | | | LABORATORY | | | | + + + + + | REFERENCE LAB | [address] [place] [address] | [place], [place] | | | [facility] | Bl[address] | [address] | | | LABORATORY | | | [...] LAB | | | | Performed at [facility], [address] | | [facility] | | | | [address] | | LABORATORY | | | | [address], [place] | | | | | | [address] | | | | + + + + + + + + | Specimen | + + | Blood | + + + + + + + | Performing | Address | City/State/Zipcode | Phone Number | | Organization | | | | + + + + + | REFERENCE LAB | [address] [facility] | [place] | [phone] | | [facility] | [address] | [address] | | | LABORATORY | | | | + + + + + | REFERENCE LAB | [address] [facility] | [place] | | | [facility] | [address] | [address] | | | LABORATORY | | | [...] [place] | | | | | | [address] | | | | + + + + + + + + | Specimen | + + | Blood | + + + + + + + | Performing | Address | City/State/Zipcode | Phone Number | | Organization | | | | + + + + + | REFERENCE LAB | [address] | [place] | [phone] | | [facility] | [address] | [address] | | | LABORATORY | | | | + + + + + | REFERENCE LAB | [address] | [place] | | | [facility] | Bl[address] | [address] | | | LABORATORY | | | [...] | | | Absolute | Performed at [facility], [address] | [address] | LAB | | | | [address] | | [facility] | | | | [address] | | LABORATORY | | | | [address] | | | | + + + + + + + + | Specimen | + + | Blood | + + + + + + + | Performing | Address | City/State/Zipcode | Phone Number | | Organization | | | | + + + + + | REFERENCE LAB | [address] | [place] | [phone] | | [facility] | Bl[address] | [address] | | | LABORATORY | | | | + + + + + | REFERENCE LAB | [address] [facility] | [place] | | | [facility] | [address] 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
--- OUTSIDE RECORDS SUMMARY | ~2020-06-23 | XMS | Encounter Summary ---
Demographics + + + | Address | [address] | | | [place] [address] | + + + | Home Phone | | + + + | Preferred Language | Unknown | + + + | Marital Status | Single | + + + | Spiritism Affiliation | Unknown | + + + [...] Team Providers + +------+ + | Care Radar Tester Name | Role | Phone | + +------+ + | Myrna Mejia MD | PCP | | + +------+ + Reason for Visit +---------+--------+ + | Reason | Onset | Comments | | | Date | | +---------+--------+ + | Imaging | 03/30/ | | | | 2019 | | +---------+--------+ + Encounter Details +--------+ + + + + | Date | Type | Department | Care Team | Description | +--------+ + + + + | 03/30/ | Telephone | [facility] | Wilton Jeff MD | Imaging | | 2019 | | HEMATOLOGY AND | [address] | | | | | ONCOLOGY [address] | [place] | | | | [address] | [address] | | | | | [place] | | | | | | [address] | | | | | | [phone] | | | +--------+ + + + [...] Encounter - Bruce Leonardo Medical Assistant - 03/30/2020 3:44 PM PDTI confir med with [facility] that they will schedule patient for Medi-port placement and not PICC Line. Patient informed of this as well as your recommendations below. He verbalized un derstanding and compliance to this plan. Zina NATION Assistant elephone Encounter - Wilton Jeff MD - 03/30/2020 3:36 PM P DTStill awaiting call from GLENDA austin Monday with results. Proceed with PFT. He must have a Mediport, NOT PICC line. Confirm this with radiology and pt. elephone Encounter - Bruce Leonardo Medical Assistant - 03/30/2020 2:51 PM PDTPatient left a message wanting to confirm his rosalinda n going forward. He said he had his MUGA today, is scheduled for PFT tomorrow and PICC Line placement Monday. Please advise on plan going forward, thank you. Zina NATION documented in this [...] [place] | | | | | | [address] | | | | | | | | +--------+ + + + + | 06/29/ | Office | Oncology | Wilton Jeff MD | | | 2019 | Visit | | [address] | | | | | | [place] | | | | | | [address] | | | | | | | | | | | | Marilou Mcmullen, | | | | | | [address] | | | | | | [address] | | | | | | [place] [address] | | | | | | [phone] | | | | | | | | +--------+ + + + + | 06/29/ | Appointment | Infusion Therapy | Wilton Jeff MD | | | 2019 | | | [address] | | | | | | [place] | | | | | | [address] | | | | | | | | +--------+ + + + + | 07/14/ | Office | Otolaryngology | She Huang | | | 2019 | Visit | | DO Sophia Canela | | | | | | [place] [address] | | | | | | [place] [address] | | | | | | [phone] | | | | | | | | +--------+ + + + + | 07/20/ | Appointment | Infusion Therapy | Wilton Jeff MD | | | 2019 | | | [address] | | | | | | [place] | | | | | | [address] | | | | | | | | +--------+ + + + + | 07/20/ | Office | Oncology | Wilton Jeff MD | | | 2019 | Visit | | [address] | | | | | | [place] | | | | | | [address] | | | | | | | | +--------+ + + + + | 07/20/ | Appointment | Infusion Therapy | Wilton Jeff MD | | | 2019 | | | [address] | | | | | | [place] | | | | | | [address] | | | | | | | | +--------+ + + + + | 08/17/ | Appointment | Infusion Therapy | Wilton Jeff MD | | | 2019 | | | [address] | | | | | | [place] | | | | | | [address] | | | | | | | | +--------+ + + + + | 08/17/ | Office | Oncology | Wilton Jeff MD | | | 2019 | Visit | | [address] | | | | | | [place] | | | | | | [address] | | | | | | | | +--------+ + + + + documented as of this encounter Visit Diagnoses Not on filedocumented in this encounter"
--- OUTSIDE RECORDS SUMMARY | ~2020-06-23 | XMS | Encounter Summary ---
Demographics + + + | Address | [address] | | | [place] [address] | + + + | Home Phone [...] Team Providers + +------+ + | Care Type Inspector Name | Role | Phone | + [...] + + | 03/31/ | Telephone | [facility] | [facility] | Pre-Op | | 2019 | | CENTER CV INTRA OP | MD [address] | | | | | [address] | [address] | | | | | [place], [place] | [place] [address] | | | | | [address] | [phone] | | | | | [phone] | | | +--------+ + + + [...] [place] | | | | | | [id number] | | | | | | | [...] | | | | | | [place] [address] | | | | | | [phone] | | | | | | | | +--------+ + + + + | 06/29/ | Appointment | Infusion Therapy | Wilton Jeff MD | | | 2019 | | | [address] | | | | | | [place] | | | | | | [address] | | | | | | | | +--------+ + + + + | 07/14/ | Office | Otolaryngology | She Huang | | | 2019 | Visit | | DO Sophia Canela | | | | | | [address] | | | | | | [place] [address] | | | | | | [phone] | | | | | | | | +--------+ + + + + | 07/20/ | Appointment | Infusion Therapy | Wilton Jeff MD | | | 2019 | | | [address] | | | | | | [place] | | | | | | [address] | | | | | | | | +--------+ + + + + | 07/20/ | Office | Oncology | Wilton Jeff MD | | | 2019 | Visit | | [address] | | | | | | [place] | | | | | | [address] | | | | | | | | +--------+ + + + + | 07/20/ | Appointment | Infusion Therapy | Wilton Jeff MD | | | 2019 | | | [address] | | | | | | [place] | | | | | | [address] | | | | | | | | +--------+ + + + + | 08/17/ | Appointment | Infusion Therapy | Wilton Jeff MD | | | 2019 | | | [address] | | | | | | [place] | | | | | | [address] | | | | | | | [...]
--- OUTSIDE RECORDS SUMMARY | ~2020-06-23 | XMS | Encounter Summary ---
Demographics + + + | Address | [address] | | | [place] [address] | + + + | Home Phone [...] Providers + +------+ + | Care Landscape Crew Member Name | Role | Phone | [...] + + | 06/08/ | Telephone | [facility] | Tina Cadte RN | Other (Request for | | 2019 | | INFUSION SUPPORT | | admission to | | | | SERVICES [address] | | inpatient for | | | | [address] | | chemotherapy) | | | | [address] [place] | | | | | | [address] | | | | | | [phone] | | | +--------+ + + + [...] Udeny ca to Dr. Mejia office at [phone], requested that Dr. Mejia sign orders and then have t hem faxed to [facility] same day surgery for administration on 06/16/20. Fax confirmation re ceived. Called Dr. Mejia's office and confirmed receipt of fax. elephone Encounter - Tina Cadet RN - 0 11:14 AM PDTOutLook Email sent to [facility] Oncology Direct Admit Notification: ONC DA Patient: Asad Longo : 1990 Dx: B-Cell Lymphoma Provider Contact: Dr. Guerra Admit Date: EVENING 06/10/20 Chemo Date: 06/11/20 Regimen: R-EPOCH [id number]. NOTE: Patient receiving Rituxan IN CLI PRIYA today 06/08/20. Notes: Patient will be scheduled for D6 Udenyca injection IN CLINIC at [facility] on . elephone Encounter - Tina Cadet RN - 06/08/2020 11:13 AM PDT----- Message from Elodia Guerra MD sent at 2019 10:50 AM PDT ----- Lisa Triage: Schedule for admission evening of June 10 to begin EPOCH June 11. Jazmine: Please get results of blood work done at [facility] in [place] from the last week of May as [...] [place] | | | | | | [address] | | | | | | | | +--------+ + + + + | 06/29/ | Office | Oncology | Elodia Guerra MD | | | 2019 | Visit | | [address] | | | | | | [place] | | | | | | [address] | | | | | | | | | | | | Marilou Mcmullen, | | | | | | HOME HEALTH CARE PROVIDER [address] | | | | | | [place] [address] | | | | | | [phone] | | | | | | | | +--------+ + + + + | 06/29/ | Appointment | Infusion Therapy | Elodia Guerra MD | | | 2019 | | | [address] | | | | | | [place] | | | | | | [address] | | | | | | | | +--------+ + + + + | 07/14/ | Office | Otolaryngology | She Huang | | | 2019 | Visit | | DO Sophia Canela | | | | | | [address] | | | | | | [place] [address] | | | | | | [phone] | | | | | | | | +--------+ + + + + | 07/20/ | Appointment | Infusion Therapy | Elodia Guerra MD | | | 2019 | | | [address] | | | | | | [place] | | | | | | [address] | | | | | | | | +--------+ + + + + | 07/20/ | Office | Oncology | Elodia Guerra MD | | | 2019 | Visit | | [address] | | | | | | [place] | | | | | | [address] | | | | | | | | +--------+ + + + + | 07/20/ | Appointment | Infusion Therapy | Elodia Guerra MD | | | 2019 | | | [address] | | | | | | [place] | | | | | | [address] | | | | | | | | +--------+ + + + + | 08/17/ | Appointment | Infusion Therapy | Elodia Guerra MD | | | 2019 | | | [address] | | | | | | [place] | | | | | | [address] | | | | | | | | +--------+ + + + + | 08/17/ | Office | Oncology | Elodia Guerra MD | | | 2019 | Visit | | [address] | | | | | | [place] | | | | | | [address] | | | | | | | | +--------+ + + + + documented as of this encounter Visit Diagnoses Not on filedocumented in this encounter"
--- OUTSIDE RECORDS SUMMARY | ~2020-06-23 | XMS | Encounter Summary ---
Demographics + + + | Address | [address] | | | [place] [address] | + + + | Home Phone | | + + + | Preferred Language | Unknown | + + + | Marital Status | Single | + + + | Temple Affiliation | Unknown | + + + | Race | White | + + + | Ethnic Group | Not or | + + + Author + + + | Author | [facility] | | | and [place] | + + + | Organization | 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 | Hodgkin lymphoma of | | | | [place] | | lymph nodes of | | | | [address] | | multiple regions | | | | [phone] | | (HCC) | +--------+ + + [...] [place] | | | | | | [address] | | | | | | | | +--------+ + + + + | 06/29/ | Office | Oncology | Wilton Jeff MD | | | 2019 | Visit | | [address] | | | | | | [place] | | | | | | [address] | | | | | | | | | | | | Marilou Mcmullen, | | | | | | AIRPORT OPERATIONS DUTY MANAGER [address] | | | | | | [address] | | | | | | [place] [address] | | | | | | [phone] | | | | | | | | +--------+ + + + + | 06/29/ | Appointment | Infusion Therapy | Wilton Jeff MD | | | 2019 | | | [address] | | | | | | [place] | | | | | | [address] | | | | | | | | +--------+ + + + + | 07/14/ | Office | Otolaryngology | She Huang | | | 2019 | Visit | | DO Sophia Canela | | | | | | [facility] [address] | | | | | | [place] [address] | | | | | | [phone] | | | | | | | | +--------+ + + + + | 07/20/ | Appointment | Infusion Therapy | Wilton Jeff MD | | | 2019 | | | [address] | | | | | | [place] | | | | | | [address] | | | | | | | | +--------+ + + + + | 07/20/ | Office | Oncology | Wilton Jeff MD | | | 2019 | Visit | | [address] | | | | | | [place] | | | | | | [address] | | | | | | | | +--------+ + + + + | 07/20/ | Appointment | Infusion Therapy | Wilton Jeff MD | | | 2019 | | | [address] | | | | | | [place] | | | | | | [address] | | | | | | | | +--------+ + + + + | 08/17/ | Appointment | Infusion Therapy | Wilton Jeff MD | | | 2019 | | | [address] | | | | | | [place] | | | | | | [address] | | | | | | | | +--------+ + + + + | 08/17/ | Office | Oncology | Wilton Jeff MD | | | 2019 | Visit | | [address] | | | | | | [place], [place] | | | | | | [address] | | | | | | | [...] [facility] | | | | [address], [place] | | LABORATORY | | | | [address] | | | | + + + + + + + + | Specimen | + + | Blood | + + + + + + + | Performing | Address | City/State/Zipcode | Phone Number | | Organization | | | | + + + + + | REFERENCE LAB | [address] | [place] | [phone] | | [facility] | [address] | [address] | | | LABORATORY | | | | + + + + + | REFERENCE LAB | [address] | [place] | | | [facility] | Bl[address] | [address] | | | LABORATORY | | | [...] [place] | | | | | | [address] | | | | + + + + + + + + | Specimen | + + | Blood | + + + + + + + | Performing | Address | City/State/Zipcode | Phone Number | | Organization | | | | + + + + + | REFERENCE LAB | [address] [place] [address] | [place], [place] | [phone] | | [facility] | [address] | [address] | | | LABORATORY | | | | + + + + + | REFERENCE LAB | [address] [place] [address] | [place], [place] | | | [facility] | Bl[address] | [address] | | | LABORATORY | | | [...] [place] | | | | | | [address] | | | | + + + + + + + + | Specimen | + + | Blood | + + + + + + + | Performing | Address | City/State/Zipcode | Phone Number | | Organization | | | | + + + + + | REFERENCE LAB | [address] | [place] | [phone] | | [facility] | [address] | [address] | | | LABORATORY | | | | + + + + + | REFERENCE LAB | [address] | [place] | | | [facility] | [address] | [address] | | | LABORATORY | | | [...] | | LABORATORY | | | | [address] | | | | + + + + + + + + | Specimen | + + | Blood | + + + + + + + | Performing | Address | City/State/Zipcode | Phone Number | | Organization | | | | + + + + + | REFERENCE LAB | [address] | [place] | [phone] | | [facility] | [address] | [address] | | | LABORATORY | | | | + + + + + | REFERENCE LAB | [address] | [place] | | | [facility] | Bl[address] | [address] | | | LABORATORY | | | [...] REFERENCE | | | | performed at [facility];[address] | | LAB | | | | [place] | | [facility] | | | | Blvd;[place] [address] | | LABORATORY | | + + + + + + + + | Specimen | + + | Blood | + + + + + + + | Performing | Address | City/State/Zipcode | Phone Number | | Organization | | | | + + + + + | REFERENCE LAB | [address] [place] [address] | [place], [place] | [phone] | | [facility] | Bl[address] | [address] | | | LABORATORY | | | | + + + + + | REFERENCE LAB | [address] [place] [address] | [place] | | | [facility] | Bl[address] 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
--- OUTSIDE RECORDS SUMMARY | ~2020-06-23 | XMS | Encounter Summary ---
Demographics + + + | Address | [address] | | | [place] [address] | + + + | Home Phone [...] Author + + + | Author | [facility] | | | and [place] | + + + | Organization | [facility] | | [...] + +------+ + | Care Director Of Outside Sales Name | Role | Phone | [...] + + | 03/20/ | Surgery | [facility] | She Huang | BIOPSY DEEP CERVICAL | | 2019 | | [facility] | J, DO [address] | | | | OPERATING ROOM [address] | [place] [address] | | | | | [place], [place] | [phone] | | | | | [address] | | | | | | [phone] | | | +--------+---------+ + + + [...] Huang DO - 03/20/2020 1:55 PM PDT [facility] Service: Otolaryngology Brief Post-op Discharge Note [...] Capellan RN - 03/20/2020MD She Tobar DO [facility] ENT [address] [place] [address] 3rd [place] [address] INSTRUCTION SHEET: NECK OR FACIAL SURGERY INSTRUCTIONS FOR AFTER SURGERY: Your doctor may prescribe pain medication for after the surgery. Otherwise you may use ove f-wyd-rbbuvzi pain medication such as Tylenol, but avoid [...] strain that is spread mainly from pers fv-gd-kqjqoz through respiratory droplets when an infected person [...] are not available, use an alcohol-based hand supervisor communications and signals with at least 60 % alcohol covering [...] need to call 911, notify the automatic oven operator that you have or think you [...] or preparing your food. ? Use hand supervisor communications and signals if soap and water are not available. [...] with soap and water or in the banking assistant/washer. ? Call ahead before visiting your doctor. [...] Anexsia, Lorcet, Lorcet HD, Lorcet Plus, Lortab, [place], Verdrocet, Vicodin, Vi codin ES, Vicodin HP, [...] information carefully each time. Talk to your custom stock maker regarding the use of this medicine in children. Special care may be needed. What side effects may I notice from receiving this medicine? Side effects that you should report to your doctor or health caregivers non medical as soon as p ossible: allergic reactions [...] attention (report to your doctor or health caregivers non medical if they continue or are bothersome): constipation [...] to an official disposal site. Contact the [facility] at [phone] or your [facility] to find a site. If you [...] this medicine? Tell your doctor or health caregivers non medical if your pain does not go away, [...] pharmacist, or health care provider. Copyright 2020 appweevr documented in this encounter Medications at Time [...] Huang, DO - 03/20/2020 12:10 PM PDT [facility] Service: Otolaryngology Pre-Operative History & Physical [...] file Gets together: Not on file Attends amish service: Not on file Active member of [...] Huang DO - 03/20/2020 1:53 PM [facility] Service: Otolaryngology (ENT) Operative Note Pre-operative Diagnosis: Cervical lymphadenopathy, supraclavicular lymphadenopathy Post-operative Diagnosis: Same, concerning for Hodgkin's lymphoma Procedure(s): Excisional biopsy right deep cervical lymph node Surgeon: She Huang DO Certified Residential Medication Aide(s): None Anesthesia: General endotracheal anesthesia Estimated Blood [...] ba ck to operative suite #3 at [facility]. They were placed in the supine p osition. Gen. anesthesia was induced by IV and the patient was endotracheally intubated. A shoulder roll was placed to induce neck extension. An incisional site [facility]. This measured approximately 4.5 cm in [...] between the sternocleidomastoid muscle down to the market research intern al jugular vein on the right. [...] [place] | | | | | | [id number] | | | | | | | | +--------+ + + + + | 06/29/ | Office | Oncology | Wilton Jeff MD | | 2019 | Visit | | [address] | | | | | | [place] | | | | | | [address] | | | | | | | | | | | | Marilou Mcmullen, | | | | | | CONSERVATION OR HERITAGE ARCHITECT [address] | | | | | | [address] | | | | | | [place] [address] | | | | | | [phone] | | | | | | | | +--------+ + + + + | 06/29/ | Appointment | Infusion Therapy | Wilton Jeff MD | | | 2019 | | | [address] | | | | | | [place] | | | | | | [address] | | | | | | | | +--------+ + + + + | 07/14/ | Office | Otolaryngology | She Huang | | | 2019 | Visit | | DO Sophia Canela | | | | | | [facility] [address] | | | | | | [place] [address] | | | | | | [phone] | | | | | | | | +--------+ + + + + | 07/20/ | Appointment | Infusion Therapy | Wilton Jeff MD | | 2019 | | | [address] | | | | | | [place] | | | | | | [address] | | | | | | | | +--------+ + + + + | 07/20/ | Office | Oncology | Wilton Jeff MD | | | 2019 | Visit | | [address] | | | | | | [place] | | | | | | [address] | | | | | | | | +--------+ + + + + | 07/20/ | Appointment | Infusion Therapy | Wilton Jeff MD | | | 2019 | | | [address] | | | | | | [place] | | | | | | [address] | | | | | | | | +--------+ + + + + | 08/17/ | Appointment | Infusion Therapy | Wilton Jeff MD | | | 2019 | | | [address] | | | | | | [place] | | | | | | [address] | | | | | | | | +--------+ + + + + | 08/17/ | Office | Oncology | Wilton Jeff MD | | | 2019 | Visit | | [address] | | | | | | [place] | | | | | | [address] | | | | | | | [...] Hematopathologist. Also, as part of quality control expert this case is | | | reviewed [...] performance | | | characteristics determined by [facility]. It has not been | | | [...] its | | | performancecharacteristics determined by [facility]. It has | | | not been cleared or approved by the U.S. Food and Drug Administration. | | | The FDA has determined that such clearance or approval is not | | | necessary. This test is used for clinical purposes. It should not | | | be regarded as investigational or for research. [facility] | | | is certified under the Clinical Laboratory ImprovementAmendments of | | | 1988 (CLIA) as qualified to perform high complexity clinical | | | laboratory testing. PERFORMING LABORATORY:The technical component of | | | the flow cytometry was performed by [facility], [address] | | [place] [address] (Waste Recycler: Arnie | | | [place]ba Petersen; CLIA#: [id number]).Professional interpretation of the | | | flow cytometry was performed by [facility], [place] | | | [facility], [address] [place] [address] | | | (Waste Recycler: Johnie Navas M.D.; CLIA#: [id number]). | | | IMAGES: A: [id number]: [id number] FINAL DIAGNOSIS | | | PERFORMED BY: Gloria Lundberg MD, Pathologist Mar 23 2020 6:07PMFrozen | | | section diagnosis was [facility] | | | [address] [address] (Medical | | | Director: Lupillo Christian M.D.; CLIA#: [id number]).The technical | | | component was performed by [facility], [address] [place] [address] | | | [place] [address] (Waste Recycler: Chiara Howard MD; CLIA# | | | [id number]). Professional interpretation was performed by [facility] | | | [address], | | | [place] [address] (Waste Recycler: Lupillo Christian M.D.; CLIA#: | | | [id number]). REASON FOR ADDENDUM:To add results of additional [...] | lymphoma with MYC and BCL2 and/or QUB3xfsuqwrpghwkei (i.e. "double | | | hit" or [...] (8q24)Scoring method: | | | ManualCPT Code: 05070# of Units: 4 [facility]. | | | Ananth Aviles, Pathologist All controls were within expected ranges. | | | The Technical Component Processing and Analysis of this test was | | | completed at [facility], [address] [place] [address] / | | | [address] / [phone] / [place] #[id number] / Waste Recycler(s):Mya | | | Ananth Kim The Professional Component of this test was completed | | | at [facility], [address] [place] [address] | | | [address] / / .(Accession / Case | | | No: [id number] / [id number]). [facility] FISH test uses | | | either FDA cleared and/or analyte specific reagent (ASR) probes. This | | | test was developed and its performancecharacteristics determined by | | | [facility] in [place], [place]. It has not been cleared | [...] within this | | | report are manufacturer's service representative of the patient but not all testing in its | | | entirety andshould not be used to render a result. The CPT codes | | | provided with our test descriptions are based on AMA guidelines and | | | are for informational purposes only. Correct CPT coding is the | | | soleresponsibility of the billing democrat. Please direct any questions | | | regarding coding to the payer being billed. Diagnostician: Franko | | | Ryan MARTINES, FACPPathologistDiagnostician: Chiara Ruiz Backer | | | MDPathologistElectronically Signed 04/07/2020 | | | | | |All controls were within expected ranges. | | | | | |The Technical Component Processing and Analysis of this test was completed at [facility], [address] [place] [address] / [address] / [phone] / CLIA #[id number] / Waste Recycler(s): | | |Mya Kim M.D. The Professional Component of this test was completed at [facility], [address] [facility] [place] [address] / / . | | |(Accession / Case No: [id number] / [id number]). [facility] FISH test uses ei ther FDA cleared and/or analyte specific reagent (ASR) probes. This test was developed and i ts performance | | |characteristics determined by [facility] in [place], [place]. It has not been cleared or [...] may be included within this report are manufacturer's service representative of the patient but not all testing in its entirety and | | |should not be used to render a result. The CPT codes provided with our test descriptions ar e based on AMA guidelines and are for informational purposes only. Correct CPT coding is the sole | | |responsibility of the billing democrat. Please direct any questions regarding coding to [...] | | | | | | longer, jywlhn-zvt-tkgyi use of | | | | | [...] | | | | | | | urzurc-uxo-fbybq use of at least | | | [...]
--- OUTSIDE RECORDS SUMMARY | ~2020-06-23 | XMS | Encounter Summary ---
Demographics + + + | Address | [address] | | | [place] [address] | + + + | Home Phone | | + + + | Preferred Language | Unknown | + + + | Marital Status | Single | + + + | Adventism Affiliation | Unknown | + + + [...] Team Providers + +------+ + | Care Property Clerk Name | Role | Phone | [...] | | | | regions | [place] [address] | [address] | | | | | (HCC) | Phone: | [place] | | | | | Procedures | [phone] | [address] | | | | | [place] | Fax: | Phone: | | | | | | [phone] | [phone] | | | | | RECOMBINANT, | | Fax: | | | | | [address] | | [phone] | | | | | FLUSH | | | +--------+--------+ + + + + Encounter Details +--------+ + + + + | Date | Type | Department | Care Team | Description | +--------+ + + + + | 06/08/ | Hospital | [facility] | Wilton Jeff MD | 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 | | | | | [...] [place] | | | | | | [id number] | | | | | | | | +--------+ + + + + | 06/29/ | Office | Oncology | Wilton Jeff MD | | 2019 | Visit | | [address] | | | | | | [place] | | | | | | [address] | | | | | | | | | | | | Marilou Mmcullen, | | | | | | [place] [address] | | | [address] | | | | | | [place] [address] | | | | | | [phone] | | | | | | | | +--------+ + + + + | 06/29/ | Appointment | Infusion Therapy | Wilton Jeff MD | | | 2019 | | | [address] | | | | | | [place] | | | | | | [address] | | | | | | | | +--------+ + + + + | 07/14/ | Office | Otolaryngology | She Huang | | 2019 | Visit | | DO Sophia Canela | | | | | | [address] | | | | | | [place] [address] | | | | | | [phone] | | | | | | | | +--------+ + + + + | 07/20/ | Appointment | Infusion Therapy | Wilton Jeff MD | | | 2019 | | | [address] | | | | | | [place] | | | | | | [address] | | | | | | | | +--------+ + + + + | 07/20/ | Office | Oncology | Wilton Jeff MD | | | 2019 | Visit | | [address] | | | | | | [place] | | | | | | [address] | | | | | | | | +--------+ + + + + | 07/20/ | Appointment | Infusion Therapy | Wilton Jeff MD | | | 2019 | | | [address] | | | | | | [place] | | | | | | [address] | | | | | | | | +--------+ + + + + | 08/17/ | Appointment | Infusion Therapy | Wilton Jeff MD | | | 2020 | | | [address] | | | | | | [place] | | | | | | [address] | | | | | | | | +--------+ + + + + | 08/17/ | Office | Oncology | Wilton Jeff MD | | | 2019 | Visit | | [address] | | | | | | [place] | | | | | | [address] | | | | | | | [...] [place] | | | | | | [address] | | | | + + + + + + + + | Specimen | + + | Blood | + + + + + + + | Performing | Address | City/State/Zipcode | Phone Number | | Organization | | | | + + + + + | REFERENCE LAB | [address] | [place] | [phone] | | [facility] | [address] | [address] | | | LABORATORY | | | | + + + + + | REFERENCE LAB | [address] | [place] | | | [facility] | Blvd[address] | [address] | | | LABORATORY | | | [...] [place] | | | | | | [address] | | | | | | | | | | + + + + + + + + | Specimen | + + | Blood | + + + + + + + | Performing | Address | City/State/Zipcode | Phone Number | | Organization | | | | + + + + + | REFERENCE LAB | [address] [place], [place] [address] | [place] | [phone] | | [facility] | [address] | [address] | | | LABORATORY | | | | + + + + + | REFERENCE LAB | [address] [place] [address] | [place], [place] | | | [facility] | Blvd[address] | [address] | | | LABORATORY | | | [...]
--- OUTSIDE RECORDS SUMMARY | ~2020-06-23 | XMS | Encounter Summary ---
Demographics + + + | Address | [address] | | | [place] [address] | + + + | Home Phone [...] Team Providers + +------+ + | Care Voice Studies Director Name | Role | Phone | [...] + | 03/30/ | Telephone | [facility] | Wilton Jeff MD | Imaging | | 2019 | | HEMATOLOGY AND | [address] | | | | | ONCOLOGY [address] | [place] | | | | | [address] | [address] | | | | | [place] | | | | | | [address] | | | | | | [phone] | | | +--------+ + + + [...] PM PDTI confir med with [facility] that they will schedule patient for [...] [place] | | | | | | [address] | | | | | | | | +--------+ + + + + | 06/29/ | Office | Oncology | Wilton Jeff MD | | | 2019 | Visit | | [address] | | | | | | [place] | | | | | | [address] | | | | | | | | | | | | Marilou Mcmullen, | | | | | | [address] | | | | | | [address] | | | | | | [place] [address] | | | | | | [phone] | | | | | | | | +--------+ + + + + | 06/29/ | Appointment | Infusion Therapy | Wilton Jeff MD | | | 2019 | | | [address] | | | | | | [place] | | | | | | [address] | | | | | | | | +--------+ + + + + | 07/14/ | Office | Otolaryngology | She Huang | | | 2019 | Visit | | DO Sophia Canela | | | | | | [place] [address] | | | | | | [place] [address] | | | | | | [phone] | | | | | | | | +--------+ + + + + | 07/20/ | Appointment | Infusion Therapy | Wilton Jeff MD | | | 2019 | | | [address] | | | | | | [place] | | | | | | [address] | | | | | | | | +--------+ + + + + | 07/20/ | Office | Oncology | Wilton Jeff MD | | | 2019 | Visit | | [address] | | | | | | [place] | | | | | | [address] | | | | | | | | +--------+ + + + + | 07/20/ | Appointment | Infusion Therapy | Wilton Jeff MD | | | 2019 | | | [address] | | | | | | [place] | | | | | | [address] | | | | | | | | +--------+ + + + + | 08/17/ | Appointment | Infusion Therapy | Wilton Jeff MD | | | 2019 | | | [address] | | | | | | [place] | | | | | | [address] | | | | | | | | +--------+ + + + + | 08/17/ | Office | Oncology | Wilton Jeff MD | | | 2019 | Visit | | [address] | | | | | | [place] | | | | | | [address] | | | | | | | | +--------+ + + + + documented as of this encounter Visit Diagnoses Not on filedocumented in this encounter"
--- OUTSIDE RECORDS SUMMARY | ~2020-06-23 | XMS | Encounter Summary ---
Demographics + + + | Address | [address] | | | [place] [address] | + + + | Home Phone | | + + + | Preferred Language | Unknown | + + + | Marital Status | Single | + + + | Taoist Affiliation | Unknown | + + + | Race | White | + + + | Ethnic Group | Not or | + + + Author + + + | Author | [facility] | | | and [place] | + + + | Organization | [facility] | | [...] Team Providers + +------+ + | Care Client Support Coordinator Name | Role | Phone | [...] + + | 04/17/ | Office | [facility] | Wilton Jeff MD | Diffuse large B-cell | | 2019 | Visit | HEMATOLOGY AND | [address] | lymphoma of lymph | | | | ONCOLOGY [address] | [place] | nodes of multiple | | | | [address] | [address] | regions (HCC) | | | | [place] | | (Primary Dx) | | | | [address] | | | | | | [phone] | | | +--------+---------+ + + + [...] might be different from t he original. [facility] Hematology & Oncology Oncology Progress Note [...] of rituximab on April 06, 2020 at [facility]. He then received days 1-5 of [...] cough, and ly mphadenopathy. His hospitalization in [facility] was uneventful. He feels well today and [...] CERVICAL NODE; Surgeon: She Huang DO; Location: [facility] Family History Problem Relation Age [...] file Gets together: Not on file Attends alevism service: Not on file Active member of [...] Daily. 10 tablet 0 aluminum & magnesium hfwehwxce-iyqwmhveoet-yzmcdiakcxAVVFN-lidocaine Swish and spit 15 mLs every 4 hours as needed for Sore Throat. 600 mL 2 benzonatate (TESSALON) 100 mg capsule Take 100 mg by mouth 3 times daily as needed for Cough. kscepjkprsgzhdt-nssyefgnpvnzvs-thezzjoa (DUKES MOUTHWASH) suspension Swish and spit 10 [...] of rituximab on April 06, 2020 at [facility]. He then received days 1-5 of [...] any questions or concerns. Wilton Jeff MD [facility] Hematology & Oncology 04/17/2020 Portions of this [...] 06/29/ | Appointment | Infusion Therapy | Wliton Jeff MD | | 2019 | | | [address] | | | | | | [place] | | | | | | [address] | | | | | | | | +--------+ + + + + | 06/29/ | Office | Oncology | Wilton Jeff MD | | | 2019 | Visit | | [address] | | | | | | [place] | | | | | | [address] | | | | | | | | | | | | Marilou Mcmullen, | | | | | | SYRUP MIXER ASSISTANT [address] | | | | | | [address] | | | | | | [place] [address] | | | | | | [phone] | | | | | | | | +--------+ + + + + | 06/29/ | Appointment | Infusion Therapy | Wilton Jeff MD | | | 2019 | | | [address] | | | | | | [place] | | | | | | [address] | | | | | | | | +--------+ + + + + | 07/14/ | Office | Otolaryngology | She Huang | | | 2019 | Visit | | DO Sophia Canela | | | | | | [address] | | | | | | [place] [address] | | | | | | [phone] | | | | | | | | +--------+ + + + + | 07/20/ | Appointment | Infusion Therapy | Wilton Jeff MD | | | 2019 | | | [address] | | | | | | [place] | | | | | | [address] | | | | | | | | +--------+ + + + + | 07/20/ | Office | Oncology | Wilton Jeff MD | | | 2019 | Visit | | [address] | | | | | | [place] | | | | | | [address] | | | | | | | | +--------+ + + + + | 07/20/ | Appointment | Infusion Therapy | Wilton Jeff MD | | | 2019 | | | [address] | | | | | | [place] | | | | | | [address] | | | | | | | | +--------+ + + + + | 08/17/ | Appointment | Infusion Therapy | Wilton Jeff MD | | | 2019 | | | [address] | | | | | | [place] | | | | | | [address] | | | | | | | | +--------+ + + + + | 08/17/ | Office | Oncology | Wilton Jeff MD | | | 2019 | Visit | | [address] | | | | | | [place] | | | | | | [address] | | | | | | | | +--------+ + + + + documented as of this encounter Visit Diagnoses + + | Diagnosis | + + | 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
--- OUTSIDE RECORDS SUMMARY | ~2020-06-23 | XMS | Encounter Summary ---
Demographics + + + | Address | [address] | | | [place] [address] | + + + | Home Phone | | + + + | Preferred Language | Unknown | + + + | Marital Status | Single | + + + | Anabaptist Affiliation | Unknown | + + + | Race | White | + + + | Ethnic Group | Not or | + + + Author + + + | Author | [facility] | | | and [place] | + + + | Organization | [facility] | | | [...] Team Providers + +------+ + | Care Newsagent Name | Role | Phone | + +------+ + | Myrna Mejia MD | PCP | | + +------+ + Encounter Details +--------+ + + + + | Date | Type | Department | Care Team | Description | +--------+ + + + + | 04/02/ | Orders Only | [facility] | Wilton Jeff MD | | | 2020 | | HEMATOLOGY AND | [address] | | | | | ONCOLOGY [address] | [place] | | | | | [address] | [address] | | | | | [place] | | | | | | [address] | | | | | | [phone] | | | +--------+ + + + [...] [place] | | | | | | [address] | | | | | | | | +--------+ + + + + | 06/29/ | Office | Oncology | Wilton Jeff MD | | | 2019 | Visit | | [address] | | | | | | [place] | | | | | | [address] | | | | | | | | | | | | Marilou Mcmullen, | | | | | | ARCHITECTURE CONSULTANT [address] | | | | | | [address] | | | | | | [place] [address] | | | | | | [phone] | | | | | | | | +--------+ + + + + | 06/29/ | Appointment | Infusion Therapy | Wilton Jeff MD | | | 2019 | | | [address] | | | | | | [place] | | | | | | [address] | | | | | | | | +--------+ + + + + | 07/14/ | Office | Otolaryngology | She Huang | | | 2019 | Visit | | DO Sophia Canela | | | | | | [place] [address] | | | | | | [place] [address] | | | | | | [phone] | | | | | | | | +--------+ + + + + | 07/20/ | Appointment | Infusion Therapy | Wilton Jeff MD | | | 2019 | | | [address] | | | | | | [place] | | | | | | [address] | | | | | | | | +--------+ + + + + | 07/20/ | Office | Oncology | Wilton Jeff MD | | | 2019 | Visit | | [address] | | | | | | [place] | | | | | | [address] | | | | | | | | +--------+ + + + + | 07/20/ | Appointment | Infusion Therapy | Wilton Jeff MD | | | 2019 | | | [address] | | | | | | [place] | | | | | | [address] | | | | | | | | +--------+ + + + + | 08/17/ | Appointment | Infusion Therapy | Wilton Jeff MD | | | 2019 | | | [address] | | | | | | [place] | | | | | | [address] | | | | | | | | +--------+ + + + + | 08/17/ | Office | Oncology | Wilton Jeff MD | | | 2019 | Visit | | [address] | | | | | | [place] | | | | | | [address] | | | | | | | | +--------+ + + + + documented as of this encounter Procedures + +--------+ + + + | Procedure Name | Priori | Date/Time | Associated Diagnosis | Comments | | | ty | | | | + +--------+ + + + | CBC WITH | Routin | 04/02/2020 | | Results for this | | DIFFERENTIAL | e | 11:41 AM | | procedure are in the | | | | PDT | | results section. | + +--------+ + + + documented in this encounter Results CBC with Differential (04/02/2020 11:41 AM PDT) + + + + + + | Component | Value | Ref Range | Performed | Pathologist | | | | | At | Signature | + + + + + + | WBC | 13.41 (H) | 3.80 - 11.00 | REFERENCE | | | | | K/uL | LAB | | | | | | [facility] | | | | | | [facility]AT[facility] | | + + + + + + | Red Blood | 4.08 (L) | 4.20 - 5.70 | REFERENCE | | | Cells | | M/uL | LAB | | | | | | [facility] | | | | | | [facility] | | + + + + + + | Hemoglobin | 11.7 (L) | 13.2 - 17.0 | REFERENCE | | | | | g/dL | LAB | | | | | | [facility] | | | | | | [facility] | | + + + + + + | Hematocrit | 34.7 (L) | 39.0 - 50.0 % | REFERENCE | | | | | | LAB | | | | | | [facility] | | | | | | [facility] | | + + + + + + | MCV | 85.0 | 80.0 - 100.0 fl | REFERENCE | | | | | | LAB | | | | | | [facility] | | | | | | [facility] | | + + + + + + | MCH | 28.7 | 27.0 - 34.0 pg | REFERENCE | | | | | | LAB | | | | | | [facility] | | | | | | [facility] | | + + + + + + | MCHC | 33.7 | 32.0 - 35.5 | REFERENCE | | | | | g/dL | LAB | | | | | | [facility] | | | | | | [facility] | | + + + + + + | RDW-SD | 42.4 | 37 - 53 fl | REFERENCE | | | | | | LAB | | | | | | [facility] | | | | | | [facility] | | + + + + + + | Platelet | 542 (H) | 150 - 400 K/uL | [...] + + + + | % | 83.52 | % | REFERENCE | | | Neutrophils | | | LAB | | | | | | [facility] | | | | | | [facility] | | + + + + + + | % | 5.69 | % | REFERENCE | | | Lymphocytes | | | LAB | | | | | | [facility] | | | | | | [facility] | | + + + + + + | Monocyte % | 8.12 | % | REFERENCE | | | | | | LAB | | | | | | [facility] | | | | | | [facility] | | + + + + + + | Eosinophils | 1.96 | % | REFERENCE | | | % | | | LAB | | | | | | [facility] | | | | | | [facility] | | + + + + + + | Basophils % | 0.71 | % | REFERENCE | | | | | | LAB | | | | | | [facility] | | | | | | [facility] | | + + + + + + | Neutrophils | 11.20 (H) | 1.90 - 7.40 | REFERENCE | | | , Absolute | | K/uL | LAB | | | | | | [facility] | | | | | | [facility] | | + + + + + + | Absolute | 0.76 (L) | 1.00 - 3.90 | REFERENCE | | | Lymphocytes | | K/uL | LAB | | | | | | [facility] | | | | | | [facility] | | + + + + + + | Absolute | 1.09 (H) | 0.00 - 0.80 | REFERENCE | | | Monocytes | | K/uL | LAB | | | | | | [facility] | | | | | | [facility] | | + + + + + + | Eosinophils | 0.26 | 0.00 - 0.50 | REFERENCE | | | , Absolute | | K/uL | LAB | | | | | | [facility] | | | | | | [facility] | | + + + + + + | Basophils, | 0.10Comment: Testing | 0.00 - 0.10 | REFERENCE | | | Absolute | Performed at [facility], [address] | K/uL | LAB | | | | [address] | | [facility] | | | | [address], [place] | | LABORATORY | | | | [address] | | | | + + + + + + + + | Specimen | + + | | + + + + + + + | Performing | Address | City/State/Zipcode | Phone Number | | Organization | | | | + + + + + | REFERENCE LAB | [address] [place] [address] | [place] | [phone] | | [facility] | [address] | [address] | | | LABORATORY | | | | + + + + + | REFERENCE LAB | [address] [place] [address] | [place] | | | [facility] | [address] | [address] | | | LABORATORY | | | | + + + + + documented in this encounter Visit Diagnoses Not on filedocumented in this encounter"
--- OUTSIDE RECORDS SUMMARY | ~2020-06-23 | XMS | Encounter Summary ---
Demographics + + + | Address | [address] | | | [place] [address] | + + + | Home Phone [...] Team Providers + +------+ + | Care Automotive Technician Name | Role | Phone | + +------+ + | Myrna Mejia MD | PCP | | + +------+ + Encounter Details +--------+ + + + + | Date | Type | Department | Care Team | Description | +--------+ + + + + | 06/05/ | Orders Only | [facility] | Monica Pulido Y, | | | 2019 | | HEMATOLOGY AND | RN | | | | | ONCOLOGY INFUSIONS | | | | | | [address] | | | | [address] [place] | | | | | | [address] | | | | | | [phone] | | | +--------+ + + + [...] [place] | | | | | | [address] | | | | | | | | +--------+ + + + + | 06/29/ | Office | Oncology | Wilton Jeff MD | | | 2019 | Visit | | [address] | | | | | | [place] | | | | | | [address] | | | | | | | | | | | | Marilou Mcmullen, | | | | | | SHELLS INSPECTOR [address] | | | | | | [address] | | | | | | [place] [address] | | | | | | [phone] | | | | | | | | +--------+ + + + + | 06/29/ | Appointment | Infusion Therapy | Wilton Jeff MD | | | 2019 | | | [address] | | | | | | [place] | | | | | | [address] | | | | | | | | +--------+ + + + + | 07/14/ | Office | Otolaryngology | She Huang | | | 2019 | Visit | | DO Sophia Canela | | | | | | [place] [address] | | | | | | [place] [address] | | | | | | [phone] | | | | | | | | +--------+ + + + + | 07/20/ | Appointment | Infusion Therapy | Wilton Jeff MD | | | 2019 | | | [address] | | | | | | [place] | | | | | | [address] | | | | | | | | +--------+ + + + + | 07/20/ | Office | Oncology | Wilton Jeff MD | | | 2019 | Visit | | [address] | | | | | | [place] | | | | | | [address] | | | | | | | | +--------+ + + + + | 07/20/ | Appointment | Infusion Therapy | Wilton Jeff MD | | | 2019 | | | [address] | | | | | | [place] | | | | | | [address] | | | | | | | | +--------+ + + + + | 08/17/ | Appointment | Infusion Therapy | Wilton Jeff MD | | | 2019 | | | [address] | | | | | | [place] | | | | | | [address] | | | | | | | | +--------+ + + + + | 08/17/ | Office | Oncology | Wilton Jeff MD | | | 2020 | Visit | | [address] | | | | | | [place] | | | | | | [address] | | | | | | | | +--------+ + + + + documented as of this encounter Visit Diagnoses Not on filedocumented in this encounter"
--- OUTSIDE RECORDS SUMMARY | ~2020-06-23 | XMS | Encounter Summary ---
Demographics + + + | Address | [address] | | | [place] [address] | + + + | Home Phone | | + + + | Preferred Language | Unknown | + + + | Marital Status | Single | + + + | Denominational Affiliation | Unknown | + + + [...] Team Providers + +------+ + | Care Bog Worker Name | Role | Phone | + +------+ + | Myrna Mejia MD | PCP | | + +------+ + Encounter Details +--------+ + + + + | Date | Type | Department | Care Team | Description | +--------+ + + + + | 04/02/ | Orders Only | [facility] | Wilton Jeff MD | Mediastinal large | | 2019 | | HEMATOLOGY AND | [address] | B-cell lymphoma of | | | | ONCOLOGY [address] | [place], [place] | lymph nodes of | | | | [address] | [address] | multiple regions | | | | [place], [place] | | (HCC) (Primary Dx) | | | | [address] | | | | | | [phone] | | | +--------+ + + + [...] [place] | | | | | | [address] | | | | | | | | +--------+ + + + + | 06/29/ | Office | Oncology | Wilton Jeff MD | | | 2019 | Visit | | [address] | | | | | | [place] | | | | | | [address] | | | | | | | | | | | | Marilou Mcmullen, | | | | | | PRODUCTION GRAPHIC DESIGNER [address] | | | | | [address] | | | | | | [place] [address] | | | | | | [phone] | | | | | | | | +--------+ + + + + | 06/29/ | Appointment | Infusion Therapy | Wilton Jeff MD | | | 2019 | | | [address] | | | | | | [place] | | | | | | [address] | | | | | | | | +--------+ + + + + | 07/14/ | Office | Otolaryngology | She Huang | | | 2019 | Visit | | DO Sophia Canela | | | | | | [place] [address] | | | | | | [place] [address] | | | | | | [phone] | | | | | | | | +--------+ + + + + | 07/20/ | Appointment | Infusion Therapy | Wilton Jeff MD | | | 2019 | | | [address] | | | | | | [place] | | | | | | [address] | | | | | | | | +--------+ + + + + | 07/20/ | Office | Oncology | Wilton Jeff MD | | | 2019 | Visit | | [address] | | | | | | [place] | | | | | | [address] | | | | | | | | +--------+ + + + + | 07/20/ | Appointment | Infusion Therapy | Wilton Jeff MD | | | 2019 | | | [address] | | | | | | [place] | | | | | | [address] | | | | | | | | +--------+ + + + + | 08/17/ | Appointment | Infusion Therapy | Wilton Jeff MD | | | 2019 | | | [address] | | | | | | [place] | | | | | | [address] | | | | | | | | +--------+ + + + + | 08/17/ | Office | Oncology | Wilton Jeff MD | | | 2020 | Visit | | [address] | | | | | | [place] | | | | | | [address] | | | | | | | | +--------+ + + + + documented as of this encounter Visit Diagnoses + + | Diagnosis | + + | 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
--- OUTSIDE RECORDS SUMMARY | ~2020-06-23 | XMS | Encounter Summary ---
Demographics + + + | Address | [address] | | | [place] [address] | + + + | Home Phone | | + + + | Preferred Language | Unknown | + + + | Marital Status | Single | + + + | Synagogue Affiliation | Unknown | + + + | Race | White | + + + | Ethnic Group | Not or | + + + Author + + + | Author | [facility] | | | and [place] | + + + | Organization | [facility] | | | and [...] Providers + +------+ + | Care Health Program Director Name | Role | Phone | [...] | | | lung lobe | [address] | [place], [place] | | | | | Procedures | [address] | [address] | | | | | PET CT Skull | [place], [place] | Phone: | | | | | Base To Mid | [address] | [phone] | | | | | Thigh | Phone: | Fax: | | | | | | [phone] | [phone] | | | | | | Fax: | | | | | | | [phone] | | +--------+--------+ + + + + Reason for Visit Evaluate & Treat (Urgent) + +--------+ + + + + | Status | Reason | Specialty | Diagnoses / | Referred By | Referred To | | | | | Procedures | Contact | Contact | + +--------+ + + + + | Authorized | | Pulmonary | Diagnoses | Roberto | Jake, | | | | Disease / | Other | Myrna Heath MD | Tali | | | | Pulmonology | nonspecific | [address] | MD Naheed | | | | | abnormal | [address] | [address] | | | | | finding of | VIN | [address] | | | | | lung field | [place] [address] | [place] | | | | | Generalized | Phone: | [address] Phone: | | | | | enlarged | [phone] | [phone] | | | | | lymph nodes | Fax: | Fax: | | | | | | [phone] | [phone] | + +--------+ + + + + Encounter Details +--------+---------+ + + + | Date | Type | Department | Care Team | Description | +--------+---------+ + + + | 03/09/ | Office | [facility] | Jake, | Cavitating mass in | | 2020 | Visit | PULMONOLOGY [address] | Tali Farfan, | right upper lung | | | | [address] | MD [address] | lobe (Primary Dx); | | | | [place] | [place], | Poor dentition | | | | [address] | [place] [address] | | | | | [phone] | [phone] | | | | | | | | +--------+---------+ + + + [...] + + + | Blood Pressure | 121/73 | 03/09/2020 2:54 PM | | | | | PDT | | + + + + + | Pulse | 114 | 03/09/2020 2:54 PM | | | | | PDT | | + + + + + | Temperature | 36.9 C (98.5 F) | 03/09/2020 2:54 PM | | | | | PDT | | + + + + + | Respiratory Rate | - | - | | + + + + + | Oxygen Saturation | 95% | 03/09/2020 2:54 PM | | | | | PDT | | + + + + + | Inhaled Oxygen | - | - | | | Concentration | | | | + + + + + | Weight | 85.3 kg (188 lb) | 03/09/2020 2:54 PM | | | | | PDT | | + + + + + | Height | - | - | | + + + + + | Body Mass Index | - | - | | + + + + + documented in this encounter Progress Notes Tali Joseph MD - 03/09/2020 3:00 PM PDTThank you! ayetanoTali MD - 03/09/2020 3:00 PM PDT Subjective Patient ID: Asad Longo is a 29 y.o. male without significant medical issues, refer red for a RUL cavitary lesion and adenopathy. JOSEPH Kamara is a pleasant 29 yr old man who was sent to us due to a large right upper lobe cavita ry lesion and mediastinal adenopathy. He is currently being treated for a necrotizing pneumo vivian, and has been on Augmentin for about 3 weeks now. He has had a cough which has been pres ent since Oct 2019, which he though initially was from a URI as most of his family members christina fong had this as well. He reports that his cough lingered, and in February, started having hemopt ysis. He went into the ED, underwent a CT of the chest and was prescribed a course of abx (A ugmentin) for 2 weeks. He has been placed on a second course since then. At that time, he aaron s had associated symptoms of dyspnea on exertion, chest pain on the R side, and chest heavin ess. He says that he also has lost 20 lbs since Oct 2019. His appetite has been decreased du e to nausea, but he has been eating better now. He also says that his cough is improved, but still is producing a significant amount of phlegm in the AM without hemoptysis. He also fee ls that his breathing is better since initiation of treatment. He has been sleeping well, an d through the night. He has poor dentition, but denies having any pain. He denies overt aspi ration or dysphagia. He has been afebrile currently. SOCIAL HISTORY He smoked for about 7 years, and in the past 4 years was smoking a pack a day. He stopped s salvatore getting ill this February. He has a family history of cancer -mother had breast and cervica l [place]. 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 The following elements of the patient's history were reviewed and updated as appropriate. T hey are available elsewhere in the patient record. allergies, current medications, past fam jacqueline history, past medical history, past social history, past surgical history and problem li st Review of Systems Constitutional: Positive for fatigue. Negative for fever and unexpected weight change. HENT: Positive for congestion. Negative for sore throat, trouble swallowing and voice urban e. Respiratory: Positive for cough, chest tightness and shortness of breath. Negative for apne a, choking, wheezing and stridor. Cardiovascular: Positive for chest pain. Negative for palpitations and leg swelling. Gastrointestinal: Negative for abdominal pain, constipation, diarrhea, nausea and vomiting. Genitourinary: Negative for difficulty urinating. Musculoskeletal: Negative for arthralgias, back pain, gait problem, joint swelling, myalgia s and neck pain. Skin: Negative for rash. Neurological: Negative for dizziness. Psychiatric/Behavioral: Negative for sleep disturbance. All other systems reviewed and are negative. History reviewed. No pertinent past medical history. History reviewed. No pertinent surgical history. Objective BP 121/73 | Pulse 114 | Temp 36.9 C (98.5 F) (Oral) | Wt 85.3 kg (188 lb) | SpO2 95 % Physical Exam Vital signs reviewed. Oxygen saturation noted at 95% on ambient air GENERAL: pleasant, cooperative, oriented, not in distress HEENT: pink conjunctiva, anicteric sclerae, moist oral mucosae and without any lesions, nor mal appearing nasal mucosae; no JVD; MALAMPATTI 2; no thyromegaly; palpable small adenopathy on the right anterior traingle; poor dentition with dental carries present CVS: PMI non displaced, tachycardic, S1 and S2, no murmurs/gallops/rubs CHEST: Examination of the chest was unremarkable. There were no bony deformities, no asymme try, and no other abnormalities. LUNGS: Normal effort, Equal in expansion, resonant to percussion, clear and equal breath so unds, no wheezes/rales/rhonchi; however, egophony noted on exam in the RUL ABDOMEN: Flat abdomen, NABS, non-tender on palpation, Traube's space intact, liver span nor mal, no masses palpated EXTREMITIES: good distal pulses, no cyanosis, no edema, no clubbing, no nail abnormalities NEURO: awake and oriented, gait normal, no focal neurologic deficits LABORATORY AND IMAGING Pulmonary Function Test: None to review FEV1 FVC FEV1/FVC TLC RV/TLC DLCO Labs 03/04/20: LDH 187 ESR 40 HIV, SAMANTHA reported negative CT of the chest done on 02/21/20 reviewed Large cavitary mass in the R lung with extensive mediastinal, chest wall, and axillary maurilio opathy. Small pericardial effusion and epicardial fat nodularity. Assessment /Plan 1. Cavitating mass in right upper lung lobe Mr Longo is a 29 yr old man, previously healthy, presenting with a cough since Oct 2019, an d then later on presenting with worsening s/s, and hemoptysis. CT of the chest in February 2020 showed a large cavitary lesion with mediastinal and axillary adenopathy. He was treated as h aving necrotizing/aspiration pneumonia with Augmentin. He feels somewhat better, but conside ring how his CT imaging appears, with his weight loss, and presence of adenopathy and perica rdial effusion, I am deeply concerned about malignancy. He was taken by surprise by what I have explained. Nevertheless, he has agreed to go ahead and get a PET CT stat through [facility]. If unimproved, will go ahead and get a diagnostic bron ch with EBUS. I have explained that he will need a COVID test 2-3 days before the procedure. He understood this. I have also requested for sputum CS and AFB CS, as well as cocci titer for completion of wo rk up. - Coccidioides Ab, IgG and IgM - PET CT Skull Base To Mid Thigh; Future - Coronavirus (COVID-19) NAAT; Future - Culture, AFB Smear; Future - Culture, Respiratory, Lower, Smear; Future 2. Poor dentition Consider getting his teeth pulled. Continue with oral hygiene. Thank you for allowing us to participate in this patient's care. A return visit will be lissa eduled depending on work up above. The patient was instructed to call our clinic for any questions, and for any concerns regar ding worsening dyspnea, cough or change in sputum production. Tali Joseph MD Pulmonary and Critical Care Medicine [facility] [address], [place] [address] documente d in this encounter Plan of [...] [place] | | | | | | [address] | | | | | | | | +--------+ + + + + | 06/29/ | Office | Oncology | Wilton Jeff MD | | 2019 | Visit | | [address] | | | | | | [place] | | | | | | [address] | | | | | | | | | | | | Marilou Mcmullen, | | | | | | [address] | | | | | [address] | | | | | | [place] [address] | | | | | | [phone] | | | | | | | | +--------+ + + + + | 06/29/ | Appointment | Infusion Therapy | Wilton Jeff MD | | | 2019 | | | [address] | | | | | | [place] | | | | | | [address] | | | | | | | | +--------+ + + + + | 07/14/ | Office | Otolaryngology | She Huang | | 2019 | Visit | | DO Sophia Canela | | | | | | [address] | | | | | | [place] [address] | | | | | | [phone] | | | | | | | | +--------+ + + + + | 07/20/ | Appointment | Infusion Therapy | Wilton Jeff MD | | | 2019 | | | [address] | | | | | | [place] | | | | | | [address] | | | | | | | | +--------+ + + + + | 07/20/ | Office | Oncology | Wilton Jeff MD | | | 2019 | Visit | | [address] | | | | | | [place] | | | | | | [address] | | | | | | | | +--------+ + + + + | 07/20/ | Appointment | Infusion Therapy | Wilton Jeff MD | | | 2019 | | | [address] | | | | | | [place] | | | | | | [address] | | | | | | | | +--------+ + + + + | 08/17/ | Appointment | Infusion Therapy | Wilton Jeff MD | | | 2019 | | | [address] | | | | | | [place] | | | | | | [address] | | | | | | | | +--------+ + + + + | 08/17/ | Office | Oncology | Wilton Jeff MD | | | 2019 | Visit | | [address] | | | | | | [place] | | | | | | [address] | | | | | | | | +--------+ + + + + + + +--------+ + + | Name | Type | Priori | Associated Diagnoses | Order Schedule | | | | ty | | | + + +--------+ + + | Coccidioides Ab, IgG | Lab | Routin | Cavitating mass in | Ordered: 03/09/2020 | | and IgM | | e | right upper lung | | | | | | lobe | | + + +--------+ + + | Coronavirus | Microbiolog | Routin | Cavitating mass in | 1 Occurrences | | (COVID-19) NAAT | y | e | right upper lung | starting 03/09/2020 | | | | | lobe | until 03/09/2021 | + + +--------+ + + | Culture, AFB Smear | Microbiolog | Routin | Cavitating mass in | Expected: | | | y | e | right upper lung | 03/09/2020, Expires: | | | | | lobe | 03/09/2021 | + + +--------+ + + | Culture, | Microbiolog | Routin | Cavitating mass in | Expected: | | Respiratory, Lower, | y | e | right upper lung | 03/09/2020, Expires: | | Smear | | | lobe | 03/09/2021 | + + +--------+ + + documented as of this encounter Results PET CT Skull Base [...] Procedure Note | + + | Stan, [id number] - 03/16/2020 12:20 PM PDT EXAM DESCRIPTION [...] Ananth Gilliam Richard | | Sign Date/Time: 03/16/2020 12:17 PM [...] Cavitating mass in right upper lung lobe - Primary Other diseases of lung, not | | elsewhere classified | + + | Poor dentition Unspecified disorder of the teeth and supporting structures | + + documented in this encounter"
--- OUTSIDE RECORDS SUMMARY | ~2020-06-23 | XMS | Encounter Summary ---
Demographics + + + | Address | [address] | | | [place] [address] | + + + | Home Phone [...] Author + + + | Author | [facility] | | | and [place] | + + + | Organization | [facility] | | | and [...] Team Providers + +------+ + | Care Tester Food Products Name | Role | Phone | + [...] | of multiple | [place], | [place] [address] | | | | | regions | [place] [address] | Phone: | | | | | (HCC) | Phone: | [phone] | | | | | Procedures | [phone] | Fax: | | | | | [place] | Fax: | [phone] | | | | | VINCRISTINE | [phone] | | | | | | SULFATE 1 MG | | | | | | | INJ MA | | | | | | | DOXORUBICIN | | | | | | | HCL | | | | | | | INJECTION, | | | | | | | 10 MG MA | | | | | | | CYCLOPHOSPHA | | | | | | | MIDE 100 MG | | | | | | | INJ MA | | | | | | | ETOPOSIDE | | | | | | | INJECTION, | | | | | | | 10 MG MA | | | | | | | PALONOSETRON | | | | | | | HCL, 25 MCG | | | | | | | MA | | | | | | | INJECTION, | | | | | | | UDENYCA 0.5 | | | | | | | MG MA INJ | | | | | | | TRUXIMA 10 | | | | | | | MG [id number] - | | | | | | | MA INJ | | | | | | | TRUXIMA 10 | | | | | | | MG- | | | | | | | RITUXIMAB-ab | | | | | | | bs [id number] - | | | | | | | MA | | | | | | | VINCRISTINE | | | | | | | SULFATE 1 MG | | | | | | | INJ [id number] | | | | | | | - MA | | | | | | | DOXORUBICIN | | | | | | | HCL | | | | | | | INJECTION, | | | | | | | 10 MG- DOXO | | | | | | | [id number] - MA | | | | | | | | | | | | | | CYCLOPHOSPHA | | | | | | | MIDE 100 MG | | | | | | | INJ- CYTOXAN | | | | | | | [id number] - | | | | | | | MA ETOPOSIDE | | | | | | | INJECTION, | | | | | | | 10 MG Q5111 | | | | | | | - MA | | | | | | | INJECTION, | | | | | | | UDENYCA 0.5 | | | | | | | MG [id number] - | | | | | | | MA | | | | | | | [...] + + | 04/27/ | Hospital | [facility] | Wilton Jeff MD | 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 A special MedGuide will be given to you by the pharmacist with each prescription and refill . Be sure to read this information carefully each time. Talk to your editor index regarding the use of this medicine in children. This medicine is not approved for use in children. What side effects may I notice from receiving this medicine? Side effects that you should report to your doctor or health health care legal assistant as soon as p ossible: allergic reactions [...] attention (report to your doctor or health health care legal assistant if they continue or are bothersome): headache joint pain muscle cramps or muscle pain nausea tiredness What may interact with this medicine? cisplatin live virus vaccines What if I miss a dose? It is important not to miss a dose. Call your doctor or health health care legal assistant if you are unable to keep an [...] medical care. Call your doctor or health health care legal assistant for advice if you get a fever, [...] to an unborn child. Talk to your [facility] health care legal assistant or pharmacist for more information. Do not breast-feed an infant while taking this medicine or for at least 6 months after stopping it. NOTE:This sheet is a summary. It may not cover all possible information. If you have questi ons about this medicine, talk to your doctor, pharmacist, or health care provider. Copyright 2020 [employer] documented in this encounter Medications at Time [...] Sore | | | | | | [id number] | Throat. | | | | | [...] for any concerns or questions. Discharged to [facility] with copy of labs and calendar for next appointment. NEXT APPOINTMENT: May 05, 2020 3:00 PM: INJECTION with KCHO INJECTION in [facility] HEMATOLOGY AND ONCOLOGY INFUSIONS documented in th [...] [place] | | | | | | [address] | | | | | | | | +--------+ + + + + | 06/29/ | Office | Oncology | Wilton Jeff MD | | | 2019 | Visit | | [address] | | | | | | [place] | | | | | | [address] | | | | | | | | | | | | Marilou Mcmullen, | | | | | | [address] | | | | | | [address] | | | | | | [place] [address] | | | | | | [phone] | | | | | | | | +--------+ + + + + | 06/29/ | Appointment | Infusion Therapy | Wilton Jeff MD | | | 2019 | | | [address] | | | | | | [place] | | | | | | [address] | | | | | | | | +--------+ + + + + | 07/14/ | Office | Otolaryngology | She Huang | | | 2019 | Visit | | DO Sophia Canela | | | | | | [place] [address] | | | | | | [place] [address] | | | | | | [phone] | | | | | | | | +--------+ + + + + | 07/20/ | Appointment | Infusion Therapy | Wilton Jeff MD | | | 2019 | | | [address] | | | | | | [place] | | | | | | [address] | | | | | | | | +--------+ + + + + | 07/20/ | Office | Oncology | Wilton Jeff MD | | | 2019 | Visit | | [address] | | | | | | [place] | | | | | | [address] | | | | | | | | +--------+ + + + + | 07/20/ | Appointment | Infusion Therapy | Wilton Jeff MD | | | 2019 | | | [address] | | | | | | [place] | | | | | | [address] | | | | | | | | +--------+ + + + + | 08/17/ | Appointment | Infusion Therapy | Wilton Jeff MD | | | 2019 | | | [address] | | | | | | [place] | | | | | | [address] | | | | | | | | +--------+ + + + + | 08/17/ | Office | Oncology | Wilton Jeff MD | | | 2019 | Visit | | [address] | | | | | | [place] | | | | | | [address] | | | | | | | [...] | | | | over 60 minutes. [id number] Bag | | | | | | | conc: 1.38 mg/mL @ 50mg/hr | | | | | | | rate= 36 mL/hr @ 100mg/hr rate= | | | | | | | 72 mL/hr @ 400mg/hr rate= 290 | | | | | | | ml/hr Or UF=102 mL Bag Conc=1.38 | | | | | | | mg/mL (calc to nearest 100th) 30 | | | | | | | minute infusion (20% dose) = | | | | | | | 160mg/30 min b1=778vg/hr (232 | | | | | | [...]
--- OUTSIDE RECORDS SUMMARY | ~2020-06-23 | XMS | Encounter Summary ---
Demographics + + + | Address | [address] | | | [place] [address] | + + + | Home Phone [...] Providers + +------+ + | Care Business Excellence Manager Name | Role | Phone | [...] | | y | | Tali | hSe Canela DO | | | | | Lymphadenopa | MD Naheed | [address] | | | | | thy of head | [address] | | | | | and neck | [address] | [place], | | | | | region | [place] | [place] [address] | | | | | | [place], [place] | Phone: | | | | | | [address] | [phone] | | | | | | Phone: | Fax: | | | | | | [phone] | [phone] | | | | | | Fax: | | | | | | | [phone] | | +--------+--------+ + + + + Encounter Details +--------+---------+ + + + | Date | Type | Department | Care Team | Description | +--------+---------+ + + + | 03/26/ | Office | [facility] | She Huang | Cervical | | 2020 | Visit | NOSE AND THROAT [address] | J, DO [address] | lymphadenopathy | | | | [address] | [address] | (Primary Dx); | | | | [place], [place] | [place] [address] | Supraclavicular | | | | [address] | [phone] | adenopathy; Night | | | | [phone] | | sweats | +--------+---------+ + + [...] encounter Patient Instructions Patient Instructions Josefa Palumbo Dish Carrier - 03/26/2020 1:45 PM PDTWhat is C oronavirus? The Novel Coronavirus 2019 (COVID-19) is a new virus strain that is spread mainly from pers dp-cp-dsjoot through respiratory droplets when an infected person [...] are not available, use an alcohol-based hand silk screen printer machine with at least 60 % alcohol covering [...] and need to call 911, notify the french edge operator that you have or think you [...] COVID-19 symptoms, residents in nursing facilities or group home communities or home health, or those who [...] or preparing your food. ? Use hand silk screen printer machine if soap and water are not available. [...] with soap and water or in the manufacturing quality inspector/washer. ? Call ahead before visiting your doctor. [...] local public health website. CDC: COVID-19: https://www.cdc.gov/coronavirus/2019-ncov/index.html [place] Coronavirus Advisory: https://www.[facility].org/qwquaolb-jee-wladbwdv/coron avirus-advisory Virtual Visits Available https://virtual.[facility].org/ documented in this encounter Progress Notes [...] Dr. Huang . I, Dr. She Huang DTiffanie, personally performed the services described in this documenta tion, as scribed by Josefa Dickey CMA in my presence, and it is accurate and complete. Portions of this chart note have been created with a voice recognition system. The possibil ity of "sound alike" ophthalmologist retina specialist errors, additions or deletions may occur. If [...] [place] | | | | | | [address] | | | | | | | | +--------+ + + + + | 06/29/ | Office | Oncology | Wilton Jeff MD | | | 2019 | Visit | | [address] | | | | | | [place] | | | | | | [address] | | | | | | | | | | | | Marilou Mcmullen, | | | | | | [employer] [address] | | | | [address] | | | | | | [place] [address] | | | | | | [phone] | | | | | | | | +--------+ + + + + | 06/29/ | Appointment | Infusion Therapy | Wilton Jeff MD | | | 2019 | | | [address] | | | | | | [place] | | | | | | [address] | | | | | | | | +--------+ + + + + | 07/14/ | Office | Otolaryngology | She Huang | | | 2019 | Visit | | DO Sophia Canela | | | | | | [place] [address] | | | | | | [place] [address] | | | | | | [phone] | | | | | | | | +--------+ + + + + | 07/20/ | Appointment | Infusion Therapy | Wilton Jeff MD | | | 2019 | | | [address] | | | | | | [place] | | | | | | [address] | | | | | | | | +--------+ + + + + | 07/20/ | Office | Oncology | Wilton Jeff MD | | | 2019 | Visit | | [address] | | | | | | [place] | | | | | | [address] | | | | | | | | +--------+ + + + + | 07/20/ | Appointment | Infusion Therapy | Wilton Jeff MD | | | 2019 | | | [address] | | | | | | [place] | | | | | | [address] | | | | | | | | +--------+ + + + + | 08/17/ | Appointment | Infusion Therapy | Wilton Jeff MD | | | 2019 | | | [address] | | | | | | [place] | | | | | | [address] | | | | | | | | +--------+ + + + + | 08/17/ | Office | Oncology | Wilton Jeff MD | | | 2020 | Visit | | [address] | | | | | | [place] | | | | | | [address] | | | | | | | [...]
--- OUTSIDE RECORDS SUMMARY | ~2020-06-23 | XMS | Encounter Summary ---
Demographics + + + | Address | [address] | | | [place] [address] | + + + | Home Phone [...] Team Providers + +------+ + | Care Wood Technologist Name | Role | Phone | + +------+ + | Myrna Mejia MD | PCP | | + +------+ + Encounter Details +--------+ + + + + | Date | Type | Department | Care Team | Description | +--------+ + + + + | 03/19/ | Preadmit | [facility] | She Huang | | | 2020 | Visit | CENTER PREADMIT | J, DO [address] | | | | | CLINIC [address] | | | | | BLVD [place], [place] | [place] [address] | | | | | [address] | [phone] | | | | | [phone] | | | +--------+ + + + [...] for the 03/19/20 encounter (Preadmit Visit) with [facility] ROOM 2 Medication Sig Instructions albuterol (VENTOLIN [...] [place] | | | | | | [address] | | | | | | | | +--------+ + + + + | 06/29/ | Office | Oncology | Wilton Jeff MD | | | 2019 | Visit | | [address] | | | | | | [place] | | | | | | [address] | | | | | | | | | | | | Marilou Mcmullen, | | | | | | RING MAKER [address] | | | | | | [address] | | | | | | [place] [address] | | | | | | [phone] | | | | | | | | +--------+ + + + + | 06/29/ | Appointment | Infusion Therapy | Wilton Jeff MD | | | 2019 | | | [address] | | | | | | [place] | | | | | | [address] | | | | | | | | +--------+ + + + + | 07/14/ | Office | Otolaryngology | Sal, She | | | 2019 | Visit | | DO Sophia Canela | | | | | | [address] | | | | | | [place] [address] | | | | | | [phone] | | | | | | | | +--------+ + + + + | 07/20/ | Appointment | Infusion Therapy | Wilton Jeff MD | | | 2019 | | | [address] | | | | | | [place] | | | | | | [address] | | | | | | | | +--------+ + + + + | 07/20/ | Office | Oncology | Wilton Jeff MD | | | 2019 | Visit | | [address] | | | | | | [place] | | | | | | [address] | | | | | | | | +--------+ + + + + | 07/20/ | Appointment | Infusion Therapy | Wilton Jeff MD | | | 2019 | | | [address] | | | | | | [place] | | | | | | [address] | | | | | | | | +--------+ + + + + | 08/17/ | Appointment | Infusion Therapy | Wilton Jeff MD | | | 2019 | | | [address] | | | | | | [place] | | | | | | [address] | | | | | | | | +--------+ + + + + | 08/17/ | Office | Oncology | Wilton Jeff MD | | | 2019 | Visit | | [address] | | | | | | [place] | | | | | | [address] | | | | | | | | +--------+ + + + + documented as of this encounter Visit Diagnoses Not on filedocumented in this encounter
--- OUTSIDE RECORDS SUMMARY | ~2020-06-23 | XMS | Encounter Summary ---
Demographics + + + | Address | [address] | | | [place] [address] | + + + | Home Phone | | + + + | Preferred Language | Unknown | + + + | Marital Status | Single | + + + | Sikh Affiliation | Unknown | + + + | Race | White | + + + | Ethnic Group | Not or | + + + Author + + + | Author | [facility] | | | and [place] | + + + | Organization | [facility] | | [...] Team Providers + +------+ + | Care Applied Anthropologist Name | Role | Phone | + +------+ + PCP | Unavailable | + +------+ + Encounter Details +--------+ + + + + | Date | Type | Department | Care Team | Description | +--------+ + + + + | 03/04/ | Imaging | SCOTTIE DOBBINS | Provider, | | | 2019 | Exam | [facility] | MD [address] | | | | | IMAGING [address] | [address] | | | | | [address] | [place] [address] | | | | | [place] [address] | | | | | | [phone] | | | +--------+ + + + [...] [place] | | | | | | [address] | | | | | | | | +--------+ + + + + | 06/29/ | Office | Oncology | Wilton Jeff MD | | | 2019 | Visit | | [address] | | | | | | [place] | | | | | | [address] | | | | | | | | | | | | Marilou Mcmullen, | | | | | | HEALTHCARE MARKETER [address] | | | | | | [address] | | | | | | [place] [address] | | | | | | [phone] | | | | | | | | +--------+ + + + + | 06/29/ | Appointment | Infusion Therapy | Wilton Jeff MD | | | 2019 | | | [address] | | | | | | [place] | | | | | | [address] | | | | | | | | +--------+ + + + + | 07/14/ | Office | Otolaryngology | She Huang | | | 2019 | Visit | | DO Sophia Canela | | | | | | [place] [address] | | | | | | [place] [address] | | | | | | [phone] | | | | | | | | +--------+ + + + + | 07/20/ | Appointment | Infusion Therapy | Wilton Jeff MD | | | 2019 | | | [address] | | | | | | [place] | | | | | | [address] | | | | | | | | +--------+ + + + + | 07/20/ | Office | Oncology | Wilton Jeff MD | | | 2019 | Visit | | [address] | | | | | | [place] | | | | | | [address] | | | | | | | | +--------+ + + + + | 07/20/ | Appointment | Infusion Therapy | Wilton Jeff MD | | | 2019 | | | [address] | | | | | | [place] | | | | | | [address] | | | | | | | | +--------+ + + + + | 08/17/ | Appointment | Infusion Therapy | Wilton Jeff MD | | | 2019 | | | [address] | | | | | | [place] | | | | | | [address] | | | | | | | | +--------+ + + + + | 08/17/ | Office | Oncology | Wilton Jeff MD | | | 2019 | Visit | | [address] | | | | | | [place], [place] | | | | | | [address] | | | | | | | [...]
--- OUTSIDE RECORDS SUMMARY | ~2020-06-23 | XMS | Encounter Summary ---
Demographics + + + | Address | [address] | | | [place] [address] | + + + | Home Phone [...] Team Providers + +------+ + | Care Sales Correspondence Clerk Name | Role | Phone | [...] + + | 03/30/ | Telephone | [facility] | Judit Liu, | Paperwork | | 2019 | | HEMATOLOGY AND | Solder Cream Maker | | | | | ONCOLOGY [address] | | | | | [address] | | | | | | [place] | | | | | | [address] | | | | | | [phone] | | | +--------+ + + + [...] Miscellaneous Notes Telephone Encounter - Judit Liu, Solder Cream Maker - 03/30/2020 11:51 AM PDTSpoke wi th [...] [place] | | | | | | [address] | | | | | | | | +--------+ + + + + | 06/29/ | Office | Oncology | Wilton Jeff MD | | | 2019 | Visit | | [address] | | | | | | [place] | | | | | | [address] | | | | | | | | | | | | Marilou Mcmullen, | | | | | | MEDICAL ANTHROPOLOGIST [address] | | [address] | | | | | | [place] [address] | | | | | | [phone] | | | | | | | | +--------+ + + + + | 06/29/ | Appointment | Infusion Therapy | Wilton Jeff MD | | | 2019 | | | [address] | | | | | | [place] | | | | | | [address] | | | | | | | | +--------+ + + + + | 07/14/ | Office | Otolaryngology | She Huang | | | 2019 | Visit | | DO Sophia Canela | | | | | | [address] | | | | | | [place] [address] | | | | | | [phone] | | | | | | | | +--------+ + + + + | 07/20/ | Appointment | Infusion Therapy | Wilton Jeff MD | | | 2019 | | | [address] | | | | | | [place] | | | | | | [address] | | | | | | | | +--------+ + + + + | 07/20/ | Office | Oncology | Wilton Jeff MD | | | 2019 | Visit | | [address] | | | | | | [place] | | | | | | [address] | | | | | | | | +--------+ + + + + | 07/20/ | Appointment | Infusion Therapy | Wilton Jeff MD | | | 2019 | | | [address] | | | | | | [place] | | | | | | [address] | | | | | | | | +--------+ + + + + | 08/17/ | Appointment | Infusion Therapy | Wilton Jeff MD | | | 2019 | | | [address] | | | | | | [place] | | | | | | [address] | | | | | | | | +--------+ + + + + | 08/17/ | Office | Oncology | Wilton Jeff MD | | | 2019 | Visit | | [address] | | | | | | [place] | | | | | | [address] | | | | | | | | +--------+ + + + + documented as of this encounter Visit Diagnoses Not on filedocumented in this encounter"
--- OUTSIDE RECORDS SUMMARY | ~2020-06-23 | XMS | Encounter Summary ---
Demographics + + + | Address | [address] | | | [place] [address] | + + + | Home Phone [...] Author + + + | Author | [facility] | | | and [place] | + + + | Organization | [facility] | [...] Team Providers + +------+ + | Care Allied Health Professional Name | Role | Phone | + +------+ + | Myrna Mejia MD | PCP | | + +------+ + Encounter Details +--------+ + + + + | Date | Type | Department | Care Team | Description | +--------+ + + + + | 04/15/ | Orders Only | [facility] | Wilton Jeff MD | | | 2020 | | HEMATOLOGY AND | [address] | | | | | ONCOLOGY [address] | [place] | | | | | [address] | [address] | | | | | [place] | | | | | | [address] | | | | | | [phone] | | | +--------+ + + + [...] [place] | | | | | | [address] | | | | | | | | +--------+ + + + + | 06/29/ | Office | Oncology | Wilton Jeff MD | | | 2019 | Visit | | [address] | | | | | | [place] | | | | | | [address] | | | | | | | | | | | | Marilou Mcmullen, | | | | | | INSPECTOR OF WEIGHTS AND MEASURES [address] | | | | | | [address] | | | | | | [place] [address] | | | | | | [phone] | | | | | | | | +--------+ + + + + | 06/29/ | Appointment | Infusion Therapy | Wilton Jeff MD | | | 2019 | | | [address] | | | | | | [place] | | | | | | [address] | | | | | | | | +--------+ + + + + | 07/14/ | Office | Otolaryngology | She Huang | | | 2019 | Visit | | DO Sophia Canela | | | | | | [place] [address] | | | | | | [place] [address] | | | | | | [phone] | | | | | | | | +--------+ + + + + | 07/20/ | Appointment | Infusion Therapy | Wilton Jeff MD | | | 2019 | | | [address] | | | | | | [place] | | | | | | [address] | | | | | | | | +--------+ + + + + | 07/20/ | Office | Oncology | Wilton Jeff MD | | | 2019 | Visit | | [address] | | | | | | [place] | | | | | | [address] | | | | | | | | +--------+ + + + + | 07/20/ | Appointment | Infusion Therapy | Wilton Jeff MD | | | 2019 | | | [address] | | | | | | [place] | | | | | | [address] | | | | | | | | +--------+ + + + + | 08/17/ | Appointment | Infusion Therapy | Wilton Jeff MD | | | 2019 | | | [address] | | | | | | [place] | | | | | | [address] | | | | | | | | +--------+ + + + + | 08/17/ | Office | Oncology | Wilton Jeff MD | | | 2020 | Visit | | [address] | | | | | | [place] | | | | | | [address] | | | | | | | | +--------+ + + + + documented as of this encounter Visit Diagnoses Not on filedocumented in this encounter"
--- OUTSIDE RECORDS SUMMARY | ~2020-06-23 | XMS | Encounter Summary ---
Demographics + + + | Address | [address] | | | [place] [address] | + + + | Home Phone [...] Team Providers + +------+ + | Care Veneer Taping Machine Offbearer Name | Role | Phone | + +------+ + | Myrna Mejia MD | PCP | | + +------+ + Encounter Details +--------+ + + + + | Date | Type | Department | Care Team | Description | +--------+ + + + + | 06/05/ | Orders Only | [facility] | Monica Pulido Y, | | | 2019 | | HEMATOLOGY AND | RN | | | | | ONCOLOGY INFUSIONS | | | | | | [address] | | | | | [address] [place] | | | | | | [address] | | | | | | [phone] | | | +--------+ + + + [...] [place] | | | | | | [address] | | | | | | | | +--------+ + + + + | 06/29/ | Office | Oncology | Wilton Jeff MD | | | 2019 | Visit | | [address] | | | | | | [place] | | | | | | [address] | | | | | | | | | | | | Marilou Mcmullen, | | | | | | SENIOR ADMINISTRATIVE SERVICES OFFICER [address] | | | | | | [address] | | | | | | [place] [address] | | | | | | [phone] | | | | | | | | +--------+ + + + + | 06/29/ | Appointment | Infusion Therapy | Wilton Jeff MD | | | 2019 | | | [address] | | | | | | [place] | | | | | | [address] | | | | | | | | +--------+ + + + + | 07/14/ | Office | Otolaryngology | She Huang | | | 2019 | Visit | | DO Sophia Canela | | | | | | [place] [address] | | | | | | [place] [address] | | | | | | [phone] | | | | | | | | +--------+ + + + + | 07/20/ | Appointment | Infusion Therapy | Wilton Jeff MD | | | 2019 | | | [address] | | | | | | [place] | | | | | | [address] | | | | | | | | +--------+ + + + + | 07/20/ | Office | Oncology | Wilton Jeff MD | | | 2019 | Visit | | [address] | | | | | | [place] | | | | | | [address] | | | | | | | | +--------+ + + + + | 07/20/ | Appointment | Infusion Therapy | Wilton Jeff MD | | | 2019 | | | [address] | | | | | | [place] | | | | | | [address] | | | | | | | | +--------+ + + + + | 08/17/ | Appointment | Infusion Therapy | Wilton Jeff MD | | | 2019 | | | [address] | | | | | | [place] | | | | | | [address] | | | | | | | | +--------+ + + + + | 08/17/ | Office | Oncology | Wilton Jeff MD | | | 2020 | Visit | | [address] | | | | | | [place] | | | | | | [address] | | | | | | | | +--------+ + + + + documented as of this encounter Visit Diagnoses Not on filedocumented in this encounter"
--- OUTSIDE RECORDS SUMMARY | ~2020-06-23 | XMS | Encounter Summary ---
Demographics + + + | Address | [address] | | | [place] [address] | + + + | Home Phone [...] Author + + + | Author | [facility] | | | and [place] | + + + | Organization | [facility] | | [...] Team Providers + +------+ + | Care Pest Control Technician Name | Role | Phone | [...] | lung lobe | [address] | [place], [place] | | | | | Procedures | [address] | [address] | | | | | PET CT Skull | [place], [place] | Phone: | | | | | Base To Mid | [address] | [phone] | | | | | Thigh | Phone: | Fax: | | | | | | [phone] | [phone] | | | | | | Fax: | | | | | | | [phone] | | +--------+--------+ + + + + [...] | lung lobe | [address] | [place], [place] | | | | | Procedures | [address] | [address] | | | | | PET CT Skull | [place], [place] | Phone: | | | | | Base To Mid | [address] | [phone] | | | | | Thigh | Phone: | Fax: | | | | | | [phone] | [phone] | | | | | | Fax: | | | | | | | [phone] | | +--------+--------+ + + + + Encounter Details +--------+ + + + + | Date | Type | Department | Care Team | Description | +--------+ + + + + | 03/16/ | Hospital | [facility] | Jake, | Cavitating mass in | | 2020 | Encounter | [facility] | Tali Farfan, | right upper lung | | | | MEDICINE [address] | lobe | | | | [address] | [address] [facility] | | | | | [place], [place] | [place] [address] | | | | | [address] | [phone] | | | | | [phone] | | | +--------+ + + + [...] [place] | | | | | | [address] | | | | | | | | +--------+ + + + + | 06/29/ | Office | Oncology | Wilton Jeff MD | | | 2019 | Visit | | [address] | | | | | | [place] | | | | | | [address] | | | | | | | | | | | | Marilou Mcmullen, | | | | | | [address] | | | | | [address] | | | | | | [place] [address] | | | | | | [phone] | | | | | | | | +--------+ + + + + | 06/29/ | Appointment | Infusion Therapy | Wilton Jeff MD | | | 2019 | | | [address] | | | | | | [place] | | | | | | [address] | | | | | | | | +--------+ + + + + | 07/14/ | Office | Otolaryngology | She Huang | | | 2019 | Visit | | DO Sophia Canela | | | | | | [address] | | | | | | [place] [address] | | | | | | [phone] | | | | | | | | +--------+ + + + + | 07/20/ | Appointment | Infusion Therapy | Wilton Jeff MD | | | 2019 | | | [address] | | | | | | [place] | | | | | | [address] | | | | | | | | +--------+ + + + + | 07/20/ | Office | Oncology | Wilton Jeff MD | | | 2019 | Visit | | [address] | | | | | | [place] | | | | | | [address] | | | | | | | | +--------+ + + + + | 07/20/ | Appointment | Infusion Therapy | Wilton Jeff MD | | | 2019 | | | [address] | | | | | | [place] | | | | | | [address] | | | | | | | | +--------+ + + + + | 08/17/ | Appointment | Infusion Therapy | Wilton Jeff MD | | | 2020 | | | [address] | | | | | | [place] | | | | | | [address] | | | | | | | | +--------+ + + + + | 08/17/ | Office | Oncology | Wilton Jeff MD | | | 2019 | Visit | | [address] | | | | | | [place] | | | | | | [address] | | | | | | | [...] Procedure Note | + + | Stan, [id number] - 03/16/2020 12:20 PM PDT EXAM DESCRIPTION [...]
--- OUTSIDE RECORDS SUMMARY | ~2020-06-23 | XMS | Encounter Summary ---
Demographics + + + | Address | [address] | | | [place] [address] | + + + | Home Phone [...] Author + + + | Author | [facility] | | | and [place] | + + + | Organization | [facility] | | | and [...] Team Providers + +------+ + | Care Security System Sales Consultant Name | Role | Phone | [...] + + | 04/03/ | Telephone | [facility] | HelioTina RN | Triage | | 2019 | | INFUSION SUPPORT | | | | | | SERVICES [address] | | | | | [address] | | | | | | [address] [place] | | | | | | [address] | | | | | | [phone] | | | +--------+ + + + [...] reclining "Feels like my throat is tight" "Severn fine when I sat up straight" "I [...] to just relax in the cool at [facility] e. I encouraged him that if his [...] [place] | | | | | | [id number] | | | | | | | | +--------+ + + + + | 06/29/ | Office | Oncology | Wilton Jeff MD | | 2019 | Visit | | [address] | | | | | | [place] | | | | | | [id number] | | | | | | | | | | | | Marilou Mcmullen, | | | | | | [address] | | | | [address] | | | | | | [place] [address] | | | | | | [phone] | | | | | | | | +--------+ + + + + | 06/29/ | Appointment | Infusion Therapy | Wilton Jeff MD | | | 2019 | | | [address] | | | | | | [place] | | | | | | [address] | | | | | | | | +--------+ + + + + | 07/14/ | Office | Otolaryngology | She Huang | | | 2019 | Visit | | DO Sophia Canela | | | | | | [facility] [address] | | | | | | [place] [address] | | | | | | [phone] | | | | | | | | +--------+ + + + + | 07/20/ | Appointment | Infusion Therapy | Wilton Jeff MD | | | 2019 | | | [address] | | | | | | [place] | | | | | | [address] | | | | | | | | +--------+ + + + + | 07/20/ | Office | Oncology | Wilton Jeff MD | | | 2019 | Visit | | [address] | | | | | | [place] | | | | | | [address] | | | | | | | | +--------+ + + + + | 07/20/ | Appointment | Infusion Therapy | Wilton Jeff MD | | | 2019 | | | [address] | | | | | | [place] | | | | | | [address] | | | | | | | | +--------+ + + + + | 08/17/ | Appointment | Infusion Therapy | Wilton Jeff MD | | | 2019 | | | [address] | | | | | | [place] | | | | | | [address] | | | | | | | | +--------+ + + + + | 08/17/ | Office | Oncology | Wilton Jeff MD | | | 2020 | Visit | | [address] | | | | | | [place] | | | | | | [id number] | | | | | | | | +--------+ + + + + documented as of this encounter Visit Diagnoses Not on filedocumented in this encounter
--- OUTSIDE RECORDS SUMMARY | ~2020-06-23 | XMS | Encounter Summary ---
Demographics + + + | Address | [address] | | | [place] [address] | + + + | Home Phone [...] Team Providers + +------+ + | Care Drywall Installer Name | Role | Phone | + +------+ + | Myrna Mejia MD | PCP | | + +------+ + Reason for Visit + +--------+ + | Reason | Onset | Comments | | | Date | | + +--------+ + | Lab Order | 04/02/ | | | | 2020 | | + +--------+ + Encounter Details +--------+ + + + + | Date | Type | Department | Care Team | Description | +--------+ + + + + | 04/02/ | Telephone | [facility] | Marilou Mcmullen, | Lab Order | 2019 | | HEMATOLOGY AND | SOFTWARE CONFIGURATION SPECIALIST [address] | | | | | ONCOLOGY [address] | | | | | [address] | [place] [address] | | | | | [place], [place] | [phone] | | | | | [address] | | | | | | [phone] | | | +--------+ + + + [...] this encounter Miscellaneous Notes Telephone Encounter - Marilou Mcmullen ARNP - 04/02/2020 12:38 PM PDTLab order documented in this encounter Plan of Treatment [...] [place] | | | | | | [address] | | | | | | | | | | | | Marilou Mcmullen, | | | | | | [address] | | | | | [address] | | | | | | [place] [address] | | | | | | [phone] | | | | | | | | +--------+ + + + + | 06/29/ | Appointment | Infusion Therapy | Wilton Jeff MD | | | 2019 | | | [address] | | | | | | [place] | | | | | | [address] | | | | | | | | +--------+ + + + + | 07/14/ | Office | Otolaryngology | She Huang | | 2019 | Visit | | DO Sophia Canela | | | | | | [address] | | | | | | [place] [address] | | | | | | [phone] | | | | | | | | +--------+ + + + + | 07/20/ | Appointment | Infusion Therapy | Wilton Jeff MD | | | 2019 | | | [address] | | | | | | [place] | | | | | | [address] | | | | | | | | +--------+ + + + + | 07/20/ | Office | Oncology | Wilton Jeff MD | | | 2019 | Visit | | [address] | | | | | | [place] | | | | | | [address] | | | | | | | | +--------+ + + + + | 07/20/ | Appointment | Infusion Therapy | Wilton Jeff MD | | | 2019 | | | [address] | | | | | | [place] | | | | | | [address] | | | | | | | | +--------+ + + + + | 08/17/ | Appointment | Infusion Therapy | Wilton Jeff MD | | | 2019 | | | [address] | | | | | | [place] | | | | | | [address] | | | | | | | | +--------+ + + + + | 08/17/ | Office | Oncology | Wilton Jeff MD | | | 2019 | Visit | | [address] | | | | | | [place] | | | | | | [address] | | | | | | | | +--------+ + + + + + + +--------+ + + | Name | Type | Priori | Associated Diagnoses | Order Schedule | | | | ty | | | + + +--------+ + + | Compass Evaluation, | Pathology | Routin | Mediastinal large | 1 Occurrences | | Bone Marrow | and | e | B-cell lymphoma of | starting 04/02/2020 | | | Cytology | | lymph nodes of | until 04/02/2021 | | | | | multiple regions | | | | | | (HCC) | | + + +--------+ + + documented as of this encounter Visit Diagnoses + + | Diagnosis | + + | 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
--- OUTSIDE RECORDS SUMMARY | ~2020-06-23 | XMS | Encounter Summary ---
Demographics + + + | Address | [address] | | | [place] [address] | + + + | Home Phone | | + + + | Preferred Language | Unknown | + + + | Marital Status | Single | + + + | Latter Day Affiliation | Unknown | + + + | Race | White | + + + | Ethnic Group | Not or | + + + Author + + + | Author | [facility] | | | and [place] | + + + | Organization | [facility] | | [...] + +------+ + | Care Director Of Home Economics Name | Role | Phone | + [...] + + | 05/21/ | Telephone | [facility] | Tina Cadet RN | Other (Coordination | | 2019 | | INFUSION SUPPORT | | of Care) | | | | SERVICES [address] | | | | | | [address] | | | | | | [address] [place] | | | | | | [address] | | | | | | [phone] | | | +--------+ + + + [...] ssage informing patient of injection appointment at [facility] on 05/26. elephone Encounter - Tina Cadet RN - 05/21/2020 4:51 PM PDTReceived call back from Iman at [facility]. She confirmed that they received the Udenyca orders. Asad's appt day/time: 05/26/20 at 2pm Lisa: Can you get this information to the patient? elephone Encounter - Tina Cadet RN - 05/21/2020 4:[address] Mejia's office, [place], [place]. Spoke with Hilaria, who confirms that she faxe d the orders for Udenyca 6mg SC injection to [facility]. I also called [facility] to confirm receipt of [...] pool for follow up. Dr. Mejia's office ([facility]) [facility] (ask to be connected to [...] [place] | | | | | | [id number] | | | | | | | | +--------+ + + + + | 06/29/ | Office | Oncology | Wilton Jeff MD | | 2019 | Visit | | [address] | | | | | | [place] | | | | | | [address] | | | | | | | | | | | | Marilou Mcmullen, | | | | | | [address] [address] | | | | | | [address] | | | | | | [place] [address] | | | | | | [phone] | | | | | | | | +--------+ + + + + | 06/29/ | Appointment | Infusion Therapy | Wilton Jeff MD | | | 2019 | | | [address] | | | | | | [place] | | | | | | [address] | | | | | | | | +--------+ + + + + | 07/14/ | Office | Otolaryngology | She Huang | | 2019 | Visit | | DO Sophia Canela | | | | | | [address] | | | | | | [place] [address] | | | | | | [phone] | | | | | | | | +--------+ + + + + | 07/20/ | Appointment | Infusion Therapy | Wilton Jeff MD | | | 2019 | | | [address] | | | | | | [place] | | | | | | [address] | | | | | | | | +--------+ + + + + | 07/20/ | Office | Oncology | Wilton Jeff MD | | | 2019 | Visit | | [address] | | | | | | [place] | | | | | | [address] | | | | | | | | +--------+ + + + + | 07/20/ | Appointment | Infusion Therapy | Wilton Jeff MD | | | 2019 | | | [address] | | | | | | [place] | | | | | | [address] | | | | | | | | +--------+ + + + + | 08/17/ | Appointment | Infusion Therapy | Wilton Jeff MD | | | 2019 | | | [address] | | | | | | [place] | | | | | | [address] | | | | | | | [...]
--- OUTSIDE RECORDS SUMMARY | ~2020-06-23 | XMS | Encounter Summary ---
Demographics + + + | Address | [address] | | | [place] [address] | + + + | Home Phone | | + + + | Preferred Language | Unknown | + + + | Marital Status | Single | + + + | Episcopal Affiliation | Unknown | + + + | Race | White | + + + | Ethnic Group | Not or | + + + Author + + + | Author | [facility] | | | and [place] | + + + | Organization | [facility] | | | and [place] | + + + | Address | Unknown | + + + | Phone | Unavailable | + + + Support + + +---------+ + | Name | Relationship | Address | Phone | + + +---------+ + | Marcso Morgan | ECON | Unknown | | + + +---------+ + Care Team Providers + +------+ + | Care Packer Denture Name | Role | Phone | + [...] + + | 04/02/ | Telephone | [facility] | Marilou Mcmullen, | Lab Order | 2019 | | HEMATOLOGY AND | [employer] [address] | | | | | ONCOLOGY [address] | [address] | [place] [address] | | | | | [place], [place] | [phone] | | | | | [address] | | | | | | [phone] | | | +--------+ + + + [...] [place] | | | | | | [address] | | | | | | | | | | | | Marilou Mcm[place], | | | | | | [address] | | | | | | [address] | | | | | | [place] [address] | | | | | | [phone] | | | | | | | | +--------+ + + + + | 06/29/ | Appointment | Infusion Therapy | Wilton Jeff MD | | | 2019 | | | [address] | | | | | | [place] | | | | | | [address] | | | | | | | | +--------+ + + + + | 07/14/ | Office | Otolaryngology | She Huang | | 2019 | Visit | | DO Sophia Canela | | | | | | [address] | | | | | | [place] [address] | | | | | | [phone] | | | | | | | | +--------+ + + + + | 07/20/ | Appointment | Infusion Therapy | Wilton Jeff MD | | | 2019 | | | [address] | | | | | | [place] | | | | | | [address] | | | | | | | | +--------+ + + + + | 07/20/ | Office | Oncology | Wilton Jeff MD | | | 2019 | Visit | | [address] | | | | | | [place] | | | | | | [address] | | | | | | | | +--------+ + + + + | 07/20/ | Appointment | Infusion Therapy | Wilton Jeff MD | | | 2019 | | | [address] | | | | | | [place] | | | | | | [address] | | | | | | | | +--------+ + + + + | 08/17/ | Appointment | Infusion Therapy | Wilton Jeff MD | | | 2019 | | | [address] | | | | | | [place] | | | | | | [address] | | | | | | | | +--------+ + + + + | 08/17/ | Office | Oncology | Wilton Jeff MD | | | 2019 | Visit | | [address] | | | | | | [place] | | | | | | [address] | | | | | | | [...]
--- OUTSIDE RECORDS SUMMARY | ~2020-06-23 | XMS | Clinical Summary ---
Demographics + + + | Address | [address] | | | [place] [address] | + + + | Home Phone [...] Team Providers + +------+ + | Care Professional Organizer Name | Role | Phone | + +------+ + | Myrna Mejia MD | PCP | | + +------+ + Allergies No Known Allergies Medications + + + +---------+------+------+-------+ | Medication | Sig | Dispensed | Refills | Star | End | Statu | | | | | | t | Date | s | | | | | | Date | | | + + + +---------+------+------+-------+ | benzonatate | Take 100 mg by mouth | | 0 | | | Activ | | (TESSALON) 100 mg | 3 times daily as | | | | | e | | capsule | needed for Cough. | | | | | | + + + +---------+------+------+-------+ | ondansetron | Take 1 tablet by | 20 | 0 | 07/ | | Activ | | (ZOFRAN ODT) 4 mg | mouth every 6 hours | tablet | | 7/20 | | e | | disintegrating | as needed for | | | 20 | | | | tablet | Nausea. | | | | | | + + + +---------+------+------+-------+ | NICOTINE TD | Place onto the skin. | | 0 | | | Activ | | | | | | | | e | + + + +---------+------+------+-------+ | | Apply generously to | 30 g | 11 | 07/3 | | Activ | | lidocaine-prilocaine | port site and cover | | | 0/20 | | e | | (EMLA) | with tegaderm or | | | 20 | | | | creamIndications: | saran wrap 1 hour | | | | | | | Mediastinal large | prior to chemo.. | | | | | | | B-cell lymphoma of | | | | | | | | lymph nodes of | | | | | | | | multiple regions | | | | | | | | (HCC) | | | | | | | + + + +---------+------+------+-------+ | acyclovir | Take 4 capsules by | 240 | 5 | 08/1 | | Activ | | (ZOVIRAX) 200 mg | mouth 2 times daily. | capsule | | 0/20 | | e | | capsuleIndications: | Indications: Herpes | | | 20 | | | | HERPES ZOSTER | Zoster Prevention | | | | | | | PREVENTION IN | in Immunocompromised | | | | | | | IMMUNOCOMPROMISED | | | | | | | + + + +---------+------+------+-------+ | aluminum & | Swish and spit 15 | 600 mL | 2 | 08/1 | | Activ | | magnesium | mLs every 4 hours as | | | 0/20 | | e | | hydroxide-simethicon | needed for Sore | | | 20 | | | | u-empgkfiscgMJSWK-ng | Throat. | | | | | | | docaine | | | | | | | + + + +---------+------+------+-------+ | | Swish and spit 10 | 240 mL | 1 | 08/1 | | Activ | | diphenhydramine-hydr | mLs 4 times daily. | | | 0/20 | | e | | ocortisone-nystatin | | | | 20 | | | | (DUKES MOUTHWASH) | | | | | | | | suspensionIndication | | | | | | | | s: Large B-cell | | | | | | | | lymphoma (HCC) | | | | | | | + + + +---------+------+------+-------+ +---+ + | | Additional | | | InformationPatient | | | not taking. Reason: | | | Not Available, | | | Reported on | | | 05/19/2020 8:08 PM | +---+ + + + +--------+---+------+------+-------+ | acetaminophen | Take 1,000 mg by | | 0 | | | Activ | | (TYLENOL) 500 mg | mouth every 6 hours | | | | | e | | tablet | as needed for Pain. | | | | | | + + +--------+---+------+------+-------+ | famotidine | Take 1 tablet by | 60 | 3 | 10/1 | | Activ | | (PEPCID) 20 mg | mouth 2 times daily. | tablet | | 2/20 | | e | | tablet | | | | 20 | | | + + +--------+---+------+------+-------+ | | Take 1 tablet by | 14 | 0 | / | 05/06 | Expir | | amoxicillin-clavulan | mouth 2 times daily | tablet | | 0/20 | 03/23 | ed | | ate (AUGMENTIN) | for 7 days. | | | 20 | 20 | | | 875-125 mg per | | | | | | | | tablet | | | | | | | + + +--------+---+------+------+-------+ Active Problems + + + | Problem | Noted Date | + + + | Dental caries | 05/18/2020 | + + + | Tobacco abuse | 04/30/2020 | + + + | Admission for antineoplastic chemotherapy | 04/08/2020 | + + + | Diffuse large B-cell lymphoma of lymph nodes of multiple regions | 03/31/2020 | + + + + + | Cancer Staging: Clinical stage from 03/31/2020: Stage III | | (Diffuse large B-cell lymphoma) - Signed by Wilton Jeff MD on | | 03/31/2020 | + + + + + | Cervical lymphadenopathy | 03/18/2020 | + + + + + | Overview: Added automatically from request for surgery | | [id number] | + + + + + | Supraclavicular adenopathy | 03/18/2020 | + + + + + | Overview: Added automatically from request for surgery | | [id number] | + + Resolved Problems + + + + | Problem | Noted | Resolved | | | Date | Date | + + + + | SIRS (systemic inflammatory response syndrome) | 04/10/20 | | | | 20 | 0 | + + + + Encounters +--------+ + + + + | Date | Type | Specialty | Care Team | Description | +--------+ + + + + | 06/23/ | Telephone | Infusion Therapy | Lizbet Rios | Triage | | 2019 | | | A, RN | | +--------+ + + + + | 06/23/ | Telephone | Infusion Therapy | Lizbet Rios | Triage | | 2019 | | | Vazquez RN | | +--------+ + + + + | 06/12/ | Telephone | Infusion Therapy | Fabio Hallman RN | Appointment | | 2019 | | | | | +--------+ + + + + | 06/10/ | Hospital | Internal Medicine | Addie Whiteside MD | Admission for | | 2019 - | Encounter | | Bob Galvez, | antineoplastic | | | | | | chemotherapy | | 06/15/ | | | | (Primary Dx); | | 2019 | | | | Diffuse large B-cell | | | | | | lymphoma of lymph | | | | | | nodes of multiple | | | | | | regions (HCC); | | | | | | Cervical | | | | | | lymphadenopathy; | | | | | | Supraclavicular | | | | | | adenopathy; Tobacco | | | | | | abuse; Dental caries | +--------+ + + + + | 06/08/ | Hospital | Infusion Therapy | Wilton Jeff MD | Diffuse large B-cell | | 2019 | Encounter | | Paz Bolivar, | lymphoma of lymph | | | | | RN | nodes of multiple | | | | | | regions (HCC) | | | | | | (Primary Dx) | +--------+ + + + + | 06/08/ | Office | Oncology | Wilton Jeff MD | Diffuse large B-cell | | 2019 | Visit | | | lymphoma of lymph | | | | | | nodes of multiple | | | | | | regions (HCC) | | | | | | (Primary Dx) | +--------+ + + + + | 06/08/ | Hospital | Infusion Therapy | Wilton Jeff MD | Mediastinal large | | 2019 | Encounter | | Monica Pulido, | B-cell lymphoma of | | | | | RN | lymph nodes of | | | | | | multiple regions | | | | | | (HCC) (Primary Dx); | | | | | | Diffuse large B-cell | | | | | | lymphoma of lymph | | | | | | nodes of multiple | | | | | | regions (HCC) | +--------+ + + + + | 06/08/ | Orders Only | Oncology | Wilton Jeff MD | | | 2019 | | | | | +--------+ + + + + | 06/08/ | Telephone | Infusion Therapy | Tina Cadet, RN | Other (Request for | | 2019 | | | | admission to | | | | | | inpatient for | | | | | | chemotherapy) | +--------+ + + + + | 06/05/ | Orders Only | Infusion Therapy | Monica Pulido, | | | 2020 | | | RN | | +--------+ + + + + | 06/04/ | Telephone | Otolaryngology | She Huang | Follow-up | | 2019 | | | J, DO | | +--------+ + + + + | 05/21/ | Telephone | Infusion Therapy | Tina Cadet RN | Other (Coordination | | 2019 | | | | of Care) | +--------+ + + + + | 05/19/ | Hospital | Internal Medicine | Addie Whiteside MD | Admission for | | 2019 - | Encounter | | Cherelle Mathews MD | antineoplastic | | | | | | chemotherapy | | 05/24/ | | | | (Primary Dx); Dental | | 2019 | | | | caries; Diffuse | | | | | | large B-cell | | | | | | lymphoma of lymph | | | | | | nodes of multiple | | | | | | regions (HCC); | | | | | | Cervical | | | | | | lymphadenopathy | +--------+ + + + + | 05/19/ | Telephone | Oncology | Briana Taylor | Other (Oncology | 2019 | | | [facility] | Nurse Navigation) | +--------+ + + + + | 05/18/ | Hospital | Infusion Therapy | Wilton Jeff MD | Diffuse large B-cell | | 2019 | Encounter | | Felipa Frazier | lymphoma of lymph | | | | | [facility] | nodes of multiple | | | | | | regions (HCC) | | | | | | (Primary Dx) | +--------+ + + + + | 05/18/ | Office | Oncology | Wilton Jeff MD | Diffuse large B-cell | | 2019 | Visit | | Sidra Mcmullen ARNP | lymphoma of lymph | | | | | | nodes of multiple | | | | | | regions (HCC) | | | | | | (Primary Dx); Dental | | | | | | caries | +--------+ + + + + | 05/18/ | Hospital | Infusion Therapy | Wilton Jeff MD | Diffuse large B-cell | | 2019 | Encounter | | Paz Walton RN | lymphoma of lymph | | | | | | nodes of multiple | | | | | | regions (HCC) | | | | | | (Primary Dx) | +--------+ + + + + | 05/18/ | Telephone | Infusion Therapy | Felipa Frazier | Imaging; Oncology | | 2019 | | | [facility] | Appointment | | | | | | (approved for fast | | | | | | rate rituxan per | | | | | | sidra) | +--------+ + + + + | 05/18/ | Orders Only | Infusion Therapy | Paz Walton RN | Mediastinal large | | 2019 | | | | B-cell lymphoma of | | | | | | lymph nodes of | | | | | | multiple regions | | | | | | (HCC) | +--------+ + + + + | 05/15/ | Telephone | Infusion Therapy | Tina Cadet RN | Other (Request for | | 2019 | | | | admission to | | | | | | inpatient for | | | | | | chemotherapy) | +--------+ + + + + | 05/12/ | Telephone | Oncology | Wilton Jeff MD | Oncology Appointment | | 2019 | | | | | +--------+ + + + + | 05/07/ | Telephone | Oncology | Wilton Jeff MD | Medication Question | 2019 | | | | | +--------+ + + + + | 05/05/ | Telephone | Oncology | Wilton Jeff MD | Other ([facility] ) | | 2019 | | | | | +--------+ + + + + | 04/29/ | Hospital | Internal Medicine | Addie Whiteside MD | 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 | | Jeremie Finch MD | lymphoma of lymph | | | | | Alan Davis MD | nodes of multiple | | 05/04/ | | | | regions (HCC) | | 2019 | | | | (Primary Dx); | | | | | | Admission for | | | | | | chemotherapy; Large | | | | | | B-cell lymphoma | | | | | | (HCC); Cervical | | | | | | lymphadenopathy; | | | | | | Supraclavicular | | | | | | adenopathy | +--------+ + + + + | 04/27/ | Hospital | Infusion Therapy | Wilton Jeff MD | Diffuse large B-cell | | 2019 | Encounter | | Felipa Frazier | lymphoma of lymph | | | | | [facility] | nodes of multiple | | | | | | regions (HCC) | | | | | | (Primary Dx) | +--------+ + + + + | 04/27/ | Office | Oncology | Wilton Jeff MD | Diffuse large B-cell | | 2019 | Visit | | | lymphoma of lymph | | | | | | nodes of multiple | | | | | | regions (HCC) | | | | | | (Primary Dx) | +--------+ + + + + | 04/27/ | Hospital | Infusion Therapy | Wilton Jeff MD | Mediastinal large | | 2019 | Encounter | | Sidra Frost | B-cell lymphoma of | | | | | [facility] | lymph nodes of | | | | | | multiple regions | | | | | | (HCC) (Primary Dx); | | | | | | Diffuse large B-cell | | | | | | lymphoma of lymph | | | | | | nodes of multiple | | | | | | regions (HCC) | +--------+ + + + + | 04/27/ | Telephone | Infusion Therapy | Tina Cadet RN | Triage | | 2019 | | | | | +--------+ + + + + | 04/17/ | Office | Oncology | Wilton Jeff MD | Diffuse large B-cell | | 2019 | Visit | | | lymphoma of lymph | | | | | | nodes of multiple | | | | | | regions (HCC) | | | | | | (Primary Dx) | +--------+ + + + + | 04/17/ | Orders Only | | Zehra Jimenez | Mediastinal large | | 2020 | | | [address] [address] | B-cell lymphoma of | | | | | | lymph nodes of | | | | | | multiple regions | | | | | | (HCC) | +--------+ + + + + | 04/15/ | Orders Only | Oncology | Wilton Jeff MD | | 2019 | | | | | +--------+ + + + + | 04/14/ | Hospital | Infusion Therapy | Wilton Jeff MD | Large B-cell | 2019 | Encounter | | Kaela Britton, | lymphoma (HCC) | | | | | Service Center Appraiser | (Primary Dx) | +--------+ + + + + | 04/14/ | Telephone | Hospitalist | Olviia Pérez | Medication Question | 2019 | | | [facility] | ([facility]) | +--------+ + + + + | 04/08/ | Hospital | Internal Medicine | Addie Whiteside MD | Large B-cell | | 2019 - | Encounter | | Deni John | lymphoma (HCC) | | | | | MD Irving | (Primary Dx); | | 04/13/ | | | | Admission for | | 2019 | | | | antineoplastic | | | | | | chemotherapy; | | | | | | Mediastinal large | | | | | | B-cell lymphoma of | | | | | | lymph [...] (HCC) | +--------+ + + + + | 04/06/ | Hospital | Infusion Therapy | Wilton Jeff MD | Mediastinal large | | 2019 | Encounter | | Gertrudis Arriola RN | B-cell lymphoma of | | | | | | lymph nodes of | | | | | | multiple regions | | | | | | (HCC) (Primary Dx) | +--------+ + + + + | 04/06/ | Hospital | Infusion Therapy | Wilton Jeff MD | Mediastinal large | | 2019 | Encounter | | Sidra Frost | B-cell lymphoma of | | | | | A, RN | lymph nodes of | | | | | | multiple regions | | | | | | (HCC) (Primary Dx) | +--------+ + + + + | 04/06/ | Telephone | Infusion Therapy | Tina Cadet RN | Other (Request for | 2019 | | | | admission to | | | | | | inpatient for | | | | | | chemotherapy) | +--------+ + + + + | 04/06/ | Orders Only | Hematology and | Kesha Mcdaniel RPH | | | 2019 | | Oncology | | | +--------+ + + + + | 04/06/ | Orders Only | Oncology | Wilton Jeff MD | | | 2019 | | | | | +--------+ + + + + | 04/06/ | Orders Only | Hematology and | Kesha Mcdaniel RPH | | 2019 | | Oncology | | | +--------+ + + + + | 04/06/ | Orders Only | Infusion Therapy | Karen Schaefer, | Mediastinal large | | 2020 | | | RN | B-cell lymphoma of | | | | | | lymph nodes of | | | | | | multiple regions | | | | | | (HCC) (Primary Dx) | +--------+ + + + + | 04/03/ | Orders Only | Oncology | Wilton Jeff MD | Mediastinal large | | 2020 | | | | B-cell lymphoma of | | | | | | lymph nodes of | | | | | | multiple regions | | | | | | (HCC) (Primary Dx) | +--------+ + + + + | 04/03/ | Orders Only | Oncology | Wilton Jeff MD | Mediastinal large | | 2020 | | | | B-cell lymphoma of | | | | | | lymph nodes of | | | | | | multiple regions | | | | | | (HCC) (Primary Dx) | +--------+ + + + + | 04/03/ | Telephone | Infusion Therapy | Tina Cadet RN | Triage | | 2019 | | | | | +--------+ + + + + | 04/03/ | Documentati | Hematology and | Saumya Vega | | | 2019 | on | Oncology | KENTRELL Shultz | | +--------+ + + + + | 04/03/ | Orders Only | Oncology | Wilton Jeff MD | | | 2019 | | | | | +--------+ + + + + | 04/03/ | Orders Only | Oncology | Wilton Jeff MD | Mediastinal large | | 2019 | | | | B-cell lymphoma of | | | | | | lymph nodes of | | | | | | multiple regions | | | | | | (HCC) (Primary Dx) | +--------+ + + + + | 04/02/ | Hospital | Infusion Therapy | Wilton Jeff MD | Diffuse large B-cell | | 2019 | Encounter | | Monica Pulido, | lymphoma, | | | | | RN Sidra Mcmullen, | unspecified body | | | | | FLIGHT COMMUNICATIONS OFFICER | region (HCC) | | | | | | (Primary Dx); | | | | | | Mediastinal large | | | | | | B-cell lymphoma of | | | | | | lymph nodes of | | | | | | multiple regions | | | | | | (HCC); High risk | | | | | | medication use; | | | | | | Cervical | | | | | | lymphadenopathy | +--------+ + + + + | 04/02/ | Documentati | Oncology | Bruce Leonardo, | | | 2019 | on | | Service Center Appraiser | | +--------+ + + + + | 04/02/ | Orders Only | Oncology | Sidra Mcmullen, | | | 2019 | | | FLIGHT COMMUNICATIONS OFFICER | | +--------+ + + + + | 07/30/ | Telephone | Oncology | Suechristina Sidra, | Lab Order | | 2019 | | | FLIGHT COMMUNICATIONS OFFICER | | +--------+ + + + + | 04/02/ | Orders Only | Oncology | Wilton Jeff MD | Mediastinal large | | 2019 | | | | B-cell lymphoma of | | | | | | lymph nodes of | | | | | | multiple regions | | | | | | (HCC) (Primary Dx) | +--------+ + + + + | 04/02/ | Orders Only | Oncology | Wilton Jeff MD | | | 2019 | | | | | +--------+ + + + + | 04/02/ | Orders Only | Oncology | Wilton Jeff MD | | | 2019 | | | | | +--------+ + + + + | 04/02/ | Telephone | Radiology | Wood Gilliam | Follow-up(Procedure) | | 2019 | | | MD Torsten | | +--------+ + + + + | 04/01/ | Hospital | Radiology | Gary Alvarez, | Mario classical | 2019 | Encounter | | Wood Prasad | Hodgkin lymphoma of | | | | | MD [place] | lymph nodes of | | | | | | multiple regions | | | | | | (HCC) | +--------+ + + + + 03/31/ | Virtual | Oncology | Wilton Jeff MD | High risk medication | | 2019 | Office | | | use (Primary Dx); | | | Visit | | | Mediastinal large | | | | | | B-cell lymphoma of | | | | | | lymph nodes of | | | | | | multiple regions | | | | | | (HCC) | +--------+ + + + + | 03/31/ | Hospital | | Wilton Jeff MD | Mario classical | 2019 | Encounter | | | Hodgkin lymphoma of | | | | | | lymph nodes of | | | | | | multiple regions | | | | | | (HCC) | +--------+ + + + + | 03/31/ | Telephone | Cardiology | Wood Gilliam | Pre-Op | | 2020 | | | MD [place] | | +--------+ + + + + | 03/30/ | Hospital | Radiology | Wilton Jeff MD | 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 | | | Hodgkin lymphoma of | | | | | | lymph nodes of | | | | | | multiple regions | | | | | | (HCC) | +--------+ + + + + | 03/30/ | Telephone | Oncology | Wilton Jeff MD | Imaging | | 2019 | | | | | +--------+ + + + + | 03/30/ | Telephone | Oncology | Judit Liu, | Paperwork | | 2019 | | | Service Center Appraiser | | +--------+ + + + + | 03/30/ | Telephone | Radiology | Eliza Llamas, | Referral | | 2019 | | | PA | | +--------+ + + + + | 03/27/ | Office | Oncology | Wilton Jeff MD | Other classical | | 2019 | Visit | | | Hodgkin lymphoma of | | | | | | lymph nodes of | | | | | | multiple regions | | | | | | (HCC) (Primary Dx); | | | | | | High risk medication | | | | | | use | +--------+ + + + 03/27/ | Orders Only | | Deborah Guajardo, | Other classical | 2019 | | | [address] [address] | Hodgkin lymphoma of | | | | | | lymph nodes of | | | | | | multiple regions | | | | | | (HCC) | +--------+ + + + + | 03/26/ | Office | Otolaryngology | She Huang | Cervical | | 2020 | Visit | | J, DO | lymphadenopathy | | | | | | (Primary Dx); | | | | | | Supraclavicular | | | | | | adenopathy; Night | | | | | | sweats | +--------+ + + + + from Last 3 Months Immunizations + + + + | Name | Administration Dates | Next Due | + + + + | DTP (PED) | 12/15/1995 | | + + + + | HEP A, 2 DOSE | 12/15/1995 | | | (PED/ADOL) | | | + + + + | MMR, 2 DOSE | 10/16/2003 | | | (PED/ADULT) | | | + + + + | VARICELLA, 2 DOSE | 10/16/2003 | | | (VARIVAX) | | | + + + + Family History + + +---------+ + | Medical History | Relation | Name | Comments | + + +---------+ + | Bone Cancer | Other | G. Mat | | | | | gma | | + + +---------+ + | Lung cancer | Paternal | | | | | Grandfath | | | | | er | | | + + +---------+ + | Cancer | Paternal | | | | | Grandmoth | | | | | er | | | + + +---------+ + + +---------+ + + | Relation | Name | Status | Comments | + +---------+ + + | Other | G. Mat | | | | | gma | | | + +---------+ + + | Paternal Grandfather | | | | + +---------+ + + | Paternal Grandmother | | | | + +---------+ + + Social History + + + [...] on file | | + + + Last Filed Vital Signs + + + [...] | | + + + + + Plan of Treatment +--------+ + + + + | Date | Type | Specialty | Care Team | Description | +--------+ + + + + | 06/29/ | Appointment | Infusion Therapy | Wilton Jeff MD | | | 2019 | | | [address] | | | | | | [place] | | | | | | [address] | | | | | | | | +--------+ + + + + | 06/29/ | Office | Oncology | Wilton Jeff MD | | | 2019 | Visit | | [address] | | | | | | [place] | | | | | | [address] | | | | | | | | | | | | Sidra Mcmullen, | | | | | | FLIGHT COMMUNICATIONS OFFICER [address] | | | | | | [place] [address] | | | | | | [phone] | | | | | | | | +--------+ + + + + | 06/29/ | Appointment | Infusion Therapy | Wilton Jeff MD | | | 2019 | | | [address] | | | | | | [place] | | | | | | [address] | | | | | | | | +--------+ + + + + | 07/14/ | Office | Otolaryngology | She Huang | | | 2019 | Visit | | DO Sophia Canela | | | | | | [address] | | | | | | [place] [address] | | | | | | [phone] | | | | | | | | +--------+ + + + + | 07/20/ | Appointment | Infusion Therapy | Wilton Jeff MD | | | 2019 | | | [address] | | | | | | [place] | | | | | | [address] | | | | | | | | +--------+ + + + + | 07/20/ | Office | Oncology | Wilton Jeff MD | | | 2019 | Visit | | [address] | | | | | | [place] | | | | | | [address] | | | | | | | | +--------+ + + + + | 07/20/ | Appointment | Infusion Therapy | Wilton Jeff MD | | | 2019 | | | [address] | | | | | | [place] | | | | | | [address] | | | | | | | | +--------+ + + + + | 08/17/ | Appointment | Infusion Therapy | Wilton Jeff MD | | | 2020 | | | [address] | | | | | | [place] | | | | | | [address] | | | | | | | | +--------+ + + + + | 08/17/ | Office | Oncology | Wilton Jeff MD | | | 2020 | Visit | | [address] | | | | | | [place] | | | | | | [address] | | | | | | | | +--------+ + + + + + + + + + | Health Maintenance | Due Date | Last | Comments | | | | Done | | + + + + + | Vaccine: | | | | | Pneumococcal 19-64 | 7 | | | | (1 of 3 - PCV13) | | | | + + + + + | Vaccine: | | 12/14/18 | | | Dtap/Tdap/Td (2 - | 0 | 96 | | | Tdap) | | | | + + + + + | Vaccine: Influenza | | | | | (#1) | 0 | | | + + + + + | Hepatitis C | Completed | 04/02/20 | | | Screening | | 20 | | + + + + + Implants + +--------+------+ +--------+--------+--------+ | Implanted | Type | Area | Manufacture | Device | Shelf | Model | | | | | r | | Expira | / | | | | | | Identi | tion | Serial | | | | | | fier | Date | / Lot | + +--------+------+ +--------+--------+--------+ | Port Power Vaccess | Generi | | BARD | [id number] | 06/03/ | [id number] | | 8f-04/01/2020Implanted: Qty: 1 | c | | PERIPHERAL | [id number] | 2020 | 0 / | | on 04/01/2020 by [employer], | | | VASCULAR - | 75 | | /[id number] | | Wood Sarmiento MD | | | BRDP | | | 176 | + +--------+------+ +--------+--------+--------+ Procedures + +--------+ + + + | [...] | + +--------+ + + + | LABS - EXTERNAL SCAN | | 05/29/2020 | | Results for this | | | | 12:00 AM | | procedure are in the | | | | PDT | | results section. | + +--------+ + + + | LABS - EXTERNAL SCAN | | 05/29/2020 | | Results for this | | | | 12:00 AM | | procedure are [...] + | CBC WITH | Routin | 04/06/2020 | Mediastinal large | Results for this | | DIFFERENTIAL | e | 7:54 AM | 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 | | | | | multiple regions | | | | | | (HCC) | | + +--------+ + + + | COMPREHENSIVE | Routin | 04/06/2020 | Mediastinal large | Results for this | | METABOLIC PANEL | e | 7:54 AM | 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 | | | | | multiple regions | | | | | | (HCC) | | + +--------+ + + + | PHOSPHORUS | Routin | 04/06/2020 | Mediastinal large | Results for this | | | e | 7:54 AM | 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 | | | | | multiple regions | | | | | | (HCC) | | + +--------+ + + + | URIC ACID | Routin | 04/06/2020 | Mediastinal large | Results for this | | | e | 7:54 AM | B-cell lymphoma of | procedure [...] | + +--------+ + + + | LABS - EXTERNAL SCAN | | 04/02/2020 | | Results for this | | | | 12:00 AM | | procedure are in the | | | | PDT | | results section. | + +--------+ + + + | LABS - EXTERNAL SCAN | | 04/02/2020 | | Results for this | | | | 12:00 AM | | procedure are in the | | | | PDT | | results section. | + +--------+ + + + | LABS - EXTERNAL SCAN | | 04/02/2020 | | Results for this | | | | 12:00 AM | | procedure are in the | | | | PDT | | results section. | + +--------+ + + + | LABS - EXTERNAL SCAN | | 04/02/2020 | | Results for this | | | | 12:00 AM | | procedure are [...] | + +--------+ + + + | NM CARDIAC MUGA SCAN | STAT | 03/30/2020 | Other classical | Results for this | | | | 11:30 AM | Hodgkin lymphoma of | procedure [...] | | + +--------+ + + + from Last 3 Months Results CBC with Differential (06/15/2020 4:10 AM PDT)Only the most recent of 27 results within th e time period is included. + + + + + + | [...] | | | Absolute | performed at [facility], [address] | [address]AT[address] | | | | [address], | | | | | | [place] [address] | | | | + + + + + + + + | Specimen | + + | Blood | + + + + + + + | Performing | Address | City/State/Zipcode | Phone Number | | Organization | | | | + + + + + | [facility] | [address] | [place] [address] | [phone] | + + + + + Comprehensive Metabolic Panel (06/15/2020 4:10 AM PDT)Only the most recent of 21 results w twan the time period is included. + + + + + + | [...] 26 | 10 - 65 U/L | [facility] | | | | | | LAB[facility] | | + + + + + + | Estimated | >60Comment: GFR <60: | >60 | [facility] | | | GFR | CHRONIC [...] | | | | | performed at [facility], [address] | | | | | [facility], | | | | | | [place] [address] | | | | + + + + + + + + | Specimen | + + | Blood | + + + + + + + | Performing | Address | City/State/Zipcode | Phone Number | | Organization | | | | + + + + + | [facility] | [address] | [place] [address] | [phone] | + + + + + CBC [...] | 9.5Comment: NO NORMAL | fl | BETHLE | | | | RANGE ESTABLISHEDTesting | | LABORATORY | | | | performed at [facility] | | | | | | [address];[place] | | | | | | [address] | | | | + + + + + + + + | Specimen | + + | Blood | + + + + + + + | Performing | Address | City/State/Zipcode | Phone Number | | Organization | | | | + + + + + | [facility] | [address] | [place] [address] | [phone] | + + + + + Basic Metabolic Panel (06/12/2020 3:59 AM PDT)Only the most recent of 5 results within the time period is included. + + + + + + | [...] | | | performed at [facility] | | | | | | [address] [facility];[place], [place] | | | | | | [address] | | | | + + + + + + + + | Specimen | + + | Blood | + + + + + + + | Performing | Address | City/State/Zipcode | Phone Number | | Organization | | | | + + + + + | [facility] | [address] [facility] | [place] [address] | [phone] | + + + + + Phosphorus (06/11/2020 3:56 AM PDT)Only the most recent of 5 results within the time perio león is included. + + + + + + | Component | Value | Ref Range | Performed | Pathologist | | | | | At | Signature | + + + + + + | Phosphorus | 4.6Comment: Testing | 2.3 - 4.8 mg/dL | [facility] | | | | performed at [facility];[address] | | LABORATORY | | | | [address];[place], [place] | | | | | | [address] | | | | + + + + + + + + | Specimen | + + | Blood | + + + + + + + | Performing | Address | City/State/Zipcode | Phone Number | | Organization | | | | + + + + + | [facility] | [address] | [place] [address] | [phone] | + + + + + Magnesium (06/11/2020 3:56 AM PDT)Only the most recent of 5 results within the time period is included. + + + + + + | Component | Value | Ref Range | Performed | Pathologist | | | | | At | Signature | + + + + + + | Magnesium | 1.9Comment: Testing | 1.7 - 2.4 mg/dL | [facility] | | | | performed at [facility];[address] | | LABORATORY | | | | [address] [facility];[place], [place] | | | | | | [address] | | | | + + + + + + + + | Specimen | + + | Blood | + + + + + + + | Performing | Address | City/State/Zipcode | Phone Number | | Organization | | | | + + + + + | [facility] | [address] | [place] [address] | [phone] | + + + + + LABS - EXTERNAL SCAN (05/29/2020 12:00 AM PDT)Only the most recent of 6 results within the time period is included. + + + | Narrative | Performed At | + + + | Ordered by an | | | unspecified provider. | | + + + XR Chest 2 Vws (2020 4:45 PM PDT) + + | Specimen | + + | | + + + + + | Impressions | Performed At | + + + | Redemonstrated right perihilar opacity consistent with mass better | [facility] | | seen on prior PET. No superimposed parenchymal abnormality. | | | Final Report Signed by: Ananth Vickers, Aminata Fink Date/Time: | | | 2020 4:50 PM [...] Procedure Note | + + | Stan, [id number] - 2020 4:54 PM PDT | | [...] | | Final Report Signed by: Ananth Vickers, Aminata | | Sign Date/Time: 2020 4:50 PM | + + + +---------+ + + | Performing | Address | City/State/Zipcode | Phone Number | | Organization | | | | + +---------+ + + | [facility] | | | | + +---------+ + + ALT (2020 5:18 AM PDT) + + + + + + | Component | Value | Ref Range | Performed | Pathologist | | | | | At | Signature | + + + + + + | ALT | 38Comment: Testing | 10 - 65 U/L | [facility] | | | | performed at [facility];[address] | | LABORATORY | | | | [address];[place] | | | | | | [address] | | | | + + + + + + + + | Specimen | + + | Blood | + + + + + + + | Performing | Address | City/State/Zipcode | Phone Number | | Organization | | | | + + + + + | [facility] | [address] | [place] [address] | [phone] | + + + + + AST (2020 5:18 AM PDT) + + + + + + | Component | Value | Ref Range | Performed | Pathologist | | | | | At | Signature | + + + + + + | AST | 17Comment: Testing | 10 - 45 U/L | [facility] | | | | performed at [facility];[address] | | LABORATORY | | | | [address];[place] | | | | | | [address] | | | | + + + + + + + + | Specimen | + + | Blood | + + + + + + + | Performing | Address | City/State/Zipcode | Phone Number | | Organization | | | | + + + + + | [facility] | [address] | [place] [address] | [phone] | + + + + + Bilirubin, [...] | TOTAL | performed at [facility];[address] | | LABORATORY | | | | [address];[place], [place] | | | | | | [address] | | | | + + + + + + + + | Specimen | + + | Blood | + + + + + + + | Performing | Address | City/State/Zipcode | Phone Number | | Organization | | | | + + + + + | [facility] | [address] | [place] [address] | [phone] | + + + + + Uric Acid (04/11/2020 3:59 AM PDT)Only the most recent of 4 results within the time period is included. + + + + + + | Component | Value | Ref Range | Performed | Pathologist | | | | | At | Signature | + + + + + + | Uric Acid | 2.3 (L)Comment: Testing | 3.2 - 8.6 mg/dL | [facility] | | | | performed at [facility];[address] | | LABORATORY | | | [address];[place], [place] | | | | | | [address] | | | | + + + + + + + + | Specimen | + + | Blood | + + + + + + + | Performing | Address | City/State/Zipcode | Phone Number | | Organization | | | | + + + + + | [facility] | [address] | [place] [address] | [phone] | + + + + + COMPASS EVALUATION, BONE MARROW (04/02/2020 12:49 PM PDT) + + + + + + | Component | Value | Ref Range | Performed | Pathologist | | | | | At | Signature | + + + + + + | Cytogenetic | See BelowComment: Report | | REFERENCE | | | Result | Number: | | LAB | | | | [id number] | | [facility] | | | | [...] 48EB, | | | | | | [id number] | | | | | | Technique [...] | | | | | [place], [address], | | | | | | [place], [place] / | | | | | | [address]/ [phone] / | | | | | | CLIA #[id number] / | | | | | | Medical | | | | | | Director(s):Mya | | | | | | Ananth Kim The | | | | | | Technical Component | | | | | | Analysis ofthis test was | | | | | | completed at | | | | | | [facility], | | | | | | [address], | | | | | | [place], [place] / [address] / | | | | | | [phone] / | | | | | | CLIA#[id number] / | | | | | | Channel Installer(s): | | | | | | Isiah Baig M.D. | | | | | | TheProfessional | | | | | | Component of this test | | | | | | was completed | | | | | | [facility], [address] | | | | | [address], | | | | | | [place], [place] / [address] | | | | | | /[phone] / CLIA# | | | | | | [id number] / Medical | | | | | | Director(s): Pierre | | | | | | Ph.D.. [...] | | | | | the billing alliance party.Please | | | | | | direct any questions | | | | | | regarding coding to the | | | | | | payerbeing billed. | | | | + + + + + + | Compass | See BelowComment: Report | | REFERENCE | | | | Number: | | LAB | | | | [id number] | | [facility] | | | | [...] | | | PAX6; Ki-67 60% (17 MAR | | | | | | 2019). [...] | | | | | | [facility] | | [place], [address] | | | | | | [facility], | | | | | | [place] /[address] / | | | | | | [phone] / CLIA | | | | | | #[id number] / | | | | | | [...] | | LAB | | | | [id number] | | [facility] | | | | [...] | | | | | | CD117,HLA-DR, [place], | | | | | | Lambda ELECTRONIC | | | | | | SIGNATURE See | | | | | | NotesElectronically | | | | | | signed by: | | | | | | Date Jerilyn Karol | | | | | | 04-04-2020 | | | | | | LEGAL DISCLAIMER | | | | | | See NotesThe | | | | | | Technical Component | | | | | | Processing and Analysis | | | | | | of this testwas | | | | | | completed at [facility] | | | | | | [place], [address] | | | | | [address], [place], [place] | | | | | | / [address] / [phone] | | | | | | / CLIA #[id number] / | | | | | | MedicalDirector(s): | | | | | | Mya Kim M.D. | | | | | | The Professional | | | | | | Componentof this test | | | | | | was completed at | | | | | | [facility] [place], | | | | | | [address] [place] [address], | | | | | | [place] / [address] / | | | | | | [phone] / | | | | | | CLIA#[id number] / | | | | | | Channel Installer(s): | | | | | | Isiah [...] | | | | | Amendments of 1987 | | | | | | (CLIA) as qualified to | | | | | | performhigh complexity | | | | | | clinical testing. Images | | | | | | that may be | | | | | | includedwithin this | | | | | | report are | | | | | | livestock sales representative of the | | | | [...] | | | | | | billing alliance party. Please | | | | | | direct any questions | | | | | | regardingcoding to the | | | | | | payer being billed. | | | | + + + + + + | Pathology | See BelowComment: Report | | REFERENCE | | | Comment 1 | Number: | | LAB | | | | [id number] | | [facility] | | | | [...] 1(800) | | | | | | [phone]. Clinical Data | | | | | [...] NotesCase | | | | | | [id number] is received | | | | | [...] | | | | | | by [employer] | | | | | | Laboratories [...] increased.MYELOPOIESIS: | | | | | | Medical Pathologist maturation is | | | | | | observed. | | | | | | ERYTHROPOIESIS: Medical Pathologist | | | | | | maturation [...] | | | | | | See UphfhXB75 | | | | | | (core): [...] | | | | | | / [address] / [phone] | | | | | | / CLIA #[id number] / | | | | | | MedicalDirector(s): | | | | | | Mya Agersborg, M.D. | | | | | | The Professional | | | | | | Componentof this test | | | | | | was completed at | | | | | | [facility] [place], | | | | | | [address], | | | | | | [place] / [address] / | | | | | | [phone] / | | | | | | CLIA#[id number] / | | | | | | Channel Installer(s): | | | | | | Isiah [...] | | | | | | of 1988("CLIA") as | | | | | | [...] are | | | | | | livestock sales representative of the | | | | | | patientbut not all | | | | | | testing in its entirety | | | | | | and should not be used | | | | | | torender a | | | | | | result.Testing Performed | | | | | | at [facility] | | | | | | Laboratory | | | | | | | | | | | | [address] | | | | | [place] [address] | | | | + + + + + + + + | Specimen | + + | | + + + + + + + | Performing | Address | City/State/Zipcode | Phone Number | | Organization | | | | + + + + + | REFERENCE LAB | [address] [facility] | [place] | [phone] | | [facility] | Bl[address] | [address] | | | LABORATORY | | | | + + + + + | REFERENCE LAB | [address] | [place] | | | [facility] | Blvd[address] | [address] | | | LABORATORY | | | | + + + + + Hepatitis Panel (04/02/2020 11:41 AM PDT) + [...] | | | | | | 0.9The [facility] recommends | | | | | | that a positive HCV | | | | | | antibody resultbe | | | | | | followed up with a HCV | | | | | | Nucleic Acid | | | | | | Amplificationtest | | | | | | ([id number]).Testing | | | | | | performed at [facility], | | | | | | [address], [address], | | | | | | [facility] [address] | | | | + + + + + + + + | Specimen | + + | | + + + + + + + | Performing | Address | City/State/Zipcode | Phone Number | | Organization | | | | + + + + + | REFERENCE LAB | [address] | [place] | [phone] | | [facility] | Bl[address] | [address] | | | LABORATORY | | | | + + + + + | REFERENCE LAB | [address] | [place] | | | [facility] | Blvd[address] | [address] | | | LABORATORY | | | | + + + + + IR Placement Port (04/01/2020 10:59 AM PDT) [...] limited | | | to bleeding, pneumothorax, infection,truck terminal manager vein occlusion, | | | allergic reaction [...] | Procedure Note | + + | [facility], [id number] - 04/01/2020 4:26 PM PDT | | [...] limited to bleeding, pneumothorax, infection, | | halfway vein occlusion, allergic reaction and . | [...] vein. Using standard Seldinger technique, a 5 Greenlandic | | micropuncture sheath was position over [...] | | | + +---------+ + + Protime INR (04/01/2020 9:07 AM PDT) + + + + + + | Component | Value | Ref Range | Performed | Pathologist | | | | | At | Signature | + + + + + + | INR | 1.0Comment: REFERENCE | | [facility] | | | | RANGE:0.9 - 1.2 [...] | | | performed at [facility] | | | | | | [address];[place] | | | | | | [address] | | | | + + + + + + + + | Specimen | + + | Blood | + + + + + + + | Performing | Address | City/State/Zipcode | Phone Number | | Organization | | | | + + + + + | [facility] | [address] | [place] [address] | [phone] | + + + + + NM Cardiac MUGA Scan (03/30/2020 11:30 AM [...] Procedure Note | + + | Stan, [id number] - 03/30/2020 12:10 PM PDT | | [...] | | Final Report Signed by: Ananth Bauman, Rocky | | Sign Date/Time: 03/30/2020 12:06 PM | + + + +---------+ + + | Performing | Address | City/State/Zipcode | Phone Number | | Organization | | | | + +---------+ + + | [facility] | | | | + +---------+ + + Slide Review, Peripheral Smear (03/27/2020 [...] [place] | | | | | | [address] | | | | + + + + + + + + | Specimen | + + | Blood | + + + + + + + | Performing | Address | City/State/Zipcode | Phone Number | | Organization | | | | + + + + + | REFERENCE LAB | [address] [place] [address] | [place] | [phone] | | [facility] | Blvd[address] | [address] | | | LABORATORY | | | | + + + + + | REFERENCE LAB | [address] [place] [address] | [place] | | | [facility] | Blvd. | [address] | | | LABORATORY | | | [...] REFERENCE | | | | performed at [facility];[address] | | LAB | | | | [address] | | [facility] | | | | Bl[address];[place] [address] | | LABORATORY | | + + + + + + + + | Specimen | + + | Blood | + + + + + + + | Performing | Address | City/State/Zipcode | Phone Number | | Organization | | | | + + + + + | REFERENCE LAB | [address] | [place] | [phone] | | [facility] | Bl[address] | [address] | | | LABORATORY | | | | + + + + + | REFERENCE LAB | [address] [facility] | [place] | | | [facility] | Blvd[address] | [address] | | | LABORATORY | | | [...] | | LABORATORY | | | | [address] | | | | + + + + + + + + | Specimen | + + | Blood | + + + + + + + | Performing | Address | City/State/Zipcode | Phone Number | | Organization | | | | + + + + + | REFERENCE LAB | [address] | [place] | [phone] | | [facility] | Bl[address] | [address] | | | LABORATORY | | | | + + + + + | REFERENCE LAB | [address] | [place] | | | [facility] | Bl[address] | [address] | | | LABORATORY | | | | + + + + + from Last 3 Months Insurance + +--------+ +--------+ +---------+--------+ | Payer | Benefi | Subscriber | Effect | Phone | Address | Type | | | t Plan | ID | willis | | | | | | / | | Dates | | | | | | Group | | | | | | + +--------+ +--------+ +---------+--------+ | [employer] | [employer] | [id number] | 03/05/20 | [phone] | | Medica | | MEDICAID HMO | HEALTH | | 20-Pre | 1 | | id | | | MDCD | | sent | | | | | | [place]MO [place] | | | | | | + +--------+ +--------+ +---------+--------+ + +--------+ +--------+ + + | Guarantor Name | Accoun | Relation to | Date | Phone | Billing Address | | | t Type | Patient | of | | | | | | | | | | + +--------+ +--------+ + + | Asad Longo | Person | Self [birth year] | | | | al/Fam | | 1989 | [phone] | [place], [place] | | | [place] | | | 3 (Home) | [phone] | + +--------+ +--------+ + + | Asad Longo | Person | Self | [birth year] | | | | al/Fam | | 1989 | [phone] | [place], [place] | | | [place] | | | 3 (Home) | [phone] | + +--------+ +--------+ + + Advance Directives + + + + + | Type | Date Recorded | Patient | Explanation | | | | Shower Attendant | | + + + + + | Power of | | | | | Sports Therapist | | | | + + + + + | Advance | 03/18/2020 1:45 | | | | Directive | PM | | | + + + + + + + + + + | Code Status | Date | Date | Comments | | | Activated | Inactivated | | + + + + + | Full Code | 06/10/2020 | 06/15/2020 | | | | 7:37 PM | 9:11 PM | | + + + + + + + + +---+ | | | | | + + + +---+ | Full Code | 05/19/2020 | 05/24/2020 | | | | 7:14 PM | 9:47 PM | | + + + +---+ + + + +---+ | | | | | + + + +---+ | Full Code | 04/29/2020 | 2020 | | | | 8:30 PM | 8:02 PM | | + + + +---+ + + + +---+ | | | | | + + + +---+ | Full Code | 04/08/2020 | 04/13/2020 | | | | 7:11 PM | 6:57 PM | | + + + +---+ + + + +---+ | | | | | + + + +---+ | Full Code | 03/20/2020 | 03/20/2020 | | | | 3:29 PM | 5:31 PM | | + + + +---+
--- OUTSIDE RECORDS SUMMARY | ~2020-06-23 | XMS | Encounter Summary ---
Demographics + + + | Address | [address] | | | [place] [address] | + + + | Home Phone [...] Team Providers + +------+ + | Care Borough Coordinator Name | Role | Phone | [...] + + | 05/19/ | Hospital | [facility] | Addie Whiteside MD | Admission for | | 2019 - | Encounter | [facility] | [address] [place] | antineoplastic | | | | CARE FLOOR [address] | [address] [place], [place] | chemotherapy | | 05/24/ | | [address] | [address] | (Primary Dx); Dental | | 2019 | | [place], [place] | | caries; Diffuse | | | | [address] | Cherelle Mathews MD | large B-cell | | | | [phone] | [address] | lymphoma of lymph | | | | | [place] [address] | nodes of multiple | | | | | [phone] | regions (HCC); | | | | [...] Mathews MD - 05/24/2020 1:12 PM PDT [facility] Service: Hospitalist Physician Discharge Summary Patient [...] to get GCSF and labs drawn at [facility] On 05/09/20. Past Medical History: Past [...] Disposition: Home or Self Care Follow up: [facility] [address] [facility] [place] [id number] On 05/26/2020 White cell growth factor at 2:00. Wilton Jeff MD [address] [facility] [address] On 06/08/2020 Labs at 9:30. See Dr. Jeff at 10:15. Discharge Medications Unchanged Medications Details acetaminophen 500 mg tablet Take 1,000 mg by mouth every 6 hours as needed for Pain. aka: TYLENOL acyclovir 200 mg capsule Take 4 capsules by mouth 2 times daily. Indications: Herpes Zoster Prevention in Immunocom promised aka: ZOVIRAX aluminum & magnesium yndvzfqjv-gzidyduzbtr-jojmokmqpqGLSBD-lidocaine Swish and spit 15 mLs every 4 hours as needed for Sore Throat. amoxicillin-clavulanate 875-125 mg per tablet Take 1 tablet by mouth 2 times daily for 7 days. aka: AUGMENTIN benzonatate 100 mg capsule Take 100 mg by mouth 3 times daily as needed for Cough. aka: TESSALON dvjtbeemuewvixr-ivjhpzgoimrovb-cfffwkaw suspension Swish and spit 10 mLs 4 [...] enco unter Discharge Instructions Instructions Lisa Nickerson, BUSINESS DEVELOPMENT MANAGER - . You may take ondansetron (Zofran) alternating with prochlorperzine (compazine) if you experience nausea. Zofran may cause head ache or constipation. Compazine may make you sleepy. 2. Please make sure you drink plenty of fluids. 3. You must contact the clinic, call the provider shrimp pond laborer and/or seek immediate medical ca re for [...] an oncology nurse, our Triage Nurse at [facility] Hematology & Oncology can be r eached during normal business hours at [phone]. 6. White cell growth factor at [facility] on May 26 at 2:00. 7. [...] Sore | | | | | | i-jhrmtqabhlDFVGO-iy | Throat. | | | | | [...] might be differen t from the original. [facility] Service: Hematology and Oncology Progress Note Hospital Day: LOS: 5 days Patient Summary: Mr.Dylan Bernard Villarreal a 30 year oldmalewith no significant past medical history other than tobacco use (1/2-1 pack/day 7623-8057) who began experiencing cough, pleuritic ch est [...] injection on 05/26 and labs drawn at [facility] on 05/29/2020. OBJECTIVE Scheduled Medications acyclovir 800 mg Oral BID amoxicillin-clavulanate 1 tablet Oral BID cyclophosphamide (CYTOXAN) infusion 1,080 mg/m2 (Treatment Plan Recorded) Intravenous Once yvojluvdtomciau-hlukvypiccgmze-ltjtjtyd 10 mL Swish & Spit 4x Daily [...] made for white cell growth factor at [facility] on Monday, 05/26. He will also need [...] MD Hematology Oncology 05/24/2020 9:37 AM PDT [facility] Hematology & Oncology Portions of this [...] might be different from the origin al. [facility] Service: Hematology and Oncology Progress Note Hospital Day: LOS: 4 days Patient Summary: Mr.Dylan Bernard Villarreal a 30 year oldmalewith no significant past medical history other than tobacco use (1/2-1 pack/day 8081-4146) who began experiencing cough, pleuritic ch est [...] Oral BID amoxicillin-clavulanate 1 tablet Oral BID kyoubzjhkgpsaga-nobaohyluibrvs-ykjmpguh 10 mL Swish & Spit 4x Daily [...] made for white cell growth factor at [facility] on May 26. He will also need blood work at his [place]. He will have it drawn in [place] (peripher ally). Code Status: Full Code Timothy Mohamud MD Hematology Oncology 05/23/2020 3:43 PM PDT [facility] Hematology & Oncology Portions of this [...] Oral BID amoxicillin-clavulanate 1 tablet Oral BID boegvdcmlbwurlb-knxewngyswxocs-lsaregqa 10 mL Swish & Spit 4x Daily [...] Cherelle Babcock MD - 9:59 AM PDT [facility] Service: Hospitalist Progress Note Hospital Day: [...] Oral BID amoxicillin-clavulanate 1 tablet Oral BID wcesejkgovyxluz-rozgholtewfhoi-ozmdzopt 10 mL Swish & Spit 4x Daily [...] allen ARNP - 05/22/2020 9:49 AM PDT [facility] Service: Hematology and Oncology Progress Note Hospital Day: LOS: 3 days Patient Summary: Mr.Dylan Bernard iVllarreal a 30 year oldmalewith no significant past medical history other than tobacco use (1/2-1 pack/day 2115-4751) who began experiencing cough, pleuritic ch est [...] 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 There was no evidence of [...] Oral BID amoxicillin-clavulanate 1 tablet Oral BID ygyexohxuwfmvcd-mhvmkmtbvhtpom-fcrbdnem 10 mL Swish & Spit 4x Daily [...] made for white cell growth factor at [facility] on Monday, May 26. He will also need blood work at his [place], May 19. I have provided a lab order fo r him. He will have it drawn in [place] (peripherally) and I have requested they fax it to [facility] and have provided the fax number. I also alerted the Dr. Jeff's MA to watch for the results for the appointment on June 08. Code Status: Full Code Lisa Nickerson, MSN, BUSINESS DEVELOPMENT MANAGER, RUBBER FLAP TUBER MACHINE OPERATOR-C, AOCNP Oncology Nurse Practitioner 05/22/2020 9:49 AM PDT [facility] Hematology & Oncology Portions of this [...] Babcock MD - 05/21/2020 10:18 AM PDT [facility] Service: Hospitalist Progress Note Hospital Day: [...] Oral BID amoxicillin-clavulanate 1 tablet Oral BID mlepqntkhzxlsci-jtxztvgswrokyt-kvdlccct 10 mL Swish & Spit 4x Daily [...] Nickerson ARNP - 05/21/2020 8:00 AM PDT [facility] Service: Hematology and Oncology Progress Note Hospital Day: LOS: 2 days Patient Summary: Mr.Dylan Bernard Villarreal a 30 year oldmalewith no significant past medical history other than tobacco use (1/2-1 pack/day 0281-7459) who began experiencing cough, pleuritic ch est [...] Oral BID amoxicillin-clavulanate 1 tablet Oral BID hqougfvmzuutpan-wzviyqcsdzinfc-fsbdurci 10 mL Swish & Spit 4x Daily [...] lorazepam. Code Status: Full Code BETSY Gupta, BUSINESS DEVELOPMENT MANAGER, RUBBER FLAP TUBER MACHINE OPERATOR-C, AOCNP Oncology Nurse Practitioner 05/21/2020 8:[address] [facility] Hematology & Oncology Portions of this [...] weeks. Fluid/Beverage Intake Oral Fluids Amount: Ad ifordaliza. Food Intake Type of Food/Meals: Current active [...] Abraham MD - 05/20/2020 8:03 AM PDT [facility] Service: Hospitalist Progress Note Hospital Day: [...] Oral BID amoxicillin-clavulanate 1 tablet Oral BID sfvavfgqmrebinz-iewpmknntudrzi-pxvdadpi 10 mL Swish & Spit 4x Daily [...] might be different from th e original. [facility] Service: Hospitalist History and Physical Date [...] lymphoma. Timeline admission- He was admitted at [facility] from 08 April to 13 April for [...] CERVICAL NODE; Surgeon: She Huang DO; Location: [facility] [facility] OR No Known Allergies No [...] Old records reviewed on EMR. Dictation software, cWyze, used which may contain error for similar sounding words even af ter review. Personal communication requested for any clarification. Disposition: inpatient Code Status: FULL CODE Primary Care Physician: MD Addie Frank MD 05/19/2020 documented in th is encounter Consult Notes Mayte Gunderson ARNP - 05/20/2020 7:58 AM PDTAssociated Order(s): PROVIDER TO PROVIDER CON SULT [facility] Service: Hematology and Oncology Progress Note Hospital Day: LOS: 1 day Patient Summary: Mr.Dylan Bernard Villarreal a 30 year oldmalewith no significant past medical history other than tobacco use (1/2-1 pack/day 6146-8597) who began experiencing cough, pleuritic ch est [...] swelling and pain. He was seen in [facility] on May 18 and started on Augmentin [...] Oral BID amoxicillin-clavulanate 1 tablet Oral BID igbqzegmtdnmxbu-hrdwsujpacvpnn-qtoyeqdw 10 mL Swish & Spit 4x Daily [...] GCSF following treatment (to be given in [place]). Today is cycle 3 day1. Chemotherapy today. [...] discharge. Code Status: Full Code KOLE Do, RUBBER FLAP TUBER MACHINE OPERATOR- Oncology Nurse Practitioner 05/20/2020 7:[address] [facility] Hematology & Oncology Portions of this [...] 30 Days: planned readmission Previous Discharging Facility: [facility] PCP: Myrna Mejia MD Contact Information Family Contact Information: Name: Marcos Morgan (Significant other) [place] Needs Assessment Current Outpt/Agency/Support Groups: other (see comments) Community Agency Name: [facility] Anticipated Changes Related to Illness: none Concerns to be Addressed: no discharge needs identified Services Anticipated at Discharge: none, infusion therapy, outpatient Equipment Used at Home: none Equipment Needed after Discharge: none Pharmacy/Medication Needs: other (see comments)([facility] in [place]) Transportation Needs: family or friend will provide Initial Plan Anticipated Discharge Disposition: home Expected DC Date: yes Steps Taken Toward Discharge: Initial assessment completed. Next Steps: CM to follow for discharge planning. Notes: Pt resides with his significant other and children. At baseline, pt is independent - no car egiver, DME, home health, oxygen, or CPAP. Pt goes to [facility]. Pt will retu rn home with family [...] [place] | | | | | | [address] | | | | | | | | +--------+ + + + + | 06/29/ | Office | Oncology | Wilton Jeff MD | | | 2019 | Visit | | [address] | | | | | | [place] | | | | | | [address] | | | | | | | | | | | | Marilou Mcmullen, | | | | | | BUSINESS DEVELOPMENT MANAGER [address] | | [address] | | | | | | [place] [address] | | | | | | [phone] | | | | | | | | +--------+ + + + + | 06/29/ | Appointment | Infusion Therapy | Wilton Jeff MD | | | 2019 | | | [address] | | | | | | [place] | | | | | | [address] | | | | | | | | +--------+ + + + + | 07/14/ | Office | Otolaryngology | She Huang | | | 2019 | Visit | | DO Sophia Canela | | | | | | [address] | | | | | | [place] [address] | | | | | | [phone] | | | | | | | | +--------+ + + + + | 07/20/ | Appointment | Infusion Therapy | Wilton Jeff MD | | | 2019 | | | [address] | | | | | | [place] | | | | | | [address] | | | | | | | | +--------+ + + + + | 07/20/ | Office | Oncology | Wilton Jeff MD | | | 2019 | Visit | | [address] | | | | | | [place] | | | | | | [address] | | | | | | | | +--------+ + + + + | 07/20/ | Appointment | Infusion Therapy | Wilton Jeff MD | | | 2019 | | | [address] | | | | | | [place] | | | | | | [address] | | | | | | | | +--------+ + + + + | 08/17/ | Appointment | Infusion Therapy | Wilton Jeff MD | | | 2019 | | | [address] | | | | | | [place] | | | | | | [address] | | | | | | | | +--------+ + + + + | 08/17/ | Office | Oncology | Wilton Jeff MD | | | 2019 | Visit | | [address] | | | | | | [place] | | | | | | [address] | | | | | | | [...] | | | | | | MDRD IDVA traceable | | | | | | equation.Testing | | | | | | performed at [facility], [address] | | | | | | [facility], | | | | | | [place] [address] | | | | + + + + + + + + | Specimen | + + | Blood | + + + + + + + | Performing | Address | City/State/Zipcode | Phone Number | | Organization | | | | + + + + + | [facility] | [address] | [place] [address] | [phone] | + + + + + CBC [...] 0.00Comment: Testing | 0.00 - 0.10 | [facility] | | | Absolute | performed at [facility], [address] | [address] | LABORATORY | | | | [address], | | | | | | [place] [address] | | | | + + + + + + + + | Specimen | + + | Blood | + + + + + + + | Performing | Address | City/State/Zipcode | Phone Number | | Organization | | | | + + + + + | [facility] | [address] | [place] [address] | [phone] | + + + + + Comprehensive [...] | performed at [facility] | | | | | | [facility];[place], [place] | | | | | | [address] | | | | + + + + + + + + | Specimen | + + | Blood | + + + + + + + | Performing | Address | City/State/Zipcode | Phone Number | | Organization | | | | + + + + + | [facility] | [address] | [place] [address] | [phone] | + + + + + CBC [...] | LABORATORY | | | | [address];[place], [place] | | | | | | [address] | | | | + + + + + + + + | Specimen | + + | Blood | + + + + + + + | Performing | Address | City/State/Zipcode | Phone Number | | Organization | | | | + + + + + | [facility] | [address] | [place] [address] | [phone] | + + + + + Comprehensive [...] | >60Comment: GFR <60: | >60 | [facility] | | | GFR | CHRONIC [...] | | | | | performed at [facility], [address] | | | | | | [facility], | | | | | | [place] [address] | | | | + + + + + + + + | Specimen | + + | Blood | + + + + + + + | Performing | Address | City/State/Zipcode | Phone Number | | Organization | | | | + + + + + | [facility] | [address] | [place] [address] | [phone] | + + + + + CBC [...] 0.03Comment: Testing | 0.00 - 0.10 | [facility] | | | Absolute | performed at [facility], [address] | K[address] | LABORATORY | | | | [address], | | | | | | [place] [address] | | | | + + + + + + + + | Specimen | + + | Blood | + + + + + + + | Performing | Address | City/State/Zipcode | Phone Number | | Organization | | | | + + + + + | [facility] | [address] | [place] [address] | [phone] | + + + + + Comprehensive [...] [place];[address] | | | | | | [facility];[place], [place] | | | | | | [address] | | | | + + + + + + + + | Specimen | + + | Blood | + + + + + + + | Performing | Address | City/State/Zipcode | Phone Number | | Organization | | | | + + + + + | [facility] | [address] | [place] [address] | [phone] | + + + + + CBC [...] at | | | | | | [facility];[address];[place] [address] | | | | + + + + + + + + | Specimen | + + | Blood | + + + + + + + | Performing | Address | City/State/Zipcode | Phone Number | | Organization | | | | + + + + + | [facility] | [address] | [place] [address] | [phone] | + + + + + Magnesium [...] | | LABORATORY | | | | [facility];[place], [place] | | | | | | [address] | | | | + + + + + + + + | Specimen | + + | Blood | + + + + + + + | Performing | Address | City/State/Zipcode | Phone Number | | Organization | | | | + + + + + | [facility] | [address] | [place] [address] | [phone] | + + + + + Phosphorus (05/20/2020 4:11 AM PDT) + + + + + + | Component | Value | Ref Range | Performed | Pathologist | | | | | At | Signature | + + + + + + | Phosphorus | 5.0 (H)Comment: Testing | 2.3 - 4.8 mg/dL | [facility] | | | | performed at [facility];[address] | | LABORATORY | | | | [address];[place], [place] | | | | | | [address] | | | | + + + + + + + + | Specimen | + + | Blood | + + + + + + + | Performing | Address | City/State/Zipcode | Phone Number | | Organization | | | | + + + + + | [facility] | [address] | [place] [address] | [phone] | + + + + + Magnesium (05/20/2020 4:11 AM PDT) + + + + + + | Component | Value | Ref Range | Performed | Pathologist | | | | | At | Signature | + + + + + + | Magnesium | 1.9Comment: Testing | 1.7 - 2.4 mg/dL | [facility] | | | | performed at [facility];[address] | | LABORATORY | | | | [address];[place], [place] | | | | | | [address] | | | | + + + + + + + + | Specimen | + + | Blood | + + + + + + + | Performing | Address | City/State/Zipcode | Phone Number | | Organization | | | | + + + + + | [facility] | [address] | [place] [address] | [phone] | + + + + + Comprehensive [...] | | | | | | [address] [facility];[place], [place] | | | | | | [address] | | | | + + + + + + + + | Specimen | + + | Blood | + + + + + + + | Performing | Address | City/State/Zipcode | Phone Number | | Organization | | | | + + + + + | [facility] | [address] [facility] | [place] [address] | [phone] | + + + + + CBC [...] [place] | | | | | | [address] | | | | | | | | | | + + + + + + + + | Specimen | + + | Blood | + + + + + + + | Performing | Address | City/State/Zipcode | Phone Number | | Organization | | | | + + + + + | [facility] | [address] | [place] [address] | [phone] | + + + + + documented [...] | 10 mLs | | | | gciheconpkcjpqn-wqezrbrdwomlom-le | | 20 8:37 | | | [...] | | | | | nausea, Starting [facility] 05/21/20 at | | | | | [...] | | | over 15 Minutes, ONCE, [facility] | | | | | | | [...]
--- OUTSIDE RECORDS SUMMARY | ~2020-06-23 | XMS | Encounter Summary ---
Demographics + + + | Address | [address] | | | [place] [address] | + + + | Home Phone [...] Team Providers + +------+ + | Care Lease Examiner Name | Role | Phone | + +------+ + | Myrna Mejia MD | PCP | | + +------+ + Encounter Details +--------+ + + + + | Date | Type | Department | Care Team | Description | +--------+ + + + + | 04/02/ | Orders Only | [facility] | Wilton Jeff MD | Mediastinal large | | 2019 | | HEMATOLOGY AND | [address] | B-cell lymphoma of | | | | ONCOLOGY [address] | [place], [place] | lymph nodes of | | | | [address] | [address] | multiple regions | | | | [place], [place] | | (HCC) (Primary Dx) | | | | [address] | | | | | | [phone] | | | +--------+ + + + [...] [place] | | | | | | [address] | | | | | | | | +--------+ + + + + | 06/29/ | Office | Oncology | Wilton Jeff MD | | | 2019 | Visit | | [address] | | | | | | [place] | | | | | | [address] | | | | | | | | | | | | Marilou Mcmullen, | | | | | | PSYCHOLOGY TECHNICIAN [address] | | | | | | [address] | | | | | | [place] [address] | | | | | | [phone] | | | | | | | | +--------+ + + + + | 06/29/ | Appointment | Infusion Therapy | Wilton Jeff MD | | | 2019 | | | [address] | | | | | | [place] | | | | | | [address] | | | | | | | | +--------+ + + + + | 07/14/ | Office | Otolaryngology | She Huang | | | 2019 | Visit | | DO Sophia Canela | | | | | | [place] [address] | | | | | | [place] [address] | | | | | | [phone] | | | | | | | | +--------+ + + + + | 07/20/ | Appointment | Infusion Therapy | Wilton Jeff MD | | | 2019 | | | [address] | | | | | | [place] | | | | | | [address] | | | | | | | | +--------+ + + + + | 07/20/ | Office | Oncology | Wilton Jeff MD | | | 2019 | Visit | | [address] | | | | | | [place] | | | | | | [address] | | | | | | | | +--------+ + + + + | 07/20/ | Appointment | Infusion Therapy | Wilton Jeff MD | | | 2019 | | | [address] | | | | | | [place] | | | | | | [address] | | | | | | | | +--------+ + + + + | 08/17/ | Appointment | Infusion Therapy | Wilton Jeff MD | | | 2019 | | | [address] | | | | | | [place] | | | | | | [address] | | | | | | | | +--------+ + + + + | 08/17/ | Office | Oncology | Wilton Jeff MD | | | 2020 | Visit | | [address] | | | | | | [place] | | | | | | [address] | | | | | | | | +--------+ + + + + documented as of this encounter Visit Diagnoses + + | Diagnosis | + + | 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
--- OUTSIDE RECORDS SUMMARY | ~2020-06-23 | XMS | Encounter Summary ---
Demographics + + + | Address | [address] | | | [place] [address] | + + + | Home Phone [...] Author + + + | Author | [facility] | | | and [place] | + + + | Organization | [facility] | | [...] Team Providers + +------+ + | Care Instructional Technology Facilitator Name | Role | Phone | + [...] | | | | | | | [place] | | | | | | | [...] + + | 03/20/ | Anesthesia | [facility] | Carmela Knight CRNA | | | 2020 | Event [facility] | [address] | | | | | OPER[address] | [place] [address] | | | | | [address] | [phone] | | | | | [place], [place] | | | | | | [address] | | | | | | [phone] | | | +--------+ + + + [...] +----+---+ + + | | 1 | Benedict | | | | 2 | 43-degrees [...] 03/20/20 1519 by | | rehan | gzdt-orp-mleorl catheter system; | Cherelle Cook | Nuria [...] EVALUATION Asad Longo 29 y.o. male 1990 [id number] Procedure(s) BIOPSY DEEP CERVICAL NODE (Right Neck) [...] Carmela Knight CRNA 03/20/2020 1:52 PM PDT [facility] nesthesia Procedure Notes - Carmela Knight CRNA [...] EVALUATION Asad Longo 29 y.o. male 1990 [id number] Procedure(s): BIOPSY CERVICAL NODE (Right Neck) Medical,anesthesia, [...] Asad Bernard Longo 29 y.o. male 1990 [id number] BIOPSY DEEP CERVICAL NODE (Right Neck) HANDOFF [...] Carmela Knight CRNA 03/20/2020 1:52 PM PDT [facility] documented in this encounter Plan of Treatment [...] [place] | | | | | | [address] | | | | | | | | +--------+ + + + + | 06/29/ | Office | Oncology | Wilton Jeff MD | | | 2019 | Visit | | [address] | | | | | | [place] | | | | | | [address] | | | | | | | | | | | | Marilou Mcmullen, | | | | | | WALL WASHER [address] | | | | | [address] | | | | | | [place] [address] | | | | | | [phone] | | | | | | | | +--------+ + + + + | 06/29/ | Appointment | Infusion Therapy | Wilton Jeff MD | | | 2019 | | | [address] | | | | | | [place] | | | | | | [address] | | | | | | | | +--------+ + + + + | 07/14/ | Office | Otolaryngology | She Huang | | | 2019 | Visit | | DO Sophia Canela | | | | | | [address] | | | | | | [place] [address] | | | | | | [phone] | | | | | | | | +--------+ + + + + | 07/20/ | Appointment | Infusion Therapy | Wilton Jeff MD | | | 2019 | | | [address] | | | | | | [place] | | | | | | [address] | | | | | | | | +--------+ + + + + | 07/20/ | Office | Oncology | Wilton Jeff MD | | | 2019 | Visit | | [address] | | | | | | [place] | | | | | | [address] | | | | | | | | +--------+ + + + + | 07/20/ | Appointment | Infusion Therapy | Wilton Jeff MD | | | 2019 | | | [address] | | | | | | [place] | | | | | | [address] | | | | | | | | +--------+ + + + + | 08/17/ | Appointment | Infusion Therapy | Wilton Jeff MD | | | 2019 | | | [address] | | | | | | [place] | | | | | | [address] | | | | | | | | +--------+ + + + + | 08/17/ | Office | Oncology | Wilton Jeff MD | | | 2019 | Visit | | [address] | | | | | | [place] | | | | | | [address] | | | | | | | [...]
--- OUTSIDE RECORDS SUMMARY | ~2020-06-23 | XMS | Encounter Summary ---
Demographics + + + | Address | [address] | | | [place] [address] | + + + | Home Phone [...] + + + | Author | [facility] | | | and [place] | + + + | Organization | [facility] | | | [...] Team Providers + +------+ + | Care Patcher Bowling Ball Name | Role | Phone | + +------+ + | Myrna Mejia MD | PCP | | + +------+ + Encounter Details +--------+ + + + + | Date | Type | Department | Care Team | Description | +--------+ + + + + | 04/06/ | Orders Only | [facility] | Kesha Mcdaniel RP | | | 2020 | | HEMATOLOGY AND | | | | | | ONCOLOGY PHARMACY | | | | | | [address] | | | | | | [place] | | | | | | [address] | | | | | | [phone] | | | +--------+ + + + [...] [place] | | | | | | [address] | | | | | | | | +--------+ + + + + | 06/29/ | Office | Oncology | Wilton Jeff MD | | | 2019 | Visit | | [address] | | | | | | [place] | | | | | | [address] | | | | | | | | | | | | Marilou Mcmullen, | | | | | | SENIOR SOFTWARE PROJECT MANAGER [address] | | | | | | [address] | | | | | | [place] [address] | | | | | | [phone] | | | | | | | | +--------+ + + + + | 06/29/ | Appointment | Infusion Therapy | Wilton Jeff MD | | | 2019 | | | [address] | | | | | | [place] | | | | | | [address] | | | | | | | | +--------+ + + + + | 07/14/ | Office | Otolaryngology | She Huang | | | 2019 | Visit | | DO Sophia Canela | | | | | | [place] [address] | | | | | | [place] [address] | | | | | | [phone] | | | | | | | | +--------+ + + + + | 07/20/ | Appointment | Infusion Therapy | Wilton Jeff MD | | | 2019 | | | [address] | | | | | | [place] | | | | | | [address] | | | | | | | | +--------+ + + + + | 07/20/ | Office | Oncology | Wilton Jeff MD | | | 2019 | Visit | | [address] | | | | | | [place] | | | | | | [address] | | | | | | | | +--------+ + + + + | 07/20/ | Appointment | Infusion Therapy | Wilton Jeff MD | | | 2019 | | | [address] | | | | | | [place] | | | | | | [address] | | | | | | | | +--------+ + + + + | 08/17/ | Appointment | Infusion Therapy | Wilton Jeff MD | | | 2019 | | | [address] | | | | | | [place] | | | | | | [address] | | | | | | | | +--------+ + + + + | 08/17/ | Office | Oncology | Wilton Jeff MD | | | 2019 | Visit | | [address] | | | | | | [place], [place] | | | | | | [address] | | | | | | | | +--------+ + + + + documented as of this encounter Visit Diagnoses Not on filedocumented in this encounter"
--- OUTSIDE RECORDS SUMMARY | ~2020-06-23 | XMS | Encounter Summary ---
Demographics + + + | Address | [address] | | | [place] [address] | + + + | Home Phone | | + + + | Preferred Language | Unknown | + + + | Marital Status | Single | + + + | Confucianist Affiliation | Unknown | + + + [...] Team Providers + +------+ + | Care Dispatcher Automobile Rental Name | Role | Phone | + +------+ + | Myrna Mejia MD | PCP | | + +------+ + Reason for Visit +--------+--------+ + | Reason | Onset | Comments | | | Date | | +--------+--------+ + | Other | 05/15/ | Request for admission to inpatient for chemotherapy | | | 2020 | | +--------+--------+ + Encounter Details +--------+ + + + + | Date | Type | Department | Care Team | Description | +--------+ + + + + | 05/15/ | Telephone | [facility] | Tina Cadet RN | Other (Request for | | 2020 | | INFUSION SUPPORT | | admission to | | | | SERVICES [address] | | inpatient for | | | | [address] | | chemotherapy) | | | | [address] [place] | | | | | | [address] | | | | | | [phone] | | | +--------+ + + + [...] Telephone Encounter - Tina Cadet RN - 05/15/2020 12:58 PM PDTOutLook Email sent to [facility] Oncology Direct Admit Notification: ONC DA Patient: Asad Longo : 1990 Dx: B-Cell Lymphoma Provider Contact: KOLE Simmons (Dr. Jeff out of office) Admit Date: Monday05/19/20 Chemo Date: 05/20/20 Regimen: DA-EPOCH + R Notes: Patient will see Marilou Mcmullen prior for clearance, then receive C3D0 Rituxan in cl inic on 05/18/20. Per patient insurance he must wait one midnight for hospital admissio n. Patient is scheduled 05/26/20 3:00pm in clinic for Udenyca injection. documented in this enc ounter Plan of [...] [place] | | | | | | [address] | | | | | | | | +--------+ + + + + | 06/29/ | Office | Oncology | Wilton Jeff MD | | | 2019 | Visit | | [address] | | | | | | [place] | | | | | | [address] | | | | | | | | | | | | Marilou Mcmullen, | | | | | | MARKETING SENIOR RECRUITER [address] | | | | | | [address] | | | | | | [place] [address] | | | | | | [phone] | | | | | | | | +--------+ + + + + | 06/29/ | Appointment | Infusion Therapy | Wilton Jeff MD | | | 2019 | | | [address] | | | | | | [place] | | | | | | [address] | | | | | | | | +--------+ + + + + | 07/14/ | Office | Otolaryngology | She Huang | | | 2019 | Visit | | DO Sophia Canela | | | | | | [place] [address] | | | | | | [place] [address] | | | | | | [phone] | | | | | | | | +--------+ + + + + | 07/20/ | Appointment | Infusion Therapy | Wilton Jeff MD | | | 2019 | | | [address] | | | | | | [place] | | | | | | [address] | | | | | | | | +--------+ + + + + | 07/20/ | Office | Oncology | Wilton Jeff MD | | | 2019 | Visit | | [address] | | | | | | [place] | | | | | | [address] | | | | | | | | +--------+ + + + + | 07/20/ | Appointment | Infusion Therapy | Wilton Jeff MD | | | 2019 | | | [address] | | | | | | [place] | | | | | | [address] | | | | | | | | +--------+ + + + + | 08/17/ | Appointment | Infusion Therapy | Wilton Jeff MD | | | 2019 | | | [address] | | | | | | [place] | | | | | | [address] | | | | | | | | +--------+ + + + + | 08/17/ | Office | Oncology | Wilton Jeff MD | | | 2020 | Visit | | [address] | | | | | | [place] | | | | | | [address] | | | | | | | | +--------+ + + + + documented as of this encounter Visit Diagnoses Not on filedocumented in this encounter"
--- OUTSIDE RECORDS SUMMARY | ~2020-06-23 | XMS | Encounter Summary ---
Demographics + + + | Address | [address] | | | [place] [address] | + + + | Home Phone | | + + + | Preferred Language | Unknown | + + + | Marital Status | Single | + + + | Presybeterian Affiliation | Unknown | + + + | Race | White | + + + | Ethnic Group | Not or | + + + Author + + + | Author | [facility] | | | and [place] | + + + | Organization | [facility] | | | [...] Team Providers + +------+ + | Care Shotweld Operator Name | Role | Phone | + +------+ + | Myrna Mejia MD | PCP | | + +------+ + Reason for Referral Evaluate & Treat (Urgent) +--------+ + + + + + | Status | Reason | Specialty | Diagnoses / | Referred By | Referred To | | | | | Procedures | Contact | Contact | +--------+ + + + + + | Closed | Specialty | Dental | Diagnoses | [facility], | | | | Services | General | Diffuse | Marilou, | | | | Required | Practice | large B-cell | DIRECTOR ENVIRONMENTAL [address] | | | | | | lymphoma of | [address] | | | | | | lymph nodes | [address] | | | | | | of multiple | [place] | | | | | | regions | [place] [address] | | | | | | (HCC) | Phone: | | | | | | Dental | [phone] | | | | | | caries | Fax: | | | | | | | [phone] | | +--------+ + + + + + Encounter Details +--------+---------+ + + + | Date | Type | Department | Care Team | Description | +--------+---------+ + + + | 05/18/ | Office | [facility] | Wilton Jeff MD | Diffuse large B-cell | | 2020 | Visit | HEMATOLOGY AND | [address] | lymphoma of lymph | | | | ONCOLOGY [address] | [place] | nodes of multiple | | | | [address] | [address] | regions (HCC) | | | | [place] | | (Primary Dx); Dental | | | | [address] | Marilou Ovalles, | caries | | | | [phone] | DIRECTOR ENVIRONMENTAL [address] | | | | | | [address] | | | | | | [place] [address] | | | | | | [phone] | | | | | | | [...] + + + | Blood Pressure | 112/74 | 05/18/2020 9:23 AM | | | | | PDT | | + + + + + | Pulse | 88 | 05/18/2020 9:19 AM | | | | | PDT | | + + + + + | Temperature | 36.8 C (98.2 F) | 05/18/2020 9:19 AM | | | | | PDT | | + + + + + | Respiratory Rate | 16 | 05/18/2020 9:19 AM | | | | | PDT | | + + + + + | Oxygen Saturation | 99% | 05/18/2020 9:19 AM | | | | | PDT | | + + + + + | Inhaled Oxygen | - | - | | | Concentration | | | | + + + + + | Weight | 98.9 kg (218 lb) | 05/18/2020 9:19 AM | | | | | PDT | | + + + + + | Height | 180.3 cm (5' 11") | 05/18/2020 9:19 AM | | | | | PDT | | + + + + + | Body Mass Index | 30.4 | 05/18/2020 9:19 AM | | | | | [...] documented as of this encounter Progress Notes Suechristina MarilouKOLE - 05/18/2020 9:15 AM PDTFormatting of this note might be different fr om the original. [facility] Hematology & Oncology Oncology Progress Note [...] of rituximab on April 06, 2020 at [facility]. He then received days 1-5 of EPOCH [...] DA-R-EPOCH. Reason for Office Visit/Interval History Asad presents today to be cleared for cycle 3 of chemotherapy. Today is day 0, rituximab g ivangie at [facility]. He reports developing mouth sores with cycles 1 and 2 of chemotherapy, much w orse with cycle 2. After he was discharged from the hospital he developed a mouth sore fredy g a "bad tooth" in the left lower gums. This caused the tooth to ache and this pain extende d into his jaw and slightly down his neck. This has since improved significantly. He state s this tooth has been unhealthy for a long time. He was last seen by a dentist 4 years ago and cannot recall the name of the dentist. He denies any fevers or chills, discharge from t he gum, bleeding, swelling in the neck or chin, problems swallowing or other associated symp toms. His nausea was well controlled with his antiemetics. He reports eating really well a nd has noted some weight gain. He denies headaches or dizziness, cough or shortness of arlene th, wheezing, abdominal pain, constipation or diarrhea, rash, new swelling or other issues. He has no other complaints except those listed in the review of systems. 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 Indications: Herpes Zoster Prevention in Immunocompromised 240 capsule 5 allopurinol (ZYLOPRIM) 300 mg tablet Take 1 tablet by mouth Daily. 10 tablet 0 aluminum & magnesium zclsjkwen-pjexzajhqyi-fvdrnnfyizFSVQW-lidocaine Swish and spit 15 mLs every 4 hours as needed for Sore Throat. 600 mL 2 benzonatate (TESSALON) 100 mg capsule Take 100 mg by mouth 3 times daily as needed for Cough. yphupfozeqtesnv-klqhskfzmpthan-uweaetcg (DUKES MOUTHWASH) suspension Swish and spit 10 [...] taking: Reported on 04/27/2020.) 20 tablet 0 prochlorperazine 10 mg tablet Take 1 tablet by mouth every 6 hours as needed (Nausea/Vo miting). (Patient not taking: Reported on 04/17/2020.) 30 tablet 11 No current facility-administered medications for this visit. Medications reviewed and updated on 05/17/2020 Review of Systems Review of Systems Constitutional: Negative for activity change, appetite change, chills, fatigue, fever and u nexpected weight change. HENT: Positive for dental problem and mouth sores. Negative for nosebleeds, sore throat and trouble swallowing. Eyes: Negative for visual disturbance. Respiratory: Negative for cough, chest tightness, shortness of breath and wheezing. Cardiovascular: Negative. Negative for chest pain, palpitations and leg swelling. Gastrointestinal: Negative. Negative for abdominal distention, abdominal pain, blood in st ool, constipation, diarrhea, nausea and vomiting. Genitourinary: Negative. Negative for dysuria and hematuria. Musculoskeletal: Negative. Negative for arthralgias and back pain. Skin: Negative. Negative for color change and rash. Neurological: Negative. Negative for dizziness, numbness and headaches. Hematological: Negative for adenopathy. Does not bruise/bleed easily. Psychiatric/Behavioral: Negative. Negative for sleep disturbance. Physical Exam BP 112/74 | Pulse 88 | Temp 36.8 C (98.2 F) | Resp 16 | Ht 1.803 m (5' 11") | Wt 9 8.9 kg (218 lb) | SpO2 99% | BMI 30.40 kg/m ECOG Performance Status: 0 Physical Exam Constitutional: General: He is not in acute distress. Appearance: Normal appearance. He is well-developed. He is not ill-appearing, toxic-appe aring or diaphoretic. HENT: Head: Normocephalic and atraumatic. Mouth/Throat: Mouth: Mucous membranes are moist. Pharynx: Oropharynx is clear. No oropharyngeal exudate or posterior oropharyngeal erythe ma. Comments: Left lower molar is villarreal. Gums alongside the tooth on the outer edge with an erosion present. No exposed bone noted. No erythema, edema or discharge. No tenderness of th e submental, cervical, or preauricular areas. Eyes: General: No scleral icterus. Conjunctiva/sclera: Conjunctivae normal. Pupils: Pupils are equal, round, and reactive to light. Neck: Musculoskeletal: Normal range of motion and neck supple. No muscular tenderness. Cardiovascular: Rate and Rhythm: Normal rate and regular rhythm. Heart sounds: Normal heart sounds. No murmur. No friction rub. No gallop. Pulmonary: Effort: Pulmonary effort is normal. No respiratory distress. Breath sounds: Normal breath sounds. No wheezing, rhonchi or rales. Chest: Chest [...] warm and dry. Coloration: Skin is not jaundiced or pale. Findings: No bruising, erythema, lesion or rash. Comments: MP accessed R chest wall. Skin is c/d/i Neurological: General: No focal deficit present. Mental Status: He is alert and oriented to person, place, and time. Psychiatric: Mood and Affect: Mood normal. Labs and Imaging Recent Results (from the past 24 hour(s)) Comprehensive Metabolic Panel Result Value Ref Range Na 136 135 - 145 mmol/L K 4.3 3.5 - 4.9 mmol/L Cl 104 98 - 107 mmol/L CO2 26 22 - 29 mmol/L Anion Gap 10 5 - 20 mmol/L Glucose 93 74 - 99 mg/dL BUN 16 6 - 20 mg/dL Creatinine 0.84 0.7 - 1.2 mg/dL BUN/Creatinine Ratio 19 Calcium 9.4 8.6 - 10.2 mg/dL Protein, Total 6.6 6.5 - 8.5 g/dL Albumin 4.4 3.3 - 5 g/dL Globulin 2.2 1.3 - 4.9 g/dL A/G Ratio 2.0 1.0 - 2.4 BILIRUBIN, TOTAL 0.3 0.2 - 1 mg/dL ALK PHOS 87 40 - 125 U/L AST 16 5 - 40 U/L ALT 17 5 - 41 U/L Estimated GFR >60 >60 mL/min/1.73m2 CBC with Differential Result Value Ref Range WBC 17.24 (H) 3.80 - 11.00 K/uL Red Blood Cells 3.86 (L) 4.20 - 5.70 M/uL Hemoglobin 11.2 (L) 13.2 - 17.0 g/dL Hematocrit 35.0 (L) 39.0 - 50.0 % MCV 90.7 80.0 - 100.0 fl MCH 29.0 27.0 - 34.0 pg MCHC 32.0 32.0 - 35.5 g/dL RDW-SD 61.4 (H) 37 - 53 fl Platelet Count 224 150 - 400 K/uL MPV 9.9 fl Diff Type MANUAL % Segmented Neutrophils 69 % % Bands 12 % % Metamyelocytes 6 % % Lymphocytes 7 % % Monocytes 3 % Eosinophils % 3 % Neutrophils, Absolute 11.89 (H) 1.90 - 7.40 K/uL Absolute Band Neutrophils 2.07 (H) 0.00 - 0.20 K/uL Absolute Metamyelocytes 1.03 (H) 0.00 K/uL Absolute Lymphocytes 1.21 1.00 - 3.90 K/uL Absolute Monocytes 0.52 0.00 - 0.80 K/uL Eosinophils, Absolute 0.52 (H) 0.00 - 0.50 K/uL RBC Morphology RBC [...] of rituximab on April 06, 2020 at [facility]. He then received days 1-5 of EPOCH from April 09-2019. He received cycle two without incident. 05/18/2020 He presents today to be cleared for cycle 3 of chemotherapy. He is tolerating this well ov erall with some expected side effects. He will continue his antiemetic regimen as well as M agic mouthwash for mucositis. He is cleared to proceed with cycle 3, day 0 of rituximab tod ay. He will be admitted tomorrow evening and begin cycle 3 of EPOCH on May 20, 2020. Pegfilgrastim will be given on day 6 at [facility]. I have ordered PET/CT to be done after cycle six to assess his response to treatment. He has mild chemotherapy-induced anemia which we will observe for now. He also has mild le ukocytosis likely secondary to his PEG filgrastim. He is afebrile and has no other symptoms of infection. He reports developing pain in a left lower molar with both cycles 1 and 2 of chemotherapy. This does not appear abscessed or actively infected at present but to there is an erosion i n the gumline along the tooth. I suspect he will require dental intervention soon given the repeat symptoms he is experiencing. I recommended he begin Augmentin twice daily. We will look into referring him to a dentist urgently. The patient was screened for COVID19 prior to entry to the clinic and screened negative. I advised strict social distancing and stay at home measures until the viral surge has abated. Plan At the end of today's discussion, the patient expressed understanding and willingness to pr oceed with the plan as outlined below: 1. Proceed with C3 rituximab today. 2. He will be admitted tomorrow to begin C3 DA-EPOCH beginning May 20, 2020. 3. Continue all supportive measures. 4. Begin Augmentin BID today. I will refer him to a dentist allowable by his insurance to b e seen urgently. 5. PET/CT after cycle 6. 6. Follow up at [facility] as scheduled, earlier if necessary. 7. The patient was counseled on the signs and symptoms of an ominous hematologic/oncologic process, and he knows to call if these were to occur. 8. The patient was counseled on the signs and symptoms that may indicate progression/recurr ence of his cancer, and he knows to call if this were to occur. All the patient's questions were answered to his satisfaction. The patient is to call with any questions or concerns. Marilou [place], MSN, DIRECTOR ENVIRONMENTAL, AOCNP [facility] Hematology and Oncology 05/17/2020 Portions of this chart may have been [...] e ncounter Miscellaneous Notes Addendum Note - Marilou [place] ARNP - 05/18/2020 9:15 AM PDT Addended by: MARILOU OVALLES on: 05/18/2020 02:54 PM Modules accepted: Orders documented in this encounter Plan of Treatment [...] [place] | | | | | | [id number] | | | | | | | | +--------+ + + + + | 06/29/ | Office | Oncology | Wilton Jeff MD | | 2019 | Visit | | [address] | | | | | | [place] | | | | | | [address] | | | | | | | | | | | | Marilou Ovalles, | | | | | | [place] [address] | | | | | [address] | | | | | | [place] [address] | | | | | | [phone] | | | | | | | | +--------+ + + + + | 06/29/ | Appointment | Infusion Therapy | Wilton Jeff MD | | | 2019 | | | [address] | | | | | | [place] | | | | | | [address] | | | | | | | | +--------+ + + + + | 07/14/ | Office | Otolaryngology | She Huang | | | 2019 | Visit | | DO Sophia Canela | | | | | | [facility] [address] | | | | | | [place] [address] | | | | | | [phone] | | | | | | | | +--------+ + + + + | 07/20/ | Appointment | Infusion Therapy | Wilton Jeff MD | | | 2019 | | | [address] | | | | | | [place] | | | | | | [address] | | | | | | | | +--------+ + + + + | 07/20/ | Office | Oncology | Wilton Jeff MD | | | 2019 | Visit | | [address] | | | | | | [place] | | | | | | [address] | | | | | | | | +--------+ + + + + | 07/20/ | Appointment | Infusion Therapy | Wilton Jeff MD | | | 2019 | | | [address] | | | | | | [place] | | | | | | [address] | | | | | | | | +--------+ + + + + | 08/17/ | Appointment | Infusion Therapy | Wilton Jeff MD | | | 2019 | | | [address] | | | | | | [place] | | | | | | [address] | | | | | | | | +--------+ + + + + | 08/17/ | Office | Oncology | Wilton Jeff MD | | | 2019 | Visit | | [address] | | | | | | [place] | | | | | | [address] | | | | | | | | +--------+ + + + + + + +--------+ + + | Name | Type | Priori | Associated Diagnoses | Order Schedule | | | | ty | | | + + +--------+ + + | Ambulatory referral | Outpatient | RAN | Diffuse large | Ordered: 05/18/2020 | | to Dentistry | Referral | | B-cell lymphoma of | | | | | | lymph nodes of | | | | | | multiple regions | | | | | | (HCC) Dental caries | | + + +--------+ + + documented as of this encounter Visit Diagnoses + + | Diagnosis | + + | Diffuse large B-cell lymphoma of lymph nodes of multiple regions (HCC) - Primary | + + | Dental caries Unspecified dental caries | + + documented in this encounter
--- OUTSIDE RECORDS SUMMARY | ~2020-06-23 | XMS | Encounter Summary ---
Demographics + + + | Address | [address] | | | [place] [address] | + + + | Home Phone [...] Team Providers + +------+ + | Care Upholstery Technician Name | Role | Phone | [...] | | Hodgkin | [address] | [place], [place] | | | | | lymphoma of | [place] | [address] | | | | | lymph nodes | [place], [place] | Phone: | | | | | of multiple | [address] | [phone] | | | | | regions | Phone: | Fax: | | | | | ([facility]) | [phone] | [phone] | | | | | Procedures | Fax: | | | | | | IR Placement | [phone] | | | | | | Port [...] | | Hodgkin | [address] | [place], [place] | | | | | lymphoma of | [place] | [address] | | | | | lymph nodes | [place], [place] | Phone: | | | | | of multiple | [address] | [phone] | | | | | regions | Phone: | Fax: | | | | | ([facility]) | | [phone] | | | | | Procedures | Fax: | | | | | | IR Placement | [phone] | | | | | | Port | | | +--------+--------+ + + + + Encounter Details +--------+ + + + + | Date | Type | Department | Care Team | Description | +--------+ + + + + | 04/01/ | Hospital | [facility] | Gary Alvarez, | 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 [address] [place] [address]. All righ ts reserved. This information is [...] Robyn last reviewed this educational content on 06/21/201619997908-6350 [employer]. [address] [place] [address], [place] [address]. All righ ts reserved. This information is not intended as a substitute for professional medical care. Always follow your healthcare professional's instructions. What is Coronavirus? The Novel Coronavirus 2019 (COVID-19) is a new virus strain that is spread mainly from pers ih-je-fdmmcr through respiratory droplets when an infected person [...] are not available, use an alcohol-based hand flight operations engineer with at least 60 % alcohol [...] and need to call 911, notify the lead operator that you have or think you [...] COVID-19 symptoms, residents in nursing facilities or snf communities or home health, or those who [...] or preparing your food. ? Use hand flight operations engineer if soap and water are not [...] with soap and water or in the promotions executive/washer. ? Call ahead before visiting your doctor. [...] MD - 03/31/2020 4:30 PM PDT . [facility] Hematology & Oncology Oncology Progress Note Patient [...] bidirectional video se ssion. Service was provided wnto-vj-xceh with the patient via interactive videoconferencing Coding will be based on Medical Decision Making. You have chosen to receive care through the use of telemedicine. Telemedicine enables [facility] care providers at different locations to provide [...] CERVICAL NODE; Surgeon: She Huang DO; Location: [facility] OR Family History Problem Relation Age [...] file Gets together: Not on file Attends synagogue service: Not on file Active member of [...] any questions or concerns. Wilton Jeff MD [facility] Hematology & Oncology 03/31/2020 Portions of this [...] [place] | | | | | | [address] | | | | | | | | +--------+ + + + + | 06/29/ | Office | Oncology | Wilton Jeff MD | | | 2019 | Visit | | [address] | | | | | | [place] | | | | | | [address] | | | | | | | | | | | | Marilou Mcmullen, | | | | | | ENROLLED NURSE [address] | | | | | [address] | | | | | | [place] [address] | | | | | | [phone] | | | | | | | | +--------+ + + + + | 06/29/ | Appointment | Infusion Therapy | Wilton Jeff MD | | | 2019 | | | [address] | | | | | | [place] | | | | | | [address] | | | | | | | | +--------+ + + + + | 07/14/ | Office | Otolaryngology | She Huang | | | 2019 | Visit | | DO Sophia Canela | | | | | | [address] | | | | | | [place] [address] | | | | | | [phone] | | | | | | | | +--------+ + + + + | 07/20/ | Appointment | Infusion Therapy | Wilton Jeff MD | | | 2019 | | | [address] | | | | | | [place] | | | | | | [address] | | | | | | | | +--------+ + + + + | 07/20/ | Office | Oncology | Wilton Jeff MD | | | 2019 | Visit | | [address] | | | | | | [place] | | | | | | [address] | | | | | | | | +--------+ + + + + | 07/20/ | Appointment | Infusion Therapy | Wilton Jeff MD | | | 2019 | | | [address] | | | | | | [place] | | | | | | [address] | | | | | | | | +--------+ + + + + | 08/17/ | Appointment | Infusion Therapy | Wilton Jeff MD | | | 2019 | | | [address] | | | | | | [place] | | | | | | [address] | | | | | | | | +--------+ + + + + | 08/17/ | Office | Oncology | Wilton Jeff MD | | | 2019 | Visit | | [address] | | | | | | [place] | | | | | | [address] | | | | | | | [...] limited | | | to bleeding, pneumothorax, infection,retirement vein occlusion, | | | allergic reaction [...] | Procedure Note | + + | [facility], [id number] - 04/01/2020 4:26 PM PDT | | [...] limited to bleeding, pneumothorax, infection, | | moth exterminator vein occlusion, allergic reaction and . | [...] vein. Using standard Seldinger technique, a 5 Bel[place]ian | | micropuncture sheath was position over [...] 0.06Comment: Testing | 0.00 - 0.10 | [facility] | | | Absolute | performed at [facility];[address] | LABORATORY | | | | [address];[place], [place] | | | | | | [address] | | | | + + + + + + + + | Specimen | + + | Blood | + + + + + + + | Performing | Address | City/State/Zipcode | Phone Number | | Organization | | | | + + + + + | [facility] | [address] | [place] [address] | [phone] | + + + + + Protime [...] | | | | | performed at [facility] | | | | | | [facility];[place], [place] | | | | | | [address] | | | | + + + + + + + + | Specimen | + + | Blood | + + + + + + + | Performing | Address | City/State/Zipcode | Phone Number | | Organization | | | | + + + + + | [facility] | [address] | [place] [address] | [phone] | + + + + + documented [...]
--- OUTSIDE RECORDS SUMMARY | ~2020-06-23 | XMS | Encounter Summary ---
Demographics + + + | Address | [address] | | | [place] [address] | + + + | Home Phone | | + + + | Preferred Language | Unknown | + + + | Marital Status | Single | + + + | Shinto Affiliation | Unknown | + + + [...] Team Providers + +------+ + | Care Mechanical Detailer Name | Role | Phone | + [...] Required | Practice | large B-cell | ORTHOTIST PROSTHETIST [address] | | | | | | lymphoma of | [address] | | | | | | lymph nodes | [address]VE | | | | | | of multiple | [place] | | | | | | regions | [place] [address] | | | | | | (HCC) | Phone: | | | | | | Dental | [phone] | | | | | | caries | Fax: | | | | | | | [phone] | | +--------+ + + + + + Encounter Details +--------+---------+ + + + | Date | Type | Department | Care Team | Description | +--------+---------+ + + + | 05/18/ | Office | [facility] | Wilton Jeff MD | 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 [facility] Hematology & Oncology Oncology Progress Note [...] of rituximab on April 06, 2020 at [facility]. He then received days 1-5 of [...] is day 0, rituximab g ivangie at [facility]. He reports developing mouth sores with cycles [...] NODE; Surgeon: She Huang DO; Location: [facility] Family History Problem Relation Age of Onset [...] Daily. 10 tablet 0 aluminum & magnesium mkwmhritf-yuzjakbwbds-yxmewtwtbiXHDDR-lidocaine Swish and spit 15 mLs every 4 hours as needed for Sore Throat. 600 mL 2 benzonatate (TESSALON) 100 mg capsule Take 100 mg by mouth 3 times daily as needed for Cough. mxpgeddajfqksnd-uinwqhpnclehfb-pyoxorun (DUKES MOUTHWASH) suspension Swish and spit 10 [...] of rituximab on April 06, 2020 at [facility]. He then received days 1-5 of [...] will be given on day 6 at [facility]. I have ordered PET/CT to be done [...] after cycle 6. 6. Follow up at [facility] as scheduled, earlier if necessary. 7. The [...] any questions or concerns. Maril[place], MSN, ORTHOTIST PROSTHETIST, AOCNP [facility] Hematology and Oncology 05/17/2020 Portions of this chart may have been created with voice recognition software. Occasional wr mak-word or "sound-alike" substitutions may have occurred, even after review, due to the inh erent limitations of voice recognition software. Please read the chart carefully and recogni ze, using context, where these substitutions have occurred. Personal communication is reques akabr for any clarifications. documented in this e [...] [place] | | | | | | [id number] | | | | | | | | +--------+ + + + + | 06/29/ | Office | Oncology | Wilton Jeff MD | | 2019 | Visit | | [address] | | | | | | [place] | | | | | | [address] | | | | | | | | | | | | Marilou Ovalles, | | | | | | [address] | | | | | | [address] | | | | | | [place] [address] | | | | | | [phone] | | | | | | | | +--------+ + + + + | 06/29/ | Appointment | Infusion Therapy | Wilton Jeff MD | | | 2019 | | | [address] | | | | | | [place] | | | | | | [address] | | | | | | | | +--------+ + + + + | 07/14/ | Office | Otolaryngology | She Huang | | | 2019 | Visit | | DO Sophia Canela | | | | | | [facility] [address] | | | | | | [place] [address] | | | | | | [phone] | | | | | | | | +--------+ + + + + | 07/20/ | Appointment | Infusion Therapy | Wilton Jeff MD | | | 2019 | | | [address] | | | | | | [place] | | | | | | [address] | | | | | | | | +--------+ + + + + | 07/20/ | Office | Oncology | Wilton Jeff MD | | | 2019 | Visit | | [address] | | | | | | [place] | | | | | | [address] | | | | | | | | +--------+ + + + + | 07/20/ | Appointment | Infusion Therapy | Wilton Jeff MD | | | 2019 | | | [address] | | | | | | [place] | | | | | | [address] | | | | | | | | +--------+ + + + + | 08/17/ | Appointment | Infusion Therapy | Wilton Jeff MD | | | 2019 | | | [address] | | | | | | [place] | | | | | | [address] | | | | | | | | +--------+ + + + + | 08/17/ | Office | Oncology | Wilton Jeff MD | | | 2019 | Visit | | [address] | | | | | | [place] | | | | | | [address] | | | | | | | [...]
--- OUTSIDE RECORDS SUMMARY | ~2020-06-23 | XMS | Encounter Summary ---
Demographics + + + | Address | [address] | | | [place] [address] | + + + | Home Phone [...] Team Providers + +------+ + | Care Cement Mixer Driver Name | Role | Phone | + +------+ + | Myrna Mejia MD | PCP | | + +------+ + Encounter Details +--------+ + + + + | Date | Type | Department | Care Team | Description | +--------+ + + + + | 04/02/ | Orders Only | [facility] | Wilton Jeff MD | | | 2020 | | HEMATOLOGY AND | [address] | | | | | ONCOLOGY [address] | [place] | | | | | [address] | [address] | | | | | [place] | | | | | | [address] | | | | | | [phone] | | | +--------+ + + + [...] [place] | | | | | | [address] | | | | | | | | +--------+ + + + + | 06/29/ | Office | Oncology | Wilton Jeff MD | | | 2019 | Visit | | [address] | | | | | | [place] | | | | | | [address] | | | | | | | | | | | | Marilou Mcmullen, | | | | | | CONVEYOR MAINTENANCE MECHANIC [address] | | | | | | [address] | | | | | | [place] [address] | | | | | | [phone] | | | | | | | | +--------+ + + + + | 06/29/ | Appointment | Infusion Therapy | Wilton Jeff MD | | | 2019 | | | [address] | | | | | | [place] | | | | | | [address] | | | | | | | | +--------+ + + + + | 07/14/ | Office | Otolaryngology | She Huang | | | 2019 | Visit | | DO Sophia Canela | | | | | | [place] [address] | | | | | | [place] [address] | | | | | | [phone] | | | | | | | | +--------+ + + + + | 07/20/ | Appointment | Infusion Therapy | Wilton Jeff MD | | | 2019 | | | [address] | | | | | | [place] | | | | | | [address] | | | | | | | | +--------+ + + + + | 07/20/ | Office | Oncology | Wilton Jeff MD | | | 2019 | Visit | | [address] | | | | | | [place] | | | | | | [address] | | | | | | | | +--------+ + + + + | 07/20/ | Appointment | Infusion Therapy | Wilton Jeff MD | | | 2019 | | | [address] | | | | | | [place] | | | | | | [address] | | | | | | | | +--------+ + + + + | 08/17/ | Appointment | Infusion Therapy | Wilton Jeff MD | | | 2019 | | | [address] | | | | | | [place] | | | | | | [address] | | | | | | | | +--------+ + + + + | 08/17/ | Office | Oncology | Wilton Jeff MD | | | 2019 | Visit | | [address] | | | | | | [place] | | | | | | [address] | | | | | | | [...] | | | Absolute | Performed at [facility], [address] | [address] | LAB | | | | [address] | | [facility] | | | | [address], [place] | | LABORATORY | | | | [address] | | | | + + + + + + + + | Specimen | + + | | + + + + + + + | Performing | Address | City/State/Zipcode | Phone Number | | Organization | | | | + + + + + | REFERENCE LAB | [address] [place] [address] | [place] | [phone] | | [facility] | Blvd[address] | [address] | | | LABORATORY | | | | + + + + + | REFERENCE LAB | [address] [place] [address] | [place] | | | [facility] | Blvd[address] | [address] | | | LABORATORY | | | | + + + + + documented in this encounter Visit Diagnoses Not on filedocumented in this encounter"
--- OUTSIDE RECORDS SUMMARY | ~2020-06-23 | XMS | Encounter Summary ---
Demographics + + + | Address | [address] | | | [place] [address] | + + + | Home Phone | | + + + | Preferred Language | Unknown | + + + | Marital Status | Single | + + + | Yazidism Affiliation | Unknown | + + + [...] Team Providers + +------+ + | Care Meat Cutter Apprentice Name | Role | Phone | + +------+ + | Myrna Mejia MD | PCP | | + +------+ + Encounter Details +--------+ + + + + | Date | Type | Department | Care Team | Description | +--------+ + + + + | 04/03/ | Orders Only | [facility] | Wilton Jeff MD | | | 2020 | | HEMATOLOGY AND | [address] | | | | | ONCOLOGY [address] | [place] | | | | | [address] | [address] | | | | | [place] | | | | | | [address] | | | | | | [phone] | | | +--------+ + + + [...] [place] | | | | | | [address] | | | | | | | | +--------+ + + + + | 06/29/ | Office | Oncology | Wilton Jeff MD | | | 2019 | Visit | | [address] | | | | | | [place] | | | | | | [address] | | | | | | | | | | | | Marilou Mcmullen, | | | | | | MEAT CUTTER APPRENTICE [address] | | | | | | [address] | | | | | | [place] [address] | | | | | | [phone] | | | | | | | | +--------+ + + + + | 06/29/ | Appointment | Infusion Therapy | Wilton Jeff MD | | | 2019 | | | [address] | | | | | | [place] | | | | | | [address] | | | | | | | | +--------+ + + + + | 07/14/ | Office | Otolaryngology | She Huang | | | 2019 | Visit | | DO Sophia Canela | | | | | | [place] [address] | | | | | | [place] [address] | | | | | | [phone] | | | | | | | | +--------+ + + + + | 07/20/ | Appointment | Infusion Therapy | Wilton Jeff MD | | | 2019 | | | [address] | | | | | | [place] | | | | | | [address] | | | | | | | | +--------+ + + + + | 07/20/ | Office | Oncology | Wilton Jeff MD | | | 2019 | Visit | | [address] | | | | | | [place] | | | | | | [address] | | | | | | | | +--------+ + + + + | 07/20/ | Appointment | Infusion Therapy | Wilton Jeff MD | | | 2019 | | | [address] | | | | | | [place] | | | | | | [address] | | | | | | | | +--------+ + + + + | 08/17/ | Appointment | Infusion Therapy | Wilton Jeff MD | | | 2019 | | | [address] | | | | | | [place] | | | | | | [address] | | | | | | | | +--------+ + + + + | 08/17/ | Office | Oncology | Wilton Jeff MD | | | 2020 | Visit | | [address] | | | | | | [place] | | | | | | [address] | | | | | | | | +--------+ + + + + documented as of this encounter Visit Diagnoses Not on filedocumented in this encounter"
--- OUTSIDE RECORDS SUMMARY | ~2020-06-23 | XMS | Encounter Summary ---
Demographics + + + | Address | [address] | | | [place] [address] | + + + | Home Phone [...] + +------+ + | Care Director Of Math Name | Role | Phone | + [...] | | | | of multiple | [place], | [address] | | | | | regions | [place] [address] | [address] | | | | | (HCC) | Phone: | [place] | | | | | Procedures | [phone] | [address] | | | | | [place] [employer] | Fax: | Phone: | | | | | | [phone] | [phone] | | | | | RECOMBINANT, | | Fax: | | | | | 1 MG PORT | | [phone] | | | | | FLUSH | | | +--------+--------+ + + + + Encounter Details +--------+ + + + + | Date | Type | Department | Care Team | Description | +--------+ + + + + | 04/06/ | Hospital | [facility] | Wilton Jeff MD | 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 screening technician nique maintained throughout procedure. Saline locked, [...] [place] | | | | | | [id number] | | | | | | | | +--------+ + + + + | 06/29/ | Office | Oncology | Wilton Jeff MD | | 2019 | Visit | | [address] | | | | | | [place] | | | | | | [address] | | | | | | | | | | | | Marilou Mcmullen, | | | | | | [address] | | | | | | [address] | | | | | | [place] [address] | | | | | | [phone] | | | | | | | | +--------+ + + + + | 06/29/ | Appointment | Infusion Therapy | Wilton Jeff MD | | | 2019 | | | [address] | | | | | | [place] | | | | | | [address] | | | | | | | | +--------+ + + + + | 07/14/ | Office | Otolaryngology | She Huang | | 2019 | Visit | | DO Sophia Canela | | | | | | [address] | | | | | | [place] [address] | | | | | | [phone] | | | | | | | | +--------+ + + + + | 07/20/ | Appointment | Infusion Therapy | Wilton Jeff MD | | | 2019 | | | [address] | | | | | | [place] | | | | | | [address] | | | | | | | | +--------+ + + + + | 07/20/ | Office | Oncology | Wilton Jeff MD | | | 2019 | Visit | | [address] | | | | | | [place] | | | | | | [address] | | | | | | | | +--------+ + + + + | 07/20/ | Appointment | Infusion Therapy | Wilton Jeff MD | | | 2019 | | | [address] | | | | | | [place] | | | | | | [address] | | | | | | | | +--------+ + + + + | 08/17/ | Appointment | Infusion Therapy | Wilton Jeff MD | | | 2019 | | | [address] | | | | | | [place] | | | | | | [address] | | | | | | | | +--------+ + + + + | 08/17/ | Office | Oncology | Wilton Jeff MD | | | 2019 | Visit | | [address] | | | | | | [place] | | | | | | [address] | | | | | | | [...] in this encounter Results CBC with Differential (04/06/2020 [...] | | LABORATORY | | | | [address] | | | | + + + + + + + + | Specimen | + + | Blood | + + + + + + + | Performing | Address | City/State/Zipcode | Phone Number | | Organization | | | | + + + + + | REFERENCE LAB | [address] [facility] | [place] | [phone] | | [facility] | Bl[address] | [address] | | | LABORATORY | | | | + + + + + | REFERENCE LAB | [address] | [place] | | | [facility] | Bl[address] | [address] | | | LABORATORY | | | [...] [place] | | | | | | [address] | | | | + + + + + + + + | Specimen | + + | Blood | + + + + + + + | Performing | Address | City/State/Zipcode | Phone Number | | Organization | | | | + + + + + | REFERENCE LAB | [address] [place] [address] | [place], [place] | [phone] | | [facility] | Blvd[address] | [address] | | | LABORATORY | | | | + + + + + | REFERENCE LAB | [address] [place] [address] | [place], [place] | | | [facility] | Blvd[address] | [address] | | | LABORATORY | | | [...] | | LABORATORY | | | | [address] | | | | + + + + + + + + | Specimen | + + | Blood | + + + + + + + | Performing | Address | City/State/Zipcode | Phone Number | | Organization | | | | + + + + + | REFERENCE LAB | [address] [place] [address] | [place] | [phone] | | [facility] | Bl[address] | [address] | | | LABORATORY | | | | + + + + + | REFERENCE LAB | [address] [place] [address] | [place] | | | [facility] | Blvd[address] | [address] | | | LABORATORY | | | [...] REFERENCE | | | | performed at [facility];[address] | | LAB | | | | [place] | | [facility] | | | | [address];[place] [address] | | LABORATORY | | + + + + + + + + | Specimen | + + | Blood | + + + + + + + | Performing | Address | City/State/Zipcode | Phone Number | | Organization | | | | + + + + + | REFERENCE LAB | [address] [facility] | [place] | [phone] | | [facility] | [address] | [address] | | | LABORATORY | | | | + + + + + | REFERENCE LAB | [address] [facility] | [place] | | | [facility] | Bl[address] | [address] | | | LABORATORY | | | [...] chloride 0.9% flush 10 | Given | 04/06/20 | 10 mLs | | | | mL 10 mL, Intracatheter, PRN, | | 20 7:53 | | | | | Line Care, Starting 04/06/20 at | | AM PDT | | | | | 0752 | | | | | | + +--------+ +--------+------+------+ +---+---+ | | | +---+---+ documented in this encounter"
--- OUTSIDE RECORDS SUMMARY | ~2020-06-23 | XMS | Encounter Summary ---
Demographics + + + | Address | [address] | | | [place] [address] | + + + | Home Phone [...] Author + + + | Author | [facility] | | | and [place] | + + + | Organization | [facility] | | | [...] Team Providers + +------+ + | Care Polytechnic Teacher Name | Role | Phone | + +------+ + | Myrna Mejia MD | PCP | | + +------+ + Encounter Details +--------+ + + + + | Date | Type | Department | Care Team | Description | +--------+ + + + + | 04/06/ | Orders Only | [facility] | Karen Schaefer, | 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 | | | | ONCOLOGY INFUSIONS | | lymph nodes of | | | | [address] | | multiple regions | | | | [place] | | (HCC) (Primary Dx) | | | | [address] | | | | | | [phone] | | | +--------+ + + + [...] [place] | | | | | | [address] | | | | | | | | +--------+ + + + + | 06/29/ | Office | Oncology | Wilton Jeff MD | | | 2019 | Visit | | [address] | | | | | | [place] | | | | | | [address] | | | | | | | | | | | | Marilou Mcmullen, | | | | | | SYSTEMS PROGRAMMER ANALYST [address] | | | | | [address] | | | | | | [place] [address] | | | | | | [phone] | | | | | | | | +--------+ + + + + | 06/29/ | Appointment | Infusion Therapy | Wilton Jeff MD | | | 2019 | | | [address] | | | | | | [place] | | | | | | [address] | | | | | | | | +--------+ + + + + | 07/14/ | Office | Otolaryngology | She Huang | | | 2019 | Visit | | DO Sophia Canela | | | | | | [address] | | | | | | [place] [address] | | | | | | [phone] | | | | | | | | +--------+ + + + + | 07/20/ | Appointment | Infusion Therapy | Wilton Jeff MD | | | 2019 | | | [address] | | | | | | [place] | | | | | | [address] | | | | | | | | +--------+ + + + + | 07/20/ | Office | Oncology | Wilton Jeff MD | | | 2019 | Visit | | [address] | | | | | | [place] | | | | | | [address] | | | | | | | | +--------+ + + + + | 07/20/ | Appointment | Infusion Therapy | Wilton Jeff MD | | | 2019 | | | [address] | | | | | | [place] | | | | | | [address] | | | | | | | | +--------+ + + + + | 08/17/ | Appointment | Infusion Therapy | Wilton Jeff MD | | | 2019 | | | [address] | | | | | | [place] | | | | | | [address] | | | | | | | | +--------+ + + + + | 08/17/ | Office | Oncology | Wilton Jeff MD | | | 2019 | Visit | | [address] | | | | | | [place] | | | | | | [address] | | | | | | | [...] | | | | | Performed at [facility], [address] | | | | | [address] | | | | | | [address], [place] | | | | | | [address] | | | | + + + + + + + + | Specimen | + + | Blood | + + + + + + + | Performing | Address | City/State/Zipcode | Phone Number | | Organization | | | | + + + + + | REFERENCE LAB | [address] [place] [address] | [place], [place] | [phone] | | [facility] | Bl[address] | [address] | | | LABORATORY | | | | + + + + + | REFERENCE LAB | [address] [place] [address] | [place], [place] | | | [facility] | Blvd. | [address] | | | LABORATORY | | | [...] [place] | | | | | | [address] | | | | | | | [...] [address] | [place] | [phone] | | [facility] | Blvd. | [address] | | | LABORATORY | | | | + + + + + | REFERENCE LAB | [address] | [place] | | | [facility] | Blvd. | [address] | | | LABORATORY | | | [...] | | | | | | [address], [place] | | | | | | [address] | | | | + + + + + + + + | Specimen | + + | Blood | + + + + + + + | Performing | Address | City/State/Zipcode | Phone Number | | Organization | | | | + + + + + | REFERENCE LAB | [address] | [place] | [phone] | | [facility] | Bl[address]. | [address] | | | LABORATORY | | | | + + + + + | REFERENCE LAB | [address] | [place] | | | [facility] | Blvd. | [address] | | | LABORATORY | | | [...] [facility] | | | | Blvd;[place] [address] | | LABORATORY | | + + + + + + | Red Blood | 3.86 (L)Comment: Testing | 4.20 - 5.70 | REFERENCE | | | Cells | performed at [facility];[address] | M/uL | LAB | | | | [place] | | [facility] | | | | Blvd;[place] [address] | | LABORATORY | | + + + + + + | Hemoglobin | 11.2 (L)Comment: Testing | 13.2 - 17.0 | REFERENCE | | | | performed at [facility] | g/dL | LAB | | | | [place] | | [facility] | | | | Blvd;[place] [address] | | LABORATORY | | + + + + + + | Hematocrit | 35.0 (L)Comment: Testing | 39.0 - 50.0 % | REFERENCE | | | | performed at [facility];[address] | | LAB | | | | [place] | | [facility] | | | | Blvd;[place] [address] | | LABORATORY | | + + + + + + | MCV | 90.7Comment: Testing | 80.0 - 100.0 fl | REFERENCE | | | | performed at [facility];[address] | | LAB | | | | [place] | | [facility] | | | | Blvd;[place] [address] | | LABORATORY | | + + + + + + | MCH | 29.0Comment: Testing | 27.0 - 34.0 pg | REFERENCE | | | | performed at [facility];[address] | | LAB | | | | [place] | | [facility] | | | | Blvd;[place] [address] | | LABORATORY | | + + + + + + | MCHC | 32.0Comment: Testing | 32.0 - 35.5 | REFERENCE | | | | performed at [facility];[address] | g/dL | LAB | | | | [place] | | [facility] | | | | Blvd;[place] [address] | | LABORATORY | | + + + + + + | RDW-SD | 61.4 (H)Comment: Testing | 37 - 53 fl | REFERENCE | | | | performed at [facility];[address] | | LAB | | | | [place] | | [facility] | | | | Blvd;[place] [address] | | LABORATORY | | + + + + + + | Platelet | 224Comment: Testing | 150 - 400 K/uL | REFERENCE | | | Count | performed at [facility];[address] | | LAB | | | | [place] | | [facility] | | | | Blvd;[place] [address] | | LABORATORY | | + + + + + + | MPV | 9.9Comment: NO NORMAL | fl | REFERENCE | | | | RANGE ESTABLISHEDTesting | | LAB | | | | performed at [facility];[address] | | [facility] | | | | [place] | | LABORATORY | | | | Blvd;[place] [address] | | | | | | | [...] | | Testing Performed at | | [facility] | | | | [facility], [address] [facility] | | LABORATORY | | | | [address], | | | | | | [place] [address] | | | | + + + + + + + + | Specimen | + + | Blood | + + + + + + + | Performing | Address | City/State/Zipcode | Phone Number | | Organization | | | | + + + + + | REFERENCE LAB | [address] [place] [address] | [place] | [phone] | | [facility] | Blvd. | [address] | | | LABORATORY | | | | + + + + + | REFERENCE LAB | [address] [place] [address] | [place] | | | [facility] | Blvd. | [address] | | | LABORATORY | | | [...] | | | | | | MDRD IDAK traceable | | | | | | equation.Testing | | | | | | Performed at [facility], [address] | | | | | | [address] | | | | | | [address], [place] | | | | | | [address] | | | | + + + + + + + + | Specimen | + + | Blood | + + + + + + + | Performing | Address | City/State/Zipcode | Phone Number | | Organization | | | | + + + + + | REFERENCE LAB | [address] [facility] | [place], [place] | [phone] | | [facility] | Blvd[address] | [address] | | | LABORATORY | | | | + + + + + | REFERENCE LAB | [address] [facility] | [place], [place] | | | [facility] | Blvd. | [address] | | | LABORATORY | | | [...] | | Testing Performed at | | [facility] | | | | [facility], [address] [facility] | | LABORATORY | | | | Ave, [address], | | | | | | [place] [address] | | | | + + + + + + + + | Specimen | + + | Blood | + + + + + + + | Performing | Address | City/State/Zipcode | Phone Number | | Organization | | | | + + + + + | REFERENCE LAB | [address] [place] [address] | [place], [place] | [phone] | | [facility] | Bl[address] | [address] | | | LABORATORY | | | | + + + + + | REFERENCE LAB | [address] [place] [address] | [place], [place] | | | [facility] | Blvd. | [address] | | | LABORATORY | | | [...] [place] | | | | | | [address] | | | | + + + + + + + + | Specimen | + + | Blood | + + + + + + + | Performing | Address | City/State/Zipcode | Phone Number | | Organization | | | | + + + + + | REFERENCE LAB | [address] [facility] | [place] | [phone] | | [facility] | Bl[address] | [address] | | | LABORATORY | | | | + + + + + | REFERENCE LAB | [address] | [place] | | | [facility] | Blvd. | [address] | | | LABORATORY | | | [...] | | Testing Performed at | | [facility] | | | | [address], [address] | | LABORATORY | | | | [address], | | | | | | [place] [address] | | | | + + + + + + + + | Specimen | + + | Blood | + + + + + + + | Performing | Address | City/State/Zipcode | Phone Number | | Organization | | | | + + + + + | REFERENCE LAB | [address] [facility] | [place], [place] | [phone] | | [facility] | Bl[address] | [address] | | | LABORATORY | | | | + + + + + | REFERENCE LAB | [address] [facility] | [place], [place] | | | [facility] | Blvd[address] 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
--- OUTSIDE RECORDS SUMMARY | ~2020-06-23 | XMS | Encounter Summary ---
Demographics + + + | Address | [address] | | | [place] [address] | + + + | Home Phone [...] Organization | [facility] | | | and [place] | + [...] Team Providers + +------+ + | Care Stage Set Designer Name | Role | Phone | [...] Pending | | Radiology | Diagnoses | Tomer, | [facility] Nuclear | | Review | | | Other | MD Wilton | Medicine | | | | | classical | [address] | [address] | | | | | Hodgkin | [address] | | | | | lymphoma of | AVE | [place], [place] | | | | | lymph nodes | [place], | [address] | | | | | of multiple | [place] [address] | Phone: | | | | | regions | Phone: | [phone] | | | | | ([facility]) | [phone] | Fax: | | | | | Procedures | Fax: | [phone] | | | | | [place] Cardiac | [phone] | | | | | | MUGA Scan | | | + +--------+ + + + + Reason for Visit Diagnostic/Screening (Emergency) + +--------+ + + + + | Status | Reason | Specialty | Diagnoses / | Referred By | Referred To | | | | | Procedures | Contact | Contact | + +--------+ + + + + | Pending | | Radiology | Diagnoses | Jeff, | c Nuclear | | Review | | | Other | MD Wilton | Medicine | | | | | classical | [address] | [address] | | | | | Hodgkin | [address] | [address] | | | | | lymphoma of | AVE | [place], [place] | | | | | lymph nodes | [place], | [address] | | | | | of multiple | [place] [address] | Phone: | | | | | regions | Phone: | [phone] | | | | | ([facility]) | [phone] | Fax: | | | | | Procedures | Fax: | [phone] | | | | | [place] Cardiac | [phone] | | | | | | MUGA Scan | | | + +--------+ + + + + Encounter Details +--------+ + + + + | Date | Type | Department | Care Team | Description | +--------+ + + + + | 03/30/ | Hospital | [facility] | Wilton Jeff MD | 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 | [facility] | [address] | Hodgkin lymphoma of | | | | NUCLEAR MEDICINE | [place] | lymph nodes of | | | | [address] | [address] | multiple regions | | | | [place], [place] | | ([facility]) | | | | [address] | | | | | | [phone] | | | +--------+ + + + [...] [place] | | | | | | [address] | | | | | | | | +--------+ + + + + | 06/29/ | Office | Oncology | Wilton Jeff MD | | | 2019 | Visit | | [address] | | | | | | [place] | | | | | | [address] | | | | | | | | | | | | Marilou Mcmullen, | | | | | | DATABASES SOFTWARE CONSULTANT [address] | | | | | | [address] | | | | | | [place] [address] | | | | | | [phone] | | | | | | | | +--------+ + + + + | 06/29/ | Appointment | Infusion Therapy | Wilton Jeff MD | | | 2019 | | | [address] | | | | | | [place] | | | | | | [address] | | | | | | | | +--------+ + + + + | 07/14/ | Office | Otolaryngology | She Huang | | | 2019 | Visit | | DO Sophia Canela | | | | | | [address] [place] [address] | | | | | | [place] [address] | | | | | | [phone] | | | | | | | | +--------+ + + + + | 07/20/ | Appointment | Infusion Therapy | Wilton Jeff MD | | | 2019 | | | [address] | | | | | | [place] | | | | | | [address] | | | | | | | | +--------+ + + + + | 07/20/ | Office | Oncology | Wilton Jeff MD | | | 2019 | Visit | | [address] | | | | | | [place] | | | | | | [address] | | | | | | | | +--------+ + + + + | 07/20/ | Appointment | Infusion Therapy | Wilton Jeff MD | | | 2019 | | | [address] | | | | | | [place] | | | | | | [address] | | | | | | | | +--------+ + + + + | 08/17/ | Appointment | Infusion Therapy | Wilton Jeff MD | | | 2019 | | | [address] | | | | | | [place] | | | | | | [address] | | | | | | | | +--------+ + + + + | 08/17/ | Office | Oncology | Wilton Jeff MD | | | 2019 | Visit | | [address] | | | | | | [place] | | | | | | [address] | | | | | | | [...] + + documented in this encounter Results [place] Cardiac MUGA Scan [...] Procedure Note | + + | Stan, [id number] - 03/30/2020 12:10 PM PDT | | [...] | | + +--------+ + +------+------+ | heparin 100 units/mL flush | Given | 03/30/20 | 45 Units | | | | injection 500 Units 500 Units (5 | | 20 10:15 | | | | | mL), Intracatheter, ONCE, Mon | | AM PDT | | | | | 03/30/20 at 1015, For 1 dose, | | | | | | | Nuclear Medicine | | | | | | + +--------+ + +------+------+ +---+---+ | | | +---+---+ + +-------+ + +---+---+ | technetium TC-99M labeled red | Given | 03/30/20 | 18.7 | | | | blood cells (ULTRATAG) injection | | 20 10:15 | millicur | | | | 20 millicurie 20 millicurie, | | AM PDT | ies | | | | Intravenous, ONCE PRN, Other, | | | | | | | Starting 03/30/20 at 0950, For | | | | | | | 1 dose, Nuclear Medicine | | | | | | + +-------+ + +---+---+ +---+---+ | | | +---+---+ documented in this encounter"
--- OUTSIDE RECORDS SUMMARY | ~2020-06-23 | XMS | Encounter Summary ---
Demographics + + + | Address | [address] | | | [place] [address] | + + + | Home Phone [...] Author + + + | Author | [facility] | | | and [place] | + + + | Organization | [facility] | | [...] Team Providers + +------+ + | Care Heel Trimmer Name | Role | Phone | + [...] | | | | regions | [place] [address] | [address] | | | | | (HCC) | Phone: | [place] | | | | | Procedures | [phone] | [address] | | | | | [place] ALTEPLASE | Fax: | Phone: | | | | | | [phone] | [phone] | | | | | RECOMBINANT, | | Fax: | | | | | 1 MG PORT | | [phone] | | | | | FLUSH | | | +--------+--------+ + + + + Encounter Details +--------+ + + + + | Date | Type | Department | Care Team | Description | +--------+ + + + + | 04/06/ | Hospital | [facility] | Wilton Jeff MD | Mediastinal large | | 2020 | Encounter | INFUSION SUPPORT | [address] | B-cell lymphoma of | | | | SERVICES [address] | [place], [place] | lymph nodes of | | | | [address] [place] | [address] | multiple regions | | | | [address] [place], [place] | | ([facility]) (Primary Dx) | | | | [address] | [place] | | | | | [phone] | A RN | | +--------+ + [...] | | | | | | | ([facility]) | | | | | | [...] 7:30 AM PDTPort accessed for lab draw. environmental technology professor nique maintained throughout procedure. Saline locked, left [...] [place] | | | | | | [id number] | | | | | | | | +--------+ + + + + | 06/29/ | Office | Oncology | Wilton Jeff MD | | 2019 | Visit | | [address] | | | | | | [place] | | | | | | [address] | | | | | | | | | | | | Marilou Mcmullen, | | | | | | KOLE [address] | | | | | | [address] | | | | | | [place] [address] | | | | | | [phone] | | | | | | | | +--------+ + + + + | 06/29/ | Appointment | Infusion Therapy | Wilton Jeff MD | | | 2019 | | | [address] | | | | | | [place] | | | | | | [address] | | | | | | | | +--------+ + + + + | 07/14/ | Office | Otolaryngology | She Huang | | 2019 | Visit | | DO Sophia Canela | | | | | | [address] | | | | | | [place] [address] | | | | | | [phone] | | | | | | | | +--------+ + + + + | 07/20/ | Appointment | Infusion Therapy | Wilton Jeff MD | | | 2019 | | | [address] | | | | | | [place] | | | | | | [address] | | | | | | | | +--------+ + + + + | 07/20/ | Office | Oncology | Wliton Jeff MD | | | 2019 | Visit | | [address] | | | | | | [place] | | | | | | [address] | | | | | | | | +--------+ + + + + | 07/20/ | Appointment | Infusion Therapy | Wilton Jeff MD | | | 2019 | | | [address] | | | | | | [place] | | | | | | [address] | | | | | | | | +--------+ + + + + | 08/17/ | Appointment | Infusion Therapy | Wilton Jeff MD | | | 2019 | | | [address] | | | | | | [place] | | | | | | [address] | | | | | | | | +--------+ + + + + | 08/17/ | Office | Oncology | Wilton Jeff MD | | | 2019 | Visit | | [address] | | | | | | [place] | | | | | | [...] | | LABORATORY | | | | [address] | | | | + + + + + + + + | Specimen | + + | Blood | + + + + + + + | Performing | Address | City/State/Zipcode | Phone Number | | Organization | | | | + + + + + | REFERENCE LAB | [address] [facility] | [place] | [phone] | | [facility] | Bl[address] | [address] | | | LABORATORY | | | | + + + + + | REFERENCE LAB | [address] | [place] | | | [facility] | Blvd[address] | [address] | | | LABORATORY | | | [...] [place] | | | | | | [address] | | | | + + + + + + + + | Specimen | + + | Blood | + + + + + + + | Performing | Address | City/State/Zipcode | Phone Number | | Organization | | | | + + + + + | REFERENCE LAB | [address] [place] [address] | [place], [place] | [phone] | | [facility] | Blvd[address] | [address] | | | LABORATORY | | | | + + + + + | REFERENCE LAB | [address] [place] [address] | [place], [place] | | | [facility] | Blvd. | [address] | | | LABORATORY | | | [...] | | LABORATORY | | | | [address] | | | | + + + + + + + + | Specimen | + + | Blood | + + + + + + + | Performing | Address | City/State/Zipcode | Phone Number | | Organization | | | | + + + + + | REFERENCE LAB | [address] [place] [address] | [place] | [phone] | | [facility] | Blvd[address] | [address] | | | LABORATORY | | | | + + + + + | REFERENCE LAB | [address] [place] [address] | [place] | | | [facility] | Blvd. | [address] | | | LABORATORY | | | [...] REFERENCE | | | | performed at [facility];[address] | | LAB | | | | [place] | | [facility] | | | | Blvd;[place] [address] | | LABORATORY | | + + + + + + + + | Specimen | + + | Blood | + + + + + + + | Performing | Address | City/State/Zipcode | Phone Number | | Organization | | | | + + + + + | REFERENCE LAB | [address] [facility] | [place] | [phone] | | [facility] | Bl[address] | [address] | | | LABORATORY | | | | + + + + + | REFERENCE LAB | [address] [facility] | [place] | | | [facility] | Bl[address] | [address] | | | LABORATORY | | | [...]
--- OUTSIDE RECORDS SUMMARY | ~2020-06-23 | XMS | Encounter Summary ---
Demographics + + + | Address | [address] | | | [place] [address] | + + + | Home Phone [...] Team Providers + +------+ + | Care Preflight Mechanic Name | Role | Phone | + +------+ + | Myrna Mejia MD | PCP | | + +------+ + Encounter Details +--------+ + + + + | Date | Type | Department | Care Team | Description | +--------+ + + + + | 06/08/ | Orders Only | [facility] | Wilton Jeff MD | | | 2020 | | HEMATOLOGY AND | [address] | | | | | ONCOLOGY [address] | [place] | | | | | [address] | [address] | | | | | [place] | | | | | | [address] | | | | | | [phone] | | | +--------+ + + + [...] [place] | | | | | | [address] | | | | | | | | +--------+ + + + + | 06/29/ | Office | Oncology | Wilton Jeff MD | | | 2019 | Visit | | [address] | | | | | | [place] | | | | | | [address] | | | | | | | | | | | | Marilou Mcmullen, | | | | | | INSURANCE SALES PRODUCER [address] | | | | | | [address] | | | | | | [place] [address] | | | | | | [phone] | | | | | | | | +--------+ + + + + | 06/29/ | Appointment | Infusion Therapy | Wilton Jeff MD | | | 2019 | | | [address] | | | | | | [place] | | | | | | [address] | | | | | | | | +--------+ + + + + | 07/14/ | Office | Otolaryngology | She Huang | | | 2019 | Visit | | DO Sophia Canela | | | | | | [place] [address] | | | | | | [place] [address] | | | | | | [phone] | | | | | | | | +--------+ + + + + | 07/20/ | Appointment | Infusion Therapy | Wilton Jeff MD | | | 2019 | | | [address] | | | | | | [place] | | | | | | [address] | | | | | | | | +--------+ + + + + | 07/20/ | Office | Oncology | Wilton Jeff MD | | | 2019 | Visit | | [address] | | | | | | [place] | | | | | | [address] | | | | | | | | +--------+ + + + + | 07/20/ | Appointment | Infusion Therapy | Wilton Jeff MD | | | 2019 | | | [address] | | | | | | [place] | | | | | | [address] | | | | | | | | +--------+ + + + + | 08/17/ | Appointment | Infusion Therapy | Wilton Jeff MD | | | 2019 | | | [address] | | | | | | [place] | | | | | | [address] | | | | | | | | +--------+ + + + + | 08/17/ | Office | Oncology | Wilton Jeff MD | | | 2020 | Visit | | [address] | | | | | | [place] | | | | | | [address] | | | | | | | | +--------+ + + + + documented as of this encounter Visit Diagnoses Not on filedocumented in this encounter"
--- OUTSIDE RECORDS SUMMARY | ~2020-06-23 | XMS | Clinical Summary ---
Demographics + + + | Address | [address] | | | [place] [address] | + + + | Home Phone [...] Team Providers + +------+ + | Care Support Coordinator Name | Role | Phone [...] | | 20 | | | | [id number] | Throat. | | | | | [...] automatically from request for surgery | | [id number] | + + + + + | Supraclavicular adenopathy | 03/18/2020 | + + + + + | Overview: Added automatically from request for surgery | | [id number] | + + Resolved Problems + + [...] 06/23/ | Telephone | Infusion Therapy | Rios, Lizbet | Triage | | 2020 | | | [facility] | | +--------+ + + + + [...] | antineoplastic | | | | | MD | chemotherapy | | 06/15/ | | [...] B-cell | | 2020 | Visit | | | lymphoma of lymph | | | | | | nodes of multiple | | | | | | regions (HCC) | | | | | | (Primary Dx) | +--------+ + + + + | 06/08/ | Hospital | Infusion Therapy | Wilton Jeff MD | Mediastinal large | | 2020 | Encounter | | Monica Pulido, | [...] Therapy | Monica Pulido, | | | 2019 | | | RN | | +--------+ + + + + | 06/04/ | Telephone | Otolaryngology | She Huang | Follow-up | 2019 | | | DO Rola | | +--------+ + + + + | 05/21/ | Telephone | Infusion Therapy | Tina Cadet RN | Other (Coordination | | 2019 | | | | of Care) | +--------+ + + + + | 05/19/ | Hospital | Internal Medicine | Addie Whiteside MD | Admission for | 2019 - | Encounter | | [...] Jeff MD | Diffuse large B-cell | 2019 | Encounter | | Felipa [...] Jeff MD | Medication Question | | 2019 | | | | | +--------+ + + + + | 05/05/ | Telephone | Oncology | Wilton Jeff MD | Other ([facility] ) | | 2020 | | | | | +--------+ + + + + | 04/29/ | Hospital | Internal Medicine | Addie Whiteside MD | 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 | | Jeremie Finch MD | lymphoma of lymph | | | | | Alan Davis MD | nodes of multiple | | 05/04/ | | | | regions (HCC) | | 2020 | | | | (Primary Dx); | [...] 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 | | Felipa Frazier | lymphoma of lymph | | | | | [facility] | nodes of multiple | | | | | | regions (HCC) | | | | | | (Primary Dx) | +--------+ + + + + | 04/27/ | Office | Oncology | Wilton Jeff MD | 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 | | | | | | regions (HCC) | | | | | | (Primary Dx) | +--------+ + + + + | 04/27/ | Hospital | Infusion Therapy | Wilton Jeff MD | Mediastinal large | | 2020 | Encounter | | Sidra Frost | [...] | | 2020 | | | M, Hoop Punch And Coiler Operator | B-cell lymphoma of | | | [...] | | 2019 | Encounter | | Kaela Britton, | lymphoma (HCC) | | | | | Classification Analyst | (Primary Dx) | +--------+ + + + + | 04/14/ | Telephone | Hospitalist | Olivia Pérez | Medication Question | | 2019 | | | A, RN | ([facility] hospital) | +--------+ + + + + [...] Dx) | +--------+ + + + + 04/06/ | Telephone | Infusion Therapy | [...] Karen Schaefer, | Mediastinal large | | 2019 | | | RN | B-cell lymphoma [...] 04/03/ | Telephone | Infusion Therapy | iTna Cadet RN | Triage | | 2019 | | | | | +--------+ + + + + | 04/03/ | Documentati | Hematology and | Saumya Vega | | | 2019 | on | Oncology | RJOSE ANTONIOH | | +--------+ + + + + [...] | 2019 | Encounter | | Monica Pulido Y, | lymphoma, | | | | | RN Sidra Mcmullen, | unspecified body | | | | | ART OBJECTS SALESPERSON | region (HCC) | | | | [...] | | 2019 | on | | Classification Analyst | | +--------+ + + + + | 04/02/ | Orders Only | Oncology | Sidra Mcmullen, | | | 2019 | | | ART OBJECTS SALESPERSON | | +--------+ + + + + | 04/02/ | Telephone | Oncology | Sidra Mcmullen, | Lab Order | | 2019 | | | ART OBJECTS SALESPERSON | | +--------+ + + + + [...] Hospital | Radiology | Gary Alvarez, | Other classical | 2019 | Encounter | | Wood Prasad | Hodgkin lymphoma of | | | | | MD Torsten | lymph nodes of | | | | | | multiple regions | | | | | | (HCC) | +--------+ + + + + | 03/31/ | Virtual | Oncology | Wilton [...] Hospital | | Wilton Jeff MD | Other classical | 2019 | Encounter | | | Hodgkin lymphoma of | | | | | | lymph nodes of | | | | | | multiple regions | | | | | | (HCC) | +--------+ + + + + | 03/31/ | Telephone | Cardiology | Wood Gilliam | Pre-Op | | 2019 | | | MD Torsten | | +--------+ + + + + | 03/30/ | Hospital | Radiology | Wilton Jeff MD | Other classical | | 2019 | Encounter | | | [...] Paperwork | | 2019 | | | Classification Analyst | | +--------+ + + + + [...] | use | +--------+ + + + + | 03/27/ | Orders Only | | Deborah Guajardo, | Other classical | 2019 | | | Hoop Punch And Coiler Operator | Hodgkin lymphoma of | | | | | | lymph nodes of | | | | | | multiple regions | | | | | | (HCC) | +--------+ + + + + | 03/26/ | Office | Otolaryngology | She Huang | Cervical | | 2019 | Visit | | J, DO | [...] [place] | | | | | | [id number] | | | | | | | | +--------+ + + + + | 06/29/ | Office | Oncology | Wilton Jeff MD | | | 2019 | Visit | | [address] | | | | | | [place] | | | | | | [address] | | | | | | | | | | | | Sidra Mcmullen, | | | | | | [address] | | | | [address] | | | | | | [place] [address] | | | | | | [phone] | | | | | | | | +--------+ + + + + | 06/29/ | Appointment | Infusion Therapy | Wilton Jeff MD | | | 2019 | | | [address] | | | | | | [place] | | | | | | [address] | | | | | | | | +--------+ + + + + | 07/14/ | Office | Otolaryngology | She Huang | | | 2019 | Visit | | DO Sophia Canela | | | | | | [facility] [address] | | | | | | [place] [address] | | | | | | [phone] | | | | | | | | +--------+ + + + + | 07/20/ | Appointment | Infusion Therapy | Wilton Jeff MD | | | 2019 | | | [address] | | | | | | [place] | | | | | | [address] | | | | | | | | +--------+ + + + + | 07/20/ | Office | Oncology | Wilton Jeff MD | | | 2019 | Visit | | [address] | | | | | | [place] | | | | | | [address] | | | | | | | | +--------+ + + + + | 07/20/ | Appointment | Infusion Therapy | Wilton Jeff MD | | | 2019 | | | [address] | | | | | | [place] | | | | | | [address] | | | | | | | | +--------+ + + + + | 08/17/ | Appointment | Infusion Therapy | Wilton Jeff MD | | | 2019 | | | [address] | | | | | | [place] | | | | | | [address] | | | | | | | [...] Vaccess | Generi | | BARD | [id number] | 06/03/ | [id number] | | 8f-04/01/2020Implanted: Qty: 1 | c | | PERIPHERAL | [id number] | 2020 | 0 / | | [...] the most recent of 27 results within e time period is included. + + [...] | | | Absolute | performed at [facility], [address] | [address] | LABORATORY | | | | [address], | | | | | | [place] [address] | | | | + + + + + + + + | Specimen | + + | Blood | + + + + + + + | Performing | Address | City/State/Zipcode | Phone Number | | Organization | | | | + + + + + | [facility] | [address] | [place] [address] | [phone] | + + + + + Comprehensive Metabolic Panel (06/15/2020 4:10 AM PDT)Only the most recent of 21 results w vicentein the time period is included. + + [...] | >60Comment: GFR <60: | >60 | [facility] | | | GFR | CHRONIC [...] | | | | | | MDRD IDLA traceable | | | | | | equation.Testing | | | | | | performed at [facility], [address] | | | | | | [facility], | | | | | | [place] [address] | | | | + + + + + + + + | Specimen | + + | Blood | + + + + + + + | Performing | Address | City/State/Zipcode | Phone Number | | Organization | | | | + + + + + | [facility] | [address] | [place] [address] | [phone] | + + + + + CBC [...] LABORATORY | | | | performed at [facility];[address] | | | | | | [address];[place] | | | | | | [address] | | | | + + + + + + + + | Specimen | + + | Blood | + + + + + + + | Performing | Address | City/State/Zipcode | Phone Number | | Organization | | | | + + + + + | [facility] | [address] | [place] [address] | [phone] | + + + + + Basic [...] | | | | | performed at [facility] | | | | | | [facility];[place], [place] | | | | | | [address] | | | | + + + + + + + + | Specimen | + + | Blood | + + + + + + + | Performing | Address | City/State/Zipcode | Phone Number | | Organization | | | | + + + + + | [facility] | [address] | [place] [address] | [phone] | + + + + + Phosphorus (06/11/2020 3:56 AM PDT)Only the most recent of 5 results within the time marine traore is included. + + + + + + | Component | Value | Ref Range | Performed | Pathologist | | | | | At | Signature | + + + + + + | Phosphorus | 4.6Comment: Testing | 2.3 - 4.8 mg/dL | [facility] | | | | performed at [facility];[address] | | LABORATORY | | | | [address];[place] | | | | | | [address] | | | | + + + + + + + + | Specimen | + + | Blood | + + + + + + + | Performing | Address | City/State/Zipcode | Phone Number | | Organization | | | | + + + + + | [facility] | [address] | [place] [address] | [phone] | + + + + + Magnesium [...] Testing | 1.7 - 2.4 mg/dL | [facility] | | | | performed at [facility];[address] | | LABORATORY | | | | [address];[place], [place] | | | | | | [address] | | | | + + + + + + + + | Specimen | + + | Blood | + + + + + + + | Performing | Address | City/State/Zipcode | Phone Number | | Organization | | | | + + + + + | [facility] | [address] | [place] [address] | [phone] | + + + + + LABS [...] Procedure Note | + + | Stan, [id number] - 2020 4:54 PM PDT | | [...] [facility] | | | | performed at [facility];[address] | | LABORATORY | | | | [facility];[place], [place] | | | | | | [address] | | | | + + + + + + + + | Specimen | + + | Blood | + + + + + + + | Performing | Address | City/State/Zipcode | Phone Number | | Organization | | | | + + + + + | [facility] | [address] | [place] [address] | [phone] | + + + + + AST (2020 5:18 AM PDT) + + + + + + | Component | Value | Ref Range | Performed | Pathologist | | | | | At | Signature | + + + + + + | AST | 17Comment: Testing | 10 - 45 U/L | [facility] | | | | performed at [facility];[address] | | LABORATORY | | | | [address];[place] | | | | | | [address] | | | | + + + + + + + + | Specimen | + + | Blood | + + + + + + + | Performing | Address | City/State/Zipcode | Phone Number | | Organization | | | | + + + + + | [facility] | [address] | [place] [address] | [phone] | + + + + + Bilirubin, total (2020 5:18 AM PDT) + + + + + + | Component | Value | Ref Range | Performed | Pathologist | | | | | At | Signature | + + + + + + | BILIRUBIN, | 0.7Comment: Testing | 0.1 - 1.5 mg/dL | [facility] | | | TOTAL | performed at [facility];[address] | | LABORATORY | | | | [address];[place] | | | | | | [address] | | | | + + + + + + + + | Specimen | + + | Blood | + + + + + + + | Performing | Address | City/State/Zipcode | Phone Number | | Organization | | | | + + + + + | [facility] | [address] | [place] [address] | [phone] | + + + + + Uric [...] Testing | 3.2 - 8.6 mg/dL | [facility] | | | | performed at [facility];[address] | | LABORATORY | | | | [address];[place], [place] | | | | | | [address] | | | | + + + + + + + + | Specimen | + + | Blood | + + + + + + + | Performing | Address | City/State/Zipcode | Phone Number | | Organization | | | | + + + + + | [facility] | [address] | [place] [address] | [phone] | + + + + + COMPASS [...] | | LAB | | | | [id number] | | [facility] | | | | [...] 48EB, | | | | | | [id number] | | | | | | Technique [...] | | | | | [place], [address], | | | | | | [place], [place] / | | | | | | [address]/ [phone] / | | | | | | CLIA #[id number] / | | | | | | [...] [address], | | | | | | [place] / [address] / | | | | | | [phone] / | | | | | | CLIA#[id number] / | | | | | | Airfreight Loading Supervisor(s): | | | | | | Isiah Baig M.D. | | | | | | TheProfessional | | | | | | Component of this test | | | | | | was completed | | | | | | at[facility] [place], [address] | | | | | | [facility] | | | | | | [place], [place] / [address] | | | | | | /[phone] / CLIA# | | | | | | [id number] / Medical | | | | | [...] | | | | | the billing democrat.Please | | | | | | direct any questions | | | | | | regarding coding to the | | | | | | payerbeing billed. | | | | + + + + + + | Compass | See BelowComment: Report | | REFERENCE | | | | Number: | | LAB | | | | [id number] | | [facility] | | | | [...] | | | | | | [facility] | | | | | | [place], [address] | | | | | | [facility], | | | | | | [place] /[address] / | | | | | | [phone] / JSIA | | | | | | #[id number] / | | | | | | [...] | | LAB | | | | [id number] | | [facility] | | | | [...] | | | | | | CD117,HLA-DR, [place], | | | | | | Lambda [...] | | | | | completed at [facility] | | | | | | [place], [address] | | | | | [address], [place], [place] | | | | | | / [address] / [phone] | | | | | | / CLIA #[id number] / | | | | | | MedicalDirector(s): | | | | | | Mya Kim M.D. | | | | | | The Professional | | | | | | Componentof this test | | | | | | was completed at | | | | | | [facility] [place], | | | | | | [address] [place] [address], | | | | | | [place] / [address] / | | | | | | [phone] / | | | | | | CLIA#[id number] / | | | | | | Airfreight Loading Supervisor(s): | | | | | | Isiah [...] are | | | | | | circulation representative of the | | | | [...] | | | | | | billing democrat. Please | | | | | | direct any questions | | | | | | regardingcoding to the | | | | | | payer being billed. | | | | + + + + + + | Pathology | See BelowComment: Report | | REFERENCE | | | Comment 1 | Number: | | LAB | | | | [id number] | | [facility] | | | | [...] | | | | | and dated JU2019, | | | | | | indicates [...] NotesCase | | | | | | [id number] is received | | | | | [...] increased.MYELOPOIESIS: | | | | | | Mold Maker Plastic Molds maturation is | | | | | | observed. | | | | | | ERYTHROPOIESIS: Mold Maker Plastic Molds | | | | | | maturation [...] | | | | | | See UiwyaFT47 | | | | | | (core): [...] | | | | | completed at [facility] | | | | | | [place], | | | | | | [place] | | | | | | / [address] / [phone] | | | | | | / CLIA #[id number] / | | | | | | MedicalDirector(s): | | | | | | Mya Kim M.D. | | | | | | The Professional | | | | | | Componentof this test | | | | | | was completed at | | | | | | [facility] [place], | | | | | | [address] [place] [address], | | | | | | [place] / [address] / | | | | | | [phone] / | | | | | | CLIA#[id number] / | | | | | | Airfreight Loading Supervisor(s): | | | | | | Isiah [...] are | | | | | | circulation representative of the | | | | | | patientbut not all | | | | | | testing in its entirety | | | | | | and should not be used | | | | | | torender a | | | | | | result.Testing Performed | | | | | | at [facility] | | | | | | Laboratory | | | | | | | | | | | | [address] | | | | | [place] [address] | | | | + + + + + + + + | Specimen | + + | | + + + + + + + | Performing | Address | City/State/Zipcode | Phone Number | | Organization | | | | + + + + + | REFERENCE LAB | [address] [place] [address] | [place], [place] | [phone] | | [facility] | Bl[address] | [address] | | | LABORATORY | | | | + + + + + | REFERENCE LAB | [address] [place] [address] | [place], [place] | | | [facility] | Bl[address] | [address] | | | LABORATORY | | | [...] | | | | | | 0.9The [facility] recommends | | | | | | that a positive HCV | | | | | | antibody resultbe | | | | | | followed up with a HCV | | | | | | Nucleic Acid | | | | | | Amplificationtest | | | | | | ([id number]).Testing | | | | | | performed at [facility], | | | | | | [address], [address], | | | | | | [facility] [address] | | | | + + + + + + + + | Specimen | + + | | + + + + + + + | Performing | Address | City/State/Zipcode | Phone Number | | Organization | | | | + + + + + | REFERENCE LAB | [address] | [place] | [phone] | | [facility] | [address] | [address] | | | LABORATORY | | | | + + + + + | REFERENCE LAB | [address] [facility] | [place] | | | [facility] | [place]. | [address] | | | LABORATORY | | | [...] Report Signed by: | | | Ananth Gilliam Richard Sign Date/Time: 04/01/2020 4:22 PM | | [...] limited | | | to bleeding, pneumothorax, infection,senior living vein occlusion, | | | allergic reaction [...] Procedure Note | + + | Stan, [id number] - 04/01/2020 4:26 PM PDT | | [...] limited to bleeding, pneumothorax, infection, | | watcher automat long goods vein occlusion, allergic reaction and . | [...] vein. Using standard Seldinger technique, a 5 Swedish | | micropuncture sheath was position over [...] | | | | | performed at [facility];[address] | | | | | | [address];[place] | | | | | | [address] | | | | + + + + + + + + | Specimen | + + | Blood | + + + + + + + | Performing | Address | City/State/Zipcode | Phone Number | | Organization | | | | + + + + + | [facility] | [address] | [place] [address] | [phone] | + + + + + [place] [...] Procedure Note | + + | Stan, [id number] - 03/30/2020 12:10 PM PDT | | [...] [place] | | | | | | [address] | | | | + + + + + + + + | Specimen | + + | Blood | + + + + + + + | Performing | Address | City/State/Zipcode | Phone Number | | Organization | | | | + + + + + | REFERENCE LAB | [address] | [place] | [phone] | | [facility] | [address] | [address] | | | LABORATORY | | | | + + + + + | REFERENCE LAB | [address] | [place] | | | [facility] | [address] | [address] | | | LABORATORY | | | [...] REFERENCE | | | | performed at [facility];[address] | | LAB | | | | [place] | | [facility] | | | | Bl[address];[place] [address] | | LABORATORY | | + + + + + + + + | Specimen | + + | Blood | + + + + + + + | Performing | Address | City/State/Zipcode | Phone Number | | Organization | | | | + + + + + | REFERENCE LAB | [address] [facility] | [place] | [phone] | | [facility] | [address] | [address] | | | LABORATORY | | | | + + + + + | REFERENCE LAB | [address] [facility] | [place] | | | [facility] | Blvd[address] | [address] | | | LABORATORY | | | [...] REFERENCE | | | | Performed at [address], [address] | | LAB | | | | [address] | | [facility] | | | | [address], [place] | | LABORATORY | | | | [address] | | | | + + + + + + + + | Specimen | + + | Blood | + + + + + + + | Performing | Address | City/State/Zipcode | Phone Number | | Organization | | | | + + + + + | REFERENCE LAB | [address] [place] [address] | [place], [place] | [phone] | | [facility] | Bl[address] | [address] | | | LABORATORY | | | | + + + + + | REFERENCE LAB | [address] [place] [address] | [place], [place] | | | [facility] | Blvd. | [address] | | | LABORATORY | | | [...] | [employer] | [facility] | [id number] | 03/05/20 | [phone] | | Medica [...] Person | Self | [birth year] | | ST | | | al/Fam | | 1989 | [phone] | [place], [place] | | | jacqueline | | | 3 (Home) | [address] | + +--------+ +--------+ + + | Asad Longo | Person | Self | [birth year] | | [address] | | | al/Fam | | 1989 | [phone] | [place], [place] | | | [place] | | | 3 (Home) | [address] | + +--------+ +--------+ + + Advance Directives + + + + + | Type | Date Recorded | Patient | Explanation | | | | Flower Cheniller | | + + + + + | Power of | | | | | Regional Property Manager | | | | + + + [...]
--- OUTSIDE RECORDS SUMMARY | ~2020-06-23 | XMS | Encounter Summary ---
Demographics + + + | Address | [address] | | | [place] [address] | + + + | Home Phone [...] Team Providers + +------+ + | Care Sixth Grade Teacher Name | Role | Phone | + +------+ + | Myrna eMjia MD | PCP | | + +------+ + Encounter Details +--------+ + + + + | Date | Type | Department | Care Team | Description | +--------+ + + + + | 04/02/ | Orders Only | [facility] | Marilou Mcmullen, | | | 2020 | | HEMATOLOGY AND | METAL WINDOW FRAME MAKER [address] | | | | | ONCOLOGY [address] | | | | | [address] | [place] [address] | | | | | [place], [place] | [phone] | | | | | [address] | | | | | | [phone] | | | +--------+ + + + [...] [place] | | | | | | [address] | | | | | | | | +--------+ + + + + | 06/29/ | Office | Oncology | Wilton Jeff MD | | | 2019 | Visit | | [address] | | | | | | [place] | | | | | | [address] | | | | | | | | | | | | Marilou Mcmullen, | | | | | | METAL WINDOW FRAME MAKER [address] | | | | | | [address] | | | | | | [place] [address] | | | | | | [phone] | | | | | | | | +--------+ + + + + | 06/29/ | Appointment | Infusion Therapy | Wilton Jeff MD | | | 2019 | | | [address] | | | | | | [place] | | | | | | [address] | | | | | | | | +--------+ + + + + | 07/14/ | Office | Otolaryngology | She Huang | | | 2019 | Visit | | DO Sophia Canela | | | | | | [facility] [address] | | | | | | [place] [address] | | | | | | [phone] | | | | | | | | +--------+ + + + + | 07/20/ | Appointment | Infusion Therapy | Wilton Jeff MD | | | 2019 | | | [address] | | | | | | [place] | | | | | | [address] | | | | | | | | +--------+ + + + + | 07/20/ | Office | Oncology | Wilton Jeff MD | | | 2019 | Visit | | [address] | | | | | | [place] | | | | | | [address] | | | | | | | | +--------+ + + + + | 07/20/ | Appointment | Infusion Therapy | Wilton Jeff MD | | | 2019 | | | [address] | | | | | | [place] | | | | | | [address] | | | | | | | | +--------+ + + + + | 08/17/ | Appointment | Infusion Therapy | Wilton Jeff MD | | | 2019 | | | [address] | | | | | | [place] | | | | | | [address] | | | | | | | | +--------+ + + + + | 08/17/ | Office | Oncology | Wilton Jeff MD | | | 2019 | Visit | | [address] | | | | | | [place] | | | | | | [address] | | | | | | | [...] | | LAB | | | | [id number] | | [facility] | | | | [...] 48EB, | | | | | | [id number] | | | | | | Technique [...] | | | | | [place], [address], | | | | | | [place], [place] / | | | | | | [address]/ [phone] / | | | | | | CLIA #[id number] / | | | | | | [...] [address], | | | | | | [place], [place] / [address] / | | | | | | [phone] / | | | | | | CLIA#[id number] / | | | | | | Transmission Assembler(s): | | | | | | Isiah Baig M.D. | | | | | | TheProfessional | | | | | | Component of this test | | | | | | was completed | | | | | | at[facility] [place], [address] | | | | | | [address], | | | | | | [place] / [address] | | | | | | /[phone] / CLIA# | | | | | | [id number] / Medical | | | | | [...] | | LAB | | | | [id number] | | [facility] | | | | [...] | | | | | [facility] | | | | | | [place], [facility] | | | | | | [facility], | | | | | | [place] /[address] / | | | | | | [phone] / CLIA | | | | | | #[id number] / | | | | | | [...] | | LAB | | | | [id number] | | [facility] | | | | [...] | | | | | | CD117,HLA-DR, [place], | | | | | | Lambda [...] | | | | | completed at [facility] | | | | | | [place], | | | | | | [place] | | | | | | / [address] / [phone] | | | | | | / CLIA #[id number] / | | | | | | MedicalDirector(s): | | | | | | Mya Kim M.D. | | | | | | The Professional | | | | | | Componentof this test | | | | | | was completed at | | | | | | [facility] [place], | | | | | | [address] [place] [address], | | | | | | [place], [place] / [address] / | | | | | | [phone] / | | | | | | CLIA#[id number] / | | | | | | Transmission Assembler(s): | | | | | | Isiah [...] are | | | | | | wholesale representative of the | | | | [...] | | LAB | | | | [id number] | | [facility] | | | | [...] 1(800) | | | | | | [phone]. Clinical Data | | | | | [...] NotesCase | | | | | | [id number] is received | | | | | [...] increased.MYELOPOIESIS: | | | | | | Graphic Production Artist maturation is | | | | | | observed. | | | | | | ERYTHROPOIESIS: Graphic Production Artist | | | | | | maturation [...] | | | | | | See OxawyBU30 | | | | | | (core): [...] | | | | | | / [address] / [phone] | | | | | | / CLIA #[id number] / | | | | | | MedicalDirector(s): | | | | | | Mya Kim M.D. | | | | | | The Professional | | | | | | Componentof this test | | | | | | was completed at | | | | | | [facility] [place], | | | | | | [address] [place] [address], | | | | | | [place] / [address] / | | | | | | [phone] / | | | | | | CLIA#[id number] / | | | | | | Transmission Assembler(s): | | | | | | Isiah [...] are | | | | | | wholesale representative of the | | | | | | patientbut not all | | | | | | testing in its entirety | | | | | | and should not be used | | | | | | torender a | | | | | | result.Testing Performed | | | | | | at [facility] | | | | | | Laboratory | | | | | | | | | | | | [address] [place] | | | | | | [place] [address] | | | | + + + + + + + + | Specimen | + + | | + + + + + + + | Performing | Address | City/State/Zipcode | Phone Number | | Organization | | | | + + + + + | REFERENCE LAB | [address] | [place] | [phone] | | [facility] | [address] | [address] | | | LABORATORY | | | | + + + + + | REFERENCE LAB | [address] [facility] | [place] | | | [facility] | Blvd[address] | [address] | | | LABORATORY | | | | + + + + + documented in this encounter Visit Diagnoses Not on filedocumented in this encounter
--- OUTSIDE RECORDS SUMMARY | ~2020-06-23 | XMS | Encounter Summary ---
Demographics + + + | Address | [address] | | | [place] [address] | + + + | Home Phone [...] Team Providers + +------+ + | Care Inker Machine Name | Role | Phone | + [...] + + | 05/18/ | Telephone | [facility] | Felipa Frazier | Imaging; Oncology | | 2019 | | HEMATOLOGY AND | [facility] | Appointment | | | | ONCOLOGY INFUSIONS | | (approved for fast | | | | [address] | | rate rituxan per | | | | [place] | | [place]) | | | | [address] | | | | | | [phone] | | | +--------+ + + + [...] us in any way. Marilou Mcm[place], MSN, LABOR GANG SUPERVISOR, AOCNP [facility]ology [facility] Oncology elephone Encounter - [...] 3:12 PM PDT----- Message from OSMANY Simmons RECORDER GRAVITY PROSPECTING sent at 05/18/2020 2:55 PM PDT ----- We can. Also, would you please let him know that we will plan for the PET/CT after cycle six, not c ycle three. I don't think it will change his plan to do one after cycle three, because we wi ll still do six total cycles of chemo. Thx Marilou Mcmullen MSN, LABOR GANG SUPERVISOR, AOCNP [facility]ology [facility] Oncology ----- Message ----- [...] [place] | | | | | | [address] | | | | | | | | +--------+ + + + + | 06/29/ | Office | Oncology | Wilton Jeff MD | | | 2019 | Visit | | [address] | | | | | | [place] | | | | | | [address] | | | | | | | | | | | | Marilou Mcmullen, | | | | | | LABOR GANG SUPERVISOR [address] | | | | | | [address] | | | | | | [place] [address] | | | | | | [phone] | | | | | | | | +--------+ + + + + | 06/29/ | Appointment | Infusion Therapy | Wilton Jeff MD | | | 2019 | | | [address] | | | | | | [place] | | | | | | [address] | | | | | | | | +--------+ + + + + | 07/14/ | Office | Otolaryngology | She Huang | | | 2019 | Visit | | DO Sophia Canela | | | | | | [place] [address] | | | | | | [place] [address] | | | | | | [phone] | | | | | | | | +--------+ + + + + | 07/20/ | Appointment | Infusion Therapy | Wilton Jeff MD | | | 2019 | | | [address] | | | | | | [place] | | | | | | [address] | | | | | | | | +--------+ + + + + | 07/20/ | Office | Oncology | Wilton Jeff MD | | | 2019 | Visit | | [address] | | | | | | [place] | | | | | | [address] | | | | | | | | +--------+ + + + + | 07/20/ | Appointment | Infusion Therapy | Wilton Jeff MD | | | 2019 | | | [address] | | | | | | [place] | | | | | | [address] | | | | | | | | +--------+ + + + + | 08/17/ | Appointment | Infusion Therapy | Wilton Jeff MD | | | 2019 | | | [address] | | | | | | [place] | | | | | | [address] | | | | | | | | +--------+ + + + + | 08/17/ | Office | Oncology | Wilton Jeff MD | | | 2020 | Visit | | [address] | | | | | | [place] | | | | | | [address] | | | | | | | | +--------+ + + + + documented as of this encounter Visit Diagnoses Not on filedocumented in this encounter"
--- OUTSIDE RECORDS SUMMARY | ~2020-06-23 | XMS | Encounter Summary ---
Demographics + + + | Address | [address] | | | [place] [address] | + + + | Home Phone [...] + + + | Author | [facility] | | | and [place] | + + + | Organization | [facility] | | | [...] Team Providers + +------+ + | Care Certified Executive Chef Name | Role | Phone | + [...] + + | 05/15/ | Telephone | [facility] | Tina Cadet RN | Other (Request for | | 2020 | | INFUSION SUPPORT | | admission to | | | | SERVICES [address] | | inpatient for | | | | [address] | | chemotherapy) | | | | [address] [place] | | | | | | [address] | | | | | | [phone] | | | +--------+ + + + [...] 05/15/2020 12:58 PM PDTOutLook Email sent to [facility] Oncology Direct Admit Notification: ONC DA Patient: [...] [place] | | | | | | [address] | | | | | | | | +--------+ + + + + | 06/29/ | Office | Oncology | Wilton Jeff MD | | | 2019 | Visit | | [address] | | | | | | [place] | | | | | | [address] | | | | | | | | | | | | Marilou Mcmullen, | | | | | | BILLIARD TABLE ASSEMBLER [address] | | | | | | [address] | | | | | | [place] [address] | | | | | | [phone] | | | | | | | | +--------+ + + + + | 06/29/ | Appointment | Infusion Therapy | Wilton Jeff MD | | | 2019 | | | [address] | | | | | | [place] | | | | | | [address] | | | | | | | | +--------+ + + + + | 07/14/ | Office | Otolaryngology | She Huang | | | 2019 | Visit | | DO Sophia Canela | | | | | | [place] [address] | | | | | | [place] [address] | | | | | | [phone] | | | | | | | | +--------+ + + + + | 07/20/ | Appointment | Infusion Therapy | Wilton Jeff MD | | | 2019 | | | [address] | | | | | | [place] | | | | | | [address] | | | | | | | | +--------+ + + + + | 07/20/ | Office | Oncology | Wilton Jeff MD | | | 2019 | Visit | | [address] | | | | | | [place] | | | | | | [address] | | | | | | | | +--------+ + + + + | 07/20/ | Appointment | Infusion Therapy | Wilton Jeff MD | | | 2019 | | | [address] | | | | | | [place] | | | | | | [address] | | | | | | | | +--------+ + + + + | 08/17/ | Appointment | Infusion Therapy | Wilton Jeff MD | | | 2019 | | | [address] | | | | | | [place] | | | | | | [address] | | | | | | | | +--------+ + + + + | 08/17/ | Office | Oncology | Wilton Jeff MD | | | 2020 | Visit | | [address] | | | | | | [place] | | | | | | [address] | | | | | | | | +--------+ + + + + documented as of this encounter Visit Diagnoses Not on filedocumented in this encounter"
--- OUTSIDE RECORDS SUMMARY | ~2020-06-23 | XMS | Encounter Summary ---
Demographics + + + | Address | [address] | | | [place] [address] | + + + | Home Phone [...] Author + + + | Author | [facility] | | | and [place] | + + + | Organization | [facility] | | | and [...] Team Providers + +------+ + | Care Counter Attendant Name | Role | Phone | + +------+ + | Myrna Mejia MD | PCP | | + +------+ + Encounter Details +--------+ + + + + | Date | Type | Department | Care Team | Description | +--------+ + + + + | 05/18/ | Orders Only | [facility] | Paz Walton RN | Mediastinal large | | 2020 | | HEMATOLOGY AND | | B-cell lymphoma of | | | | ONCOLOGY INFUSIONS | | lymph nodes of | | | | [address] | | multiple regions | | | | [place] | | ([facility]) | | | | [address] | | | | | | [phone] | | | +--------+ + + + [...] [place] | | | | | | [address] | | | | | | | | +--------+ + + + + | 06/29/ | Office | Oncology | Wilton Jeff MD | | | 2019 | Visit | | [address] | | | | | | [place] | | | | | | [address] | | | | | | | | | | | | Marilou Mcmullen, | | | | | | CUT OFF SAWYER LOG [address] | | | | | | [address] | | | | | | [place] [address] | | | | | | [phone] | | | | | | | | +--------+ + + + + | 06/29/ | Appointment | Infusion Therapy | Wilton Jeff MD | | | 2019 | | | [address] | | | | | | [place] | | | | | | [address] | | | | | | | | +--------+ + + + + | 07/14/ | Office | Otolaryngology | She Huang | | | 2019 | Visit | | DO Sophia Canela | | | | | | [facility] [address] | | | | | | [place] [address] | | | | | | [phone] | | | | | | | | +--------+ + + + + | 07/20/ | Appointment | Infusion Therapy | Wilton Jeff MD | | | 2019 | | | [address] | | | | | | [place] | | | | | | [address] | | | | | | | | +--------+ + + + + | 07/20/ | Office | Oncology | Wilton Jeff MD | | | 2019 | Visit | | [address] | | | | | | [place] | | | | | | [address] | | | | | | | | +--------+ + + + + | 07/20/ | Appointment | Infusion Therapy | Wilton Jeff MD | | | 2019 | | | [address] | | | | | | [place] | | | | | | [address] | | | | | | | | +--------+ + + + + | 08/17/ | Appointment | Infusion Therapy | Wilton Jeff MD | | | 2019 | | | [address] | | | | | | [place] | | | | | | [address] | | | | | | | | +--------+ + + + + | 08/17/ | Office | Oncology | Wilton Jeff MD | | | 2019 | Visit | | [address] | | | | | | [place] | | | | | | [address] | | | | | | | [...] LAB | | | | TCL;[address] [facility] | | [facility] | | | | Blvd;[place] [address] | | LABORATORY | | + + + + + + | Red Blood | 3.86 (L)Comment: Testing | 4.20 - 5.70 | REFERENCE | | | Cells | performed at TCL;[address] | M/uL | LAB | | | | [place] | | [facility] | | | | [address];[place] [address] | | LABORATORY | | + + + + + + | Hemoglobin | 11.2 (L)Comment: Testing | 13.2 - 17.0 | REFERENCE | | | | performed at TCL;[address] | g/dL | LAB | | | | [place] | | [facility] | | | | [address]vd;[place] [address] | | LABORATORY | | + + + + + + | Hematocrit | 35.0 (L)Comment: Testing | 39.0 - 50.0 % | REFERENCE | | | | performed at TCL;[address] | | LAB | | | | [place] | | [facility] | | | | [address];[place] [address] | | LABORATORY | | + + + + + + | MCV | 90.7Comment: Testing | 80.0 - 100.0 fl | REFERENCE | | | | performed at TCL;[address] | | LAB | | | | [place] | | [facility] | | | | Blvd;[place] [address] | | LABORATORY | | + + + + + + | MCH | 29.0Comment: Testing | 27.0 - 34.0 pg | REFERENCE | | | | performed at TCL;[address] | | LAB | | | | [place] | | [facility] | | | | Blvd;[place] [address] | | LABORATORY | | + + + + + + | MCHC | 32.0Comment: Testing | 32.0 - 35.5 | REFERENCE | | | | performed at TCL;[address] | g/dL | LAB | | | | [place] | | [facility] | | | | Blvd;[place] [address] | | LABORATORY | | + + + + + + | RDW-SD | 61.4 (H)Comment: Testing | 37 - 53 fl | REFERENCE | | | | performed at TCL;[address] | | LAB | | | | [place] | | [facility] | | | | Blvd;[place] [address] | | LABORATORY | | + + + + + + | Platelet | 224Comment: Testing | 150 - 400 K/uL | REFERENCE | | | Count | performed at TCL;[address] | | LAB | | | | [place] | | [facility] | | | | Blvd;[place] [address] | | LABORATORY | | + + + + + + | MPV | 9.9Comment: NO NORMAL | fl | REFERENCE | | | | RANGE ESTABLISHEDTesting | | LAB | | | | performed at TCL;[address] | | [facility] | | | | [place] | | LABORATORY | | | | Blvd;[place] [address] | | | | | | | [...] | | | | TCL, [address] [facility] | | LABORATORY | | | | [address], | | | | | | [place] [address] | | | | + + + + + + + + | Specimen | + + | Blood | + + + + + + + | Performing | Address | City/State/Zipcode | Phone Number | | Organization | | | | + + + + + | REFERENCE LAB | [address] | [place], [place] | [phone] | | [facility] | Bl[address] | [address] | | | LABORATORY | | | | + + + + + | REFERENCE LAB | [address] [facility] | [place], [place] | | | [facility] | Blvd. | [address] | | | LABORATORY | | | [...] [place] | | | | | | [address] | | | | + + + + + + + + | Specimen | + + | Blood | + + + + + + + | Performing | Address | City/State/Zipcode | Phone Number | | Organization | | | | + + + + + | REFERENCE LAB | [address] [facility] | [place] | [phone] | | [facility] | Bl[address] | [address] | | | LABORATORY | | | | + + + + + | REFERENCE LAB | [address] | [place], [place] | | | [facility] | Blvd. 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
--- OUTSIDE RECORDS SUMMARY | ~2020-06-23 | XMS | Encounter Summary ---
Demographics + + + | Address | [address] | | | [place] [address] | + + + | Home Phone [...] Team Providers + +------+ + | Care Program Engineer Name | Role | Phone | [...] | Radiology | Diagnoses | Tomer, | [facility] | | Review | | | Other | MD Wilton | Medicine | | | | | classical | [address] | | | | | Hodgkin | [address] | [address] | | | | | lymphoma of | AVE | [place], [place] | | | | | lymph nodes | [place], | [address] | | | | | of multiple | [place] [address] | Phone: | | | | | regions | Phone: | [phone] | | | | | ([facility]) | [phone] | Fax: | | | | | Procedures | Fax: | [phone] | | | | | [place] [facility] | [phone] | | | | | | MUGA [...] | | lymphoma of | AVE | [place], [place] | | | | | lymph nodes | [place], | [address] | | | | | of multiple | [place] [address] | Phone: | | | | | regions | Phone: | [phone] | | | | | ([facility]) | [phone] | Fax: | | | | | Procedures | Fax: | [phone] | | | | | [place] [facility] | [phone] | | | | | | MUGA Scan | | | + +--------+ + + + + Encounter Details +--------+ + + + + | Date | Type | Department | Care Team | Description | +--------+ + + + + | 03/30/ | Hospital | [facility] | Wilton Jeff MD | 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 | [facility] | [address] | Hodgkin lymphoma of | | | | NUCLEAR MEDICINE | [place] | lymph nodes of | | | | [address] | [address] | multiple regions | | | | [place], [place] | | ([facility]) | | | | [address] | | | | | | [phone] | | | +--------+ + + + [...] [place] | | | | | | [address] | | | | | | | | +--------+ + + + + | 06/29/ | Office | Oncology | Wilton Jeff MD | | | 2019 | Visit | | [address] | | | | | | [place] | | | | | | [address] | | | | | | | | | | | | Marilou Mcmullen, | | | | | | RULING MACHINE SET UP OPERATOR [address] | | | | | [address] | | | | | | [place] [address] | | | | | | [phone] | | | | | | | | +--------+ + + + + | 06/29/ | Appointment | Infusion Therapy | Wilton Jeff MD | | | 2019 | | | [address] | | | | | | [place] | | | | | | [address] | | | | | | | | +--------+ + + + + | 07/14/ | Office | Otolaryngology | She Huang | | | 2019 | Visit | | DO Sophia Canela | | | | | | [place] [address] | | | | | | [place] [address] | | | | | | [phone] | | | | | | | | +--------+ + + + + | 07/20/ | Appointment | Infusion Therapy | Wilton Jeff MD | | | 2019 | | | [address] | | | | | | [place] | | | | | | [address] | | | | | | | | +--------+ + + + + | 07/20/ | Office | Oncology | Wilton Jeff MD | | | 2019 | Visit | | [address] | | | | | | [place] | | | | | | [address] | | | | | | | | +--------+ + + + + | 07/20/ | Appointment | Infusion Therapy | Wilton Jeff MD | | | 2019 | | | [address] | | | | | | [place] | | | | | | [address] | | | | | | | | +--------+ + + + + | 08/17/ | Appointment | Infusion Therapy | Wilton Jeff MD | | | 2019 | | | [address] | | | | | | [place] | | | | | | [address] | | | | | | | | +--------+ + + + + | 08/17/ | Office | Oncology | Wilton Jeff MD | | | 2019 | Visit | | [address] | | | | | | [place] | | | | | | [address] | | | | | | | [...] Procedure Note | + + | Stan, [id number] - 03/30/2020 12:10 PM PDT | | [...]
--- OUTSIDE RECORDS SUMMARY | ~2020-06-23 | XMS | Encounter Summary ---
Demographics + + + | Address | [address] | | [place] [address] | + + + | Home Phone [...] Author + + + | Author | [facility] | | | and [place] | + + + | Organization | [facility] | | [...] Team Providers + +------+ + | Care Pattern Worker Name | Role | Phone | [...] | lung lobe | [address] | [place], [place] | | | | | Procedures | [address] | [address] | | | | | PET CT Skull | [place], [place] | Phone: | | | | | Base To Mid | [address] | [phone] | | | | | Thigh | Phone: | Fax: | | | | | | [phone] | [phone] | | | | | | Fax: | | | | | | | [phone] | | +--------+--------+ + + + + [...] | | | lung field | [place] [address] | [place] | | | | | Generalized | Phone: | [address] Phone: | | | | | enlarged | [phone] | [phone] | | | | | lymph nodes | Fax: | Fax: | | | | | | [phone] | [phone] | + +--------+ + + + + Encounter Details +--------+---------+ + + + | Date | Type | Department | Care Team | Description | +--------+---------+ + + + | 03/09/ | Office | [facility] | Jake, | Cavitating mass in | | 2020 | Visit | PULMONOLOGY [address] | Tali Farfan, | right upper lung | | | | FR[address]ERICK MEZA | MD [address] | lobe (Primary Dx); | | | | [place] | [place], | Poor dentition | | | | [address] | [place] [address] | | | | | [phone] | [phone] | | | | | | | [...] cervica l [place]. 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 If unimproved, will go ahead and get [...] Joseph MD Pulmonary and Critical Care Medicine [facility] [address] [address], [place] [address] documente d in this encounter Plan of [...] [place] | | | | | | [address] | | | | | | | | +--------+ + + + + | 06/29/ | Office | Oncology | Wilton Jeff MD | | 2019 | Visit | | [address] | | | | | | [place] | | | | | | [address] | | | | | | | | | | | | Marilou Mcmullen, | | | | | | [address] | | | | | [address] | | | | | | [place] [address] | | | | | | [phone] | | | | | | | | +--------+ + + + + | 06/29/ | Appointment | Infusion Therapy | Wilton Jeff MD | | | 2019 | | | [address] | | | | | | [place] | | | | | | [address] | | | | | | | | +--------+ + + + + | 07/14/ | Office | Otolaryngology | She Huang | | 2019 | Visit | | DO Sophia Canela | | | | | | [address] | | | | | | [place] [address] | | | | | | [phone] | | | | | | | | +--------+ + + + + | 07/20/ | Appointment | Infusion Therapy | Wilton Jeff MD | | | 2019 | | | [address] | | | | | | [place] | | | | | | [address] | | | | | | | | +--------+ + + + + | 07/20/ | Office | Oncology | Wilton Jeff MD | | | 2019 | Visit | | [address] | | | | | | [place] | | | | | | [address] | | | | | | | | +--------+ + + + + | 07/20/ | Appointment | Infusion Therapy | Wilton Jeff MD | | | 2019 | | | [address] | | | | | | [place] | | | | | | [address] | | | | | | | | +--------+ + + + + | 08/17/ | Appointment | Infusion Therapy | Wilton Jeff MD | | | 2019 | | | [address] | | | | | | [place] | | | | | | [address] | | | | | | | | +--------+ + + + + | 08/17/ | Office | Oncology | Wilton Jeff MD | | | 2019 | Visit | | [address] | | | | | | [place] | | | | | | [address] | | | | | | | [...] Procedure Note | + + | Stan, [id number] - 03/16/2020 12:20 PM PDT EXAM DESCRIPTION [...]
--- OUTSIDE RECORDS SUMMARY | ~2020-06-23 | XMS | Encounter Summary ---
Demographics + + + | Address | [address] | | | [place] [address] | + + + | Home Phone [...] Team Providers + +------+ + | Care Engraver Picture Name | Role | Phone | + +------+ + | Myrna Mejia MD | PCP | | + +------+ + Encounter Details +--------+ + + + + | Date | Type | Department | Care Team | Description | +--------+ + + + + | 04/02/ | Orders Only | [facility] | Wilton Jeff MD | | | 2020 | | HEMATOLOGY AND | [address] | | | | | ONCOLOGY [address] | [place] | [address] | [address] | | | | | [place] | | | | | | [address] | | | | | | [phone] | | | +--------+ + + + [...] [place] | | | | | | [address] | | | | | | | | +--------+ + + + + | 06/29/ | Office | Oncology | Wilton Jeff MD | | | 2019 | Visit | | [address] | | | | | | [place] | | | | | | [address] | | | | | | | | | | | | Marilou Mcmullen, | | | | | | [employer] DIRECT[employer] [address] | | | | | [address] | | | | | | [place] [address] | | | | | | [phone] | | | | | | | | +--------+ + + + + | 06/29/ | Appointment | Infusion Therapy | Wilton Jeff MD | | | 2019 | | | [address] | | | | | | [place] | | | | | | [address] | | | | | | | | +--------+ + + + + | 07/14/ | Office | Otolaryngology | She Huang | | | 2019 | Visit | | DO Sophia Canela | | | | | | [place] [address] | | | | | | [place] [address] | | | | | | [phone] | | | | | | | | +--------+ + + + + | 07/20/ | Appointment | Infusion Therapy | Wilton Jeff MD | | | 2019 | | | [address] | | | | | | [place] | | | | | | [address] | | | | | | | | +--------+ + + + + | 07/20/ | Office | Oncology | Wilton Jeff MD | | | 2019 | Visit | | [address] | | | | | | [place] | | | | | | [address] | | | | | | | | +--------+ + + + + | 07/20/ | Appointment | Infusion Therapy | Wilton Jeff MD | | | 2019 | | | [address] | | | | | | [place] | | | | | | [address] | | | | | | | | +--------+ + + + + | 08/17/ | Appointment | Infusion Therapy | Wilton Jeff MD | | | 2019 | | | [address] | | | | | | [place] | | | | | | [address] | | | | | | | | +--------+ + + + + | 08/17/ | Office | Oncology | Wilton Jeff MD | | | 2019 | Visit | | [address] | | | | | | [place] | | | | | | [address] | | | | | | | [...] Amplificationtest | | | | | | ([id number]).Testing | | | | | | performed at [facility], | | | | | | [address], [address], | | | | | | [facility] [address] | | | | + + + + + + + + | Specimen | + + | | + + + + + + + | Performing | Address | City/State/Zipcode | Phone Number | | Organization | | | | + + + + + | REFERENCE LAB | [address] [place] [address] | [place], [place] | [phone] | | [facility] | [address] | [address] | | | LABORATORY | | | | + + + + + | REFERENCE LAB | [address] [facility] | [place], [place] | | | [facility] | Bl[address] | [address] | | | LABORATORY | | | | + + + + + documented in this encounter Visit Diagnoses Not on filedocumented in this encounter"
--- OUTSIDE RECORDS SUMMARY | ~2020-06-23 | XMS | Encounter Summary ---
Demographics + + + | Address | [address] | | [place] [address] | + + + | Home Phone [...] + + + | Author | [facility] | | | and [place] | + + + | Organization | [facility] | | | [...] Team Providers + +------+ + | Care Boiler Repair Supervisor Name | Role | Phone | [...] + + | 06/10/ | Hospital | 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 [place] [id number] In 2 weeks Discharge Medications New Medications [...] Immunocom promised aka: ZOVIRAX aluminum & magnesium vvmjhqfqw-kgnrvovkukq-pnhzrzapupCIYWH-lidocaine Swish and spit 15 mLs every 4 hours as needed for Sore Throat. benzonatate 100 mg capsule Take 100 mg by mouth 3 times daily as needed for Cough. aka: TESSALON wgdzwwnedgwxaci-bqfymztlabgmil-yhlumkma suspension Swish and spit 10 mLs 4 [...] ARNP - . White cell shot at [place] on June 17. Please schedule. 2. Blood work in 1 week around June 22 at [place]. 3. Please keep track of your numbness and tingling (when it starts, when it stops). Discuss at next appointment. 4.You may take ondansetron (Zofran) alternating with prochlorperzine (compazine) if you exp erience nausea. Zofran may cause headache or constipation. Compazine may make you sleepy. 5. Please make sure you drink plenty of fluids. 6. You must contact the clinic, call the provider ammunition and explosives handler and/or seek immediate medical ca re for fever greater than 100.4 degrees and/or signs of infection or uncontrolled symptoms. 7. If you have non-urgent questions about your care, treatment or symptoms and desire to sp eak with an oncology nurse, our Triage Nurse at [facility] Hematology & Oncology can be r eached during normal business hours at [phone]. documented in this encounter Medications at Time [...] Sore | | | | | | l-sywtjjwxzlDUMMZ-ju | Throat. | | | | | [...] might be diffe rent from the original. [facility] Service: Hematology and Oncology Progress Note Hospital Day: LOS: 5 days Patient Summary: Mr.Dylan Bernard Villarreal a 30 year oldmalewith no significant past medical history other than tobacco use (1/2-1 pack/day 9648-5416) who began experiencing cough, pleuritic ch est [...] 2020. He is currently admitted to receive gcupv8cs DA-R-EPOCH with dose adjustment by 20% for [...] at 06/14/20 195 PRN Medications acetaminophen, albuterol, dfquelaeuwJGXEA-awziey-ecxwrbftw mouthwash (ADS admixture), benzo natate, diphenhydrAMINE, docusate [...] mediastinal, hilar and axillary lymph nodes. He ewdbinccoNY-N-IYUYM April 09-2019 and is now admitted for cycle 4 with escalation of dosages per protocol. He received Rituximab in the outpatient settingOctober 5 and the cytotoxic portion of t reatment beginningtoday with 20% increase in etoposide, doxorubicin and cyclophosphamide. Encounter for chemotherapy The patientinitiated treatmentOctober 2019 with dose adjusted R-EPOCH as follows: Rituximab 375 mg/m IV day 0 (Given June 08) Ghbwefnyj40.4mg/m IV continuous infusion days 1 4 Vincristine 0.4 mg/m IV continuous infusion days 1 4 Doxorubicin 17.28mg/m IV continuous infusion days 1 4 Wwclgafymtzqyuon8421 mg/m IV day 5 Prednisone 60mg/m2 (120mgper Dr. Jeff) PO days 1-5 On a 21 day cycle The patient will receive GCSF following treatment. Will schedule GCSF at [facility] for O ct 14 (will finish chemo evening Jun 15) Today is szkyl2iae8.He will complete chemotherapy this evening. White cell growt h factor has been scheduled at [facility] for June 17. Anemia Lxsosfxcxx38. No intervention required. Infectious prophylaxis Acyclovir 800mg [...] growth factor which is been scheduled at [facility]. ADDENDUM: 1330. The patient called me [...] Full Code KOLE Goetz 06/15/2020 9:36 AM [facility] Hematology & Oncology Portions of this [...] this note might be different from the [facility] Service: Hospitalist Progress Note Pt: [...] at 06/14/20 0844 PRN Medications acetaminophen, albuterol, bzapfpduojRRAGQ-lcbmdv-bmcaslpxw mouthwash (ADS admixture), benzo natate, diphenhydrAMINE, docusate [...] for input(s): IRON, TIBC, PCTSAT, FERRITIN, TSH, WTRDLHMQ32, FOLATE in the last 168 hours. No [...] Stuart MD - 06/14/2020 9:49 AM PDT [facility] Service: Hematology and Oncology Progress Note Hospital Day: LOS: 4 days Patient Summary: Mr.Dylan Bernard Villarreal a 30 year oldmalewith no significant past medical history other than tobacco use (1/2-1 pack/day 7836-6221) who began experiencing cough, pleuritic ch est [...] 2020. He is currently admitted to receive wswjl1td DA-R-EPOCH with dose adjustment by 20% for [...] at 06/14/20 0844 PRN Medications acetaminophen, albuterol, srkmgrkqivVTJFN-lwsydq-kxflyvkav mouthwash (ADS admixture), benzo natate, diphenhydrAMINE, docusate [...] mediastinal, hilar and axillary lymph nodes. He thttpwikrNL-S-QIFCI April 09-2019 and is now admitted for cycle 4 with escalation of dosages per protocol. He received Rituximab in the outpatient settingOctober 5 and the cytotoxic portion of t reatment beginningtoday with 20% increase in etoposide, doxorubicin and cyclophosphamide. Encounter for chemotherapy The patientinitiated treatmentOctober 2019 with dose adjusted R-EPOCH as follows: Rituximab 375 mg/m IV day 0 (Given June 08) Wthejxtsb65.4mg/m IV continuous infusion days 1 4 Vincristine 0.4 mg/m IV continuous infusion days 1 4 Doxorubicin 17.28mg/m IV continuous infusion days 1 4 Edlnweziapztxhhu2923 mg/m IV day 5 Prednisone 60mg/m2 (120mgper Dr. Jeff) PO days 1-5 On a 21 day cycle The patient will receive GCSF following treatment. Will schedule GCSF at [facility] for O ct 14 (will finish chemo evening Jun 15) Today is jmury1zsk4. Anemia Ixxschrlpj73. No intervention required. Infectious prophylaxis Acyclovir 800mg PO BID for viral prophylaxis Nausea On Zofran and Phenergan. Patient may also receive lorazepam as needed. GERD On famotidine and carafate. Code Status: Full Code Wilton Jeff MD 06/14/2020 9:49 AM PDT [facility] Hematology & [...] Lizarraga MD - 06/13/2020 1:39 PM PDT [facility] Service: Hospitalist Progress Note Pt: Asad [...] at 06/12/20 1301 PRN Medications acetaminophen, albuterol, fhktoaxjuzMGGUN-potasy-xmsujjgcz mouthwash (ADS admixture), benzo natate, diphenhydrAMINE, docusate [...] for input(s): IRON, TIBC, PCTSAT, FERRITIN, TSH, HIWYHZZP79, FOLATE in the last 168 hours. No [...] Jeff MD - 06/13/2020 9:33 AM PDT [facility] Service: Hematology and Oncology Progress Note Hospital Day: LOS: 3 days Patient Summary: Mr.Dylan Bernard Villarreal a 30 year oldmalewith no significant past medical history other than tobacco use (1/2-1 pack/day 5935-7006) who began experiencing cough, pleuritic ch est [...] 2020. He is currently admitted to receive zdrbt6el DA-R-EPOCH with dose adjustment by 20% for [...] at 06/12/20 1301 PRN Medications acetaminophen, albuterol, zehnokgidbNIGWJ-htutfq-lesjfpujn mouthwash (ADS admixture), benzo natate, diphenhydrAMINE, docusate [...] mediastinal, hilar and axillary lymph nodes. He zuomcpapaEE-A-SDHPD April 09-2019 and is now admitted for cycle 4 with escalation of dosages per protocol. He received Rituximab in the outpatient settingOctober 5 and the cytotoxic portion of t reatment beginningtoday with 20% increase in etoposide, doxorubicin and cyclophosphamide. Encounter for chemotherapy The patientinitiated treatmentOctober 2019 with dose adjusted R-EPOCH as follows: Rituximab 375 mg/m IV day 0 (Given June 08) Zlzsgwqcp83.4mg/m IV continuous infusion days 1 4 Vincristine 0.4 mg/m IV continuous infusion days 1 4 Doxorubicin 17.28mg/m IV continuous infusion days 1 4 Hoinmyiqehdohzif9942 mg/m IV day 5 Prednisone 60mg/m2 (120mgper Dr. Jeff) PO days 1-5 On a 21 day cycle The patient will receive GCSF following treatment. Will schedule GCSF at [facility] for O ct 14 (will finish chemo evening Jun 15) Today is hztux5avj4. Anemia Holzixurup54.1 with hematocrit 32.8. No intervention required. Infectious prophylaxis Acyclovir 800mg PO BID for viral prophylaxis Nausea On Zofran and Compazine. Patient may also receive lorazepam as needed. GERD On famotidine and carafate. Code Status: Full Code Wilton Jeff MD 06/13/2020 9:51 AM [facility] Hematology & Oncology Portions of this [...] Lizarraga MD - 06/12/2020 1:28 PM PDT [facility] Service: Hospitalist Progress Note Pt: Asad [...] at 06/12/20 1301 PRN Medications acetaminophen, albuterol, wprrviuqcsVXIKT-qodwue-lzyblpyow mouthwash (ADS admixture), benzo natate, diphenhydrAMINE, docusate [...] for input(s): IRON, TIBC, PCTSAT, FERRITIN, TSH, NQEBCXKE57, FOLATE in the last 168 hours. No [...] Galvez MD 06/12/2020 1:28 PM PDT lmira Nickersno ARNP - 06/12/2020 8:30 AM PDTFormatting of this note might be different from the orig [facility] Service: Hematology and Oncology Progress Note Hospital Day: LOS: 2 days Patient Summary: Mr.Dylan Bernard Villarreal a 30 year oldmalewith no significant past medical history other than tobacco use (1/2-1 pack/day 7984-5243) who began experiencing cough, pleuritic ch est [...] 2020. He is currently admitted to receive umvul7kh DA-R-EPOCH with dose adjustment by 20% for [...] at 06/11/20 1321 PRN Medications acetaminophen, albuterol, typfygnhkeGESFX-ccsmnv-xbxudqnri mouthwash (ADS admixture), benzo natate, diphenhydrAMINE, docusate [...] mediastinal, hilar and axillary lymph nodes. He wmjulgqamUS-C-LQBYK April 09-2019 and is now admitted for cycle 4 with escalation of dosages per protocol. He received Rituximab in the outpatient settingOctober 5 and the cytotoxic portion of t reatment beginningtoday with 20% increase in etoposide, doxorubicin and cyclophosphamide. Encounter for chemotherapy The patientinitiated treatmentOctober 2019 with dose adjusted R-EPOCH as follows: Rituximab 375 mg/m IV day 0 (Given June 08) Ijqcihkuy64.4mg/m IV continuous infusion days 1 4 Vincristine 0.4 mg/m IV continuous infusion days 1 4 Doxorubicin 17.28mg/m IV continuous infusion days 1 4 Cwrdqxurgnvmxifw3948 mg/m IV day 5 Prednisone 60mg/m2 (120mgper Dr. Jeff) PO days 1-5 On a 21 day cycle The patient will receive GCSF following treatment. Will schedule GCSF at [facility] for O ct 14 (will finish chemo evening Jun 15) Today is fggkz1nyi7. Anemia Exksrmazqw73.6 with hematocrit 32.8. No intervention required. Should [...] Code Status: Full Code Lisa Nickerson, MSN, MOSAIC TECHNICIAN, TIE MILL OPERATOR-C, AOCNP Oncology Nurse Practitioner 06/12/2020 8:30 AM PDT [facility] Hematology & [...] note might be different from the orig [facility]. [facility] Service: Hospitalist Progress Note Pt: Asad [...] mL (06/11/20 0347) PRN Medications acetaminophen, albuterol, pacbzyzentROECO-yuxuog-mqbsdlvbh mouthwash (ADS admixture), benzo natate, diphenhydrAMINE, docusate [...] for input(s): IRON, TIBC, PCTSAT, FERRITIN, TSH, KQEXHPRH35, FOLATE in the last 168 hours. 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 He is currently admitted to receive jdyow2cl DA-R-EPOCH with dose adjustment by 20% for [...] CERVICAL NODE; Surgeon: She Huang DO; Location: [facility] OR No Known Allergies No current [...] Immunocompromised 240 capsule 5 aluminum & magnesium bzzjemyvh-ehamshxsfre-ysdxngupvuUSIBG-lidocaine Swish and spit 15 mLs every 4 hours as needed for Sore Throat. 600 mL 2 benzonatate (TESSALON) 100 mg capsule Take 100 mg by mouth 3 times daily as needed for Cough. rcjghmownonayux-hhlqngarfjnhkb-xsuudjgh (DUKES MOUTHWASH) suspension Swish and spit 10 [...] mediastinal, hilar and axillary lymph nodes. He clqwrmpmnDF-R-KQLZD April 09-2019 and is now admitted for cycle 4 with escalation of dosages per protocol. He received rituximab in the outpatient setting on June 08 andthe cytotoxic portion of treatment beginningtoday with 20% increase in etoposide, doxorubicin and cyclophosphamide. Encounter for antineoplastic chemotherapy The patient will initiate treatment todaywith dose adjusted R-EPOCH as follows: Rituximab 375 mg/m IV day 0 (given June 08) Lyququwzw32.4mg/m IV continuous infusion days 1 4 Vincristine 0.4 mg/m IV continuous infusion days 1 4 Doxorubicin 17.28mg/m IV continuous infusion days 1 4 Ovhjriqvfnyeonzi1119 mg/m IV day 5 Prednisone 60 mg/m2 ([address] Jeff) PO days 1-5 On a 21 day cycle The patient will receive GCSF following treatment. Today is jsivy3ltj9. Anemia Hemoglobin9.8. No intervention required. Infectious prophylaxis [...] might be different from th e original. [facility] Service: Hospitalist History and Physical Date [...] CERVICAL NODE; Surgeon: She Huang DO; Location: [facility] No Known Allergies No medications [...] Old records reviewed on EMR. Dictation software, Cylance, used which may contain error for similar [...] Groups: other (see comments) Community Agency Name: [facility] Anticipated Changes Related to Illness: none [...] and children kaylen [place]. He goes to [facility]. Independent at baseline. Electronically signed: Pio [...] [place] | | | | | | [address] | | | | | | | | | | | | Marilou Mcmullen, | | | | | | MOSAIC TECHNICIAN [address] | | | [address] | | | | | | [place] [address] | | | | | | [phone] | | | | | | | | +--------+ + + + + | 06/29/ | Appointment | Infusion Therapy | Wilton Jeff MD | | | 2019 | | | [address] | | | | | | [place] | | | | | | [address] | | | | | | | | +--------+ + + + + | 07/14/ | Office | Otolaryngology | She Huang | | | 2019 | Visit | | DO [address]ia [address]ela | | | | | | [address] | | | | | | [place] [address] | | | | | | [phone] | | | | | | | | +--------+ + + + + | 07/20/ | Appointment | Infusion Therapy | Wilton Jeff MD | | | 2019 | | | [address] | | | | | | [place] | | | | | | [address] | | | | | | | | +--------+ + + + + | 07/20/ | Office | Oncology | Wilton Jeff MD | | | 2019 | Visit | | [address] | | | | | | [place] | | | | | | [address] | | | | | | | | +--------+ + + + + | 07/20/ | Appointment | Infusion Therapy | Wilton Jeff MD | | | 2019 | | | [address] | | | | | | [place] | | | | | | [address] | | | | | | | | +--------+ + + + + | 08/17/ | Appointment | Infusion Therapy | Wilton Jeff MD | | | 2020 | | | [address] | | | | | | [place] | | | | | | [address] | | | | | | | | +--------+ + + + + | 08/17/ | Office | Oncology | Wilton Jeff MD | | | 2019 | Visit | | [address] | | | | | | [place] | | | | | | [address] | | | | | | | [...] | | | | | performed at [facility], [address] | | | | | | [facility], | | | | | | [place] [address] | | | | + + + + + + + + | Specimen | + + | Blood | + + + + + + + | Performing | Address | City/State/Zipcode | Phone Number | | Organization | | | | + + + + + | [facility] | [address] | [place] [address] | [phone] | + + + + + CBC [...] | | | Absolute | performed at [facility], [address] | K/uL | LABORATORY | | | | [facility], | | | | | | [place] [address] | | | | + + + + + + + + | Specimen | + + | Blood | + + + + + + + | Performing | Address | City/State/Zipcode | Phone Number | | Organization | | | | + + + + + | [facility] | [address] | [place] [address] | [phone] | + + + + + Comprehensive [...] | >60Comment: GFR <60: | >60 | [facility] | | | GFR | [...] | | | | | | MDRD IDNE traceable | | | | | | equation.Testing | | | | | | performed at [facility] | | | | | | [facility];[place], [place] | | | | | | [address] | | | | + + + + + + + + | Specimen | + + | Blood | + + + + + + + | Performing | Address | City/State/Zipcode | Phone Number | | Organization | | | | + + + + + | [facility] | [address] | [place] [address] | [phone] | + + + + + CBC [...] | | | Absolute | performed at [facility];[address] | [address] | LABORATORY | | | | [address];[place], [place] | | | | | | [address] | | | | + + + + + + + + | Specimen | + + | Blood | + + + + + + + | Performing | Address | City/State/Zipcode | Phone Number | | Organization | | | | + + + + + | [facility] | [address] [facility] [address] | [place] [address] | [phone] | + + + + + Comprehensive [...] 23 | 10 - 65 U/L | [facility] | | | | | | [facility] | | + + + + + + | Estimated | >60Comment: GFR <60: | >60 | [facility] | | | GFR | [...] | | | | | | MDRD IDNE traceable | | | | | | equation.Testing | | | | | | performed at [facility], [address] | | | | | | [facility], | | | | | | [place] [address] | | | | + + + + + + + + | Specimen | + + | Blood | + + + + + + + | Performing | Address | City/State/Zipcode | Phone Number | | Organization | | | | + + + + + | [facility] | [address] | [place] [address] | [phone] | + + + + + CBC [...] | | | Absolute | performed at [facility], [address] | K/uL | LABORATORY | | | | [address], | | | | | | [place] [address] | | | | + + + + + + + + | Specimen | + + | Blood | + + + + + + + | Performing | Address | City/State/Zipcode | Phone Number | | Organization | | | | + + + + + | [facility] | [address] | [place] [address] | [phone] | + + + + + CBC [...] LABORATORY | | | | performed at [facility];[address] | | | | | | [address];[place] | | | | | | [address] | | | | + + + + + + + + | Specimen | + + | Blood | + + + + + + + | Performing | Address | City/State/Zipcode | Phone Number | | Organization | | | | + + + + + | [facility] | [address] | [place] [address] | [phone] | + + + + + Basic [...] | | | | | performed at [facility];[address] | | | | | | [facility];[place], [place] | | | | | | [address] | | | | + + + + + + + + | Specimen | + + | Blood | + + + + + + + | Performing | Address | City/State/Zipcode | Phone Number | | Organization | | | | + + + + + | [facility] | [address] | [place] [address] | [phone] | + + + + + Phosphorus (06/11/2020 3:56 AM PDT) + + + + + + | Component | Value | Ref Range | Performed | Pathologist | | | | | At | Signature | + + + + + + | Phosphorus | 4.6Comment: Testing | 2.3 - 4.8 mg/dL | [facility] | | | | performed at [facility];[address] | | LABORATORY | | | | [address];[place] | | | | | | [address] | | | | + + + + + + + + | Specimen | + + | Blood | + + + + + + + | Performing | Address | City/State/Zipcode | Phone Number | | Organization | | | | + + + + + | [facility] | [address] | [place] [address] | [phone] | + + + + + Magnesium (06/11/2020 3:56 AM PDT) + + + + + + | Component | Value | Ref Range | Performed | Pathologist | | | | | At | Signature | + + + + + + | Magnesium | 1.9Comment: Testing | 1.7 - 2.4 mg/dL | [facility] | | | | performed at [facility];[address] | | LABORATORY | | | | [address];[place], [place] | | | | | | [address] | | | | + + + + + + + + | Specimen | + + | Blood | + + + + + + + | Performing | Address | City/State/Zipcode | Phone Number | | Organization | | | | + + + + + | [facility] | [address] | [place] [address] | [phone] | + + + + + Comprehensive [...] | | | | | | MDRD [facility] traceable | | | | | | equation.Testing | | | | | | performed at [facility];[address] | | | | | | [facility];[place], [place] | | | | | | [address] | | | | + + + + + + + + | Specimen | + + | Blood | + + + + + + + | Performing | Address | City/State/Zipcode | Phone Number | | Organization | | | | + + + + + | [facility] | [address] [facility] | [place] [address] | [phone] | + + + + + CBC [...] LABORATORY | | | | performed at [facility];[address] | | | | | | [address];[place] | | | | | | [address] | | | | | | | | | | + + + + + + + + | Specimen | + + | Blood | + + + + + + + | Performing | Address | City/State/Zipcode | Phone Number | | Organization | | | | + + + + + | [facility] | [address] | [place] [address] | [phone] | + + + + + documented [...] or hypoxemia, | | | Starting [facility] 06/11/20 at 0924, | | | [...] repeat x1, | | | Starting [facility] 06/11/20 at 0924, | | | [...] | | | First dose on [facility] 06/11/20 at | | AM PDT [...] | | | + +---+ | rizatriptan (MAXALT-BILL COLLECTOR) | | | disintegrating tablet 10 mg [...] with | | | NS, Starting [facility] 06/11/20 at 0924 | | + [...]
[~2020-06-23 14:49] MED LIST changes: +AUGMENTIN 875-1 EACH PO; +NICOTINE PATCH1 EACH TD; +PROAIR HFA8.5 GM INH
--- OUTSIDE RECORDS SUMMARY | 2020-06-23 14:52 | XMS ---
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 [facility] has no Care Guidelines for this patient. Tariq VISIT COUNT (12 MO.) 2 [facility] TOTAL 2 NOTE: Visits indicate total known visits. ED/UCC VISIT TRACKING (12 MO.) 06/23/2020 14:49 [facility] TYPE: Emergency COMPLAINT: - FEVER 02/21/2020 11:03 [facility] TYPE: Emergency COMPLAINT: - POSS ABSCESS INPATIENT VISIT TRACKING (12 MO.) 06/10/2020 19:33 [facility] TYPE: Oncology DIAGNOSES: - Localized enlarged lymph nodes - Tobacco use - Dental caries, unspecified - Encounter for antineoplastic chemotherapy - Diffuse large B-cell lymphoma, lymph nodes of multiple sites [facility] TYPE: Internal Medicine DIAGNOSES: - Dental caries, unspecified - Localized enlarged lymph nodes - Diffuse large B-cell lymphoma, lymph nodes of multiple sites - Encounter for antineoplastic chemotherapy 04[facility]29[facility]2020 [facility] [facility] TYPE: Internal Medicine DIAGNOSES: - Unspecified B-cell lymphoma, unspecified site - Diffuse large B-cell lymphoma, lymph nodes of multiple sites - Encounter for antineoplastic chemotherapy - Localized enlarged lymph nodes 04/08/2020 18:57 [facility] TYPE: Internal Medicine DIAGNOSES: - Encounter for antineoplastic chemotherapy - Unspecified B-cell lymphoma, unspecified site - Other Hodgkin lymphoma, lymph nodes of multiple sites - Mediastinal (thymic) large B-cell lymphoma, lymph nodes of mu 02/21/2020 11:04 [facility] TYPE: Observation COMPLAINT: - PNEUMONIA DIAGNOSES: - Tobacco abuse counseling - Gangrene and necrosis of lung - Nicotine dependence, cigarettes, uncomplicated - Hemoptysis [email or web address]
[2020-06-23] MEDS ORDERED: ACYCLOVIR200 MG PO (16:05)
[2020-06-23] MEDS ORDERED: TESSALON PERLE100 MG PO (18:45)
[2020-06-23] MEDS ORDERED: TYLENOL EXTRA500 MG PO (18:46)
[2020-06-23] MEDS ORDERED: PEPCID20 MG PO (18:46)
--- NOTE | 2020-06-24 20:03 | PATH ---
[facility] [address], [place] [address] Signed ORDERING PHYSICIAN: Alin Hu MD PATIENT NAME: CARTER PULIDO GENDER: M : 1990 Prior History: No cases found. SPECIMEN(S): MOLECULAR PATHOLOGY RESULTS: SARS-CoV-2 Not Detected ADDITIONAL NOTES.: The Junior Fusion SARS-CoV-2 Assay is a multiplex real-time PCR (RT-PCR) in vitro diagnostic test intended for the qualitative detection of RNA from SARS-CoV-2 from individuals who meet COVID-19 clinical and/or epidemiological criteria. In general, SARS-CoV-2 RNA can be detected during the acute phase of infection. Positive results indicate the presence of SARS-CoV-2 RNA. Clinical correlation with patient history and other diagnostic information is necessary to determine patient infection status. Positive results do not rule out bacterial infection or co-infection with other viruses. Negative results do not preclude SARS-CoV-2 infection and should not be used as the sole basis for patient management decisions. Negative results must be combined with other clinical observations, patient history, and epidemiological information. The Junior Fusion SARS-CoV-2 Assay is not yet approved or cleared by the [place] FDA. When there are no FDA-approved or cleared tests available, and other criteria are met, FDA can make tests available under an emergency access mechanism called an Emergency Use Authorization (EUA). The EUA for this test is supported by the [place] of Health and Human Service's (HHS's) declaration that circumstances exist to justify the emergency use of in vitro diagnostics for the detection and/or diagnosis of the virus that causes COVID-19. This EUA will remain in effect for the duration of the COVID-19 declaration justifying emergency of IVDs, unless it is terminated or revoked by FDA, after which the test may no longer be used. The Junior Fusion SARS-CoV-2 Assay is for use only under EUA PATIENT NAME: CARTER PULIDO PATHOLOGY DATE OF : [birth year] REPORT #: [id number] PHYSICIAN: NORMA BROOKS PCP: MURPHY MTAHUR MD REPORT IS CONFIDENTIAL AND NOT TO BE RELEASED WITHOUT AUTHORIZATION [facility] [address], [place] [address] Signed in laboratories certified under the Clinical Laboratory Improvement Amendments of 1988 (CLIA) to perform high complexity tests. [facility] is certified under CLIA to perform high complexity clinical laboratory testing. PERFORMING LABORATORY.: Molecular testing was performed by [facility] [place] [address] (Block Bolter Mule Operator: Arnie Petersen D.O.; CLIA#: [id number]) Diagnostician: System Interface Pathologist Electronically Signed 06/24/2020 Copies: ~ PATIENT NAME: CARTER PULIDO PATHOLOGY DATE OF : [birth year] REPORT #: [id number] PHYSICIAN: NORMA BROOKS PCP: MURPHY MATHUR MD REPORT IS CONFIDENTIAL AND NOT TO BE RELEASED WITHOUT AUTHORIZATION
[2020-06-25] MEDS ORDERED: PREDNISONE20 MG PO (15:03)
[2020-06-25] MEDS ORDERED: ONDANSETRON HCL8 MG PO (15:04)
[2020-06-25] MEDS ORDERED: LIDOCAINE-PRILO30 GM TOP (15:04)
[2020-06-25] MEDS ORDERED: UNISOM25 MG PO (15:05)
[2020-06-25] MEDS ORDERED: ALBUTEROL2.5 MG/3 M INH (15:13)
[2020-06-28] MEDS ORDERED: ATROVENT HFA12.9 GM INH (09:12)
[2020-06-28] MEDS ORDERED: AUGMENTIN 875-1 EACH PO (09:13)
== END 2020-06-28 11:15 | disposition home or self-care (01) | DRG 871 ==
LOC: ED 14:49 → CCU 17:57 → MS 06-25 12:30
PROVIDERS: ADMIT Internal Medicine; ATTEND Internal Medicine
DX: A40.8 Other streptococcal sepsis (principal); D61.810 Antineoplastic chemotherapy induced pancytopenia; J15.6 Pneumonia due to other Gram-negative bacteria; C83.38 Diffuse large B-cell lymphoma, lymph nodes of multiple sites; B37.7 Candidal sepsis; Z20.828 Contact with and (suspected) exposure to other viral communicable diseases; T45.1X5A Adverse effect of antineoplastic and immunosuppressive drugs, initial encounter; F32.9 Major depressive disorder, single episode, unspecified; E87.6 Hypokalemia; E83.42 Hypomagnesemia; Z79.899 Other long term (current) drug therapy; Z87.891 Personal history of nicotine dependence
CPT/HCPCS: 36415; 71045; 71046; 80048; 80053; 80202; 81001; 83605; 83735; 85025; 87070; 87147; 87205; 87449; 87502; 87899; 94640; 94667; 94668; 94760; 96361; 96374; 96375; 99284-25; C9803; J0456; J0692; J0780; J1885; J2060; J2405; J2550; J3370; J3475; J3480; J7030; J7060; J7121

== ENCOUNTER 2022-04-30 17:16 | Emergency (ER) | payer OTHER ==
[~2022-04-30] VITALS: Ht 180.3 cm; Wt 113.4 kg
[~2022-04-30 17:16] MED LIST changes: +ACYCLOVIR200 MG PO; +ALBUTEROL2.5 MG/3 M INH; +ATROVENT HFA12.9 GM INH; +LIDOCAINE-PRILO30 GM TOP; +ONDANSETRON HCL8 MG PO; +PEPCID20 MG PO; +PREDNISONE20 MG PO; +TESSALON PERLE100 MG PO; +TYLENOL EXTRA500 MG PO; +UNISOM25 MG PO
[2022-04-30] MEDS ORDERED: CEPHALEXIN500 M1 PO ×2 (19:08→19:58)
[2022-04-30] MEDS ORDERED: HYDROCODON-ACE1 EA11 PO ×2 (19:08→19:58)
== END 2022-04-30 19:50 | disposition home or self-care (01) ==
LOC: ED 17:16
DX: S51.811A Laceration without foreign body of right forearm, initial encounter (principal); S16.1XXA Strain of muscle, fascia and tendon at neck level, initial encounter; S40.011A Contusion of right shoulder, initial encounter; Z87.891 Personal history of nicotine dependence; Z79.899 Other long term (current) drug therapy; V86.96XA Unspecified occupant of dirt bike or motor/cross bike injured in nontraffic accident, initial encounter
CPT/HCPCS: 12001; 36415; 70450; 70491; 71045; 73030; 73090; 80053; 83605; 85025; 99284-25; A9270; G0480; J1170; J1885; J2405; Q9967